=== PATIENT | female | born 1945 | race Caucasian/White ===

== ENCOUNTER → 2016-11-13 | Outpatient (CLI) | payer MEDICARE ==
[2016-11-13 11:25] LABS: Aty Lym Flag Slight; CH 30.9; CHCM 32.5; HCT 35.1 % (34.0-46.0); HDW 2.48; MCH 32.8 pg (25.0-35.0); MCHC 34.3 g/dL (31.0-37.0); MCV 95.6 fL (80.0-100.0); Mean Platelet Volume 7.8; RBC 3.68 m/uL (3.80-5.40); RDW 12.5 % (11.5-15.5); WBC 5.3 k/uL (3.8-10.6); WBC (Perox) 6.11
[2016-11-13 12:02] LABS: Calcium 9.7 mg/dL (8.4-10.2); Potassium 4.6 mmol/L (3.5-5.1); Total Protein 8.5 g/dL (6.3-8.2)
[2016-11-13 12:15] LABS: Hemoglobin A1C 5.2 % (4.2-6.1)
[2016-11-13 12:39] LABS: Add Differential Manual Differential
[2016-11-13 12:41] LABS: Manual Review Performed; Nucleated Red Blood Cells 0 /100 WBC (0-0); Total Cells Counted 100
== END | disposition home or self-care (01) ==
LOC: LABWHC1 10:12
PROVIDERS: ATTEND Internal Medicine Critical Care Medicine
DX: Z00.00 Encounter for general adult medical examination without abnormal findings (principal); J45.909 Unspecified asthma, uncomplicated; K21.9 Gastro-esophageal reflux disease without esophagitis; M19.90 Unspecified osteoarthritis, unspecified site; M81.0 Age-related osteoporosis without current pathological fracture
CPT/HCPCS: 36415; 80053; 80061; 82306; 83036; 84439; 84443; 85025

== ENCOUNTER → 2016-11-19 | Outpatient (CLI) | payer MEDICARE ==
--- NOTE | 2016-11-21 10:54 | MM ---
Reason for exam: screening (asymptomatic). Last mammogram was performed 1 year ago. History: Patient is postmenopausal and is nulliparous. Physical Findings: A clinical breast exam by your physician is recommended on an annual basis and results should be correlated with mammographic findings. MG 3D Screening Mammo W/Cad Bilateral CC and MLO view(s) were taken. Prior study comparison: November 14, 2015, bilateral MG 3d screening mammo w/cad. November 25, 2008, bilateral digital screening mammogram. The breast tissue is heterogeneously dense. This may lower the sensitivity of mammography. There is chronic nodularity bilaterally. There is no dominant lesion. No significant changes when compared with prior studies. ASSESSMENT: Benign, BI-RAD 2 RECOMMENDATION: Routine screening mammogram of both breasts in 1 year.
== END | disposition home or self-care (01) ==
LOC: RADMAMWWP 12:49
PROVIDERS: ATTEND Internal Medicine Critical Care Medicine
DX: Z12.31 Encounter for screening mammogram for malignant neoplasm of breast (principal)
CPT/HCPCS: 77063; G0202

== ENCOUNTER → 2016-12-07 | Outpatient (CLI) | payer MEDICARE ==
--- NOTE | 2016-12-07 16:00 | BD ---
EXAMINATION TYPE: MG DEXA axial skeleton. DATE OF EXAM: 12/07/2016 COMPARISON: 11.25.2007 CLINICAL HISTORY: M19.90 OSTOARTHRITIS, M81.0 OSTEOPOROSIS Height: 63.8 Weight: 185 FRAX RISK QUESTIONS: Alcohol (3 or more units per day): NO Family History (Parent hip fracture): POSSIBLY Glucocorticoids (More than 3mos): NO (Ex: prednisone, prednisolone, methylprednisolone, dexamethasone, and hydrocortisone). History of Fracture in Adulthood: YES Secondary Osteoporosis: NO 1. Type 1 Diabetes: NO 2. Hyperthyroidism: NO 3. Menopause before 45: NO 4. Malnutrition: NO 5. 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 COMPRESSION FXS IN LUMBAR SPINE.....SPINAL STENOSIS...SPINE NOT SCANNED Bone mineral density about the R hip (g/cm2): 0.826 Bone mineral density about the L hip (g/cm2): 0.858 T Score values are as follows: -----R Neck: -1.6 -----L Neck: -1.6 -----R Total: -1.4 -----L Total: -1.2 Bone mineral density has: Decreased -6.0ince study of: 11.25.2007 FRAX%'S: THERE IS A 25.2% CHANCE OF A MAJOR OSTEOPOROTIC FX AND A 9.9% CHANCE OF A HIP FX.....PRO BABILITY IN 10 YRS TIME IMPRESSION: Osteopenia (T Score between -2.5 and -1 as noted by T score values There is slightly increased risk of fracture and the patient may be considered for treatment. Re-Screen 2-5 years FOR BOTH OF HER HIPS. Bone density is diminished 6% within the bilateral hips from 11/25/2007 NOTE: T-SCORE=SD OF THE YOUNG ADULT MEAN.
== END | disposition home or self-care (01) ==
LOC: RADBDWWP 09:22
PROVIDERS: ATTEND Internal Medicine Critical Care Medicine
DX: M85.88 Other specified disorders of bone density and structure, other site (principal)
CPT/HCPCS: 77080

== ENCOUNTER → 2018-11-24 | Outpatient (CLI) | payer MEDICARE ==
[2018-11-24 12:44] LABS: Basophils % (A) 1 %; Eosinophils % (A) 20 %; HCT 33.2 % (34.0-46.0); HGB 10.7 gm/dL (11.4-16.0); Lymphocytes # (A) 1.1 k/uL (1.0-4.8); Lymphocytes % (A) 23 %; MCH 31.6 pg (25.0-35.0); MCHC 32.1 g/dL (31.0-37.0); MCV 98.4 fL (80.0-100.0); Mean Platelet Volume 7.1; Monocytes # (A) 0.4 k/uL (0-1.0); Monocytes % (A) 8 %; Neutrophils # (A) 2.1 k/uL (1.3-7.7); Neutrophils % (A) 45 %; Platelet Count 158 k/uL (150-450); RBC 3.37 m/uL (3.80-5.40); RDW 12.9 % (11.5-15.5); WBC 4.7 k/uL (3.8-10.6)
[2018-11-24 16:07] LABS: T4, Free (Free Thyroxine) 0.9 ng/dL (0.80-1.80)
[2018-11-24 16:27] LABS: African American GFR (CKD) 72.5 (60.0-200.0); Albumin 3.6 g/dL (3.80-4.90); Albumin/Globulin Ratio 0.95 (1.60-3.17); Anion Gap 4.6 mmol/L (4.00-12.00); BUN/Creat Ratio 32.22 Ratio (12.00-20.00); Calcium 9.1 mg/dL (8.7-10.3); Carbon Dioxide 26.4 mmol/L (21.6-31.8); Globulin 3.8 g/dL (1.6-3.3); LDL Cholesterol,Calculated 96.2 mg/dL (0.0-131.0); Potassium 4.4 mmol/L (3.5-5.5); Total Bilirubin 0.7 mg/dL (0.2-1.2); Total Protein 7.4 g/dL (6.2-8.2); Uric Acid 4.5 mg/dL (2.9-7.7); VLDL Calculation 12.8 mg/dL (5.00-40.00)
[2018-11-24 17:17] LABS: Hemoglobin A1C 5.3 % (4.0-6.0)
[2018-11-25 19:41] LABS: Iron Saturation 27.99 (12.00-45.00)
== END | disposition home or self-care (01) ==
LOC: LABWHC1 11:42
PROVIDERS: ATTEND Internal Medicine Critical Care Medicine
DX: Z00.00 Encounter for general adult medical examination without abnormal findings (principal); J45.909 Unspecified asthma, uncomplicated; E78.5 Hyperlipidemia, unspecified; E55.9 Vitamin D deficiency, unspecified; M81.0 Age-related osteoporosis without current pathological fracture
CPT/HCPCS: 36415; 80053; 80061; 82306; 82728; 83036; 83540; 83550; 84439; 84443; 84550; 85025

== ENCOUNTER → 2018-11-28 | Outpatient (CLI) | payer MEDICARE ==
--- NOTE | 2018-12-02 08:10 | MM ---
Reason for exam: screening (asymptomatic). Last mammogram was performed 2 years ago. History: Patient is postmenopausal and is nulliparous. Took hormonal contraceptives for 2 years. Physical Findings: A clinical breast exam by your physician is recommended on an annual basis and results should be correlated with mammographic findings. MG 3D Screening Mammo W/Cad Bilateral CC and MLO view(s) were taken. Prior study comparison: November 19, 2016, bilateral MG 3d screening mammo w/cad. November 14, 2015, bilateral MG 3d screening mammo w/cad. No significant changes when compared with prior studies. ASSESSMENT: Benign, BI-RAD 2 RECOMMENDATION: Routine screening mammogram of both breasts in 1 year.
== END | disposition home or self-care (01) ==
LOC: RADMAMWWP 09:45
PROVIDERS: ATTEND Internal Medicine Critical Care Medicine
DX: Z12.31 Encounter for screening mammogram for malignant neoplasm of breast (principal)
CPT/HCPCS: 77063; 77067

== ENCOUNTER → 2019-11-05 | Outpatient (CLI) | payer MEDICARE ==
[2019-11-05 15:00] LABS: Basophils % (A) 1 %; Eosinophils # (A) 0.9 k/uL (0-0.7); Eosinophils % (A) 21 %; Hypochromasia Slight; Lymphocytes # (A) 1.2 k/uL (1.0-4.8); Lymphocytes % (A) 30 %; MCH 16.2 pg (25.0-35.0); MCV 104.1 fL (80.0-100.0); Macrocytosis Slight; Mean Platelet Volume 7.8; Monocytes # (A) 0.3 k/uL (0-1.0); Monocytes % (A) 7 %; Neutrophils # (A) 1.6 k/uL (1.3-7.7); Neutrophils % (A) 37 %; Platelet Count 130 k/uL (150-450); RBC 3.36 m/uL (3.80-5.40); RDW 13.2 % (11.5-15.5); WBC 4.2 k/uL (3.8-10.6)
[2019-11-05 15:16] LABS: MCHC 15.6 g/dL (31.0-37.0)
[2019-11-05 15:17] LABS: HGB 10.7 gm/dL (11.4-16.0)
[2019-11-06 00:53] LABS: Albumin 3.4 g/dL (3.80-4.90); Albumin/Globulin Ratio 0.83 (1.60-3.17); Anion Gap 6.7 mmol/L (4.00-12.00); BUN/Creat Ratio 25.56 Ratio (12.00-20.00); Bilirubin, Conjugated 0.4 mg/dL (0.20-0.40); Bilirubin,Unconjugated 0.9 mg/dL; Calcium 9.4 mg/dL (8.7-10.3); Carbon Dioxide 26.3 mmol/L (21.6-31.8); Chol/HDL Ratio 2.91; Globulin 4.1 g/dL (1.6-3.3); LDL Cholesterol,Calculated 68.6 mg/dL (0.0-131.0); Non-African American GFR(CKD) 62.1 (60.0-200.0); Total Bilirubin 1.3 mg/dL (0.2-1.2); Total Protein 7.5 g/dL (6.2-8.2); VLDL Calculation 15.4 mg/dL (5.00-40.00)
== END | disposition home or self-care (01) ==
LOC: LABWHC1 13:48
PROVIDERS: ATTEND Internal Medicine Critical Care Medicine
DX: Z00.00 Encounter for general adult medical examination without abnormal findings (principal); E78.5 Hyperlipidemia, unspecified; R05 Cough; E55.9 Vitamin D deficiency, unspecified; Z79.899 Other long term (current) drug therapy
CPT/HCPCS: 36415; 80053; 80061; 82248; 84439; 84443; 85025

== ENCOUNTER → 2019-11-10 | Outpatient (CLI) | payer MEDICARE ==
[2019-11-10 12:19] LABS: Appearance,Urine Cloudy (Clear); Bacteria,Urine Moderate /hpf; Bilirubin,Urine Negative (Negative); Blood,Urine Negative (Negative); Color,Urine Light Yellow; Glucose,Urine (UA) Negative (Negative); Ketones,Urine Negative (Negative); Leukocyte Esterase,Urine Large (Negative); Nitrite,Urine Positive (Negative); Protein,Urine Negative (Negative); RBC,Urine 2 /hpf (0-5); Specific Gravity,Urine 1.008 (1.001-1.035); Urobilinogen,Urine <2.0 mg/dL (<2.0); WBC,Urine >182 /hpf (0-5)
[2019-11-10 17:52] LABS: % Iron Saturation 33.61 (12.00-45.00)
[2019-11-10 18:00] LABS: Ferritin 171.5 ng/mL (10.0-291.0)
== END | disposition home or self-care (01) ==
LOC: LABWHC1 11:19
PROVIDERS: ATTEND Internal Medicine Critical Care Medicine
DX: D64.9 Anemia, unspecified (principal); R53.83 Other fatigue; R82.998 Other abnormal findings in urine
CPT/HCPCS: 36415; 81001; 82728; 83540; 83550; 87077; 87086; 87186

== ENCOUNTER → 2020-02-09 | Outpatient (CLI) | payer MEDICARE ==
--- NOTE | 2020-02-11 10:38 | MM ---
Reason for exam: screening (asymptomatic). Last mammogram was performed 1 year and 2 months ago. History: Patient is postmenopausal and is nulliparous. Took hormonal contraceptives for 2 years. Physical Findings: A clinical breast exam by your physician is recommended on an annual basis and results should be correlated with mammographic findings. MG 3D Screening Mammo W/Cad Bilateral CC and MLO view(s) were taken. Prior study comparison: November 28, 2018, bilateral MG 3d screening mammo w/cad. November 19, 2016, bilateral MG 3d screening mammo w/cad. The breast tissue is heterogeneously dense. This may lower the sensitivity of mammography. No significant changes when compared with prior studies. ASSESSMENT: Benign, BI-RAD 2 RECOMMENDATION: Routine screening mammogram of both breasts in 1 year.
== END | disposition home or self-care (01) ==
LOC: RADMAMWWP 13:08
PROVIDERS: ATTEND Internal Medicine Critical Care Medicine
DX: Z12.31 Encounter for screening mammogram for malignant neoplasm of breast (principal)
CPT/HCPCS: 77063; 77067

== ENCOUNTER → 2020-10-24 | Outpatient (CLI) | payer MEDICARE ==
[2020-10-24 15:59] LABS: HCT 33.2 % (37.2-46.3); HGB 10.4 g/dL (12.0-15.0); MCH 32.9 pg (27.0-32.0); MCHC 31.3 g/dL (32.0-37.0); MCV 105.1 fL (80.0-97.0); Mean Platelet Volume 11.6 fL (9.5-12.2); Platelet Count 129 X 10*3/uL (140-440); RBC 3.16 X 10*6/uL (4.10-5.20)
[2020-10-24 18:08] LABS: Basophils # (A) 0.04 X 10*3/uL (0.00-0.10); Basophils % (A) 0.8 %; Monocytes # (A) 0.67 X 10*3/uL (0.20-1.00); Monocytes % (A) 13.4 %; Neutrophils # (A) 1.68 X 10*3/uL (1.80-7.70); Neutrophils % (A) 33.6 %
[2020-10-24 19:03] LABS: African American GFR (CKD) 62.9 (60.0-200.0); Albumin 3.2 g/dL (3.80-4.90); Albumin/Globulin Ratio 0.78 (1.60-3.17); Anion Gap 5.6 mmol/L (4.00-12.00); Calcium 9.4 mg/dL (8.7-10.3); Carbon Dioxide 23.4 mmol/L (21.6-31.8); Chol/HDL Ratio 2.72; Globulin 4.1 g/dL (1.6-3.3); LDL Cholesterol,Calculated 70.8 mg/dL (0.0-131.0); Non-African American GFR(CKD) 54.3 (60.0-200.0); Potassium 3.6 mmol/L (3.5-5.5); Total Protein 7.3 g/dL (6.2-8.2); VLDL Calculation 10.2 mg/dL (5.00-40.00)
[2020-10-24 19:13] LABS: T4, Free (Free Thyroxine) 0.8 ng/dL (0.80-1.80)
== END | disposition home or self-care (01) ==
LOC: LABWHC1 08:50
PROVIDERS: ATTEND Internal Medicine Critical Care Medicine
DX: Z00.00 Encounter for general adult medical examination without abnormal findings (principal); E78.5 Hyperlipidemia, unspecified; J45.909 Unspecified asthma, uncomplicated; M19.90 Unspecified osteoarthritis, unspecified site; D50.9 Iron deficiency anemia, unspecified; E55.9 Vitamin D deficiency, unspecified
CPT/HCPCS: 36415; 80053; 80061; 82306; 83036; 84439; 84443; 85025

== ENCOUNTER → 2020-11-18 | Outpatient (CLI) | payer MEDICARE ==
--- NOTE | 2020-11-21 14:57 | BD ---
EXAMINATION TYPE: Axial Bone Density DATE OF EXAM: 11/18/2020 COMPARISON: NONE CLINICAL HISTORY: Osteoporosis Height: 5 FT 4 1/4 IN Weight: 157 FRAX RISK QUESTIONS: Alcohol (3 or more units per day): NO Family History (Parent hip fracture): NO Glucocorticoids (More than 3mos): NO (Ex: prednisone, prednisolone, methylprednisolone, dexamethasone, and hydrocortisone). History of Fracture in Adulthood: YES Secondary Osteoporosis: 1. Type 1 Diabetes: NO 2. Hyperthyroidism: NO 3. Menopause before 45: NO 4. Malnutrition: NO 5. Chronic liver disease: NO Rheumatoid Arthritis: NO Current Tobacco Use: NO RISK FACTORS HISTORY OF: Surgery to Spine/Hip(right/left)/Wrist (right/left): NO Family History of Osteoporosis: UNSURE Active: YES Diet low in dairy products/other sources of calcium: NO Postmenopausal woman: IN HER 50'S Take estrogen and/or progesterone medications: NO Lost more than 2 inches in height since high school: YES MEDICATIONS: Additional Medications: NONE EXAM MEASUREMENTS: Bone mineral densitometry was performed using the [employer] System. Bone mineral density as measured about the Lumbar spine is: ----- L1-L4(G/cm2): 0.996 T Score Values are as follows: ----- L2: -1.6 ----- L3: -1.3 ----- L4: -1.8 ----- L1-L4: -1.5 Bone mineral density has: DECREASED -11. 4% since study of: 2017 Bone mineral density about the R hip (g/cm2): 0.776 Bone mineral density about the L hip (g/cm2): 0.777 T Score values are as follows: -----R Neck: -1.9 -----L Neck: -1.9 -----R Total: -19 -----L Total: -1.6 Bone mineral density has: Decreased 6.1 % since study of: 2017 IMPRESSION: Findings are consistent with osteopenia. Bone mineral density has decreased as described above. The r isk for major osteoporotic fracture is 34.6%. There is for hip fracture is 20.3%. This is based on 10 year probability of fracture. Medical treatment should be considered. Repeat evaluation in 2-5 years .
== END | disposition home or self-care (01) ==
LOC: RADBDWWP 14:06
PROVIDERS: ATTEND Internal Medicine Critical Care Medicine
DX: M85.89 Other specified disorders of bone density and structure, multiple sites (principal)
CPT/HCPCS: 77080

== ENCOUNTER → 2020-12-27 | Outpatient (CLI) | payer MEDICARE ==
[2020-12-27 15:17] LABS: HCT 30.5 % (34.0-46.0); HGB 10.3 gm/dL (11.4-16.0); MCH 35.4 pg (25.0-35.0); MCHC 33.7 g/dL (31.0-37.0); MCV 105.2 fL (80.0-100.0); Macrocytosis Slight; Mean Platelet Volume 8.4; Platelet Count 104 k/uL (150-450); RDW 13.2 % (11.5-15.5); WBC 6.1 k/uL (3.8-10.6)
[2020-12-27 15:31] LABS: Potassium 3.9 mmol/L (3.5-5.1)
== END | disposition home or self-care (01) ==
LOC: LABPAT 14:09
PROVIDERS: ATTEND Internal Medicine Interventional Cardiology
DX: Z01.812 Encounter for preprocedural laboratory examination (principal); R07.9 Chest pain, unspecified
CPT/HCPCS: 36415; 80051; 82565; 84520; 85027

== ENCOUNTER 2021-01-03 10:19 | Day surgery (SDC) | payer MEDICARE ==
[2020-12-30 11:11] VITALS: BMI 26.4
[~2021-01-03 10:19] MED LIST: ALPRAZolam 0.25 MG TAB PO PRN; ALPRAZolam 0.5 MG TAB PO PRN; ASPIRIN 325 MG TAB PO STA; HEPARIN SODIUM,PORCINE 10,000 UNIT in SODIUM CHLORIDE 0.9% 1,000 ML IRRIGATION PRN; HEPARIN SODIUM,PORCINE 2,500 UNIT in SODIUM CHLORIDE 0.9% 250 ML IRRIGATION PRN; NITROGLYCERIN SL TABS 0.4 MG TAB SUBLINGUAL PRN; SODIUM CHLORIDE 0.9% 1,000 ML in EMPTY BAG 1 BAG IV ONE
[2021-01-03] MEDS ORDERED: SODIUM CHLORIDE 0.9% 1,000 ML IV ONE (10:43)
[2021-01-03 11:08] LABS: HCT 35.4 % (34.0-46.0); HGB 11.8 gm/dL (11.4-16.0); MCH 34.4 pg (25.0-35.0); MCHC 33.2 g/dL (31.0-37.0); MCV 103.4 fL (80.0-100.0); Macrocytosis Slight; Mean Platelet Volume 7.7; Platelet Count 134 k/uL (150-450); RBC 3.42 m/uL (3.80-5.40); WBC 5.8 k/uL (3.8-10.6)
[2021-01-03 11:09] VITALS: RESP 16; TEMP 99
[2021-01-03] MEDS ORDERED: LIDOCAINE 1% INJ 10MG/ML (20 ML MDV) ONE (11:53)
[2021-01-03] MEDS ORDERED: VERAPAMIL 2.5 MG/ML 2 ML AMP ONE (11:59)
[2021-01-03 12:17] LABS: Band Neutrophils % 1 %; Lymphocytes # (M) 2.09 k/uL (1.0-4.8); Monocytes # (M) 0.99 k/uL (0-1.0); Neutrophils % (M) 27 %; Nucleated Red Blood Cells 0 /100 WBC (0-0); Total Cells Counted 100
[2021-01-03] MEDS ORDERED: fentaNYL (PF) 50 MCG/ML 2 ML AMP ONE (12:24)
[2021-01-03] MEDS ORDERED: HEPARIN SODIUM 1,000 UN/ML (10ML VL) ONE (12:24)
[2021-01-03] MEDS ORDERED: MIDAZOLAM 2 MG/2 ML VIAL IV ONE (12:27)
[2021-01-03] MEDS ORDERED: LIDOCAINE 1% INJ 10MG/ML (20 ML MDV) SQ ONE (12:28)
[2021-01-03] MEDS ORDERED: VERAPAMIL SYRINGE (5 MG/10 ML) INTRAARTER ONE (12:29)
[2021-01-03] MEDS ORDERED: HEPARIN SODIUM 1,000 UN/ML (10ML VL) IV ONE (12:34)
[2021-01-03] MEDS ORDERED: IOPAMIDOL-370 125ML BTL INJ ONE (12:36)
[2021-01-03] MEDS ORDERED: RX INFO: IV CONTRAST WAS GIVEN 1 EACH MISC MISCELLANE PRN (12:43)
[2021-01-03] MEDS ORDERED: SODIUM CHLORIDE 0.9% 1,000 ML IV SCH (12:45)
--- NOTE | 2021-01-03 13:15 | LTR ---
DATE OF SERVICE: 01/03/[address] Hood: Ms. Basia Hardy underwent today heart catheterization and that revealed mild nonobstructive coronary artery disease. I want to thank you for allowing me to participate in her care and please do not hesitate to call if you have any question or concerns. Sincerely, MMBASILL / IJN: [id number] /
--- NOTE | 2021-01-03 13:15 | CC ---
CARDIAC CATHETERIZATION REPORT DATE OF SERVICE: January 03, 2021. PERFORMING PHYSICIAN: Pérez Gonzalez MD. PROCEDURE PERFORMED: 1. Selective right and left coronary angiogram. 2. Left heart catheterization. INDICATION: Newly diagnosis cardiomyopathy. COMPLICATION: None. LEVEL OF SEDATION: Moderate with sedation length of 12 minutes. PROCEDURE DESCRIPTION: After obtaining an informed consent, the patient was brought to the cardiac biological lab technician. The right radial artery was cannulated using micropuncture technique, the micropuncture wire passed easily. Then I placed a 6-Polish sheath at the right radial artery. I gave the patient 2 mg of verapamil IA and 5000 units of heparin IV. Selective right and left coronary angiogram performed using JR4 and JL3.5 catheters. After that, I did left heart catheterization using the JR4 catheter which crossed the aortic valve. I did after that pullback across the valve. The procedure was completed without any complication. SELECTIVE CORONARY ANGIOGRAM: 1. The RCA is a large caliber vessel. It is a dominant vessel. The RCA has mild disease in the proximal portion. In the midportion it is angiographically normal. After that, bifurcates into PDA and PLV branches both appeared to be angiographically normal. 2. The left main is angiographically normal. Bifurcates into an LCX and LAD. 3. The LCX is a large caliber vessel and it is a nondominant vessel. The LCX appeared to be angiographically normal. It gives rise into a large OM branch which seems to be angiographically normal. 4. The LAD is a large caliber vessel. The LAD appeared to be also angiographically normal and gives rise into a large diagonal branch which seems to be angiographically. HEMODYNAMICS: The LVEDP was 10 to 12 mmHg without significant gradient across the aortic valve. CONCLUSION: 1. Mild nonobstructive disease involving the right coronary artery. 2. Normal LVEDP. POSTPROCEDURE MANAGEMENT: Medical treatment and follow up with the patient. MMODL / IJN: [id number] /
[2021-01-03 16:56] VITALS: BP 145/67; PULSE 69
== END 2021-01-03 17:14 | disposition home or self-care (01) ==
LOC: CATHCVL 10:19
PROVIDERS: ATTEND Internal Medicine Interventional Cardiology
DX: I42.9 Cardiomyopathy, unspecified (principal)
CPT/HCPCS: 93458; 85025; C1894; J2250; J2001; J1644; Q9967

== ENCOUNTER 2021-04-27 06:15 | Day surgery (SDC) | payer MEDICARE ==
[2021-04-25 14:07] VITALS: BMI 26.6
[2021-04-27 06:51] VITALS: TEMP 98.5
[2021-04-27] MEDS ORDERED: LACTATED RINGERS 1,000 ML IV ONE (07:00)
[2021-04-27] MEDS ORDERED: LIDOCAINE 1% INJ 10MG/ML (20 ML MDV) ONE (07:04)
[2021-04-27] MEDS ORDERED: PROPOFOL 10 MG/ML 20 ML VIAL IV ONE (07:04)
[2021-04-27] MEDS ORDERED: LACTATED RINGERS 1,000 ML IV SCH (07:12)
[2021-04-27] MEDS ORDERED: LIDOCAINE 1% (10MG/ML) FOR IV START INTRADERMA PRN (07:12)
[2021-04-27 07:26] VITALS: BP 125/72; PULSE 82; RESP 16
--- NOTE | 2021-04-27 09:46 | PCN ---
PROCEDURE NOTE DATE OF PROCEDURE: 04/27/2021. PREOP DIAGNOSIS: Multiple myeloma. POSTOP DIAGNOSIS: Multiple myeloma. ANESTHESIA: Local with IV systemic sedation. DETAILS: Utilizing a sterile technique, the skin overlying the right iliac crest was prepared with Betadine and alcohol. After adequate sterile draping, 1% local anesthesia and systemic sedation size 11 4 inch Jamshidi needle was utilized to access the periosteum with ease. A total of 16 mL of aspirate and a crushed 4 mm bone core biopsies were obtained. The patient tolerated the procedure very well. There was no immediate procedure related complications. TOTAL BLOOD LOSS: Less than 1 mL. Results pending. MMODL / IJN: [id number] /
[2021-04-27 12:23] LABS: HCT 38.2 % (34.0-46.0); HGB 12.1 gm/dL (11.4-16.0); MCH 33.8 pg (25.0-35.0); MCHC 31.8 g/dL (31.0-37.0); MCV 106.5 fL (80.0-100.0); Macrocytosis Moderate; Mean Platelet Volume 9.7; Platelet Count 145 k/uL (150-450); RBC 3.59 m/uL (3.80-5.40); RDW 13.9 % (11.5-15.5); Reticulocyte % 1.9 % (0.5-2.0); WBC 5.7 k/uL (3.8-10.6)
[2021-04-27 13:02] LABS: Basophils # (M) 0.06 k/uL (0-0.2); Eosinophils # (M) 0.91 k/uL (0-0.7); Lymphocytes # (M) 1.37 k/uL (1.0-4.8); Monocytes # (M) 0.34 k/uL (0-1.0); Neutrophils # (M) 3.02 k/uL (1.3-7.7); Neutrophils % (M) 53 %; Nucleated Red Blood Cells 0 /100 WBC (0-0); Total Cells Counted 100
[2021-04-27 13:03] LABS: Anisocytosis (M) Present; Poikilocytosis (M) Present
== END 2021-04-27 07:50 | disposition home or self-care (01) ==
LOC: OR 06:15
PROVIDERS: ATTEND Internal Medicine Hematology & Oncology
DX: D69.6 Thrombocytopenia, unspecified (principal); C90.00 Multiple myeloma not having achieved remission; D64.89 Other specified anemias; D47.2 Monoclonal gammopathy; Z98.890 Other specified postprocedural states; Z80.6 Family history of leukemia; Z86.19 Personal history of other infectious and parasitic diseases; Z79.899 Other long term (current) drug therapy; Z88.0 Allergy status to penicillin; Z88.8 Allergy status to other drugs, medicaments and biological substances
CPT/HCPCS: 85025; 85045; 38222; J2001; J2704

== ENCOUNTER → 2021-11-10 | Outpatient (CLI) | payer MEDICARE ==
[2021-11-10 12:01] LABS: HCT 35.7 % (34.0-46.0); HGB 11.6 gm/dL (11.4-16.0); Hypochromasia Slight; MCHC 32.4 g/dL (31.0-37.0); MCV 108.1 fL (80.0-100.0); Macrocytosis Moderate; Mean Platelet Volume 8.7; Platelet Count 111 k/uL (150-450); RDW 13.4 % (11.5-15.5); WBC 5.6 k/uL (3.8-10.6)
[2021-11-10 15:33] LABS: Eosinophils # (M) 1.01 k/uL (0-0.7); Lymphocytes # (M) 1.96 k/uL (1.0-4.8); Neutrophils # (M) 2.13 k/uL (1.3-7.7); Neutrophils % (M) 38 %; Nucleated Red Blood Cells 0 /100 WBC (0-0); Total Cells Counted 100
[2021-11-10 15:49] LABS: ALT 39 U/L (8-44); AST 73 U/L (13-35); African American GFR (CKD) 53.3 (60.0-200.0); Albumin 3.1 g/dL (3.8-4.9); Albumin/Globulin Ratio 0.67 (1.60-3.17); Alkaline Phosphatase 165 U/L (41-126); BUN/Creat Ratio 25.18 Ratio (12.00-20.00); Bilirubin, Conjugated 0.34 mg/dL (0.20-0.40); Bilirubin,Unconjugated 0.63 mg/dL (0.20-1.00); Blood Urea Nitrogen 28.7 mg/dL (9.0-27.0); Calcium 8.8 mg/dL (8.7-10.3); Carbon Dioxide 21.3 mmol/L (20.0-27.5); Chloride 109 mmol/L (96-109); Chol/HDL Ratio 2.89 Ratio; Globulin 4.6 g/dL (1.6-3.3); Glucose 90 mg/dL (70-110); LDL Cholesterol,Calculated 70.6 mg/dL (0.0-131.0); Potassium 4.2 mmol/L (3.5-5.5); Sodium 141 mmol/L (135-145); Total Protein 7.7 g/dL (6.2-8.2); VLDL Calculation 13.66 mg/dL (5.00-40.00)
[2021-11-10 18:13] LABS: Estimated Average Glucose UNC
== END | disposition home or self-care (01) ==
LOC: LABWHC1 09:46
PROVIDERS: ATTEND Internal Medicine Critical Care Medicine
DX: Z00.00 Encounter for general adult medical examination without abnormal findings (principal); I34.1 Nonrheumatic mitral (valve) prolapse; E55.9 Vitamin D deficiency, unspecified; E78.5 Hyperlipidemia, unspecified; D50.9 Iron deficiency anemia, unspecified; J45.909 Unspecified asthma, uncomplicated; M19.90 Unspecified osteoarthritis, unspecified site
CPT/HCPCS: 36415; 80053; 80061; 82248; 82306; 83036; 84439; 84443; 85025

== ENCOUNTER → 2021-12-05 | Outpatient (CLI) | payer MEDICARE ==
--- NOTE | 2021-12-05 15:21 | US ---
EXAMINATION TYPE: US kidneys/renal and bladder DATE OF EXAM: 12/05/2021 COMPARISON: NONE CLINICAL HISTORY: N25.9 DISORDER RSLT FROM IMPAIRED RENAL TUBULAR FU. Abnormal labs EXAM MEASUREMENTS: Right Kidney: 10.4 x 4.6 x 4.3 cm Left Kidney: 10.0 x 4.2 x 4.6 cm Right Kidney: No hydronephrosis or masses seen Left Kidney: No hydronephrosis or masses seen Bladder: Anechoic Bilateral Jets seen: Yes There is no evidence for hydronephrosis at this point in time. No nephrolithiasis is seen. No vicky s are identified. The urinary bladder is anechoic. Bilateral ureteral jets are seen. IMPRESSION: No hydronephrosis or nephrolithiasis.
== END | disposition home or self-care (01) ==
LOC: RADUSWWP 14:43
PROVIDERS: ATTEND Internal Medicine Critical Care Medicine
DX: N25.9 Disorder resulting from impaired renal tubular function, unspecified (principal)
CPT/HCPCS: 76770

== ENCOUNTER → 2022-01-18 | Outpatient (CLI) | payer MEDICARE ==
[2022-01-18 15:07] LABS: HCT 34.5 % (37.2-46.3); HGB 10.9 g/dL (12.0-15.0); MCH 33.4 pg (27.0-32.0); MCHC 31.6 g/dL (32.0-37.0); MCV 105.8 fL (80.0-97.0); Mean Platelet Volume 11.2 fL (9.5-12.2); NRBC Per 100 WBC 0 /100 WBCS (0.0-0.0); Platelet Count 122 X 10*3/uL (140-440); RBC 3.26 X 10*6/uL (4.10-5.20); RDW 14.5 % (11.5-14.5); WBC 5.36 X 10*3/uL (4.50-10.00)
[2022-01-18 16:00] LABS: Albumin 3.2 g/dL (3.8-4.9); Albumin/Globulin Ratio 0.67 (1.60-3.17); Anion Gap 8.4 mmol/L (10.00-18.00); BUN/Creat Ratio 27.44 Ratio (12.00-20.00); Blood Urea Nitrogen 25.9 mg/dL (9.0-27.0); Calcium 9.5 mg/dL (8.7-10.3); Carbon Dioxide 24.8 mmol/L (20.0-27.5); Globulin 4.8 g/dL (1.6-3.3); Non-African American GFR(CKD) 57.8 (60.0-200.0); Potassium 3.7 mmol/L (3.5-5.5); Total Bilirubin 1.1 mg/dL (0.30-1.20)
[2022-01-18 16:01] LABS: Phosphorus 3.4 mg/dL (2.4-5.1)
[2022-01-18 17:06] LABS: Basophils # (A) 0.04 X 10*3/uL (0.00-0.10); Basophils % (A) 0.7 %; Eosinophils # (A) 0.97 X 10*3/uL (0.04-0.35); Eosinophils % (A) 18.1 %; Immature Grans, Automated 0.2 %; Lymphocytes # (A) 1.83 X 10*3/uL (0.90-5.00); Lymphocytes % (A) 34.1 %; Macrocytosis (M) 3+; Monocytes # (A) 0.76 X 10*3/uL (0.20-1.00); Monocytes % (A) 14.2 %; Neutrophils # (A) 1.75 X 10*3/uL (1.80-7.70); Neutrophils % (A) 32.7 %
[2022-01-18 18:26] LABS: Appearance,Urine Clear (Clear); Bilirubin,Urine Negative (Negative); Blood,Urine Negative (Negative); Color,Urine Yellow (Yellow); Ketones,Urine Negative (Negative); Nitrite,Urine Negative (Negative); PH, Urine 6.5 (5.0-8.0); Specific Gravity,Urine 1.016 (1.001-1.030)
[2022-01-18 18:34] LABS: Bacteria,Urine None Seen /HPF (None Seen)
== END | disposition home or self-care (01) ==
LOC: LABWHC1 08:19
PROVIDERS: ATTEND Internal Medicine Critical Care Medicine
DX: N25.9 Disorder resulting from impaired renal tubular function, unspecified (principal)
CPT/HCPCS: 36415; 80053; 81001; 84100; 85025

== ENCOUNTER → 2022-03-20 | Outpatient (CLI) | payer MEDICARE | END | disposition home or self-care (01) | LOC: LABPAT 11:26 | PROVIDERS: ATTEND Internal Medicine | DX: N18.2 Chronic kidney disease, stage 2 (mild) (principal) | CPT/HCPCS: 80051; 82565; 84520; 85025; 85610; 85730; 86850; 86900; 86901 ==

== ENCOUNTER 2022-03-22 07:56 | Day surgery (SDC) | payer MEDICARE ==
[2022-03-20 12:00] LABS: Basophils % (A) 1 %; Eosinophils # (A) 0.9 k/uL (0-0.7); Eosinophils % (A) 18 %; HCT 34.2 % (34.0-46.0); HGB 11.3 gm/dL (11.4-16.0); Hypochromasia Slight; Lymphocytes # (A) 1.4 k/uL (1.0-4.8); Lymphocytes % (A) 30 %; MCHC 33.1 g/dL (31.0-37.0); MCV 105.7 fL (80.0-100.0); Macrocytosis Moderate; Mean Platelet Volume 8.8; Monocytes # (A) 0.5 k/uL (0-1.0); Monocytes % (A) 10 %; Neutrophils # (A) 1.8 k/uL (1.3-7.7); Neutrophils % (A) 38 %; Platelet Count 108 k/uL (150-450); RBC 3.24 m/uL (3.80-5.40); RDW 13.5 % (11.5-15.5); WBC 4.7 k/uL (3.8-10.6)
[2022-03-20 12:08] LABS: Potassium 3.4 mmol/L (3.5-5.1)
[2022-03-20 12:15] LABS: INR 1.2 (<1.2); Partial Thromboplastin Time 26.1 sec (22.0-30.0); Prothrombin Time 12.7 sec (9.0-12.0)
[2022-03-22] MEDS ORDERED: DESMOPRESSIN ACETATE 20 MCG in SODIUM CHLORIDE 0.9% 50 ML IVPB ONE (09:00)
[2022-03-22] MEDS ORDERED: ALPRAZolam 0.25 MG TAB PO STA (09:05)
--- NOTE | 2022-03-22 10:55 | CT ---
EXAMINATION TYPE: CT biopsy renal LT DATE OF EXAM: 03/22/2022 COMPARISON: NONE HISTORY: Left renal biopsy, CKD stage 2 CT DLP: 136.5 mGycm The procedure was explained to the patient. The risks, complications, benefits, and alternatives wer e discussed and any questions were answered. Informed consent was obtained. Patient was placed pron e on the CT table and prepped and draped in the usual sterile fashion. Utilizing CT guidance, an 18 gauge core biopsy needle access into the left renal cortex was achieved and three 18 gauge core samples were obtained. The patient was stable throughout the procedure and r emained stable upon discharge. IMPRESSION: Successful 18 gauge core biopsy of the kidney function.
[2022-03-22 15:33] VITALS: TEMP 97.9
[2022-03-22 15:40] VITALS: RESP 17
[2022-03-22 15:43] VITALS: BP 143/66; PULSE 61
== END 2022-03-22 15:07 | disposition home or self-care (01) ==
LOC: RADPROMAIN 07:56 → 6NMEDSUR 10:19 → RADPROMAIN 15:07
PROVIDERS: ATTEND Nurse Practitioner Acute Care
DX: N18.2 Chronic kidney disease, stage 2 (mild) (principal)
CPT/HCPCS: 86900; 86901; 80051; 82565; 84520; 85025; 85610; 85730; 86850; 50200; 77012; J2597

== ENCOUNTER → 2022-03-28 | Outpatient (CLI) | payer MEDICARE ==
[2022-03-28 18:32] LABS: Basophils # (A) 0.06 X 10*3/uL (0.00-0.10); Eosinophils # (A) 1.19 X 10*3/uL (0.04-0.35); Eosinophils % (A) 20.1 %; HCT 34.4 % (37.2-46.3); HGB 11.2 g/dL (12.0-15.0); Immature Grans, Automated 0.2 %; Lymphocytes # (A) 2.02 X 10*3/uL (0.90-5.00); Lymphocytes % (A) 34.1 %; MCH 33.5 pg (27.0-32.0); MCHC 32.6 g/dL (32.0-37.0); Monocytes # (A) 0.78 X 10*3/uL (0.20-1.00); Monocytes % (A) 13.2 %; NRBC Per 100 WBC 0 /100 WBCS (0.0-0.0); Neutrophils # (A) 1.87 X 10*3/uL (1.80-7.70); Neutrophils % (A) 31.4 %; Platelet Count 136 X 10*3/uL (140-440); RBC 3.34 X 10*6/uL (4.10-5.20); RDW 14.5 % (11.5-14.5); WBC 5.93 X 10*3/uL (4.50-10.00)
[2022-03-28 19:50] LABS: African American GFR (CKD) 55.7 (60.0-200.0); BUN/Creat Ratio 22.36 Ratio (12.00-20.00); Blood Urea Nitrogen 24.6 mg/dL (9.0-27.0); Calcium 9.2 mg/dL (8.7-10.3); Magnesium 2.4 mg/dL (1.5-2.4); Potassium 4.3 mmol/L (3.5-5.5)
[2022-03-28 20:05] LABS: Haptoglobin <10.0 mg/dL (31.2-198.0)
[2022-03-28 21:34] LABS: Cardiolipin Ab IgG Interp NEGATIVE (NEGATIVE); Cardiolipin Ab IgM Interp Positive (NEGATIVE); Cardiolipin IgA Antibody 47.7 U/mL; Cardiolipin IgM Antibody 30.1 U/mL; Scleroderma SC-70 Ab <0.2 AI
[2022-03-29 11:46] LABS: APTT 50 Sec(s) (<43); APTT 1:1 Mix 40 Sec(s) (<43); Dilute Russell Viper Venom 36 Sec(s) (<44)
== END | disposition home or self-care (01) ==
LOC: LABWHC1 13:28
PROVIDERS: ATTEND Nurse Practitioner Acute Care
DX: E83.42 Hypomagnesemia (principal); M31.10 Thrombotic microangiopathy, unspecified
CPT/HCPCS: 36415; 80048; 82232; 83010; 83615; 83735; 85025; 85613; 85730; 86147; 86235

== ENCOUNTER → 2022-10-27 | Outpatient (CLI) | payer MEDICARE ==
[2022-10-28 08:24] LABS: Creatine Kinase 202 U/L (26-186); Rheumatoid Factor, Qnt <15 IU/mL (0-15)
[2022-10-29 10:58] LABS: Aldolase 6.1 U/L (1.2-7.6)
== END | disposition home or self-care (01) ==
LOC: LABWHC1 09:42
PROVIDERS: ATTEND Internal Medicine Critical Care Medicine
DX: M19.90 Unspecified osteoarthritis, unspecified site (principal); J45.909 Unspecified asthma, uncomplicated; D50.9 Iron deficiency anemia, unspecified; N28.9 Disorder of kidney and ureter, unspecified; E78.5 Hyperlipidemia, unspecified
CPT/HCPCS: 36415; 82085; 82550; 83519; 85652; 86038; 86039; 86140; 86141; 86431

== ENCOUNTER → 2022-11-26 | Outpatient (CLI) | payer MEDICARE ==
[2022-11-27 02:45] LABS: Complement C3 81.8 mg/dL (80.0-207.0)
[2022-11-27 02:59] LABS: Hepatitis A Antibody IgM Nonreactive; Hepatitis B Core IgM Nonreactive; Hepatitis B Surface Antigen Nonreactive; Hepatitis C IgG Antibody Nonreactive
[2022-11-27 03:16] LABS: DNA Double-Stranded POSITIVE
[2022-11-27 03:18] LABS: ALT 45 U/L (8-44); AST 73 U/L (13-35); Albumin 3.1 d/dL (3.8-4.9); Albumin/Globulin Ratio 0.76 Ratio (1.60-3.17); Alkaline Phosphatase 156 U/L (41-126); Blood Urea Nitrogen 30.8 mg/dL (9.0-27.0); Calcium 8.9 mg/dL (8.7-10.3); Carbon Dioxide 27.1 mmol/L (21.6-31.8); Chloride 107 mmol/L (96-109); Globulin 4.1 d/dL (1.6-3.3); Glucose 100 mg/dL (70-110); Sodium 141 mmol/L (135-145); Total Bilirubin 1.8 mg/dL (0.3-1.2); Total Protein 7.2 d/dL (6.2-8.2)
[2022-11-27 03:39] LABS: HIV 2 AB Non-Reactive (Non-Reactive); HIV AB P24 Non-Reactive (Non-Reactive); HIV P24 AG Non-Reactive (Non-Reactive)
[2022-11-27 14:04] LABS: C-ANCA <1:20 Titer (<1:20)
[2022-11-27 14:09] LABS: Anti-Glomerular Basement Memb <1.5 U/mL (<7.0)
[2022-11-27 14:57] LABS: ANA Pattern PERI
== END | disposition home or self-care (01) ==
LOC: LABWHC1 15:19
PROVIDERS: ATTEND Nurse Practitioner Acute Care
DX: N18.2 Chronic kidney disease, stage 2 (mild) (principal); N39.0 Urinary tract infection, site not specified; R80.9 Proteinuria, unspecified
CPT/HCPCS: 36415; 80053; 80074; 83516; 83883; 86038; 86039; 86160; 86162; 86225; 86255; 86334; 87390

== ENCOUNTER → 2023-01-02 | Outpatient (CLI) | payer MEDICARE ==
[2023-01-03 02:49] LABS: Creatine Kinase 221 U/L (26-186)
[2023-01-03 02:54] LABS: BUN/Creat Ratio 21.38 Ratio (12.00-20.00); Blood Urea Nitrogen 27.8 mg/dL (9.0-27.0); Calcium 9.4 mg/dL (8.7-10.3); Carbon Dioxide 27.7 mmol/L (21.6-31.8); Chloride 105 mmol/L (96-109); Glucose 93 mg/dL (70-110); Potassium 3.8 mmol/L (3.5-5.5); Sodium 142 mmol/L (135-145)
== END | disposition home or self-care (01) ==
LOC: LABWHC1 13:40
PROVIDERS: ATTEND Psychiatry & Neurology Neurology
DX: G72.9 Myopathy, unspecified (principal); E87.6 Hypokalemia; R53.1 Weakness
CPT/HCPCS: 36415; 80048; 82550

== ENCOUNTER → 2023-01-10 | Outpatient (CLI) | payer MEDICARE ==
--- NOTE | 2023-01-10 11:47 | MR ---
EXAMINATION TYPE: MR lumbar spine wo con DATE OF EXAM: 01/10/2023 COMPARISON: 02/09/2014 HISTORY: Low back pain occasionally into legs more on left TECHNIQUE: Multiplanar, multisequence images of the lumbar spine were acquired without IV contrast. There appears to be a transitional lumbar vertebral segment with partial lumbarization of S1 suspecte d and rudimentary S1-S2 disc. Prior to any scheduled intervention radiographic localization is advise d. L1-L2: Normal disc appearance without desiccation. No herniation, protrusion or disc bulging. No ca nal stenosis is present. Foramina are patent bilaterally. L2-L3: Mild disc desiccation with posterior disc bulge. Effacement of the ventral thecal sac without evidence for central stenosis or lateral recess stenosis. There is moderate bilateral foraminal encro achment. L3-L4: Mild to moderate disc desiccation with the circumferential disc bulge greatest posteriorly. Th ere is mild central stenosis seen. There is mild bilateral foraminal encroachment. L4-L5: Moderate disc desiccation. Grade 1 anterolisthesis L4 and L5 of 4 mm. Posterior disc bulge wit h hypertrophy of the ligamentum flavum and facet joint arthropathy resulting in severe central stenos is. Mild bilateral foraminal encroachment. L5-S1: Moderate to severe disc desiccation. Circumferential disc bulge greatest posteriorly. Mild tisha tral stenosis and right lateral recess stenosis. Bilateral foraminal encroachment moderate in degree. Lumbar segments are intact. No paraspinal masses are identified. Conus medullaris has a normal appe arance. IMPRESSION: 1. Multilevel degenerative disc disease. 2. Severe central stenosis at L4-5 with mild central stenosis at L3-4 and L5-S1.
== END | disposition home or self-care (01) ==
LOC: RADMRIMAIN 10:26
PROVIDERS: ATTEND Psychiatry & Neurology Neurology
DX: M51.16 Intervertebral disc disorders with radiculopathy, lumbar region (principal); M48.061 Spinal stenosis, lumbar region without neurogenic claudication
CPT/HCPCS: 72148

== ENCOUNTER 2023-02-04 09:54 | Inpatient (IN) | payer MEDICARE ==
[2023-02-04] MEDS ORDERED: SODIUM CHLORIDE 0.9% 500 ML 500 ML IV STA (10:00)
--- NOTE | 2023-02-04 10:35 | ED ---
General Adult HPI - General Chief complaint: Weakness Stated complaint: Weakness Time Seen by Provider: 02/04/23 10:00 Source: patient, EMS, RN notes reviewed, old records reviewed Mode of arrival: EMS Limitations: physical limitation - History of Present Illness Initial comments: This is a 77-year-old female who presents emergency Department complaining of generalized weakness. Patient states for the last couple of years she's beginning slowly weaker and the catheter why except for the fact she has spinal stenosis. Patient states today she was unable to get up on around and that is new symptom that she not had before. Patient denies any injury. Patient states when she did get up she was able to walk a little but she was very unsteady. Patient denies any fever chills per patient chest pain difficult breathing first breath per patient denies any abdominal pain patient denies nausea vomiting diarrhea. - Related Data Home Medications Medication Instructions Recorded Confirmed Cyanocobalamin (Vitamin B-12) 1,000 mcg PO DAILY 12/30/20 02/04/23 [Vitamin B-12] Ferrous Sulfate [Iron (65 MG 325 mg PO DAILY 12/30/20 02/04/23 Elemental)] Vit C/E/Zn/Coppr/Lutein/Zeaxan 2 cap PO BID 12/30/20 02/04/23 [Preservision Areds 2 Softgel] Cholecalciferol (Vitamin D3) 125 mcg PO DAILY 04/25/21 02/04/23 [Vitamin D3 (125 MCG = 5,000 IU)] Metoprolol Succinate (ER) [Toprol 50 mg PO HS 04/25/21 02/04/23 Xl] Calcium Carbonate/Vitamin D3 1 tab PO DAILY 02/04/23 02/04/23 [Calcium 600-Vit D3 10 mcg (400 Iu)] Folic Acid 1 mg PO DAILY 02/04/23 02/04/23 Furosemide [Lasix] 40 mg PO DAILY 02/04/23 02/04/23 Magnesium Oxide [Mag-Ox] 400 mg PO DAILY 02/04/23 02/04/23 Potassium Chloride ER [K-Dur 10] 10 meq PO DAILY 02/04/23 02/04/23 dexAMETHasone [Decadron Elixir] 0.5 mg PO QID 02/04/23 02/04/23 Allergies Allergy/AdvReac Type Severity Reaction Status Date / Time omeprazole [From Prilosec] Allergy Unknown Rash/Hives, Verified 02/04/23 13:38 TONGUE SWELLLING omeprazole magnesium Allergy Unknown Rash/Hives, Verified 02/04/23 13:38 [From Prilose] TONGUE SWELLLING Penicillins Allergy Unknown Rash/Hives/ Verified 02/04/23 13:38 Itching carvedilol Allergy shortness Verified 02/04/23 13:38 of breath lisinopril Allergy Unknown Verified 02/04/23 13:38 Review of Systems ROS Statement: Those systems with pertinent positive or pertinent negative responses have been documented in the HPI. ROS Other: All systems not noted in ROS Statement are negative. Past Medical History Past Medical History: Asthma, Eye Disorder, Hypertension, Musculoskeletal Disorder, Osteoarthritis (OA) Additional Past Medical History / Comment(s): ENVIRONMENTAL ALLERGIES, ASTHMA(NO CURRENT MEDS), BACK STENOSIS, AUTOIMMUNE DISEASE History of Any Multi-Drug Resistant Organisms: None Reported Past Surgical History: Heart Catheterization Additional Past Surgical History / Comment(s): EYE SURGERY DUE TO INJURY, EGD, COLONOSCOPY, BONE MARROW BIOPSY, cataracs Past Anesthesia/Blood Transfusion Reactions: No Reported Reaction Past Psychological History: No Psychological Hx Reported Smoking Status: Never smoker Past Alcohol Use History: Occasional Past Drug Use History: None Reported - Past Family History Sister(s) Family Medical History: Cancer Additional Family Medical History / Comment(s): LEUKEMIA. Brother(s) Family Medical History: Cancer General Exam - General Exam Comments Initial Comments: GENERAL: Patient is well-developed and well-nourished. Patient is nontoxic and well- hydrated and is in no acute distress. ENT: Neck is soft and supple. No significant lymphadenopathy is noted. Oropharynx is clear. Moist mucous membranes. Neck has full range of motion without eliciting any pain. EYES: The sclera were anicteric and conjunctiva were pink and moist. Extraocular movements were intact and pupils were equal round and reactive to light. Eyelids were unremarkable. PULMONARY: Unlabored respirations. Good breath sounds bilaterally. No audible rales rhonchi or wheezing was noted. CARDIOVASCULAR: There is a regular rate and rhythm without any murmurs gallops or rubs. ABDOMEN: Soft and nontender with normal bowel sounds. SKIN: Skin is clear with no lesions or rashes and otherwise unremarkable. NEUROLOGIC: Patient is alert and oriented x3. Cranial nerves II through XII are grossly intact. Motor and sensory are also intact. Normal speech, volume and content. Symmetrical smile. MUSCULOSKELETAL: Normal extremities with adequate strength and full range of motion. LYMPHATICS: No significant lymphadenopathy is noted PSYCHIATRIC: Normal psychiatric evaluation. Limitations: physical limitation Course Vital Signs 02/04/23 02/04/23 09:59 10:06 Temperature 100.0 F H Pulse Rate 83 84 Respiratory 17 20 Rate Blood Pressure 121/57 130/68 O2 Sat by Pulse 97 96 Oximetry Medical Decision Making - Medical Decision Making EKG is interpreted by myself. EKG shows a sinus rhythm at 82 bpm TN interval is 227 QRS is 170 QRS T intervals 463 QTC is 502. Patient has a left bundle branch block. Was pt. sent in by a medical professional or institution (ODALIS Valverde, SENIOR MATERIALS SCIENTIST, urgent care, hospital, or fpc...) When possible be specific @ -[No] Did you speak to anyone other than the patient for history (EMS, parent, family, police, friend...)? What history was obtained from this source @ -[No] Did you review nursing and triage notes (agree or disagree)? Why? @ -[I reviewed and agree with nursing and triage notes] Were old charts reviewed (outside hosp., previous admission, EMS record, old EKG, old radiological studies, urgent care reports/EKG's, fpc records)? Report findings @ -I reviewed prior charts from prior lab work on this patient Differential Diagnosis (chest pain, altered mental status, abdominal pain women, abdominal pain men, vaginal bleeding, weakness, fever, dyspnea, syncope, headache, dizziness, GI bleed, back pain, seizure, CVA, palpatations, mental health, musculoskeletal)? @ -Differential Fever: Pneumonia, viral URI, endocarditis, myocarditis, pericarditis, otitis, sinusitis, peritonsillar Abscess, retropharyngeal Abscess, epiglottitis, peritonitis, appendicitis, Lisandra cystitis, diverticulitis, hepatitis, colitis, UTI, PID, TOA, pyelonephritis, prostatitis, epididymitis, meningitis, encephalitis, pulmonary embolism, CVA, thyroid storm, pancreatitis, adrenal crisis, cavernous sinus thrombosis, this is not meant to be an all-inclusive list. EKG interpreted by me (3pts min.). @ -[As above] X-rays interpreted by me (1pt min.). @ -Chest x-ray shows mild pulmonary edema with a possible left lower lobe infiltrate pneumonia was diagnosed at 3:[address] interpreted by me (1pt min.). @ -[None done] U/S interpreted by me (1pt. min.). @ -[None done] What testing was considered but not performed or refused? (CT, X-rays, U/S, labs)? Why? @ -[None] What meds were considered but not given or refused? Why? @ -[None] Did you discuss the management of the patient with other professionals (professionals i.e. , PA, SENIOR MATERIALS SCIENTIST, lab, RT, psych nurse, administrator social welfare, corporation lawyer, teacher, protection officer, case managers)? Give summary @ -Spoke with Dr. Salazar he agreed to admit the patient Was smoking cessation discussed for >3mins.? @ -[No] Was critical care preformed (if so, how long)? @ -[No] Were there social determinants of health that impacted care today? How? (Homelessness, low income, unemployed, alcoholism, drug addiction, transportation, low edu. Level, literacy, decrease access to med. care, skilled nursing, rehab)? @ -[No] Was there de-escalation of care discussed even if they declined (Discuss DNR or withdrawal of care, Hospice)? DNR status @ -[No] What co-morbidities impacted this encounter? (DM, HTN, Smoking, COPD, CAD, Cancer, CVA, ARF, Chemo, Hep., AIDS, mental health diagnosis, sleep apnea, morbid obesity)? @ -[None] Was patient admitted / discharged? Hospital course, mention meds given and route, prescriptions, significant lab abnormalities, going to OR and other pertinent info. @ -Patient was given Lasix for the mild pulmonary edema. Patient was started on Rocephin for the possible pneumonia. I consulted Dr. Pringle and Dr. Alvarez. I admitted the patient to Dr. Salazar. Undiagnosed new problem with uncertain prognosis? @ -[No] Drug Therapy requiring intensive monitoring for toxicity (Heparin, Nitro, Insu gavin, Cardizem)? @ -[No] Were any procedures done? @ -[No] Diagnosis/symptom? @ -Pulmonary edema Acute, or Chronic, or Acute on Chronic? @ -Acute Uncomplicated (without systemic symptoms) or Complicated (systemic symptoms)? @ -Complicated Side effects of treatment? @ -[No] Exacerbation, Progression, or Severe Exacerbation? @ -[No] Poses a threat to life or bodily function? How? (Chest pain, USA, OR, pneumonia, PE, COPD, DKA, ARF, appy, cholecystitis, CVA, Diverticulitis, Homicidal, Suicidal, threat to staff... and all critical care pts) @ -Associated with hypoxia and and organ dysfunction Diagnosis/symptom? @ -Pneumonia Acute, or Chronic, or Acute on Chronic? @ -Acute Uncomplicated (without systemic symptoms) or Complicated (systemic symptoms)? @ -Complicated Side effects of treatment? @ -[none] Exacerbation, Progression, or Severe Exacerbation] @ -[no] Poses a threat to life or bodily function? @ -Yes this did lead to sepsis and end organ dysfunction Diagnosis/symptom? @ -Spinal stenosis Acute, or Chronic, or Acute on Chronic? @ -chronic Uncomplicated (without systemic symptoms) or Complicated (systemic symptoms)? @ -[default] Side effects of treatment? @ -[none] Exacerbation, Progression, or Severe Exacerbation] @ -[no] Poses a threat to life or bodily function? @ -[no] - Lab Data Result diagrams: 02/04/23 10:07 02/04/23 10:07 Lab Results 02/04/23 02/04/23 02/04/23 Range/Units 10:04 10:07 10:07 WBC 14.3 H (3.8-10.6) k/uL RBC 3.36 L (3.80-5.40) m/uL Hgb 12.0 (11.4-16.0) gm/dL Hct 35.6 (34.0-46.0) % MCV 106.2 H (80.0-100.0) fL MCH 35.7 H (25.0-35.0) pg MCHC 33.6 (31.0-37.0) g/dL RDW 13.9 (11.5-15.5) % Plt Count 92 L (150-450) k/uL MPV 8.1 Neutrophils % 81 % Lymphocytes % 6 % Monocytes % 9 % Eosinophils % 2 % Basophils % 0 % Neutrophils # 11.6 H (1.3-7.7) k/uL Lymphocytes # 0.8 L (1.0-4.8) k/uL Monocytes # 1.3 H (0-1.0) k/uL Eosinophils # 0.3 (0-0.7) k/uL Basophils # 0.0 (0-0.2) k/uL Manual Slide Review Performed Macrocytosis Moderate PT 12.4 H (9.0-12.0) sec INR 1.2 H (<1.2) APTT 25.7 (22.0-30.0) sec Sodium (137-145) mmol/L Potassium (3.5-5.1) mmol/L Chloride (98-107) mmol/L Carbon Dioxide (22-30) mmol/L Anion Gap mmol/L BUN (7-17) mg/dL Creatinine (0.52-1.04) mg/dL Est GFR (CKD-EPI)AfAm (>60 ml/min/1.73 sqM) Est GFR (CKD-EPI)NonAf (>60 ml/min/1.73 sqM) Glucose (74-99) mg/dL Plasma Lactic Acid Shane (0.7-2.0) mmol/L Calcium (8.4-10.2) mg/dL Magnesium (1.6-2.3) mg/dL Total Bilirubin (0.2-1.3) mg/dL AST (14-36) U/L ALT (4-34) U/L Alkaline Phosphatase (38-126) U/L Troponin I (0.000-0.034) ng/mL NT-Pro-B Natriuret Pep 5090 pg/mL Total Protein (6.3-8.2) g/dL Albumin (3.5-5.0) g/dL Urine Color Urine Appearance (Clear) Urine pH (5.0-8.0) Ur Specific [place] (1.001-1.035) Urine Protein (Negative) Urine Glucose (UA) (Negative) Urine Ketones (Negative) Urine Blood (Negative) Urine Nitrite (Negative) Urine Bilirubin (Negative) Urine Urobilinogen (<2.0) mg/dL Ur Leukocyte Esterase (Negative) Urine RBC (0-5) /hpf Urine WBC (0-5) /hpf Hyaline Casts (0-2) /lpf Urine Mucus (None) /hpf Influenza Type A (PCR) (Not Detectd) Influenza Type B (PCR) (Not Detectd) RSV (PCR) (Not Detectd) SARS-CoV-2 (PCR) (Not Detectd) 02/04/23 02/04/23 02/04/23 Range/Units 10:07 10:07 10:07 WBC (3.8-10.6) k/uL RBC (3.80-5.40) m/uL Hgb (11.4-16.0) gm/dL Hct (34.0-46.0) % MCV (80.0-100.0) fL MCH (25.0-35.0) pg MCHC (31.0-37.0) g/dL RDW (11.5-15.5) % Plt Count (150-450) k/uL MPV Neutrophils % % Lymphocytes % % Monocytes % % Eosinophils % % Basophils % % Neutrophils # (1.3-7.7) k/uL Lymphocytes # (1.0-4.8) k/uL Monocytes # (0-1.0) k/uL Eosinophils # (0-0.7) k/uL Basophils # (0-0.2) k/uL Manual Slide Review Macrocytosis PT (9.0-12.0) sec INR (<1.2) APTT (22.0-30.0) sec Sodium 136 L (137-145) mmol/L Potassium 5.0 (3.5-5.1) mmol/L Chloride 103 (98-107) mmol/L Carbon Dioxide 25 (22-30) mmol/L Anion Gap 8 mmol/L BUN 36 H (7-17) mg/dL Creatinine 1.26 H (0.52-1.04) mg/dL Est GFR (CKD-EPI)AfAm 47 (>60 ml/min/1.73 sqM) Est GFR (CKD-EPI)NonAf 41 (>60 ml/min/1.73 sqM) Glucose 91 (74-99) mg/dL Plasma Lactic Acid Shane 1.9 (0.7-2.0) mmol/L Calcium 9.2 (8.4-10.2) mg/dL Magnesium 2.2 (1.6-2.3) mg/dL Total Bilirubin 3.2 H (0.2-1.3) mg/dL AST 119 H (14-36) U/L ALT 42 H (4-34) U/L Alkaline Phosphatase 217 H (38-126) U/L Troponin I (0.000-0.034) ng/mL NT-Pro-B Natriuret Pep pg/mL Total Protein 8.1 (6.3-8.2) g/dL Albumin 3.3 L (3.5-5.0) g/dL Urine Color Yellow Urine Appearance Clear (Clear) Urine pH 6.5 (5.0-8.0) Ur Specific [place] 1.019 (1.001-1.035) Urine Protein 1+ H (Negative) Urine Glucose (UA) Negative (Negative) Urine Ketones Trace H (Negative) Urine Blood Negative (Negative) Urine Nitrite Negative (Negative) Urine Bilirubin Negative (Negative) Urine Urobilinogen <2.0 (<2.0) mg/dL Ur Leukocyte Esterase Negative (Negative) Urine RBC 2 (0-5) /hpf Urine WBC 1 (0-5) /hpf Hyaline Casts 1 (0-2) /lpf Urine Mucus Rare H (None) /hpf Influenza Type A (PCR) (Not Detectd) Influenza Type B (PCR) (Not Detectd) RSV (PCR) (Not Detectd) SARS-CoV-2 (PCR) (Not Detectd) 02/04/23 02/04/23 02/04/23 Range/Units 10:07 10:36 11:20 WBC (3.8-10.6) k/uL RBC (3.80-5.40) m/uL Hgb (11.4-16.0) gm/dL Hct (34.0-46.0) % MCV (80.0-100.0) fL MCH (25.0-35.0) pg MCHC (31.0-37.0) g/dL RDW (11.5-15.5) % Plt Count (150-450) k/uL MPV Neutrophils % % Lymphocytes % % Monocytes % % Eosinophils % % Basophils % % Neutrophils # (1.3-7.7) k/uL Lymphocytes # (1.0-4.8) k/uL Monocytes # (0-1.0) k/uL Eosinophils # (0-0.7) k/uL Basophils # (0-0.2) k/uL Manual Slide Review Macrocytosis PT (9.0-12.0) sec INR (<1.2) APTT (22.0-30.0) sec Sodium (137-145) mmol/L Potassium (3.5-5.1) mmol/L Chloride (98-107) mmol/L Carbon Dioxide (22-30) mmol/L Anion Gap mmol/L BUN (7-17) mg/dL Creatinine (0.52-1.04) mg/dL Est GFR (CKD-EPI)AfAm (>60 ml/min/1.73 sqM) Est GFR (CKD-EPI)NonAf (>60 ml/min/1.73 sqM) Glucose (74-99) mg/dL Plasma Lactic Acid Shane 2.0 (0.7-2.0) mmol/L Calcium (8.4-10.2) mg/dL Magnesium (1.6-2.3) mg/dL Total Bilirubin (0.2-1.3) mg/dL AST (14-36) U/L ALT (4-34) U/L Alkaline Phosphatase (38-126) U/L Troponin I 0.082 H* (0.000-0.034) ng/mL NT-Pro-B Natriuret Pep pg/mL Total Protein (6.3-8.2) g/dL Albumin (3.5-5.0) g/dL Urine Color Urine Appearance (Clear) Urine pH (5.0-8.0) Ur Specific [place] (1.001-1.035) Urine Protein (Negative) Urine Glucose (UA) (Negative) Urine Ketones (Negative) Urine Blood (Negative) Urine Nitrite (Negative) Urine Bilirubin (Negative) Urine Urobilinogen (<2.0) mg/dL Ur Leukocyte Esterase (Negative) Urine RBC (0-5) /hpf Urine WBC (0-5) /hpf Hyaline Casts (0-2) /lpf Urine Mucus (None) /hpf Influenza Type A (PCR) Not Detected (Not Detectd) Influenza Type B (PCR) Not Detected (Not Detectd) RSV (PCR) Not Detected (Not Detectd) SARS-CoV-2 (PCR) Not Detected (Not Detectd) Disposition Clinical Impression: Pneumonia, Spinal stenosis, Pulmonary edema Disposition: ADMITTED IP TO THIS HOSP Referrals: Ricki Hood DO [Primary Care Provider] - 1-2 days Time of Disposition: 15:16
[2023-02-04 10:36] LABS: ALT 42 U/L (4-34); AST 119 U/L (14-36); African American GFR (CKD) 47 (>60 ml/min/1.73 sqM); Albumin 3.3 g/dL (3.5-5.0); Alkaline Phosphatase 217 U/L (38-126); Anion Gap 8 mmol/L; Blood Urea Nitrogen 36 mg/dL (7-17); Calcium 9.2 mg/dL (8.4-10.2); Carbon Dioxide 25 mmol/L (22-30); Chloride 103 mmol/L (98-107); Glucose 91 mg/dL (74-99); Magnesium 2.2 mg/dL (1.6-2.3); Non-African American GFR(CKD) 41 (>60 ml/min/1.73 sqM); Sodium 136 mmol/L (137-145); Total Bilirubin 3.2 mg/dL (0.2-1.3); Total Protein 8.1 g/dL (6.3-8.2)
[2023-02-04] MEDS ORDERED: ACETAMINOPHEN TAB 500 MG TAB PO STA (10:37)
[2023-02-04 10:38] LABS: INR 1.2 (<1.2); Partial Thromboplastin Time 25.7 sec (22.0-30.0); Prothrombin Time 12.4 sec (9.0-12.0)
[2023-02-04 10:39] LABS: Basophils % (A) 0 %; Eosinophils # (A) 0.3 k/uL (0-0.7); Eosinophils % (A) 2 %; HCT 35.6 % (34.0-46.0); Lymphocytes # (A) 0.8 k/uL (1.0-4.8); Lymphocytes % (A) 6 %; MCH 35.7 pg (25.0-35.0); MCHC 33.6 g/dL (31.0-37.0); MCV 106.2 fL (80.0-100.0); Macrocytosis Moderate; Mean Platelet Volume 8.1; Monocytes # (A) 1.3 k/uL (0-1.0); Monocytes % (A) 9 %; Neutrophils # (A) 11.6 k/uL (1.3-7.7); Neutrophils % (A) 81 %; RBC 3.36 m/uL (3.80-5.40); RDW 13.9 % (11.5-15.5); WBC 14.3 k/uL (3.8-10.6)
--- NOTE | 2023-02-04 11:10 | XR ---
EXAMINATION TYPE: XR chest 2V DATE OF EXAM: 02/04/2023 10:55 AM COMPARISON: None TECHNIQUE: XR chest 2V Frontal and lateral views of the chest. CLINICAL INDICATION:Female, 77 years old with history of Weakness; FINDINGS: Lungs/Pleura: There is no evidence of pleural effusion, focal consolidation, or pneumothorax. Pulmonary vascularity: Mild pulmonary vascular congestion. Heart/mediastinum: Cardiomediastinal silhouette is enlarged. Musculoskeletal: No acute osseous pathology. Degenerative changes of the thoracic spine. S-shaped sco liotic curvature. IMPRESSION: Cardiomegaly and mild pulmonary vascular congestion. Correlate with BNP for congestive heart failure.
[2023-02-04 11:17] LABS: Platelet Count 92 k/uL (150-450)
[2023-02-04 11:43] LABS: Appearance,Urine Clear (Clear); Bilirubin,Urine Negative (Negative); Blood,Urine Negative (Negative); Color,Urine Yellow; Glucose,Urine (UA) Negative (Negative); Hyaline Casts,Urine 1 /lpf (0-2); Ketones,Urine Trace (Negative); Leukocyte Esterase,Urine Negative (Negative); Mucus,Urine Rare /hpf; Nitrite,Urine Negative (Negative); PH, Urine 6.5 (5.0-8.0); Protein,Urine 1+ (Negative); RBC,Urine 2 /hpf (0-5); Specific Gravity,Urine 1.019 (1.001-1.035); Urobilinogen,Urine <2.0 mg/dL (<2.0); WBC,Urine 1 /hpf (0-5)
--- NOTE | 2023-02-04 14:04 | US ---
EXAMINATION TYPE: US gallbladder DATE OF EXAM: 02/04/2023 COMPARISON: Renal ultrasound 12/05/2021 CLINICAL INDICATION: Female, 77 years old with history of Elevated liver enzymes; Abn labs. Portable EC exam TECHNIQUE: Multiple sonographic images of the right upper quadrant are obtained. FINDINGS: EXAM MEASUREMENTS: Liver Length: 12.7 cm Gallbladder Wall: 0.2 cm CBD: 0.3 cm Right Kidney: 9.9 x 5.1 x 4.2 cm WAREHOUSE HELPER NOTES: Limited due to bowel gas Pancreas: Limited visualization. Possibly echogenic and heterogenous. Liver: Limited visualization. Scanned through ribs. Gallbladder: Sludge visualized at fundal region. Unable to turn patient for LLD images. Evidence for sonographic Torres's sign: neg CBD: Suboptimal visualization, wnl Right Kidney: No prominent hydronephrosis or masses seen, limited due to bowel gas Visualized portions of pancreas unremarkable. Visualized portions of liver unremarkable. No focal les ion identified. Gallbladder demonstrates biliary sludge without evidence for shadowing calculi. No wa ll thickening or pericolic fluid. Per brushing operator, negative sonographic Torres sign. Visualized porti on the common bile duct within normal limits. Right kidney demonstrates no evidence of hydronephrosis or solid mass. No nephrolithiasis. IMPRESSION: Limited examination due to overlying bowel gas. Gallbladder sludge without sonographic evidence for acute cholecystitis
[2023-02-04] MEDS ORDERED: FUROSEMIDE 10 MG/ML 2 ML VIAL IV ONE (15:08)
[2023-02-04] MEDS ORDERED: cefTRIAXone IN SWFI 1,000 MG/10 ML SYRINGE IVP STA (15:09)
[2023-02-04] MEDS ORDERED: AZITHROMYCIN 500 MG in SODIUM CHLORIDE 0.9% 250 ML IVPB STA (15:17)
[2023-02-04] MEDS ORDERED: PNEUMONIA PROTOCOL UTILIZED 1 EACH MISC PO PRN (15:17)
[2023-02-04] MEDS ORDERED: IPRATROPIUM-ALBUTEROL 3 ML NEB INHALATION PRN (16:12)
[2023-02-04] MEDS: FUROSEMIDE 10 MG/ML 2 ML VIAL IV SCH (16:23)
[2023-02-04] MEDS: methylPREDNISolone SOD SUCCI 125 MG/2 ML VIAL IV SCH (19:08)
[2023-02-04] MEDS: METOPROLOL SUCCINATE (ER) 50 MG TAB.ER.24H PO SCH (20:14)
[2023-02-04] MEDS ORDERED: HEPARIN SODIUM,PORCINE 5,000 UNIT/ML 1 ML VIAL SQ SCH (21:00)
--- NOTE | 2023-02-04 21:34 | HP ---
HISTORY AND PHYSICAL CHIEF COMPLAINT: Shortness of breath and weakness. HISTORY OF PRESENT ILLNESS: This is a 77-year-old woman with a past medical history of multiple medical problems, being followed by Dr. Hood in the outpatient setting, who thought that this morning the asthma is acting out. The patient had short of breath. Subsequently, the patient had significant weakness, and the patient also had fever and back pain. The patient came to [facility] and admitted for further evaluation and treatment. Pneumonia is suspected. The white count is elevated to 14.3, and the COVID testing is negative. The patient had multiple abnormal labs. PAST MEDICAL HISTORY: Reviewed includes history of asthma and hypertension. Rest of the history and rest of the chart are also reviewed. HOME MEDICATIONS: Reviewed include Decadron. Doses and rest of the medications are reviewed. ALLERGIES: Reviewed include Prilosec. SOCIAL HISTORY: No history of smoking. FAMILY HISTORY: History of leukemia. REVIEW OF SYSTEMS: Fourteen-point review is negative except as mentioned earlier. PHYSICAL EXAMINATION: VITAL SIGNS: Pulse is 83, blood pressure 121/57, respirations 17, temperature is 100 degrees. HEENT: Conjunctivae are normal. NECK: No jugular venous distention. CARDIOVASCULAR: S1 and S2 muffled. RESPIRATORY: Breath sounds diminished at the bases. Few scattered rhonchi and crackles. ABDOMEN: Soft and nontender. LEGS: No edema. No swelling. NERVOUS SYSTEM: Nonfocal. SKIN: No ulcers or rashes. JOINTS: No active deforming arthropathy. LABORATORY DATA: WBC 14.3. Rest of the labs are noted. ASSESSMENT: 1. Fever, possible pneumonia. 2. Elevated WBC. CHF spinal stenosis 3. Asthma acute exacerbation. 4. Hypertension. 5. History of degenerative joint disease. RECOMMENDATIONS AND DISCUSSION: In this 77-year-old woman presented with multiple complex medical issues, we will monitor the patient closely. I would recommend to optimize the asthma treatment, intensive bronchodilators and Pulmonary consultation. I would also obtain cultures and initiate empiric antibiotics also. Resume the home medications once they are confirmed. Prognosis is guarded because of multiple complex medical issues. Further recommendations to follow. See orders for further details. MMODL / IJN: [id number] / MTDD
[2023-02-04] MEDS: VIT A,C & E-LUTEIN-MINERALS 1 EACH TAB PO SCH (21:51)
[2023-02-04] MEDS: IPRATROPIUM-ALBUTEROL 3 ML NEB INHALATION SCH (22:17)
[2023-02-04 22:19] LABS: Hepatitis A Antibody IgM Nonreactive; Hepatitis B Core IgM Nonreactive; Hepatitis B Surface Antigen Nonreactive; Hepatitis C IgG Antibody Nonreactive
[2023-02-05] MEDS: methylPREDNISolone SOD SUCCI 125 MG/2 ML VIAL IV SCH ×5 (01:03→20:54)
--- NOTE | 2023-02-05 04:15 | P.CNPUL ---
History of Present Illness Consult date: 02/05/23 Requesting physician: Oleg Hurst Reason for consult: pneumonia Chief complaint: Shortness of breath History of present illness: I am seeing this patient in consultation today 02/05/2023 after she presented with shortness of breath and fever. Patient is a 77-year-old white female with past medical history significant for mild intermittent bronchial asthma, congestive heart failure, spinal stenosis, hypertension, hyperlipidemia, and chronic kidney disease. She does follow with Dr. Hood in the office. Patient presented to the emergency room yesterday morning complaining mostly of lower extremity weakness. She is known to have spinal canal stenosis, and follows with Dr. Pringle. She did recently have a MRI of the lumbar spine which showed severe central stenosis at L4 through L5 with mild central stenosis at L3 to L4 and L5 to S1. Multilevel degenerative disc disease. She is also reporting shortness of breath that has been progressive over the last couple days. She also had a temperature on arrival with a T-max of 100F. Denies any cough, chest pain. Denies sick contacts. Denies heart palpitations, lightheadedness, syncope. She does have chronic lower extremity swelling, but states this is not worse than normal. Patient is currently sitting up in bed, on 3 L/m nasal cannula, in no acute distress. Chest x-ray on arrival showed cardiomegaly with mild pulmonary vascular congestion. There is also possible lower lobe infiltrate concerning for possible pneumonia. CBC on arrival shows leukocytosis with WBC count of 14.3, hemoglobin 12, hematocrit 35.6, platelets 92,000. BMP shows sodium 136, potassium 5, chloride 103, serum bicarb 25, BUN 36, creatinine 1.26, glucose 91. No IV maintenance fluids. Urinalysis not concerning for UTI. Lactic acid level II. LFTs mildly elevated. Hepatitis panel negative. Troponin 0.082. NT proBNP elevated at 5090. Negative for influenza, RSV, COVID-19. Negative urine Legionella. Patient empirically started on a com bination of azithromycin and Rocephin. Also started on Lasix 20 mg 3 times a day. She is hemodynamically stable. Review of Systems REVIEW OF SYSTEMS: CONSTITUTIONAL: Denies any recent significant weight loss or weight gain. EYES: Denies change in vision. EARS, NOSE, MOUTH, THROAT: Denies headaches, denies sore throat. CARDIOVASCULAR: Denies chest pain, palpitations or syncopal episodes. RESPIRATORY: See HPI. GASTROINTESTINAL: Denies change in appetite, abdominal pain, nausea and vomiting, or diarrhea GENITOURINARY: Denies hematuria, denies infections. MUSKULOSKELETAL: Denies pain, denies swelling. INTEGUMENTARY: Denies rash, denies eczema. NEUROLOGICAL: Denies recent memory loss, no recent seizure activity. No saddle anesthesia. PSYCHIATRIC: Denies anxiety, denies depression. HEMATOLOGIC/LYMPHATIC: Denies anemia, denies enlarged lymph node Past Medical History Past Medical History: Asthma, Eye Disorder, Hypertension, Musculoskeletal Disorder, Osteoarthritis (OA) Additional Past Medical History / Comment(s): ENVIRONMENTAL ALLERGIES, ASTHMA(NO CURRENT MEDS), BACK STENOSIS, AUTOIMMUNE DISEASE History of Any Multi-Drug Resistant Organisms: None Reported Past Surgical History: Heart Catheterization Additional Past Surgical History / Comment(s): EYE SURGERY DUE TO INJURY, EGD, COLONOSCOPY, BONE MARROW BIOPSY, cataracs Past Anesthesia/Blood Transfusion Reactions: No Reported Reaction Past Psychological History: No Psychological Hx Reported Smoking Status: Never smoker Past Alcohol Use History: Occasional Additional Past Alcohol Use History / Comment(s): "1 glass of wine per day most days but not all". Past Drug Use History: None Reported - Past Family History Sister(s) Family Medical History: Cancer Additional Family Medical History / Comment(s): LEUKEMIA. Brother(s) Family Medical History: Cancer Medications and Allergies Home Medications Medication Instructions Recorded Confirmed Type Cyanocobalamin (Vitamin B-12) 1,000 mcg PO DAILY 12/30/20 02/04/23 History [Vitamin B-12] Ferrous Sulfate [Iron (65 MG 325 mg PO DAILY 12/30/20 02/04/23 History Elemental)] Vit C/E/Zn/Coppr/Lutein/Zeaxan 2 cap PO BID 12/30/20 02/04/23 History [Preservision Areds 2 Softgel] Cholecalciferol (Vitamin D3) 125 mcg PO DAILY 04/25/21 02/04/23 History [Vitamin D3 (125 MCG = 5,000 IU)] Metoprolol Succinate (ER) [Toprol 50 mg PO HS 04/25/21 02/04/23 History Xl] Calcium Carbonate/Vitamin D3 1 tab PO DAILY 02/04/23 02/04/23 History [Calcium 600-Vit D3 10 mcg (400 Iu)] Folic Acid 1 mg PO DAILY 02/04/23 02/04/23 History Furosemide [Lasix] 40 mg PO DAILY 02/04/23 02/04/23 History Magnesium Oxide [Mag-Ox] 400 mg PO DAILY 02/04/23 02/04/23 History Potassium Chloride ER [K-Dur 10] 10 meq PO DAILY 02/04/23 02/04/23 History dexAMETHasone [Decadron Elixir] 0.5 mg PO QID 02/04/23 02/04/23 History Allergies Allergy/AdvReac Type Severity Reaction Status Date / Time omeprazole [From Prilosec] Allergy Unknown Rash/Hives, Verified 02/04/23 13:38 TONGUE SWELLLING omeprazole magnesium Allergy Unknown Rash/Hives, Verified 02/04/23 13:38 [From [facility]] TONGUE SWELLLING Penicillins Allergy Unknown Rash/Hives/ Verified 02/04/23 13:38 Itching carvedilol Allergy shortness Verified 02/04/23 13:38 of breath lisinopril Allergy Unknown Verified 02/04/23 13:38 Physical Exam Vitals: Vital Signs Temp Pulse Pulse Resp BP BP Pulse Ox 02/05/23 02:00 72 20 02/05/23 00:00 72 20 132/70 97 02/04/23 22:26 97 02/04/23 22:24 72 02/04/23 22:18 72 02/04/23 20:00 98.2 F 80 20 145/72 97 02/04/23 16:45 98.2 F 82 18 150/64 96 02/04/23 16:30 98.0 F 84 18 135/81 98 02/04/23 10:06 84 20 130/68 96 02/04/23 09:59 100.0 F H 83 17 121/57 97 Intake and Output 02/04/23 02/04/23 02/05/23 14:59 22:59 06:59 Intake Total 256 Output Total 600 Balance 256 -600 Intake: IV 20 Invasive Line 1 20 Oral 236 Output: Urine 600 Other: Weight 77.6 kg 77.6 kg GENERAL EXAM: Alert, 77-year-old white female appearing stated age , comfortable in no apparent distress. HEAD: Normocephalic and atraumatic EYES: Normal reaction of pupils, equal size. NOSE: Clear with pink turbinates. THROAT: No erythema or exudates. NECK: No masses, no JVD. CHEST: No chest wall deformity. LUNGS: Equal air entry with bibasilar dry crackles. No wheezing, rhonchi, focal dullness. On 3 L/m nasal cannula. No conversational dyspnea or accessory muscle use.. CVS: S1 and S2 normal with soft systolic murmur grade 1/6, regular rhythm. No extra heart sounds ABDOMEN: No hepatosplenomegaly, active bowel sounds, no guarding or rigidity. SPINE: No scoliosis or deformity SKIN: No rashes CENTRAL NERVOUS SYSTEM: No focal deficits, tone is normal in all 4 extremities. Bilateral lower extremity strength grade 5/5. Sensation intact. EXTREMITIES: There is mild nonpitting lower extremity edema. clubbing, or cyanosis. Peripheral pulses are intact. Results - Laboratory Findings CBC and BMP: 02/04/23 10:07 02/04/23 10:07 PT/INR, D-dimer PT 12.4 sec (9.0-12.0) H 02/04/23 10:07 INR 1.2 (<1.2) H 02/04/23 10:07 Abnormal lab findings: Abnormal Labs 02/04/23 02/04/23 02/04/23 10:07 10:07 10:07 WBC 14.3 H RBC 3.36 L MCV 106.2 H MCH 35.7 H Plt Count 92 L Neutrophils # 11.6 H Lymphocytes # 0.8 L Monocytes # 1.3 H PT 12.4 H INR 1.2 H Sodium BUN Creatinine Total Bilirubin AST ALT Alkaline Phosphatase Troponin I Albumin Urine Protein 1+ H Urine Ketones Trace H Urine Mucus Rare H 02/04/23 02/04/23 10:07 10:07 WBC RBC MCV MCH Plt Count Neutrophils # Lymphocytes # Monocytes # PT INR Sodium 136 L BUN 36 H Creatinine 1.26 H Total Bilirubin 3.2 H AST 119 H ALT 42 H Alkaline Phosphatase 217 H Troponin I 0.082 H* Albumin 3.3 L Urine Protein Urine Ketones Urine Mucus - Diagnostic Findings Chest x-ray: image reviewed Assessment and Plan Assessment: Acute hypoxemic respiratory failure, possibly multifactorial related to a combination of exacerbation of combined systolic and diastolic congestive heart failure and possible lower lobe community-acquired pneumonia. Chest x-ray on arrival showed cardiomegaly with mild pulmonary vascular congestion. There is also possible developing lower lobe infiltrate concerning for possible pneumonia. Leukocytosis Mild intermittent bronchial asthma, appears stable Acute on chronic kidney disease, creatinine 1.26 Elevated troponins, possibly related to supply/demand mismatch History of combined systolic and diastolic congestive heart failure. Most recent echocardiogram from 02/08/2022 shows a reduced left ventricular ejection fraction of 40%. There was also evidence of grade 3 diastolic dysfunction. Moderate concentric left ventricular hypertrophy, mild to moderate tricuspid regurgitation, and moderate mitral regurgitation. Spinal stenosis involving the lumbar spine. Recent MRI of the lumbar spine showed severe central stenosis at L4 through L5 with mild central stenosis at L3 to L4 and L5-S1 Bilateral lower extremity weakness, possibly secondary to above Elevated LFTs, negative hepatitis panel Benign essential hypertension Hyperlipidemia Chronic kidney disease stage III Plan: Patient's medications, labs, chest x-ray reviewed Continue supplemental oxygen Receiving DuoNeb's [id number] Continue empiric antibiotics Negative for influenza, RSV, COVID-19 Agree with Lasix for diuresis Monitor troponins Appears nontoxic and is hemodynamically stable We will continue to follow I have personally seen and examined the patient, performed the documentation and the assessment and plan as written. Number of minutes spent on the visit:20 Time with Patient: Greater than 30
[2023-02-05 04:58] LABS: African American GFR (CKD) 47 (>60 ml/min/1.73 sqM); Anion Gap 4 mmol/L; Blood Urea Nitrogen 41 mg/dL (7-17); Carbon Dioxide 24 mmol/L (22-30); Chloride 104 mmol/L (98-107); Glucose 141 mg/dL (74-99); Non-African American GFR(CKD) 41 (>60 ml/min/1.73 sqM); Potassium 4.1 mmol/L (3.5-5.1); Sodium 132 mmol/L (137-145)
[2023-02-05 05:12] LABS: Basophils % (A) 0 %; Eosinophils % (A) 0 %; HCT 30.2 % (34.0-46.0); Lymphocytes # (A) 0.9 k/uL (1.0-4.8); Lymphocytes % (A) 7 %; MCH 34.2 pg (25.0-35.0); Macrocytosis Moderate; Mean Platelet Volume 9.3; Monocytes # (A) 0.3 k/uL (0-1.0); Monocytes % (A) 3 %; Neutrophils # (A) 11.2 k/uL (1.3-7.7); Neutrophils % (A) 90 %; RBC 2.82 m/uL (3.80-5.40); WBC 12.5 k/uL (3.8-10.6)
[2023-02-05 05:20] LABS: HGB 9.7 gm/dL (11.4-16.0); Platelet Count 69 k/uL (150-450)
[2023-02-05] MEDS ORDERED: HEPARIN SODIUM 1,000 UN/ML (10ML VL) IV PRN (05:27)
[2023-02-05] MEDS ORDERED: HEPARIN SODIUM 1,000 UN/ML (10ML VL) IV ONE (05:27)
[2023-02-05] MEDS ORDERED: HEPARIN SOD,PORK IN 0.45% NACL 25,000 UNIT in 0.45% NACL 1 250ML.BAG IV SCH (05:30)
[2023-02-05 06:16] LABS: Glucose,Whole Blood 139 mg/dL (70-110)
[2023-02-05 06:19] LABS: INR 1.4 (<1.2); Partial Thromboplastin Time 29.9 sec (22.0-30.0)
[2023-02-05] MEDS: IPRATROPIUM-ALBUTEROL 3 ML NEB INHALATION SCH ×3 (08:04→21:35)
--- NOTE | 2023-02-05 09:00 | XR ---
EXAMINATION TYPE: XR chest 2V DATE OF EXAM: 02/05/2023 COMPARISON: 02/04/2023 INDICATION: Pneumonia TECHNIQUE: Frontal and lateral views of the chest are obtained. FINDINGS: The heart size is normal. The pulmonary vasculature is normal. Minimal left pleural effusion and small right pleural effusion are likely present.. IMPRESSION: 1. Small bilateral pleural effusions.
[2023-02-05] MEDS: AZITHROMYCIN 500 MG TAB PO SCH (10:29)
[2023-02-05] MEDS: CYANOCOBALAMIN 500 MCG TAB PO SCH (10:30)
[2023-02-05] MEDS: FUROSEMIDE 10 MG/ML 2 ML VIAL IV SCH ×3 (10:30→20:52)
[2023-02-05] MEDS: FERROUS SULFATE 325 MG TAB PO SCH (10:30)
[2023-02-05] MEDS: CALCIUM CARB-VIT D 500 MG-5 MCG TAB PO SCH (10:30)
[2023-02-05] MEDS: CHOLECALCIFEROL 125 MCG (5000 IU) TABLET PO SCH (10:30)
[2023-02-05] MEDS: MAGNESIUM OXIDE 400 MG TAB PO SCH (10:31)
[2023-02-05] MEDS: POTASSIUM CHLORIDE ER 10 MEQ TAB.ER.PRT PO SCH (10:31)
[2023-02-05] MEDS: FOLIC ACID 1 MG TAB PO SCH (10:31)
[2023-02-05] MEDS: VIT A,C & E-LUTEIN-MINERALS 1 EACH TAB PO SCH ×2 (10:32→20:50)
--- NOTE | 2023-02-05 10:41 | P.CRDCN ---
History of Present Illness History of present illness: HISTORY OF PRESENT ILLNESS: This is a 77-year-old female with a past medical history significant for nonischemic cardiomyopathy, left bundle branch block, hypertension, hyperlipidemia, and valvular heart disease. Patient follows in the office with Dr. Gonzalez. We have been asked to see the patient in consultation for abnormal troponins. Patient examined at the bedside. Patient states she has been having leg weakness for the past several weeks. She states that she did see an orthopedic physician who told her she had spinal stenosis and this may be causing some of her issues. She states yesterday it was so bad that she was unable to move her legs to get out of bed which prompted her to come to the emergency room. She denies any chest pain or pressure. She does report some shortness of breath for the past week. She states that she thought it was secondary to her asthma. The patient was found to have elevated troponins and was started on IV heparin. She was also found to have mild congestive heart failure and started on IV Lasix. Patient is also being treated for possible pneumonia. The patient does report having chills 2 nights ago at home. * EKG reveals sinus mechanism with left bundle branch block. * Chest xray cardiomegaly and mild pulmonary vascular congestion * Laboratory data: WBC 12.5. Hemoglobin 9.7. Platelet count 69. Sodium 132. Potassium 4.1. BUN 41. Creatinine 1.25. Troponin 0.082. 0.170. 0.095. * Current home cardiac medications include Lasix 40 mg daily, metoprolol succinate 50 mg at night * Most recent echocardiogram obtained in January 2022 revealing ejection fraction 40%, moderate MR, mild AR * Cardiac catheterization history: December 2020 revealing minimal coronary artery disease REVIEW OF SYSTEMS: At the time of my exam: CONSTITUTIONAL: Denies fever or chills. HEENT: Denies blurred vision, vision changes, or eye pain. Denies hemoptysis CARDIOVASCULAR: Denies chest pain. Denies orthopnea. Denies PND. Denies palpitations RESPIRATORY: Denies shortness of breath. GASTROINTESTINAL: Denies abdominal pain. Denies nausea or vomiting. HEMATOLOGIC: Denies bleeding disorders. GENITOURINARY: Denies any blood in urine. SKIN: Denies pruitis. Denies rash. PHYSICAL EXAM: VITAL SIGNS: Reviewed. GENERAL: Well-developed in no acute distress. HEENT: Head is normocephalic. Pupils are equal, round. Sclerae anicteric. Mucous membranes of the mouth are moist. Neck supple. No JVD or thyromegaly LUNGS: Respirations even and unlabored. Lungs diminished with bibasilar crackles HEART: Regular rate and rhythm. S1 and S2 heard. Systolic murmur noted. ABDOMEN: Soft. Nondistended. Nontender. EXTREMITIES: Normal range of motion. No clubbing or cyanosis. Peripheral pulses intact. Trace bilateral lower extremity edema NEUROLOGIC: Awake and alert. Oriented x 3. ASSESSMENT: Bilateral lower extremity weakness with history of spinal stenosis Acute on chronic heart failure with reduced ejection fraction Possible pneumonia Elevated troponins, likely secondary to above, no evidence of acute coronary syndrome Nonischemic cardiomyopathy Hypertension Hyperlipidemia Valvular heart disease PLAN: An acute coronary event has been ruled out Discontinue IV heparin Obtain 2-D echo to assess cardiac structure and function Continue IV Lasix 20 mg every 8 hours Daily weights, accurate I&O, and monitoring of kidney function Further recommendations pending patient's course Nurse practitioner note has been reviewed by physician. Signing provider agrees with the documented findings, assessment, and plan of care. Past Medical History Past Medical History: Asthma, Eye Disorder, Hypertension, Musculoskeletal Disorder, Osteoarthritis (OA) Additional Past Medical History / Comment(s): ENVIRONMENTAL ALLERGIES, ASTHMA(NO CURRENT MEDS), BACK STENOSIS, AUTOIMMUNE DISEASE History of Any Multi-Drug Resistant Organisms: None Reported Past Surgical History: Heart Catheterization Additional Past Surgical History / Comment(s): EYE SURGERY DUE TO INJURY, EGD, COLONOSCOPY, BONE MARROW BIOPSY, cataracs Past Anesthesia/Blood Transfusion Reactions: No Reported Reaction Past Psychological History: No Psychological Hx Reported Smoking Status: Never smoker Past Alcohol Use History: Occasional Additional Past Alcohol Use History / Comment(s): "1 glass of wine per day most days but not all". Past Drug Use History: None Reported - Past Family History Sister(s) Family Medical History: Cancer Additional Family Medical History / Comment(s): LEUKEMIA. Brother(s) Family Medical History: Cancer Medications and Allergies Home Medications Medication Instructions Recorded Confirmed Type Cyanocobalamin (Vitamin B-12) 1,000 mcg PO DAILY 12/30/20 02/04/23 History [Vitamin B-12] Ferrous Sulfate [Iron (65 MG 325 mg PO DAILY 12/30/20 02/04/23 History Elemental)] Vit C/E/Zn/Coppr/Lutein/Zeaxan 2 cap PO BID 12/30/20 02/04/23 History [Preservision Areds 2 Softgel] Cholecalciferol (Vitamin D3) 125 mcg PO DAILY 04/25/21 02/04/23 History [Vitamin D3 (125 MCG = 5,000 IU)] Metoprolol Succinate (ER) [Toprol 50 mg PO HS 04/25/21 02/04/23 History Xl] Calcium Carbonate/Vitamin D3 1 tab PO DAILY 02/04/23 02/04/23 History [Calcium 600-Vit D3 10 mcg (400 Iu)] Folic Acid 1 mg PO DAILY 02/04/23 02/04/23 History Furosemide [Lasix] 40 mg PO DAILY 02/04/23 02/04/23 History Magnesium Oxide [Mag-Ox] 400 mg PO DAILY 02/04/23 02/04/23 History Potassium Chloride ER [K-Dur 10] 10 meq PO DAILY 02/04/23 02/04/23 History dexAMETHasone [Decadron Elixir] 0.5 mg PO QID 02/04/23 02/04/23 History Allergies Allergy/AdvReac Type Severity Reaction Status Date / Time omeprazole [From Prilosec] Allergy Unknown Rash/Hives, Verified 02/04/23 13:38 TONGUE SWELLLING omeprazole magnesium Allergy Unknown Rash/Hives, Verified 02/04/23 13:38 [From Prilosec] TONGUE SWELLLING Penicillins Allergy Unknown Rash/Hives/ Verified 02/04/23 13:38 Itching carvedilol Allergy shortness Verified 02/04/23 13:38 of breath lisinopril Allergy Unknown Verified 02/04/23 13:38 Physical Exam Vitals: Vital Signs Temp Pulse Pulse Resp BP BP Pulse Ox 02/05/23 04:00 75 20 112/63 97 02/05/23 02:00 72 20 02/05/23 00:00 72 20 132/70 97 02/04/23 22:26 97 02/04/23 22:24 72 02/04/23 22:18 72 02/04/23 20:00 98.2 F 80 20 145/72 97 02/04/23 16:45 98.2 F 82 18 150/64 96 02/04/23 16:30 98.0 F 84 18 135/81 98 02/04/23 10:06 84 20 130/68 96 02/04/23 09:59 100.0 F H 83 17 121/57 97 Intake and Output 02/04/23 02/05/23 02/05/23 22:59 06:59 14:59 Intake Total 256 Output Total 1000 Balance 256 -1000 Intake: IV 20 Invasive Line 1 20 Oral 236 Output: Urine 1000 Other: Weight 77.6 kg Results 02/05/23 04:35 02/05/23 04:35 Cardiac Enzymes 02/04/23 02/04/23 02/05/23 Range/Units 10:07 10:07 04:35 AST 119 H (14-36) U/L Troponin I 0.082 H* 0.170 H* (0.000-0.034) ng/mL Coagulation 02/04/23 02/05/23 Range/Units 10:07 05:33 PT 12.4 H 14.0 H (9.0-12.0) sec APTT 25.7 29.9 (22.0-30.0) sec CBC 02/04/23 02/05/23 Range/Units 10:07 04:35 WBC 14.3 H 12.5 H (3.8-10.6) k/uL RBC 3.36 L 2.82 L (3.80-5.40) m/uL Hgb 12.0 9.7 L D (11.4-16.0) gm/dL Hct 35.6 30.2 L (34.0-46.0) % Plt Count 92 L 69 L (150-450) k/uL Comprehensive Metabolic Panel 02/04/23 02/05/23 Range/Units 10:07 04:35 Sodium 136 L 132 L (137-145) mmol/L Potassium 5.0 4.1 (3.5-5.1) mmol/L Chloride 103 104 (98-107) mmol/L Carbon Dioxide 25 24 (22-30) mmol/L BUN 36 H 41 H (7-17) mg/dL Creatinine 1.26 H 1.25 H (0.52-1.04) mg/dL Glucose 91 141 H (74-99) mg/dL Calcium 9.2 8.0 L (8.4-10.2) mg/dL AST 119 H (14-36) U/L ALT 42 H (4-34) U/L Alkaline Phosphatase 217 H (38-126) U/L Total Protein 8.1 (6.3-8.2) g/dL Albumin 3.3 L (3.5-5.0) g/dL Current Medications Generic Name Dose Route Start Last Admin Trade Name Freq PRN Reason Stop Dose Admin Albuterol/Ipratropium 3 ml 02/04/23 20:00 02/05/23 08:04 Ipratropium-Albuterol 3 Ml Neb INHALATION Not Given RT-TID MEÑO Albuterol/Ipratropium 3 ml 02/04/23 16:12 Ipratropium-Albuterol 3 Ml Neb INHALATION RT-TID PRN Shortness Of Breath Or Wheezing Azithromycin 500 mg 02/05/23 09:00 Azithromycin 500 Mg Tab PO 02/06/23 09:01 DAILY [facility] Protocol Calcium Carbonate 1 each 02/05/23 09:00 Calcium Carb-Vit D 500 Mg-5 Mcg Tab PO DAILY [facility] Cholecalciferol 125 mcg 02/05/23 09:00 Cholecalciferol 125 Mcg (5000 Iu) Tablet PO DAILY [facility] Cyanocobalamin 1,000 mcg 02/05/23 09:00 Cyanocobalamin 500 Mcg Tab PO DAILY [facility] Ferrous Sulfate 325 mg 02/05/23 09:00 Ferrous Sulfate 325 Mg Tab PO DAILY [facility] Folic Acid 1 mg 02/05/23 09:00 Folic Acid 1 Mg Tab PO DAILY [facility] Furosemide 20 mg 02/05/23 00:00 02/04/23 16:23 Furosemide 10 Mg/Ml 2 Ml Vial IV 20 mg Q8HR MEÑO Administration Heparin Sodium (Porcine) 0 unit 02/05/23 05:27 Heparin Sodium 1,000 Un/Ml (10ml Vl) IV PER PROTOCOL PRN Low PTT Protocol Ceftriaxone Sodium 2 gm/ 50 mls @ 100 mls/hr 02/05/23 09:00 Sodium Chloride IVPB 02/08/23 09:29 Q24HR MEÑO Protocol Heparin Sodium/Sodium Chloride 250 mls @ 9.312 mls/hr 02/05/23 05:30 02/05/23 05:40 25,000 unit/ Sodium Chloride IV 12 units/kg/hr .Q24H MEÑO 9.312 mls/hr Administration Protocol 12 UNITS/KG/HR Magnesium Oxide 400 mg 02/05/23 09:00 Magnesium Oxide 400 Mg Tab PO DAILY MEÑO Methylprednisolone Sodium Succinate 60 mg 02/04/23 18:00 02/05/23 05:44 Methylprednisolone Sod Succi 125 Mg/2 Ml Vial IV 60 mg Q6HR MEÑO Administration Metoprolol Succinate 50 mg 02/04/23 21:00 02/04/23 20:14 Metoprolol Succinate (Er) 50 Mg Tab.Er.24h PO Not Given HS MEÑO Miscellaneous Information 1 each 02/04/23 15:17 Pneumonia Protocol Utilized 1 Each Misc PO ONCE PRN Per Protocol Multivitamins/Minerals 1 each 02/04/23 21:00 02/04/23 21:51 Vit A,C & [id number] 1 Each Tab PO Not Given BID MEÑO Potassium Chloride 10 meq 02/05/23 09:00 Potassium Chloride Er 10 Meq Tab.Er.Prt PO DAILY MEÑO Intake and Output 02/04/23 02/05/23 02/05/23 22:59 06:59 14:59 Intake Total 256 Output Total 1000 Balance 256 -1000 Intake: IV 20 Invasive Line 1 20 Oral 236 Output: Urine 1000 Other: Weight 77.6 kg 02/05/23 04:35 02/05/23 04:35
[2023-02-05 11:46] LABS: Glucose,Whole Blood 220 mg/dL (70-110)
[2023-02-05] MEDS ORDERED: DEXTROSE 50% SYRINGE 50 ML IVP PRN (12:48)
[2023-02-05] MEDS: INSULIN ASPART (NovoLOG) 100 UNIT/ML VIAL SQ SCH ×2 (13:12→20:46)
--- NOTE | 2023-02-05 13:39 | PN ---
PROGRESS NOTE DATE OF SERVICE: 02/05/2023 HISTORY OF PRESENT ILLNESS: This is a 77-year-old woman, who was admitted with shortness of breath and as well as weakness and possibly CHF. The patient also has suspected pneumonia as well. Evaluation in progress. The patient is on empiric antibiotics and diuretics also. Multiple consultants including Cardiology, Pulmonology are following the patient closely. The patient also has severe back pain and spinal stenosis as well. PAST MEDICAL HISTORY: Reviewed. REVIEW OF SYSTEMS: A 14-point review is negative except as mentioned earlier. CURRENT MEDICATIONS: Reviewed include Zithromax, Rocephin. Rest of medications noted and rest of the history is also noted. PHYSICAL EXAMINATION: VITAL SIGNS: Pulse is 64, blood pressure 140/70, respirations 18. HEENT: Conjunctivae normal. CARDIOVASCULAR: S1, S2. RESPIRATIONS: A few scattered rhonchi. ABDOMEN: Soft, nontender. LABORATORY DATA: Platelets are 69, and WBC 12.5, hemoglobin 9.7. Troponin 0.095 and 0.170. ASSESSMENT: 1. Shortness of breath, probably congestive heart failure acute exacerbation. 2. Fever, possible pneumonia. 3. Troponin 0.170. Rule out acute [id number]-elevation myocardial infarction. 4. Elevated WBC. 5. Spinal stenosis. 6. Asthma acute exacerbation. 7. Hypertension. 8. History of degenerative joint disease. RECOMMENDATIONS AND DISCUSSION: I recommend to continue current medications, continue symptomatic treatment. Otherwise, we will check 2D echo also. Closely follow with Cardiology and Pulmonology. Prognosis guarded. Further recommendations to follow. See orders for further details. Continue the bronchodilators and steroids. Monitor blood sugars closely. Repeat labs in the morning. MMODL / IJN: [id number] /
--- NOTE | 2023-02-05 15:47 | P.CNOR ---
History of Present Illness - [facility] Consult date: 02/05/23 Requesting physician: Oleg Hurst Consult reason: other (Lumbar spinal stenosis with neurogenic claudication) History of present illness: Patient is a very pleasant 77-year-old female well known to our service who is seen and examined at bedside for further evaluation of her lumbar spine. She was recently seen in our office on 02/01/2023. She is known have gener alized weakness in her bilateral lower extremities. She recently had MRI imaging which was reviewed. She is known have multilevel stenosis of her lumbar spine. Patient states on 02/04/2023, she was having difficulty ambulating and standing on her own due to her weakness. She does feel this has improved during her admission to the hospital. She was scheduled for evaluation with physical therapy at [facility] tomorrow, 02/06/2023. She was then scheduled for treatment this coming Saturday. Currently, she states she's planning for evaluation with physical therapy during her admission here at [facility]. She will plan to contact [facility] 2 change her physical therapy appointments that she may follow-up in the outpatient setting. Patient does travel to [place] for the winter. She is planning to travel to [place] at the end of January 2023 and will reside in [place] for approximately 6 months over the winter. She'll plan to return in the spring. Patient states at the bedside she does not have any interest in surgical intervention at her lumbar spine. She also states she is not currently exper iencing any pain in regards to her bilateral lower extremities or lumbar spine. She does admit to generalized weakness and feels she needs physical therapy. She would like to exhaust conservative treatment with physical therapy. We had previously discussed an outpatient setting she were to fail conservative treatment options, she is a candidate for surgical intervention. We have discussed she is a candidate for an L2-3, L3-4, and L4-5 and only invasive posterior lateral decompression and fusion with transforaminal lumbar interbody fusion. She is currently admitted to medicine and is undergoing further treatment and evaluation with multiple medical providers including pulmonology and cardiology. She is being treated for acute hypoxic respiratory failure due to congestive heart failure. She was started on Lasix and has had significant improvement in this regard. She is being evaluated for possible pneumonia. She did have a fever and elevated WBC presentation. She does have some elevated troponins. Cardiology is planning for echocardiogram. Patient does have multiple other known medical diagnoses including hypertension, asthma, and hyperlipidemia. Past Medical History Past Medical History: Asthma, Eye Disorder, Hypertension, Musculoskeletal Disorder, Osteoarthritis (OA) Additional Past Medical History / Comment(s): ENVIRONMENTAL ALLERGIES, ASTHMA(NO CURRENT MEDS), BACK STENOSIS, AUTOIMMUNE DISEASE History of Any Multi-Drug Resistant Organisms: None Reported Past Surgical History: Heart Catheterization Additional Past Surgical History / Comment(s): EYE SURGERY DUE TO INJURY, EGD, COLONOSCOPY, BONE MARROW BIOPSY, cataracs Past Anesthesia/Blood Transfusion Reactions: No Reported Reaction Past Psychological History: No Psychological Hx Reported Smoking Status: Never smoker Past Alcohol Use History: Occasional Additional Past Alcohol Use History / Comment(s): "1 glass of wine per day most days but not all". Past Drug Use History: None Reported - Past Family History Sister(s) Family Medical History: Cancer Additional Family Medical History / Comment(s): LEUKEMIA. Brother(s) Family Medical History: Cancer Medications and Allergies Home Medications Medication Instructions Recorded Confirmed Type Cyanocobalamin (Vitamin B-12) 1,000 mcg PO DAILY 12/30/20 02/04/23 History [Vitamin B-12] Ferrous Sulfate [Iron (65 MG 325 mg PO DAILY 12/30/20 02/04/23 History Elemental)] Vit C/E/Zn/Coppr/Lutein/Zeaxan 2 cap PO BID 12/30/20 02/04/23 History [Preservision Areds 2 Softgel] Cholecalciferol (Vitamin D3) 125 mcg PO DAILY 04/25/21 02/04/23 History [Vitamin D3 (125 MCG = 5,000 IU)] Metoprolol Succinate (ER) [Toprol 50 mg PO HS 04/25/21 02/04/23 History Xl] Calcium Carbonate/Vitamin D3 1 tab PO DAILY 02/04/23 02/04/23 History [Calcium 600-Vit D3 10 mcg (400 Iu)] Folic Acid 1 mg PO DAILY 02/04/23 02/04/23 History Furosemide [Lasix] 40 mg PO DAILY 02/04/23 02/04/23 History Magnesium Oxide [Mag-Ox] 400 mg PO DAILY 02/04/23 02/04/23 History Potassium Chloride ER [K-Dur 10] 10 meq PO DAILY 02/04/23 02/04/23 History dexAMETHasone [Decadron Elixir] 0.5 mg PO QID 02/04/23 02/04/23 History Allergies Allergy/AdvReac Type Severity Reaction Status Date / Time omeprazole [From Prilosec] Allergy Unknown Rash/Hives, Verified 02/04/23 13:38 TONGUE SWELLLING omeprazole magnesium Allergy Unknown Rash/Hives, Verified 02/04/23 13:38 [From Prilosec] TONGUE SWELLLING Penicillins Allergy Unknown Rash/Hives/ Verified 02/04/23 13:38 Itching carvedilol Allergy shortness Verified 02/04/23 13:38 of breath lisinopril Allergy Unknown Verified 02/04/23 13:38 Physical Examination Physical exam: Patient is awake, alert, and oriented 3 Vital signs stable Good chest excursion with deep inspiration and expiration Abdomen soft nontender Examination of lumbar spine reveals skin is intact with no abrasions, lacerations, or bruises; no erythema, purulence or signs of infection No pain with palpation over the lumbar spine Patient is able to roll over in bed independently Dorsiflexion, plantarflexion, and extensor hallucis longus positive sustained bilaterally Patient is currently able to lift her legs off the bed independently without significant difficulty Negative Lasegue's test bilaterally No signs or symptoms of DVT; no calf pain No pain with internal and external rotation of the hips bilaterally Neurovascularly intact Results Pertinent studies: MRI of the lumbar spine taken at [facility] on 01/10/2023: L2-3 degenerative disc disease, disc desiccation, disc protrusion, and facet arthropathy resulting in mild to moderate central canal stenosis and bilateral neural foraminal stenosis; L3-4 spondylolisthesis, degenerative disc disease, disc desiccation, disc herniation, and facet arthropathy resulting in severe s pedro luis canal stenosis and foraminal stenosis; L4-5 degenerative disc disease, disc desiccation, disc herniation, and facet arthropathy resulting in moderate to severe central canal stenosis with right greater than left foraminal stenosis; L5-S1 disc desiccation and degenerative disc disease without s ignificant stenosis - Labs Labs: Abnormal Lab Results - Last 24 Hours (Table) 02/05/23 02/05/23 02/05/23 Range/Units 04:35 04:35 04:35 WBC 12.5 H (3.8-10.6) k/uL RBC 2.82 L (3.80-5.40) m/uL Hgb 9.7 L D (11.4-16.0) gm/dL Hct 30.2 L (34.0-46.0) % MCV 107.0 H (80.0-100.0) fL Plt Count 69 L (150-450) k/uL Neutrophils # 11.2 H (1.3-7.7) k/uL Lymphocytes # 0.9 L (1.0-4.8) k/uL PT (9.0-12.0) sec INR (<1.2) Sodium 132 L (137-145) mmol/L BUN 41 H (7-17) mg/dL Creatinine 1.25 H (0.52-1.04) mg/dL Glucose 141 H (74-99) mg/dL POC Glucose (mg/dL) (70-110) mg/dL Calcium 8.0 L (8.4-10.2) mg/dL Troponin I 0.170 H* (0.000-0.034) ng/mL 02/05/23 02/05/23 02/05/23 Range/Units 05:33 06:14 09:15 WBC (3.8-10.6) k/uL RBC (3.80-5.40) m/uL Hgb (11.4-16.0) gm/dL Hct (34.0-46.0) % MCV (80.0-100.0) fL Plt Count (150-450) k/uL Neutrophils # (1.3-7.7) k/uL Lymphocytes # (1.0-4.8) k/uL PT 14.0 H (9.0-12.0) sec INR 1.4 H (<1.2) Sodium (137-145) mmol/L BUN (7-17) mg/dL Creatinine (0.52-1.04) mg/dL Glucose (74-99) mg/dL POC Glucose (mg/dL) 139 H (70-110) mg/dL Calcium (8.4-10.2) mg/dL Troponin I 0.095 H* (0.000-0.034) ng/mL 02/05/23 Range/Units 11:45 WBC (3.8-10.6) k/uL RBC (3.80-5.40) m/uL Hgb (11.4-16.0) gm/dL Hct (34.0-46.0) % MCV (80.0-100.0) fL Plt Count (150-450) k/uL Neutrophils # (1.3-7.7) k/uL Lymphocytes # (1.0-4.8) k/uL PT (9.0-12.0) sec INR (<1.2) Sodium (137-145) mmol/L BUN (7-17) mg/dL Creatinine (0.52-1.04) mg/dL Glucose (74-99) mg/dL POC Glucose (mg/dL) 220 H (70-110) mg/dL Calcium (8.4-10.2) mg/dL Troponin I (0.000-0.034) ng/mL H & H 02/04/23 02/05/23 Range/Units 10:07 04:35 Hgb 12.0 9.7 L D (11.4-16.0) gm/dL Hct 35.6 30.2 L (34.0-46.0) % Coagulation 02/04/23 02/05/23 Range/Units 10:07 05:33 INR 1.2 H 1.4 H (<1.2) Result Diagrams: 02/05/23 04:35 02/05/23 04:35 Assessment and Plan Assessment: Assessment: L3-4 spondylolisthesis L3-4 severe spinal stenosis L4-5 moderate to severe spinal stenosis L2-3 mild to moderate spinal stenosis Lumbar foraminal stenosis Lumbar degenerative disc disease Lumbar facet arthropathy Lumbar disc herniation Neurogenic claudication Bilateral lower extremity generalized weakness Fever presentation, resolved Elevated WBC presentation Acute hypoxic respiratory failure due to congestive heart failure Hypertension Hyperlipidemia Elevated troponin levels (1) Lumbar stenosis with neurogenic claudication Current Visit: Yes Status: Acute Code(s): M48.062 - SPINAL STENOSIS, LUMBAR REGION WITH NEUROGENIC CLAUDICATION SNOMED Code(s): 19781655 (2) Spondylolisthesis at L3-L4 level Current Visit: Yes Status: Acute Code(s): M43.16 - SPONDYLOLISTHESIS, LUMBAR REGION SNOMED Code(s): 458844242641078 (3) Lumbar degenerative disc disease Current Visit: Yes Status: Acute Code(s): M51.36 - OTHER INTERVERTEBRAL DISC DEGENERATION, LUMBAR REGION SNOMED Code(s): 90753493 (4) Lumbar facet arthropathy Current Visit: Yes Status: Acute Code(s): M47.816 - SPONDYLOSIS W/O MYELOPATHY OR RADICULOPATHY, LUMBAR REGION SNOMED Code(s): 101042898 (5) Lumbar disc herniation Current Visit: Yes Status: Acute Code(s): M51.26 - OTHER INTERVERTEBRAL DISC DISPLACEMENT, LUMBAR REGION SNOMED Code(s): 737480024 (6) Generalized weakness Current Visit: Yes Status: Acute Code(s): R53.1 - WEAKNESS SNOMED Code(s): 20963080 (7) Elevated WBC count Current Visit: Yes Status: Acute Code(s): D72.829 - ELEVATED WHITE BLOOD CELL COUNT, UNSPECIFIED SNOMED Code(s): 528933504 (8) Hyperlipidemia Current Visit: Yes Status: Acute Code(s): E78.5 - HYPERLIPIDEMIA, UNSPECIFIED SNOMED Code(s): 23213228 (9) Hypertension Current Visit: Yes Status: Acute Code(s): I10 - ESSENTIAL (PRIMARY) HYPERTENSION SNOMED Code(s): 81533707 (10) Elevated troponin Current Visit: Yes Status: Acute Code(s): R77.8 - OTHER SPECIFIED ABNORMALITIES OF PLASMA PROTEINS SNOMED Code(s): 261518527 (11) Acute respiratory failure with hypoxia Current Visit: Yes Status: Acute Code(s): J96.01 - ACUTE RESPIRATORY FAILURE WITH HYPOXIA SNOMED Code(s): 13589575 (12) Congestive heart failure Current Visit: Yes Status: Acute Code(s): I50.9 - HEART FAILURE, UNSPECIFIED SNOMED Code(s): 74561520 (13) Fever Current Visit: Yes Status: Acute Code(s): R50.9 - FEVER, UNSPECIFIED SNOMED Code(s): 181015284 Plan: Plan: 1. Patient does experience neurogenic claudication and has evidence of multilevel lumbar spinal canal stenosis. She has significant degenerative changes at her lumbar spine most significant at L2-3, L3-4, and L4-5. She is well-known to our service and is seen and evaluated with treatment in the outpatient setting. Patient states at the bedside she does not have any interest in surgical intervention at her lumbar spine. She also states she is not currently experiencing any pain in regards to her bilateral lower extremities or lumbar spine. She does admit to generalized weakness and feels she needs physical therapy. She would like to exhaust conservative treatment with physical therapy. We had previously discussed an outpatient setting she were to fail conservative treatment options, she is a candidate for surgical intervention. We have discussed she is a candidate for an L2-3, L3-4, and L4-5 minimally invasive posterior lateral decompression and fusion with transforaminal lumbar interbody fusion. At this time, she will plan to work with physical therapy during her admission to the hospital. While at the bedside, patient is able to contact the physical therapy department at [facility] to adjust her sched ul appointment time. She is planning for evaluation and treatment with physical therapy in the outpatient setting following discharge. From an orthopedic spine standpoint, patient is clear for discharge. Patient will plan to follow up for further evaluation the spring previous E discussed. We did discuss if her symptoms are not improving or are worsening, she may contact the office to set up a follow-up appointment prior to traveling to [place] for the winter. 2. Patient will continue be seen exam by multiple medical providers for her other medical diagnoses including medicines, pulmonology, and cardiology Time with Patient: Greater than 30 (Including obtaining history, physical examination, reviewing of imaging, and dictation.)
--- NOTE | 2023-02-05 15:47 | CA ---
Transthoracic Echo Report Name: Basia Hardy Age: 77 Gender: F : 1945 Exam Date: 02/05/2023 14:08 Exam Location: [place] [facility] Ht (in): 64 Wt (lb): 171 Ordering Physician: Marietta Hays Attending/Referring Phys: [id number], Saúl [employer] Vidal Harper Procedure CPT: Indications: lv function, elevated trops Cardiac Hx: Technical Quality: Fair Contrast 1: Total Dose (mL): Contrast 2: Total Dose (mL): MEASUREMENTS (Male / Female) Normal Values 2D ECHO LV Diastolic Diameter PLAX 4.6 cm 4.2 - 5.9 / 3.9 - 5.3 cm LV Systolic Diameter PLAX 3.4 cm IVS Diastolic Thickness 1.6 cm 0.6 - 1.0 / 0.6 - 0.9 cm LVPW Diastolic Thickness 1.4 cm 0.6 - 1.0 / 0.6 - 0.9 cm LV Relative Wall Thickness 0.6 RV Internal Dim ED PLAX 2.5 cm LVOT Diameter 2.0 cm Aortic Root Diameter 2.9 cm LA Systolic Diameter LX 2.6 cm 3.0 - 4.0 / 2.7 - 3.8 cm LV Diastolic Volume MOD BP 69.6 cm??? 67 - 155 / 56 - 104 cm??? LV Systolic Volume MOD BP 34.3 cm??? 22 - 58 / 19 - 49 cm??? LV Ejection Fraction MOD BP 50.8 % >= 55 % LV Cardiac Index MOD BP 1212.3 cm???/min???m??? LV Diastolic Volume MOD 4C 70.1 cm??? LV Systolic Volume MOD 4C 37.9 cm??? LV Ejection Fraction MOD 4C 45.9 % LV Cardiac Index MOD 4C 1102.4 cm???/min???m??? LV Diastolic Length 4C 7.2 cm LV Systolic Length 4C 5.8 cm LV Diastolic Volume MOD 2C 70.0 cm??? LV Systolic Volume MOD 2C 31.1 cm??? LV Ejection Fraction MOD 2C 55.6 % LV Cardiac Index MOD 2C 1336.1 cm???/min???m??? LV Diastolic Length 2C 7.2 cm LV Systolic Length 2C 5.8 cm LA Volume 81.5 cm??? 18 - 58 / 22 - 52 cm??? Ascending Aorta Diameter 2.8 cm DOPPLER AV Peak Velocity 156.2 cm/s AV Peak Gradient 9.8 mmHg AV Mean Velocity 121.8 cm/s AV Mean Gradient 6.6 mmHg AV Velocity Time Integral 44.7 cm LVOT Peak Velocity 85.6 cm/s LVOT Peak Gradient 2.9 mmHg LVOT Velocity Time Integral 20.3 cm LVOT Stroke Volume 60.6 cm??? LVOT Stroke Volume Index 33.1 ml/m??? LVOT Cardiac Index 2079.8 cm???/min???m??? AV Area Cont Eq vti 1.4 cm??? AV Area Cont Eq pk 1.6 cm??? MV Peak Velocity 112.8 cm/s MV Peak Gradient 5.1 mmHg MV Mean Velocity 51.1 cm/s MV Mean Gradient 1.3 mmHg MV Velocity Time Integral 38.7 cm MR Peak Velocity 464.6 cm/s MR Peak Gradient 86.3 mmHg Mitral E Point Velocity 104.7 cm/s Mitral A Point Velocity 59.4 cm/s Mitral E to A Ratio 1.8 MV Deceleration Time 221.6 ms MV E' Velocity 5.8 cm/s Mitral E to MV E' Ratio 18.0 TR Peak Velocity 221.8 cm/s TR Peak Gradient 19.7 mmHg Right Ventricular Systolic Press 24.7 mmHg FINDINGS Left Ventricle Normal LV size. Mild concentric LVH. Left ventricular ejection fraction is estimated at 50-55 %. Right Ventricle Normal right ventricular size. RVSP= 26mmHg. Right Atrium Normal right atrial size. Left Atrium Mild left atrial dilatation. LA volume index= 44.5ml/m2 Mitral Valve Mild mitral valve prolapse best noted in two chamber view. Mild to moderate mitral regurgitation Aortic Valve Trileaflet aortic valve. Mild sclerosis. Trace AI. Tricuspid Valve Structurally normal tricuspid valve. Mild TR. Pulmonic Valve Structurally normal pulmonic valve. No pulmonic regurgitation. Pericardium Normal pericardium. Aorta Normal size aortic root and proximal ascending aorta. CONCLUSIONS Left ventricular ejection fraction 50-55% Mild increased left ventricular wall thickness RVSP 25 Mild dilated left atrium Mild to moderate mitral regurgitation Mild tricuspid regurgitation Previewed by: Dr. Rory Winters DO (Electronically Signed) Final Date: 05 February 2023 15:46
[2023-02-05 16:33] LABS: Glucose,Whole Blood 131 mg/dL (70-110)
[2023-02-05] MEDS: HEPARIN SODIUM,PORCINE 5,000 UNIT/ML 1 ML VIAL SQ SCH ×2 (17:26→20:54)
[2023-02-05 20:46] LABS: Glucose,Whole Blood 152 mg/dL (70-110)
[2023-02-05] MEDS: METOPROLOL SUCCINATE (ER) 50 MG TAB.ER.24H PO SCH (20:50)
[2023-02-06] MEDS: methylPREDNISolone SOD SUCCI 125 MG/2 ML VIAL IV SCH ×2 (06:14→12:45)
[2023-02-06] MEDS: INSULIN ASPART (NovoLOG) 100 UNIT/ML VIAL SQ SCH ×3 (06:14→17:19)
[2023-02-06 06:16] LABS: Glucose,Whole Blood 152 mg/dL (70-110)
[2023-02-06 07:46] LABS: INR 1.4 (<1.2); Prothrombin Time 13.7 sec (9.0-12.0)
[2023-02-06 07:53] LABS: Basophils % (A) 0 %; Eosinophils % (A) 0 %; HCT 32.5 % (34.0-46.0); HGB 10.6 gm/dL (11.4-16.0); Lymphocytes # (A) 1.5 k/uL (1.0-4.8); Lymphocytes % (A) 10 %; MCH 34.5 pg (25.0-35.0); MCHC 32.5 g/dL (31.0-37.0); MCV 106.1 fL (80.0-100.0); Macrocytosis Moderate; Mean Platelet Volume 9.3; Monocytes # (A) 0.6 k/uL (0-1.0); Monocytes % (A) 4 %; Neutrophils # (A) 12.9 k/uL (1.3-7.7); Neutrophils % (A) 85 %; RBC 3.06 m/uL (3.80-5.40); WBC 15.2 k/uL (3.8-10.6)
[2023-02-06 07:55] LABS: Platelet Count 92 k/uL (150-450)
[2023-02-06 08:06] LABS: African American GFR (CKD) 35 (>60 ml/min/1.73 sqM); Anion Gap 5 mmol/L; Blood Urea Nitrogen 57 mg/dL (7-17); Calcium 8.5 mg/dL (8.4-10.2); Carbon Dioxide 24 mmol/L (22-30); Chloride 104 mmol/L (98-107); Glucose 140 mg/dL (74-99); Non-African American GFR(CKD) 31 (>60 ml/min/1.73 sqM); Potassium 4.1 mmol/L (3.5-5.1); Sodium 133 mmol/L (137-145)
[2023-02-06] MEDS: AZITHROMYCIN 500 MG TAB PO SCH (09:20)
[2023-02-06] MEDS: MAGNESIUM OXIDE 400 MG TAB PO SCH (09:20)
[2023-02-06] MEDS: CHOLECALCIFEROL 125 MCG (5000 IU) TABLET PO SCH (09:20)
[2023-02-06] MEDS: CALCIUM CARB-VIT D 500 MG-5 MCG TAB PO SCH (09:20)
[2023-02-06] MEDS: CYANOCOBALAMIN 500 MCG TAB PO SCH (09:20)
[2023-02-06] MEDS: FOLIC ACID 1 MG TAB PO SCH (09:20)
[2023-02-06] MEDS: FERROUS SULFATE 325 MG TAB PO SCH (09:20)
[2023-02-06] MEDS: HEPARIN SODIUM,PORCINE 5,000 UNIT/ML 1 ML VIAL SQ SCH ×3 (09:20→20:13)
[2023-02-06] MEDS: VIT A,C & E-LUTEIN-MINERALS 1 EACH TAB PO SCH ×2 (09:21→22:51)
[2023-02-06] MEDS: POTASSIUM CHLORIDE ER 10 MEQ TAB.ER.PRT PO SCH (09:21)
[2023-02-06] MEDS: IPRATROPIUM-ALBUTEROL 3 ML NEB INHALATION SCH ×3 (09:26→22:17)
[2023-02-06] MEDS: FUROSEMIDE 10 MG/ML 2 ML VIAL IV SCH (10:12)
--- NOTE | 2023-02-06 11:42 | P.PN ---
Subjective HISTORY OF PRESENT ILLNESS: This is a 77-year-old female with a past medical history significant for nonischemic cardiomyopathy, left bundle branch block, hypertension, hyperlipidemia, and valvular heart disease. Patient follows in the office with Dr. Gonzalez. We have been asked to see the patient in consultation for abnormal troponins. Patient examined at the bedside. Patient states she has been having leg weakness for the past several weeks. She states that she did see an orthopedic physician who told her she had spinal stenosis and this may be causing some of her issues. She states yesterday it was so bad that she was unable to move her legs to get out of bed which prompted her to come to the emergency room. She denies any chest pain or pressure. She does report some shortness of breath for the past week. She states that she thought it was secondary to her asthma. The patient was found to have elevated troponins and was started on IV heparin. She was also found to have mild congestive heart failure and started on IV Lasix. Patient is also being treated for possible pneumonia. The patient does report having chills 2 nights ago at home. * EKG reveals sinus mechanism with left bundle branch block. * Chest xray cardiomegaly and mild pulmonary vascular congestion * Laboratory data: WBC 12.5. Hemoglobin 9.7. Platelet count 69. Sodium 132. Potassium 4.1. BUN 41. Creatinine 1.25. Troponin 0.082. 0.170. 0.095. * Current home cardiac medications include Lasix 40 mg daily, metoprolol succinate 50 mg at night * Most recent echocardiogram obtained in January 2022 revealing ejection fraction 40%, moderate MR, mild AR * Cardiac catheterization history: December 2020 revealing minimal coronary artery disease 02/06/2023 Patient examined this morning at the bedside. Patient denies chest pain or pressure. She denies shortness of breath. Patient's creatinine increased today to 1.6. She is currently on IV Lasix. Echocardiogram completed revealing ejection fraction 50-55% with mild to moderate MR. PHYSICAL EXAM: VITAL SIGNS: Reviewed. GENERAL: Well-developed in no acute distress. HEENT: Head is normocephalic. Pupils are equal, round. Sclerae anicteric. Mucous membranes of the mouth are moist. Neck supple. No JVD or thyromegaly LUNGS: Respirations even and unlabored. Lungs diminished with mild expiratory wheezing HEART: Regular rate and rhythm. S1 and S2 heard. Systolic murmur noted. ABDOMEN: Soft. Nondistended. Nontender. EXTREMITIES: Normal range of motion. No clubbing or cyanosis. Peripheral pulses intact. Trace bilateral lower extremity edema NEUROLOGIC: Awake and alert. Oriented x 3. ASSESSMENT: Bilateral lower extremity weakness with history of spinal stenosis Acute on chronic heart failure with reduced ejection fraction Possible pneumonia Elevated troponins, likely secondary to above, no evidence of acute coronary syndrome Nonischemic cardiomyopathy Hypertension Hyperlipidemia Valvular heart disease PLAN: Continue current cardiac medications Discontinue IV Lasix Resume oral Lasix beginning tomorrow Monitor kidney function Further recommendations pending patient's course Nurse practitioner note has been reviewed by physician. Signing provider agrees with the documented findings, assessment, and plan of care. Objective - Vital Signs Vital signs: Vital Signs Temp 98.0 F 02/06/23 08:00 Pulse 60 02/06/23 09:38 Resp 16 02/06/23 08:00 BP 165/75 02/06/23 08:00 Pulse Ox 98 02/06/23 08:00 FiO2 Intake & Output 02/05/23 02/06/23 02/06/23 18:59 06:59 18:59 Intake Total 588.422 Output Total 650 700 Balance -61.578 -700 Weight 77.5 kg Intake: Intake, IV Titration 48.422 Amount Heparin Sod,Pork in 0.45% 48.422 NaCl 25,000 unit In 0.45 % NaCl 1 250ml.bag @ 12 UNITS/KG/HR 9.312 mls/hr IV .Q24H [facility] Rx#: [id number] Oral 540 Output: Urine 650 700 - Labs CBC & Chem 7: 02/06/23 06:56 02/06/23 06:56 Labs: Abnormal Lab Results - Last 24 Hours (Table) 02/05/23 02/05/23 02/05/23 Range/Units 04:35 11:45 16:31 WBC (3.8-10.6) k/uL RBC (3.80-5.40) m/uL Hgb (11.4-16.0) gm/dL Hct (34.0-46.0) % MCV (80.0-100.0) fL Plt Count (150-450) k/uL Neutrophils # (1.3-7.7) k/uL PT (9.0-12.0) sec INR (<1.2) Sodium (137-145) mmol/L BUN (7-17) mg/dL Creatinine (0.52-1.04) mg/dL Glucose (74-99) mg/dL POC Glucose (mg/dL) 220 H 131 H (70-110) mg/dL Procalcitonin 10.40 H (0.02-0.09) ng/mL 02/05/23 02/06/23 02/06/23 Range/Units 20:44 06:13 06:56 WBC 15.2 H (3.8-10.6) k/uL RBC 3.06 L (3.80-5.40) m/uL Hgb 10.6 L (11.4-16.0) gm/dL Hct 32.5 L (34.0-46.0) % MCV 106.1 H (80.0-100.0) fL Plt Count 92 L (150-450) k/uL Neutrophils # 12.9 H (1.3-7.7) k/uL PT (9.0-12.0) sec INR (<1.2) Sodium (137-145) mmol/L BUN (7-17) mg/dL Creatinine (0.52-1.04) mg/dL Glucose (74-99) mg/dL POC Glucose (mg/dL) 152 H 152 H (70-110) mg/dL Procalcitonin (0.02-0.09) ng/mL 02/06/23 02/06/23 Range/Units 06:56 06:56 WBC (3.8-10.6) k/uL RBC (3.80-5.40) m/uL Hgb (11.4-16.0) gm/dL Hct (34.0-46.0) % MCV (80.0-100.0) fL Plt Count (150-450) k/uL Neutrophils # (1.3-7.7) k/uL PT 13.7 H (9.0-12.0) sec INR 1.4 H (<1.2) Sodium 133 L (137-145) mmol/L BUN 57 H (7-17) mg/dL Creatinine 1.60 H (0.52-1.04) mg/dL Glucose 140 H (74-99) mg/dL POC Glucose (mg/dL) (70-110) mg/dL Procalcitonin (0.02-0.09) ng/mL Microbiology - Last 24 Hours (Table) 02/04/23 12:00 Blood Culture - Preliminary Blood
[2023-02-06 12:06] LABS: Glucose,Whole Blood 153 mg/dL (70-110)
--- NOTE | 2023-02-06 14:04 | P.PN ---
Subjective Progress Note Date: 02/06/23 Principal diagnosis: Acute on chronic diastolic congestive heart failure, possible underlying pneumonia. With elevated pro calcitonin level I am seeing this patient in consultation today 02/05/2023 after she presented with shortness of breath and fever. Patient is a 77-year-old white female with past medical history significant for mild intermittent bronchial asthma, congest olu heart failure, spinal stenosis, hypertension, hyperlipidemia, and chronic kidney disease. She does follow with Dr. Hood in the office. Patient presented to the emergency room yesterday morning complaining mostly of lower extremity weakness. She is known to have spinal canal stenosis, and follows with Dr. Pringle. She did recently have a MRI of the lumbar spine which showed severe central stenosis at L4 through L5 with mild central stenosis at L3 to L4 and L5 to S1. Multilevel degenerative disc disease. She is also reporting shortness of breath that has been progressive over the last couple days. She also had a temperature on arrival with a T-max of 100F. Denies any cough, chest pain. Denies sick contacts. Denies heart palpitations, lightheadedness, syncope. She does have chronic lower extremity swelling, but states this is not worse than normal. Patient is currently sitting up in bed, on 3 L/m nasal cannula, in no acute distress. Chest x-ray on arrival showed cardiomegaly with mild pulmonary vascular congestion. There is also possible lower lobe infiltrate concerning for possible pneumonia. CBC on arrival shows leukocytosis with WBC count of 14.3, hemoglobin 12, hematocrit 35.6, platelets 92,000. BMP shows sodium 136, potassium 5, chloride 103, serum bicarb 25, BUN 36, creatinine 1.26, glucose 91. No IV maintenance fluids. Urinalysis not concerning for UTI. Lactic acid level II. LFTs mildly elevated. Hepatitis panel negative. Troponin 0.082. NT proBNP elevated at 5090. Negative for influenza, RSV, COVID-19. Negative urine Legionella. Patient empirically started on a combination of azithromycin and Rocephin. Also started on Lasix 20 mg 3 times a day. She is hemodynamically stable. Reevaluated today on 02/06/2023, patient is feeling much better today compared to how she felt when she came in. Patient is on room air with O2 sats of 98%. De nies being in any form of distress. Remains on Zithromax and Rocephin for possible underlying pneumonia although the picture and the presentation is more of a presentation of congestive heart failure with bilateral pleural effusions. Her WBC count today is 15.2 hemoglobin is 10.6, electrolytes are normal however her BUN is 57 creatinine 1.6, slightly worse, and her dose of Lasix has been already cut down. to 40 mg orally daily. Objective - Vital Signs Vital signs: Vital Signs Temp 97.4 F L 02/06/23 11:42 Pulse 67 02/06/23 11:42 Resp 16 02/06/23 11:42 BP 152/77 02/06/23 11:42 Pulse Ox 98 02/06/23 11:42 FiO2 Intake & Output 02/05/23 02/06/23 02/06/23 18:59 06:59 18:59 Intake Total 588.422 Output Total 650 700 Balance -61.578 -700 Weight 77.5 kg Intake: Intake, IV Titration 48.422 Amount Heparin Sod,Pork in 0.45% 48.422 NaCl 25,000 unit In 0.45 % NaCl 1 250ml.bag @ 12 UNITS/KG/HR 9.312 mls/hr IV .Q24H [facility] Rx#: [id number] Oral 540 Output: Urine 650 700 - Exam GENERAL EXAM: Revealed 77-year-old female in no distress, on room air. HEAD: Normocephalic and atraumatic EYES: Normal reaction of pupils, equal size. NOSE: Clear with pink turbinates. THROAT: No erythema or exudates. NECK: No masses, no JVD. CHEST: No chest wall deformity. LUNGS: Clear throughout no crackles or rhonchi or wheezes CVS: S1 and S2 normal with soft systolic murmur grade 1/6, regular rhythm. No extra heart sounds ABDOMEN: No hepatosplenomegaly, active bowel sounds, no guarding or rigidity. SKIN: No rashes CENTRAL NERVOUS SYSTEM: Alert and oriented 3 in no gross focal deficits. EXTREMITIES: No clubbing, trace of edema, no cyanosis - Labs CBC & Chem 7: 02/06/23 06:56 02/06/23 06:56 Labs: Abnormal Lab Results - Last 24 Hours (Table) 02/05/23 02/05/23 02/05/23 Range/Units 04:35 16:31 20:44 WBC (3.8-10.6) k/uL RBC (3.80-5.40) m/uL Hgb (11.4-16.0) gm/dL Hct (34.0-46.0) % MCV (80.0-100.0) fL Plt Count (150-450) k/uL Neutrophils # (1.3-7.7) k/uL PT (9.0-12.0) sec INR (<1.2) Sodium (137-145) mmol/L BUN (7-17) mg/dL Creatinine (0.52-1.04) mg/dL Glucose (74-99) mg/dL POC Glucose (mg/dL) 131 H 152 H (70-110) mg/dL Procalcitonin 10.40 H (0.02-0.09) ng/mL 02/06/23 02/06/23 02/06/23 Range/Units 06:13 06:56 06:56 WBC 15.2 H (3.8-10.6) k/uL RBC 3.06 L (3.80-5.40) m/uL Hgb 10.6 L (11.4-16.0) gm/dL Hct 32.5 L (34.0-46.0) % MCV 106.1 H (80.0-100.0) fL Plt Count 92 L (150-450) k/uL Neutrophils # 12.9 H (1.3-7.7) k/uL PT 13.7 H (9.0-12.0) sec INR 1.4 H (<1.2) Sodium (137-145) mmol/L BUN (7-17) mg/dL Creatinine (0.52-1.04) mg/dL Glucose (74-99) mg/dL POC Glucose (mg/dL) 152 H (70-110) mg/dL Procalcitonin (0.02-0.09) ng/mL 02/06/23 02/06/23 Range/Units 06:56 12:03 WBC (3.8-10.6) k/uL RBC (3.80-5.40) m/uL Hgb (11.4-16.0) gm/dL Hct (34.0-46.0) % MCV (80.0-100.0) fL Plt Count (150-450) k/uL Neutrophils # (1.3-7.7) k/uL PT (9.0-12.0) sec INR (<1.2) Sodium 133 L (137-145) mmol/L BUN 57 H (7-17) mg/dL Creatinine 1.60 H (0.52-1.04) mg/dL Glucose 140 H (74-99) mg/dL POC Glucose (mg/dL) 153 H (70-110) mg/dL Procalcitonin (0.02-0.09) ng/mL Microbiology - Last 24 Hours (Table) 02/04/23 12:00 Blood Culture - Preliminary Blood Assessment and Plan Assessment: Acute hypoxemic respiratory failure, possibly multifactorial related to a combination of acute on chronic diastolic congestive heart failure and possible lower lobe community-acquired pneumonia. Especially with elevated pro calciton in level although the chest x-ray is showing mostly bilateral small pleural effusions History of combined systolic and diastolic congestive heart failure. Most recent echocardiogram from 02/08/2022 shows a reduced left ventricular ejection fraction of 40%. There was also evidence of grade 3 diastolic dysfunction. Moderate concentric left ventricular hypertrophy, mild to moderate tricuspid regurgitation, and moderate mitral regurgitation. a follow-up echocardiogram on this admission showed good LV function Spinal stenosis involving the lumbar spine. Recent MRI of the lumbar spine showed severe central stenosis at L4 through L5 with mild central stenosis at L3 to L4 and L5-S1 Bilateral lower extremity weakness, possibly secondary to above Elevated LFTs, negative hepatitis panel Benign essential hypertension Hyperlipidemia Chronic kidney disease stage III Recommendation: Continue present treatment plan continue diuretics continue antibiotics and when the patient is discharged home could be transitioned to oral antibiotics discontinue Solu-Medrol continue bronchodilators we will continue to follow and again were clearing the patient for discharge if cleared by cardiology Time with Patient: Less than 30
[2023-02-06 16:17] LABS: Glucose,Whole Blood 176 mg/dL (70-110)
[2023-02-06] MEDS: METOPROLOL SUCCINATE (ER) 50 MG TAB.ER.24H PO SCH (20:12)
--- NOTE | 2023-02-06 20:49 | PN ---
PROGRESS NOTE DATE OF SERVICE: 02/06/2023 SUBJECTIVE: This is a 77-year-old woman who was admitted with shortness of breath and CHF acute exacerbation, also being evaluated for possible pneumonia. No chest pain, no palpitation. OBJECTIVE: VITAL SIGNS: Pulse is 67, blood pressure 150/70, respirations 16. CHEST: Few scattered rhonchi. ABDOMEN: Soft. NERVOUS SYSTEM: No focal deficits. LABORATORIES: Reviewed. ASSESSMENT: 1. Shortness of breath, possible CHF acute exacerbation. 2. Fever, possibly pneumonia. 3. Troponin 0.170, rule out acute ecm-SO-amoocge elevation myocardial infarction. 4. Elevated WBC. 5. Spinal stenosis. 6. Asthma, acute exacerbation. 7. Hypertension. 8. History of DJD. RECOMMENDATIONS: Recommended to continue current management, continue symptomatic treatment. Repeat labs, otherwise continue with p.o. Lasix. Continue with antibiotics. Closely follow with multiple consultants including Pulmonary and Cardiology. Further recommendations to follow. MMODL / IJN: [id number] /
[2023-02-07 08:09] VITALS: BP 160/76; PULSE 57; RESP 18; TEMP 98.1
[2023-02-07 08:41] LABS: African American GFR (CKD) 44 (>60 ml/min/1.73 sqM); Anion Gap 5 mmol/L; Blood Urea Nitrogen 60 mg/dL (7-17); Calcium 8.7 mg/dL (8.4-10.2); Carbon Dioxide 23 mmol/L (22-30); Chloride 104 mmol/L (98-107); Glucose 115 mg/dL (74-99); Non-African American GFR(CKD) 38 (>60 ml/min/1.73 sqM); Potassium 4.2 mmol/L (3.5-5.1); Sodium 132 mmol/L (137-145)
[2023-02-07 08:44] LABS: Basophils % (A) 0 %; Eosinophils % (A) 0 %; HCT 36.2 % (34.0-46.0); HGB 11.5 gm/dL (11.4-16.0); Lymphocytes # (A) 1.2 k/uL (1.0-4.8); Lymphocytes % (A) 13 %; MCH 34.4 pg (25.0-35.0); MCHC 31.9 g/dL (31.0-37.0); MCV 107.7 fL (80.0-100.0); Macrocytosis Moderate; Monocytes # (A) 0.6 k/uL (0-1.0); Monocytes % (A) 6 %; Neutrophils # (A) 7.8 k/uL (1.3-7.7); Neutrophils % (A) 80 %; RBC 3.36 m/uL (3.80-5.40); RDW 13.8 % (11.5-15.5); WBC 9.7 k/uL (3.8-10.6)
[2023-02-07 08:46] LABS: Platelet Count 91 k/uL (150-450)
[2023-02-07] MEDS ORDERED: amLODIPine 5 MG TAB PO SCH (09:00)
[2023-02-07] MEDS ORDERED: FUROSEMIDE 40 MG TAB PO SCH (09:00)
[2023-02-07] MEDS: IPRATROPIUM-ALBUTEROL 3 ML NEB INHALATION SCH (09:02)
[2023-02-07] MEDS: CYANOCOBALAMIN 500 MCG TAB PO SCH (09:30)
[2023-02-07] MEDS: HEPARIN SODIUM,PORCINE 5,000 UNIT/ML 1 ML VIAL SQ SCH (09:31)
[2023-02-07] MEDS: MAGNESIUM OXIDE 400 MG TAB PO SCH (09:31)
[2023-02-07] MEDS: POTASSIUM CHLORIDE ER 10 MEQ TAB.ER.PRT PO SCH (09:31)
[2023-02-07] MEDS: FERROUS SULFATE 325 MG TAB PO SCH (09:31)
[2023-02-07] MEDS: FOLIC ACID 1 MG TAB PO SCH (09:31)
[2023-02-07] MEDS: CHOLECALCIFEROL 125 MCG (5000 IU) TABLET PO SCH (09:31)
[2023-02-07] MEDS: CALCIUM CARB-VIT D 500 MG-5 MCG TAB PO SCH (09:31)
[2023-02-07] MEDS: VIT A,C & E-LUTEIN-MINERALS 1 EACH TAB PO SCH (09:31)
--- NOTE | 2023-02-07 12:00 | P.PN ---
Subjective HISTORY OF PRESENT ILLNESS: This is a 77-year-old female with a past medical history significant for nonischemic cardiomyopathy, left bundle branch block, hypertension, hyperlipidemia, and valvular heart disease. Patient follows in the office with Dr. Gonzalez. We have been asked to see the patient in consultation for abnormal troponins. Patient examined at the bedside. Patient states she has been having leg weakness for the past several weeks. She states that she did see an orthopedic physician who told her she had spinal stenosis and this may be causing some of her issues. She states yesterday it was so bad that she was unable to move her legs to get out of bed which prompted her to come to the emergency room. She denies any chest pain or pressure. She does report some shortness of breath for the past week. She states that she thought it was secondary to her asthma. The patient was found to have elevated troponins and was started on IV heparin. She was also found to have mild congestive heart failure and started on IV Lasix. Patient is also being treated for possible pneumonia. The patient does report having chills 2 nights ago at home. * EKG reveals sinus mechanism with left bundle branch block. * Chest xray cardiomegaly and mild pulmonary vascular congestion * Laboratory data: WBC 12.5. Hemoglobin 9.7. Platelet count 69. Sodium 132. Potassium 4.1. BUN 41. Creatinine 1.25. Troponin 0.082. 0.170. 0.095. * Current home cardiac medications include Lasix 40 mg daily, metoprolol succinate 50 mg at night * Most recent echocardiogram obtained in January 2022 revealing ejection fraction 40%, moderate MR, mild AR * Cardiac catheterization history: December 2020 revealing minimal coronary artery disease 02/06/2023 Patient examined this morning at the bedside. Patient denies chest pain or pressure. She denies shortness of breath. Patient's creatinine increased today to 1.6. She is currently on IV Lasix. Echocardiogram completed revealing ejection fraction 50-55% with mild to moderate MR. 02/07/2023 Patient examined this morning at the bedside. She denies chest pain or pressure. She denies shortness of breath. She has been transitioned to oral Lasix. Creatinine today is improved at 1.34. Blood pressure elevated with a systolic in the 160s. PHYSICAL EXAM: VITAL SIGNS: Reviewed. GENERAL: Well-developed in no acute distress. HEENT: Head is normocephalic. Pupils are equal, round. Sclerae anicteric. Mucous membranes of the mouth are moist. Neck supple. No JVD or thyromegaly LUNGS: Respirations even and unlabored. Lungs diminished with mild expiratory wheezing HEART: Regular rate and rhythm. S1 and S2 heard. Systolic murmur noted. ABDOMEN: Soft. Nondistended. Nontender. EXTREMITIES: Normal range of motion. No clubbing or cyanosis. Peripheral pulses intact. Trace bilateral lower extremity edema NEUROLOGIC: Awake and alert. Oriented x 3. ASSESSMENT: Bilateral lower extremity weakness with history of spinal stenosis Acute on chronic heart failure with reduced ejection fraction Possible pneumonia Elevated troponins, likely secondary to above, no evidence of acute coronary syndrome Nonischemic cardiomyopathy Hypertension Hyperlipidemia Valvular heart disease PLAN: Continue current cardiac medications Continue oral Lasix Add amlodipine 5 mg daily for optimal blood pressure control Patient is stable for discharge home today from a cardiac standpoint Nurse practitioner note has been reviewed by physician. Signing provider agrees with the documented findings, assessment, and plan of care. Objective - Vital Signs Vital signs: Vital Signs Temp 98.1 F 02/07/23 08:00 Pulse 57 L 02/07/23 08:00 Resp 18 02/07/23 08:00 BP 160/76 02/07/23 08:00 Pulse Ox 96 02/07/23 09:01 FiO2 Intake & Output 02/06/23 02/07/23 02/07/23 18:59 06:59 18:59 Intake Total 240 240 Output Total 650 300 500 Balance -410 -300 -260 Intake: Oral 240 240 Output: Urine 650 300 500 - Labs CBC & Chem 7: 02/07/23 07:10 02/07/23 07:10 Labs: Abnormal Lab Results - Last 24 Hours (Table) 02/06/23 02/06/23 02/07/23 Range/Units 12:03 16:13 07:10 RBC 3.36 L (3.80-5.40) m/uL MCV 107.7 H (80.0-100.0) fL Plt Count 91 L (150-450) k/uL Neutrophils # 7.8 H (1.3-7.7) k/uL Sodium (137-145) mmol/L BUN (7-17) mg/dL Creatinine (0.52-1.04) mg/dL Glucose (74-99) mg/dL POC Glucose (mg/dL) 153 H 176 H (70-110) mg/dL 02/07/23 Range/Units 07:10 RBC (3.80-5.40) m/uL MCV (80.0-100.0) fL Plt Count (150-450) k/uL Neutrophils # (1.3-7.7) k/uL Sodium 132 L (137-145) mmol/L BUN 60 H (7-17) mg/dL Creatinine 1.34 H (0.52-1.04) mg/dL Glucose 115 H (74-99) mg/dL POC Glucose (mg/dL) (70-110) mg/dL Microbiology - Last 24 Hours (Table) 02/04/23 12:00 Blood Culture - Preliminary Blood
--- NOTE | 2023-02-07 12:38 | P.EN ---
. Patient will require nebulizer on discharge as she will be continuing duoneb treatments four times daily to manage COPD
--- NOTE | 2023-02-07 13:22 | P.PN ---
Subjective Progress Note Date: 02/07/23 Principal diagnosis: Acute on chronic diastolic congestive heart failure, possible underlying pneumonia. With elevated pro calcitonin level I am seeing this patient in consultation today 02/05/2023 after she presented with shortness of breath and fever. Patient is a 77-year-old white female with past medical history significant for mild intermittent bronchial asthma, congest olu heart failure, spinal stenosis, hypertension, hyperlipidemia, and chronic kidney disease. She does follow with Dr. Hood in the office. Patient presented to the emergency room yesterday morning complaining mostly of lower extremity weakness. She is known to have spinal canal stenosis, and follows with Dr. Pringle. She did recently have a MRI of the lumbar spine which showed severe central stenosis at L4 through L5 with mild central stenosis at L3 to L4 and L5 to S1. Multilevel degenerative disc disease. She is also reporting shortness of breath that has been progressive over the last couple days. She also had a temperature on arrival with a T-max of 100F. Denies any cough, chest pain. Denies sick contacts. Denies heart palpitations, lightheadedness, syncope. She does have chronic lower extremity swelling, but states this is not worse than normal. Patient is currently sitting up in bed, on 3 L/m nasal cannula, in no acute distress. Chest x-ray on arrival showed cardiomegaly with mild pulmonary vascular congestion. There is also possible lower lobe infiltrate concerning for possible pneumonia. CBC on arrival shows leukocytosis with WBC count of 14.3, hemoglobin 12, hematocrit 35.6, platelets 92,000. BMP shows sodium 136, potassium 5, chloride 103, serum bicarb 25, BUN 36, creatinine 1.26, glucose 91. No IV maintenance fluids. Urinalysis not concerning for UTI. Lactic acid level II. LFTs mildly elevated. Hepatitis panel negative. Troponin 0.082. NT proBNP elevated at 5090. Negative for influenza, RSV, COVID-19. Negative urine Legionella. Patient empirically started on a combination of azithromycin and Rocephin. Also started on Lasix 20 mg 3 times a day. She is hemodynamically stable. Reevaluated today on 02/06/2023, patient is feeling much better today compared to how she felt when she came in. Patient is on room air with O2 sats of 98%. De nies being in any form of distress. Remains on Zithromax and Rocephin for possible underlying pneumonia although the picture and the presentation is more of a presentation of congestive heart failure with bilateral pleural effusions. Her WBC count today is 15.2 hemoglobin is 10.6, electrolytes are normal however her BUN is 57 creatinine 1.6, slightly worse, and her dose of Lasix has been already cut down. to 40 mg orally daily. Reevaluated today on 02/07/2023, patient continues to do fairly well, relatively asymptomatic, breathing a lot easier. Patient is on room air, and her O2 sats is 96%. CBC is relatively normal, basic metabolic profile is normal renal functioning is better with creatinine down to 1.34. Hence I'm clearing the patient for discharge if cleared by other consultants on the case. In the meantime continue diuretics and continue antibiotics orally Objective - Vital Signs Vital signs: Vital Signs Temp 98.1 F 02/07/23 08:00 Pulse 57 L 02/07/23 08:00 Resp 18 02/07/23 08:00 BP 160/76 02/07/23 08:00 Pulse Ox 96 02/07/23 09:01 FiO2 Intake & Output 02/06/23 02/07/23 02/07/23 18:59 06:59 18:59 Intake Total 240 240 Output Total 650 300 500 Balance -410 -300 -260 Intake: Oral 240 240 Output: Urine 650 300 500 Other: # Voids 1 # Bowel Movements 1 - Exam GENERAL EXAM: Revealed 77-year-old female in no distress, on room air. HEAD: Normocephalic and atraumatic EYES: Normal reaction of pupils, equal size. NOSE: Clear with pink turbinates. THROAT: No erythema or exudates. NECK: No masses, no JVD. CHEST: No chest wall deformity. LUNGS: Clear throughout no crackles or rhonchi or wheezes CVS: S1 and S2 normal with soft systolic murmur grade 1/6, regular rhythm. No extra heart sounds ABDOMEN: No hepatosplenomegaly, active bowel sounds, no guarding or rigidity. SKIN: No rashes CENTRAL NERVOUS SYSTEM: Alert and oriented 3 in no gross focal deficits. EXTREMITIES: No clubbing, trace of edema, no cyanosis - Labs CBC & Chem 7: 02/07/23 07:10 02/07/23 07:10 Labs: Abnormal Lab Results - Last 24 Hours (Table) 02/06/23 02/07/23 02/07/23 Range/Units 16:13 07:10 07:10 RBC 3.36 L (3.80-5.40) m/uL MCV 107.7 H (80.0-100.0) fL Plt Count 91 L (150-450) k/uL Neutrophils # 7.8 H (1.3-7.7) k/uL Sodium 132 L (137-145) mmol/L BUN 60 H (7-17) mg/dL Creatinine 1.34 H (0.52-1.04) mg/dL Glucose 115 H (74-99) mg/dL POC Glucose (mg/dL) 176 H (70-110) mg/dL Microbiology - Last 24 Hours (Table) 02/04/23 12:00 Blood Culture - Preliminary Blood Assessment and Plan Assessment: Impression: Acute hypoxemic respiratory failure, possibly multifactorial related to a combination of acute on chronic diastolic congestive heart failure and possible lower lobe community-acquired pneumonia. Especially with elevated pro calcitonin level although the chest x-ray is showing mostly bilateral small pleural effusions History of combined systolic and diastolic congestive heart failure. Most recent echocardiogram from 02/08/2022 shows a reduced left ventricular ejection fraction of 40%. There was also evidence of grade 3 diastolic dysfunction. Moderate concentric left ventricular hypertrophy, mild to moderate tricuspid regurgitation, and moderate mitral regurgitation. a follow-up echocardiogram on this admission showed good LV function Spinal stenosis involving the lumbar spine. Recent MRI of the lumbar spine showed severe central stenosis at L4 through L5 with mild central stenosis at L3 to L4 and L5-S1 Bilateral lower extremity weakness, possibly secondary to above Elevated LFTs, negative hepatitis panel Benign essential hypertension Hyperlipidemia Chronic kidney disease stage III Recommendation: Continue oral antibiotics and oral diuretics We'll clear the patient for discharge planning Follow-up with Dr. Dorman on outpatient basis for her underlying COPD In the meantime continue bronchodilators Time with Patient: Less than 30
[2023-02-07] MEDS ORDERED: CYANOCOBALAMIN 500 MCG TAB PO SCH (21:00)
== END 2023-02-07 14:14 | disposition home or self-care (01) | DRG 291 ==
LOC: EC 09:54 → 3SCARD 15:19
PROVIDERS: ADMIT Hospitalist; ATTEND Hospitalist
DX: I13.0 Hypertensive heart and chronic kidney disease with heart failure and stage 1 through stage 4 chronic kidney disease, or unspecified chronic kidney disease (principal); I50.43 Acute on chronic combined systolic (congestive) and diastolic (congestive) heart failure; J18.9 Pneumonia, unspecified organism; J96.01 Acute respiratory failure with hypoxia; J45.21 Mild intermittent asthma with (acute) exacerbation; N17.9 Acute kidney failure, unspecified; M47.16 Other spondylosis with myelopathy, lumbar region; M51.06 Intervertebral disc disorders with myelopathy, lumbar region; Z20.822 Contact with and (suspected) exposure to COVID-19; I42.8 Other cardiomyopathies; N18.30 Chronic kidney disease, stage 3 unspecified; E78.5 Hyperlipidemia, unspecified; M48.061 Spinal stenosis, lumbar region without neurogenic claudication; E11.22 Type 2 diabetes mellitus with diabetic chronic kidney disease; I08.1 Rheumatic disorders of both mitral and tricuspid valves; M51.16 Intervertebral disc disorders with radiculopathy, lumbar region; I44.7 Left bundle-branch block, unspecified; M43.16 Spondylolisthesis, lumbar region; M47.26 Other spondylosis with radiculopathy, lumbar region; M48.062 Spinal stenosis, lumbar region with neurogenic claudication; R53.1 Weakness; Z79.899 Other long term (current) drug therapy; Z88.1 Allergy status to other antibiotic agents; Z88.0 Allergy status to penicillin
CPT/HCPCS: 36415; 71046; 76705; 80048; 80053; 80074; 81001; 83036; 83605; 83735; 83880; 84145; 84484; 85025; 85610; 85730; 87040; 87449; 87636; 93005; 93306; 94640; 94760; 96361; 96365; 96366; 96375; 99285

== ENCOUNTER → 2023-03-11 | Day surgery (SDC) | payer MEDICARE ==
[2023-03-08 09:35] VITALS: BMI 27.4
[~2023-03-11] MED LIST changes: +ACETAMINOPHEN TAB 500 MG TAB PO PRN; -ALPRAZolam 0.25 MG TAB PO PRN; -ALPRAZolam 0.5 MG TAB PO PRN; -ASPIRIN 325 MG TAB PO STA; +BUPIVACAINE (PF) 0.25% 30 ML VIAL SQ ONE; +DEXAMETHASONE SOD PHOSPHATE 4 MG/ML 1 ML VIAL IV ONE; +DEXAMETHASONE SOD PHOSPHATE 4 MG/ML 1 ML VIAL IVP ONE; -HEPARIN SODIUM,PORCINE 10,000 UNIT in SODIUM CHLORIDE 0.9% 1,000 ML IRRIGATION PRN; -HEPARIN SODIUM,PORCINE 2,500 UNIT in SODIUM CHLORIDE 0.9% 250 ML IRRIGATION PRN; +HEPARIN SODIUM,PORCINE/PF 5,000 UNIT/0.5 ML SYRINGE SQ PRN; +HYDROmorphone 0.5 MG/0.5 ML SYRINGE IVP PRN; +LACTATED RINGERS 1,000 ML IV SCH; +LIDOCAINE 1% (10MG/ML) FOR IV START INTRADERMA PRN; +LIDOCAINE 1% INJ 10MG/ML (20 ML MDV) ONE; +MIDAZOLAM 2 MG/2 ML VIAL IV PRN; +NALOXONE 0.4 MG/ML 1 ML VIAL IV PRN; -NITROGLYCERIN SL TABS 0.4 MG TAB SUBLINGUAL PRN; +ONDANSETRON 4 MG/2 ML VIAL IVP ONE; +PROPOFOL 10 MG/ML 20 ML VIAL IV ONE; +Pre Op ABX Message 1 EACH MISC MISCELLANE ONE; -SODIUM CHLORIDE 0.9% 1,000 ML in EMPTY BAG 1 BAG IV ONE; +SODIUM CHLORIDE 0.9% 50 ML with ceFAZolin 2,000 MG IV ONE; +ePHEDrine 50 MG/ML 1 ML VIAL ONE; +fentaNYL (PF) 50 MCG/ML 2 ML AMP ONE
[2023-03-11 08:10] LABS: Glucose,Whole Blood 91 mg/dL (70-110)
--- NOTE | 2023-03-11 08:25 | P.HPADDEND ---
H&P Addendum H&P Addendum Date: 03/11/23 patient contacted the office stating that the left leg is weaker than the right leg. We'll proceed with left quadriceps muscle biopsy instead of right.
--- NOTE | 2023-03-11 09:26 | P.OP ---
Date of Procedure: 03/11/23 Procedure(s) Performed: PREOPERATIVE DIAGNOSIS: Myositis, muscle weakness POSTOPERATIVE DIAGNOSIS: Same PROCEDURE: Left quadriceps muscle biopsy SURGEON: Olivia EBL: Edgardo Hamilton ANESTHESIA: Gen. COMPLICATIONS: None OPERATIVE PROCEDURE: Patient was placed on the operative table in supine position. The patient was then placed under general anesthesia. Left thigh was prepped and draped sterilely. A longitudinal incision was made overlying the mid aspect of the [] thigh. The subcutaneous tissues were divided using electrocautery. The fascia was then divided as well. A 3 x 1 cm piece of muscle was removed. This was cut into 3 portions and sent to the [facility] as per their instructions. The fascia was reapproximated using a running 3-0 Vicryl stitch. Subcutaneous tissues closed using 3-0 Vicryl sutures. Skin closed using a 4-0 Monocryl sutures. Skin glue was applied. DISPOSITION: Stable to recovery room
[2023-03-11 09:45] VITALS: RESP 16; TEMP 97
[2023-03-11 10:25] VITALS: BP 147/74; PULSE 72
== END ==
LOC: OR 06:55
PROVIDERS: ATTEND Surgery
DX: M60.9 Myositis, unspecified (principal); M62.81 Muscle weakness (generalized); J45.909 Unspecified asthma, uncomplicated; I25.10 Atherosclerotic heart disease of native coronary artery without angina pectoris; I10 Essential (primary) hypertension; M19.90 Unspecified osteoarthritis, unspecified site; D89.89 Other specified disorders involving the immune mechanism, not elsewhere classified; Z79.899 Other long term (current) drug therapy
CPT/HCPCS: 20205; 84132; 87636; J1100; J2405; J0690; J2001; J3010; J2704; J1644; J0665

== ENCOUNTER 2023-04-13 04:35 | Inpatient (IN) | payer MEDICARE ==
[2023-04-13 06:00] LABS: Appearance,Urine Clear (Clear); Bilirubin,Urine Negative (Negative); Blood,Urine Negative (Negative); Color,Urine Yellow; Glucose,Urine (UA) Negative (Negative); Ketones,Urine Negative (Negative); Leukocyte Esterase,Urine Negative (Negative); Nitrite,Urine Negative (Negative); PH, Urine 6.5 (5.0-8.0); Protein,Urine Trace (Negative); Specific Gravity,Urine 1.014 (1.001-1.035); Urobilinogen,Urine <2.0 mg/dL (<2.0)
[2023-04-13 06:17] LABS: Basophils % (A) 0 %; Eosinophils # (A) 0.1 k/uL (0-0.7); Eosinophils % (A) 1 %; HCT 32.3 % (34.0-46.0); HGB 10.5 gm/dL (11.4-16.0); Lymphocytes # (A) 0.6 k/uL (1.0-4.8); Lymphocytes % (A) 6 %; MCH 34.4 pg (25.0-35.0); MCHC 32.6 g/dL (31.0-37.0); MCV 105.7 fL (80.0-100.0); Macrocytosis Moderate; Mean Platelet Volume 9.4; Monocytes # (A) 0.6 k/uL (0-1.0); Monocytes % (A) 5 %; Neutrophils # (A) 9.3 k/uL (1.3-7.7); Neutrophils % (A) 88 %; RBC 3.06 m/uL (3.80-5.40); RDW 14.5 % (11.5-15.5); WBC 10.6 k/uL (3.8-10.6)
[2023-04-13 06:18] LABS: Platelet Count 86 k/uL (150-450)
[2023-04-13 06:29] LABS: ALT 39 U/L (4-34); African American GFR (CKD) 54 (>60 ml/min/1.73 sqM); Anion Gap 9 mmol/L; Blood Urea Nitrogen 40 mg/dL (7-17); Calcium 8.4 mg/dL (8.4-10.2); Carbon Dioxide 23 mmol/L (22-30); Chloride 103 mmol/L (98-107); Glucose 89 mg/dL (74-99); Non-African American GFR(CKD) 47 (>60 ml/min/1.73 sqM); Sodium 135 mmol/L (137-145); Total Bilirubin 3.6 mg/dL (0.2-1.3)
[2023-04-13 06:40] LABS: AST 102 U/L (14-36); Alkaline Phosphatase 184 U/L (38-126); Potassium 4.2 mmol/L (3.5-5.1); Total Protein 7.1 g/dL (6.3-8.2)
--- NOTE | 2023-04-13 07:13 | XR ---
EXAMINATION TYPE: XR chest 2V DATE OF EXAM: 04/13/2023 COMPARISON: 02/05/2023 HISTORY: Shortness of breath TECHNIQUE: Frontal and lateral views of the chest are obtained. FINDINGS: Scattered senescent parenchymal changes noted. Hyperinflation compatible with COPD. Continued pulmonary venous congestion with cardiomegaly and tiny effusions. Increased patchy density right suprahilar region may reflect developing infiltrate. Mediastinal structures are stable and grossly unremarkable. No evidence for hilar prominence. Degenerative changes dorsal spine. IMPRESSION: 1. Continued pulmonary venous congestion with cardiomegaly and tiny effusions. Increased patchy densi ty right suprahilar region may reflect developing infiltrate. Correlate with BNP for congestive heart failure.
[2023-04-13] MEDS ORDERED: AZITHROMYCIN 500 MG TAB PO STA (07:56)
[2023-04-13] MEDS ORDERED: PNEUMONIA PROTOCOL UTILIZED 1 EACH MISC PO PRN ×2 (07:57→09:52)
[2023-04-13] MEDS ORDERED: ALBUTEROL NEBULIZED 2.5 MG/3 ML INHALATION PRN (07:57)
--- NOTE | 2023-04-13 08:10 | ED ---
Fever HPI - General Chief Complaint: Fever Stated Complaint: Fever Time Seen by Provider: 04/13/23 04:53 Source: patient, EMS Mode of arrival: EMS Limitations: no limitations - History of Present Illness Initial Comments: patient is an 78-year-old woman presenting to have evaluation of fever, confusion, generalized weakness. Patient also is having a little bit of cough. Symptoms started little under 24 hours ago. Patient's states that she w as too weak to even sit up and she was very confused. he states that her mental status has improved now. Denies other symptoms of infection. MD Complaint: fever Onset/Timin -: hour(s) Temperature Source: subjective Associated Symptoms: cough, confusion, other (weakness) Treatments Prior to Arrival: none - Related Data Home Medications Medication Instructions Recorded Confirmed Cyanocobalamin (Vitamin B-12) 1,000 mcg PO DAILY 12/30/20 04/13/23 [Vitamin B-12] Ferrous Sulfate [Iron (65 MG 325 mg PO HS 12/30/20 04/13/23 Elemental)] Vit C/E/Zn/Coppr/Lutein/Zeaxan 1 cap PO BID 12/30/20 04/13/23 [Preservision Areds 2 Softgel] Cholecalciferol (Vitamin D3) 125 mcg PO DAILY 04/25/21 04/13/23 [Vitamin D3 (125 MCG = 5,000 IU)] Magnesium Oxide [Mag-Ox] 400 mg PO HS 02/04/23 04/13/23 Folic Acid 0.4 mg PO DAILY 04/13/23 04/13/23 Previous Rx's Medication Instructions Recorded Apixaban [Eliquis] 2.5 mg PO BID #60 tab 04/17/23 Bumetanide [Bumex] 1 mg PO DAILY #30 tablet 04/17/23 Famotidine [Pepcid] 20 mg PO DAILY #30 tab 04/17/23 Metoprolol Succinate (ER) [Toprol 25 mg PO HS #30 tab 04/17/23 XL] Metoprolol Succinate (ER) [Toprol 50 mg PO DAILY #30 tab 04/17/23 XL] cefUROXime axetiL [Ceftin] 500 mg PO BID 2 Days #4 tab 04/17/23 Allergies Allergy/AdvReac Type Severity Reaction Status Date / Time omeprazole [From Prilosec] Allergy Unknown Rash/Hives, Verified 04/13/23 10:55 TONGUE SWELLLING omeprazole magnesium Allergy Unknown Rash/Hives, Verified 04/13/23 10:55 [From [facility]] TONGUE SWELLLING Penicillins Allergy Unknown Rash/Hives/ Verified 04/13/23 10:55 Itching amlodipine Allergy fide pedal Verified 04/13/23 10:55 edema, loss voice carvedilol Allergy shortness Verified 04/13/23 10:55 of breath lisinopril Allergy Unknown Verified 04/13/23 10:55 Review of Systems ROS Statement: Those systems with pertinent positive or pertinent negative responses have been documented in the HPI. ROS Other: All systems not noted in ROS Statement are negative. Constitutional: Reports: fever, weakness ENT: Denies: throat pain Respiratory: Reports: cough, dyspnea. Denies: wheezes, hemoptysis Cardiovascular: Reports: edema (chronic). 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 History of Any Multi-Drug Resistant Organisms: None Reported Past Surgical History: Heart Catheterization Additional Past Surgical History / Comment(s): EYE SURGERY DUE TO INJURY, EGD, COLONOSCOPY, BONE MARROW BIOPSY, cataracts Past Anesthesia/Blood Transfusion Reactions: No Reported Reaction Past Psychological History: No Psychological Hx Reported Smoking Status: Never smoker Past Alcohol Use History: Occasional Past Drug Use History: None Reported - Past Family History Sister(s) Family Medical History: Cancer Additional Family Medical History / Comment(s): LEUKEMIA- at age 42 Brother(s) Family Medical History: Cancer Additional Family Medical History / Comment(s): with unknown type CA at age 60s General Exam Limitations: no limitations General appearance: alert, in no apparent distress Head exam: Present: atraumatic, normocephalic Eye exam: Present: normal appearance. Absent: scleral icterus, conjunctival injection ENT exam: Present: normal oropharynx Neck exam: Present: normal inspection, full ROM Respiratory exam: Present: rales. Absent: respiratory distress, wheezes, rhonchi, stridor Cardiovascular Exam: Present: regular rate, normal rhythm, normal heart sounds. Absent: systolic murmur, diastolic murmur, rubs, gallop GI/Abdominal exam: Present: soft. Absent: distended, tenderness, guarding, rebound, rigid, mass Extremities exam: Present: normal inspection, normal capillary refill. Absent: pedal edema, calf tenderness Back exam: Present: normal inspection. Absent: CVA tenderness (R), CVA tenderness (L) Neurological exam: Present: alert. Absent: motor sensory deficit Skin exam: Present: warm, dry, intact, normal color. Absent: rash Course Vital Signs 04/13/23 04/13/23 04/13/23 04:37 05:00 06:00 Temperature 101.1 F H Pulse Rate 86 91 Respiratory 18 20 Rate Blood Pressure 158/75 144/59 O2 Sat by Pulse 88 L 93 L 99 Oximetry 04/13/23 10:10 Temperature 98.8 F Pulse Rate 80 Respiratory 18 Rate Blood Pressure 108/52 O2 Sat by Pulse 99 Oximetry Procedures - Sepsis Sepsis Focused Exam #1 Sepsis Focused Exam Complete: Yes Vital Signs & RN Notes Reviewed: Yes Capillary Refill: < 2 Seconds: Fingers Peripheral Pulses: Normal: Radial (R) Skin Color: Normal for Patient Respiratory Exam: rales Cardiovascular Exam: regular rate, normal heart sounds Medical Decision Making - Medical Decision Making The patient had chest x-ray which I interpreted as showing degree of vascular congestion, possible CHF and also possibility of early right sided infiltrate. Was pt. sent in by a medical professional or institution (, PA, VIDEO P[employer]ER FLOORMAN, urgent care, hospital, or snf...) When possible be specific @ -[No] Did you speak to anyone other than the patient for history (EMS, parent, family, police, friend...)? What history was obtained from this source @ -[History from patient and from family Did you review nursing and triage notes (agree or disagree)? Why? @ -[I reviewed and agree with nursing and triage notes] Were old charts reviewed (outside hosp., previous admission, EMS record, old EKG, old radiological studies, urgent care reports/EKG's, snf records)? Report findings @ -[No old charts were reviewed] Differential Diagnosis (chest pain, altered mental status, abdominal pain women, abdominal pain men, vaginal bleeding, weakness, fever, dyspnea, syncope, headache, dizziness, GI bleed, back pain, seizure, CVA, palpatations, mental health, musculoskeletal)? @ -[Differential Fever: Pneumonia, viral URI, endocarditis, myocarditis, pericarditis, otitis, sinusitis, peritonsillar Abscess, retropharyngeal Abscess, epiglottitis, peritonitis, appendicitis, Lisandra cystitis, diverticulitis, hepatitis, colitis, UTI, PID, TOA, pyelonephritis, prostatitis, epididymitis, meningitis, en cephalitis, pulmonary embolism, CVA, thyroid storm, pancreatitis, adrenal crisis, cavernous sinus thrombosis, this is not meant to be an all-inclusive list. EKG interpreted by me (3pts min.). @ -[I interpreted as above X-rays interpreted by me (1pt min.). @ -[I interpreted as above CT interpreted by me (1pt min.). @ -[None done] U/S interpreted by me (1pt. min.). @ -[None done] What testing was considered but not performed or refused? (CT, X-rays, U/S, labs)? Why? @ -[None] What meds were considered but not given or refused? Why? @ -[None] Did you discuss the management of the patient with other professionals (professionals i.e. , PA, V[employer] FLOORMAN, lab, RT, psych nurse, director social service, director visual, teacher, safety patrol officer, home health care case manager)? Give summary @ -[Is discussed with admitting physician and treatment recommendations are incorporated Was smoking cessation discussed for >3mins.? @ -[No] Was critical care preformed (if so, how long)? @ -[No] Were there social determinants of health that impacted care today? How? (Rachel elessness, low income, unemployed, alcoholism, drug addiction, transportation, low edu. Level, literacy, decrease access to med. care, [facility], rehab)? @ -[No] Was there de-escalation of care discussed even if they declined (Discuss DNR or withdrawal of care, Hospice)? DNR status @ -[No] What co-morbidities impacted this encounter? (DM, HTN, Smoking, COPD, CAD, Cancer, CVA, ARF, Chemo, Hep., AIDS, mental health diagnosis, sleep apnea, morbid obesity)? @ -[Asthma, CHF, chronic kidney disease Was patient admitted / discharged? Hospital course, mention meds given and route, prescriptions, significant lab abnormalities, going to OR and other pertinent info. @ -[Patient is an 78-year-old woman here to have evaluation for altered mental status, fever. There was no element of cough. From the initial workup, suspect that there is developing right upper infiltrate and treated for pneumonia. The initial sepsis bolus is limited as patient may have degree of congestive heart failure, with elevated BNP and not wanting to exacerbate this. The patient will have additional consultants to help in management. Undiagnosed new problem with uncertain prognosis? @ -[No] Drug Therapy requiring intensive monitoring for toxicity (Heparin, Nitro, Insulin, Cardizem)? @ -[No] Were any procedures done? @ -[No] Diagnosis/symptom? @ -[Fever Suspect acute pneumonia Sepsis Elevated BNP, possible congestive heart failure exacerbation Mild lactic acidosis Acute, or Chronic, or Acute on Chronic? @ -[Acute Uncomplicated (without systemic symptoms) or Complicated (systemic symptoms)? @ -[Became with mental status changes Side effects of treatment? @ -[No] Exacerbation, Progression, or Severe Exacerbation? @ -[No] Poses a threat to life or bodily function? How? (Chest pain, USA, NC, pneumonia, PE, COPD, DKA, ARF, appy, cholecystitis, CVA, Diverticulitis, Homicidal, Suicidal, threat to staff... and all critical care pts) @ -[Yes, fever/pneumonia in patient with underlying conditions may progress to sepsis/ - Lab Data Result diagrams: 04/16/23 03:07 04/17/23 03:44 Lab Results 04/13/23 04/13/23 04/13/23 Range/Units 05:34 05:34 05:34 WBC 10.6 (3.8-10.6) k/uL RBC 3.06 L (3.80-5.40) m/uL Hgb 10.5 L (11.4-16.0) gm/dL Hct 32.3 L (34.0-46.0) % MCV 105.7 H (80.0-100.0) fL MCH 34.4 (25.0-35.0) pg MCHC 32.6 (31.0-37.0) g/dL RDW 14.5 (11.5-15.5) % Plt Count 86 L (150-450) k/uL MPV 9.4 Neutrophils % 88 % Lymphocytes % 6 % Monocytes % 5 % Eosinophils % 1 % Basophils % 0 % Neutrophils # 9.3 H (1.3-7.7) k/uL Lymphocytes # 0.6 L (1.0-4.8) k/uL Monocytes # 0.6 (0-1.0) k/uL Eosinophils # 0.1 (0-0.7) k/uL Basophils # 0.0 (0-0.2) k/uL Macrocytosis Moderate ESR (0-30) mm/Hr Sodium 135 L (137-145) mmol/L Potassium 4.2 (3.5-5.1) mmol/L Chloride 103 (98-107) mmol/L Carbon Dioxide 23 (22-30) mmol/L Anion Gap 9 mmol/L BUN 40 H (7-17) mg/dL Creatinine 1.12 H (0.52-1.04) mg/dL Est GFR (CKD-EPI)AfAm 54 (>60 ml/min/1.73 sqM) Est GFR (CKD-EPI)NonAf 47 (>60 ml/min/1.73 sqM) Glucose 89 (74-99) mg/dL Lactic Ac Sepsis Rflx Plasma Lactic Acid Shane 2.2 H* (0.7-2.0) mmol/L Calcium 8.4 (8.4-10.2) mg/dL Total Bilirubin 3.6 H (0.2-1.3) mg/dL AST 102 H (14-36) U/L ALT 39 H (4-34) U/L Alkaline Phosphatase 184 H (38-126) U/L C-Reactive Protein (<1.0) mg/dL Total Protein 7.1 (6.3-8.2) g/dL Albumin 3.0 L (3.5-5.0) g/dL Urine Color Urine Appearance (Clear) Urine pH (5.0-8.0) Ur Specific Halliday (1.001-1.035) Urine Protein (Negative) Urine Glucose (UA) (Negative) Urine Ketones (Negative) Urine Blood (Negative) Urine Nitrite (Negative) Urine Bilirubin (Negative) Urine Urobilinogen (<2.0) mg/dL Ur Leukocyte Esterase (Negative) Influenza Type A (PCR) (Not Detectd) Influenza Type B (PCR) (Not Detectd) Urine Legionella Ag (Negative) RSV (PCR) (Not Detectd) SARS-CoV-2 (PCR) (Not Detectd) 04/13/23 04/13/23 04/13/23 Range/Units 05:34 05:34 05:34 WBC (3.8-10.6) k/uL RBC (3.80-5.40) m/uL Hgb (11.4-16.0) gm/dL Hct (34.0-46.0) % MCV (80.0-100.0) fL MCH (25.0-35.0) pg MCHC (31.0-37.0) g/dL RDW (11.5-15.5) % Plt Count (150-450) k/uL MPV Neutrophils % % Lymphocytes % % Monocytes % % Eosinophils % % Basophils % % Neutrophils # (1.3-7.7) k/uL Lymphocytes # (1.0-4.8) k/uL Monocytes # (0-1.0) k/uL Eosinophils # (0-0.7) k/uL Basophils # (0-0.2) k/uL Macrocytosis ESR 65 H (0-30) mm/Hr Sodium (137-145) mmol/L Potassium (3.5-5.1) mmol/L Chloride (98-107) mmol/L Carbon Dioxide (22-30) mmol/L Anion Gap mmol/L BUN (7-17) mg/dL Creatinine (0.52-1.04) mg/dL Est GFR (CKD-EPI)AfAm (>60 ml/min/1.73 sqM) Est GFR (CKD-EPI)NonAf (>60 ml/min/1.73 sqM) Glucose (74-99) mg/dL Lactic Ac Sepsis Rflx Plasma Lactic Acid Shane (0.7-2.0) mmol/L Calcium (8.4-10.2) mg/dL Total Bilirubin (0.2-1.3) mg/dL AST (14-36) U/L ALT (4-34) U/L Alkaline Phosphatase (38-126) U/L C-Reactive Protein 2.7 H (<1.0) mg/dL Total Protein (6.3-8.2) g/dL Albumin (3.5-5.0) g/dL Urine Color Urine Appearance (Clear) Urine pH (5.0-8.0) Ur Specific Halliday (1.001-1.035) Urine Protein (Negative) Urine Glucose (UA) (Negative) Urine Ketones (Negative) Urine Blood (Negative) Urine Nitrite (Negative) Urine Bilirubin (Negative) Urine Urobilinogen (<2.0) mg/dL Ur Leukocyte Esterase (Negative) Influenza Type A (PCR) Not Detected (Not Detectd) Influenza Type B (PCR) Not Detected (Not Detectd) Urine Legionella Ag (Negative) RSV (PCR) Not Detected (Not Detectd) SARS-CoV-2 (PCR) Not Detected (Not Detectd) 04/13/23 04/13/23 04/13/23 Range/Units 05:45 05:45 06:48 WBC (3.8-10.6) k/uL RBC (3.80-5.40) m/uL Hgb (11.4-16.0) gm/dL Hct (34.0-46.0) % MCV (80.0-100.0) fL MCH (25.0-35.0) pg MCHC (31.0-37.0) g/dL RDW (11.5-15.5) % Plt Count (150-450) k/uL MPV Neutrophils % % Lymphocytes % % Monocytes % % Eosinophils % % Basophils % % Neutrophils # (1.3-7.7) k/uL Lymphocytes # (1.0-4.8) k/uL Monocytes # (0-1.0) k/uL Eosinophils # (0-0.7) k/uL Basophils # (0-0.2) k/uL Macrocytosis ESR (0-30) mm/Hr Sodium (137-145) mmol/L Potassium (3.5-5.1) mmol/L Chloride (98-107) mmol/L Carbon Dioxide (22-30) mmol/L Anion Gap mmol/L BUN (7-17) mg/dL Creatinine (0.52-1.04) mg/dL Est GFR (CKD-EPI)AfAm (>60 ml/min/1.73 sqM) Est GFR (CKD-EPI)NonAf (>60 ml/min/1.73 sqM) Glucose (74-99) mg/dL Lactic Ac Sepsis Rflx Y Plasma Lactic Acid Shane (0.7-2.0) mmol/L Calcium (8.4-10.2) mg/dL Total Bilirubin (0.2-1.3) mg/dL AST (14-36) U/L ALT (4-34) U/L Alkaline Phosphatase (38-126) U/L C-Reactive Protein (<1.0) mg/dL Total Protein (6.3-8.2) g/dL Albumin (3.5-5.0) g/dL Urine Color Yellow Urine Appearance Clear (Clear) Urine pH 6.5 (5.0-8.0) Ur Specific Halliday 1.014 (1.001-1.035) Urine Protein Trace H (Negative) Urine Glucose (UA) Negative (Negative) Urine Ketones Negative (Negative) Urine Blood Negative (Negative) Urine Nitrite Negative (Negative) Urine Bilirubin Negative (Negative) Urine Urobilinogen <2.0 (<2.0) mg/dL Ur Leukocyte Esterase Negative (Negative) Influenza Type A (PCR) (Not Detectd) Influenza Type B (PCR) (Not Detectd) Urine Legionella Ag Negative (Negative) RSV (PCR) (Not Detectd) SARS-CoV-2 (PCR) (Not Detectd) Critical Care Time Critical Care Time: Yes (30 minutes) Disposition Clinical Impression: Fever, Pneumonia, Acute delirium Disposition: ADMITTED IP TO THIS HOSP Condition: Fair Is patient prescribed a controlled substance at d/c from ED?: No
[2023-04-13] MEDS ORDERED: FUROSEMIDE 10 MG/ML 2 ML VIAL IV SCH (09:45)
[2023-04-13] MEDS ORDERED: ACETAMINOPHEN TAB 325 MG TAB PO PRN (11:29)
[2023-04-13] MEDS: SODIUM CHLORIDE 0.9% 1,000 ML IV SCH (12:17)
--- NOTE | 2023-04-13 12:32 | US ---
EXAMINATION TYPE: US abdomen complete DATE OF EXAM: 04/13/2023 COMPARISON: NONE CLINICAL INDICATION: Female, 78 years old with history of Abdominal pain, elevated LFTs; fever, back pain TECHNIQUE: Multiple sonographic images of the abdomen are obtained. FINDINGS: EXAM MEASUREMENTS: Liver Length: 13.8 cm Gallbladder Wall: 0.2 cm CBD: 0.5 cm Spleen: 8.2 cm Right Kidney: 9.8 x 3.5 x 4.2 cm Left Kidney: 8.3 x 3.4 x 5.0 cm RECTIFICATION PRINTER NOTES: bowel gas limits views Pancreas: portions seen appears wnl Liver: wnl Gallbladder: tortuous GB with sand like stones seen within neck and fundus Evidence for sonographic Torres's sign: no CBD: wnl Spleen: wnl Right Kidney: wnl Left Kidney: smaller in size Upper IVC: wnl Abd Aorta: wnl The liver is homogenous. The intrahepatic portion of the IVC and proximal abdominal aorta are within normal limits. Common bile duct is unremarkable. The visualized portions of the pancreas are homog enous. The spleen is unremarkable. Kidneys are symmetric and free of hydronephrosis. No renal lesi ons are seen. IMPRESSION: 1. Cholelithiasis.
--- NOTE | 2023-04-13 13:22 | P.HPIM ---
History of Present Illness H&P Date: 04/13/23 History of present illness; Patient is a 78-year-old lady with past medical history significant for asthma, congestive heart failure, spinal stenosis, hypertension, hyperlipidemia, and chronic kidney disease who presented to the hospital for fever and confusion. Patient symptoms started 24 hours ago before that patient was perfectly normal, noticed that patient was getting more confused, was also having fevers at home. There was no complain of any chills. Patient was getting short of breath on exertion. Denies any chest pain. Patient was having productive cough. No complain of nausea, vomiting abdominal pain. No swelling of feet. Denied any palpitation. Patient was cleaning and generalized weakness. Because of the symptoms, patient was brought to the ER Initial lab work done in the ER showed WBC was 10.6, hemoglobin 10.5, platelet count 86, sodium 139 potassium 4.2 BUN 40, creatinine 1.12, lactate 2.2, bilirubin 3.6, AST 102, ALT 39 Chest x-ray done in the ER showed continued pulmonary venous congestion with cardiomegaly and tiny effusions, increased patchy density right suprahilar region may reflect clubbing infiltrate Patient admitted to medicine service REVIEW OF SYSTEMS: CONSTITUTIONAL: As mentioned above HEENT: No recent visual problems or hearing problems. Denied any sore throat. CARDIOVASCULAR: As mentioned above PULMONARY: As mentioned above GASTROINTESTINAL: No diarrhea, no nausea, no vomiting, no abdominal pain. NEUROLOGICAL: No headaches, no weakness, no numbness. HEMATOLOGICAL: Denies any bleeding or petechiae. GENITOURINARY: Denies any burning micturition, frequency, or urgency. MUSCULOSKELETAL/RHEUMATOLOGICAL: Denies any joint pain, swelling, or any muscle pain. ENDOCRINE: Denies any polyuria or polydipsia. The rest of the 14-point review of systems is negative. PHYSICAL EXAMINATION: GENERAL: The patient is alert and oriented x3, not in any acute distress. Well developed, well nourished. HEENT: Pupils are round and equally reacting to light. EOMI. No scleral icterus. No conjunctival pallor. Normocephalic, atraumatic. No pharyngeal erythema. No thyromegaly. CARDIOVASCULAR: S1 and S2 present. No murmurs, rubs, or gallops. PULMONARY: Coarse breath sounds bilaterally, no wheezing or crackles. ABDOMEN: Soft, nontender, nondistended, normoactive bowel sounds. No palpable organomegaly. MUSCULOSKELETAL: No joint swelling or deformity. EXTREMITIES: 2+ pitting edema lower extremities bilaterally NEUROLOGICAL: Gross neurological examination did not reveal any focal deficits. SKIN: No rashes. Assessment and plan Acute hypoxic respiratory failure Acute metabolic encephalopathy Bacterial pneumonia Acute on chronic CHF with reduced EF Lactic acidosis Elevated LFTs Nonischemic cardiomyopathy Hypertension Hyperlipidemia Valvular heart disease Monitor vital signs Monitor CBC Monitor CMP Continue telemetry monitoring Follow-up on blood cultures Follow-up on sputum cultures Check pro-Alvin Continue IV Rocephin and azithromycin Monitor LFT Ordered ultrasound of abdomen Consult pulmonology Consult cardiology Labs and medication were reviewed.. Continue same treatment. Continue with symptomatic treatment. Resume home medication. Monitor labs and vitals. DVT and GI prophylaxis. Further recommendations as per clinical course of the patient Dictation was produced using [employer] dictation software. please excuse any gramm atical, word or spelling errors. 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 History of Any Multi-Drug Resistant Organisms: None Reported Past Surgical History: Heart Catheterization Additional Past Surgical History / Comment(s): EYE SURGERY DUE TO INJURY, EGD, COLONOSCOPY, BONE MARROW BIOPSY, cataracts Past Anesthesia/Blood Transfusion Reactions: No Reported Reaction Past Psychological History: No Psychological Hx Reported Smoking Status: Never smoker Past Alcohol Use History: Occasional Past Drug Use History: None Reported - Past Family History Sister(s) Family Medical History: Cancer Additional Family Medical History / Comment(s): LEUKEMIA- at age 42 Brother(s) Family Medical History: Cancer Additional Family Medical History / Comment(s): with unknown type CA at age 60s Medications and Allergies Home Medications Medication Instructions Recorded Confirmed Type Cyanocobalamin (Vitamin B-12) 1,000 mcg PO DAILY 12/30/20 04/13/23 History [Vitamin B-12] Ferrous Sulfate [Iron (65 MG 325 mg PO HS 12/30/20 04/13/23 History Elemental)] Vit C/E/Zn/Coppr/Lutein/Zeaxan 1 cap PO BID 12/30/20 04/13/23 History [Preservision Areds 2 Softgel] Cholecalciferol (Vitamin D3) 125 mcg PO DAILY 04/25/21 04/13/23 History [Vitamin D3 (125 MCG = 5,000 IU)] Metoprolol Succinate (ER) [Toprol 50 mg PO HS 04/25/21 04/13/23 History XL] Furosemide [Lasix] 40 mg PO DAILY 02/04/23 04/13/23 History Magnesium Oxide [Mag-Ox] 400 mg PO HS 02/04/23 04/13/23 History Folic Acid 0.4 mg PO DAILY 04/13/23 04/13/23 History Allergies Allergy/AdvReac Type Severity Reaction Status Date / Time omeprazole [From Prilosec] Allergy Unknown Rash/Hives, Verified 04/13/23 10:55 TONGUE SWELLLING omeprazole magnesium Allergy Unknown Rash/Hives, Verified 04/13/23 10:55 [From Prilosec] TONGUE SWELLLING Penicillins Allergy Unknown Rash/Hives/ Verified 04/13/23 10:55 Itching amlodipine Allergy fide pedal Verified 04/13/23 10:55 edema, loss voice carvedilol Allergy shortness Verified 04/13/23 10:55 of breath lisinopril Allergy Unknown Verified 04/13/23 10:55 Physical Exam Vitals: Vital Signs Temp Pulse Resp BP Pulse Ox 04/13/23 06:00 91 20 144/59 99 04/13/23 05:00 93 L 04/13/23 04:37 101.1 F H 86 18 158/75 88 L Intake and Output 04/12/23 04/13/23 04/13/23 22:59 06:59 14:59 Other: Weight 74.843 kg Results CBC & Chem 7: 04/13/23 05:34 04/13/23 05:34 Labs: Abnormal Lab Results - Last 24 Hours (Table) 04/13/23 04/13/23 04/13/23 Range/Units 05:34 05:34 05:34 RBC 3.06 L (3.80-5.40) m/uL Hgb 10.5 L (11.4-16.0) gm/dL Hct 32.3 L (34.0-46.0) % MCV 105.7 H (80.0-100.0) fL Plt Count 86 L (150-450) k/uL Neutrophils # 9.3 H (1.3-7.7) k/uL Lymphocytes # 0.6 L (1.0-4.8) k/uL Sodium 135 L (137-145) mmol/L BUN 40 H (7-17) mg/dL Creatinine 1.12 H (0.52-1.04) mg/dL Plasma Lactic Acid Shane 2.2 H* (0.7-2.0) mmol/L Total Bilirubin 3.6 H (0.2-1.3) mg/dL AST 102 H (14-36) U/L ALT 39 H (4-34) U/L Alkaline Phosphatase 184 H (38-126) U/L Albumin 3.0 L (3.5-5.0) g/dL Urine Protein (Negative) 04/13/23 Range/Units 05:45 RBC (3.80-5.40) m/uL Hgb (11.4-16.0) gm/dL Hct (34.0-46.0) % MCV (80.0-100.0) fL Plt Count (150-450) k/uL Neutrophils # (1.3-7.7) k/uL Lymphocytes # (1.0-4.8) k/uL Sodium (137-145) mmol/L BUN (7-17) mg/dL Creatinine (0.52-1.04) mg/dL Plasma Lactic Acid Shane (0.7-2.0) mmol/L Total Bilirubin (0.2-1.3) mg/dL AST (14-36) U/L ALT (4-34) U/L Alkaline Phosphatase (38-126) U/L Albumin (3.5-5.0) g/dL Urine Protein Trace H (Negative)
--- NOTE | 2023-04-13 13:53 | P.CNPUL ---
History of Present Illness Consult date: 04/13/23 Requesting physician: Mary Jo Alonso Reason for consult: abnormal CXR/CT Chief complaint: Febrile illness, weakness History of present illness: This is a pleasant 78-year-old female patient with a known history of mild intermittent chronic bronchial asthma, congestive heart failure, hypertension, inclusion body myositis site is, lifelong nonsmoker. She presented here to the emergency room early this morning with complaints of fever and generalized weakness. States her temperature was up to 105 at home. She had some shortness of breath and chills as well. Chest x-ray reveals cardiomegaly with pulmonary vascular congestion and tiny effusions. There is a patchy density in the right suprahilar region may reflect developing infiltrate. White count 10.6. Hemoglobin 10.5. Platelets 86,000. Sodium 135. Potassium 4.2. Bicarb 23. BUN 40. Creatinine 1.12. Lactic acid 2.2. AST 102. ALT 39. Alk phos 184. ProBNP 10,800. She is seen today in consultation in the emergency [facility]. She is currently sitting up on a stretcher. She is awake and alert in no acute distress. She is maintaining good O2 saturations in the high 90s on 2 L/m per nasal cannula. She has a T-max of 101.1. She was initiated on ceftriaxone and azithromycin. Normal saline at 20 ML's per hour. Was given Lasix 20 mg IVP 1. We did order a sed rate which is 65, C-reactive protein which is 2.7 and a calcitonin which is 6.06. Review of Systems REVIEW OF SYSTEMS: CONSTITUTIONAL: Positive for fever and generalized weakness. Denies any recent significant weight loss or weight gain. EYES: Denies change in vision. EARS, NOSE, MOUTH, THROAT: Denies headaches, denies sore throat. CARDIOVASCULAR: Denies chest pain, palpitations or syncopal episodes. RESPIRATORY: Denies shortness of breath, cough, congestion or hemoptysis. GASTROINTESTINAL: Denies change in appetite, denies abdominal pain GENITOURINARY: Denies hematuria, denies infections. MUSKULOSKELETAL: Positive for weakness. Denies pain, denies swelling. INTEGUMENTARY: Denies rash, denies eczema. NEUROLOGICAL: Denies recent memory loss, no recent seizure activity. PSYCHIATRIC: Denies anxiety, denies depression. HEMATOLOGIC/LYMPHATIC: Denies anemia, denies enlarged lymph nodes. 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 History of Any Multi-Drug Resistant Organisms: None Reported Past Surgical History: Heart Catheterization Additional Past Surgical History / Comment(s): EYE SURGERY DUE TO INJURY, EGD, COLONOSCOPY, BONE MARROW BIOPSY, cataracts Past Anesthesia/Blood Transfusion Reactions: No Reported Reaction Past Psychological History: No Psychological Hx Reported Smoking Status: Never smoker Past Alcohol Use History: Occasional Past Drug Use History: None Reported - Past Family History Sister(s) Family Medical History: Cancer Additional Family Medical History / Comment(s): LEUKEMIA- at age 42 Brother(s) Family Medical History: Cancer Additional Family Medical History / Comment(s): with unknown type CA at age 60s Medications and Allergies Home Medications Medication Instructions Recorded Confirmed Type Cyanocobalamin (Vitamin B-12) 1,000 mcg PO DAILY 12/30/20 04/13/23 History [Vitamin B-12] Ferrous Sulfate [Iron (65 MG 325 mg PO HS 12/30/20 04/13/23 History Elemental)] Vit C/E/Zn/Coppr/Lutein/Zeaxan 1 cap PO BID 12/30/20 04/13/23 History [Preservision Areds 2 Softgel] Cholecalciferol (Vitamin D3) 125 mcg PO DAILY 04/25/21 04/13/23 History [Vitamin D3 (125 MCG = 5,000 IU)] Metoprolol Succinate (ER) [Toprol 50 mg PO HS 04/25/21 04/13/23 History XL] Furosemide [Lasix] 40 mg PO DAILY 02/04/23 04/13/23 History Magnesium Oxide [Mag-Ox] 400 mg PO HS 02/04/23 04/13/23 History Folic Acid 0.4 mg PO DAILY 04/13/23 04/13/23 History Allergies Allergy/AdvReac Type Severity Reaction Status Date / Time omeprazole [From Prilosec] Allergy Unknown Rash/Hives, Verified 04/13/23 10:55 TONGUE SWELLLING omeprazole magnesium Allergy Unknown Rash/Hives, Verified 04/13/23 10:55 [From Prilosec] TONGUE SWELLLING Penicillins Allergy Unknown Rash/Hives/ Verified 04/13/23 10:55 Itching amlodipine Allergy fide pedal Verified 04/13/23 10:55 edema, loss voice carvedilol Allergy shortness Verified 04/13/23 10:55 of breath lisinopril Allergy Unknown Verified 04/13/23 10:55 Physical Exam Vitals: Vital Signs Temp Pulse Resp BP Pulse Ox 04/13/23 12:22 100.6 F H 04/13/23 10:10 98.8 F 80 18 108/52 99 04/13/23 06:00 91 20 144/59 99 04/13/23 05:00 93 L 04/13/23 04:37 101.1 F H 86 18 158/75 88 L Intake and Output 04/12/23 04/13/23 04/13/23 22:59 06:59 14:59 Other: Weight 74.843 kg 74.843 kg GENERAL EXAM: Alert, pleasant 78-year-old female, sitting up in a stretcher, on 2 L nasal cannula, fairly comfortable in no apparent distress. HEAD: Normocephalic. EYES: Normal reaction of pupils, equal size. NOSE: Clear with pink turbinates. THROAT: No erythema or exudates. NECK: No masses, no JVD. CHEST: No chest wall deformity. LUNGS: Equal air entry with faint crackles in the posterior bases. CVS: S1 and S2 normal with no audible murmur, regular rhythm. ABDOMEN: No hepatosplenomegaly, normal bowel sounds, no guarding or rigidity. SPINE: No scoliosis or deformity SKIN: No rashes CENTRAL NERVOUS SYSTEM: No focal deficits, tone is normal in all 4 extremities. EXTREMITIES: There is no peripheral edema. No clubbing, no cyanosis. Peripheral pulses are intact. Results - Laboratory Findings CBC and BMP: 04/13/23 05:34 04/13/23 05:34 Abnormal lab findings: Abnormal Labs 04/13/23 04/13/23 04/13/23 05:34 05:34 05:34 RBC 3.06 L Hgb 10.5 L Hct 32.3 L MCV 105.7 H Plt Count 86 L Neutrophils # 9.3 H Lymphocytes # 0.6 L ESR Sodium 135 L BUN 40 H Creatinine 1.12 H Plasma Lactic Acid Shane 2.2 H* Total Bilirubin 3.6 H AST 102 H ALT 39 H Alkaline Phosphatase 184 H C-Reactive Protein Albumin 3.0 L Procalcitonin Urine Protein 04/13/23 04/13/23 04/13/23 05:34 05:34 05:45 RBC Hgb Hct MCV Plt Count Neutrophils # Lymphocytes # ESR 65 H Sodium BUN Creatinine Plasma Lactic Acid Shane Total Bilirubin AST ALT Alkaline Phosphatase C-Reactive Protein 2.7 H Albumin Procalcitonin Urine Protein Trace H 04/13/23 04/13/23 08:30 10:22 RBC Hgb Hct MCV Plt Count Neutrophils # Lymphocytes # ESR Sodium BUN Creatinine Plasma Lactic Acid Shane 3.4 H* Total Bilirubin AST ALT Alkaline Phosphatase C-Reactive Protein Albumin Procalcitonin 6.06 H Urine Protein - Diagnostic Findings Chest x-ray: image reviewed Assessment and Plan Assessment: Febrile illness and generalized weakness of unclear etiology. May be early pneumonia. May be exacerbation of her inclusion body myositis. Sed rate 65, C-reactive protein 2.7, pro-calcitonin 6.06 Acute hypoxemic respiratory failure secondary to above History of mild intermittent chronic bronchial asthma History of inclusion body myositis History of congestive heart failure History of hypertension History of osteoarthritis Plan: The patient was seen and evaluated Chest x-ray, labs and medications reviewed Continue ceftriaxone and azithromycin Titrate the FiO2 as tolerated Blood cultures pending We will continue to follow and make further recommendations based on her clinical status I have personally seen and examined the patient, performed the documentation and the assessment and plan as written. Number of minutes spent on the visit: 20.
[2023-04-13] MEDS ORDERED: SODIUM CHLORIDE 0.9% 500 ML 500 ML IV ONE (13:55)
--- NOTE | 2023-04-13 14:41 | P.CRDCN ---
History of Present Illness Consult date: 04/13/23 Chief complaint: Shortness of breath History of present illness: The patient is a pleasant 78-year-old female patient who is known to our service from before with history of nonischemic cardiomyopathy and left bundle branch block as well as hypertension and dyslipidemia and heart failure. The patient presented to the hospital complaining of shortness of breath associated with fever and cough with no sputum production. No chest pain or chest discomfort. She developed mild bilateral lower extremity is edema. No dizziness or lightheadedness and no feeling of heart racing or fluttering and no presyncope or syncope and no chest pain or chest discomfort. Her temperature was elevated around 100.6. CBC and BNP came in to be unremarkable She underwent further workup including a chest x-ray and that showed pulmonary vascular congestion. Her NT proBNP came in to be elevated around 10,000. She was also slightly hypoxic when she presented to the emergency department appeared she is known to have asthma and has been under control according to her. She was started on antibiotic with ceftriaxone and azithromycin and we consulted to be see the patient for heart failure. When she was seen and evaluated she she doesn't seems to be in any overt congestive heart failure at this point. She underwent an echo earlier this year and that revealed preserved LV systolic function was mild to moderate valvular abnormalities. The physical examination is remarkable for regular rhythm with a systolic murmur at the right and left upper sternal border with diminished breathing sounds bilaterally and mild bilateral lower extremities edema. Assessment Acute hypoxic respiratory failure Febrile illness of unclear etiology at this point. Rule out pneumonia History of cardiomyopathy History of heart failure Left bundle-branch block Multiple comorbid conditions Plan Continue the antibiotic The patient doesn't seems in any overt congestive heart failure at this point Follow-up with the patient Past Medical History Past Medical History: Asthma, Heart Failure, Eye Disorder, Hypertension, Musculoskeletal Disorder, Osteoarthritis (OA) Additional Past Medical History / Comment(s): ENVIRONMENTAL ALLERGIES, BACK STENOSIS, 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 History of Any Multi-Drug Resistant Organisms: None Reported Past Surgical History: Heart Catheterization Additional Past Surgical History / Comment(s): EYE SURGERY DUE TO INJURY, EGD, COLONOSCOPY, BONE MARROW BIOPSY, cataracts Past Anesthesia/Blood Transfusion Reactions: No Reported Reaction Past Psychological History: No Psychological Hx Reported Smoking Status: Never smoker Past Alcohol Use History: Occasional Past Drug Use History: None Reported - Past Family History Sister(s) Family Medical History: Cancer Additional Family Medical History / Comment(s): LEUKEMIA- at age 42 Brother(s) Family Medical History: Cancer Additional Family Medical History / Comment(s): with unknown type CA at age 60s Medications and Allergies Home Medications Medication Instructions Recorded Confirmed Type Cyanocobalamin (Vitamin B-12) 1,000 mcg PO DAILY 12/30/20 04/13/23 History [Vitamin B-12] Ferrous Sulfate [Iron (65 MG 325 mg PO HS 12/30/20 04/13/23 History Elemental)] Vit C/E/Zn/Coppr/Lutein/Zeaxan 1 cap PO BID 12/30/20 04/13/23 History [Preservision Areds 2 Softgel] Cholecalciferol (Vitamin D3) 125 mcg PO DAILY 04/25/21 04/13/23 History [Vitamin D3 (125 MCG = 5,000 IU)] Metoprolol Succinate (ER) [Toprol 50 mg PO HS 04/25/21 04/13/23 History XL] Furosemide [Lasix] 40 mg PO DAILY 02/04/23 04/13/23 History Magnesium Oxide [Mag-Ox] 400 mg PO HS 02/04/23 04/13/23 History Folic Acid 0.4 mg PO DAILY 04/13/23 04/13/23 History Allergies Allergy/AdvReac Type Severity Reaction Status Date / Time omeprazole [From Prilosec] Allergy Unknown Rash/Hives, Verified 04/13/23 10:55 TONGUE SWELLLING omeprazole magnesium Allergy Unknown Rash/Hives, Verified 04/13/23 10:55 [From Prilosec] TONGUE SWELLLING Penicillins Allergy Unknown Rash/Hives/ Verified 04/13/23 10:55 Itching amlodipine Allergy fide pedal Verified 04/13/23 10:55 edema, loss voice carvedilol Allergy shortness Verified 04/13/23 10:55 of breath lisinopril Allergy Unknown Verified 04/13/23 10:55 Physical Exam Vitals: Vital Signs Temp Pulse Pulse Resp BP BP Pulse Ox 04/13/23 13:43 99.3 F 86 18 111/52 99 04/13/23 12:22 100.6 F H 04/13/23 10:10 98.8 F 80 18 108/52 99 04/13/23 06:00 91 20 144/59 99 04/13/23 05:00 93 L 04/13/23 04:37 101.1 F H 86 18 158/75 88 L Intake and Output 04/12/23 04/13/23 04/13/23 22:59 06:59 14:59 Other: Weight 74.843 kg 74.843 kg Results 04/13/23 05:34 04/13/23 05:34 Cardiac Enzymes 04/13/23 Range/Units 05:34 AST 102 H (14-36) U/L CBC 04/13/23 Range/Units 05:34 WBC 10.6 (3.8-10.6) k/uL RBC 3.06 L (3.80-5.40) m/uL Hgb 10.5 L (11.4-16.0) gm/dL Hct 32.3 L (34.0-46.0) % Plt Count 86 L (150-450) k/uL Comprehensive Metabolic Panel 04/13/23 Range/Units 05:34 Sodium 135 L (137-145) mmol/L Potassium 4.2 (3.5-5.1) mmol/L Chloride 103 (98-107) mmol/L Carbon Dioxide 23 (22-30) mmol/L BUN 40 H (7-17) mg/dL Creatinine 1.12 H (0.52-1.04) mg/dL Glucose 89 (74-99) mg/dL Calcium 8.4 (8.4-10.2) mg/dL AST 102 H (14-36) U/L ALT 39 H (4-34) U/L Alkaline Phosphatase 184 H (38-126) U/L Total Protein 7.1 (6.3-8.2) g/dL Albumin 3.0 L (3.5-5.0) g/dL Current Medications Generic Name Dose Route Start Last Admin Trade Name Freq PRN Reason Stop Dose Admin Acetaminophen 650 mg 04/13/23 11:29 04/13/23 11:37 Acetaminophen Tab 325 Mg Tab PO 650 mg Q6HR PRN Administration Fever and/ or Pain Albuterol Sulfate 2.5 mg 04/13/23 07:57 Albuterol Nebulized 2.5 Mg/3 Ml INHALATION RT-Q4H PRN Shortness Of Breath Or Wheezing Azithromycin 500 mg 04/14/23 09:00 Azithromycin 500 Mg Tab PO 04/15/23 09:01 DAILY [facility] Protocol Sodium Chloride 1,000 mls @ 20 mls/hr 04/13/23 08:00 04/13/23 12:17 Saline 0.9% IV 20 mls/hr .Q24H MEÑO Administration Ceftriaxone Sodium 2 gm/ 50 mls @ 100 mls/hr 04/14/23 09:00 Sodium Chloride IVPB 04/17/23 09:29 Q24HR [facility] Protocol Miscellaneous Information 1 each 04/13/23 07:57 Pneumonia Protocol Utilized 1 Each Misc PO ONCE PRN Per Protocol Miscellaneous Information 1 each 04/13/23 09:52 Pneumonia Protocol Utilized 1 Each Misc PO ONCE PRN Per Protocol Intake and Output 04/12/23 04/13/23 04/13/23 22:59 06:59 14:59 Other: Weight 74.843 kg 74.843 kg Patient Weight 04/14/23 06:59 Weight 74.843 kg 04/13/23 05:34 04/13/23 05:34
[2023-04-13] MEDS ORDERED: ALBUMIN HUMAN 5% 500 ML in EMPTY BAG 1 BAG IVPB STA (20:43)
[2023-04-13] MEDS: MIDODRINE 5 MG TAB PO SCH (21:35)
[2023-04-14] MEDS: MIDODRINE 5 MG TAB PO SCH ×4 (06:11→17:20)
[2023-04-14] MEDS ORDERED: MIDODRINE 5 MG TAB PO SCH (07:30)
[2023-04-14] MEDS ORDERED: METOPROLOL TARTRATE 5 MG/5 ML VIAL IVP ONE (07:34)
[2023-04-14] MEDS ORDERED: ADENOSINE 3 MG/ML 2 ML VIAL IVP ONE (07:34)
[2023-04-14] MEDS ORDERED: ADENOSINE 3 MG/ML 2 ML VIAL IVP STA (07:40)
[2023-04-14 08:14] LABS: Basophils % (A) 0 %; Eosinophils # (A) 0.5 k/uL (0-0.7); Eosinophils % (A) 4 %; HCT 33.9 % (34.0-46.0); HGB 11.3 gm/dL (11.4-16.0); Hypochromasia Slight; Lymphocytes # (A) 1.4 k/uL (1.0-4.8); Lymphocytes % (A) 11 %; MCH 35.6 pg (25.0-35.0); MCHC 33.3 g/dL (31.0-37.0); Macrocytosis Moderate; Mean Platelet Volume 8.9; Monocytes # (A) 0.5 k/uL (0-1.0); Monocytes % (A) 4 %; Neutrophils % (A) 79 %; Platelet Count 104 k/uL (150-450); RBC 3.17 m/uL (3.80-5.40); RDW 14.1 % (11.5-15.5); WBC 12.8 k/uL (3.8-10.6)
[2023-04-14 08:16] LABS: ABG Base Excess -3.1 mmol/L; ABG HCO3 22 mmol/L (21-25); ABG Oxygen Saturation 98.4 % (94-97); ABG PCO2 38 mmHg (35-45); ABG PH 7.37 (7.35-7.45); ABG PO2 109 mmHg (83-108); ABG TCO2 23 mmol/L (19-24); Allen Test Performed? Yes
[2023-04-14 08:22] LABS: African American GFR (CKD) 35 (>60 ml/min/1.73 sqM); Anion Gap 12 mmol/L; Blood Urea Nitrogen 55 mg/dL (7-17); Calcium 8.1 mg/dL (8.4-10.2); Carbon Dioxide 20 mmol/L (22-30); Chloride 100 mmol/L (98-107); Glucose 116 mg/dL (74-99); Magnesium 2.1 mg/dL (1.6-2.3); Non-African American GFR(CKD) 30 (>60 ml/min/1.73 sqM); Phosphorus 3.6 mg/dL (2.5-4.5); Potassium 3.8 mmol/L (3.5-5.1); Sodium 132 mmol/L (137-145)
[2023-04-14 08:31] LABS: Glucose,Whole Blood 119 mg/dL (70-110)
[2023-04-14] MEDS: SODIUM CHLORIDE 0.9% 1,000 ML IV SCH (08:39)
--- NOTE | 2023-04-14 09:02 | XR ---
EXAMINATION TYPE: XR chest 2V DATE OF EXAM: 04/14/2023 7:04 AM CLINICAL INDICATION:Female, 78 years old with history of pneumonia; [facility] COMPARISON: Chest radiograph one day prior. TECHNIQUE: XR chest 2V Frontal and lateral views of the chest. FINDINGS: Lungs/Pleura: There is persistent hazy airspace opacifications within the lung bases. Trace bilateral pleural effusions are again identified and stable. Pulmonary vascularity: Mild pulmonary vascular congestion. Heart/mediastinum: Cardiomediastinal silhouette is stable. Musculoskeletal: No acute osseous pathology. IMPRESSION: Overall stable exam demonstrating mild pulmonary vascular congestion and trace pleural effusions.
[2023-04-14] MEDS: METOPROLOL SUCCINATE (ER) 50 MG TAB.ER.24H PO SCH (09:07)
[2023-04-14] MEDS: DILTIAZEM 125 MG in SODIUM CHLORIDE 0.9% 100 ML IV SCH ×2 (09:07→20:28)
[2023-04-14] MEDS: AZITHROMYCIN 500 MG TAB PO SCH (09:07)
[2023-04-14] MEDS ORDERED: POTASSIUM CHLORIDE ER 20 MEQ TAB.ER PO STA (09:27)
[2023-04-14] MEDS ORDERED: FUROSEMIDE 40 MG TAB PO SCH (09:45)
[2023-04-14] MEDS: FOLIC ACID 1 MG TAB PO SCH (10:53)
[2023-04-14] MEDS ORDERED: HEPARIN SODIUM 1,000 UN/ML (10ML VL) IV PRN (12:27)
--- NOTE | 2023-04-14 12:29 | P.PN ---
Subjective Progress Note Date: 04/14/23 Patient is a 78-year-old lady with past medical history significant for asthma, congestive heart failure, spinal stenosis, hypertension, hyperlipidemia, and chronic kidney disease who presented to the hospital for fever and confusion. Patient symptoms started 24 hours ago before that patient was perfectly normal, noticed that patient was getting more confused, was also having fevers at home. There was no complain of any chills. Patient was getting short of breath on exertion. Denies any chest pain. Patient was having productive cough. No complain of nausea, vomiting abdominal pain. No swelling of feet. Denied any palpitation. Patient was cleaning and generalized weakness. Because of the symptoms, patient was brought to the ER Initial lab work done in the ER showed WBC was 10.6, hemoglobin 10.5, platelet count 86, sodium 139 potassium 4.2 BUN 40, creatinine 1.12, lactate 2.2, bilirubin 3.6, AST 102, ALT 39 Chest x-ray done in the ER showed continued pulmonary venous congestion with cardiomegaly and tiny effusions, increased patchy density right suprahilar region may reflect clubbing infiltrate Patient admitted to medicine service 04/14. Patient seen and examined. Patient had a rapid response overnight for tachycardia, was given IV edema seen in Lopressor, heart rate remained elevated, was started on Cardizem drip. Labs done this morning showed WBC 12.8, hemoglobin 11.3, platelet count 104, sodium 132, potassium 3.8 BUN 55, creatinine 1.59.. Currently on 2 L of oxygen. Complaining of shortness of breath. Patient will be moved to ICU REVIEW OF SYSTEMS: CONSTITUTIONAL: Had low-grade fever overnight CARDIOVASCULAR: , no palpitations, no syncope. PULMONARY: As mentioned above GASTROINTESTINAL: No diarrhea, no nausea, no vomiting, no abdominal pain. NEUROLOGICAL: No headaches, no weakness, PHYSICAL EXAMINATION: GENERAL: The patient is alert and oriented x3, not in any acute distress. Chronically ill-looking HEENT: Pupils are round and equally reacting to light. EOMI. No scleral icterus. No conjunctival pallor. Normocephalic, atraumatic. No pharyngeal erythema. No thyromegaly. CARDIOVASCULAR: S1 and S2 present. No murmurs, rubs, or gallops. Tachycardic PULMONARY: Chest is clear to auscultation, no wheezing or crackles. ABDOMEN: Soft, nontender, nondistended, normoactive bowel sounds. No palpable organomegaly. MUSCULOSKELETAL: No joint swelling or deformity. EXTREMITIES: 2+ pitting edema lower extremities bilaterally NEUROLOGICAL: Gross neurological examination did not reveal any focal deficits. SKIN: No rashes. Assessment and plan Acute hypoxic respiratory failure Acute metabolic encephalopathy Bacterial pneumonia Chronic bronchial asthma Wide complex tachycardia A. fib with RVR Acute on chronic CHF with reduced EF Lactic acidosis Elevated LFTs Nonischemic cardiomyopathy Hypertension Hyperlipidemia Valvular heart disease Monitor vital signs Monitor CBC Monitor CMP Continue telemetry monitoring Encourage use of incentive spirometer Follow-up on blood cultures Follow-up on sputum cultures Continue IV Rocephin and azithromycin Started on Cardizem drip Start heparin drip Monitor LFT Cardiology following Pulmonology following Patient will be transferred to ICU Labs and medication were reviewed.. Continue same treatment. Continue with symptomatic treatment. Resume home medication. Monitor labs and vitals. DVT and GI prophylaxis. Further recommendations as per clinical course of the patient Dictation was produced using [employer] dictation software. please excuse any grammatical, word or spelling errors. Objective - Vital Signs Vital signs: Vital Signs Temp 99.8 F H 04/14/23 08:30 Pulse 165 H 04/14/23 09:10 Resp 14 04/14/23 09:10 BP 120/73 04/14/23 09:10 Pulse Ox 95 04/14/23 09:10 FiO2 Intake & Output 04/13/23 04/14/23 04/14/23 18:59 06:59 18:59 Weight 74.843 kg Other: # Voids 1 1 - Labs CBC & Chem 7: 04/14/23 07:52 04/14/23 07:52 Labs: Abnormal Lab Results - Last 24 Hours (Table) 04/13/23 04/13/23 04/13/23 Range/Units 05:34 05:34 08:30 WBC (3.8-10.6) k/uL RBC (3.80-5.40) m/uL Hgb (11.4-16.0) gm/dL Hct (34.0-46.0) % MCV (80.0-100.0) fL MCH (25.0-35.0) pg Plt Count (150-450) k/uL Neutrophils # (1.3-7.7) k/uL ESR 65 H (0-30) mm/Hr ABG pO2 (83-108) mmHg ABG O2 Saturation (94-97) % Sodium (137-145) mmol/L Carbon Dioxide (22-30) mmol/L BUN (7-17) mg/dL Creatinine (0.52-1.04) mg/dL Glucose (74-99) mg/dL POC Glucose (mg/dL) (70-110) mg/dL Plasma Lactic Acid Shane (0.7-2.0) mmol/L Calcium (8.4-10.2) mg/dL C-Reactive Protein 2.7 H (<1.0) mg/dL Procalcitonin 6.06 H (0.02-0.09) ng/mL 04/13/23 04/13/23 04/14/23 Range/Units 10:22 20:25 07:52 WBC 12.8 H (3.8-10.6) k/uL RBC 3.17 L (3.80-5.40) m/uL Hgb 11.3 L (11.4-16.0) gm/dL Hct 33.9 L (34.0-46.0) % MCV 107.0 H (80.0-100.0) fL MCH 35.6 H (25.0-35.0) pg Plt Count 104 L (150-450) k/uL Neutrophils # 10.0 H (1.3-7.7) k/uL ESR (0-30) mm/Hr ABG pO2 (83-108) mmHg ABG O2 Saturation (94-97) % Sodium (137-145) mmol/L Carbon Dioxide (22-30) mmol/L BUN (7-17) mg/dL Creatinine (0.52-1.04) mg/dL Glucose (74-99) mg/dL POC Glucose (mg/dL) (70-110) mg/dL Plasma Lactic Acid Shane 3.4 H* 2.3 H* (0.7-2.0) mmol/L Calcium (8.4-10.2) mg/dL C-Reactive Protein (<1.0) mg/dL Procalcitonin (0.02-0.09) ng/mL 04/14/23 04/14/23 04/14/23 Range/Units 07:52 08:10 08:30 WBC (3.8-10.6) k/uL RBC (3.80-5.40) m/uL Hgb (11.4-16.0) gm/dL Hct (34.0-46.0) % MCV (80.0-100.0) fL MCH (25.0-35.0) pg Plt Count (150-450) k/uL Neutrophils # (1.3-7.7) k/uL ESR (0-30) mm/Hr ABG pO2 109 H (83-108) mmHg ABG O2 Saturation 98.4 H (94-97) % Sodium 132 L (137-145) mmol/L Carbon Dioxide 20 L (22-30) mmol/L BUN 55 H (7-17) mg/dL Creatinine 1.59 H (0.52-1.04) mg/dL Glucose 116 H (74-99) mg/dL POC Glucose (mg/dL) 119 H (70-110) mg/dL Plasma Lactic Acid Shane (0.7-2.0) mmol/L Calcium 8.1 L (8.4-10.2) mg/dL C-Reactive Protein (<1.0) mg/dL Procalcitonin (0.02-0.09) ng/mL Microbiology - Last 24 Hours (Table) 04/13/23 08:30 Blood Culture Gram Stain - Preliminary Blood
[2023-04-14 13:04] LABS: INR 1.5 (<1.2); Partial Thromboplastin Time 31.4 sec (22.0-30.0)
--- NOTE | 2023-04-14 13:20 | P.PN ---
Subjective Progress Note Date: 04/14/23 Principal diagnosis: Acute febrile illness, possible pneumonia This is a pleasant 78-year-old female patient with a known history of mild intermittent chronic bronchial asthma, congestive heart failure, hypertension, inclusion body myositis site is, lifelong nonsmoker. She presented here to the emergency room early this morning with complaints of fever and generalized weakness. States her temperature was up to 105 at home. She had some shortness of breath and chills as well. Chest x-ray reveals cardiomegaly with pulmonary vascular congestion and tiny effusions. There is a patchy density in the right suprahilar region may reflect developing infiltrate. White count 1 0.6. Hemoglobin 10.5. Platelets 86,000. Sodium 135. Potassium 4.2. Bicarb 23. BUN 40. Creatinine 1.12. Lactic acid 2.2. AST 102. ALT 39. Alk phos 184. ProBNP 10,800. She is seen today in consultation in the emergency department. She is currently sitting up on a stretcher. She is awake and alert in no acute distress. She is maintaining good O2 saturations in the high 90s on 2 L/m per nasal cannula. She has a T-max of 101.1. She was initiated on ceftriaxone and azithromycin. Normal saline at 20 ML's per hour. Was given Lasix 20 mg IVP 1. We did order a sed rate which is 65, C-reactive protein which is 2.7 and a calcitonin which is 6.06. Patient was very on 04/14/2023, patient is in the ICU but she is actually a 3 S. overflow. I saw this patient yesterday in the ER, and she was admitted with acute febrile illness, elevated pro calcitonin level, however she had no sym ptoms clinically to suggest pneumonia chest x-ray showed vague left lower lobe atelectasis and right perihilar atelectasis, patient had no cough, no shortness of breath, no chest pain, but she did have a fever. Patient was admitted placed on antibiotics empirically, BNP level was elevated at 10,000, and the patient is empirically on Rocephin and Zithromax. Chest x-ray itself did not point to con gestive heart failure, overnight the patient developed SVT, she required Lopressor IV push, and she was placed on Cardizem at 10 mg per hour. Patient is doing much per her today, heart rate is down to 96, and she is to be seen by cardiology regarding her SVT. This is a relatively new onset. Patient also had a T-max of 99.8 last night. Presently afebrile. Blood pressure is 120/73. Mean arterial pressure 87. When the patient had SVT left, she did receive adenosine 2. He also received Lopressor, and now she is on Cardizem drip. Blood cultures are showing gram-positive bacilli which is clearly a skin contaminant. More blood cultures are pending. WBC count today is 12.8 hemoglobin 11.3. ABG this morning on 35% showed a pO2 of 109 pCO2 38 pH of 7.37. Basic metabolic profile is relatively unremarkable except for creatinine jumping up to 1.59 from 1.1 to yesterday lactic acid this morning is 2.0. Objective - Vital Signs Vital signs: Vital Signs Temp 99.8 F H 04/14/23 08:30 Pulse 165 H 04/14/23 09:10 Resp 14 04/14/23 09:10 BP 120/73 04/14/23 09:10 Pulse Ox 95 04/14/23 09:10 FiO2 Intake & Output 04/13/23 04/14/23 04/14/23 18:59 06:59 18:59 Weight 74.843 kg Other: # Voids 1 1 - Exam Physical Exam revealed 78-year-old female pleasant in no distress on 2 L nasal cannula Head: Atraumatic, normocephalic. HEENT:[Neck is supple.] [No neck masses.] [No thyromegaly.] [No JVD.] Chest: [Diminished breath sounds at the bases no crackles or rhonchi or wheezes Cardiac Exam: [Normal S1 and S2, no S3 gallop, 2/6 systolic murmur at the left lower sternal border Abdomen: [Soft, nontender, no megaly, no rebound, no guarding, normal bowel sounds.] Extremities: [No clubbing, 1+ bipedal edema, no cyanosis.] Neurological Exam: [No focal neurologic deficit.] Alert and oriented 3 Psychiatric: Normal mood, affect and normal status examination. Skin: No rashes. - Labs CBC & Chem 7: 04/14/23 07:52 04/14/23 07:52 Labs: Abnormal Lab Results - Last 24 Hours (Table) 04/13/23 04/13/23 04/14/23 Range/Units 08:30 20:25 07:52 WBC 12.8 H (3.8-10.6) k/uL RBC 3.17 L (3.80-5.40) m/uL Hgb 11.3 L (11.4-16.0) gm/dL Hct 33.9 L (34.0-46.0) % MCV 107.0 H (80.0-100.0) fL MCH 35.6 H (25.0-35.0) pg Plt Count 104 L (150-450) k/uL Neutrophils # 10.0 H (1.3-7.7) k/uL ABG pO2 (83-108) mmHg ABG O2 Saturation (94-97) % Sodium (137-145) mmol/L Carbon Dioxide (22-30) mmol/L BUN (7-17) mg/dL Creatinine (0.52-1.04) mg/dL Glucose (74-99) mg/dL POC Glucose (mg/dL) (70-110) mg/dL Plasma Lactic Acid Shane 2.3 H* (0.7-2.0) mmol/L Calcium (8.4-10.2) mg/dL Procalcitonin 6.06 H (0.02-0.09) ng/mL 04/14/23 04/14/23 04/14/23 Range/Units 07:52 08:10 08:30 WBC (3.8-10.6) k/uL RBC (3.80-5.40) m/uL Hgb (11.4-16.0) gm/dL Hct (34.0-46.0) % MCV (80.0-100.0) fL MCH (25.0-35.0) pg Plt Count (150-450) k/uL Neutrophils # (1.3-7.7) k/uL ABG pO2 109 H (83-108) mmHg ABG O2 Saturation 98.4 H (94-97) % Sodium 132 L (137-145) mmol/L Carbon Dioxide 20 L (22-30) mmol/L BUN 55 H (7-17) mg/dL Creatinine 1.59 H (0.52-1.04) mg/dL Glucose 116 H (74-99) mg/dL POC Glucose (mg/dL) 119 H (70-110) mg/dL Plasma Lactic Acid Shane (0.7-2.0) mmol/L Calcium 8.1 L (8.4-10.2) mg/dL Procalcitonin (0.02-0.09) ng/mL Microbiology - Last 24 Hours (Table) 04/13/23 08:30 Blood Culture Gram Stain - Preliminary Blood Assessment and Plan Assessment: Impression: Acute febrile illness, possible pneumonia however the patient does not have the typical clinical presentation of pneumonia. Nonetheless she is on Rocephin and Zithromax empirically especially with elevated pro calcitonin level of 6.06 Acute hypoxic respiratory failure, suspect some component of mild, suspect mild interstitial edema noted on the chest x-ray/congestive heart failure and left lower lobe atelectasis, possible pneumonia. This would be community-acquired if her pneumonia is present Atrial fibrillation with RVR Wide-complex tachycardia patient does have history of bundle branch block Acute on chronic systolic congestive heart failure, patient is known to have history of reduced ejection fraction Elevated liver enzymes could be related to her nonischemic cardiomyopathy and congestive heart failure this needs to be closely monitored valvular heart disease Benign essential hypertension Acute kidney injury, possible ATN Recommendation: Continue antibiotics empirically Continue to monitor labs, including CBC and basic metabolic profile as well as liver profile Check blood cultures and sputum cultures Control atrial fibrillation with RVR, presently on Cardizem drip Intermittent diuresis/gentle diuresis specially with her renal functioning seems to be getting a bit worse. Continue heparin drip Continue to monitor liver enzymes Continue GI prophylaxis Cardiology to assess again regarding her A. fib/RVR Continue Lasix 40 mg by mouth daily Continue metoprolol 50 mg by mouth daily We'll continue to follow Time with Patient: Less than 30
--- NOTE | 2023-04-14 14:36 | P.PN ---
Subjective Progress Note Date: 04/14/23 Principal diagnosis: CHF The patient is a pleasant 78-year-old female patient who is known to our service from before with history of nonischemic cardiomyopathy and left bundle branch block as well as hypertension and dyslipidemia and heart failure. The patient presented to the hospital complaining of shortness of breath associated with fever and cough with no sputum production. No chest pain or chest discomfort. She developed mild bilateral lower extremity is edema. No dizziness or lightheadedness and no feeling of heart racing or fluttering and no presyncope or syncope and no chest pain or chest discomfort. Her temperature was elevated around 100.6. CBC and BNP came in to be unremarkable She underwent further workup including a chest x-ray and that showed pulmonary vascular congestion. Her NT proBNP came in to be elevated around 10,000. She was also slightly hypoxic when she presented to the emergency department appeared she is known to have asthma and has been under control according to her. She was started on antibiotic with ceftriaxone and azithromycin and we consulted to be see the patient for heart failure. When she was seen and evaluated she she doesn't seems to be in any overt congestive heart failure at this point. She underwent an echo earlier this year and that revealed preserved LV systolic function was mild to moderate valvular abnormalities. The physical examination is remarkable for regular rhythm with a systolic murmur at the right and left upper sternal border with diminished breathing sounds bilaterally and mild bilateral lower extremities edema. 04/14/2023 The patient was seen and evaluated this morning. She was transferred to the intensive care and yesterday after she developed an episode of tachycardia to me seems to be in atrial fibrillation versus atrial flutter with RVR and she was converted on Cardizem IV. Currently she is in sinus mechanism with LBBB. She is in mild failure. She is experiencing shortness of breath and she is hypoxic and also she does have bilateral lower extremity is edema. Currently she is on Lasix orally which I'm going to stop and start patient on Lasix IV with continued monitoring the kidney function and electrolytes. Meanwhile she was started on heparin IV by the internal medicine team. I am going also to obtain serial cardiac enzymes because she has been experiencing chest discomfort. Even though she underwent a heart catheterization in 2020 and that showed normal c oronaries. The examination is remarkable for bilateral lower extremity edema and diminished breathing sounds bilaterally and irregular rhythm with a systolic murmur at the left and right upper sternal border Assessment Acute hypoxic respiratory failure Febrile illness of unclear etiology at this point. Rule out pneumonia History of cardiomyopathy History of heart failure Left bundle-branch block Paroxysmal atrial fibrillation Plan DC Cardizem IV and increase the dose of beta breanne Continue heparin IV and consider switching the patient to oral anticoagulation DC the Lasix orally and start the patient on Lasix IV Monitor the kidney function and electrolytes Follow-up with the patient Objective - Vital Signs Vital signs: Vital Signs Temp 99.9 F H 04/14/23 12:00 Pulse 75 04/14/23 14:00 Resp 17 04/14/23 14:00 BP 100/48 04/14/23 14:00 Pulse Ox 96 04/14/23 14:00 FiO2 Intake & Output 04/13/23 04/14/23 04/14/23 18:59 06:59 18:59 Intake Total 150 Balance 150 Weight 74.843 kg Intake: IV 150 Sodium Chloride 0.9% 1, 100 000 ml @ 20 mls/hr IV . Q24H MEÑO Rx#:[id number] cefTRIAXone 2 gm In 50 Sodium Chloride 0.9% 50 ml @ 100 mls/hr IVPB Q24HR [facility] Rx#:[id number] Other: Voiding Method External Catheter # Voids 1 1 - Labs CBC & Chem 7: 04/14/23 07:52 04/14/23 07:52 Labs: Abnormal Lab Results - Last 24 Hours (Table) 04/13/23 04/14/23 04/14/23 Range/Units 20:25 07:52 07:52 WBC 12.8 H (3.8-10.6) k/uL RBC 3.17 L (3.80-5.40) m/uL Hgb 11.3 L (11.4-16.0) gm/dL Hct 33.9 L (34.0-46.0) % MCV 107.0 H (80.0-100.0) fL MCH 35.6 H (25.0-35.0) pg Plt Count 104 L (150-450) k/uL Neutrophils # 10.0 H (1.3-7.7) k/uL PT (10.0-12.5) sec INR (<1.2) APTT (22.0-30.0) sec ABG pO2 (83-108) mmHg ABG O2 Saturation (94-97) % Sodium 132 L (137-145) mmol/L Carbon Dioxide 20 L (22-30) mmol/L BUN 55 H (7-17) mg/dL Creatinine 1.59 H (0.52-1.04) mg/dL Glucose 116 H (74-99) mg/dL POC Glucose (mg/dL) (70-110) mg/dL Plasma Lactic Acid Shane 2.3 H* (0.7-2.0) mmol/L Calcium 8.1 L (8.4-10.2) mg/dL 04/14/23 04/14/23 04/14/23 Range/Units 08:10 08:30 12:42 WBC (3.8-10.6) k/uL RBC (3.80-5.40) m/uL Hgb (11.4-16.0) gm/dL Hct (34.0-46.0) % MCV (80.0-100.0) fL MCH (25.0-35.0) pg Plt Count (150-450) k/uL Neutrophils # (1.3-7.7) k/uL PT 15.0 H (10.0-12.5) sec INR 1.5 H (<1.2) APTT 31.4 H (22.0-30.0) sec ABG pO2 109 H (83-108) mmHg ABG O2 Saturation 98.4 H (94-97) % Sodium (137-145) mmol/L Carbon Dioxide (22-30) mmol/L BUN (7-17) mg/dL Creatinine (0.52-1.04) mg/dL Glucose (74-99) mg/dL POC Glucose (mg/dL) 119 H (70-110) mg/dL Plasma Lactic Acid Shane (0.7-2.0) mmol/L Calcium (8.4-10.2) mg/dL Microbiology - Last 24 Hours (Table) 04/13/23 08:30 Blood Culture Gram Stain - Preliminary Blood
--- NOTE | 2023-04-14 14:41 | P.EN ---
A team called early in the morning on 04/14 for symptomatic tachycardia. Sound physicians called at the bedside. Initial concern for wide-complex tachycardia with rates into the 200s. However blood pressure was stable, patient saturating well on 4 L. She was complaining of chest heaviness and difficulty breathing. Chart review showed prior EKGs with left bundle branch block. Less likely to be in SVT. Patient was given adenosine 6 mg 2 which slowed her heart rate down to 100s with some symptomatic relief. However, she quickly became tachycardic again. Possibly underlying atrial flutter/fibrillation. She was given another IV push of metoprolol 5 mg which kept her heart rates in the low 100s. Blood pressure stable throughout. Labs were drawn. Instructions given to nursing to start on Cardizem drip and move patient to stepdown unit. Nursing to also contact primary team and cardiology. Total time spent at bedside greater than 30 minutes.
[2023-04-14] MEDS: HEPARIN SOD,PORK IN 0.45% NACL 25,000 UNIT in 0.45% NACL 1 250ML.BAG IV SCH (15:16)
[2023-04-14] MEDS: MAGNESIUM OXIDE 400 MG TAB PO SCH (20:28)
[2023-04-14] MEDS: FERROUS SULFATE 325 MG TAB PO SCH (20:28)
[2023-04-14] MEDS: VIT A,C & E-LUTEIN-MINERALS 1 EACH TAB PO SCH (20:28)
[2023-04-14] MEDS: FUROSEMIDE 10 MG/ML 2 ML VIAL IV SCH (20:28)
[2023-04-14] MEDS: METOPROLOL SUCCINATE (ER) 25 MG TAB.ER.24H PO SCH (22:57)
[2023-04-15 05:20] LABS: HCT 28.2 % (34.0-46.0); MCH 34.6 pg (25.0-35.0); MCHC 33.1 g/dL (31.0-37.0); MCV 104.7 fL (80.0-100.0); Macrocytosis Moderate; RBC 2.69 m/uL (3.80-5.40); RDW 14.6 % (11.5-15.5); WBC 13.1 k/uL (3.8-10.6)
[2023-04-15 05:21] LABS: HGB 9.3 gm/dL (11.4-16.0)
[2023-04-15 05:31] LABS: INR 1.4 (<1.2); Prothrombin Time 14.7 sec (10.0-12.5)
[2023-04-15 05:36] LABS: Band Neutrophils % 15 %; Eosinophils # (M) 0.66 k/uL (0-0.7); Lymphocytes # (M) 1.83 k/uL (1.0-4.8); Monocytes # (M) 1.05 k/uL (0-1.0); Neutrophils % (M) 58 %; Nucleated Red Blood Cells 0 /100 WBC (0-0)
[2023-04-15 05:37] LABS: Total Cells Counted 200; Toxic Granulation Present
[2023-04-15 05:38] LABS: Platelet Count 87 k/uL (150-450)
[2023-04-15 06:34] LABS: African American GFR (CKD) 35 (>60 ml/min/1.73 sqM); Anion Gap 7 mmol/L; Blood Urea Nitrogen 57 mg/dL (7-17); Calcium 7.7 mg/dL (8.4-10.2); Carbon Dioxide 22 mmol/L (22-30); Chloride 101 mmol/L (98-107); Glucose 90 mg/dL (74-99); Non-African American GFR(CKD) 30 (>60 ml/min/1.73 sqM); Potassium 3.8 mmol/L (3.5-5.1); Sodium 130 mmol/L (137-145)
[2023-04-15] MEDS: MIDODRINE 5 MG TAB PO SCH ×3 (06:39→17:50)
[2023-04-15] MEDS: SODIUM CHLORIDE 0.9% 1,000 ML IV SCH (06:41)
--- NOTE | 2023-04-15 07:11 | P.CONS ---
History of Present Illness - Reason for Consult Consult date: 04/14/23 - History of Present Illness Patient is a 78-year-old female with a past medical history significant for hypertension osteoarthritis heart failure and asthma patient presenting to the hospital yesterday morning for evaluation of fever confusion and generalized weakness patient symptom has been going on for about a day before presentation to the hospital the patient also have a cough which is mild to moderate intensity however not bring up any sputum denies any nausea vomiting no choking on the food no abdominal pain or any diarrhea according to the the patient was weak and little bit confused with the center the patient was evaluated on presentation to the hospital patient did have a fever of 101.1 F and a fever of 99.8 F this morning, patient was tachycardic on presentation to the hospital and did have a white count of 12.8 with a left shift BUN and creatinine mildly elevated urine has been negative influenza RSV and COVID testing was negative patient did have a chest x-ray pulmonary vascular congestion cardiomegaly with an effusion increased patchy density right suprahilar region admitted for developing infiltrate patient has been diagnosed with pneumonia and being treated with ceftriaxone and Zithromax this morning the patient did went into SVT with a heart rate in 200s started on Cardizem drip and the patient be transferred to the ICU Past Medical History Past Medical History: Asthma, Heart Failure, Eye Disorder, Hypertension, Musculoskeletal Disorder, Osteoarthritis (OA) Additional Past Medical History / Comment(s): ENVIRONMENTAL ALLERGIES, BACK STENOSIS, 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 History of Any Multi-Drug Resistant Organisms: None Reported Past Surgical History: Heart Catheterization Additional Past Surgical History / Comment(s): EYE SURGERY DUE TO INJURY, EGD, COLONOSCOPY, BONE MARROW BIOPSY, cataracts Past Anesthesia/Blood Transfusion Reactions: No Reported Reaction Past Psychological History: No Psychological Hx Reported Smoking Status: Never smoker Past Alcohol Use History: Occasional Past Drug Use History: None Reported - Past Family History Sister(s) Family Medical History: Cancer Additional Family Medical History / Comment(s): LEUKEMIA- at age 42 Brother(s) Family Medical History: Cancer Additional Family Medical History / Comment(s): with unknown type CA at age 60s Medications and Allergies Home Medications Medication Instructions Recorded Confirmed Type Cyanocobalamin (Vitamin B-12) 1,000 mcg PO DAILY 12/30/20 04/13/23 History [Vitamin B-12] Ferrous Sulfate [Iron (65 MG 325 mg PO HS 12/30/20 04/13/23 History Elemental)] Vit C/E/Zn/Coppr/Lutein/Zeaxan 1 cap PO BID 12/30/20 04/13/23 History [Preservision Areds 2 Softgel] Cholecalciferol (Vitamin D3) 125 mcg PO DAILY 04/25/21 04/13/23 History [Vitamin D3 (125 MCG = 5,000 IU)] Metoprolol Succinate (ER) [Toprol 50 mg PO HS 04/25/21 04/13/23 History XL] Furosemide [Lasix] 40 mg PO DAILY 02/04/23 04/13/23 History Magnesium Oxide [Mag-Ox] 400 mg PO HS 02/04/23 04/13/23 History Folic Acid 0.4 mg PO DAILY 04/13/23 04/13/23 History Allergies Allergy/AdvReac Type Severity Reaction Status Date / Time omeprazole [From Prilosec] Allergy Unknown Rash/Hives, Verified 04/13/23 10:55 TONGUE SWELLLING omeprazole magnesium Allergy Unknown Rash/Hives, Verified 04/13/23 10:55 [From Prilosec] TONGUE SWELLLING Penicillins Allergy Unknown Rash/Hives/ Verified 04/13/23 10:55 Itching amlodipine Allergy fide pedal Verified 04/13/23 10:55 edema, loss voice carvedilol Allergy shortness Verified 04/13/23 10:55 of breath lisinopril Allergy Unknown Verified 04/13/23 10:55 Physical Exam Vitals: Vital Signs Temp Pulse Pulse Resp BP BP Pulse Ox 04/14/23 06:10 99.3 F 75 17 146/81 100 04/14/23 01:54 97.9 F 83 18 111/70 100 04/13/23 22:26 76 107/64 04/13/23 20:03 86/42 04/13/23 19:39 98.4 F 91 18 77/40 97 04/13/23 13:43 99.3 F 86 18 111/52 99 04/13/23 12:22 100.6 F H 04/13/23 10:10 98.8 F 80 18 108/52 99 Intake and Output 04/13/23 04/14/23 04/14/23 22:59 06:59 14:59 Other: # Voids 1 1 Results CBC & Chem 7: 04/15/23 05:03 04/15/23 05:03 Labs: Abnormal Lab Results - Last 24 Hours (Table) 04/13/23 04/13/23 04/13/23 Range/Units 05:34 05:34 08:30 ESR 65 H (0-30) mm/Hr Plasma Lactic Acid Shane (0.7-2.0) mmol/L C-Reactive Protein 2.7 H (<1.0) mg/dL Procalcitonin 6.06 H (0.02-0.09) ng/mL 04/13/23 04/13/23 Range/Units 10:22 20:25 ESR (0-30) mm/Hr Plasma Lactic Acid Shane 3.4 H* 2.3 H* (0.7-2.0) mmol/L C-Reactive Protein (<1.0) mg/dL Procalcitonin (0.02-0.09) ng/mL Assessment and Plan Plan: 1patient presents to hospital with sepsis in this patient who did have a fever tachycardia elevated white count source was likely right-sided pneumonia more li bertha community-acquired, clinical suspicion is low for gram-negative or aspiration pneumonia 2-patient with a positive blood culture with gram-positive Besecker more likely is contamination 3-blood cultures will be repeated to document clearance 4-we will obtain sputum for Gram stain culture check a CRP and procalcitonin 5-continue with Rocephin and Zithromax We will follow on clinical condition and cultures to further adjust medication if needed Thank you for this consultation we will follow the patient along with you Dictation was produced using [employer] dictation software. please excuse any g rammatical, word or spelling errors. Time with Patient: Greater than 30
--- NOTE | 2023-04-15 07:24 | XR ---
EXAMINATION TYPE: XR chest 1V portable DATE OF EXAM: 04/15/2023 5:35 AM CLINICAL INDICATION:Female, 78 years old with history of chf exacerbation; COMPARISON: Chest radiographs from 04/14/2023. TECHNIQUE: XR chest 1V portable Frontal view of the chest. FINDINGS: Lungs/Pleura: No evidence of focal consolidation or pneumothorax. Blunting of the costophrenic angles is present. Pulmonary vascularity: Unremarkable. Heart/mediastinum: Cardiomediastinal silhouette is unremarkable. Musculoskeletal: No acute osseous pathology. IMPRESSION: Cardiomegaly, pulmonary vascular congestion and bilateral pleural effusions. Correlate with BNP for c ongestive heart failure.
[2023-04-15] MEDS: FUROSEMIDE 10 MG/ML 2 ML VIAL IV SCH ×2 (08:38→21:35)
[2023-04-15] MEDS: CYANOCOBALAMIN 500 MCG TAB PO SCH (08:38)
[2023-04-15] MEDS: VIT A,C & E-LUTEIN-MINERALS 1 EACH TAB PO SCH ×2 (08:38→21:35)
[2023-04-15] MEDS: FOLIC ACID 1 MG TAB PO SCH (08:38)
[2023-04-15] MEDS: METOPROLOL SUCCINATE (ER) 50 MG TAB.ER.24H PO SCH (08:38)
[2023-04-15] MEDS: AZITHROMYCIN 500 MG TAB PO SCH (08:38)
[2023-04-15] MEDS: CHOLECALCIFEROL 125 MCG (5000 IU) TABLET PO SCH (08:39)
[2023-04-15] MEDS: DILTIAZEM 125 MG in SODIUM CHLORIDE 0.9% 100 ML IV SCH ×2 (08:54→21:33)
--- NOTE | 2023-04-15 11:06 | P.PN ---
Subjective Progress Note Date: 04/15/23 Principal diagnosis: Fever, pneumonia. Acute febrile illness, possible pneumonia This is a pleasant 78-year-old female patient with a known history of mild intermittent chronic bronchial asthma, congestive heart failure, hypertension, inclusion body myositis site is, lifelong nonsmoker. She presented here to the emergency room early this morning with complaints of fever and generalized weakness. States her temperature was up to 105 at home. She had some shortness of breath and chills as well. Chest x-ray reveals cardiomegaly with pulmonary vascular congestion and tiny effusions. There is a patchy density in the right suprahilar region may reflect developing infiltrate. White count 10.6. Hemoglobin 10.5. Platelets 86,000. Sodium 135. Potassium 4.2. Bicarb 23. BUN 40. Creatinine 1.12. Lactic acid 2.2. AST 102. ALT 39. Alk phos 184. ProBNP 10,800. She is seen today in consultation in the emergency department. She is currently sitting up on a stretcher. She is awake and alert in no acute distress. She is maintaining good O2 saturations in the high 90s on 2 L/m per nasal cannula. She has a T-max of 101.1. She was initiated on ceftriaxone and azithromycin. Normal saline at 20 ML's per hour. Was given Lasix 20 mg IVP 1. We did order a sed rate which is 65, C-reactive protein which is 2.7 and a calcitonin which is 6.06. Patient was very on 04/14/2023, patient is in the ICU but she is actually a 3 S. overflow. I saw this patient yesterday in the ER, and she was admitted with acute febrile illness, elevated pro calcitonin level, however she had no symptoms clinically to suggest pneumonia chest x-ray showed vague left lower lobe atelectasis and right perihilar atelectasis, patient had no cough, no shortness of breath, no chest pain, but she did have a fever. Patient was admitted placed on antibiotics empirically, BNP level was elevated at 10,000, and the patient is empirically on Rocephin and Zithromax. Chest x-ray itself d id not point to congestive heart failure, overnight the patient developed SVT, she required Lopressor IV push, and she was placed on Cardizem at 10 mg per hour. Patient is doing much per her today, heart rate is down to 96, and she is to be seen by cardiology regarding her SVT. This is a relatively new onset. Patient also had a T-max of 99.8 last night. Presently afebrile. Blood pressure is 120/73. Mean arterial pressure 87. When the patient had SVT left, she did receive adenosine 2. He also received Lopressor, and now she is on Cardizem drip. Blood cultures are showing gram-positive bacilli which is clearly a skin contaminant. More blood cultures are pending. WBC count today is 12.8 hemoglobin 11.3. ABG this morning on 35% showed a pO2 of 109 pCO2 38 pH of 7.37. Basic metabolic profile is relatively unremarkable except for creatinine jumping up to 1.59 from 1.1 to yesterday lactic acid this morning is 2.0. Progress note dated 04/15/2023. 78-year-old female seen today in room 252. She was admitted to the hospital on April 13. She came to the intensive care unit on April 15, with supraventricular tachycardia. She is resting comfortably today in room 252. Th e patient's on room air. The patient's getting saline at 20 mL an hour. She continues on Rocephin and azithromycin. Initially, she had a fever, although the source of infection is unclear. White count is 13.1, hemoglobin 9.3, hematocrit 28.2, and platelet count 87,000. PT is 14.7 with an INR 1.4. PTT is 131. Sodium 130, potassium 3.8, chlorides 101, CO2 22, BUN 57, and creatinine 1.61. Troponins are 0.230, 0.193, and 0.147. Chest x-rays consistent with fluid overload. Objective - Vital Signs Vital signs: Vital Signs Temp 98 F 04/15/23 08:00 Pulse 72 04/15/23 08:00 Resp 21 04/15/23 08:00 BP 142/77 04/15/23 08:00 Pulse Ox 95 04/15/23 08:00 FiO2 Intake & Output 04/14/23 04/15/23 04/15/23 18:59 06:59 18:59 Intake Total 288.833 247.549 Output Total 200 950 Balance 88.833 -702.451 Weight 86.9 kg Intake: IV 230 140 Sodium Chloride 0.9% 1, 180 140 000 ml @ 20 mls/hr IV . Q24H [facility] Rx#:[id number] cefTRIAXone 2 gm In 50 Sodium Chloride 0.9% 50 ml @ 100 mls/hr IVPB Q24HR [facility] Rx#:[id number] Intake, IV Titration 58.833 107.549 Amount Diltiazem 125 mg In 58.833 Sodium Chloride 0.9% 100 ml @ 10 MG/HR 10 mls/hr IV .[id number] [facility] Rx#: [id number] Heparin Sod,Pork in 0.45% 107.549 NaCl 25,000 unit In 0.45 % NaCl 1 250ml.bag @ 12 UNITS/KG/HR 8.981 mls/hr IV .Q24H [facility] Rx#: [id number] Output: Urine 200 950 Other: Voiding Method External Catheter External Catheter External Catheter # Voids 1 4 - Exam No acute distress, oriented 3. No respiratory distress. Currently on room air. HEENT examination is grossly unremarkable. Mucous membranes are moist. No oral lesions. Neck supple. Full range of motion. No adenopathy thyromegaly or neck vein distention. Cardiovascular examination reveals regular rhythm rate. S1-S2 normal. No S3 or S4. No discernible murmur noted. Heart rate 72 bpm. Lungs reveal scattered mild rhonchi. No crackles or wheezes. Breath sounds equal. Room air saturation is 95%. Abdomen soft bowel sounds are heard. No masses or tenderness. Extremities are intact. No cyanosis clubbing or edema. Skin is without rash or lesion. Neurologic examination is brief but nonfocal. - Labs CBC & Chem 7: 04/15/23 05:03 04/15/23 05:03 Labs: Abnormal Lab Results - Last 24 Hours (Table) 04/14/23 04/14/23 04/14/23 Range/Units 12:42 14:48 17:29 WBC (3.8-10.6) k/uL RBC (3.80-5.40) m/uL Hgb (11.4-16.0) gm/dL Hct (34.0-46.0) % MCV (80.0-100.0) fL Plt Count (150-450) k/uL Neutrophils # (Manual) (1.3-7.7) k/uL Monocytes # (Manual) (0-1.0) k/uL PT 15.0 H (10.0-12.5) sec INR 1.5 H (<1.2) APTT 31.4 H (22.0-30.0) sec Sodium (137-145) mmol/L BUN (7-17) mg/dL Creatinine (0.52-1.04) mg/dL Calcium (8.4-10.2) mg/dL Troponin I 0.230 H* 0.193 H* (0.000-0.034) ng/mL 04/14/23 04/14/23 04/15/23 Range/Units 20:41 20:41 05:03 WBC (3.8-10.6) k/uL RBC (3.80-5.40) m/uL Hgb (11.4-16.0) gm/dL Hct (34.0-46.0) % MCV (80.0-100.0) fL Plt Count (150-450) k/uL Neutrophils # (Manual) (1.3-7.7) k/uL Monocytes # (Manual) (0-1.0) k/uL PT 14.7 H (10.0-12.5) sec INR 1.4 H (<1.2) APTT 128.4 H* (22.0-30.0) sec Sodium (137-145) mmol/L BUN (7-17) mg/dL Creatinine (0.52-1.04) mg/dL Calcium (8.4-10.2) mg/dL Troponin I 0.147 H* (0.000-0.034) ng/mL 04/15/23 04/15/23 04/15/23 Range/Units 05:03 05:03 05:03 WBC 13.1 H (3.8-10.6) k/uL RBC 2.69 L (3.80-5.40) m/uL Hgb 9.3 L D (11.4-16.0) gm/dL Hct 28.2 L (34.0-46.0) % MCV 104.7 H (80.0-100.0) fL Plt Count 87 L (150-450) k/uL Neutrophils # (Manual) 9.50 H (1.3-7.7) k/uL Monocytes # (Manual) 1.05 H (0-1.0) k/uL PT (10.0-12.5) sec INR (<1.2) APTT 130.5 H* (22.0-30.0) sec Sodium 130 L (137-145) mmol/L BUN 57 H (7-17) mg/dL Creatinine 1.61 H (0.52-1.04) mg/dL Calcium 7.7 L (8.4-10.2) mg/dL Troponin I (0.000-0.034) ng/mL Microbiology - Last 24 Hours (Table) 04/13/23 08:30 Blood Culture Gram Stain - Preliminary Blood Assessment and Plan Assessment: Acute febrile illness, possibly secondary to pneumonia. Acute hypoxemic respiratory failure, likely multifactorial, in part related to CHF/interstitial edema, atelectasis, and possible pneumonia. Atrial fibrillation with rapid ventricular response. Wide-complex tachycardia. Acute on chronic systolic CHF. Elevated liver enzymes, likely secondary to CHF. Benign essential hypertension. Acute kidney injury. Inclusion body myositis. Plan: Plan dated 04/15/2023. The patient was on medication for atrial fibrillation, but it has been discontinued. The patient is no longer on IV heparin. Her last PTT was greater than 1:30. The patient continues on azithromycin and Rocephin, for possible infection. In addition, the patient continues on saline at 20 mL an hour. Labs, x-rays, and medications are all reviewed. The patient's chest x-ray is consistent with mild fluid overload/CHF. No clearcut source of infection on this patient, despite fever, and an elevated pro calcitonin level. We will continue to follow make recommendations along the way. Prognosis is guarded. Time with Patient: Greater than 30
--- NOTE | 2023-04-15 12:47 | P.PN ---
Subjective Progress Note Date: 04/15/23 Patient is a 78-year-old lady with past medical history significant for asthma, congestive heart failure, spinal stenosis, hypertension, hyperlipidemia, and chronic kidney disease who presented to the hospital for fever and confusion. Patient symptoms started 24 hours ago before that patient was perfectly normal, noticed that patient was getting more confused, was also having fevers at home. There was no complain of any chills. Patient was getting short of breath on exertion. Denies any chest pain. Patient was having productive cough. No complain of nausea, vomiting abdominal pain. No swelling of feet. Denied any palpitation. Patient was cleaning and generalized weakness. Because of the symptoms, patient was brought to the ER Initial lab work done in the ER showed WBC was 10.6, hemoglobin 10.5, platelet count 86, sodium 139 potassium 4.2 BUN 40, creatinine 1.12, lactate 2.2, bilirubin 3.6, AST 102, ALT 39 Chest x-ray done in the ER showed continued pulmonary venous congestion with cardiomegaly and tiny effusions, increased patchy density right suprahilar region may reflect clubbing infiltrate Patient admitted to medicine service 04/14. Patient seen and examined. Patient had a rapid response overnight for tachycardia, was given IV edema seen in Lopressor, heart rate remained elevated, was started on Cardizem drip. Labs done this morning showed WBC 12.8, hemoglobin 11.3, platelet count 104, sodium 132, potassium 3.8 BUN 55, creatinine 1.59.. Currently on 2 L of oxygen. Complaining of shortness of breath. Patient will be moved to ICU 04/15. Patient seen and examined. States she feels better compared to yesterday, no further episodes of shortness of breath. Still has on and off chest pressure REVIEW OF SYSTEMS: CONSTITUTIONAL: Had low-grade fever overnight CARDIOVASCULAR: , no palpitations, no syncope. PULMONARY: As mentioned above GASTROINTESTINAL: No diarrhea, no nausea, no vomiting, no abdominal pain. NEUROLOGICAL: No headaches, no weakness, PHYSICAL EXAMINATION: GENERAL: The patient is alert and oriented x3, not in any acute distress. Chronically ill-looking HEENT: Pupils are round and equally reacting to light. EOMI. No scleral icterus. No conjunctival pallor. Normocephalic, atraumatic. No pharyngeal erythema. No thyromegaly. CARDIOVASCULAR: S1 and S2 present. No murmurs, rubs, or gallops. Tachycardic PULMONARY: Chest is clear to auscultation, no wheezing or crackles. ABDOMEN: Soft, nontender, nondistended, normoactive bowel sounds. No palpable organomegaly. MUSCULOSKELETAL: No joint swelling or deformity. EXTREMITIES: 2+ pitting edema lower extremities bilaterally NEUROLOGICAL: Gross neurological examination did not reveal any focal deficits. SKIN: No rashes. Assessment and plan Acute hypoxic respiratory failure Acute metabolic encephalopathy Bacterial pneumonia Chronic bronchial asthma A. fib with RVR Acute on chronic CHF with reduced EF Lactic acidosis Elevated LFTs Nonischemic cardiomyopathy Hypertension Hyperlipidemia Valvular heart disease Monitor vital signs Monitor CBC Monitor CMP Continue telemetry monitoring Encourage use of incentive spirometer Follow-up on blood cultures Follow-up on sputum cultures Strict I's and O's, daily weights, continue IV Lasix Continue IV Rocephin and azithromycin Continue Toprol 50 mg daily Continue heparin drip Monitor LFT Cardiology following, Pulmonology following ID following Labs and medication were reviewed.. Continue same treatment. Continue with symptomatic treatment. Resume home medication. Monitor labs and vitals. DVT and GI prophylaxis. Further recommendations as per clinical course of the patient Dictation was produced using [employer] dictation software. please excuse any grammatical, word or spelling errors. Objective - Vital Signs Vital signs: Vital Signs Temp 97.8 F 04/15/23 12:00 Pulse 72 04/15/23 12:00 Resp 17 04/15/23 12:00 BP 136/74 04/15/23 12:00 Pulse Ox 96 04/15/23 12:00 FiO2 Intake & Output 04/14/23 04/15/23 04/15/23 18:59 06:59 18:59 Intake Total 288.833 247.549 290 Output Total 200 950 Balance 88.833 -702.451 290 Weight 86.9 kg Intake: IV 230 140 170 Sodium Chloride 0.9% 1, 180 140 120 000 ml @ 20 mls/hr IV . Q24H [facility] Rx#:[id number] cefTRIAXone 2 gm In 50 50 Sodium Chloride 0.9% 50 ml @ 100 mls/hr IVPB Q24HR [facility] Rx#:[id number] Intake, IV Titration 58.833 107.549 0 Amount Diltiazem 125 mg In 58.833 Sodium Chloride 0.9% 100 ml @ 10 MG/HR 10 mls/hr IV .[id number] [facility] Rx#: [id number] Heparin Sod,Pork in 0.45% 107.549 0 NaCl 25,000 unit In 0.45 % NaCl 1 250ml.bag @ 12 UNITS/KG/HR 8.981 mls/hr IV .Q24H [facility] Rx#: [id number] Oral 120 Output: Urine 200 950 Other: Voiding Method External Catheter External Catheter External Catheter # Voids 1 4 1 # Bowel Movements 1 - Labs CBC & Chem 7: 04/15/23 05:03 04/15/23 05:03 Labs: Abnormal Lab Results - Last 24 Hours (Table) 04/14/23 04/14/23 04/14/23 Range/Units 12:42 14:48 17:29 WBC (3.8-10.6) k/uL RBC (3.80-5.40) m/uL Hgb (11.4-16.0) gm/dL Hct (34.0-46.0) % MCV (80.0-100.0) fL Plt Count (150-450) k/uL Neutrophils # (Manual) (1.3-7.7) k/uL Monocytes # (Manual) (0-1.0) k/uL PT 15.0 H (10.0-12.5) sec INR 1.5 H (<1.2) APTT 31.4 H (22.0-30.0) sec Sodium (137-145) mmol/L BUN (7-17) mg/dL Creatinine (0.52-1.04) mg/dL Calcium (8.4-10.2) mg/dL Troponin I 0.230 H* 0.193 H* (0.000-0.034) ng/mL 04/14/23 04/14/23 04/15/23 Range/Units 20:41 20:41 05:03 WBC (3.8-10.6) k/uL RBC (3.80-5.40) m/uL Hgb (11.4-16.0) gm/dL Hct (34.0-46.0) % MCV (80.0-100.0) fL Plt Count (150-450) k/uL Neutrophils # (Manual) (1.3-7.7) k/uL Monocytes # (Manual) (0-1.0) k/uL PT 14.7 H (10.0-12.5) sec INR 1.4 H (<1.2) APTT 128.4 H* (22.0-30.0) sec Sodium (137-145) mmol/L BUN (7-17) mg/dL Creatinine (0.52-1.04) mg/dL Calcium (8.4-10.2) mg/dL Troponin I 0.147 H* (0.000-0.034) ng/mL 04/15/23 04/15/23 04/15/23 Range/Units 05:03 05:03 05:03 WBC 13.1 H (3.8-10.6) k/uL RBC 2.69 L (3.80-5.40) m/uL Hgb 9.3 L D (11.4-16.0) gm/dL Hct 28.2 L (34.0-46.0) % MCV 104.7 H (80.0-100.0) fL Plt Count 87 L (150-450) k/uL Neutrophils # (Manual) 9.50 H (1.3-7.7) k/uL Monocytes # (Manual) 1.05 H (0-1.0) k/uL PT (10.0-12.5) sec INR (<1.2) APTT 130.5 H* (22.0-30.0) sec Sodium 130 L (137-145) mmol/L BUN 57 H (7-17) mg/dL Creatinine 1.61 H (0.52-1.04) mg/dL Calcium 7.7 L (8.4-10.2) mg/dL Troponin I (0.000-0.034) ng/mL Microbiology - Last 24 Hours (Table) 04/13/23 08:30 Blood Culture Gram Stain - Preliminary Blood
[2023-04-15] MEDS: HEPARIN SOD,PORK IN 0.45% NACL 25,000 UNIT in 0.45% NACL 1 250ML.BAG IV SCH (13:47)
[2023-04-15] MEDS: APIXABAN 2.5 MG TABLET PO SCH ×2 (13:50→21:35)
[2023-04-15] MEDS: FERROUS SULFATE 325 MG TAB PO SCH (21:35)
[2023-04-15] MEDS: METOPROLOL SUCCINATE (ER) 25 MG TAB.ER.24H PO SCH (21:35)
[2023-04-15] MEDS: MAGNESIUM OXIDE 400 MG TAB PO SCH (21:35)
--- NOTE | 2023-04-16 00:52 | PN ---
PROGRESS NOTE SUBJECTIVE: Basia is an 78-year-old lady that is admitted to ICU because of atrial fibrillation with rapid ventricular rate. She converted back to sinus rhythm and remains in sinus rhythm at the time of my evaluation. She is on IV heparin. Will convert that into Eliquis 2.5 b.i.d. She denies any chest pain or difficulty in breathing. OBJECTIVE: VITAL SIGNS: On exam, afebrile, heart rate is 70 beats per minute, blood pressure is 136/74, respiratory rate is 18, O2 saturation is 96% on room air. CHEST: Reveals diminished air entry bilaterally. HEART: Reveals first and second heart sounds. Irregular rhythm. Systolic murmur at the apex. EXTREMITIES: Examination of extremities reveals mild edema bilaterally. LABORATORY DATA: Labs show a hemoglobin of 9.3, platelet count is 87. Potassium is 3.8, creatinine is 1.6. ASSESSMENT: Paroxysmal atrial fibrillation. PLAN: The patient is doing better. I will stop the heparin. Midodrine that was started for hypotension is currently on hold. MMODL / IJN: [id number] /
[2023-04-16 04:50] LABS: HCT 29.5 % (34.0-46.0); HGB 9.8 gm/dL (11.4-16.0); MCH 34.8 pg (25.0-35.0); MCHC 33.2 g/dL (31.0-37.0); MCV 104.9 fL (80.0-100.0); Macrocytosis Moderate; Platelet Count 100 k/uL (150-450); RBC 2.81 m/uL (3.80-5.40); RDW 14.7 % (11.5-15.5); WBC 7.8 k/uL (3.8-10.6)
[2023-04-16 04:52] LABS: African American GFR (CKD) 44 (>60 ml/min/1.73 sqM); Anion Gap 6 mmol/L; Blood Urea Nitrogen 50 mg/dL (7-17); Carbon Dioxide 24 mmol/L (22-30); Chloride 104 mmol/L (98-107); Glucose 87 mg/dL (74-99); Non-African American GFR(CKD) 39 (>60 ml/min/1.73 sqM); Potassium 3.3 mmol/L (3.5-5.1); Sodium 134 mmol/L (137-145)
[2023-04-16 05:52] LABS: Band Neutrophils % 2 %; Eosinophils # (M) 0.94 k/uL (0-0.7); Lymphocytes # (M) 0.86 k/uL (1.0-4.8); Monocytes # (M) 0.39 k/uL (0-1.0); Neutrophils % (M) 70 %; Nucleated Red Blood Cells 0 /100 WBC (0-0); Total Cells Counted 100
[2023-04-16] MEDS ORDERED: Potassium Replacement Protocol 1 EACH MISC MISCELLANE PRN (05:53)
[2023-04-16 05:54] LABS: Anisocytosis (M) Present
[2023-04-16] MEDS: POTASSIUM BICARBONATE/CIT AC 20 MEQ TABLET.EFF NG-TUBE SCH ×2 (06:05→07:01)
[2023-04-16] MEDS: MIDODRINE 5 MG TAB PO SCH ×3 (07:30→16:12)
[2023-04-16] MEDS: FUROSEMIDE 10 MG/ML 2 ML VIAL IV SCH ×2 (09:29→20:08)
[2023-04-16] MEDS: METOPROLOL SUCCINATE (ER) 50 MG TAB.ER.24H PO SCH (09:30)
[2023-04-16] MEDS: VIT A,C & E-LUTEIN-MINERALS 1 EACH TAB PO SCH ×2 (09:30→20:08)
[2023-04-16] MEDS: APIXABAN 2.5 MG TABLET PO SCH ×2 (09:30→20:08)
[2023-04-16] MEDS: FOLIC ACID 1 MG TAB PO SCH (09:30)
[2023-04-16] MEDS: CYANOCOBALAMIN 500 MCG TAB PO SCH (09:30)
[2023-04-16] MEDS: CHOLECALCIFEROL 125 MCG (5000 IU) TABLET PO SCH (09:30)
[2023-04-16] MEDS: SODIUM CHLORIDE 0.9% 1,000 ML IV SCH (09:49)
--- NOTE | 2023-04-16 10:35 | P.PN ---
Subjective Progress Note Date: 04/16/23 Principal diagnosis: Fever, pneumonia. Acute febrile illness, possible pneumonia This is a pleasant 78-year-old female patient with a known history of mild intermittent chronic bronchial asthma, congestive heart failure, hypertension, inclusion body myositis site is, lifelong nonsmoker. She presented here to the emergency room early this morning with complaints of fever and generalized weakness. States her temperature was up to 105 at home. She had some shortness of breath and chills as well. Chest x-ray reveals cardiomegaly with pulmonary vascular congestion and tiny effusions. There is a patchy density in the right suprahilar region may reflect developing infiltrate. White count 10.6. Hemoglobin 10.5. Platelets 86,000. Sodium 135. Potassium 4.2. Bicarb 23. BUN 40. Creatinine 1.12. Lactic acid 2.2. AST 102. ALT 39. Alk phos 184. ProBNP 10,800. She is seen today in consultation in the emergency department. She is currently sitting up on a stretcher. She is awake and alert in no acute distress. She is maintaining good O2 saturations in the high 90s on 2 L/m per nasal cannula. She has a T-max of 101.1. She was initiated on ceftriaxone and azithromycin. Normal saline at 20 ML's per hour. Was given Lasix 20 mg IVP 1. We did order a sed rate which is 65, C-reactive protein which is 2.7 and a calcitonin which is 6.06. Patient was very on 04/14/2023, patient is in the ICU but she is actually a 3 S. overflow. I saw this patient yesterday in the ER, and she was admitted with acute febrile illness, elevated pro calcitonin level, however she had no symptoms clinically to suggest pneumonia chest x-ray showed vague left lower lobe atelectasis and right perihilar atelectasis, patient had no cough, no shortness of breath, no chest pain, but she did have a fever. Patient was admitted placed on antibiotics empirically, BNP level was elevated at 10,000, and the patient is empirically on Rocephin and Zithromax. Chest x-ray itself d id not point to congestive heart failure, overnight the patient developed SVT, she required Lopressor IV push, and she was placed on Cardizem at 10 mg per hour. Patient is doing much per her today, heart rate is down to 96, and she is to be seen by cardiology regarding her SVT. This is a relatively new onset. Patient also had a T-max of 99.8 last night. Presently afebrile. Blood pressure is 120/73. Mean arterial pressure 87. When the patient had SVT left, she did receive adenosine 2. He also received Lopressor, and now she is on Cardizem drip. Blood cultures are showing gram-positive bacilli which is clearly a skin contaminant. More blood cultures are pending. WBC count today is 12.8 hemoglobin 11.3. ABG this morning on 35% showed a pO2 of 109 pCO2 38 pH of 7.37. Basic metabolic profile is relatively unremarkable except for creatinine jumping up to 1.59 from 1.1 to yesterday lactic acid this morning is 2.0. Progress note dated 04/15/2023. 78-year-old female seen today in room 252. She was admitted to the hospital on April 13. She came to the intensive care unit on April 15, with supraventricular tachycardia. She is resting comfortably today in room 252. Th e patient's on room air. The patient's getting saline at 20 mL an hour. She continues on Rocephin and azithromycin. Initially, she had a fever, although the source of infection is unclear. White count is 13.1, hemoglobin 9.3, hematocrit 28.2, and platelet count 87,000. PT is 14.7 with an INR 1.4. PTT is 131. Sodium 130, potassium 3.8, chlorides 101, CO2 22, BUN 57, and creatinine 1.61. Troponins are 0.230, 0.193, and 0.147. Chest x-rays consistent with fluid overload. Progress note dated 04/16/2023. 78-year-old female seen in room 252, intensive care unit. She was initially admitted to the hospital, on April 13, and came to the intensive care unit on April 15, with supraventricular tachycardia. She was also thought to have an infection, although the source of infection is unclear. She continues on Rocephin. Her pro-calcitonin level was 11.1. She's getting room air with saturations of 97%. She's getting saline at 10 mL an hour. White count 7.8, hemoglobin 9.8, hematocrit 29.5, and platelet count 100,000. PTT was 130.5, yesterday. Sodium 134, potassium 3.3, chlorides 104, CO2 24, BUN 50, creatinine 1.31. Blood cultures are positive for Corynebacterium species, likely a contaminant. Chest x-ray from yesterday was reviewed. Objective - Vital Signs Vital signs: Vital Signs Temp 98.8 F 04/16/23 07:50 Pulse 77 04/16/23 08:00 Resp 19 04/16/23 08:00 BP 145/69 04/16/23 07:50 Pulse Ox 97 04/16/23 07:50 FiO2 Intake & Output 04/15/23 04/16/23 04/16/23 18:59 06:59 18:59 Intake Total 660 100 240 Output Total 1150 1400 Balance -490 -1300 240 Weight 83.1 kg Intake: IV 300 100 10 Invasive Line 1 10 Sodium Chloride 0.9% 1, 250 100 000 ml @ 10 mls/hr IV . Q24H MEÑO Rx#:[id number] cefTRIAXone 2 gm In 50 Sodium Chloride 0.9% 50 ml @ 100 mls/hr IVPB Q24HR MEÑO Rx#:[id number] Intake, IV Titration 0 Amount Heparin Sod,Pork in 0.45% 0 NaCl 25,000 unit In 0.45 % NaCl 1 250ml.bag @ 12 UNITS/KG/HR 8.981 mls/hr IV .Q24H MEÑO Rx#: [id number] Oral 360 230 Output: Urine 1150 1400 Other: Voiding Method External Catheter External Catheter External Catheter # Voids 1 3 # Bowel Movements 1 - Exam No acute distress, oriented 3. No respiratory distress. Currently on room air. HEENT examination is grossly unremarkable. Mucous membranes are moist. No oral lesions. Neck supple. Full range of motion. No adenopathy thyromegaly or neck vein distention. Cardiovascular examination reveals regular rhythm rate. S1-S2 normal. No S3 or S4. No discernible murmur noted. Heart rate 77 bpm. Lungs reveal scattered mild rhonchi. No crackles or wheezes. Breath sounds equal. Room air saturation is 97 %. Abdomen soft bowel sounds are heard. No masses or tenderness. Extremities are intact. No cyanosis clubbing or edema. Skin is without rash or lesion. Neurologic examination is brief but nonfocal. - Labs CBC & Chem 7: 04/16/23 03:07 04/16/23 03:07 Labs: Abnormal Lab Results - Last 24 Hours (Table) 04/15/23 04/16/23 04/16/23 Range/Units 05:03 03:07 03:07 RBC 2.81 L (3.80-5.40) m/uL Hgb 9.8 L (11.4-16.0) gm/dL Hct 29.5 L (34.0-46.0) % MCV 104.9 H (80.0-100.0) fL Plt Count 100 L (150-450) k/uL Lymphocytes # (Manual) 0.86 L (1.0-4.8) k/uL Eosinophils # (Manual) 0.94 H (0-0.7) k/uL Sodium 134 L (137-145) mmol/L Potassium 3.3 L (3.5-5.1) mmol/L BUN 50 H (7-17) mg/dL Creatinine 1.31 H (0.52-1.04) mg/dL Calcium 8.0 L (8.4-10.2) mg/dL Procalcitonin 11.10 H (0.02-0.09) ng/mL Microbiology - Last 24 Hours (Table) 04/14/23 10:24 Blood Culture - Preliminary Blood 04/13/23 08:30 Blood Culture Gram Stain - Preliminary Blood Blood Culture - Preliminary Corynebacterium species Assessment and Plan Assessment: Acute febrile illness, possibly secondary to pneumonia. Acute hypoxemic respiratory failure, likely multifactorial, in part related to CHF/interstitial edema, atelectasis, and possible pneumonia. Atrial fibrillation with rapid ventricular response. Wide-complex tachycardia. Acute on chronic systolic CHF. Elevated liver enzymes, likely secondary to CHF. Benign essential hypertension. Acute kidney injury. Inclusion body myositis. Plan: Plan dated 04/15/2023. The patient was on medication for atrial fibrillation, but it has been discontinued. The patient is no longer on IV heparin. Her last PTT was greater than 1:30. The patient continues on azithromycin and Rocephin, for possible infection. In addition, the patient continues on saline at 20 mL an hour. Labs, x-rays, and medications are all reviewed. The patient's chest x-ray is consistent with mild fluid overload/CHF. No clearcut source of infection on this patient, despite fever, and an elevated pro calcitonin level. We will continue to follow make recommendations along the way. Prognosis is guarded. Plan dated 04/16/2023. The patient is seen today in room 252. She's currently on room air. She's getting saline at 10 mL an hour. She continues on IV Rocephin. The patient's pro-calcitonin level was 11 currently, we are treating the patient for an infection, although the source of the infection is not clear. This could relate to some pneumonia. Anyway, her heart rhythm is much more stable. Clinically she is feeling much better. She is afebrile. Additional recommendations and suggestions are forthcoming. We will continue to follow the patient, and make recommendations along the way. Prognosis is guarded. Time with Patient: Less than 30
--- NOTE | 2023-04-16 12:28 | CA ---
Transthoracic Echo Report Name: Basia Hardy Age: 78 Gender: F : 1945 Exam Date: 04/15/2023 15:23 Exam Location: [facility] Ht (in): 64 Wt (lb): 191 Ordering Physician: Jeffrey Dawson MD ([id number]) Attending/Referring Phys: Eunice MCCOLLUM Shoe Repairer Helper Vidal Harper Procedure CPT: Indications: Heart failure Cardiac Hx: Technical Quality: Fair Contrast 1: Total Dose (mL): Contrast 2: Total Dose (mL): MEASUREMENTS (Male / Female) Normal Values 2D ECHO LV Diastolic Diameter PLAX 4.2 cm 4.2 - 5.9 / 3.9 - 5.3 cm LV Systolic Diameter PLAX 3.2 cm IVS Diastolic Thickness 1.7 cm 0.6 - 1.0 / 0.6 - 0.9 cm LVPW Diastolic Thickness 1.3 cm 0.6 - 1.0 / 0.6 - 0.9 cm LV Relative Wall Thickness 0.7 RV Internal Dim ED PLAX 2.6 cm LVOT Diameter 2.1 cm Aortic Root Diameter 3.0 cm LA Systolic Diameter LX 2.9 cm 3.0 - 4.0 / 2.7 - 3.8 cm LV Diastolic Volume MOD BP 87.1 cm??? 67 - 155 / 56 - 104 cm??? LV Systolic Volume MOD BP 35.3 cm??? 22 - 58 / 19 - 49 cm??? LV Ejection Fraction MOD BP 59.5 % >= 55 % LV Cardiac Index MOD BP 1828.8 cm???/min???m??? LV Diastolic Volume MOD 4C 79.1 cm??? LV Systolic Volume MOD 4C 40.5 cm??? LV Ejection Fraction MOD 4C 48.8 % LV Cardiac Index MOD 4C 1364.1 cm???/min???m??? LV Diastolic Length 4C 7.3 cm LV Systolic Length 4C 6.2 cm LV Diastolic Volume MOD 2C 93.8 cm??? LV Systolic Volume MOD 2C 30.4 cm??? LV Ejection Fraction MOD 2C 67.6 % LV Cardiac Index MOD 2C 2237.1 cm???/min???m??? LV Diastolic Length 2C 7.1 cm LV Systolic Length 2C 6.0 cm LA Volume 100.3 cm??? 18 - 58 / 22 - 52 cm??? LA Volume Index 49.9 cm???/m??? 16 - 28 cm???/m??? Ascending Aorta Diameter 2.8 cm DOPPLER AV Peak Velocity 175.9 cm/s AV Peak Gradient 12.4 mmHg LVOT Peak Velocity 91.0 cm/s LVOT Peak Gradient 3.3 mmHg LVOT Velocity Time Integral 22.1 cm LVOT Stroke Volume 78.8 cm??? LVOT Stroke Volume Index 41.1 ml/m??? LVOT Cardiac Index 2780.4 cm???/min???m??? AV Area Cont Eq pk 1.8 cm??? MV Peak Velocity 101.3 cm/s MV Peak Gradient 4.1 mmHg MV Mean Velocity 60.1 cm/s MV Mean Gradient 1.7 mmHg MV Velocity Time Integral 35.6 cm MR Peak Velocity 312.9 cm/s MR Peak Gradient 39.2 mmHg Mitral E Point Velocity 84.8 cm/s Mitral A Point Velocity 72.4 cm/s Mitral E to A Ratio 1.2 MV Deceleration Time 201.2 ms MV E' Velocity 5.1 cm/s Mitral E to MV E' Ratio 16.7 TR Peak Velocity 200.7 cm/s TR Peak Gradient 16.1 mmHg Right Ventricular Systolic Press 21.6 mmHg PV Peak Velocity 121.5 cm/s PV Peak Gradient 5.9 mmHg FINDINGS Left Ventricle Normal LV size. Mild conc LHV. Left ventricular ejection fraction is estimated at 50-55 %. Right Ventricle Normal right ventricular size. Right Atrium Normal right atrial size. Left Atrium Moderate atrial dilitation. LA volume index= 52ml/m2 Mitral Valve Mild MVP seen best in 2 chamber view. Mild MR. Aortic Valve Trileaflet aortic valve. No aortic regurgitation. Tricuspid Valve Structurally normal tricuspid valve. Trace TR. Pulmonic Valve Structurally normal pulmonic valve. Trace PI. Pericardium Normal pericardium. Aorta Normal size aortic root. CONCLUSIONS Normal LV function Left atrial enlargement Mild mitral regurgitation Previewed by: Dr. Jeffrey Dawson MD (Electronically Signed) Final Date: 16 April 2023 12:27
--- NOTE | 2023-04-16 13:05 | CDI ---
Documentation Clarification Form Date: 04/16/2023 12:44:22 PM From: Madyson Johnson RN CCDS Phone: [phone] Admit Date: 04/13/2023 08:05:00 AM Patient Name: Basia Hardy Visit Number: [id number] Discharge Date: ATTENTION: The Clinical Documentation Specialists (CDI) and [facility] Coding Staff appreciate your assistance in clarifying documentation. Please respond to the clarification below the line at the bottom and electronically sign. The CDI & [facility] Coding staff will review the response and follow-up if needed. Please note: Queries are made part of the Legal Health Record. If you have any questions, please contact the author of this message via ITS. Dr. Gayle The patient has sepsis documented in ID consult, 04/14. Based on this information and the findings below, is there an additional diagnosis that is clinically appropriate for this patient? History/Risk Factors: 78-year-old female presents to the ED with fever and confusion, shortness of breath on exertion, productive cough and generalized weakness. Medical History: Asthma, Heart failure, Eye disorder, HTN, MS and Inclusion body myositis. 04/13, H&P. Clinical Indicators: CXR, 04/13: Continued pulmonary congestion with cardiomegaly and tiny effusions, increased patchy density right suprahilar region may reflect developing infiltrate. WBC, 04/13: 10.6; 04/14: 12.8 Lactic acid,05/13: 2.2; 04/13: 3.4 CRP, 04/13: 2.7 CR, 04/13: 1.12; 04/14: 1.59 Procalcitonin, 04/13: 6.06 Blood cultures: 04/13 Corynebacterium species 04/14 No growth after 24 hours BNP, 04/13: [id number] Vitals signs, 04/13: B/P 158/75; HR 86; TEMP 101.1F oral, RR 18, SpO2 88% room air ID consult, 04/14: Patient presents to hospital with Sepsis with a fever, tachycardia, elevated white count source was likely right sided pneumonia more likely community acquired, clinical suspicion is low for gram negative or aspiration pneumonia. Patient with positive blood culture with gram positive Besecker more likely is contamination. Treatment: Albumin Human 500cc IVPB x 1 ID Consult: See above, 04/14 Antibiotics:04/13 Ceftriaxone ivpb x 1; Zithromax po x1; Ceftriaxone IVPB Q24HR x 4 bags. IV Bolus: 0.9ns 500cc IV bolus; Is there an additional diagnosis that is clinically appropriate for this patient? [ x ] Sepsis, present on admission [ ] Sepsis ruled out [ ] SIRS, without underlying infectious process [ ] Other, please specify [ ] Unable to determine SIRS Criteria: 2 or more of the following may indicate SIRS Temperature < 96.8F (36C) or > 101.0F (38.3C) Heart Rate > 90 bpm Respiratory Rate > 20 breaths/min or PaCO2 < 32 mmHg White Blood Cell Count > 12,000 or < 4,000 cells/mm3 or > 10% bands Documented 04/[address] Gayle / Gudelia Green STAPLE SHEAR OPERATOR: Pneumonia and sepsis likely community acquired present on admission with elevated procalcitonin level (Template Last Reviewed: May 2022) [facility]
--- NOTE | 2023-04-16 13:15 | CDI ---
Documentation Clarification Form Date: 04/16/2023 01:06:44 PM From: Madyson Johnson RN CCDS Phone: [phone] Admit Date: 04/13/2023 08:05:00 AM Patient Name: Basia Hardy Visit Number: [id number] Discharge Date: ATTENTION: The Clinical Documentation Specialists (CDI) and [facility] Coding Staff appreciate your assistance in clarifying documentation. Please respond to the clarification below the line at the bottom and electronically sign. The CDI & [facility] Coding staff will review the response and follow-up if needed. Please note: Queries are made part of the Legal Health Record. If you have any questions, please contact the author of this message via ITS. Dr. Gayle Conflicting documentation has been found in the medical record. As attending physician, please provide clarification. Bacterial Pneumonia, 04/12, H&P Right sided community acquired pneumonia, 04/14, ID Consult. History/Risk Factors: 78-year-old female presents to the ED with fever and confusion, shortness of breath on exertion, productive cough and generalized weakness. Medical History: Asthma, Heart failure, Eye disorder, HTN, MS and Inclusion body myositis. 04/13, H&P. Clinical Indicators: Vitals signs, 04/13: B/P 158/75; HR 86; TEMP 101.1F oral, RR 18, SpO2 88% room air CXR, 04/13: Continued pulmonary congestion with cardiomegaly and tiny effusions, increased patchy density right suprahilar region may reflect developing infiltrate. WBC, 04/13: 10.6; 04/14: 12.8 Procalcitonin, 04/13: 6.06 CRP, 04/13: 2.7 ID consult, 04/14: Patient presents to hospital with Sepsis with a fever, tachycardia, elevated white count source was likely right sided pneumonia more likely community acquired, clinical suspicion is low for gram negative or aspiration pneumonia. Treatment: ID Consult: See above, 04/14 Antibiotics:04/13 Ceftriaxone ivpb x 1; Zithromax po x1; Ceftriaxone IVPB Q24HR x 4 bags. IV Bolus: 0.9ns 500cc IV bolus; Please clarify which diagnosis is most appropriate: [ x ] Community acquired pneumonia [ ] Bacterial pneumonia, (please specify) [ ] Other (please specify) [ ] Unable to determine Documented 04/[address] Gayle and Gudelia Green DIGITAL TECHNICIAN: Pneumonia and sepsis likely community acquired present on admission with elevated procalcitonin level. (Template Last Revised: July 2020) [facility]
--- NOTE | 2023-04-16 14:36 | P.PN ---
Subjective Progress Note Date: 04/15/23 Principal diagnosis: Reason for follow-up is pneumonia Patient is a 78-year-old female with a past medical history significant for hypertension osteoarthritis heart failure and asthma patient presenting to the hospital for evaluation of fever and confusion and generalized weakness patient did have a x-rays of the patchy density right suprahilar region concerning for pneumonia On today's evaluation that is 04/15/2023, the patient remains to be afebrile, the patient is breathing comfortably on room air and denies any shortness of breath, the patient denies any chest pain, did have occasional cough but no sputum production, patient denies nausea/vomiting /diarrhea and no abdominal pain. Patient did have white count of 13.1, creatinine 1.61, procalcitonin is 11.10 Objective - Vital Signs Vital signs: Vital Signs Temp 97.8 F 04/15/23 12:00 Pulse 72 04/15/23 12:00 Resp 17 04/15/23 12:00 BP 136/74 04/15/23 12:00 Pulse Ox 96 04/15/23 12:00 FiO2 Intake & Output 04/14/23 04/15/23 04/15/23 18:59 06:59 18:59 Intake Total 288.833 247.549 290 Output Total 200 950 Balance 88.833 -702.451 290 Weight 86.9 kg Intake: IV 230 140 170 Sodium Chloride 0.9% 1, 180 140 120 000 ml @ 20 mls/hr IV . Q24H MEÑO Rx#:[id number] cefTRIAXone 2 gm In 50 50 Sodium Chloride 0.9% 50 ml @ 100 mls/hr IVPB Q24HR MEÑO Rx#:[id number] Intake, IV Titration 58.833 107.549 0 Amount Diltiazem 125 mg In 58.833 Sodium Chloride 0.9% 100 ml @ 10 MG/HR 10 mls/hr IV .[id number] MEÑO Rx#: [id number] Heparin Sod,Pork in 0.45% 107.549 0 NaCl 25,000 unit In 0.45 % NaCl 1 250ml.bag @ 12 UNITS/KG/HR 8.981 mls/hr IV .Q24H MEÑO Rx#: [id number] Oral 120 Output: Urine 200 950 Other: Voiding Method External Catheter External Catheter External Catheter # Voids 1 4 1 # Bowel Movements 1 - Exam GENERAL DESCRIPTION: An elderly female up in the chair in no distress RESPIRATORY SYSTEM: Unlabored breathing , decreased breath sound at the base HEART: S1 S2 regular rate and rhythm , ABDOMEN: Soft , no tenderness EXTREMITIES: No edema feet - Labs CBC & Chem 7: 04/16/23 03:07 04/16/23 03:07 Labs: Abnormal Lab Results - Last 24 Hours (Table) 04/14/23 04/14/23 04/14/23 Range/Units 12:42 14:48 17:29 WBC (3.8-10.6) k/uL RBC (3.80-5.40) m/uL Hgb (11.4-16.0) gm/dL Hct (34.0-46.0) % MCV (80.0-100.0) fL Plt Count (150-450) k/uL Neutrophils # (Manual) (1.3-7.7) k/uL Monocytes # (Manual) (0-1.0) k/uL PT 15.0 H (10.0-12.5) sec INR 1.5 H (<1.2) APTT 31.4 H (22.0-30.0) sec Sodium (137-145) mmol/L BUN (7-17) mg/dL Creatinine (0.52-1.04) mg/dL Calcium (8.4-10.2) mg/dL Troponin I 0.230 H* 0.193 H* (0.000-0.034) ng/mL 04/14/23 04/14/23 04/15/23 Range/Units 20:41 20:41 05:03 WBC (3.8-10.6) k/uL RBC (3.80-5.40) m/uL Hgb (11.4-16.0) gm/dL Hct (34.0-46.0) % MCV (80.0-100.0) fL Plt Count (150-450) k/uL Neutrophils # (Manual) (1.3-7.7) k/uL Monocytes # (Manual) (0-1.0) k/uL PT 14.7 H (10.0-12.5) sec INR 1.4 H (<1.2) APTT 128.4 H* (22.0-30.0) sec Sodium (137-145) mmol/L BUN (7-17) mg/dL Creatinine (0.52-1.04) mg/dL Calcium (8.4-10.2) mg/dL Troponin I 0.147 H* (0.000-0.034) ng/mL 04/15/23 04/15/23 04/15/23 Range/Units 05:03 05:03 05:03 WBC 13.1 H (3.8-10.6) k/uL RBC 2.69 L (3.80-5.40) m/uL Hgb 9.3 L D (11.4-16.0) gm/dL Hct 28.2 L (34.0-46.0) % MCV 104.7 H (80.0-100.0) fL Plt Count 87 L (150-450) k/uL Neutrophils # (Manual) 9.50 H (1.3-7.7) k/uL Monocytes # (Manual) 1.05 H (0-1.0) k/uL PT (10.0-12.5) sec INR (<1.2) APTT 130.5 H* (22.0-30.0) sec Sodium 130 L (137-145) mmol/L BUN 57 H (7-17) mg/dL Creatinine 1.61 H (0.52-1.04) mg/dL Calcium 7.7 L (8.4-10.2) mg/dL Troponin I (0.000-0.034) ng/mL Microbiology - Last 24 Hours (Table) 04/13/23 08:30 Blood Culture Gram Stain - Preliminary Blood Assessment and Plan (1) Allergy to penicillin Current Visit: Yes Status: Acute Code(s): Z88.0 - ALLERGY STATUS TO PENICILLIN SNOMED Code(s): 97091951 (2) Pneumonia Current Visit: Yes Status: Acute Code(s): J18.9 - PNEUMONIA, UNSPECIFIED ORGANISM SNOMED Code(s): 438406762 (3) Positive blood culture Current Visit: Yes Status: Acute Code(s): R78.81 - BACTEREMIA SNOMED Code(s): 176688722 Plan: 1patient presents to hospital with sepsis in this patient who did have a fever tachycardia elevated white count source was likely right-sided pneumonia more likely community-acquired, clinical suspicion is low for gram-negative or aspiration pneumonia 2-patient with a positive blood culture with gram-positive bacilli more likely contamination 3-blood cultures has been repeated to document clearance 4-try to obtain sputum for Gram stain culture , patient did have elevated procalcitonin of 11.10 5-patient to continue with Rocephin and Zithromax Dictation was produced using jellyfish dictation software. please excuse any grammatical, word or spelling errors. Time with Patient: Less than 30
--- NOTE | 2023-04-16 14:40 | P.PN ---
Subjective Progress Note Date: 04/16/23 Principal diagnosis: Reason for follow-up is pneumonia Patient is a 78-year-old female with a past medical history significant for hypertension osteoarthritis heart failure and asthma patient presenting to the hospital for evaluation of fever and confusion and generalized weakness patient did have a x-rays of the patchy density right suprahilar region concerning for pneumonia On today's evaluation that is 04/16/2023, the patient denies any fever or any chills, the patient is breathing comfortably on room air without the need for supplemental oxygen, patient denies chest pain shortness of breath, the patient did have occasional dry cough, patient denies Abdominal pain, no nausea/vomiting or diarrhea Patient did have white count has normalized to 7.8, creatinine is 1.31, procalcitonin is 11.10, blood culture with corynebacterium species, blood cultures repeated 04/14/2023 so far negative Objective - Vital Signs Vital signs: Vital Signs Temp 98.0 F 04/16/23 11:02 Pulse 78 04/16/23 11:02 Resp 18 04/16/23 11:02 BP 133/79 04/16/23 11:02 Pulse Ox 97 04/16/23 11:02 FiO2 Intake & Output 04/15/23 04/16/23 04/16/23 18:59 06:59 18:59 Intake Total 660 100 460 Output Total 1150 1400 Balance -490 -1300 460 Weight 83.1 kg 79 kg Intake: IV 300 100 30 Invasive Line 1 30 Sodium Chloride 0.9% 1, 250 100 000 ml @ 10 mls/hr IV . Q24H [facility] Rx#:[id number] cefTRIAXone 2 gm In 50 Sodium Chloride 0.9% 50 ml @ 100 mls/hr IVPB Q24HR [facility] Rx#:[id number] Intake, IV Titration 0 Amount Heparin Sod,Pork in 0.45% 0 NaCl 25,000 unit In 0.45 % NaCl 1 250ml.bag @ 12 UNITS/KG/HR 8.981 mls/hr IV .Q24H [facility] Rx#: [id number] Oral 360 430 Output: Urine 1150 1400 Other: Voiding Method External Catheter External Catheter External Catheter # Voids 1 3 # Bowel Movements 1 - Exam GENERAL DESCRIPTION: An elderly female up in the chair in no distress RESPIRATORY SYSTEM: Unlabored breathing , decreased breath sound at the base HEART: S1 S2 regular rate and rhythm , ABDOMEN: Soft , no tenderness EXTREMITIES: No edema feet - Labs CBC & Chem 7: 04/16/23 03:07 04/16/23 03:07 Labs: Abnormal Lab Results - Last 24 Hours (Table) 04/15/23 04/16/23 04/16/23 Range/Units 05:03 03:07 03:07 RBC 2.81 L (3.80-5.40) m/uL Hgb 9.8 L (11.4-16.0) gm/dL Hct 29.5 L (34.0-46.0) % MCV 104.9 H (80.0-100.0) fL Plt Count 100 L (150-450) k/uL Lymphocytes # (Manual) 0.86 L (1.0-4.8) k/uL Eosinophils # (Manual) 0.94 H (0-0.7) k/uL Sodium 134 L (137-145) mmol/L Potassium 3.3 L (3.5-5.1) mmol/L BUN 50 H (7-17) mg/dL Creatinine 1.31 H (0.52-1.04) mg/dL Calcium 8.0 L (8.4-10.2) mg/dL Procalcitonin 11.10 H (0.02-0.09) ng/mL Microbiology - Last 24 Hours (Table) 04/14/23 10:24 Blood Culture - Preliminary Blood 04/13/23 08:30 Blood Culture Gram Stain - Preliminary Blood Blood Culture - Preliminary Corynebacterium species Assessment and Plan (1) Allergy to penicillin Current Visit: Yes Status: Acute Code(s): Z88.0 - ALLERGY STATUS TO PENICILLIN SNOMED Code(s): 05285909 (2) Pneumonia Current Visit: Yes Status: Acute Code(s): J18.9 - PNEUMONIA, UNSPECIFIED ORGANISM SNOMED Code(s): 283446141 (3) Positive blood culture Current Visit: Yes Status: Acute Code(s): R78.81 - BACTEREMIA SNOMED Code(s): 117645881 Plan: 1patient presents to hospital with sepsis in this patient who did have a fever tachycardia elevated white count source was likely right-sided pneumonia more likely community-acquired, clinical suspicion is low for gram-negative or aspiration pneumonia 2-patient with a positive blood culture with corynebacterium species likely contamination, repeat blood cultures 04/14/2020 so far negative, patient did have elevated procalcitonin of 11.10 3-patient has shown clinical improvement and will continue with Rocephin and monitor clinical course closely Dictation was produced using [employer] dictation software. please excuse any grammatical, word or spelling errors. Time with Patient: Less than 30
--- NOTE | 2023-04-16 17:12 | P.PN ---
Subjective Progress Note Date: 04/16/23 The patient is a pleasant 78-year-old female patient who is known to our service from before with history of nonischemic cardiomyopathy and left bundle branch block as well as hypertension and dyslipidemia and heart failure. The patient presented to the hospital complaining of shortness of breath associated with fever and cough with no sputum production. No chest pain or chest discomfort. She developed mild bilateral lower extremity is edema. No dizziness or lightheadedness and no feeling of heart racing or fluttering and no presyncope or syncope and no chest pain or chest discomfort. Her temperature was elevated around 100.6. CBC and BNP came in to be unremarkable She underwent further work up including a chest x-ray and that showed pulmonary vascular congestion. Her NT proBNP came in to be elevated around 10,000. She was also slightly hypoxic when she presented to the emergency department appeared she is known to have asthma and has been under control according to her. She was started on antibiotic with ceftriaxone and azithromycin and we consulted to be see the patient for heart failure. When she was seen and evaluated she she doesn't seems to be in any overt congestive heart failure at this point. She underwent an echo earlier this year and that revealed preserved LV systolic function was mild to moderate valvular abnormalities. The physical examination is remarkable for regular rhythm with a systolic murmur at the right and left upper sternal border with diminished breathing sounds bilaterally and mild bilateral lower extremities edema. 04/14/2023 The patient was seen and evaluated this morning. She was transferred to the intensive care and yesterday after she developed an episode of tachycardia to me seems to be in atrial fibrillation versus atrial flutter with RVR and she was converted on Cardizem IV. Currently she is in sinus mechanism with LBBB. She is in mild failure. She is experiencing shortness of breath and she is hypoxic and also she does have bilateral lower extremity is edema. Currently she is on Lasix orally which I'm going to stop and start patient on Lasix IV with continued monitoring the kidney function and electrolytes. Meanwhile she was started on heparin IV by the internal medicine team. I am going also to obtain serial cardiac enzymes because she has been experiencing chest discomfort. Even though she underwent a heart catheterization in 2020 and that showed normal coronaries. The examination is remarkable for bilateral lower extremity edema and diminished breathing sounds bilaterally and irregular rhythm with a systolic murmur at the left and right upper sternal border 04/16/23 Patient is doing well from cardiac vessel standpoint today. She is currently in sinus rhythm. She is an anticoagulate with Eliquis 2.5 mg twice a day without any bleeding complications. She is tolerating IV Lasix. Assessment Acute hypoxic respiratory failure Febrile illness of unclear etiology at this point. Rule out pneumonia History of cardiomyopathy History of heart failure Left bundle-branch block Paroxysmal atrial fibrillation Plan Continue Eliquis, metoprolol and IV Lasix 20 mg twice a day Possible transition to by mouth Lasix tomorrow Monitor the kidney function and electrolytes Follow-up with the patient Objective - Vital Signs Vital signs: Vital Signs Temp 98.0 F 04/16/23 16:00 Pulse 87 04/16/23 16:00 Resp 18 04/16/23 16:00 BP 142/44 04/16/23 16:00 Pulse Ox 95 04/16/23 16:00 FiO2 Intake & Output 04/15/23 04/16/23 04/16/23 18:59 06:59 18:59 Intake Total 751 044 8814 Output Total 1150 1400 800 Balance -490 -1300 570 Weight 83.1 kg 79 kg Intake: IV 300 100 80 Invasive Line 1 30 Sodium Chloride 0.9% 1, 250 100 000 ml @ 10 mls/hr IV . Q24H [facility] Rx#:[id number] cefTRIAXone 2 gm In 50 50 Sodium Chloride 0.9% 50 ml @ 100 mls/hr IVPB Q24HR [facility] Rx#:[id number] Intake, IV Titration 0 Amount Heparin Sod,Pork in 0.45% 0 NaCl 25,000 unit In 0.45 % NaCl 1 250ml.bag @ 12 UNITS/KG/HR 8.981 mls/hr IV .Q24H [facility] Rx#: [id number] Oral 360 1290 Output: Urine 1150 1400 800 Other: Voiding Method External Catheter External Catheter External Catheter # Voids 1 3 # Bowel Movements 1 1 - Labs CBC & Chem 7: 04/16/23 03:07 04/16/23 03:07 Labs: Abnormal Lab Results - Last 24 Hours (Table) 04/16/23 04/16/23 Range/Units 03:07 03:07 RBC 2.81 L (3.80-5.40) m/uL Hgb 9.8 L (11.4-16.0) gm/dL Hct 29.5 L (34.0-46.0) % MCV 104.9 H (80.0-100.0) fL Plt Count 100 L (150-450) k/uL Lymphocytes # (Manual) 0.86 L (1.0-4.8) k/uL Eosinophils # (Manual) 0.94 H (0-0.7) k/uL Sodium 134 L (137-145) mmol/L Potassium 3.3 L (3.5-5.1) mmol/L BUN 50 H (7-17) mg/dL Creatinine 1.31 H (0.52-1.04) mg/dL Calcium 8.0 L (8.4-10.2) mg/dL Microbiology - Last 24 Hours (Table) 04/13/23 08:30 Blood Culture Gram Stain - Final Blood Blood Culture - Final Corynebacterium striatum 04/14/23 10:24 Blood Culture - Preliminary Blood
--- NOTE | 2023-04-16 19:40 | P.PN ---
Subjective Progress Note Date: 04/16/23 Patient remains in intensive care unit as a medical floor hold. Currently on room air. Has minimal cough with no sputum production. Overall feeling better. Continues on IV ceftriaxone. Continues on IV lasix Q12h. On eliquis. Heart rate is now controlled in the 70s and patient has been taken off the cardizem gtt. Echocardiogram back showing EF 50-55% with mild MR and left atrial enlargement. Hemoglobin stable 9.8, sodium 134, potassium 3.3., BUN 50, creatinine 1.31. Procalcitonin 11.10. BC showing corynebacterium species which likely is contamination. Review of Systems Constitutional: Denied any fatigue denied any fever. Cardio vascular: denied any chest pain, palpitations Gastrointestinal: denied any nausea, vomiting, diarrhea Pulmonary: Denied any shortness of breath cough Neurologic denied any new focal deficits All inpatient medications were reviewed and appropriate changes in these medi cations as dictated in the interval history and assessment and plan. PHYSICAL EXAMINATION: GENERAL: The patient is alert and oriented x3, not in any acute distress. Well developed, well nourished. HEENT: Pupils are round and equally reacting to light. EOMI. No scleral icterus. No conjunctival pallor. Normocephalic, atraumatic. No pharyngeal erythema. No thyromegaly. CARDIOVASCULAR: S1 and S2 present. No murmurs, rubs, or gallops. PULMONARY: Chest is clear to auscultation, no wheezing or crackles. ABDOMEN: Soft, nontender, nondistended, normoactive bowel sounds. No palpable organomegaly. MUSCULOSKELETAL: No joint swelling or deformity. EXTREMITIES: No cyanosis, clubbing, or pedal edema. NEUROLOGICAL: Gross neurological examination did not reveal any focal deficits. SKIN: No rashes. Assessment Acute hypoxic respiratory failure Altered mental status secondary to acute metabolic encephalopathy from infection, resolved Pneumonia and sepsis likely community acquired present on admission with elevated procalcitonin level Chronic bronchial asthma A. fib with RVR Acute on chronic CHF with reduced EF Hypokalemia Lactic acidosis Elevated LFTs likely from volume overload Nonischemic cardiomyopathy Hypertension Hyperlipidemia Valvular heart disease Hx of inclusion body myositis follows with hematology GI prophylaxis DVT prophylaxis Full Code Plan Patient continues on room air Continue on IV ceftriaxone, complete course of oral azithromycin, procalcitonin remains elevated at 11.10 with upwards trend. ID following. Continue albuterol as needed IV cardizem has been discontinued, patient has been started on Toprol XL, heart rate remains controlled at this time Remains on IV lasix Q12 hr with strict intake and output Recommend to wrap lower extremities and elevate while sitting. Anticoagulated with eliquis Pepcid has been added for GI prophylaxis Potassium has been supplemented and recommend to repeat labs in the AM PT/OT consultation for discharge planning Pt remains in ICU as a stepdown hold. The impression and plan of care has been dictated by Gudelia Green, Nurse Practitioner as directed. Dr. Irwin MD I have performed a history and physical examination and medical decision making of this patient, discussed the same with the dictator, and agree with the dictators assessment and plan as written, documented as a scribe. Based on total visit time, I have performed more than 50% of this visit. Objective - Vital Signs Vital signs: Vital Signs Temp 98.0 F 04/16/23 11:02 Pulse 78 04/16/23 11:02 Resp 18 04/16/23 11:02 BP 133/79 04/16/23 11:02 Pulse Ox 97 04/16/23 11:02 FiO2 Intake & Output 04/15/23 04/16/23 04/16/23 18:59 06:59 18:59 Intake Total 660 100 250 Output Total 1150 1400 Balance -490 -1300 250 Weight 83.1 kg 79 kg Intake: IV 300 100 20 Invasive Line 1 20 Sodium Chloride 0.9% 1, 250 100 000 ml @ 10 mls/hr IV . Q24H [facility] Rx#:[id number] cefTRIAXone 2 gm In 50 Sodium Chloride 0.9% 50 ml @ 100 mls/hr IVPB Q24HR [facility] Rx#:[id number] Intake, IV Titration 0 Amount Heparin Sod,Pork in 0.45% 0 NaCl 25,000 unit In 0.45 % NaCl 1 250ml.bag @ 12 UNITS/KG/HR 8.981 mls/hr IV .Q24H [facility] Rx#: [id number] Oral 360 230 Output: Urine 1150 1400 Other: Voiding Method External Catheter External Catheter External Catheter # Voids 1 3 # Bowel Movements 1 - Labs CBC & Chem 7: 04/16/23 03:07 04/16/23 03:07 Labs: Abnormal Lab Results - Last 24 Hours (Table) 04/15/23 04/16/23 04/16/23 Range/Units 05:03 03:07 03:07 RBC 2.81 L (3.80-5.40) m/uL Hgb 9.8 L (11.4-16.0) gm/dL Hct 29.5 L (34.0-46.0) % MCV 104.9 H (80.0-100.0) fL Plt Count 100 L (150-450) k/uL Lymphocytes # (Manual) 0.86 L (1.0-4.8) k/uL Eosinophils # (Manual) 0.94 H (0-0.7) k/uL Sodium 134 L (137-145) mmol/L Potassium 3.3 L (3.5-5.1) mmol/L BUN 50 H (7-17) mg/dL Creatinine 1.31 H (0.52-1.04) mg/dL Calcium 8.0 L (8.4-10.2) mg/dL Procalcitonin 11.10 H (0.02-0.09) ng/mL Microbiology - Last 24 Hours (Table) 04/14/23 10:24 Blood Culture - Preliminary Blood 04/13/23 08:30 Blood Culture Gram Stain - Preliminary Blood Blood Culture - Preliminary Corynebacterium species Assessment and Plan Time with Patient: Less than 30
[2023-04-16] MEDS: FERROUS SULFATE 325 MG TAB PO SCH (20:08)
[2023-04-16] MEDS: MAGNESIUM OXIDE 400 MG TAB PO SCH (20:08)
[2023-04-16] MEDS: METOPROLOL SUCCINATE (ER) 25 MG TAB.ER.24H PO SCH (20:08)
[2023-04-17 05:13] LABS: African American GFR (CKD) 56 (>60 ml/min/1.73 sqM); Anion Gap 4 mmol/L; Blood Urea Nitrogen 41 mg/dL (7-17); Calcium 8.3 mg/dL (8.4-10.2); Carbon Dioxide 27 mmol/L (22-30); Chloride 104 mmol/L (98-107); Glucose 81 mg/dL (74-99); Non-African American GFR(CKD) 48 (>60 ml/min/1.73 sqM); Potassium 3.6 mmol/L (3.5-5.1); Sodium 135 mmol/L (137-145)
[2023-04-17] MEDS: MIDODRINE 5 MG TAB PO SCH ×2 (05:44→13:27)
[2023-04-17] MEDS ORDERED: POTASSIUM CHLORIDE ER 20 MEQ TAB.ER PO SCH (08:00)
[2023-04-17] MEDS: VIT A,C & E-LUTEIN-MINERALS 1 EACH TAB PO SCH (08:26)
[2023-04-17] MEDS: CYANOCOBALAMIN 500 MCG TAB PO SCH (08:27)
[2023-04-17] MEDS: APIXABAN 2.5 MG TABLET PO SCH (08:27)
[2023-04-17] MEDS: FUROSEMIDE 10 MG/ML 2 ML VIAL IV SCH (08:27)
[2023-04-17] MEDS: CHOLECALCIFEROL 125 MCG (5000 IU) TABLET PO SCH (08:27)
[2023-04-17] MEDS: FOLIC ACID 1 MG TAB PO SCH (08:27)
[2023-04-17] MEDS: METOPROLOL SUCCINATE (ER) 50 MG TAB.ER.24H PO SCH (08:27)
[2023-04-17] MEDS ORDERED: FAMOTIDINE 20 MG TAB PO SCH (09:00)
--- NOTE | 2023-04-17 11:08 | P.PN ---
Subjective Progress Note Date: 04/17/23 Principal diagnosis: Fever, pneumonia. Acute febrile illness, possible pneumonia This is a pleasant 78-year-old female patient with a known history of mild intermittent chronic bronchial asthma, congestive heart failure, hypertension, inclusion body myositis site is, lifelong nonsmoker. She presented here to the emergency room early this morning with complaints of fever and generalized weakness. States her temperature was up to 105 at home. She had some shortness of breath and chills as well. Chest x-ray reveals cardiomegaly with pulmonary vascular congestion and tiny effusions. There is a patchy density in the right suprahilar region may reflect developing infiltrate. White count 10.6. Hemoglobin 10.5. Platelets 86,000. Sodium 135. Potassium 4.2. Bicarb 23. BUN 40. Creatinine 1.12. Lactic acid 2.2. AST 102. ALT 39. Alk phos 184. ProBNP 10,800. She is seen today in consultation in the emergency department. She is currently sitting up on a stretcher. She is awake and alert in no acute distress. She is maintaining good O2 saturations in the high 90s on 2 L/m per nasal cannula. She has a T-max of 101.1. She was initiated on ceftriaxone and azithromycin. Normal saline at 20 ML's per hour. Was given Lasix 20 mg IVP 1. We did order a sed rate which is 65, C-reactive protein which is 2.7 and a calcitonin which is 6.06. Patient was very on 04/14/2023, patient is in the ICU but she is actually a 3 S. overflow. I saw this patient yesterday in the ER, and she was admitted with acute febrile illness, elevated pro calcitonin level, however she had no symptoms clinically to suggest pneumonia chest x-ray showed vague left lower lobe atelectasis and right perihilar atelectasis, patient had no cough, no shortness of breath, no chest pain, but she did have a fever. Patient was admitted placed on antibiotics empirically, BNP level was elevated at 10,000, and the patient is empirically on Rocephin and Zithromax. Chest x-ray itself d id not point to congestive heart failure, overnight the patient developed SVT, she required Lopressor IV push, and she was placed on Cardizem at 10 mg per hour. Patient is doing much per her today, heart rate is down to 96, and she is to be seen by cardiology regarding her SVT. This is a relatively new onset. Patient also had a T-max of 99.8 last night. Presently afebrile. Blood pressure is 120/73. Mean arterial pressure 87. When the patient had SVT left, she did receive adenosine 2. He also received Lopressor, and now she is on Cardizem drip. Blood cultures are showing gram-positive bacilli which is clearly a skin contaminant. More blood cultures are pending. WBC count today is 12.8 hemoglobin 11.3. ABG this morning on 35% showed a pO2 of 109 pCO2 38 pH of 7.37. Basic metabolic profile is relatively unremarkable except for creatinine jumping up to 1.59 from 1.1 to yesterday lactic acid this morning is 2.0. Progress note dated 04/15/2023. 78-year-old female seen today in room 252. She was admitted to the hospital on April 13. She came to the intensive care unit on April 15, with supraventricular tachycardia. She is resting comfortably today in room 252. Th e patient's on room air. The patient's getting saline at 20 mL an hour. She continues on Rocephin and azithromycin. Initially, she had a fever, although the source of infection is unclear. White count is 13.1, hemoglobin 9.3, hematocrit 28.2, and platelet count 87,000. PT is 14.7 with an INR 1.4. PTT is 131. Sodium 130, potassium 3.8, chlorides 101, CO2 22, BUN 57, and creatinine 1.61. Troponins are 0.230, 0.193, and 0.147. Chest x-rays consistent with fluid overload. Progress note dated 04/16/2023. 78-year-old female seen in room 252, intensive care unit. She was initially admitted to the hospital, on April 13, and came to the intensive care unit on April 15, with supraventricular tachycardia. She was also thought to have an infection, although the source of infection is unclear. She continues on Rocephin. Her pro-calcitonin level was 11.1. She's getting room air with saturations of 97%. She's getting saline at 10 mL an hour. White count 7.8, hemoglobin 9.8, hematocrit 29.5, and platelet count 100,000. PTT was 130.5, yesterday. Sodium 134, potassium 3.3, chlorides 104, CO2 24, BUN 50, creatinine 1.31. Blood cultures are positive for Corynebacterium species, likely a contaminant. Chest x-ray from yesterday was reviewed. Progress note dated 04/17/2023. 78-year-old female seen in room 252, intensive care unit. The patient appears to be doing relatively well. She is on room air. She's not receiving any IV fluids. She initially came to the hospital on April 13, and to the intensive care unit on the , with SVT. The patient is being treated for an infection, although the source of infection is not clear. The patient's pro-calcitonin l evel, was 11.1. She feels much improved, and is ready to be transferred out of the intensive care unit. Sodium 135, potassium 3.6, chlorides 104, CO2 27, BUN 41, and creatinine 1.09. Blood cultures are positive for Corynebacterium striatum on April 13. Antibiotics have been discontinued. Objective - Vital Signs Vital signs: Vital Signs Temp 98.4 F 04/17/23 08:00 Pulse 79 04/17/23 08:00 Resp 23 04/17/23 08:00 BP 138/93 04/17/23 08:00 Pulse Ox 96 04/17/23 08:00 FiO2 Intake & Output 04/16/23 04/17/23 04/17/23 18:59 06:59 18:59 Intake Total 1370 20 50 Output Total 800 1400 300 Balance 570 -1380 -250 Weight 79 kg 82.7 kg Intake: IV 80 20 50 Invasive Line 1 30 20 cefTRIAXone 2 gm In 50 50 Sodium Chloride 0.9% 50 ml @ 100 mls/hr IVPB Q24HR [facility] Rx#:[id number] Oral 1290 Output: Urine 800 1400 300 Other: Voiding Method External Catheter External Catheter External Catheter # Voids 1 # Bowel Movements 1 1 - Exam No acute distress, oriented 3. No respiratory distress. Currently on room air. HEENT examination is grossly unremarkable. Mucous membranes are moist. No oral lesions. Neck supple. Full range of motion. No adenopathy thyromegaly or neck vein distention. Cardiovascular examination reveals regular rhythm rate. S1-S2 normal. No S3 or S4. No discernible murmur noted. Heart rate 72 bpm. Lungs reveal scattered mild rhonchi. No crackles or wheezes. Breath sounds equal. Room air saturation is 96 %. Abdomen soft bowel sounds are heard. No masses or tenderness. Extremities are intact. No cyanosis clubbing or edema. Skin is without rash or lesion. Neurologic examination is brief but nonfocal. - Labs CBC & Chem 7: 04/16/23 03:07 04/17/23 03:44 Labs: Abnormal Lab Results - Last 24 Hours (Table) 04/17/23 Range/Units 03:44 Sodium 135 L (137-145) mmol/L BUN 41 H (7-17) mg/dL Creatinine 1.09 H (0.52-1.04) mg/dL Calcium 8.3 L (8.4-10.2) mg/dL Microbiology - Last 24 Hours (Table) 04/14/23 10:24 Blood Culture - Preliminary Blood 04/13/23 08:30 Blood Culture Gram Stain - Final Blood Blood Culture - Final Corynebacterium striatum Assessment and Plan Assessment: Acute febrile illness, possibly secondary to pneumonia. Acute hypoxemic respiratory failure, likely multifactorial, in part related to CHF/interstitial edema, atelectasis, and possible pneumonia. Atrial fibrillation with rapid ventricular response. Wide-complex tachycardia. Acute on chronic systolic CHF. Elevated liver enzymes, likely secondary to CHF. Benign essential hypertension. Acute kidney injury. Inclusion body myositis. Plan: Plan dated 04/15/2023. The patient was on medication for atrial fibrillation, but it has been discontinued. The patient is no longer on IV heparin. Her last PTT was greater than 1:30. The patient continues on azithromycin and Rocephin, for possible infection. In addition, the patient continues on saline at 20 mL an hour. Labs, x-rays, and medications are all reviewed. The patient's chest x-ray is consistent with mild fluid overload/CHF. No clearcut source of infection on this patient, despite fever, and an elevated pro calcitonin level. We will continue to follow make recommendations along the way. Prognosis is guarded. Plan dated 04/16/2023. The patient is seen today in room 252. She's currently on room air. She's getting saline at 10 mL an hour. She continues on IV Rocephin. The patient's pro-calcitonin level was 11 currently, we are treating the patient for an infection, although the source of the infection is not clear. This could relate to some pneumonia. Anyway, her heart rhythm is much more stable. Clinically she is feeling much better. She is afebrile. Additional recommendations and suggestions are forthcoming. We will continue to follow the patient, and make recommendations along the way. Prognosis is guarded. Plan dated 04/17/2023. The patient is stable be transferred out of the intensive care unit. She should go to a monitored bed, given her previous episode of SVT. The patient's antibiotics have been discontinued. She is on room air. She's not receiving any IV fluids. Clinically, she's doing much better. Labs, x-rays, and medications are reviewed. We will continue to follow the patient, and make recommendations along the way. Prognosis is guarded. Time with Patient: Less than 30
--- NOTE | 2023-04-17 13:14 | P.PN ---
Subjective Progress Note Date: 04/17/23 The patient is a pleasant 78-year-old female patient who is known to our service from before with history of nonischemic cardiomyopathy and left bundle branch block as well as hypertension and dyslipidemia and heart failure. The patient presented to the hospital complaining of shortness of breath associated with fever and cough with no sputum production. No chest pain or chest discomfort. She developed mild bilateral lower extremity is edema. No dizziness or lightheadedness and no feeling of heart racing or fluttering and no presyncope or syncope and no chest pain or chest discomfort. Her temperature was elevated around 100.6. CBC and BNP came in to be unremarkable She underwent further work up including a chest x-ray and that showed pulmonary vascular congestion. Her NT proBNP came in to be elevated around 10,000. She was also slightly hypoxic when she presented to the emergency department appeared she is known to have asthma and has been under control according to her. She was started on antibiotic with ceftriaxone and azithromycin and we consulted to be see the patient for heart failure. When she was seen and evaluated she she doesn't seems to be in any overt congestive heart failure at this point. She underwent an echo earlier this year and that revealed preserved LV systolic function was mild to moderate valvular abnormalities. The physical examination is remarkable for regular rhythm with a systolic murmur at the right and left upper sternal border with diminished breathing sounds bilaterally and mild bilateral lower extremities edema. 04/14/2023 The patient was seen and evaluated this morning. She was transferred to the intensive care and yesterday after she developed an episode of tachycardia to me seems to be in atrial fibrillation versus atrial flutter with RVR and she was converted on Cardizem IV. Currently she is in sinus mechanism with LBBB. She is in mild failure. She is experiencing shortness of breath and she is hypoxic and also she does have bilateral lower extremity is edema. Currently she is on Lasix orally which I'm going to stop and start patient on Lasix IV with continued monitoring the kidney function and electrolytes. Meanwhile she was started on heparin IV by the internal medicine team. I am going also to obtain serial cardiac enzymes because she has been experiencing chest discomfort. Even though she underwent a heart catheterization in 2020 and that showed normal coronaries. The examination is remarkable for bilateral lower extremity edema and diminished breathing sounds bilaterally and irregular rhythm with a systolic murmur at the left and right upper sternal border 04/16/23 Patient is doing well from cardiac vessel standpoint today. She is currently in sinus rhythm. She is an anticoagulate with Eliquis 2.5 mg twice a day without any bleeding complications. She is tolerating IV Lasix. 04/17/2023 Patient is doing well from cardiac vessel standpoint. She is currently in normal sinus rhythm. She is on anti-coagulation with Eliquis of 2.5 mg twice a day. She has not had any bleeding complications. She is tolerating IV diuretics. She appears slightly volume overloaded and seems appropriate to t ransition to by mouth diuretics. We will discontinue IV Lasix. Start Bumex 1mg by mouth daily from tomorrow. Okay to be discharged from cardiac vessel standpoint. Assessment Acute hypoxic respiratory failure Febrile illness of unclear etiology at this point. Rule out pneumonia History of cardiomyopathy History of heart failure Left bundle-branch block Paroxysmal atrial fibrillation, currently normal sinus rhythm Plan Continue Eliquis, metoprolol. Discontinue IV Lasix. Transition to Bumex 1 mg by mouth daily to go home with. Follow up outpatient with Dr. Gonzalez in next 1-2 weeks Patient is scheduled to be discharged from cardiac vessel standpoint. Objective - Vital Signs Vital signs: Vital Signs Temp 98.4 F 04/17/23 08:00 Pulse 79 04/17/23 08:00 Resp 23 04/17/23 08:00 BP 138/93 04/17/23 08:00 Pulse Ox 96 04/17/23 08:00 FiO2 Intake & Output 04/16/23 04/17/23 04/17/23 18:59 06:59 18:59 Intake Total 1370 20 50 Output Total 800 1400 300 Balance 570 -1380 -250 Weight 79 kg 82.7 kg Intake: IV 80 20 50 Invasive Line 1 30 20 cefTRIAXone 2 gm In 50 50 Sodium Chloride 0.9% 50 ml @ 100 mls/hr IVPB Q24HR [facility] Rx#:[id number] Oral 1290 Output: Urine 800 1400 300 Other: Voiding Method External Catheter External Catheter External Catheter # Voids 1 # Bowel Movements 1 1 - Labs CBC & Chem 7: 04/16/23 03:07 04/17/23 03:44 Labs: Abnormal Lab Results - Last 24 Hours (Table) 04/17/23 Range/Units 03:44 Sodium 135 L (137-145) mmol/L BUN 41 H (7-17) mg/dL Creatinine 1.09 H (0.52-1.04) mg/dL Calcium 8.3 L (8.4-10.2) mg/dL Microbiology - Last 24 Hours (Table) 04/14/23 10:24 Blood Culture - Preliminary Blood 04/13/23 08:30 Blood Culture Gram Stain - Final Blood Blood Culture - Final Corynebacterium striatum
[2023-04-17 15:15] VITALS: BP 133/80; PULSE 89; RESP 17; TEMP 98.2
--- NOTE | 2023-04-17 17:57 | P.PN ---
Subjective Progress Note Date: 04/17/23 Principal diagnosis: Reason for follow-up is pneumonia Patient is a 78-year-old female with a past medical history significant for hypertension osteoarthritis heart failure and asthma patient presenting to the hospital for evaluation of fever and confusion and generalized weakness patient did have a x-rays of the patchy density right suprahilar region concerning for pneumonia On today's evaluation that is 04/17/2023, the patient remains to be febrile, the patient is breathing comfortably on room air. The patient denies having any shortness of breath no chest pain or cough, patient denies Abdominal pain, no nausea/vomiting or diarrhea Patient did have white count has normalized to 7.8 as of as of 04/16/2023, procalcitonin is 11.10, blood culture with corynebacterium species, blood cultures repeated 04/14/2023 so far negative Objective - Vital Signs Vital signs: Vital Signs Temp 98.4 F 04/17/23 08:00 Pulse 79 04/17/23 08:00 Resp 23 04/17/23 08:00 BP 138/93 04/17/23 08:00 Pulse Ox 96 04/17/23 08:00 FiO2 Intake & Output 04/16/23 04/17/23 04/17/23 18:59 06:59 18:59 Intake Total 1370 20 50 Output Total 800 1400 300 Balance 570 -1380 -250 Weight 79 kg 82.7 kg Intake: IV 80 20 50 Invasive Line 1 30 20 cefTRIAXone 2 gm In 50 50 Sodium Chloride 0.9% 50 ml @ 100 mls/hr IVPB Q24HR [facility] Rx#:[id number] Oral 1290 Output: Urine 800 1400 300 Other: Voiding Method External Catheter External Catheter External Catheter # Voids 1 # Bowel Movements 1 1 - Exam GENERAL DESCRIPTION: An elderly female up in the chair in no distress RESPIRATORY SYSTEM: Unlabored breathing , decreased breath sound at the base HEART: S1 S2 regular rate and rhythm , ABDOMEN: Soft , no tenderness EXTREMITIES: No edema feet - Labs CBC & Chem 7: 04/16/23 03:07 04/17/23 03:44 Labs: Abnormal Lab Results - Last 24 Hours (Table) 04/17/23 Range/Units 03:44 Sodium 135 L (137-145) mmol/L BUN 41 H (7-17) mg/dL Creatinine 1.09 H (0.52-1.04) mg/dL Calcium 8.3 L (8.4-10.2) mg/dL Microbiology - Last 24 Hours (Table) 04/14/23 10:24 Blood Culture - Preliminary Blood 04/13/23 08:30 Blood Culture Gram Stain - Final Blood Blood Culture - Final Corynebacterium striatum Assessment and Plan (1) Allergy to penicillin Status: Acute Code(s): Z88.0 - ALLERGY STATUS TO PENICILLIN SNOMED Code(s): 70052796 (2) Pneumonia Status: Acute Code(s): J18.9 - PNEUMONIA, UNSPECIFIED ORGANISM SNOMED Code(s): 807992764 (3) Positive blood culture Status: Acute Code(s): R78.81 - BACTEREMIA SNOMED Code(s): 995772879 Plan: 1patient presents to hospital with sepsis in this patient who did have a fever tachycardia elevated white count source was likely right-sided pneumonia more likely community-acquired, clinical suspicion is low for gram-negative or aspiration pneumonia 2-patient with a positive blood culture with corynebacterium species likely contamination, repeat blood cultures 04/14/2020 so far negative, patient did have elevated procalcitonin of 11.10 3-patient has shown clinical improvement and we'll finish therapy with a short course of oral Ceftin discussed with the admitting team,questions concerned were answered Dictation was produced using [employer] dictation software. please excuse any grammatical, word or spelling errors. Time with Patient: Less than 30
--- NOTE | 2023-04-19 16:41 | P.DS ---
Providers Date of admission: 04/13/23 08:05 Attending physician: Mary Jo Alonso MD Consults: 04/13/23 07:57 Consult Physician Routine Consulting Provider: Ricki Hood Consult Reason/Comments: Pneumonia. Your patient Do you want consulting provider notified?: Yes 04/13/23 09:42 Consult Physician Routine Consulting Provider: Rory Winters Consult Reason/Comments: Acute CHF Do you want consulting provider notified?: Yes 04/13/23 13:20 Consult Physician Routine Consulting Provider: Rai Monroy Consult Reason/Comments: Sepsis, pneumonia Do you want consulting provider notified?: Yes Primary care physician: Ricki Hood Hospital Course: Final Diagnosis Acute hypoxic respiratory failure Altered mental status secondary to acute metabolic encephalopathy from infection, resolved Pneumonia and sepsis likely community acquired present on admission with elevated procalcitonin level Chronic bronchial asthma A. fib with RVR Acute on chronic CHF with reduced EF Hypokalemia Lactic acidosis Elevated LFTs likely from volume overload Nonischemic cardiomyopathy Hypertension Hyperlipidemia Valvular heart disease Hx of inclusion body myositis follows with hematology GI prophylaxis DVT prophylaxis Full Code Discharge Disposition Patient is stable for discharge home. Has been monitored in the ICU as a medical hold. Patient to discharge on oral antibiotics with ceftin twice a day for the next 2 days, follow up with dr. Monroy. Continue with incentive spirometer 10 x an hour while awake. Diuretics have been changed to bumex 1 mg daily. Continue to wrap lower extremities and elevate while sitting. Eliquis has been prescribed 2.5 mg twice a day this is a blood thinner for the atrial fibrillation. Repeat labs in 2 to 3 days. Patient to follow up with ui architect Dr. Gonzalez, Pulmonary Dr. Hood and Dr. Monroy. Hospital Course Patient is a 78-year-old lady with past medical history significant for asthma, congestive heart failure, spinal stenosis, hypertension, hyperlipidemia, and chronic kidney disease who presented to the hospital for fever and confusion. Patient symptoms started 24 hours ago before that patient was perfectly normal, noticed that patient was getting more confused, was also having fevers at home. There was no complain of any chills. Patient was getting short of breath on exertion. Denies any chest pain. Patient was having productive co ugh. No complain of nausea, vomiting abdominal pain. No swelling of feet. Denied any palpitation. Patient was cleaning and generalized weakness. Because of the symptoms, patient was brought to the ER. Chest x-ray done in the ER showed continued pulmonary venous congestion with cardiomegaly and tiny effusions, increased patchy density right suprahilar region may reflect clubbing infiltrate. Patient had mildly elevated lactic acid at 2.2. Admitted to the hospital under medicine with consult placed to pulmonary. Started on empiric antibiotics with IV ceftriaxone and oral aizthromycin. Did have an elevated procalcitonin level up to 11.10. Patient had elevated heart rate found to be in A.fib RVR requiring IV cardizem and was moved to the ICU. Patient was also treated with IV lasix. Was evaluated by ui architect as well and infectious disease for the pneumonia. Heart rate is now controlled in the 70s and patient has been taken off the cardizem gtt. Echocardiogram back showing EF 50-55% with mild MR and left atrial enlargement. Patient has improved and transitioned to oral medications. No chest pain no shortness of breath. Does have some lower extremity edema, has improved currently JACKIE wrapped for compression. Her lungs are clear. Heart rate controlled. White count normalized to 7.8, Sodium 135, BUN 41, creatinine 1.09. Patient will be discharged home. Please see medication reconciliation for a list of current medications. Thank you for allowing us to participate in the care of this patient. The impression and plan of care has been dictated by Gudelia Green, Nurse Practitioner as directed. Dr. Irwin MD I have performed a history and physical examination and medical decision making of this patient, discussed the same with the dictator, and agree with the dictators assessment and plan as written, documented as a scribe. Based on total visit time, I have performed more than 50% of this visit. Patient Condition at Discharge: Fair Plan - Discharge Summary New Discharge Prescriptions: New Apixaban [Eliquis] 2.5 mg PO BID #60 tab Famotidine [Pepcid] 20 mg PO DAILY #30 tab Metoprolol Succinate (ER) [Toprol XL] 50 mg PO DAILY #30 tab Metoprolol Succinate (ER) [Toprol XL] 25 mg PO HS #30 tab cefUROXime axetiL [Ceftin] 500 mg PO BID 2 Days #4 tab Bumetanide [Bumex] 1 mg PO DAILY #30 tablet Continue Ferrous Sulfate [Iron (65 MG Elemental)] 325 mg PO HS Vit C/E/Zn/Coppr/Lutein/Zeaxan [Preservision Areds 2 Softgel] 1 cap PO BID Cholecalciferol (Vitamin D3) [Vitamin D3 (125 MCG = 5,000 IU)] 125 mcg PO DAILY Magnesium Oxide [Mag-Ox] 400 mg PO HS Cyanocobalamin (Vitamin B-12) [Vitamin B-12] 1,000 mcg PO DAILY Folic Acid 0.4 mg PO DAILY Discontinued Metoprolol Succinate (ER) [Toprol XL] 50 mg PO HS Furosemide [Lasix] 40 mg PO DAILY Discharge Medication List Cyanocobalamin (Vitamin B-12) [Vitamin B-12] 1,000 mcg PO DAILY 12/30/20 [History] Ferrous Sulfate [Iron (65 MG Elemental)] 325 mg PO HS 12/30/20 [History] Vit C/E/Zn/Coppr/Lutein/Zeaxan [Preservision Areds 2 Softgel] 1 cap PO BID 12/30/20 [History] Cholecalciferol (Vitamin D3) [Vitamin D3 (125 MCG = 5,000 IU)] 125 mcg PO DAILY 04/25/21 [History] Magnesium Oxide [Mag-Ox] 400 mg PO HS 02/04/23 [History] Folic Acid 0.4 mg PO DAILY 04/13/23 [History] Apixaban [Eliquis] 2.5 mg PO BID #60 tab 04/17/23 [Rx] Bumetanide [Bumex] 1 mg PO DAILY #30 tablet 04/17/23 [Rx] Famotidine [Pepcid] 20 mg PO DAILY #30 tab 04/17/23 [Rx] Metoprolol Succinate (ER) [Toprol XL] 25 mg PO HS #30 tab 04/17/23 [Rx] Metoprolol Succinate (ER) [Toprol XL] 50 mg PO DAILY #30 tab 04/17/23 [Rx] cefUROXime axetiL [Ceftin] 500 mg PO BID 2 Days #4 tab 04/17/23 [Rx] Follow up Appointment(s)/Referral(s): Pérez Gonzalez MD [STAFF PHYSICIAN] - 04/22/23 2:15 pm ([facility] Ricki Hood DO [Primary Care Provider] - 04/22/23 9:30 am Rai Monroy MD [STAFF PHYSICIAN] - 04/24/23 3:45 pm Ambulatory/Diagnostic Orders: Basic Metabolic Panel [LAB.AMB] Location: None Selected Complete Blood Count w/diff [LAB.AMB] Time Frame: 3 Days, Location: None Selected Patient Instructions/Handouts: A-fib (Atrial Fibrillation) (DC), Pneumonia (DC) Activity/Diet/Wound Care/Special Instructions: Continue to wrap lower extremities and elevate while sitting. Diuretics have been changed to bumex 1 mg daily Follow up with your ui architect Continue oral antibiotics with ceftin twice a day for the next 2 days, follow up with dr. Monroy Continue with incentive spirometer 10 x an hour while awake. Repeat labs in 2 to 3 days. Eliquis has been prescribed 2.5 mg twice a day this is a blood thinner for the atrial fibrillation. Discharge Disposition: HOME SELF-CARE
== END 2023-04-17 15:41 | disposition home or self-care (01) | DRG 871 ==
LOC: EC 04:35 → 4SSUR 08:05 → 2SICU 04-14 08:46
PROVIDERS: ADMIT Internal Medicine; ATTEND Internal Medicine
DX: A41.9 Sepsis, unspecified organism (principal); G93.41 Metabolic encephalopathy; I50.23 Acute on chronic systolic (congestive) heart failure; J18.9 Pneumonia, unspecified organism; J96.01 Acute respiratory failure with hypoxia; I42.8 Other cardiomyopathies; E87.20 Acidosis, unspecified; I13.0 Hypertensive heart and chronic kidney disease with heart failure and stage 1 through stage 4 chronic kidney disease, or unspecified chronic kidney disease; I47.10 Supraventricular tachycardia, unspecified; J98.11 Atelectasis; N17.9 Acute kidney failure, unspecified; D75.9 Disease of blood and blood-forming organs, unspecified; J45.20 Mild intermittent asthma, uncomplicated; N18.9 Chronic kidney disease, unspecified; G72.41 Inclusion body myositis [IBM]; E87.6 Hypokalemia; E78.5 Hyperlipidemia, unspecified; I44.7 Left bundle-branch block, unspecified; I48.0 Paroxysmal atrial fibrillation; Z11.52 Encounter for screening for COVID-19; Z79.01 Long term (current) use of anticoagulants; Z79.899 Other long term (current) drug therapy; Z80.6 Family history of leukemia; Z88.0 Allergy status to penicillin; Z28.311 Partially vaccinated for COVID-19; Z28.21 Immunization not carried out because of patient refusal; Z88.8 Allergy status to other drugs, medicaments and biological substances; M19.90 Unspecified osteoarthritis, unspecified site
CPT/HCPCS: 36415; 36600; 71045; 71046; 76700; 80048; 80053; 81003; 82805; 83605; 83735; 83880; 84100; 84145; 84484; 85025; 85610; 85652; 85730; 86140; 87040; 87449; 87636; 93005; 93306; 94640; 96365; 99285

== ENCOUNTER → 2023-04-19 | Outpatient (CLI) | payer MEDICARE ==
[2023-04-19 19:04] LABS: Basophils # (A) 0.08 X 10*3/uL (0.00-0.10); Eosinophils # (A) 1.64 X 10*3/uL (0.04-0.35); HCT 32.3 % (37.2-46.3); HGB 10.3 g/dL (12.0-15.0); Lymphocytes # (A) 1.97 X 10*3/uL (0.90-5.00); Lymphocytes % (A) 24.1 %; MCH 33.3 pg (27.0-32.0); MCHC 31.9 g/dL (32.0-37.0); MCV 104.5 FL (80.0-97.0); Mean Platelet Volume 10.7 FL (9.5-12.2); Monocytes # (A) 1.14 X 10*3/uL (0.20-1.00); Monocytes % (A) 13.9 %; NRBC Per 100 WBC 0.02 X 10*3/uL (0.00-0.01); Neutrophils # (A) 3.11 X 10*3/uL (1.80-7.70); Neutrophils % (A) 38.1 %; Platelet Count 135 X 10*3/uL (140-440); RBC 3.09 X 10*6/uL (4.10-5.20); RDW 15.2 % (11.5-14.5); WBC 8.18 X 10*3/uL (4.50-10.00)
== END | disposition home or self-care (01) ==
LOC: LABWHC1 12:02
PROVIDERS: ATTEND Internal Medicine Critical Care Medicine
DX: I48.91 Unspecified atrial fibrillation (principal); J18.9 Pneumonia, unspecified organism
CPT/HCPCS: 36415; 85025

== ENCOUNTER → 2023-05-27 | Outpatient (CLI) | payer MEDICARE ==
[2023-05-28 02:01] LABS: MCH 34.1 pg (27.0-32.0); MCHC 32.3 g/dL (32.0-37.0); MCV 105.8 FL (80.0-97.0); Mean Platelet Volume 11.3 FL (9.5-12.2); NRBC Per 100 WBC 0 X 10*3/uL (0.00-0.01); Platelet Count 101 X 10*3/uL (140-440); RBC 2.93 X 10*6/uL (4.10-5.20); RDW 15.3 % (11.5-14.5); WBC 5.16 X 10*3/uL (4.50-10.00)
[2023-05-28 03:37] LABS: BUN/Creat Ratio 29.47 Ratio (12.00-20.00); Blood Urea Nitrogen 44.2 mg/dL (9.0-27.0); Calcium 8.8 mg/dL (8.7-10.3); Carbon Dioxide 24.3 mmol/L (21.6-31.8); Chloride 107 mmol/L (96-109); Glucose 124 mg/dL (70-110); Potassium 3.3 mmol/L (3.5-5.5); Sodium 142 mmol/L (135-145)
== END | disposition home or self-care (01) ==
LOC: LABWHC1 15:01
PROVIDERS: ATTEND Internal Medicine Interventional Cardiology
DX: N18.9 Chronic kidney disease, unspecified (principal)
CPT/HCPCS: 36415; 80048; 85027

== ENCOUNTER 2023-06-08 04:13 | Inpatient (IN) | payer MEDICARE ==
[~2023-06-08 04:13] MED LIST changes: -ACETAMINOPHEN TAB 500 MG TAB PO PRN; -BUPIVACAINE (PF) 0.25% 30 ML VIAL SQ ONE; -DEXAMETHASONE SOD PHOSPHATE 4 MG/ML 1 ML VIAL IV ONE; -DEXAMETHASONE SOD PHOSPHATE 4 MG/ML 1 ML VIAL IVP ONE; -HEPARIN SODIUM,PORCINE/PF 5,000 UNIT/0.5 ML SYRINGE SQ PRN; -HYDROmorphone 0.5 MG/0.5 ML SYRINGE IVP PRN; -LACTATED RINGERS 1,000 ML IV SCH; -LIDOCAINE 1% (10MG/ML) FOR IV START INTRADERMA PRN; -LIDOCAINE 1% INJ 10MG/ML (20 ML MDV) ONE; -MIDAZOLAM 2 MG/2 ML VIAL IV PRN; -NALOXONE 0.4 MG/ML 1 ML VIAL IV PRN; +NITROGLYCERIN SL TABS 0.4 MG TAB SUBLINGUAL STA; -ONDANSETRON 4 MG/2 ML VIAL IVP ONE; -PROPOFOL 10 MG/ML 20 ML VIAL IV ONE; -Pre Op ABX Message 1 EACH MISC MISCELLANE ONE; -SODIUM CHLORIDE 0.9% 50 ML with ceFAZolin 2,000 MG IV ONE; -ePHEDrine 50 MG/ML 1 ML VIAL ONE; -fentaNYL (PF) 50 MCG/ML 2 ML AMP ONE
--- NOTE | 2023-06-08 04:32 | ED ---
General Adult HPI - General Chief complaint: Shortness of Breath Stated complaint: RACHEL Time Seen by Provider: 06/08/23 04:27 Source: patient, EMS Mode of arrival: EMS - History of Present Illness Initial comments: Dictation was produced using [employer] dictation software. please excuse any grammatical, word or spelling errors. Chief Complaint: 78-year-old female with multiple, this presents to the ER for 1-2 days of shortness of breath History of Present Illness: Patient is an 78-year-old female she allegedly has history of asthma, COPD, heart failure. States that she's been having difficulty breathing for the last 24-48 hours. Patient also has been having fever. Last year she was admitted for similar issue. She had a echocardiogram with normal ejection fraction. She was seen by infectious disease along with pulmonology and cardiology patient has had no loss of jaundice The ROS documented in this emergency department record has been reviewed and confirmed by me. Those systems with pertinent positive or negative responses have been documented in the HPI. All other systems are other negative and/or noncontributory. - Related Data Home Medications Medication Instructions Recorded Confirmed Cyanocobalamin (Vitamin B-12) 1,000 mcg PO DAILY 12/30/20 04/13/23 [Vitamin B-12] Ferrous Sulfate [Iron (65 MG 325 mg PO HS 12/30/20 04/13/23 Elemental)] Vit C/E/Zn/Coppr/Lutein/Zeaxan 1 cap PO BID 12/30/20 04/13/23 [Preservision Areds 2 Softgel] Cholecalciferol (Vitamin D3) 125 mcg PO DAILY 04/25/21 04/13/23 [Vitamin D3 (125 MCG = 5,000 IU)] Magnesium Oxide [Mag-Ox] 400 mg PO HS 02/04/23 04/13/23 Folic Acid 0.4 mg PO DAILY 04/13/23 04/13/23 Previous Rx's Medication Instructions Recorded Apixaban [Eliquis] 2.5 mg PO BID #60 tab 04/17/23 Bumetanide [Bumex] 1 mg PO DAILY #30 tablet 04/17/23 Famotidine [Pepcid] 20 mg PO DAILY #30 tab 04/17/23 Metoprolol Succinate (ER) [Toprol 25 mg PO HS #30 tab 04/17/23 XL] Metoprolol Succinate (ER) [Toprol 50 mg PO DAILY #30 tab 04/17/23 XL] cefUROXime axetiL [Ceftin] 500 mg PO BID 2 Days #4 tab 04/17/23 Allergies Allergy/AdvReac Type Severity Reaction Status Date / Time omeprazole [From Prilosec] Allergy Unknown Rash/Hives, Verified 04/13/23 10:55 TONGUE SWELLLING omeprazole magnesium Allergy Unknown Rash/Hives, Verified 04/13/23 10:55 [From Prilosec] TONGUE SWELLLING Penicillins Allergy Unknown Rash/Hives/ Verified 04/13/23 10:55 Itching amlodipine Allergy fide pedal Verified 04/13/23 10:55 edema, loss voice carvedilol Allergy shortness Verified 04/13/23 10:55 of breath lisinopril Allergy Unknown Verified 04/13/23 10:55 Review of Systems ROS Statement: Those systems with pertinent positive or pertinent negative responses have been documented in the HPI. ROS Other: All systems not noted in ROS Statement are negative. 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 History of Any Multi-Drug Resistant Organisms: None Reported Past Surgical History: Heart Catheterization Additional Past Surgical History / Comment(s): EYE SURGERY DUE TO INJURY, EGD, COLONOSCOPY, BONE MARROW BIOPSY, cataracts Past Anesthesia/Blood Transfusion Reactions: No Reported Reaction Past Psychological History: No Psychological Hx Reported Smoking Status: Never smoker Past Alcohol Use History: Occasional Past Drug Use History: None Reported - Past Family History Sister(s) Family Medical History: Cancer Additional Family Medical History / Comment(s): LEUKEMIA- at age 42 Brother(s) Family Medical History: Cancer Additional Family Medical History / Comment(s): with unknown type CA at age 60s General Exam - General Exam Comments Initial Comments: PHYSICAL EXAM: General Impression: Alert and oriented x3, tachypnea, jaundice HEENT: Normocephalic atraumatic, extra-ocular movements intact, pupils equal and reactive to light bilaterally, mucous membranes moist. Cardiovascular: Heart regular rate and rhythm Chest: diffuse end inspiratory crackles Abdomen: abdomen soft, non-tender, non-distended, no organomegaly Musculoskeletal: Pulses present and equal in all extremities, no peripheral edema Motor: no focal deficits noted Neurological: CN II-XII grossly intact, no focal motor or sensory deficits noted Skin: Intact with no visualized rashes Psych: Normal affect and mood Course Vital Signs 06/08/23 06/08/23 06/08/23 04:17 05:23 05:53 Temperature 100.1 F H Pulse Rate 90 91 92 Respiratory 20 19 Rate Blood Pressure 145/79 143/72 O2 Sat by Pulse 93 L 100 98 Oximetry 06/08/23 06:23 Temperature 99.3 F Pulse Rate 90 Respiratory 20 Rate Blood Pressure 151/78 O2 Sat by Pulse 95 Oximetry Medical Decision Making - Medical Decision Making Was pt. sent in by a medical professional or institution (, PA, LEAD PRODUCER, urgent care, hospital, or senior living...) When possible be specific @ -No Did you speak to anyone other than the patient for history (EMS, parent, family, police, friend...)? What history was obtained from this source @ -No Did you review nursing and triage notes (agree or disagree)? Why? @ -I reviewed and agree with nursing and triage notes Were old charts reviewed (outside hosp., previous admission, EMS record, old EKG, old radiological studies, urgent care reports/EKG's, senior living records)? Report findings @ -Echocardiogram from last year was reviewed showing patient has normal ejection fraction Differential Diagnosis (chest pain, altered mental status, abdominal pain women, abdominal pain men, vaginal bleeding, musculoskeletal, weakness, fever, dyspnea, syncope, headache, dizziness, GI bleed, back pain, seizure, CVA, palpatations, mental health)? @ -Differential Dyspnea: Coronary syndrome, arrhythmia, tamponade, asthma, COPD, pulmonary embolism, pneumonia, pneumothorax, pulmonary effusion, anaphylaxis, diabetic ketoacidosis, flailed chest, pulmonary contusion, diaphragmatic rupture, anemia, neuromuscular, this is not meant to be an all-inclusive list. EKG interpreted by me (3pts min.). @ -87, sinus rhythm, AL interval 180, QRS 172, QTc 455. Blepharitis block EKG compared to EKG from 04/18/2023 showing similar findings X-rays interpreted by me (1pt min.). @ -Chest x-ray shows congestion in the bilateral lower lung ferguson CT interpreted by me (1pt min.). @ -Pending CT chest abdomen pelvis for her dyspnea, unclear cause of dyspnea and new-onset painless jaundice U/S interpreted by me (1pt. min.). @ -None done What testing was considered but not performed or refused? (CT, X-rays, U/S, labs)? Why? @ -None What meds were considered but not given or refused? Why? @ -None Did you discuss the management of the patient with other professionals (professionals i.e. , PA, LEAD PRODUCER, lab, RT, psych nurse, protective services social worker, line puller, teacher, head correction officer, pillowcase cleaner)? Give summary @ -No Was smoking cessation discussed for >3mins.? @ -No Was critical care preformed (if so, how long)? @ -Yes, 77 minutes Were there social determinants of health that impacted care today? How? (Homelessness, low income, unemployed, alcoholism, drug addiction, transportation, low edu. Level, literacy, decrease access to med. care, alf, rehab)? @ -No Was there de-escalation of care discussed even if they declined (Discuss DNR or withdrawal of care, Hospice)? DNR status @ -No What co-morbidities impacted this encounter? (DM, HTN, Smoking, COPD, CAD, Cancer, CVA, ARF, Chemo, Hep., AIDS, mental health diagnosis, sleep apnea, morbid obesity)? @ -None Was patient admitted / discharged? Hospital course, mention meds given and route, prescriptions, significant lab abnormalities, going to OR and other pertinent info. @ -78-year-old female brought to the emergency department for home for dyspnea. Vital signs upon arrival shows hypoxia with 100.1. Her evaluation obtained. The patient has elevated unconjugated bilirubin. Baseline troponin, elevated BNP elevated renal markers. Chest x-ray shows bilateral lower infiltrates. Given new onset jaundice shortness of breath is concern of liver disease. CT of the abdomen pelvis shows bilateral lower lobe infiltrates and effusion. His choledocholithiasis. Cholecystic fluid raising question acute cholecystitis. Rest of abdomen, films shows no acute processes. Patient started on antibiotics. Case is discussed with general surgery feels that patient's clinical presentation and Tylenol obvi ous. She is however amenable for admission to our hospital general surgery consult. Case discussed with hospitalist for admission. Patient reevaluated at bedside 8:00 AM on a be stable medical condition. She does not appear dyspneic. is likely secondary to pleural effusion secondary to process. Undiagnosed new problem with uncertain prognosis? @ -No Drug Therapy requiring intensive monitoring for toxicity (Heparin, Nitro, Insulin, Cardizem)? @ -No Were any procedures done? @ -No Diagnosis/symptom? Acute, or Chronic, or Acute on Chronic? Uncomplicated (with out systemic symptoms) or Complicated (systemic symptoms)? @ -Dyspnea Side effects of treatment? @ -No Exacerbation, Progression, or Severe Exacerbation? @ -No Poses a threat to life or bodily function? How? (Chest pain, USA, AL, pneumonia, PE, COPD, DKA, ARF, appy, cholecystitis, CVA, Diverticulitis, Homicidal, Suicidal, threat to staff... and all critical care pts) @ -yes - Lab Data Result diagrams: 06/08/23 04:18 06/08/23 04:18 Lab Results 06/08/23 06/08/23 06/08/23 Range/Units 04:18 04:18 04:18 WBC 10.9 H (3.8-10.6) k/uL RBC 3.20 L (3.80-5.40) m/uL Hgb 11.0 L (11.4-16.0) gm/dL Hct 33.3 L (34.0-46.0) % MCV 104.1 H (80.0-100.0) fL MCH 34.3 (25.0-35.0) pg MCHC 32.9 (31.0-37.0) g/dL RDW 14.7 (11.5-15.5) % Plt Count 86 L (150-450) k/uL MPV 8.7 Neutrophils % 82 % Lymphocytes % 7 % Monocytes % 6 % Eosinophils % 1 % Basophils % 0 % Neutrophils # 8.9 H (1.3-7.7) k/uL Lymphocytes # 0.8 L (1.0-4.8) k/uL Monocytes # 0.6 (0-1.0) k/uL Eosinophils # 0.2 (0-0.7) k/uL Basophils # 0.0 (0-0.2) k/uL Manual Slide Review Performed Toxic Granulation Present Toxic Vacuolation Present Macrocytosis Moderate PT 14.3 H (10.0-12.5) sec INR 1.4 H (<1.2) APTT 28.1 (22.0-30.0) sec Sodium 136 L (137-145) mmol/L Potassium 3.4 L (3.5-5.1) mmol/L Chloride 106 (98-107) mmol/L Carbon Dioxide 22 (22-30) mmol/L Anion Gap 8 mmol/L BUN 47 H (7-17) mg/dL Creatinine 1.51 H (0.52-1.04) mg/dL Est GFR (CKD-EPI)AfAm 38 (>60 ml/min/1.73 sqM) Est GFR (CKD-EPI)NonAf 33 (>60 ml/min/1.73 sqM) Glucose 114 H (74-99) mg/dL Lactic Ac Sepsis Rflx Plasma Lactic Acid Shane (0.7-2.0) mmol/L Calcium 8.6 (8.4-10.2) mg/dL Magnesium 2.0 (1.6-2.3) mg/dL Total Bilirubin 3.1 H (0.2-1.3) mg/dL Conjugated Bilirubin 0.0 (0.0-0.3) mg/dL Unconjugated Bilirubin 2.5 H (0.0-1.1) mg/dL Delta Bilirubin 0.6 H (0.0-0.2) mg/dL AST 93 H (14-36) U/L ALT 41 H (4-34) U/L Alkaline Phosphatase 169 H (38-126) U/L Troponin I (0.000-0.034) ng/mL NT-Pro-B Natriuret Pep 7820 pg/mL Total Protein 7.5 (6.3-8.2) g/dL Albumin 3.1 L (3.5-5.0) g/dL Influenza Type A (PCR) (Not Detectd) Influenza Type B (PCR) (Not Detectd) RSV (PCR) (Not Detectd) SARS-CoV-2 (PCR) (Not Detectd) 06/08/23 06/08/23 06/08/23 Range/Units 04:18 04:18 04:44 WBC (3.8-10.6) k/uL RBC (3.80-5.40) m/uL Hgb (11.4-16.0) gm/dL Hct (34.0-46.0) % MCV (80.0-100.0) fL MCH (25.0-35.0) pg MCHC (31.0-37.0) g/dL RDW (11.5-15.5) % Plt Count (150-450) k/uL MPV Neutrophils % % Lymphocytes % % Monocytes % % Eosinophils % % Basophils % % Neutrophils # (1.3-7.7) k/uL Lymphocytes # (1.0-4.8) k/uL Monocytes # (0-1.0) k/uL Eosinophils # (0-0.7) k/uL Basophils # (0-0.2) k/uL Manual Slide Review Toxic Granulation Toxic Vacuolation Macrocytosis PT (10.0-12.5) sec INR (<1.2) APTT (22.0-30.0) sec Sodium (137-145) mmol/L Potassium (3.5-5.1) mmol/L Chloride (98-107) mmol/L Carbon Dioxide (22-30) mmol/L Anion Gap mmol/L BUN (7-17) mg/dL Creatinine (0.52-1.04) mg/dL Est GFR (CKD-EPI)AfAm (>60 ml/min/1.73 sqM) Est GFR (CKD-EPI)NonAf (>60 ml/min/1.73 sqM) Glucose (74-99) mg/dL Lactic Ac Sepsis Rflx Plasma Lactic Acid Shane 2.5 H* (0.7-2.0) mmol/L Calcium (8.4-10.2) mg/dL Magnesium (1.6-2.3) mg/dL Total Bilirubin (0.2-1.3) mg/dL Conjugated Bilirubin (0.0-0.3) mg/dL Unconjugated Bilirubin (0.0-1.1) mg/dL Delta Bilirubin (0.0-0.2) mg/dL AST (14-36) U/L ALT (4-34) U/L Alkaline Phosphatase (38-126) U/L Troponin I 0.153 H* (0.000-0.034) ng/mL NT-Pro-B Natriuret Pep pg/mL Total Protein (6.3-8.2) g/dL Albumin (3.5-5.0) g/dL Influenza Type A (PCR) Not Detected (Not Detectd) Influenza Type B (PCR) Not Detected (Not Detectd) RSV (PCR) Not Detected (Not Detectd) SARS-CoV-2 (PCR) Not Detected (Not Detectd) 06/08/23 Range/Units 05:13 WBC (3.8-10.6) k/uL RBC (3.80-5.40) m/uL Hgb (11.4-16.0) gm/dL Hct (34.0-46.0) % MCV (80.0-100.0) fL MCH (25.0-35.0) pg MCHC (31.0-37.0) g/dL RDW (11.5-15.5) % Plt Count (150-450) k/uL MPV Neutrophils % % Lymphocytes % % Monocytes % % Eosinophils % % Basophils % % Neutrophils # (1.3-7.7) k/uL Lymphocytes # (1.0-4.8) k/uL Monocytes # (0-1.0) k/uL Eosinophils # (0-0.7) k/uL Basophils # (0-0.2) k/uL Manual Slide Review Toxic Granulation Toxic Vacuolation Macrocytosis PT (10.0-12.5) sec INR (<1.2) APTT (22.0-30.0) sec Sodium (137-145) mmol/L Potassium (3.5-5.1) mmol/L Chloride (98-107) mmol/L Carbon Dioxide (22-30) mmol/L Anion Gap mmol/L BUN (7-17) mg/dL Creatinine (0.52-1.04) mg/dL Est GFR (CKD-EPI)AfAm (>60 ml/min/1.73 sqM) Est GFR (CKD-EPI)NonAf (>60 ml/min/1.73 sqM) Glucose (74-99) mg/dL Lactic Ac Sepsis Rflx Y Plasma Lactic Acid Shane (0.7-2.0) mmol/L Calcium (8.4-10.2) mg/dL Magnesium (1.6-2.3) mg/dL Total Bilirubin (0.2-1.3) mg/dL Conjugated Bilirubin (0.0-0.3) mg/dL Unconjugated Bilirubin (0.0-1.1) mg/dL Delta Bilirubin (0.0-0.2) mg/dL AST (14-36) U/L ALT (4-34) U/L Alkaline Phosphatase (38-126) U/L Troponin I (0.000-0.034) ng/mL NT-Pro-B Natriuret Pep pg/mL Total Protein (6.3-8.2) g/dL Albumin (3.5-5.0) g/dL Influenza Type A (PCR) (Not Detectd) Influenza Type B (PCR) (Not Detectd) RSV (PCR) (Not Detectd) SARS-CoV-2 (PCR) (Not Detectd) Disposition Clinical Impression: Dyspnea Disposition: ADMITTED IP TO THIS [facility] Condition: Serious Referrals: Aidan Hood MD [Primary Care Provider] - 1-2 days Decision Time: 07:59
[2023-06-08 04:39] LABS: Basophils % (A) 0 %; Eosinophils # (A) 0.2 k/uL (0-0.7); Eosinophils % (A) 1 %; HCT 33.3 % (34.0-46.0); Lymphocytes # (A) 0.8 k/uL (1.0-4.8); Lymphocytes % (A) 7 %; MCH 34.3 pg (25.0-35.0); MCHC 32.9 g/dL (31.0-37.0); MCV 104.1 fL (80.0-100.0); Macrocytosis Moderate; Mean Platelet Volume 8.7; Monocytes # (A) 0.6 k/uL (0-1.0); Monocytes % (A) 6 %; Neutrophils # (A) 8.9 k/uL (1.3-7.7); Neutrophils % (A) 82 %; RDW 14.7 % (11.5-15.5); WBC 10.9 k/uL (3.8-10.6)
[2023-06-08 04:49] LABS: ALT 41 U/L (4-34); AST 93 U/L (14-36); African American GFR (CKD) 38 (>60 ml/min/1.73 sqM); Albumin 3.1 g/dL (3.5-5.0); Alkaline Phosphatase 169 U/L (38-126); Anion Gap 8 mmol/L; Bilirubin, Delta 0.6 mg/dL (0.0-0.2); Bilirubin,Unconjugated 2.5 mg/dL (0.0-1.1); Blood Urea Nitrogen 47 mg/dL (7-17); Calcium 8.6 mg/dL (8.4-10.2); Carbon Dioxide 22 mmol/L (22-30); Chloride 106 mmol/L (98-107); Glucose 114 mg/dL (74-99); Non-African American GFR(CKD) 33 (>60 ml/min/1.73 sqM); Potassium 3.4 mmol/L (3.5-5.1); Sodium 136 mmol/L (137-145); Total Bilirubin 3.1 mg/dL (0.2-1.3); Total Protein 7.5 g/dL (6.3-8.2)
[2023-06-08 04:50] LABS: INR 1.4 (<1.2); Partial Thromboplastin Time 28.1 sec (22.0-30.0); Prothrombin Time 14.3 sec (10.0-12.5)
[2023-06-08 04:57] LABS: NT-Pro-B-Type Natriuretic Pept 7820 pg/mL
[2023-06-08 05:03] LABS: Platelet Count 86 k/uL (150-450); Toxic Granulation Present; Toxic Vacuolation Present
[2023-06-08] MEDS ORDERED: cefTRIAXone IN SWFI 1,000 MG/10 ML SYRINGE IVP STA (05:59)
[2023-06-08] MEDS ORDERED: AZITHROMYCIN 500 MG in SODIUM CHLORIDE 0.9% 250 ML IVPB STA (05:59)
[2023-06-08] MEDS: NITROGLYCERIN SL TABS 0.4 MG TAB SUBLINGUAL STA ×2 (07:14→07:15)
--- NOTE | 2023-06-08 07:17 | XR ---
EXAMINATION TYPE: XR chest 1V portable DATE OF EXAM: 06/08/2023 COMPARISON: 04/15/2023 HISTORY: Shortness of breath TECHNIQUE: Single frontal view of the chest is obtained. FINDINGS: There is been interval development of diffuse fluffy small airspace and interstitial opacity consiste nt with pulmonary edema or diffuse pneumonia. Heart size is normal. There is no pleural effusion or p neumothorax. The osseous structures are intact. IMPRESSION: IMPRESSION: Interval development of diffuse infiltrates as described above. Findings consistent with marked acute cardiopulmonary disease.
--- NOTE | 2023-06-08 07:31 | CT ---
EXAMINATION TYPE: CT ChestAbdPelvis w con DATE OF EXAM: 06/08/2023 COMPARISON: None HISTORY: dyspnea/jaundice CT DLP: 862.2 mGycm Automated exposure control for dose reduction was used. CONTRAST: CT scan of the chest, abdomen and pelvis is performed without Oral Contrast and with IV Contrast, pat ient injected with 80 mL of Isovue 300. FINDINGS: Chest CT: There are a few scattered sub-6 mm subsolid and subpleural parenchymal nodules in the right lung. There are bibasilar partially consolidative infiltrates and pleural effusions, moderate on the right and small on the left. The heart is prominent in size. There is no mediastinal, hilar or axillary adenopathy. There is no pn eumothorax. Bony thorax is intact. CT abdomen and pelvis: There is cholelithiasis and there is moderate pericholecystic fluid raising question of acute cholecy stitis. There is no biliary ductal dilatation. There is no focal mass or organomegaly involving the liver, pancreas, spleen or adrenal glands. There is no solid renal mass or hydronephrosis. There is no retroperitoneal adenopathy or hemorrhage in the common abdominal aorta is normal. The bowel loops are normal in caliber and no dilatation or obstruction. There is a large amount of st ool within the rectum. There is a left inguinal hernia containing bowel loops but the bowel loops do not appear strangulated . No focal osseous lesions are seen. IMPRESSION: 1. Bilateral lower lobe infiltrates and pleural effusions, right greater than left, as described abov e. 2. Cholelithiasis and pericholecystic fluid raising the question of acute cholecystitis. 3. No biliary ductal dilatation. 4. Left inguinal hernia containing a few small bowel loops but no evidence of bowel strangulation or obstruction. 5. Large amount of stool within the rectum
[2023-06-08] MEDS ORDERED: MORPHINE SULFATE 4 MG/ML SYRINGE IV PRN (07:50)
[2023-06-08] MEDS ORDERED: ACETAMINOPHEN TAB 325 MG TAB PO PRN (07:50)
[2023-06-08] MEDS ORDERED: NALOXONE 0.4 MG/ML 1 ML VIAL IV PRN (07:50)
[2023-06-08] MEDS ORDERED: ONDANSETRON 4 MG/2 ML VIAL IVP PRN (08:18)
[2023-06-08] MEDS ORDERED: HYDROmorphone 1 MG/ML 1 ML SYRINGE IVP PRN (08:18)
[2023-06-08] MEDS ORDERED: PNEUMONIA PROTOCOL UTILIZED 1 EACH MISC PO PRN (08:18)
[2023-06-08] MEDS ORDERED: SODIUM CHLORIDE 0.9% 1,000 ML IV ONE (08:27)
[2023-06-08] MEDS: SODIUM CHLORIDE 0.9% 1,000 ML IV SCH (09:11)
[2023-06-08] MEDS ORDERED: guaiFENesin-Coden 100-10MG/5ML 10 ML CUP PO PRN (09:36)
[2023-06-08] MEDS ORDERED: methylPREDNISolone SOD SUCCI 40 MG/ML 1 ML VIAL IV SCH (09:45)
[2023-06-08] MEDS: FUROSEMIDE 10 MG/ML 2 ML VIAL IV SCH ×2 (11:40→20:06)
[2023-06-08] MEDS: metroNIDAZOLE-NS PMX 500 MG in SALINE 1 100ML.BAG IVPB SCH ×3 (11:54→23:21)
[2023-06-08] MEDS: IPRATROPIUM-ALBUTEROL 3 ML NEB INHALATION PRN (11:58)
--- NOTE | 2023-06-08 12:35 | US ---
EXAMINATION TYPE: US gallbladder DATE OF EXAM: 06/08/2023 COMPARISON: NONE CLINICAL INDICATION: Female, 78 years old with history of cholelithiasis; acute cholecystitis per CT TECHNIQUE: Multiple sonographic images of the right upper quadrant are obtained. FINDINGS: EXAM MEASUREMENTS: Liver Length: 10.7 cm Gallbladder Wall: 0.1 cm CBD: 0.1 cm Right Kidney: 10.9x4.5x6.0 cm GRANTS ADMINISTRATOR NOTES: Pancreas: small 0.8x0.6x0.6cm hypoechoic area noted at pancreatic head Tail obscured by overlying javon wel gas Liver: wnl Gallbladder: gravel like stones and pericholecystic fluid noted Evidence for sonographic Torres's sign: No CBD: wnl Right Kidney: No hydronephrosis or masses seen exam limited by bowel and rib shadows IMPRESSION: 1. Cholelithiasis and mild pericholecystic fluid. 2. Sonographic Torres sign negative. No biliary ductal dilatation. 3. 8 mm hypoechoic lesion noted in the pancreatic head. Pancreatic tail obscured by bowel gas. Note t hat no definite pancreatic mass seen on CT of the chest abdomen and pelvis dated 06/08/2023 4. No liver or right kidney abnormality. 5. Findings may indicate acute cholecystitis.
[2023-06-08] MEDS: POTASSIUM CHLORIDE 10 MEQ in WATER FOR INJECTION 1 100ML.BAG IVPB SCH ×2 (12:56→14:19)
--- NOTE | 2023-06-08 13:07 | P.CNPUL ---
History of Present Illness Consult date: 06/08/23 Reason for consult: dyspnea History of present illness: 78-year-old. Patient with known history of bronchial asthma, presented to the hospital because of worsening shortness of breath. Limited cough and congestion. She was also febrile prior to her coming into the hospital. 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 The patient also has a component of CHF. Her most recent echocardiogram from 04/15/2023 showed normal LV EF of around 50-55%, moderate left atrial dilatation, normal valvular structures, mild mitral regurgitation. Patient is currently on 4 L of oxygen by nasal cannula, the white cell cause of 10.9 with a hemoglobin of 11, sodium is 136 with a potassium level of 3.4. Her creatinine is currently elevated and currently is at 1.5 with a BUN of 47 and sodium levels of 136. LFTs showed mild elevation of the AST and ALP and the bilirubin level is at 2.5. Troponins are elevated at 0.1 and 0.7 respectively and her proBNP level is at 7820. CAT scan of chest abdomen and pelvis was done and the patient was found to have small bilateral pleural effusion and some limited resected change in lung bases bilaterally, cholelithiasis with pericholecystic fluid and there is no evidence of any biliary dilatation. Left inguinal hernia containing small bowel loops without any evidence of fasciculation. Large amount of stool within the rectum. The patient's history of any chest pain. Currently she is afebrile and hemodynamically stable. Review of Systems CONSTITUTIONAL: Positive for fever and generalized weakness. Denies any recent significant weight loss or weight gain. EYES: Denies change in vision. EARS, NOSE, MOUTH, THROAT: Denies headaches, denies sore throat. CARDIOVASCULAR: Denies chest pain, palpitations or syncopal episodes. RESPIRATORY: Denies shortness of breath, cough, congestion or hemoptysis. GASTROINTESTINAL: Denies change in appetite, denies abdominal pain GENITOURINARY: Denies hematuria, denies infections. MUSKULOSKELETAL: Positive for weakness. Denies pain, denies swelling. INTEGUMENTARY: Denies rash, denies eczema. NEUROLOGICAL: Denies recent memory loss, no recent seizure activity. PSYCHIATRIC: Denies anxiety, denies depression. HEMATOLOGIC/LYMPHATIC: Denies anemia, denies enlarged lymph nodes. 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 History of Any Multi-Drug Resistant Organisms: None Reported Past Surgical History: Heart Catheterization Additional Past Surgical History / Comment(s): EYE SURGERY DUE TO INJURY, EGD, COLONOSCOPY, BONE MARROW BIOPSY, cataracts Past Anesthesia/Blood Transfusion Reactions: No Reported Reaction Past Psychological History: No Psychological Hx Reported Smoking Status: Never smoker Past Alcohol Use History: Occasional Past Drug Use History: None Reported - Past Family History Sister(s) Family Medical History: Cancer Additional Family Medical History / Comment(s): LEUKEMIA- at age 42 Brother(s) Family Medical History: Cancer Additional Family Medical History / Comment(s): with unknown type CA at age 60s Medications and Allergies Home Medications Medication Instructions Recorded Confirmed Type Cyanocobalamin (Vitamin B-12) 1,000 mcg PO DAILY 12/30/20 06/08/23 History [Vitamin B-12] Ferrous Sulfate [Iron (65 MG 325 mg PO HS 12/30/20 06/08/23 History Elemental)] Vit C/E/Zn/Coppr/Lutein/Zeaxan 1 cap PO BID 12/30/20 06/08/23 History [Preservision Areds 2 Softgel] Cholecalciferol (Vitamin D3) 125 mcg PO DAILY 04/25/21 06/08/23 History [Vitamin D3 (125 MCG = 5,000 IU)] Magnesium Oxide [Mag-Ox] 400 mg PO HS 02/04/23 06/08/23 History Metoprolol Succinate (ER) [Toprol 25 mg PO HS #30 tab 04/17/23 06/08/23 Rx XL] Metoprolol Succinate (ER) [Toprol 50 mg PO DAILY #30 tab 04/17/23 06/08/23 Rx XL] Apixaban [Eliquis] 2.5 mg PO DAILY 06/08/23 06/08/23 History Bumetanide [Bumex] 1 mg PO BID 06/08/23 06/08/23 History Folic Acid 1 mg PO DAILY 06/08/23 06/08/23 History Potassium Gluconate 99 mg PO DAILY 06/08/23 06/08/23 History Allergies Allergy/AdvReac Type Severity Reaction Status Date / Time omeprazole [From Prilosec] Allergy Unknown Rash/Hives, Verified 06/08/23 11:58 TONGUE SWELLLING omeprazole magnesium Allergy Unknown Rash/Hives, Verified 06/08/23 11:58 [From Prilosec] TONGUE SWELLLING Penicillins Allergy Unknown Rash/Hives/ Verified 06/08/23 11:58 Itching amlodipine Allergy fide pedal Verified 06/08/23 11:58 edema, loss voice carvedilol Allergy shortness Verified 06/08/23 11:58 of breath lisinopril Allergy Unknown Verified 06/08/23 11:58 Physical Exam Vitals: Vital Signs Temp Pulse Resp BP Pulse Ox 06/08/23 06:23 99.3 F 90 20 151/78 95 06/08/23 05:53 92 19 143/72 98 06/08/23 05:23 91 100 06/08/23 04:17 100.1 F H 90 20 145/79 93 L Intake and Output 06/07/23 06/08/23 06/08/23 22:59 06:59 14:59 Other: Weight 72.575 kg GENERAL EXAM: Alert, pleasant 78-year-old female, sitting up in a stretcher, on 4 L nasal cannula, fairly comfortable in no apparent distress. HEAD: Normocephalic. EYES: Normal reaction of pupils, equal size. NOSE: Clear with pink turbinates. THROAT: No erythema or exudates. NECK: No masses, no JVD. CHEST: No chest wall deformity. LUNGS: Equal air entry with faint crackles in the posterior bases. CVS: S1 and S2 normal with no audible murmur, regular rhythm. ABDOMEN: No hepatosplenomegaly, normal bowel sounds, no guarding or rigidity. SPINE: No scoliosis or deformity SKIN: No rashes CENTRAL NERVOUS SYSTEM: No focal deficits, tone is normal in all 4 extremities. EXTREMITIES: There is no peripheral edema. No clubbing, no cyanosis. Nila pheral pulses are intact. Results - Laboratory Findings CBC and BMP: 06/08/23 04:18 06/08/23 04:18 PT/INR, D-dimer PT 14.3 sec (10.0-12.5) H 06/08/23 04:18 INR 1.4 (<1.2) H 06/08/23 04:18 Abnormal lab findings: Abnormal Labs 06/08/23 06/08/23 06/08/23 04:18 04:18 04:18 WBC 10.9 H RBC 3.20 L Hgb 11.0 L Hct 33.3 L MCV 104.1 H Plt Count 86 L Neutrophils # 8.9 H Lymphocytes # 0.8 L PT 14.3 H INR 1.4 H Sodium 136 L Potassium 3.4 L BUN 47 H Creatinine 1.51 H Glucose 114 H Plasma Lactic Acid Shane Total Bilirubin 3.1 H Unconjugated Bilirubin 2.5 H Delta Bilirubin 0.6 H AST 93 H ALT 41 H Alkaline Phosphatase 169 H Troponin I Albumin 3.1 L 06/08/23 06/08/23 06/08/23 04:18 04:18 07:20 WBC RBC Hgb Hct MCV Plt Count Neutrophils # Lymphocytes # PT INR Sodium Potassium BUN Creatinine Glucose Plasma Lactic Acid Shane 2.5 H* 3.4 H* Total Bilirubin Unconjugated Bilirubin Delta Bilirubin AST ALT Alkaline Phosphatase Troponin I 0.153 H* Albumin - Diagnostic Findings Chest x-ray: image reviewed CT scan - chest: image reviewed Assessment and Plan Plan: Acute hypoxic respiratory failure with development of small bilateral pleural effusions. Consider underlying pneumonia. There may be also a component of CHF contributing to her acute hypoxic respiratory failure and shortness of breath. 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 No Torres's sign. Hyperbilirubinemia with mild elevation of LFTs Hypertension Osteoarthritis Chronic kidney disease stage III, creatinine stable at 1.5 Abnormal troponins Spinal stenosis Plan Titrate oxygen flow to maintain saturation above 90% Will give diuretics and I'm going to start the patient on Lasix 20 mg IV every 12 hours Broad-spectrum antibiotic coverage covering cholecystitis and pneumonia and the patient was kept on accommodation of Rocephin and Zithromax and Flagyl IV fluids to KVO Continue bronchodilators Continue steroids Ultrasound the gallbladder Monitor LFTs Gen. surgical consultation regarding gallbladder disease Check pro calcitonin level Monitor troponins We'll follow
--- NOTE | 2023-06-08 13:22 | P.HPIM ---
History of Present Illness H&P Date: 06/08/23 Chief Complaint: Shortness of breath * 78-year-old patient with past medical history significant for bronchial asthma, congestive heart failure diastolic dysfunction, hypertension, history of inclusion body myositis presents to the emergency department with complains of shortness of breath ongoing for the last 48 hours. Patient had been complaining of associated fever. Workup initiated in ED included CBC which were WBC count of 10.9 hemoglobin 11 platelet count of 86 INR of 1.4 * Serum chemistry shows sodium 136 potassium 3.4 BU and 47 creatinine 1.51 lactate obtained on admission 2.5, follow-up lactate 3.4 * Initial troponin obtained 0.153, EKG obtained in ER showed sinus rhythm with sciatic baseline, he which showed complexes were noted as well * Chest x-ray obtained in ED showed diffuse infiltrates bilaterally, patient was noted to have an N-terminal proBNP of 72 0 * Patient tested negative for influenza, RSV and Covid * CT abdomen and pelvis obtained showed bilateral lower lobe infiltrates and pleural effusions right greater than left evidence of cholelithiasis and pericholecystic fluid suspicion for acute cholecystitis large amount of stool within the rectum was noted * Patient was noted to be febrile in ER, started on IV antibiotics, blood cultures requested and given 1 L of fluid bolus caution with excessive hydration due to pulmonary vascular congestion consultations obtained from general surgery, probably medicine and cardiology REVIEW OF SYSTEMS: Shortness of breath, chest pain resolved CONSTITUTIONAL: No fever, no malaise, no fatigue. HEENT: No recent visual problems or hearing problems. Denied any sore throat. CARDIOVASCULAR: NShortness of breath, chest pain resolved PULMONARY: Shortness of breath GASTROINTESTINAL: No diarrhea, no nausea, no vomiting, no abdominal pain. NEUROLOGICAL: No headaches, no weakness, no numbness. HEMATOLOGICAL: Denies any bleeding or petechiae. GENITOURINARY: Denies any burning micturition, frequency, or urgency. MUSCULOSKELETAL/RHEUMATOLOGICAL: Denies any joint pain, swelling, or any muscle pain. ENDOCRINE: Denies any polyuria or polydipsia. PHYSICAL EXAMINATION: GENERAL: The patient is alert and oriented x3, ill appearance, nasal cannula in place HEENT: Pupils are round and equally reacting to light. EOMI Normocephalic, atraumatic. No pharyngeal erythema. No thyromegaly. CARDIOVASCULAR: S1 and S2 present. No murmurs, rubs, or gallops. PULMONARY: Increased breath sounds bilaterally ABDOMEN: Soft, nontender, nondistended, normoactive bowel sounds. No palpable organomegaly. MUSCULOSKELETAL: No joint swelling or deformity. EXTREMITIES: No cyanosis, clubbing, or pedal edema. NEUROLOGICAL: Gross neurological examination did not reveal any focal deficits. SKIN: No rashes. 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 History of Any Multi-Drug Resistant Organisms: None Reported Past Surgical History: Heart Catheterization Additional Past Surgical History / Comment(s): EYE SURGERY DUE TO INJURY, EGD, COLONOSCOPY, BONE MARROW BIOPSY, cataracts Past Anesthesia/Blood Transfusion Reactions: No Reported Reaction Past Psychological History: No Psychological Hx Reported Smoking Status: Never smoker Past Alcohol Use History: Occasional Past Drug Use History: None Reported - Past Family History Sister(s) Family Medical History: Cancer Additional Family Medical History / Comment(s): LEUKEMIA- at age 42 Brother(s) Family Medical History: Cancer Additional Family Medical History / Comment(s): with unknown type CA at age 60s Medications and Allergies Home Medications Medication Instructions Recorded Confirmed Type Cyanocobalamin (Vitamin B-12) 1,000 mcg PO DAILY 12/30/20 06/08/23 History [Vitamin B-12] Ferrous Sulfate [Iron (65 MG 325 mg PO HS 12/30/20 06/08/23 History Elemental)] Vit C/E/Zn/Coppr/Lutein/Zeaxan 1 cap PO BID 12/30/20 06/08/23 History [Preservision Areds 2 Softgel] Cholecalciferol (Vitamin D3) 125 mcg PO DAILY 04/25/21 06/08/23 History [Vitamin D3 (125 MCG = 5,000 IU)] Magnesium Oxide [Mag-Ox] 400 mg PO HS 02/04/23 06/08/23 History Metoprolol Succinate (ER) [Toprol 25 mg PO HS #30 tab 04/17/23 06/08/23 Rx XL] Metoprolol Succinate (ER) [Toprol 50 mg PO DAILY #30 tab 04/17/23 06/08/23 Rx XL] Apixaban [Eliquis] 2.5 mg PO DAILY 06/08/23 06/08/23 History Bumetanide [Bumex] 1 mg PO BID 06/08/23 06/08/23 History Folic Acid 1 mg PO DAILY 06/08/23 06/08/23 History Potassium Gluconate 99 mg PO DAILY 06/08/23 06/08/23 History Allergies Allergy/AdvReac Type Severity Reaction Status Date / Time omeprazole [From Prilosec] Allergy Unknown Rash/Hives, Verified 06/08/23 11:58 TONGUE SWELLLING omeprazole magnesium Allergy Unknown Rash/Hives, Verified 06/08/23 11:58 [From Prilosec] TONGUE SWELLLING Penicillins Allergy Unknown Rash/Hives/ Verified 06/08/23 11:58 Itching amlodipine Allergy fide pedal Verified 06/08/23 11:58 edema, loss voice carvedilol Allergy shortness Verified 06/08/23 11:58 of breath lisinopril Allergy Unknown Verified 06/08/23 11:58 Physical Exam Vitals: Vital Signs Temp Pulse Resp BP Pulse Ox 06/08/23 06:23 99.3 F 90 20 151/78 95 06/08/23 05:53 92 19 143/72 98 06/08/23 05:23 91 100 06/08/23 04:17 100.1 F H 90 20 145/79 93 L Intake and Output 06/07/23 06/08/23 06/08/23 22:59 06:59 14:59 Other: Weight 72.575 kg Results CBC & Chem 7: 06/08/23 04:18 06/08/23 04:18 Labs: Abnormal Lab Results - Last 24 Hours (Table) 06/08/23 06/08/23 06/08/23 Range/Units 04:18 04:18 04:18 WBC 10.9 H (3.8-10.6) k/uL RBC 3.20 L (3.80-5.40) m/uL Hgb 11.0 L (11.4-16.0) gm/dL Hct 33.3 L (34.0-46.0) % MCV 104.1 H (80.0-100.0) fL Plt Count 86 L (150-450) k/uL Neutrophils # 8.9 H (1.3-7.7) k/uL Lymphocytes # 0.8 L (1.0-4.8) k/uL PT 14.3 H (10.0-12.5) sec INR 1.4 H (<1.2) Sodium 136 L (137-145) mmol/L Potassium 3.4 L (3.5-5.1) mmol/L BUN 47 H (7-17) mg/dL Creatinine 1.51 H (0.52-1.04) mg/dL Glucose 114 H (74-99) mg/dL Plasma Lactic Acid Shane (0.7-2.0) mmol/L Total Bilirubin 3.1 H (0.2-1.3) mg/dL Unconjugated Bilirubin 2.5 H (0.0-1.1) mg/dL Delta Bilirubin 0.6 H (0.0-0.2) mg/dL AST 93 H (14-36) U/L ALT 41 H (4-34) U/L Alkaline Phosphatase 169 H (38-126) U/L Troponin I (0.000-0.034) ng/mL Albumin 3.1 L (3.5-5.0) g/dL 06/08/23 06/08/23 06/08/23 Range/Units 04:18 04:18 07:20 WBC (3.8-10.6) k/uL RBC (3.80-5.40) m/uL Hgb (11.4-16.0) gm/dL Hct (34.0-46.0) % MCV (80.0-100.0) fL Plt Count (150-450) k/uL Neutrophils # (1.3-7.7) k/uL Lymphocytes # (1.0-4.8) k/uL PT (10.0-12.5) sec INR (<1.2) Sodium (137-145) mmol/L Potassium (3.5-5.1) mmol/L BUN (7-17) mg/dL Creatinine (0.52-1.04) mg/dL Glucose (74-99) mg/dL Plasma Lactic Acid Shane 2.5 H* 3.4 H* (0.7-2.0) mmol/L Total Bilirubin (0.2-1.3) mg/dL Unconjugated Bilirubin (0.0-1.1) mg/dL Delta Bilirubin (0.0-0.2) mg/dL AST (14-36) U/L ALT (4-34) U/L Alkaline Phosphatase (38-126) U/L Troponin I 0.153 H* (0.000-0.034) ng/mL Albumin (3.5-5.0) g/dL Assessment and Plan Assessment: Assessment and plan * Acute hypoxic respiratory failure multifactorial secondary to pneumonia and c ongestive heart failure * Pericholecystic fluid, suspect cholecystitis, hyperbilirubinemia/transaminitis * Elevated troponin with history of left bundle branch block * Bilateral pleural effusions right greater than left * Acute exacerbation of bronchial asthma * History of congestive heart failure diastolic dysfunction with preserved ejection fraction * History of paroxysmal atrial fibrillation * In regards to acute hypoxic respiratory failure multifactorial noted to bilateral pleural effusion suspect multifocal pneumonia, with superimposed CHF. Continue patient on IV antibiotic Rocephin, azithromycin and Flagyl * In regards to pericholecystic fluid, suspect acute cholecystitis continue patient nothing by mouth continue IV antibiotic general surgery consulted * In regards to elevated troponin, serial troponins ordered, cardiology consulted * In regards to bilateral pleural effusion, acute asthma exacerbation, continue current management with breathing treatments, IV Solu-Medrol pulmonary medicine consulted, continue azithromycin * In regards to history of congestive heart failure most recent echocardiogram in March 2023 shows preserved ejection fraction, diuretic placed on hold and setting of lactic acidosis * In regards to history of paroxysmal atrial fibrillation, patient on Eliquis at home on hold in anticipation of surgical intervention * Patient remains critically ill, needing evaluation from multiple specialities, prognosis remains guarded secondary to underlying comorbidities, age * CODE STATUS is full code Time with Patient: Greater than 30
[2023-06-08 13:53] LABS: Appearance,Urine Clear (Clear); Bilirubin,Urine Negative (Negative); Blood,Urine Trace (Negative); Color,Urine Light Yellow; Glucose,Urine (UA) Trace (Negative); Ketones,Urine Negative (Negative); Leukocyte Esterase,Urine Small (Negative); Nitrite,Urine Negative (Negative); PH, Urine 5.5 (5.0-8.0); Protein,Urine Negative (Negative); RBC,Urine 2 /hpf (0-5); Specific Gravity,Urine 1.022 (1.001-1.035); Squamous Epithelial Cell,Urine 1 /hpf (0-4); Urobilinogen,Urine <2.0 mg/dL (<2.0); WBC,Urine 2 /hpf (0-5)
[2023-06-08] MEDS ORDERED: HEPARIN SODIUM 1,000 UN/ML (10ML VL) IV ONE (15:22)
[2023-06-08] MEDS ORDERED: HEPARIN SODIUM 1,000 UN/ML (10ML VL) IV PRN (15:22)
[2023-06-08] MEDS: methylPREDNISolone SOD SUCCI 40 MG/ML 1 ML VIAL IV SCH ×2 (15:34→23:21)
[2023-06-08] MEDS: HEPARIN SOD,PORK IN 0.45% NACL 25,000 UNIT in 0.45% NACL 1 250ML.BAG IV SCH (15:41)
--- NOTE | 2023-06-08 16:45 | P.GSCN ---
History of Present Illness Consult date: 06/08/23 Reason for Consult: cholelithiasis History of present illness: * 78-year-old patient with past medical history significant for bronchial asthma , congestive heart failure diastolic dysfunction, hypertension, history of inclusion body myositis presents to the emergency department with complains of shortness of breath ongoing for the last 48 hours. Patient had been complaining of associated fever. Workup initiated in ED included CBC which w ere WBC count of 10.9 hemoglobin 11 platelet count of 86 INR of 1.4 * Serum chemistry shows sodium 136 potassium 3.4 BU and 47 creatinine 1.51 lactate obtained on admission 2.5, follow-up lactate 3.4 * Initial troponin obtained 0.153, EKG obtained in ER showed sinus rhythm with sciatic baseline, he which showed complexes were noted as well * Chest x-ray obtained in ED showed diffuse infiltrates bilaterally, patient was noted to have an N-terminal proBNP of 72 0 * Patient tested negative for influenza, RSV and Covid * CT abdomen and pelvis obtained showed bilateral lower lobe infiltrates and pleural effusions right greater than left evidence of cholelithiasis and pericholecystic fluid suspicion for acute cholecystitis large amount of stool within the rectum was noted * Patient was noted to be febrile in ER, started on IV antibiotics, blood cultures requested and given 1 L of fluid bolus caution with excessive hydration due to pulmonary vascular congestion consultations obtained from general surgery, probably medicine and cardiology Review of Systems - Constitutional Reports as per HPI Past Medical History Past Medical History: Asthma, Heart Failure, Eye Disorder, Hypertension, Musculoskeletal Disorder, Osteoarthritis (OA) Additional Past Medical History / Comment(s): ENVIRONMENTAL ALLERGIES, BACK STENOSIS, 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 History of Any Multi-Drug Resistant Organisms: None Reported Past Surgical History: Heart Catheterization Additional Past Surgical History / Comment(s): EYE SURGERY DUE TO INJURY, EGD, COLONOSCOPY, BONE MARROW BIOPSY, cataracts Past Anesthesia/Blood Transfusion Reactions: No Reported Reaction Past Psychological History: No Psychological Hx Reported Smoking Status: Never smoker Past Alcohol Use History: Occasional Past Drug Use History: None Reported - Past Family History Sister(s) Family Medical History: Cancer Additional Family Medical History / Comment(s): LEUKEMIA- at age 42 Brother(s) Family Medical History: Cancer Additional Family Medical History / Comment(s): with unknown type CA at age 60s Medications and Allergies Home Medications Medication Instructions Recorded Confirmed Type Cyanocobalamin (Vitamin B-12) 1,000 mcg PO DAILY 12/30/20 06/08/23 History [Vitamin B-12] Ferrous Sulfate [Iron (65 MG 325 mg PO HS 12/30/20 06/08/23 History Elemental)] Vit C/E/Zn/Coppr/Lutein/Zeaxan 1 cap PO BID 12/30/20 06/08/23 History [Preservision Areds 2 Softgel] Cholecalciferol (Vitamin D3) 125 mcg PO DAILY 04/25/21 06/08/23 History [Vitamin D3 (125 MCG = 5,000 IU)] Magnesium Oxide [Mag-Ox] 400 mg PO HS 02/04/23 06/08/23 History Metoprolol Succinate (ER) [Toprol 25 mg PO HS #30 tab 04/17/23 06/08/23 Rx XL] Metoprolol Succinate (ER) [Toprol 50 mg PO DAILY #30 tab 04/17/23 06/08/23 Rx XL] Apixaban [Eliquis] 2.5 mg PO DAILY 06/08/23 06/08/23 History Bumetanide [Bumex] 1 mg PO BID 06/08/23 06/08/23 History Folic Acid 1 mg PO DAILY 06/08/23 06/08/23 History Potassium Gluconate 99 mg PO DAILY 06/08/23 06/08/23 History Allergies Allergy/AdvReac Type Severity Reaction Status Date / Time omeprazole [From Prilosec] Allergy Unknown Rash/Hives, Verified 06/08/23 11:58 TONGUE SWELLLING omeprazole magnesium Allergy Unknown Rash/Hives, Verified 06/08/23 11:58 [From Prilosec] TONGUE SWELLLING Penicillins Allergy Unknown Rash/Hives/ Verified 06/08/23 11:58 Itching amlodipine Allergy fide pedal Verified 06/08/23 11:58 edema, loss voice carvedilol Allergy shortness Verified 06/08/23 11:58 of breath lisinopril Allergy Unknown Verified 06/08/23 11:58 Surgical - Exam Vital Signs Temp Pulse Resp BP Pulse Ox 100.1 F H 90 20 145/79 93 L 06/08/23 04:17 06/08/23 04:17 06/08/23 04:17 06/08/23 04:17 06/08/23 04:17 - General well developed, severe distress - Eyes PERRL, normal ocular movement, no icteric - Respiratory no normal respiratory effort bilateral: dullness (lower lobs), wheezing - Cardiovascular Rhythm: irregularly irregular - Abdomen Abdomen: soft, non tender, bowel sounds, no guarding, no rigid, no rebound, no distended Results - Labs 06/08/23 04:18 06/08/23 04:18 Abnormal Lab Results - Last 24 Hours (Table) 06/08/23 06/08/23 06/08/23 Range/Units 04:18 04:18 04:18 WBC 10.9 H (3.8-10.6) k/uL RBC 3.20 L (3.80-5.40) m/uL Hgb 11.0 L (11.4-16.0) gm/dL Hct 33.3 L (34.0-46.0) % MCV 104.1 H (80.0-100.0) fL Plt Count 86 L (150-450) k/uL Neutrophils # 8.9 H (1.3-7.7) k/uL Lymphocytes # 0.8 L (1.0-4.8) k/uL PT 14.3 H (10.0-12.5) sec INR 1.4 H (<1.2) Sodium 136 L (137-145) mmol/L Potassium 3.4 L (3.5-5.1) mmol/L BUN 47 H (7-17) mg/dL Creatinine 1.51 H (0.52-1.04) mg/dL Glucose 114 H (74-99) mg/dL Plasma Lactic Acid Shane (0.7-2.0) mmol/L Total Bilirubin 3.1 H (0.2-1.3) mg/dL Unconjugated Bilirubin 2.5 H (0.0-1.1) mg/dL Delta Bilirubin 0.6 H (0.0-0.2) mg/dL AST 93 H (14-36) U/L ALT 41 H (4-34) U/L Alkaline Phosphatase 169 H (38-126) U/L Troponin I (0.000-0.034) ng/mL Albumin 3.1 L (3.5-5.0) g/dL Urine Glucose (UA) (Negative) Urine Blood (Negative) Ur Leukocyte Esterase (Negative) 06/08/23 06/08/23 06/08/23 Range/Units 04:18 04:18 07:20 WBC (3.8-10.6) k/uL RBC (3.80-5.40) m/uL Hgb (11.4-16.0) gm/dL Hct (34.0-46.0) % MCV (80.0-100.0) fL Plt Count (150-450) k/uL Neutrophils # (1.3-7.7) k/uL Lymphocytes # (1.0-4.8) k/uL PT (10.0-12.5) sec INR (<1.2) Sodium (137-145) mmol/L Potassium (3.5-5.1) mmol/L BUN (7-17) mg/dL Creatinine (0.52-1.04) mg/dL Glucose (74-99) mg/dL Plasma Lactic Acid Shane 2.5 H* 3.4 H* (0.7-2.0) mmol/L Total Bilirubin (0.2-1.3) mg/dL Unconjugated Bilirubin (0.0-1.1) mg/dL Delta Bilirubin (0.0-0.2) mg/dL AST (14-36) U/L ALT (4-34) U/L Alkaline Phosphatase (38-126) U/L Troponin I 0.153 H* (0.000-0.034) ng/mL Albumin (3.5-5.0) g/dL Urine Glucose (UA) (Negative) Urine Blood (Negative) Ur Leukocyte Esterase (Negative) 06/08/23 06/08/23 Range/Units 10:36 13:40 WBC (3.8-10.6) k/uL RBC (3.80-5.40) m/uL Hgb (11.4-16.0) gm/dL Hct (34.0-46.0) % MCV (80.0-100.0) fL Plt Count (150-450) k/uL Neutrophils # (1.3-7.7) k/uL Lymphocytes # (1.0-4.8) k/uL PT (10.0-12.5) sec INR (<1.2) Sodium (137-145) mmol/L Potassium (3.5-5.1) mmol/L BUN (7-17) mg/dL Creatinine (0.52-1.04) mg/dL Glucose (74-99) mg/dL Plasma Lactic Acid Shane (0.7-2.0) mmol/L Total Bilirubin (0.2-1.3) mg/dL Unconjugated Bilirubin (0.0-1.1) mg/dL Delta Bilirubin (0.0-0.2) mg/dL AST (14-36) U/L ALT (4-34) U/L Alkaline Phosphatase (38-126) U/L Troponin I 0.759 H* (0.000-0.034) ng/mL Albumin (3.5-5.0) g/dL Urine Glucose (UA) Trace H (Negative) Urine Blood Trace H (Negative) Ur Leukocyte Esterase Small H (Negative) Diabetes panel 06/08/23 Range/Units 04:18 Sodium 136 L (137-145) mmol/L Potassium 3.4 L (3.5-5.1) mmol/L Chloride 106 (98-107) mmol/L Carbon Dioxide 22 (22-30) mmol/L BUN 47 H (7-17) mg/dL Creatinine 1.51 H (0.52-1.04) mg/dL Glucose 114 H (74-99) mg/dL Calcium 8.6 (8.4-10.2) mg/dL AST 93 H (14-36) U/L ALT 41 H (4-34) U/L Alkaline Phosphatase 169 H (38-126) U/L Total Protein 7.5 (6.3-8.2) g/dL Albumin 3.1 L (3.5-5.0) g/dL Calcium panel 06/08/23 Range/Units 04:18 Calcium 8.6 (8.4-10.2) mg/dL Albumin 3.1 L (3.5-5.0) g/dL Pituitary panel 06/08/23 Range/Units 04:18 Sodium 136 L (137-145) mmol/L Potassium 3.4 L (3.5-5.1) mmol/L Chloride 106 (98-107) mmol/L Carbon Dioxide 22 (22-30) mmol/L BUN 47 H (7-17) mg/dL Creatinine 1.51 H (0.52-1.04) mg/dL Glucose 114 H (74-99) mg/dL Calcium 8.6 (8.4-10.2) mg/dL Adrenal panel 06/08/23 Range/Units 04:18 Sodium 136 L (137-145) mmol/L Potassium 3.4 L (3.5-5.1) mmol/L Chloride 106 (98-107) mmol/L Carbon Dioxide 22 (22-30) mmol/L BUN 47 H (7-17) mg/dL Creatinine 1.51 H (0.52-1.04) mg/dL Glucose 114 H (74-99) mg/dL Calcium 8.6 (8.4-10.2) mg/dL Total Bilirubin 3.1 H (0.2-1.3) mg/dL AST 93 H (14-36) U/L ALT 41 H (4-34) U/L Alkaline Phosphatase 169 H (38-126) U/L Total Protein 7.5 (6.3-8.2) g/dL Albumin 3.1 L (3.5-5.0) g/dL Assessment and Plan (1) Acute respiratory failure with hypoxia Current Visit: No Status: Acute Code(s): J96.01 - ACUTE RESPIRATORY FAILURE WITH HYPOXIA SNOMED Code(s): 06161984 (2) Congestive heart failure Current Visit: No Status: Acute Code(s): I50.9 - HEART FAILURE, UNSPECIFIED SNOMED Code(s): 69643934 (3) Pneumonia Current Visit: No Status: Acute Code(s): J18.9 - PNEUMONIA, UNSPECIFIED ORGANISM SNOMED Code(s): 337761154 (4) Pulmonary edema Current Visit: No Status: Acute Code(s): J81.1 - CHRONIC PULMONARY EDEMA SNOMED Code(s): 47398450 (5) Sepsis Current Visit: No Status: Acute Code(s): A41.9 - SEPSIS, UNSPECIFIED ORGANISM SNOMED Code(s): 07665714 Plan: cholelithiasis cant confirm cholecystitis due to the small peritoneal fluid, will need HIDA scan to confirm cholecystitis. pneumonia and extensive co morbedeties she is a hig risk for surgery cardiology consult pulmonology consuly IV antibiotics saul treat pneumonia. if acute cholecystitis will recomment IR Cholecystostomy drain placement.
[2023-06-08] MEDS: METOPROLOL TARTRATE 25 MG TAB PO SCH (23:10)
[2023-06-09] MEDS: IPRATROPIUM-ALBUTEROL 3 ML NEB INHALATION PRN (05:10)
[2023-06-09] MEDS: FUROSEMIDE 10 MG/ML 2 ML VIAL IV SCH (07:40)
[2023-06-09] MEDS: metroNIDAZOLE-NS PMX 500 MG in SALINE 1 100ML.BAG IVPB SCH ×2 (07:40→16:12)
[2023-06-09] MEDS: METOPROLOL TARTRATE 25 MG TAB PO SCH ×2 (07:40→20:55)
[2023-06-09] MEDS: methylPREDNISolone SOD SUCCI 40 MG/ML 1 ML VIAL IV SCH ×2 (07:57→16:11)
--- NOTE | 2023-06-09 08:00 | XR ---
EXAMINATION TYPE: XR chest 1V portable DATE OF EXAM: 06/09/2023 COMPARISON: 06/08/2023 HISTORY: Dyspnea TECHNIQUE: Single frontal view of the chest is obtained. FINDINGS: There has been a moderate interval decrease in the diffuse small air space and interstitial opacities . In particular is been significant improved aeration in the right lung and in the left lower lobe. The heart remains mildly prominent. There is no pneumothorax or large pleural effusion. The osseous structures are intact. IMPRESSION: Moderate improvement in the acute cardiopulmonary disease as described above.
[2023-06-09 08:06] LABS: Basophils % (A) 0 %; Eosinophils # (A) 0.4 k/uL (0-0.7); Eosinophils % (A) 5 %; HCT 30.3 % (34.0-46.0); HGB 9.8 gm/dL (11.4-16.0); Hypochromasia Slight; Lymphocytes # (A) 1.8 k/uL (1.0-4.8); Lymphocytes % (A) 19 %; MCH 34.2 pg (25.0-35.0); MCHC 32.3 g/dL (31.0-37.0); MCV 106.1 fL (80.0-100.0); Macrocytosis Moderate; Mean Platelet Volume 9.1; Monocytes # (A) 0.7 k/uL (0-1.0); Monocytes % (A) 7 %; Neutrophils # (A) 6.4 k/uL (1.3-7.7); Neutrophils % (A) 66 %; RBC 2.86 m/uL (3.80-5.40); RDW 14.5 % (11.5-15.5); WBC 9.8 k/uL (3.8-10.6)
[2023-06-09 08:13] LABS: Platelet Count 80 k/uL (150-450)
[2023-06-09 08:32] LABS: ALT 32 U/L (4-34); AST 75 U/L (14-36); African American GFR (CKD) 46 (>60 ml/min/1.73 sqM); Albumin 2.3 g/dL (3.5-5.0); Alkaline Phosphatase 128 U/L (38-126); Anion Gap 2 mmol/L; Blood Urea Nitrogen 46 mg/dL (7-17); C Reactive Protein 7.4 mg/dL (<1.0); Calcium 7.7 mg/dL (8.4-10.2); Carbon Dioxide 23 mmol/L (22-30); Chloride 110 mmol/L (98-107); Glucose 104 mg/dL (74-99); Non-African American GFR(CKD) 40 (>60 ml/min/1.73 sqM); Potassium 3.4 mmol/L (3.5-5.1); Sodium 135 mmol/L (137-145); Total Bilirubin 1.9 mg/dL (0.2-1.3)
[2023-06-09] MEDS: AZITHROMYCIN 500 MG in SODIUM CHLORIDE 0.9% 250 ML IVPB SCH (09:46)
--- NOTE | 2023-06-09 10:45 | P.PN ---
Subjective Progress Note Date: 06/09/23 Patient was admitted for possible acute cholecystitis. Patient has minimal complaints of pain. She has multiple: Race with shortness of breath. And Heart failure. Patient scheduled for HIDA scan today. On exam vital signs are stable. Abdomen soft. Possible cholecystitis. Patient will undergo HIDA scan. Objective - Vital Signs Vital signs: Vital Signs Temp 99.7 F H 06/09/23 07:43 Pulse 83 06/09/23 07:43 Resp 18 06/09/23 07:43 BP 184/81 06/09/23 07:43 Pulse Ox 95 06/09/23 07:43 FiO2 Intake & Output 06/08/23 06/09/23 06/09/23 18:59 06:59 18:59 Intake Total 62.54 Output Total 600 Balance -537.46 Weight 72.575 kg Intake: Intake, IV Titration 62.54 Amount Heparin Sod,Pork in 0.45% 62.54 NaCl 25,000 unit In 0.45 % NaCl 1 250ml.bag @ 10 UNITS/KG/HR 7.258 mls/hr IV .Q24H [facility] Rx#: [id number] Oral 0 Output: Urine 600 Other: Voiding Method External Catheter External Catheter External Catheter - Labs CBC & Chem 7: 06/09/23 06:51 06/09/23 06:51 Labs: Abnormal Lab Results - Last 24 Hours (Table) 06/08/23 06/08/23 06/08/23 Range/Units 10:36 13:40 22:38 RBC (3.80-5.40) m/uL Hgb (11.4-16.0) gm/dL Hct (34.0-46.0) % MCV (80.0-100.0) fL Plt Count (150-450) k/uL APTT >200.0 H* (22.0-30.0) sec Sodium (137-145) mmol/L Potassium (3.5-5.1) mmol/L Chloride (98-107) mmol/L BUN (7-17) mg/dL Creatinine (0.52-1.04) mg/dL Glucose (74-99) mg/dL Calcium (8.4-10.2) mg/dL Total Bilirubin (0.2-1.3) mg/dL AST (14-36) U/L Alkaline Phosphatase (38-126) U/L Troponin I 0.759 H* (0.000-0.034) ng/mL C-Reactive Protein (<1.0) mg/dL Total Protein (6.3-8.2) g/dL Albumin (3.5-5.0) g/dL Urine Glucose (UA) Trace H (Negative) Urine Blood Trace H (Negative) Ur Leukocyte Esterase Small H (Negative) 06/09/23 06/09/23 06/09/23 Range/Units 06:51 06:51 08:18 RBC 2.86 L (3.80-5.40) m/uL Hgb 9.8 L (11.4-16.0) gm/dL Hct 30.3 L (34.0-46.0) % MCV 106.1 H (80.0-100.0) fL Plt Count 80 L (150-450) k/uL APTT 61.6 H (22.0-30.0) sec Sodium 135 L (137-145) mmol/L Potassium 3.4 L (3.5-5.1) mmol/L Chloride 110 H (98-107) mmol/L BUN 46 H (7-17) mg/dL Creatinine 1.27 H (0.52-1.04) mg/dL Glucose 104 H (74-99) mg/dL Calcium 7.7 L (8.4-10.2) mg/dL Total Bilirubin 1.9 H (0.2-1.3) mg/dL AST 75 H (14-36) U/L Alkaline Phosphatase 128 H (38-126) U/L Troponin I (0.000-0.034) ng/mL C-Reactive Protein 7.4 H (<1.0) mg/dL Total Protein 6.0 L (6.3-8.2) g/dL Albumin 2.3 L (3.5-5.0) g/dL Urine Glucose (UA) (Negative) Urine Blood (Negative) Ur Leukocyte Esterase (Negative)
--- NOTE | 2023-06-09 11:13 | P.PN ---
Subjective Progress Note Date: 06/09/23 * 78-year-old patient with past medical history significant for bronchial asthma, congestive heart failure diastolic dysfunction, hypertension, history of inclusion body myositis presents to the emergency department with complains of shortness of breath ongoing for the last 48 hours. Patient had been comp laining of associated fever. Workup initiated in ED included CBC which were WBC count of 10.9 hemoglobin 11 platelet count of 86 INR of 1.4 * Serum chemistry shows sodium 136 potassium 3.4 BU and 47 creatinine 1.51 lactate obtained on admission 2.5, follow-up lactate 3.4 * Initial troponin obtained 0.153, EKG obtained in ER showed sinus rhythm with sciatic baseline, he which showed complexes were noted as well * Chest x-ray obtained in ED showed diffuse infiltrates bilaterally, patient was noted to have an N-terminal proBNP of 72 0 * Patient tested negative for influenza, RSV and Covid * CT abdomen and pelvis obtained showed bilateral lower lobe infiltrates and pleural effusions right greater than left evidence of cholelithiasis and pericholecystic fluid suspicion for acute cholecystitis large amount of stool within the rectum was noted * Patient was noted to be febrile in ER, started on IV antibiotics, blood cultures requested and given 1 L of fluid bolus caution with excessive hydration due to pulmonary vascular congestion consultations obtained from general surgery, probably medicine and cardiology * 06/09/2023: Patient seen and evaluated bedside, patient does complain of shortness of breath, patient says breathing has worsened, chest x-ray obtained today does show some improvement. Patient remains on 2 L of oxygen, noted to be hypotensive, continue patient on IV Solu-Medrol, pulmonary medicine following, general surgery following. Considering patient has been on Bumex at home will transition to IV Bumex, continue to monitor intake and output, REVIEW OF SYSTEMS: Shortness of breath worsened, chest pain resolved CONSTITUTIONAL: No fever, no malaise, no fatigue. HEENT: No recent visual problems or hearing problems. Denied any sore throat. CARDIOVASCULAR: NShortness of breath worsened, chest pain resolved PULMONARY: Shortness of breath GASTROINTESTINAL: No diarrhea, no nausea, no vomiting, no abdominal pain. NEUROLOGICAL: No headaches, no weakness, no numbness. HEMATOLOGICAL: Denies any bleeding or petechiae. GENITOURINARY: Denies any burning micturition, frequency, or urgency. MUSCULOSKELETAL/RHEUMATOLOGICAL: Denies any joint pain, swelling, or any muscle pain. ENDOCRINE: Denies any polyuria or polydipsia. PHYSICAL EXAMINATION: GENERAL: The patient is alert and oriented x3, ill appearance, nasal cannula in place HEENT: Pupils are round and equally reacting to light. EOMI Normocephalic, atraumatic. No pharyngeal erythema. No thyromegaly. CARDIOVASCULAR: S1 and S2 present. No murmurs, rubs, or gallops. PULMONARY: Decreased breath sounds bilaterally, rhonchi audible ABDOMEN: Soft, nontender, nondistended, normoactive bowel sounds. No palpable organomegaly. Torres's sign negative MUSCULOSKELETAL: Lower extremity edema noted EXTREMITIES: No cyanosis, clubbing, or pedal edema. NEUROLOGICAL: Gross neurological examination did not reveal any focal deficits. SKIN: No rashes. Objective - Vital Signs Vital signs: Vital Signs Temp 98.4 F 06/09/23 00:01 Pulse 76 06/09/23 00:01 Resp 18 06/09/23 00:01 BP 111/75 06/09/23 00:01 Pulse Ox 98 06/09/23 00:01 FiO2 Intake & Output 06/08/23 06/08/23 06/09/23 06:59 18:59 06:59 Intake Total 62.54 Output Total 400 Balance -337.46 Weight 72.575 kg 72.575 kg Intake: Intake, IV Titration 62.54 Amount Heparin Sod,Pork in 0.45% 62.54 NaCl 25,000 unit In 0.45 % NaCl 1 250ml.bag @ 10 UNITS/KG/HR 7.258 mls/hr IV .Q24H [facility] Rx#: [id number] Oral 0 Output: Urine 400 Other: Voiding Method External Catheter External Catheter - Labs CBC & Chem 7: 06/09/23 06:51 06/09/23 06:51 Labs: Abnormal Lab Results - Last 24 Hours (Table) 06/08/23 06/08/23 06/08/23 Range/Units 04:18 04:18 04:18 WBC 10.9 H (3.8-10.6) k/uL RBC 3.20 L (3.80-5.40) m/uL Hgb 11.0 L (11.4-16.0) gm/dL Hct 33.3 L (34.0-46.0) % MCV 104.1 H (80.0-100.0) fL Plt Count 86 L (150-450) k/uL Neutrophils # 8.9 H (1.3-7.7) k/uL Lymphocytes # 0.8 L (1.0-4.8) k/uL PT 14.3 H (10.0-12.5) sec INR 1.4 H (<1.2) APTT (22.0-30.0) sec Sodium 136 L (137-145) mmol/L Potassium 3.4 L (3.5-5.1) mmol/L BUN 47 H (7-17) mg/dL Creatinine 1.51 H (0.52-1.04) mg/dL Glucose 114 H (74-99) mg/dL Plasma Lactic Acid Shane (0.7-2.0) mmol/L Total Bilirubin 3.1 H (0.2-1.3) mg/dL Unconjugated Bilirubin 2.5 H (0.0-1.1) mg/dL Delta Bilirubin 0.6 H (0.0-0.2) mg/dL AST 93 H (14-36) U/L ALT 41 H (4-34) U/L Alkaline Phosphatase 169 H (38-126) U/L Troponin I (0.000-0.034) ng/mL Albumin 3.1 L (3.5-5.0) g/dL Urine Glucose (UA) (Negative) Urine Blood (Negative) Ur Leukocyte Esterase (Negative) 06/08/23 06/08/23 06/08/23 Range/Units 04:18 04:18 07:20 WBC (3.8-10.6) k/uL RBC (3.80-5.40) m/uL Hgb (11.4-16.0) gm/dL Hct (34.0-46.0) % MCV (80.0-100.0) fL Plt Count (150-450) k/uL Neutrophils # (1.3-7.7) k/uL Lymphocytes # (1.0-4.8) k/uL PT (10.0-12.5) sec INR (<1.2) APTT (22.0-30.0) sec Sodium (137-145) mmol/L Potassium (3.5-5.1) mmol/L BUN (7-17) mg/dL Creatinine (0.52-1.04) mg/dL Glucose (74-99) mg/dL Plasma Lactic Acid Shane 2.5 H* 3.4 H* (0.7-2.0) mmol/L Total Bilirubin (0.2-1.3) mg/dL Unconjugated Bilirubin (0.0-1.1) mg/dL Delta Bilirubin (0.0-0.2) mg/dL AST (14-36) U/L ALT (4-34) U/L Alkaline Phosphatase (38-126) U/L Troponin I 0.153 H* (0.000-0.034) ng/mL Albumin (3.5-5.0) g/dL Urine Glucose (UA) (Negative) Urine Blood (Negative) Ur Leukocyte Esterase (Negative) 06/08/23 06/08/23 06/08/23 Range/Units 10:36 13:40 22:38 WBC (3.8-10.6) k/uL RBC (3.80-5.40) m/uL Hgb (11.4-16.0) gm/dL Hct (34.0-46.0) % MCV (80.0-100.0) fL Plt Count (150-450) k/uL Neutrophils # (1.3-7.7) k/uL Lymphocytes # (1.0-4.8) k/uL PT (10.0-12.5) sec INR (<1.2) APTT >200.0 H* (22.0-30.0) sec Sodium (137-145) mmol/L Potassium (3.5-5.1) mmol/L BUN (7-17) mg/dL Creatinine (0.52-1.04) mg/dL Glucose (74-99) mg/dL Plasma Lactic Acid Shane (0.7-2.0) mmol/L Total Bilirubin (0.2-1.3) mg/dL Unconjugated Bilirubin (0.0-1.1) mg/dL Delta Bilirubin (0.0-0.2) mg/dL AST (14-36) U/L ALT (4-34) U/L Alkaline Phosphatase (38-126) U/L Troponin I 0.759 H* (0.000-0.034) ng/mL Albumin (3.5-5.0) g/dL Urine Glucose (UA) Trace H (Negative) Urine Blood Trace H (Negative) Ur Leukocyte Esterase Small H (Negative) Assessment and Plan Assessment: Assessment and plan * Acute hypoxic respiratory failure multifactorial secondary to pneumonia and congestive heart failure * Pericholecystic fluid, suspect cholecystitis, hyperbilirubinemia/transaminitis * Elevated troponin with history of left bundle branch block * Bilateral pleural effusions right greater than left * Acute exacerbation of bronchial asthma * History of congestive heart failure diastolic dysfunction with preserved ejection fraction * History of paroxysmal atrial fibrillation * In regards to acute hypoxic respiratory failure multifactorial noted to bilateral pleural effusion suspect multifocal pneumonia, with superimposed CHF. Continue patient on IV antibiotic Rocephin, azithromycin and Flagyl day 2, patient transition from 20 mg Lasix IV twice a day to 1 mg Bumex twice a day for aggressive diuresis * In regards to pericholecystic fluid, suspect acute cholecystitis continue patient nothing by mouth continue IV antibiotic general surgery consulted, HIDA scan ordered * In regards to elevated troponin, serial troponins ordered trending up, continue IV heparin cardiology consulted * In regards to bilateral pleural effusion, acute asthma exacerbation, continue current management with breathing treatments, IV Solu-Medrol pulmonary medicine consulted, continue azithromycin day 2 * In regards to history of congestive heart failure most recent echocardiogram in March 2023 shows preserved ejection fraction, diuretic resumed after lactate levels normalize * In regards to history of paroxysmal atrial fibrillation, patient on Eliquis at home on hold in anticipation of surgical intervention * Patient remains critically ill, needing evaluation from multiple specialities, prognosis remains guarded secondary to underlying comorbidities, age * consultation obtained from Cardiology, General surgery, Pulmonary Medicine * CODE STATUS is full code Time with Patient: Greater than 30
[2023-06-09] MEDS ORDERED: BUMETANIDE 0.25 MG/ML 4 ML VIAL IVP SCH (11:15)
[2023-06-09] MEDS: POTASSIUM CHLORIDE 10 MEQ in WATER FOR INJECTION 1 100ML.BAG IVPB SCH ×2 (11:32→12:43)
--- NOTE | 2023-06-09 12:40 | P.PN ---
Subjective Progress Note Date: 06/09/23 78-year-old. Patient with known history of bronchial asthma, presented to the hospital because of worsening shortness of breath. Limited cough and congestion. She was also febrile prior to her coming into the hospital. 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 The patient also has a component of CHF. Her most recent echocardiogram from 04/15/2023 showed normal LV EF of around 50-55%, moderate left atrial dilatation, normal valvular structures, mild mitral regurgitation. Patient is currently on 4 L of oxygen by nasal cannula, the white cell cause of 10.9 with a hemoglobin of 11, sodium is 136 with a potassium level of 3.4. Her creatinine is currently elevated and currently is at 1.5 with a BUN of 47 and sodium levels of 136. LFTs showed mild elevation of the AST and ALP and the bilirubin level is at 2.5. Troponins are elevated at 0.1 and 0.7 respectively and her proBNP level is at 7820. CAT scan of chest abdomen and pelvis was done and the patient was found to have small bilateral pleural effusi on and some limited resected change in lung bases bilaterally, cholelithiasis with pericholecystic fluid and there is no evidence of any biliary dilatation. Left inguinal hernia containing small bowel loops without any evidence of fasciculation. Large amount of stool within the rectum. The patient's history of any chest pain. Currently she is afebrile and hemodynamically stable. 06/09/2023, the patient is afebrile and hemodynamically stable. She is being diuresed with IV Bumex at a dose of 1 mg every 12 hours.. She is also being treated with a combination of bronchodilators and steroids. She remains on IV heparin. Antibiotic coverage essentially the same and the patient is currently on a combination of Rocephin and Zithromax and Flagyl. In regards to her gallbladder problem, the patient underwent an ultrasound that showed some pericholecystic fluid. HIDA scan is to be obtained tomorrow. No Homans signs. No evidence of an acute cholecystitis based on clinical examination. Neurological exam 0.8, hemoglobin of 9.8, BUN is at 46 with a creatinine of 1.2 and the creatinine is improved compared to yesterday. Sodium is at 135, bilirubin is at 1.9 and AST is at 75 with an ALT of 32. Total protein is at 6.0 with an albumin of 2.3. She remains on oxygen 3 L/m nasal cannula with a pulse ox of 97%. Objective - Vital Signs Vital signs: Vital Signs Temp 99.7 F H 06/09/23 07:43 Pulse 83 06/09/23 07:43 Resp 18 06/09/23 07:43 BP 184/81 06/09/23 07:43 Pulse Ox 95 06/09/23 07:43 FiO2 Intake & Output 06/08/23 06/09/23 06/09/23 18:59 06:59 18:59 Intake Total 62.54 Output Total 600 Balance -537.46 Weight 72.575 kg Intake: Intake, IV Titration 62.54 Amount Heparin Sod,Pork in 0.45% 62.54 NaCl 25,000 unit In 0.45 % NaCl 1 250ml.bag @ 10 UNITS/KG/HR 7.258 mls/hr IV .Q24H [facility] Rx#: [id number] Oral 0 Output: Urine 600 Other: Voiding Method External Catheter External Catheter External Catheter - Exam GENERAL EXAM: Alert, pleasant 78-year-old female, sitting up in a stretcher, on 4 L nasal cannula, fairly comfortable in no apparent distress. HEAD: Normocephalic. EYES: Normal reaction of pupils, equal size. NOSE: Clear with pink turbinates. THROAT: No erythema or exudates. NECK: No masses, no JVD. CHEST: No chest wall deformity. LUNGS: Equal air entry with faint crackles in the posterior bases. CVS: S1 and S2 normal with no audible murmur, regular rhythm. ABDOMEN: No hepatosplenomegaly, normal bowel sounds, no guarding or rigidity. SPINE: No scoliosis or deformity SKIN: No rashes CENTRAL NERVOUS SYSTEM: No focal deficits, tone is normal in all 4 extremities. EXTREMITIES: There is no peripheral edema. No clubbing, no cyanosis. Peripheral pulses are intact. - Labs CBC & Chem 7: 06/09/23 06:51 06/09/23 06:51 Labs: Abnormal Lab Results - Last 24 Hours (Table) 06/08/23 06/08/23 06/08/23 Range/Units 10:36 13:40 22:38 RBC (3.80-5.40) m/uL Hgb (11.4-16.0) gm/dL Hct (34.0-46.0) % MCV (80.0-100.0) fL Plt Count (150-450) k/uL APTT >200.0 H* (22.0-30.0) sec Sodium (137-145) mmol/L Potassium (3.5-5.1) mmol/L Chloride (98-107) mmol/L BUN (7-17) mg/dL Creatinine (0.52-1.04) mg/dL Glucose (74-99) mg/dL Calcium (8.4-10.2) mg/dL Total Bilirubin (0.2-1.3) mg/dL AST (14-36) U/L Alkaline Phosphatase (38-126) U/L Troponin I 0.759 H* (0.000-0.034) ng/mL C-Reactive Protein (<1.0) mg/dL Total Protein (6.3-8.2) g/dL Albumin (3.5-5.0) g/dL Urine Glucose (UA) Trace H (Negative) Urine Blood Trace H (Negative) Ur Leukocyte Esterase Small H (Negative) 06/09/23 06/09/23 Range/Units 06:51 06:51 RBC 2.86 L (3.80-5.40) m/uL Hgb 9.8 L (11.4-16.0) gm/dL Hct 30.3 L (34.0-46.0) % MCV 106.1 H (80.0-100.0) fL Plt Count 80 L (150-450) k/uL APTT (22.0-30.0) sec Sodium 135 L (137-145) mmol/L Potassium 3.4 L (3.5-5.1) mmol/L Chloride 110 H (98-107) mmol/L BUN 46 H (7-17) mg/dL Creatinine 1.27 H (0.52-1.04) mg/dL Glucose 104 H (74-99) mg/dL Calcium 7.7 L (8.4-10.2) mg/dL Total Bilirubin 1.9 H (0.2-1.3) mg/dL AST 75 H (14-36) U/L Alkaline Phosphatase 128 H (38-126) U/L Troponin I (0.000-0.034) ng/mL C-Reactive Protein 7.4 H (<1.0) mg/dL Total Protein 6.0 L (6.3-8.2) g/dL Albumin 2.3 L (3.5-5.0) g/dL Urine Glucose (UA) (Negative) Urine Blood (Negative) Ur Leukocyte Esterase (Negative) Assessment and Plan Plan: Acute hypoxic respiratory failure with development of small bilateral pleural effusions. Consider underlying pneumonia. There may be also a component of CHF contributing to her acute hypoxic respiratory failure and shortness of breath. 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 No Torres's sign. Hyperbilirubinemia with mild elevation of LFTs Hypertension Osteoarthritis Chronic kidney disease stage III, creatinine stable at 1.5, improving and the creatinine dropped down to 1.27 Abnormal troponins, currently on IV heparin Spinal stenosis Plan Titrate oxygen flow to maintain saturation above 90%, currently on 3 L Will give diuretics and I'm going to start the patient on IV Bumex 1 mg every 12 hours Broad-spectrum antibiotic coverage covering cholecystitis and pneumonia and the patient was kept on accommodation of Rocephin and Zithromax and Flagyl, awaiting HIDA scan IV fluids to KVO Continue bronchodilators Continue steroids Ultrasound the gallbladder was noted Monitor LFTs Gen. surgical consultation regarding gallbladder disease is appreciated Check pro calcitonin level Monitor troponins We'll follow
--- NOTE | 2023-06-09 13:19 | P.CRDCN ---
History of Present Illness Consult date: 06/09/23 History of present illness: HISTORY OF PRESENTING ILLNESS 78-year-old female with past medical history of HFpEF, hypertension, inclusion body myositis, obesity, asthma and COPD. She presented to the hospital because of worsening shortness of breath over last 48 hours. On admission she had evidence of elevated troponin of 0.15, 0.7. He also had evidence of mild lactate elevation of 3.4, creatinine of 1.5. CT abdomen showed small bilateral lower lobe infiltrates and mild pulmonary congestion. It also showed evidence of cholelithiasis. Patient is being evaluated for possible gallstone removal and is also getting treatment for COPD exacerbation with steroids. REVIEW OF SYSTEMS 14 point review of system is negative except what is mentioned above in HPI. PHYSICAL EXAMINATION Lungs: Mild crackles in bilateral lung bases Heart: Irregularly irregular, S1-S2 audible. Abdomen: Soft nontender,. Extremities: 1+ pitting edema bilateral lower extremity. Neuro: Alert, oritented, no focal deficits. Detailed neuro exam was not performed ASSESSMENT Acute on chronic hypoxic hypercapnic respiratory failure due to combination of COPD exacerbation and mild HFpEF exacerbation Type II non-STEMI, due to combination of hypoxemia, mild exacerbation Mild HFpEF exacerbation Mod COPD exacerbation Persistent atrial ablation, rate controlled Left bundle-branch block, chronic HALINA, creatinine 1.5. Baseline 1.2 CKD Hypertension Morbid obesity Echo from March showed an EF of 50-55% PLAN IV heparin for 48 hours in total. Continue for next 24 hours. 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 History of Any Multi-Drug Resistant Organisms: None Reported Past Surgical History: Heart Catheterization Additional Past Surgical History / Comment(s): EYE SURGERY DUE TO INJURY, EGD, COLONOSCOPY, BONE MARROW BIOPSY, cataracts, muscle biopsy Past Anesthesia/Blood Transfusion Reactions: No Reported Reaction Past Psychological History: No Psychological Hx Reported Smoking Status: Never smoker Past Alcohol Use History: Occasional Additional Past Alcohol Use History / Comment(s): "1 glass of wine per day most days but not all". Past Drug Use History: None Reported - Past Family History Sister(s) Family Medical History: Cancer Additional Family Medical History / Comment(s): LEUKEMIA- at age 42 Brother(s) Family Medical History: Cancer Additional Family Medical History / Comment(s): with unknown type CA at age 60s Medications and Allergies Home Medications Medication Instructions Recorded Confirmed Type Cyanocobalamin (Vitamin B-12) 1,000 mcg PO DAILY 12/30/20 06/08/23 History [Vitamin B-12] Ferrous Sulfate [Iron (65 MG 325 mg PO HS 12/30/20 06/08/23 History Elemental)] Vit C/E/Zn/Coppr/Lutein/Zeaxan 1 cap PO BID 12/30/20 06/08/23 History [Preservision Areds 2 Softgel] Cholecalciferol (Vitamin D3) 125 mcg PO DAILY 04/25/21 06/08/23 History [Vitamin D3 (125 MCG = 5,000 IU)] Magnesium Oxide [Mag-Ox] 400 mg PO HS 02/04/23 06/08/23 History Metoprolol Succinate (ER) [Toprol 25 mg PO HS #30 tab 04/17/23 06/08/23 Rx XL] Metoprolol Succinate (ER) [Toprol 50 mg PO DAILY #30 tab 04/17/23 06/08/23 Rx XL] Apixaban [Eliquis] 2.5 mg PO DAILY 06/08/23 06/08/23 History Bumetanide [Bumex] 1 mg PO BID 06/08/23 06/08/23 History Folic Acid 1 mg PO DAILY 06/08/23 06/08/23 History Potassium Gluconate 99 mg PO DAILY 06/08/23 06/08/23 History Allergies Allergy/AdvReac Type Severity Reaction Status Date / Time omeprazole [From Prilosec] Allergy Unknown Rash/Hives, Verified 06/08/23 11:58 TONGUE SWELLLING omeprazole magnesium Allergy Unknown Rash/Hives, Verified 06/08/23 11:58 [From Prilosec] TONGUE SWELLLING Penicillins Allergy Unknown Rash/Hives/ Verified 06/08/23 11:58 Itching amlodipine Allergy fide pedal Verified 06/08/23 11:58 edema, loss voice carvedilol Allergy shortness Verified 06/08/23 11:58 of breath lisinopril Allergy Unknown Verified 06/08/23 11:58 Physical Exam Vitals: Vital Signs Temp Pulse Pulse Pulse Resp BP BP 06/09/23 12:00 97.4 F L 85 16 142/77 06/09/23 07:43 99.7 F H 83 93 18 184/81 06/09/23 05:13 85 06/09/23 03:24 99 F 69 20 147/79 06/09/23 00:01 98.4 F 76 18 111/75 06/08/23 20:00 97.9 F 69 20 115/64 06/08/23 17:00 98.7 F 83 16 128/68 06/08/23 16:27 98.9 F 80 18 134/69 06/08/23 15:45 98.7 F 85 16 128/68 06/08/23 15:44 84 18 135/70 Pulse Ox 06/09/23 12:00 97 06/09/23 07:43 95 06/09/23 05:13 06/09/23 03:24 97 06/09/23 00:01 98 06/08/23 20:00 99 06/08/23 17:00 97 06/08/23 16:27 100 06/08/23 15:45 97 06/08/23 15:44 100 Intake and Output 06/08/23 06/09/23 06/09/23 22:59 06:59 14:59 Intake Total 0 62.54 120 Output Total 200 400 Balance -200 -337.46 120 Intake: Intake, IV Titration 62.54 Amount Heparin Sod,Pork in 0.45% 62.54 NaCl 25,000 unit In 0.45 % NaCl 1 250ml.bag @ 10 UNITS/KG/HR 7.258 mls/hr IV .Q24H [facility] Rx#: [id number] Oral 0 120 Output: Urine 200 400 Other: Voiding Method External Catheter External Catheter External Catheter Weight 72.575 kg Results 06/09/23 06:51 06/09/23 06:51 Cardiac Enzymes 06/09/23 Range/Units 06:51 AST 75 H (14-36) U/L Coagulation 06/08/23 06/09/23 Range/Units 22:38 08:18 APTT >200.0 H* 61.6 H (22.0-30.0) sec CBC 06/09/23 Range/Units 06:51 WBC 9.8 (3.8-10.6) k/uL RBC 2.86 L (3.80-5.40) m/uL Hgb 9.8 L (11.4-16.0) gm/dL Hct 30.3 L (34.0-46.0) % Plt Count 80 L (150-450) k/uL Comprehensive Metabolic Panel 06/09/23 Range/Units 06:51 Sodium 135 L (137-145) mmol/L Potassium 3.4 L (3.5-5.1) mmol/L Chloride 110 H (98-107) mmol/L Carbon Dioxide 23 (22-30) mmol/L BUN 46 H (7-17) mg/dL Creatinine 1.27 H (0.52-1.04) mg/dL Glucose 104 H (74-99) mg/dL Calcium 7.7 L (8.4-10.2) mg/dL AST 75 H (14-36) U/L ALT 32 (4-34) U/L Alkaline Phosphatase 128 H (38-126) U/L Total Protein 6.0 L (6.3-8.2) g/dL Albumin 2.3 L (3.5-5.0) g/dL Current Medications Generic Name Dose Route Start Last Admin Trade Name Freq PRN Reason Stop Dose Admin Acetaminophen 650 mg 06/08/23 07:50 Acetaminophen Tab 325 Mg Tab PO Q6HR PRN Mild Pain or Fever > 100.5 Albuterol/Ipratropium 3 ml 06/08/23 08:18 06/09/23 05:10 Ipratropium-Albuterol 3 Ml Neb INHALATION 3 ml RT-Q4H PRN Administration shortness of breath Bumetanide 1 mg 06/09/23 11:15 06/09/23 11:30 Bumetanide 0.25 Mg/Ml 4 Ml Vial IVP 1 mg BID MEÑO Administration Guaifenesin/Codeine Phosphate 10 ml 06/08/23 09:36 Guaifenesin-Coden 100-10mg/5ml 10 Ml Cup PO Q6HR PRN Cough Heparin Sodium (Porcine) 0 unit 06/08/23 15:22 Heparin Sodium 1,000 Un/Ml (10ml Vl) IV PER PROTOCOL PRN Low PTT Protocol Sodium Chloride 1,000 mls @ 10 mls/hr 06/08/23 08:00 06/08/23 09:11 Saline 0.9% IV 130 mls/hr .Q24H MEÑO Administration Azithromycin 500 mg/ Sodium 250 mls @ 250 mls/hr 06/09/23 09:00 06/09/23 09:46 Chloride IVPB 06/10/23 09:59 250 mls/hr DAILY MEÑO Administration Protocol Metronidazole 500 mg/ IV 100 mls @ 100 mls/hr 06/08/23 08:30 06/09/23 07:40 Solution IVPB 100 mls/hr Q8HR MEÑO Administration Protocol Ceftriaxone Sodium 2 gm/ 50 mls @ 100 mls/hr 06/09/23 09:00 06/09/23 09:07 Sodium Chloride IVPB 100 mls/hr Q24HR MEÑO Administration Protocol Heparin Sodium/Sodium Chloride 250 mls @ 7.258 mls/hr 06/08/23 15:30 06/09/23 02:15 25,000 unit/ Sodium Chloride IV 6 units/kg/hr .Q24H MEÑO 4.355 mls/hr Titration Protocol 10 UNITS/KG/HR Methylprednisolone Sodium Succinate 40 mg 06/08/23 16:00 06/09/23 07:57 Methylprednisolone Sod Succi 40 Mg/Ml 1 Ml Vial IV 40 mg Q8HR MEÑO Administration Metoprolol Tartrate 25 mg 06/08/23 23:15 06/09/23 07:40 Metoprolol Tartrate 25 Mg Tab PO 25 mg BID MEÑO Administration Miscellaneous Information 1 each 06/08/23 08:18 Pneumonia Protocol Utilized 1 Each Misc PO ONCE PRN Per Protocol Morphine Sulfate 4 mg 06/08/23 07:50 Morphine Sulfate 4 Mg/Ml Syringe IV Q4HR PRN Severe Pain (Scale 7 to 10) Naloxone HCl 0.2 mg 06/08/23 07:50 Naloxone 0.4 Mg/Ml 1 Ml Vial IV Q2M PRN Opioid Reversal Ondansetron HCl 4 mg 06/08/23 08:18 Ondansetron 4 Mg/2 Ml Vial IVP Q8HR PRN Nausea And Vomiting Intake and Output 06/08/23 06/09/23 06/09/23 22:59 06:59 14:59 Intake Total 0 62.54 120 Output Total 200 400 Balance -200 -337.46 120 Intake: Intake, IV Titration 62.54 Amount Heparin Sod,Pork in 0.45% 62.54 NaCl 25,000 unit In 0.45 % NaCl 1 250ml.bag @ 10 UNITS/KG/HR 7.258 mls/hr IV .Q24H [facility] Rx#: [id number] Oral 0 120 Output: Urine 200 400 Other: Voiding Method External Catheter External Catheter External Catheter Weight 72.575 kg 06/09/23 06:51 06/09/23 06:51
[2023-06-09] MEDS: HEPARIN SOD,PORK IN 0.45% NACL 25,000 UNIT in 0.45% NACL 1 250ML.BAG IV SCH (16:05)
[2023-06-09] MEDS: SODIUM CHLORIDE 0.9% 1,000 ML IV SCH (16:05)
[2023-06-10] MEDS: metroNIDAZOLE-NS PMX 500 MG in SALINE 1 100ML.BAG IVPB SCH ×4 (00:29→23:58)
[2023-06-10] MEDS: methylPREDNISolone SOD SUCCI 40 MG/ML 1 ML VIAL IV SCH ×4 (00:29→23:45)
[2023-06-10 08:36] LABS: HCT 30.2 % (34.0-46.0); HGB 9.9 gm/dL (11.4-16.0); Hypochromasia Slight; MCH 34.5 pg (25.0-35.0); MCHC 32.7 g/dL (31.0-37.0); MCV 105.3 fL (80.0-100.0); Macrocytosis Moderate; Mean Platelet Volume 9.2; RBC 2.86 m/uL (3.80-5.40); RDW 14.4 % (11.5-15.5); WBC 8.3 k/uL (3.8-10.6)
[2023-06-10 08:44] LABS: Platelet Count 86 k/uL (150-450)
--- NOTE | 2023-06-10 09:35 | NM ---
EXAMINATION TYPE: NM hepatobiliary w CCK DATE OF EXAM: 06/10/2023 COMPARISON: Ultrasound 06/16/2023 CLINICAL INDICATION: Female, 78 years old with history of Acute cholecystitis; TECHNIQUE: After the intravenous administration of 4.85 mCi Tc 99m Mebrofenin hepatobiliary scintigra phy is performed. Immediate images post injection. FINDINGS: There is satisfactory initial accumulation of tracer by the liver. However, there is delayed clearan ce from the blood pool with cardiac activity still seen up to around 16 minutes. The gallbladder is v isualized at 20 minutes. The small bowel activity is also noted 26 minutes. At one hour CCK was admin istered, patient was injected with 1.55 mcg of Kinevac, and gallbladder ejection fraction is calculat ed at 59 %, in the normal range. IMPRESSION: 1. Delayed clearance of activity from the blood pool. Findings may be seen with underlying hepatocell ular disease/hepatic dysfunction. Clinically correlate. Consider further workup for underlying cirrho sis. 2. No scintigraphic evidence for acute/chronic cholecystitis or biliary dyskinesia.
[2023-06-10] MEDS: BUMETANIDE 1 MG TAB PO SCH ×2 (09:59→16:31)
[2023-06-10] MEDS: METOPROLOL TARTRATE 25 MG TAB PO SCH ×2 (10:15→19:58)
[2023-06-10 10:21] LABS: African American GFR (CKD) 46 (>60 ml/min/1.73 sqM); Anion Gap 4 mmol/L; Blood Urea Nitrogen 47 mg/dL (7-17); C Reactive Protein 8.1 mg/dL (<1.0); Calcium 7.8 mg/dL (8.4-10.2); Carbon Dioxide 21 mmol/L (22-30); Chloride 111 mmol/L (98-107); Glucose 136 mg/dL (74-99); Non-African American GFR(CKD) 40 (>60 ml/min/1.73 sqM); Potassium 3.8 mmol/L (3.5-5.1); Sodium 136 mmol/L (137-145)
--- NOTE | 2023-06-10 12:04 | P.PN ---
Subjective HISTORY OF PRESENT ILLNESS: This is a 78-year-old female who follows in the office with Dr. Gonzalez. Patient initially presented to the hospital with shortness of breath. She was started on IV diuretics which have since been transitioned to oral. She denies any chest pain or pressure. She denies any shortness of breath. She underwent a HIDA scan this morning with no evidence of acute or chronic cholecystitis. She remains on IV heparin. Most recent echocardiogram performed in March 2023 revealed ejection fraction 50-55% with mild MR and trace TR. Telemetry reveals sinus mechanism with heart rate in the 60s. PHYSICAL EXAM: VITAL SIGNS: Reviewed. GENERAL: Well-developed in no acute distress. NECK: Supple. No JVD or thyromegaly LUNGS: Respirations even and unlabored. Lungs essentially clear to auscultation bilaterally. HEART: Regular rate and rhythm. S1 and S2 heard. Systolic murmur noted. EXTREMITIES: Normal range of motion. No clubbing or cyanosis. Peripheral pulses intact. No lower extremity edema ASSESSMENT: Shortness of breath Acute on chronic heart failure with preserved EF, 50-55%, currently euvolemic Acute COPD exacerbation Cholelithiasis with no evidence of cholecystitis Paroxysmal atrial fibrillation, currently maintaining sinus mechanism Known left bundle-branch block Acute kidney injury, improving Hypertension PLAN: Case discussed with general surgery who states there is no anticipated surgical procedures May discontinue IV heparin and resume Eliquis Continue additional cardiac medications Continue telemetry monitoring Patient is currently stable from a cardiac perspective Further recommendations pending patient's course Nurse practitioner note has been reviewed by physician. Signing provider agrees with the documented findings, assessment, and plan of care. Objective - Vital Signs Vital signs: Vital Signs Temp 98.2 F 06/10/23 09:55 Pulse 56 L 06/10/23 09:55 Resp 16 06/10/23 09:55 BP 125/70 06/10/23 04:00 Pulse Ox 100 06/10/23 04:00 FiO2 Intake & Output 06/09/23 06/10/23 06/10/23 18:59 06:59 18:59 Intake Total 360 135.876 Output Total 200 450 Balance 160 -450 135.876 Weight 77.7 kg Intake: Intake, IV Titration 135.876 Amount Heparin Sod,Pork in 0.45% 135.876 NaCl 25,000 unit In 0.45 % NaCl 1 250ml.bag @ 10 UNITS/KG/HR 7.258 mls/hr IV .Q24H [facility] Rx#: [id number] Oral 360 Output: Urine 200 450 Other: Voiding Method External Catheter External Catheter External Catheter # Voids 1 - Labs CBC & Chem 7: 06/10/23 06:22 06/10/23 06:22 Labs: Abnormal Lab Results - Last 24 Hours (Table) 06/09/23 06/10/23 06/10/23 Range/Units 06:51 06:22 06:22 RBC 2.86 L (3.80-5.40) m/uL Hgb 9.9 L (11.4-16.0) gm/dL Hct 30.2 L (34.0-46.0) % MCV 105.3 H (80.0-100.0) fL Plt Count 86 L (150-450) k/uL APTT (22.0-30.0) sec Sodium 136 L (137-145) mmol/L Chloride 111 H (98-107) mmol/L Carbon Dioxide 21 L (22-30) mmol/L BUN 47 H (7-17) mg/dL Creatinine 1.26 H (0.52-1.04) mg/dL Glucose 136 H (74-99) mg/dL Calcium 7.8 L (8.4-10.2) mg/dL C-Reactive Protein 8.1 H (<1.0) mg/dL Procalcitonin 6.93 H (0.02-0.09) ng/mL 06/10/23 Range/Units 06:22 RBC (3.80-5.40) m/uL Hgb (11.4-16.0) gm/dL Hct (34.0-46.0) % MCV (80.0-100.0) fL Plt Count (150-450) k/uL APTT 70.7 H (22.0-30.0) sec Sodium (137-145) mmol/L Chloride (98-107) mmol/L Carbon Dioxide (22-30) mmol/L BUN (7-17) mg/dL Creatinine (0.52-1.04) mg/dL Glucose (74-99) mg/dL Calcium (8.4-10.2) mg/dL C-Reactive Protein (<1.0) mg/dL Procalcitonin (0.02-0.09) ng/mL Microbiology - Last 24 Hours (Table) 06/08/23 09:07 Blood Culture - Preliminary Blood 06/08/23 08:45 Blood Culture - Preliminary Blood
[2023-06-10] MEDS: APIXABAN 5 MG TAB PO SCH ×2 (13:45→19:58)
--- NOTE | 2023-06-10 14:27 | P.PN ---
Subjective Progress Note Date: 06/10/23 Principal diagnosis: Acute hypoxic respiratory failure with bilateral pleural effusions, suspect acute diastolic congestive heart failure 78-year-old. Patient with known history of bronchial asthma, presented to the hospital because of worsening shortness of breath. Limited cough and congestion. She was also febrile prior to her coming into the hospital. 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 The patient also has a component of CHF. Her most recent echocardiogram from 04/15/2023 showed normal LV EF of around 50-55%, moderate left atrial dilatation, normal valvular structures, mild mitral regurgitation. Patient is currently on 4 L of oxygen by nasal cannula, the white cell cause of 10.9 with a hemoglobin of 11, sodium is 136 with a potassium level of 3.4. Her creatinine is currently elevated and currently is at 1.5 with a BUN of 47 and sodium levels of 136. LFTs showed mild elevation of the AST and ALP and the bilirubin level is at 2.5. Troponins are elevated at 0.1 and 0.7 respectively and her proBNP level is at 7820. CAT scan of chest abdomen and pelvis was done and the patient was found to have small bilateral pleural effusion and some limited resected change in lung bases bilaterally, cholelithiasis with pericholecystic fluid and there is no evidence of any biliary dilatation. Left inguinal hernia containing small bowel loops without any evidence of fasciculation. Large amount of stool within the rectum. The patient's history of any chest pain. Currently she is afebrile and hemodynamically stable. 06/09/2023, the patient is afebrile and hemodynamically stable. She is being diuresed with IV Bumex at a dose of 1 mg every 12 hours.. She is also being treated with a combination of bronchodilators and steroids. She remains on IV heparin. Antibiotic coverage essentially the same and the patient is currently on a combination of Rocephin and Zithromax and Flagyl. In regards to her gallbladder problem, the patient underwent an ultrasound that showed some pericholecystic fluid. HIDA scan is to be obtained tomorrow. No Homans signs. No evidence of an acute cholecystitis based on clinical examination. Neurological exam 0.8, hemoglobin of 9.8, BUN is at 46 with a creatinine of 1.2 and the creatinine is improved compared to yesterday. Sodium is at 135, bilirubin is at 1.9 and AST is at 75 with an ALT of 32. Total protein is at 6.0 with an albumin of 2.3. She remains on oxygen 3 L/m nasal cannula with a pulse ox of 97%. Was reevaluated today on 06/10/23, patient remains to be hemodynamically stable, remains on diuretics receiving Bumex at 1 mg every 12 hours feeling better, breathing easier, workup per acute cholecystitis seems to be negative so far patient remains on antibiotics, including Rocephin and Zithromax and Flagyl, HIDA scan seems to be negative for acute cholecystitis. Patient does not have any abdominal pain no nausea or vomiting. Her WBC count today is 8.3 hemoglobin 9.9. PTT is 70.7 basic metabolic profile is normal renal profile showed a BUN of 47 creatinine 1.26 echocardiogram showed preserved ejection fraction. History-muro the patient does have history of moderate COPD. Echocardiogram from last March showed ejection fraction of 50-55% for her atrial fibrillation, patient remains on heparin. She is also on metoprolol. Cardiology is planning to transition from heparin to eliquis. Objective - Vital Signs Vital signs: Vital Signs Temp 97.4 F L 06/10/23 12:00 Pulse 63 06/10/23 12:00 Resp 16 06/10/23 12:00 BP 156/74 06/10/23 12:00 Pulse Ox 97 06/10/23 12:00 FiO2 Intake & Output 06/09/23 06/10/23 06/10/23 18:59 06:59 18:59 Intake Total 360 135.876 Output Total 200 450 Balance 160 -450 135.876 Weight 77.7 kg Intake: Intake, IV Titration 135.876 Amount Heparin Sod,Pork in 0.45% 135.876 NaCl 25,000 unit In 0.45 % NaCl 1 250ml.bag @ 10 UNITS/KG/HR 7.258 mls/hr IV .Q24H [facility] Rx#: [id number] Oral 360 Output: Urine 200 450 Other: Voiding Method External Catheter External Catheter External Catheter # Voids 1 - Exam Physical Exam: Revealed 78-year-old female in no distress. On 2 L nasal cannula. Head: Atraumatic, normocephalic. HEENT:[Neck is supple.] [No neck masses.] [No thyromegaly.] [No JVD.] Chest: [Diminished breath sounds at the bases no crackles or rhonchi or wheezes Cardiac Exam: [Normal S1 and S2, no S3 gallop, no murmur.] Abdomen: [Soft, nontender, no megaly, no rebound, no guarding, normal bowel sounds.] Extremities: [No clubbing, trace of bipedal edema, no cyanosis.] Neurological Exam: [No focal neurologic deficit.] And oriented 3, nonfocal Psychiatric: Normal mood affect and normal mental status exam. - Labs CBC & Chem 7: 06/10/23 06:22 06/10/23 06:22 Labs: Abnormal Lab Results - Last 24 Hours (Table) 06/10/23 06/10/23 06/10/23 Range/Units 06:22 06:22 06:22 RBC 2.86 L (3.80-5.40) m/uL Hgb 9.9 L (11.4-16.0) gm/dL Hct 30.2 L (34.0-46.0) % MCV 105.3 H (80.0-100.0) fL Plt Count 86 L (150-450) k/uL APTT 70.7 H (22.0-30.0) sec Sodium 136 L (137-145) mmol/L Chloride 111 H (98-107) mmol/L Carbon Dioxide 21 L (22-30) mmol/L BUN 47 H (7-17) mg/dL Creatinine 1.26 H (0.52-1.04) mg/dL Glucose 136 H (74-99) mg/dL Calcium 7.8 L (8.4-10.2) mg/dL C-Reactive Protein 8.1 H (<1.0) mg/dL Microbiology - Last 24 Hours (Table) 06/08/23 09:07 Blood Culture - Preliminary Blood 06/08/23 08:45 Blood Culture - Preliminary Blood Assessment and Plan Assessment: Impression: Acute hypoxic respiratory failure secondary to mild diastolic congestive heart failure, Bilateral pleural effusions secondary to acute diastolic congestive heart failure Acute exacerbation of bronchial asthma, seems to be presently inactive Paroxysmal atrial fibrillation Pericholecystic fluid, but no evidence of cholecystitis. Recommendation: Continue diuretics Continue bronchodilators Continue antibiotics empirically Continue heparin and transition to eliquis We will continue to follow Time with Patient: Less than 30
--- NOTE | 2023-06-10 14:33 | P.PN ---
Subjective Progress Note Date: 06/10/23 CHIEF COMPLAINT: Shortness of breath HISTORY OF PRESENT ILLNESS: Surgical service following in regards to possible acute cholecystitis. Patient had a HIDA scan completed today that showed no evidence for acute/chronic cholecystitis or biliary dyskinesia. Did report delayed clearance of activity from the blood pool. Findings may be seen with underlying hepatocellular disease/hepatic dysfunction. Patient denies any abdominal pain. Denies any nausea or vomiting. Patient followed by cardiology and pulmonary service for COPD, CHF non-ST elevated [place] type II. Afebrile. WBC 8.3 Hgb 9.9 and platelets 86 PHYSICAL EXAM: VITAL SIGNS: Reviewed. GENERAL: Well-developed in no acute distress. ABDOMEN: Soft. Nondistended. Nontender. NEUROLOGIC: Alert and oriented. Cranial nerves II through XII grossly intact. ASSESSMENT: 1. Cholelithiasis. No evidence of Acute cholecystitis on HIDA 2. Possible chronic cholecystitis PLAN: -No surgical intervention planned -Advance diet to regular Physician Packer Operator Automatic note has been reviewed by physician. Signing provider agrees with the documented findings, assessment, and plan of care. Objective - Vital Signs Vital signs: Vital Signs Temp 97.4 F L 06/10/23 12:00 Pulse 63 06/10/23 12:00 Resp 16 06/10/23 12:00 BP 156/74 06/10/23 12:00 Pulse Ox 97 06/10/23 12:00 FiO2 Intake & Output 06/09/23 06/10/23 06/10/23 18:59 06:59 18:59 Intake Total 360 135.876 Output Total 200 450 Balance 160 -450 135.876 Weight 77.7 kg Intake: Intake, IV Titration 135.876 Amount Heparin Sod,Pork in 0.45% 135.876 NaCl 25,000 unit In 0.45 % NaCl 1 250ml.bag @ 10 UNITS/KG/HR 7.258 mls/hr IV .Q24H [facility] Rx#: [id number] Oral 360 Output: Urine 200 450 Other: Voiding Method External Catheter External Catheter External Catheter # Voids 1 - Labs CBC & Chem 7: 06/10/23 06:22 06/10/23 06:22 Labs: Abnormal Lab Results - Last 24 Hours (Table) 06/10/23 06/10/23 06/10/23 Range/Units 06:22 06:22 06:22 RBC 2.86 L (3.80-5.40) m/uL Hgb 9.9 L (11.4-16.0) gm/dL Hct 30.2 L (34.0-46.0) % MCV 105.3 H (80.0-100.0) fL Plt Count 86 L (150-450) k/uL APTT 70.7 H (22.0-30.0) sec Sodium 136 L (137-145) mmol/L Chloride 111 H (98-107) mmol/L Carbon Dioxide 21 L (22-30) mmol/L BUN 47 H (7-17) mg/dL Creatinine 1.26 H (0.52-1.04) mg/dL Glucose 136 H (74-99) mg/dL Calcium 7.8 L (8.4-10.2) mg/dL C-Reactive Protein 8.1 H (<1.0) mg/dL Microbiology - Last 24 Hours (Table) 06/08/23 09:07 Blood Culture - Preliminary Blood 06/08/23 08:45 Blood Culture - Preliminary Blood
[2023-06-10] MEDS: AZITHROMYCIN 500 MG in SODIUM CHLORIDE 0.9% 250 ML IVPB SCH (16:31)
[2023-06-10] MEDS: SODIUM CHLORIDE 0.9% 1,000 ML IV SCH (19:04)
--- NOTE | 2023-06-11 06:07 | P.PN ---
Subjective Progress Note Date: 06/10/23 * 78-year-old patient with past medical history significant for bronchial asthma, congestive heart failure diastolic dysfunction, hypertension, history of inclusion body myositis presents to the emergency department with complains of shortness of breath ongoing for the last 48 hours. Patient had been co mplaining of associated fever. Workup initiated in ED included CBC which were WBC count of 10.9 hemoglobin 11 platelet count of 86 INR of 1.4 * Serum chemistry shows sodium 136 potassium 3.4 BU and 47 creatinine 1.51 lactate obtained on admission 2.5, follow-up lactate 3.4 * Initial troponin obtained 0.153, EKG obtained in ER showed sinus rhythm with sciatic baseline, he which showed complexes were noted as well * Chest x-ray obtained in ED showed diffuse infiltrates bilaterally, patient was noted to have an N-terminal proBNP of 72 0 * Patient tested negative for influenza, RSV and Covid * CT abdomen and pelvis obtained showed bilateral lower lobe infiltrates and pleural effusions right greater than left evidence of cholelithiasis and pericholecystic fluid suspicion for acute cholecystitis large amount of stool within the rectum was noted * Patient was noted to be febrile in ER, started on IV antibiotics, blood cultures requested and given 1 L of fluid bolus caution with excessive hydration due to pulmonary vascular congestion consultations obtained from general surgery, pulmonary medicine and cardiology 06/09/2023: Patient seen and evaluated bedside, patient does complain of shortness of breath, patient says breathing has worsened, chest x-ray obtained today does show some improvement. Patient remains on 2 L of oxygen, noted to be hypotensive, continue patient on IV Solu-Medrol, pulmonary medicine following, general surgery following. Considering patient has been on Bumex at home will transition to IV Bumex, continue to monitor intake and output 06/10/2023 Patient is seen in follow-up this morning currently on 2 L of oxygen with general surgery, pulmonary, cardiology following. Patient underwent HIDA scan today which was negative maintained on antibiotics in the form of ceftriaxone and Flagyl. No plans for surgical intervention. Patient was continued on IV heparin although will transition to oral anticoagulation with cardiology following. Patient has been transition to oral Bumex and will continue. Patient with generalized weakness. Will have physical therapy evaluate the patient. Patient is currently afebrile with no reported chest pain or palpitations. Diet is being advanced per surgery. Review of systems: Constitutional: No reports of fatigue, fever, or chills Cardiovascular: No reports of chest pain or palpitations Respiratory: reports of shortness of breath although feels is improving GI: No reports of nausea, vomiting, or diarrhea, denies any abdominal pain reports to feeling hungry : No reports of dysuria or retention Neurovascular: reports of generalized weakness All medications have been reviewed PHYSICAL EXAMINATION: GENERAL: The patient is alert and oriented x3, ill appearance, nasal cannula in place HEENT: Pupils are round and equally reacting to light. EOMI Normocephalic, atraumatic. No pharyngeal erythema. No thyromegaly. CARDIOVASCULAR: S1 and S2 present. No murmurs, rubs, or gallops. PULMONARY: Decreased breath sounds bilaterally, rhonchi audible ABDOMEN: Soft, nontender, nondistended, normoactive bowel sounds. No palpable organomegaly. Torres's sign negative MUSCULOSKELETAL: Lower extremity edema noted EXTREMITIES: No cyanosis, clubbing, or pedal edema. NEUROLOGICAL: Gross neurological examination did not reveal any focal deficits. SKIN: No rashes. Assessment: Acute hypoxic respiratory failure multifactorial secondary to pneumonia, community-acquired and congestive heart failure Pericholecystic fluid, suspect cholecystitis, hyperbilirubinemia/transaminitis, HIDA scan negative, possibly chronic cholelithiasis Elevated troponin with known history of left bundle branch block, ACS ruled out Bilateral pleural effusions right greater than left Acute exacerbation of bronchial asthma History of congestive heart failure diastolic dysfunction with preserved ejection fraction History of paroxysmal atrial fibrillation, currently on IV heparin GI prophylaxis DVT prophylaxis Full code Plan: * In regards to acute hypoxic respiratory failure multifactorial noted to bilateral pleural effusion suspect community-acquired pneumonia, with superimposed CHF. Continue patient on IV antibiotic Rocephin, azithromycin and Flagyl, continued on oral Bumex twice a day with cardiology following. Wean FiO2 as tolerated * In regards to pericholecystic fluid, HIDA scan was negative, possibly chronic cholelithiasis. Patient denies any abdominal pain, nausea and reports to feeling hungry * In regards to elevated troponin, ACS ruled out per cardiology and IV heparin being discontinued and being transition to oral anticoagulant * In regards to bilateral pleural effusion, acute asthma exacerbation, continue current management with breathing treatments, IV Solu-Medrol pulmonary following, continue antibiotics * In regards to history of congestive heart failure most recent echocardiogram in March 2023 shows preserved ejection fraction, diuretic resumed * In regards to history of paroxysmal atrial fibrillation, patient on Eliquis at home and will be resumed and IV heparin discontinued * Patient remains critically ill, needing evaluation from multiple specialities, prognosis remains guarded secondary to underlying comorbidities, age * Patient with generalized weakness will have PT/OT therapy evaluate the patient The impression and plan of care has been dictated by Kailey Bates, Nurse Practitioner as directed. Dr. Tarah MD I have performed a history and examination and MDM of this patient, discussed the same with the dictator, and agree with the dictator's assessment and plan as written ,documented as a scribe. Based on total visit time, I have performed more than 50% of the visit. Objective - Vital Signs Vital signs: Vital Signs Temp 98 F 06/10/23 04:00 Pulse 59 L 06/10/23 04:00 Resp 16 06/10/23 04:00 BP 125/70 06/10/23 04:00 Pulse Ox 100 06/10/23 04:00 FiO2 Intake & Output 06/09/23 06/10/23 06/10/23 18:59 06:59 18:59 Intake Total 360 135.876 Output Total 200 450 Balance 160 -450 135.876 Weight 77.7 kg Intake: Intake, IV Titration 135.876 Amount Heparin Sod,Pork in 0.45% 135.876 NaCl 25,000 unit In 0.45 % NaCl 1 250ml.bag @ 10 UNITS/KG/HR 7.258 mls/hr IV .Q24H [facility] Rx#: [id number] Oral 360 Output: Urine 200 450 Other: Voiding Method External Catheter External Catheter # Voids 1 - Labs CBC & Chem 7: 06/10/23 06:22 06/10/23 06:22 Labs: Abnormal Lab Results - Last 24 Hours (Table) 06/09/23 06/09/23 06/10/23 Range/Units 06:51 08:18 06:22 RBC 2.86 L (3.80-5.40) m/uL Hgb 9.9 L (11.4-16.0) gm/dL Hct 30.2 L (34.0-46.0) % MCV 105.3 H (80.0-100.0) fL Plt Count 86 L (150-450) k/uL APTT 61.6 H (22.0-30.0) sec Procalcitonin 6.93 H (0.02-0.09) ng/mL 06/10/23 Range/Units 06:22 RBC (3.80-5.40) m/uL Hgb (11.4-16.0) gm/dL Hct (34.0-46.0) % MCV (80.0-100.0) fL Plt Count (150-450) k/uL APTT 70.7 H (22.0-30.0) sec Procalcitonin (0.02-0.09) ng/mL Microbiology - Last 24 Hours (Table) 06/08/23 09:07 Blood Culture - Preliminary Blood 06/08/23 08:45 Blood Culture - Preliminary Blood
[2023-06-11] MEDS: metroNIDAZOLE-NS PMX 500 MG in SALINE 1 100ML.BAG IVPB SCH ×3 (08:20→23:20)
[2023-06-11] MEDS: METOPROLOL TARTRATE 25 MG TAB PO SCH ×2 (08:20→20:14)
[2023-06-11] MEDS: BUMETANIDE 1 MG TAB PO SCH ×2 (08:20→16:03)
[2023-06-11] MEDS: SODIUM CHLORIDE 0.9% 1,000 ML IV SCH (08:21)
[2023-06-11] MEDS: APIXABAN 5 MG TAB PO SCH ×2 (08:21→20:14)
[2023-06-11] MEDS: methylPREDNISolone SOD SUCCI 40 MG/ML 1 ML VIAL IV SCH (08:21)
[2023-06-11 08:46] LABS: ALT 35 U/L (4-34); AST 69 U/L (14-36); African American GFR (CKD) 47 (>60 ml/min/1.73 sqM); Albumin 2.1 g/dL (3.5-5.0); Alkaline Phosphatase 136 U/L (38-126); Anion Gap 6 mmol/L; Blood Urea Nitrogen 51 mg/dL (7-17); Calcium 7.6 mg/dL (8.4-10.2); Carbon Dioxide 21 mmol/L (22-30); Chloride 112 mmol/L (98-107); Glucose 142 mg/dL (74-99); Non-African American GFR(CKD) 41 (>60 ml/min/1.73 sqM); Potassium 3.3 mmol/L (3.5-5.1); Sodium 139 mmol/L (137-145); Total Bilirubin 1.4 mg/dL (0.2-1.3); Total Protein 5.6 g/dL (6.3-8.2)
--- NOTE | 2023-06-11 09:32 | P.PN ---
Subjective HISTORY OF PRESENT ILLNESS: This is a 78-year-old female who follows in the office with Dr. Gonzalez. Patient initially presented to the hospital with shortness of breath. She was started on IV diuretics which have since been transitioned to oral. She denies any chest pain or pressure. She denies any shortness of breath. She underwent a HIDA scan this morning with no evidence of acute or chronic cholecystitis. She remains on IV heparin. Most recent echocardiogram performed in March 2023 revealed ejection fraction 50-55% with mild MR and trace TR. Telemetry reveals sinus mechanism with heart rate in the 60s. June 11, 2022 Patient examined this morning at bedside. Patient denies chest pain or pressure. She denies shortness of breath. Vital signs are stable. Telemetry reveals sinus mechanism. Blood pressure stable with a recent reading of 143/76. She is on room air with oxygen saturations greater than 92%. PHYSICAL EXAM: VITAL SIGNS: Reviewed. GENERAL: Well-developed in no acute distress. NECK: Supple. No JVD or thyromegaly LUNGS: Respirations even and unlabored. Lungs essentially clear to auscultation bilaterally. HEART: Regular rate and rhythm. S1 and S2 heard. Systolic murmur noted. EXTREMITIES: Normal range of motion. No clubbing or cyanosis. Peripheral pulse s intact. No lower extremity edema ASSESSMENT: Shortness of breath Acute on chronic heart failure with preserved EF, 50-55%, currently euvolemic Acute COPD exacerbation Cholelithiasis with no evidence of cholecystitis Paroxysmal atrial fibrillation, currently maintaining sinus mechanism Known left bundle-branch block Acute kidney injury, improving Hypertension PLAN: Continue current cardiac medications Patient is currently stable for discharge from a cardiac standpoint We will follow on an as-needed basis. Please call questions or concerns. Nurse practitioner note has been reviewed by physician. Signing provider agrees with the documented findings, assessment, and plan of care. Objective - Vital Signs Vital signs: Vital Signs Temp 97.6 F 06/11/23 07:53 Pulse 69 06/11/23 07:53 Resp 16 06/11/23 07:53 BP 143/76 06/11/23 07:53 Pulse Ox 95 06/11/23 07:53 FiO2 Intake & Output 06/10/23 06/11/23 06/11/23 18:59 06:59 18:59 Intake Total 851.876 368 Output Total 400 500 Balance 451.876 -500 368 Weight 78.2 kg Intake: IV 10 Invasive Line 2 10 Intake, IV Titration 135.876 Amount Heparin Sod,Pork in 0.45% 135.876 NaCl 25,000 unit In 0.45 % NaCl 1 250ml.bag @ 10 UNITS/KG/HR 7.258 mls/hr IV .Q24H [facility] Rx#: [id number] Oral 716 [id number] Output: Urine 400 500 Other: Voiding Method External Catheter External Catheter - Labs CBC & Chem 7: 06/10/23 06:22 06/11/23 06:36 Labs: Abnormal Lab Results - Last 24 Hours (Table) 06/10/23 06/11/23 Range/Units 06:22 06:36 Sodium 136 L (137-145) mmol/L Potassium 3.3 L (3.5-5.1) mmol/L Chloride 111 H 112 H (98-107) mmol/L Carbon Dioxide 21 L 21 L (22-30) mmol/L BUN 47 H 51 H (7-17) mg/dL Creatinine 1.26 H 1.25 H (0.52-1.04) mg/dL Glucose 136 H 142 H (74-99) mg/dL Calcium 7.8 L 7.6 L (8.4-10.2) mg/dL Total Bilirubin 1.4 H (0.2-1.3) mg/dL AST 69 H (14-36) U/L ALT 35 H (4-34) U/L Alkaline Phosphatase 136 H (38-126) U/L C-Reactive Protein 8.1 H (<1.0) mg/dL Total Protein 5.6 L (6.3-8.2) g/dL Albumin 2.1 L (3.5-5.0) g/dL Microbiology - Last 24 Hours (Table) 06/08/23 09:07 Blood Culture - Preliminary Blood 06/08/23 08:45 Blood Culture - Preliminary Blood
[2023-06-11] MEDS ORDERED: POTASSIUM CHLORIDE ER 20 MEQ TAB.ER PO STA (11:43)
--- NOTE | 2023-06-11 12:42 | P.PN ---
Subjective Progress Note Date: 06/11/23 CHIEF COMPLAINT: Shortness of breath HISTORY OF PRESENT ILLNESS: Surgical service following in regards to possible acute cholecystitis. Patient had a HIDA scan completed today that showed no evidence for acute/chronic cholecystitis or biliary dyskinesia. Did report delayed clearance of activity from the blood pool. Findings may be seen with underlying hepatocellular disease/hepatic dysfunction. Patient denies any RUQ abdominal pain. Denies any nausea or vomiting. patient reports having bowel mo vements. She did report mild upset stomach and the epigastric area.Patient followed by cardiology and pulmonary service for COPD, CHF non-ST elevated [place] type II. Afebrile. total bili is down from 1.9 1.4 AST 69 ALT 35 alk phos 136 K 3.3 PHYSICAL EXAM: VITAL SIGNS: Reviewed. GENERAL: Well-developed in no acute distress. ABDOMEN: Soft. Nondistended. Nontender. NEUROLOGIC: Alert and oriented. Cranial nerves II through XII grossly intact. ASSESSMENT: 1. Cholelithiasis. No evidence of Acute cholecystitis on HIDA 2. Possible chronic cholecystitis 3. Hypokalemia PLAN: -No surgical intervention planned -Will continue to follow -Continue regular diet -Replace potassium -ok to resume Eliquis -Patient can be discharged from surgical standpoint when medically cleared Physician Appellate Court Clerk note has been reviewed by physician. Signing provider agrees with the documented findings, assessment, and plan of care. Objective - Vital Signs Vital signs: Vital Signs Temp 97.6 F 06/11/23 07:53 Pulse 69 06/11/23 07:53 Resp 16 06/11/23 07:53 BP 143/76 06/11/23 07:53 Pulse Ox 95 06/11/23 07:53 FiO2 Intake & Output 06/10/23 06/11/23 06/11/23 18:59 06:59 18:59 Intake Total 851.876 518 Output Total 400 500 Balance 451.876 -500 518 Weight 78.2 kg Intake: IV 10 Invasive Line 2 10 Intake, IV Titration 135.876 150 Amount Heparin Sod,Pork in 0.45% 135.876 NaCl 25,000 unit In 0.45 % NaCl 1 250ml.bag @ 10 UNITS/KG/HR 7.258 mls/hr IV .Q24H [facility] Rx#: [id number] cefTRIAXone 2 gm In 50 Sodium Chloride 0.9% 50 ml @ 100 mls/hr IVPB Q24HR [facility] Rx#:[id number]-NS PMX 500 100 mg In Saline 1 100ml.bag @ 100 mls/hr IVPB Q8HR [facility] Rx#:[id number] Oral [id number] [id number] Output: Urine 400 500 Other: Voiding Method External Catheter External Catheter External Catheter - Labs CBC & Chem 7: 06/10/23 06:22 06/11/23 06:36 Labs: Abnormal Lab Results - Last 24 Hours (Table) 06/11/23 Range/Units 06:36 Potassium 3.3 L (3.5-5.1) mmol/L Chloride 112 H (98-107) mmol/L Carbon Dioxide 21 L (22-30) mmol/L BUN 51 H (7-17) mg/dL Creatinine 1.25 H (0.52-1.04) mg/dL Glucose 142 H (74-99) mg/dL Calcium 7.6 L (8.4-10.2) mg/dL Total Bilirubin 1.4 H (0.2-1.3) mg/dL AST 69 H (14-36) U/L ALT 35 H (4-34) U/L Alkaline Phosphatase 136 H (38-126) U/L Total Protein 5.6 L (6.3-8.2) g/dL Albumin 2.1 L (3.5-5.0) g/dL Microbiology - Last 24 Hours (Table) 06/08/23 09:07 Blood Culture - Preliminary Blood 06/08/23 08:45 Blood Culture - Preliminary Blood
--- NOTE | 2023-06-11 13:06 | P.PN ---
Subjective Progress Note Date: 06/11/23 Principal diagnosis: Acute hypoxic respiratory failure with bilateral pleural effusions, suspect acute diastolic congestive heart failure 78-year-old. Patient with known history of bronchial asthma, presented to the hospital because of worsening shortness of breath. Limited cough and congestion. She was also febrile prior to her coming into the hospital. 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 The patient also has a component of CHF. Her most recent echocardiogram from 04/15/2023 showed normal LV EF of around 50-55%, moderate left atrial dilatation, normal valvular structures, mild mitral regurgitation. Patient is currently on 4 L of oxygen by nasal cannula, the white cell cause of 10.9 with a hemoglobin of 11, sodium is 136 with a potassium level of 3.4. Her creatinine is currently elevated and currently is at 1.5 with a BUN of 47 and sodium levels of 136. LFTs showed mild elevation of the AST and ALP and the bilirubin level is at 2.5. Troponins are elevated at 0.1 and 0.7 respectively and her proBNP level is at 7820. CAT scan of chest abdomen and pelvis was done and the patient was found to have small bilateral pleural effusion and some limited resected change in lung bases bilaterally, cholelithiasis with pericholecystic fluid and there is no evidence of any biliary dilatation. Left inguinal hernia containing small bowel loops without any evidence of fasciculation. Large amount of stool within the rectum. The patient's history of any chest pain. Currently she is afebrile and hemodynamically stable. 06/09/2023, the patient is afebrile and hemodynamically stable. She is being diuresed with IV Bumex at a dose of 1 mg every 12 hours.. She is also being treated with a combination of bronchodilators and steroids. She remains on IV heparin. Antibiotic coverage essentially the same and the patient is currently on a combination of Rocephin and Zithromax and Flagyl. In regards to her gallbladder problem, the patient underwent an ultrasound that showed some pericholecystic fluid. HIDA scan is to be obtained tomorrow. No Homans signs. No evidence of an acute cholecystitis based on clinical examination. Neurological exam 0.8, hemoglobin of 9.8, BUN is at 46 with a creatinine of 1.2 and the creatinine is improved compared to yesterday. Sodium is at 135, bilirubin is at 1.9 and AST is at 75 with an ALT of 32. Total protein is at 6.0 with an albumin of 2.3. She remains on oxygen 3 L/m nasal cannula with a pulse ox of 97%. Was reevaluated today on 06/10/23, patient remains to be hemodynamically stable, remains on diuretics receiving Bumex at 1 mg every 12 hours feeling better, breathing easier, workup per acute cholecystitis seems to be negative so far patient remains on antibiotics, including Rocephin and Zithromax and Flagyl, HIDA scan seems to be negative for acute cholecystitis. Patient does not have any abdominal pain no nausea or vomiting. Her WBC count today is 8.3 hemoglobin 9.9. PTT is 70.7 basic metabolic profile is normal renal profile showed a BUN of 47 creatinine 1.26 echocardiogram showed preserved ejection fraction. History-muro the patient does have history of moderate COPD. Echocardiogram from last March showed ejection fraction of 50-55% for her atrial fibrillation, patient remains on heparin. She is also on metoprolol. Cardiology is planning to transition from heparin to eliquis. Patient was today on 06/11/2023, patient is doing well, remains on diuretics, breathing a lot easier, she has no cough no wheezing and no shortness of breath. Patient is on room air, O2 saturation 96%, she has no active pulmonary symptoms. She was cleared by cardiology for discharge, patient was seen by surgery, and no surgical intervention is felt to be necessary. Her basic metabolic profile is normal potassium is a bit low at 3.3 BUN is 51 creatinine 1.25 Objective - Vital Signs Vital signs: Vital Signs Temp 97.8 F 06/11/23 11:50 Pulse 66 06/11/23 11:50 Resp 18 06/11/23 11:50 BP 157/76 06/11/23 11:50 Pulse Ox 96 06/11/23 11:50 FiO2 Intake & Output 06/10/23 06/11/23 06/11/23 18:59 06:59 18:59 Intake Total 851.876 518 Output Total 400 500 Balance 451.876 -500 518 Weight 78.2 kg Intake: IV 10 Invasive Line 2 10 Intake, IV Titration 135.876 150 Amount Heparin Sod,Pork in 0.45% 135.876 NaCl 25,000 unit In 0.45 % NaCl 1 250ml.bag @ 10 UNITS/KG/HR 7.258 mls/hr IV .Q24H [facility] Rx#: [id number] cefTRIAXone 2 gm In 50 Sodium Chloride 0.9% 50 ml @ 100 mls/hr IVPB Q24HR [facility] Rx#:[id number] metroNIDAZOLE-NS PMX 500 100 mg In Saline 1 100ml.bag @ 100 mls/hr IVPB Q8HR [facility] Rx#:[id number] Oral 716 358 Output: Urine 400 500 Other: Voiding Method External Catheter External Catheter External Catheter - Exam Physical Exam: Revealed 78-year-old female in no distress. On room air. Head: Atraumatic, normocephalic. HEENT:[Neck is supple.] [No neck masses.] [No thyromegaly.] [No JVD.] Chest: [Diminished breath sounds at the bases no crackles or rhonchi or wheezes Cardiac Exam: [Normal S1 and S2, no S3 gallop, no murmur.] Abdomen: [Soft, nontender, no megaly, no rebound, no guarding, normal bowel sounds.] Extremities: [No clubbing, no edema, no cyanosis Neurological Exam: [No focal neurologic deficit.] And oriented 3, nonfocal Psychiatric: Normal mood affect and normal mental status exam. - Labs CBC & Chem 7: 06/10/23 06:22 06/11/23 06:36 Labs: Abnormal Lab Results - Last 24 Hours (Table) 06/11/23 Range/Units 06:36 Potassium 3.3 L (3.5-5.1) mmol/L Chloride 112 H (98-107) mmol/L Carbon Dioxide 21 L (22-30) mmol/L BUN 51 H (7-17) mg/dL Creatinine 1.25 H (0.52-1.04) mg/dL Glucose 142 H (74-99) mg/dL Calcium 7.6 L (8.4-10.2) mg/dL Total Bilirubin 1.4 H (0.2-1.3) mg/dL AST 69 H (14-36) U/L ALT 35 H (4-34) U/L Alkaline Phosphatase 136 H (38-126) U/L Total Protein 5.6 L (6.3-8.2) g/dL Albumin 2.1 L (3.5-5.0) g/dL Microbiology - Last 24 Hours (Table) 06/08/23 09:07 Blood Culture - Preliminary Blood 06/08/23 08:45 Blood Culture - Preliminary Blood Assessment and Plan Assessment: Impression: Acute hypoxic respiratory failure secondary to mild diastolic congestive heart failure, Bilateral pleural effusions secondary to acute diastolic congestive heart failure Acute exacerbation of bronchial asthma, seems to be presently inactive Paroxysmal atrial fibrillation Pericholecystic fluid, but no evidence of cholecystitis. Recommendation: Continue diuretics, patient is now on oral Bumex Continue bronchodilators, continue prednisone 3 0 mg daily and taper on outpatient basis. Discontinue antibiotics. Continue eliquis Clear for discharge if cleared by other consultants We will continue to follow Time with Patient: Less than 30
--- NOTE | 2023-06-12 04:37 | P.PN ---
Subjective Progress Note Date: 06/11/23 * 78-year-old patient with past medical history significant for bronchial asthma, congestive heart failure diastolic dysfunction, hypertension, history of inclusion body myositis presents to the emergency department with complains of shortness of breath ongoing for the last 48 hours. Patient had been co mplaining of associated fever. Workup initiated in ED included CBC which were WBC count of 10.9 hemoglobin 11 platelet count of 86 INR of 1.4 * Serum chemistry shows sodium 136 potassium 3.4 BU and 47 creatinine 1.51 lactate obtained on admission 2.5, follow-up lactate 3.4 * Initial troponin obtained 0.153, EKG obtained in ER showed sinus rhythm with sciatic baseline, he which showed complexes were noted as well * Chest x-ray obtained in ED showed diffuse infiltrates bilaterally, patient was noted to have an N-terminal proBNP of 72 0 * Patient tested negative for influenza, RSV and Covid * CT abdomen and pelvis obtained showed bilateral lower lobe infiltrates and pleural effusions right greater than left evidence of cholelithiasis and pericholecystic fluid suspicion for acute cholecystitis large amount of stool within the rectum was noted * Patient was noted to be febrile in ER, started on IV antibiotics, blood cultures requested and given 1 L of fluid bolus caution with excessive hydration due to pulmonary vascular congestion consultations obtained from general surgery, pulmonary medicine and cardiology 06/09/2023: Patient seen and evaluated bedside, patient does complain of shortness of breath, patient says breathing has worsened, chest x-ray obtained today does show some improvement. Patient remains on 2 L of oxygen, noted to be hypotensive, continue patient on IV Solu-Medrol, pulmonary medicine following, general surgery following. Considering patient has been on Bumex at home will transition to IV Bumex, continue to monitor intake and output 06/10/2023 Patient is seen in follow-up this morning currently on 2 L of oxygen with general surgery, pulmonary, cardiology following. Patient underwent HIDA scan today which was negative maintained on antibiotics in the form of ceftriaxone and Flagyl. No plans for surgical intervention. Patient was continued on IV heparin although will transition to oral anticoagulation with cardiology following. Patient has been transition to oral Bumex and will continue. Patient with generalized weakness. Will have physical therapy evaluate the patient. Patient is currently afebrile with no reported chest pain or palpitations. Diet is being advanced per surgery. 06/11/2023 Patient is seen in follow-up this morning has weaned off oxygen currently on room air with multiple medical consultations following. Cardiology has cleared the patient for discharge with close outpatient follow-up. General surgery evaluated the patient with no plans of surgical intervention at this time and patient is tolerating diet. Patient was continued on antibiotics although being discontinued and has also been transition to oral eliquis. Patient continues with weakness and will have physical therapy evaluate the patient as patient plans on returning home with . Patient is afebrile with no reported chest pain or shortness of breath. Encouraged to increase activity as tolerated. Review of systems: Constitutional: No reports of fatigue, fever, or chills Cardiovascular: No reports of chest pain or palpitations Respiratory: reports of improvement in shortness of breath and is on room air GI: No reports of nausea, vomiting, or diarrhea, denies any abdominal pain, reports tolerating diet : No reports of dysuria or retention Neurovascular: reports of generalized weakness All medications have been reviewed PHYSICAL EXAMINATION: GENERAL: The patient is alert and oriented x3, ill appearance, on room air HEENT: Pupils are round and equally reacting to light. EOMI Normocephalic, atraumatic. No pharyngeal erythema. No thyromegaly. CARDIOVASCULAR: S1 and S2 present. No murmurs, rubs, or gallops. PULMONARY: Decreased breath sounds bilaterally, some scattered rhonchi noted ABDOMEN: Soft, nontender, nondistended, normoactive bowel sounds. No palpable organomegaly. Torres's sign negative MUSCULOSKELETAL: Lower extremity edema noted EXTREMITIES: No cyanosis, clubbing, or pedal edema. NEUROLOGICAL: Gross neurological examination did not reveal any focal deficits. Diffusely weak SKIN: No rashes. Assessment: Acute hypoxic respiratory failure multifactorial secondary to pneumonia, community-acquired and congestive heart failure Pericholecystic fluid, suspect cholecystitis, hyperbilirubinemia/transaminitis, HIDA scan negative, possibly chronic cholelithiasis Elevated troponin with known history of left bundle branch block, ACS ruled out Bilateral pleural effusions right greater than left Acute exacerbation of bronchial asthma History of congestive heart failure diastolic dysfunction with preserved ejection fraction History of paroxysmal atrial fibrillation, currently on eliquis GI prophylaxis DVT prophylaxis Full code Plan: * In regards to acute hypoxic respiratory failure multifactorial noted to bilateral pleural effusion suspect community-acquired pneumonia, with superimposed CHF. Patient was continued on IV antibiotic Rocephin, azithromycin and Flagyl and is being discontinued, continued on oral Bumex twice a day with cardiology following. Patient is on room air * In regards to pericholecystic fluid, HIDA scan was negative, possibly chronic cholelithiasis. Patient denies any abdominal pain, nausea and reports to feeling hungry. General surgery evaluated with no plans of surgical intervention at this time * In regards to elevated troponin, ACS ruled out per cardiology and patient has been transitioned to oral anticoagulant * In regards to bilateral pleural effusion, acute asthma exacerbation, continue current management with breathing treatments, IV Solu-Medrol pulmonary following, and will transition to a prednisone taper. Continue oral Bumex and patient is on room air * In regards to history of congestive heart failure most recent echocardiogram in March 2023 shows preserved ejection fraction, diuretic resumed * In regards to history of paroxysmal atrial fibrillation, patient on Eliquis at home and being resumed * Awaiting PT/OT therapy for evaluation as patient is weak and plans on returning home with * Possible discharge planning in the next 24 hours The impression and plan of care has been dictated by Kailey Bates, Nurse Prac titioner as directed. Dr. Tarah MD I have performed a history and examination and MDM of this patient, discussed the same with the dictator, and agree with the dictator's assessment and plan as written ,documented as a scribe. Based on total visit time, I have performed more than 50% of the visit. Objective - Vital Signs Vital signs: Vital Signs Temp 98.1 F 06/12/23 00:00 Pulse 83 06/12/23 02:00 Resp 16 06/12/23 02:00 BP 148/76 06/12/23 00:00 Pulse Ox 97 06/12/23 00:00 FiO2 Intake & Output 06/11/23 06/11/23 06/12/23 06:59 18:59 06:59 Intake Total 636 218 Output Total 500 600 400 Balance -500 36 -182 Weight 78.2 kg Intake: IV 10 Invasive Line 2 10 Intake, IV Titration 150 100 Amount cefTRIAXone 2 gm In 50 100 Sodium Chloride 0.9% 50 ml @ 100 mls/hr IVPB Q24HR [facility] Rx#:[id number] metroNIDAZOLE-NS PMX 500 100 mg In Saline 1 100ml.bag @ 100 mls/hr IVPB Q8HR [facility] Rx#:[id number] Oral 476 118 Output: Urine 500 600 400 Other: Voiding Method External Catheter External Catheter External Catheter # Bowel Movements 1 - Labs CBC & Chem 7: 06/10/23 06:22 06/11/23 06:36 Labs: Abnormal Lab Results - Last 24 Hours (Table) 06/11/23 Range/Units 06:36 Potassium 3.3 L (3.5-5.1) mmol/L Chloride 112 H (98-107) mmol/L Carbon Dioxide 21 L (22-30) mmol/L BUN 51 H (7-17) mg/dL Creatinine 1.25 H (0.52-1.04) mg/dL Glucose 142 H (74-99) mg/dL Calcium 7.6 L (8.4-10.2) mg/dL Total Bilirubin 1.4 H (0.2-1.3) mg/dL AST 69 H (14-36) U/L ALT 35 H (4-34) U/L Alkaline Phosphatase 136 H (38-126) U/L Total Protein 5.6 L (6.3-8.2) g/dL Albumin 2.1 L (3.5-5.0) g/dL Microbiology - Last 24 Hours (Table) 06/08/23 09:07 Blood Culture - Preliminary Blood 06/08/23 08:45 Blood Culture - Preliminary Blood
[2023-06-12 08:39] LABS: African American GFR (CKD) 51 (>60 ml/min/1.73 sqM); Anion Gap 1 mmol/L; Blood Urea Nitrogen 52 mg/dL (7-17); Calcium 7.6 mg/dL (8.4-10.2); Carbon Dioxide 22 mmol/L (22-30); Chloride 113 mmol/L (98-107); Glucose 112 mg/dL (74-99); Non-African American GFR(CKD) 44 (>60 ml/min/1.73 sqM); Sodium 136 mmol/L (137-145)
[2023-06-12] MEDS: METOPROLOL TARTRATE 25 MG TAB PO SCH (08:58)
[2023-06-12] MEDS: APIXABAN 5 MG TAB PO SCH (08:58)
[2023-06-12] MEDS: BUMETANIDE 1 MG TAB PO SCH (08:58)
[2023-06-12] MEDS: SODIUM CHLORIDE 0.9% 1,000 ML IV SCH (08:59)
[2023-06-12] MEDS: metroNIDAZOLE-NS PMX 500 MG in SALINE 1 100ML.BAG IVPB SCH (08:59)
[2023-06-12] MEDS ORDERED: predniSONE 20 MG TAB PO SCH (09:00)
[2023-06-12 09:04] VITALS: TEMP 97.3
[2023-06-12 11:35] VITALS: BP 148/70; PULSE 60; RESP 18
--- NOTE | 2023-06-12 11:36 | P.PN ---
Subjective Progress Note Date: 06/12/23 CHIEF COMPLAINT: Shortness of breath HISTORY OF PRESENT ILLNESS: Surgical service following in regards to possible acute cholecystitis. Patient had a HIDA scan completed today that showed no evidence for acute/chronic cholecystitis or biliary dyskinesia. Did report delayed clearance of activity from the blood pool. Findings may be seen with underlying hepatocellular disease/hepatic dysfunction. Patient denies any RUQ abdominal pain. Denies any nausea or vomiting. Patient reports having bowel movements. Patient followed by cardiology and pulmonary service for COPD, CHF non-ST elevated [place] type II. Afebrile. K 4.0. Possible discharge today PHYSICAL EXAM: VITAL SIGNS: Reviewed. GENERAL: Well-developed in no acute distress. ABDOMEN: Soft. Nondistended. Nontender. NEUROLOGIC: Alert and oriented. Cranial nerves II through XII grossly intact. ASSESSMENT: 1. Cholelithiasis. No evidence of Acute cholecystitis on HIDA 2. Possible chronic cholecystitis 3. Hypokalemia PLAN: -No surgical intervention planned -Continue regular diet -Patient can be discharged from surgical standpoint when medically cleared Physician Analysis Manager note has been reviewed by physician. Signing provider agrees with the documented findings, assessment, and plan of care. Objective - Vital Signs Vital signs: Vital Signs Temp 97.3 F L 06/12/23 07:28 Pulse 64 06/12/23 07:28 Resp 20 06/12/23 07:28 BP 158/85 06/12/23 10:01 Pulse Ox 97 06/12/23 07:28 FiO2 Intake & Output 06/11/23 06/12/23 06/12/23 18:59 06:59 18:59 Intake Total 636 218 236 Output Total 600 1100 Balance 36 -882 236 Weight 79.4 kg Intake: IV 10 Invasive Line 2 10 Intake, IV Titration 150 100 Amount cefTRIAXone 2 gm In 50 100 Sodium Chloride 0.9% 50 ml @ 100 mls/hr IVPB Q24HR [facility] Rx#:[id number] metroNIDAZOLE-NS PMX 500 100 mg In Saline 1 100ml.bag @ 100 mls/hr IVPB Q8HR [facility] Rx#:[id number] Oral 476 118 236 Output: Urine 600 1100 Other: Voiding Method External Catheter External Catheter External Catheter # Bowel Movements 1 1 - Labs CBC & Chem 7: 06/10/23 06:22 06/12/23 06:51 Labs: Abnormal Lab Results - Last 24 Hours (Table) 06/12/23 Range/Units 06:51 Sodium 136 L (137-145) mmol/L Chloride 113 H (98-107) mmol/L BUN 52 H (7-17) mg/dL Creatinine 1.17 H (0.52-1.04) mg/dL Glucose 112 H (74-99) mg/dL Calcium 7.6 L (8.4-10.2) mg/dL Microbiology - Last 24 Hours (Table) 06/08/23 09:07 Blood Culture - Preliminary Blood 06/08/23 08:45 Blood Culture - Preliminary Blood
--- NOTE | 2023-06-12 13:09 | P.PN ---
Subjective Progress Note Date: 06/12/23 Principal diagnosis: Acute hypoxic respiratory failure with bilateral pleural effusions, suspect acute diastolic congestive heart failure 78-year-old. Patient with known history of bronchial asthma, presented to the hospital because of worsening shortness of breath. Limited cough and congestion. She was also febrile prior to her coming into the hospital. 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 The patient also has a component of CHF. Her most recent echocardiogram from 04/15/2023 showed normal LV EF of around 50-55%, moderate left atrial dilatation, normal valvular structures, mild mitral regurgitation. Patient is currently on 4 L of oxygen by nasal cannula, the white cell cause of 10.9 with a hemoglobin of 11, sodium is 136 with a potassium level of 3.4. Her creatinine is currently elevated and currently is at 1.5 with a BUN of 47 and sodium levels of 136. LFTs showed mild elevation of the AST and ALP and the bilirubin level is at 2.5. Troponins are elevated at 0.1 and 0.7 respectively and her proBNP level is at 7820. CAT scan of chest abdomen and pelvis was done and the patient was found to have small bilateral pleural effusion and some limited resected change in lung bases bilaterally, cholelithiasis with pericholecystic fluid and there is no evidence of any biliary dilatation. Left inguinal hernia containing small bowel loops without any evidence of fasciculation. Large amount of stool within the rectum. The patient's history of any chest pain. Currently she is afebrile and hemodynamically stable. 06/09/2023, the patient is afebrile and hemodynamically stable. She is being diuresed with IV Bumex at a dose of 1 mg every 12 hours.. She is also being treated with a combination of bronchodilators and steroids. She remains on IV heparin. Antibiotic coverage essentially the same and the patient is currently on a combination of Rocephin and Zithromax and Flagyl. In regards to her gallbladder problem, the patient underwent an ultrasound that showed some pericholecystic fluid. HIDA scan is to be obtained tomorrow. No Homans signs. No evidence of an acute cholecystitis based on clinical examination. Neurological exam 0.8, hemoglobin of 9.8, BUN is at 46 with a creatinine of 1.2 and the creatinine is improved compared to yesterday. Sodium is at 135, bilirubin is at 1.9 and AST is at 75 with an ALT of 32. Total protein is at 6.0 with an albumin of 2.3. She remains on oxygen 3 L/m nasal cannula with a pulse ox of 97%. Was reevaluated today on 06/10/23, patient remains to be hemodynamically stable, remains on diuretics receiving Bumex at 1 mg every 12 hours feeling better, breathing easier, workup per acute cholecystitis seems to be negative so far patient remains on antibiotics, including Rocephin and Zithromax and Flagyl, HIDA scan seems to be negative for acute cholecystitis. Patient does not have any abdominal pain no nausea or vomiting. Her WBC count today is 8.3 hemoglobin 9.9. PTT is 70.7 basic metabolic profile is normal renal profile showed a BUN of 47 creatinine 1.26 echocardiogram showed preserved ejection fraction. History-muro the patient does have history of moderate COPD. Echocardiogram from last March showed ejection fraction of 50-55% for her atrial fibrillation, patient remains on heparin. She is also on metoprolol. Cardiology is planning to transition from heparin to eliquis. Patient was today on 06/11/2023, patient is doing well, remains on diuretics, breathing a lot easier, she has no cough no wheezing and no shortness of breath. Patient is on room air, O2 saturation 96%, she has no active pulmonary symptoms. She was cleared by cardiology for discharge, patient was seen by surgery, and no surgical intervention is felt to be necessary. Her basic metabolic profile is normal potassium is a bit low at 3.3 BUN is 51 creatinine 1.25 Reevaluated today on 06/12/2023, patient is doing well, relatively asymptomatic, sitting at bedside chair, she is on room air, no cough no wheezing no shortness of breath, patient has been cleared by all consultants on the case. Basic metab olic profile is normal BUN is 52 creatinine improving down to 1.17. Patient has been on Rocephin. Has been on diuretics, she has also been on bronchodilators. And already transitioned her methylprednisolone to prednisone at 40 mg daily Objective - Vital Signs Vital signs: Vital Signs Temp 97.3 F L 06/12/23 07:28 Pulse 60 06/12/23 11:12 Resp 18 06/12/23 11:12 BP 148/70 06/12/23 11:12 Pulse Ox 100 06/12/23 11:12 FiO2 Intake & Output 06/11/23 06/12/23 06/12/23 18:59 06:59 18:59 Intake Total 636 218 236 Output Total 600 1100 200 Balance 36 -882 36 Weight 79.4 kg Intake: IV 10 Invasive Line 2 10 Intake, IV Titration 150 100 Amount cefTRIAXone 2 gm In 50 100 Sodium Chloride 0.9% 50 ml @ 100 mls/hr IVPB Q24HR MEÑO Rx#:[id number] metroNIDAZOLE-NS PMX 500 100 mg In Saline 1 100ml.bag @ 100 mls/hr IVPB Q8HR [facility] Rx#:[id number] Oral 476 118 236 Output: Urine 600 1100 200 Other: Voiding Method External Catheter External Catheter External Catheter # Bowel Movements 1 1 - Exam Physical Exam: Revealed 78-year-old female in no distress. On room air. Head: Atraumatic, normocephalic. HEENT:[Neck is supple.] [No neck masses.] [No thyromegaly.] [No JVD.] Chest: [Diminished breath sounds at the bases no crackles or rhonchi or wheezes Cardiac Exam: [Normal S1 and S2, no S3 gallop, no murmur.] Abdomen: [Soft, nontender, no megaly, no rebound, no guarding, normal bowel sounds.] Extremities: [No clubbing, no edema, no cyanosis Neurological Exam: [No focal neurologic deficit.] And oriented 3, nonfocal Psychiatric: Normal mood affect and normal mental status exam. - Labs CBC & Chem 7: 06/10/23 06:22 06/12/23 06:51 Labs: Abnormal Lab Results - Last 24 Hours (Table) 06/12/23 Range/Units 06:51 Sodium 136 L (137-145) mmol/L Chloride 113 H (98-107) mmol/L BUN 52 H (7-17) mg/dL Creatinine 1.17 H (0.52-1.04) mg/dL Glucose 112 H (74-99) mg/dL Calcium 7.6 L (8.4-10.2) mg/dL Microbiology - Last 24 Hours (Table) 06/08/23 09:07 Blood Culture - Preliminary Blood 06/08/23 08:45 Blood Culture - Preliminary Blood Assessment and Plan Assessment: Impression: Acute hypoxic respiratory failure secondary to mild diastolic congestive heart failure, Bilateral pleural effusions secondary to acute diastolic congestive heart failure Acute exacerbation of bronchial asthma, seems to be presently inactive Paroxysmal atrial fibrillation Pericholecystic fluid, but no evidence of cholecystitis. Workup was nondiagnostic for cholecystitis Recommendation: Continue diuretics, patient is now on oral Bumex Continue bronchodilators, continue prednisone 3 0 mg daily and taper on outpatient basis. Discontinue antibiotics. Continue eliquis Cleared for discharge if cleared by other consultants Time with Patient: Less than 30
[2023-06-13] MEDS ORDERED: predniSONE 10 MG TAB PO SCH (09:00)
--- NOTE | 2023-06-17 10:41 | CDI ---
Documentation Clarification Form Date: 06/17/2023 10:17:47 AM From: Odalis Madison RN, CCDS Phone: [phone] Admit Date: 06/08/2023 07:50:00 AM Patient Name: Basia Hardy Visit Number: [id number] Discharge Date: 06/12/2023 02:13:00 PM ATTENTION: The Clinical Documentation Specialists (CDI) and [facility] Coding Staff appreciate your assistance in clarifying documentation. Please respond to the clarification below the line at the bottom and electronically sign. The CDI & [facility] Coding staff will review the response and follow-up if needed. Please note: Queries are made part of the Legal Health Record. If you have any questions, please contact the author of this message via ITS. Dr. Yeni Rascon Sepsis is documented in the surgical consult on 06/08/23 which may lack sufficient clinical evidence/support in the medical record. Additional clarification is requested. History/Risk Factors: Asthma, Heart Failure, Hypertension, inclusion body myositis, Osteoarthritis Clinical Indicators: 78-year-old female present with shortness of breath and complains of associated fever. 06/08 VS: 145/79 90 100.1 93% 5/L NC. 151/87 90 20 99.2 95% 4/L NC 06/08 Lab: WBC 10.9, Neutrophils 8.9, Na+ 136, BUN 47, CR 1.5, Lactic acid 3.4, Troponin I 0.153, 0.l759 06/08 CXR: Interval development of diffuse infiltrates. Findings consistent with marked acute cardiopulmonary disease. 06/08 CT ADB/Pelvis: Cholithiasis and pericholecystic fluid raising and question of acute cholecystitis. No biliary duct dilation 06/08 US gallbladder: Choleithiasis and mild pericholecystitic fluid. 06/10 HIDA Scan: No scintigraphic evidence for acute/chronic cholecystitis or biliary dyskinesia. Treatment: .9NS 1,000 IV Bolus 06/08 Flagyl 500 MG IVPB Q8 HRS 06/08-06/12 Rocephin 1,000 MG IVP Once then 2 GM IVPB Q 24 HRS 06/09-06/12 After work up and study, please clarify which diagnosis is most appropriate? [ ] Sepsis ruled out [ ] Sepsis is a valid diagnosis as evidence by the following: (Please add rationale): [ ] Other, please specify [ ] Unable to determine (Template Last Reviewed: May 2023) MTDD
--- NOTE | 2023-06-18 06:02 | P.DS ---
Providers Date of admission: 06/08/23 07:50 Expected date of discharge: 06/12/23 Attending physician: Zoya Salazar Consults: 06/08/23 07:49 Consult Physician Routine Consulting Provider: Srinath Nathan Consult Reason/Comments: acute cholecystitis Do you want consulting provider notified?: Already Contacted 06/08/23 08:19 Consult Physician Routine Consulting Provider: Korey Farias Consult Reason/Comments: Acute exacerbation of COPD multifocal pneumonia Do you want consulting provider notified?: Yes Primary care physician: Ricki Hood Hospital Course: Final diagnosis Acute hypoxic respiratory failure multifactorial secondary to pneumonia, community-acquired and congestive heart failure Pericholecystic fluid, suspect cholecystitis, hyperbilirubinemia/transaminitis, HIDA scan negative, possibly chronic cholelithiasis, sepsis ruled out Elevated troponin with known history of left bundle branch block, ACS ruled out Bilateral pleural effusions right greater than left Acute exacerbation of bronchial asthma History of congestive heart failure diastolic dysfunction with preserved ejection fraction History of paroxysmal atrial fibrillation, currently on eliquis GI prophylaxis DVT prophylaxis Full code Discharge disposition Patient is being discharged in a stable condition with guarded prognosis to home. Patient will follow-up with Dr. Hood in the outpatient setting upon discharge. Patient is to continue with Ceftin and Flagyl for the next few days and close outpatient follow-up with general surgery as needed and cardiology as scheduled. Total time taken is greater than 35 minutes. Hospital course This is a 78-year-old female who was recently admitted with shortness of breath with concerns of community-acquired pneumonia and CHF exacerbation. Patient also with history of asthma with acute exacerbation of bronchial asthma with multiple medical consultations following. Patient was continued on breathing treatments along with steroids and IV Lasix. Patient was transitioned to oral Bumex and evaluated by cardiology recommending outpatient follow-up. Patient did have some abdominal pain on admission and was evaluated by general surgery underwent HIDA scan which was negative and patient denies any further abdominal pain symptoms, no associated nausea or vomiting and patient is tolerating diet. Possible chronic cholelithiasis recommending outpatient follow-up. Patient was seen and evaluated by physical therapy and although slightly weak, patient will be returning home with spouse. Patient has been cleared by consultations for discharge. Please refer to other consultation notes for further HPI. Patient reports to feeling well and would like to go home. Currently no reports of chest pain, shortness of breath, or palpitations. Patient is afebrile. No reports of nausea or vomiting and patient is tolerating diet. Patient will be discharged home today. High risk for readmission given patient's significant comorbidities Physical exam: Gen: This is a 78-year-old female who is awake, alert and oriented x 3, well- developed, well-nourished, obese HEENT: Head is atraumatic, normocephalic. Pupils equal, round. Sclerae is anicteric. NECK: Supple. No JVD. No lymphadenopathy. No thyromegaly. LUNGS: Clear to auscultation. No wheezes or rhonchi. No intercostal retractions. HEART: S1, S2 are muffled ABDOMEN: Soft. Obese. Bowel sounds are present. No masses. No tenderness. EXTREMITIES: No pedal edema. No calf tenderness. NEUROLOGICAL: Patient is awake, alert and oriented x3. Cranial nerves 2 through 12 are grossly intact. Please refer to medication reconciliation sheet for a list of medications. The impression and plan of care has been dictated by Kailey Bates, Nurse Practitioner as directed. Dr. Tarah MD I have performed a history and examination and MDM of this patient, discussed the same with the dictator, and agree with the dictator's assessment and plan as written ,documented as a scribe. Based on total visit time, I have performed more than 50% of the visit. Patient Condition at Discharge: Fair Plan - Discharge Summary Discharge Rx Participant: No New Discharge Prescriptions: New cefUROXime axetiL [Ceftin] 500 mg PO BID 3 Days #6 tab metroNIDAZOLE [Flagyl] 500 mg PO TID 3 Days #9 tab Metoprolol Tartrate [Lopressor] 25 mg PO BID 30 Days #60 tablet Apixaban [Eliquis] 5 mg PO BID 90 Days #180 tab Continue Vit C/E/Zn/Coppr/Lutein/Zeaxan [Preservision Areds 2 Softgel] 1 cap PO BID Cholecalciferol (Vitamin D3) [Vitamin D3 (125 MCG = 5,000 IU)] 125 mcg PO DAILY Magnesium Oxide [Mag-Ox] 400 mg PO HS Folic Acid 1 mg PO DAILY Bumetanide [BUMEX] 1 mg PO BID Cyanocobalamin (Vitamin B-12) [Vitamin B-12] 1,000 mcg PO DAILY Potassium Gluconate 99 mg PO DAILY Discontinued Ferrous Sulfate [Iron (65 MG Elemental)] 325 mg PO HS Metoprolol Succinate (ER) [Toprol XL] 50 mg PO DAILY #30 tab Metoprolol Succinate (ER) [Toprol XL] 25 mg PO HS #30 tab Apixaban [Eliquis] 2.5 mg PO DAILY No Action predniSONE See Taper PO DIRECTED Discharge Medication List Cyanocobalamin (Vitamin B-12) [Vitamin B-12] 1,000 mcg PO DAILY 12/30/20 [H istory] Vit C/E/Zn/Coppr/Lutein/Zeaxan [Preservision Areds 2 Softgel] 1 cap PO BID 12/30/20 [History] Cholecalciferol (Vitamin D3) [Vitamin D3 (125 MCG = 5,000 IU)] 125 mcg PO DAILY 04/25/21 [History] Magnesium Oxide [Mag-Ox] 400 mg PO HS 02/04/23 [History] Bumetanide [BUMEX] 1 mg PO BID 06/08/23 [History] Folic Acid 1 mg PO DAILY 06/08/23 [History] Potassium Gluconate 99 mg PO DAILY 06/08/23 [History] Apixaban [Eliquis] 5 mg PO BID 90 Days #180 tab 06/12/23 [Rx] Metoprolol Tartrate [Lopressor] 25 mg PO BID 30 Days #60 tablet 06/12/23 [Rx] cefUROXime axetiL [Ceftin] 500 mg PO BID 3 Days #6 tab 06/12/23 [Rx] metroNIDAZOLE [Flagyl] 500 mg PO TID 3 Days #9 tab 06/12/23 [Rx] predniSONE See Taper PO DIRECTED 06/14/23 [History] Follow up Appointment(s)/Referral(s): Pérez Gonzalez MD [STAFF PHYSICIAN] - 1 Week (office will call you and make appointment ) Ricki Hood DO [Primary Care Provider] - 06/27/23 10:15 am () Patient Instructions/Handouts: Cholecystitis (GEN), Dyspnea (DC), Pneumonia (DC) Activity/Diet/Wound Care/Special Instructions: Activity limited until follow-up Follow-up with primary care provider on discharge Follow-up with cardiology outpatient Follow-up with pulmonary outpatient Continue taking medications as prescribed Discharge Disposition: HOME SELF-CARE
== END 2023-06-12 14:13 | disposition home or self-care (01) | DRG 871 ==
LOC: SUPCPDRO 04:13 → EC 04:13 → 4SSUR 07:50 → 3SCARD 13:43
PROVIDERS: ADMIT Hospitalist; ATTEND Hospitalist
DX: A41.9 Sepsis, unspecified organism (principal); I21.A1 Myocardial infarction type 2; I50.33 Acute on chronic diastolic (congestive) heart failure; J18.9 Pneumonia, unspecified organism; J96.21 Acute and chronic respiratory failure with hypoxia; J96.22 Acute and chronic respiratory failure with hypercapnia; J44.0 Chronic obstructive pulmonary disease with (acute) lower respiratory infection; K80.62 Calculus of gallbladder and bile duct with acute cholecystitis without obstruction; N17.9 Acute kidney failure, unspecified; K80.10 Calculus of gallbladder with chronic cholecystitis without obstruction; I13.0 Hypertensive heart and chronic kidney disease with heart failure and stage 1 through stage 4 chronic kidney disease, or unspecified chronic kidney disease; J44.1 Chronic obstructive pulmonary disease with (acute) exacerbation; J45.901 Unspecified asthma with (acute) exacerbation; R17 Unspecified jaundice; I25.10 Atherosclerotic heart disease of native coronary artery without angina pectoris; I48.0 Paroxysmal atrial fibrillation; Z11.52 Encounter for screening for COVID-19; E11.22 Type 2 diabetes mellitus with diabetic chronic kidney disease; E66.01 Morbid (severe) obesity due to excess calories; E87.6 Hypokalemia; G72.41 Inclusion body myositis [IBM]; M62.81 Muscle weakness (generalized); I44.7 Left bundle-branch block, unspecified; K40.90 Unilateral inguinal hernia, without obstruction or gangrene, not specified as recurrent; N18.9 Chronic kidney disease, unspecified; Z86.79 Personal history of other diseases of the circulatory system; Z79.01 Long term (current) use of anticoagulants; Z88.0 Allergy status to penicillin; Z88.8 Allergy status to other drugs, medicaments and biological substances; I08.1 Rheumatic disorders of both mitral and tricuspid valves; Z98.42 Cataract extraction status, left eye; Z98.41 Cataract extraction status, right eye
CPT/HCPCS: 36415; 71045; 71260; 74177; 76705; 78227; 80048; 80053; 81001; 82248; 83605; 83735; 83880; 84145; 84484; 85025; 85027; 85610; 85730; 86140; 87040; 87449; 87636; 93005; 94640; 96361; 96365; 96366; 96367; 96375; 99291; 99292

== ENCOUNTER 2023-06-14 14:39 | Inpatient (IN) | payer MEDICARE ==
--- NOTE | 2023-06-14 15:03 | ED ---
Abdominal Pain HPI - General Chief Complaint: Abdominal Pain Stated Complaint: Abd Pain Time Seen by Provider: 06/14/23 14:45 Source: EMS Mode of arrival: EMS Limitations: no limitations - History of Present Illness Initial Comments: This patient is an 78-year-old woman who presents to have evaluation of pain across the mid and low abdomen. She states that it had caused her to come into the hospital days ago, and she was discharged 2 days ago. Patient states that she had been doing fairly well and then had a recurrence of symptoms this morning. The symptoms last for a couple of seconds. She has not relieving factors. The patient believes that it may be related to taking recent antibiotics for pneumonia. She states that she did have a normal bowel movement about 10 hours before coming in. Denying vomiting. Patient states she does not have any residual dyspnea, but She occasionally coughs thick sputum. MD Complaint: abdominal pain -: hour(s) Location: diffuse Radiation: none Migration to: no migration Severity: moderate Quality: sharp Consistency: intermittent Improves With: nothing Worsens With: nothing Associated Symptoms: denies other symptoms - Related Data Home Medications Medication Instructions Recorded Confirmed Cyanocobalamin (Vitamin B-12) 1,000 mcg PO DAILY 12/30/20 06/14/23 [Vitamin B-12] Vit C/E/Zn/Coppr/Lutein/Zeaxan 1 cap PO BID 12/30/20 06/14/23 [Preservision Areds 2 Softgel] Cholecalciferol (Vitamin D3) 125 mcg PO DAILY 04/25/21 06/14/23 [Vitamin D3 (125 MCG = 5,000 IU)] Magnesium Oxide [Mag-Ox] 400 mg PO HS 02/04/23 06/14/23 Bumetanide [BUMEX] 1 mg PO BID 06/08/23 06/14/23 Folic Acid 1 mg PO DAILY 06/08/23 06/14/23 Potassium Gluconate 99 mg PO DAILY 06/08/23 06/14/23 Previous Rx's Medication Instructions Recorded Apixaban [Eliquis] 5 mg PO BID 90 Days #180 tab 06/12/23 Metoprolol Tartrate [Lopressor] 25 mg PO BID 30 Days #60 tablet 06/12/23 Acetaminophen Tab [Tylenol] 1,000 mg PO Q6HR PRN tab 06/27/23 Amoxic-Pot Clav 875-125Mg 1 each PO Q12HR #12 tab 06/27/23 [Augmentin 875-125] Famotidine [Pepcid] 20 mg PO DAILY #30 tablet 06/27/23 Allergies Allergy/AdvReac Type Severity Reaction Status Date / Time omeprazole [From Prilosec] Allergy Unknown Rash/Hives, Verified 06/14/23 16:46 TONGUE SWELLLING omeprazole magnesium Allergy Unknown Rash/Hives, Verified 06/14/23 16:46 [From Prilosec] TONGUE SWELLLING Penicillins Allergy Unknown Rash/Hives/ Verified 06/14/23 16:46 Itching amlodipine Allergy fide pedal Verified 06/14/23 16:46 edema, loss voice carvedilol Allergy shortness Verified 06/14/23 16:46 of breath lisinopril Allergy Unknown Verified 06/14/23 16:46 Review of Systems ROS Statement: Those systems with pertinent positive or pertinent negative responses have been documented in the HPI. ROS Other: All systems not noted in ROS Statement are negative. Constitutional: Denies: fever, chills Respiratory: Reports: cough. Denies: dyspnea, wheezes, hemoptysis Cardiovascular: Denies: chest pain, palpitations, edema, syncope Gastrointestinal: Reports: abdominal pain. 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 History of Any Multi-Drug Resistant Organisms: None Reported Past Surgical History: Heart Catheterization Additional Past Surgical History / Comment(s): EYE SURGERY DUE TO INJURY, EGD, COLONOSCOPY, BONE MARROW BIOPSY, cataracts, muscle biopsy Past Anesthesia/Blood Transfusion Reactions: No Reported Reaction Past Psychological History: No Psychological Hx Reported Smoking Status: Never smoker Past Alcohol Use History: Occasional Past Drug Use History: None Reported - Past Family History Sister(s) Family Medical History: Cancer Additional Family Medical History / Comment(s): LEUKEMIA- at age 42 Brother(s) Family Medical History: Cancer Additional Family Medical History / Comment(s): with unknown type CA at age 60s General Exam Limitations: no limitations General appearance: alert, in no apparent distress Head exam: Present: atraumatic, normocephalic Eye exam: Present: normal appearance. Absent: scleral icterus, conjunctival injection Neck exam: Present: normal inspection Respiratory exam: Present: normal lung sounds bilaterally. Absent: respiratory distress, wheezes, rales, rhonchi, stridor Cardiovascular Exam: Present: regular rate, normal rhythm, normal heart sounds. Absent: systolic murmur, diastolic murmur, rubs, gallop GI/Abdominal exam: Present: soft, tenderness. Absent: distended, guarding, rebound, rigid, mass, pulsatile mass, hernia Extremities exam: Present: normal inspection, normal capillary refill. Absent: pedal edema, calf tenderness Back exam: Present: normal inspection. Absent: CVA tenderness (R), CVA tenderness (L) Neurological exam: Present: alert Skin exam: Present: warm, dry, intact, normal color. Absent: rash Course Vital Signs 06/14/23 06/14/23 14:43 18:15 Temperature 97.8 F Pulse Rate 63 64 Respiratory 20 18 Rate Blood Pressure 148/70 140/61 O2 Sat by Pulse 100 95 Oximetry Medical Decision Making - Medical Decision Making This patient is an 78-year-old woman who presents with recurrence of abdominal p ain. She had been admitted to the hospital last week and discharged days ago. This studies at that time were reviewed which showed some pericholecystic fluid and the possibility of cholecystitis was raised. The patient today had ultrasound which was concerning for possible finding in the head of the pancreas. Given the persistence of symptoms and the pancreatic finding we will admit the patient to have further studies. Case discussed with admitting physician and will have surgical consultation. Was pt. sent in by a medical professional or institution (, [facility], BIOMECHANICAL ENGINEER, urgent care, hospital, or jail...) When possible be specific @ -[No] Did you speak to anyone other than the patient for history (EMS, parent, family, police, friend...)? What history was obtained from this source @ -[No] Did you review nursing and triage notes (agree or disagree)? Why? @ -[I reviewed and agree with nursing and triage notes] Were old charts reviewed (outside hosp., previous admission, EMS record, old EKG, old radiological studies, urgent care reports/EKG's, jail records)? Report findings @ -[Yes old charts were reviewed] Differential Diagnosis (chest pain, altered mental status, abdominal pain women, abdominal pain men, vaginal bleeding, weakness, fever, dyspnea, syncope, he adache, dizziness, GI bleed, back pain, seizure, CVA, palpatations, mental health, musculoskeletal)? @ -Differential Abdominal Pain Women: Appendicitis, Cholecystitis, diverticulosis, ischemic bowel, pancreatitis, hepatitis, UTI, gastroenteritis, AAA, incarcerated hernia, bowel obstruction, constipation, inflammatory bowel, hepatitis, peptic ulcer disease, splenic infarction, perforated viscus, vulvitis, ovarian torsion, PID, kidney stone, placenta abruption, this is not meant to be an all-inclusive list EKG interpreted by me (3pts min.). @ -[As above] X-rays interpreted by me (1pt min.). @ -[None done] CT interpreted by me (1pt min.). @ -[None done] U/S interpreted by me (1pt. min.). @ -[None done] What testing was considered but not performed or refused? (CT, X-rays, U/S, labs)? Why? @ -[CT of the abdomen was considered but this had been performed last week and ultrasound is substituted today What meds were considered but not given or refused? Why? @ -[None] Did you discuss the management of the patient with other professionals (professionals i.e. , PA, BIOMECHANICAL ENGINEER, lab, RT, psych nurse, high school social science teacher, workers compensation defense attorney, teacher, promotions officer, case filler)? Give summary @ -[Case discussed with admitting physician and treatment recommendations incorporated Was smoking cessation discussed for >3mins.? @ -[No] Was critical care preformed (if so, how long)? @ -[No] Were there social determinants of health that impacted care today? How? (Homelessness, low income, unemployed, alcoholism, drug addiction, transportation, low edu. Level, literacy, decrease access to med. care, custodial, rehab)? @ -[No] Was there de-escalation of care discussed even if they declined (Discuss DNR or withdrawal of care, Hospice)? DNR status @ -[No] What co-morbidities impacted this encounter? (DM, HTN, Smoking, COPD, CAD, Cancer, CVA, ARF, Chemo, Hep., AIDS, mental health diagnosis, sleep apnea, mo rbid obesity)? @ -[None] Was patient admitted / discharged? Hospital course, mention meds given and route, prescriptions, significant lab abnormalities, going to OR and other pertinent info. @ -[h patient is admitted for further evaluation and treatment, see above Undiagnosed new problem with uncertain prognosis? @ -[No] Drug Therapy requiring intensive monitoring for toxicity (Heparin, Nitro, Insulin, Cardizem)? @ -[No] Were any procedures done? @ -[No] Diagnosis/symptom? @ -Acute abdominal pain Possible mass of pancreatic head Acute, or Chronic, or Acute on Chronic? @ -[Acute Uncomplicated (without systemic symptoms) or Complicated (systemic symptoms)? @ -[Uncomplicated Side effects of treatment? @ -[No] Exacerbation, Progression, or Severe Exacerbation? @ -[No] Poses a threat to life or bodily function? How? (Chest pain, USA, NV, pneumonia, PE, COPD, DKA, ARF, appy, cholecystitis, CVA, Diverticulitis, Homicidal, Suicidal, threat to staff... and all critical care pts) @ -[This requires further evaluation, certainly pancreatic tumor is threatening to life. - Lab Data Result diagrams: 06/27/23 06:44 06/27/23 06:44 Lab Results 06/14/23 06/14/23 06/14/23 Range/Units 14:56 14:56 14:56 WBC 7.4 (3.8-10.6) k/uL RBC 3.47 L (3.80-5.40) m/uL Hgb 12.1 (11.4-16.0) gm/dL Hct 36.4 (34.0-46.0) % MCV 105.0 H (80.0-100.0) fL MCH 34.9 (25.0-35.0) pg MCHC 33.2 (31.0-37.0) g/dL RDW 15.0 (11.5-15.5) % Plt Count 164 D (150-450) k/uL MPV 8.4 Neutrophils % 71 % Lymphocytes % 19 % Monocytes % 7 % Eosinophils % 0 % Basophils % 1 % Neutrophils # 5.3 (1.3-7.7) k/uL Lymphocytes # 1.4 (1.0-4.8) k/uL Monocytes # 0.5 (0-1.0) k/uL Eosinophils # 0.0 (0-0.7) k/uL Basophils # 0.0 (0-0.2) k/uL Macrocytosis Moderate Sodium 137 (137-145) mmol/L Potassium 3.7 (3.5-5.1) mmol/L Chloride 105 (98-107) mmol/L Carbon Dioxide 27 (22-30) mmol/L Anion Gap 5 mmol/L BUN 53 H (7-17) mg/dL Creatinine 1.25 H (0.52-1.04) mg/dL Est GFR (CKD-EPI)AfAm 47 (>60 ml/min/1.73 sqM) Est GFR (CKD-EPI)NonAf 41 (>60 ml/min/1.73 sqM) Glucose 117 H (74-99) mg/dL Plasma Lactic Acid Shane 1.2 (0.7-2.0) mmol/L Calcium 9.5 (8.4-10.2) mg/dL Total Bilirubin 2.6 H (0.2-1.3) mg/dL AST 101 H (14-36) U/L ALT 57 H (4-34) U/L Alkaline Phosphatase 144 H (38-126) U/L C-Reactive Protein 3.6 H (<1.0) mg/dL Total Protein 7.0 (6.3-8.2) g/dL Albumin 2.8 L (3.5-5.0) g/dL Amylase 225 H (30-110) U/L Lipase 948 H (23-300) U/L Disposition Clinical Impression: Abdominal pain, Pancreatitis Narrative: possible pancreatic mass Disposition: ADMITTED IP TO THIS HOSP Condition: Good Is patient prescribed a controlled substance at d/c from ED?: No
[2023-06-14] MEDS: MORPHINE SULFATE 2 MG/ML SYRINGE IV STA (15:35)
[2023-06-14 15:37] LABS: ALT 57 U/L (4-34); AST 101 U/L (14-36); African American GFR (CKD) 47 (>60 ml/min/1.73 sqM); Albumin 2.8 g/dL (3.5-5.0); Alkaline Phosphatase 144 U/L (38-126); Amylase 225 U/L (30-110); Anion Gap 5 mmol/L; Blood Urea Nitrogen 53 mg/dL (7-17); C Reactive Protein 3.6 mg/dL (<1.0); Calcium 9.5 mg/dL (8.4-10.2); Carbon Dioxide 27 mmol/L (22-30); Chloride 105 mmol/L (98-107); Glucose 117 mg/dL (74-99); Lipase 948 U/L (23-300); Non-African American GFR(CKD) 41 (>60 ml/min/1.73 sqM); Potassium 3.7 mmol/L (3.5-5.1); Sodium 137 mmol/L (137-145); Total Bilirubin 2.6 mg/dL (0.2-1.3)
[2023-06-14 15:45] LABS: Basophils % (A) 1 %; Eosinophils % (A) 0 %; HCT 36.4 % (34.0-46.0); HGB 12.1 gm/dL (11.4-16.0); Lymphocytes # (A) 1.4 k/uL (1.0-4.8); Lymphocytes % (A) 19 %; MCH 34.9 pg (25.0-35.0); MCHC 33.2 g/dL (31.0-37.0); Macrocytosis Moderate; Mean Platelet Volume 8.4; Monocytes # (A) 0.5 k/uL (0-1.0); Monocytes % (A) 7 %; Neutrophils # (A) 5.3 k/uL (1.3-7.7); Neutrophils % (A) 71 %; RBC 3.47 m/uL (3.80-5.40); WBC 7.4 k/uL (3.8-10.6)
[2023-06-14 15:49] LABS: Platelet Count 164 k/uL (150-450)
--- NOTE | 2023-06-14 17:27 | US ---
EXAMINATION TYPE: US abdomen limited DATE OF EXAM: 06/14/2023 COMPARISON: 06/08 US/CT & 06/10 HIDA CLINICAL INDICATION: Female, 78 years old with history of upper abdominal pain; severe epigastric jose luis n x over a week TECHNIQUE: Multiple sonographic images of the right upper quadrant are obtained. FINDINGS: EXAM MEASUREMENTS: Liver Length: 11.1 cm Gallbladder Wall: 0.5 cm. Normal less than 0.3 cm. CBD: 0.5 cm Right Kidney: 7.8x4.3x5.1 cm REBAR WORKER NOTES: Pancreas: persistent 0.6x0.8x0.5cm hypoechoic area, pancreatic pseudocyst versus mass, noted at azar creatic head adjacent to new pancreatic ductal dilatation. Correlate with laboratory results. Additi onal workup with MRI or CT with pancreas protocol is recommended. Neoplasm is not excluded. Liver: nodular contour, free fluid Gallbladder: wall thickened, pericholecystic fluid and gravel like cholelithiasis not appreciated on today's exam Evidence for sonographic Torres's sign: No CBD: wnl Right Kidney: No hydronephrosis or masses seen exam limited by bowel gas, rib shadowing, and patients limited mobility and tolerance to transducer p ressure IMPRESSION: 1. Subcentimeter hypoechoic area within the pancreas head. Additional workup with MRI or contrast CT with pancreas protocol is recommended. Differential diagnosis includes pseudocyst formation and neopl asm. 2. Thick walled gallbladder. Correlate for cholecystitis
[2023-06-14] MEDS ORDERED: NALOXONE 0.4 MG/ML 1 ML VIAL IV PRN (18:54)
[2023-06-14] MEDS ORDERED: ACETAMINOPHEN TAB 325 MG TAB PO PRN (19:07)
[2023-06-14] MEDS ORDERED: ONDANSETRON 4 MG/2 ML VIAL IVP PRN (19:07)
[2023-06-14] MEDS ORDERED: FAMOTIDINE 20 MG TAB PO SCH (21:00)
[2023-06-14] MEDS: FAMOTIDINE 20 MG TAB PO SCH (22:01)
[2023-06-14] MEDS: APIXABAN 5 MG TAB PO SCH (22:12)
[2023-06-14] MEDS: MAGNESIUM OXIDE 400 MG TAB PO SCH (22:12)
[2023-06-14] MEDS: MORPHINE SULFATE 4 MG/ML SYRINGE IV PRN (22:12)
[2023-06-14] MEDS: METOPROLOL TARTRATE 25 MG TAB PO SCH (22:12)
[2023-06-14] MEDS: BUMETANIDE 1 MG TAB PO SCH (22:54)
[2023-06-14] MEDS: SODIUM CHLORIDE 0.9% 1,000 ML IV SCH (22:55)
--- NOTE | 2023-06-15 01:34 | P.HPIM ---
History of Present Illness H&P Date: 06/14/23 Chief Complaint: Abdominal pain 78-year-old female with diastolic CHF paroxysmal A-fib on Eliquis Patient coming in with 1 to 2-day history of abdominal pain. She is describing epigastric severe abdominal pain that is radiating across her upper belly rating it 10 out of 10 in severity very sharp severe pain associated with nausea but no vomiting denies any GI bleeding denies any diarrhea denies any fevers or chills denies any coughing denies any chest pain or trouble breathing. Patient was recently hospitalized and treated for pneumonia and was investigated also for cholecystitis with HIDA scans and was discharged about a week ago on antibiotics for pneumonia. During workup in the ED she was found to have pancreatitis suspected to be secondary to gallstones and cholecystitis. Abdominal ultrasound was also inconclusive about possibility of pseudocyst and pancreatic neoplasia. Patient denies tobacco smoking illicit drugs or heavy alcohol review of systems Pertinent positives as noted in HPI. All other systems were reviewed and are negative on exam Constitutional: No acute distress, conversant, pleasant Eyes: Jaundiced sclerae, moist conjunctiva, Pupils equal round reactive to light ENMT: NC/AT Oropharynx clear, no erythema, or exudates Neck: Supple, no masses, or JVD No carotid bruits No thyromegaly Lungs: Clear to auscultation Clear to percussion Normal respiratory effort, no accessory muscle use Cardiovascular: Heart regular in rate and rhythm, No murmurs, gallops, or rubs +2 bilateral peripheral leg edema Abdominal: Soft Severe tenderness to the epigastric region, Torres sign positive, vol untary guarding no rebound tenderness no rigidity Abdomen moving with respiration Normoactive bowel sounds No hepatomegaly, No splenomegaly No palpable mass No abdominal wall hernia noted Extremities: No digital cyanosis No clubbing Pedal pulses intact and symmetrical Radial pulses intact and symmetrical No calf tenderness Psychiatric: Alert and oriented to person, place Neuro Muscles Strength 4/5 in a bilateral upper extremities and 3 out of 5 in bilateral lower extremities Sensation to light touch grossly present throughout Cranial nerves II-XII grossly intact Lymphatics: no palpable cervical or supraclavicular lymph nodes Past Medical History Past Medical History: Asthma, Heart Failure, Eye Disorder, Hypertension, Musculoskeletal Disorder, Osteoarthritis (OA) Additional Past Medical History / Comment(s): ENVIRONMENTAL ALLERGIES, BACK STENOSIS, 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 History of Any Multi-Drug Resistant Organisms: None Reported Past Surgical History: Heart Catheterization Additional Past Surgical History / Comment(s): EYE SURGERY DUE TO INJURY, EGD, COLONOSCOPY, BONE MARROW BIOPSY, cataracts, muscle biopsy Past Anesthesia/Blood Transfusion Reactions: No Reported Reaction Past Psychological History: No Psychological Hx Reported Smoking Status: Never smoker Past Alcohol Use History: Occasional Past Drug Use History: None Reported - Past Family History Sister(s) Family Medical History: Cancer Additional Family Medical History / Comment(s): LEUKEMIA- at age 42 Brother(s) Family Medical History: Cancer Additional Family Medical History / Comment(s): with unknown type CA at age 60s Medications and Allergies Home Medications Medication Instructions Recorded Confirmed Type Cyanocobalamin (Vitamin B-12) 1,000 mcg PO DAILY 12/30/20 06/14/23 History [Vitamin B-12] Vit C/E/Zn/Coppr/Lutein/Zeaxan 1 cap PO BID 12/30/20 06/14/23 History [Preservision Areds 2 Softgel] Cholecalciferol (Vitamin D3) 125 mcg PO DAILY 04/25/21 06/14/23 History [Vitamin D3 (125 MCG = 5,000 IU)] Magnesium Oxide [Mag-Ox] 400 mg PO HS 02/04/23 06/14/23 History Bumetanide [BUMEX] 1 mg PO BID 06/08/23 06/14/23 History Folic Acid 1 mg PO DAILY 06/08/23 06/14/23 History Potassium Gluconate 99 mg PO DAILY 06/08/23 06/14/23 History Apixaban [Eliquis] 5 mg PO BID 90 Days #180 tab 06/12/23 06/14/23 Rx Metoprolol Tartrate [Lopressor] 25 mg PO BID 30 Days #60 tablet 06/12/23 06/14/23 Rx cefUROXime axetiL [Ceftin] 500 mg PO BID 3 Days #6 tab 06/12/23 06/14/23 Rx metroNIDAZOLE [Flagyl] 500 mg PO TID 3 Days #9 tab 06/12/23 06/14/23 Rx predniSONE See Taper PO DIRECTED 06/14/23 06/14/23 History Allergies Allergy/AdvReac Type Severity Reaction Status Date / Time omeprazole [From Prilosec] Allergy Unknown Rash/Hives, Verified 06/14/23 16:46 TONGUE SWELLLING omeprazole magnesium Allergy Unknown Rash/Hives, Verified 06/14/23 16:46 [From Prilosec] TONGUE SWELLLING Penicillins Allergy Unknown Rash/Hives/ Verified 06/14/23 16:46 Itching amlodipine Allergy fide pedal Verified 06/14/23 16:46 edema, loss voice carvedilol Allergy shortness Verified 06/14/23 16:46 of breath lisinopril Allergy Unknown Verified 06/14/23 16:46 Physical Exam Vitals: Vital Signs Temp Pulse Resp BP Pulse Ox 06/14/23 18:15 64 18 140/61 95 06/14/23 14:43 97.8 F 63 20 148/70 100 Intake and Output 06/14/23 06/14/23 06/14/23 06:59 14:59 22:59 Other: Weight 79.379 kg Results CBC & Chem 7: 06/14/23 14:56 06/14/23 14:56 Labs: Abnormal Lab Results - Last 24 Hours (Table) 06/14/23 06/14/23 Range/Units 14:56 14:56 RBC 3.47 L (3.80-5.40) m/uL MCV 105.0 H (80.0-100.0) fL BUN 53 H (7-17) mg/dL Creatinine 1.25 H (0.52-1.04) mg/dL Glucose 117 H (74-99) mg/dL Total Bilirubin 2.6 H (0.2-1.3) mg/dL AST 101 H (14-36) U/L ALT 57 H (4-34) U/L Alkaline Phosphatase 144 H (38-126) U/L C-Reactive Protein 3.6 H (<1.0) mg/dL Albumin 2.8 L (3.5-5.0) g/dL Amylase 225 H (30-110) U/L Lipase 948 H (23-300) U/L Assessment and Plan Assessment: 78-year-old female with diastolic CHF, paroxysmal A-fib on Eliquis was recently hospitalized and treated for pneumonia during that admission which she was also suspected to have gallstones. She is coming back about a week after discharge complaining of epigastric abdominal pain severe in nature I discussed case with ED doctor and accepted the admission for acute pancreatitis along with suspected ascending cholangitis secondary to suspected underlying gallstones with anticipated length of stay more than 2 midnights Acute pancreatitis ascending cholangitis suspected secondary to underlying gallstones Keep n.p.o. strict IV fluid hydration with lactated Ringer 125 cc/h Pain control with morphine 4 mg IV push every 2 hours Lipase 948 Liver enzymes elevated bilirubin 2.6 AST 107 ALT 57 alk phos 144 CRP 3.6 Follow-up cultures Start patient on Rocephin 1 g IV piggyback daily plus Flagyl 500 mg IV piggyback every 8 hours Surgery consultation Abdominal ultrasound done showing thick-walled gallbladder suspicious for cholecystitis, along with possibility of pancreatic pseudocyst versus neoplasia, will await surgery recommendations for further testing Zofran as needed for nausea vomiting White count 7.4 afebrile Hemoglobin 12.1 unremarkable Chronic conditions Hypertension Blood pressure slightly elevated continue with metoprolol 25 mg twice daily Chronic kidney disease stage III stable Creatinine 1.25 BUN 53 Sodium 137 potassium 3.7 Monitor renal function and urine output Paroxysmal A-fib Continue with Eliquis Continue with metoprolol Diastolic CHF most recent left ventricular ejection fraction 50-55% Bilateral lower extremity edema Patient currently on aggressive IV fluid hydration due to underlying pancreatitis Monitor serial lung exam to avoid fluid overload Full code DVT prophylaxis on Eliquis for A-fib
[2023-06-15] MEDS: LACTATED RINGERS 1,000 ML IV SCH (03:32)
[2023-06-15] MEDS: metroNIDAZOLE-NS PMX 500 MG in SALINE 1 100ML.BAG IVPB SCH (03:32)
[2023-06-15 05:58] LABS: Appearance,Urine Clear (Clear); Bilirubin,Urine Negative (Negative); Blood,Urine Trace (Negative); Color,Urine Light Yellow; Glucose,Urine (UA) Negative (Negative); Ketones,Urine Negative (Negative); Leukocyte Esterase,Urine Negative (Negative); Nitrite,Urine Negative (Negative); Protein,Urine Negative (Negative); RBC,Urine <1 /hpf (0-5); Specific Gravity,Urine 1.012 (1.001-1.035); Squamous Epithelial Cell,Urine <1 /hpf (0-4); Urobilinogen,Urine <2.0 mg/dL (<2.0)
[2023-06-15 08:53] LABS: HCT 30.8 % (34.0-46.0); HGB 10.2 gm/dL (11.4-16.0); Hypochromasia Marked; MCH 35.8 pg (25.0-35.0); MCV 108.6 fL (80.0-100.0); Macrocytosis Marked; Mean Platelet Volume 8.1; Platelet Count 106 k/uL (150-450); RBC 2.84 m/uL (3.80-5.40); RDW 15.1 % (11.5-15.5); WBC 12.6 k/uL (3.8-10.6)
[2023-06-15 08:56] LABS: ALT 39 U/L (4-34); AST 69 U/L (14-36); African American GFR (CKD) 49 (>60 ml/min/1.73 sqM); Albumin/Globulin Ratio 0.6; Alkaline Phosphatase 104 U/L (38-126); Anion Gap 3 mmol/L; Blood Urea Nitrogen 53 mg/dL (7-17); Calcium 8.7 mg/dL (8.4-10.2); Carbon Dioxide 23 mmol/L (22-30); Chloride 109 mmol/L (98-107); Globulin 3.4 g/dL; Glucose 80 mg/dL (74-99); Non-African American GFR(CKD) 43 (>60 ml/min/1.73 sqM); Potassium 4.1 mmol/L (3.5-5.1); Sodium 135 mmol/L (137-145); Total Bilirubin 2.1 mg/dL (0.2-1.3); Total Protein 5.4 g/dL (6.3-8.2)
[2023-06-15] MEDS: MORPHINE SULFATE 4 MG/ML SYRINGE IV PRN (09:00)
[2023-06-15] MEDS: FAMOTIDINE 20 MG/2 ML VIAL IV SCH (09:04)
[2023-06-15 09:23] LABS: Eosinophils # (M) 0.13 k/uL (0-0.7); Lymphocytes # (M) 1.26 k/uL (1.0-4.8); Metamyelocytes # (M) 0.13 k/uL (0); Metamyelocytes % 1 %; Monocytes # (M) 1.01 k/uL (0-1.0); Neutrophils # (M) 10.21 k/uL (1.3-7.7); Neutrophils % (M) 81 %; Nucleated Red Blood Cells 0 /100 WBC (0-0); Total Cells Counted 200
[2023-06-15 13:45] LABS: Albumin/Globulin Ratio 0.6; Bilirubin,Unconjugated 1.7 mg/dL (0.0-1.1); Globulin 3.2 g/dL; Total Bilirubin 2.2 mg/dL (0.2-1.3); Total Protein 5.2 g/dL (6.3-8.2)
--- NOTE | 2023-06-15 13:52 | P.PN ---
Subjective Progress Note Date: 06/15/23 Hospital Course: 78-year-old female with history of atrial fibrillation on Eliquis, diastolic CHF, hypertension, recent hospitalization for pneumonia, was also found to have cholecystitis, presenting with abdominal pain. Abdominal ultrasound shows subcentimeter hypoechoic area within the pancreas head concerning for pseudocyst formation versus neoplasm, thickened gallbladder wall, concerning for tania cystitis. CBD within normal limits. WBC 7.4, hemoglobin 164, creatinine 1.25, around baseline, total bilirubin 2.6, AST 101, ALT 57, ALP 144, lipase 948. Patient admitted for gallstone pancreatitis, started on IV fluids, pain control. Surgery also consulted. Subjective: Patient seen and examined at bedside. No acute events overnight. Still having abdominal pain. Pertinent positives and negatives as discussed above, a complete review of systems was performed and all other systems are negative. Vitals Signs Reviewed. General: Nontoxic, no distress, appears at stated age Derm: Warm, dry Head: Atraumatic, normocephalic, symmetric Eyes: EOMI, no lid lag, anicteric sclera Mouth: No lip lesion, mucus membranes moist Cardiovascular: S1S2 reg, no murmur Lungs: CTA bilateral, no rhonchi, no rales, no accessory muscle use Abdominal: Soft, tender to palpation in all quadrants, more prominent in epigastric region, no guarding, no appreciable organomegaly Ext: No gross muscle atrophy, no edema, no contractures Neuro: CN II-XI grossly intact, no focal neuro deficits Psych: Alert, oriented, appropriate affect Data Reviewed Today: Pertinent Labs: WBC 12.6, hemoglobin 10.2, platelet 106, creatinine 1.21, total bili 2.1, AST 69, ALT 39, ALP 104 Imaging: No new imaging Assessment and Plan: Active: Acute pancreatitis Suspected pancreatic pseudocyst versus neoplasm Acute on chronic cholecystitis Leukocytosis -Likely gallstone pancreatitis -CBD within normal limits -Surgery consulted, pending recommendations -Continue IV ceftriaxone 1 g every 24 hours, IV Flagyl 500 3 times daily -Continue IV fluids lactated ringer 125 cc an hour, may need to pare back if any respiratory complaints given history of CHF Atrial fibrillation -Continue metoprolol 25 twice daily -Hold morning dose of Eliquis, waiting for surgery if there is any plans for surgical intervention History of diastolic CHF Hypertension -Hold diuretics DVT ppx: Eliquis Code status: FC Anticipated discharge place: Pending clinical course Anticipated discharge time: Pending clinical course Objective - Vital Signs Vital signs: Vital Signs Temp 98.5 F 06/15/23 08:00 Pulse 72 06/15/23 08:00 Resp 14 06/15/23 08:00 BP 113/64 06/15/23 08:00 Pulse Ox 97 06/15/23 08:00 FiO2 Intake & Output 06/14/23 06/15/23 06/15/23 18:59 06:59 18:59 Intake Total 118 Output Total 700 Balance -582 Weight 79.379 kg 79.379 kg Intake: Oral 118 Output: Urine 700 Other: Voiding Method External Catheter - Labs CBC & Chem 7: 06/15/23 08:16 06/15/23 08:16 Labs: Abnormal Lab Results - Last 24 Hours (Table) 06/14/23 06/14/23 06/15/23 Range/Units 14:56 14:56 05:30 WBC (3.8-10.6) k/uL RBC 3.47 L (3.80-5.40) m/uL Hgb (11.4-16.0) gm/dL Hct (34.0-46.0) % MCV 105.0 H (80.0-100.0) fL MCH (25.0-35.0) pg Plt Count (150-450) k/uL Neutrophils # (Manual) (1.3-7.7) k/uL Monocytes # (Manual) (0-1.0) k/uL Metamyelocytes # (Man) (0) k/uL Macrocytosis Sodium (137-145) mmol/L Chloride (98-107) mmol/L BUN 53 H (7-17) mg/dL Creatinine 1.25 H (0.52-1.04) mg/dL Glucose 117 H (74-99) mg/dL Total Bilirubin 2.6 H (0.2-1.3) mg/dL Unconjugated Bilirubin (0.0-1.1) mg/dL AST 101 H (14-36) U/L ALT 57 H (4-34) U/L Alkaline Phosphatase 144 H (38-126) U/L C-Reactive Protein 3.6 H (<1.0) mg/dL Total Protein (6.3-8.2) g/dL Albumin 2.8 L (3.5-5.0) g/dL Amylase 225 H (30-110) U/L Lipase 948 H (23-300) U/L Urine Blood Trace H (Negative) 06/15/23 06/15/23 06/15/23 Range/Units 08:16 08:16 13:10 WBC 12.6 H (3.8-10.6) k/uL RBC 2.84 L (3.80-5.40) m/uL Hgb 10.2 L (11.4-16.0) gm/dL Hct 30.8 L (34.0-46.0) % MCV 108.6 H (80.0-100.0) fL MCH 35.8 H (25.0-35.0) pg Plt Count 106 L (150-450) k/uL Neutrophils # (Manual) 10.21 H (1.3-7.7) k/uL Monocytes # (Manual) 1.01 H (0-1.0) k/uL Metamyelocytes # (Man) 0.13 H (0) k/uL Macrocytosis Marked A Sodium 135 L (137-145) mmol/L Chloride 109 H (98-107) mmol/L BUN 53 H (7-17) mg/dL Creatinine 1.21 H (0.52-1.04) mg/dL Glucose (74-99) mg/dL Total Bilirubin 2.1 H 2.2 H (0.2-1.3) mg/dL Unconjugated Bilirubin 1.7 H (0.0-1.1) mg/dL AST 69 H 60 H (14-36) U/L ALT 39 H 38 H (4-34) U/L Alkaline Phosphatase (38-126) U/L C-Reactive Protein (<1.0) mg/dL Total Protein 5.4 L 5.2 L (6.3-8.2) g/dL Albumin 2.0 L 2.0 L (3.5-5.0) g/dL Amylase (30-110) U/L Lipase (23-300) U/L Urine Blood (Negative)
--- NOTE | 2023-06-15 15:55 | CT ---
EXAMINATION TYPE: CT abdomen pelvis wo con DATE OF EXAM: 06/15/2023 COMPARISON: None INDICATION: abdominal pain DLP: 645.1 mGycm, Automated exposure control for dose reduction was used. CONTRAST: 0 mL of Isovue 300. Study performed without Oral Contrast TECHNIQUE: Axial images were obtained from above the diaphragm to the pubic rami in the axial plane a t 5 mm thick sections. Reconstructed images are reviewed on the computer in the coronal plane. FINDINGS: Limited CT sections are obtained the lung bases. Small bilateral pleural effusions are present some mild adjacent compressive atelectasis present. Cardiomegaly is evident.. CT ABDOMEN: Small moderate free air is in the nondependent portion of the upper abdomen adjacent to t he liver and peritoneal wall Liver: Normal Spleen: Normal Pancreas: Normal Adrenal glands: The adrenal glands are normal. Gallbladder: Sludge or gallstone may be present. Kidneys: No masses are evident. No hydronephrosis is present. No cysts are present. There is a 0.3 cm nonobstructing renal stone mid to inferior pole left kidney. Aorta: Vascular calcification is within the aorta. Inferior vena cava: Normal. CT PELVIS: Loops of bowel within the abdomen and pelvis are normal. This study is without oral contrast limi ting bowel evaluation. Fecal debris is within the colon. Appendix: Not identified. Urinary bladder: Normal. Genitourinary structures: Uterus and ovaries are not clearly identified. Small amount free fluid is i n the right paracolic gutter. Osseous structures: No suspicious lytic or sclerotic lesions. Left inguinal lymph node appears to be present which is enlarged measuring 1.6 cm transverse. A report was provided to Suni, the patient's nurse by Dr. Cortes by telephone at the time of interpr etation. IMPRESSION: 1. Small amount of pneumoperitoneum in the epigastric region. This is an interval finding. Etiology not identified. 2. Cholelithiasis 3. Small bilateral pleural effusions with adjacent compressive atelectasis. Pleural effusions have di minished over the interval. 4. Small amount of free fluid within the pelvis A Red level critical message alert has been initiated for Barry Baker MD via the [email or web address] Critical Results System on 06/15/2023 3:44 PM. This message alert has been sent to Barry Baker MD via the preferences provided by the clinician for the receipt of Radiology Critical Findings. Message ID [id number].
--- NOTE | 2023-06-15 16:30 | P.CON ---
Consult Note - . Consult date: 06/15/23 Assessment/Plan:: Chief Complaint: Abdominal pain 78-year-old female with diastolic CHF paroxysmal A-fib on Eliquis Patient coming in with 1 to 2-day history of abdominal pain. She is describing epigastric severe abdominal pain that is radiating across her upper belly rating it 10 out of 10 in severity very sharp severe pain associated with nausea but no vomiting denies any GI bleeding denies any diarrhea denies any fevers or chills denies any coughing denies any chest pain or trouble breathing. Patient was recently hospitalized and treated for pneumonia and was investigated also for cholecystitis with HIDA scans and was discharged about a week ago on antibiotics for pneumonia. During workup in the ED she was found to have pancreatitis suspected to be secondary to gallstones and cholecystitis. Abdominal ultrasound was also inconclusive about possibility of pseudocyst and pancreatic neoplasia. Patient denies tobacco smoking illicit drugs or heavy alcohol review of systems Pertinent positives as noted in HPI. All other systems were reviewed and are negative on exam Constitutional: No acute distress, conversant, pleasant Eyes: Jaundiced sclerae, moist conjunctiva, Pupils equal round reactive to light ENMT: NC/AT Oropharynx clear, no erythema, or exudates Neck: Supple, no masses, or JVD No carotid bruits No thyromegaly Lungs: Clear to auscultation Clear to percussion Normal respiratory effort, no accessory muscle use Cardiovascular: Heart regular in rate and rhythm, No murmurs, gallops, or rubs +2 bilateral peripheral leg edema Abdominal: Soft Severe tenderness to the epigastric region, Torres sign positive, voluntary guarding no rebound tenderness no rigidity Abdomen moving with respiration Normoactive bowel sounds No hepatomegaly, No splenomegaly No palpable mass No abdominal wall hernia noted Extremities: No digital cyanosis No clubbing Pedal pulses intact and symmetrical Radial pulses intact and symmetrical No calf tenderness Psychiatric: Alert and oriented to person, place Neuro Muscles Strength 4/5 in a bilateral upper extremities and 3 out of 5 in bilateral lower extremities Sensation to light touch grossly present throughout Cranial nerves II-XII grossly intact Lymphatics: no palpable cervical or supraclavicular lymph nodes Past Medical History Past Medical History: Asthma, Heart Failure, Eye Disorder, Hypertension, Musculoskeletal Disorder, Osteoarthritis (OA) Additional Past Medical History / Comment(s): ENVIRONMENTAL ALLERGIES, BACK STENOSIS, 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 History of Any Multi-Drug Resistant Organisms: None Reported Past Surgical History: Heart Catheterization Additional Past Surgical History / Comment(s): EYE SURGERY DUE TO INJURY, EGD, COLONOSCOPY, BONE MARROW BIOPSY, cataracts, muscle biopsy Past Anesthesia/Blood Transfusion Reactions: No Reported Reaction Past Psychological History: No Psychological Hx Reported Smoking Status: Never smoker Past Alcohol Use History: Occasional Past Drug Use History: None Reported - Past Family History Sister(s) Family Medical History: Cancer Additional Family Medical History / Comment(s): LEUKEMIA- at age 42 Brother(s) Family Medical History: Cancer Additional Family Medical History / Comment(s): with unknown type CA at age 60s Medications and Allergies Home Medications Medication Instructions Recorded Confirmed Type Cyanocobalamin (Vitamin B-12) 1,000 mcg PO DAILY 12/30/20 06/14/23 History [Vitamin B-12] Vit C/E/Zn/Coppr/Lutein/Zeaxan 1 cap PO BID 12/30/20 06/14/23 History [Preservision Areds 2 Softgel] Cholecalciferol (Vitamin D3) 125 mcg PO DAILY 04/25/21 06/14/23 History [Vitamin D3 (125 MCG = 5,000 IU)] Magnesium Oxide [Mag-Ox] 400 mg PO HS 02/04/23 06/14/23 History Bumetanide [BUMEX] 1 mg PO BID 06/08/23 06/14/23 History Folic Acid 1 mg PO DAILY 06/08/23 06/14/23 History Potassium Gluconate 99 mg PO DAILY 06/08/23 06/14/23 History Apixaban [Eliquis] 5 mg PO BID 90 Days #180 tab 06/12/23 06/14/23 Rx Metoprolol Tartrate [Lopressor] 25 mg PO BID 30 Days #60 tablet 06/12/23 06/14/23 Rx cefUROXime axetiL [Ceftin] 500 mg PO BID 3 Days #6 tab 06/12/23 06/14/23 Rx metroNIDAZOLE [Flagyl] 500 mg PO TID 3 Days #9 tab 06/12/23 06/14/23 Rx predniSONE See Taper PO DIRECTED 06/14/23 06/14/23 History Allergies Allergy/AdvReac Type Severity Reaction Status Date / Time omeprazole [From Prilosec] Allergy Unknown Rash/Hives, Verified 06/14/23 16:46 TONGUE SWELLLING omeprazole magnesium Allergy Unknown Rash/Hives, Verified 06/14/23 16:46 [From Prilosec] TONGUE SWELLLING Penicillins Allergy Unknown Rash/Hives/ Verified 06/14/23 16:46 Itching amlodipine Allergy fide pedal Verified 06/14/23 16:46 edema, loss voice carvedilol Allergy shortness Verified 06/14/23 16:46 of breath lisinopril Allergy Unknown Verified 06/14/23 16:46 Physical Exam Vitals: Vital Signs Temp Pulse Resp BP Pulse Ox 06/14/23 18:15 64 18 140/61 95 06/14/23 14:43 97.8 F 63 20 148/70 100 Intake and Output 06/14/23 06/14/23 06/14/23 06:59 14:59 22:59 Other: Weight 79.379 kg Results CBC & Chem 7: 06/14/23 14:56 06/14/23 14:56 Labs: Abnormal Lab Results - Last 24 Hours (Table) 06/14/23 06/14/23 Range/Units 14:56 14:56 RBC 3.47 L (3.80-5.40) m/uL MCV 105.0 H (80.0-100.0) fL BUN 53 H (7-17) mg/dL Creatinine 1.25 H (0.52-1.04) mg/dL Glucose 117 H (74-99) mg/dL Total Bilirubin 2.6 H (0.2-1.3) mg/dL AST 101 H (14-36) U/L ALT 57 H (4-34) U/L Alkaline Phosphatase 144 H (38-126) U/L C-Reactive Protein 3.6 H (<1.0) mg/dL Albumin 2.8 L (3.5-5.0) g/dL Amylase 225 H (30-110) U/L Lipase 948 H (23-300) U/L Assessment and Plan Assessment: 78-year-old female with diastolic CHF, paroxysmal A-fib on Eliquis was recently hospitalized and treated for pneumonia during that admission presenting for abdominal pain. Acute pancreatitis ? Acute Xiomara Abdominal pain US reviewed CT-AP ordered Further recs to follow
[2023-06-15] MEDS: HYDROCORTISONE SUCCINATE 100 MG/2 ML VIAL IVP ONE (17:54)
[2023-06-15] MEDS ORDERED: NEOSTIGMINE 1 MG/ML 10 ML VIAL ONE (17:56)
[2023-06-15] MEDS ORDERED: GLYCOPYRROLATE 0.2 MG/ML 2 ML VIAL ONE (17:56)
[2023-06-15] MEDS ORDERED: fentaNYL (PF) 50 MCG/ML 2 ML AMP ONE (17:56)
[2023-06-15] MEDS ORDERED: ePHEDrine 50 MG/ML 1 ML VIAL ONE (17:56)
[2023-06-15] MEDS ORDERED: LIDOCAINE 1% INJ 10MG/ML (20 ML MDV) ONE (17:56)
[2023-06-15] MEDS ORDERED: SUCCINYLCHOLINE CHLORIDE 200 MG/10 ML VIAL IV ONE (17:56)
[2023-06-15] MEDS ORDERED: ROCURONIUM 10 MG/ML (5 ML VIAL) IV ONE (17:56)
[2023-06-15] MEDS ORDERED: ONDANSETRON 4 MG/2 ML VIAL ONE (17:56)
[2023-06-15] MEDS ORDERED: PROPOFOL 10 MG/ML 20 ML VIAL IV ONE (17:56)
[2023-06-15] MEDS: LACTATED RINGERS 500 ML IV ONE (18:02)
--- NOTE | 2023-06-15 19:05 | P.OP ---
Date of Procedure: 06/15/23 Preoperative Diagnosis: Pneumoperitoneum Postoperative Diagnosis: Contained Perforation Procedure(s) Performed: Diagnostic Laparoscopy Anesthesia: MAC Surgeon: Tree Roy Condition: stable Disposition: floor Operative Findings: See Note Description of Procedure: The patient was brought to the operating suite in placed in the supine position. Anesthesia was given. The patient was prepped and draped in usual sterile fashion. Timeout was performed. A 5 mm optiview was used to access the abdomen. Additional 5 mm ports were placed. The abdomen was inspected . There was purulent fluid noted around the greater curvature. The short gastrics were taken down with a ligasure device. On inspection there was a walled off perforation at the greater curvature. The abdomen was thoroughly irrigated. At this point a 19 F KAMERON was placd next to the perforation. The ports were removed. Skin renata were placed. The patient tolerated the procedure well and was sent to the PACU in stable condition.
[2023-06-16] MEDS: FOLIC ACID 1 MG TAB PO SCH (10:00)
[2023-06-16 10:23] LABS: Basophils # (A) 0.02 X 10*3/uL (0.00-0.10); Basophils % (A) 0.2 %; Eosinophils # (A) 0 X 10*3/uL (0.04-0.35); Eosinophils % (A) 0 %; HCT 27.8 % (37.2-46.3); HGB 8.9 g/dL (12.0-15.0); Lymphocytes # (A) 0.63 X 10*3/uL (0.90-5.00); Lymphocytes % (A) 6.9 %; MCH 33.2 pg (27.0-32.0); MCV 103.7 FL (80.0-97.0); Mean Platelet Volume 10.6 FL (9.5-12.2); Monocytes # (A) 1.01 X 10*3/uL (0.20-1.00); NRBC Per 100 WBC 0 X 10*3/uL (0.00-0.01); Neutrophils # (A) 7.16 X 10*3/uL (1.80-7.70); Neutrophils % (A) 78.3 %; Platelet Count 101 X 10*3/uL (140-440); RBC 2.68 X 10*6/uL (4.10-5.20); RDW 16.5 % (11.5-14.5); WBC 9.15 X 10*3/uL (4.50-10.00)
--- NOTE | 2023-06-16 10:44 | P.PN ---
Subjective Progress Note Date: 06/16/23 Principal diagnosis: Abdominal pain Patient doing better today. Yesterday was having abdominal pain. Underwent diagnostic laparoscopy yesterday. Drain was placed. She was found to have suspected perforation at the greater curvature of the stomach that had sealed itself off. Patient remains NPO. No gastric tube. KAMERON drain is serosanguineous. Objective - Vital Signs Vital signs: Vital Signs Temp 97.5 F L 06/16/23 08:00 Pulse 65 06/16/23 08:00 Resp 17 06/16/23 08:00 BP 132/60 06/16/23 08:00 Pulse Ox 98 06/16/23 08:00 FiO2 Intake & Output 06/15/23 06/16/23 06/16/23 18:59 06:59 18:59 Intake Total 1350 Output Total 615 620 Balance -615 730 Intake: IV 100 Intake, IV Titration 1250 Amount Lactated Ringers 1,000 ml 1250 @ 125 mls/hr IV .Q8H [facility] Rx#:[id number] Output: Drainage 170 Left Abdomen 170 Urine 600 450 Estimated Blood Loss 15 Other: Voiding Method External Catheter Indwelling Catheter - Exam Abdomen: Soft, nondistended, mild tenderness, incisions clean and dry, KAMERON intact - Labs CBC & Chem 7: 06/16/23 04:27 06/15/23 08:16 Labs: Abnormal Lab Results - Last 24 Hours (Table) 06/15/23 06/16/23 Range/Units 13:10 04:27 RBC 2.68 L (4.10-5.20) X 10*6/uL Hgb 8.9 L (12.0-15.0) g/dL Hct 27.8 L (37.2-46.3) % MCV 103.7 H (80.0-97.0) FL MCH 33.2 H (27.0-32.0) pg RDW 16.5 H (11.5-14.5) % Plt Count 101 L (140-440) X 10*3/uL Immature Gran # 0.33 H (0.00-0.04) X 10*3/uL Lymphocytes # 0.63 L (0.90-5.00) X 10*3/uL Monocytes # 1.01 H (0.20-1.00) X 10*3/uL Eosinophils # 0 L (0.04-0.35) X 10*3/uL Total Bilirubin 2.2 H (0.2-1.3) mg/dL Unconjugated Bilirubin 1.7 H (0.0-1.1) mg/dL AST 60 H (14-36) U/L ALT 38 H (4-34) U/L Total Protein 5.2 L (6.3-8.2) g/dL Albumin 2.0 L (3.5-5.0) g/dL Assessment and Plan (1) Gastric perforation Narrative/Plan: Patient came to the hospital with abdominal pain. Ultrasound done through the ER suggested possible pancreatic head mass or pseudocyst. CAT scan performed yesterday instead showed pneumoperitoneum with free fluid. Diagnostic laparoscopy suggest perforation site coming from greater curvature of stomach. Doing better at this time. Will hold off on MRI of the pancreas at this time. CAT scan from 06/08 with IV contrast did not show any obvious pancreatic pathology. Would consider short-term follow-up CT pancreas or MRI pancreas after the patient is fully recovered from this event. Likewise patient should have upper endoscopy performed in the next 2 to 3 months to confirm healing of the suspected ulcer and to rule out neoplastic changes in the stomach. Continue antiacids. Patient apparently allergic to omeprazole. Continue IV Pepcid for now. Keep NPO. Continue antibiotics. Current Visit: Yes Status: Acute Code(s): K25.5 - CHRONIC OR UNSPECIFIED GASTRIC ULCER WITH PERFORATION SNOMED Code(s): 624389041
[2023-06-16 11:02] LABS: ALT 38 U/L (8-44); AST 54 U/L (13-35); Albumin 2.2 g/dL (3.8-4.9); Albumin/Globulin Ratio 0.76 Ratio (1.60-3.17); Alkaline Phosphatase 103 U/L (41-126); Calcium 8.6 mg/dL (8.7-10.3); Carbon Dioxide 23.4 mmol/L (21.6-31.8); Chloride 105 mmol/L (96-109); Globulin 2.9 g/dL (1.6-3.3); Glucose 110 mg/dL (70-110); Potassium 4.8 mmol/L (3.5-5.5); Sodium 136 mmol/L (135-145); Total Bilirubin 1.7 mg/dL (0.3-1.2); Total Protein 5.1 g/dL (6.2-8.2)
--- NOTE | 2023-06-16 14:21 | P.PN ---
Subjective Progress Note Date: 06/16/23 Hospital Course: 78-year-old female with history of atrial fibrillation on Eliquis, diastolic CHF, hypertension, recent hospitalization for pneumonia, was also found to have cholecystitis, presenting with abdominal pain. Abdominal ultrasound shows subcentimeter hypoechoic area within the pancreas head concerning for pseudocyst formation versus neoplasm, thickened gallbladder wall, concerning for tania cystitis. CBD within normal limits. WBC 7.4, hemoglobin 164, creatinine 1.25, around baseline, total bilirubin 2.6, AST 101, ALT 57, ALP 144, lipase 948. Patient admitted for gallstone pancreatitis, started on IV fluids, pain control. Surgery also consulted. Underwent diagnostic laparoscopy, found to have suspected perforation at the greater curvature of the stomach, drain was placed. Subjective: Patient seen and examined at bedside. No acute events overnight. Abdominal pain is improved. Pertinent positives and negatives as discussed above, a complete review of systems was performed and all other systems are negative. Vitals Signs Reviewed. General: Nontoxic, no distress, appears at stated age Derm: Warm, dry Head: Atraumatic, normocephalic, symmetric Eyes: EOMI, no lid lag, anicteric sclera Mouth: No lip lesion, mucus membranes moist Cardiovascular: S1S2 reg, no murmur Lungs: CTA bilateral, no rhonchi, no rales, no accessory muscle use Abdominal: Soft, tender to palpation in all quadrants, more prominent in epigastric region, no guarding, no appreciable organomegaly Ext: No gross muscle atrophy, no edema, no contractures Neuro: CN II-XI grossly intact, no focal neuro deficits Psych: Alert, oriented, appropriate affect Data Reviewed Today: Pertinent Labs: WBC 9.15, hemoglobin 8.9, creatinine 1.4, total bili 1.7 Imaging: No new imaging Assessment and Plan: Active: Perforated stomach status post laparoscopy, KAMERON drain placement Pneumoperitoneum Acute pancreatitis Suspected pancreatic pseudocyst versus neoplasm Cholecystitis? Leukocytosis, resolved -Surgery note reviewed, continue supportive therapy, keep n.p.o. -Continue IV ceftriaxone 1 g every 24 hours, IV Flagyl 500 3 times daily -Continue IV fluids lactated ringer 125 cc an hour, may need to pare back if any respiratory complaints given history of CHF Acute blood loss anemia -Continue Pepcid 20 IV daily Atrial fibrillation -Continue metoprolol 25 twice daily -Holding Eliquis History of diastolic CHF Hypertension -Hold diuretics DVT ppx: SCDs Code status: FC Anticipated discharge place: Pending clinical course Anticipated discharge time: Pending clinical course Objective - Vital Signs Vital signs: Vital Signs Temp 97.7 F 06/16/23 13:27 Pulse 80 06/16/23 13:27 Resp 17 06/16/23 13:27 BP 121/65 06/16/23 13:27 Pulse Ox 99 06/16/23 13:27 FiO2 Intake & Output 06/15/23 06/16/23 06/16/23 18:59 06:59 18:59 Intake Total 1350 Output Total 615 620 Balance -615 730 Intake: IV 100 Intake, IV Titration 1250 Amount Lactated Ringers 1,000 ml 1250 @ 125 mls/hr IV .Q8H [facility] Rx#:[id number] Output: Drainage 170 Left Abdomen 170 Urine 600 450 Estimated Blood Loss 15 Other: Voiding Method External Catheter Indwelling Catheter - Labs CBC & Chem 7: 06/16/23 04:27 06/16/23 04:27 Labs: Abnormal Lab Results - Last 24 Hours (Table) 06/16/23 06/16/23 Range/Units 04:27 04:27 RBC 2.68 L (4.10-5.20) X 10*6/uL Hgb 8.9 L (12.0-15.0) g/dL Hct 27.8 L (37.2-46.3) % MCV 103.7 H (80.0-97.0) FL MCH 33.2 H (27.0-32.0) pg RDW 16.5 H (11.5-14.5) % Plt Count 101 L (140-440) X 10*3/uL Immature Gran # 0.33 H (0.00-0.04) X 10*3/uL Lymphocytes # 0.63 L (0.90-5.00) X 10*3/uL Monocytes # 1.01 H (0.20-1.00) X 10*3/uL Eosinophils # 0 L (0.04-0.35) X 10*3/uL BUN 49.0 H (9.0-27.0) mg/dL Est GFR (CKD-EPI) 38 L (>=60) BUN/Creatinine Ratio 35.00 H (12.00-20.00) Ratio Calcium 8.6 L (8.7-10.3) mg/dL Total Bilirubin 1.7 H (0.3-1.2) mg/dL AST 54 H (13-35) U/L Total Protein 5.1 L (6.2-8.2) g/dL Albumin 2.2 L (3.8-4.9) g/dL Albumin/Globulin Ratio 0.76 L (1.60-3.17) Ratio Microbiology - Last 24 Hours (Table) 06/15/23 01:52 Blood Culture - Preliminary Blood
[2023-06-17 05:46] LABS: ALT 32 U/L (4-34); AST 46 U/L (14-36); African American GFR (CKD) 39 (>60 ml/min/1.73 sqM); Albumin 1.8 g/dL (3.5-5.0); Albumin/Globulin Ratio 0.6; Alkaline Phosphatase 94 U/L (38-126); Anion Gap 5 mmol/L; Blood Urea Nitrogen 58 mg/dL (7-17); Calcium 8.1 mg/dL (8.4-10.2); Carbon Dioxide 22 mmol/L (22-30); Chloride 108 mmol/L (98-107); Globulin 3.1 g/dL; Glucose 81 mg/dL (74-99); Non-African American GFR(CKD) 33 (>60 ml/min/1.73 sqM); Potassium 4.2 mmol/L (3.5-5.1); Sodium 135 mmol/L (137-145); Total Bilirubin 1.4 mg/dL (0.2-1.3); Total Protein 4.9 g/dL (6.3-8.2)
[2023-06-17 05:48] LABS: Basophils % (A) 0 %; Eosinophils # (A) 0.1 k/uL (0-0.7); Eosinophils % (A) 1 %; HCT 28.8 % (34.0-46.0); HGB 9.4 gm/dL (11.4-16.0); Hypochromasia Slight; Lymphocytes # (A) 1.9 k/uL (1.0-4.8); Lymphocytes % (A) 23 %; MCH 35.1 pg (25.0-35.0); MCHC 32.8 g/dL (31.0-37.0); MCV 107.1 fL (80.0-100.0); Macrocytosis Marked; Monocytes # (A) 0.5 k/uL (0-1.0); Monocytes % (A) 6 %; Neutrophils # (A) 5.4 k/uL (1.3-7.7); Neutrophils % (A) 67 %; Platelet Count 119 k/uL (150-450); RBC 2.69 m/uL (3.80-5.40); WBC 8.1 k/uL (3.8-10.6)
--- NOTE | 2023-06-17 11:56 | P.PN ---
Subjective Progress Note Date: 06/17/23 CHIEF COMPLAINT: Pneumoperitoneum HISTORY OF PRESENT ILLNESS: Patient is postop day #2 status post diagnostic laparoscopy for contained perforation at the greater curvature of the stomach. Patient remains NPO. She reports abdominal pain with coughing. She denies any nausea or vomiting. Denies any flatus. KAMERON drain 30 mL serosanguineous fluid. Afebrile. WBC is 8.1 Hgb 9.4 platelets 119 Cr 1.47 PHYSICAL EXAM: VITAL SIGNS: Reviewed. GENERAL: Well-developed in no acute distress. ABDOMEN: Soft. Nondistended. Mild tenderness at incision sites. Incisions clean and dry. KAMERON drain intact serosanguineous fluid. NEUROLOGIC: Alert and oriented. Cranial nerves II through XII grossly intact. ASSESSMENT: 1. Gastric perforation 2. Possible pancreatic head mass or pseudocyst on ultrasound PLAN: -Keep patient n.p.o. -Continue IV fluids -Continue pain management -Encourage patient ambulate. PT OT on consult -Continue antibiotics -Encourage patient to use incentive spirometer -Continue IV pepcid. Allergy to omeprazole Physician Assistant Professor Of English note has been reviewed by physician. Signing provider agrees with the documented findings, assessment, and plan of care. I have personally seen and examined the patient, reviewed the BUSINESS RULES DEVELOPER /PAs history, exam and MDM and agree with the assessment and plan as written. Based on total visit time, I have performed more than 50% of the visit. As above: Patient doing better. Still having some pain. KAMERON drain serosanguineous. Continue antibiotics. Continue antiacids. May have popsicles. Objective - Vital Signs Vital signs: Vital Signs Temp 97.5 F L 06/17/23 08:00 Pulse 68 06/17/23 08:00 Resp 18 06/17/23 08:00 BP 130/78 06/17/23 08:00 Pulse Ox 98 06/17/23 08:01 FiO2 Intake & Output 06/16/23 06/17/23 06/17/23 18:59 06:59 18:59 Intake Total 1000 Output Total 460 10 30 Balance -460 990 -30 Intake: Intake, IV Titration 1000 Amount Lactated Ringers 1,000 ml 1000 @ 125 mls/hr IV .Q8H [facility] Rx#:[id number] Output: Drainage 110 10 30 Left Abdomen 110 10 30 Urine 350 Other: Voiding Method External Catheter Indwelling Catheter - Labs CBC & Chem 7: 06/17/23 05:18 06/17/23 04:03 Labs: Abnormal Lab Results - Last 24 Hours (Table) 06/17/23 06/17/23 Range/Units 04:03 05:18 RBC 2.69 L (3.80-5.40) m/uL Hgb 9.4 L (11.4-16.0) gm/dL Hct 28.8 L (34.0-46.0) % MCV 107.1 H (80.0-100.0) fL MCH 35.1 H (25.0-35.0) pg Plt Count 119 L (150-450) k/uL Macrocytosis Marked A Sodium 135 L (137-145) mmol/L Chloride 108 H (98-107) mmol/L BUN 58 H (7-17) mg/dL Creatinine 1.47 H (0.52-1.04) mg/dL Calcium 8.1 L (8.4-10.2) mg/dL Total Bilirubin 1.4 H (0.2-1.3) mg/dL AST 46 H (14-36) U/L Total Protein 4.9 L (6.3-8.2) g/dL Albumin 1.8 L (3.5-5.0) g/dL Microbiology - Last 24 Hours (Table) 06/15/23 01:52 Blood Culture - Preliminary Blood
[2023-06-17] MEDS: ACETAMINOPHEN IV (For NPO) 1,000 MG in EMPTY BAG 1 BAG IVPB PRN (13:20)
--- NOTE | 2023-06-17 14:17 | P.PN ---
Subjective Progress Note Date: 06/17/23 78-year-old female with history of atrial fibrillation on Eliquis, diastolic CHF, hypertension, recent hospitalization for pneumonia, was also found to have cholecystitis, presenting with abdominal pain. Abdominal ultrasound shows subcentimeter hypoechoic area within the pancreas head concerning for pseudocyst formation versus neoplasm, thickened gallbladder wall, concerning for cholecystitis. CBD within normal limits. WBC 7.4, hemoglobin 164, creatinine 1.25, around baseline, total bilirubin 2.6, AST 101, ALT 57, ALP 144, lipase 948. Patient admitted for gallstone pancreatitis, started on IV fluids, pain control. Surgery also consulted. Underwent diagnostic laparoscopy, found to have suspected perforation at the greater curvature of the stomach, drain was placed. 06/17 Patient was seen and examined. Reports a wet cough. Worsening abdominal pain when coughing. No nausea or vomiting. Surgery recommends NPO and monitor. CBC Hg 9.4 Hct 28.8 MCV 107.1 Plt 119. General: Nontoxic, no distress, appears at stated age Derm: Warm, dry Head: Atraumatic, normocephalic, symmetric Eyes: EOMI, no lid lag, anicteric sclera Mouth: No lip lesion, mucus membranes moist Cardiovascular: S1S2 reg, no murmur Lungs: CTA bilateral, no rhonchi, no rales, no accessory muscle use Abdominal: Soft, tender to palpation in all quadrants, more prominent in epigastric region, no guarding, no appreciable organomegaly Ext: No gross muscle atrophy, no edema, no contractures Neuro: no focal neuro deficits Psych: Alert, oriented, appropriate affect Based on my assessment of this patient, this patient meets a moderate complexity level of care. Patient has a new diagnosis of perforated gastric ulcer with uncertain prognosis. Perforated stomach status post laparoscopy, KAMERON drain placement: Surgery on board, keep NPO, pain management, IV Abx, IV pepcid. Rocephin 1g IV QD, Flagyl 500 mg IV TID. Repeat EGD in 2-3 months. Pneumoperitoneum Acute pancreatitis Suspected pancreatic pseudocyst versus neoplasm: Repeat imaging in the future. Acute blood loss anemia: Transfuse if Hg < 7. Atrial fibrillation History of diastolic CHF Hypertension CODE STATUS: FULL CODE DVT Prophylaxis: SCD GI Prophylaxis: Pepcid IV Designated medical POA if patient is not able to make medical decisions for themselves: I have reviewed the following road consultant notes: Surgery. I have reviewed the results of the following tests: CBC. I have ordered the following tests: CBC. BMP. I have discussed the care of this patient with the following independent historian: I have independently interpreted the following test below: I have discussed the management of this patient with the following physician: Objective - Vital Signs Vital signs: Vital Signs Temp 97.8 F 06/17/23 13:55 Pulse 51 L 06/17/23 13:55 Resp 18 06/17/23 13:55 BP 117/63 06/17/23 13:55 Pulse Ox 98 06/17/23 08:01 FiO2 Intake & Output 06/16/23 06/17/23 06/17/23 18:59 06:59 18:59 Intake Total 1000 Output Total 460 10 30 Balance -460 990 -30 Intake: Intake, IV Titration 1000 Amount Lactated Ringers 1,000 ml 1000 @ 125 mls/hr IV .Q8H [facility] Rx#:[id number] Output: Drainage 110 10 30 Left Abdomen 110 10 30 Urine 350 Other: Voiding Method External Catheter Indwelling Catheter - Labs CBC & Chem 7: 06/17/23 05:18 06/17/23 04:03 Labs: Abnormal Lab Results - Last 24 Hours (Table) 06/17/23 06/17/23 Range/Units 04:03 05:18 RBC 2.69 L (3.80-5.40) m/uL Hgb 9.4 L (11.4-16.0) gm/dL Hct 28.8 L (34.0-46.0) % MCV 107.1 H (80.0-100.0) fL MCH 35.1 H (25.0-35.0) pg Plt Count 119 L (150-450) k/uL Macrocytosis Marked A Sodium 135 L (137-145) mmol/L Chloride 108 H (98-107) mmol/L BUN 58 H (7-17) mg/dL Creatinine 1.47 H (0.52-1.04) mg/dL Calcium 8.1 L (8.4-10.2) mg/dL Total Bilirubin 1.4 H (0.2-1.3) mg/dL AST 46 H (14-36) U/L Total Protein 4.9 L (6.3-8.2) g/dL Albumin 1.8 L (3.5-5.0) g/dL Microbiology - Last 24 Hours (Table) 06/15/23 01:52 Blood Culture - Preliminary Blood
[2023-06-18 10:07] LABS: HCT 32.6 % (34.0-46.0); HGB 10.3 gm/dL (11.4-16.0); Hypochromasia Marked; MCH 34.3 pg (25.0-35.0); MCHC 31.4 g/dL (31.0-37.0); MCV 109.3 fL (80.0-100.0); Macrocytosis Marked; Mean Platelet Volume 7.9; RBC 2.99 m/uL (3.80-5.40); RDW 15.2 % (11.5-15.5); WBC 5.7 k/uL (3.8-10.6)
[2023-06-18 10:09] LABS: African American GFR (CKD) 45 (>60 ml/min/1.73 sqM); Anion Gap 2 mmol/L; Blood Urea Nitrogen 51 mg/dL (7-17); Calcium 8.1 mg/dL (8.4-10.2); Carbon Dioxide 24 mmol/L (22-30); Chloride 110 mmol/L (98-107); Glucose 85 mg/dL (74-99); Non-African American GFR(CKD) 39 (>60 ml/min/1.73 sqM); Potassium 4.3 mmol/L (3.5-5.1); Sodium 136 mmol/L (137-145)
[2023-06-18] MEDS ORDERED: IPRATROPIUM-ALBUTEROL 3 ML NEB INHALATION PRN (11:08)
--- NOTE | 2023-06-18 11:13 | P.PN ---
Subjective Progress Note Date: 06/18/23 78-year-old female with history of atrial fibrillation on Eliquis, diastolic CHF, hypertension, recent hospitalization for pneumonia, was also found to have cholecystitis, presenting with abdominal pain. Abdominal ultrasound shows subcentimeter hypoechoic area within the pancreas head concerning for pseudocyst formation versus neoplasm, thickened gallbladder wall, concerning for cholecystitis. CBD within normal limits. WBC 7.4, hemoglobin 164, creatinine 1.25, around baseline, total bilirubin 2.6, AST 101, ALT 57, ALP 144, lipase 948. Patient admitted for gallstone pancreatitis, started on IV fluids, pain control. Surgery also consulted. Underwent diagnostic laparoscopy, found to have suspected perforation at the greater curvature of the stomach, drain was placed. 06/17 Patient was seen and examined. Reports a wet cough. Worsening abdominal pain when coughing. No nausea or vomiting. Surgery recommends NPO and monitor. CBC Hg 9.4 Hct 28.8 MCV 107.1 Plt 119. 06/18 Patient was seen and examined. Reports a continued cough. Unable to take a full deep breath. Able to tolerate a Popsicle today. CBC Hg 10.3 Hct 32.6 MCV 109.3. BMP Na 136, Cl 110, BUN 51, Cr 1.3, Ca 8.1. General: Nontoxic, no distress, appears at stated age Derm: Warm, dry Head: Atraumatic, normocephalic, symmetric Eyes: EOMI, no lid lag, anicteric sclera Mouth: No lip lesion, mucus membranes moist Cardiovascular: S1S2 reg, no murmur Lungs: Expiratory wheezing bilateral, no rhonchi, no rales, no accessory muscle use Abdominal: Soft, tender to palpation in all quadrants, more prominent in epigastric region, no guarding, no appreciable organomegaly Ext: No gross muscle atrophy, no edema, no contractures Neuro: no focal neuro deficits Psych: Alert, oriented, appropriate affect Based on my assessment of this patient, this patient meets a moderate complexity level of care. Patient has a new diagnosis of perforated gastric ulcer with uncertain prognosis. Cough: Obtain CXR. Encouraged incentive spirometer. DuoNeb Q4H PRN for SOB/wheezing. Perforated stomach status post laparoscopy, KAMERON drain placement: Surgery on board, keep NPO, pain management, IV Abx, IV pepcid. Rocephin 1g IV QD, Flagyl 500 mg IV TID. Repeat EGD in 2-3 months. Pneumoperitoneum Acute pancreatitis Suspected pancreatic pseudocyst versus neoplasm: Repeat imaging in the future. Acute blood loss anemia: Transfuse if Hg < 7. Atrial fibrillation History of diastolic CHF Hypertension CODE STATUS: FULL CODE DVT Prophylaxis: SCD GI Prophylaxis: Pepcid IV Designated medical POA if patient is not able to make medical decisions for themselves: I have reviewed the following art sales consultant notes: I have reviewed the results of the following tests: CBC, BMP. I have ordered the following tests: CBC. BMP. CXR. Mag I have discussed the care of this patient with the following independent historian: I have independently interpreted the following test below: I have discussed the management of this patient with the following physician: Objective - Vital Signs Vital signs: Vital Signs Temp 97.7 F 06/18/23 08:00 Pulse 57 L 06/18/23 08:00 Resp 17 06/18/23 08:00 BP 136/69 06/18/23 08:00 Pulse Ox 100 06/18/23 08:00 FiO2 Intake & Output 06/17/23 06/18/23 06/18/23 18:59 06:59 18:59 Output Total 30 450 50 Balance -30 -450 -50 Output: Drainage 30 100 50 Left Abdomen 30 100 50 Urine 350 Other: Voiding Method Indwelling Catheter Indwelling Catheter Indwelling Catheter # Voids 500 - Labs CBC & Chem 7: 06/18/23 08:48 06/18/23 08:48 Labs: Abnormal Lab Results - Last 24 Hours (Table) 06/18/23 06/18/23 Range/Units 08:48 08:48 RBC 2.99 L (3.80-5.40) m/uL Hgb 10.3 L (11.4-16.0) gm/dL Hct 32.6 L (34.0-46.0) % MCV 109.3 H (80.0-100.0) fL Macrocytosis Marked A Sodium 136 L (137-145) mmol/L Chloride 110 H (98-107) mmol/L BUN 51 H (7-17) mg/dL Creatinine 1.30 H (0.52-1.04) mg/dL Calcium 8.1 L (8.4-10.2) mg/dL Microbiology - Last 24 Hours (Table) 06/15/23 01:52 Blood Culture - Preliminary Blood
--- NOTE | 2023-06-18 11:38 | XR ---
EXAMINATION TYPE: XR chest 1V portable DATE OF EXAM: 06/18/2023 HISTORY: Shortness of breath. COMPARISON: 06/09/2023 TECHNIQUE: Single view of the chest is submitted. FINDINGS: Demonstrated are scattered senescent parenchymal change. Cardiomegaly with prominence of the pulmonary interstitium which may reflect interstitial edema. Smal l effusions suggested. Hilar and mediastinal structures are within normal limits. Degenerative changes are seen of the dorsal spine. IMPRESSION: 1. Correlate for mild interstitial edema.
--- NOTE | 2023-06-18 11:56 | P.PN ---
Subjective Progress Note Date: 06/18/23 CHIEF COMPLAINT: Pneumoperitoneum HISTORY OF PRESENT ILLNESS: Patient is postop day #3 status post diagnostic laparoscopy for contained perforation at the greater curvature of the stomach. Patient remains NPO except ice chip. She does complain of abdominal pain, on the right side of the abdomen. She preferred the IV Tylenol over the morphine. Still no bowel activity. Denies any nausea or vomiting. She did sit in at the bedside chair yesterday and did work with physical therapy at the bedside. Afebrile. WBC 5.7 Hgb 10.3 creatinine 1.3 KAMERON drain 150 mL serosanguineous output PHYSICAL EXAM: VITAL SIGNS: Reviewed. GENERAL: Well-developed in no acute distress. ABDOMEN: Soft. Nondistended. Tenderness right side abdomen. There is a stripe of ecchymosis along the right flank NEUROLOGIC: Alert and oriented. Cranial nerves II through XII grossly intact. ASSESSMENT: 1. Gastric perforation 2. Possible pancreatic head mass or pseudocyst on ultrasound PLAN: -Advance diet to clear liquids -Resume IV Tylenol for pain management -Encourage patient ambulate. PT OT on consult -Continue antibiotics -Encourage patient to use incentive spirometer -Continue IV pepcid. Allergy to omeprazole -Would consider short-term follow-up CT pancreas or MRI pancreas after the patient is fully recovered from this event. Likewise patient should have upper endoscopy performed in the next 2 to 3 months to confirm healing of the suspected ulcer and to rule out neoplastic changes in the stomach. Physician Honing Machine Operator Semiautomatic note has been reviewed by physician. Signing provider agrees with the documented findings, assessment, and plan of care. I have personally seen and examined the patient, reviewed the NURSING TECH /PAs history, exam and MDM and agree with the assessment and plan as written. Based on total v isit time, I have performed more than 50% of the visit. As above: Patient doing better today. KAMERON drain serosanguineous. Begin clear liquids. Continue antiacids. Objective - Vital Signs Vital signs: Vital Signs Temp 97.7 F 06/18/23 08:00 Pulse 57 L 06/18/23 08:00 Resp 17 06/18/23 08:00 BP 136/69 06/18/23 08:00 Pulse Ox 100 06/18/23 08:00 FiO2 Intake & Output 06/17/23 06/18/23 06/18/23 18:59 06:59 18:59 Output Total 30 450 50 Balance -30 -450 -50 Output: Drainage 30 100 50 Left Abdomen 30 100 50 Urine 350 Other: Voiding Method Indwelling Catheter Indwelling Catheter Indwelling Catheter # Voids 500 - Labs CBC & Chem 7: 06/18/23 08:48 06/18/23 08:48 Labs: Abnormal Lab Results - Last 24 Hours (Table) 06/18/23 06/18/23 Range/Units 08:48 08:48 RBC 2.99 L (3.80-5.40) m/uL Hgb 10.3 L (11.4-16.0) gm/dL Hct 32.6 L (34.0-46.0) % MCV 109.3 H (80.0-100.0) fL Macrocytosis Marked A Sodium 136 L (137-145) mmol/L Chloride 110 H (98-107) mmol/L BUN 51 H (7-17) mg/dL Creatinine 1.30 H (0.52-1.04) mg/dL Calcium 8.1 L (8.4-10.2) mg/dL Microbiology - Last 24 Hours (Table) 06/15/23 01:52 Blood Culture - Preliminary Blood
[2023-06-18] MEDS: ACETAMINOPHEN IV (For NPO) 1,000 MG in EMPTY BAG 1 BAG IVPB SCH (12:51)
[2023-06-18 13:23] LABS: Platelet Count 91 k/uL (150-450)
[2023-06-19] MEDS: ACETAMINOPHEN TAB 500 MG TAB PO PRN (13:33)
--- NOTE | 2023-06-19 13:48 | P.PN ---
Subjective Progress Note Date: 06/19/23 CHIEF COMPLAINT: Pneumoperitoneum HISTORY OF PRESENT ILLNESS: Patient is postop day #4 status post diagnostic laparoscopy for contained perforation at the greater curvature of the stomach. Patient is tolerating the clear liquids. Complains of right-sided pain with movement. Denies any nausea or vomiting. Still no bowel activity. She does report some mild bloating. KAMERON drain output has increased at 280 mL serosanguineous but more serous in color. Chest x-ray correlate for mild interstitial edema. PHYSICAL EXAM: VITAL SIGNS: Reviewed. GENERAL: Well-developed in no acute distress. ABDOMEN: Soft. Nondistended. Tenderness right side abdomen. There is a stripe of ecchymosis along the right flank. Leaking around KAMERON drain site NEUROLOGIC: Alert and oriented. Cranial nerves II through XII grossly intact. ASSESSMENT: 1. Gastric perforation 2. Possible pancreatic head mass or pseudocyst on ultrasound PLAN: -Continue clear liquids -Discontinue IV fluids -Oral Tylenol added for pain management -Encourage patient ambulate. PT OT on consult -Continue antibiotics -Encourage patient to use incentive spirometer -Continue IV pepcid. Allergy to omeprazole -Would consider short-term follow-up CT pancreas or MRI pancreas after the patient is fully recovered from this event. Likewise patient should have upper endoscopy performed in the next 2 to 3 months to confirm healing of the batista spected ulcer and to rule out neoplastic changes in the stomach. Physician Radiology Interventional Physician note has been reviewed by physician. Signing provider agrees with the documented findings, assessment, and plan of care. I have personally seen and examined the patient, reviewed the DIABETIC EDUCATOR /PAs history, exam and MDM and agree with the assessment and plan as written. Based on total visit time, I have performed more than 50% of the visit. As above: Patient feels well today. Only mild pain. Tolerating clear liquids. Will advance diet. Continue antiacids. Patient with increased ascitic leak from KAMERON site. Diuretics initiated. Will follow. Objective - Vital Signs Vital signs: Vital Signs Temp 97.6 F 06/19/23 07:08 Pulse 72 06/19/23 11:16 Resp 18 06/19/23 07:08 BP 173/81 06/19/23 07:08 Pulse Ox 94 L 06/19/23 09:19 FiO2 21 06/18/23 14:53 Intake & Output 06/18/23 06/19/2306/19/24 18:59 06:59 18:59 Output Total 130 630 100 Balance -130 -630 -100 Weight 79.379 kg Output: Drainage 130 280 100 Left Abdomen 130 280 100 Urine 350 Other: Voiding Method Indwelling Catheter Indwelling Catheter Diaper Incontinent # Voids 3 - Labs CBC & Chem 7: 06/18/23 08:48 06/18/23 08:48 Labs: Abnormal Lab Results - Last 24 Hours (Table) 06/18/23 Range/Units 08:48 Plt Count 91 L (150-450) k/uL Microbiology - Last 24 Hours (Table) 06/15/23 01:52 Blood Culture - Preliminary Blood
--- NOTE | 2023-06-19 14:13 | P.PN ---
Subjective Progress Note Date: 06/19/23 78-year-old female with history of atrial fibrillation on Eliquis, diastolic CHF, hypertension, recent hospitalization for pneumonia, was also found to have cholecystitis, presenting with abdominal pain. Abdominal ultrasound shows subcentimeter hypoechoic area within the pancreas head concerning for pseudocyst formation versus neoplasm, thickened gallbladder wall, concerning for cholecystitis. CBD within normal limits. WBC 7.4, hemoglobin 164, creatinine 1.25, around baseline, total bilirubin 2.6, AST 101, ALT 57, ALP 144, lipase 948. Patient admitted for gallstone pancreatitis, started on IV fluids, pain control. Surgery also consulted. Underwent diagnostic laparoscopy, found to have suspected perforation at the greater curvature of the stomach, drain was placed. 06/17 Patient was seen and examined. Reports a wet cough. Worsening abdominal pain when coughing. No nausea or vomiting. Surgery recommends NPO and monitor. CBC Hg 9.4 Hct 28.8 MCV 107.1 Plt 119. 06/18 Patient was seen and examined. Reports a continued cough. Unable to take a full deep breath. Able to tolerate a Popsicle today. CBC Hg 10.3 Hct 32.6 MCV 109.3. BMP Na 136, Cl 110, BUN 51, Cr 1.3, Ca 8.1. 06/19 Patient was seen and examined. Started on CLD. Complains of increased pain in her abdomen. Increased drainage from the KAMERON drain. CXR mild interstitial edema. General: Nontoxic, no distress, appears at stated age Derm: Warm, dry Head: Atraumatic, normocephalic, symmetric Eyes: EOMI, no lid lag, anicteric sclera Mouth: No lip lesion, mucus membranes moist Cardiovascular: S1S2 reg, no murmur Lungs: Decreased BS bilateral, no rhonchi, no rales, no accessory muscle use Abdominal: Soft, tender to palpation in all quadrants, more prominent in epigastric region, no guarding, no appreciable organomegaly, KAMERON drain with serousanguinous drainage. Ext: No gross muscle atrophy, no edema, no contractures Neuro: no focal neuro deficits Psych: Alert, oriented, appropriate affect Based on my assessment of this patient, this patient meets a moderate complexity level of care. Patient has a new diagnosis of perforated gastric ulcer with uncertain prognosis. Cough: Lasix 40 mg IV ordered. Encouraged incentive spirometer. DuoNeb Q4H PRN for SOB/wheezing. Perforated stomach status post laparoscopy, KAMERON drain placement: Surgery on board, CLD and advance, pain management, IV Abx, IV pepcid. Rocephin 1g IV QD, Flagyl 500 mg IV TID. Repeat EGD in 2-3 months. Pneumoperitoneum Acute pancreatitis Suspected pancreatic pseudocyst versus neoplasm: Repeat imaging in the future. Acute blood loss anemia: Transfuse if Hg < 7. Atrial fibrillation History of diastolic CHF Hypertension CODE STATUS: FULL CODE DVT Prophylaxis: SCD GI Prophylaxis: Pepcid IV Designated medical POA if patient is not able to make medical decisions for themselves: I have reviewed the following health and wellness sales consultant notes: Surgery note. I have reviewed the results of the following tests: I have ordered the following tests: CBC. BMP I have discussed the care of this patient with the following independent historian: I have independently interpreted the following test below: CXR I have discussed the management of this patient with the following physician: Objective - Vital Signs Vital signs: Vital Signs Temp 97.6 F 06/19/23 07:08 Pulse 72 06/19/23 11:16 Resp 18 06/19/23 07:08 BP 173/81 06/19/23 07:08 Pulse Ox 94 L 06/19/23 09:19 FiO2 21 06/18/23 14:53 Intake & Output 06/18/23 06/19/23 06/19/23 18:59 06:59 18:59 Output Total 130 630 100 Balance -130 -630 -100 Weight 79.379 kg Output: Drainage 130 280 100 Left Abdomen 130 280 100 Urine 350 Other: Voiding Method Indwelling Catheter Indwelling Catheter Diaper Incontinent # Voids 3 - Labs CBC & Chem 7: 06/18/23 08:48 06/18/23 08:48 Labs: Microbiology - Last 24 Hours (Table) 06/15/23 01:52 Blood Culture - Preliminary Blood
[2023-06-19] MEDS: FUROSEMIDE 10 MG/ML 4 ML VIAL IV STA (14:25)
[2023-06-20 07:06] LABS: HGB 11.2 gm/dL (11.4-16.0); Hypochromasia Moderate; MCH 34.3 pg (25.0-35.0); MCHC 31.9 g/dL (31.0-37.0); MCV 107.7 fL (80.0-100.0); Macrocytosis Marked; Mean Platelet Volume 7.8; Platelet Count 110 k/uL (150-450); RBC 3.25 m/uL (3.80-5.40); WBC 6.2 k/uL (3.8-10.6)
[2023-06-20 07:53] LABS: African American GFR (CKD) 68 (>60 ml/min/1.73 sqM); Anion Gap 1 mmol/L; Blood Urea Nitrogen 32 mg/dL (7-17); Carbon Dioxide 25 mmol/L (22-30); Chloride 109 mmol/L (98-107); Glucose 83 mg/dL (74-99); Non-African American GFR(CKD) 59 (>60 ml/min/1.73 sqM); Potassium 4.1 mmol/L (3.5-5.1); Sodium 135 mmol/L (137-145)
--- NOTE | 2023-06-20 13:27 | P.PN ---
Subjective Progress Note Date: 06/20/23 78-year-old female with history of atrial fibrillation on Eliquis, diastolic CHF, hypertension, recent hospitalization for pneumonia, was also found to have cholecystitis, presenting with abdominal pain. Abdominal ultrasound shows subcentimeter hypoechoic area within the pancreas head concerning for pseudocyst formation versus neoplasm, thickened gallbladder wall, concerning for cholecystitis. CBD within normal limits. WBC 7.4, hemoglobin 164, creatinine 1.25, around baseline, total bilirubin 2.6, AST 101, ALT 57, ALP 144, lipase 948. Patient admitted for gallstone pancreatitis, started on IV fluids, pain control. Surgery also consulted. Underwent diagnostic laparoscopy, found to have suspected perforation at the greater curvature of the stomach, drain was placed. 06/17 Patient was seen and examined. Reports a wet cough. Worsening abdominal pain when coughing. No nausea or vomiting. Surgery recommends NPO and monitor. CBC Hg 9.4 Hct 28.8 MCV 107.1 Plt 119. 06/18 Patient was seen and examined. Reports a continued cough. Unable to take a full deep breath. Able to tolerate a Popsicle today. CBC Hg 10.3 Hct 32.6 MCV 109.3. BMP Na 136, Cl 110, BUN 51, Cr 1.3, Ca 8.1. 06/19 Patient was seen and examined. Started on CLD. Complains of increased pain in her abdomen. Increased drainage from the KAMERON drain (130 cc over the past 24H). CXR mild interstitial edema. Given 1 dose of Lasix 40 mg IV. 06/20 Patient was seen and examined. Started on FLD. Patient reports muscular weakness would like to participate with PT more. Continue serousanguinous drainage from the KAMERON drain (410 cc over the past 24H). Plans to start Lasix 40 mg IV QD. CBC Hg 11.2 MCV 107.7 Plt 110. BMP Na 135, Cl 109, BUN 32, Ca 8. General: Nontoxic, no distress, appears at stated age Derm: Warm, dry Head: Atraumatic, normocephalic, symmetric Eyes: EOMI, no lid lag, anicteric sclera Mouth: No lip lesion, mucus membranes moist Cardiovascular: S1S2 reg, no murmur Lungs: Decreased BS bilateral, no rhonchi, no rales, no accessory muscle use Abdominal: Soft, tender to palpation in all quadrants, more prominent in epigast brianne region, no guarding, no appreciable organomegaly, KAMERON drain with serousanguinous drainage. Ext: No gross muscle atrophy, no edema, no contractures Neuro: no focal neuro deficits Psych: Alert, oriented, appropriate affect Based on my assessment of this patient, this patient meets a moderate complexity level of care. Patient has a new diagnosis of perforated gastric ulcer with uncertain prognos is. Interstitial edema: Lasix 40 mg IV QD. Strict intake and outtake. Daily weights. Encouraged incentive spirometer. DuoNeb Q4H PRN for SOB/wheezing. Perforated stomach status post laparoscopy, KAMERON drain placement: Surgery on board, FLD and advance, pain management, IV Abx, IV pepcid. Rocephin 1g IV QD, Flagyl 500 mg IV TID. Repeat EGD in 2-3 months. Pneumoperitoneum Acute pancreatitis Suspected pancreatic pseudocyst versus neoplasm: Repeat imaging in the future. Acute blood loss anemia: Transfuse if Hg < 7. Atrial fibrillation History of diastolic CHF Hypertension CODE STATUS: FULL CODE DVT Prophylaxis: SCD GI Prophylaxis: Pepcid IV Designated medical POA if patient is not able to make medical decisions for themselves: I have reviewed the following marketing regional consultant notes: Surgery note. I have reviewed the results of the following tests: CBC, BMP. I have ordered the following tests: CBC, BMP. I have discussed the care of this patient with the following independent historian: I have independently interpreted the following test below: I have discussed the management of this patient with the following physician: Objective - Vital Signs Vital signs: Vital Signs Temp 97.2 F L 06/20/23 08:17 Pulse 67 06/20/23 08:17 Resp 18 06/20/23 08:17 BP 136/75 06/20/23 08:17 Pulse Ox 94 L 06/20/23 08:17 FiO2 21 06/18/23 14:53 Intake & Output 06/19/23 06/20/23 06/20/23 18:59 06:59 18:59 Intake Total 500 Output Total 1100 1430 1025 Balance -1100 -930 -1025 Weight 79.379 kg Intake: Oral 500 Output: Drainage 350 30 425 Left Abdomen 350 30 425 Urine 750 1400 600 Other: Voiding Method Diaper Incontinent - Labs CBC & Chem 7: 06/20/23 06:30 06/20/23 06:30 Labs: Abnormal Lab Results - Last 24 Hours (Table) 06/20/23 06/20/23 Range/Units 06:30 06:30 RBC 3.25 L (3.80-5.40) m/uL Hgb 11.2 L (11.4-16.0) gm/dL MCV 107.7 H (80.0-100.0) fL Plt Count 110 L (150-450) k/uL Macrocytosis Marked A Sodium 135 L (137-145) mmol/L Chloride 109 H (98-107) mmol/L BUN 32 H (7-17) mg/dL Calcium 8.0 L (8.4-10.2) mg/dL Microbiology - Last 24 Hours (Table) 06/15/23 01:52 Blood Culture - Final Blood
[2023-06-20] MEDS: FUROSEMIDE 10 MG/ML 4 ML VIAL IV SCH (13:28)
--- NOTE | 2023-06-20 13:36 | P.PN ---
Subjective Progress Note Date: 06/20/23 CHIEF COMPLAINT: Pneumoperitoneum HISTORY OF PRESENT ILLNESS: Patient is postop day #5 status post diagnostic laparoscopy for contained perforation at the greater curvature of the stomach. Patient is tolerating the clear liquids. She is having flatus. Denies any nausea or vomiting. Her pain is controlled. Medicine service has started patient on IV Lasix for fluid overload. She reports some discomfort in the left lower quadrant of the abdomen. KAMERON drain with a lot of output. KAMERON drain output 300 mL through the night and 140 mL output this morning. Fluid is more serous in color. Afebrile. WBC 6.2 Hgb 11.2 platelets 110 sodium is 135 potassium 4.1 creatinine 0.93 PHYSICAL EXAM: VITAL SIGNS: Reviewed. GENERAL: Well-developed in no acute distress. ABDOMEN: Soft. Nondistended. There is a stripe of ecchymosis along the right flank. Mild tenderness LLQ. Incision sites clean dry and intact. Leaking around KAMERON drain site NEUROLOGIC: Alert and oriented. Cranial nerves II through XII grossly intact. ASSESSMENT: 1. Gastric perforation 2. Possible pancreatic head mass or pseudocyst on ultrasound PLAN: -Advance diet to full liquids -Continue diuretics -Continue current pain management -Encourage patient ambulate. PT OT on consult -Continue antibiotics -Encourage patient to use incentive spirometer -Continue IV pepcid. Allergy to omeprazole -Would consider short-term follow-up CT pancreas or MRI pancreas after the patient is fully recovered from this event. Likewise patient should have upper endoscopy performed in the next 2 to 3 months to confirm healing of the suspecte d ulcer and to rule out neoplastic changes in the stomach. Physician Grain Broker note has been reviewed by physician. Signing provider agrees with the documented findings, assessment, and plan of care. Objective - Vital Signs Vital signs: Vital Signs Temp 97.2 F L 06/20/23 08:17 Pulse 67 06/20/23 08:17 Resp 18 06/20/23 08:17 BP 136/75 06/20/23 08:17 Pulse Ox 94 L 06/20/23 08:17 FiO2 21 06/18/23 14:53 Intake & Output 06/19/23 06/20/23 06/20/23 18:59 06:59 18:59 Intake Total 500 Output Total 1100 1430 1025 Balance -1100 -930 -1025 Weight 79.379 kg Intake: Oral 500 Output: Drainage 350 30 425 Left Abdomen 350 30 425 Urine 750 1400 600 Other: Voiding Method Diaper Incontinent - Labs CBC & Chem 7: 06/20/23 06:30 06/20/23 06:30 Labs: Abnormal Lab Results - Last 24 Hours (Table) 06/20/23 06/20/23 Range/Units 06:30 06:30 RBC 3.25 L (3.80-5.40) m/uL Hgb 11.2 L (11.4-16.0) gm/dL MCV 107.7 H (80.0-100.0) fL Plt Count 110 L (150-450) k/uL Macrocytosis Marked A Sodium 135 L (137-145) mmol/L Chloride 109 H (98-107) mmol/L BUN 32 H (7-17) mg/dL Calcium 8.0 L (8.4-10.2) mg/dL Microbiology - Last 24 Hours (Table) 06/15/23 01:52 Blood Culture - Final Blood
[2023-06-21 07:40] LABS: African American GFR (CKD) 64 (>60 ml/min/1.73 sqM); Anion Gap 2 mmol/L; Blood Urea Nitrogen 26 mg/dL (7-17); Calcium 7.9 mg/dL (8.4-10.2); Carbon Dioxide 26 mmol/L (22-30); Chloride 109 mmol/L (98-107); Glucose 80 mg/dL (74-99); Non-African American GFR(CKD) 56 (>60 ml/min/1.73 sqM); Potassium 3.8 mmol/L (3.5-5.1); Sodium 137 mmol/L (137-145)
--- NOTE | 2023-06-21 12:21 | P.PN ---
Subjective Progress Note Date: 06/21/23 78-year-old female with history of atrial fibrillation on Eliquis, diastolic CHF, hypertension, recent hospitalization for pneumonia, was also found to have cholecystitis, presenting with abdominal pain. Abdominal ultrasound shows subcentimeter hypoechoic area within the pancreas head concerning for pseudocyst formation versus neoplasm, thickened gallbladder wall, concerning for cholecystitis. CBD within normal limits. WBC 7.4, hemoglobin 164, creatinine 1.25, around baseline, total bilirubin 2.6, AST 101, ALT 57, ALP 144, lipase 948. Patient admitted for gallstone pancreatitis, started on IV fluids, pain control. Surgery also consulted. Underwent diagnostic laparoscopy, found to have suspected perforation at the greater curvature of the stomach, drain was placed. 06/17 Patient was seen and examined. Reports a wet cough. Worsening abdominal pain when coughing. No nausea or vomiting. Surgery recommends NPO and monitor. CBC Hg 9.4 Hct 28.8 MCV 107.1 Plt 119. 06/18 Patient was seen and examined. Reports a continued cough. Unable to take a full deep breath. Able to tolerate a Popsicle today. CBC Hg 10.3 Hct 32.6 MCV 109.3. BMP Na 136, Cl 110, BUN 51, Cr 1.3, Ca 8.1. 06/19 Patient was seen and examined. Started on CLD. Complains of increased pain in her abdomen. Increased drainage from the KAMERON drain (130 cc over the past 24H). CXR mild interstitial edema. Given 1 dose of Lasix 40 mg IV. 06/20 Patient was seen and examined. Started on FLD. Patient reports muscular weakness would like to participate with PT more. Continue serousanguinous drainage from the KMAERON drain (410 cc over the past 24H). Plans to start Lasix 40 mg IV QD. CBC Hg 11.2 MCV 107.7 Plt 110. BMP Na 135, Cl 109, BUN 32, Ca 8. 2 Patient was seen and examined. Improved lower extremity swelling and no more cough. Tolerating FLD well. Continue serousanguinous drainage from the KAMERON drain (380 cc over the past 24H). Uoutput 2.53L over the past 24H maintained on Lasix 40 mg IV QD. BMP Cl 109, BUN 26, Ca 7.9. General: Nontoxic, no distress, appears at stated age Derm: Warm, dry Head: Atraumatic, normocephalic, symmetric Eyes: EOMI, no lid lag, anicteric sclera Mouth: No lip lesion, mucus membranes moist Cardiovascular: S1S2 reg, no murmur Lungs: Decreased BS bilateral, no rhonchi, no rales, no accessory muscle use Abdominal: Soft, tender to palpation in all quadrants, more prominent in epigastric region, no guarding, no appreciable organomegaly, KAMERON drain with serousanguinous drainage. Ext: No gross muscle atrophy, no edema, no contractures Neuro: no focal neuro deficits Psych: Alert, oriented, appropriate affect Based on my assessment of this patient, this patient meets a moderate complexity level of care. Patient has a new diagnosis of perforated gastric ulcer with uncertain prognosis. Interstitial edema: Lasix 40 mg IV QD. Strict intake and outtake. Daily weights. Encouraged incentive spirometer. DuoNeb Q4H PRN for SOB/wheezing. Perforated stomach status post laparoscopy, KAMERON drain placement: Surgery on board, FLD and advance, pain management, IV Abx, IV pepcid. Rocephin 1g IV QD, Flagyl 500 mg IV TID. Repeat EGD in 2-3 months. Pneumoperitoneum Acute pancreatitis Suspected pancreatic pseudocyst versus neoplasm: Repeat imaging in the future. Acute blood loss anemia: Transfuse if Hg < 7. Atrial fibrillation History of diastolic CHF Hypertension CODE STATUS: FULL CODE DVT Prophylaxis: SCD GI Prophylaxis: Pepcid IV Designated medical POA if patient is not able to make medical decisions for themselves: I have reviewed the following clinical services consultant notes: Surgery note. I have reviewed the results of the following tests: BMP. I have ordered the following tests: BMP. I have discussed the care of this patient with the following independent historian: I have independently interpreted the following test below: I have discussed the management of this patient with the following physician: Objective - Vital Signs Vital signs: Vital Signs Temp 98.4 F 06/21/23 07:14 Pulse 78 06/21/23 07:14 Resp 20 06/21/23 10:30 BP 134/71 06/21/23 07:14 Pulse Ox 96 06/21/23 07:14 FiO2 21 06/18/23 14:53 Intake & Output 06/20/23 06/21/23 06/21/23 18:59 06:59 18:59 Intake Total 0 Output Total 1235 670 100 Balance -1235 -670 -100 Weight 88 kg Intake: Oral 0 Output: Drainage 635 170 100 Left Abdomen 635 170 100 Urine 600 500 Other: Voiding Method External Catheter External Catheter # Voids 1 - Labs CBC & Chem 7: 06/20/23 06:30 06/21/23 06:18 Labs: Abnormal Lab Results - Last 24 Hours (Table) 06/21/23 Range/Units 06:18 Chloride 109 H (98-107) mmol/L BUN 26 H (7-17) mg/dL Calcium 7.9 L (8.4-10.2) mg/dL Microbiology - Last 24 Hours (Table) 06/15/23 01:52 Blood Culture - Final Blood
--- NOTE | 2023-06-21 14:57 | P.PN ---
Subjective Progress Note Date: 06/21/23 CHIEF COMPLAINT: Pneumoperitoneum HISTORY OF PRESENT ILLNESS: Patient is postop day #6 status post diagnostic laparoscopy for contained perforation at the greater curvature of the stomach. Patient is currently receiving full liquid diet. She did have some right-sided abdominal pain last night after eating. This has improved. She is having flatus. No bowel movement. She has been up to ambulate. KAMERON drain noted serous in color with 170 mL output. Patient is on Lasix for fluid overload. PHYSICAL EXAM: VITAL SIGNS: Reviewed. GENERAL: Well-developed in no acute distress. ABDOMEN: Soft. Nondistended. nontender.There is a stripe of ecchymosis along the right flank. Incision sites clean dry and intact. Leaking around KAMERON drain site is less. KAMERON drain with serous fluid NEUROLOGIC: Alert and oriented. Cranial nerves II through XII grossly intact. ASSESSMENT: 1. Gastric perforation 2. Possible pancreatic head mass or pseudocyst on ultrasound PLAN: -continue full liquids -Continue diuretics -Continue current pain management -Encourage patient ambulate. PT OT on consult -Continue antibiotics -Encourage patient to use incentive spirometer -Continue IV pepcid. Allergy to omeprazole -Continue to monitor KAMERON drain output -Would consider short-term follow-up CT pancreas or MRI pancreas after the patient is fully recovered from this event. Likewise patient should have upper endoscopy performed in the next 2 to 3 months to confirm healing of the suspected ulcer and to rule out neoplastic changes in the stomach. Physician Greige Goods Inspector note has been reviewed by physician. Signing provider agrees with the documented findings, assessment, and plan of care. I have personally seen and examined the patient, reviewed the PHILOSOPHY LECTURER /PAs history, exam and MDM and agree with the assessment and plan as written. Based on total visit time, I have performed more than 50% of the visit. As above: Patient doing better today. Pain is less. Continue antibiotics. Continue antiacid therapy. Keep drain in place. Continue diuretics. Will advance diet. Objective - Vital Signs Vital signs: Vital Signs Temp 98.4 F 06/21/23 13:05 Pulse 80 06/21/23 13:05 Resp 21 06/21/23 13:05 BP 115/61 06/21/23 13:05 Pulse Ox 97 06/21/23 13:05 FiO2 21 06/18/23 14:53 Intake & Output 06/20/23 06/21/23 06/21/23 18:59 06:59 18:59 Intake Total 0 Output Total 1235 670 100 Balance -1235 -670 -100 Weight 88 kg 88 kg Intake: Oral 0 Output: Drainage 635 170 100 Left Abdomen 635 170 100 Urine 600 500 Other: Voiding Method External Catheter External Catheter # Voids 1 - Labs CBC & Chem 7: 06/20/23 06:30 06/21/23 06:18 Labs: Abnormal Lab Results - Last 24 Hours (Table) 06/21/23 Range/Units 06:18 Chloride 109 H (98-107) mmol/L BUN 26 H (7-17) mg/dL Calcium 7.9 L (8.4-10.2) mg/dL Microbiology - Last 24 Hours (Table) 06/15/23 01:52 Blood Culture - Final Blood
[2023-06-22 08:00] LABS: African American GFR (CKD) 66 (>60 ml/min/1.73 sqM); Anion Gap -1 mmol/L; Blood Urea Nitrogen 23 mg/dL (7-17); Calcium 8.1 mg/dL (8.4-10.2); Carbon Dioxide 26 mmol/L (22-30); Chloride 110 mmol/L (98-107); Glucose 85 mg/dL (74-99); Non-African American GFR(CKD) 58 (>60 ml/min/1.73 sqM); Potassium 3.9 mmol/L (3.5-5.1); Sodium 135 mmol/L (137-145)
--- NOTE | 2023-06-22 12:32 | P.PN ---
Subjective Progress Note Date: 06/22/23 78-year-old female with history of atrial fibrillation on Eliquis, diastolic CHF, hypertension, recent hospitalization for pneumonia, was also found to have cholecystitis, presenting with abdominal pain. Abdominal ultrasound shows subcentimeter hypoechoic area within the pancreas head concerning for pseudocyst formation versus neoplasm, thickened gallbladder wall, concerning for cholecystitis. CBD within normal limits. WBC 7.4, hemoglobin 164, creatinine 1.25, around baseline, total bilirubin 2.6, AST 101, ALT 57, ALP 144, lipase 948. Patient admitted for gallstone pancreatitis, started on IV fluids, pain control. Surgery also consulted. Underwent diagnostic laparoscopy, found to have suspected perforation at the greater curvature of the stomach, drain was placed. 06/17 Patient was seen and examined. Reports a wet cough. Worsening abdominal pain when coughing. No nausea or vomiting. Surgery recommends NPO and monitor. CBC Hg 9.4 Hct 28.8 MCV 107.1 Plt 119. 06/18 Patient was seen and examined. Reports a continued cough. Unable to take a full deep breath. Able to tolerate a Popsicle today. CBC Hg 10.3 Hct 32.6 MCV 109.3. BMP Na 136, Cl 110, BUN 51, Cr 1.3, Ca 8.1. 06/19 Patient was seen and examined. Started on CLD. Complains of increased pain in her abdomen. Increased drainage from the KAMERON drain (130 cc over the past 24H). CXR mild interstitial edema. Given 1 dose of Lasix 40 mg IV. 06/20 Patient was seen and examined. Started on FLD. Patient reports muscular weakness would like to participate with PT more. Continue serousanguinous drainage from the KAMERON drain (410 cc over the past 24H). Plans to start Lasix 40 mg IV QD. CBC Hg 11.2 MCV 107.7 Plt 110. BMP Na 135, Cl 109, BUN 32, Ca 8. 2 Patient was seen and examined. Improved lower extremity swelling and no more cough. Tolerating FLD well. Continue serousanguinous drainage from the KAMERON drain (380 cc over the past 24H). Uoutput 2.53L over the past 24H maintained on Lasix 40 mg IV QD. BMP Cl 109, BUN 26, Ca 7.9. 06/22 Patient was seen and examined. Upgraded to NDD3 diet. Continue serousanguinous drainage from the KAMERON drain (805 cc over the past 24H). Uoutput 1.905L over the past 24H maintained on Lasix 40 mg IV QD. BMP Na 135, Cl 110, BUN 23, Ca 8.1. General: Nontoxic, no distress, appears at stated age Derm: Warm, dry Head: Atraumatic, normocephalic, symmetric Eyes: EOMI, no lid lag, anicteric sclera Mouth: No lip lesion, mucus membranes moist Cardiovascular: S1S2 reg, no murmur Lungs: Decreased BS bilateral, no rhonchi, no rales, no accessory muscle use Abdominal: Soft, tender to palpation in all quadrants, more prominent in epigastric region, no guarding, no appreciable organomegaly, KAMERON drain with serousanguinous drainage. Ext: No gross muscle atrophy, no edema, no contractures Neuro: no focal neuro deficits Psych: Alert, oriented, appropriate affect Based on my assessment of this patient, this patient meets a moderate complexity level of care. Patient has a new diagnosis of perforated gastric ulcer with uncertain prognosis. Interstitial edema and lower extremity swelling: Lasix 40 mg IV QD. Strict intake and outtake. Daily weights. Encouraged incentive spirometer. DuoNeb Q4H PRN for SOB/wheezing. Perforated stomach status post laparoscopy, KAMERON drain placement: Surgery on board, FLD and advance, pain management, IV Abx, IV pepcid. Rocephin 1g IV QD, Flagyl 500 mg IV TID. Repeat EGD in 2-3 months. Pneumoperitoneum Acute pancreatitis Suspected pancreatic pseudocyst versus neoplasm: Repeat imaging in the future. Acute blood loss anemia: Transfuse if Hg < 7. Atrial fibrillation History of diastolic CHF Hypertension CODE STATUS: FULL CODE DVT Prophylaxis: SCD GI Prophylaxis: Pepcid IV Designated medical POA if patient is not able to make medical decisions for themselves: I have reviewed the following workforce consultant notes: Surgery note. I have reviewed the results of the following tests: BMP. I have ordered the following tests: BMP. I have discussed the care of this patient with the following independent historian: I have independently interpreted the following test below: I have discussed the management of this patient with the following physician: Objective - Vital Signs Vital signs: Vital Signs Temp 98.1 F 06/22/23 07:12 Pulse 67 06/22/23 07:12 Resp 17 06/22/23 07:12 BP 136/69 06/22/23 07:12 Pulse Ox 95 06/22/23 07:12 FiO2 21 06/18/23 14:53 Intake & Output 06/21/23 06/22/23 06/22/23 18:59 06:59 18:59 Intake Total 350 Output Total 450 380 Balance -100 -380 Weight 88 kg 83.6 kg Intake: Oral 350 Output: Drainage 450 130 Left Abdomen 450 130 Urine 250 Other: Voiding Method External Catheter External Catheter - Labs CBC & Chem 7: 06/20/23 06:30 06/22/23 06:15 Labs: Abnormal Lab Results - Last 24 Hours (Table) 06/22/23 Range/Units 06:15 Sodium 135 L (137-145) mmol/L Chloride 110 H (98-107) mmol/L BUN 23 H (7-17) mg/dL Calcium 8.1 L (8.4-10.2) mg/dL
--- NOTE | 2023-06-22 15:58 | P.PN ---
Subjective Progress Note Date: 06/22/23 NAEON. No N/V. No F/C. NO SOB or CP. Ambulatory and voiding. Admits to flatus, no BM. Tolerating diet. Objective - Vital Signs Vital signs: Vital Signs Temp 98.1 F 06/22/23 13:36 Pulse 76 06/22/23 13:36 Resp 16 06/22/23 13:36 BP 126/81 06/22/23 13:36 Pulse Ox 100 06/22/23 13:36 FiO2 21 06/18/23 14:53 Intake & Output 06/21/23 06/22/23 06/22/23 18:59 06:59 18:59 Intake Total 350 Output Total 450 380 Balance -100 -380 Weight 88 kg 83.6 kg Intake: Oral 350 Output: Drainage 450 130 Left Abdomen 450 130 Urine 250 Other: Voiding Method External Catheter External Catheter External Catheter - Exam Gen: AxO, NAD Pulm: non-labored respirations Abd: soft, non-tender, non-distended. No guarding/rebound/rigidity Kameron: intact producing serous output Extrem: no edema seen - Labs CBC & Chem 7: 06/20/23 06:30 06/22/23 06:15 Labs: Abnormal Lab Results - Last 24 Hours (Table) 06/22/23 Range/Units 06:15 Sodium 135 L (137-145) mmol/L Chloride 110 H (98-107) mmol/L BUN 23 H (7-17) mg/dL Calcium 8.1 L (8.4-10.2) mg/dL Assessment and Plan Assessment: Patient is a 78 year old female who is s/p diagnostic laparoscopy with washout and drain placement for contained gastric perforation. Plan: -Diet as tolerated -IVF hydration -Strict I/O for KAMERON drain -Lasix therapy -Encourage ambulation -DVT/GI PPx Mohamud Bird MD General Surgery
[2023-06-23 08:19] LABS: African American GFR (CKD) 62 (>60 ml/min/1.73 sqM); Anion Gap 1 mmol/L; Blood Urea Nitrogen 26 mg/dL (7-17); Calcium 8.1 mg/dL (8.4-10.2); Carbon Dioxide 25 mmol/L (22-30); Chloride 109 mmol/L (98-107); Glucose 74 mg/dL (74-99); Non-African American GFR(CKD) 54 (>60 ml/min/1.73 sqM); Potassium 4.1 mmol/L (3.5-5.1); Sodium 135 mmol/L (137-145)
[2023-06-23 08:45] LABS: HCT 29.5 % (34.0-46.0); HGB 9.5 gm/dL (11.4-16.0); Hypochromasia Slight; MCH 34.7 pg (25.0-35.0); MCHC 32.2 g/dL (31.0-37.0); MCV 107.7 fL (80.0-100.0); Macrocytosis Marked; Mean Platelet Volume 8.7; RBC 2.73 m/uL (3.80-5.40); RDW 15.4 % (11.5-15.5); WBC 6.1 k/uL (3.8-10.6)
[2023-06-23] MEDS: AMOXIC-POT CLAV 875-125MG 1 EACH TAB PO SCH (08:56)
[2023-06-23] MEDS: ENOXAPARIN 40 MG/0.4 ML SYRINGE SQ SCH (08:56)
[2023-06-23 09:26] LABS: Anisocytosis (M) Present; Hypochromasia (M) Present; Platelet Count 90 k/uL (150-450); Target Cells Present
--- NOTE | 2023-06-23 11:17 | P.PN ---
Subjective Progress Note Date: 06/23/23 78-year-old female with history of atrial fibrillation on Eliquis, diastolic CHF, hypertension, recent hospitalization for pneumonia, was also found to have cholecystitis, presenting with abdominal pain. Abdominal ultrasound shows subcentimeter hypoechoic area within the pancreas head concerning for pseudocyst formation versus neoplasm, thickened gallbladder wall, concerning for cholecystitis. CBD within normal limits. WBC 7.4, hemoglobin 164, creatinine 1.25, total bilirubin 2.6, AST 101, ALT 57, ALP 144, lipase 948. Patient admitted for gallstone pancreatitis, started on IV fluids, pain control. Surgery also consulted. Underwent diagnostic laparoscopy on 06/15, found to have suspected perforation at the greater curvature of the stomach, drain was placed. Post operatively, he developed significant lower extremity edema and cough. CXR showed interstitial edema. She was diuresed with Lasix 40 mg IV QD. Her diet was advanced slowly which she was able to tolerate. She had a bowel movement on 06/22. 06/23 Patient was seen and examined. Upgraded to NDD3 diet. Continue serousanguinous drainage from the KAMERON drain (580 cc over the past 24H). Uoutput 830 cc over the past 24H maintained on Lasix 40 mg IV QD. She has completed 7 days of Rocephin and Flagyl. CBC Hg 9.5 Hct 29.5 MCV 107.7 Plt 90. BMP Na 135, Cl 109, BUN 26, Ca 8.1. General: Nontoxic, no distress, appears at stated age Derm: Warm, dry Head: Atraumatic, normocephalic, symmetric Eyes: EOMI, no lid lag, anicteric sclera Mouth: No lip lesion, mucus membranes moist Cardiovascular: S1S2 reg, no murmur Lungs: Decreased BS bilateral, no rhonchi, no rales, no accessory muscle use Abdominal: Soft, tender to palpation in all quadrants, more prominent in epigastric region, no guarding, no appreciable organomegaly, KAMERON drain with ser ousanguinous drainage. Ext: No gross muscle atrophy, no edema, no contractures Neuro: no focal neuro deficits Psych: Alert, oriented, appropriate affect Based on my assessment of this patient, this patient meets a moderate complexity level of care. Patient has a new diagnosis of perforated gastric ulcer with uncertain prognosis. Macrocytic anemia: Almost 2 point drop in Hg from 06/20. No signs of active bleeding. Obtain Iron studies, B12/Folate. Transfuse if Hg < 7. Interstitial edema and lower extremity swelling: Lasix 40 mg IV QD. Strict intake and outtake. Daily weights. Encouraged incentive spirometer. DuoNeb Q4H PRN for SOB/wheezing. Perforated stomach status post laparoscopy, KAMERON drain placement: Surgery on board, NDD3 and advance, pain management, IV Abx, IV pepcid. Completed 1 week of Rocephin 1g IV QD, Flagyl 500 mg IV TID, started on Augmentin 1 tab PO BID on 06/23. Repeat EGD in 2-3 months. Pneumoperitoneum Acute pancreatitis Suspected pancreatic pseudocyst versus neoplasm: Dedicated CT or MRI pancreas in the future. Acute blood loss anemia: Transfuse if Hg < 7. Atrial fibrillation: Will discuss with surgery if OK to resume Eliquis. History of diastolic CHF Hypertension CODE STATUS: FULL CODE DVT Prophylaxis: Lovenox SQ GI Prophylaxis: Pepcid IV Designated medical POA if patient is not able to make medical decisions for themselves: I have reviewed the following virtualization consultant notes: Surgery note. I have reviewed the results of the following tests: CBC. BMP. I have ordered the following tests: Iron studies, B12, Folate. CBC and BMP. I have discussed the care of this patient with the following independent historian: I have independently interpreted the following test below: I have discussed the management of this patient with the following physician: Objective - Vital Signs Vital signs: Vital Signs Temp 97.9 F 06/23/23 07:07 Pulse 76 06/23/23 07:07 Resp 18 06/23/23 07:07 BP 118/63 06/23/23 07:07 Pulse Ox 96 06/23/23 07:07 FiO2 21 06/18/23 14:53 Intake & Output 06/22/23 06/23/23 06/23/23 18:59 06:59 18:59 Output Total 230 570 Balance -230 -570 Weight 85 kg Output: Drainage 170 Left Abdomen 170 Urine 230 400 Other: Voiding Method External Catheter External Catheter # Voids 1 # Bowel Movements 1 - Labs CBC & Chem 7: 06/23/23 06:35 06/23/23 06:35
--- NOTE | 2023-06-23 12:31 | P.PN ---
Subjective Progress Note Date: 06/23/23 Principal diagnosis: Abdominal pain Patient feels better over the last day or 2. Still having some mild upper abdominal and right upper quadrant pain. KAMERON drain remains serous and output still excessive. Patient still with significant lower extremity edema as well. She is eating more however. She is tolerating regular foods. Objective - Vital Signs Vital signs: Vital Signs Temp 97.9 F 06/23/23 07:07 Pulse 76 06/23/23 07:07 Resp 18 06/23/23 07:07 BP 118/63 06/23/23 07:07 Pulse Ox 95 06/23/23 08:22 FiO2 21 06/18/23 14:53 Intake & Output 06/22/23 06/23/23 06/23/23 18:59 06:59 18:59 Output Total 230 570 20 Balance -230 -570 -20 Weight 85 kg Output: Drainage 170 20 Left Abdomen 170 20 Urine 230 400 Other: Voiding Method External Catheter External Catheter External Catheter # Voids 1 # Bowel Movements 1 - Exam Abdomen: Soft, nontender, nondistended, incisions clean and dry, KAMERON intact - Labs CBC & Chem 7: 06/23/23 06:35 06/23/23 06:35 Labs: Abnormal Lab Results - Last 24 Hours (Table) 06/23/23 06/23/23 Range/Units 06:35 06:35 RBC 2.73 L (3.80-5.40) m/uL Hgb 9.5 L D (11.4-16.0) gm/dL Hct 29.5 L (34.0-46.0) % MCV 107.7 H (80.0-100.0) fL Plt Count 90 L (150-450) k/uL Macrocytosis Marked A Sodium 135 L (137-145) mmol/L Chloride 109 H (98-107) mmol/L BUN 26 H (7-17) mg/dL Calcium 8.1 L (8.4-10.2) mg/dL Assessment and Plan (1) Gastric perforation Narrative/Plan: 78-year-old female slowly improving. Continue diet as tolerated. Continue antiacids. Keep drain in place. Continue diuretics will possibly increase to twice daily dosing. Today's labs show decreased hemoglobin. No signs of bleeding. Repeat CBC tomorrow. Current Visit: Yes Status: Acute Code(s): K25.5 - CHRONIC OR UNSPECIFIED GASTRIC ULCER WITH PERFORATION SNOMED Code(s): 553125898
[2023-06-23] MEDS: FUROSEMIDE 10 MG/ML 4 ML VIAL IV SCH (20:41)
[2023-06-23 23:26] LABS: % Iron Saturation 86.09 (12.00-45.00)
[2023-06-24 06:47] LABS: Chloride 108 mmol/L (98-107)
[2023-06-24 06:48] LABS: African American GFR (CKD) 55 (>60 ml/min/1.73 sqM); Anion Gap 0 mmol/L; Blood Urea Nitrogen 29 mg/dL (7-17); Calcium 7.8 mg/dL (8.4-10.2); Carbon Dioxide 26 mmol/L (22-30); Glucose 82 mg/dL (74-99); Non-African American GFR(CKD) 48 (>60 ml/min/1.73 sqM); Potassium 4.1 mmol/L (3.5-5.1); Sodium 134 mmol/L (137-145)
[2023-06-24 08:47] LABS: Basophils # (A) 0.04 X 10*3/uL (0.00-0.10); Basophils % (A) 0.6 %; Eosinophils # (A) 0.43 X 10*3/uL (0.04-0.35); HCT 25.9 % (37.2-46.3); HGB 8.6 g/dL (12.0-15.0); Lymphocytes # (A) 1.93 X 10*3/uL (0.90-5.00); Lymphocytes % (A) 31.3 %; MCH 33.6 pg (27.0-32.0); MCHC 33.2 g/dL (32.0-37.0); MCV 101.2 FL (80.0-97.0); Mean Platelet Volume 10.7 FL (9.5-12.2); Monocytes % (A) 14.6 %; NRBC Per 100 WBC 0 X 10*3/uL (0.00-0.01); Neutrophils # (A) 2.82 X 10*3/uL (1.80-7.70); Neutrophils % (A) 45.7 %; Platelet Count 95 X 10*3/uL (140-440); RBC 2.56 X 10*6/uL (4.10-5.20); RDW 17.1 % (11.5-14.5); WBC 6.17 X 10*3/uL (4.50-10.00)
--- NOTE | 2023-06-24 09:14 | P.PN ---
Subjective Progress Note Date: 06/24/23 78-year-old female with history of atrial fibrillation on Eliquis, diastolic CHF, hypertension, recent hospitalization for pneumonia, was also found to have cholecystitis, presenting with abdominal pain. Abdominal ultrasound shows subcentimeter hypoechoic area within the pancreas head concerning for pseudocyst formation versus neoplasm, thickened gallbladder wall, concerning for cholecystitis. CBD within normal limits. WBC 7.4, hemoglobin 164, creatinine 1.25, total bilirubin 2.6, AST 101, ALT 57, ALP 144, lipase 948. Patient admitted for gallstone pancreatitis, started on IV fluids, pain control. Surgery also consulted. Underwent diagnostic laparoscopy on 06/15, found to have suspected perforation at the greater curvature of the stomach, drain was placed. Post operatively, he developed significant lower extremity edema and cough. CXR showed interstitial edema. She was diuresed with Lasix IV. Her diet was advanced slowly which she was able to tolerate. She had a bowel movement on 06/22. 06/24 Patient was seen and examined. Tolerating NDD3 diet. Continue serousanguinous drainage from the KAMERON drain (170 cc over the past 24H). Uoutput 800 cc over the past 24H maintained on Lasix 40 mg IV BID. She has completed 7 days of Rocephin and Flagyl, currently on Augmentin 875-125mg PO BID since 06/23. CBC Hg 8.6 Hct 25.9 MCV 101.2 Plt 95. BMP Na 134, Cl 108, BUN 29, Cr 1.10, Ca 7.8. Iron studies show Fe 99, Ferritin 1071. Vit B12 3070. Folate 24.6. General: Nontoxic, no distress, appears at stated age Derm: Warm, dry Head: Atraumatic, normocephalic, symmetric Eyes: EOMI, no lid lag, anicteric sclera Mouth: No lip lesion, mucus membranes moist Cardiovascular: S1S2 reg, no murmur Lungs: Decreased BS bilateral, no rhonchi, no rales, no accessory muscle use Abdominal: Soft, tender to palpation in all quadrants, more prominent in epigastric region, no guarding, no appreciable organomegaly, KAMERON drain with serousanguinous drainage. Ext: No gross muscle atrophy, 2+ pitting lower extremity edema, no contractures Neuro: no focal neuro deficits Psych: Alert, oriented, appropriate affect Based on my assessment of this patient, this patient meets a moderate complexity level of care. Patient has a new diagnosis of perforated gastric ulcer with uncertain prognosis. Acute blood loss anemia: Macrocytic. Almost 2 point drop in Hg from 06/20. B12 and Folate OK. No signs of active bleeding. Iron studies shows AOCD. Repeat CBC tomorrow morning. Transfuse if Hg < 7. Interstitial edema and lower extremity swelling: Lasix 40 mg IV BID. Strict intake and outtake. Daily weights. Encouraged incentive spirometer. DuoNeb Q4H PRN for SOB/wheezing. Acute kidney injury: Likely from forced diuresis. Monitor renal function daily while patient is on Lasix. Perforated stomach status post laparoscopy, KAMERON drain placement: Surgery on board, NDD3 and advance, pain management, IV Abx, IV pepcid. Completed 1 week of Rocephin 1g IV QD, Flagyl 500 mg IV TID, started on Augmentin 1 tab PO BID on 06/23. Repeat EGD in 2-3 months. Pneumoperitoneum Acute pancreatitis Suspected pancreatic pseudocyst versus neoplasm: Dedicated CT or MRI pancreas in the future. Atrial fibrillation: Will discuss with surgery if OK to resume Eliquis. History of diastolic CHF Hypertension CODE STATUS: FULL CODE DVT Prophylaxis: Lovenox SQ GI Prophylaxis: Pepcid IV Designated medical POA if patient is not able to make medical decisions for themselves: I have reviewed the following software security consultant notes: Surgery note. I have reviewed the results of the following tests: CBC. BMP. Iron studies. B12. Folate. I have ordered the following tests: CBC and BMP. I have discussed the care of this patient with the following independent historian: I have independently interpreted the following test below: I have discussed the management of this patient with the following physician: Objective - Vital Signs Vital signs: Vital Signs Temp 98.3 F 06/24/23 00:41 Pulse 81 06/24/23 00:41 Resp 15 06/24/23 00:41 BP 133/78 06/24/23 00:41 Pulse Ox 99 06/24/23 00:41 FiO2 21 06/18/23 14:53 Intake & Output 06/23/23 06/24/23 06/24/23 18:59 06:59 18:59 Intake Total 350 Output Total 760 1060 Balance -410 -1060 Weight 84 kg Intake: Oral 350 Output: Drainage 110 60 Left Abdomen 110 60 Urine 650 1000 Other: Voiding Method External Catheter External Catheter # Bowel Movements 1 - Labs CBC & Chem 7: 06/24/23 05:59 06/24/23 05:59 Labs: Abnormal Lab Results - Last 24 Hours (Table) 06/23/23 06/23/23 06/23/23 Range/Units 06:35 06:35 06:35 RBC 2.73 L (3.80-5.40) m/uL Hgb 9.5 L D (11.4-16.0) gm/dL Hct 29.5 L (34.0-46.0) % MCV 107.7 H (80.0-100.0) fL Plt Count 90 L (150-450) k/uL Macrocytosis Marked A Sodium 135 L (137-145) mmol/L Chloride 109 H (98-107) mmol/L BUN 26 H (7-17) mg/dL Creatinine (0.52-1.04) mg/dL Calcium 8.1 L (8.4-10.2) mg/dL TIBC 115 L (228-460) UG/DL % Saturation 86.09 H (12.00-45.00) Transferrin 82.0 L (204.0-354.0) mg/dL Ferritin 1071.0 H (10.0-291.0) ng/mL Vitamin B12 3070.0 H (200.0-944.0) pg/mL 06/24/23 Range/Units 05:59 RBC (3.80-5.40) m/uL Hgb (11.4-16.0) gm/dL Hct (34.0-46.0) % MCV (80.0-100.0) fL Plt Count (150-450) k/uL Macrocytosis Sodium 134 L (137-145) mmol/L Chloride 108 H (98-107) mmol/L BUN 29 H (7-17) mg/dL Creatinine 1.10 H (0.52-1.04) mg/dL Calcium 7.8 L (8.4-10.2) mg/dL TIBC (228-460) UG/DL % Saturation (12.00-45.00) Transferrin (204.0-354.0) mg/dL Ferritin (10.0-291.0) ng/mL Vitamin B12 (200.0-944.0) pg/mL
--- NOTE | 2023-06-24 14:20 | P.PN ---
Subjective Progress Note Date: 06/24/23 CHIEF COMPLAINT: Pneumoperitoneum HISTORY OF PRESENT ILLNESS: Patient is postop day #9 status post diagnostic laparoscopy for contained perforation at the greater curvature of the stomach. Patient reports that her pain is controlled. She has minimal pain on the right side with movement. She is receiving Lasix for fluid overload. KAMERON drain output is decreasing. 60 mL serous output this morning. Still has lower extremity edema. Patient tolerating regular food. She is up in bedside chair. She re ports she is ambulated. Afebrile. WBC 6.17 Hgb is down from 9.5-8.6 platelets 95 sodium 134 potassium 4.1 creatinine 1.10 PHYSICAL EXAM: VITAL SIGNS: Reviewed. GENERAL: Well-developed in no acute distress. ABDOMEN: Soft. Nondistended. nontender.There is a stripe of ecchymosis along the right flank. Incision sites clean dry and intact. Leaking around KAMERON drain site is less. KAMERON drain with serous fluid NEUROLOGIC: Alert and oriented. Cranial nerves II through XII grossly intact. ASSESSMENT: 1. Gastric perforation 2. Possible pancreatic head mass or pseudocyst on ultrasound PLAN: -continue dysphagia chopped diet -Continue diuretics -Continue pain management -Encourage patient ambulate. PT OT on consult -Continue antibiotics -Encourage patient to use incentive spirometer -Continue IV pepcid. Allergy to omeprazole -Continue to monitor KAMERON drain output -Would consider short-term follow-up CT pancreas or MRI pancreas after the patient is fully recovered from this event. Likewise patient should have upper endoscopy performed in the next 2 to 3 months to confirm healing of the suspected ulcer and to rule out neoplastic changes in the stomach. Physician Mortician Supplies Sales Representative note has been reviewed by physician. Signing provider agrees with the documented findings, assessment, and plan of care. I have personally seen and examined the patient, reviewed the MICROBIOLOGICAL ANALYST /PAs history, exam and MDM and agree with the assessment and plan as written. Based on total visit time, I have performed more than 50% of the visit. As above: Patient having some right-sided upper quadrant abdominal pain. Hemoglobin dropped somewhat further. Still very edematous with significant serous drainage through the drainage tube and around it as well. Significant pitting edema bilateral lower extremities. Continue Lasix. Will order CT abdomen pelvis to better evaluate the patient's recent right upper quadrant pain. Continue diet. Objective - Vital Signs Vital signs: Vital Signs Temp 98.5 F 02/05/24 07:24 Pulse 81 06/24/23 07:46 Resp 15 06/24/23 07:46 BP 156/76 06/24/23 07:24 Pulse Ox 95 06/24/23 07:24 FiO2 21 06/18/23 14:53 Intake & Output 06/23/23 06/24/23 06/24/23 18:59 06:59 18:59 Intake Total 350 Output Total 760 1060 Balance -410 -1060 Weight 84 kg Intake: Oral 350 Output: Drainage 110 60 Left Abdomen 110 60 Urine 650 1000 Other: Voiding Method External Catheter External Catheter External Catheter # Voids 1 # Bowel Movements 1 1 - Labs CBC & Chem 7: 06/24/23 05:59 06/24/23 05:59 Labs: Abnormal Lab Results - Last 24 Hours (Table) 06/23/23 06/24/23 06/24/23 Range/Units 06:35 05:59 05:59 RBC 2.56 L (4.10-5.20) X 10*6/uL Hgb 8.6 L (12.0-15.0) g/dL Hct 25.9 L (37.2-46.3) % MCV 101.2 H (80.0-97.0) FL MCH 33.6 H (27.0-32.0) pg RDW 17.1 H (11.5-14.5) % Plt Count 95 L (140-440) X 10*3/uL Immature Gran # 0.05 H (0.00-0.04) X 10*3/uL Eosinophils # 0.43 H (0.04-0.35) X 10*3/uL Sodium 134 L (137-145) mmol/L Chloride 108 H (98-107) mmol/L BUN 29 H (7-17) mg/dL Creatinine 1.10 H (0.52-1.04) mg/dL Calcium 7.8 L (8.4-10.2) mg/dL TIBC 115 L (228-460) UG/DL % Saturation 86.09 H (12.00-45.00) Transferrin 82.0 L (204.0-354.0) mg/dL Ferritin 1071.0 H (10.0-291.0) ng/mL Vitamin B12 3070.0 H (200.0-944.0) pg/mL
[2023-06-24 16:32] VITALS: BMI 31.8
[2023-06-25] MEDS: IOPAMIDOL CONTRAST (ORAL USE) VIAL PO PRN (04:40)
--- NOTE | 2023-06-25 07:28 | CT ---
EXAMINATION TYPE: CT abdomen pelvis w con CT DLP: 973.9 mGycm, Automated exposure control for dose reduction was used. DATE OF EXAM: 06/25/2023 6:50 AM COMPARISON: CT abdomen pelvis most recent from 06/15/2023 CLINICAL INDICATION:Female, 78 years old with history of Abdominal pain; Abdominal pain TECHNIQUE: Axial CT abdomen pelvis w con;Sagittal and coronal reformats were created on a separate w orkstation. Contrast used:80 ml mL of Isovue 300 with IV Contrast, (none if empty) Oral contrast used: with Oral Contrast (none if empty) FINDINGS: LOWER CHEST: Heart is mildly enlarged for size. There is small bilateral pleural effusions. ABDOMEN LIVER: Nodular contour to liver. GALLBLADDER AND BILE DUCTS: Layering high density the gallbladder lumen could represent small gallsto duane. PANCREAS: Unremarkable. SPLEEN: Unremarkable. ADRENAL GLANDS: Unremarkable. KIDNEYS AND URETERS: Nonobstructing left renal calculus measuring 3 mm. No right renal calculi. No ob structive uropathy. PELVIS BLADDER: Unremarkable REPRODUCTIVE: Unremarkable. ABDOMEN & PELVIS STOMACH AND BOWEL: No evidence of bowel obstruction. Oral contrast extends to the rectum PERITONEUM/RETROPERITONEUM: No evidence of pneumoperitoneum on this exam. Drainage tubing transverses the abdomen with a left lateral approach VASCULATURE: No evidence of aortic aneurysm. MUSCULOSKELETAL: No acute osseous abnormalities. Moderate disc degeneration changes are present throu ghout the thoracolumbar spine. LYMPH NODES: No gross evidence for lymphadenopathy. SOFT TISSUE/ABDOMINAL WALL: Anasarca of the soft tissues with surgical clips along the anterior abdom inal wall a few foci of gas in the subcutaneous tissues likely secondary to recent intervention. IMPRESSION: 1. Drainage catheter in place. No organizing fluid collections. Decrease in pneumoperitoneum with no free air definitively visualized. Oral contrast extends to the rectum. No extravasation of oral cont rast identified. 2. Anasarca of the soft tissues with bilateral small pleural effusions possibly relating to third sp acing of fluid in the setting of cirrhosis and/or heart failure. 3. Mild cardiomegaly. 4. Hepatic cirrhosis. 5. Cholelithiasis.
--- NOTE | 2023-06-25 07:48 | P.PN ---
Subjective Progress Note Date: 06/25/23 Patient is an 78-year-old female with a history of hypertension, asthma, and diastolic congestive heart failure who presented to the emergency department with complaints of abdominal pain. In the emergency department she underwent a abdominal ultrasound which showed hypoechoic area within the pancreatic head and a thickened gallbladder with concerns for cholecystitis. Initial laboratory analysis also demonstrated an elevated AST at 101, ALT 57, and lipase of 948. Patient was subsequently admitted for pancreatitis. Patient continued to have significant amounts of abdominal discomfort and subsequently underwent CT of the abdomen and pelvis on 06/15 which showed a small amount of pneumoperitoneum in the upper epigastric region, cholelithiasis, bilateral pleural effusions, and a small amount of free fluid within the pelvis. General surgery had been consulted. On 06/15/2023 the patient underwent diagnostic laparoscopy for pneumoperitoneum where she was found to have a contained perforation of the greater curvature of the stomach with placement of a 19 [place] KAMERON drain next to the perforation. Postoperatively the patient developed significant lower extremity edema along with a cough. Chest x-ray at that time showed increased interstitial edema and she was found to have acute exacerbation of her congestive heart failure and was subsequently diuresed with IV Lasix. Patient had initial bowel movement on 06/22. Patient seen and examined at bedside. She continues to have right-sided abdominal pain. She reports her swelling is improved since admission. She denies any nausea or vomiting. She denies any shortness of breath. No other complaints currently Vital signs reviewed General: Nontoxic, no distress, appears at stated age Cardiovascular: S1S2 reg, no murmur Lungs: CTA bilateral, no rhonchi, no rales, no accessory muscle use Abdominal: Soft, tender to palpation diffusely, no guarding, large area of ecchymosis right flank, KAMERON drain with thick serous fluid Ext: No gross muscle atrophy, 3+ edema bilateral lower extremities, no contractures Neuro: CN II-XI grossly intact, no focal neuro deficits Psych: Alert, oriented, appropriate affect Assessment/Plan: Perforated gastric ulcer status post laparoscopy with KAMERON drain placement Pneumoperitoneum Possible acute pancreatitis -Continue with Augmentin [id number] 1 tablet every 12 hours as needed -Patient with allergy to omeprazole. Continue with Pepcid 20 mg IV daily -Surgery note reviewed: Patient will need further workup in the next few weeks to rule out any evidence of pancreatic neoplasm versus pseudocyst, should also have upper endoscopy performed in the next 2 to 3 months to confirm healing of the suspected ulcer and to rule out neoplastic changes in the stomach -Discussed with surgical nurse practitioner. Continue to monitor. -[place] 5/325 every 6 hours as needed for pain, add Flexeril 5 mg p.o. 3 times daily as needed for muscle spasms Acute blood loss anemia Thrombocytopenia, reactive -Patient has increased percent saturation with elevated ferritin levels not consistent with iron deficiency. Vitamin B12 level is also elevated. Concerns for ongoing blood loss. -Hemoglobin stable and improved today. Will repeat CBC in a.m. -CT abdomen and pelvis reviewed with no obvious source of bleeding Atrial fibrillation - eliquis is on hold - metoprolol 25 mg PO BID Acute exacerbation of chronic diastolic congestive heart failure, ejection fraction 50% -Lasix 40 mg IV every 12 hours -Metoprolol 25 mg twice daily - JACKIE wrap legs - add daily weights Imaging: CT abdomen and pelvis: Drainage catheter in place, no organized fluid collection, decreased pneumoperitoneum with no free air visualized, oral contrast extends into the rectum without extravasation, anasarca, cirrhosis, cholelithiasis, cardiomegaly Data Review: Labs reviewed from today include CBC and basic metabolic profile which are remarkable for hemoglobin 10.2, platelets 87, sodium 135, BUN 33 DVT prophylaxis: Lovenox Anticipated discharge date: in 48-[address]: Pending Clinical course This dictation was prepared using [employer] voice recognition software. Though every attempt is made to correct errors during dictation some may still exist. Objective - Vital Signs Vital signs: Vital Signs Temp 97.7 F 06/25/23 01:09 Pulse 68 06/25/23 01:09 Resp 17 06/25/23 01:09 BP 141/77 06/25/23 01:09 Pulse Ox 98 06/25/23 01:09 FiO2 21 06/18/23 14:53 Intake & Output 06/24/23 06/25/23 06/25/23 18:59 06:59 18:59 Output Total 80 1900 140 Balance -80 -1900 -140 Weight 84 kg 84 kg Output: Drainage 80 100 140 Left Abdomen 80 100 140 Urine 1800 Other: Voiding Method External Catheter External Catheter # Voids 1 # Bowel Movements 1 - Labs CBC & Chem 7: 06/25/23 07:30 06/25/23 07:30 Labs: Abnormal Lab Results - Last 24 Hours (Table) 06/24/23 Range/Units 05:59 RBC 2.56 L (4.10-5.20) X 10*6/uL Hgb 8.6 L (12.0-15.0) g/dL Hct 25.9 L (37.2-46.3) % MCV 101.2 H (80.0-97.0) FL MCH 33.6 H (27.0-32.0) pg RDW 17.1 H (11.5-14.5) % Plt Count 95 L (140-440) X 10*3/uL Immature Gran # 0.05 H (0.00-0.04) X 10*3/uL Eosinophils # 0.43 H (0.04-0.35) X 10*3/uL
[2023-06-25 08:21] LABS: African American GFR (CKD) 60 (>60 ml/min/1.73 sqM); Anion Gap 3 mmol/L; Blood Urea Nitrogen 33 mg/dL (7-17); Calcium 7.9 mg/dL (8.4-10.2); Carbon Dioxide 23 mmol/L (22-30); Chloride 109 mmol/L (98-107); Glucose 78 mg/dL (74-99); Non-African American GFR(CKD) 52 (>60 ml/min/1.73 sqM); Sodium 135 mmol/L (137-145)
[2023-06-25 08:25] LABS: HCT 31.9 % (34.0-46.0); HGB 10.2 gm/dL (11.4-16.0); Hypochromasia Slight; MCH 34.4 pg (25.0-35.0); MCV 107.7 fL (80.0-100.0); Macrocytosis Marked; Mean Platelet Volume 8.7; RBC 2.96 m/uL (3.80-5.40); RDW 15.5 % (11.5-15.5); WBC 5.7 k/uL (3.8-10.6)
[2023-06-25 08:32] LABS: Platelet Count 87 k/uL (150-450)
[2023-06-25] MEDS: CYCLOBENZAPRINE 5 MG TAB PO PRN (10:43)
[2023-06-25] MEDS: HYDROcodone/APAP 5-325MG 1 EACH TAB PO PRN (11:00)
--- NOTE | 2023-06-25 16:08 | P.PN ---
Subjective Progress Note Date: 06/25/23 CHIEF COMPLAINT: Pneumoperitoneum HISTORY OF PRESENT ILLNESS: Patient is postop day #10 status post diagnostic laparoscopy for contained perforation at the greater curvature of the stomach. Patient reports that her pain is controlled. She has minimal pain on the right side. CT scan abdomen and pelvis drainage catheter in place. No organizing fluid collections. Decrease in pneumoperitoneum with no free air visualized. No extravasation of oral contrast. Anasarca of the soft tissues with small bi lateral pleural effusions with possibility related to third spacing or fluid in setting of cirrhosis and/or heart failure. Hepatic cirrhosis. Cholelithiasis. Mild cardiomegaly. KAMERON drain with 205 mL serous output PHYSICAL EXAM: VITAL SIGNS: Reviewed. GENERAL: Well-developed in no acute distress. ABDOMEN: Soft. Nondistended. There is a stripe of ecchymosis along the right flank with tenderness. Incision sites clean dry and intact. Leaking around KAMERON drain site. KAMERON drain with serous fluid NEUROLOGIC: Alert and oriented. Cranial nerves II through XII grossly intact. ASSESSMENT: 1. Gastric perforation 2. Possible pancreatic head mass or pseudocyst on ultrasound 3. Hepatic cirrhosis PLAN: -continue dysphagia chopped diet -Continue diuretics -Continue pain management -Encourage patient ambulate. PT OT on consult -Continue antibiotics -Encourage patient to use incentive spirometer -Continue IV pepcid. Allergy to omeprazole -Continue to monitor KAMERON drain output -Recommend patient follow-up with GI service outpatient in regards to her hepatic cirrhosis -Would consider short-term follow-up CT pancreas or MRI pancreas after the patient is fully recovered from this event. Likewise patient should have upper endoscopy performed in the next 2 to 3 months to confirm healing of the suspected ulcer and to rule out neoplastic changes in the stomach. Physician Is Architect note has been reviewed by physician. Signing provider agrees with the documented findings, assessment, and plan of care. I have personally seen and examined the patient, reviewed the APPRENTICE FUNERAL DIRECTOR /PAs history, exam and MDM and agree with the assessment and plan as written. Based on total visit time, I have performed more than 50% of the visit. As above: Patient feels better today. Less pain. KAMERON drain still serous. CAT scan without evidence of perforation. Mild thickening of gallbladder wall and right colon. KAMERON drain present across the abdomen. Liver appears somewhat cirrhotic on CAT scan. Patient denies history of cirrhosis. This is certainly contributing to the patient's ascitic drainage from the KAMERON drain. Continue diuretics. GI consult when available for liver issues. Continue diet. Tent atively plan drain removal tomorrow with placement of urostomy bag on KAMERON exit site. Objective - Vital Signs Vital signs: Vital Signs Temp 97.8 F 06/25/23 07:40 Pulse 83 06/25/23 10:45 Resp 18 06/25/23 07:40 BP 130/72 06/25/23 07:40 Pulse Ox 99 06/25/23 07:40 FiO2 21 06/18/23 14:53 Intake & Output 06/24/23 06/25/23 06/25/23 18:59 06:59 18:59 Output Total 80 1900 340 Balance -80 -1900 -340 Weight 84 kg 84 kg Output: Drainage 80 100 140 Left Abdomen 80 100 140 Urine 1800 200 Other: Voiding Method External Catheter External Catheter Bedside Commode # Voids 1 # Bowel Movements 1 1 - Labs CBC & Chem 7: 06/25/23 07:30 06/25/23 07:30 Labs: Abnormal Lab Results - Last 24 Hours (Table) 06/25/23 06/25/23 Range/Units 07:30 07:30 RBC 2.96 L (3.80-5.40) m/uL Hgb 10.2 L (11.4-16.0) gm/dL Hct 31.9 L (34.0-46.0) % MCV 107.7 H (80.0-100.0) fL Plt Count 87 L (150-450) k/uL Macrocytosis Marked A Sodium 135 L (137-145) mmol/L Chloride 109 H (98-107) mmol/L BUN 33 H (7-17) mg/dL Calcium 7.9 L (8.4-10.2) mg/dL
[2023-06-26 11:06] LABS: HCT 25.3 % (37.2-46.3); HGB 8.2 g/dL (12.0-15.0); MCH 33.9 pg (27.0-32.0); MCHC 32.4 g/dL (32.0-37.0); MCV 104.5 FL (80.0-97.0); NRBC Per 100 WBC 0 X 10*3/uL (0.00-0.01); Platelet Count 84 X 10*3/uL (140-440); RBC 2.42 X 10*6/uL (4.10-5.20); RDW 17.5 % (11.5-14.5); WBC 6.08 X 10*3/uL (4.50-10.00)
[2023-06-26 11:27] LABS: BUN/Creat Ratio 24.31 Ratio (12.00-20.00); Blood Urea Nitrogen 31.6 mg/dL (9.0-27.0); Calcium 7.8 mg/dL (8.7-10.3); Carbon Dioxide 27.5 mmol/L (21.6-31.8); Chloride 106 mmol/L (96-109); Glucose 77 mg/dL (70-110); Magnesium 1.9 mg/dL (1.5-2.4); Potassium 3.9 mmol/L (3.5-5.5); Sodium 139 mmol/L (135-145)
--- NOTE | 2023-06-26 13:45 | P.PN ---
Subjective Progress Note Date: 06/26/23 (delayed charting seen at 1115) Patient is an 78-year-old female with a history of hypertension, asthma, and diastolic congestive heart failure who presented to the emergency department with complaints of abdominal pain. In the emergency department she underwent a abdominal ultrasound which showed hypoechoic area within the pancreatic head and a thickened gallbladder with concerns for cholecystitis. Initial laboratory analysis also demonstrated an elevated AST at 101, ALT 57, and lipase of 948. Patient was subsequently admitted for pancreatitis. Patient continued to have significant amounts of abdominal discomfort and subsequently underwent CT of the abdomen and pelvis on 06/15 which showed a small amount of pneumoperitoneum in the upper epigastric region, cholelithiasis, bilateral pleural effusions, and a small amount of free fluid within the pelvis. General surgery had been cons ulted. On 06/15/2023 the patient underwent diagnostic laparoscopy for pneumoperitoneum where she was found to have a contained perforation of the greater curvature of the stomach with placement of a 19 Burkin[place] KAMERON drain next to the perforation. Postoperatively the patient developed significant lower e xtremity edema along with a cough. Chest x-ray at that time showed increased interstitial edema and she was found to have acute exacerbation of her congestive heart failure and was subsequently diuresed with IV Lasix. Patient had initial bowel movement on 06/22.She had worsening anemia (iron studies, B12, and Folate normal). She underwent repeat CT abd and pelvis which showed CT abdomen and pelvis: Drainage catheter in place, no organized fluid collection, decreased pneumoperitoneum with no free air visualized, oral contrast extends into the rectum without extravasation, anasarca, cirrhosis, cholelithiasis, cardiomegaly Patient seen and examined at bedside. Her abdominal pain is somewhat decreased than yesterday. The Hilger is much more effective than the Tylenol she was taking. She denies any nausea or vomiting. She continues to have some swelling but the Sky wrap's have helped significantly. Vital signs reviewed General: Nontoxic, no distress, appears at stated age Cardiovascular: S1S2 reg, no murmur Lungs: CTA bilateral, no rhonchi, no rales, no accessory muscle use Abdominal: Soft, tender to palpation diffusely, no guarding, large area of ecchymosis right flank, KAMERON drain with thick serous fluid Ext: No gross muscle atrophy, 3+ edema bilateral lower extremities, no contr actures Neuro: CN II-XI grossly intact, no focal neuro deficits Psych: Alert, oriented, appropriate affect Assessment/Plan: Perforated gastric ulcer status post laparoscopy with KAMERON drain placement Pneumoperitoneum Possible acute pancreatitis -Continue with Augmentin 875/125 1 tablet every 12 hours as needed -Patient with allergy to omeprazole. Continue with Pepcid 20 mg IV daily -Case discussed with general surgery nurse practitioner. Will continue with diuresis. -Hilger 5/325 every 6 hours as needed for pain, Flexeril 5 mg p.o. 3 times daily as needed for muscle spasms Acute blood loss anemia Thrombocytopenia, reactive -Patient has increased percent saturation with elevated ferritin levels not consistent with iron deficiency. Vitamin B12 level is also elevated. Concerns for ongoing blood loss. -Repeat CBC in a.m. -CT abdomen and pelvis reviewed with no obvious source of bleeding Atrial fibrillation - eliquis is on hold - metoprolol 25 mg PO BID Acute exacerbation of chronic diastolic congestive heart failure, ejection fraction 50% CKD III, baseline Cr 1.5 -Lasix 40 mg IV every 12 hours -Metoprolol 25 mg twice daily - SKY wrap legs - daily weights Imaging: None new Data Review: Labs reviewed from today include CBC and basic metabolic profile which are remarkable for hemoglobin 8.2, platelets 84 DVT prophylaxis: Lovenox Anticipated discharge date: in 48-[address]: Pending Clinical course This dictation was prepared using [employer] voice recognition software. Though every attempt is made to correct errors during dictation some may still exist. Objective - Vital Signs Vital signs: Vital Signs Temp 98.1 F 06/26/23 08:00 Pulse 88 06/26/23 08:00 Resp 20 06/26/23 08:00 BP 117/57 06/26/23 08:00 Pulse Ox 99 06/26/23 02:00 FiO2 21 06/18/23 14:53 Intake & Output 06/25/23 06/26/23 06/26/23 18:59 06:59 18:59 Intake Total 600 Output Total 495 115 190 Balance -495 -115 410 Weight 83.5 kg Intake: Oral 600 Output: Drainage 295 115 190 Left Abdomen 295 115 190 Urine 200 Other: Voiding Method Bedside Commode Toilet # Voids 1 # Bowel Movements 1 - Labs CBC & Chem 7: 06/26/23 05:30 02/07/24 05:30 Labs: Abnormal Lab Results - Last 24 Hours (Table) 06/26/23 06/26/23 Range/Units 05:30 05:30 RBC 2.42 L (4.10-5.20) X 10*6/uL Hgb 8.2 L (12.0-15.0) g/dL Hct 25.3 L (37.2-46.3) % MCV 104.5 H (80.0-97.0) FL MCH 33.9 H (27.0-32.0) pg RDW 17.5 H (11.5-14.5) % Plt Count 84 L (140-440) X 10*3/uL BUN 31.6 H (9.0-27.0) mg/dL Est GFR (CKD-EPI) 42 L (>=60) BUN/Creatinine Ratio 24.31 H (12.00-20.00) Ratio Calcium 7.8 L (8.7-10.3) mg/dL
[2023-06-26] MEDS: POTASSIUM CHLORIDE ER 20 MEQ TAB.ER PO STA (14:00)
--- NOTE | 2023-06-26 15:41 | P.PN ---
Subjective Progress Note Date: 06/26/23 CHIEF COMPLAINT: Pneumoperitoneum HISTORY OF PRESENT ILLNESS: Patient is postop day #11 status post diagnostic laparoscopy for contained perforation at the greater curvature of the stomach. Pain controlled. Minimal pain right side. Patient still having significant serous output through the KAMERON drain. Afebrile. WBC is 6 Hgb 8.2 platelets 84 PHYSICAL EXAM: VITAL SIGNS: Reviewed. GENERAL: Well-developed in no acute distress. ABDOMEN: Soft. Nondistended. There is a stripe of ecchymosis along the right flank with tenderness. Incision sites clean dry and intact. Leaking around KAMERON drain site. KAMERON drain with serous fluid NEUROLOGIC: Alert and oriented. Cranial nerves II through XII grossly intact. Extremities: Edema ASSESSMENT: 1. Gastric perforation 2. Possible pancreatic head mass or pseudocyst on ultrasound 3. Hepatic cirrhosis 4. CHF PLAN: -Discontinue KAMERON drain. Place urostomy bag over KAMERON exit site -continue dysphagia chopped diet -Continue diuretics -Continue pain management -Encourage patient ambulate. PT OT on consult -Continue antibiotics -Encourage patient to use incentive spirometer -Continue IV pepcid. Allergy to omeprazole -Continue to monitor KAMERON drain output -Recommend patient follow-up with GI service outpatient in regards to her hepatic cirrhosis -Would consider short-term follow-up CT pancreas or MRI pancreas after the patient is fully recovered from this event. Likewise patient should have upper endoscopy performed in the next 2 to 3 months to confirm healing of the suspected ulcer and to rule out neoplastic changes in the stomach. Physician Commanding Officer Traffic Division note has been reviewed by physician. Signing provider agrees with the documented findings, assessment, and plan of care. Objective - Vital Signs Vital signs: Vital Signs Temp 98.1 F 06/26/23 08:00 Pulse 88 06/26/23 08:00 Resp 20 06/26/23 08:00 BP 117/57 06/26/23 08:00 Pulse Ox 99 06/26/23 02:00 FiO2 21 06/18/23 14:53 Intake & Output 06/25/23 06/26/23 06/26/23 18:59 06:59 18:59 Intake Total 600 Output Total 495 115 190 Balance -495 -115 410 Weight 83.5 kg Intake: Oral 600 Output: Drainage 295 115 190 Left Abdomen 295 115 190 Urine 200 Other: Voiding Method Bedside Commode Toilet # Voids 1 # Bowel Movements 1 - Labs CBC & Chem 7: 06/26/23 05:30 06/26/23 05:30 Labs: Abnormal Lab Results - Last 24 Hours (Table) 06/26/23 06/26/23 Range/Units 05:30 05:30 RBC 2.42 L (4.10-5.20) X 10*6/uL Hgb 8.2 L (12.0-15.0) g/dL Hct 25.3 L (37.2-46.3) % MCV 104.5 H (80.0-97.0) FL MCH 33.9 H (27.0-32.0) pg RDW 17.5 H (11.5-14.5) % Plt Count 84 L (140-440) X 10*3/uL BUN 31.6 H (9.0-27.0) mg/dL Est GFR (CKD-EPI) 42 L (>=60) BUN/Creatinine Ratio 24.31 H (12.00-20.00) Ratio Calcium 7.8 L (8.7-10.3) mg/dL
[2023-06-27 11:41] LABS: HCT 24.1 % (37.2-46.3); HGB 7.7 g/dL (12.0-15.0); MCH 33.9 pg (27.0-32.0); MCV 106.2 FL (80.0-97.0); Mean Platelet Volume 11.3 FL (9.5-12.2); NRBC Per 100 WBC 0 X 10*3/uL (0.00-0.01); Platelet Count 81 X 10*3/uL (140-440); RBC 2.27 X 10*6/uL (4.10-5.20); RDW 17.5 % (11.5-14.5); WBC 6.12 X 10*3/uL (4.50-10.00)
[2023-06-27 12:01] LABS: ALT 27 U/L (8-44); AST 68 U/L (13-35); Albumin 1.9 g/dL (3.8-4.9); Albumin/Globulin Ratio 0.83 Ratio (1.60-3.17); Alkaline Phosphatase 110 U/L (41-126); BUN/Creat Ratio 26.71 Ratio (12.00-20.00); Blood Urea Nitrogen 37.4 mg/dL (9.0-27.0); Carbon Dioxide 27.1 mmol/L (21.6-31.8); Chloride 105 mmol/L (96-109); Globulin 2.3 g/dL (1.6-3.3); Glucose 80 mg/dL (70-110); Magnesium 2.1 mg/dL (1.5-2.4); Potassium 4.4 mmol/L (3.5-5.5); Sodium 135 mmol/L (135-145); Total Bilirubin 1.3 mg/dL (0.3-1.2); Total Protein 4.2 g/dL (6.2-8.2)
--- NOTE | 2023-06-27 14:43 | P.PN ---
Subjective Progress Note Date: 06/27/23 No new complaints. Breathing has improved. KAMERON drain removed. Gen: In NAD, non-toxic HEENT: normocephalic, atraumatic, hearing acuity is intant, mucous membranes moist CVS: perfusing all extremities well, no pitting edema, Respiratory: symmetric chest expansion, no accessory muscle use, GI: soft, NTTP, ND, : no suprapubic tenderness, no CVA tenderness MSK/Derm: no rashes, cyanosis Neuro: CN II-XII intact, no motor weakness, Psych: cooperative, euthymic mood, judgment and insight is intact Hospital Course: Patient is an 78-year-old female with a history of hypertension, asthma, and diastolic congestive heart failure who presented to the emergency department with complaints of abdominal pain. In the emergency department she underwent a abdominal ultrasound which showed hypoechoic area within the pancreatic head and a thickened gallbladder with concerns for cholecystitis. Initial laboratory analysis also demonstrated an elevated AST at 101, ALT 57, and lipase of 948. Patient was subsequently admitted for pancreatitis. Patient continued to have significant amounts of abdominal discomfort and subsequently underwent CT of the abdomen and pelvis on 06/15 which showed a small amount of pneumoperitoneum in the upper epigastric region, cholelithiasis, bilateral pleural effusions, and a small amount of free fluid within the pelvis. General surgery had been consulted. On 06/15/2023 the patient underwent diagnostic laparoscopy for pneumoperitoneum where she was found to have a contained perforation of the greater curvature of the stomach with placement of a 19 [place] KAMERON drain next to the perforation. Postoperatively the patient developed significant lower extremity edema along with a cough. Chest x-ray at that time showed increased interstitial edema and she was found to have acute exacerbation of her congestive heart failure and was subsequently diuresed with IV Lasix. Patient had initial bowel movement on 06/22.She had worsening anemia (iron studies, B12, and Folate normal). She underwent repeat CT abd and pelvis which showed CT abdomen and pelvis: Drainage catheter in place, no organized fluid collection, decreased pneumoperitoneum with no free air visualized, oral contrast extends into the rectum without extravasation, anasarca, cirrhosis, cholelithiasis, car diomegaly Assessment/Plan: Perforated gastric ulcer status post laparoscopy with KAMERON drain placement Pneumoperitoneum Possible acute pancreatitis -Continue with Augmentin 875/125 1 tablet every 12 hours as needed -Patient with allergy to omeprazole. Continue with Pepcid 20 mg IV daily -Case discussed with general surgery nurse practitioner. Will continue with diuresis. -[place] 5/325 every 6 hours as needed for pain, Flexeril 5 mg p.o. 3 times daily as needed for muscle spasms Acute blood loss anemia Thrombocytopenia, reactive -Patient has increased percent saturation with elevated ferritin levels not consistent with iron deficiency. Vitamin B12 level is also elevated. Concerns for ongoing blood loss. -Repeat CBC in a.m. -CT abdomen and pelvis reviewed with no obvious source of bleeding Atrial fibrillation - yovannyquis is on hold - metoprolol 25 mg PO BID Acute exacerbation of chronic diastolic congestive heart failure, ejection fraction 50% CKD III, baseline Cr 1.5 -Lasix 40 mg IV every 12 hours -Metoprolol 25 mg twice daily - JACKIE wrap legs - daily weights Imaging: None new Data Review: Labs reviewed from today include CBC and basic metabolic profile which are remar kable for hemoglobin 8.2, platelets 84 DVT prophylaxis: Lovenox Anticipated discharge date: in 48-[address]: Pending Clinical course This dictation was prepared using [employer] voice recognition software. Though every attempt is made to correct errors during dictation some may still exist. Objective - Vital Signs Vital signs: Vital Signs Temp 98.3 F 06/27/23 07:20 Pulse 83 06/27/23 07:20 Resp 15 06/27/23 07:20 BP 130/83 06/27/23 07:20 Pulse Ox 96 06/27/23 07:20 FiO2 21 06/18/23 14:53 Intake & Output 06/26/23 06/27/23 06/27/23 18:59 06:59 18:59 Intake Total 720 240 Output Total 190 Balance 530 240 Weight 82 kg Intake: Oral 720 240 Output: Drainage 190 Left Abdomen 190 Other: Voiding Method Toilet Toilet Toilet # Voids 2 - Labs CBC & Chem 7: 06/27/23 06:44 06/27/23 06:44 Labs: Abnormal Lab Results - Last 24 Hours (Table) 06/27/23 06/27/23 Range/Units 06:44 06:44 RBC 2.27 L (4.10-5.20) X 10*6/uL Hgb 7.7 L (12.0-15.0) g/dL Hct 24.1 L (37.2-46.3) % MCV 106.2 H (80.0-97.0) FL MCH 33.9 H (27.0-32.0) pg RDW 17.5 H (11.5-14.5) % Plt Count 81 L (140-440) X 10*3/uL Anion Gap 2.90 L (4.00-12.00) mmol/L BUN 37.4 H (9.0-27.0) mg/dL Est GFR (CKD-EPI) 38 L (>=60) BUN/Creatinine Ratio 26.71 H (12.00-20.00) Ratio Calcium 8.0 L (8.7-10.3) mg/dL Total Bilirubin 1.3 H (0.3-1.2) mg/dL AST 68 H (13-35) U/L Total Protein 4.2 L (6.2-8.2) g/dL Albumin 1.9 L (3.8-4.9) g/dL Albumin/Globulin Ratio 0.83 L (1.60-3.17) Ratio
[2023-06-27 16:08] VITALS: BP 112/67; PULSE 76; RESP 17; TEMP 98.2
--- NOTE | 2023-06-27 17:08 | P.DS ---
Providers Date of admission: 06/14/23 18:54 Expected date of discharge: 06/27/23 Attending physician: Daniele Rojas MD Consults: 06/14/23 19:07 Consult Physician Routine Consulting Provider: Barry Baker Consult Reason/Comments: Abdominal pain Do you want consulting provider notified?: Already Contacted Primary care physician: [facility] Course: Perforated gastric ulcer status post laparoscopy with KAMERON drain placement Pneumoperitoneum Possible acute pancreatitis Acute blood loss anemia Thrombocytopenia, reactive Paroxysmal Atrial fibrillation Acute exacerbation of chronic diastolic congestive heart failure, ejection fraction 50% CKD III, baseline Cr 1.5 Gen: In NAD, non-toxic HEENT: normocephalic, atraumatic, hearing acuity is intant, mucous membranes moist CVS: perfusing all extremities well, no pitting edema, Respiratory: symmetric chest expansion, no accessory muscle use, GI: soft, NTTP, ND, : no suprapubic tenderness, no CVA tenderness MSK/Derm: no rashes, cyanosis Neuro: CN II-XII intact, no motor weakness, Psych: cooperative, euthymic mood, judgment and insight is intact Hospital Course: Patient is an 78-year-old female with a history of hypertension, asthma, and diastolic congestive heart failure who presented to the emergency department with complaints of abdominal pain. In the emergency department she underwent a abdominal ultrasound which showed hypoechoic area within the pancreatic head and a thickened gallbladder with concerns for cholecystitis. Initial laboratory analysis also demonstrated an elevated AST at 101, ALT 57, and lipase of 948. Patient was subsequently admitted for pancreatitis. Patient continued to have significant amounts of abdominal discomfort and subsequently underwent CT of the abdomen and pelvis on 06/15 which showed a small amount of pneumoperitoneum in the upper epigastric region, cholelithiasis, bilateral pleural effusions, and a small amount of free fluid within the pelvis. General surgery had been consulted. On 06/15/2023 the patient underwent diagnostic laparoscopy for pneumoperitoneum where she was found to have a contained perforation of the greater curvature of the stomach with placement of a 19 Italian KAMERON drain next to the perforation. Postoperatively the patient developed significant lower extremity edema along with a cough. Chest x-ray at that time showed increased interstitial edema and she was found to have acute exacerbation of her congestive heart failure and was subsequently diuresed with IV Lasix. Patient had initial bowel movement on 06/22.She had worsening anemia (iron studies, B12, and Folate normal). She underwent repeat CT abd and pelvis which showed CT abdomen and pelvis: Drainage catheter in place, no organized fluid collection, decreased pneumoperitoneum with no free air visualized, oral contrast extends into the rectum without extravasation, anasarca, cirrhosis, cholelithiasis, cardiomegaly; this was removed on 06/27. Pt was kept an additional day for IV diuretics, and was doing well on day of discharge. She will f/u with PCP in clinic. I spent 40 minutes coordinating this discharge on 06/27 Patient Condition at Discharge: Good Plan - Discharge Summary Discharge Rx Participant: Yes New Discharge Prescriptions: New Amoxic-Pot Clav 875-125Mg [Augmentin 875-125] 1 each PO Q12HR #12 tab Famotidine [Pepcid] 20 mg PO DAILY #30 tablet Acetaminophen Tab [Tylenol] 1,000 mg PO Q6HR PRN tab PRN Reason: Fever And/ Or Pain Continue Vit C/E/Zn/Coppr/Lutein/Zeaxan [Preservision Areds 2 Softgel] 1 cap PO BID Cholecalciferol (Vitamin D3) [Vitamin D3 (125 MCG = 5,000 IU)] 125 mcg PO DAILY Magnesium Oxide [Mag-Ox] 400 mg PO HS Folic Acid 1 mg PO DAILY Bumetanide [BUMEX] 1 mg PO BID Metoprolol Tartrate [Lopressor] 25 mg PO BID 30 Days #60 tablet Cyanocobalamin (Vitamin B-12) [Vitamin B-12] 1,000 mcg PO DAILY Potassium Gluconate 99 mg PO DAILY Apixaban [Eliquis] 5 mg PO BID 90 Days #180 tab Discontinued cefUROXime axetiL [Ceftin] 500 mg PO BID 3 Days #6 tab metroNIDAZOLE [Flagyl] 500 mg PO TID 3 Days #9 tab predniSONE See Taper PO DIRECTED Discharge Medication List Cyanocobalamin (Vitamin B-12) [Vitamin B-12] 1,000 mcg PO DAILY 12/30/20 [History] Vit C/E/Zn/Coppr/Lutein/Zeaxan [Preservision Areds 2 Softgel] 1 cap PO BID 12/30/20 [History] Cholecalciferol (Vitamin D3) [Vitamin D3 (125 MCG = 5,000 IU)] 125 mcg PO DAILY 04/25/21 [History] Magnesium Oxide [Mag-Ox] 400 mg PO HS 02/04/23 [History] Bumetanide [BUMEX] 1 mg PO BID 06/08/23 [History] Folic Acid 1 mg PO DAILY 06/08/23 [History] Potassium Gluconate 99 mg PO DAILY 06/08/23 [History] Apixaban [Eliquis] 5 mg PO BID 90 Days #180 tab 06/12/23 [Rx] Metoprolol Tartrate [Lopressor] 25 mg PO BID 30 Days #60 tablet 06/12/23 [Rx] Acetaminophen Tab [Tylenol] 1,000 mg PO Q6HR PRN tab 06/27/23 [Rx] Amoxic-Pot Clav 875-125Mg [Augmentin 875-125] 1 each PO Q12HR #12 tab 06/27/23 [Rx] Famotidine [Pepcid] 20 mg PO DAILY #30 tablet 06/27/23 [Rx] Follow up Appointment(s)/Referral(s): Barry Baker MD [Medical Doctor] - 1 Week Ricki Hood DO [Primary Care Provider] - 1-2 days Patient Instructions/Handouts: Heart Failure (DC) Discharge Disposition: HOME SELF-CARE
--- NOTE | 2023-06-27 17:33 | P.PN ---
Subjective Progress Note Date: 06/27/23 CHIEF COMPLAINT: Pneumoperitoneum HISTORY OF PRESENT ILLNESS: Patient is postop day #12 status post diagnostic laparoscopy for contained perforation at the greater curvature of the stomach. Patient denies any abdominal pain. She is tolerating diet. She is having bowel movements. KAMERON drain was removed yesterday she had the urostomy bag over KAMERON drain site which only had a small amount of bloody discharge. No evidence of ascites. Afebrile WBC 6.12 Hgb 7.7 PHYSICAL EXAM: VITAL SIGNS: Reviewed. GENERAL: Well-developed in no acute distress. ABDOMEN: Soft. Nondistended. There is a stripe of ecchymosis along the right flank with tenderness. Incision sites clean dry and intact. Leaking around KAMERON drain site. KAMERON drain with serous fluid NEUROLOGIC: Alert and oriented. Cranial nerves II through XII grossly intact. Extremities: Edema ASSESSMENT: 1. Gastric perforation 2. Possible pancreatic head mass or pseudocyst on ultrasound 3. Hepatic cirrhosis 4. CHF PLAN: -Patient can be discharged from surgical standpoint -Remove renata from incision site before discharge -Remove urostomy bag and cover with gauze -Recommend patient follow-up with GI service outpatient in regards to her h epatic cirrhosis -Would consider short-term follow-up CT pancreas or MRI pancreas after the patient is fully recovered from this event. Likewise patient should have upper endoscopy performed in the next 2 to 3 months to confirm healing of the suspected ulcer and to rule out neoplastic changes in the stomach. Physician Blow Molding Machine Tender note has been reviewed by physician. Signing provider agrees with the documented findings, assessment, and plan of care. Objective - Vital Signs Vital signs: Vital Signs Temp 98.2 F 06/27/23 13:13 Pulse 76 06/27/23 13:13 Resp 17 06/27/23 13:13 BP 112/67 06/27/23 13:13 Pulse Ox 98 06/27/23 13:13 FiO2 21 06/18/23 14:53 Intake & Output 06/26/23 06/27/23 06/27/23 18:59 06:59 18:59 Intake Total 720 240 Output Total 190 Balance 530 240 Weight 82 kg Intake: Oral 720 240 Output: Drainage 190 Left Abdomen 190 Other: Voiding Method Toilet Toilet Toilet # Voids 2 - Labs CBC & Chem 7: 06/27/23 06:44 06/27/23 06:44 Labs: Abnormal Lab Results - Last 24 Hours (Table) 06/27/23 06/27/23 Range/Units 06:44 06:44 RBC 2.27 L (4.10-5.20) X 10*6/uL Hgb 7.7 L (12.0-15.0) g/dL Hct 24.1 L (37.2-46.3) % MCV 106.2 H (80.0-97.0) FL MCH 33.9 H (27.0-32.0) pg RDW 17.5 H (11.5-14.5) % Plt Count 81 L (140-440) X 10*3/uL Anion Gap 2.90 L (4.00-12.00) mmol/L BUN 37.4 H (9.0-27.0) mg/dL Est GFR (CKD-EPI) 38 L (>=60) BUN/Creatinine Ratio 26.71 H (12.00-20.00) Ratio Calcium 8.0 L (8.7-10.3) mg/dL Total Bilirubin 1.3 H (0.3-1.2) mg/dL AST 68 H (13-35) U/L Total Protein 4.2 L (6.2-8.2) g/dL Albumin 1.9 L (3.8-4.9) g/dL Albumin/Globulin Ratio 0.83 L (1.60-3.17) Ratio
== END 2023-06-27 16:06 | disposition home or self-care (01) | DRG 326 ==
LOC: EC 14:39 → 4SSUR 18:54
PROVIDERS: ADMIT Student in an Organized Health Care Education/Training Program; ATTEND Student in an Organized Health Care Education/Training Program
PROC: 0W9G40Z Drainage of Peritoneal Cavity with Drainage Device, Percutaneous Endoscopic Approach (ICD-10-PCS; principal; 2023-06-15 17:34)
PROC: 0DJ04ZZ Inspection of Upper Intestinal Tract, Percutaneous Endoscopic Approach (ICD-10-PCS; principal; 2023-06-15 17:34)
DX: K25.5 Chronic or unspecified gastric ulcer with perforation (principal); I50.33 Acute on chronic diastolic (congestive) heart failure; K85.10 Biliary acute pancreatitis without necrosis or infection; D62 Acute posthemorrhagic anemia; I13.0 Hypertensive heart and chronic kidney disease with heart failure and stage 1 through stage 4 chronic kidney disease, or unspecified chronic kidney disease; K83.09 Other cholangitis; N17.9 Acute kidney failure, unspecified; D53.9 Nutritional anemia, unspecified; D63.1 Anemia in chronic kidney disease; D69.6 Thrombocytopenia, unspecified; I48.0 Paroxysmal atrial fibrillation; J45.909 Unspecified asthma, uncomplicated; K74.60 Unspecified cirrhosis of liver; K80.20 Calculus of gallbladder without cholecystitis without obstruction; N18.30 Chronic kidney disease, stage 3 unspecified; T50.2X5A Adverse effect of carbonic-anhydrase inhibitors, benzothiadiazides and other diuretics, initial encounter; Z79.01 Long term (current) use of anticoagulants; Z79.899 Other long term (current) drug therapy; Z88.0 Allergy status to penicillin; Z88.8 Allergy status to other drugs, medicaments and biological substances
CPT/HCPCS: 36415; 71045; 74176; 74177; 76705; 80048; 80053; 80076; 81001; 82150; 82607; 82728; 82746; 83540; 83550; 83605; 83690; 83735; 85025; 85027; 86140; 87040; 94760; 96374; 99285

== ENCOUNTER → 2023-07-30 | Outpatient (CLI) | payer MEDICARE ==
[2023-07-31 03:02] LABS: HCT 30.4 % (37.2-46.3); HGB 10.2 g/dL (12.0-15.0); MCH 34.6 pg (27.0-32.0); MCHC 33.6 g/dL (32.0-37.0); MCV 103.1 FL (80.0-97.0); Mean Platelet Volume 10.9 FL (9.5-12.2); NRBC Per 100 WBC 0.02 X 10*3/uL (0.00-0.01); Platelet Count 115 X 10*3/uL (140-440); RBC 2.95 X 10*6/uL (4.10-5.20); RDW 17.3 % (11.5-14.5); WBC 8.78 X 10*3/uL (4.50-10.00)
[2023-07-31 03:51] LABS: BUN/Creat Ratio 37.94 Ratio (12.00-20.00); Blood Urea Nitrogen 64.5 mg/dL (9.0-27.0); Calcium 8.5 mg/dL (8.7-10.3); Carbon Dioxide 22.8 mmol/L (21.6-31.8); Chloride 103 mmol/L (96-109); Glucose 95 mg/dL (70-110); Sodium 139 mmol/L (135-145)
== END | disposition home or self-care (01) ==
LOC: LABWHC1 15:37
PROVIDERS: ATTEND Internal Medicine Interventional Cardiology
DX: I48.0 Paroxysmal atrial fibrillation (principal); I39 Endocarditis and heart valve disorders in diseases classified elsewhere; I42.8 Other cardiomyopathies; I44.7 Left bundle-branch block, unspecified
CPT/HCPCS: 36415; 80048; 85027

== ENCOUNTER 2023-08-03 00:32 | Inpatient (IN) | payer MEDICARE ==
[2023-08-03] MEDS: MORPHINE SULFATE 4 MG/ML SYRINGE IV STA (01:39)
[2023-08-03 01:41] LABS: Anisocytosis Slight; Basophils # (A) 0.1 k/uL (0-0.2); Basophils % (A) 0 %; Eosinophils # (A) 0.6 k/uL (0-0.7); Eosinophils % (A) 3 %; HCT 31.9 % (34.0-46.0); HGB 10.4 gm/dL (11.4-16.0); Lymphocytes # (A) 1.1 k/uL (1.0-4.8); Lymphocytes % (A) 4 %; MCH 35.2 pg (25.0-35.0); MCHC 32.6 g/dL (31.0-37.0); Macrocytosis Marked; Mean Platelet Volume 8.4; Monocytes % (A) 4 %; Neutrophils # (A) 21.9 k/uL (1.3-7.7); Neutrophils % (A) 87 %; RBC 2.96 m/uL (3.80-5.40); RDW 16.3 % (11.5-15.5)
[2023-08-03 01:46] LABS: ALT 43 U/L (4-34); AST 105 U/L (14-36); African American GFR (CKD) 35 (>60 ml/min/1.73 sqM); Albumin 2.9 g/dL (3.5-5.0); Alkaline Phosphatase 244 U/L (38-126); Anion Gap 8 mmol/L; Blood Urea Nitrogen 74 mg/dL (7-17); Calcium 8.5 mg/dL (8.4-10.2); Carbon Dioxide 22 mmol/L (22-30); Chloride 105 mmol/L (98-107); Glucose 108 mg/dL (74-99); Non-African American GFR(CKD) 30 (>60 ml/min/1.73 sqM); Potassium 3.8 mmol/L (3.5-5.1); Sodium 135 mmol/L (137-145); Total Protein 7.3 g/dL (6.3-8.2)
[2023-08-03 01:50] LABS: Platelet Count 136 k/uL (150-450)
[2023-08-03 01:56] LABS: NT-Pro-B-Type Natriuretic Pept 5000 pg/mL
[2023-08-03] MEDS: CEFEPIME 2 GM in SODIUM CHLORIDE 0.9% 100 ML IVPB STA (07:00)
--- NOTE | 2023-08-03 07:20 | CT ---
EXAMINATION TYPE: CT abdomen pelvis wo con CT DLP: 496.7 mGycm, Automated exposure control for dose reduction was used. DATE OF EXAM: 08/03/2023 3:10 AM COMPARISON: CT with contrast 06/25/2023 CLINICAL INDICATION:Female, 78 years old with history of flank pain; Pt presents to by EMS with r/ o worsening leg edema. TECHNIQUE: Axial CT of the abdomen and pelvis. Sagittal and coronal reformats were created on a [employer] workstation. Contrast used: mL of , (none if empty) Oral contrast used: without Oral Contrast (none if empty) FINDINGS: Exam is limited without contrast. LOWER CHEST: Heart is mildly enlarged. No significant pleural effusions at this time. ABDOMEN LIVER: Nodular contour of the liver. GALLBLADDER AND BILE DUCTS: Layering increased attenuation in the gallbladder lumen could be related to sludge or tiny gallstones. PANCREAS: No acute finding SPLEEN: Unremarkable. ADRENAL GLANDS: Unremarkable. KIDNEYS AND URETERS: Nonobstructing left renal calculus measuring 3 mm. No right renal calculi. No ob structive uropathy. PELVIS BLADDER: Mildly distended, grossly unremarkable. Pelvic phlebolith are noted. REPRODUCTIVE: Uterus not clearly identified, may be absent or atrophic. No pelvic mass is suggested. ABDOMEN & PELVIS STOMACH AND BOWEL: Limited without enteric contrast. No evidence of bowel obstruction. Normal appendi x. Moderate stool throughout colon. PERITONEUM/RETROPERITONEUM: No evidence of pneumoperitoneum or free fluid. Drainage tubing previously in the left upper abdomen has apparently been removed. VASCULATURE: No evidence of aortic aneurysm. Moderate atherosclerotic calcification MUSCULOSKELETAL: No acute osseous abnormalities. Moderate disc degeneration changes are present throu ghout the thoracolumbar spine. LYMPH NODES: No gross evidence for lymphadenopathy. SOFT TISSUE/ABDOMINAL WALL: Anasarca of the soft tissues appears improved. Previous surgical clips al lyndsey the anterior abdominal wall no longer seen. A few foci of gas in the subcutaneous tissue seen bef ore no longer identified. IMPRESSION: 1. Previous drainage catheter in the left upper abdomen has been removed. 2. Improved anasarca of the soft tissues. Previous pleural effusions have essentially resolved. 3. Mild cardiomegaly. 4. Cirrhotic hepatic morphology. 5. Cholelithiasis versus sludge. 6. No new acute abnormality demonstrated in the limits of unenhanced exam.
[2023-08-03 07:32] LABS: Appearance,Urine Clear (Clear); Bilirubin,Urine Negative (Negative); Blood,Urine Negative (Negative); Color,Urine Colorless; Glucose,Urine (UA) Negative (Negative); Ketones,Urine Negative (Negative); Leukocyte Esterase,Urine Negative (Negative); Nitrite,Urine Negative (Negative); Protein,Urine Negative (Negative); Specific Gravity,Urine 1.014 (1.001-1.035); Urobilinogen,Urine <2.0 mg/dL (<2.0)
--- NOTE | 2023-08-03 08:07 | ED ---
General Adult HPI - General Chief complaint: Extremity Problem,Nontraumatic Stated complaint: Fluid retention Time Seen by Provider: 08/03/23 00:40 Source: patient, EMS Mode of arrival: EMS Limitations: no limitations - History of Present Illness Initial comments: This patient is an 78-year-old woman who presents to have evaluation for 2 issues. The patient states she has been having problem with bilateral lower extremity edema. This is gotten worse over number days. She also is having pain across the low back in the low lumbar area. She denies any known injury there. She does not have radiation to the legs. She does not have change in bladder or bowel function. The patient states that she had seen Dr. Troy in the clinic on Saturday and he recommended that she go to the emergency department then, but she wanted to see if diuretics would help. When the symptoms were worse tonight, she felt she should be evaluated in the emergency department. And has not noted fever or chills. No chest pain, cough, dyspnea. She has not noted change in urination or bowel movements. -: days(s) Location: back Radiation: non-radiation Severity scale (1-10): 8 Quality: aching Consistency: constant Improves with: none Worsens with: none Associated Symptoms: other (Leg edema) Treatments Prior to Arrival: none - Related Data Home Medications Medication Instructions Recorded Confirmed Cyanocobalamin (Vitamin B-12) 1,000 mcg PO DAILY 12/30/20 08/03/23 [Vitamin B-12] Vit C/E/Zn/Coppr/Lutein/Zeaxan 1 cap PO BID 12/30/20 08/03/23 [Preservision Areds 2 Softgel] Cholecalciferol (Vitamin D3) 125 mcg PO DAILY 04/25/21 08/03/23 [Vitamin D3 (125 MCG = 5,000 IU)] Magnesium Oxide [Mag-Ox] 400 mg PO HS 02/04/23 08/03/23 Folic Acid 1 mg PO DAILY 06/08/23 08/03/23 Potassium Gluconate 99 mg PO DAILY 06/08/23 08/03/23 Albuterol Sulfate [Ventolin HFA] 1 - 2 puff INHALATION RT-Q4H PRN 08/03/23 08/03/23 Apixaban [Eliquis] 2.5 mg PO BID 08/03/23 08/03/23 Famotidine [Pepcid] 20 mg PO BID 08/03/23 08/03/23 Ferrous Sulfate [Feosol] 325 mg PO DAILY 08/03/23 08/03/23 Ipratropium-Albuterol Nebulize 3 ml INHALATION RT-QID PRN 08/03/23 08/03/23 [Duoneb 0.5 mg-3 mg/3 ml Soln] Torsemide [Demadex] 20 mg PO DAILY 08/03/23 08/03/23 Previous Rx's Medication Instructions Recorded Metoprolol Tartrate [Lopressor] 25 mg PO BID 30 Days #60 tablet 06/12/23 Allergies Allergy/AdvReac Type Severity Reaction Status Date / Time omeprazole [From Prilosec] Allergy Unknown Rash/Hives, Verified 08/06/23 16:44 TONGUE SWELLLING omeprazole magnesium Allergy Unknown Rash/Hives, Verified 08/06/23 16:44 [From Prilosec] TONGUE SWELLLING Penicillins Allergy Unknown Rash/Hives/ Verified 08/06/23 16:44 Itching amlodipine Allergy fide pedal Verified 08/06/23 16:44 edema, loss voice carvedilol Allergy shortness Verified 08/06/23 16:44 of breath lisinopril Allergy Unknown Verified 08/06/23 16:44 Review of Systems ROS Statement: Those systems with pertinent positive or pertinent negative responses have been documented in the HPI. ROS Other: All systems not noted in ROS Statement are negative. Constitutional: Denies: fever, chills, weakness Respiratory: Denies: cough, dyspnea Cardiovascular: Reports: edema. Denies: chest pain, palpitations, orthopnea, syncope Gastrointestinal: Denies: abdominal pain, nausea, vomiting, diarrhea Genitourinary: Denies: dysuria, hematuria Musculoskeletal: Denies: back pain Skin: Reports: change in color. 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 History of Any Multi-Drug Resistant Organisms: None Reported Past Surgical History: Heart Catheterization Additional Past Surgical History / Comment(s): EYE SURGERY DUE TO INJURY, EGD, COLONOSCOPY, BONE MARROW BIOPSY, cataracts, muscle biopsy Past Anesthesia/Blood Transfusion Reactions: No Reported Reaction Past Psychological History: No Psychological Hx Reported Smoking Status: Never smoker Past Alcohol Use History: Occasional Past Drug Use History: None Reported - Past Family History Sister(s) Family Medical History: Cancer Additional Family Medical History / Comment(s): LEUKEMIA- at age 42 Brother(s) Family Medical History: Cancer Additional Family Medical History / Comment(s): with unknown type CA at age 60s General Exam General appearance: alert, in no apparent distress Head exam: Present: atraumatic, normocephalic Eye exam: Present: normal appearance. Absent: scleral icterus, conjunctival injection Neck exam: Present: normal inspection Respiratory exam: Present: normal lung sounds bilaterally. Absent: respiratory distress, wheezes, rales, rhonchi, stridor, accessory muscle use Cardiovascular Exam: Present: regular rate, normal rhythm, normal heart sounds. Absent: systolic murmur, diastolic murmur, rubs, gallop GI/Abdominal exam: Present: soft. Absent: distended, tenderness, guarding, rebound, rigid, mass Extremities exam: Present: normal inspection, normal capillary refill, pedal edema. Absent: calf tenderness Back exam: Present: normal inspection. Absent: CVA tenderness (R), CVA tenderness (L) Neurological exam: Present: alert. Absent: motor sensory deficit Skin exam: Present: warm, dry, intact, rash (Left medial thigh has approximately 4 cm diameter area of erythema), erythema Course Vital Signs 08/03/23 08/03/23 08/03/23 00:35 01:51 03:49 Temperature 98.8 F Pulse Rate 70 78 60 Respiratory 17 16 19 Rate Blood Pressure 141/66 125/52 127/64 O2 Sat by Pulse 95 96 Oximetry 08/03/23 08/03/23 08/03/23 05:19 06:00 07:30 Temperature 97.3 F L Pulse Rate 80 57 L 60 Respiratory 18 18 17 Rate Blood Pressure 121/66 131/60 158/72 O2 Sat by Pulse 100 Oximetry 08/03/23 08:33 Temperature Pulse Rate 82 Respiratory 17 Rate Blood Pressure 157/52 O2 Sat by Pulse 100 Oximetry Medical Decision Making - Medical Decision Making This patient is an 78-year-old woman with bilateral lower extremity edema and also with low back pain. The patient's workup does show some leukocytosis which is new from her baseline. There is no evident fever in the workup thus far. The patient does have area of erythema to the left medial thigh and CT scan is ordered to ensure no deeper tissue infection. The patient will be admitted for further symptom control, infectious disease consultation, and treatment. Was pt. sent in by a medical professional or institution (, PA, BIN FILLER, urgent care, hospital, or detention...) When possible be specific @ -[No] Did you speak to anyone other than the patient for history (EMS, parent, family, police, friend...)? What history was obtained from this source @ -[No] Did you review nursing and triage notes (agree or disagree)? Why? @ -[I reviewed and agree with nursing and triage notes] Were old charts reviewed (outside hosp., previous admission, EMS record, old EKG, old radiological studies, urgent care reports/EKG's, detention records)? Report findings @ -[No old charts were reviewed] Differential Diagnosis (chest pain, altered mental status, abdominal pain women, abdominal pain men, vaginal bleeding, weakness, fever, dyspnea, syncope, headache, dizziness, GI bleed, back pain, seizure, CVA, palpatations, mental he alth, musculoskeletal)? @ -[Differential Back Pain: Strain, zoster, cauda equina syndrome, epidural abscess, vertebral osteomyelitis, discitis, fracture, subluxation, disc herniation, DJD, spinal st enosis, dissection, AAA, pancreatitis, peptic ulcer disease, pyelonephritis, kidney stone, this is not meant to be an all-inclusive list. EKG interpreted by me (3pts min.). @ -[Interpreted as above] X-rays interpreted by me (1pt min.). @ -[I interpreted as above CT interpreted by me (1pt min.). @ -[None done] U/S interpreted by me (1pt. min.). @ -[None done] What testing was considered but not performed or refused? (CT, X-rays, U/S, labs)? Why? @ -[None] What meds were considered but not given or refused? Why? @ -[None] Did you discuss the management of the patient with other professionals (professionals i.e. , PA, BIN FILLER, lab, RT, psych nurse, transition social worker, obiee obia solution architect, teacher, enforcement safety officer, correctional counselor/case manager)? Give summary @ -[Case discussed with admitting physician and treatment recommendations incorporated Was smoking cessation discussed for >3mins.? @ -[No] Was critical care preformed (if so, how long)? @ -[No] Were there social determinants of health that impacted care today? How? (Homelessness, low income, unemployed, alcoholism, drug addiction, transportation, low edu. Level, literacy, decrease access to med. care, [facility], rehab)? @ -[No] Was there de-escalation of care discussed even if they declined (Discuss DNR or withdrawal of care, Hospice)? DNR status @ -[No] What co-morbidities impacted this encounter? (DM, HTN, Smoking, COPD, CAD, Cancer, CVA, ARF, Chemo, Hep., AIDS, mental health diagnosis, sleep apnea, morbid obesity)? @ -[None] Was patient admitted / discharged? Hospital course, mention meds given and route, prescriptions, significant lab abnormalities, going to OR and other pertinent info. @ -[Patient is an 78-year-old woman here with low back pain and leg edema who is found to have significant leukocytosis. The patient is undergoing workup for source of infection and at the time of signout to the following physician is pending CT scan of the lower extremity to rule out deep tissue infection. The patient has received empiric antibiotics, suspected cellulitis. Undiagnosed new problem with uncertain prognosis? @ -[No] Drug Therapy requiring intensive monitoring for toxicity (Heparin, Nitro, Insulin, Cardizem)? @ -[No] Were any procedures done? @ -[No] Diagnosis/symptom? @ -[Acute cellulitis Leukocytosis Low back pain, chronic Acute, or Chronic, or Acute on Chronic? @ -[default] Uncomplicated (without systemic symptoms) or Complicated (systemic symptoms)? @ -[Uncomplicated Side effects of treatment? @ -[No] Exacerbation, Progression, or Severe Exacerbation? @ -[No] Poses a threat to life or bodily function? How? (Chest pain, [place], [place], pneumonia, PE, COPD, DKA, ARF, appy, cholecystitis, CVA, Diverticulitis, Homicidal, Antonia cidal, threat to staff... and all critical care pts) @ -[Yes - Lab Data Result diagrams: 08/06/23 07:10 08/06/23 07:10 Lab Results 08/03/23 08/03/23 08/03/23 Range/Units 00:49 00:49 00:49 WBC 25.0 H (3.8-10.6) k/uL RBC 2.96 L (3.80-5.40) m/uL Hgb 10.4 L (11.4-16.0) gm/dL Hct 31.9 L (34.0-46.0) % MCV 108.0 H (80.0-100.0) fL MCH 35.2 H (25.0-35.0) pg MCHC 32.6 (31.0-37.0) g/dL RDW 16.3 H (11.5-15.5) % Plt Count 136 L D (150-450) k/uL MPV 8.4 Neutrophils % 87 % Lymphocytes % 4 % Monocytes % 4 % Eosinophils % 3 % Basophils % 0 % Neutrophils # 21.9 H (1.3-7.7) k/uL Lymphocytes # 1.1 (1.0-4.8) k/uL Monocytes # 1.0 (0-1.0) k/uL Eosinophils # 0.6 (0-0.7) k/uL Basophils # 0.1 (0-0.2) k/uL Anisocytosis Slight Macrocytosis Marked A Sodium 135 L (137-145) mmol/L Potassium 3.8 (3.5-5.1) mmol/L Chloride 105 (98-107) mmol/L Carbon Dioxide 22 (22-30) mmol/L Anion Gap 8 mmol/L BUN 74 H (7-17) mg/dL Creatinine 1.59 H (0.52-1.04) mg/dL Est GFR (CKD-EPI)AfAm 35 (>60 ml/min/1.73 sqM) Est GFR (CKD-EPI)NonAf 30 (>60 ml/min/1.73 sqM) Glucose 108 H (74-99) mg/dL Plasma Lactic Acid Shane 1.7 (0.7-2.0) mmol/L Calcium 8.5 (8.4-10.2) mg/dL Total Bilirubin 3.0 H (0.2-1.3) mg/dL AST 105 H (14-36) U/L ALT 43 H (4-34) U/L Alkaline Phosphatase 244 H (38-126) U/L Troponin I (0.000-0.034) ng/mL NT-Pro-B Natriuret Pep 5000 pg/mL Total Protein 7.3 (6.3-8.2) g/dL Albumin 2.9 L (3.5-5.0) g/dL Urine Color Urine Appearance (Clear) Urine pH (5.0-8.0) Ur Specific [place] (1.001-1.035) Urine Protein (Negative) Urine Glucose (UA) (Negative) Urine Ketones (Negative) Urine Blood (Negative) Urine Nitrite (Negative) Urine Bilirubin (Negative) Urine Urobilinogen (<2.0) mg/dL Ur Leukocyte Esterase (Negative) 08/03/23 08/03/23 Range/Units 00:49 07:17 WBC (3.8-10.6) k/uL RBC (3.80-5.40) m/uL Hgb (11.4-16.0) gm/dL Hct (34.0-46.0) % MCV (80.0-100.0) fL MCH (25.0-35.0) pg MCHC (31.0-37.0) g/dL RDW (11.5-15.5) % Plt Count (150-450) k/uL MPV Neutrophils % % Lymphocytes % % Monocytes % % Eosinophils % % Basophils % % Neutrophils # (1.3-7.7) k/uL Lymphocytes # (1.0-4.8) k/uL Monocytes # (0-1.0) k/uL Eosinophils # (0-0.7) k/uL Basophils # (0-0.2) k/uL Anisocytosis Macrocytosis Sodium (137-145) mmol/L Potassium (3.5-5.1) mmol/L Chloride (98-107) mmol/L Carbon Dioxide (22-30) mmol/L Anion Gap mmol/L BUN (7-17) mg/dL Creatinine (0.52-1.04) mg/dL Est GFR (CKD-EPI)AfAm (>60 ml/min/1.73 sqM) Est GFR (CKD-EPI)NonAf (>60 ml/min/1.73 sqM) Glucose (74-99) mg/dL Plasma Lactic Acid Shane (0.7-2.0) mmol/L Calcium (8.4-10.2) mg/dL Total Bilirubin (0.2-1.3) mg/dL AST (14-36) U/L ALT (4-34) U/L Alkaline Phosphatase (38-126) U/L Troponin I 0.026 (0.000-0.034) ng/mL NT-Pro-B Natriuret Pep pg/mL Total Protein (6.3-8.2) g/dL Albumin (3.5-5.0) g/dL Urine Color Colorless Urine Appearance Clear (Clear) Urine pH 6.0 (5.0-8.0) Ur Specific [place] 1.014 (1.001-1.035) Urine Protein Negative (Negative) Urine Glucose (UA) Negative (Negative) Urine Ketones Negative (Negative) Urine Blood Negative (Negative) Urine Nitrite Negative (Negative) Urine Bilirubin Negative (Negative) Urine Urobilinogen <2.0 (<2.0) mg/dL Ur Leukocyte Esterase Negative (Negative) Disposition Clinical Impression: Leucocytosis, Cellulitis Disposition: ADMITTED IP TO THIS HOSP Condition: Undetermined
[2023-08-03] MEDS: MORPHINE SULFATE 4 MG/ML SYRINGE IV PRN (08:31)
--- NOTE | 2023-08-03 10:42 | CT ---
EXAMINATION TYPE: CT lower extremity LT wo con DATE OF EXAM: 08/03/2023 8:44 AM COMPARISON: None. CLINICAL INDICATION:Female, 78 years old with history of medial thigh infection; PHH, left medial thi gh infection TECHNIQUE: Noncontrast CT was obtained of the left lower extremity from above the hip through the daniela t. Axial coronal and sagittal reformatted images, soft tissue and bone window were submitted for rev iew. 3-D reconstruction was created on a separate workstation. Contrast used: None. CT DLP: 1061.4 mGycm, Automated exposure control for dose reduction was used. FINDINGS: Bone: Generalized diminished mineralization. There are superimposed multifocal areas of low attenuation in the distal femur, proximal tibia, and patella, giving a somewhat moth eaten appearance. The mid to di stal tibia and fibula appear thereafter relatively normal, but again about the ankle joint and proxim al foot there are some areas of vague patchy hypoattenuation similar to those of the knee. No clear-c ut destructive mass is seen. Mild degenerative changes of the hip and knee. Mild/moderate degenerativ e changes of the ankle and proximal foot. No acute fractures or dislocations are seen. Soft tissues: There is generalized skin thickening and subcutaneous fat stranding throughout the left lower extremi ty, compatible with edema and cellulitis. No focal fluid collection is identified to suggest abscess. Musculature shows some generalized fatty atrophy. No appreciable soft tissue gas. Mild/moderate scat tered arterial vascular calcifications. Small knee joint effusion. Other: Visualized left hemipelvis appears intact. Mild degenerative changes of the lower lumbar spine and SI joints. Small to moderate sized left inguinal hernia contains a loop of protruding bowel without oscar dence of obstruction. Few colonic diverticula are seen. Bladder appears mildly distended. Uterus is p resent. IMPRESSION: 1. Soft tissue edema and cellulitis throughout the left lower extremity. 2. No focal fluid collection identified. 3. No clear evidence of an acute osseous destructive process. 4. Generalized osseous demineralization, with multiple foci of lower attenuation seen primarily in t he bones about the knee and ankle, of uncertain etiology. This could be reflective of osteoporosis, w ith sequela of infectious process or metastasis less likely considerations. Clinical correlation, wit h bone scan may be considered.
[2023-08-03] MEDS ORDERED: IPRATROPIUM-ALBUTEROL 3 ML NEB INHALATION PRN (12:29)
[2023-08-03] MEDS ORDERED: ALBUTEROL HFA INHALER INHALATION PRN (12:29)
[2023-08-03] MEDS: FAMOTIDINE 20 MG TAB PO SCH (12:51)
[2023-08-03] MEDS: APIXABAN 2.5 MG TABLET PO SCH (13:23)
[2023-08-03] MEDS: FUROSEMIDE 10 MG/ML 4 ML VIAL IV STA (13:23)
--- NOTE | 2023-08-03 13:39 | US ---
EXAMINATION TYPE: US gallbladder DATE OF EXAM: 08/03/2023 COMPARISON: Earlier same day CT abdomen CLINICAL INDICATION: Female, 78 years old with history of elevated bilirubin cholelithiasis vs. sludg e; Back pain per patient. Abnormal CT. TECHNIQUE: Multiple sonographic images of the right upper quadrant are obtained. FINDINGS: Suboptimal due to patient body habitus and bowel gas EXAM MEASUREMENTS: Liver Length: 11.8 cm Gallbladder Wall: 0.3 cm CBD: 0.3 cm Right Kidney: 9.4 x 3.6 x 4.0 cm Pancreas: Tail obscured by overlying bowel gas. Somewhat echogenic in appearance could be related to fat deposition. Pancreatic duct is 0.15 cm Liver: Nodular contour. Gallbladder: Mobile posterior echoes seen Evidence for sonographic Torres's sign: neg CBD: wnl Right Kidney: No hydronephrosis or masses seen IMPRESSION: 1. Suboptimal study. 2. Nodular hepatic contour suggesting cirrhotic morphology. 3. No biliary ductal dilatation. 4. Mobile echogenic material in the posterior gallbladder, appears to be sludge. No ancillary findin gs to suggest acute cholecystitis.
--- NOTE | 2023-08-03 14:29 | P.HPIM ---
History of Present Illness H&P Date: 08/03/23 This is a pleasant 78-year-old female with medical history of asthma, diastolic heart failure, hypertension, heart catheterization, lymphoma. patient is a never smoker. Patient was recently admitted to the hospital for a perforated gastric ulcer where she underwent surgical repair. Patient has been at rehabilitation and states that since discharge she has been having lower back pain. This back pain is worse on the right with radiation over to the left lower back. Has worked up at the ER for a lumbar radiculopathy underwent an abdominal pelvis CT which reveals removal of the previous drainage catheter in the left upper abdomen, improved anasarca of the soft tissues, previous pleural effusions have essentially resolved, mild cardiomegaly, cirrhotic hepatic morphology, cholelithiasis versus sludge with no acute abnormality demonstrated in the limits of this unenhanced exam. Patient was noted to have gallstones or previous admission as well. There is moderate stool throughout the colon. Patient is noted to have an elevated white blood cell count of 25.0 on admission with a hemoglobin of 10.4, platelet count of 136. Her sodium level is 135, BUN of 74, creatinine of 1.59, total bilirubin is elevated at 3.0, AST of 105, ALT of 43 and an alk phos of 244. Her proBNP is elevated at 5000 patient does have significant lower extremity pitting edema which she states has been worsening over the last couple days. Urinalysis is negative. She is denying shortness of breath she is not having any chest pain she is not having any nausea vomiting or diarrhea. No urinary symptoms. Straight leg raise test does not make the lower back pain worse. Her right upper quadrant is significantly tender on manual palpation. She is concerned with her left lower extremity there is an hardened erythematous area on the inner aspect of her left thigh which is tender to touch. A CT of the lower extremity was completed showing a soft tissue edema and cellulitis throughout the left lower extremity. No focal fluid collection identified. There is no clear evidence of an acute osseous obstructive process. There is generalized osseous demineralization with multiple foci of lower attenuation seen primarily in the bones about the knee and the ankle of uncertain etiology. This could be reflective osteoarthritis with sequela of infectious process or metastasis less likely considerations. Clinical correlation with bone scan may be considered. REVIEW OF SYSTEMS: CONSTITUTIONAL: No fever, no malaise, no fatigue. HEENT: No recent visual problems or hearing problems. Denied any sore throat. CARDIOVASCULAR: No chest pain, orthopnea, PND, no palpitations, no syncope. PULMONARY: No shortness of breath, no cough, no hemoptysis. GASTROINTESTINAL: No diarrhea, no nausea, no vomiting, no abdominal pain. NEUROLOGICAL: No headaches, no weakness, no numbness. Reports lower back pain HEMATOLOGICAL: Denies any bleeding or petechiae. GENITOURINARY: Denies any burning micturition, frequency, or urgency. MUSCULOSKELETAL/RHEUMATOLOGICAL: Denies any joint pain, swelling, or any muscle pain. ENDOCRINE: Denies any polyuria or polydipsia. The rest of the 14-point review of systems is negative. PHYSICAL EXAMINATION: GENERAL: The patient is alert and oriented x3, not in any acute distress. Well developed, well nourished. HEENT: Pupils are round and equally reacting to light. EOMI. No scleral icterus. No conjunctival pallor. Normocephalic, atraumatic. No pharyngeal erythema. No thyromegaly. CARDIOVASCULAR: S1 and S2 present. No murmurs, rubs, or gallops. PULMONARY: Chest is clear to auscultation, no wheezing or crackles. ABDOMEN: Soft, RUQ tenderness, nondistended, normoactive bowel sounds. No palpable organomegaly. MUSCULOSKELETAL: No joint swelling or deformity. EXTREMITIES: No cyanosis, clubbing, or pedal edema. NEUROLOGICAL: Gross neurological examination did not reveal any focal deficits. SKIN: No rashes. Assessment and plan Right upper quadrant abdominal pain with transaminitis and hyperbilirubinemia rule out acute cholecystitis General surgery was consulted imaging reveals Colelithiasis versus sludge Recent hospitalization for perforated gastric ulcer status postsurgical repair Lower extremity edema secondary to mild acute diastolic CHF exacerbation proBNP elevated at 5000 will be given IV Lasix every 12 with intake and output monitoring and repeat labs in the morning Left thigh cellulitic changes with concern for sepsis patient has infectious disease consultation in place received a one-time dose of IV cefepime pending further recommendations regarding antibiotic management. 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 Dr. Irwin MD I have performed a history and physical examination and medical decision making of this patient, discussed the same with the dictator, and agree with the dictators assessment and plan as written, documented as a scribe. Based on total visit time, I have performed more than 50% of this visit. 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 History of Any Multi-Drug Resistant Organisms: None Reported Past Surgical History: Heart Catheterization Additional Past Surgical History / Comment(s): EYE SURGERY DUE TO INJURY, EGD, COLONOSCOPY, BONE MARROW BIOPSY, cataracts, muscle biopsy Past Anesthesia/Blood Transfusion Reactions: No Reported Reaction Past Psychological History: No Psychological Hx Reported Smoking Status: Never smoker Past Alcohol Use History: Occasional Past Drug Use History: None Reported - Past Family History Sister(s) Family Medical History: Cancer Additional Family Medical History / Comment(s): LEUKEMIA- at age 42 Brother(s) Family Medical History: Cancer Additional Family Medical History / Comment(s): with unknown type CA at age 60s Medications and Allergies Home Medications Medication Instructions Recorded Confirmed Type Cyanocobalamin (Vitamin B-12) 1,000 mcg PO DAILY 12/30/20 08/03/23 History [Vitamin B-12] Vit C/E/Zn/Coppr/Lutein/Zeaxan 1 cap PO BID 12/30/20 08/03/23 History [Preservision Areds 2 Softgel] Cholecalciferol (Vitamin D3) 125 mcg PO DAILY 04/25/21 08/03/23 History [Vitamin D3 (125 MCG = 5,000 IU)] Magnesium Oxide [Mag-Ox] 400 mg PO HS 02/04/23 08/03/23 History Folic Acid 1 mg PO DAILY 06/08/23 08/03/23 History Potassium Gluconate 99 mg PO DAILY 06/08/23 08/03/23 History Metoprolol Tartrate [Lopressor] 25 mg PO BID 30 Days #60 tablet 06/12/23 08/03/23 Rx Albuterol Sulfate [Ventolin HFA] 1 - 2 puff INHALATION RT-Q4H PRN 08/03/23 08/03/23 History Apixaban [Eliquis] 2.5 mg PO BID 08/03/23 08/03/23 History Famotidine [Pepcid] 20 mg PO BID 08/03/23 08/03/23 History Ferrous Sulfate [Feosol] 325 mg PO DAILY 08/03/23 08/03/23 History Ipratropium-Albuterol Nebulize 3 ml INHALATION RT-QID PRN 08/03/23 08/03/23 History [Duoneb 0.5 mg-3 mg/3 ml Soln] Torsemide [Demadex] 20 mg PO DAILY 08/03/23 08/03/23 History Allergies Allergy/AdvReac Type Severity Reaction Status Date / Time omeprazole [From Prilosec] Allergy Unknown Rash/Hives, Verified 08/03/23 00:43 TONGUE SWELLLING omeprazole magnesium Allergy Unknown Rash/Hives, Verified 08/03/23 00:43 [From Prilosec] TONGUE SWELLLING Penicillins Allergy Unknown Rash/Hives/ Verified 08/03/23 00:43 Itching amlodipine Allergy fide pedal Verified 08/03/23 00:43 edema, loss voice carvedilol Allergy shortness Verified 08/03/23 00:43 of breath lisinopril Allergy Unknown Verified 08/03/23 00:43 Physical Exam Vitals: Vital Signs Temp Pulse Resp BP Pulse Ox 08/03/23 08:33 82 17 157/52 100 08/03/23 07:30 97.3 F L 60 17 158/72 100 08/03/23 06:00 57 L 18 131/60 08/03/23 05:19 80 18 121/66 08/03/23 03:49 60 19 127/64 08/03/23 01:51 78 16 125/52 96 08/03/23 00:35 98.8 F 70 17 141/66 95 Intake and Output 08/02/23 08/03/23 08/03/23 22:59 06:59 14:59 Other: Weight 74.843 kg Results CBC & Chem 7: 08/03/23 00:49 08/03/23 00:49 Labs: Abnormal Lab Results - Last 24 Hours (Table) 08/03/23 08/03/23 Range/Units 00:49 00:49 WBC 25.0 H (3.8-10.6) k/uL RBC 2.96 L (3.80-5.40) m/uL Hgb 10.4 L (11.4-16.0) gm/dL Hct 31.9 L (34.0-46.0) % MCV 108.0 H (80.0-100.0) fL MCH 35.2 H (25.0-35.0) pg RDW 16.3 H (11.5-15.5) % Plt Count 136 L D (150-450) k/uL Neutrophils # 21.9 H (1.3-7.7) k/uL Macrocytosis Marked A Sodium 135 L (137-145) mmol/L BUN 74 H (7-17) mg/dL Creatinine 1.59 H (0.52-1.04) mg/dL Glucose 108 H (74-99) mg/dL Total Bilirubin 3.0 H (0.2-1.3) mg/dL AST 105 H (14-36) U/L ALT 43 H (4-34) U/L Alkaline Phosphatase 244 H (38-126) U/L Albumin 2.9 L (3.5-5.0) g/dL Assessment and Plan Time with Patient: Greater than 30
[2023-08-03] MEDS ORDERED: FAMOTIDINE 20 MG TAB PO SCH (21:00)
[2023-08-03] MEDS ORDERED: METOPROLOL TARTRATE 25 MG TAB PO SCH (21:00)
[2023-08-03] MEDS: MAGNESIUM OXIDE 400 MG TAB PO SCH (21:18)
[2023-08-03] MEDS: METOPROLOL TARTRATE 25 MG TAB PO SCH (21:18)
[2023-08-03] MEDS: FUROSEMIDE 10 MG/ML 4 ML VIAL IV SCH (21:19)
--- NOTE | 2023-08-03 23:21 | P.CONS ---
History of Present Illness - Reason for Consult Consult date: 08/03/23 - History of Present Illness Patient is a 78-year-old female with a past medical history significant for hypertension heart failure asthma heart failure lymphoma recently admitted to this facility for perforated gastric ulcer status post surgical repair patient has not been brought back to the hospital complaining of severe lower back pain patient denies any history of any trauma or any fall also noticed to have increasing swelling and redness to the left lower extremity which apparently has been going on for the last few days patient pain to the lower extremities mostly dull aching moderate intensity without any radiation with associated swelling and redness and mention some clear drainage from the lower extremity patient on presentation to the hospital was afebrile and no fever have recorded subsequently patient was nontachycardic hypertensive or hypoxic patient did have white count of 25,000 BUN/creatinine has been mildly elevated liver isms are elevated urine was negative patient did have a abdominal pelvis CT improved anasarca of the soft tissue mild cardiomegaly cholelithiasis versus sludge no acute abnormality I did not show any abnormality to the musculoskeletal structures moderate is degenerative changes throughout the thoracolumbar spine patient also have lower extremity CT did not show any abscess and gallbladder ultrasound did not show any bleed or dilatation echogenic material in the posterior gallbladder appears to be sludge patient has been admitted to the hospital infectious disease was consulted regarding elevated white count Past Medical History Past Medical History: Asthma, Heart Failure, Eye Disorder, Hypertension, Musculoskeletal Disorder, Osteoarthritis (OA) Additional Past Medical History / Comment(s): ENVIRONMENTAL ALLERGIES, BACK STENOSIS, 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 History of Any Multi-Drug Resistant Organisms: None Reported Past Surgical History: Heart Catheterization Additional Past Surgical History / Comment(s): EYE SURGERY DUE TO INJURY, EGD, COLONOSCOPY, BONE MARROW BIOPSY, cataracts, muscle biopsy Past Anesthesia/Blood Transfusion Reactions: No Reported Reaction Past Psychological History: No Psychological Hx Reported Smoking Status: Never smoker Past Alcohol Use History: Occasional Past Drug Use History: None Reported - Past Family History Sister(s) Family Medical History: Cancer Additional Family Medical History / Comment(s): LEUKEMIA- at age 42 Brother(s) Family Medical History: Cancer Additional Family Medical History / Comment(s): with unknown type CA at age 60s Medications and Allergies Home Medications Medication Instructions Recorded Confirmed Type Cyanocobalamin (Vitamin B-12) 1,000 mcg PO DAILY 12/30/20 08/03/23 History [Vitamin B-12] Vit C/E/Zn/Coppr/Lutein/Zeaxan 1 cap PO BID 12/30/20 08/03/23 History [Preservision Areds 2 Softgel] Cholecalciferol (Vitamin D3) 125 mcg PO DAILY 04/25/21 08/03/23 History [Vitamin D3 (125 MCG = 5,000 IU)] Magnesium Oxide [Mag-Ox] 400 mg PO HS 02/04/23 08/03/23 History Folic Acid 1 mg PO DAILY 06/08/23 08/03/23 History Potassium Gluconate 99 mg PO DAILY 06/08/23 08/03/23 History Metoprolol Tartrate [Lopressor] 25 mg PO BID 30 Days #60 tablet 06/12/23 08/03/23 Rx Albuterol Sulfate [Ventolin HFA] 1 - 2 puff INHALATION RT-Q4H PRN 08/03/23 08/03/23 History Apixaban [Eliquis] 2.5 mg PO BID 08/03/23 08/03/23 History Famotidine [Pepcid] 20 mg PO BID 08/03/23 08/03/23 History Ferrous Sulfate [Feosol] 325 mg PO DAILY 08/03/23 08/03/23 History Ipratropium-Albuterol Nebulize 3 ml INHALATION RT-QID PRN 08/03/23 08/03/23 History [Duoneb 0.5 mg-3 mg/3 ml Soln] Torsemide [Demadex] 20 mg PO DAILY 08/03/23 08/03/23 History Allergies Allergy/AdvReac Type Severity Reaction Status Date / Time omeprazole [From Prilosec] Allergy Unknown Rash/Hives, Verified 08/03/23 00:43 TONGUE SWELLLING omeprazole magnesium Allergy Unknown Rash/Hives, Verified 08/03/23 00:43 [From Prilosec] TONGUE SWELLLING Penicillins Allergy Unknown Rash/Hives/ Verified 08/03/23 00:43 Itching amlodipine Allergy fide pedal Verified 08/03/23 00:43 edema, loss voice carvedilol Allergy shortness Verified 08/03/23 00:43 of breath lisinopril Allergy Unknown Verified 08/03/23 00:43 Physical Exam Vitals: Vital Signs Temp Pulse Pulse Resp BP BP Pulse Ox 08/03/23 09:21 97.9 F 87 16 182/68 99 08/03/23 08:33 82 17 157/52 100 08/03/23 07:30 97.3 F L 60 17 158/72 100 08/03/23 06:00 57 L 18 131/60 08/03/23 05:19 80 18 121/66 08/03/23 03:49 60 19 127/64 08/03/23 01:51 78 16 125/52 96 08/03/23 00:35 98.8 F 70 17 141/66 95 Intake and Output 08/02/23 08/03/23 08/03/23 22:59 06:59 14:59 Other: Weight 74.843 kg 74.843 kg Results CBC & Chem 7: 08/03/23 00:49 08/03/23 00:49 Labs: Abnormal Lab Results - Last 24 Hours (Table) 08/03/23 08/03/23 Range/Units 00:49 00:49 WBC 25.0 H (3.8-10.6) k/uL RBC 2.96 L (3.80-5.40) m/uL Hgb 10.4 L (11.4-16.0) gm/dL Hct 31.9 L (34.0-46.0) % MCV 108.0 H (80.0-100.0) fL MCH 35.2 H (25.0-35.0) pg RDW 16.3 H (11.5-15.5) % Plt Count 136 L D (150-450) k/uL Neutrophils # 21.9 H (1.3-7.7) k/uL Macrocytosis Marked A Sodium 135 L (137-145) mmol/L BUN 74 H (7-17) mg/dL Creatinine 1.59 H (0.52-1.04) mg/dL Glucose 108 H (74-99) mg/dL Total Bilirubin 3.0 H (0.2-1.3) mg/dL AST 105 H (14-36) U/L ALT 43 H (4-34) U/L Alkaline Phosphatase 244 H (38-126) U/L Albumin 2.9 L (3.5-5.0) g/dL Assessment and Plan Plan: 1-Patient presented to hospital with multiple symptoms including increasing swelling to the left lower extremity in this patient who did have some redness and hard area to the left medial thigh however CT did not show any evidence of abscess 2-patient also have elevated liver enzymes however CT as well as ultrasound did not show any evidence of gallbladder stone or dilated CBD 3-penicillin allergy that will limit the number of antibiotics safe to use 4-we will suggest cefepime 2 g every 8 hours that should cover for both the left lower extremity cellulitis and an intra-abdominal process related to elevated liver enzymes with a question of possible cholangitis Multiple question concern answered We will follow on clinical condition and cultures to further adjust medication if needed Thank you for this consultation we will follow the patient along with you Dictation was produced using [employer] dictation software. please excuse any grammatical, word or spelling errors. Time with Patient: Greater than 30
[2023-08-03] MEDS: CEFEPIME 2 GM in SODIUM CHLORIDE 0.9% 100 ML IVPB SCH (23:47)
[2023-08-04] MEDS: CHOLECALCIFEROL 125 MCG (5000 IU) TABLET PO SCH (08:48)
[2023-08-04] MEDS: CYANOCOBALAMIN 500 MCG TAB PO SCH (08:48)
[2023-08-04] MEDS: FERROUS SULFATE 325 MG TAB PO SCH (08:48)
[2023-08-04] MEDS: CEFEPIME 1 GM in SODIUM CHLORIDE 0.9% 50 ML IVPB SCH (08:49)
[2023-08-04] MEDS: FOLIC ACID 1 MG TAB PO SCH (08:49)
[2023-08-04] MEDS: FAMOTIDINE 20 MG TAB PO SCH (08:49)
[2023-08-04] MEDS ORDERED: TORSEMIDE 20 MG TAB PO SCH (09:00)
[2023-08-04 10:11] LABS: HCT 29.9 % (37.2-46.3); HGB 9.7 g/dL (12.0-15.0); MCH 34.9 pg (27.0-32.0); MCHC 32.4 g/dL (32.0-37.0); MCV 107.6 FL (80.0-97.0); Mean Platelet Volume 10.1 FL (9.5-12.2); NRBC Per 100 WBC 0 X 10*3/uL (0.00-0.01); Platelet Count 118 X 10*3/uL (140-440); RBC 2.78 X 10*6/uL (4.10-5.20); WBC 21.79 X 10*3/uL (4.50-10.00)
--- NOTE | 2023-08-04 10:43 | P.GSCN ---
History of Present Illness Consult date: 08/04/23 Reason for Consult: Right upper quadrant pain radiating to back History of present illness: This 78-year-old female who had epigastric port and pain which radiated to her back. 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 History of Any Multi-Drug Resistant Organisms: None Reported Past Surgical History: Heart Catheterization Additional Past Surgical History / Comment(s): EYE SURGERY DUE TO INJURY, EGD, COLONOSCOPY, BONE MARROW BIOPSY, cataracts, muscle biopsy Past Anesthesia/Blood Transfusion Reactions: No Reported Reaction Past Psychological History: No Psychological Hx Reported Smoking Status: Never smoker Past Alcohol Use History: Occasional Past Drug Use History: None Reported - Past Family History Sister(s) Family Medical History: Cancer Additional Family Medical History / Comment(s): LEUKEMIA- at age 42 Brother(s) Family Medical History: Cancer Additional Family Medical History / Comment(s): with unknown type CA at age 60s Medications and Allergies Home Medications Medication Instructions Recorded Confirmed Type Cyanocobalamin (Vitamin B-12) 1,000 mcg PO DAILY 12/30/20 08/03/23 History [Vitamin B-12] Vit C/E/Zn/Coppr/Lutein/Zeaxan 1 cap PO BID 12/30/20 08/03/23 History [Preservision Areds 2 Softgel] Cholecalciferol (Vitamin D3) 125 mcg PO DAILY 04/25/21 08/03/23 History [Vitamin D3 (125 MCG = 5,000 IU)] Magnesium Oxide [Mag-Ox] 400 mg PO HS 02/04/23 08/03/23 History Folic Acid 1 mg PO DAILY 06/08/23 08/03/23 History Potassium Gluconate 99 mg PO DAILY 06/08/23 08/03/23 History Metoprolol Tartrate [Lopressor] 25 mg PO BID 30 Days #60 tablet 06/12/23 08/03/23 Rx Albuterol Sulfate [Ventolin HFA] 1 - 2 puff INHALATION RT-Q4H PRN 08/03/23 08/03/23 History Apixaban [Eliquis] 2.5 mg PO BID 08/03/23 08/03/23 History Famotidine [Pepcid] 20 mg PO BID 08/03/23 08/03/23 History Ferrous Sulfate [Feosol] 325 mg PO DAILY 08/03/23 08/03/23 History Ipratropium-Albuterol Nebulize 3 ml INHALATION RT-QID PRN 08/03/23 08/03/23 History [Duoneb 0.5 mg-3 mg/3 ml Soln] Torsemide [Demadex] 20 mg PO DAILY 08/03/23 08/03/23 History Allergies Allergy/AdvReac Type Severity Reaction Status Date / Time omeprazole [From Prilosec] Allergy Unknown Rash/Hives, Verified 08/03/23 00:43 TONGUE SWELLLING omeprazole magnesium Allergy Unknown Rash/Hives, Verified 08/03/23 00:43 [From Prilosec] TONGUE SWELLLING Penicillins Allergy Unknown Rash/Hives/ Verified 08/03/23 00:43 Itching amlodipine Allergy fide pedal Verified 08/03/23 00:43 edema, loss voice carvedilol Allergy shortness Verified 08/03/23 00:43 of breath lisinopril Allergy Unknown Verified 08/03/23 00:43 Surgical - Exam Vital Signs Temp Pulse Resp BP Pulse Ox 98.8 F 70 17 141/66 95 08/03/23 00:35 08/03/23 00:35 08/03/23 00:35 08/03/23 00:35 08/03/23 00:35 - General well developed, well nourished - Eyes PERRL - ENT normal pinna - Neck no masses - Respiratory normal expansion - Abdomen Mild tenderness right upper quadrant Abdomen: soft Results - Labs 08/04/23 03:59 08/03/23 00:49 Abnormal Lab Results - Last 24 Hours (Table) 08/04/23 Range/Units 03:59 WBC 21.79 H (4.50-10.00) X 10*3/uL RBC 2.78 L (4.10-5.20) X 10*6/uL Hgb 9.7 L (12.0-15.0) g/dL Hct 29.9 L (37.2-46.3) % MCV 107.6 H (80.0-97.0) FL MCH 34.9 H (27.0-32.0) pg RDW 17.0 H (11.5-14.5) % Plt Count 118 L (140-440) X 10*3/uL - Imaging US - abdomen: report reviewed (Cholelithiasis) Assessment and Plan Assessment: Lithiasis with cholecystitis. Patient will have her liver enzymes rechecked. We will plan a laparoscopic cholecystectomy in the a.m.
[2023-08-04 10:55] LABS: Magnesium 2.3 mg/dL (1.5-2.4)
[2023-08-04 11:31] LABS: Basophils # (A) 0.07 X 10*3/uL (0.00-0.10); Basophils % (A) 0.3 %; Eosinophils # (A) 1.09 X 10*3/uL (0.04-0.35); Lymphocytes # (A) 2.84 X 10*3/uL (0.90-5.00); Monocytes # (A) 1.87 X 10*3/uL (0.20-1.00); Monocytes % (A) 8.6 %; Neutrophils # (A) 15.78 X 10*3/uL (1.80-7.70); Neutrophils % (A) 72.5 %
[2023-08-04 11:32] LABS: Macrocytosis (M) 2+
[2023-08-04 12:19] LABS: ALT 36 U/L (8-44); AST 71 U/L (13-35); Albumin 2.6 g/dL (3.8-4.9); Alkaline Phosphatase 204 U/L (41-126); Blood Urea Nitrogen 61.2 mg/dL (9.0-27.0); Calcium 8.2 mg/dL (8.7-10.3); Carbon Dioxide 20.5 mmol/L (21.6-31.8); Chloride 103 mmol/L (96-109); Globulin 3.7 g/dL (1.6-3.3); Glucose 97 mg/dL (70-110); Potassium 4.4 mmol/L (3.5-5.5); Sodium 134 mmol/L (135-145); Total Bilirubin 1.6 mg/dL (0.3-1.2); Total Protein 6.3 g/dL (6.2-8.2)
--- NOTE | 2023-08-04 13:40 | P.CRDCN ---
History of Present Illness Consult date: 08/04/23 History of present illness: History of Present Illness: The patient is an 78-year-old female who is seen for preoperative valuation prior to cholecystectomy. She has a known history of heart failure, bronchial asthma, hypertension. She has been followed by Dr. Gonzalez on a regular basis. She underwent cardiac catheterization in 2020 and had mild obstructive CAD. She presents with back discomfort as well is worsening peripheral edema, her NT proBNP was elevated. She denies any chest discomfort, dizziness or palpitations. She had some nausea but no abdominal pain. She denies any significant PND or orthopnea. She is limited in her physical activity and has dyspnea on exertion. She has a history of hypertension and a history of paroxysmal atrial fibrillation and has been anticoagulated. Her abdominal CT scan showed cholelithiasis versus large with resolution of her pleural effusion, her gallbladder ultrasound was suboptimal with a mobile echogenic material in the posterior gallbladder suggestive of sludge but no evidence to suggest acute cholecystitis. On presentation she had evidence to suggest possible cellulitis of the lower extremities. Medications: Eliquis 2.5 mg twice a day, torsemide 20 mg daily, metoprolol tartrate 25 mg twice a day, iron, Ventolin. She was started on IV Lasix following admission. She has been on cefepime for her infection. Review of Systems: Respiratory: She has dyspnea on exertion but no recent cough GI: She had 1 episode of nausea yesterday but no abdominal pain. No history of peptic ulcer disease. No recent GI bleed. : No hematuria or dysuria. Nervous System: No stroke or seizure. She is complaining of arthritic back pain Physical Examination: 78-year-old female, alert oriented no apparent distress, obese,Blood pressure 128/60, Heart rate 70 Head: Normocephalic. Eyes: Sclerae nonicteric. Neck: Good carotid upstroke, no bruit, no jugular venous distention. Lungs: Clear to auscultation. Heart: Regular rate and rhythm, S1-S2, no S3, no rub. Systolic ejection murmur Abdomen: Soft nontender, positive bowel sounds no organomegaly. Extremities: +2 edema, intact distal pulses. Sky wrap in place Labs: WBC 25,000 on admission with a hemoglobin of 10.4. BUN and creatinine 74 and 1.59, today 61 and 1.7. NT proBNP 5000. AST 71, ALT 36. Bilirubin 3.0 and subsequently 1.6. The patient has chronic bilirubin elevation. And her LFTs have been elevated on all her admissions. EKG: Pending Impression: 1. Evidence of fluid overload with congestive heart failure and preserved systolic function 2. Gallbladder sludge being evaluated for cholecystectomy 3. Back discomfort 4. Chronic kidney disease 5. Paroxysmal atrial fibrillation 6. Possible cellulitis Plan: 1. Hold surgery for now because of the recent CHF 2. Add Farxiga 3. Follow renal functions 4. Obtain a limited echo 5. Follow NT proBNP 6. Depending on her progress further recommendations will be made, will hold Eliquis for now until the decision regarding the timing of surgery to be made. 7. Thank you for this consult we will follow with you. 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 History of Any Multi-Drug Resistant Organisms: None Reported Past Surgical History: Heart Catheterization Additional Past Surgical History / Comment(s): EYE SURGERY DUE TO INJURY, EGD, COLONOSCOPY, BONE MARROW BIOPSY, cataracts, muscle biopsy Past Anesthesia/Blood Transfusion Reactions: No Reported Reaction Past Psychological History: No Psychological Hx Reported Smoking Status: Never smoker Past Alcohol Use History: Occasional Past Drug Use History: None Reported - Past Family History Sister(s) Family Medical History: Cancer Additional Family Medical History / Comment(s): LEUKEMIA- at age 42 Brother(s) Family Medical History: Cancer Additional Family Medical History / Comment(s): with unknown type CA at age 60s Medications and Allergies Home Medications Medication Instructions Recorded Confirmed Type Cyanocobalamin (Vitamin B-12) 1,000 mcg PO DAILY 12/30/20 08/03/23 History [Vitamin B-12] Vit C/E/Zn/Coppr/Lutein/Zeaxan 1 cap PO BID 12/30/20 08/03/23 History [Preservision Areds 2 Softgel] Cholecalciferol (Vitamin D3) 125 mcg PO DAILY 04/25/21 08/03/23 History [Vitamin D3 (125 MCG = 5,000 IU)] Magnesium Oxide [Mag-Ox] 400 mg PO HS 02/04/23 08/03/23 History Folic Acid 1 mg PO DAILY 06/08/23 08/03/23 History Potassium Gluconate 99 mg PO DAILY 06/08/23 08/03/23 History Metoprolol Tartrate [Lopressor] 25 mg PO BID 30 Days #60 tablet 06/12/23 08/03/23 Rx Albuterol Sulfate [Ventolin HFA] 1 - 2 puff INHALATION RT-Q4H PRN 08/03/23 08/03/23 History Apixaban [Eliquis] 2.5 mg PO BID 08/03/23 08/03/23 History Famotidine [Pepcid] 20 mg PO BID 08/03/23 08/03/23 History Ferrous Sulfate [Feosol] 325 mg PO DAILY 08/03/23 08/03/23 History Ipratropium-Albuterol Nebulize 3 ml INHALATION RT-QID PRN 08/03/23 08/03/23 History [Duoneb 0.5 mg-3 mg/3 ml Soln] Torsemide [Demadex] 20 mg PO DAILY 08/03/23 08/03/23 History Allergies Allergy/AdvReac Type Severity Reaction Status Date / Time omeprazole [From Prilosec] Allergy Unknown Rash/Hives, Verified 08/03/23 00:43 TONGUE SWELLLING omeprazole magnesium Allergy Unknown Rash/Hives, Verified 08/03/23 00:43 [From Prilosec] TONGUE SWELLLING Penicillins Allergy Unknown Rash/Hives/ Verified 08/03/23 00:43 Itching amlodipine Allergy fide pedal Verified 08/03/23 00:43 edema, loss voice carvedilol Allergy shortness Verified 08/03/23 00:43 of breath lisinopril Allergy Unknown Verified 08/03/23 00:43 Physical Exam Vitals: Vital Signs Temp Pulse Resp BP Pulse Ox 08/04/23 08:50 72 16 08/04/23 07:27 97.6 F 78 18 128/63 97 08/04/23 02:00 97.6 F 72 16 117/67 91 L 08/03/23 19:52 97.8 F 83 16 124/67 100 08/03/23 14:35 97.9 F 96 16 143/56 96 Intake and Output 08/03/23 08/04/23 08/04/23 22:59 06:59 14:59 Output Total 500 1200 Balance -500 -1200 Output: Urine 500 1200 Other: Voiding Method External Catheter External Catheter Results 08/04/23 03:59 08/04/23 03:59 Cardiac Enzymes 08/04/23 Range/Units 03:59 AST 71 H (13-35) U/L CBC 08/04/23 Range/Units 03:59 WBC 21.79 H (4.50-10.00) X 10*3/uL RBC 2.78 L (4.10-5.20) X 10*6/uL Hgb 9.7 L (12.0-15.0) g/dL Hct 29.9 L (37.2-46.3) % Plt Count 118 L (140-440) X 10*3/uL Comprehensive Metabolic Panel 08/04/23 Range/Units 03:59 Sodium 134 L (135-145) mmol/L Potassium 4.4 (3.5-5.5) mmol/L Chloride 103 (96-109) mmol/L Carbon Dioxide 20.5 L (21.6-31.8) mmol/L BUN 61.2 H (9.0-27.0) mg/dL Creatinine 1.7 H (0.6-1.5) mg/dL Glucose 97 (70-110) mg/dL Calcium 8.2 L (8.7-10.3) mg/dL AST 71 H (13-35) U/L ALT 36 (8-44) U/L Alkaline Phosphatase 204 H (41-126) U/L Total Protein 6.3 (6.2-8.2) g/dL Albumin 2.6 L (3.8-4.9) g/dL Current Medications Generic Name Dose Route Start Last Admin Trade Name Freq PRN Reason Stop Dose Admin Acetaminophen 650 mg 08/03/23 07:49 Acetaminophen Tab 325 Mg Tab PO Q6HR PRN Mild Pain or Fever > 100.5 Albuterol/Ipratropium 3 ml 08/03/23 12:29 Ipratropium-Albuterol 3 Ml Neb INHALATION RT-QID PRN Shortness Of Breath Apixaban 2.5 mg 08/03/23 13:00 08/04/23 08:48 Apixaban 2.5 Mg Tablet PO 2.5 mg BID MEÑO Administration Protocol Cholecalciferol 125 mcg 08/04/23 09:00 08/04/23 08:48 Cholecalciferol 125 Mcg (5000 Iu) Tablet PO 125 mcg DAILY MEÑO Administration Cyanocobalamin 1,000 mcg 08/04/23 09:00 08/04/23 08:48 Cyanocobalamin 500 Mcg Tab PO 1,000 mcg DAILY MEÑO Administration Famotidine 20 mg 08/04/23 09:00 08/04/23 08:49 Famotidine 20 Mg Tab PO 20 mg DAILY MEÑO Administration Ferrous Sulfate 325 mg 08/04/23 09:00 08/04/23 08:48 Ferrous Sulfate 325 Mg Tab PO 325 mg DAILY MEÑO Administration Folic Acid 1 mg 08/04/23 09:00 08/04/23 08:49 Folic Acid 1 Mg Tab PO 1 mg DAILY MEÑO Administration Furosemide 40 mg 08/03/23 21:00 08/04/23 08:48 Furosemide 10 Mg/Ml 4 Ml Vial IV 40 mg Q12HR MEÑO Administration Cefepime HCl 1 gm/ Sodium 50 mls @ 12.5 mls/hr 08/04/23 09:00 08/04/23 08:49 Chloride IVPB 12.5 mls/hr Q12HR MEÑO Administration Magnesium Oxide 400 mg 08/03/23 21:00 08/03/23 21:18 Magnesium Oxide 400 Mg Tab PO 400 mg HS [facility] Administration Metoprolol Tartrate 25 mg 08/03/23 21:00 08/04/23 08:48 Metoprolol Tartrate 25 Mg Tab PO 25 mg BID MEÑO Administration Morphine Sulfate 4 mg 08/03/23 07:49 08/04/23 12:16 Morphine Sulfate 4 Mg/Ml Syringe IV 4 mg Q4HR PRN Administration Severe Pain (Scale 7 to 10) Naloxone HCl 0.2 mg 08/03/23 07:41 Naloxone 0.4 Mg/Ml 1 Ml Vial IV Q2M PRN Opioid Reversal Ondansetron HCl 4 mg 08/03/23 07:49 Ondansetron 4 Mg/2 Ml Vial IVP Q8HR PRN Nausea And Vomiting Intake and Output 08/03/23 08/04/23 08/04/23 22:59 06:59 14:59 Output Total 500 1200 Balance -500 -1200 Output: Urine 500 1200 Other: Voiding Method External Catheter External Catheter 08/04/23 03:59 03/17/24 03:59
[2023-08-04] MEDS: DAPAGLIFLOZIN PROPANEDIOL 10 MG TABLET PO SCH (14:07)
--- NOTE | 2023-08-04 14:19 | P.PN ---
Subjective Progress Note Date: 08/04/23 This is a pleasant 78-year-old female with medical history of asthma, diastolic heart failure, hypertension, heart catheterization, lymphoma. patient is a never smoker. Patient was recently admitted to the hospital for a perforated gastric ulcer where she underwent surgical repair. Patient has been at rehabilitation and states that since discharge she has been having lower back pain. This back pain is worse on the right with radiation over to the left lower back. Has worked up at the ER for a lumbar radiculopathy underwent an abdominal pelvis CT which reveals removal of the previous drainage catheter in the left upper abdomen, improved anasarca of the soft tissues, previous pleural effusions have essentially resolved, mild cardiomegaly, cirrhotic hepatic morphology, cholelithiasis versus sludge with no acute abnormality demonstrated in the limits of this unenhanced exam. Patient was noted to have gallstones or previous admission as well. There is moderate stool throughout the colon. Valentin mendez is noted to have an elevated white blood cell count of 25.0 on admission with a hemoglobin of 10.4, platelet count of 136. Her sodium level is 135, BUN of 74, creatinine of 1.59, total bilirubin is elevated at 3.0, AST of 105, ALT of 43 and an alk phos of 244. Her proBNP is elevated at 5000 patient does have significant lower extremity pitting edema which she states has been worsening over the last couple days. Urinalysis is negative. She is denying shortness of breath she is not having any chest pain she is not having any nausea vomiting or diarrhea. No urinary symptoms. Straight leg raise test does not make the lower back pain worse. Her right upper quadrant is significantly tender on manual palpation. She is concerned with her left lower extremity there is an hardened erythematous area on the inner aspect of her left thigh which is tender to touch. A CT of the lower extremity was completed showing a soft tissue edema and cellulitis throughout the left lower extremity. No focal fluid collection identified. There is no clear evidence of an acute osseous obstructive process. There is generalized osseous demineralization with multiple foci of lower attenuation seen primarily in the bones about the knee and the ankle of uncertain etiology. This could be reflective osteoarthritis with sequela of infectious process or metastasis less likely considerations. Clinical correlation with bone scan may be considered. Patient evaluated today in follow up; reports continued right flank pain. General surgery has evaluated the patient and recommended patient to undergo laproscopic cholecystectomy. Patient does state that she is also scheduled to undergo an EGD next month with Dr. Mariama Dawson for follow up for the perforated gastric ulcer. Patients lower extremity edema is improving and she continues with bilateral JACKIE wrap. Continues on IV lasix 40 mg q12. Patient has had negative 1.7 L of urine output overnight. Bilirubin and LFTs are improving. BUN 61.2 and creatinine of 1.7 today. WBC 21.79. Review of Systems Constitutional: Denied any fatigue denied any fever. Cardio vascular: denied any chest pain, palpitations Gastrointestinal: denied any nausea, vomiting, diarrhea Pulmonary: Denied any shortness of breath cough Neurologic denied any new focal deficits All inpatient medications were reviewed and appropriate changes in these medications as dictated in the interval history and assessment and plan. PHYSICAL EXAMINATION: GENERAL: The patient is alert and oriented x3, not in any acute distress. Well developed, well nourished. HEENT: Pupils are round and equally reacting to light. EOMI. No scleral icterus. No conjunctival pallor. Normocephalic, atraumatic. No pharyngeal erythema. No thyromegaly. CARDIOVASCULAR: S1 and S2 present. No murmurs, rubs, or gallops. PULMONARY: Chest is clear to auscultation, no wheezing or crackles. ABDOMEN: Soft, RUQ tenderness, nondistended, normoactive bowel sounds. No palpable organomegaly. MUSCULOSKELETAL: No joint swelling or deformity. EXTREMITIES: No cyanosis, clubbing, or pedal edema. NEUROLOGICAL: Gross neurological examination did not reveal any focal deficits. SKIN: No rashes. Assessment and plan Right upper quadrant abdominal pain with transaminitis and hyperbilirubinemia no evidence for biliary dilation, bilirubin and LFTs are improving. Patient has right sided flank pain and may have passed a gallstone. Gallbladder sludge with recommendations for laproscopic cholecystectomy, cardiology recommending to hold off surgery for now Recent hospitalization for perforated gastric ulcer status postsurgical repair Lower extremity edema secondary to mild acute diastolic CHF exacerbation proBNP elevated at 5000 will be given IV Lasix every 12 with intake and output monitori ng and repeat labs in the morning Left thigh cellulitic changes with concern for sepsis remains on IV cefepime; ID following. White count slightly improved and will repeat labs in the AM. History of paroxysmal atrial fibrillation anticoag with Eliquis which is now held for possible surgery. 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 Dr. Irwin MD I have performed a history and physical examination and medical decision making of this patient, discussed the same with the dictator, and agree with the dictators assessment and plan as written, documented as a scribe. Based on total visit time, I have performed more than 50% of this visit. Objective - Vital Signs Vital signs: Vital Signs Temp 97.6 F 08/04/23 07:27 Pulse 72 08/04/23 08:50 Resp 16 08/04/23 08:50 BP 128/63 08/04/23 07:27 Pulse Ox 97 08/04/23 07:27 FiO2 Intake & Output 08/03/23 08/04/23 08/04/23 18:59 06:59 18:59 Output Total 500 1200 Balance -500 -1200 Weight 74.843 kg Output: Urine 500 1200 Other: Voiding Method External Catheter External Catheter - Labs CBC & Chem 7: 08/04/23 03:59 08/04/23 03:59 Labs: Abnormal Lab Results - Last 24 Hours (Table) 08/04/23 08/04/23 Range/Units 03:59 03:59 WBC 21.79 H (4.50-10.00) X 10*3/uL RBC 2.78 L (4.10-5.20) X 10*6/uL Hgb 9.7 L (12.0-15.0) g/dL Hct 29.9 L (37.2-46.3) % MCV 107.6 H (80.0-97.0) FL MCH 34.9 H (27.0-32.0) pg RDW 17.0 H (11.5-14.5) % Plt Count 118 L (140-440) X 10*3/uL Immature Gran # 0.14 H (0.00-0.04) X 10*3/uL Neutrophils # 15.78 H (1.80-7.70) X 10*3/uL Monocytes # 1.87 H (0.20-1.00) X 10*3/uL Eosinophils # 1.09 H (0.04-0.35) X 10*3/uL Macrocytosis (manual) 2+ A Sodium 134 L (135-145) mmol/L Carbon Dioxide 20.5 L (21.6-31.8) mmol/L BUN 61.2 H (9.0-27.0) mg/dL Creatinine 1.7 H (0.6-1.5) mg/dL Est GFR (CKD-EPI) 30 L (>=60) BUN/Creatinine Ratio 36.00 H (12.00-20.00) Ratio Calcium 8.2 L (8.7-10.3) mg/dL Total Bilirubin 1.6 H (0.3-1.2) mg/dL AST 71 H (13-35) U/L Alkaline Phosphatase 204 H (41-126) U/L Albumin 2.6 L (3.8-4.9) g/dL Globulin 3.7 H (1.6-3.3) g/dL Albumin/Globulin Ratio 0.70 L (1.60-3.17) Ratio Microbiology - Last 24 Hours (Table) 08/03/23 03:30 Blood Culture - Preliminary Blood Assessment and Plan Time with Patient: Less than 30
--- NOTE | 2023-08-04 15:33 | P.PN ---
Subjective Progress Note Date: 08/04/23 Principal diagnosis: Reason for follow-up is left thigh and leg cellulitis Patient is a 78-year-old female with a past medical history significant for hypertension heart failure asthma heart failure lymphoma, presenting to the hospital with increasing swelling and redness to left lower extremity has been diagnosed with the cellulitis. On today's evaluation that is 08/04/2023, the patient continues to be afebrile, the patient is on room air and breathing comfortably, the Pt denies having any chest pain or cough, the patient denies having any abdominal pain no vomiting or any diarrhea mention the left thigh pain and swelling has decreased in intensity. Patient white count slightly up to 21.7, creatinine is 1.7 Objective - Vital Signs Vital signs: Vital Signs Temp 97.6 F 08/04/23 07:27 Pulse 72 08/04/23 08:50 Resp 16 08/04/23 08:50 BP 128/63 08/04/23 07:27 Pulse Ox 97 08/04/23 07:27 FiO2 Intake & Output 08/03/23 08/04/23 08/04/23 18:59 06:59 18:59 Output Total 500 1200 Balance -500 -1200 Weight 74.843 kg Output: Urine 500 1200 Other: Voiding Method External Catheter External Catheter - Exam GENERAL DESCRIPTION: An elderly female lying in bed in no distress RESPIRATORY SYSTEM: Unlabored breathing , decreased breath sounds at bases HEART: S1 S2 regular rate and rhythm , ABDOMEN: Soft , no tenderness EXTREMITIES: Patient left thigh and leg swelling and redness slightly decreased - Labs CBC & Chem 7: 08/04/23 03:59 08/04/23 03:59 Labs: Abnormal Lab Results - Last 24 Hours (Table) 08/04/23 08/04/23 Range/Units 03:59 03:59 WBC 21.79 H (4.50-10.00) X 10*3/uL RBC 2.78 L (4.10-5.20) X 10*6/uL Hgb 9.7 L (12.0-15.0) g/dL Hct 29.9 L (37.2-46.3) % MCV 107.6 H (80.0-97.0) FL MCH 34.9 H (27.0-32.0) pg RDW 17.0 H (11.5-14.5) % Plt Count 118 L (140-440) X 10*3/uL Immature Gran # 0.14 H (0.00-0.04) X 10*3/uL Neutrophils # 15.78 H (1.80-7.70) X 10*3/uL Monocytes # 1.87 H (0.20-1.00) X 10*3/uL Eosinophils # 1.09 H (0.04-0.35) X 10*3/uL Macrocytosis (manual) 2+ A Sodium 134 L (135-145) mmol/L Carbon Dioxide 20.5 L (21.6-31.8) mmol/L BUN 61.2 H (9.0-27.0) mg/dL Creatinine 1.7 H (0.6-1.5) mg/dL Est GFR (CKD-EPI) 30 L (>=60) BUN/Creatinine Ratio 36.00 H (12.00-20.00) Ratio Calcium 8.2 L (8.7-10.3) mg/dL Total Bilirubin 1.6 H (0.3-1.2) mg/dL AST 71 H (13-35) U/L Alkaline Phosphatase 204 H (41-126) U/L Albumin 2.6 L (3.8-4.9) g/dL Globulin 3.7 H (1.6-3.3) g/dL Albumin/Globulin Ratio 0.70 L (1.60-3.17) Ratio Assessment and Plan (1) Left leg cellulitis Current Visit: Yes Status: Acute Code(s): L03.116 - CELLULITIS OF LEFT LOWER LIMB SNOMED Code(s): 74712327012708798 (2) Allergy to penicillin Current Visit: No Status: Acute Code(s): Z88.0 - ALLERGY STATUS TO PENICILLIN SNOMED Code(s): 88865239 (3) Elevated WBC count Current Visit: No Status: Acute Code(s): D72.829 - ELEVATED WHITE BLOOD CELL COUNT, UNSPECIFIED SNOMED Code(s): 798803456 Plan: 1-Patient presented to hospital with multiple symptoms including increasing sw elling to the left lower extremity in this patient who did have some redness and hard area to the left medial thigh however CT did not show any evidence of abscess 2-patient also have elevated liver enzymes however CT as well as ultrasound did not show any evidence of gallbladder stone or dilated CBD 3-penicillin allergy that will limit the number of antibiotics safe to use 4-patient to continue with cefepime while waiting for the culture to finalize and monitor clinical course closely Dictation was produced using [employer] dictation software. please excuse any grammatical, word or spelling errors. Time with Patient: Less than 30
[2023-08-04 17:43] LABS: Glucose,Whole Blood 108 mg/dL (70-110)
[2023-08-04 20:03] LABS: Glucose,Whole Blood 113 mg/dL (70-110)
[2023-08-04] MEDS: HEPARIN SODIUM,PORCINE 5,000 UNIT/ML 1 ML VIAL SQ SCH (20:52)
[2023-08-05 06:44] LABS: African American GFR (CKD) 44 (>60 ml/min/1.73 sqM); Anion Gap 1 mmol/L; Blood Urea Nitrogen 60 mg/dL (7-17); Calcium 7.9 mg/dL (8.4-10.2); Carbon Dioxide 26 mmol/L (22-30); Chloride 107 mmol/L (98-107); Glucose 88 mg/dL (74-99); Non-African American GFR(CKD) 38 (>60 ml/min/1.73 sqM); Potassium 4.3 mmol/L (3.5-5.1); Sodium 134 mmol/L (137-145)
[2023-08-05 07:01] LABS: Glucose,Whole Blood 94 mg/dL (70-110)
[2023-08-05 09:29] LABS: Basophils # (A) 0.04 X 10*3/uL (0.00-0.10); Basophils % (A) 0.3 %; Eosinophils # (A) 1.29 X 10*3/uL (0.04-0.35); Eosinophils % (A) 10.9 %; HCT 26.4 % (37.2-46.3); HGB 8.7 g/dL (12.0-15.0); Lymphocytes # (A) 2.18 X 10*3/uL (0.90-5.00); Lymphocytes % (A) 18.4 %; MCH 34.5 pg (27.0-32.0); MCV 104.8 FL (80.0-97.0); Mean Platelet Volume 9.8 FL (9.5-12.2); Monocytes # (A) 1.47 X 10*3/uL (0.20-1.00); Monocytes % (A) 12.4 %; NRBC Per 100 WBC 0.02 X 10*3/uL (0.00-0.01); Neutrophils # (A) 6.81 X 10*3/uL (1.80-7.70); Neutrophils % (A) 57.4 %; Platelet Count 126 X 10*3/uL (140-440); RBC 2.52 X 10*6/uL (4.10-5.20); WBC 11.86 X 10*3/uL (4.50-10.00)
[2023-08-05 12:35] LABS: Glucose,Whole Blood 89 mg/dL (70-110)
--- NOTE | 2023-08-05 15:18 | P.PN ---
Subjective Progress Note Date: 08/05/23 CHIEF COMPLAINT: Cholecystitis HISTORY OF PRESENT ILLNESS: Patient had right upper quadrant pain radiating to back. She still having some mild tenderness in the right upper quadrant. No nausea or vomiting. She is also being treated for an acute CHF exacerbation on IV Lasix. Followed by cardiology. Patient also lower extremity cellulitis. WBC is trending down from 21-11.86. Hemoglobin 8.7 platelets 126 creatinine 1.33 sodium is 134 potassium 4.3 PHYSICAL EXAM: VITAL SIGNS: Reviewed. GENERAL: Well-developed in no acute distress. ABDOMEN: Soft. Nondistended. Right upper quadrant tenderness with palpation NEUROLOGIC: Alert and oriented. Cranial nerves II through XII grossly intact. ASSESSMENT: 1. Cholecystitis with cholelithiasis 2. Acute CHF exacerbation PLAN: -Patient tentatively scheduled for laparoscopic cholecystectomy tomorrow with Dr. Nathan -N.p.o. after midnight -Cardiology to manage CHF exacerbation -Continue antibiotics -Continue low-fat diet for today Physician Associate Professor Of [employer] note has been reviewed by physician. Signing provider agrees with the documented findings, assessment, and plan of care. Objective - Vital Signs Vital signs: Vital Signs Temp 98.2 F 08/05/23 13:04 Pulse 82 08/05/23 13:04 Resp 17 08/05/23 13:04 BP 136/56 08/05/23 13:04 Pulse Ox 99 08/05/23 13:04 FiO2 Intake & Output 08/04/23 08/05/23 08/05/23 18:59 06:59 18:59 Intake Total 118 240 Output Total 1200 900 Balance -1200 -782 240 Intake: Oral 118 240 Output: Urine 1200 900 Other: Voiding Method External Catheter External Catheter External Catheter # Voids 1 - Labs CBC & Chem 7: 08/05/23 05:47 08/05/23 05:47 Labs: Abnormal Lab Results - Last 24 Hours (Table) 08/04/23 08/05/23 08/05/23 Range/Units 20:00 05:47 05:47 WBC 11.86 H (4.50-10.00) X 10*3/uL RBC 2.52 L (4.10-5.20) X 10*6/uL Hgb 8.7 L (12.0-15.0) g/dL Hct 26.4 L (37.2-46.3) % MCV 104.8 H (80.0-97.0) FL MCH 34.5 H (27.0-32.0) pg RDW 17.0 H (11.5-14.5) % Plt Count 126 L (140-440) X 10*3/uL Immature Gran # 0.07 H (0.00-0.04) X 10*3/uL Monocytes # 1.47 H (0.20-1.00) X 10*3/uL Eosinophils # 1.29 H (0.04-0.35) X 10*3/uL NRBC/100 WBC Diff 0.02 H (0.00-0.01) X 10*3/uL Sodium 134 L (137-145) mmol/L BUN 60 H (7-17) mg/dL Creatinine 1.33 H (0.52-1.04) mg/dL POC Glucose (mg/dL) 113 H (70-110) mg/dL Calcium 7.9 L (8.4-10.2) mg/dL Microbiology - Last 24 Hours (Table) 08/03/23 03:30 Blood Culture - Preliminary Blood
[2023-08-05 17:28] LABS: Glucose,Whole Blood 114 mg/dL (70-110)
[2023-08-05 20:05] LABS: Glucose,Whole Blood 102 mg/dL (70-110)
--- NOTE | 2023-08-05 22:21 | P.PN ---
Subjective Progress Note Date: 08/05/23 This is a pleasant 78-year-old female with medical history of asthma, diastolic heart failure, hypertension, heart catheterization, lymphoma. patient is a never smoker. Patient was recently admitted to the hospital for a perforated gastric ulcer where she underwent surgical repair. Patient has been at rehabilitation and states that since discharge she has been having lower back pain. This back pain is worse on the right with radiation over to the left lower back. Has worked up at the ER for a lumbar radiculopathy underwent an abdominal pelvis CT which reveals removal of the previous drainage catheter in the left upper abdomen, improved anasarca of the soft tissues, previous pleural effusions have essentially resolved, mild cardiomegaly, cirrhotic hepatic morphology, cholelithiasis versus sludge with no acute abnormality demonstrated in the limits of this unenhanced exam. Patient was noted to have gallstones or previous admission as well. There is moderate stool throughout the colon. Valentin mendez is noted to have an elevated white blood cell count of 25.0 on admission with a hemoglobin of 10.4, platelet count of 136. Her sodium level is 135, BUN of 74, creatinine of 1.59, total bilirubin is elevated at 3.0, AST of 105, ALT of 43 and an alk phos of 244. Her proBNP is elevated at 5000 patient does have significant lower extremity pitting edema which she states has been worsening over the last couple days. Urinalysis is negative. She is denying shortness of breath she is not having any chest pain she is not having any nausea vomiting or diarrhea. No urinary symptoms. Straight leg raise test does not make the lower back pain worse. Her right upper quadrant is significantly tender on manual palpation. She is concerned with her left lower extremity there is an hardened erythematous area on the inner aspect of her left thigh which is tender to touch. A CT of the lower extremity was completed showing a soft tissue edema and cellulitis throughout the left lower extremity. No focal fluid collection identified. There is no clear evidence of an acute osseous obstructive process. There is generalized osseous demineralization with multiple foci of lower attenuation seen primarily in the bones about the knee and the ankle of uncertain etiology. This could be reflective osteoarthritis with sequela of infectious process or metastasis less likely considerations. Clinical correlation with bone scan may be considered. Patient evaluated today in follow up; reports continued right flank pain. General surgery has evaluated the patient and recommended patient to undergo laproscopic cholecystectomy. Patient does state that she is also scheduled to undergo an EGD next month with Dr. Mariama Dawson for follow up for the perforated gastric ulcer. Patients lower extremity edema is improving and she continues with bilateral JACKIE wrap. Continues on IV lasix 40 mg q12. Patient has had negative 1.7 L of urine output overnight. Bilirubin and LFTs are improving. BUN 61.2 and creatinine of 1.7 today. WBC 21.79. 08/05/2023 Patient is evaluated in follow-up today resting in bed. S echocardiogram has been taken and pending at this time. He continues to report right flank pain as well as right upper quadrant abdominal discomfort. Patient is scheduled to undergo laparoscopic cholecystectomy tomorrow. Cardiology is following and patient continues on IV lasix 40 mg every 12 hours. Echocardiogram has been taken and pending at this time. Labs improving white blood cell count down to 11.86, hemoglobin 8.7, platelet count 126. Sodium 134, BUN 60, creatinine 1.33. proBNP improving down to 3174. Patient is considered moderate surgical risk due to congestive heart failure. Patient is on room air at this time. Review of Systems Constitutional: Denied any fatigue denied any fever. Cardio vascular: denied any chest pain, palpitations Gastrointestinal: denied any nausea, vomiting, diarrhea Pulmonary: Denied any shortness of breath cough Neurologic denied any new focal deficits All inpatient medications were reviewed and appropriate changes in these medications as dictated in the interval history and assessment and plan. PHYSICAL EXAMINATION: GENERAL: The patient is alert and oriented x3, not in any acute distress. Well developed, well nourished. HEENT: Pupils are round and equally reacting to light. EOMI. No scleral icterus. No conjunctival pallor. Normocephalic, atraumatic. No pharyngeal erythema. No thyromegaly. CARDIOVASCULAR: S1 and S2 present. No murmurs, rubs, or gallops. PULMONARY: Chest is clear to auscultation, no wheezing or crackles. ABDOMEN: Soft, RUQ tenderness, nondistended, normoactive bowel sounds. No palpable organomegaly. MUSCULOSKELETAL: No joint swelling or deformity. EXTREMITIES: No cyanosis, clubbing, or pedal edema. lower extremity edema non pitting. wrapped with jackie bandages. NEUROLOGICAL: Gross neurological examination did not reveal any focal deficits. SKIN: No rashes. Assessment and plan -Right upper quadrant abdominal pain with transaminitis and hyperbilirubinemia no evidence for biliary dilation, bilirubin and LFTs are improving. Patient has right sided flank pain and may have passed a gallstone. -Gallbladder sludge with recommendations for laproscopic cholecystectomy, cardiology recommending to hold off surgery for now as above patient is moderate surgical risk due to the congestive heart failure, proBNP is improving and also improved from previous admission as well. Cardiology following. -Recent hospitalization for perforated gastric ulcer status postsurgical repair -Lower extremity edema secondary to mild acute diastolic CHF exacerbation proBNP elevated at 5000 will be given IV Lasix every 12 with intake and output monitoring and repeat labs in the morning -Left thigh cellulitic changes with concern for sepsis remains on IV cefepime; ID following. White count slightly improved and will repeat labs in the AM. -History of paroxysmal atrial fibrillation anticoag with Eliquis which is now held for possible surgery. -History of asthma with no acute exacerbation -History of hypertension -History of lumbar degenerative disc disease with lumbar MRI in 2022 revealing severe central stenosis at L4-5 with mild central stenosis at L3-4 and L5-S1 -History of inclusion body myositis patient underwent muscle biopsy back in February 2023 -Hx of multiple myeloma GI prophylaxis DVT prophylaxis Full code The impression and plan of care has been dictated by Nurse Eliezer Prac titioner as directed. Dr. Irwin MD I have performed a history and physical examination and medical decision making of this patient, discussed the same with the dictator, and agree with the dictators assessment and plan as written, documented as a scribe. Based on total visit time, I have performed more than 50% of this visit. Objective - Vital Signs Vital signs: Vital Signs Temp 98.2 F 08/05/23 07:30 Pulse 78 08/05/23 07:30 Resp 16 08/05/23 07:30 BP 152/68 08/05/23 07:30 Pulse Ox 98 08/05/23 07:30 FiO2 Intake & Output 08/04/23 08/05/23 08/05/23 18:59 06:59 18:59 Intake Total 118 240 Output Total 1200 900 Balance -1200 -782 240 Intake: Oral 118 240 Output: Urine 1200 900 Other: Voiding Method External Catheter External Catheter External Catheter # Voids 1 - Labs CBC & Chem 7: 08/05/23 05:47 08/05/23 05:47 Labs: Abnormal Lab Results - Last 24 Hours (Table) 08/04/23 08/04/23 08/04/23 Range/Units 03:59 03:59 20:00 WBC 21.79 H (4.50-10.00) X 10*3/uL RBC 2.78 L (4.10-5.20) X 10*6/uL Hgb 9.7 L (12.0-15.0) g/dL Hct 29.9 L (37.2-46.3) % MCV 107.6 H (80.0-97.0) FL MCH 34.9 H (27.0-32.0) pg RDW 17.0 H (11.5-14.5) % Plt Count 118 L (140-440) X 10*3/uL Immature Gran # 0.14 H (0.00-0.04) X 10*3/uL Neutrophils # 15.78 H (1.80-7.70) X 10*3/uL Monocytes # 1.87 H (0.20-1.00) X 10*3/uL Eosinophils # 1.09 H (0.04-0.35) X 10*3/uL NRBC/100 WBC Diff (0.00-0.01) X 10*3/uL Macrocytosis (manual) 2+ A Sodium 134 L (135-145) mmol/L Carbon Dioxide 20.5 L (21.6-31.8) mmol/L BUN 61.2 H (9.0-27.0) mg/dL Creatinine 1.7 H (0.6-1.5) mg/dL Est GFR (CKD-EPI) 30 L (>=60) BUN/Creatinine Ratio 36.00 H (12.00-20.00) Ratio POC Glucose (mg/dL) 113 H (70-110) mg/dL Calcium 8.2 L (8.7-10.3) mg/dL Total Bilirubin 1.6 H (0.3-1.2) mg/dL AST 71 H (13-35) U/L Alkaline Phosphatase 204 H (41-126) U/L Albumin 2.6 L (3.8-4.9) g/dL Globulin 3.7 H (1.6-3.3) g/dL Albumin/Globulin Ratio 0.70 L (1.60-3.17) Ratio 08/05/23 08/05/23 Range/Units 05:47 05:47 WBC 11.86 H (4.50-10.00) X 10*3/uL RBC 2.52 L (4.10-5.20) X 10*6/uL Hgb 8.7 L (12.0-15.0) g/dL Hct 26.4 L (37.2-46.3) % MCV 104.8 H (80.0-97.0) FL MCH 34.5 H (27.0-32.0) pg RDW 17.0 H (11.5-14.5) % Plt Count 126 L (140-440) X 10*3/uL Immature Gran # 0.07 H (0.00-0.04) X 10*3/uL Neutrophils # (1.80-7.70) X 10*3/uL Monocytes # 1.47 H (0.20-1.00) X 10*3/uL Eosinophils # 1.29 H (0.04-0.35) X 10*3/uL NRBC/100 WBC Diff 0.02 H (0.00-0.01) X 10*3/uL Macrocytosis (manual) Sodium 134 L (135-145) mmol/L Carbon Dioxide (21.6-31.8) mmol/L BUN 60 H (9.0-27.0) mg/dL Creatinine 1.33 H (0.6-1.5) mg/dL Est GFR (CKD-EPI) (>=60) BUN/Creatinine Ratio (12.00-20.00) Ratio POC Glucose (mg/dL) (70-110) mg/dL Calcium 7.9 L (8.7-10.3) mg/dL Total Bilirubin (0.3-1.2) mg/dL AST (13-35) U/L Alkaline Phosphatase (41-126) U/L Albumin (3.8-4.9) g/dL Globulin (1.6-3.3) g/dL Albumin/Globulin Ratio (1.60-3.17) Ratio Microbiology - Last 24 Hours (Table) 08/03/23 03:30 Blood Culture - Preliminary Blood Assessment and Plan Time with Patient: Less than 30
--- NOTE | 2023-08-05 22:27 | P.PN ---
Subjective Progress Note Date: 08/05/23 Principal diagnosis: Reason for follow-up is left thigh and leg cellulitis Patient is a 78-year-old female with a past medical history significant for hypertension heart failure asthma heart failure lymphoma, presenting to the hospital with increasing swelling and redness to left lower extremity has been diagnosed with the cellulitis. On today's evaluation that is 08/05/2023, Patient is afebrile patient is currently on room air and denies having any shortness of breath, the patient denies any chest pain or cough, the patient denies any nausea vomiting no abdominal pain or any diarrhea pain and swelling to the left lower extremity has decreased in intensity. Patient white count is 11.86, creatinine is 1.33 blood cultures pending Objective - Vital Signs Vital signs: Vital Signs Temp 98.2 F 08/05/23 07:30 Pulse 78 08/05/23 07:30 Resp 16 08/05/23 07:30 BP 152/68 08/05/23 07:30 Pulse Ox 98 08/05/23 07:30 FiO2 Intake & Output 08/04/23 08/05/23 08/05/23 18:59 06:59 18:59 Intake Total 118 240 Output Total 1200 900 Balance -1200 -782 240 Intake: Oral 118 240 Output: Urine 1200 900 Other: Voiding Method External Catheter External Catheter External Catheter # Voids 1 - Exam GENERAL DESCRIPTION: An elderly female lying in bed in no distress RESPIRATORY SYSTEM: Unlabored breathing , decreased breath sounds at bases HEART: S1 S2 regular rate and rhythm , ABDOMEN: Soft , no tenderness EXTREMITIES: Patient left thigh and leg swelling and redness slightly decreased - Labs CBC & Chem 7: 08/05/23 05:47 08/05/23 05:47 Labs: Abnormal Lab Results - Last 24 Hours (Table) 08/04/23 08/05/23 08/05/23 Range/Units 20:00 05:47 05:47 WBC 11.86 H (4.50-10.00) X 10*3/uL RBC 2.52 L (4.10-5.20) X 10*6/uL Hgb 8.7 L (12.0-15.0) g/dL Hct 26.4 L (37.2-46.3) % MCV 104.8 H (80.0-97.0) FL MCH 34.5 H (27.0-32.0) pg RDW 17.0 H (11.5-14.5) % Plt Count 126 L (140-440) X 10*3/uL Immature Gran # 0.07 H (0.00-0.04) X 10*3/uL Monocytes # 1.47 H (0.20-1.00) X 10*3/uL Eosinophils # 1.29 H (0.04-0.35) X 10*3/uL NRBC/100 WBC Diff 0.02 H (0.00-0.01) X 10*3/uL Sodium 134 L (137-145) mmol/L BUN 60 H (7-17) mg/dL Creatinine 1.33 H (0.52-1.04) mg/dL POC Glucose (mg/dL) 113 H (70-110) mg/dL Calcium 7.9 L (8.4-10.2) mg/dL Microbiology - Last 24 Hours (Table) 08/03/23 03:30 Blood Culture - Preliminary Blood Assessment and Plan (1) Left leg cellulitis Current Visit: Yes Status: Acute Code(s): L03.116 - CELLULITIS OF LEFT LOWER LIMB SNOMED Code(s): 46423188312212360 (2) Allergy to penicillin Current Visit: No Status: Acute Code(s): Z88.0 - ALLERGY STATUS TO PENICILLIN SNOMED Code(s): 71819427 (3) Elevated WBC count Current Visit: No Status: Acute Code(s): D72.829 - ELEVATED WHITE BLOOD CELL COUNT, UNSPECIFIED SNOMED Code(s): 817749893 Plan: 1-Patient presented to hospital with multiple symptoms including increasing swelling to the left lower extremity in this patient who did have some redness and hard area to the left medial thigh however CT did not show any evidence of abscess 2-patient also have elevated liver enzymes however CT as well as ultrasound did not show any evidence of gallbladder stone or dilated CBD, surgery is following the patient 3-penicillin allergy that will limit the number of antibiotics safe to use 4-patient did have some clinical improvement white count is trending down, to continue with cefepime and monitor clinical course closely Dictation was produced using [employer] dictation software. please excuse any gra mmatical, word or spelling errors. Time with Patient: Less than 30
[2023-08-06 07:09] LABS: Glucose,Whole Blood 109 mg/dL (70-110)
[2023-08-06 07:50] LABS: African American GFR (CKD) 58 (>60 ml/min/1.73 sqM); Anion Gap 7 mmol/L; Blood Urea Nitrogen 51 mg/dL (7-17); Calcium 7.9 mg/dL (8.4-10.2); Carbon Dioxide 21 mmol/L (22-30); Chloride 108 mmol/L (98-107); Glucose 98 mg/dL (74-99); Non-African American GFR(CKD) 50 (>60 ml/min/1.73 sqM); Potassium 3.8 mmol/L (3.5-5.1); Sodium 136 mmol/L (137-145)
--- NOTE | 2023-08-06 07:51 | CA ---
Transthoracic Echo Report Name: Basia Hardy Age: 78 Gender: F : 1945 Exam Date: 08/05/2023 12:54 Exam Location: [place] [facility] Ht (in): 64 Wt (lb): 165 Ordering Physician: Nola Beckford MD ([id number]) Attending/Referring Phys: Credit Adjuster John Hall RDCS Procedure CPT: Indications: chf Cardiac Hx: Technical Quality: Contrast 1: Total Dose (mL): Contrast 2: Total Dose (mL): MEASUREMENTS (Male / Female) Normal Values 2D ECHO LV Diastolic Diameter PLAX 4.7 cm 4.2 - 5.9 / 3.9 - 5.3 cm LV Systolic Diameter PLAX 3.5 cm IVS Diastolic Thickness 1.1 cm 0.6 - 1.0 / 0.6 - 0.9 cm LVPW Diastolic Thickness 1.1 cm 0.6 - 1.0 / 0.6 - 0.9 cm LV Relative Wall Thickness 0.5 LVOT Diameter 2.1 cm Aortic Root Diameter 3.3 cm LA Systolic Diameter LX 3.5 cm 3.0 - 4.0 / 2.7 - 3.8 cm LV Diastolic Volume MOD BP 91.1 cm??? 67 - 155 / 56 - 104 cm??? LV Systolic Volume MOD BP 32.7 cm??? 22 - 58 / 19 - 49 cm??? LV Ejection Fraction MOD BP 64.1 % >= 55 % LV Diastolic Volume MOD 4C 116.3 cm??? LV Systolic Volume MOD 4C 31.1 cm??? LV Ejection Fraction MOD 4C 73.3 % LV Diastolic Length 4C 7.8 cm LV Systolic Length 4C 6.3 cm LV Diastolic Volume MOD 2C 69.9 cm??? LV Systolic Volume MOD 2C 33.3 cm??? LV Ejection Fraction MOD 2C 52.3 % LV Diastolic Length 2C 7.6 cm LV Systolic Length 2C 6.8 cm LA Volume 83.6 cm??? 18 - 58 / 22 - 52 cm??? LA Volume Index 45.0 cm???/m??? 16 - 28 cm???/m??? DOPPLER AV Peak Velocity 200.5 cm/s AV Peak Gradient 16.1 mmHg AV Mean Velocity 140.9 cm/s AV Mean Gradient 8.7 mmHg AV Velocity Time Integral 43.0 cm LVOT Peak Velocity 103.0 cm/s LVOT Peak Gradient 4.2 mmHg LVOT Velocity Time Integral 23.5 cm LVOT Stroke Volume 79.6 cm??? LVOT Stroke Volume Index 44.1 ml/m??? AV Area Cont Eq vti 1.9 cm??? AV Area Cont Eq pk 1.7 cm??? MV Area PHT 3.8 cm??? MR Peak Velocity 432.5 cm/s MR Peak Gradient 74.8 mmHg Mitral E Point Velocity 111.1 cm/s Mitral A Point Velocity 77.7 cm/s Mitral E to A Ratio 1.4 MV Deceleration Time 202.2 ms TR Peak Velocity 190.5 cm/s TR Peak Gradient 14.5 mmHg PV Peak Velocity 97.5 cm/s PV Peak Gradient 3.8 mmHg FINDINGS Left Ventricle Mildly increased wall thickness. Mild left ventricular hypertrophy. Left ventricular ejection fraction is estimated at 50-55 %. Right Ventricle Normal right ventricular size. Right Atrium Mild right atrial dilatation Left Atrium Moderate left atrial dilatation Mitral Valve Moderate mitral regurgitation. Aortic Valve No aortic regurgitation. Tricuspid Valve Trace tricuspid regurgitation. Pulmonic Valve Trace pulmonic regurgitation. Pericardium No pericardial effusion. Aorta Normal size aortic root. CONCLUSIONS Normal LV size. LVEF 50-55%. Mild concentric LVH Moderate mitral regurgitation Moderate left atrial dilatation Previous echo recorded on 04/15/2023. Previewed by: Dr Johann Poole (Electronically Signed) Final Date: 06 August 2023 07:50
[2023-08-06 08:48] LABS: HCT 31.2 % (34.0-46.0); HGB 9.8 gm/dL (11.4-16.0); Hypochromasia Moderate; MCH 35.1 pg (25.0-35.0); MCHC 31.3 g/dL (31.0-37.0); MCV 111.9 fL (80.0-100.0); Macrocytosis Marked; Mean Platelet Volume 7.9; Platelet Count 136 k/uL (150-450); RBC 2.79 m/uL (3.80-5.40); RDW 15.9 % (11.5-15.5)
--- NOTE | 2023-08-06 11:25 | P.PN ---
Subjective Progress Note Date: 08/05/23 History of Present Illness: The patient is an 78-year-old female who is seen for preoperative valuation pr ior to cholecystectomy. She has a known history of heart failure, bronchial asthma, hypertension. She has been followed by Dr. Gonzalez on a regular basis. She underwent cardiac catheterization in 2020 and had mild obstructive CAD. She presents with back discomfort as well is worsening peripheral edema, her NT proBNP was elevated. She denies any chest discomfort, dizziness or palpitations. She had some nausea but no abdominal pain. She denies any significant PND or orthopnea. She is limited in her physical activity and has dyspnea on exertion. She has a history of hypertension and a history of paroxysmal atrial fibrillation and has been anticoagulated. Her abdominal CT scan showed cholelithiasis versus large with resolution of her pleural effusion, her gallbladder ultrasound was suboptimal with a mobile echogenic material in the posterior gallbladder suggestive of sludge but no evidence to suggest acute cholecystitis. On presentation she had evidence to suggest possible cellulitis of the lower extremities. Medications: Eliquis 2.5 mg twice a day, torsemide 20 mg daily, metoprolol tartrate 25 mg twice a day, iron, Ventolin. She was started on IV Lasix following admission. She has been on cefepime for her infection. Labs: WBC 25,000 on admission with a hemoglobin of 10.4. BUN and creatinine 74 and 1.59, today 61 and 1.7. NT proBNP 5000. AST 71, ALT 36. Bilirubin 3.0 and subsequently 1.6. The patient has chronic bilirubin elevation. And her LFTs have been elevated on all her admissions. 08/04 Patient has been continued on IV Lasix and started on Farxiga yesterday. She states that she has been having significant urine output. She states her abdomen is a little bloated. She is planning on surgical intervention. She is not currently on home O2. Echocardiogram remains pending. Physical Examination: 78-year-old female, alert oriented no apparent distress, obese,Blood pressure 128/60, Heart rate 70 Head: Normocephalic. Eyes: Sclerae nonicteric. Neck: Good carotid upstroke, no bruit, no jugular venous distention. Lungs: Clear to auscultation. Heart: Regular rate and rhythm, S1-S2, no S3, no rub. Systolic ejection murmur Abdomen: Soft nontender, positive bowel sounds no organomegaly. Extremities: +2 edema, intact distal pulses. Sky wrap in place Impression: 1. Evidence of fluid overload with congestive heart failure and preserved systolic function 2. Gallbladder sludge being evaluated for cholecystectomy 3. Back discomfort 4. Chronic kidney disease 5. Paroxysmal atrial fibrillation 6. Possible cellulitis Plan: Hold surgery for now because of the recent CHF Continue Farxiga Continue IV Lasix 40 mg twice daily for another 24 hours Obtain 2D echocardiogram Depending on her progress further recommendations will be made, will hold Vy pablo for now until the decision regarding the timing of surgery to be made. Thank you for this consult we will follow with you. Nurse practitioner note has been reviewed, I agree with the documented findings and plan of care. Patient was seen and examined. Objective - Vital Signs Vital signs: Vital Signs Temp 98.2 F 08/05/23 07:30 Pulse 78 08/05/23 07:30 Resp 16 08/05/23 07:30 BP 152/68 08/05/23 07:30 Pulse Ox 98 08/05/23 07:30 FiO2 Intake & Output 08/04/23 08/05/23 08/05/23 18:59 06:59 18:59 Intake Total 118 Output Total 1200 900 Balance -1200 -782 Intake: Oral 118 Output: Urine 1200 900 Other: Voiding Method External Catheter External Catheter # Voids 1 - Labs CBC & Chem 7: 08/06/23 07:10 08/06/23 07:10 Labs: Abnormal Lab Results - Last 24 Hours (Table) 08/04/23 08/04/23 08/04/23 Range/Units 03:59 03:59 20:00 WBC 21.79 H (4.50-10.00) X 10*3/uL RBC 2.78 L (4.10-5.20) X 10*6/uL Hgb 9.7 L (12.0-15.0) g/dL Hct 29.9 L (37.2-46.3) % MCV 107.6 H (80.0-97.0) FL MCH 34.9 H (27.0-32.0) pg RDW 17.0 H (11.5-14.5) % Plt Count 118 L (140-440) X 10*3/uL Immature Gran # 0.14 H (0.00-0.04) X 10*3/uL Neutrophils # 15.78 H (1.80-7.70) X 10*3/uL Monocytes # 1.87 H (0.20-1.00) X 10*3/uL Eosinophils # 1.09 H (0.04-0.35) X 10*3/uL Macrocytosis (manual) 2+ A Sodium 134 L (135-145) mmol/L Carbon Dioxide 20.5 L (21.6-31.8) mmol/L BUN 61.2 H (9.0-27.0) mg/dL Creatinine 1.7 H (0.6-1.5) mg/dL Est GFR (CKD-EPI) 30 L (>=60) BUN/Creatinine Ratio 36.00 H (12.00-20.00) Ratio POC Glucose (mg/dL) 113 H (70-110) mg/dL Calcium 8.2 L (8.7-10.3) mg/dL Total Bilirubin 1.6 H (0.3-1.2) mg/dL AST 71 H (13-35) U/L Alkaline Phosphatase 204 H (41-126) U/L Albumin 2.6 L (3.8-4.9) g/dL Globulin 3.7 H (1.6-3.3) g/dL Albumin/Globulin Ratio 0.70 L (1.60-3.17) Ratio // Range/Units 05:47 WBC (4.50-10.00) X 10*3/uL RBC (4.10-5.20) X 10*6/uL Hgb (12.0-15.0) g/dL Hct (37.2-46.3) % MCV (80.0-97.0) FL MCH (27.0-32.0) pg RDW (11.5-14.5) % Plt Count (140-440) X 10*3/uL Immature Gran # (0.00-0.04) X 10*3/uL Neutrophils # (1.80-7.70) X 10*3/uL Monocytes # (0.20-1.00) X 10*3/uL Eosinophils # (0.04-0.35) X 10*3/uL Macrocytosis (manual) Sodium 134 L (135-145) mmol/L Carbon Dioxide (21.6-31.8) mmol/L BUN 60 H (9.0-27.0) mg/dL Creatinine 1.33 H (0.6-1.5) mg/dL Est GFR (CKD-EPI) (>=60) BUN/Creatinine Ratio (12.00-20.00) Ratio POC Glucose (mg/dL) (70-110) mg/dL Calcium 7.9 L (8.7-10.3) mg/dL Total Bilirubin (0.3-1.2) mg/dL AST (13-35) U/L Alkaline Phosphatase (41-126) U/L Albumin (3.8-4.9) g/dL Globulin (1.6-3.3) g/dL Albumin/Globulin Ratio (1.60-3.17) Ratio Microbiology - Last 24 Hours (Table) 08/03/23 03:30 Blood Culture - Preliminary Blood
[2023-08-06 11:27] LABS: Neutrophils % (M) 63 %; Nucleated Red Blood Cells 0 /100 WBC (0-0); Total Cells Counted 100
--- NOTE | 2023-08-06 11:28 | P.PN ---
Subjective Progress Note Date: 08/06/23 History of Present Illness: The patient is an 78-year-old female who is seen for preoperative valuation pr ior to cholecystectomy. She has a known history of heart failure, bronchial asthma, hypertension. She has been followed by Dr. Gonzalez on a regular basis. She underwent cardiac catheterization in 2020 and had mild obstructive CAD. She presents with back discomfort as well is worsening peripheral edema, her NT proBNP was elevated. She denies any chest discomfort, dizziness or palpitations. She had some nausea but no abdominal pain. She denies any significant PND or orthopnea. She is limited in her physical activity and has dyspnea on exertion. She has a history of hypertension and a history of paroxysmal atrial fibrillation and has been anticoagulated. Her abdominal CT scan showed cholelithiasis versus large with resolution of her pleural effusion, her gallbladder ultrasound was suboptimal with a mobile echogenic material in the posterior gallbladder suggestive of sludge but no evidence to suggest acute cholecystitis. On presentation she had evidence to suggest possible cellulitis of the lower extremities. Medications: Eliquis 2.5 mg twice a day, torsemide 20 mg daily, metoprolol tartrate 25 mg twice a day, iron, Ventolin. She was started on IV Lasix following admission. She has been on cefepime for her infection. Labs: WBC 25,000 on admission with a hemoglobin of 10.4. BUN and creatinine 74 and 1.59, today 61 and 1.7. NT proBNP 5000. AST 71, ALT 36. Bilirubin 3.0 and subsequently 1.6. The patient has chronic bilirubin elevation. And her LFTs have been elevated on all her admissions. 08/04 Patient has been continued on IV Lasix and started on Farxiga yesterday. She states that she has been having significant urine output. She states her abdomen is a little bloated. She is planning on surgical intervention. She is not currently on home O2. Echocardiogram remains pending. 08/05 Patient appears stable today. She has been maintained on IV Lasix 40 mg every 12 hours. She has a negative fluid balance of 1981. She has less lower extremity edema today. Echocardiogram reveals EF of 50 to 55%, mild concentric left ventricular hypertrophy, moderate mitral regurgitation, moderate left atrial dilatation. Results of echocardiogram have been reviewed with the patient. Physical Examination: 78-year-old female, alert oriented no apparent distress, obese Head: Normocephalic. Eyes: Sclerae nonicteric. Neck: Good carotid upstroke, no bruit, no jugular venous distention. Lungs: Clear to auscultation. Heart: Regular rate and rhythm, S1-S2, no S3, no rub. Systolic ejection murmur Abdomen: Soft nontender, positive bowel sounds no organomegaly. Extremities: +1 edema, intact distal pulses. Sky wrap in place Impression: 1. Evidence of fluid overload with congestive heart failure and preserved systolic function, Acute HFpEF exacerbation. 2. Gallbladder sludge being evaluated for cholecystectomy 3. Back discomfort 4. Chronic kidney disease 5. Paroxysmal atrial fibrillation 6. Possible cellulitis 7. moderate mitral regurgitation 8. HALINA resolving with diuretic therapy Plan: Continue Farxiga Hold IV Lasix for this afternoon and after assessment tomorrow, Lasix dosing will be determined. Monitor FRANCISCO JAVIER, daily weights, electrolytes and renal function Patient is cleared for surgical intervention for cholecystectomy, there are no absolute contraindications and patient is at moderate risk for complications during the perioperative period. Dr. Poole's addendum Patient was admitted with abdominal pain and bilateral lower extremity swelling concerns of fluid overload. On admission she had evidence of HALINA which was likely due to congestive nephropathy. With IV diuretics her kidney function has improved and her shortness of breath and lower extremity swelling has improved. She is planned for gallbladder resection surgery for concerns of cholecystitis and choledocholithiasis. Patient is at moderate risk for the surgery because of recent CHF exacerbation and prior nonmodifiable risk factors. Her risk factors are nonmodifiable with further interventions at this time. Surgeons can proceed with surgery with no obvious cardiovascular contraindication at this time. Patient will need close postsurgical follow-up with close hemodynamic and urine output monitoring. Lasix. Hold Farxiga. Hold Farxiga until patient starts oral diet. Post surgery and prior to discharge she will need more intensive HFpEF therapy. Nurse practitioner note has been reviewed, I agree with the documented findings and plan of care. Patient was seen and examined. Objective - Vital Signs Vital signs: Vital Signs Temp 97.9 F 08/06/23 07:10 Pulse 70 08/06/23 07:10 Resp 18 08/06/23 07:10 BP 161/83 08/06/23 07:10 Pulse Ox 99 08/06/23 07:10 FiO2 Intake & Output 08/05/23 08/06/23 08/06/23 18:59 06:59 18:59 Intake Total 1260 118 Output Total 1400 1600 Balance -140 -1482 Weight 77.5 kg Intake: Oral 1260 118 Output: Urine 1400 1600 Other: Voiding Method External Catheter External Catheter - Labs CBC & Chem 7: 08/06/23 07:10 08/06/23 07:10 Labs: Abnormal Lab Results - Last 24 Hours (Table) 08/05/23 08/05/23 08/05/23 Range/Units 05:47 05:47 17:18 WBC 11.86 H (4.50-10.00) X 10*3/uL RBC 2.52 L (4.10-5.20) X 10*6/uL Hgb 8.7 L (12.0-15.0) g/dL Hct 26.4 L (37.2-46.3) % MCV 104.8 H (80.0-97.0) FL MCH 34.5 H (27.0-32.0) pg RDW 17.0 H (11.5-14.5) % Plt Count 126 L (140-440) X 10*3/uL Immature Gran # 0.07 H (0.00-0.04) X 10*3/uL Monocytes # 1.47 H (0.20-1.00) X 10*3/uL Eosinophils # 1.29 H (0.04-0.35) X 10*3/uL NRBC/100 WBC Diff 0.02 H (0.00-0.01) X 10*3/uL Sodium (137-145) mmol/L Chloride (98-107) mmol/L Carbon Dioxide (22-30) mmol/L BUN (7-17) mg/dL Creatinine (0.52-1.04) mg/dL POC Glucose (mg/dL) 114 H (70-110) mg/dL Calcium (8.4-10.2) mg/dL NT-Pro-B Natriuret Pep 3174 H (0-450) pg/mL 08/06/23 Range/Units 07:10 WBC (4.50-10.00) X 10*3/uL RBC (4.10-5.20) X 10*6/uL Hgb (12.0-15.0) g/dL Hct (37.2-46.3) % MCV (80.0-97.0) FL MCH (27.0-32.0) pg RDW (11.5-14.5) % Plt Count (140-440) X 10*3/uL Immature Gran # (0.00-0.04) X 10*3/uL Monocytes # (0.20-1.00) X 10*3/uL Eosinophils # (0.04-0.35) X 10*3/uL NRBC/100 WBC Diff (0.00-0.01) X 10*3/uL Sodium 136 L (137-145) mmol/L Chloride 108 H (98-107) mmol/L Carbon Dioxide 21 L (22-30) mmol/L BUN 51 H (7-17) mg/dL Creatinine 1.05 H (0.52-1.04) mg/dL POC Glucose (mg/dL) (70-110) mg/dL Calcium 7.9 L (8.4-10.2) mg/dL NT-Pro-B Natriuret Pep (0-450) pg/mL Microbiology - Last 24 Hours (Table) 08/03/23 03:30 Blood Culture - Preliminary Blood
[2023-08-06 11:43] LABS: Glucose,Whole Blood 85 mg/dL (70-110)
--- NOTE | 2023-08-06 12:20 | P.PN ---
Subjective Progress Note Date: 08/06/23 CHIEF COMPLAINT: Cholecystitis HISTORY OF PRESENT ILLNESS: Patient continues to complain of right upper q uadrant abdominal pain. Patient evaluated by cardiology. They have cleared her to proceed with surgery today. Patient denies any shortness of breath or chest pain. Vital stable. WBCs 10 Hgb 9.8 platelets 136 sodium is 136 potassium 3.8 creatinine 1.05 PHYSICAL EXAM: VITAL SIGNS: Reviewed. GENERAL: Well-developed in no acute distress. ABDOMEN: Soft. Nondistended. Right upper quadrant tenderness with palpation NEUROLOGIC: Alert and oriented. Cranial nerves II through XII grossly intact. ASSESSMENT: 1. Cholecystitis with cholelithiasis 2. Acute CHF exacerbation followed by cardiology PLAN: -Patient scheduled for laparoscopic cholecystectomy today with Dr. Nathan -Keep patient n.p.o. -Continue antibiotics Physician Equipment Washer note has been reviewed by physician. Signing provider agrees with the documented findings, assessment, and plan of care. Objective - Vital Signs Vital signs: Vital Signs Temp 97.9 F 08/06/23 07:10 Pulse 70 08/06/23 07:10 Resp 18 08/06/23 07:10 BP 161/83 08/06/23 07:10 Pulse Ox 99 08/06/23 07:10 FiO2 Intake & Output 08/05/23 08/06/23 08/06/23 18:59 06:59 18:59 Intake Total 1260 118 Output Total 1400 1600 850 Balance -140 -1482 -850 Weight 77.5 kg Intake: Oral 1260 118 Output: Urine 1400 1600 850 Other: Voiding Method External Catheter External Catheter External Catheter - Labs CBC & Chem 7: 08/06/23 07:10 08/06/23 07:10 Labs: Abnormal Lab Results - Last 24 Hours (Table) 08/05/23 08/05/23 08/06/23 Range/Units 05:47 17:18 07:10 RBC 2.79 L (3.80-5.40) m/uL Hgb 9.8 L (11.4-16.0) gm/dL Hct 31.2 L (34.0-46.0) % MCV 111.9 H (80.0-100.0) fL MCH 35.1 H (25.0-35.0) pg RDW 15.9 H (11.5-15.5) % Plt Count 136 L (150-450) k/uL Eosinophils # (Manual) 1.30 H (0-0.7) k/uL Macrocytosis Marked A Sodium (137-145) mmol/L Chloride (98-107) mmol/L Carbon Dioxide (22-30) mmol/L BUN (7-17) mg/dL Creatinine (0.52-1.04) mg/dL POC Glucose (mg/dL) 114 H (70-110) mg/dL Calcium (8.4-10.2) mg/dL NT-Pro-B Natriuret Pep 3174 H (0-450) pg/mL 08/06/23 Range/Units 07:10 RBC (3.80-5.40) m/uL Hgb (11.4-16.0) gm/dL Hct (34.0-46.0) % MCV (80.0-100.0) fL MCH (25.0-35.0) pg RDW (11.5-15.5) % Plt Count (150-450) k/uL Eosinophils # (Manual) (0-0.7) k/uL Macrocytosis Sodium 136 L (137-145) mmol/L Chloride 108 H (98-107) mmol/L Carbon Dioxide 21 L (22-30) mmol/L BUN 51 H (7-17) mg/dL Creatinine 1.05 H (0.52-1.04) mg/dL POC Glucose (mg/dL) (70-110) mg/dL Calcium 7.9 L (8.4-10.2) mg/dL NT-Pro-B Natriuret Pep (0-450) pg/mL Microbiology - Last 24 Hours (Table) 08/03/23 03:30 Blood Culture - Preliminary Blood
--- NOTE | 2023-08-06 14:25 | P.PN ---
Subjective Progress Note Date: 08/06/23 Principal diagnosis: Reason for follow-up is left thigh and leg cellulitis Patient is a 78-year-old female with a past medical history significant for hypertension heart failure asthma heart failure lymphoma, presenting to the hospital with increasing swelling and redness to left lower extremity has been diagnosed with the cellulitis. On today's evaluation that is 08/06/2023, patient has been afebrile, patient is breathing comfortably and is currently on room air, patient denies having any significant cough no chest pain shortness of breath, patient denies nausea vomiting or diarrhea and no abdominal pain, patient pain and swelling to the left lower leg and thigh area decreased per patient. Patient white count normalized to 10.0, creatinine 1.05 blood cultures pending Objective - Vital Signs Vital signs: Vital Signs Temp 97.6 F 08/06/23 12:59 Pulse 65 08/06/23 12:59 Resp 20 08/06/23 12:59 BP 137/71 08/06/23 12:59 Pulse Ox 100 08/06/23 12:59 FiO2 Intake & Output 08/05/23 08/06/23 08/06/23 18:59 06:59 18:59 Intake Total 1260 118 Output Total 1400 1600 850 Balance -140 -4202 -850 Weight 77.5 kg Intake: Oral 1260 118 Output: Urine 1400 1600 850 Other: Voiding Method External Catheter External Catheter External Catheter - Exam GENERAL DESCRIPTION: An elderly female lying in bed in no distress RESPIRATORY SYSTEM: Unlabored breathing , decreased breath sounds at bases HEART: S1 S2 regular rate and rhythm , ABDOMEN: Soft , no tenderness EXTREMITIES: Patient left thigh and leg swelling and redness slightly decreased - Labs CBC & Chem 7: 08/06/23 07:10 08/06/23 07:10 Labs: Abnormal Lab Results - Last 24 Hours (Table) 08/05/23 08/05/23 08/06/23 Range/Units 05:47 17:18 07:10 RBC 2.79 L (3.80-5.40) m/uL Hgb 9.8 L (11.4-16.0) gm/dL Hct 31.2 L (34.0-46.0) % MCV 111.9 H (80.0-100.0) fL MCH 35.1 H (25.0-35.0) pg RDW 15.9 H (11.5-15.5) % Plt Count 136 L (150-450) k/uL Eosinophils # (Manual) 1.30 H (0-0.7) k/uL Macrocytosis Marked A Sodium (137-145) mmol/L Chloride (98-107) mmol/L Carbon Dioxide (22-30) mmol/L BUN (7-17) mg/dL Creatinine (0.52-1.04) mg/dL POC Glucose (mg/dL) 114 H (70-110) mg/dL Calcium (8.4-10.2) mg/dL NT-Pro-B Natriuret Pep 3174 H (0-450) pg/mL 08/06/23 Range/Units 07:10 RBC (3.80-5.40) m/uL Hgb (11.4-16.0) gm/dL Hct (34.0-46.0) % MCV (80.0-100.0) fL MCH (25.0-35.0) pg RDW (11.5-15.5) % Plt Count (150-450) k/uL Eosinophils # (Manual) (0-0.7) k/uL Macrocytosis Sodium 136 L (137-145) mmol/L Chloride 108 H (98-107) mmol/L Carbon Dioxide 21 L (22-30) mmol/L BUN 51 H (7-17) mg/dL Creatinine 1.05 H (0.52-1.04) mg/dL POC Glucose (mg/dL) (70-110) mg/dL Calcium 7.9 L (8.4-10.2) mg/dL NT-Pro-B Natriuret Pep (0-450) pg/mL Microbiology - Last 24 Hours (Table) 08/03/23 03:30 Blood Culture - Preliminary Blood Assessment and Plan (1) Left leg cellulitis Current Visit: Yes Status: Acute Code(s): L03.116 - CELLULITIS OF LEFT LOWER LIMB SNOMED Code(s): 74380499505896747 (2) Allergy to penicillin Current Visit: No Status: Acute Code(s): Z88.0 - ALLERGY STATUS TO PENICILLIN SNOMED Code(s): 74196430 (3) Elevated WBC count Current Visit: No Status: Acute Code(s): D72.829 - ELEVATED WHITE BLOOD CELL COUNT, UNSPECIFIED SNOMED Code(s): 085813654 Plan: 1-Patient presented to hospital with multiple symptoms including increasing swelling to the left lower extremity in this patient who did have some redness and hard area to the left medial thigh however CT did not show any evidence of abscess 2-patient also have elevated liver enzymes however CT as well as ultrasound did not show any evidence of gallbladder stone or dilated CBD, surgery is following the patient 3-penicillin allergy that will limit the number of antibiotics safe to use 4-patient is afebrile and the patient white count has normalized swelling duration to the left thigh has decreased, patient continue with cefepime and monitor clinical course closely Dictation was produced using [employer] dictation software. please excuse any grammatical, word or spelling errors. Time with Patient: Less than 30
--- NOTE | 2023-08-06 15:22 | P.PN ---
Subjective Progress Note Date: 08/06/23 This is a pleasant 78-year-old female with medical history of asthma, diastolic heart failure, hypertension, heart catheterization, lymphoma. patient is a never smoker. Patient was recently admitted to the hospital for a perforated gastric ulcer where she underwent surgical repair. Patient has been at rehabilitation and states that since discharge she has been having lower back pain. This back pain is worse on the right with radiation over to the left lower back. Has worked up at the ER for a lumbar radiculopathy underwent an abdominal pelvis CT which reveals removal of the previous drainage catheter in the left upper abdomen, improved anasarca of the soft tissues, previous pleural effusions have essentially resolved, mild cardiomegaly, cirrhotic hepatic morphology, cholelithiasis versus sludge with no acute abnormality demonstrated in the limits of this unenhanced exam. Patient was noted to have gallstones or previous admission as well. There is moderate stool throughout the colon. Valentin mendez is noted to have an elevated white blood cell count of 25.0 on admission with a hemoglobin of 10.4, platelet count of 136. Her sodium level is 135, BUN of 74, creatinine of 1.59, total bilirubin is elevated at 3.0, AST of 105, ALT of 43 and an alk phos of 244. Her proBNP is elevated at 5000 patient does have significant lower extremity pitting edema which she states has been worsening over the last couple days. Urinalysis is negative. She is denying shortness of breath she is not having any chest pain she is not having any nausea vomiting or diarrhea. No urinary symptoms. Straight leg raise test does not make the lower back pain worse. Her right upper quadrant is significantly tender on manual palpation. She is concerned with her left lower extremity there is an hardened erythematous area on the inner aspect of her left thigh which is tender to touch. A CT of the lower extremity was completed showing a soft tissue edema and cellulitis throughout the left lower extremity. No focal fluid collection identified. There is no clear evidence of an acute osseous obstructive process. There is generalized osseous demineralization with multiple foci of lower attenuation seen primarily in the bones about the knee and the ankle of uncertain etiology. This could be reflective osteoarthritis with sequela of infectious process or metastasis less likely considerations. Clinical correlation with bone scan may be considered. Patient evaluated today in follow up; reports continued right flank pain. General surgery has evaluated the patient and recommended patient to undergo laproscopic cholecystectomy. Patient does state that she is also scheduled to undergo an EGD next month with Dr. Mariama Dawson for follow up for the perforated gastric ulcer. Patients lower extremity edema is improving and she continues with bilateral JACKIE wrap. Continues on IV lasix 40 mg q12. Patient has had negative 1.7 L of urine output overnight. Bilirubin and LFTs are improving. BUN 61.2 and creatinine of 1.7 today. WBC 21.79. 08/05/2023 Patient is evaluated in follow-up today resting in bed. S echocardiogram has been taken and pending at this time. He continues to report right flank pain as well as right upper quadrant abdominal discomfort. Patient is scheduled to undergo laparoscopic cholecystectomy tomorrow. Cardiology is following and patient continues on IV lasix 40 mg every 12 hours. Echocardiogram has been taken and pending at this time. Labs improving white blood cell count down to 11.86, hemoglobin 8.7, platelet count 126. Sodium 134, BUN 60, creatinine 1.33. proBNP improving down to 3174. Patient is considered moderate surgical risk due to congestive heart failure. Patient is on room air at this time. 08/06/2023 Patient is evaluated in follow up today. Patient has been cleared by cardiology to undergo cholecystectomy today. Continues on IV lasix 40 mg [id number]. BUN 51, creatinine 1.05. Continues to report right sided flank and abdominal pain. Review of Systems Constitutional: Denied any fatigue denied any fever. Cardio vascular: denied any chest pain, palpitations Gastrointestinal: denied any nausea, vomiting, diarrhea Reports right sided abdo florin pain. Pulmonary: Denied any shortness of breath cough Neurologic denied any new focal deficits All inpatient medications were reviewed and appropriate changes in these medications as dictated in the interval history and assessment and plan. PHYSICAL EXAMINATION: GENERAL: The patient is alert and oriented x3, not in any acute distress. Well developed, well nourished. HEENT: Pupils are round and equally reacting to light. EOMI. No scleral icterus. No conjunctival pallor. Normocephalic, atraumatic. No pharyngeal erythema. No thyromegaly. CARDIOVASCULAR: S1 and S2 present. No murmurs, rubs, or gallops. PULMONARY: Chest is clear to auscultation, no wheezing or crackles. ABDOMEN: Soft, RUQ tenderness, nondistended, normoactive bowel sounds. No palpable organomegaly. MUSCULOSKELETAL: No joint swelling or deformity. EXTREMITIES: No cyanosis, clubbing, or pedal edema. lower extremity edema non pitting. wrapped with jackie bandages. NEUROLOGICAL: Gross neurological examination did not reveal any focal deficits. SKIN: No rashes. Assessment and plan -Right upper quadrant abdominal pain with transaminitis and hyperbilirubinemia no evidence for biliary dilation, bilirubin and LFTs are improving. Patient has right sided flank pain and may have passed a gallstone. -Gallbladder sludge with recommendations for laproscopic cholecystectomy, cardiology has cleared for surgery patient is scheduled for lap tania today 08/06/23. -Recent hospitalization for perforated gastric ulcer status postsurgical repair -Lower extremity edema secondary to mild acute diastolic CHF exacerbation proBNP elevated at 5000 treated with IV lasix. Cardiology recommending to hold lasix for now and will determine lasix dosing tomorrow. Patient continues on farxiga. -Left thigh cellulitic changes with concern for sepsis remains on IV cefepime; ID following. White count slightly improved and will repeat labs in the AM. -History of paroxysmal atrial fibrillation anticoag with Eliquis which is now held for possible surgery. 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 Dr. Irwin MD I have performed a history and physical examination and medical decision making of this patient, discussed the same with the dictator, and agree with the dictators assessment and plan as written, documented as a scribe. Based on total visit time, I have performed more than 50% of this visit. Objective - Vital Signs Vital signs: Vital Signs Temp 97.6 F 08/06/23 12:59 Pulse 65 08/06/23 12:59 Resp 20 08/06/23 12:59 BP 137/71 08/06/23 12:59 Pulse Ox 100 08/06/23 12:59 FiO2 Intake & Output 08/05/23 08/06/23 08/06/23 18:59 06:59 18:59 Intake Total 1260 118 Output Total 1400 1600 850 Balance -140 -1482 -850 Weight 77.5 kg Intake: Oral 1260 118 Output: Urine 1400 1600 850 Other: Voiding Method External Catheter External Catheter External Catheter - Labs CBC & Chem 7: 08/06/23 07:10 08/06/23 07:10 Labs: Abnormal Lab Results - Last 24 Hours (Table) 08/05/23 08/05/23 08/06/23 Range/Units 05:47 17:18 07:10 RBC 2.79 L (3.80-5.40) m/uL Hgb 9.8 L (11.4-16.0) gm/dL Hct 31.2 L (34.0-46.0) % MCV 111.9 H (80.0-100.0) fL MCH 35.1 H (25.0-35.0) pg RDW 15.9 H (11.5-15.5) % Plt Count 136 L (150-450) k/uL Eosinophils # (Manual) 1.30 H (0-0.7) k/uL Macrocytosis Marked A Sodium (137-145) mmol/L Chloride (98-107) mmol/L Carbon Dioxide (22-30) mmol/L BUN (7-17) mg/dL Creatinine (0.52-1.04) mg/dL POC Glucose (mg/dL) 114 H (70-110) mg/dL Calcium (8.4-10.2) mg/dL NT-Pro-B Natriuret Pep 3174 H (0-450) pg/mL 08/06/23 Range/Units 07:10 RBC (3.80-5.40) m/uL Hgb (11.4-16.0) gm/dL Hct (34.0-46.0) % MCV (80.0-100.0) fL MCH (25.0-35.0) pg RDW (11.5-15.5) % Plt Count (150-450) k/uL Eosinophils # (Manual) (0-0.7) k/uL Macrocytosis Sodium 136 L (137-145) mmol/L Chloride 108 H (98-107) mmol/L Carbon Dioxide 21 L (22-30) mmol/L BUN 51 H (7-17) mg/dL Creatinine 1.05 H (0.52-1.04) mg/dL POC Glucose (mg/dL) (70-110) mg/dL Calcium 7.9 L (8.4-10.2) mg/dL NT-Pro-B Natriuret Pep (0-450) pg/mL Microbiology - Last 24 Hours (Table) 08/03/23 03:30 Blood Culture - Preliminary Blood Assessment and Plan Time with Patient: Less than 30
[2023-08-06] MEDS: LACTATED RINGERS 1,000 ML IV ONE ×3 (16:59→22:24)
[2023-08-06] MEDS: ONDANSETRON 4 MG/2 ML VIAL IVP PRN (17:01)
[2023-08-06 17:06] LABS: Glucose,Whole Blood 78 mg/dL (70-110)
[2023-08-06] MEDS: BUPIVACAINE (PF) 0.25% 30 ML VIAL SQ ONE (17:28)
[2023-08-06] MEDS: LIDOCAINE 2%-EPI 1:100,000 20 ML VIAL SQ ONE ×2 (18:24→18:50)
[2023-08-06] MEDS ORDERED: LIDOCAINE 1% INJ 10MG/ML (20 ML MDV) ONE (18:28)
[2023-08-06] MEDS ORDERED: ROCURONIUM 10 MG/ML (5 ML VIAL) IV ONE (18:28)
[2023-08-06] MEDS ORDERED: NEOSTIGMINE 1 MG/ML 10 ML VIAL ONE (18:28)
[2023-08-06] MEDS ORDERED: PHENYLEPHRINE 10 MG/ML VIAL ONE (18:28)
[2023-08-06] MEDS ORDERED: GLYCOPYRROLATE 0.2 MG/ML 2 ML VIAL ONE (18:28)
[2023-08-06] MEDS ORDERED: ePHEDrine 50 MG/ML 1 ML VIAL ONE (18:28)
[2023-08-06] MEDS ORDERED: PROPOFOL 10 MG/ML 20 ML VIAL IV ONE (18:28)
[2023-08-06] MEDS ORDERED: fentaNYL (PF) 50 MCG/ML 2 ML AMP ONE (18:28)
[2023-08-06] MEDS ORDERED: NALOXONE 0.4 MG/ML 1 ML VIAL IV PRN (19:17)
[2023-08-06] MEDS ORDERED: ONDANSETRON 4 MG/2 ML VIAL IVP PRN (19:17)
--- NOTE | 2023-08-06 19:17 | P.OP ---
Date of Procedure: 08/06/23 Preoperative Diagnosis: Cholecystitis Postoperative Diagnosis: Cholecystitis with abnormal hydropic gallbladder Cirrhotic liver Procedure(s) Performed: Laparoscopic cholecystectomy Anesthesia: GARY Surgeon: Srinath Nathan Estimated Blood Loss (ml): 10 Condition: stable Disposition: PACU Description of Procedure: The patient was placed on the operating table. The patient received a general endotracheal tube anesthesia. The patients abdomen was prepped and draped in the usual sterile fashion. Through an infraumbilical stab incision, the fascia of the anterior abdominal wall was grasped with a pair of Kochers and then the Veress needle was placed in the peritoneal cavity. Position of the Veress needle was confirmed with positive drop test. The abdomen was then insufflated. After adequate insufflation, the 10 mm trocar was placed in the peritoneal cavity. Following this the laparoscope was placed in the peritoneal cavity. The patient was placed in the head-up, right side up position and then a 5 mm trocar was placed in the right lateral and right subcostal position under direct visualization. A 8 mm trocar was placed in the epigastric position. The gallbladder appeared to be very large and hydropic. The liver was cirrhotic and enlarged. The gallbladder was grasped in the fundus and infundibulum. Traction on the gallbladder was placed in the lateral and the cephalad positions. The triangle of Calot was visualized.. The cystic duct was bluntly dissected until the union of the cystic duct and common bile duct was seen. A critical view of safety was achieved. The cystic duct was then divided and sealed with the Harmonic scissors. A PDS Endoloop was then placed throughout the cystic duct stump. The cystic artery divided and sealed with the Harmonic scissors. The gallbladder was then removed from the liver bed using Harmonic scissors. The gallbladder was then extracted through the epigastric port site. Operative field was checked for any bleeding spots and Harmonic scissors was used to coagulate the liver bed. The abdomen was irrigated. The trocars were removed. The skin was closed using interrupted 3-0 Vicryl suture. Dermabond dressing were applied. The patient tolerated the procedure well.
[2023-08-06 20:50] LABS: Glucose,Whole Blood 75 mg/dL (70-110)
[2023-08-06] MEDS: CEFEPIME 2 GM in SODIUM CHLORIDE 0.9% 100 ML IVPB SCH (22:20)
[2023-08-07 07:27] LABS: Glucose,Whole Blood 87 mg/dL (70-110)
[2023-08-07] MEDS: FUROSEMIDE 10 MG/ML 4 ML VIAL IV SCH (09:59)
--- NOTE | 2023-08-07 11:48 | P.PN ---
Subjective Progress Note Date: 08/07/23 History of Present Illness: The patient is an 78-year-old female who is seen for preoperative valuation pr ior to cholecystectomy. She has a known history of heart failure, bronchial asthma, hypertension. She has been followed by Dr. Gonzalez on a regular basis. She underwent cardiac catheterization in 2020 and had mild obstructive CAD. She presents with back discomfort as well is worsening peripheral edema, her NT proBNP was elevated. She denies any chest discomfort, dizziness or palpitations. She had some nausea but no abdominal pain. She denies any significant PND or orthopnea. She is limited in her physical activity and has dyspnea on exertion. She has a history of hypertension and a history of paroxysmal atrial fibrillation and has been anticoagulated. Her abdominal CT scan showed cholelithiasis versus large with resolution of her pleural effusion, her gallbladder ultrasound was suboptimal with a mobile echogenic material in the posterior gallbladder suggestive of sludge but no evidence to suggest acute cholecystitis. On presentation she had evidence to suggest possible cellulitis of the lower extremities. Medications: Eliquis 2.5 mg twice a day, torsemide 20 mg daily, metoprolol tartrate 25 mg twice a day, iron, Ventolin. She was started on IV Lasix following admission. She has been on cefepime for her infection. Labs: WBC 25,000 on admission with a hemoglobin of 10.4. BUN and creatinine 74 and 1.59, today 61 and 1.7. NT proBNP 5000. AST 71, ALT 36. Bilirubin 3.0 and subsequently 1.6. The patient has chronic bilirubin elevation. And her LFTs have been elevated on all her admissions. 08/04 Patient has been continued on IV Lasix and started on Farxiga yesterday. She states that she has been having significant urine output. She states her abdomen is a little bloated. She is planning on surgical intervention. She is not currently on home O2. Echocardiogram remains pending. 08/05 Patient appears stable today. She has been maintained on IV Lasix 40 mg every 12 hours. She has a negative fluid balance of 1981. She has less lower extremity edema today. Echocardiogram reveals EF of 50 to 55%, mild concentric left ventricular hypertrophy, moderate mitral regurgitation, moderate left atrial dilatation. Results of echocardiogram have been reviewed with the patient. 08/06 Yesterday, patient underwent laparoscopic cholecystectomy without any postpro cedure complications. Yesterday she received 1 dose of IV Lasix and afternoon dose was discontinued in preparation for surgery. This morning blood pressure 135/72, heart rate 70, pulse ox 98% on room air. Patient continues to have lower extremity edema for which IV Lasix will be resumed. Hester catheter was placed due to retention. She states she still has the same abdominal pain as prior to surgery. Repeat blood work will be ordered for tomorrow. Physical Examination: 78-year-old female, alert oriented no apparent distress, obese Head: Normocephalic. Eyes: Sclerae nonicteric. Neck: Good carotid upstroke, no bruit, no jugular venous distention. Lungs: Clear to auscultation. Heart: Regular rate and rhythm, S1-S2, no S3, no rub. Systolic ejection murmur Abdomen: Soft nontender, positive bowel sounds no organomegaly. Extremities: +1 edema, intact distal pulses. Sky wrap in place Impression: 1. Evidence of fluid overload with acute heart failure and preserved systolic function 2. Gallbladder sludge status post laparoscopic cholecystectomy 3. Back discomfort 4. Chronic kidney disease 5. Paroxysmal atrial fibrillation 6. Possible cellulitis Plan: Continue Farxiga Resume IV Lasix 40 mg daily Resume Eliquis 2.5 mg twice daily once cleared by general surgery Monitor FRANCISCO JAVIER, daily weights, electrolytes and renal function Nurse practitioner note has been reviewed, I agree with the documented findings and plan of care. Patient was seen and examined. Objective - Vital Signs Vital signs: Vital Signs Temp 97.6 F 08/07/23 07:23 Pulse 70 08/07/23 07:23 Resp 16 08/07/23 07:23 BP 135/72 08/07/23 07:23 Pulse Ox 98 08/07/23 07:23 FiO2 Intake & Output 08/06/23 08/07/23 08/07/23 18:59 06:59 18:59 Intake Total 800 422 Output Total 1450 1738 Balance -650 -1316 Weight 75.5 kg Intake: IV 800 200 Oral 222 Output: Urine 1450 1200 Straight 600 Post Void Residual 528 Estimated Blood Loss 10 Other: Voiding Method External Catheter Bedside Commode External Catheter - Labs CBC & Chem 7: 08/07/23 07:07 08/06/23 07:10 Labs: Abnormal Lab Results - Last 24 Hours (Table) 08/06/23 Range/Units 07:10 RBC 2.79 L (3.80-5.40) m/uL Hgb 9.8 L (11.4-16.0) gm/dL Hct 31.2 L (34.0-46.0) % MCV 111.9 H (80.0-100.0) fL MCH 35.1 H (25.0-35.0) pg RDW 15.9 H (11.5-15.5) % Plt Count 136 L (150-450) k/uL Eosinophils # (Manual) 1.30 H (0-0.7) k/uL Macrocytosis Marked A Microbiology - Last 24 Hours (Table) 08/03/23 03:30 Blood Culture - Preliminary Blood
[2023-08-07 11:50] LABS: Glucose,Whole Blood 94 mg/dL (70-110)
[2023-08-07 11:52] LABS: Basophils # (A) 0.03 X 10*3/uL (0.00-0.10); Basophils % (A) 0.4 %; Eosinophils # (A) 1.28 X 10*3/uL (0.04-0.35); Eosinophils % (A) 15.3 %; HCT 26.5 % (37.2-46.3); HGB 8.6 g/dL (12.0-15.0); Lymphocytes # (A) 1.45 X 10*3/uL (0.90-5.00); Lymphocytes % (A) 17.4 %; MCH 34.8 pg (27.0-32.0); MCHC 32.5 g/dL (32.0-37.0); MCV 107.3 FL (80.0-97.0); Mean Platelet Volume 9.7 FL (9.5-12.2); Monocytes # (A) 1.25 X 10*3/uL (0.20-1.00); NRBC Per 100 WBC 0.02 X 10*3/uL (0.00-0.01); Neutrophils # (A) 4.31 X 10*3/uL (1.80-7.70); Neutrophils % (A) 51.5 %; Platelet Count 138 X 10*3/uL (140-440); RBC 2.47 X 10*6/uL (4.10-5.20); RDW 16.8 % (11.5-14.5); WBC 8.35 X 10*3/uL (4.50-10.00)
[2023-08-07 12:50] LABS: ALT 38 U/L (8-44); AST 125 U/L (13-35); Albumin 2.3 g/dL (3.8-4.9); Albumin/Globulin Ratio 0.72 Ratio (1.60-3.17); Alkaline Phosphatase 186 U/L (41-126); Blood Urea Nitrogen 40.7 mg/dL (9.0-27.0); Calcium 8.1 mg/dL (8.7-10.3); Carbon Dioxide 22.8 mmol/L (21.6-31.8); Chloride 106 mmol/L (96-109); Globulin 3.2 g/dL (1.6-3.3); Glucose 95 mg/dL (70-110); Sodium 137 mmol/L (135-145); Total Bilirubin 1.8 mg/dL (0.3-1.2); Total Protein 5.5 g/dL (6.2-8.2)
--- NOTE | 2023-08-07 15:27 | P.PN ---
Subjective Progress Note Date: 08/07/23 This is a pleasant 78-year-old female with medical history of asthma, diastolic heart failure, hypertension, heart catheterization, lymphoma. patient is a never smoker. Patient was recently admitted to the hospital for a perforated gastric ulcer where she underwent surgical repair. Patient has been at rehabilitation and states that since discharge she has been having lower back pain. This back pain is worse on the right with radiation over to the left lower back. Has worked up at the ER for a lumbar radiculopathy underwent an abdominal pelvis CT which reveals removal of the previous drainage catheter in the left upper abdomen, improved anasarca of the soft tissues, previous pleural effusions have essentially resolved, mild cardiomegaly, cirrhotic hepatic morphology, cholelithiasis versus sludge with no acute abnormality demonstrated in the limits of this unenhanced exam. Patient was noted to have gallstones or previous admission as well. There is moderate stool throughout the colon. Valentin mendez is noted to have an elevated white blood cell count of 25.0 on admission with a hemoglobin of 10.4, platelet count of 136. Her sodium level is 135, BUN of 74, creatinine of 1.59, total bilirubin is elevated at 3.0, AST of 105, ALT of 43 and an alk phos of 244. Her proBNP is elevated at 5000 patient does have significant lower extremity pitting edema which she states has been worsening over the last couple days. Urinalysis is negative. She is denying shortness of breath she is not having any chest pain she is not having any nausea vomiting or diarrhea. No urinary symptoms. Straight leg raise test does not make the lower back pain worse. Her right upper quadrant is significantly tender on manual palpation. She is concerned with her left lower extremity there is an hardened erythematous area on the inner aspect of her left thigh which is tender to touch. A CT of the lower extremity was completed showing a soft tissue edema and cellulitis throughout the left lower extremity. No focal fluid collection identified. There is no clear evidence of an acute osseous obstructive process. There is generalized osseous demineralization with multiple foci of lower attenuation seen primarily in the bones about the knee and the ankle of uncertain etiology. This could be reflective osteoarthritis with sequela of infectious process or metastasis less likely considerations. Clinical correlation with bone scan may be considered. Patient evaluated today in follow up; reports continued right flank pain. General surgery has evaluated the patient and recommended patient to undergo laproscopic cholecystectomy. Patient does state that she is also scheduled to undergo an EGD next month with Dr. Mariama Dawson for follow up for the perforated gastric ulcer. Patients lower extremity edema is improving and she continues with bilateral JACKIE wrap. Continues on IV lasix 40 mg q12. Patient has had negative 1.7 L of urine output overnight. Bilirubin and LFTs are improving. BUN 61.2 and creatinine of 1.7 today. WBC 21.79. 08/05/2023 Patient is evaluated in follow-up today resting in bed. S echocardiogram has been taken and pending at this time. He continues to report right flank pain as well as right upper quadrant abdominal discomfort. Patient is scheduled to undergo laparoscopic cholecystectomy tomorrow. Cardiology is following and patient continues on IV lasix 40 mg every 12 hours. Echocardiogram has been taken and pending at this time. Labs improving white blood cell count down to 11.86, hemoglobin 8.7, platelet count 126. Sodium 134, BUN 60, creatinine 1.33. proBNP improving down to 3174. Patient is considered moderate surgical risk due to congestive heart failure. Patient is on room air at this time. 08/06/2023 Patient is evaluated in follow up today. Patient has been cleared by cardiology to undergo cholecystectomy today. Continues on IV lasix 40 mg [id number]. BUN 51, creatinine 1.05. Continues to report right sided flank and abdominal pain. 08/07/2023 Patient is evaluated today in follow-up. She is postoperative day #1 laparoscopic cholecystectomy due to a hydropic gallbladder. Patient reports right-sided abdominal pain however states that the pain to her right back is improved. Currently rating it about a 5 out of 10. She does report some increased shortness of breath with congestion. Patient has been resumed on IV Lasix daily. Echocardiogram showing normal LV size with EF of 50 to 58% with moderate MR and moderate left atrial dilatation. Total bilirubin today is 1.8. Blood cell count normal at 8.35, hemoglobin 9.6, MCV 100.3, BUN of 40, creatinine of 1.1. Dynamically she is stable. She was having issues with urinary retention postoperatively requiring placement of the indwelling Woods catheter. Review of Systems Constitutional: Denied any fatigue denied any fever. Cardio vascular: denied any chest pain, palpitations Gastrointestinal: denied any nausea, vomiting, diarrhea Reports right sided abdominal pain. Pulmonary: Denied any shortness of breath cough Neurologic denied any new focal deficits All inpatient medications were reviewed and appropriate changes in these medications as dictated in the interval history and assessment and plan. PHYSICAL EXAMINATION: GENERAL: The patient is alert and oriented x3, not in any acute distress. Well developed, well nourished. HEENT: Pupils are round and equally reacting to light. EOMI. No scleral icterus. No conjunctival pallor. Normocephalic, atraumatic. No pharyngeal erythema. No thyromegaly. CARDIOVASCULAR: S1 and S2 present. No murmurs, rubs, or gallops. PULMONARY: Chest is clear to auscultation, no wheezing or crackles. ABDOMEN: Soft, RUQ tenderness, nondistended, normoactive bowel sounds. No palpable organomegaly. Post surgical abdomen. MUSCULOSKELETAL: No joint swelling or deformity. EXTREMITIES: No cyanosis, clubbing, or pedal edema. lower extremity edema non pitting. wrapped with jackie bandages. NEUROLOGICAL: Gross neurological examination did not reveal any focal deficits. SKIN: No rashes. Assessment and plan -Right upper quadrant abdominal pain with transaminitis and hyperbilirubinemia no evidence for biliary dilation, bilirubin and LFTs are improving. Patient has right sided flank pain and may have passed a gallstone. -Gallbladder sludge with recommendations for laproscopic cholecystectomy, patient is now postoperative day #1 found to have a hydropic gallbladder. -Recent hospitalization for perforated gastric ulcer status postsurgical repair -Lower extremity edema secondary to mild acute diastolic CHF exacerbation proBNP elevated at 5000 treated with IV lasix which has been resumed postoperatively. Patient continues on farxiga. -Left thigh cellulitic changes with concern for sepsis remains on IV cefepime; ID following. -History of paroxysmal atrial fibrillation anticoag with Eliquis which is now held for possible surgery. 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 Continue with indwelling woods catheter and start flomax. Can do voiding trial tomorrow. Resumed on IV lasix daily. Recommend for strict intake and output monitoring and repeat labs in the AM. The impression and plan of care has been dictated by Gudelia Green Nurse Practitioner as directed. Dr. Irwin MD I have performed a history and physical examination and medical decision making of this patient, discussed the same with the dictator, and agree with the dictators assessment and plan as written, documented as a scribe. Based on total visit time, I have performed more than 50% of this visit. Objective - Vital Signs Vital signs: Vital Signs Temp 98.2 F 08/07/23 11:45 Pulse 66 08/07/23 11:45 Resp 16 08/07/23 11:45 BP 128/70 08/07/23 11:45 Pulse Ox 98 08/07/23 11:45 FiO2 Intake & Output 08/06/23 08/07/23 08/07/23 18:59 06:59 18:59 Intake Total 800 422 Output Total 1450 1738 600 Balance -650 -1316 -600 Weight 75.5 kg Intake: IV 800 200 Oral 222 Output: Urine 1450 1200 600 Straight 600 Post Void Residual 528 Estimated Blood Loss 10 Other: Voiding Method External Catheter Bedside Commode Bedside Commode External Catheter External Catheter - Labs CBC & Chem 7: 08/07/23 07:07 08/07/23 07:07 Labs: Abnormal Lab Results - Last 24 Hours (Table) 08/07/23 08/07/23 Range/Units 07:07 07:07 RBC 2.47 L (4.10-5.20) X 10*6/uL Hgb 8.6 L (12.0-15.0) g/dL Hct 26.5 L (37.2-46.3) % MCV 107.3 H (80.0-97.0) FL MCH 34.8 H (27.0-32.0) pg RDW 16.8 H (11.5-14.5) % Plt Count 138 L (140-440) X 10*3/uL Monocytes # 1.25 H (0.20-1.00) X 10*3/uL Eosinophils # 1.28 H (0.04-0.35) X 10*3/uL NRBC/100 WBC Diff 0.02 H (0.00-0.01) X 10*3/uL BUN 40.7 H (9.0-27.0) mg/dL Est GFR (CKD-EPI) 51 L (>=60) BUN/Creatinine Ratio 37.00 H (12.00-20.00) Ratio Calcium 8.1 L (8.7-10.3) mg/dL Total Bilirubin 1.8 H (0.3-1.2) mg/dL AST 125 H (13-35) U/L Alkaline Phosphatase 186 H (41-126) U/L Total Protein 5.5 L (6.2-8.2) g/dL Albumin 2.3 L (3.8-4.9) g/dL Albumin/Globulin Ratio 0.72 L (1.60-3.17) Ratio Microbiology - Last 24 Hours (Table) 08/03/23 03:30 Blood Culture - Preliminary Blood Assessment and Plan Time with Patient: Less than 30
--- NOTE | 2023-08-07 15:34 | P.PN ---
Subjective Progress Note Date: 08/07/23 CHIEF COMPLAINT: Cholecystitis HISTORY OF PRESENT ILLNESS: Patient postop day #1 status post laparoscopic cholecystectomy. She does report some soreness at the incision sites. She denies any nausea or vomiting. Afebrile. WBC 8.35 Hgb 8.6 platelets 138 total bilirubin 1.8 AST 125 ALT 38 alk phos 186. AST and alk phos and total bilirubin have elevated slightly PHYSICAL EXAM: VITAL SIGNS: Reviewed. GENERAL: Well-developed in no acute distress. ABDOMEN: Soft. Mildly distended. Incision sites clean dry and intact NEUROLOGIC: Alert and oriented. Cranial nerves II through XII grossly intact. ASSESSMENT: 1. Cholecystitis with abnormal hydropic gallbladder 2. Cirrhotic liver 3. Acute CHF exacerbation followed by cardiology PLAN: -Continue regular diet -Continue antibiotics -Repeat LFTs in a.m. -Okay to resume Eliquis tomorrow from surgical standpoint Physician Gas Dispenser note has been reviewed by physician. Signing provider agrees with the documented findings, assessment, and plan of care. Objective - Vital Signs Vital signs: Vital Signs Temp 98.2 F 08/07/23 11:45 Pulse 66 08/07/23 11:45 Resp 16 08/07/23 11:45 BP 128/70 08/07/23 11:45 Pulse Ox 98 08/07/23 11:45 FiO2 Intake & Output 08/06/23 08/07/23 08/07/23 18:59 06:59 18:59 Intake Total 800 422 Output Total 1450 1738 600 Balance -650 -1316 -600 Weight 75.5 kg Intake: IV 800 200 Oral 222 Output: Urine 1450 1200 600 Straight 600 Post Void Residual 528 Estimated Blood Loss 10 Other: Voiding Method External Catheter Bedside Commode Bedside Commode External Catheter External Catheter - Labs CBC & Chem 7: 08/07/23 07:07 08/07/23 07:07 Labs: Abnormal Lab Results - Last 24 Hours (Table) 08/07/23 08/07/23 Range/Units 07:07 07:07 RBC 2.47 L (4.10-5.20) X 10*6/uL Hgb 8.6 L (12.0-15.0) g/dL Hct 26.5 L (37.2-46.3) % MCV 107.3 H (80.0-97.0) FL MCH 34.8 H (27.0-32.0) pg RDW 16.8 H (11.5-14.5) % Plt Count 138 L (140-440) X 10*3/uL Monocytes # 1.25 H (0.20-1.00) X 10*3/uL Eosinophils # 1.28 H (0.04-0.35) X 10*3/uL NRBC/100 WBC Diff 0.02 H (0.00-0.01) X 10*3/uL BUN 40.7 H (9.0-27.0) mg/dL Est GFR (CKD-EPI) 51 L (>=60) BUN/Creatinine Ratio 37.00 H (12.00-20.00) Ratio Calcium 8.1 L (8.7-10.3) mg/dL Total Bilirubin 1.8 H (0.3-1.2) mg/dL AST 125 H (13-35) U/L Alkaline Phosphatase 186 H (41-126) U/L Total Protein 5.5 L (6.2-8.2) g/dL Albumin 2.3 L (3.8-4.9) g/dL Albumin/Globulin Ratio 0.72 L (1.60-3.17) Ratio Microbiology - Last 24 Hours (Table) 08/03/23 03:30 Blood Culture - Preliminary Blood
[2023-08-07 17:00] LABS: Glucose,Whole Blood 100 mg/dL (70-110)
[2023-08-07] MEDS: TAMSULOSIN 0.4 MG CAP.ER.24H PO SCH (17:41)
[2023-08-07 20:32] LABS: Glucose,Whole Blood 103 mg/dL (70-110)
[2023-08-07] MEDS: HYDROcodone/APAP 5-325MG 1 EACH TAB PO PRN (21:51)
--- NOTE | 2023-08-07 23:51 | P.PN ---
Subjective Progress Note Date: 08/07/23 Principal diagnosis: Reason for follow-up is left thigh and leg cellulitis Patient is a 78-year-old female with a past medical history significant for hypertension heart failure asthma heart failure lymphoma, presenting to the hospital with increasing swelling and redness to left lower extremity has been diagnosed with the cellulitis. On today's evaluation that is 08/07/2023,the patient denies any fever or any chills, patient is breathing comfortably on room air, the patient denies chest pain shortness of breath and did have occasional cough, patient denies nausea vomiting however complaining of some abdominal discomfort from surgery yesterday swelling or redness to the left leg has decreased. Patient white count normal at 8.35 creatinine is 1.1 blood cultures so far negative Objective - Vital Signs Vital signs: Vital Signs Temp 98.2 F 08/07/23 11:45 Pulse 66 08/07/23 11:45 Resp 16 08/07/23 11:45 BP 128/70 08/07/23 11:45 Pulse Ox 98 08/07/23 11:45 FiO2 Intake & Output 08/06/23 08/07/23 08/07/23 18:59 06:59 18:59 Intake Total 800 422 Output Total 1450 1738 600 Balance -650 -1316 -600 Weight 75.5 kg Intake: IV 800 200 Oral 222 Output: Urine 1450 1200 600 Straight 600 Post Void Residual 528 Estimated Blood Loss 10 Other: Voiding Method External Catheter Bedside Commode External Catheter - Exam GENERAL DESCRIPTION: An elderly female lying in bed in no distress RESPIRATORY SYSTEM: Unlabored breathing , decreased breath sounds at bases HEART: S1 S2 regular rate and rhythm , ABDOMEN: Soft , no tenderness EXTREMITIES: Patient left thigh and leg swelling and redness slightly decreased - Labs CBC & Chem 7: 08/07/23 07:07 08/07/23 07:07 Labs: Abnormal Lab Results - Last 24 Hours (Table) 08/07/23 Range/Units 07:07 RBC 2.47 L (4.10-5.20) X 10*6/uL Hgb 8.6 L (12.0-15.0) g/dL Hct 26.5 L (37.2-46.3) % MCV 107.3 H (80.0-97.0) FL MCH 34.8 H (27.0-32.0) pg RDW 16.8 H (11.5-14.5) % Plt Count 138 L (140-440) X 10*3/uL Monocytes # 1.25 H (0.20-1.00) X 10*3/uL Eosinophils # 1.28 H (0.04-0.35) X 10*3/uL NRBC/100 WBC Diff 0.02 H (0.00-0.01) X 10*3/uL Microbiology - Last 24 Hours (Table) 08/03/23 03:30 Blood Culture - Preliminary Blood Assessment and Plan (1) Left leg cellulitis Current Visit: Yes Status: Acute Code(s): L03.116 - CELLULITIS OF LEFT LOWER LIMB SNOMED Code(s): 99460576207988421 (2) Allergy to penicillin Current Visit: No Status: Acute Code(s): Z88.0 - ALLERGY STATUS TO PENICILLIN SNOMED Code(s): 91885334 (3) Elevated WBC count Current Visit: Yes Status: Acute Code(s): D72.829 - ELEVATED WHITE BLOOD CELL COUNT, UNSPECIFIED SNOMED Code(s): 394871650 Plan: 1-Patient presented to hospital with multiple symptoms including increasing swelling to the left lower extremity in this patient who did have some redness and hard area to the left medial thigh however CT did not show any evidence of abscess 2-patient also have elevated liver enzymes however CT as well as ultrasound did not show any evidence of gallbladder stone or dilated CBD, patient is status postcholecystectomy completed on 08/06/2023 3--patient is afebrile and the patient white count has normalized, the patient swelling and induration the left thigh has decreased, patient continue with cefepime while inpatient will transition to oral antibiotics on discharge Dictation was produced using [employer] dictation software. please excuse any grammatical, word or spelling errors.
[2023-08-08 07:48] LABS: Glucose,Whole Blood 108 mg/dL (70-110)
[2023-08-08 08:49] LABS: Magnesium 2.1 mg/dL (1.5-2.4)
[2023-08-08 08:53] LABS: ALT 41 U/L (8-44); AST 110 U/L (13-35); Albumin 2.3 g/dL (3.8-4.9); Albumin/Globulin Ratio 0.72 Ratio (1.60-3.17); Alkaline Phosphatase 184 U/L (41-126); BUN/Creat Ratio 30.33 Ratio (12.00-20.00); Blood Urea Nitrogen 36.4 mg/dL (9.0-27.0); Calcium 8.3 mg/dL (8.7-10.3); Carbon Dioxide 25.5 mmol/L (21.6-31.8); Chloride 104 mmol/L (96-109); Globulin 3.2 g/dL (1.6-3.3); Glucose 111 mg/dL (70-110); Potassium 4.3 mmol/L (3.5-5.5); Sodium 135 mmol/L (135-145); Total Protein 5.5 g/dL (6.2-8.2)
[2023-08-08] MEDS: SPIRONOLACTONE 25 MG TAB PO SCH (10:34)
--- NOTE | 2023-08-08 11:25 | P.PN ---
Subjective Progress Note Date: 08/08/23 History of Present Illness: The patient is an 78-year-old female who is seen for preoperative valuation pr ior to cholecystectomy. She has a known history of heart failure, bronchial asthma, hypertension. She has been followed by Dr. Gonzalez on a regular basis. She underwent cardiac catheterization in 2020 and had mild obstructive CAD. She presents with back discomfort as well is worsening peripheral edema, her NT proBNP was elevated. She denies any chest discomfort, dizziness or palpitations. She had some nausea but no abdominal pain. She denies any significant PND or orthopnea. She is limited in her physical activity and has dyspnea on exertion. She has a history of hypertension and a history of paroxysmal atrial fibrillation and has been anticoagulated. Her abdominal CT scan showed cholelithiasis versus large with resolution of her pleural effusion, her gallbladder ultrasound was suboptimal with a mobile echogenic material in the posterior gallbladder suggestive of sludge but no evidence to suggest acute cholecystitis. On presentation she had evidence to suggest possible cellulitis of the lower extremities. Medications: Eliquis 2.5 mg twice a day, torsemide 20 mg daily, metoprolol tartrate 25 mg twice a day, iron, Ventolin. She was started on IV Lasix following admission. She has been on cefepime for her infection. Labs: WBC 25,000 on admission with a hemoglobin of 10.4. BUN and creatinine 74 and 1.59, today 61 and 1.7. NT proBNP 5000. AST 71, ALT 36. Bilirubin 3.0 and subsequently 1.6. The patient has chronic bilirubin elevation. And her LFTs have been elevated on all her admissions. 08/04 Patient has been continued on IV Lasix and started on Farxiga yesterday. She states that she has been having significant urine output. She states her abdomen is a little bloated. She is planning on surgical intervention. She is not currently on home O2. Echocardiogram remains pending. 08/05 Patient appears stable today. She has been maintained on IV Lasix 40 mg every 12 hours. She has a negative fluid balance of 1981. She has less lower extremity edema today. Echocardiogram reveals EF of 50 to 55%, mild concentric left ventricular hypertrophy, moderate mitral regurgitation, moderate left atrial dilatation. Results of echocardiogram have been reviewed with the patient. 08/06 Yesterday, patient underwent laparoscopic cholecystectomy without any postpro cedure complications. Yesterday she received 1 dose of IV Lasix and afternoon dose was discontinued in preparation for surgery. This morning blood pressure 135/72, heart rate 70, pulse ox 98% on room air. Patient continues to have lower extremity edema for which IV Lasix will be resumed. Hester catheter was placed due to retention. She states she still has the same abdominal pain as prior to surgery. Repeat blood work will be ordered for tomorrow. 08/08/2023 S/p laparoscopic cholecystectomy. Abdomen is distended mildly tender. 2+ pitting edema up to knee level. Good urine output, creatinine is stable at 1.2. Physical Examination: 78-year-old female, alert oriented no apparent distress, obese Head: Normocephalic. Eyes: Sclerae nonicteric. Neck: Good carotid upstroke, no bruit, no jugular venous distention. Lungs: Clear to auscultation. Heart: Regular rate and rhythm, S1-S2, no S3, no rub. Systolic ejection murmur Abdomen: Soft nontender, positive bowel sounds no organomegaly. Extremities: +1 edema, intact distal pulses. Sky wrap in place Impression: 1. Evidence of fluid overload with acute heart failure and preserved systolic function. Acute HFpEF exacerbation 2. Gallbladder sludge status post laparoscopic cholecystectomy 3. Back discomfort 4. Chronic kidney disease 5. Paroxysmal atrial fibrillation 6. Possible cellulitis Plan: Increase Lasix to 40 mg IV twice daily And Aldactone 12.5 mg daily. Uptitrate dose if potassium and renal function is stable Once patient's oral intake improves and patient is passing gas, will start Farxiga. Hold Farxiga until then Resume Eliquis 2.5 mg twice daily Monitor FRANCISCO JAVIER, daily weights, electrolytes and renal function Patient will need 1-2 more days of IV diuretics. Will reevaluate and will intensify her oral diuretic regimen prior to her discharge Objective - Vital Signs Vital signs: Vital Signs Temp 97.6 F 08/08/23 07:45 Pulse 67 08/08/23 07:45 Resp 16 08/08/23 07:45 BP 126/67 08/08/23 07:45 Pulse Ox 99 08/08/23 07:45 FiO2 Intake & Output 08/07/23 08/08/23 08/08/23 18:59 06:59 18:59 Output Total 1725 500 Balance -1725 -500 Weight 76.5 kg Output: Urine 1725 500 Other: Voiding Method Bedside Commode Indwelling Catheter Indwelling Catheter External Catheter - Labs CBC & Chem 7: 08/07/23 07:07 08/08/23 05:46 Labs: Abnormal Lab Results - Last 24 Hours (Table) 08/07/23 08/07/23 08/08/23 Range/Units 07:07 07:07 05:46 RBC 2.47 L (4.10-5.20) X 10*6/uL Hgb 8.6 L (12.0-15.0) g/dL Hct 26.5 L (37.2-46.3) % MCV 107.3 H (80.0-97.0) FL MCH 34.8 H (27.0-32.0) pg RDW 16.8 H (11.5-14.5) % Plt Count 138 L (140-440) X 10*3/uL Monocytes # 1.25 H (0.20-1.00) X 10*3/uL Eosinophils # 1.28 H (0.04-0.35) X 10*3/uL NRBC/100 WBC Diff 0.02 H (0.00-0.01) X 10*3/uL BUN 40.7 H 36.4 H (9.0-27.0) mg/dL Est GFR (CKD-EPI) 51 L 46 L (>=60) BUN/Creatinine Ratio 37.00 H 30.33 H (12.00-20.00) Ratio Glucose 111 H (70-110) mg/dL Calcium 8.1 L 8.3 L (8.7-10.3) mg/dL Total Bilirubin 1.8 H 2.0 H (0.3-1.2) mg/dL AST 125 H 110 H (13-35) U/L Alkaline Phosphatase 186 H 184 H (41-126) U/L Total Protein 5.5 L 5.5 L (6.2-8.2) g/dL Albumin 2.3 L 2.3 L (3.8-4.9) g/dL Albumin/Globulin Ratio 0.72 L 0.72 L (1.60-3.17) Ratio
[2023-08-08 12:09] LABS: Glucose,Whole Blood 114 mg/dL (70-110)
--- NOTE | 2023-08-08 13:14 | P.PN ---
Subjective Progress Note Date: 08/08/23 CHIEF COMPLAINT: Cholecystitis HISTORY OF PRESENT ILLNESS: Patient postop day #2 status post laparoscopic cholecystectomy. Patient complains of right-sided abdominal pain. Pain medication is helping. She denies any nausea or vomiting. She is having flatus. She has been up and ambulating. She does report some soreness at the incision sites. She denies any nausea or vomiting. Afebrile. total bili 2.0 AST 110 ALT 41 Alk phos 184. Cardiology did increase patient's IV Lasix PHYSICAL EXAM: VITAL SIGNS: Reviewed. GENERAL: Well-developed in no acute distress. ABDOMEN: Soft. Mildly distended. Incision sites clean dry and intact NEUROLOGIC: Alert and oriented. Cranial nerves II through XII grossly intact. ASSESSMENT: 1. Cholecystitis with abnormal hydropic gallbladder 2. Cirrhotic liver 3. Acute CHF exacerbation followed by cardiology PLAN: -Continue regular diet -Continue antibiotics per ID service -Continue pain management -Encourage patient to use incentive spirometer -Encourage patient ambulate -Okay to resume [employer] Software [employer] C note has been reviewed by physician. Signing provider agrees with the documented findings, assessment, and plan of care. Objective - Vital Signs Vital signs: Vital Signs Temp 97.5 F L 08/08/23 12:05 Pulse 60 08/08/23 12:05 Resp 16 08/08/23 12:05 BP 92/55 08/08/23 12:05 Pulse Ox 99 08/08/23 12:05 FiO2 Intake & Output 08/07/23 08/08/23 08/08/23 18:59 06:59 18:59 Output Total 1725 500 Balance -1725 -500 Weight 76.5 kg Output: Urine 1725 500 Other: Voiding Method Bedside Commode Indwelling Catheter Indwelling Catheter External Catheter - Labs CBC & Chem 7: 08/07/23 07:07 08/08/23 05:46 Labs: Abnormal Lab Results - Last 24 Hours (Table) 08/08/23 08/08/23 Range/Units 05:46 12:08 BUN 36.4 H (9.0-27.0) mg/dL Est GFR (CKD-EPI) 46 L (>=60) BUN/Creatinine Ratio 30.33 H (12.00-20.00) Ratio Glucose 111 H (70-110) mg/dL POC Glucose (mg/dL) 114 H (70-110) mg/dL Calcium 8.3 L (8.7-10.3) mg/dL Total Bilirubin 2.0 H (0.3-1.2) mg/dL AST 110 H (13-35) U/L Alkaline Phosphatase 184 H (41-126) U/L Total Protein 5.5 L (6.2-8.2) g/dL Albumin 2.3 L (3.8-4.9) g/dL Albumin/Globulin Ratio 0.72 L (1.60-3.17) Ratio Microbiology - Last 24 Hours (Table) 08/03/23 03:30 Blood Culture - Final Blood
[2023-08-08] MEDS: APIXABAN 5 MG TAB PO SCH (13:25)
--- NOTE | 2023-08-08 15:28 | P.PN ---
Subjective Progress Note Date: 08/08/23 Principal diagnosis: Reason for follow-up is left thigh and leg cellulitis Patient is a 78-year-old female with a past medical history significant for hypertension heart failure asthma heart failure lymphoma, presenting to the hospital with increasing swelling and redness to left lower extremity has been diagnosed with the cellulitis. On today's evaluation that is 08/08/2023,the patient remains to be afebrile, patient is on room air not requiring supplemental oxygen and denies any shortness of breath no chest pain or cough.Patient denies having any nausea or vomiting, has been complaining of mostly pain to the right upper abdominal area and no diarrhea overall swelling to the left lower extremity has decreased in intensity. Patient did have a creatinine 1.2 white count was normal 8.35 as of yesterday culture has been negative Objective - Vital Signs Vital signs: Vital Signs Temp 97.5 F L 08/08/23 12:05 Pulse 60 08/08/23 12:05 Resp 16 08/08/23 12:05 BP 92/55 08/08/23 12:05 Pulse Ox 99 08/08/23 12:05 FiO2 Intake & Output 08/07/23 08/08/23 08/08/23 18:59 06:59 18:59 Output Total 1725 500 Balance -1725 -500 Weight 76.5 kg Output: Urine 1725 500 Other: Voiding Method Bedside Commode Indwelling Catheter Indwelling Catheter External Catheter - Exam GENERAL DESCRIPTION: An elderly female lying in bed in no distress RESPIRATORY SYSTEM: Unlabored breathing , decreased breath sounds at bases HEART: S1 S2 regular rate and rhythm , ABDOMEN: Soft , no tenderness EXTREMITIES: Patient left thigh and leg swelling and redness slightly decreased - Labs CBC & Chem 7: 08/07/23 07:07 08/08/23 05:46 Labs: Abnormal Lab Results - Last 24 Hours (Table) 08/08/23 08/08/23 Range/Units 05:46 12:08 BUN 36.4 H (9.0-27.0) mg/dL Est GFR (CKD-EPI) 46 L (>=60) BUN/Creatinine Ratio 30.33 H (12.00-20.00) Ratio Glucose 111 H (70-110) mg/dL POC Glucose (mg/dL) 114 H (70-110) mg/dL Calcium 8.3 L (8.7-10.3) mg/dL Total Bilirubin 2.0 H (0.3-1.2) mg/dL AST 110 H (13-35) U/L Alkaline Phosphatase 184 H (41-126) U/L Total Protein 5.5 L (6.2-8.2) g/dL Albumin 2.3 L (3.8-4.9) g/dL Albumin/Globulin Ratio 0.72 L (1.60-3.17) Ratio Microbiology - Last 24 Hours (Table) 08/03/23 03:30 Blood Culture - Final Blood Assessment and Plan (1) Left leg cellulitis Current Visit: Yes Status: Acute Code(s): L03.116 - CELLULITIS OF LEFT LOWER LIMB SNOMED Code(s): 63028099732487915 (2) Allergy to penicillin Current Visit: No Status: Acute Code(s): Z88.0 - ALLERGY STATUS TO PENICILLIN SNOMED Code(s): 11031648 (3) Elevated WBC count Current Visit: Yes Status: Acute Code(s): D72.829 - ELEVATED WHITE BLOOD CELL COUNT, UNSPECIFIED SNOMED Code(s): 066617164 Plan: 1-Patient presented to hospital with multiple symptoms including increasing swelling to the left lower extremity in this patient who did have some redness and hard area to the left medial thigh however CT did not show any evidence of abscess 2-patient also have elevated liver enzymes however CT as well as ultrasound did not show any evidence of gallbladder stone or dilated CBD, patient is status postcholecystectomy completed on 08/06/2023 3--patient is afebrile and the patient white count has normalized, the patient swelling and induration the left thigh has decreased in intensity, 4-patient continue with cefepime while inpatient will transition to oral Ceftin on discharge Dictation was produced using [employer] dictation software. please excuse any grammatical, word or spelling errors. Time with Patient: Less than 30
--- NOTE | 2023-08-08 16:13 | P.PN ---
Subjective Progress Note Date: 08/08/23 This is a pleasant 78-year-old female with medical history of asthma, diastolic heart failure, hypertension, heart catheterization, lymphoma. patient is a never smoker. Patient was recently admitted to the hospital for a perforated gastric ulcer where she underwent surgical repair. Patient has been at rehabilitation and states that since discharge she has been having lower back pain. This back pain is worse on the right with radiation over to the left lower back. Has worked up at the ER for a lumbar radiculopathy underwent an abdominal pelvis CT which reveals removal of the previous drainage catheter in the left upper abdomen, improved anasarca of the soft tissues, previous pleural effusions have essentially resolved, mild cardiomegaly, cirrhotic hepatic morphology, cholelithiasis versus sludge with no acute abnormality demonstrated in the limits of this unenhanced exam. Patient was noted to have gallstones or previous admission as well. There is moderate stool throughout the colon. Valentin mendez is noted to have an elevated white blood cell count of 25.0 on admission with a hemoglobin of 10.4, platelet count of 136. Her sodium level is 135, BUN of 74, creatinine of 1.59, total bilirubin is elevated at 3.0, AST of 105, ALT of 43 and an alk phos of 244. Her proBNP is elevated at 5000 patient does have significant lower extremity pitting edema which she states has been worsening over the last couple days. Urinalysis is negative. She is denying shortness of breath she is not having any chest pain she is not having any nausea vomiting or diarrhea. No urinary symptoms. Straight leg raise test does not make the lower back pain worse. Her right upper quadrant is significantly tender on manual palpation. She is concerned with her left lower extremity there is an hardened erythematous area on the inner aspect of her left thigh which is tender to touch. A CT of the lower extremity was completed showing a soft tissue edema and cellulitis throughout the left lower extremity. No focal fluid collection identified. There is no clear evidence of an acute osseous obstructive process. There is generalized osseous demineralization with multiple foci of lower attenuation seen primarily in the bones about the knee and the ankle of uncertain etiology. This could be reflective osteoarthritis with sequela of infectious process or metastasis less likely considerations. Clinical correlation with bone scan may be considered. Patient evaluated today in follow up; reports continued right flank pain. General surgery has evaluated the patient and recommended patient to undergo laproscopic cholecystectomy. Patient does state that she is also scheduled to undergo an EGD next month with Dr. Mariama Dawson for follow up for the perforated gastric ulcer. Patients lower extremity edema is improving and she continues with bilateral SKY wrap. Continues on IV lasix 40 mg q12. Patient has had negative 1.7 L of urine output overnight. Bilirubin and LFTs are improving. BUN 61.2 and creatinine of 1.7 today. WBC 21.79. 08/05/2023 Patient is evaluated in follow-up today resting in bed. S echocardiogram has been taken and pending at this time. He continues to report right flank pain as well as right upper quadrant abdominal discomfort. Patient is scheduled to undergo laparoscopic cholecystectomy tomorrow. Cardiology is following and patient continues on IV lasix 40 mg every 12 hours. Echocardiogram has been taken and pending at this time. Labs improving white blood cell count down to 11.86, hemoglobin 8.7, platelet count 126. Sodium 134, BUN 60, creatinine 1.33. proBNP improving down to 3174. Patient is considered moderate surgical risk due to congestive heart failure. Patient is on room air at this time. 08/06/2023 Patient is evaluated in follow up today. Patient has been cleared by cardiology to undergo cholecystectomy today. Continues on IV lasix 40 mg [id number]. BUN 51, creatinine 1.05. Continues to report right sided flank and abdominal pain. 08/07/2023 Patient is evaluated today in follow-up. She is postoperative day #1 laparoscopic cholecystectomy due to a hydropic gallbladder. Patient reports right-sided abdominal pain however states that the pain to her right back is improved. Currently rating it about a 5 out of 10. She does report some increased shortness of breath with congestion. Patient has been resumed on IV Lasix daily. Echocardiogram showing normal LV size with EF of 50 to 58% with moderate MR and moderate left atrial dilatation. Total bilirubin today is 1.8. Blood cell count normal at 8.35, hemoglobin 9.6, MCV 100.3, BUN of 40, creatinine of 1.1. Dynamically she is stable. She was having issues with urinary retention postoperatively requiring placement of the indwelling Woods catheter. 08/08/2023 Patient is evaluated today in follow-up she is postoperative day #2 laparoscopic cholecystectomy with findings of a hydropic gallbladder. Patient states that her right side abdominal discomfort has significantly improved she is mostly reporting incisional pain at this time. Her lower extremity edema has improved as well she is requesting a break from the Sky wrap's which were taken off. She does continue on IV Lasix which has been increased to twice a day by cardiology. She is currently reporting no shortness of breath her lungs are clear and she is currently on room air at this time. She does have a mildly distended abdomen with normal active bowel sounds. She is slightly tympanic postsurgical I recommended to increase her activity level as tolerated. She has not had a bowel movement yet. Her blood work today reveals a BUN of 36.4, creatinine of 1.2, bilirubin level of 2.0, LFTs remain mildly elevated. Review of Systems Constitutional: Denied any fatigue denied any fever. Cardio vascular: denied any chest pain, palpitations Gastrointestinal: denied any nausea, vomiting, diarrhea Reports right sided abdominal pain. Pulmonary: Denied any shortness of breath cough Neurologic denied any new focal deficits All inpatient medications were reviewed and appropriate changes in these medic ations as dictated in the interval history and assessment and plan. PHYSICAL EXAMINATION: GENERAL: The patient is alert and oriented x3, not in any acute distress. Well developed, well nourished. HEENT: Pupils are round and equally reacting to light. EOMI. No scleral icterus. No conjunctival pallor. Normocephalic, atraumatic. No pharyngeal erythema. No thyromegaly. CARDIOVASCULAR: S1 and S2 present. No murmurs, rubs, or gallops. PULMONARY: Chest is clear to auscultation, no wheezing or crackles. ABDOMEN: Soft, RUQ tenderness, mildly distended, normoactive bowel sounds. No palpable organomegaly. Post surgical abdomen. Laparoscopic incisions are approximated with no redness or drainage noted. MUSCULOSKELETAL: No joint swelling or deformity. EXTREMITIES: No cyanosis, clubbing, or pedal edema. lower extremity edema non pitting. wrapped with sky bandages. NEUROLOGICAL: Gross neurological examination did not reveal any focal deficits. SKIN: No rashes. Assessment and plan -Right upper quadrant abdominal pain with transaminitis and hyperbilirubinemia no evidence for biliary dilation, bilirubin and LFTs are improving. Patient has right sided flank pain and may have passed a gallstone. Pain is now improved. -Gallbladder sludge with recommendations for laproscopic cholecystectomy, patient is now postoperative day #2 found to have a hydropic gallbladder. -Recent hospitalization for perforated gastric ulcer status postsurgical repair globin remained stable with no evidence GI bleeding -Lower extremity edema secondary to mild acute diastolic CHF exacerbation proBNP elevated at 5000 treated with IV lasix which has been resumed postoperatively. Patient continues on farxiga. -Left thigh cellulitic changes with concern for sepsis remains on IV cefepime; ID following. This is improving. -History of paroxysmal atrial fibrillation anticoag with Eliquis which is now held for possible surgery. 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 Continue with indwelling woods catheter and start flomax. Can do voiding trial tomorrow. Resumed on IV lasix which has been increased to twice daily by cardiology. Recommend for strict intake and output monitoring and repeat labs in the AM. Encourage increasing activity level and patient is also encouraged to continue with incentive spirometer 10 x an hour while awake. PT/OT consultation in place. Continue with bilateral LE compression. Eliquis has been resumed postoperatively. The impression and plan of care has been dictated by Gudelia Green, Nurse Practitioner as directed. Dr. Irwin MD I have performed a history and physical examination and medical decision making of this patient, discussed the same with the dictator, and agree with the dictators assessment and plan as written, documented as a scribe. Based on total visit time, I have performed more than 50% of this visit. Objective - Vital Signs Vital signs: Vital Signs Temp 97.5 F L 08/08/23 12:05 Pulse 60 08/08/23 12:05 Resp 16 08/08/23 12:05 BP 92/55 08/08/23 12:05 Pulse Ox 99 08/08/23 12:05 FiO2 Intake & Output 08/07/23 08/08/23 08/08/23 18:59 06:59 18:59 Output Total 1725 500 Balance -1725 -500 Weight 76.5 kg Output: Urine 1725 500 Other: Voiding Method Bedside Commode Indwelling Catheter Indwelling Catheter External Catheter - Labs CBC & Chem 7: 03/20/24 07:07 08/08/23 05:46 Labs: Abnormal Lab Results - Last 24 Hours (Table) 08/08/23 08/08/23 Range/Units 05:46 12:08 BUN 36.4 H (9.0-27.0) mg/dL Est GFR (CKD-EPI) 46 L (>=60) BUN/Creatinine Ratio 30.33 H (12.00-20.00) Ratio Glucose 111 H (70-110) mg/dL POC Glucose (mg/dL) 114 H (70-110) mg/dL Calcium 8.3 L (8.7-10.3) mg/dL Total Bilirubin 2.0 H (0.3-1.2) mg/dL AST 110 H (13-35) U/L Alkaline Phosphatase 184 H (41-126) U/L Total Protein 5.5 L (6.2-8.2) g/dL Albumin 2.3 L (3.8-4.9) g/dL Albumin/Globulin Ratio 0.72 L (1.60-3.17) Ratio Microbiology - Last 24 Hours (Table) 08/03/23 03:30 Blood Culture - Final Blood Assessment and Plan Time with Patient: Less than 30
[2023-08-08 17:09] LABS: Glucose,Whole Blood 257 mg/dL (70-110)
[2023-08-08 20:04] LABS: Glucose,Whole Blood 122 mg/dL (70-110)
[2023-08-08] MEDS: FUROSEMIDE 10 MG/ML 4 ML VIAL IV SCH (21:34)
[2023-08-09 07:06] LABS: Glucose,Whole Blood 98 mg/dL (70-110)
[2023-08-09 08:19] VITALS: BMI 29.3
--- NOTE | 2023-08-09 09:58 | P.PN ---
Subjective Progress Note Date: 08/09/23 History of Present Illness: The patient is an 78-year-old female who is seen for preoperative valuation pr ior to cholecystectomy. She has a known history of heart failure, bronchial asthma, hypertension. She has been followed by Dr. Gonzalez on a regular basis. She underwent cardiac catheterization in 2020 and had mild obstructive CAD. She presents with back discomfort as well is worsening peripheral edema, her NT proBNP was elevated. She denies any chest discomfort, dizziness or palpitations. She had some nausea but no abdominal pain. She denies any significant PND or orthopnea. She is limited in her physical activity and has dyspnea on exertion. She has a history of hypertension and a history of paroxysmal atrial fibrillation and has been anticoagulated. Her abdominal CT scan showed cholelithiasis versus large with resolution of her pleural effusion, her gallbladder ultrasound was suboptimal with a mobile echogenic material in the posterior gallbladder suggestive of sludge but no evidence to suggest acute cholecystitis. On presentation she had evidence to suggest possible cellulitis of the lower extremities. Medications: Eliquis 2.5 mg twice a day, torsemide 20 mg daily, metoprolol tartrate 25 mg twice a day, iron, Ventolin. She was started on IV Lasix following admission. She has been on cefepime for her infection. Labs: WBC 25,000 on admission with a hemoglobin of 10.4. BUN and creatinine 74 and 1.59, today 61 and 1.7. NT proBNP 5000. AST 71, ALT 36. Bilirubin 3.0 and subsequently 1.6. The patient has chronic bilirubin elevation. And her LFTs have been elevated on all her admissions. 08/04 Patient has been continued on IV Lasix and started on Farxiga yesterday. She states that she has been having significant urine output. She states her abdomen is a little bloated. She is planning on surgical intervention. She is not currently on home O2. Echocardiogram remains pending. 08/05 Patient appears stable today. She has been maintained on IV Lasix 40 mg every 12 hours. She has a negative fluid balance of 1981. She has less lower extremity edema today. Echocardiogram reveals EF of 50 to 55%, mild concentric left ventricular hypertrophy, moderate mitral regurgitation, moderate left atrial dilatation. Results of echocardiogram have been reviewed with the patient. 08/06 Yesterday, patient underwent laparoscopic cholecystectomy without any postpro cedure complications. Yesterday she received 1 dose of IV Lasix and afternoon dose was discontinued in preparation for surgery. This morning blood pressure 135/72, heart rate 70, pulse ox 98% on room air. Patient continues to have lower extremity edema for which IV Lasix will be resumed. Hester catheter was placed due to retention. She states she still has the same abdominal pain as prior to surgery. Repeat blood work will be ordered for tomorrow. 08/08/2023 S/p laparoscopic cholecystectomy. Abdomen is distended mildly tender. 2+ pitting edema up to knee level. Good urine output, creatinine is stable at 1.2. 08/09/23 Seen and examined at bedside this a.m. Denies any active discomfort. Appetite is improving, passing gas. Abdominal distention is better as compared to yesterday. Was able to ambulate in the unit yesterday. Physical Examination: 78-year-old female, alert oriented no apparent distress, obese Head: Normocephalic. Eyes: Sclerae nonicteric. Neck: Good carotid upstroke, no bruit, no jugular venous distention. Lungs: Clear to auscultation. Heart: Regular rate and rhythm, S1-S2, no S3, no rub. Systolic ejection murmur Abdomen: Soft nontender, positive bowel sounds no organomegaly. Extremities: +1 edema, intact distal pulses. Sky wrap in place Impression: 1. Evidence of fluid overload with acute heart failure and preserved systolic function. Acute HFpEF exacerbation 2. Gallbladder sludge status post laparoscopic cholecystectomy 3. Back discomfort 4. Chronic kidney disease 5. Paroxysmal atrial fibrillation 6. Possible cellulitis Plan: Continue Lasix to 40 mg IV twice daily Continue Aldactone 12.5 mg daily. Uptitrate dose if potassium and renal function is stable From tomorrow transition Lasix to 40 mg torsemide p.o. daily and start Farxiga 1 0 mg daily. Continue Eliquis 2.5 mg twice daily PT OT evaluation, ensure Patient has macrocytic anemia along with thrombocytopenia. She should be evaluated by hematology oncology on outpatient basis. Primary team to follow Anticipate discharge tomorrow, thereafter follow-up with Dr. Beckford outpatient Objective - Vital Signs Vital signs: Vital Signs Temp 97.8 F 08/09/23 07:07 Pulse 67 08/09/23 07:07 Resp 16 08/09/23 07:07 BP 123/67 08/09/23 07:07 Pulse Ox 99 08/09/23 07:07 FiO2 Intake & Output 08/08/23 08/09/23 08/09/23 18:59 06:59 18:59 Intake Total 590 Output Total 700 400 Balance -700 190 Weight 77.5 kg 77.5 kg Intake: Oral 590 Output: Urine 700 400 Other: Voiding Method Indwelling Catheter Indwelling Catheter - Labs CBC & Chem 7: 08/07/23 07:07 08/08/23 05:46 Labs: Abnormal Lab Results - Last 24 Hours (Table) 08/08/23 08/08/23 08/08/23 Range/Units 12:08 17:06 20:03 POC Glucose (mg/dL) 114 H 257 H 122 H (70-110) mg/dL Microbiology - Last 24 Hours (Table) 08/03/23 03:30 Blood Culture - Final Blood
[2023-08-09 11:50] LABS: HCT 24.3 % (37.2-46.3); HGB 7.9 g/dL (12.0-15.0); MCH 34.6 pg (27.0-32.0); MCHC 32.5 g/dL (32.0-37.0); MCV 106.6 FL (80.0-97.0); Mean Platelet Volume 9.8 FL (9.5-12.2); NRBC Per 100 WBC 0 X 10*3/uL (0.00-0.01); Platelet Count 119 X 10*3/uL (140-440); RBC 2.28 X 10*6/uL (4.10-5.20); RDW 16.5 % (11.5-14.5); WBC 9.04 X 10*3/uL (4.50-10.00)
[2023-08-09 11:51] LABS: Glucose,Whole Blood 239 mg/dL (70-110)
[2023-08-09 12:17] LABS: ALT 35 U/L (8-44); AST 91 U/L (13-35); Albumin 2.3 g/dL (3.8-4.9); Albumin/Globulin Ratio 0.74 Ratio (1.60-3.17); Alkaline Phosphatase 192 U/L (41-126); BUN/Creat Ratio 30.38 Ratio (12.00-20.00); Blood Urea Nitrogen 39.5 mg/dL (9.0-27.0); Calcium 8.2 mg/dL (8.7-10.3); Carbon Dioxide 25.4 mmol/L (21.6-31.8); Chloride 103 mmol/L (96-109); Globulin 3.1 g/dL (1.6-3.3); Glucose 100 mg/dL (70-110); Potassium 4.4 mmol/L (3.5-5.5); Sodium 134 mmol/L (135-145); Total Bilirubin 1.4 mg/dL (0.3-1.2); Total Protein 5.4 g/dL (6.2-8.2)
--- NOTE | 2023-08-09 15:14 | P.PN ---
Subjective Progress Note Date: 08/09/23 This is a pleasant 78-year-old female with medical history of asthma, diastolic heart failure, hypertension, heart catheterization, lymphoma. patient is a never smoker. Patient was recently admitted to the hospital for a perforated gastric ulcer where she underwent surgical repair. Patient has been at rehabilitation and states that since discharge she has been having lower back pain. This back pain is worse on the right with radiation over to the left lower back. Has worked up at the ER for a lumbar radiculopathy underwent an abdominal pelvis CT which reveals removal of the previous drainage catheter in the left upper abdomen, improved anasarca of the soft tissues, previous pleural effusions have essentially resolved, mild cardiomegaly, cirrhotic hepatic morphology, cholelithiasis versus sludge with no acute abnormality demonstrated in the limits of this unenhanced exam. Patient was noted to have gallstones or previous admission as well. There is moderate stool throughout the colon. Valentin mendez is noted to have an elevated white blood cell count of 25.0 on admission with a hemoglobin of 10.4, platelet count of 136. Her sodium level is 135, BUN of 74, creatinine of 1.59, total bilirubin is elevated at 3.0, AST of 105, ALT of 43 and an alk phos of 244. Her proBNP is elevated at 5000 patient does have significant lower extremity pitting edema which she states has been worsening over the last couple days. Urinalysis is negative. She is denying shortness of breath she is not having any chest pain she is not having any nausea vomiting or diarrhea. No urinary symptoms. Straight leg raise test does not make the lower back pain worse. Her right upper quadrant is significantly tender on manual palpation. She is concerned with her left lower extremity there is an hardened erythematous area on the inner aspect of her left thigh which is tender to touch. A CT of the lower extremity was completed showing a soft tissue edema and cellulitis throughout the left lower extremity. No focal fluid collection identified. There is no clear evidence of an acute osseous obstructive process. There is generalized osseous demineralization with multiple foci of lower attenuation seen primarily in the bones about the knee and the ankle of uncertain etiology. This could be reflective osteoarthritis with sequela of infectious process or metastasis less likely considerations. Clinical correlation with bone scan may be considered. Patient evaluated today in follow up; reports continued right flank pain. General surgery has evaluated the patient and recommended patient to undergo laproscopic cholecystectomy. Patient does state that she is also scheduled to undergo an EGD next month with Dr. Mariama Dawson for follow up for the perforated gastric ulcer. Patients lower extremity edema is improving and she continues with bilateral SKY wrap. Continues on IV lasix 40 mg q12. Patient has had negative 1.7 L of urine output overnight. Bilirubin and LFTs are improving. BUN 61.2 and creatinine of 1.7 today. WBC 21.79. 08/05/2023 Patient is evaluated in follow-up today resting in bed. S echocardiogram has been taken and pending at this time. He continues to report right flank pain as well as right upper quadrant abdominal discomfort. Patient is scheduled to undergo laparoscopic cholecystectomy tomorrow. Cardiology is following and patient continues on IV lasix 40 mg every 12 hours. Echocardiogram has been taken and pending at this time. Labs improving white blood cell count down to 11.86, hemoglobin 8.7, platelet count 126. Sodium 134, BUN 60, creatinine 1.33. proBNP improving down to 3174. Patient is considered moderate surgical risk due to congestive heart failure. Patient is on room air at this time. 08/06/2023 Patient is evaluated in follow up today. Patient has been cleared by cardiology to undergo cholecystectomy today. Continues on IV lasix 40 mg [id number]. BUN 51, creatinine 1.05. Continues to report right sided flank and abdominal pain. 08/07/2023 Patient is evaluated today in follow-up. She is postoperative day #1 laparoscopic cholecystectomy due to a hydropic gallbladder. Patient reports right-sided abdominal pain however states that the pain to her right back is improved. Currently rating it about a 5 out of 10. She does report some increased shortness of breath with congestion. Patient has been resumed on IV Lasix daily. Echocardiogram showing normal LV size with EF of 50 to 58% with moderate MR and moderate left atrial dilatation. Total bilirubin today is 1.8. Blood cell count normal at 8.35, hemoglobin 9.6, MCV 100.3, BUN of 40, creatinine of 1.1. Dynamically she is stable. She was having issues with urinary retention postoperatively requiring placement of the indwelling Woods catheter. 08/08/2023 Patient is evaluated today in follow-up she is postoperative day #2 laparoscopic cholecystectomy with findings of a hydropic gallbladder. Patient states that her right side abdominal discomfort has significantly improved she is mostly reporting incisional pain at this time. Her lower extremity edema has improved as well she is requesting a break from the Sky wrap's which were taken off. She does continue on IV Lasix which has been increased to twice a day by cardiology. She is currently reporting no shortness of breath her lungs are clear and she is currently on room air at this time. She does have a mildly distended abdomen with normal active bowel sounds. She is slightly tympanic postsurgical I recommended to increase her activity level as tolerated. She has not had a bowel movement yet. Her blood work today reveals a BUN of 36.4, creatinine of 1.2, bilirubin level of 2.0, LFTs remain mildly elevated. 08/09/2023 Patient is evaluated today postoperative day #3 laproscopic cholecystectomy. Patient is continued on IV cefepime. Had issues with urinary retention postoperatively was started on flomax. Would recommend a voiding trial today. Cardiology following and patient will be continued on IV lasix 40 mg Q12. Patient passing gas not having bowel movements yet but feels she needs to go. She is tolerating a regular diet at this time. Review of Systems Constitutional: Denied any fatigue denied any fever. Cardio vascular: denied any chest pain, palpitations Gastrointestinal: denied any nausea, vomiting, diarrhea Reports right sided abdominal pain. Pulmonary: Denied any shortness of breath cough Neurologic denied any new focal deficits All inpatient medications were reviewed and appropriate changes in these medications as dictated in the interval history and assessment and plan. PHYSICAL EXAMINATION: GENERAL: The patient is alert and oriented x3, not in any acute distress. Well developed, well nourished. HEENT: Pupils are round and equally reacting to light. EOMI. No scleral icterus. No conjunctival pallor. Normocephalic, atraumatic. No pharyngeal erythema. No thyromegaly. CARDIOVASCULAR: S1 and S2 present. No murmurs, rubs, or gallops. PULMONARY: Chest is clear to auscultation, no wheezing or crackles. ABDOMEN: Soft, RUQ tenderness, mildly distended, normoactive bowel sounds. No palpable organomegaly. Post surgical abdomen. Laparoscopic incisions are ap proximated with no redness or drainage noted. MUSCULOSKELETAL: No joint swelling or deformity. EXTREMITIES: No cyanosis, clubbing, or pedal edema. lower extremity edema non pitting. wrapped with sky bandages. NEUROLOGICAL: Gross neurological examination did not reveal any focal deficits. SKIN: No rashes. Assessment and plan -Right upper quadrant abdominal pain with transaminitis and hyperbilirubinemia no evidence for biliary dilation, bilirubin and LFTs are improving. Patient has right sided flank pain and may have passed a gallstone. Pain is now improved. -Gallbladder sludge with recommendations for laproscopic cholecystectomy, patient is now postoperative day #3 found to have a hydropic gallbladder. -Recent hospitalization for perforated gastric ulcer status postsurgical repair globin remained stable with no evidence GI bleeding -Lower extremity edema secondary to mild acute diastolic CHF exacerbation proBNP elevated at 5000 treated with IV lasix which has been resumed postoperatively. Patient continues on farxiga. -Left thigh cellulitic changes with concern for sepsis remains on IV cefepime; ID following. This is improving. -History of paroxysmal atrial fibrillation anticoag with Eliquis which is now held for possible surgery. 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 Continue on IV cefepime while inpatient with transition to oral antibiotics on disharge. Cellulitis changes to the left thigh have resolved. Recommend to remove woods catheter today for a voiding trial. Continue on IV lasix with transition to oral lasix in the AM. Repeat labs in the AM. Encourage increasing activity level and patient is also encouraged to continue with incentive spirometer 10 x an hour while awake. Continue with bilateral LE compression. Eliquis has been resumed postoperatively. Discharge home in the next 24 hours. The impression and plan of care has been dictated by Gudelia Green Nurse Practitioner as directed. Dr. Irwin MD I have performed a history and physical examination and medical decision making of this patient, discussed the same with the dictator, and agree with the dictators assessment and plan as written, documented as a scribe. Based on total visit time, I have performed more than 50% of this visit. Objective - Vital Signs Vital signs: Vital Signs Temp 97.3 F L 08/09/23 13:14 Pulse 78 08/09/23 13:14 Resp 18 08/09/23 13:14 BP 133/68 08/09/23 13:14 Pulse Ox 99 08/09/23 13:14 FiO2 Intake & Output 08/08/23 08/09/23 08/09/23 18:59 06:59 18:59 Intake Total 590 Output Total 700 400 625 Balance -700 190 -625 Weight 77.5 kg 77.5 kg Intake: Oral 590 Output: Urine 700 400 625 Other: Voiding Method Indwelling Catheter Indwelling Catheter Indwelling Catheter - Labs CBC & Chem 7: 08/09/23 05:55 08/09/23 05:55 Labs: Abnormal Lab Results - Last 24 Hours (Table) 08/08/23 08/08/23 08/09/23 Range/Units 17:06 20:03 05:55 RBC 2.28 L (4.10-5.20) X 10*6/uL Hgb 7.9 L (12.0-15.0) g/dL Hct 24.3 L (37.2-46.3) % MCV 106.6 H (80.0-97.0) FL MCH 34.6 H (27.0-32.0) pg RDW 16.5 H (11.5-14.5) % Plt Count 119 L (140-440) X 10*3/uL Sodium (135-145) mmol/L BUN (9.0-27.0) mg/dL Est GFR (CKD-EPI) (>=60) BUN/Creatinine Ratio (12.00-20.00) Ratio POC Glucose (mg/dL) 257 H 122 H (70-110) mg/dL Calcium (8.7-10.3) mg/dL Total Bilirubin (0.3-1.2) mg/dL AST (13-35) U/L Alkaline Phosphatase (41-126) U/L Total Protein (6.2-8.2) g/dL Albumin (3.8-4.9) g/dL Albumin/Globulin Ratio (1.60-3.17) Ratio 08/09/23 08/09/23 Range/Units 05:55 11:49 RBC (4.10-5.20) X 10*6/uL Hgb (12.0-15.0) g/dL Hct (37.2-46.3) % MCV (80.0-97.0) FL MCH (27.0-32.0) pg RDW (11.5-14.5) % Plt Count (140-440) X 10*3/uL Sodium 134 L (135-145) mmol/L BUN 39.5 H (9.0-27.0) mg/dL Est GFR (CKD-EPI) 42 L (>=60) BUN/Creatinine Ratio 30.38 H (12.00-20.00) Ratio POC Glucose (mg/dL) 239 H (70-110) mg/dL Calcium 8.2 L (8.7-10.3) mg/dL Total Bilirubin 1.4 H (0.3-1.2) mg/dL AST 91 H (13-35) U/L Alkaline Phosphatase 192 H (41-126) U/L Total Protein 5.4 L (6.2-8.2) g/dL Albumin 2.3 L (3.8-4.9) g/dL Albumin/Globulin Ratio 0.74 L (1.60-3.17) Ratio Microbiology - Last 24 Hours (Table) 08/03/23 03:30 Blood Culture - Final Blood Assessment and Plan Time with Patient: Less than 30
--- NOTE | 2023-08-09 15:46 | P.PN ---
Subjective Progress Note Date: 08/09/23 Principal diagnosis: Reason for follow-up is left thigh and leg cellulitis Patient is a 78-year-old female with a past medical history significant for hypertension heart failure asthma heart failure lymphoma, presenting to the hospital with increasing swelling and redness to left lower extremity has been diagnosed with the cellulitis. On today's evaluation that is 08/09/2023, the patient continues to be afebrile, the patient is on room air and breathing comfortably, the Pt denies having any chest pain or cough, the patient denies having any abdominal pain no vomiting or any diarrhea pain and swelling to the left lower extremity has decreased in intensity. Patient white count of 9.04, creatinine is 1.3 blood culture negative Objective - Vital Signs Vital signs: Vital Signs Temp 97.8 F 08/09/23 07:07 Pulse 67 08/09/23 07:07 Resp 16 08/09/23 07:07 BP 123/67 08/09/23 07:07 Pulse Ox 99 08/09/23 07:07 FiO2 Intake & Output 08/08/23 08/09/23 08/09/23 18:59 06:59 18:59 Intake Total 590 Output Total 700 400 625 Balance -700 190 -625 Weight 77.5 kg 77.5 kg Intake: Oral 590 Output: Urine 700 400 625 Other: Voiding Method Indwelling Catheter Indwelling Catheter Indwelling Catheter - Exam GENERAL DESCRIPTION: An elderly female lying in bed in no distress RESPIRATORY SYSTEM: Unlabored breathing , decreased breath sounds at bases HEART: S1 S2 regular rate and rhythm , ABDOMEN: Soft , no tenderness EXTREMITIES: Patient left thigh and leg swelling and redness slightly decreased - Labs CBC & Chem 7: 08/09/23 05:55 08/09/23 05:55 Labs: Abnormal Lab Results - Last 24 Hours (Table) 08/08/23 08/08/23 08/09/23 Range/Units 17:06 20:03 05:55 RBC 2.28 L (4.10-5.20) X 10*6/uL Hgb 7.9 L (12.0-15.0) g/dL Hct 24.3 L (37.2-46.3) % MCV 106.6 H (80.0-97.0) FL MCH 34.6 H (27.0-32.0) pg RDW 16.5 H (11.5-14.5) % Plt Count 119 L (140-440) X 10*3/uL Sodium (135-145) mmol/L BUN (9.0-27.0) mg/dL Est GFR (CKD-EPI) (>=60) BUN/Creatinine Ratio (12.00-20.00) Ratio POC Glucose (mg/dL) 257 H 122 H (70-110) mg/dL Calcium (8.7-10.3) mg/dL Total Bilirubin (0.3-1.2) mg/dL AST (13-35) U/L Alkaline Phosphatase (41-126) U/L Total Protein (6.2-8.2) g/dL Albumin (3.8-4.9) g/dL Albumin/Globulin Ratio (1.60-3.17) Ratio 08/09/23 08/09/23 Range/Units 05:55 11:49 RBC (4.10-5.20) X 10*6/uL Hgb (12.0-15.0) g/dL Hct (37.2-46.3) % MCV (80.0-97.0) FL MCH (27.0-32.0) pg RDW (11.5-14.5) % Plt Count (140-440) X 10*3/uL Sodium 134 L (135-145) mmol/L BUN 39.5 H (9.0-27.0) mg/dL Est GFR (CKD-EPI) 42 L (>=60) BUN/Creatinine Ratio 30.38 H (12.00-20.00) Ratio POC Glucose (mg/dL) 239 H (70-110) mg/dL Calcium 8.2 L (8.7-10.3) mg/dL Total Bilirubin 1.4 H (0.3-1.2) mg/dL AST 91 H (13-35) U/L Alkaline Phosphatase 192 H (41-126) U/L Total Protein 5.4 L (6.2-8.2) g/dL Albumin 2.3 L (3.8-4.9) g/dL Albumin/Globulin Ratio 0.74 L (1.60-3.17) Ratio Microbiology - Last 24 Hours (Table) 08/03/23 03:30 Blood Culture - Final Blood Assessment and Plan (1) Left leg cellulitis Current Visit: Yes Status: Acute Code(s): L03.116 - CELLULITIS OF LEFT LOWER LIMB SNOMED Code(s): 35369376818793724 (2) Allergy to penicillin Current Visit: No Status: Acute Code(s): Z88.0 - ALLERGY STATUS TO PENICILLIN SNOMED Code(s): 18788749 (3) Elevated WBC count Current Visit: Yes Status: Acute Code(s): D72.829 - ELEVATED WHITE BLOOD CELL COUNT, UNSPECIFIED SNOMED Code(s): 096204347 Plan: 1-Patient presented to hospital with multiple symptoms including increasing swelling to the left lower extremity in this patient who did have some redness and hard area to the left medial thigh however CT did not show any evidence of abscess 2-patient also have elevated liver enzymes however CT as well as ultrasound did not show any evidence of gallbladder stone or dilated CBD, patient is status postcholecystectomy completed on 08/06/2023 3--patient is afebrile and the patient white count has normalized, the patient swelling and induration the left thigh has decreased in intensity, 4-patient continue with cefepime while inpatient, multiple question concern has been answered and will monitor closely while inpatient Dictation was produced using [employer] dictation software. please excuse any grammatical, word or spelling errors. Time with Patient: Less than 30
[2023-08-09] MEDS: bisacodyL 10 MG SUPP RECTAL STA (16:24)
[2023-08-09 17:21] LABS: Glucose,Whole Blood 166 mg/dL (70-110)
[2023-08-09 20:06] LABS: Glucose,Whole Blood 129 mg/dL (70-110)
[2023-08-10] MEDS: HYDROmorphone 1 MG/ML 1 ML SYRINGE IVP PRN (00:24)
[2023-08-10 07:12] LABS: Glucose,Whole Blood 96 mg/dL (70-110)
[2023-08-10 09:45] LABS: Basophils # (A) 0.02 X 10*3/uL (0.00-0.10); Basophils % (A) 0.2 %; Eosinophils # (A) 0.89 X 10*3/uL (0.04-0.35); Eosinophils % (A) 7.1 %; HCT 24.8 % (37.2-46.3); HGB 8.4 g/dL (12.0-15.0); Lymphocytes # (A) 1.04 X 10*3/uL (0.90-5.00); Lymphocytes % (A) 8.3 %; MCH 35.6 pg (27.0-32.0); MCHC 33.9 g/dL (32.0-37.0); MCV 105.1 FL (80.0-97.0); Mean Platelet Volume 9.8 FL (9.5-12.2); Monocytes # (A) 2.19 X 10*3/uL (0.20-1.00); Monocytes % (A) 17.5 %; NRBC Per 100 WBC 0 X 10*3/uL (0.00-0.01); Neutrophils # (A) 8.24 X 10*3/uL (1.80-7.70); Neutrophils % (A) 65.6 %; Platelet Count 128 X 10*3/uL (140-440); RBC 2.36 X 10*6/uL (4.10-5.20); RDW 16.3 % (11.5-14.5); WBC 12.54 X 10*3/uL (4.50-10.00)
[2023-08-10] MEDS: DAPAGLIFLOZIN PROPANEDIOL 10 MG TABLET PO SCH (10:11)
[2023-08-10] MEDS: TORSEMIDE 20 MG TAB PO SCH (10:11)
[2023-08-10 10:31] LABS: BUN/Creat Ratio 30.43 Ratio (12.00-20.00); Blood Urea Nitrogen 42.6 mg/dL (9.0-27.0); Calcium 8.6 mg/dL (8.7-10.3); Carbon Dioxide 23.2 mmol/L (21.6-31.8); Chloride 103 mmol/L (96-109); Glucose 97 mg/dL (70-110); Potassium 4.8 mmol/L (3.5-5.5); Sodium 133 mmol/L (135-145)
[2023-08-10 12:05] LABS: Glucose,Whole Blood 107 mg/dL (70-110)
--- NOTE | 2023-08-10 15:50 | P.PN ---
Subjective Progress Note Date: 08/10/23 Principal diagnosis: Reason for follow-up is left thigh and leg cellulitis Patient is a 78-year-old female with a past medical history significant for hypertension heart failure asthma heart failure lymphoma, presenting to the hospital with increasing swelling and redness to left lower extremity has been diagnosed with the cellulitis. On today's evaluation that is 08/10/2023, Patient is afebrile patient is currently on room air and breathing comfortably apparently the patient received a dose of Dilaudid for pain to the left leg per the at the bedside and slightly lethargic today and did not provide any history no vomiting or diarrhea has been reported. Patient white count is 12.54 creatinine is 1.4 blood culture has been negative Objective - Vital Signs Vital signs: Vital Signs Temp 98 F 08/10/23 12:40 Pulse 83 08/10/23 12:40 Resp 18 08/10/23 12:40 BP 118/60 08/10/23 12:40 Pulse Ox 97 08/10/23 12:40 FiO2 Intake & Output 08/09/23 08/10/23 08/10/23 18:59 06:59 18:59 Intake Total 240 940 Output Total 1125 1 Balance -885 940 -1 Weight 77.5 kg 77.6 kg Intake: Intake, IV Titration 100 Amount Cefepime 2 gm In Sodium 100 Chloride 0.9% 100 ml @ 25 mls/hr IVPB Q12HR FOR[facility]LY [facility], [facility] Rx #:[id number] Oral 240 840 Output: Urine 1125 Stool 1 Other: Voiding Method Indwelling Catheter Indwelling Catheter External Catheter # Voids 1 1 # Bowel Movements 1 - Exam GENERAL DESCRIPTION: An elderly female lying in bed in no distress RESPIRATORY SYSTEM: Unlabored breathing , decreased breath sounds at bases HEART: S1 S2 regular rate and rhythm , ABDOMEN: Soft , no tenderness EXTREMITIES: Patient left thigh and leg swelling and redness slightly decreased - Labs CBC & Chem 7: 08/10/23 06:07 08/10/23 06:07 Labs: Abnormal Lab Results - Last 24 Hours (Table) 08/09/23 08/09/23 08/10/23 Range/Units 17:20 20:03 06:07 WBC (4.50-10.00) X 10*3/uL RBC (4.10-5.20) X 10*6/uL Hgb (12.0-15.0) g/dL Hct (37.2-46.3) % MCV (80.0-97.0) FL MCH (27.0-32.0) pg RDW (11.5-14.5) % Plt Count (140-440) X 10*3/uL Immature Gran # (0.00-0.04) X 10*3/uL Neutrophils # (1.80-7.70) X 10*3/uL Monocytes # (0.20-1.00) X 10*3/uL Eosinophils # (0.04-0.35) X 10*3/uL Sodium 133 L (135-145) mmol/L BUN 42.6 H (9.0-27.0) mg/dL Est GFR (CKD-EPI) 38 L (>=60) BUN/Creatinine Ratio 30.43 H (12.00-20.00) Ratio POC Glucose (mg/dL) 166 H 129 H (70-110) mg/dL Calcium 8.6 L (8.7-10.3) mg/dL 08/09/ Range/Units 06:07 WBC 12.54 H (4.50-10.00) X 10*3/uL RBC 2.36 L (4.10-5.20) X 10*6/uL Hgb 8.4 L (12.0-15.0) g/dL Hct 24.8 L (37.2-46.3) % MCV 105.1 H (80.0-97.0) FL MCH 35.6 H (27.0-32.0) pg RDW 16.3 H (11.5-14.5) % Plt Count 128 L (140-440) X 10*3/uL Immature Gran # 0.16 H (0.00-0.04) X 10*3/uL Neutrophils # 8.24 H (1.80-7.70) X 10*3/uL Monocytes # 2.19 H (0.20-1.00) X 10*3/uL Eosinophils # 0.89 H (0.04-0.35) X 10*3/uL Sodium (135-145) mmol/L BUN (9.0-27.0) mg/dL Est GFR (CKD-EPI) (>=60) BUN/Creatinine Ratio (12.00-20.00) Ratio POC Glucose (mg/dL) (70-110) mg/dL Calcium (8.7-10.3) mg/dL Assessment and Plan (1) Left leg cellulitis Current Visit: Yes Status: Acute Code(s): L03.116 - CELLULITIS OF LEFT LOWER LIMB SNOMED Code(s): 09356817763209544 (2) Allergy to penicillin Current Visit: No Status: Acute Code(s): Z88.0 - ALLERGY STATUS TO PENICILLIN SNOMED Code(s): 84304063 (3) Elevated WBC count Current Visit: Yes Status: Acute Code(s): D72.829 - ELEVATED WHITE BLOOD CELL COUNT, UNSPECIFIED SNOMED Code(s): 224297098 Plan: 1-Patient presented to hospital with multiple symptoms including increasing swelling to the left lower extremity in this patient who did have some redness and hard area to the left medial thigh however CT did not show any evidence of abscess 2-patient also have elevated liver enzymes however CT as well as ultrasound did not show any evidence of gallbladder stone or dilated CBD, patient is status postcholecystectomy completed on 08/06/2023 3--patient is afebrile noticed to have slight worsening of the white count noted to be monitored closely for now continue with the cefepime at the bedside question concern answered Dictation was produced using [employer] dictation software. please excuse any grammatical, word or spelling errors. Time with Patient: Less than 30
--- NOTE | 2023-08-10 15:52 | P.PN ---
Subjective Progress Note Date: 08/10/23 History of Present Illness: The patient is an 78-year-old female who is seen for preoperative valuation pr ior to cholecystectomy. She has a known history of heart failure, bronchial asthma, hypertension. She has been followed by Dr. Gonzalez on a regular basis. She underwent cardiac catheterization in 2020 and had mild obstructive CAD. She presents with back discomfort as well is worsening peripheral edema, her NT proBNP was elevated. She denies any chest discomfort, dizziness or palpitations. She had some nausea but no abdominal pain. She denies any significant PND or orthopnea. She is limited in her physical activity and has dyspnea on exertion. She has a history of hypertension and a history of paroxysmal atrial fibrillation and has been anticoagulated. Her abdominal CT scan showed cholelithiasis versus large with resolution of her pleural effusion, her gallbladder ultrasound was suboptimal with a mobile echogenic material in the posterior gallbladder suggestive of sludge but no evidence to suggest acute cholecystitis. On presentation she had evidence to suggest possible cellulitis of the lower extremities. Medications: Eliquis 2.5 mg twice a day, torsemide 20 mg daily, metoprolol tartrate 25 mg twice a day, iron, Ventolin. She was started on IV Lasix following admission. She has been on cefepime for her infection. Labs: WBC 25,000 on admission with a hemoglobin of 10.4. BUN and creatinine 74 and 1.59, today 61 and 1.7. NT proBNP 5000. AST 71, ALT 36. Bilirubin 3.0 and subsequently 1.6. The patient has chronic bilirubin elevation. And her LFTs have been elevated on all her admissions. 08/04 Patient has been continued on IV Lasix and started on Farxiga yesterday. She states that she has been having significant urine output. She states her abdomen is a little bloated. She is planning on surgical intervention. She is not currently on home O2. Echocardiogram remains pending. 08/05 Patient appears stable today. She has been maintained on IV Lasix 40 mg every 12 hours. She has a negative fluid balance of 1981. She has less lower extremity edema today. Echocardiogram reveals EF of 50 to 55%, mild concentric left ventricular hypertrophy, moderate mitral regurgitation, moderate left atrial dilatation. Results of echocardiogram have been reviewed with the patient. 08/06 Yesterday, patient underwent laparoscopic cholecystectomy without any postpro cedure complications. Yesterday she received 1 dose of IV Lasix and afternoon dose was discontinued in preparation for surgery. This morning blood pressure 135/72, heart rate 70, pulse ox 98% on room air. Patient continues to have lower extremity edema for which IV Lasix will be resumed. Hester catheter was placed due to retention. She states she still has the same abdominal pain as prior to surgery. Repeat blood work will be ordered for tomorrow. 08/08/2023 S/p laparoscopic cholecystectomy. Abdomen is distended mildly tender. 2+ pitting edema up to knee level. Good urine output, creatinine is stable at 1.2. 08/09/23 Seen and examined at bedside this a.m. Denies any active discomfort. Appetite is improving, passing gas. Abdominal distention is better as compared to yesterday. Was able to ambulate in the unit yesterday. 08/10/2023 Spouse at bedside reports that patient was having abdominal pain overnight and was given multiple pain medications and is now drowsy from this medication. Patient awakens to voice, denies any chest pain or pressure or shortness of breath. Physical Examination: 78-year-old female, alert oriented no apparent distress, obese Head: Normocephalic. Eyes: Sclerae nonicteric. Neck: Good carotid upstroke, no bruit, no jugular venous distention. Lungs: Clear to auscultation. Heart: Regular rate and rhythm, S1-S2, no S3, no rub. Systolic ejection murmur Abdomen: Soft nontender, positive bowel sounds. Extremities: +1 edema, intact distal pulses. Sky wrap in place BLE Impression: 1. Evidence of fluid overload with acute heart failure and preserved systolic function. Acute HFpEF exacerbation 2. Gallbladder sludge status post laparoscopic cholecystectomy 3. Back discomfort 4. Chronic kidney disease 5. Paroxysmal atrial fibrillation 6. Possible cellulitis Plan: Continue Aldactone 12.5 mg daily. Uptitrate dose if potassium and renal function is stable. Continue torsemide 40 mg p.o. daily and Farxiga 10 mg daily. Continue Eliquis 2.5 mg twice daily PT OT evaluation, ensure Patient has macrocytic anemia along with thrombocytopenia. She should be evaluated by hematology oncology on outpatient basis. Primary team to follow. Cardiology to sign off please call with any concerns or questions. Follow-up with Dr. Gonzalez outpatient in 1 to 2 weeks. Patient seen and examined with Dr. Winters, plan of care agreed upon. Objective - Vital Signs Vital signs: Vital Signs Temp 98 F 08/10/23 12:40 Pulse 83 08/10/23 12:40 Resp 18 08/10/23 12:40 BP 118/60 08/10/23 12:40 Pulse Ox 97 08/10/23 12:40 FiO2 Intake & Output 08/09/23 08/10/23 08/10/23 18:59 06:59 18:59 Intake Total 240 940 Output Total 1125 1 Balance -885 940 -1 Weight 77.5 kg 77.6 kg Intake: Intake, IV Titration 100 Amount Cefepime 2 gm In Sodium 100 Chloride 0.9% 100 ml @ 25 mls/hr IVPB Q12HR FORMERLY [facility], [facility]1983 Rx #:[id number] Oral 240 840 Output: Urine 1125 Stool 1 Other: Voiding Method Indwelling Catheter Indwelling Catheter External Catheter # Voids 1 1 # Bowel Movements 1 - Labs CBC & Chem 7: 08/10/23 06:07 08/10/23 06:07 Labs: Abnormal Lab Results - Last 24 Hours (Table) 08/09/23 08/09/23 08/10/23 Range/Units 17:20 20:03 06:07 WBC (4.50-10.00) X 10*3/uL RBC (4.10-5.20) X 10*6/uL Hgb (12.0-15.0) g/dL Hct (37.2-46.3) % MCV (80.0-97.0) FL MCH (27.0-32.0) pg RDW (11.5-14.5) % Plt Count (140-440) X 10*3/uL Immature Gran # (0.00-0.04) X 10*3/uL Neutrophils # (1.80-7.70) X 10*3/uL Monocytes # (0.20-1.00) X 10*3/uL Eosinophils # (0.04-0.35) X 10*3/uL Sodium 133 L (135-145) mmol/L BUN 42.6 H (9.0-27.0) mg/dL Est GFR (CKD-EPI) 38 L (>=60) BUN/Creatinine Ratio 30.43 H (12.00-20.00) Ratio POC Glucose (mg/dL) 166 H 129 H (70-110) mg/dL Calcium 8.6 L (8.7-10.3) mg/dL 08/10/23 Range/Units 06:07 WBC 12.54 H (4.50-10.00) X 10*3/uL RBC 2.36 L (4.10-5.20) X 10*6/uL Hgb 8.4 L (12.0-15.0) g/dL Hct 24.8 L (37.2-46.3) % MCV 105.1 H (80.0-97.0) FL MCH 35.6 H (27.0-32.0) pg RDW 16.3 H (11.5-14.5) % Plt Count 128 L (140-440) X 10*3/uL Immature Gran # 0.16 H (0.00-0.04) X 10*3/uL Neutrophils # 8.24 H (1.80-7.70) X 10*3/uL Monocytes # 2.19 H (0.20-1.00) X 10*3/uL Eosinophils # 0.89 H (0.04-0.35) X 10*3/uL Sodium (135-145) mmol/L BUN (9.0-27.0) mg/dL Est GFR (CKD-EPI) (>=60) BUN/Creatinine Ratio (12.00-20.00) Ratio POC Glucose (mg/dL) (70-110) mg/dL Calcium (8.7-10.3) mg/dL
--- NOTE | 2023-08-10 16:13 | PN ---
PROGRESS NOTE DATE OF SERVICE: 08/10/2023 SUBJECTIVE: This 78-year-old woman was admitted with right upper quadrant abdominal pain, also had gallbladder sludge. The patient admitted with left leg cellulitis. The patient also had laparoscopic cholecystectomy. The patient appears to be tired and weak at this time. The white count is 12.54. Glucose noted. Cultures are negative. PAST MEDICAL HISTORY: Noted. REVIEW OF SYSTEMS: Could not be taken, the patient is confused. CURRENT MEDICATIONS: Reviewed, include: Cefepime. Doses and rest of medications noted. PHYSICAL EXAMINATION: VITAL SIGNS: Pulse is 83, blood pressure 118/60, respirations 18. CHEST: Few scattered rhonchi and crackles. ABDOMEN: Soft, status post LABORATORY DATA: Reviewed as mentioned. WBC 12.54. ASSESSMENT: 1. Acute cholecystitis, status post laparoscopic cholecystectomy. 2. Left leg cellulitis. 3. History of paroxysmal atrial fibrillation. 4. Generalized weakness. 5. Asthma. 6. Hypertension. 7. Degenerative joint disease. 8. Multiple complex medical issues. RECOMMENDATIONS: This 78-year-old woman presented with multiple complex medical issues, we will monitor the patient closely. Continue the empiric antibiotics. DVT prophylaxis. Otherwise, I would recommend PT/OT evaluation, and possible Protonix, and add Protonix to the current regimen. Resume the home medications. Possible ECF rehab. PT/OT evaluation. Guarded prognosis. Further recommendations to follow. See orders for details. MMODL / IJN: [id number] / MTDD
[2023-08-10] MEDS: THIAMINE 100 MG TAB PO SCH (17:09)
[2023-08-10 17:10] LABS: Glucose,Whole Blood 98 mg/dL (70-110)
[2023-08-10 20:26] LABS: Glucose,Whole Blood 123 mg/dL (70-110)
[2023-08-11 07:51] LABS: Glucose,Whole Blood 94 mg/dL (70-110)
[2023-08-11 08:24] LABS: ALT 34 U/L (4-34); AST 104 U/L (14-36); African American GFR (CKD) 35 (>60 ml/min/1.73 sqM); Albumin 1.9 g/dL (3.5-5.0); Albumin/Globulin Ratio 0.6; Alkaline Phosphatase 178 U/L (38-126); Anion Gap 6 mmol/L; Blood Urea Nitrogen 53 mg/dL (7-17); Calcium 8.2 mg/dL (8.4-10.2); Carbon Dioxide 20 mmol/L (22-30); Chloride 107 mmol/L (98-107); Globulin 3.4 g/dL; Glucose 92 mg/dL (74-99); Non-African American GFR(CKD) 30 (>60 ml/min/1.73 sqM); Potassium 4.5 mmol/L (3.5-5.1); Sodium 133 mmol/L (137-145); Total Protein 5.3 g/dL (6.3-8.2)
[2023-08-11 08:59] LABS: Basophils % (A) 0 %; Eosinophils # (A) 1.2 k/uL (0-0.7); Eosinophils % (A) 10 %; HCT 26.6 % (34.0-46.0); Hypochromasia Slight; Lymphocytes # (A) 1.9 k/uL (1.0-4.8); Lymphocytes % (A) 16 %; MCH 34.6 pg (25.0-35.0); MCHC 31.2 g/dL (31.0-37.0); MCV 110.9 fL (80.0-100.0); Macrocytosis Marked; Mean Platelet Volume 8.2; Monocytes # (A) 1.2 k/uL (0-1.0); Monocytes % (A) 11 %; Neutrophils # (A) 6.8 k/uL (1.3-7.7); Neutrophils % (A) 59 %; Platelet Count 130 k/uL (150-450); RDW 15.4 % (11.5-15.5); WBC 11.6 k/uL (3.8-10.6)
[2023-08-11 09:10] LABS: HGB 8.3 gm/dL (11.4-16.0)
[2023-08-11] MEDS ORDERED: HYDROmorphone 0.5 MG/0.5 ML SYRINGE IVP PRN ×2 (10:42→13:02)
[2023-08-11] MEDS: MULTIVITAMINS, THERA 1 EACH TAB PO SCH (12:33)
[2023-08-11 13:03] LABS: Glucose,Whole Blood 142 mg/dL (70-110)
[2023-08-11] MEDS: HYDROcodone/APAP 5-325MG 1 EACH TAB PO PRN (13:13)
--- NOTE | 2023-08-11 14:41 | P.PN ---
Subjective Progress Note Date: 08/11/23 Patient complains of back pain generalized pain. She is status post cholecystectomy. AST and ALT's and total bilirubin persistently elevated without much decline. May benefit from additional studies such as repeat ultrasound for bile leak or HIDA scan to evaluate for bile leak. Pain management per primary team due to chronic back pain. Patient denies nausea. She is tolerating regular diet. Pain primarily at the left flank/left upper quadrant and back Objective - Vital Signs Vital signs: Vital Signs Temp 98.5 F 08/11/23 12:54 Pulse 72 08/11/23 12:54 Resp 20 08/11/23 12:54 BP 121/62 08/11/23 12:54 Pulse Ox 99 08/11/23 12:54 FiO2 Intake & Output 08/10/23 08/11/23 08/11/23 18:59 06:59 18:59 Output Total 2 750 Balance -2 -750 Weight 77.3 kg Output: Urine 750 Stool 2 Other: Voiding Method External Catheter External Catheter External Catheter # Voids 1 3 - Labs CBC & Chem 7: 08/11/23 07:40 08/11/23 07:40 Labs: Abnormal Lab Results - Last 24 Hours (Table) 08/10/23 08/11/23 08/11/23 Range/Units 20:25 07:40 07:40 WBC 11.6 H (3.8-10.6) k/uL RBC 2.40 L (3.80-5.40) m/uL Hgb 8.3 L D (11.4-16.0) gm/dL Hct 26.6 L (34.0-46.0) % MCV 110.9 H (80.0-100.0) fL Plt Count 130 L (150-450) k/uL Monocytes # 1.2 H (0-1.0) k/uL Eosinophils # 1.2 H (0-0.7) k/uL Macrocytosis Marked A Sodium 133 L (137-145) mmol/L Carbon Dioxide 20 L (22-30) mmol/L BUN 53 H (7-17) mg/dL Creatinine 1.60 H (0.52-1.04) mg/dL POC Glucose (mg/dL) 123 H (70-110) mg/dL Calcium 8.2 L (8.4-10.2) mg/dL Total Bilirubin 2.0 H (0.2-1.3) mg/dL AST 104 H (14-36) U/L Alkaline Phosphatase 178 H (38-126) U/L Total Protein 5.3 L (6.3-8.2) g/dL Albumin 1.9 L (3.5-5.0) g/dL 08/10/ Range/Units 13:01 WBC (3.8-10.6) k/uL RBC (3.80-5.40) m/uL Hgb (11.4-16.0) gm/dL Hct (34.0-46.0) % MCV (80.0-100.0) fL Plt Count (150-450) k/uL Monocytes # (0-1.0) k/uL Eosinophils # (0-0.7) k/uL Macrocytosis Sodium (137-145) mmol/L Carbon Dioxide (22-30) mmol/L BUN (7-17) mg/dL Creatinine (0.52-1.04) mg/dL POC Glucose (mg/dL) 142 H (70-110) mg/dL Calcium (8.4-10.2) mg/dL Total Bilirubin (0.2-1.3) mg/dL AST (14-36) U/L Alkaline Phosphatase (38-126) U/L Total Protein (6.3-8.2) g/dL Albumin (3.5-5.0) g/dL
--- NOTE | 2023-08-11 15:36 | PN ---
PROGRESS NOTE DATE OF SERVICE: 08/11/2023 SUBJECTIVE: This is an 78-year-old woman, who was admitted with right upper quadrant abdominal pain, had acute cholecystitis and cholecystectomy. The patient complains of left leg cellulitis also. The patient is being drowsy at this time. The pain medication has been adjusted at this time. PAST MEDICAL HISTORY: Reviewed. REVIEW OF SYSTEMS: A 14-point review of systems is negative except as mentioned above. CURRENT MEDICATIONS: Reviewed include Dilaudid. PHYSICAL EXAMINATION: VITAL SIGNS: Pulse rate is 70, blood pressure 130/60, respirations 16. CHEST: Few scattered rhonchi. ABDOMEN: Soft, status post surgery. LEGS: No edema. NERVOUS SYSTEM: Nonfocal. LABORATORY DATA: WBC 7.6. Sodium 133. ASSESSMENT: 1. Acute cholecystitis, status post laparoscopic cholecystectomy. 2. Left leg cellulitis. 3. History of paroxysmal atrial fibrillation. 4. Elevated WBC. 5. Generalized weakness. 6. Asthma history. 7. Hypertension. 8. Degenerative joint disease. 9. Multiple complex medical issues. 10.Full code. RECOMMENDATIONS: Recommend to continue current management and adjust of pain medication. The patient is slightly drowsy at this time. Continue with cefepime. The cultures are negative so far. I would recommend repeat labs. LFTs will be closely monitored. Prognosis guarded because of multiple complex medical issues and DVT prophylaxis. Further recommendations to follow. MMODL / IJN: [id number] /
--- NOTE | 2023-08-11 16:58 | P.PN ---
Subjective Progress Note Date: 08/11/23 Principal diagnosis: Reason for follow-up is left thigh and leg cellulitis Patient is a 78-year-old female with a past medical history significant for hypertension heart failure asthma heart failure lymphoma, presenting to the hospital with increasing swelling and redness to left lower extremity has been diagnosed with the cellulitis. On today's evaluation that is 08/11/2023, patient has been afebrile, patient is breathing comfortably and is currently on room air, patient denies having any significant cough no chest pain shortness of breath, patient denies nausea vomiting or diarrhea, patient apparently has been complaining of pain and seem to have some vivid dreams per the at the bedside. Patient white count is 11.6 creatinine is 1.60 Objective - Vital Signs Vital signs: Vital Signs Temp 98.0 F 08/11/23 07:52 Pulse 76 08/11/23 07:52 Resp 20 08/11/23 07:52 BP 153/67 08/11/23 07:52 Pulse Ox 100 08/11/23 07:52 FiO2 Intake & Output 08/10/23 08/11/23 08/11/23 18:59 06:59 18:59 Output Total 2 750 Balance -2 -750 Weight 77.3 kg Output: Urine 750 Stool 2 Other: Voiding Method External Catheter External Catheter External Catheter # Voids 1 3 - Exam GENERAL DESCRIPTION: An elderly female lying in bed in no distress RESPIRATORY SYSTEM: Unlabored breathing , decreased breath sounds at bases HEART: S1 S2 regular rate and rhythm , ABDOMEN: Soft , no tenderness EXTREMITIES: Patient left thigh and leg swelling and redness slightly decreased - Labs CBC & Chem 7: 08/11/23 07:40 08/11/23 07:40 Labs: Abnormal Lab Results - Last 24 Hours (Table) 08/10/23 08/11/23 08/11/23 Range/Units 20:25 07:40 07:40 WBC 11.6 H (3.8-10.6) k/uL RBC 2.40 L (3.80-5.40) m/uL Hgb 8.3 L D (11.4-16.0) gm/dL Hct 26.6 L (34.0-46.0) % MCV 110.9 H (80.0-100.0) fL Plt Count 130 L (150-450) k/uL Monocytes # 1.2 H (0-1.0) k/uL Eosinophils # 1.2 H (0-0.7) k/uL Macrocytosis Marked A Sodium 133 L (137-145) mmol/L Carbon Dioxide 20 L (22-30) mmol/L BUN 53 H (7-17) mg/dL Creatinine 1.60 H (0.52-1.04) mg/dL POC Glucose (mg/dL) 123 H (70-110) mg/dL Calcium 8.2 L (8.4-10.2) mg/dL Total Bilirubin 2.0 H (0.2-1.3) mg/dL AST 104 H (14-36) U/L Alkaline Phosphatase 178 H (38-126) U/L Total Protein 5.3 L (6.3-8.2) g/dL Albumin 1.9 L (3.5-5.0) g/dL 03/24/24 Range/Units 13:01 WBC (3.8-10.6) k/uL RBC (3.80-5.40) m/uL Hgb (11.4-16.0) gm/dL Hct (34.0-46.0) % MCV (80.0-100.0) fL Plt Count (150-450) k/uL Monocytes # (0-1.0) k/uL Eosinophils # (0-0.7) k/uL Macrocytosis Sodium (137-145) mmol/L Carbon Dioxide (22-30) mmol/L BUN (7-17) mg/dL Creatinine (0.52-1.04) mg/dL POC Glucose (mg/dL) 142 H (70-110) mg/dL Calcium (8.4-10.2) mg/dL Total Bilirubin (0.2-1.3) mg/dL AST (14-36) U/L Alkaline Phosphatase (38-126) U/L Total Protein (6.3-8.2) g/dL Albumin (3.5-5.0) g/dL Assessment and Plan (1) Left leg cellulitis Current Visit: Yes Status: Acute Code(s): L03.116 - CELLULITIS OF LEFT LOWER LIMB SNOMED Code(s): 58375888230999195 (2) Allergy to penicillin Current Visit: No Status: Acute Code(s): Z88.0 - ALLERGY STATUS TO PENICILLIN SNOMED Code(s): 07022301 (3) Elevated WBC count Current Visit: Yes Status: Acute Code(s): D72.829 - ELEVATED WHITE BLOOD CELL COUNT, UNSPECIFIED SNOMED Code(s): 175319258 Plan: 1-Patient presented to hospital with multiple symptoms including increasing swelling to the left lower extremity in this patient who did have some redness and hard area to the left medial thigh however CT did not show any evidence of abscess 2-patient also have elevated liver enzymes however CT as well as ultrasound did not show any evidence of gallbladder stone or dilated CBD, patient is status postcholecystectomy completed on 08/06/2023 3--patient is afebrile patient white count is trending down, noticed to have some mentation changes questionably due to cefepime which will be discontinued and to start the patient on Omnicef and monitor clinical course closely Dictation was produced using [employer] dictation software. please excuse any gr ammatical, word or spelling errors. Time with Patient: Less than 30
[2023-08-11 17:40] LABS: Glucose,Whole Blood 113 mg/dL (70-110)
[2023-08-11] MEDS: CEFDINIR 300 MG CAP PO SCH (20:03)
[2023-08-11 20:27] LABS: Glucose,Whole Blood 118 mg/dL (70-110)
[2023-08-11] MEDS ORDERED: CEFEPIME 1 GM in SODIUM CHLORIDE 0.9% 50 ML IVPB SCH (21:00)
[2023-08-12 07:13] LABS: Glucose,Whole Blood 101 mg/dL (70-110)
[2023-08-12 11:18] LABS: HCT 27.4 % (34.0-46.0); HGB 8.8 gm/dL (11.4-16.0); Hypochromasia Moderate; MCH 35.7 pg (25.0-35.0); MCV 111.6 fL (80.0-100.0); Macrocytosis Marked; Mean Platelet Volume 7.8; Platelet Count 150 k/uL (150-450); RBC 2.45 m/uL (3.80-5.40); RDW 15.5 % (11.5-15.5); WBC 9.8 k/uL (3.8-10.6)
[2023-08-12 11:25] LABS: Basophils # (A) 0.05 X 10*3/uL (0.00-0.10); Basophils % (A) 0.4 %; Eosinophils # (A) 1.95 X 10*3/uL (0.04-0.35); Eosinophils % (A) 17.3 %; HGB 8.1 g/dL (12.0-15.0); Lymphocytes # (A) 2.56 X 10*3/uL (0.90-5.00); Lymphocytes % (A) 22.8 %; MCH 35.7 pg (27.0-32.0); MCHC 33.8 g/dL (32.0-37.0); MCV 105.7 FL (80.0-97.0); Mean Platelet Volume 9.6 FL (9.5-12.2); Monocytes # (A) 1.81 X 10*3/uL (0.20-1.00); Monocytes % (A) 16.1 %; NRBC Per 100 WBC 0 X 10*3/uL (0.00-0.01); Neutrophils % (A) 42.7 %; Platelet Count 127 X 10*3/uL (140-440); RBC 2.27 X 10*6/uL (4.10-5.20); RDW 16.6 % (11.5-14.5); WBC 11.25 X 10*3/uL (4.50-10.00)
[2023-08-12 11:54] LABS: ALT 37 U/L (8-44); AST 95 U/L (13-35); Albumin 2.2 g/dL (3.8-4.9); Albumin/Globulin Ratio 0.71 Ratio (1.60-3.17); Alkaline Phosphatase 179 U/L (41-126); BUN/Creat Ratio 30.41 Ratio (12.00-20.00); Blood Urea Nitrogen 51.7 mg/dL (9.0-27.0); Calcium 8.5 mg/dL (8.7-10.3); Carbon Dioxide 21.6 mmol/L (21.6-31.8); Chloride 103 mmol/L (96-109); Globulin 3.1 g/dL (1.6-3.3); Glucose 95 mg/dL (70-110); Potassium 3.8 mmol/L (3.5-5.5); Sodium 132 mmol/L (135-145); Total Bilirubin 1.5 mg/dL (0.3-1.2); Total Protein 5.3 g/dL (6.2-8.2)
--- NOTE | 2023-08-12 11:58 | XR ---
EXAMINATION TYPE: XR chest 1V portable DATE OF EXAM: 08/12/2023 COMPARISON: 06/18/2023 INDICATION: CHF TECHNIQUE: Single frontal view of the chest is obtained. FINDINGS: The heart size is mildly prominent. The pulmonary vasculature is normal. The lungs are clear. Scoliosis as through the thoracic spine. IMPRESSION: 1. Mild cardiomegaly. 2. No acute pulmonary process.
[2023-08-12 12:09] LABS: Glucose,Whole Blood 121 mg/dL (70-110)
--- NOTE | 2023-08-12 12:37 | PN ---
PROGRESS NOTE DATE OF SERVICE: 08/12/2023 HISTORY OF PRESENT ILLNESS: This is an 78-year-old woman, who was admitted with right upper quadrant abdominal pain, had a cholecystectomy. The patient also had some apparent GI bleed and multiple consultants are following the patient closely. PAST MEDICAL HISTORY: Reviewed. REVIEW OF SYSTEMS: Fourteen-point review of systems is negative. CURRENT MEDICATIONS: Reviewed include DuoNeb, dose and rest of medications noted. PHYSICAL EXAMINATION: VITAL SIGNS: Pulse is 63, blood pressure 130/87, respirations 18. HEENT: Conjunctivae normal. NECK: No JVD. CARDIOVASCULAR: S1, S2 muffled. RESPIRATIONS: Breath sounds diminished at the bases. Scattered rhonchi. ABDOMEN: Soft, status post surgery. LEGS: No edema. NERVOUS SYSTEM: Diffusely weak. LABORATORY DATA: Reviewed. Hemoglobin is 8.3 yesterday. ASSESSMENT: 1. Acute cholecystitis, status post laparoscopic cholecystectomy. 2. Left leg cellulitis. 3. Rule out gastrointestinal bleed. 4. History of paroxysmal atrial fibrillation. 5. Elevated WBC. 6. Generalized weakness. 7. Asthma history. 8. Hypertension. 9. History of degenerative joint disease. 10.Multiple complex medical issues. 11.Full code. RECOMMENDATIONS: Recommend to continue current management and continue symptomatic treatment, otherwise at this time, I recommend continue with current medications and empiric antibiotics. PT, OT evaluation, possible ECF rehab. Prognosis guarded. Rule out GI bleed. Further recommendations to follow. MMODL / IJN: [id number] /
[2023-08-12] MEDS: FAMOTIDINE 20 MG/2 ML VIAL IV SCH (14:31)
--- NOTE | 2023-08-12 14:49 | P.PN ---
Subjective Progress Note Date: 08/12/23 CHIEF COMPLAINT: Cholecystitis HISTORY OF PRESENT ILLNESS: Patient postop day #6 status post laparoscopic cholecystectomy. Patient is complaining of back pain. Denies any abdominal pain at this time. She is having flatus and bowel movements. Per nursing staff patient had maroon stool last night and this morning with blood clots. Patient reports last colonoscopy was 10 years ago with colon polyps. Patient had been on Eliquis. This has been discontinued. Hemoglobin stable did go up from 8.1-8.8 today. Total bilirubin down from 2-1.5 AST 95 ALT 37 and alk phos 179 PHYSICAL EXAM: VITAL SIGNS: Reviewed. GENERAL: Well-developed in no acute distress. ABDOMEN: Soft. Nondistended. Nontender incision sites clean dry and intact NEUROLOGIC: Alert and oriented. Cranial nerves II through XII grossly intact. ASSESSMENT: 1. Cholecystitis with abnormal hydropic gallbladder 2. Cirrhotic liver 3. Acute CHF exacerbation followed by cardiology 4. Acute GI bleed with maroon stools PLAN: -Discontinue Eliquis -Continue to monitor hemoglobin -Continue to monitor for any signs or symptoms of bleeding -Continue antibiotics per ID service -Continue pain management -Encourage patient to use incentive spirometer -Encourage patient ambulate Physician Transport Conductor note has been reviewed by physician. Signing provider agrees with the documented findings, assessment, and plan of care. Objective - Vital Signs Vital signs: Vital Signs Temp 97.3 F L 08/12/23 11:53 Pulse 56 L 08/12/23 11:53 Resp 16 08/12/23 11:53 BP 94/48 08/12/23 11:53 Pulse Ox 95 08/12/23 11:53 FiO2 Intake & Output 08/11/23 08/12/23 08/12/23 18:59 06:59 18:59 Intake Total 50 120 Output Total 750 Balance -700 120 Weight 77 kg Intake: Intake, IV Titration 50 Amount Cefepime 1 gm In Sodium 50 Chloride 0.9% 50 ml @ 12. 5 mls/hr IVPB Q12HR [facility] Rx#:[id number] Oral 120 Output: Urine 750 Other: Voiding Method External Catheter External Catheter Diaper # Voids 1 # Bowel Movements 1 1 - Labs CBC & Chem 7: 08/12/23 10:31 08/12/23 06:37 Labs: Abnormal Lab Results - Last 24 Hours (Table) 08/11/23 08/11/23 08/12/23 Range/Units 17:39 20:24 06:37 WBC 11.25 H (4.50-10.00) X 10*3/uL RBC 2.27 L (4.10-5.20) X 10*6/uL Hgb 8.1 L (12.0-15.0) g/dL Hct 24.0 L (37.2-46.3) % MCV 105.7 H (80.0-97.0) FL MCH 35.7 H (27.0-32.0) pg RDW 16.6 H (11.5-14.5) % Plt Count 127 L (140-440) X 10*3/uL Immature Gran # 0.08 H (0.00-0.04) X 10*3/uL Monocytes # 1.81 H (0.20-1.00) X 10*3/uL Eosinophils # 1.95 H (0.04-0.35) X 10*3/uL Macrocytosis Sodium (135-145) mmol/L BUN (9.0-27.0) mg/dL Creatinine (0.6-1.5) mg/dL BUN/Creatinine Ratio (12.00-20.00) Ratio POC Glucose (mg/dL) 113 H 118 H (70-110) mg/dL Calcium (8.7-10.3) mg/dL Total Bilirubin (0.3-1.2) mg/dL AST (13-35) U/L Alkaline Phosphatase (41-126) U/L Total Protein (6.2-8.2) g/dL Albumin (3.8-4.9) g/dL Albumin/Globulin Ratio (1.60-3.17) Ratio 08/12/23 08/12/23 08/12/23 Range/Units 06:37 10:31 11:56 WBC (4.50-10.00) X 10*3/uL RBC 2.45 L (4.10-5.20) X 10*6/uL Hgb 8.8 L (12.0-15.0) g/dL Hct 27.4 L (37.2-46.3) % MCV 111.6 H (80.0-97.0) FL MCH 35.7 H (27.0-32.0) pg RDW (11.5-14.5) % Plt Count (140-440) X 10*3/uL Immature Gran # (0.00-0.04) X 10*3/uL Monocytes # (0.20-1.00) X 10*3/uL Eosinophils # (0.04-0.35) X 10*3/uL Macrocytosis Marked A Sodium 132 L (135-145) mmol/L BUN 51.7 H (9.0-27.0) mg/dL Creatinine 1.7 H (0.6-1.5) mg/dL BUN/Creatinine Ratio 30.41 H (12.00-20.00) Ratio POC Glucose (mg/dL) 121 H (70-110) mg/dL Calcium 8.5 L (8.7-10.3) mg/dL Total Bilirubin 1.5 H (0.3-1.2) mg/dL AST 95 H (13-35) U/L Alkaline Phosphatase 179 H (41-126) U/L Total Protein 5.3 L (6.2-8.2) g/dL Albumin 2.2 L (3.8-4.9) g/dL Albumin/Globulin Ratio 0.71 L (1.60-3.17) Ratio
--- NOTE | 2023-08-12 15:38 | P.PN ---
Subjective Progress Note Date: 08/12/23 Principal diagnosis: Reason for follow-up is left thigh and leg cellulitis Patient is a 78-year-old female with a past medical history significant for hypertension heart failure asthma heart failure lymphoma, presenting to the hospital with increasing swelling and redness to left lower extremity has been diagnosed with the cellulitis. On today's evaluation that is 08/12/2023,the patient denies any fever or any chills, patient is breathing comfortably on room air, the patient denies chest pain shortness of breath and no significant cough, patient denies abdominal pain, no nausea vomiting apparently did have an episode of bleeding per rectum and her Eliquis has been discontinued as reported by the nursing staff patient has been absent about diastolic blood pressure being in the 40s. Patient white count normal at 9.8, no creatinine was done today Objective - Vital Signs Vital signs: Vital Signs Temp 97.3 F L 08/12/23 11:53 Pulse 56 L 08/12/23 11:53 Resp 16 08/12/23 11:53 BP 94/48 08/12/23 11:53 Pulse Ox 95 08/12/23 11:53 FiO2 Intake & Output 08/11/23 08/12/23 08/12/23 18:59 06:59 18:59 Intake Total 50 120 Output Total 750 Balance -700 120 Weight 77 kg Intake: Intake, IV Titration 50 Amount Cefepime 1 gm In Sodium 50 Chloride 0.9% 50 ml @ 12. 5 mls/hr IVPB Q12HR [facility] Rx#:[id number] Oral 120 Output: Urine 750 Other: Voiding Method External Catheter External Catheter Diaper # Voids 1 # Bowel Movements 1 1 - Exam GENERAL DESCRIPTION: An elderly female lying in bed in no distress RESPIRATORY SYSTEM: Unlabored breathing , decreased breath sounds at bases HEART: S1 S2 regular rate and rhythm , ABDOMEN: Soft , no tenderness EXTREMITIES: Patient left thigh and leg swelling and redness slightly decreased - Labs CBC & Chem 7: 08/12/23 10:31 08/12/23 06:37 Labs: Abnormal Lab Results - Last 24 Hours (Table) 08/11/23 08/11/23 08/12/23 Range/Units 17:39 20:24 06:37 WBC 11.25 H (4.50-10.00) X 10*3/uL RBC 2.27 L (4.10-5.20) X 10*6/uL Hgb 8.1 L (12.0-15.0) g/dL Hct 24.0 L (37.2-46.3) % MCV 105.7 H (80.0-97.0) FL MCH 35.7 H (27.0-32.0) pg RDW 16.6 H (11.5-14.5) % Plt Count 127 L (140-440) X 10*3/uL Immature Gran # 0.08 H (0.00-0.04) X 10*3/uL Monocytes # 1.81 H (0.20-1.00) X 10*3/uL Eosinophils # 1.95 H (0.04-0.35) X 10*3/uL Macrocytosis Sodium (135-145) mmol/L BUN (9.0-27.0) mg/dL Creatinine (0.6-1.5) mg/dL BUN/Creatinine Ratio (12.00-20.00) Ratio POC Glucose (mg/dL) 113 H 118 H (70-110) mg/dL Calcium (8.7-10.3) mg/dL Total Bilirubin (0.3-1.2) mg/dL AST (13-35) U/L Alkaline Phosphatase (41-126) U/L Total Protein (6.2-8.2) g/dL Albumin (3.8-4.9) g/dL Albumin/Globulin Ratio (1.60-3.17) Ratio 08/12/23 08/12/23 08/12/23 Range/Units 06:37 10:31 11:56 WBC (4.50-10.00) X 10*3/uL RBC 2.45 L (4.10-5.20) X 10*6/uL Hgb 8.8 L (12.0-15.0) g/dL Hct 27.4 L (37.2-46.3) % MCV 111.6 H (80.0-97.0) FL MCH 35.7 H (27.0-32.0) pg RDW (11.5-14.5) % Plt Count (140-440) X 10*3/uL Immature Gran # (0.00-0.04) X 10*3/uL Monocytes # (0.20-1.00) X 10*3/uL Eosinophils # (0.04-0.35) X 10*3/uL Macrocytosis Marked A Sodium 132 L (135-145) mmol/L BUN 51.7 H (9.0-27.0) mg/dL Creatinine 1.7 H (0.6-1.5) mg/dL BUN/Creatinine Ratio 30.41 H (12.00-20.00) Ratio POC Glucose (mg/dL) 121 H (70-110) mg/dL Calcium 8.5 L (8.7-10.3) mg/dL Total Bilirubin 1.5 H (0.3-1.2) mg/dL AST 95 H (13-35) U/L Alkaline Phosphatase 179 H (41-126) U/L Total Protein 5.3 L (6.2-8.2) g/dL Albumin 2.2 L (3.8-4.9) g/dL Albumin/Globulin Ratio 0.71 L (1.60-3.17) Ratio Assessment and Plan (1) Left leg cellulitis Current Visit: Yes Status: Acute Code(s): L03.116 - CELLULITIS OF LEFT LOWER LIMB SNOMED Code(s): 00362675788284140 (2) Allergy to penicillin Current Visit: No Status: Acute Code(s): Z88.0 - ALLERGY STATUS TO PENICILLIN SNOMED Code(s): 25775122 (3) Elevated WBC count Current Visit: Yes Status: Acute Code(s): D72.829 - ELEVATED WHITE BLOOD CELL COUNT, UNSPECIFIED SNOMED Code(s): 852743128 Plan: 1-Patient presented to hospital with multiple symptoms including increasing swelling to the left lower extremity in this patient who did have some redness and hard area to the left medial thigh however CT did not show any evidence of abscess 2-patient also have elevated liver enzymes however CT as well as ultrasound did not show any evidence of gallbladder stone or dilated CBD, patient is status postcholecystectomy completed on 08/06/2023 3--patient is afebrile patient white count has normalized she will continue with oral Omnicef x 5 days question concern answered Dictation was produced using [employer] software. please excuse any grammatical, word or spelling errors. Time with Patient: Less than 30
[2023-08-12 17:36] LABS: Glucose,Whole Blood 142 mg/dL (70-110)
[2023-08-12] MEDS: ACETAMINOPHEN TAB 325 MG TAB PO PRN (18:10)
[2023-08-12 20:06] LABS: Glucose,Whole Blood 125 mg/dL (70-110)
[2023-08-12] MEDS: METOPROLOL TARTRATE 12.5 MG TAB PO SCH (20:35)
[2023-08-13 07:07] LABS: Glucose,Whole Blood 124 mg/dL (70-110)
[2023-08-13] MEDS: TORSEMIDE 20 MG TAB PO SCH (09:06)
[2023-08-13] MEDS: NALOXONE 0.4 MG/ML 1 ML VIAL IV PRN (10:59)
[2023-08-13 11:27] LABS: Glucose,Whole Blood 104 mg/dL (70-110)
[2023-08-13 11:41] LABS: ALT 39 U/L (8-44); AST 96 U/L (13-35); Albumin 2.5 g/dL (3.8-4.9); Albumin/Globulin Ratio 0.76 Ratio (1.60-3.17); Alkaline Phosphatase 200 U/L (41-126); BUN/Creat Ratio 27.89 Ratio (12.00-20.00); Carbon Dioxide 21.9 mmol/L (21.6-31.8); Chloride 102 mmol/L (96-109); Globulin 3.3 g/dL (1.6-3.3); Glucose 95 mg/dL (70-110); Potassium 4.2 mmol/L (3.5-5.5); Sodium 133 mmol/L (135-145); Total Bilirubin 1.6 mg/dL (0.3-1.2); Total Protein 5.8 g/dL (6.2-8.2)
[2023-08-13 12:18] LABS: Basophils # (A) 0.06 X 10*3/uL (0.00-0.10); Basophils % (A) 0.6 %; Eosinophils # (A) 1.55 X 10*3/uL (0.04-0.35); HCT 24.2 % (37.2-46.3); HGB 8.2 g/dL (12.0-15.0); Lymphocytes % (A) 16.5 %; MCHC 33.9 g/dL (32.0-37.0); MCV 106.1 FL (80.0-97.0); Mean Platelet Volume 9.9 FL (9.5-12.2); Monocytes # (A) 1.99 X 10*3/uL (0.20-1.00); Monocytes % (A) 19.3 %; NRBC Per 100 WBC 0 X 10*3/uL (0.00-0.01); Neutrophils # (A) 4.92 X 10*3/uL (1.80-7.70); Neutrophils % (A) 47.6 %; Platelet Count 131 X 10*3/uL (140-440); RBC 2.28 X 10*6/uL (4.10-5.20); RDW 16.3 % (11.5-14.5); WBC 10.32 X 10*3/uL (4.50-10.00)
--- NOTE | 2023-08-13 13:29 | CT ---
EXAMINATION TYPE: CT brain wo con CT DLP: 1866 mGycm, Automated exposure control for dose reduction was used. DATE OF EXAM: 08/13/2023 12:53 PM COMPARISON: None. CLINICAL INDICATION:Female, 78 years old with history of altered mentation, AMS TECHNIQUE: Brain: Axial CT images of the brain were obtained with coronal and sagittal reformats created and rev iewed. Contrast used: None. Oral contrast used: None. FINDINGS: Brain: Extra-axial spaces: No abnormal extra-axial fluid collections. Ventricular system: Within normal limits, cavum septum pellucidum. Cerebral parenchyma: No acute intraparenchymal hemorrhage or mass effect. The matson-white junction is well differentiated. Cerebellum: Unremarkable. Mass effect: No evidence of midline shift. Intracranial vasculature: unremarkable Soft tissues: Normal. Calvarium/osseous structures: No depressed skull fracture. Paranasal sinuses and mastoid air cells: Opacification of the left maxillary sinus with mucosal thickening of the right. Visualized orbits: Orbital contents are intact. IMPRESSION: 1. Limited exam secondary motion and patient's arms. 2. No acute intracranial process.
--- NOTE | 2023-08-13 13:33 | P.PN ---
Subjective Progress Note Date: 08/13/23 CHIEF COMPLAINT: Cholecystitis HISTORY OF PRESENT ILLNESS: Patient postop day #7 status post laparoscopic cholecystectomy. Patient more confused and lethargic today. Likely related to pain medication. Medicine service has taken away narcotics and given a dose of Narcan. Patient had blood in the stools yesterday. Afebrile. WBC 10.32 Hgb 8.2 PHYSICAL EXAM: VITAL SIGNS: Reviewed. GENERAL: Well-developed in no acute distress. ABDOMEN: Soft. Nondistended. Nontender incision sites clean dry and intact. Reducible left inguinal hernia ASSESSMENT: 1. Cholecystitis with abnormal hydropic gallbladder status post laparoscopic cholecystectomy 2. Cirrhotic liver 3. Acute CHF exacerbation followed by cardiology 4. Acute GI bleed with blood in stools. Patient has hemorrhoids. 5. Left inguinal hernia reducible PLAN: -Recommend outpatient left inguinal hernia repair -Tucks pads added for external hemorrhoids -Agree with discontinuing the narcotics -Hold Eliquis -Continue to monitor hemoglobin -Continue to monitor for any signs or symptoms of bleeding -Continue antibiotics per ID service -Continue pain management -Encourage patient to use incentive spirometer -Encourage patient ambulate Physician Kiln Packer note has been reviewed by physician. Signing provider agrees with the documented findings, assessment, and plan of care. Objective - Vital Signs Vital signs: Vital Signs Temp 97.7 F 08/13/23 12:28 Pulse 71 08/13/23 12:28 Resp 20 08/13/23 12:28 BP 141/78 08/13/23 12:28 Pulse Ox 97 08/13/23 12:28 FiO2 Intake & Output 08/12/23 08/13/23 08/13/23 18:59 06:59 18:59 Intake Total 50 Output Total 1 Balance 50 -1 Weight 73 kg Intake: Intake, IV Titration 50 Amount Cefepime 1 gm In Sodium 50 Chloride 0.9% 50 ml @ 12. 5 mls/hr IVPB Q12HR [facility] Rx#:[id number] Output: Stool 1 Other: Voiding Method Diaper Diaper Diaper # Voids 1 1 # Bowel Movements 2 - Labs CBC & Chem 7: 08/13/23 05:51 08/13/23 05:51 Labs: Abnormal Lab Results - Last 24 Hours (Table) 08/12/23 08/12/23 08/13/23 Range/Units 17:23 20:04 05:51 WBC 10.32 H (4.50-10.00) X 10*3/uL RBC 2.28 L (4.10-5.20) X 10*6/uL Hgb 8.2 L (12.0-15.0) g/dL Hct 24.2 L (37.2-46.3) % MCV 106.1 H (80.0-97.0) FL MCH 36.0 H (27.0-32.0) pg RDW 16.3 H (11.5-14.5) % Plt Count 131 L (140-440) X 10*3/uL Immature Gran # 0.10 H (0.00-0.04) X 10*3/uL Monocytes # 1.99 H (0.20-1.00) X 10*3/uL Eosinophils # 1.55 H (0.04-0.35) X 10*3/uL Sodium (135-145) mmol/L BUN (9.0-27.0) mg/dL Creatinine (0.6-1.5) mg/dL Est GFR (CKD-EPI) (>=60) BUN/Creatinine Ratio (12.00-20.00) Ratio POC Glucose (mg/dL) 142 H 125 H (70-110) mg/dL Total Bilirubin (0.3-1.2) mg/dL AST (13-35) U/L Alkaline Phosphatase (41-126) U/L Total Protein (6.2-8.2) g/dL Albumin (3.8-4.9) g/dL Albumin/Globulin Ratio (1.60-3.17) Ratio // Range/Units 05:51 07:05 WBC (4.50-10.00) X 10*3/uL RBC (4.10-5.20) X 10*6/uL Hgb (12.0-15.0) g/dL Hct (37.2-46.3) % MCV (80.0-97.0) FL MCH (27.0-32.0) pg RDW (11.5-14.5) % Plt Count (140-440) X 10*3/uL Immature Gran # (0.00-0.04) X 10*3/uL Monocytes # (0.20-1.00) X 10*3/uL Eosinophils # (0.04-0.35) X 10*3/uL Sodium 133 L (135-145) mmol/L BUN 53.0 H (9.0-27.0) mg/dL Creatinine 1.9 H (0.6-1.5) mg/dL Est GFR (CKD-EPI) 26 L (>=60) BUN/Creatinine Ratio 27.89 H (12.00-20.00) Ratio POC Glucose (mg/dL) 124 H (70-110) mg/dL Total Bilirubin 1.6 H (0.3-1.2) mg/dL AST 96 H (13-35) U/L Alkaline Phosphatase 200 H (41-126) U/L Total Protein 5.8 L (6.2-8.2) g/dL Albumin 2.5 L (3.8-4.9) g/dL Albumin/Globulin Ratio 0.76 L (1.60-3.17) Ratio
--- NOTE | 2023-08-13 14:40 | P.CNNES ---
History of Present Illness Consult date: 08/13/23 Requesting physician: Kailey Bates Reason for Consult: altered mental status History of Present Illness: This is an 78-year-old woman was admitted because bilateral lower extremity edema. History was obtained from medical record as well as the patient's was at bedside. During his hospital visit patient had right upper quadrant abdominal pain with elevated bilirubin and transaminitis, she had right-sided that Patient and May Have Passed Gallstone. gallbladder sludge and had laparoscopic cholecystectomy. It seems that she had a recent hospitalization for perforated gastric ulcer postsurgical repair. She has lower extremity edema due to congestive heart failure. She also has the left eye cellulitis. She's been getting morphine, Dilaudid and [place] during his hospital visit. This seems per the nurse and her she's having fluctuation of mentation and was agitated restless and thought her is about to hurt her last night. Per the patient does not have any history of stroke or any seizures. Some of the workup during this hospital visit consisted of: Her white blood cell is trending down was 25,000 currently is 10.32 thousand Sodium is 133. Sugar is in the 120s. ALT is [address] of the head is reported as limited exam secondary due to motion artifact and the patient's arms. No acute intracranial process. I personally reviewed the CT and I agree there is limitation because of motion artifact but no visible acute or subacute ischemia from limitation of exam. Review of Systems Limited but the pertinent positive and negative as per HPI. 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 History of Any Multi-Drug Resistant Organisms: None Reported Past Surgical History: Heart Catheterization Additional Past Surgical History / Comment(s): EYE SURGERY DUE TO INJURY, EGD, COLONOSCOPY, BONE MARROW BIOPSY, cataracts, muscle biopsy Past Anesthesia/Blood Transfusion Reactions: No Reported Reaction Past Psychological History: No Psychological Hx Reported Smoking Status: Never smoker Past Alcohol Use History: Occasional Past Drug Use History: None Reported - Past Family History Sister(s) Family Medical History: Cancer Additional Family Medical History / Comment(s): LEUKEMIA- at age 42 Brother(s) Family Medical History: Cancer Additional Family Medical History / Comment(s): with unknown type CA at age 60s Medications and Allergies Home Medications Medication Instructions Recorded Confirmed Type Cyanocobalamin (Vitamin B-12) 1,000 mcg PO DAILY 12/30/20 08/03/23 History [Vitamin B-12] Vit C/E/Zn/Coppr/Lutein/Zeaxan 1 cap PO BID 12/30/20 08/03/23 History [Preservision Areds 2 Softgel] Cholecalciferol (Vitamin D3) 125 mcg PO DAILY 04/25/21 08/03/23 History [Vitamin D3 (125 MCG = 5,000 IU)] Magnesium Oxide [Mag-Ox] 400 mg PO HS 02/04/23 08/03/23 History Folic Acid 1 mg PO DAILY 06/08/23 08/03/23 History Potassium Gluconate 99 mg PO DAILY 06/08/23 08/03/23 History Metoprolol Tartrate [Lopressor] 25 mg PO BID 30 Days #60 tablet 06/12/23 08/03/23 Rx Albuterol Sulfate [Ventolin HFA] 1 - 2 puff INHALATION RT-Q4H PRN 08/03/23 0 08/03/23 History Apixaban [Eliquis] 2.5 mg PO BID 08/03/23 08/03/23 History Famotidine [Pepcid] 20 mg PO BID 08/03/23 08/03/23 History Ferrous Sulfate [Feosol] 325 mg PO DAILY 08/03/23 08/03/23 History Ipratropium-Albuterol Nebulize 3 ml INHALATION RT-QID PRN 08/03/23 08/03/23 History [Duoneb 0.5 mg-3 mg/3 ml Soln] Torsemide [Demadex] 20 mg PO DAILY 08/03/23 08/03/23 History Allergies Allergy/AdvReac Type Severity Reaction Status Date / Time omeprazole [From Prilosec] Allergy Unknown Rash/Hives, Verified 08/06/23 16:44 TONGUE SWELLLING omeprazole magnesium Allergy Unknown Rash/Hives, Verified 08/06/23 16:44 [From Prilosec] TONGUE SWELLLING Penicillins Allergy Unknown Rash/Hives/ Verified 08/06/23 16:44 Itching amlodipine Allergy fide pedal Verified 08/06/23 16:44 edema, loss voice carvedilol Allergy shortness Verified 08/06/23 16:44 of breath lisinopril Allergy Unknown Verified 08/06/23 16:44 Physical Examination - Vital Signs Vital Signs: Vital Signs Temp Pulse Pulse Resp BP Pulse Ox 08/13/23 12:28 97.7 F 71 20 141/78 97 08/13/23 10:59 14 08/13/23 08:57 61 08/13/23 08:20 97.3 F L 66 16 128/63 100 08/13/23 00:28 97.5 F L 64 18 134/60 99 08/12/23 18:51 76 18 112/65 100 Intake and Output 08/12/23 08/13/23 08/13/23 22:59 06:59 14:59 Intake Total 50 Output Total 1 Balance 50 -1 Intake: Intake, IV Titration 50 Amount Cefepime 1 gm In Sodium 50 Chloride 0.9% 50 ml @ 12. 5 mls/hr IVPB Q12HR [facility] Rx#:[id number] Output: Stool 1 Other: Voiding Method Diaper Diaper # Voids 1 1 # Bowel Movements 2 Weight 73 kg General: Lying in bed and does not appear in acute distress. HENT: Supple neck. Neuro: Patient is drowsy but is awake to voice. She needed multiple verbal or catheter on the shoulder to keep her awake. She's oriented to self and time. She stated she is at the doctor's office room. She is able to name objects correctly such as pen and watch glasses. She was able to name her 's name correctly. No aphasia or neglect. The pupils are round equal reactive to light. Visual ferguson are full to c onfrontation. No facial weakness. No dysarthria Motor: Left in the upper extremity equally above gravity. Moving bilateral ankles symmetrically. Results - Laboratory Findings CBC and BMP: 08/13/23 05:51 08/13/23 05:51 Abnormal Lab Findings: Abnormal Labs 08/03/23 08/03/23 08/04/23 00:49 00:49 03:59 WBC 25.0 H 21.79 H RBC 2.96 L 2.78 L Hgb 10.4 L 9.7 L Hct 31.9 L 29.9 L MCV 108.0 H 107.6 H MCH 35.2 H 34.9 H RDW 16.3 H 17.0 H Plt Count 136 L D 118 L Immature Gran # 0.14 H Neutrophils # 21.9 H 15.78 H Monocytes # 1.87 H Eosinophils # 1.09 H Eosinophils # (Manual) NRBC/100 WBC Diff Macrocytosis Marked A Macrocytosis (manual) 2+ A Sodium 135 L Chloride Carbon Dioxide BUN 74 H Creatinine 1.59 H Est GFR (CKD-EPI) BUN/Creatinine Ratio Glucose 108 H POC Glucose (mg/dL) Calcium Total Bilirubin 3.0 H AST 105 H ALT 43 H Alkaline Phosphatase 244 H NT-Pro-B Natriuret Pep Total Protein Albumin 2.9 L Globulin Albumin/Globulin Ratio 08/04/23 08/04/23 08/05/23 03:59 20:00 05:47 WBC 11.86 H RBC 2.52 L Hgb 8.7 L Hct 26.4 L MCV 104.8 H MCH 34.5 H RDW 17.0 H Plt Count 126 L Immature Gran # 0.07 H Neutrophils # Monocytes # 1.47 H Eosinophils # 1.29 H Eosinophils # (Manual) NRBC/100 WBC Diff 0.02 H Macrocytosis Macrocytosis (manual) Sodium 134 L Chloride Carbon Dioxide 20.5 L BUN 61.2 H Creatinine 1.7 H Est GFR (CKD-EPI) 30 L BUN/Creatinine Ratio 36.00 H Glucose POC Glucose (mg/dL) 113 H Calcium 8.2 L Total Bilirubin 1.6 H AST 71 H ALT Alkaline Phosphatase 204 H NT-Pro-B Natriuret Pep Total Protein Albumin 2.6 L Globulin 3.7 H Albumin/Globulin Ratio 0.70 L 08/05/23 08/05/23 08/05/23 05:47 05:47 17:18 WBC RBC Hgb Hct MCV MCH RDW Plt Count Immature Gran # Neutrophils # Monocytes # Eosinophils # Eosinophils # (Manual) NRBC/100 WBC Diff Macrocytosis Macrocytosis (manual) Sodium 134 L Chloride Carbon Dioxide BUN 60 H Creatinine 1.33 H Est GFR (CKD-EPI) BUN/Creatinine Ratio Glucose POC Glucose (mg/dL) 114 H Calcium 7.9 L Total Bilirubin AST ALT Alkaline Phosphatase NT-Pro-B Natriuret Pep 3174 H Total Protein Albumin Globulin Albumin/Globulin Ratio 08/06/23 08/06/23 08/07/23 07:10 07:10 07:07 WBC RBC 2.79 L 2.47 L Hgb 9.8 L 8.6 L Hct 31.2 L 26.5 L MCV 111.9 H 107.3 H MCH 35.1 H 34.8 H RDW 15.9 H 16.8 H Plt Count 136 L 138 L Immature Gran # Neutrophils # Monocytes # 1.25 H Eosinophils # 1.28 H Eosinophils # (Manual) 1.30 H NRBC/100 WBC Diff 0.02 H Macrocytosis Marked A Macrocytosis (manual) Sodium 136 L Chloride 108 H Carbon Dioxide 21 L BUN 51 H Creatinine 1.05 H Est GFR (CKD-EPI) BUN/Creatinine Ratio Glucose POC Glucose (mg/dL) Calcium 7.9 L Total Bilirubin AST ALT Alkaline Phosphatase NT-Pro-B Natriuret Pep Total Protein Albumin Globulin Albumin/Globulin Ratio 08/07/23 08/08/23 08/08/23 07:07 05:46 12:08 WBC RBC Hgb Hct MCV MCH RDW Plt Count Immature Gran # Neutrophils # Monocytes # Eosinophils # Eosinophils # (Manual) NRBC/100 WBC Diff Macrocytosis Macrocytosis (manual) Sodium Chloride Carbon Dioxide BUN 40.7 H 36.4 H Creatinine Est GFR (CKD-EPI) 51 L 46 L BUN/Creatinine Ratio 37.00 H 30.33 H Glucose 111 H POC Glucose (mg/dL) 114 H Calcium 8.1 L 8.3 L Total Bilirubin 1.8 H 2.0 H AST 125 H 110 H ALT Alkaline Phosphatase 186 H 184 H NT-Pro-B Natriuret Pep Total Protein 5.5 L 5.5 L Albumin 2.3 L 2.3 L Globulin Albumin/Globulin Ratio 0.72 L 0.72 L 08/08/23 08/08/23 08/09/23 17:06 20:03 05:55 WBC RBC 2.28 L Hgb 7.9 L Hct 24.3 L MCV 106.6 H MCH 34.6 H RDW 16.5 H Plt Count 119 L Immature Gran # Neutrophils # Monocytes # Eosinophils # Eosinophils # (Manual) NRBC/100 WBC Diff Macrocytosis Macrocytosis (manual) Sodium Chloride Carbon Dioxide BUN Creatinine Est GFR (CKD-EPI) BUN/Creatinine Ratio Glucose POC Glucose (mg/dL) 257 H 122 H Calcium Total Bilirubin AST ALT Alkaline Phosphatase NT-Pro-B Natriuret Pep Total Protein Albumin Globulin Albumin/Globulin Ratio 08/09/23 08/09/23 08/09/23 05:55 11:49 17:20 WBC RBC Hgb Hct MCV MCH RDW Plt Count Immature Gran # Neutrophils # Monocytes # Eosinophils # Eosinophils # (Manual) NRBC/100 WBC Diff Macrocytosis Macrocytosis (manual) Sodium 134 L Chloride Carbon Dioxide BUN 39.5 H Creatinine Est GFR (CKD-EPI) 42 L BUN/Creatinine Ratio 30.38 H Glucose POC Glucose (mg/dL) 239 H 166 H Calcium 8.2 L Total Bilirubin 1.4 H AST 91 H ALT Alkaline Phosphatase 192 H NT-Pro-B Natriuret Pep Total Protein 5.4 L Albumin 2.3 L Globulin Albumin/Globulin Ratio 0.74 L 08/09/23 08/10/23 08/10/23 20:03 06:07 06:07 WBC 12.54 H RBC 2.36 L Hgb 8.4 L Hct 24.8 L MCV 105.1 H MCH 35.6 H RDW 16.3 H Plt Count 128 L Immature Gran # 0.16 H Neutrophils # 8.24 H Monocytes # 2.19 H Eosinophils # 0.89 H Eosinophils # (Manual) NRBC/100 WBC Diff Macrocytosis Macrocytosis (manual) Sodium 133 L Chloride Carbon Dioxide BUN 42.6 H Creatinine Est GFR (CKD-EPI) 38 L BUN/Creatinine Ratio 30.43 H Glucose POC Glucose (mg/dL) 129 H Calcium 8.6 L Total Bilirubin AST ALT Alkaline Phosphatase NT-Pro-B Natriuret Pep Total Protein Albumin Globulin Albumin/Globulin Ratio 08/10/23 08/11/23 08/11/23 20:25 07:40 07:40 WBC 11.6 H RBC 2.40 L Hgb 8.3 L D Hct 26.6 L MCV 110.9 H MCH RDW Plt Count 130 L Immature Gran # Neutrophils # Monocytes # 1.2 H Eosinophils # 1.2 H Eosinophils # (Manual) NRBC/100 WBC Diff Macrocytosis Marked A Macrocytosis (manual) Sodium 133 L Chloride Carbon Dioxide 20 L BUN 53 H Creatinine 1.60 H Est GFR (CKD-EPI) BUN/Creatinine Ratio Glucose POC Glucose (mg/dL) 123 H Calcium 8.2 L Total Bilirubin 2.0 H AST 104 H ALT Alkaline Phosphatase 178 H NT-Pro-B Natriuret Pep Total Protein 5.3 L Albumin 1.9 L Globulin Albumin/Globulin Ratio 08/11/23 08/11/23 08/11/23 13:01 17:39 20:24 WBC RBC Hgb Hct MCV MCH RDW Plt Count Immature Gran # Neutrophils # Monocytes # Eosinophils # Eosinophils # (Manual) NRBC/100 WBC Diff Macrocytosis Macrocytosis (manual) Sodium Chloride Carbon Dioxide BUN Creatinine Est GFR (CKD-EPI) BUN/Creatinine Ratio Glucose POC Glucose (mg/dL) 142 H 113 H 118 H Calcium Total Bilirubin AST ALT Alkaline Phosphatase NT-Pro-B Natriuret Pep Total Protein Albumin Globulin Albumin/Globulin Ratio 08/12/23 08/12/23 08/12/23 06:37 06:37 10:31 WBC 11.25 H RBC 2.27 L 2.45 L Hgb 8.1 L 8.8 L Hct 24.0 L 27.4 L MCV 105.7 H 111.6 H MCH 35.7 H 35.7 H RDW 16.6 H Plt Count 127 L Immature Gran # 0.08 H Neutrophils # Monocytes # 1.81 H Eosinophils # 1.95 H Eosinophils # (Manual) NRBC/100 WBC Diff Macrocytosis Marked A Macrocytosis (manual) Sodium 132 L Chloride Carbon Dioxide BUN 51.7 H Creatinine 1.7 H Est GFR (CKD-EPI) BUN/Creatinine Ratio 30.41 H Glucose POC Glucose (mg/dL) Calcium 8.5 L Total Bilirubin 1.5 H AST 95 H ALT Alkaline Phosphatase 179 H NT-Pro-B Natriuret Pep Total Protein 5.3 L Albumin 2.2 L Globulin Albumin/Globulin Ratio 0.71 L 08/12/23 08/12/23 08/12/23 11:56 17:23 20:04 WBC RBC Hgb Hct MCV MCH RDW Plt Count Immature Gran # Neutrophils # Monocytes # Eosinophils # Eosinophils # (Manual) NRBC/100 WBC Diff Macrocytosis Macrocytosis (manual) Sodium Chloride Carbon Dioxide BUN Creatinine Est GFR (CKD-EPI) BUN/Creatinine Ratio Glucose POC Glucose (mg/dL) 121 H 142 H 125 H Calcium Total Bilirubin AST ALT Alkaline Phosphatase NT-Pro-B Natriuret Pep Total Protein Albumin Globulin Albumin/Globulin Ratio 08/13/23 08/13/23 08/13/23 05:51 05:51 07:05 WBC 10.32 H RBC 2.28 L Hgb 8.2 L Hct 24.2 L MCV 106.1 H MCH 36.0 H RDW 16.3 H Plt Count 131 L Immature Gran # 0.10 H Neutrophils # Monocytes # 1.99 H Eosinophils # 1.55 H Eosinophils # (Manual) NRBC/100 WBC Diff Macrocytosis Macrocytosis (manual) Sodium 133 L Chloride Carbon Dioxide BUN 53.0 H Creatinine 1.9 H Est GFR (CKD-EPI) 26 L BUN/Creatinine Ratio 27.89 H Glucose POC Glucose (mg/dL) 124 H Calcium Total Bilirubin 1.6 H AST 96 H ALT Alkaline Phosphatase 200 H NT-Pro-B Natriuret Pep Total Protein 5.8 L Albumin 2.5 L Globulin Albumin/Globulin Ratio 0.76 L Assessment and Plan Assessment: This is an 78 y/o woman with right upper abdominal pain flank pain with elevated bilirubin chest pneumonitis and was felt that she passed gallstone and had laparoscopic cholecystectomy. It seems that the patient was felt she had the cellulitis of the extremity lower. She is getting morphine, Dilaudid [place]. She's having fluctuation of mentation Delirium due to multifactorial: Abdominal issues status post cholecystectomy, transaminitis, cellulitis, medication induced (Opiates) and hospital induced--currently doing better. Right abdominal pain flank pain and was felt she had gallbladder sludge status post laparoscopic old secondary History of perforated gall ulcer status post postsurgical repair Cellulitis Plan: I ordered a routine EEG because of her repeated confusion but this does not appear like a seizure I ordered ammonia level, TSH, vitamin B-12 and folate We'll defer the rest of the medical management to the primary and other specialist. Infection disease and general surgery team is on board. 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 Time with Patient: Greater than 30
--- NOTE | 2023-08-13 15:13 | P.PN ---
Subjective Progress Note Date: 08/13/23 This is a pleasant 78-year-old female who was recently admitted with right upper quadrant abdominal pain and recently has undergone cholecystectomy. Patient had some noted blood clots in the brief although unable to determine if it was vaginally or per rectum. Hemoglobin is stable and general surgery is following and there is some noted scant blood on the brief today and after exam there is noted to be 2 internal/external hemorrhoids noted that have some fresh blood on them. Patient also having an acute altered mentation which is likely secondary to narcotics as patient did receive some Dilaudid a day or so ago and has been receiving [place]. Patient was given IV Narcan with improvements in mentation and neurology has been consulted and appreciate input and recommendations. Recommend avoiding all narcotics and will adjust medications. Per surgery continue to hold Eliquis. Review of systems: Constitutional: reports of fatigue, no fever, or chills Cardiovascular: No reports of chest pain or palpitations Respiratory: No reports of shortness of breath or cough GI: No reports of nausea, no reports of vomiting, no reports of diarrhea : No reports of dysuria or retention, reports is incontinent Neurovascular: reports of generalized weakness, reports back pain All medications have been reviewed Active Medications Acetaminophen (Acetaminophen Tab 325 Mg Tab) 650 mg PO Q6HR PRN PRN Reason: Mild Pain or Fever > 100.5 Last Admin: 08/12/23 18:10 Dose: 650 mg Albuterol/Ipratropium (Ipratropium-Albuterol 3 Ml Neb) 3 ml INHALATION RT-QID PRN PRN Reason: Shortness Of Breath Cefdinir (Cefdinir 300 Mg Cap) 300 mg PO HS [facility]; Protocol Last Admin: 08/12/23 20:35 Dose: 300 mg Cholecalciferol (Cholecalciferol 125 Mcg (5000 Iu) Tablet) 125 mcg PO DAILY [facility] Last Admin: 08/13/23 09:03 Dose: 125 mcg Cyanocobalamin (Cyanocobalamin 500 Mcg Tab) 1,000 mcg PO DAILY [facility] Last Admin: 08/13/23 09:03 Dose: 1,000 mcg Dapagliflozin (Dapagliflozin Propanediol 10 Mg Tablet) 10 mg PO DAILY [facility] Last Admin: 08/13/23 09:03 Dose: 10 mg Famotidine (Famotidine 20 Mg/2 Ml Vial) 20 mg IV Q12HR [facility] Last Admin: 08/13/23 09:05 Dose: 20 mg Ferrous Sulfate (Ferrous Sulfate 325 Mg Tab) 325 mg PO DAILY [facility] Last Admin: 08/13/23 09:06 Dose: 325 mg Folic Acid (Folic Acid 1 Mg Tab) 1 mg PO DAILY [facility] Last Admin: 08/13/23 09:06 Dose: 1 mg Magnesium Oxide (Magnesium Oxide 400 Mg Tab) 400 mg PO HS [facility] Last Admin: 08/12/23 20:36 Dose: 400 mg Metoprolol Tartrate (Metoprolol Tartrate 12.5 Mg Tab) 12.5 mg PO BID [facility] Last Admin: 08/13/23 09:40 Dose: 12.5 mg Multivitamins (Multivitamins, Thera 1 Each Tab) 1 each PO DAILY@1200 [facility] Last Admin: 08/13/23 12:29 Dose: 1 each Naloxone HCl (Naloxone 0.4 Mg/Ml 1 Ml Vial) 0.2 mg IV Q2M PRN PRN Reason: Opioid Reversal Last Admin: 08/13/23 10:59 Dose: 0.2 mg Naloxone HCl (Naloxone 0.4 Mg/Ml 1 Ml Vial) 0.2 mg IV Q2M PRN PRN Reason: Opioid Reversal Ondansetron HCl (Ondansetron 4 Mg/2 Ml Vial) 4 mg IVP Q6HR PRN PRN Reason: Nausea And Vomiting Tamsulosin HCl (Tamsulosin 0.4 Mg Cap.Er.24h) 0.4 mg PO PC-BRKFST [facility] Last Admin: 08/13/23 09:03 Dose: 0.4 mg Thiamine HCl (Thiamine 100 Mg Tab) 100 mg PO BID-W/MEALS [facility] Last Admin: 08/13/23 09:02 Dose: 100 mg Torsemide (Torsemide 20 Mg Tab) 20 mg PO DAILY [facility] Last Admin: 08/13/23 09:06 Dose: 20 mg Witch Rashmi (Witch Rashmi 1 Each Med..Pad) 1 each TOPICAL AC-BID [facility] PHYSICAL EXAMINATION: GENERAL: The patient is alert and oriented x2-3 lethargic although arousable, Well developed, well nourished. Elderly appearing HEENT: Pupils are round and equally reacting to light. EOMI. no scleral icterus. No conjunctival pallor. Normocephalic, atraumatic. No pharyngeal erythema. No thyromegaly. CARDIOVASCULAR: S1 and S2 muffled PULMONARY: diminished breath sounds bilaterally with no wheezing or rhonchi noted. ABDOMEN: soft. tender on exam. obese. non-distended, normoactive bowel sounds. No palpable organomegaly. Left side inguinal hernia noted that is reproducible, multiple surgical sites with dried blood and no drainage or redness noted surrounding MUSCULOSKELETAL: No joint swelling or deformity. EXTREMITIES: No cyanosis, clubbing, or pedal edema. NEUROLOGICAL: Gross neurological examination did not reveal any focal deficits. Diffuse weakness SKIN: No rashes. Assessment: Acute cholecystitis, status post laparoscopic cholecystectomy Left leg cellulitis, present on admission, improved Altered mental status with acute confusion, likely toxic encephalopathy secondary to narcotic use, mentation improved after Narcan use Blood noted on brief, likely secondary to internal and external hemorrhoids, ruled out GI bleed History of paroxysmal atrial fibrillation Leukocytosis likely secondary to cellulitis, improved Generalized weakness with gait dysfunction Asthma history, not in exacerbation Hypertension history History of degenerative joint disease GI prophylaxis DVT prophylaxis Full code Plan: Recommend to continue with current medications and management with multiple medical consultations following. Patient has been seen and evaluated by general surgery status postcholecystectomy and is tolerating diet and having bowel movements. Patient was noted to have some blood in her brief yesterday and was on Eliquis which is on hold currently with concerns of GI bleeding. Appears on exam there are 2 large external and internal hemorrhoids noted at the top of the rectum that have minimal oozing of blood noted Encouraged to increase activity as tolerated and recommend PT/OT therapy daily. Patient would like to return to physical therapy rehab although is reluctant and would like to take the patient home Hold all narcotics and will continue with Tylenol and other measures for pain as patient's mentation had been waxing and waning and patient becoming confused. Consulted neurology. CT brain was negative for any acute findings If patient is agitated or restless at night will add low-dose as needed Seroquel Patient is currently continued on cefdinir with infectious disease following and recommend to continue a 5-day course Will follow-up with repeat labs and continue to monitor closely. Transfuse if 7 or less Due to multiple complex medical issues, prognosis is guarded The impression and plan of care has been dictated by Kailey Bates, nurse practitioner as directed. Dr. Martin MD I have performed a history and examination and MDM of this patient, discussed the same with the dictator, and agree with the dictator's assessment and plan a s written ,documented as a scribe. Based on total visit time, I have performed more than 50% of the visit. Any additional findings or plans will be noted. Objective - Vital Signs Vital signs: Vital Signs Temp 97.7 F 08/13/23 12:28 Pulse 71 08/13/23 12:28 Resp 20 08/13/23 12:28 BP 141/78 08/13/23 12:28 Pulse Ox 97 08/13/23 12:28 FiO2 Intake & Output 08/12/23 08/13/23 08/13/23 18:59 06:59 18:59 Intake Total 50 Output Total 1 Balance 50 -1 Weight 73 kg Intake: Intake, IV Titration 50 Amount Cefepime 1 gm In Sodium 50 Chloride 0.9% 50 ml @ 12. 5 mls/hr IVPB Q12HR [facility] Rx#:[id number] Output: Stool 1 Other: Voiding Method Diaper Diaper Diaper # Voids 1 1 # Bowel Movements 2 - Labs CBC & Chem 7: 08/13/23 05:51 08/13/23 05:51 Labs: Abnormal Lab Results - Last 24 Hours (Table) 08/12/23 08/12/23 08/13/23 Range/Units 17:23 20:04 05:51 WBC 10.32 H (4.50-10.00) X 10*3/uL RBC 2.28 L (4.10-5.20) X 10*6/uL Hgb 8.2 L (12.0-15.0) g/dL Hct 24.2 L (37.2-46.3) % MCV 106.1 H (80.0-97.0) [place] MCH 36.0 H (27.0-32.0) pg RDW 16.3 H (11.5-14.5) % Plt Count 131 L (140-440) X 10*3/uL Immature Gran # 0.10 H (0.00-0.04) X 10*3/uL Monocytes # 1.99 H (0.20-1.00) X 10*3/uL Eosinophils # 1.55 H (0.04-0.35) X 10*3/uL Sodium (135-145) mmol/L BUN (9.0-27.0) mg/dL Creatinine (0.6-1.5) mg/dL Est GFR (CKD-EPI) (>=60) BUN/Creatinine Ratio (12.00-20.00) Ratio POC Glucose (mg/dL) 142 H 125 H (70-110) mg/dL Total Bilirubin (0.3-1.2) mg/dL AST (13-35) U/L Alkaline Phosphatase (41-126) U/L Total Protein (6.2-8.2) g/dL Albumin (3.8-4.9) g/dL Albumin/Globulin Ratio (1.60-3.17) Ratio 08/13/23 08/13/23 Range/Units 05:51 07:05 WBC (4.50-10.00) X 10*3/uL RBC (4.10-5.20) X 10*6/uL Hgb (12.0-15.0) g/dL Hct (37.2-46.3) % MCV (80.0-97.0) FL MCH (27.0-32.0) pg RDW (11.5-14.5) % Plt Count (140-440) X 10*3/uL Immature Gran # (0.00-0.04) X 10*3/uL Monocytes # (0.20-1.00) X 10*3/uL Eosinophils # (0.04-0.35) X 10*3/uL Sodium 133 L (135-145) mmol/L BUN 53.0 H (9.0-27.0) mg/dL Creatinine 1.9 H (0.6-1.5) mg/dL Est GFR (CKD-EPI) 26 L (>=60) BUN/Creatinine Ratio 27.89 H (12.00-20.00) Ratio POC Glucose (mg/dL) 124 H (70-110) mg/dL Total Bilirubin 1.6 H (0.3-1.2) mg/dL AST 96 H (13-35) U/L Alkaline Phosphatase 200 H (41-126) U/L Total Protein 5.8 L (6.2-8.2) g/dL Albumin 2.5 L (3.8-4.9) g/dL Albumin/Globulin Ratio 0.76 L (1.60-3.17) Ratio
--- NOTE | 2023-08-13 15:44 | P.PN ---
Subjective Progress Note Date: 08/13/23 Principal diagnosis: Reason for follow-up is left thigh and leg cellulitis Patient is a 78-year-old female with a past medical history significant for hypertension heart failure asthma heart failure lymphoma, presenting to the hospital with increasing swelling and redness to left lower extremity has been diagnosed with the cellulitis. On today's evaluation that is 08/13/2023,the patient remains to be afebrile, patient is on room air not requiring supplemental oxygen patient seem to be more confused today per the at the bedside and did not provide any history no vomiting diarrhea or any changes reported. Patient white count is 10.32, creatinine is 1.9 culture negative Objective - Vital Signs Vital signs: Vital Signs Temp 97.7 F 08/13/23 12:28 Pulse 71 08/13/23 12:28 Resp 20 08/13/23 12:28 BP 141/78 08/13/23 12:28 Pulse Ox 97 08/13/23 12:28 FiO2 Intake & Output 08/12/23 08/13/23 08/13/23 18:59 06:59 18:59 Intake Total 50 Output Total 1 Balance 50 -1 Weight 73 kg Intake: Intake, IV Titration 50 Amount Cefepime 1 gm In Sodium 50 Chloride 0.9% 50 ml @ 12. 5 mls/hr IVPB Q12HR [facility] Rx#:[id number] Output: Stool 1 Other: Voiding Method Diaper Diaper Diaper # Voids 1 1 # Bowel Movements 2 - Exam GENERAL DESCRIPTION: An elderly female lying in bed in no distress RESPIRATORY SYSTEM: Unlabored breathing , decreased breath sounds at bases HEART: S1 S2 regular rate and rhythm , ABDOMEN: Soft , no tenderness EXTREMITIES: Patient left thigh and leg swelling and redness slightly decreased - Labs CBC & Chem 7: 08/13/23 05:51 08/13/23 05:51 Labs: Abnormal Lab Results - Last 24 Hours (Table) 08/12/23 08/12/23 08/13/23 Range/Units 17:23 20:04 05:51 WBC 10.32 H (4.50-10.00) X 10*3/uL RBC 2.28 L (4.10-5.20) X 10*6/uL Hgb 8.2 L (12.0-15.0) g/dL Hct 24.2 L (37.2-46.3) % MCV 106.1 H (80.0-97.0) FL MCH 36.0 H (27.0-32.0) pg RDW 16.3 H (11.5-14.5) % Plt Count 131 L (140-440) X 10*3/uL Immature Gran # 0.10 H (0.00-0.04) X 10*3/uL Monocytes # 1.99 H (0.20-1.00) X 10*3/uL Eosinophils # 1.55 H (0.04-0.35) X 10*3/uL Sodium (135-145) mmol/L BUN (9.0-27.0) mg/dL Creatinine (0.6-1.5) mg/dL Est GFR (CKD-EPI) (>=60) BUN/Creatinine Ratio (12.00-20.00) Ratio POC Glucose (mg/dL) 142 H 125 H (70-110) mg/dL Total Bilirubin (0.3-1.2) mg/dL AST (13-35) U/L Alkaline Phosphatase (41-126) U/L Total Protein (6.2-8.2) g/dL Albumin (3.8-4.9) g/dL Albumin/Globulin Ratio (1.60-3.17) Ratio 08/13/23/ Range/Units 05:51 07:05 WBC (4.50-10.00) X 10*3/uL RBC (4.10-5.20) X 10*6/uL Hgb (12.0-15.0) g/dL Hct (37.2-46.3) % MCV (80.0-97.0) FL MCH (27.0-32.0) pg RDW (11.5-14.5) % Plt Count (140-440) X 10*3/uL Immature Gran # (0.00-0.04) X 10*3/uL Monocytes # (0.20-1.00) X 10*3/uL Eosinophils # (0.04-0.35) X 10*3/uL Sodium 133 L (135-145) mmol/L BUN 53.0 H (9.0-27.0) mg/dL Creatinine 1.9 H (0.6-1.5) mg/dL Est GFR (CKD-EPI) 26 L (>=60) BUN/Creatinine Ratio 27.89 H (12.00-20.00) Ratio POC Glucose (mg/dL) 124 H (70-110) mg/dL Total Bilirubin 1.6 H (0.3-1.2) mg/dL AST 96 H (13-35) U/L Alkaline Phosphatase 200 H (41-126) U/L Total Protein 5.8 L (6.2-8.2) g/dL Albumin 2.5 L (3.8-4.9) g/dL Albumin/Globulin Ratio 0.76 L (1.60-3.17) Ratio Assessment and Plan (1) Left leg cellulitis Current Visit: Yes Status: Acute Code(s): L03.116 - CELLULITIS OF LEFT LOWER LIMB SNOMED Code(s): 20457330798948428 (2) Allergy to penicillin Current Visit: No Status: Acute Code(s): Z88.0 - ALLERGY STATUS TO PENICILLIN SNOMED Code(s): 41117921 (3) Elevated WBC count Current Visit: Yes Status: Acute Code(s): D72.829 - ELEVATED WHITE BLOOD CELL COUNT, UNSPECIFIED SNOMED Code(s): 769004968 Plan: 1-Patient presented to hospital with multiple symptoms including increasing swelling to the left lower extremity in this patient who did have some redness and hard area to the left medial thigh however CT did not show any evidence of abscess 2-patient also have elevated liver enzymes however CT as well as ultrasound did not show any evidence of gallbladder stone or dilated CBD, patient is status postcholecystectomy completed on 08/06/2023 3--patient is afebrile patient white count has normalized patient to continue with the oral Omnicef did have significant mental status changes for which neurology has been consulted question concern answered Dictation was produced using [employer] dictation software. please excuse any grammatical, word or spelling errors. Time with Patient: Less than 30
[2023-08-13 17:01] LABS: Glucose,Whole Blood 122 mg/dL (70-110)
[2023-08-13 19:59] LABS: Glucose,Whole Blood 134 mg/dL (70-110)
[2023-08-13 22:17] LABS: Vitamin B12 >3600.0 pg/mL (200.0-944.0)
[2023-08-14 07:18] LABS: Glucose,Whole Blood 93 mg/dL (70-110)
[2023-08-14 12:32] LABS: Glucose,Whole Blood 140 mg/dL (70-110)
--- NOTE | 2023-08-14 14:15 | P.PN ---
Subjective Progress Note Date: 08/14/23 This is a pleasant 78-year-old female who was recently admitted with right upper quadrant abdominal pain and recently has undergone cholecystectomy. Patient had some noted blood clots in the brief although unable to determine if it was vaginally or per rectum. Hemoglobin is stable and general surgery is following and there is some noted scant blood on the brief today and after exam there is noted to be 2 internal/external hemorrhoids noted that have some fresh blood on them. Patient also having an acute altered mentation which is likely secondary to narcotics as patient did receive some Dilaudid a day or so ago and has been receiving [place]. Patient was given IV Narcan with improvements in mentation and neurology has been consulted and appreciate input and recommendations. Recommend avoiding all narcotics and will adjust medications. Per surgery continue to hold Eliquis. 08/14/2023 Patient is seen and evaluated in follow-up today mentation is improving and patient continues to have some episodes of confusion although much improved from yesterday. All narcotics have been on hold. Multiple medical consultations following including infectious disease, general surgery, neurology and underwent EEG which is pending at this time. CT of the brain was negative. Patient continues on antibiotics in the form of cefdinir and will continue, blood cultures have been negative. Ammonia was slightly elevated at 30 and will continue lactulose and follow-up with repeat labs. Patient has been advanced to regular diet and tolerating with no reports of nausea or vomiting noted. Recommend to continue with Ensure supplements and would recommend physical therapy daily as patient is significantly weak and has had multiple hospitalizations over the last few months. is extremely concerned of patient going to [facility] and discussed at length about possible inpatient rehab. Will place a consult to Dr. Delcid for inpatient rehab at [facility]. Encouraged increase activity as tolerated and strongly recommend physical therapy daily. Patient with history of heart failure is maintained on torsemide and kidney functions mildly elevated at 1.9 will cut the dose in half and will continue and follow-up on repeat labs. Review of systems: Constitutional: reports of fatigue, no fever, or chills Cardiovascular: No reports of chest pain or palpitations Respiratory: No reports of shortness of breath or cough GI: No reports of nausea, no reports of vomiting, no reports of diarrhea, reports less abdominal pain and tolerating diet : No reports of dysuria or retention, reports is incontinent Neurovascular: reports of generalized weakness, reports back pain All medications have been reviewed Active Medications Acetaminophen (Acetaminophen Tab 325 Mg Tab) 650 mg PO Q6HR PRN PRN Reason: Mild Pain or Fever > 100.5 Last Admin: 08/13/23 20:54 Dose: 650 mg Albuterol/Ipratropium (Ipratropium-Albuterol 3 Ml Neb) 3 ml INHALATION RT-QID PRN PRN Reason: Shortness Of Breath Cefdinir (Cefdinir 300 Mg Cap) 300 mg PO [facility]; Protocol Last Admin: 08/13/23 20:54 Dose: 300 mg Cholecalciferol (Cholecalciferol 125 Mcg (5000 Iu) Tablet) 125 mcg PO DAILY [facility] Last Admin: 08/14/23 08:12 Dose: 125 mcg Cyanocobalamin (Cyanocobalamin 500 Mcg Tab) 1,000 mcg PO DAILY [facility] Last Admin: 08/14/23 08:11 Dose: 1,000 mcg Dapagliflozin (Dapagliflozin Propanediol 10 Mg Tablet) 10 mg PO DAILY [facility] Last Admin: 08/14/23 08:11 Dose: 10 mg Famotidine (Famotidine 20 Mg/2 Ml Vial) 20 mg IV Q12HR [facility] Last Admin: 08/14/23 08:00 Dose: 20 mg Ferrous Sulfate (Ferrous Sulfate 325 Mg Tab) 325 mg PO DAILY [facility] Last Admin: 08/14/23 08:00 Dose: 325 mg Folic Acid (Folic Acid 1 Mg Tab) 1 mg PO DAILY [facility] Last Admin: 08/14/23 08:00 Dose: 1 mg Lactulose (Lactulose 20 Gm/30 Ml Cup) 10 gm PO BID [facility] Stop: 08/15/23 13:00 Magnesium Oxide (Magnesium Oxide 400 Mg Tab) 400 mg PO [facility] Last Admin: 08/13/23 20:54 Dose: 400 mg Metoprolol Tartrate (Metoprolol Tartrate 12.5 Mg Tab) 12.5 mg PO BID [facility] Last Admin: 08/14/23 08:00 Dose: 12.5 mg Multivitamins (Multivitamins, Thera 1 Each Tab) 1 each PO DAILY@1200 [facility] Last Admin: 08/14/23 11:53 Dose: 1 each Naloxone HCl (Naloxone 0.4 Mg/Ml 1 Ml Vial) 0.2 mg IV Q2M PRN PRN Reason: Opioid Reversal Last Admin: 08/13/23 10:59 Dose: 0.2 mg Naloxone HCl (Naloxone 0.4 Mg/Ml 1 Ml Vial) 0.2 mg IV Q2M PRN PRN Reason: Opioid Reversal Ondansetron HCl (Ondansetron 4 Mg/2 Ml Vial) 4 mg IVP Q6HR PRN PRN Reason: Nausea And Vomiting Tamsulosin HCl (Tamsulosin 0.4 Mg Cap.Er.24h) 0.4 mg PO PC-BRKFST [facility] Last Admin: 08/14/23 07:50 Dose: 0.4 mg Thiamine HCl (Thiamine 100 Mg Tab) 100 mg PO BID-W/MEALS [facility] Last Admin: 08/14/23 07:50 Dose: 100 mg Torsemide (Torsemide 20 Mg Tab) 10 mg PO DAILY [facility] Witch Rashmi (Witch Rashmi 1 Each Med..Pad) 1 each TOPICAL AC-BID [facility] Last Admin: 08/14/23 07:51 Dose: 1 each PHYSICAL EXAMINATION: GENERAL: The patient is alert and oriented x2-3 much more awake today, Well developed, well nourished. Elderly appearing HEENT: Pupils are round and equally reacting to light. EOMI. no scleral icterus. No conjunctival pallor. Normocephalic, atraumatic. No pharyngeal erythema. No thyromegaly. CARDIOVASCULAR: S1 and S2 muffled PULMONARY: diminished breath sounds bilaterally with no wheezing or rhonchi noted. ABDOMEN: soft. tender on exam. obese. non-distended, normoactive bowel sounds. No palpable organomegaly. Left side inguinal hernia noted that is reproducible, multiple surgical sites with dried blood and no drainage or redness noted surrounding MUSCULOSKELETAL: No joint swelling or deformity. EXTREMITIES: No cyanosis, clubbing, or pedal edema. NEUROLOGICAL: Gross neurological examination did not reveal any focal deficits. Diffuse weakness SKIN: No rashes. Assessment: Acute cholecystitis, status post laparoscopic cholecystectomy Left leg cellulitis, present on admission, improved Altered mental status with acute confusion, likely toxic encephalopathy secondary to narcotic use, mentation improved after Narcan use Blood noted on brief, likely secondary to internal and external hemorrhoids, ruled out GI bleed History of paroxysmal atrial fibrillation Leukocytosis likely secondary to cellulitis, improved Generalized weakness with gait dysfunction Asthma history, not in exacerbation Hypertension history History of degenerative joint disease GI prophylaxis DVT prophylaxis Full code Plan: Recommend to continue with current medications and management with multiple medical consultations following. Patient has been seen and evaluated by general surgery status postcholecystectomy and is tolerating diet and having bowel movements. Patient was noted to have some blood in her brief yesterday and was on Eliquis which is on hold currently with concerns of GI bleeding. Appears on exam there are 2 large external and internal hemorrhoids noted at the top of the rectum that have minimal oozing of blood noted Ammonia is mildly elevated at 30 today will give lactulose for today and follow- up on repeat lab. Encouraged to increase activity as tolerated and recommend PT/OT therapy daily. Patient would like to return to rehab for continued physical therapy although is reluctant and would like to take the patient home. Had a lengthy discussion regarding multiple hospitalizations and progressive weakness over the last few months and will place a consult to inpatient rehab at [facility] for evaluation. Patient and Teddy are agreeable to this Hold all narcotics and will continue with Tylenol and other measures for pain as patient's mentation had been waxing and waning and patient becoming confused. Neurology following. CT brain was negative for any acute findings. EEG was taken and pending If patient is agitated or restless at night will add low-dose as needed Seroquel Patient is currently continued on cefdinir with infectious disease following and recommend to continue a 5-day course Will await consult with Dr. Delcid for possible inpatient rehab as patient would benefit from rehab for continued strength and mobility. Patient has had multiple prolonged hospitalizations most recently and patient is significantly weak. Patient was independent prior to these most recent hospitalizations. Will follow-up with repeat labs and continue to monitor closely. Transfuse if 7 or less Due to multiple complex medical issues, prognosis is guarded The impression and plan of care has been dictated by Kailey Bates, nurse practitioner as directed. Dr. Martin MD I have performed a history and examination and MDM of this patient, discussed the same with the dictator, and agree with the dictator's assessment and plan as written ,documented as a scribe. Based on total visit time, I have performed more than 50% of the visit. Any additional findings or plans will be noted. Objective - Vital Signs Vital signs: Vital Signs Temp 97.7 F 08/14/23 07:38 Pulse 100 08/14/23 08:45 Resp 18 08/14/23 08:45 BP 121/68 08/14/23 07:38 Pulse Ox 100 08/14/23 07:38 FiO2 Intake & Output 08/13/23 08/14/23 08/14/23 18:59 06:59 18:59 Intake Total 360 590 Output Total 750 700 Balance -390 -110 Weight 73.5 kg Intake: Oral 360 590 Output: Urine 750 700 Other: Voiding Method Diaper Diaper Diaper External Catheter External Catheter # Voids 1 1 # Bowel Movements 1 - Labs CBC & Chem 7: 08/13/23 05:51 08/13/23 05:51 Labs: Abnormal Lab Results - Last 24 Hours (Table) 08/13/23 08/13/23 08/13/23 Range/Units 14:57 14:57 14:57 POC Glucose (mg/dL) (70-110) mg/dL Ammonia 30 H (<30) umol/L Vitamin B12 >3600.0 H (200.0-944.0) pg/mL Folate 40.00 H (4.40-31.00) ng/mL 08/13/23 08/13/23 08/14/23 Range/Units 16:59 19:58 12:26 POC Glucose (mg/dL) 122 H 134 H 140 H (70-110) mg/dL Ammonia (<30) umol/L Vitamin B12 (200.0-944.0) pg/mL Folate (4.40-31.00) ng/mL
--- NOTE | 2023-08-14 15:28 | P.PN ---
Subjective Progress Note Date: 08/14/23 I am following-up with patient and she feels she is doing better. Per nurse she is much better compared to yesterday in morning mentation muro. She is not agitated or restless. Objective - Vital Signs Vital signs: Vital Signs Temp 98.1 F 08/14/23 14:31 Pulse 77 08/14/23 14:31 Resp 18 08/14/23 14:31 BP 123/57 08/14/23 14:31 Pulse Ox 98 08/14/23 14:31 FiO2 Intake & Output 08/13/23 08/14/23 08/14/23 18:59 06:59 18:59 Intake Total 360 590 Output Total 750 700 Balance -390 -110 Weight 73.5 kg Intake: Oral 360 590 Output: Urine 750 700 Other: Voiding Method Diaper Diaper Diaper External Catheter External Catheter # Voids 1 1 # Bowel Movements 1 - Exam Some of the workup during this hospital visit consisted of: Her white blood cell is trending down was 25,000 currently is 10.32 thousand Sodium is 133. Sugar is in the 120s. ALT is 39 AST is 96 Vitamin B12: >3600 Serum folate is 40 TSH: 2.[address] of the head is reported as limited exam secondary due to motion artifact and the patient's arms. No acute intracranial process. I personally reviewed the CT and I agree there is limitation because of motion artifact but no visible acute or subacute ischemia from limitation of exam. - Labs CBC & Chem 7: 08/13/23 05:51 08/13/23 05:51 Labs: Abnormal Lab Results - Last 24 Hours (Table) 08/13/23 08/13/23 08/13/23 Range/Units 14:57 14:57 14:57 POC Glucose (mg/dL) (70-110) mg/dL Ammonia 30 H (<30) umol/L Vitamin B12 >3600.0 H (200.0-944.0) pg/mL Folate 40.00 H (4.40-31.00) ng/mL 08/13/23 08/13/23 08/14/23 Range/Units 16:59 19:58 12:26 POC Glucose (mg/dL) 122 H 134 H 140 H (70-110) mg/dL Ammonia (<30) umol/L Vitamin B12 (200.0-944.0) pg/mL Folate (4.40-31.00) ng/mL Assessment and Plan Assessment: This is an 78 y/o woman with right upper abdominal pain flank pain with elevated bilirubin chest pneumonitis and was felt that she passed gallstone and had laparoscopic cholecystectomy. It seems that the patient was felt she had the cellulitis of the extremity lower. She is getting morphine, Dilaudid [place]. She's having fluctuation of mentation Delirium due to multifactorial: Abdominal issues status post cholecystectomy, transaminitis, cellulitis, medication induced (Opiates) and hospital induced--currently doing better. Right abdominal pain flank pain and was felt she had gallbladder sludge status post laparoscopic old secondary History of perforated gall ulcer status post postsurgical repair Cellulitis Plan: Pending routine EEG. We'll defer the rest of the medical management to the primary and other specialist. Infection disease and general surgery team is on board. The plan was discussed with the patient, her nurse and primary team N.P. Time with Patient: Less than 30
[2023-08-14] MEDS: LACTULOSE 20 GM/30 ML CUP PO SCH (15:59)
--- NOTE | 2023-08-14 16:08 | P.PN ---
Subjective Progress Note Date: 08/14/23 CHIEF COMPLAINT: Cholecystitis HISTORY OF PRESENT ILLNESS: Patient postop day #8 status post laparoscopic cholecystectomy. Patient more awake but still confused. No abdominal pain. No further bleeding from rectum reported. Afebrile. No new labs. Ammonia from yesterday 30. Patient seen by neurology PHYSICAL EXAM: VITAL SIGNS: Reviewed. GENERAL: Well-developed in no acute distress. ABDOMEN: Soft. Nondistended. Nontender incision sites clean dry and intact. Reducible left inguinal hernia ASSESSMENT: 1. Cholecystitis with abnormal hydropic gallbladder status post laparoscopic cholecystectomy 2. Cirrhotic liver 3. Acute CHF exacerbation followed by cardiology 4. Acute GI bleed with blood in stools. Patient has hemorrhoids. 5. Left inguinal hernia reducible PLAN: -Recommend outpatient left inguinal hernia repair -Tucks pads added for external hemorrhoids -Agree with discontinuing the narcotics -Hold Eliquis -Continue to monitor hemoglobin -Continue to monitor for any signs or symptoms of bleeding -Continue antibiotics per ID service -Continue pain management -Encourage patient to use incentive spirometer -Encourage patient ambulate Physician Ranch Supervisor note has been reviewed by physician. Signing provider agrees with the documented findings, assessment, and plan of care. Objective - Vital Signs Vital signs: Vital Signs Temp 98.1 F 08/14/23 14:31 Pulse 77 08/14/23 14:31 Resp 18 08/14/23 14:31 BP 123/57 08/14/23 14:31 Pulse Ox 98 08/14/23 14:31 FiO2 Intake & Output 08/13/23 08/14/23 08/14/23 18:59 06:59 18:59 Intake Total 360 590 Output Total 750 700 Balance -390 -110 Weight 73.5 kg Intake: Oral 360 590 Output: Urine 750 700 Other: Voiding Method Diaper Diaper Diaper External Catheter External Catheter # Voids 1 1 # Bowel Movements 1 - Labs CBC & Chem 7: 08/13/23 05:51 08/13/23 05:51 Labs: Abnormal Lab Results - Last 24 Hours (Table) 08/13/23 08/13/23 08/13/23 Range/Units 14:57 14:57 16:59 POC Glucose (mg/dL) 122 H (70-110) mg/dL Vitamin B12 >3600.0 H (200.0-944.0) pg/mL Folate 40.00 H (4.40-31.00) ng/mL 08/13/23 08/14/23 Range/Units 19:58 12:26 POC Glucose (mg/dL) 134 H 140 H (70-110) mg/dL Vitamin B12 (200.0-944.0) pg/mL Folate (4.40-31.00) ng/mL
[2023-08-14 17:35] LABS: Glucose,Whole Blood 162 mg/dL (70-110)
--- NOTE | 2023-08-14 18:05 | P.PN ---
Subjective Progress Note Date: 08/14/23 Principal diagnosis: Reason for follow-up is left thigh and leg cellulitis Patient is a 78-year-old female with a past medical history significant for hypertension heart failure asthma heart failure lymphoma, presenting to the hospital with increasing swelling and redness to left lower extremity has been diagnosed with the cellulitis. On today's evaluation that is 08/14/2023, the patient continues to be afebrile, the patient is on room air and breathing comfortably, the Pt denies having any chest pain or cough, the patient denies having any abdominal pain no vomiting or any diarrhea. No new labs has been obtained today Objective - Vital Signs Vital signs: Vital Signs Temp 97.7 F 08/14/23 07:38 Pulse 100 08/14/23 08:45 Resp 18 08/14/23 08:45 BP 121/68 08/14/23 07:38 Pulse Ox 100 08/14/23 07:38 FiO2 Intake & Output 08/13/23 08/14/23 08/14/23 18:59 06:59 18:59 Intake Total 360 590 Output Total 750 700 Balance -390 -110 Weight 73.5 kg Intake: Oral 360 590 Output: Urine 750 700 Other: Voiding Method Diaper Diaper Diaper External Catheter External Catheter # Voids 1 1 # Bowel Movements 1 - Exam GENERAL DESCRIPTION: An elderly female lying in bed in no distress RESPIRATORY SYSTEM: Unlabored breathing , decreased breath sounds at bases HEART: S1 S2 regular rate and rhythm , ABDOMEN: Soft , no tenderness EXTREMITIES: Patient left thigh and leg swelling and redness slightly decreased - Labs CBC & Chem 7: 08/13/23 05:51 08/13/23 05:51 Labs: Abnormal Lab Results - Last 24 Hours (Table) 08/13/23 08/13/23 08/13/23 Range/Units 14:57 14:57 14:57 POC Glucose (mg/dL) (70-110) mg/dL Ammonia 30 H (<30) umol/L Vitamin B12 >3600.0 H (200.0-944.0) pg/mL Folate 40.00 H (4.40-31.00) ng/mL 08/13/23 08/13/23 08/14/23 Range/Units 16:59 19:58 12:26 POC Glucose (mg/dL) 122 H 134 H 140 H (70-110) mg/dL Ammonia (<30) umol/L Vitamin B12 (200.0-944.0) pg/mL Folate (4.40-31.00) ng/mL Assessment and Plan (1) Left leg cellulitis Current Visit: Yes Status: Acute Code(s): L03.116 - CELLULITIS OF LEFT LOWER LIMB SNOMED Code(s): 45502029065204587 (2) Allergy to penicillin Current Visit: No Status: Acute Code(s): Z88.0 - ALLERGY STATUS TO PENICILLIN SNOMED Code(s): 09728689 (3) Elevated WBC count Current Visit: Yes Status: Acute Code(s): D72.829 - ELEVATED WHITE BLOOD CELL COUNT, UNSPECIFIED SNOMED Code(s): 346241636 Plan: 1-Patient presented to hospital with multiple symptoms including increasing swelling to the left lower extremity in this patient who did have some redness and hard area to the left medial thigh however CT did not show any evidence of abscess 2-patient also have elevated liver enzymes however CT as well as ultrasound did not show any evidence of gallbladder stone or dilated CBD, patient is status postcholecystectomy completed on 08/06/2023 3--patient is afebrile patient white count has normalized 4-patient to continue with the oral Omnicef did have some improvement in mentation neurology is following the patient at the bedside and question concern answered Dictation was produced using [employer] dictation software. please excuse any grammatical, word or spelling errors. Time with Patient: Less than 30
[2023-08-14 19:56] LABS: Glucose,Whole Blood 151 mg/dL (70-110)
--- NOTE | 2023-08-15 00:12 | EEG ---
ELECTROENCEPHALOGRAM REPORT CLINICAL HISTORY: This is an 78-year-old woman with altered mental status. The video EEG is obtained to evaluate for seizure epileptiform activity. RELEVANT MEDICATION: The patient is not on any antiepileptic drugs. EEG TYPE: A routine 21-channel EEG with video using the 10/20 electrode placement system. DESCRIPTION: Wakefulness is obtained. During awake state, the posterior-dominant rhythm consists of bec-ft-xeckeyom voltage of 8.5 to 9.5 hertz activity. There is no physiological stage 2 sleep architecture. There is no focal slowing. Interictal and ictal is none. ACTIVATION PROCEDURE: Photic stimulation did not evoke a posterior driving response. There is no abnormality during the photic stimulation. Hyperventilation is not performed. CLINICAL INTERPRETATION: This is a normal routine EEG. There is no focal slowing, epileptiform discharge, or seizure on the EEG. Normal routine EEG does not rule out underlying epilepsy. Clinical correlation is recommended. KENNEDY / DESTINY: [id number] / MTDD
[2023-08-15 07:04] LABS: Glucose,Whole Blood 112 mg/dL (70-110)
[2023-08-15] MEDS: TORSEMIDE 20 MG TAB PO SCH (10:00)
[2023-08-15 11:48] LABS: ALT 35 U/L (8-44); AST 79 U/L (13-35); Albumin 2.2 g/dL (3.8-4.9); Albumin/Globulin Ratio 0.71 Ratio (1.60-3.17); Alkaline Phosphatase 205 U/L (41-126); BUN/Creat Ratio 25.95 Ratio (12.00-20.00); Blood Urea Nitrogen 49.3 mg/dL (9.0-27.0); Chloride 107 mmol/L (96-109); Globulin 3.1 g/dL (1.6-3.3); Glucose 102 mg/dL (70-110); Magnesium 2.3 mg/dL (1.5-2.4); Potassium 3.8 mmol/L (3.5-5.5); Sodium 137 mmol/L (135-145); Total Bilirubin 1.7 mg/dL (0.3-1.2); Total Protein 5.3 g/dL (6.2-8.2)
[2023-08-15 12:00] LABS: Glucose,Whole Blood 220 mg/dL (70-110)
[2023-08-15 12:25] LABS: Basophils # (A) 0.08 X 10*3/uL (0.00-0.10); Basophils % (A) 0.6 %; Eosinophils # (A) 1.42 X 10*3/uL (0.04-0.35); Eosinophils % (A) 11.2 %; HCT 23.2 % (37.2-46.3); HGB 7.7 g/dL (12.0-15.0); Lymphocytes % (A) 16.6 %; MCH 34.8 pg (27.0-32.0); MCHC 33.2 g/dL (32.0-37.0); Mean Platelet Volume 10.2 FL (9.5-12.2); Monocytes # (A) 2.57 X 10*3/uL (0.20-1.00); Monocytes % (A) 20.3 %; NRBC Per 100 WBC 0 X 10*3/uL (0.00-0.01); Neutrophils # (A) 6.22 X 10*3/uL (1.80-7.70); Neutrophils % (A) 49.4 %; Platelet Count 133 X 10*3/uL (140-440); RBC 2.21 X 10*6/uL (4.10-5.20); RDW 16.6 % (11.5-14.5); WBC 12.63 X 10*3/uL (4.50-10.00)
--- NOTE | 2023-08-15 12:25 | P.CONS ---
History of Present Illness - Reason for Consult Consult date: 08/15/23 rehab recommendations - Chief Complaint debility - History of Present Illness Mrs Basia Hardy is an 78 y/o right handed female who lives with her in a SS home with 1 LORRI. Prior to admission, she was independent with mobility and ADLs, does have a 2ww at home. She drives. Both patient and are retired, he is supportive. They have " great" neighbors for support, one is a nurse and one is a physical therapist. Mrs Hardy presented to the hospital on 08/03/23 with complaints of bilateral lower extremity edema and right upper abdominal pain with elevated bilirubin and transaminitis.On 08/06/23; she underwent laparoscopic cholecystectomy. She did have some blood in the stool, diagnosed with GIB. She was having issues with pain control and medications were escalated. Patient then developed confusion and altered mental status. neurology consulted, CT head no acute process, EEG with no seizure like activity. PM&R consulted for rehab recommendations. Patient's therapy from 08/12/23 LB dressing min assist, toileting min assist, bed mobility min assist, gait 10 ft min assist using RW, needs PT notes. 08/15/23: Patient states she is doing ok, a bit tired and feels weak. She denies CP, SOB, and abdominal pain. She had a BM today, using purewick for urination. 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 History of Any Multi-Drug Resistant Organisms: None Reported Past Surgical History: Heart Catheterization Additional Past Surgical History / Comment(s): EYE SURGERY DUE TO INJURY, EGD, COLONOSCOPY, BONE MARROW BIOPSY, cataracts, muscle biopsy Past Anesthesia/Blood Transfusion Reactions: No Reported Reaction Past Psychological History: No Psychological Hx Reported Smoking Status: Never smoker Past Alcohol Use History: Occasional Past Drug Use History: None Reported - Past Family History Sister(s) Family Medical History: Cancer Additional Family Medical History / Comment(s): LEUKEMIA- at age 42 Brother(s) Family Medical History: Cancer Additional Family Medical History / Comment(s): with unknown type CA at age 60s Medications and Allergies Home Medications Medication Instructions Recorded Confirmed Type Cyanocobalamin (Vitamin B-12) 1,000 mcg PO DAILY 12/30/20 08/03/23 History [Vitamin B-12] Vit C/E/Zn/Coppr/Lutein/Zeaxan 1 cap PO BID 12/30/20 08/03/23 History [Preservision Areds 2 Softgel] Cholecalciferol (Vitamin D3) 125 mcg PO DAILY 04/25/21 08/03/23 History [Vitamin D3 (125 MCG = 5,000 IU)] Magnesium Oxide [Mag-Ox] 400 mg PO HS 02/04/23 08/03/23 History Folic Acid 1 mg PO DAILY 06/08/23 08/03/23 History Potassium Gluconate 99 mg PO DAILY 06/08/23 08/03/23 History Metoprolol Tartrate [Lopressor] 25 mg PO BID 30 Days #60 tablet 06/12/23 Rx Albuterol Sulfate [Ventolin HFA] 1 - 2 puff INHALATION RT-Q4H PRN 08/03/23 08/03/23 History Apixaban [Eliquis] 2.5 mg PO BID 08/03/23 08/03/23 History Famotidine [Pepcid] 20 mg PO BID 08/03/23 08/03/23 History Ferrous Sulfate [Feosol] 325 mg PO DAILY 08/03/23 08/03/23 History Ipratropium-Albuterol Nebulize 3 ml INHALATION RT-QID PRN 08/03/23 08/03/23 History [Duoneb 0.5 mg-3 mg/3 ml Soln] Torsemide [Demadex] 20 mg PO DAILY 08/03/23 08/03/23 History Allergies Allergy/AdvReac Type Severity Reaction Status Date / Time omeprazole [From Prilosec] Allergy Unknown Rash/Hives, Verified 08/06/23 16:44 TONGUE SWELLLING omeprazole magnesium Allergy Unknown Rash/Hives, Verified 08/06/23 16:44 [From Prilosec] TONGUE SWELLLING Penicillins Allergy Unknown Rash/Hives/ Verified 08/06/23 16:44 Itching amlodipine Allergy fide pedal Verified 08/06/23 16:44 edema, loss voice carvedilol Allergy shortness Verified 08/06/23 16:44 of breath lisinopril Allergy Unknown Verified 08/06/23 16:44 Physical Exam Vitals: Vital Signs Temp Pulse Resp BP Pulse Ox 08/15/23 07:04 98.5 F 84 16 145/60 99 08/15/23 01:37 98.5 F 91 16 151/69 99 08/14/23 20:15 16 08/14/23 20:00 97.7 F 75 16 132/68 100 08/14/23 14:31 98.1 F 77 18 123/57 98 Intake and Output 08/14/23 08/15/23 08/15/23 22:59 06:59 14:59 Intake Total 360 600 Output Total 750 Balance -390 600 Intake: Oral 360 600 Output: Urine 750 Other: Voiding Method Diaper Incontinent # Voids 3 1 # Bowel Movements 4 1 Weight 77.3 kg EXAM; General: WDWN, elderly female, sitting up in bed, NAD, at bedside Head: Normocephalic, atraumatic. Eyes: Symmetric Ears: Symmetric. Hearing within normal limits. Mouth: Clear. Neck: Supple. Cardiac: monitoring manager on, Calves supple, non tender, trace LE edema Lungs: Breathing comfortably on RA. Chest symmetric. Abdomen: Soft, nontender. Extremities: Arthritic changes consistent with age. Neurological: Alert and oriented x 3 Speech is clear and fluent without paraphasic errors Cranial nerves: CN II-XII grossly intact. Sensation: Intact and symmetrical limbs. Musculoskeletal: ROM WFL EXCEPT: decreased bilateral hip flexion, generalized weakness MMT UE Sh Abd EE EF FABD WE HG Right 4+ 4+ 4+ 5 Left 4+ 4+ 4+ 5 MMT LE HF KE DF EHL Right 2+ 3 5 5 Left 2+ 3 5 5 Reflexes Biceps Triceps Brachioradialis Patella Achilles Babinski Hoffmans Right 2 2 2 1 1 Left 2 2 2 1 1 Skin: Skin intact where visible to head, neck, and bilateral upper and lower extremities EXCEPT: abdominal surgical puncture sites, healing Psych: Calm, cooperative Results CBC & Chem 7: 08/13/23 05:51 08/15/23 07:10 Labs: Abnormal Lab Results - Last 24 Hours (Table) 08/14/23 08/14/23 08/14/23 Range/Units 12:26 17:32 19:55 BUN (9.0-27.0) mg/dL Creatinine (0.6-1.5) mg/dL Est GFR (CKD-EPI) (>=60) BUN/Creatinine Ratio (12.00-20.00) Ratio POC Glucose (mg/dL) 140 H 162 H 151 H (70-110) mg/dL Total Bilirubin (0.3-1.2) mg/dL AST (13-35) U/L Alkaline Phosphatase (41-126) U/L Total Protein (6.2-8.2) g/dL Albumin (3.8-4.9) g/dL Albumin/Globulin Ratio (1.60-3.17) Ratio 08/15/23 08/15/23 08/15/23 Range/Units 07:02 07:10 11:59 BUN 49.3 H (9.0-27.0) mg/dL Creatinine 1.9 H (0.6-1.5) mg/dL Est GFR (CKD-EPI) 26 L (>=60) BUN/Creatinine Ratio 25.95 H (12.00-20.00) Ratio POC Glucose (mg/dL) 112 H 220 H (70-110) mg/dL Total Bilirubin 1.7 H (0.3-1.2) mg/dL AST 79 H (13-35) U/L Alkaline Phosphatase 205 H (41-126) U/L Total Protein 5.3 L (6.2-8.2) g/dL Albumin 2.2 L (3.8-4.9) g/dL Albumin/Globulin Ratio 0.71 L (1.60-3.17) Ratio Assessment and Plan Assessment: # Debility secondary to cholecystitis s/p laparoscopic cholecystectomy -Cefdinir -PT/OT # liver Cirrhosis # Acute GIB bleed # AMS, likely medication related -pain medications were reduced # Recent perforated gastric ulcer post surgical repair # Heart Failure # Lower extremity edema -diuresis per JUL # Pain Management - Tylenol 650 mg prn, # DVT Proph- none per MAR, compression stockings # Diet -Regular # Comorbidities: OA, HTN, Afib, asthma, lumbar degenerative disc disease Dispo: Patient and her would like to pursue IPR for rehab, agree that patient was independent prior and has good family support along witht he ability to tolerate 3 hrs of therapy a day. Patient and aware that she will need insurance authorizaion. Patient seen and examined by Vonda Wang PA-C in collaboration with Dr Steele. Thank you for consulting our services.
[2023-08-15] MEDS ORDERED: Magnesium Replacement Protocol 1 EACH MISC MISCELLANE PRN (13:21)
--- NOTE | 2023-08-15 15:17 | P.PN ---
Subjective Progress Note Date: 08/15/23 Principal diagnosis: Reason for follow-up is left thigh and leg cellulitis Patient is a 78-year-old female with a past medical history significant for hypertension heart failure asthma heart failure lymphoma, presenting to the hospital with increasing swelling and redness to left lower extremity has been diagnosed with the cellulitis. On today's evaluation that is 08/15/2023, Patient is afebrile patient is currently on room air and denies having any shortness of breath, the patient denies any chest pain or cough, the patient denies any nausea vomiting did not have any abdominal pain and no diarrhea, seems to be doing better mentally compared to yesterday. Patient white count is 12.63, creatinine is 1.9 blood culture negative Objective - Vital Signs Vital signs: Vital Signs Temp 98.5 F 08/15/23 07:04 Pulse 84 08/15/23 07:04 Resp 16 08/15/23 07:04 BP 145/60 08/15/23 07:04 Pulse Ox 99 08/15/23 07:04 FiO2 Intake & Output 08/14/23 08/15/23 08/15/23 18:59 06:59 18:59 Intake Total 360 600 Output Total 750 Balance -390 600 Weight 77.3 kg Intake: Oral 360 600 Output: Urine 750 Other: Voiding Method Diaper Diaper External Catheter Incontinent # Voids 1 3 1 # Bowel Movements 1 4 1 - Exam GENERAL DESCRIPTION: An elderly female lying in bed in no distress RESPIRATORY SYSTEM: Unlabored breathing , decreased breath sounds at bases HEART: S1 S2 regular rate and rhythm , ABDOMEN: Soft , no tenderness EXTREMITIES: Patient left thigh and leg swelling and redness slightly decreased - Labs CBC & Chem 7: 08/15/23 07:10 08/15/23 07:10 Labs: Abnormal Lab Results - Last 24 Hours (Table) 08/14/23 08/14/23 08/15/23 Range/Units 17:32 19:55 07:02 WBC (4.50-10.00) X 10*3/uL RBC (4.10-5.20) X 10*6/uL Hgb (12.0-15.0) g/dL Hct (37.2-46.3) % MCV (80.0-97.0) FL MCH (27.0-32.0) pg RDW (11.5-14.5) % Plt Count (140-440) X 10*3/uL Immature Gran # (0.00-0.04) X 10*3/uL Monocytes # (0.20-1.00) X 10*3/uL Eosinophils # (0.04-0.35) X 10*3/uL BUN (9.0-27.0) mg/dL Creatinine (0.6-1.5) mg/dL Est GFR (CKD-EPI) (>=60) BUN/Creatinine Ratio (12.00-20.00) Ratio POC Glucose (mg/dL) 162 H 151 H 112 H (70-110) mg/dL Total Bilirubin (0.3-1.2) mg/dL AST (13-35) U/L Alkaline Phosphatase (41-126) U/L Total Protein (6.2-8.2) g/dL Albumin (3.8-4.9) g/dL Albumin/Globulin Ratio (1.60-3.17) Ratio 08/15/23 08/15/23 08/15/23 Range/Units 07:10 07:10 11:59 WBC 12.63 H (4.50-10.00) X 10*3/uL RBC 2.21 L (4.10-5.20) X 10*6/uL Hgb 7.7 L (12.0-15.0) g/dL Hct 23.2 L (37.2-46.3) % MCV 105.0 H (80.0-97.0) FL MCH 34.8 H (27.0-32.0) pg RDW 16.6 H (11.5-14.5) % Plt Count 133 L (140-440) X 10*3/uL Immature Gran # 0.24 H (0.00-0.04) X 10*3/uL Monocytes # 2.57 H (0.20-1.00) X 10*3/uL Eosinophils # 1.42 H (0.04-0.35) X 10*3/uL BUN 49.3 H (9.0-27.0) mg/dL Creatinine 1.9 H (0.6-1.5) mg/dL Est GFR (CKD-EPI) 26 L (>=60) BUN/Creatinine Ratio 25.95 H (12.00-20.00) Ratio POC Glucose (mg/dL) 220 H (70-110) mg/dL Total Bilirubin 1.7 H (0.3-1.2) mg/dL AST 79 H (13-35) U/L Alkaline Phosphatase 205 H (41-126) U/L Total Protein 5.3 L (6.2-8.2) g/dL Albumin 2.2 L (3.8-4.9) g/dL Albumin/Globulin Ratio 0.71 L (1.60-3.17) Ratio Assessment and Plan (1) Left leg cellulitis Current Visit: Yes Status: Acute Code(s): L03.116 - CELLULITIS OF LEFT LOWER LIMB SNOMED Code(s): 18717838556742744 (2) Allergy to penicillin Current Visit: No Status: Acute Code(s): Z88.0 - ALLERGY STATUS TO PENICILLIN SNOMED Code(s): 20917286 (3) Elevated WBC count Current Visit: Yes Status: Acute Code(s): D72.829 - ELEVATED WHITE BLOOD CELL COUNT, UNSPECIFIED SNOMED Code(s): 230386835 Plan: 1-Patient presented to hospital with multiple symptoms including increasing swelling to the left lower extremity in this patient who did have some redness and hard area to the left medial thigh however CT did not show any evidence of abscess 2-patient also have elevated liver enzymes however CT as well as ultrasound did not show any evidence of gallbladder stone or dilated CBD, patient is status postcholecystectomy completed on 08/06/2023 3--patient is afebrile patient white count slightly elevated today and will monitor closely 4-patient to continue with the oral Omnicef for another 5 days to finish course of therapy Dictation was produced using [employer] dictation software. please excuse any grammatical, word or spelling errors. Time with Patient: Less than 30
--- NOTE | 2023-08-15 15:24 | P.PN ---
Subjective Progress Note Date: 08/15/23 This is a pleasant 78-year-old female who was recently admitted with right upper quadrant abdominal pain and recently has undergone cholecystectomy. Patient had some noted blood clots in the brief although unable to determine if it was vaginally or per rectum. Hemoglobin is stable and general surgery is following and there is some noted scant blood on the brief today and after exam there is noted to be 2 internal/external hemorrhoids noted that have some fresh blood on them. Patient also having an acute altered mentation which is likely secondary to narcotics as patient did receive some Dilaudid a day or so ago and has been receiving [place]. Patient was given IV Narcan with improvements in mentation and neurology has been consulted and appreciate input and recommendations. Recommend avoiding all narcotics and will adjust medications. Per surgery continue to hold Eliquis. 08/14/2023 Patient is seen and evaluated in follow-up today mentation is improving and patient continues to have some episodes of confusion although much improved from yesterday. All narcotics have been on hold. Multiple medical consultations following including infectious disease, general surgery, neurology and underwent EEG which is pending at this time. CT of the brain was negative. Patient continues on antibiotics in the form of cefdinir and will continue, blood cultures have been negative. Ammonia was slightly elevated at 30 and will continue lactulose and follow-up with repeat labs. Patient has been advanced to regular diet and tolerating with no reports of nausea or vomiting noted. Recommend to continue with Ensure supplements and would recommend physical therapy daily as patient is significantly weak and has had multiple hospitalizations over the last few months. is extremely concerned of patient going to [facility] and discussed at length about possible inpatient rehab. Will place a consult to Dr. Delcid for inpatient rehab at [facility]. Encouraged increase activity as tolerated and strongly recommend physical therapy daily. Patient with history of heart failure is maintained on torsemide and kidney functions mildly elevated at 1.9 will cut the dose in half and will continue and follow-up on repeat labs. 08/15/2023 Patient is seen and evaluated in follow-up today currently sitting up in the chair mentation is much improved and back to baseline. Patient is receiving only Tylenol and narcotics have been discontinued. Patient reports some abdominal pain although reports Tylenol is helping. Patient's ammonia level was mildly elevated at 30 and given a few doses of lactulose and repeat was less than 9. Will discontinue lactulose. Patient continues on cefdinir with infectious disease following. Hemoglobin is 7.7 today and white count is mildly elevated at 12.63 although patient remains afebrile. Platelets are 133. Patient LFTs are trending down as well. Patient was evaluated by inpatient rehab providers at [facility] and will be submitting for insurance authorization. Patient and are agreeable to this if approved by insurance. does not want patient to go to [facility] for rehab. He reports having bad experiences with family members and does not want this happening to his . Patient is currently afebrile with no reports of chest pain or shortness of breath. Patient is tolerating diet and having bowel movements. Wi ll follow-up with repeat labs and transfuse on hemoglobin 7 or less. Review of systems: Constitutional: reports of fatigue, no fever, or chills Cardiovascular: No reports of chest pain or palpitations Respiratory: No reports of shortness of breath or cough GI: No reports of nausea, no reports of vomiting, no reports of diarrhea, reports less abdominal pain and tolerating diet : No reports of dysuria or retention, reports is incontinent Neurovascular: reports of generalized weakness, reports back pain All medications have been reviewed Active Medications Acetaminophen (Acetaminophen Tab 325 Mg Tab) 650 mg PO Q6HR PRN PRN Reason: Mild Pain or Fever > 100.5 Last Admin: 08/15/23 11:04 Dose: 650 mg Albuterol/Ipratropium (Ipratropium-Albuterol 3 Ml Neb) 3 ml INHALATION RT-QID PRN PRN Reason: Shortness Of Breath Cefdinir (Cefdinir 300 Mg Cap) 300 mg PO HS [facility]; Protocol Last Admin: 08/14/23 21:30 Dose: 300 mg Cholecalciferol (Cholecalciferol 125 Mcg (5000 Iu) Tablet) 125 mcg PO DAILY [facility] Last Admin: 08/15/23 09:47 Dose: 125 mcg Cyanocobalamin (Cyanocobalamin 500 Mcg Tab) 1,000 mcg PO DAILY [facility] Last Admin: 08/15/23 09:47 Dose: 1,000 mcg Dapagliflozin (Dapagliflozin Propanediol 10 Mg Tablet) 10 mg PO DAILY [facility] Last Admin: 08/15/23 09:56 Dose: 10 mg Famotidine (Famotidine 20 Mg/2 Ml Vial) 20 mg IV DAILY [facility] Ferrous Sulfate (Ferrous Sulfate 325 Mg Tab) 325 mg PO DAILY [facility] Last Admin: 08/15/23 09:47 Dose: 325 mg Folic Acid (Folic Acid 1 Mg Tab) 1 mg PO DAILY [facility] Last Admin: 08/15/23 09:47 Dose: 1 mg Magnesium Oxide (Magnesium Oxide 400 Mg Tab) 400 mg PO HS [facility] Last Admin: 08/14/23 21:29 Dose: 400 mg Metoprolol Tartrate (Metoprolol Tartrate 12.5 Mg Tab) 12.5 mg PO BID [facility] Last Admin: 08/15/23 09:47 Dose: 12.5 mg Miscellaneous Information (Magnesium Replacement Protocol 1 Each Misc) 1 each MISCELLANE DAILY PRN; Protocol PRN Reason: Per Protocol Multivitamins (Multivitamins, Thera 1 Each Tab) 1 each PO DAILY@1200 [facility] Last Admin: 08/15/23 09:47 Dose: 1 each Naloxone HCl (Naloxone 0.4 Mg/Ml 1 Ml Vial) 0.2 mg IV Q2M PRN PRN Reason: Opioid Reversal Last Admin: 08/13/23 10:59 Dose: 0.2 mg Naloxone HCl (Naloxone 0.4 Mg/Ml 1 Ml Vial) 0.2 mg IV Q2M PRN PRN Reason: Opioid Reversal Ondansetron HCl (Ondansetron 4 Mg/2 Ml Vial) 4 mg IVP Q6HR PRN PRN Reason: Nausea And Vomiting Tamsulosin HCl (Tamsulosin 0.4 Mg Cap.Er.24h) 0.4 mg PO PC-BRKFST [facility] Last Admin: 08/15/23 09:47 Dose: 0.4 mg Thiamine HCl (Thiamine 100 Mg Tab) 100 mg PO BID-W/MEALS [facility] Last Admin: 08/15/23 09:47 Dose: 100 mg Torsemide (Torsemide 20 Mg Tab) 10 mg PO DAILY [facility] Witch Rashmi (Witch Rashmi 1 Each Med..Pad) 1 each TOPICAL AC-BID [facility] Last Admin: 08/15/23 09:49 Dose: 1 each PHYSICAL EXAMINATION: GENERAL: The patient is alert and oriented x3 much more awake today, Well developed, well nourished. Elderly appearing HEENT: Pupils are round and equally reacting to light. EOMI. no scleral icterus. No conjunctival pallor. Normocephalic, atraumatic. No pharyngeal erythema. No thyromegaly. CARDIOVASCULAR: S1 and S2 muffled PULMONARY: diminished breath sounds bilaterally with no wheezing or rhonchi noted. ABDOMEN: soft. tender on exam. obese. non-distended, normoactive bowel sounds. No palpable organomegaly. Left side inguinal hernia noted that is reproducible, multiple surgical sites with dried blood and no drainage or redness noted surrounding MUSCULOSKELETAL: No joint swelling or deformity. EXTREMITIES: No cyanosis, clubbing, or pedal edema. NEUROLOGICAL: Gross neurological examination did not reveal any focal deficits. Diffuse weakness SKIN: No rashes. Assessment: Acute cholecystitis, status post laparoscopic cholecystectomy Left leg cellulitis, present on admission, improved Altered mental status with acute confusion, likely toxic encephalopathy secondary to narcotic use, mentation improved after Narcan use Blood noted on brief, likely secondary to internal and external hemorrhoids, ruled out GI bleed History of paroxysmal atrial fibrillation Leukocytosis likely secondary to cellulitis, improved Generalized weakness with gait dysfunction Asthma history, not in exacerbation Hypertension history History of degenerative joint disease GI prophylaxis DVT prophylaxis Full code Plan: Recommend to continue with current medications and management with multiple medical consultations following. Patient has been seen and evaluated by general surgery status postcholecystectomy and is tolerating diet and having bowel movements. Patient was noted to have some blood in her brief and was on Eliquis which is on hold currently with concerns of GI bleeding. Appears on exam there are 2 large external and internal hemorrhoids noted at the top of the rectum that have minimal oozing of blood noted. Will add Anusol suppositories Ammonia was mildly elevated at 30 and given a few doses of lactulose and is less than 9 today. Will discontinue lactulose Encouraged to increase activity as tolerated and recommend PT/OT therapy daily. Patient would like to return to rehab for continued physical therapy although is reluctant and would like to take the patient home. Had a lengthy discussion regarding multiple hospitalizations and progressive weakness over the last few months and have placed a consult to inpatient rehab at [facility] for evaluation. Patient and Teddy are agreeable to this. [facility] will submit for insurance authorization which is currently pending Hold all narcotics and will continue with Tylenol and other measures for pain as patient's mentation had been waxing and waning and patient becoming confused. Neurology following. CT brain was negative for any acute findings. EEG was w ithin normal limits If patient is agitated or restless at night will add low-dose as needed Seroquel Patient is currently continued on cefdinir with infectious disease following and recommend to continue a 5-day course Will follow-up with repeat labs and continue to monitor closely. Transfuse if 7 or less Due to multiple complex medical issues, prognosis is guarded Possible discharge planning in the next 24 to 48 hours The impression and plan of care has been dictated by Kailey Bates, nurse practitioner as directed. Dr. Martin MD I have performed a history and examination and MDM of this patient, discussed the same with the dictator, and agree with the dictator's assessment and plan as written ,documented as a scribe. Based on total visit time, I have performed more than 50% of the visit. Any additional findings or plans will be noted. Objective - Vital Signs Vital signs: Vital Signs Temp 98.5 F 08/15/23 07:04 Pulse 84 08/15/23 07:04 Resp 16 08/15/23 07:04 BP 145/60 08/15/23 07:04 Pulse Ox 99 08/15/23 07:04 FiO2 Intake & Output 08/14/23 08/15/23 08/15/23 18:59 06:59 18:59 Intake Total 360 600 Output Total 750 Balance -390 600 Weight 77.3 kg Intake: Oral 360 600 Output: Urine 750 Other: Voiding Method Diaper Diaper External Catheter Incontinent # Voids 1 3 # Bowel Movements 1 4 - Labs CBC & Chem 7: 08/15/23 07:10 08/15/23 07:10 Labs: Abnormal Lab Results - Last 24 Hours (Table) 08/14/23 08/14/23 08/14/23 Range/Units 12:26 17:32 19:55 POC Glucose (mg/dL) 140 H 162 H 151 H (70-110) mg/dL 08/15/23 Range/Units 07:02 POC Glucose (mg/dL) 112 H (70-110) mg/dL
[2023-08-15] MEDS: MAGNESIUM SULFATE-D5W PMX 1 GM in DEXTROSE/WATER 1 100ML.BAG IVPB ONE (15:45)
[2023-08-15 17:19] LABS: Glucose,Whole Blood 123 mg/dL (70-110)
[2023-08-15 20:07] LABS: Glucose,Whole Blood 276 mg/dL (70-110)
[2023-08-15] MEDS: HYDROCORTISONE SUPPOSITORY 25 MG SUPP RECTAL SCH (21:14)
[2023-08-16] MEDS ORDERED: ZINC OXIDE PASTE (Z-GUARD) 1 APPLIC TOPICAL PRN (00:01)
[2023-08-16 07:15] LABS: Glucose,Whole Blood 95 mg/dL (70-110)
[2023-08-16] MEDS: FAMOTIDINE 20 MG/2 ML VIAL IV SCH (10:22)
[2023-08-16 10:28] LABS: Basophils # (A) 0.1 k/uL (0-0.2); Basophils % (A) 1 %; Eosinophils # (A) 1.1 k/uL (0-0.7); Eosinophils % (A) 11 %; HCT 25.1 % (34.0-46.0); HGB 8.1 gm/dL (11.4-16.0); Hypochromasia Slight; Lymphocytes % (A) 19 %; MCH 35.5 pg (25.0-35.0); MCHC 32.4 g/dL (31.0-37.0); MCV 109.8 fL (80.0-100.0); Macrocytosis Marked; Mean Platelet Volume 8.6; Monocytes # (A) 0.8 k/uL (0-1.0); Monocytes % (A) 8 %; Neutrophils % (A) 58 %; Platelet Count 122 k/uL (150-450); RBC 2.29 m/uL (3.80-5.40); RDW 15.7 % (11.5-15.5); WBC 10.4 k/uL (3.8-10.6)
[2023-08-16 10:44] LABS: African American GFR (CKD) 33 (>60 ml/min/1.73 sqM); Anion Gap 3 mmol/L; Blood Urea Nitrogen 51 mg/dL (7-17); Calcium 8.4 mg/dL (8.4-10.2); Carbon Dioxide 24 mmol/L (22-30); Chloride 105 mmol/L (98-107); Glucose 118 mg/dL (74-99); Non-African American GFR(CKD) 28 (>60 ml/min/1.73 sqM); Potassium 4.1 mmol/L (3.5-5.1); Sodium 132 mmol/L (137-145)
[2023-08-16 11:07] LABS: Glucose,Whole Blood 275 mg/dL (70-110)
[2023-08-16 13:40] LABS: Polychromasia Present
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
--- NOTE | 2023-08-16 14:43 | P.PN ---
Subjective Progress Note Date: 08/16/23 on follow-up with the patient and she is compared with her feels her confusion mentation is improving compared to past couple days ago. Patient feels she is doing better overall. Objective - Vital Signs Vital signs: Vital Signs Temp 97.6 F 08/16/23 12:18 Pulse 88 08/16/23 12:18 Resp 17 08/16/23 12:18 BP 122/63 08/16/23 12:18 Pulse Ox 98 08/16/23 12:18 FiO2 Intake & Output 08/15/23 08/16/23 08/16/23 18:59 06:59 18:59 Intake Total 240 900 Output Total 501 3 Balance -261 900 -3 Weight 76 kg Intake: Oral 240 900 Output: Urine 500 1 Stool 1 2 Other: Voiding Method Diaper Diaper Diaper Incontinent # Voids 1 3 1 # Bowel Movements 1 3 1 - Exam General: Lying in bed and is not in acute distress. Neuro: patient is awake alert oriented to self place and the month. After second or third try she correctly got the year correct. She is able to name her crackly. Subtle slow to respond to questions.She is following simple commands. no facial weakness. No dysarthria. Motor is lifting a extremities above gravity equally. Some of the workup during this hospital visit consisted of: Her white blood cell is trending down was 25,000 currently is 10.32 thousand Sodium is 133. Sugar is in the 120s. ALT is 39 AST is 96 Vitamin B12: >3600 Serum folate is 40 TSH: 2.430 Ammonia is 30and most recent ammonia level is 12. CT of the head is reported as limited exam secondary due to motion artifact and the patient's arms. No acute intracranial process. I personally reviewed the CT and I agree there is limitation because of motion artifact but no visible acute or subacute ischemia from limitation of exam. routine EEG is normal. - Labs CBC & Chem 7: 08/16/23 10:06 08/16/23 10:06 Labs: Abnormal Lab Results - Last 24 Hours (Table) 08/15/23 08/15/23 08/16/23 Range/Units 17:18 20:06 07:42 RBC (3.80-5.40) m/uL Hgb (11.4-16.0) gm/dL Hct (34.0-46.0) % MCV (80.0-100.0) fL MCH (25.0-35.0) pg RDW (11.5-15.5) % Plt Count (150-450) k/uL Eosinophils # (0-0.7) k/uL Macrocytosis Sodium (137-145) mmol/L BUN (7-17) mg/dL Creatinine (0.52-1.04) mg/dL Glucose (74-99) mg/dL POC Glucose (mg/dL) 123 H 276 H (70-110) mg/dL Magnesium 2.5 H (1.5-2.4) mg/dL 08/16/23 08/16/23 08/16/23 Range/Units 10:06 10:06 11:06 RBC 2.29 L (3.80-5.40) m/uL Hgb 8.1 L (11.4-16.0) gm/dL Hct 25.1 L (34.0-46.0) % MCV 109.8 H (80.0-100.0) fL MCH 35.5 H (25.0-35.0) pg RDW 15.7 H (11.5-15.5) % Plt Count 122 L (150-450) k/uL Eosinophils # 1.1 H (0-0.7) k/uL Macrocytosis Marked A Sodium 132 L (137-145) mmol/L BUN 51 H (7-17) mg/dL Creatinine 1.69 H (0.52-1.04) mg/dL Glucose 118 H (74-99) mg/dL POC Glucose (mg/dL) 275 H (70-110) mg/dL Magnesium (1.5-2.4) mg/dL Assessment and Plan Assessment: This is an 78 y/o woman with right upper abdominal pain flank pain with elevated bilirubin chest pneumonitis and was felt that she passed gallstone and had laparoscopic cholecystectomy. It seems that the patient was felt she had the cellulitis of the extremity lower. She is getting morphine, Dilaudid [place]. She's having fluctuation of mentation Delirium due to multifactorial: Abdominal issues status post cholecystectomy, transaminitis, cellulitis, medication induced (Opiates) and hospital induced--improving Right abdominal pain flank pain and was felt she had gallbladder sludge status post laparoscopic old secondary History of perforated gall ulcer status post postsurgical repair Cellulitis Plan: routine EEG is normal. We'll defer the rest of the medical management to the primary and other specialist. Infection disease and general surgery team is on board. The plan was discussed with the patient, her was at bedside. There is no further neurological workup. We'll sign off. Please reconsult if needed. Time with Patient: Less than 30
--- NOTE | 2023-08-16 16:10 | P.PN ---
Subjective Progress Note Date: 08/16/23 Principal diagnosis: Reason for follow-up is left thigh and leg cellulitis Patient is a 78-year-old female with a past medical history significant for hypertension heart failure asthma heart failure lymphoma, presenting to the hospital with increasing swelling and redness to left lower extremity has been diagnosed with the cellulitis. On today's evaluation that is 08/16/2023, patient has been afebrile, patient is breathing comfortably and is currently on room air, patient denies having any significant cough no chest pain shortness of breath, patient denies nausea vomiting or diarrhea and no abdominal pain. Patient white count is 10.4, creatinine is 1.6 Objective - Vital Signs Vital signs: Vital Signs Temp 97.6 F 08/16/23 12:18 Pulse 88 08/16/23 12:18 Resp 17 08/16/23 12:18 BP 122/63 08/16/23 12:18 Pulse Ox 98 08/16/23 12:18 FiO2 Intake & Output 08/15/23 08/16/23 08/16/23 18:59 06:59 18:59 Intake Total 240 900 Output Total 501 2 Balance -261 900 -2 Weight 76 kg Intake: Oral 240 900 Output: Urine 500 1 Stool 1 1 Other: Voiding Method Diaper Diaper Incontinent # Voids 1 3 1 # Bowel Movements 1 3 1 - Exam GENERAL DESCRIPTION: An elderly female lying in bed in no distress RESPIRATORY SYSTEM: Unlabored breathing , decreased breath sounds at bases HEART: S1 S2 regular rate and rhythm , ABDOMEN: Soft , no tenderness EXTREMITIES: Patient left thigh and leg swelling and redness slightly decreased - Labs CBC & Chem 7: 08/16/23 10:06 08/16/23 10:06 Labs: Abnormal Lab Results - Last 24 Hours (Table) 08/15/23 08/15/23 08/16/23 Range/Units 17:18 20:06 07:42 RBC (3.80-5.40) m/uL Hgb (11.4-16.0) gm/dL Hct (34.0-46.0) % MCV (80.0-100.0) fL MCH (25.0-35.0) pg RDW (11.5-15.5) % Plt Count (150-450) k/uL Macrocytosis Sodium (137-145) mmol/L BUN (7-17) mg/dL Creatinine (0.52-1.04) mg/dL Glucose (74-99) mg/dL POC Glucose (mg/dL) 123 H 276 H (70-110) mg/dL Magnesium 2.5 H (1.5-2.4) mg/dL 08/16/23 08/16/23 08/16/23 Range/Units 10:06 10:06 11:06 RBC 2.29 L (3.80-5.40) m/uL Hgb 8.1 L (11.4-16.0) gm/dL Hct 25.1 L (34.0-46.0) % MCV 109.8 H (80.0-100.0) fL MCH 35.5 H (25.0-35.0) pg RDW 15.7 H (11.5-15.5) % Plt Count 122 L (150-450) k/uL Macrocytosis Marked A Sodium 132 L (137-145) mmol/L BUN 51 H (7-17) mg/dL Creatinine 1.69 H (0.52-1.04) mg/dL Glucose 118 H (74-99) mg/dL POC Glucose (mg/dL) 275 H (70-110) mg/dL Magnesium (1.5-2.4) mg/dL Assessment and Plan (1) Left leg cellulitis Current Visit: Yes Status: Acute Code(s): L03.116 - CELLULITIS OF LEFT LOWER LIMB SNOMED Code(s): 86664943878119736 (2) Allergy to penicillin Current Visit: No Status: Acute Code(s): Z88.0 - ALLERGY STATUS TO PENICILLIN SNOMED Code(s): 23835136 (3) Elevated WBC count Current Visit: Yes Status: Acute Code(s): D72.829 - ELEVATED WHITE BLOOD CELL COUNT, UNSPECIFIED SNOMED Code(s): 804296883 Plan: 1-Patient presented to hospital with multiple symptoms including increasing swelling to the left lower extremity in this patient who did have some redness and hard area to the left medial thigh however CT did not show any evidence of abscess 2-patient also have elevated liver enzymes however CT as well as ultrasound did not show any evidence of gallbladder stone or dilated CBD, patient is status postcholecystectomy completed on 08/06/2023 3--patient is afebrile patient white count normalized 4-patient currently on oral Omnicef and monitoring clinical course closely Dictation was produced using [employer] dictation software. please excuse any grammatical, word or spelling errors. Time with Patient: Less than 30
[2023-08-16 17:12] LABS: Glucose,Whole Blood 122 mg/dL (70-110)
[2023-08-16 20:43] LABS: Glucose,Whole Blood 159 mg/dL (70-110)
[2023-08-17 06:59] LABS: Glucose,Whole Blood 101 mg/dL (70-110)
[2023-08-17 09:49] LABS: BUN/Creat Ratio 29.06 Ratio (12.00-20.00); Blood Urea Nitrogen 46.5 mg/dL (9.0-27.0); Calcium 8.8 mg/dL (8.7-10.3); Carbon Dioxide 23.6 mmol/L (21.6-31.8); Chloride 103 mmol/L (96-109); Glucose 99 mg/dL (70-110); Magnesium 2.5 mg/dL (1.5-2.4); Potassium 4.6 mmol/L (3.5-5.5); Sodium 132 mmol/L (135-145)
[2023-08-17 09:57] LABS: Basophils # (M) 0 X 10*3/uL (0.00-0.10); HCT 23.3 % (37.2-46.3); HGB 7.6 g/dL (12.0-15.0); MCH 34.5 pg (27.0-32.0); MCHC 32.6 g/dL (32.0-37.0); MCV 105.9 FL (80.0-97.0); Mean Platelet Volume 9.6 FL (9.5-12.2); NRBC Per 100 WBC 0 X 10*3/uL (0.00-0.01); Platelet Count 105 X 10*3/uL (140-440); WBC 12.02 X 10*3/uL (4.50-10.00)
[2023-08-17 10:45] LABS: Eosinophils # (M) 3.49 X 10*3/uL (0.04-0.35); Lymphocytes # (M) 0.84 X 10*3/uL (0.90-5.00); Macrocytosis (M) 3+; Metamyelocytes % 1 % (0-0); Monocytes # (M) 0.84 X 10*3/uL (0.20-1.00); Neutrophils # (M) 6.73 X 10*3/uL (1.80-7.70); Neutrophils % (M) 56 %; Nucleated Red Blood Cells 1 /100 WBCS
[2023-08-17 11:47] LABS: Glucose,Whole Blood 149 mg/dL (70-110)
[2023-08-17 15:56] LABS: Appearance,Urine Cloudy (Clear); Bacteria,Urine Moderate /hpf; Bilirubin,Urine Negative (Negative); Blood,Urine Moderate (Negative); Budding Yeast,Urine Many /hpf; Color,Urine Yellow; Glucose,Urine (UA) Trace (Negative); Ketones,Urine Negative (Negative); Leukocyte Esterase,Urine Large (Negative); Mucus,Urine Rare /hpf; Nitrite,Urine Negative (Negative); Protein,Urine 1+ (Negative); RBC,Urine 97 /hpf (0-5); Specific Gravity,Urine 1.013 (1.001-1.035); Squamous Epithelial Cell,Urine 2 /hpf (0-4); Urobilinogen,Urine <2.0 mg/dL (<2.0); WBC,Urine >182 /hpf (0-5)
--- NOTE | 2023-08-17 17:02 | P.PN ---
Subjective Progress Note Date: 08/17/23 Principal diagnosis: Reason for follow-up is left thigh and leg cellulitis Patient is a 78-year-old female with a past medical history significant for hypertension heart failure asthma heart failure lymphoma, presenting to the hospital with increasing swelling and redness to left lower extremity has been diagnosed with the cellulitis. On today's evaluation that is 08/17/2023,the patient denies any fever or any chills, patient is breathing comfortably on room air, the patient denies chest pain shortness of breath and no significant cough, patient denies abdominal pain, no nausea vomiting or diarrhea. Patient white count 4.02, creatinine is 1.6 Objective - Vital Signs Vital signs: Vital Signs Temp 98.4 F 08/17/23 11:25 Pulse 97 08/17/23 11:25 Resp 18 08/17/23 11:25 BP 121/55 08/17/23 11:25 Pulse Ox 98 08/17/23 11:25 FiO2 Intake & Output 08/16/23 08/17/23 08/17/23 18:59 06:59 18:59 Output Total 3 1 Balance -3 -1 Weight 81 kg Output: Urine 1 Stool 2 1 Other: Voiding Method Diaper Diaper Diaper # Voids 1 2 1 # Bowel Movements 1 1 1 - Exam GENERAL DESCRIPTION: An elderly female lying in bed in no distress RESPIRATORY SYSTEM: Unlabored breathing , decreased breath sounds at bases HEART: S1 S2 regular rate and rhythm , ABDOMEN: Soft , no tenderness EXTREMITIES: Patient left thigh and leg swelling and redness slightly decreased - Labs CBC & Chem 7: 08/17/23 06:35 08/17/23 06:31 Labs: Abnormal Lab Results - Last 24 Hours (Table) 08/16/23 08/16/23 08/17/23 Range/Units 17:11 20:40 06:31 WBC (4.50-10.00) X 10*3/uL RBC (4.10-5.20) X 10*6/uL Hgb (12.0-15.0) g/dL Hct (37.2-46.3) % MCV (80.0-97.0) FL MCH (27.0-32.0) pg RDW (11.5-14.5) % Plt Count (140-440) X 10*3/uL Lymphocytes # (Manual) (0.90-5.00) X 10*3/uL Eosinophils # (Manual) (0.04-0.35) X 10*3/uL Macrocytosis (manual) Sodium 132 L (135-145) mmol/L BUN 46.5 H (9.0-27.0) mg/dL Creatinine 1.6 H (0.6-1.5) mg/dL Est GFR (CKD-EPI) 32 L (>=60) BUN/Creatinine Ratio 29.06 H (12.00-20.00) Ratio POC Glucose (mg/dL) 122 H 159 H (70-110) mg/dL Magnesium 2.5 H (1.5-2.4) mg/dL Urine Appearance (Clear) Urine Protein (Negative) Urine Glucose (UA) (Negative) Urine Blood (Negative) Ur Leukocyte Esterase (Negative) Urine RBC (0-5) /hpf Urine WBC (0-5) /hpf Urine WBC Clumps (None) /hpf Urine Bacteria (None) /hpf Urine Mucus (None) /hpf Urine Yeast (Budding) (None) /hpf 08/17/23 08/17/23 08/17/23 Range/Units 06:35 11:46 15:31 WBC 12.02 H (4.50-10.00) X 10*3/uL RBC 2.20 L (4.10-5.20) X 10*6/uL Hgb 7.6 L (12.0-15.0) g/dL Hct 23.3 L (37.2-46.3) % MCV 105.9 H (80.0-97.0) FL MCH 34.5 H (27.0-32.0) pg RDW 16.0 H (11.5-14.5) % Plt Count 105 L (140-440) X 10*3/uL Lymphocytes # (Manual) 0.84 L (0.90-5.00) X 10*3/uL Eosinophils # (Manual) 3.49 H (0.04-0.35) X 10*3/uL Macrocytosis (manual) 3+ A Sodium (135-145) mmol/L BUN (9.0-27.0) mg/dL Creatinine (0.6-1.5) mg/dL Est GFR (CKD-EPI) (>=60) BUN/Creatinine Ratio (12.00-20.00) Ratio POC Glucose (mg/dL) 149 H (70-110) mg/dL Magnesium (1.5-2.4) mg/dL Urine Appearance Cloudy H (Clear) Urine Protein 1+ H (Negative) Urine Glucose (UA) Trace H (Negative) Urine Blood Moderate H (Negative) Ur Leukocyte Esterase Large H (Negative) Urine RBC 97 H (0-5) /hpf Urine WBC >182 H (0-5) /hpf Urine WBC Clumps Few H (None) /hpf Urine Bacteria Moderate H (None) /hpf Urine Mucus Rare H (None) /hpf Urine Yeast (Budding) Many H (None) /hpf Assessment and Plan (1) Left leg cellulitis Current Visit: Yes Status: Acute Code(s): L03.116 - CELLULITIS OF LEFT LOWER LIMB SNOMED Code(s): 64463613427232095 (2) Allergy to penicillin Current Visit: No Status: Acute Code(s): Z88.0 - ALLERGY STATUS TO PENICILLIN SNOMED Code(s): 80159649 (3) Elevated WBC count Current Visit: Yes Status: Acute Code(s): D72.829 - ELEVATED WHITE BLOOD CELL COUNT, UNSPECIFIED SNOMED Code(s): 617889352 Plan: 1-Patient presented to hospital with multiple symptoms including increasing swe lling to the left lower extremity in this patient who did have some redness and hard area to the left medial thigh however CT did not show any evidence of abscess 2-patient also have elevated liver enzymes however CT as well as ultrasound did not show any evidence of gallbladder stone or dilated CBD, patient is status postcholecystectomy completed on 08/06/2023 3--patient is afebrile patient white count normalized as of yesterday mild elevated today will monitor closely 4-patient to continue with oral Omnicef to finish a course of therapy Dictation was produced using [employer] dictation software. please excuse any grammatical, word or spelling errors. Time with Patient: Less than 30
[2023-08-17 17:09] LABS: Glucose,Whole Blood 131 mg/dL (70-110)
[2023-08-17 20:08] LABS: Glucose,Whole Blood 137 mg/dL (70-110)
[2023-08-17 21:00] VITALS: RESP 16
--- NOTE | 2023-08-17 22:03 | PN ---
PROGRESS NOTE DATE OF SERVICE: 08/17/2023 SUBJECTIVE: This is an 78-year-old woman, who was admitted with multiple complex medical issues after cholecystitis, scheduled to go for rehab on Saturday. No chest pain. No palpitation. OBJECTIVE: VITAL SIGNS: Pulse is 65, blood pressure 130/66, respirations 18. CHEST: Clear to auscultation. CARDIOVASCULAR: S1, S2. ABDOMEN: Soft, status post surgery. LABORATORY DATA: WBC 12.2, hemoglobin 7.6. Rest of the labs are noted. ASSESSMENT: 1. Acute cholecystitis, status post laparoscopic cholecystectomy. 2. Left leg cellulitis. 3. Change in mental status, metabolic encephalopathy, multifactorial. 4. Multiple complex medical issues. RECOMMENDATIONS AND DISCUSSION: I recommend to continue current medications, continue symptomatic treatment. Otherwise, white count is slightly elevated today. I would recommend repeat UA. Continue to monitor. The patient is on p.o. antibiotics. Further recommendations to follow. MMODL / IJN: [id number] /
[2023-08-18 07:28] LABS: Glucose,Whole Blood 82 mg/dL (70-110)
[2023-08-18 09:36] LABS: Basophils # (A) 0.08 X 10*3/uL (0.00-0.10); Basophils % (A) 0.7 %; Eosinophils # (A) 3.09 X 10*3/uL (0.04-0.35); HCT 22.8 % (37.2-46.3); HGB 7.7 g/dL (12.0-15.0); Lymphocytes # (A) 2.26 X 10*3/uL (0.90-5.00); MCH 35.5 pg (27.0-32.0); MCHC 33.8 g/dL (32.0-37.0); MCV 105.1 FL (80.0-97.0); Mean Platelet Volume 9.6 FL (9.5-12.2); Monocytes # (A) 2.42 X 10*3/uL (0.20-1.00); Monocytes % (A) 20.4 %; NRBC Per 100 WBC 0 X 10*3/uL (0.00-0.01); Neutrophils # (A) 3.64 X 10*3/uL (1.80-7.70); Neutrophils % (A) 30.7 %; Platelet Count 111 X 10*3/uL (140-440); RBC 2.17 X 10*6/uL (4.10-5.20); RDW 15.9 % (11.5-14.5); WBC 11.87 X 10*3/uL (4.50-10.00)
[2023-08-18 09:42] LABS: ALT 38 U/L (8-44); AST 70 U/L (13-35); Albumin 2.2 g/dL (3.8-4.9); Albumin/Globulin Ratio 0.76 Ratio (1.60-3.17); Alkaline Phosphatase 221 U/L (41-126); Blood Urea Nitrogen 47.6 mg/dL (9.0-27.0); Calcium 8.4 mg/dL (8.7-10.3); Carbon Dioxide 23.5 mmol/L (21.6-31.8); Chloride 102 mmol/L (96-109); Globulin 2.9 g/dL (1.6-3.3); Glucose 87 mg/dL (70-110); Potassium 4.7 mmol/L (3.5-5.5); Sodium 132 mmol/L (135-145); Total Bilirubin 1.3 mg/dL (0.3-1.2); Total Protein 5.1 g/dL (6.2-8.2)
[2023-08-18 12:23] LABS: Glucose,Whole Blood 121 mg/dL (70-110)
--- NOTE | 2023-08-18 16:32 | P.PN ---
Subjective Progress Note Date: 08/18/23 Principal diagnosis: Reason for follow-up is left thigh and leg cellulitis Patient is a 78-year-old female with a past medical history significant for hypertension heart failure asthma heart failure lymphoma, presenting to the hospital with increasing swelling and redness to left lower extremity has been diagnosed with the cellulitis. On today's evaluation that is 08/18/2023,the patient remains to be afebrile, patient is on room air not requiring supplemental oxygen and denies any shortness of breath no chest pain or cough.Patient denies having any nausea or vomiting, no abdominal pain and no diarrhea has been reported has been complaining of pain to the lower extremity weakness. Patient white count 11.87, creatinine is 1.7 Objective - Vital Signs Vital signs: Vital Signs Temp 97.5 F L 08/18/23 11:48 Pulse 78 08/18/23 11:48 Resp 16 08/18/23 11:48 BP 92/48 08/18/23 11:48 Pulse Ox 100 08/18/23 11:48 FiO2 Intake & Output 08/17/23 08/18/23 08/18/23 18:59 06:59 18:59 Intake Total 360 Output Total 1 1 Balance 359 -1 Weight 76 kg Intake: Oral 360 Output: Stool 1 1 Other: Voiding Method Diaper Diaper Diaper Incontinent Incontinent # Voids 3 3 # Bowel Movements 1 2 1 - Exam GENERAL DESCRIPTION: An elderly female lying in bed in no distress RESPIRATORY SYSTEM: Unlabored breathing , decreased breath sounds at bases HEART: S1 S2 regular rate and rhythm , ABDOMEN: Soft , no tenderness EXTREMITIES: Patient left thigh and leg swelling and redness slightly decreased - Labs CBC & Chem 7: 08/18/23 06:03 08/18/23 06:03 Labs: Abnormal Lab Results - Last 24 Hours (Table) 08/17/23 08/17/23 08/18/23 Range/Units 17:07 20:06 06:03 WBC 11.87 H (4.50-10.00) X 10*3/uL RBC 2.17 L (4.10-5.20) X 10*6/uL Hgb 7.7 L (12.0-15.0) g/dL Hct 22.8 L (37.2-46.3) % MCV 105.1 H (80.0-97.0) FL MCH 35.5 H (27.0-32.0) pg RDW 15.9 H (11.5-14.5) % Plt Count 111 L (140-440) X 10*3/uL Immature Gran # 0.38 H (0.00-0.04) X 10*3/uL Monocytes # 2.42 H (0.20-1.00) X 10*3/uL Eosinophils # 3.09 H (0.04-0.35) X 10*3/uL Sodium (135-145) mmol/L BUN (9.0-27.0) mg/dL Creatinine (0.6-1.5) mg/dL Est GFR (CKD-EPI) (>=60) BUN/Creatinine Ratio (12.00-20.00) Ratio POC Glucose (mg/dL) 131 H 137 H (70-110) mg/dL Calcium (8.7-10.3) mg/dL Total Bilirubin (0.3-1.2) mg/dL AST (13-35) U/L Alkaline Phosphatase (41-126) U/L Total Protein (6.2-8.2) g/dL Albumin (3.8-4.9) g/dL Albumin/Globulin Ratio (1.60-3.17) Ratio 08/18/23 08/18/23 Range/Units 06:03 11:51 WBC (4.50-10.00) X 10*3/uL RBC (4.10-5.20) X 10*6/uL Hgb (12.0-15.0) g/dL Hct (37.2-46.3) % MCV (80.0-97.0) FL MCH (27.0-32.0) pg RDW (11.5-14.5) % Plt Count (140-440) X 10*3/uL Immature Gran # (0.00-0.04) X 10*3/uL Monocytes # (0.20-1.00) X 10*3/uL Eosinophils # (0.04-0.35) X 10*3/uL Sodium 132 L (135-145) mmol/L BUN 47.6 H (9.0-27.0) mg/dL Creatinine 1.7 H (0.6-1.5) mg/dL Est GFR (CKD-EPI) 30 L (>=60) BUN/Creatinine Ratio 28.00 H (12.00-20.00) Ratio POC Glucose (mg/dL) 121 H (70-110) mg/dL Calcium 8.4 L (8.7-10.3) mg/dL Total Bilirubin 1.3 H (0.3-1.2) mg/dL AST 70 H (13-35) U/L Alkaline Phosphatase 221 H (41-126) U/L Total Protein 5.1 L (6.2-8.2) g/dL Albumin 2.2 L (3.8-4.9) g/dL Albumin/Globulin Ratio 0.76 L (1.60-3.17) Ratio Assessment and Plan (1) Left leg cellulitis Current Visit: Yes Status: Acute Code(s): L03.116 - CELLULITIS OF LEFT LOWER LIMB SNOMED Code(s): 28102620041687189 (2) Allergy to penicillin Current Visit: No Status: Acute Code(s): Z88.0 - ALLERGY STATUS TO PENICILLIN SNOMED Code(s): 53231304 (3) Elevated WBC count Current Visit: Yes Status: Acute Code(s): D72.829 - ELEVATED WHITE BLOOD CELL COUNT, UNSPECIFIED SNOMED Code(s): 543412852 Plan: 1-Patient presented to hospital with multiple symptoms including increasing swelling to the left lower extremity in this patient who did have some redness and hard area to the left medial thigh however CT did not show any evidence of abscess 2-patient also have elevated liver enzymes however CT as well as ultrasound did not show any evidence of gallbladder stone or dilated CBD, patient is status postcholecystectomy completed on 08/06/2023 3--patient is afebrile patient white count mildly up but overall patient has received adequate antibiotic therapy for her leg infection and can be discontinued patient benefit from physical therapy and multiple question concern also Dictation was produced using [employer] software. please excuse any grammatical, word or spelling errors. Time with Patient: Less than 30
[2023-08-18 17:17] LABS: Glucose,Whole Blood 126 mg/dL (70-110)
[2023-08-18 20:13] LABS: Glucose,Whole Blood 119 mg/dL (70-110)
--- NOTE | 2023-08-19 01:30 | PN ---
PROGRESS NOTE DATE OF SERVICE: 08/18/2023 SUBJECTIVE: This is an 78-year-old woman, who was admitted after laparoscopic cholecystectomy and improved significantly. No chest pain. No palpitations. ECF rehab is awaited. OBJECTIVE: VITAL SIGNS: Pulse 78, blood pressure 92/48, respirations 16. CHEST: Clear to auscultation. CARDIOVASCULAR: S1, S2. ABDOMEN: Soft, status post surgery. LABORATORY DATA: Hemoglobin 7.7, rather stable. WBC 11.87, possible UTI. ASSESSMENT: 1. Acute cholecystitis, status post laparoscopic cholecystectomy. 2. Left leg cellulitis. 3. Possible acute urinary tract infection. 4. Change in mental status, metabolic encephalopathy, multifactorial. 5. Multiple complex medical issues. RECOMMENDATIONS AND DISCUSSION: Recommend to continue current management and continue symptomatic treatment. The patient is on Omnicef. Urine cultures are pending at this time. Otherwise, repeat labs. Guarded prognosis. Further recommendations to follow. MMODL / IJN: [id number] /
[2023-08-19 07:09] LABS: Glucose,Whole Blood 107 mg/dL (70-110)
[2023-08-19 11:44] LABS: Glucose,Whole Blood 130 mg/dL (70-110)
[2023-08-19 11:56] LABS: Basophils # (A) 0.08 X 10*3/uL (0.00-0.10); Basophils % (A) 0.6 %; Eosinophils # (A) 2.72 X 10*3/uL (0.04-0.35); Eosinophils % (A) 20.3 %; HCT 23.9 % (37.2-46.3); HGB 7.6 g/dL (12.0-15.0); Lymphocytes # (A) 2.99 X 10*3/uL (0.90-5.00); Lymphocytes % (A) 22.3 %; MCH 34.5 pg (27.0-32.0); MCHC 31.8 g/dL (32.0-37.0); MCV 108.6 FL (80.0-97.0); Monocytes # (A) 2.25 X 10*3/uL (0.20-1.00); Monocytes % (A) 16.8 %; NRBC Per 100 WBC 0.02 X 10*3/uL (0.00-0.01); Neutrophils # (A) 5.01 X 10*3/uL (1.80-7.70); Neutrophils % (A) 37.3 %; Platelet Count 131 X 10*3/uL (140-440); WBC 13.41 X 10*3/uL (4.50-10.00)
[2023-08-19 12:11] LABS: BUN/Creat Ratio 31.27 Ratio (12.00-20.00); Blood Urea Nitrogen 46.9 mg/dL (9.0-27.0); Carbon Dioxide 24.9 mmol/L (21.6-31.8); Chloride 103 mmol/L (96-109); Glucose 102 mg/dL (70-110); Potassium 4.9 mmol/L (3.5-5.5); Sodium 134 mmol/L (135-145)
[2023-08-19 12:12] LABS: Calcium 8.4 mg/dL (8.7-10.3)
[2023-08-19 12:45] VITALS: BP 112/54; PULSE 71; TEMP 97.5
[2023-08-19] MEDS: cloNIDine HCL 0.1 MG TAB PO SCH (12:45)
--- NOTE | 2023-08-19 13:04 | P.DS ---
Providers Date of admission: 08/03/23 07:41 Expected date of discharge: 08/19/23 Attending physician: Zoya Salazar Consults: 08/03/23 07:41 Consult Physician Routine Consulting Provider: Rai Monroy Consult Reason/Comments: Leukocytosis Do you want consulting provider notified?: Yes 08/05/23 08:35 Consult Physician Routine Consulting Provider: Srinath Nathan Consult Reason/Comments: gallstones, elevated LFTs Do you want consulting provider notified?: Already Contacted 08/13/23 13:30 Consult Physician Urgent Consulting Provider: Aidan Hood Consult Reason/Comments: ALTERED MENTAL STATUS Do you want consulting provider notified?: Yes 08/14/23 13:19 Consult Physician Urgent Consulting Provider: Jose Delcid Consult Reason/Comments: inpatient rehab, recent tania, weakness Do you want consulting provider notified?: Yes Primary care physician: Ricki Hood [facility] Course: Final diagnosis Acute cholecystitis, status post laparoscopic cholecystectomy Left leg cellulitis, present on admission, improved Altered mental status with acute confusion, likely toxic encephalopathy secondary to narcotic use, mentation improved after Narcan use Blood noted on brief, likely secondary to internal and external hemorrhoids, ruled out GI bleed History of paroxysmal atrial fibrillation Leukocytosis likely secondary to cellulitis, improved Generalized weakness with gait dysfunction Asthma history, not in exacerbation Hypertension history History of degenerative joint disease GI prophylaxis DVT prophylaxis Full code Discharge disposition Patient is being discharged in a stable condition with guarded prognosis to [facility]. Patient will follow-up with Dr. Hood in the outpatient setting upon discharge. Patient is to continue with close outpatient follow-up with general surgery as well as cardiology as scheduled. Total time taken is greater than 35 minutes. Hospital course This is a 78-year-old female who was recently admitted with right upper quadrant abdominal pain recently underwent cholecystectomy with multiple medical consultations following. Patient had some lower extremity cellulitis concerns on admission with some swelling and maintained on torsemide. Patient was continued on antibiotics with infectious disease following and being closely monitored off antibiotics. Patient noted to have some scant amounts of blood in the brief and found multiple external and internal hemorrhoids and is continued on Anusol. Anticoagulation had been on hold from surgery and hemoglobin which has been stable above 7. Patient is having bowel movements and tolerating diet and continues with extensive progressive weakness. Patient has had multiple hospitalizations since March and has been progressively becoming more weak. During this admission patient had altered mental status and underwent thorough neurological evaluation and negative findings other than most likely related to narcotic use. Patient had been receiving [place] as well as IV Dilaudid and significantly improved in mentation post Narcan. Highly recommend avoiding narcotic medications and family is agreeable with this. Initially patient's was reluctant to send her to [facility] as he has had bad experiences with other family members including his mother and sister although patient was seen and evaluated by physical therapy recommending rehab as patient is significantly weak and was independent prior to these hospitalizations. Patient and are now agreeable to [facility] requiring insurance authorization which has approved and [facility] has accepted the patient. Patient has been cleared by consultations for discharge home with outpatient follow-up with primary care provider. Please refer to other consultation notes for further HPI. Currently no reports of chest pain, shortness of breath, or palpitations. Patient is afebrile. No reports of nausea or vomiting and patient is tolerating diet. Patient will be going to [facility] today. Guarded prognosis and high risk for readmissions given patient's significant comorbidities and progressive weakness. Physical exam: Gen: This is a 78-year-old female who is awake, alert and oriented x 3, well- developed, well-nourished, elderly appearing HEENT: Head is atraumatic, normocephalic. Pupils equal, round. Sclerae is ani cteric. NECK: Supple. No JVD. No lymphadenopathy. No thyromegaly. LUNGS: Diminished breath sounds bilaterally otherwise clear to auscultation. No wheezes or rhonchi. No intercostal retractions. HEART: S1, S2 are muffled ABDOMEN: Soft. Obese, mildly tender on deep palpation bowel sounds are present. No masses. EXTREMITIES: No pedal edema. No calf tenderness. Generalized lower extremity edema bilaterally NEUROLOGICAL: Patient is awake, alert and oriented x3. Cranial nerves 2 through 12 are grossly intact. Diffusely weak Please refer to medication reconciliation sheet for a list of medications. The impression and plan of care has been dictated by Kailey Bates, Nurse Practitioner as directed. Dr. Martin MD I have performed a history and examination and MDM of this patient, discussed the same with the dictator, and agree with the dictator's assessment and plan as written ,documented as a scribe. Based on total visit time, I have performed more than 50% of the visit. Patient Condition at Discharge: Fair Plan - Discharge Summary New Discharge Prescriptions: New Tamsulosin [Flomax] 0.4 mg PO PC-BRKFST cap Metoprolol Tartrate [Lopressor] 12.5 mg PO BID tab Multivitamins, Thera [Multivitamin (formulary)] 1 each PO DAILY@1200 tab Thiamine [Vitamin B-1] 100 mg PO BID-W/MEALS tab Hydrocortisone Suppository [Anusol-Hc] 25 mg RECTAL BID 7 Days #14 suppositor Torsemide [Demadex] 10 mg PO DAILY tab Dapagliflozin Propanediol [Farxiga] 10 mg PO DAILY tab witch Ambrocio [Tucks Medicated Pads] 1 each TOPICAL AC-BID pad Acetaminophen Tab [Tylenol] 650 mg PO Q6HR PRN tab PRN Reason: Mild Pain Or Fever > 100.5 Continue Vit C/E/Zn/Coppr/Lutein/Zeaxan [Preservision Areds 2 Softgel] 1 cap PO BID Cholecalciferol (Vitamin D3) [Vitamin D3 (125 MCG = 5,000 IU)] 125 mcg PO DAILY Magnesium Oxide [Mag-Ox] 400 mg PO HS Folic Acid 1 mg PO DAILY Ipratropium-Albuterol Nebulize [Duoneb 0.5 mg-3 mg/3 ml Soln] 3 ml INHALATION RT-QID PRN PRN Reason: Shortness Of Breath Albuterol Sulfate [Ventolin HFA] 1 - 2 puff INHALATION RT-Q4H PRN PRN Reason: Shortness Of Breath Famotidine [Pepcid] 20 mg PO BID Cyanocobalamin (Vitamin B-12) [Vitamin B-12] 1,000 mcg PO DAILY Potassium Gluconate 99 mg PO DAILY Ferrous Sulfate [Iron (65 MG Elemental)] 325 mg PO DAILY Apixaban [Eliquis] 2.5 mg PO BID Discontinued Metoprolol Tartrate [Lopressor] 25 mg PO BID 30 Days #60 tablet Torsemide [Demadex] 20 mg PO DAILY Discharge Medication List Cyanocobalamin (Vitamin B-12) [Vitamin B-12] 1,000 mcg PO DAILY 12/30/20 [History] Vit C/E/Zn/Coppr/Lutein/Zeaxan [Preservision Areds 2 Softgel] 1 cap PO BID 12/30/20 [History] Cholecalciferol (Vitamin D3) [Vitamin D3 (125 MCG = 5,000 IU)] 125 mcg PO DAILY 04/25/21 [History] Magnesium Oxide [Mag-Ox] 400 mg PO HS 02/04/23 [History] Folic Acid 1 mg PO DAILY 06/08/23 [History] Potassium Gluconate 99 mg PO DAILY 06/08/23 [History] Albuterol Sulfate [Ventolin HFA] 1 - 2 puff INHALATION RT-Q4H PRN 08/03/23 [History] Apixaban [Eliquis] 2.5 mg PO BID 08/03/23 [History] Famotidine [Pepcid] 20 mg PO BID 08/03/23 [History] Ferrous Sulfate [Iron (65 MG Elemental)] 325 mg PO DAILY 08/03/23 [History] Ipratropium-Albuterol Nebulize [Duoneb 0.5 mg-3 mg/3 ml Soln] 3 ml INHALATION RT-QID PRN 08/03/23 [History] Acetaminophen Tab [Tylenol] 650 mg PO Q6HR PRN tab 08/16/23 [Rx] Dapagliflozin Propanediol [Farxiga] 10 mg PO DAILY tab 08/16/23 [Rx] Hydrocortisone Suppository [Anusol-Hc] 25 mg RECTAL BID 7 Days #14 suppositor 08/16/23 [Rx] Metoprolol Tartrate [Lopressor] 12.5 mg PO BID tab 08/16/23 [Rx] Multivitamins, Thera [Multivitamin (formulary)] 1 each PO DAILY@1200 tab 08/16/23 [Rx] Tamsulosin [Flomax] 0.4 mg PO PC-BRKFST cap 08/16/23 [Rx] Thiamine [Vitamin B-1] 100 mg PO BID-W/MEALS tab 08/16/23 [Rx] Torsemide [Demadex] 10 mg PO DAILY tab 08/16/23 [Rx] witch Ambrocio [Tucks Medicated Pads] 1 each TOPICAL AC-BID pad 08/16/23 [Rx] Follow up Appointment(s)/Referral(s): Pérez Gonzalez MD [STAFF PHYSICIAN] - 1 Week Ricki Hood DO [Primary Care Provider] - 1-2 days Activity/Diet/Wound Care/Special Instructions: Patient going to [facility] Activity as tolerated Follow-up with primary care provider on discharge Follow-up with general surgery outpatient in 1 week Monitor for any further bleeding Repeat CBC, BMP, magnesium in 2 to 3 days Continue cefdinir for 5 days and then may discontinue Continue Anusol twice daily for 1 week Discharge Disposition: TRANSFER TO SNF/ECF
--- NOTE | 2023-08-20 14:45 | P.PN ---
Subjective Progress Note Date: 08/19/23 Principal diagnosis: Reason for follow-up is left thigh and leg cellulitis Patient is a 78-year-old female with a past medical history significant for hypertension heart failure asthma heart failure lymphoma, presenting to the hospital with increasing swelling and redness to left lower extremity has been diagnosed with the cellulitis. On today's evaluation that is 08/19/2023, the patient continues to be afebrile, the patient is on room air and breathing comfortably, the Pt denies having any chest pain or cough, the patient has been complaining of weakness and difficulty getting around and some pain to the lower extremity. Patient white count of 13.41, creatinine is 1.5 blood culture has been negative Objective - Vital Signs Vital signs: Vital Signs Temp 97.5 F L 08/19/23 11:40 Pulse 71 08/19/23 11:40 Resp 16 08/19/23 11:40 BP 112/54 08/19/23 11:40 Pulse Ox 100 08/19/23 11:40 FiO2 Intake & Output 08/18/23 08/19/23 08/19/23 18:59 06:59 18:59 Intake Total 360 Output Total 1 Balance 359 Weight 75 kg Intake: Oral 360 Output: Stool 1 Other: Voiding Method Diaper Toilet Incontinent Diaper # Voids 3 3 1 # Bowel Movements 2 3 1 - Exam GENERAL DESCRIPTION: An elderly female lying in bed in no distress RESPIRATORY SYSTEM: Unlabored breathing , decreased breath sounds at bases HEART: S1 S2 regular rate and rhythm , ABDOMEN: Soft , no tenderness EXTREMITIES: Patient left thigh and leg swelling and redness slightly decreased - Labs CBC & Chem 7: 08/19/23 06:14 08/19/23 06:14 Labs: Abnormal Lab Results - Last 24 Hours (Table) 08/18/23 08/18/23 08/19/23 Range/Units 17:15 20:11 06:14 WBC 13.41 H (4.50-10.00) X 10*3/uL RBC 2.20 L (4.10-5.20) X 10*6/uL Hgb 7.6 L (12.0-15.0) g/dL Hct 23.9 L (37.2-46.3) % MCV 108.6 H (80.0-97.0) FL MCH 34.5 H (27.0-32.0) pg MCHC 31.8 L (32.0-37.0) g/dL RDW 16.0 H (11.5-14.5) % Plt Count 131 L (140-440) X 10*3/uL Immature Gran # 0.36 H (0.00-0.04) X 10*3/uL Monocytes # 2.25 H (0.20-1.00) X 10*3/uL Eosinophils # 2.72 H (0.04-0.35) X 10*3/uL NRBC/100 WBC Diff 0.02 H (0.00-0.01) X 10*3/uL Sodium (135-145) mmol/L BUN (9.0-27.0) mg/dL Est GFR (CKD-EPI) (>=60) BUN/Creatinine Ratio (12.00-20.00) Ratio POC Glucose (mg/dL) 126 H 119 H (70-110) mg/dL Calcium (8.7-10.3) mg/dL 08/19/23 08/19/23 Range/Units 06:14 11:42 WBC (4.50-10.00) X 10*3/uL RBC (4.10-5.20) X 10*6/uL Hgb (12.0-15.0) g/dL Hct (37.2-46.3) % MCV (80.0-97.0) FL MCH (27.0-32.0) pg MCHC (32.0-37.0) g/dL RDW (11.5-14.5) % Plt Count (140-440) X 10*3/uL Immature Gran # (0.00-0.04) X 10*3/uL Monocytes # (0.20-1.00) X 10*3/uL Eosinophils # (0.04-0.35) X 10*3/uL NRBC/100 WBC Diff (0.00-0.01) X 10*3/uL Sodium 134 L (135-145) mmol/L BUN 46.9 H (9.0-27.0) mg/dL Est GFR (CKD-EPI) 35 L (>=60) BUN/Creatinine Ratio 31.27 H (12.00-20.00) Ratio POC Glucose (mg/dL) 130 H (70-110) mg/dL Calcium 8.4 L (8.7-10.3) mg/dL Assessment and Plan (1) Left leg cellulitis Status: Acute Code(s): L03.116 - CELLULITIS OF LEFT LOWER LIMB SNOMED Code(s): 90783555493741185 (2) Allergy to penicillin Status: Acute Code(s): Z88.0 - ALLERGY STATUS TO PENICILLIN SNOMED Code(s): 86300510 (3) Elevated WBC count Status: Acute Code(s): D72.829 - ELEVATED WHITE BLOOD CELL COUNT, UNSPECIFIED SNOMED Code(s): 528834107 Plan: 1-Patient presented to hospital with multiple symptoms including increasing swelling to the left lower extremity in this patient who did have some redness and hard area to the left medial thigh however CT did not show any evidence of abscess 2-patient also have elevated liver enzymes however CT as well as ultrasound did not show any evidence of gallbladder stone or dilated CBD, patient is status postcholecystectomy completed on 08/06/2023 3--patient is afebrile, patient has received adequate antibiotic therapy for her cellulitis and Omnicef can be discontinued Multiple question concern answered Dictation was produced using [employer] dictation software. please excuse any grammatical, word or spelling errors. Time with Patient: Less than 30
== END 2023-08-19 16:25 | DRG 417 ==
LOC: EC 00:32 → 5NMEDONC 07:41
PROVIDERS: ADMIT Hospitalist; ATTEND Hospitalist
PROC: 0FT44ZZ Resection of Gallbladder, Percutaneous Endoscopic Approach (ICD-10-PCS; principal; 2023-08-06 07:30)
DX: K80.00 Calculus of gallbladder with acute cholecystitis without obstruction (principal); G92.8 Other toxic encephalopathy; I50.43 Acute on chronic combined systolic (congestive) and diastolic (congestive) heart failure; K82.1 Hydrops of gallbladder; I13.0 Hypertensive heart and chronic kidney disease with heart failure and stage 1 through stage 4 chronic kidney disease, or unspecified chronic kidney disease; L03.116 Cellulitis of left lower limb; G89.29 Other chronic pain; I25.10 Atherosclerotic heart disease of native coronary artery without angina pectoris; I48.0 Paroxysmal atrial fibrillation; T40.605A Adverse effect of unspecified narcotics, initial encounter; K64.8 Other hemorrhoids; K64.4 Residual hemorrhoidal skin tags; R26.9 Unspecified abnormalities of gait and mobility; J45.909 Unspecified asthma, uncomplicated; M19.90 Unspecified osteoarthritis, unspecified site; G72.41 Inclusion body myositis [IBM]; K74.60 Unspecified cirrhosis of liver; R53.81 Other malaise; M51.36 Other intervertebral disc degeneration, lumbar region; E80.6 Other disorders of bilirubin metabolism; R74.01 Elevation of levels of liver transaminase levels; M48.061 Spinal stenosis, lumbar region without neurogenic claudication; Z87.11 Personal history of peptic ulcer disease; Z71.3 Dietary counseling and surveillance; Z28.21 Immunization not carried out because of patient refusal; Z88.0 Allergy status to penicillin; Z88.8 Allergy status to other drugs, medicaments and biological substances; Z79.01 Long term (current) use of anticoagulants
CPT/HCPCS: 36415; 70450; 71045; 74176; 76705; 80048; 80053; 81001; 81003; 82140; 82607; 82746; 83605; 83735; 83880; 84443; 84484; 85025; 85027; 87040; 87077; 87086; 87186; 88304; 93005; 93306; 95816; 96365; 96375; 96376; 99285

== ENCOUNTER 2023-09-20 22:33 | Emergency (ER) | payer MEDICARE ==
[2023-09-20] MEDS: SODIUM CHLORIDE 0.9% 500 ML 500 ML IV STA (23:20)
[2023-09-20 23:25] VITALS: TEMP 98
[2023-09-20 23:43] LABS: INR 1.4 (<1.2); Partial Thromboplastin Time 29.8 sec (22.0-30.0); Prothrombin Time 14.7 sec (10.0-12.5)
[2023-09-20 23:45] LABS: ALT 32 U/L (4-34); AST 63 U/L (14-36); African American GFR (CKD) 37 (>60 ml/min/1.73 sqM); Albumin 1.9 g/dL (3.5-5.0); Alkaline Phosphatase 200 U/L (38-126); Anion Gap 10 mmol/L; Blood Urea Nitrogen 48 mg/dL (7-17); Calcium 7.7 mg/dL (8.4-10.2); Carbon Dioxide 16 mmol/L (22-30); Chloride 105 mmol/L (98-107); Glucose 63 mg/dL (74-99); Magnesium 1.7 mg/dL (1.6-2.3); Non-African American GFR(CKD) 32 (>60 ml/min/1.73 sqM); Sodium 131 mmol/L (137-145); Total Protein 5.3 g/dL (6.3-8.2)
[2023-09-21 00:10] LABS: Anisocytosis Slight; HGB 8.2 gm/dL (11.4-16.0); MCH 34.4 pg (25.0-35.0); MCHC 31.6 g/dL (31.0-37.0); MCV 108.8 fL (80.0-100.0); Macrocytosis Marked; Mean Platelet Volume 8.6; Platelet Count 103 k/uL (150-450); RBC 2.39 m/uL (3.80-5.40); RDW 16.3 % (11.5-15.5); WBC 5.5 k/uL (3.8-10.6)
[2023-09-21] MEDS: SODIUM CHLORIDE 0.9% 1,000 ML IV SCH (00:36)
--- NOTE | 2023-09-21 00:50 | XR ---
EXAM: XR Chest, 1 View CLINICAL HISTORY: hypotension TECHNIQUE: Frontal view of the chest. COMPARISON: Portable chest single view 08/12/2023 FINDINGS: Lungs: The pulmonary vasculature is prominent and equalized, new from the previous exam. No focal airspace consolidation. Pleural space: No definite pleural effusion or pneumothorax, accounting for limitations with supine technique. Heart: Stable to increased cardiomegaly. Mediastinum: No significant abnormality identified. The trachea is midline. Bones/joints: Unremarkable. No acute fracture. IMPRESSION: 1. Stable to increased cardiomegaly. 2. The pulmonary vasculature is prominent and equalized, new from the previous exam. Despite supine technique, findings are consistent with pulmonary vascular congestion. No focal airspace consolidation. No obvious pleural effusion or pneumothorax, accounting for limitations with supine technique.
[2023-09-21 00:58] LABS: Appearance,Urine Clear (Clear); Bilirubin,Urine Negative (Negative); Blood,Urine Negative (Negative); Color,Urine Light Yellow; Glucose,Urine (UA) Negative (Negative); Ketones,Urine Negative (Negative); Leukocyte Esterase,Urine Negative (Negative); Nitrite,Urine Negative (Negative); Protein,Urine Negative (Negative); Specific Gravity,Urine 1.011 (1.001-1.035); Urobilinogen,Urine <2.0 mg/dL (<2.0)
[2023-09-21 01:07] VITALS: RESP 18
[2023-09-21] MEDS: DEXTROSE 50% SYRINGE 50 ML IVP STA (01:26)
--- NOTE | 2023-09-21 01:28 | P.GSCN ---
History of Present Illness Consult date: 09/21/23 History of present illness: CHIEF COMPLAINT: Hypertension with GI bleed HISTORY OF PRESENT ILLNESS: The patient is a 78-year-old female presents to the emergency room with acute GI bleed. She is somnolent. Per discussion with ER staff, patient has large multiple bloody bowel movements. History is obtained by her at bedside. gives additional history where patient has personal history of gastric ulcers less than 1 month ago. Incidentally, patient noted to have blood in stool today. She presents with hemoglobin of 8.3, anemia. Patient is hypotensive with systolic blood pressure in the 70s after 2 L normal saline. She has minimal response to IV fluids. General surgery is consulted for acute management. Patient was recently hospitalized 4 to 6 weeks ago where she had gallbladder removal including findings of liver cirrhosis. PAST MEDICAL HISTORY: See list and reviewed PAST SURGICAL HISTORY: See list and reviewed MEDICATIONS: See list and reviewed ALLERGIES: See list and reviewed SOCIAL HISTORY: See list and reviewed FAMILY HISTORY: See list and reviewed REVIEW OF ORGAN SYSTEMS: CONSTITUTIONAL: No fevers or chills. No recent weight loss. EYES: Denies any trouble with vision. No glasses. HEENT: No difficulties with hearing. No nosebleeds. No difficulty swallowing. RESPIRATORY: Has asthma. CARDIOVASCULAR: Has pre-existing heart disease with congestive heart failure. History of hypertensive heart disease. History of heart catheterization. GASTROINTESTINAL: Denies fatty food intolerance. Denies change in bowel habits and gas bloat. Has iron deficiency anemia. Has gastroesophageal reflux disease. GENITOURINARY: Has bladder disorder. NEUROLOGICAL: Denies any numbness or tingling along the distal extremities. No seizure disorders or headaches. MUSCULOSKELETAL: Has spinal stenosis. Has myositis SKIN: No current skin cancer. No rash. PSYCHIATRIC: Denies current depression or suicidal thoughts. ENDOCRINE: Has diabetes type 2, not insulin-dependent. HEME/LYMPHATIC: Denies any lumps and bumps around the neck. No recent deep venous thrombosis. ALLERGY/IMMUNOLOGY: No immunoglobulin therapy. No immune deficiencies. BREAST: Denies current breast lumps, pain or nipple discharge. PHYSICAL EXAM: VITALS: Reviewed CONSTITUTIONAL: Well developed and in no acute distress. EYES: Conjuctivae without sclera icterus. Extraocular movements grossly intact. HEAD, EARS, NOSE, THROAT: Moist buccal mucosa. Head is atraumatic, normocephalic. Hears conversational speech. No nasal drainage. NECK: Supple. No JV distention. No thyroidomegaly. RESPIRATORY: Non-labored respirations and equal bilateral excursions. No gross wheezes. CARDIOVASCULAR: Palpable 2+ radial pulses. ABDOMEN: Obese, no peritonitis. LYMPH: No neck lymphadenopathy. MUSCULOSKELETAL: No clubbing cyanosis or edema SKIN: Warm and well perfused with good skin turgor. NEUROLOGIC: Cranial nerves II through XII grossly intact. No focal or lateralizing signs. PSYCH: Appropriate affect. Alert and oriented to person, place and time. Displays appropriate insight. CLINCAL LABS: Reviewed. Anemia with hemoglobin 8.2 discharge hemoglobin 7.9 upon last admission. LFTs elevated. IMAGING: Independently reviewed. Chest x-ray independently reviewed demonstrates no pneumothorax or infiltrate. This is my independent interpretat ion. EKG reviewed demonstrates left bundle branch block RADIOLOGY: Report reviewed demonstrates chest x-ray for pulmonary vascular congestion RECORDS: previous old records reviewed with presentation of bilateral lower extremity edema and leukocytosis. Operative report reviewed. ASSESSMENT: 1. Hypotensive shock due to acute blood loss anemia 2. Diabetes type 2, not insulin-dependent 3. Chronic anemia 4. Acute hematochezia 5. Liver cirrhosis PLAN: 1. Despite IV fluid hydration, patient has severe hypotension. Recommend immediate blood products with critical care management. 2. Due to upper GI bleed and no GI coverage, agree with transfer to facility for GI Endo clipping of possible upper GI bleed. ADVANCE DIRECTIVE: CODE STATUS in chart. Thank you for this kind consultation. 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 History of Any Multi-Drug Resistant Organisms: None Reported Past Surgical History: Heart Catheterization Additional Past Surgical History / Comment(s): EYE SURGERY DUE TO INJURY, EGD, COLONOSCOPY, BONE MARROW BIOPSY, cataracts, muscle biopsy Past Anesthesia/Blood Transfusion Reactions: No Reported Reaction Past Psychological History: No Psychological Hx Reported Smoking Status: Never smoker Past Alcohol Use History: Occasional Past Drug Use History: None Reported - Past Family History Sister(s) Family Medical History: Cancer Additional Family Medical History / Comment(s): LEUKEMIA- at age 42 Brother(s) Family Medical History: Cancer Additional Family Medical History / Comment(s): with unknown type CA at age 60s Medications and Allergies Home Medications Medication Instructions Recorded Confirmed Type Cyanocobalamin (Vitamin B-12) 1,000 mcg PO DAILY 12/30/20 08/03/23 History [Vitamin B-12] Vit C/E/Zn/Coppr/Lutein/Zeaxan 1 cap PO BID 12/30/20 08/03/23 History [Preservision Areds 2 Softgel] Cholecalciferol (Vitamin D3) 125 mcg PO DAILY 04/25/21 08/03/23 History [Vitamin D3 (125 MCG = 5,000 IU)] Magnesium Oxide [Mag-Ox] 400 mg PO HS 02/04/23 08/03/23 History Folic Acid 1 mg PO DAILY 06/08/23 08/03/23 History Potassium Gluconate 99 mg PO DAILY 06/08/23 08/03/23 History Albuterol Sulfate [Ventolin HFA] 1 - 2 puff INHALATION RT-Q4H PRN 08/03/23 08/03/23 History Famotidine [Pepcid] 20 mg PO BID 08/03/23 08/03/23 History Ferrous Sulfate [Iron (65 MG 325 mg PO DAILY 08/03/23 08/03/23 History Elemental)] Ipratropium-Albuterol Nebulize 3 ml INHALATION RT-QID PRN 08/03/23 08/03/23 History [Duoneb 0.5 mg-3 mg/3 ml Soln] Acetaminophen Tab [Tylenol] 650 mg PO Q6HR PRN tab 08/16/23 Rx Dapagliflozin Propanediol [Farxiga] 10 mg PO DAILY tab 08/16/23 Rx Hydrocortisone Suppository 25 mg RECTAL BID 7 Days #14 08/16/23 Rx [Anusol-Hc] suppositor Metoprolol Tartrate [Lopressor] 12.5 mg PO BID tab 08/16/23 Rx Multivitamins, Thera [Multivitamin 1 each PO DAILY@1200 tab 08/16/23 Rx (formulary)] Tamsulosin [Flomax] 0.4 mg PO PC-BRKFST cap 08/16/23 Rx Thiamine [Vitamin B-1] 100 mg PO BID-W/MEALS tab 08/16/23 Rx Torsemide [Demadex] 10 mg PO DAILY tab 08/16/23 Rx witch Ambrocio [Tucks Medicated Pads] 1 each TOPICAL AC-BID pad 08/16/23 Rx Heparin Sodium,Porcine (1 ml) 5,000 unit SQ Q12HR #60 each 08/19/23 Rx [Heparin Sodium] Allergies Allergy/AdvReac Type Severity Reaction Status Date / Time omeprazole [From Prilosec] Allergy Unknown Rash/Hives, Verified 08/06/23 16:44 TONGUE SWELLLING omeprazole magnesium Allergy Unknown Rash/Hives, Verified 08/06/23 16:44 [From Prilosec] TONGUE SWELLLING Penicillins Allergy Unknown Rash/Hives/ Verified 08/06/23 16:44 Itching amlodipine Allergy fide pedal Verified 08/06/23 16:44 edema, loss voice carvedilol Allergy shortness Verified 08/06/23 16:44 of breath lisinopril Allergy Unknown Verified 08/06/23 16:44 Surgical - Exam Vital Signs Temp Pulse Resp BP Pulse Ox 98.0 F 78 16 79/36 100 09/20/23 22:35 09/20/23 22:35 09/20/23 22:35 09/20/23 22:35 09/20/23 22:35 Results - Labs 09/20/23 23:11 09/20/23 23:11 Abnormal Lab Results - Last 24 Hours (Table) 09/20/23 09/20/23 09/20/23 Range/Units 23:11 23:11 23:11 RBC 2.39 L (3.80-5.40) m/uL Hgb 8.2 L (11.4-16.0) gm/dL Hct 26.0 L (34.0-46.0) % MCV 108.8 H (80.0-100.0) fL RDW 16.3 H (11.5-15.5) % Plt Count 103 L (150-450) k/uL Macrocytosis Marked A PT 14.7 H (10.0-12.5) sec INR 1.4 H (<1.2) Sodium 131 L (137-145) mmol/L Potassium 3.0 L (3.5-5.1) mmol/L Carbon Dioxide 16 L (22-30) mmol/L BUN 48 H (7-17) mg/dL Creatinine 1.52 H (0.52-1.04) mg/dL Glucose 63 L (74-99) mg/dL Plasma Lactic Acid Shane (0.7-2.0) mmol/L Calcium 7.7 L (8.4-10.2) mg/dL Total Bilirubin 2.0 H (0.2-1.3) mg/dL AST 63 H (14-36) U/L Alkaline Phosphatase 200 H (38-126) U/L Troponin I (0.000-0.034) ng/mL Total Protein 5.3 L (6.3-8.2) g/dL Albumin 1.9 L (3.5-5.0) g/dL Stool Occult Blood (Negative) 09/20/23 09/20/23 09/21/23 Range/Units 23:11 23:11 00:05 RBC (3.80-5.40) m/uL Hgb (11.4-16.0) gm/dL Hct (34.0-46.0) % MCV (80.0-100.0) fL RDW (11.5-15.5) % Plt Count (150-450) k/uL Macrocytosis PT (10.0-12.5) sec INR (<1.2) Sodium (137-145) mmol/L Potassium (3.5-5.1) mmol/L Carbon Dioxide (22-30) mmol/L BUN (7-17) mg/dL Creatinine (0.52-1.04) mg/dL Glucose (74-99) mg/dL Plasma Lactic Acid Shane 3.4 H* (0.7-2.0) mmol/L Calcium (8.4-10.2) mg/dL Total Bilirubin (0.2-1.3) mg/dL AST (14-36) U/L Alkaline Phosphatase (38-126) U/L Troponin I 0.069 H* (0.000-0.034) ng/mL Total Protein (6.3-8.2) g/dL Albumin (3.5-5.0) g/dL Stool Occult Blood Positive H (Negative) Diabetes panel 09/20/23 Range/Units 23:11 Sodium 131 L (137-145) mmol/L Potassium 3.0 L (3.5-5.1) mmol/L Chloride 105 (98-107) mmol/L Carbon Dioxide 16 L (22-30) mmol/L BUN 48 H (7-17) mg/dL Creatinine 1.52 H (0.52-1.04) mg/dL Glucose 63 L (74-99) mg/dL Calcium 7.7 L (8.4-10.2) mg/dL AST 63 H (14-36) U/L ALT 32 (4-34) U/L Alkaline Phosphatase 200 H (38-126) U/L Total Protein 5.3 L (6.3-8.2) g/dL Albumin 1.9 L (3.5-5.0) g/dL Calcium panel 09/20/23 Range/Units 23:11 Calcium 7.7 L (8.4-10.2) mg/dL Albumin 1.9 L (3.5-5.0) g/dL Pituitary panel 09/20/23 Range/Units 23:11 Sodium 131 L (137-145) mmol/L Potassium 3.0 L (3.5-5.1) mmol/L Chloride 105 (98-107) mmol/L Carbon Dioxide 16 L (22-30) mmol/L BUN 48 H (7-17) mg/dL Creatinine 1.52 H (0.52-1.04) mg/dL Glucose 63 L (74-99) mg/dL Calcium 7.7 L (8.4-10.2) mg/dL Adrenal panel 09/20/23 Range/Units 23:11 Sodium 131 L (137-145) mmol/L Potassium 3.0 L (3.5-5.1) mmol/L Chloride 105 (98-107) mmol/L Carbon Dioxide 16 L (22-30) mmol/L BUN 48 H (7-17) mg/dL Creatinine 1.52 H (0.52-1.04) mg/dL Glucose 63 L (74-99) mg/dL Calcium 7.7 L (8.4-10.2) mg/dL Total Bilirubin 2.0 H (0.2-1.3) mg/dL AST 63 H (14-36) U/L ALT 32 (4-34) U/L Alkaline Phosphatase 200 H (38-126) U/L Total Protein 5.3 L (6.3-8.2) g/dL Albumin 1.9 L (3.5-5.0) g/dL
[2023-09-21] MEDS: TRANEXAMIC 1,000 MG/100ML-NACL 1,000 MG in SALINE 1 100ML.BAG IVPB ONE (01:35)
--- NOTE | 2023-09-21 01:47 | ED ---
General Adult HPI - General Chief complaint: Weakness Stated complaint: Hypotensive Weakness Time Seen by Provider: 09/20/23 23:09 Source: EMS Mode of arrival: EMS Limitations: no limitations - History of Present Illness Initial comments: This patient is an 78-year-old woman who is here to have evaluation for generalized weakness. Patient's recent history notable for being in the detention for approximately 1 month on rehabilitation after having had cholecystectomy for acute cholecystitis. The patient reportedly also told that she had an ulcer approximately a month ago. Patient currently denying abdominal pain. No vomiting. Patient has not noted any blood per rectum or tarry stools. The patient's main complaint being that she is too weak to get around the house. She is not able to stand due to weakness. She did note some right leg s welling and weeping. Onset/Timin -: days(s) Severity scale (1-10): 0 Consistency: constant Improves with: none Worsens with: none Treatments Prior to Arrival: none - Related Data Home Medications Medication Instructions Recorded Confirmed Cyanocobalamin (Vitamin B-12) 1,000 mcg PO DAILY 12/30/20 08/03/23 [Vitamin B-12] Vit C/E/Zn/Coppr/Lutein/Zeaxan 1 cap PO BID 12/30/20 08/03/23 [Preservision Areds 2 Softgel] Cholecalciferol (Vitamin D3) 125 mcg PO DAILY 04/25/21 08/03/23 [Vitamin D3 (125 MCG = 5,000 IU)] Magnesium Oxide [Mag-Ox] 400 mg PO HS 02/04/23 08/03/23 Folic Acid 1 mg PO DAILY 06/08/23 08/03/23 Potassium Gluconate 99 mg PO DAILY 06/08/23 08/03/23 Albuterol Sulfate [Ventolin HFA] 1 - 2 puff INHALATION RT-Q4H PRN 08/03/23 08/03/23 Famotidine [Pepcid] 20 mg PO BID 08/03/23 08/03/23 Ferrous Sulfate [Iron (65 MG 325 mg PO DAILY 08/03/23 08/03/23 Elemental)] Ipratropium-Albuterol Nebulize 3 ml INHALATION RT-QID PRN 08/03/23 08/03/23 [Duoneb 0.5 mg-3 mg/3 ml Soln] Previous Rx's Medication Instructions Recorded Acetaminophen Tab [Tylenol] 650 mg PO Q6HR PRN tab 08/16/23 Dapagliflozin Propanediol [Farxiga] 10 mg PO DAILY tab 08/16/23 Hydrocortisone Suppository 25 mg RECTAL BID 7 Days #14 08/16/23 [Anusol-Hc] suppositor Metoprolol Tartrate [Lopressor] 12.5 mg PO BID tab 08/16/23 Multivitamins, Thera [Multivitamin 1 each PO DAILY@1200 tab 08/16/23 (formulary)] Tamsulosin [Flomax] 0.4 mg PO PC-BRKFST cap 08/16/23 Thiamine [Vitamin B-1] 100 mg PO BID-W/MEALS tab 08/16/23 Torsemide [Demadex] 10 mg PO DAILY tab 08/16/23 witch Ambrocio [Tucks Medicated Pads] 1 each TOPICAL AC-BID pad 08/16/23 Heparin Sodium,Porcine (1 ml) 5,000 unit SQ Q12HR #60 each 08/19/23 [Heparin Sodium] Allergies Allergy/AdvReac Type Severity Reaction Status Date / Time omeprazole [From Prilosec] Allergy Unknown Rash/Hives, Verified 08/06/23 16:44 TONGUE SWELLLING omeprazole magnesium Allergy Unknown Rash/Hives, Verified 08/06/23 16:44 [From Prilosec] TONGUE SWELLLING Penicillins Allergy Unknown Rash/Hives/ Verified 08/06/23 16:44 Itching amlodipine Allergy fide pedal Verified 08/06/23 16:44 edema, loss voice carvedilol Allergy shortness Verified 08/06/23 16:44 of breath lisinopril Allergy Unknown Verified 08/06/23 16:44 Review of Systems ROS Statement: Those systems with pertinent positive or pertinent negative responses have been documented in the HPI. ROS Other: All systems not noted in ROS Statement are negative. Constitutional: Reports: weakness. Denies: fever, chills Eyes: Denies: vision change Respiratory: Denies: cough, dyspnea, wheezes Cardiovascular: Denies: chest pain, palpitations, edema Gastrointestinal: Denies: abdominal pain, nausea, vomiting, diarrhea, constipat ion, melena, hematochezia Genitourinary: Denies: dysuria, hematuria Musculoskeletal: Denies: back pain Skin: Denies: rash Neurological: Denies: headache, weakness, numbness Hematological/Lymphatic: Denies: easy bleeding Past Medical History Past Medical History: Asthma, Heart Failure, Eye Disorder, Hypertension, Musculoskeletal Disorder, Osteoarthritis (OA) Additional Past Medical History / Comment(s): ENVIRONMENTAL ALLERGIES, BACK STENOSIS, 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 History of Any Multi-Drug Resistant Organisms: None Reported Past Surgical History: Heart Catheterization Additional Past Surgical History / Comment(s): EYE SURGERY DUE TO INJURY, EGD, COLONOSCOPY, BONE MARROW BIOPSY, cataracts, muscle biopsy Past Anesthesia/Blood Transfusion Reactions: No Reported Reaction Past Psychological History: No Psychological Hx Reported Smoking Status: Never smoker Past Alcohol Use History: Occasional Past Drug Use History: None Reported - Past Family History Sister(s) Family Medical History: Cancer Additional Family Medical History / Comment(s): LEUKEMIA- at age 42 Brother(s) Family Medical History: Cancer Additional Family Medical History / Comment(s): with unknown type CA at age 60s General Exam Limitations: no limitations General appearance: alert, in no apparent distress Head exam: Present: atraumatic, normocephalic Eye exam: Present: normal appearance. Absent: scleral icterus, conjunctival injection ENT exam: Present: mucous membranes dry Neck exam: Present: normal inspection Respiratory exam: Present: normal lung sounds bilaterally, rales (Bilateral bases). Absent: respiratory distress, wheezes, rhonchi, stridor, accessory muscle use Cardiovascular Exam: Present: regular rate, normal rhythm, systolic murmur. Absent: diastolic murmur, rubs, gallop GI/Abdominal exam: Present: soft. Absent: distended, tenderness, guarding, rebound, rigid, mass, pulsatile mass, hernia Rectal exam: Present: normal inspection, normal rectal tone, heme (+) stool. Absent: mass, tenderness Extremities exam: Present: normal capillary refill, other (Stasis ulcer right pretibial area with mild erythema). Absent: pedal edema, calf tenderness Back exam: Present: normal inspection. Absent: CVA tenderness (R), CVA tenderness (L) Neurological exam: Present: alert Skin exam: Present: warm, dry, intact, erythema (@Right lower extremity stasis ulcer). Absent: rash Course Vital Signs 09/20/23 09/20/23 09/20/23 22:35 22:46 23:00 Temperature 98.0 F Pulse Rate 78 80 70 Respiratory 16 18 15 Rate Blood Pressure 79/36 82/47 72/30 O2 Sat by Pulse 100 100 100 Oximetry 09/20/23 09/20/23 09/20/23 23:15 23:16 23:30 Temperature Pulse Rate 83 63 80 Respiratory 18 18 16 Rate Blood Pressure 72/32 73/32 73/32 O2 Sat by Pulse 100 99 100 Oximetry 09/20/23 09/21/23 09/21/23 23:45 00:00 00:24 Temperature Pulse Rate 81 81 80 Respiratory 20 19 18 Rate Blood Pressure 71/35 71/37 72/36 O2 Sat by Pulse 100 100 100 Oximetry 09/21/23 09/21/23 09/21/23 01:00 01:37 02:35 Temperature Pulse Rate 78 73 64 Respiratory 18 18 18 Rate Blood Pressure 69/44 68/39 72/40 O2 Sat by Pulse 100 100 100 Oximetry 09/21/23 09/21/23 09/21/23 02:45 03:05 03:22 Temperature 98.0 F 98.0 F 98.0 F Pulse Rate 77 77 78 Respiratory 18 18 18 Rate Blood Pressure 78/47 79/56 80/46 O2 Sat by Pulse 100 99 98 Oximetry EKG Findings - EKG Results: EKG: interpreted by ERMAlex, sinus rhythm (Rate 69 bpm) - Blocks, [place], Hypertrophy, ST Abn: AV and intraventricular conduction: left bundle branch block (fixed/intermittent, complete/incomplete) QRS axis and voltage: left axis deviation (-30 to -90) Medical Decision Making - Medical Decision Making Patient is 78-year-old woman here for generalized weakness and fatigue. I was called to the bedside when the nurses were changing patient's brief as there was some maroon stool. I did perform Hemoccult which was positive. Type and cross ordered and pending transfusion. I discussed case with patient and her who did express desire to stay local if that is possible and therefore Dr. Zhou consulted. Given the patient's history of possible ulcer and possible upper GI bleeding associated with hypotension it is best to transfer patient where there is GI coverage. After discussion they are amenable with [facility]. I discussed the case with Dr. Hanson there who will accept transfer The patient had chest x-ray which I interpreted as negative for acute infiltrate or pneumothorax. Was pt. sent in by a medical professional or institution ([facility], [employer] WORK[employer], urgent care, hospital, or detention...) When possible be specific @ -[No] Did you speak to anyone other than the patient for history (EMS, parent, family, police, friend...)? What history was obtained from this source @ -[Patient's contributed to history Did you review nursing and triage notes (agree or disagree)? Why? @ -[I reviewed and agree with nursing and triage notes] Were old charts reviewed (outside hosp., previous admission, EMS record, old EKG, old radiological studies, urgent care reports/EKG's, detention records)? Report findings @ -[No old charts were reviewed] Differential Diagnosis (chest pain, altered mental status, abdominal pain women, abdominal pain men, vaginal bleeding, weakness, fever, dyspnea, syncope, headache, dizziness, GI bleed, back pain, seizure, CVA, palpatations, mental health, musculoskeletal)? @ -[Differential GI Bleed: Esophageal varices, aortoenteric fistula, Pilar-Franks, gastritis, peptic ulcer disease, diverticulosis, inflammatory bowel disease, hemorrhoids, fissure, colitis, malignancy, Meckels diverticulum, this is not meant to be an all- inclusive list. EKG interpreted by me (3pts min.). @ -[I interpreted as above] X-rays interpreted by me (1pt min.). @ -[I interpreted as above CT interpreted by me (1pt min.). @ -[None done] U/S interpreted by me (1pt. min.). @ -[None done] What testing was considered but not performed or refused? (CT, X-rays, U/S, labs)? Why? @ -[None] What meds were considered but not given or refused? Why? @ -[None] Did you discuss the management of the patient with other professionals (professionals i.e. [facility], [employer] WORKER, lab, RT, psych nurse, director social, datawarehouse developer, teacher, supervisory cbp officer, case management assistant)? Give summary @ -[Case discussed with the physician at the receiving hospital Was smoking cessation discussed for >3mins.? @ -[No] Was critical care preformed (if so, how long)? @ -[Yes, 35 minutes Were there social determinants of health that impacted care today? How? (Homelessness, low income, unemployed, alcoholism, drug addiction, transportation, low edu. Level, literacy, decrease access to med. care, longterm, rehab)? @ -[No] Was there de-escalation of care discussed even if they declined (Discuss DNR or withdrawal of care, Hospice)? DNR status @ -[No] What co-morbidities impacted this encounter? (DM, HTN, Smoking, COPD, CAD, Cancer, CVA, ARF, Chemo, Hep., AIDS, mental health diagnosis, sleep apnea, morbid obesity)? @ -[History of asthma, hypertension, heart failure Was patient admitted / discharged? Hospital course, mention meds given and route, prescriptions, significant lab abnormalities, going to OR and other pertinent info. @ -[Patient is transferred to facility with gastroenterology coverage. I discussed case with the accepting physician. The patient was given 1 dose of H2 breanne. Type and cross was performed and then transfusion started prior to transfer. Undiagnosed new problem with uncertain prognosis? @ -[No] Drug Therapy requiring intensive monitoring for toxicity (Heparin, Nitro, Insulin, Cardizem)? @ -[No] Were any procedures done? @ -[No] Diagnosis/symptom? @ -[Acute GI bleed Anemia Lactic acidosis Elevated troponin Acute, or Chronic, or Acute on Chronic? @ -[Acute Uncomplicated (without systemic symptoms) or Complicated (systemic symptoms)? @ -[default] Side effects of treatment? @ -[No] Exacerbation, Progression, or Severe Exacerbation? @ -[No] Poses a threat to life or bodily function? How? (Chest pain, [place], [place], pneumonia, PE, COPD, DKA, ARF, appy, cholecystitis, CVA, Diverticulitis, Homicidal, Suicidal, threat to staff... and all critical care pts) @ -[Yes - Lab Data Result diagrams: 09/20/23 23:11 09/20/23 23:11 Lab Results 09/20/23 09/20/23 09/20/23 Range/Units 23:11 23:11 23:11 WBC 5.5 (3.8-10.6) k/uL RBC 2.39 L (3.80-5.40) m/uL Hgb 8.2 L (11.4-16.0) gm/dL Hct 26.0 L (34.0-46.0) % MCV 108.8 H (80.0-100.0) fL MCH 34.4 (25.0-35.0) pg MCHC 31.6 (31.0-37.0) g/dL RDW 16.3 H (11.5-15.5) % Plt Count 103 L (150-450) k/uL MPV 8.6 Neutrophils % (Manual) 71 % Band Neuts % (Manual) 7 % Lymphocytes % (Manual) 13 % Monocytes % (Manual) 2 % Eosinophils % (Manual) 6 % Metamyelocytes % 3 % Myelocytes % 1 % Neutrophils # (Manual) 4.20 (1.3-7.7) k/uL Lymphocytes # (Manual) 0.72 L (1.0-4.8) k/uL Monocytes # (Manual) 0.11 (0-1.0) k/uL Eosinophils # (Manual) 0.33 (0-0.7) k/uL Metamyelocytes # (Man) 0.17 H (0) k/uL Myelocytes # (Manual) 0.06 H (0) k/uL Nucleated RBCs 0 (0-0) /100 WBC Manual Slide Review Performed Anisocytosis Slight Macrocytosis Marked A Crenated Cell Present PT 14.7 H (10.0-12.5) sec INR 1.4 H (<1.2) APTT 29.8 (22.0-30.0) sec Sodium 131 L (137-145) mmol/L Potassium 3.0 L (3.5-5.1) mmol/L Chloride 105 (98-107) mmol/L Carbon Dioxide 16 L (22-30) mmol/L Anion Gap 10 mmol/L BUN 48 H (7-17) mg/dL Creatinine 1.52 H (0.52-1.04) mg/dL Est GFR (CKD-EPI)AfAm 37 (>60 ml/min/1.73 sqM) Est GFR (CKD-EPI)NonAf 32 (>60 ml/min/1.73 sqM) Glucose 63 L (74-99) mg/dL POC Glucose (mg/dL) (70-110) mg/dL POC Glu Tank Systems Maintainer ID Lactic Ac Sepsis Rflx Plasma Lactic Acid Shane (0.7-2.0) mmol/L Calcium 7.7 L (8.4-10.2) mg/dL Magnesium 1.7 (1.6-2.3) mg/dL Total Bilirubin 2.0 H (0.2-1.3) mg/dL AST 63 H (14-36) U/L ALT 32 (4-34) U/L Alkaline Phosphatase 200 H (38-126) U/L Troponin I (0.000-0.034) ng/mL Total Protein 5.3 L (6.3-8.2) g/dL Albumin 1.9 L (3.5-5.0) g/dL Urine Color Urine Appearance (Clear) Urine pH (5.0-8.0) Ur Specific [place] (1.001-1.035) Urine Protein (Negative) Urine Glucose (UA) (Negative) Urine Ketones (Negative) Urine Blood (Negative) Urine Nitrite (Negative) Urine Bilirubin (Negative) Urine Urobilinogen (<2.0) mg/dL Ur Leukocyte Esterase (Negative) Stool Occult Blood (Negative) Blood Type Blood Type Recheck Bld Type Recheck Status Antibody Screen Crossmatch Spec Expiration Date 09/20/23 09/20/23 09/20/23 Range/Units 23:11 23:11 23:11 WBC (3.8-10.6) k/uL RBC (3.80-5.40) m/uL Hgb (11.4-16.0) gm/dL Hct (34.0-46.0) % MCV (80.0-100.0) fL MCH (25.0-35.0) pg MCHC (31.0-37.0) g/dL RDW (11.5-15.5) % Plt Count (150-450) k/uL MPV Neutrophils % (Manual) % Band Neuts % (Manual) % Lymphocytes % (Manual) % Monocytes % (Manual) % Eosinophils % (Manual) % Metamyelocytes % % Myelocytes % % Neutrophils # (Manual) (1.3-7.7) k/uL Lymphocytes # (Manual) (1.0-4.8) k/uL Monocytes # (Manual) (0-1.0) k/uL Eosinophils # (Manual) (0-0.7) k/uL Metamyelocytes # (Man) (0) k/uL Myelocytes # (Manual) (0) k/uL Nucleated RBCs (0-0) /100 WBC Manual Slide Review Anisocytosis Macrocytosis Crenated Cell PT (10.0-12.5) sec INR (<1.2) APTT (22.0-30.0) sec Sodium (137-145) mmol/L Potassium (3.5-5.1) mmol/L Chloride (98-107) mmol/L Carbon Dioxide (22-30) mmol/L Anion Gap mmol/L BUN (7-17) mg/dL Creatinine (0.52-1.04) mg/dL Est GFR (CKD-EPI)AfAm (>60 ml/min/1.73 sqM) Est GFR (CKD-EPI)NonAf (>60 ml/min/1.73 sqM) Glucose (74-99) mg/dL POC Glucose (mg/dL) (70-110) mg/dL POC Glu Tank Systems Maintainer ID Lactic Ac Sepsis Rflx Plasma Lactic Acid Shane 3.4 H* (0.7-2.0) mmol/L Calcium (8.4-10.2) mg/dL Magnesium (1.6-2.3) mg/dL Total Bilirubin (0.2-1.3) mg/dL AST (14-36) U/L ALT (4-34) U/L Alkaline Phosphatase (38-126) U/L Troponin I 0.069 H* (0.000-0.034) ng/mL Total Protein (6.3-8.2) g/dL Albumin (3.5-5.0) g/dL Urine Color Urine Appearance (Clear) Urine pH (5.0-8.0) Ur Specific [place] (1.001-1.035) Urine Protein (Negative) Urine Glucose (UA) (Negative) Urine Ketones (Negative) Urine Blood (Negative) Urine Nitrite (Negative) Urine Bilirubin (Negative) Urine Urobilinogen (<2.0) mg/dL Ur Leukocyte Esterase (Negative) Stool Occult Blood (Negative) Blood Type O Positive Blood Type Recheck O Pos Bld Type Recheck Status No Antibody Screen NEGATIVE Crossmatch See Detail Spec Expiration Date 09/23/2023 - 231009/21/23 09/21/23 09/21/23 Range/Units 00:00 00:05 00:05 WBC (3.8-10.6) k/uL RBC (3.80-5.40) m/uL Hgb (11.4-16.0) gm/dL Hct (34.0-46.0) % MCV (80.0-100.0) fL MCH (25.0-35.0) pg MCHC (31.0-37.0) g/dL RDW (11.5-15.5) % Plt Count (150-450) k/uL MPV Neutrophils % (Manual) % Band Neuts % (Manual) % Lymphocytes % (Manual) % Monocytes % (Manual) % Eosinophils % (Manual) % Metamyelocytes % % Myelocytes % % Neutrophils # (Manual) (1.3-7.7) k/uL Lymphocytes # (Manual) (1.0-4.8) k/uL Monocytes # (Manual) (0-1.0) k/uL Eosinophils # (Manual) (0-0.7) k/uL Metamyelocytes # (Man) (0) k/uL Myelocytes # (Manual) (0) k/uL Nucleated RBCs (0-0) /100 WBC Manual Slide Review Anisocytosis Macrocytosis Crenated Cell PT (10.0-12.5) sec INR (<1.2) APTT (22.0-30.0) sec Sodium (137-145) mmol/L Potassium (3.5-5.1) mmol/L Chloride (98-107) mmol/L Carbon Dioxide (22-30) mmol/L Anion Gap mmol/L BUN (7-17) mg/dL Creatinine (0.52-1.04) mg/dL Est GFR (CKD-EPI)AfAm (>60 ml/min/1.73 sqM) Est GFR (CKD-EPI)NonAf (>60 ml/min/1.73 sqM) Glucose (74-99) mg/dL POC Glucose (mg/dL) (70-110) mg/dL POC Glu Tank Systems Maintainer ID Lactic Ac Sepsis Rflx Y Plasma Lactic Acid Shane (0.7-2.0) mmol/L Calcium (8.4-10.2) mg/dL Magnesium (1.6-2.3) mg/dL Total Bilirubin (0.2-1.3) mg/dL AST (14-36) U/L ALT (4-34) U/L Alkaline Phosphatase (38-126) U/L Troponin I (0.000-0.034) ng/mL Total Protein (6.3-8.2) g/dL Albumin (3.5-5.0) g/dL Urine Color Light Yellow Urine Appearance Clear (Clear) Urine pH 5.0 (5.0-8.0) Ur Specific [place] 1.011 (1.001-1.035) Urine Protein Negative (Negative) Urine Glucose (UA) Negative (Negative) Urine Ketones Negative (Negative) Urine Blood Negative (Negative) Urine Nitrite Negative (Negative) Urine Bilirubin Negative (Negative) Urine Urobilinogen <2.0 (<2.0) mg/dL Ur Leukocyte Esterase Negative (Negative) Stool Occult Blood Positive H (Negative) Blood Type Blood Type Recheck Bld Type Recheck Status Antibody Screen Crossmatch Spec Expiration Date 09/21/23 Range/Units 01:46 WBC (3.8-10.6) k/uL RBC (3.80-5.40) m/uL Hgb (11.4-16.0) gm/dL Hct (34.0-46.0) % MCV (80.0-100.0) fL MCH (25.0-35.0) pg MCHC (31.0-37.0) g/dL RDW (11.5-15.5) % Plt Count (150-450) k/uL MPV Neutrophils % (Manual) % Band Neuts % (Manual) % Lymphocytes % (Manual) % Monocytes % (Manual) % Eosinophils % (Manual) % Metamyelocytes % % Myelocytes % % Neutrophils # (Manual) (1.3-7.7) k/uL Lymphocytes # (Manual) (1.0-4.8) k/uL Monocytes # (Manual) (0-1.0) k/uL Eosinophils # (Manual) (0-0.7) k/uL Metamyelocytes # (Man) (0) k/uL Myelocytes # (Manual) (0) k/uL Nucleated RBCs (0-0) /100 WBC Manual Slide Review Anisocytosis Macrocytosis Crenated Cell PT (10.0-12.5) sec INR (<1.2) APTT (22.0-30.0) sec Sodium (137-145) mmol/L Potassium (3.5-5.1) mmol/L Chloride (98-107) mmol/L Carbon Dioxide (22-30) mmol/L Anion Gap mmol/L BUN (7-17) mg/dL Creatinine (0.52-1.04) mg/dL Est GFR (CKD-EPI)AfAm (>60 ml/min/1.73 sqM) Est GFR (CKD-EPI)NonAf (>60 ml/min/1.73 sqM) Glucose (74-99) mg/dL POC Glucose (mg/dL) 134 H (70-110) mg/dL POC Glu Tank Systems Maintainer ID Polly Ricki Lactic Ac Sepsis Rflx Plasma Lactic Acid Shane (0.7-2.0) mmol/L Calcium (8.4-10.2) mg/dL Magnesium (1.6-2.3) mg/dL Total Bilirubin (0.2-1.3) mg/dL AST (14-36) U/L ALT (4-34) U/L Alkaline Phosphatase (38-126) U/L Troponin I (0.000-0.034) ng/mL Total Protein (6.3-8.2) g/dL Albumin (3.5-5.0) g/dL Urine Color Urine Appearance (Clear) Urine pH (5.0-8.0) Ur Specific [place] (1.001-1.035) Urine Protein (Negative) Urine Glucose (UA) (Negative) Urine Ketones (Negative) Urine Blood (Negative) Urine Nitrite (Negative) Urine Bilirubin (Negative) Urine Urobilinogen (<2.0) mg/dL Ur Leukocyte Esterase (Negative) Stool Occult Blood (Negative) Blood Type Blood Type Recheck Bld Type Recheck Status Antibody Screen Crossmatch Spec Expiration Date Disposition Clinical Impression: Elevated troponin, Anemia, GI bleeding Disposition: OTHER INSTITUTION NOT DEFINED Condition: Serious Is patient prescribed a controlled substance at d/c from ED?: No Referrals: Ricki Hood DO [Primary Care Provider] - 1-2 days - Out of Hospital Transfer - Req. Specs Out of Hospital Transfer - Requested Specifics: Other Emergency Center
[2023-09-21 01:48] LABS: Glucose,Whole Blood 134 mg/dL (70-110)
[2023-09-21] MEDS: FAMOTIDINE 20 MG/2 ML VIAL IV STA (01:55)
[2023-09-21 02:42] LABS: Band Neutrophils % 7 %; Eosinophils # (M) 0.33 k/uL (0-0.7); Lymphocytes # (M) 0.72 k/uL (1.0-4.8); Metamyelocytes # (M) 0.17 k/uL (0); Metamyelocytes % 3 %; Monocytes # (M) 0.11 k/uL (0-1.0); Myelocytes # (M) 0.06 k/uL (0); Myelocytes % 1 %; Neutrophils % (M) 71 %; Nucleated Red Blood Cells 0 /100 WBC (0-0); Total Cells Counted 200
[2023-09-21 02:44] LABS: Crenated RBC Present
[2023-09-21 03:23] VITALS: BP 80/46; PULSE 78
== END 2023-09-21 03:21 | disposition other institution (70) ==
LOC: EC 22:33
DX: R79.89 Other specified abnormal findings of blood chemistry (principal); D64.9 Anemia, unspecified; K92.2 Gastrointestinal hemorrhage, unspecified; I63.9 Cerebral infarction, unspecified; Z88.0 Allergy status to penicillin; Z88.8 Allergy status to other drugs, medicaments and biological substances
CPT/HCPCS: 36415 ×2; 93005; 86900; 86901; 80053; 83605; 83735; 84484; 85025; 85610; 85730; 86850; 86920; 82272; 81003; 87040; 87077; 87186; 71045; 99291; 36430; 96365; 96367; 96375 ×2; P9016; J0696; J3490

== ENCOUNTER 2023-10-19 09:00 | Inpatient (IN) | payer MEDICARE ==
[2023-10-19] MEDS: SODIUM CHLORIDE 0.9% 500 ML 500 ML IV STA ×2 (09:41→11:09)
--- NOTE | 2023-10-19 09:41 | ED ---
General Adult HPI - General Chief complaint: Recheck/Abnormal Lab/Rx Stated complaint: Abn labs Time Seen by Provider: 10/19/23 09:10 Source: patient, EMS, RN notes reviewed, old records reviewed Mode of arrival: EMS Limitations: no limitations - History of Present Illness Initial comments: This is an 78-year-old female who presents to the emergency department from [facility]. Patient is here for rehabilitation. Patient has a history of anemia but they sent her in today because her hemoglobin was 6.5 according to EMS. Patient also had dark stools according to the residential. Patient denies any abdominal pain patient states she has been having diarrhea. Patient denies any chest pain difficulty breathing shortness of breath. Patient denies any fatigue or weakness. Patient has any recent fever chills or cough. - Related Data Home Medications Medication Instructions Recorded Confirmed Albuterol Sulfate [Ventolin HFA] 2 puff INHALATION RT-Q4H PRN 08/03/23 10/19/23 Famotidine [Pepcid] 20 mg PO BID 08/03/23 10/19/23 Acetaminophen Tab [Tylenol] 650 mg PO Q6HR PRN 10/19/23 10/19/23 Apixaban [Eliquis] 2.5 mg PO BID 10/19/23 10/19/23 Collagenase [Santyl Ointment] 1 applic TOPICAL DAILY PRN 10/19/23 10/19/23 Collagenase [Santyl Ointment] 1 applic TOPICAL HS 10/19/23 10/19/23 Docusate [Colace] 100 mg PO BID 10/19/23 10/19/23 Metoprolol Tartrate [Lopressor] 50 mg PO Q8H 10/19/23 10/19/23 Midodrine [ProAmatine] 5 mg PO TID 10/19/23 10/19/23 Potassium Chloride ER [K-Dur 10] 10 meq PO DAILY 10/19/23 10/19/23 Torsemide [Demadex] 10 mg PO DAILY 10/19/23 10/19/23 Torsemide [Demadex] 20 mg PO DAILY 10/19/23 10/19/23 Allergies Allergy/AdvReac Type Severity Reaction Status Date / Time omeprazole [From Prilosec] Allergy Unknown Rash/Hives, Verified 10/19/23 09:55 TONGUE SWELLLING omeprazole magnesium Allergy Unknown Rash/Hives, Verified 10/19/23 09:55 [[address] [facility]] TONGUE SWELLLING Penicillins Allergy Unknown Rash/Hives/ Verified 10/19/23 09:55 Itching amlodipine Allergy fide pedal Verified 10/19/23 09:55 edema, loss voice carvedilol Allergy shortness Verified 10/19/23 09:55 of breath lisinopril Allergy Unknown Verified 10/19/23 09:55 Review of Systems ROS Statement: Those systems with pertinent positive or pertinent negative responses have been documented in the HPI. ROS Other: All systems not noted in ROS Statement are negative. 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 History of Any Multi-Drug Resistant Organisms: None Reported Past Surgical History: Heart Catheterization Additional Past Surgical History / Comment(s): EYE SURGERY DUE TO INJURY, EGD, COLONOSCOPY, BONE MARROW BIOPSY, cataracts, muscle biopsy Past Anesthesia/Blood Transfusion Reactions: No Reported Reaction Past Psychological History: No Psychological Hx Reported Smoking Status: Never smoker Past Alcohol Use History: Occasional Past Drug Use History: None Reported - Past Family History Sister(s) Family Medical History: Cancer Additional Family Medical History / Comment(s): LEUKEMIA- at age 42 Brother(s) Family Medical History: Cancer Additional Family Medical History / Comment(s): with unknown type CA at age 60s General Exam - General Exam Comments Initial Comments: GENERAL: Patient is well-developed and well-nourished. Patient is nontoxic and well- hydrated and is in no acute distress. ENT: Neck is soft and supple. No significant lymphadenopathy is noted. Oropharynx is clear. Moist mucous membranes. Neck has full range of motion without eliciting any pain. EYES: The sclera were anicteric and conjunctiva are pale. Extraocular movements were intact and pupils were equal round and reactive to light. Eyelids were unremarkable. PULMONARY: Unlabored respirations. Good breath sounds bilaterally. No audible rales rhonchi or wheezing was noted. CARDIOVASCULAR: Patient has an irregular heartbeat ABDOMEN: Soft and nontender with normal bowel sounds. SKIN: Skin is clear with no lesions or rashes and otherwise unremarkable. NEUROLOGIC: Patient is alert and oriented x3. Cranial nerves II through XII are grossly intact. Motor and sensory are also intact. Normal speech, volume and content. Symmetrical smile. MUSCULOSKELETAL: Normal extremities with adequate strength and full range of motion. LYMPHATICS: No significant lymphadenopathy is noted PSYCHIATRIC: Normal psychiatric evaluation. Limitations: no limitations Course Vital Signs 10/19/23 10/19/23 10/19/23 09:05 11:16 11:49 Temperature 97.8 F 97.3 F L Pulse Rate 111 H 110 H 105 H Respiratory 19 19 19 Rate Blood Pressure 87/64 95/52 91/56 O2 Sat by Pulse 100 100 100 Oximetry 10/19/23 10/19/23 11:59 12:19 Temperature 97.4 F L 97.4 F L Pulse Rate 114 H 86 Respiratory 19 18 Rate Blood Pressure 100/48 86/61 O2 Sat by Pulse 100 Oximetry Medical Decision Making - Medical Decision Making EKG is interpreted by myself but EKG shows atrial fibrillation at 98 bpm QRS is 181 QT interval 4 4 QTc is 460. Patient's EKG shows a left bundle branch block. Was pt. sent in by a medical professional or institution (, PA, SACK MAKER, urgent care, hospital, or residential...) When possible be specific @ -Patient was sent in by the residential Did you speak to anyone other than the patient for history (EMS, parent, family, police, friend...)? What history was obtained from this source @ -Patient is a poor historian so gave most of the history Did you review nursing and triage notes (agree or disagree)? Why? @ -I reviewed and agree with nursing and triage notes Were old charts reviewed (outside hosp., previous admission, EMS record, old EKG, old radiological studies, urgent care reports/EKG's, residential records)? Report findings @ -I reviewed the chart they came with the patient patient's med list as well as recent lab work showing hemoglobin 6.5 Differential Diagnosis (chest pain, altered mental status, abdominal pain women, abdominal pain men, vaginal bleeding, weakness, fever, dyspnea, syncope, headache, dizziness, GI bleed, back pain, seizure, CVA, palpatations, mental health, musculoskeletal)? @ -Differential GI Bleed: Esophageal varices, aortoenteric fistula, Pilar-Franks, gastritis, peptic ulcer disease, diverticulosis, inflammatory bowel disease, hemorrhoids, fissure, colitis, malignancy, Meckels diverticulum, this is not meant to be an all- inclusive list. EKG interpreted by me (3pts min.). @ -As above X-rays interpreted by me (1pt min.). @ -None done CT interpreted by me (1pt min.). @ -None done U/S interpreted by me (1pt. min.). @ -None done What testing was considered but not performed or refused? (CT, X-rays, U/S, labs)? Why? @ -None What meds were considered but not given or refused? Why? @ -None Did you discuss the management of the patient with other professionals (professionals i.e. , PA, SACK MAKER, lab, RT, psych nurse, community mental health social worker, edge stitcher, teacher, medical corps officer, catalytic case operator)? Give summary @ -I spoke with Dr. Gayle and he agreed to admit the patient Was smoking cessation discussed for >3mins.? @ -None Was critical care preformed (if so, how long)? @ -No Were there social determinants of health that impacted care today? How? (Homelessness, low income, unemployed, alcoholism, drug addiction, transportation, low edu. Level, literacy, decrease access to med. care, senior living, rehab)? @ -No Was there de-escalation of care discussed even if they declined (Discuss DNR or withdrawal of care, Hospice)? DNR status @ -No What co-morbidities impacted this encounter? (DM, HTN, Smoking, COPD, CAD, Cancer, CVA, ARF, Chemo, Hep., AIDS, mental health diagnosis, sleep apnea, morbid obesity)? @ -None Was patient admitted / discharged? Hospital course, mention meds given and route, prescriptions, significant lab abnormalities, going to OR and other pertinent info. @ -Patient's hemoglobin 6.9 I ordered 1 unit of packed red blood cells. Patient also had a low potassium I gave the patient 2 mg of magnesium sulfate. I spoke with Dr. Gayle and he agreed admit the patient and the patient wrote admitting orders family did not want to be transferred to [facility]. Patient wanted to be admitted here Undiagnosed new problem with uncertain prognosis? @ -No Drug Therapy requiring intensive monitoring for toxicity (Heparin, Nitro, Insulin, Cardizem)? @ -No Were any procedures done? @ -No Diagnosis/symptom? @ -Anemia Acute, or Chronic, or Acute on Chronic? @ -Acute Uncomplicated (without systemic symptoms) or Complicated (systemic symptoms)? @ -Comp Side effects of treatment? @ -No Exacerbation, Progression, or Severe Exacerbation? @ -No Poses a threat to life or bodily function? How? (Chest pain, USA, DC, pneumonia, PE, COPD, DKA, ARF, appy, cholecystitis, CVA, Diverticulitis, Homicidal, Cortes icidal, threat to staff... and all critical care pts) @ -Yes patient become hypoxic and have endorgan dysfunction Diagnosis/symptom? @ -GI bleed Acute, or Chronic, or Acute on Chronic? @ -Acute Uncomplicated (without systemic symptoms) or Complicated (systemic symptoms)? @ -Complicated Side effects of treatment? @ -None Exacerbation, Progression, or Severe Exacerbation] @ -No Poses a threat to life or bodily function? @ -Yes this can lead to anemia hypoxia and endorgan dysfunction Diagnosis/symptom? @ -Hypomagnesemia Acute, or Chronic, or Acute on Chronic? @ -Acute Uncomplicated (without systemic symptoms) or Complicated (systemic symptoms)? @ -Complicated Side effects of treatment? @ -None Exacerbation, Progression, or Severe Exacerbation] @ -No Poses a threat to life or bodily function? @ -No - Lab Data Result diagrams: 10/19/23 09:30 10/19/23 09:30 Lab Results 10/19/23 10/19/23 10/19/23 Range/Units 09:30 09:30 09:30 WBC 11.3 H (3.8-10.6) k/uL RBC 2.18 L (3.80-5.40) m/uL Hgb 6.9 L* (11.4-16.0) gm/dL Hct 21.6 L (34.0-46.0) % MCV 99.2 D (80.0-100.0) fL MCH 31.9 (25.0-35.0) pg MCHC 32.2 (31.0-37.0) g/dL RDW 18.5 H (11.5-15.5) % Plt Count 72 L (150-450) k/uL MPV 9.9 Neutrophils % (Manual) 53 % Band Neuts % (Manual) 1 % Lymphocytes % (Manual) 14 % Monocytes % (Manual) 8 % Eosinophils % (Manual) 24 % Basophils % (Manual) 1 % Neutrophils # (Manual) 6.10 (1.3-7.7) k/uL Lymphocytes # (Manual) 1.58 (1.0-4.8) k/uL Monocytes # (Manual) 0.90 (0-1.0) k/uL Eosinophils # (Manual) 2.71 H (0-0.7) k/uL Basophils # (Manual) 0.11 (0-0.2) k/uL Nucleated RBCs 0 (0-0) /100 WBC Manual Slide Review Performed Poikilocytosis (manual Present Anisocytosis Slight Macrocytosis Slight PT 20.4 H (10.0-12.5) sec INR 2.0 H (<1.2) APTT 45.8 H (22.0-30.0) sec Sodium 136 L (137-145) mmol/L Potassium 4.8 (3.5-5.1) mmol/L Chloride 111 H (98-107) mmol/L Carbon Dioxide 16 L (22-30) mmol/L Anion Gap 9 mmol/L BUN 124 H* (7-17) mg/dL Creatinine 2.84 H (0.52-1.04) mg/dL Est GFR (CKD-EPI)AfAm 17 (>60 ml/min/1.73 sqM) Est GFR (CKD-EPI)NonAf 15 (>60 ml/min/1.73 sqM) Glucose 69 L (74-99) mg/dL POC Glucose (mg/dL) (70-110) mg/dL POC Glu Fur Examiner ID Calcium 8.1 L (8.4-10.2) mg/dL Magnesium 1.2 L (1.6-2.3) mg/dL Total Bilirubin 3.0 H (0.2-1.3) mg/dL AST 65 H (14-36) U/L ALT 27 (4-34) U/L Alkaline Phosphatase 149 H (38-126) U/L Troponin I (0.000-0.034) ng/mL Total Protein 4.9 L (6.3-8.2) g/dL Albumin 1.7 L (3.5-5.0) g/dL Stool Occult Blood (Negative) Blood Type Blood Type Recheck Bld Type Recheck Status Antibody Screen Crossmatch Spec Expiration Date 10/19/23 10/19/23 10/19/23 Range/Units 09:30 09:30 09:37 WBC (3.8-10.6) k/uL RBC (3.80-5.40) m/uL Hgb (11.4-16.0) gm/dL Hct (34.0-46.0) % MCV (80.0-100.0) fL MCH (25.0-35.0) pg MCHC (31.0-37.0) g/dL RDW (11.5-15.5) % Plt Count (150-450) k/uL MPV Neutrophils % (Manual) % Band Neuts % (Manual) % Lymphocytes % (Manual) % Monocytes % (Manual) % Eosinophils % (Manual) % Basophils % (Manual) % Neutrophils # (Manual) (1.3-7.7) k/uL Lymphocytes # (Manual) (1.0-4.8) k/uL Monocytes # (Manual) (0-1.0) k/uL Eosinophils # (Manual) (0-0.7) k/uL Basophils # (Manual) (0-0.2) k/uL Nucleated RBCs (0-0) /100 WBC Manual Slide Review Poikilocytosis (manual Anisocytosis Macrocytosis PT (10.0-12.5) sec INR (<1.2) APTT (22.0-30.0) sec Sodium (137-145) mmol/L Potassium (3.5-5.1) mmol/L Chloride (98-107) mmol/L Carbon Dioxide (22-30) mmol/L Anion Gap mmol/L BUN (7-17) mg/dL Creatinine (0.52-1.04) mg/dL Est GFR (CKD-EPI)AfAm (>60 ml/min/1.73 sqM) Est GFR (CKD-EPI)NonAf (>60 ml/min/1.73 sqM) Glucose (74-99) mg/dL POC Glucose (mg/dL) (70-110) mg/dL POC Glu Fur Examiner ID Calcium (8.4-10.2) mg/dL Magnesium (1.6-2.3) mg/dL Total Bilirubin (0.2-1.3) mg/dL AST (14-36) U/L ALT (4-34) U/L Alkaline Phosphatase (38-126) U/L Troponin I 0.075 H* (0.000-0.034) ng/mL Total Protein (6.3-8.2) g/dL Albumin (3.5-5.0) g/dL Stool Occult Blood Positive H (Negative) Blood Type O Positive Blood Type Recheck O Pos Bld Type Recheck Status No Antibody Screen NEGATIVE Crossmatch See Detail Spec Expiration Date 10/22/2023 - 232910/19/23 Range/Units 10:53 WBC (3.8-10.6) k/uL RBC (3.80-5.40) m/uL Hgb (11.4-16.0) gm/dL Hct (34.0-46.0) % MCV (80.0-100.0) fL MCH (25.0-35.0) pg MCHC (31.0-37.0) g/dL RDW (11.5-15.5) % Plt Count (150-450) k/uL MPV Neutrophils % (Manual) % Band Neuts % (Manual) % Lymphocytes % (Manual) % Monocytes % (Manual) % Eosinophils % (Manual) % Basophils % (Manual) % Neutrophils # (Manual) (1.3-7.7) k/uL Lymphocytes # (Manual) (1.0-4.8) k/uL Monocytes # (Manual) (0-1.0) k/uL Eosinophils # (Manual) (0-0.7) k/uL Basophils # (Manual) (0-0.2) k/uL Nucleated RBCs (0-0) /100 WBC Manual Slide Review Poikilocytosis (manual Anisocytosis Macrocytosis PT (10.0-12.5) sec INR (<1.2) APTT (22.0-30.0) sec Sodium (137-145) mmol/L Potassium (3.5-5.1) mmol/L Chloride (98-107) mmol/L Carbon Dioxide (22-30) mmol/L Anion Gap mmol/L BUN (7-17) mg/dL Creatinine (0.52-1.04) mg/dL Est GFR (CKD-EPI)AfAm (>60 ml/min/1.73 sqM) Est GFR (CKD-EPI)NonAf (>60 ml/min/1.73 sqM) Glucose (74-99) mg/dL POC Glucose (mg/dL) 87 (70-110) mg/dL POC Glu Fur Examiner ID Carlos Black Calcium (8.4-10.2) mg/dL Magnesium (1.6-2.3) mg/dL Total Bilirubin (0.2-1.3) mg/dL AST (14-36) U/L ALT (4-34) U/L Alkaline Phosphatase (38-126) U/L Troponin I (0.000-0.034) ng/mL Total Protein (6.3-8.2) g/dL Albumin (3.5-5.0) g/dL Stool Occult Blood (Negative) Blood Type Blood Type Recheck Bld Type Recheck Status Antibody Screen Crossmatch Spec Expiration Date Critical Care Time Critical Care Time: Yes Total Critical Care Time: 35 Disposition Clinical Impression: Anemia, GI bleed, Hypomagnesemia, Coagulopathy, Thrombocytopenia Disposition: ADMITTED IP TO THIS [facility] Referrals: Ricki Hood DO [Primary Care Provider] - 1-2 days Time of Disposition: 12:42
[2023-10-19 09:57] LABS: Anisocytosis Slight; HCT 21.6 % (34.0-46.0); MCH 31.9 pg (25.0-35.0); MCHC 32.2 g/dL (31.0-37.0); Macrocytosis Slight; Mean Platelet Volume 9.9; RBC 2.18 m/uL (3.80-5.40); RDW 18.5 % (11.5-15.5); WBC 11.3 k/uL (3.8-10.6)
[2023-10-19 10:01] LABS: HGB 6.9 gm/dL (11.4-16.0); MCV 99.2 fL (80.0-100.0); Partial Thromboplastin Time 45.8 sec (22.0-30.0); Prothrombin Time 20.4 sec (10.0-12.5)
[2023-10-19 10:05] LABS: ALT 27 U/L (4-34); AST 65 U/L (14-36); African American GFR (CKD) 17 (>60 ml/min/1.73 sqM); Albumin 1.7 g/dL (3.5-5.0); Alkaline Phosphatase 149 U/L (38-126); Anion Gap 9 mmol/L; Calcium 8.1 mg/dL (8.4-10.2); Carbon Dioxide 16 mmol/L (22-30); Chloride 111 mmol/L (98-107); Glucose 69 mg/dL (74-99); Magnesium 1.2 mg/dL (1.6-2.3); Non-African American GFR(CKD) 15 (>60 ml/min/1.73 sqM); Potassium 4.8 mmol/L (3.5-5.1); Sodium 136 mmol/L (137-145); Total Protein 4.9 g/dL (6.3-8.2)
[2023-10-19 10:23] LABS: Platelet Count 72 k/uL (150-450)
[2023-10-19 10:27] LABS: Band Neutrophils % 1 %; Basophils # (M) 0.11 k/uL (0-0.2); Eosinophils # (M) 2.71 k/uL (0-0.7); Lymphocytes # (M) 1.58 k/uL (1.0-4.8); Neutrophils % (M) 53 %; Nucleated Red Blood Cells 0 /100 WBC (0-0); Total Cells Counted 200
[2023-10-19 10:28] LABS: Poikilocytosis (M) Present
[2023-10-19 10:30] LABS: Blood Urea Nitrogen 124 mg/dL (7-17)
[2023-10-19 10:55] LABS: Glucose,Whole Blood 87 mg/dL (70-110)
[2023-10-19] MEDS: MAGNESIUM SULFATE-D5W PMX 1 GM in DEXTROSE/WATER 1 100ML.BAG IVPB SCH (11:06)
[2023-10-19] MEDS ORDERED: ACETAMINOPHEN TAB 325 MG TAB PO PRN (11:55)
[2023-10-19] MEDS ORDERED: ALBUTEROL NEBULIZED 2.5 MG/3 ML INHALATION PRN (11:55)
--- NOTE | 2023-10-19 12:11 | P.HPIM ---
History of Present Illness Patient pleasant 78-year-old female was sent in because of low hemoglobin of 6.5 at [facility]. Patient does have multiple dark stools. Patient was recently discharged about a week ago from another hospital after she was treated for septic shock and her gallbladder was removed patient is also on metronidazole and vancomycin. Patient is having diarrhea. C. difficile is being obtained. Patient denies any abdominal pain nausea vomiting. Patient recent hemoglobin was around 8. Patient also has acute renal failure with serum creatinine going up to 2.5 last few few months serum creatinine is around 2 bef ore that it was within normal limits patient also has history of heart failure with preserved ejection fraction for which patient is on diuretic. Patient has low blood pressures here apparently may have had a fall is also lightheaded at this time. Patient does have bilateral lower extremity edema is on 3 L of oxygen saturating at 100% which will cut down. Patient denies any orthopnea paroxysmal nocturnal dyspnea at this time I do not have any chest x-ray which will be obtained along with BNP. Patient has chronic atrial fibrillation presently rate controlled and is on Eliquis 2.5 mg and INR is around 2. Patient denies any fatigue. Patient denies any abdominal pain. REVIEW OF SYSTEMS: CONSTITUTIONAL: No fever, no malaise, no fatigue. HEENT: No recent visual problems or hearing problems. Denied any sore throat. CARDIOVASCULAR: No chest pain, orthopnea, PND, no palpitations, no syncope. PULMONARY: No shortness of breath, no cough, no hemoptysis. GASTROINTESTINAL: No diarrhea, no nausea, no vomiting, no abdominal pain. NEUROLOGICAL: No headaches, no weakness, no numbness. HEMATOLOGICAL: Denies any bleeding or petechiae. GENITOURINARY: Denies any burning micturition, frequency, or urgency. MUSCULOSKELETAL/RHEUMATOLOGICAL: Denies any joint pain, swelling, or any muscle pain. ENDOCRINE: Denies any polyuria or polydipsia. The rest of the 14-point review of systems is negative. PHYSICAL EXAMINATION: GENERAL: The patient is alert and oriented x3, not in any acute distress. Obese HEENT: Pupils are round and equally reacting to light. EOMI. No scleral icterus. Does have conjunctival pallor. Normocephalic, atraumatic. No pharyngeal erythema. No thyromegaly. CARDIOVASCULAR: S1 and S2 present. No murmurs, rubs, or gallops. PULMONARY: Chest is clear to auscultation, no wheezing or crackles. ABDOMEN: Soft, nontender, nondistended, normoactive bowel sounds. No palpable organomegaly. MUSCULOSKELETAL: No joint swelling or deformity. EXTREMITIES: No cyanosis, clubbing, bilateral lower extremity edema NEUROLOGICAL: Gross neurological examination did not reveal any focal deficits. SKIN: No rashes. Assessment and plan -Acute upper GI bleed with dark stools patient will be started on Protonix twice a day, general surgery will be consulted for upper GI endoscopy. Patient is receiving 1 unit of PRBC transfusion will order 1 more unit of PRBC. Hold off on anticoagulation if patient has significant further GI bleeding patient will need fresh frozen plasma at this time INR is elevated probably because of vitamin K deficiency along with Eliquis. -Chronic atrial fibrillation patient is presently rate controlled patient was resumed on metoprolol if her blood pressure can tolerate, hold off anticoagulation for above-mentioned reasons -Congestive heart failure chronic diastolic dysfunction, may have mild acute exacerbation will avoid IV fluids but for now because of low blood pressures and dizziness we will hold off on Demadex. Patient is on midodrine as well if needed patient will be started back on midodrine for now we will hold midodrine as well because of concerns of worsening heart failure -Diarrhea: Patient is on vancomycin and metronidazole not for unknown reasons may be due to C. difficile, will hold all those medications for now will order C. difficile testing will contact intermediate to figure out why she is on these antibiotics. -Possible acute renal failure probably secondary to diuretics which are being held at this time hypotension may have contributed to that as well. Elevated troponins probably secondary to anemia and acute renal failure, cardiology was consulted in ED for recommendation regarding anticoagulation will repeat 2 more troponins patient does not have any chest pain at this time -Hypomagnesemia magnesium will be replaced. 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 History of Any Multi-Drug Resistant Organisms: None Reported Past Surgical History: Heart Catheterization Additional Past Surgical History / Comment(s): EYE SURGERY DUE TO INJURY, EGD, COLONOSCOPY, BONE MARROW BIOPSY, cataracts, muscle biopsy Past Anesthesia/Blood Transfusion Reactions: No Reported Reaction Past Psychological History: No Psychological Hx Reported Smoking Status: Never smoker Past Alcohol Use History: Occasional Past Drug Use History: None Reported - Past Family History Sister(s) Family Medical History: Cancer Additional Family Medical History / Comment(s): LEUKEMIA- at age 42 Brother(s) Family Medical History: Cancer Additional Family Medical History / Comment(s): with unknown type CA at age 60s Medications and Allergies Home Medications Medication Instructions Recorded Confirmed Type Albuterol Sulfate [Ventolin HFA] 2 puff INHALATION RT-Q4H PRN 08/03/23 10/19/23 History Famotidine [Pepcid] 20 mg PO BID 08/03/23 10/19/23 History Acetaminophen Tab [Tylenol] 650 mg PO Q6HR PRN 10/19/23 10/19/23 History Apixaban [Eliquis] 2.5 mg PO BID 10/19/23 10/19/23 History Collagenase [Santyl Ointment] 1 applic TOPICAL DAILY PRN 10/19/23 10/19/23 History Collagenase [Santyl Ointment] 1 applic TOPICAL HS 10/19/23 10/19/23 History Docusate [Colace] 100 mg PO BID 10/19/23 10/19/23 History Metoprolol Tartrate [Lopressor] 50 mg PO Q8H 10/19/23 10/19/23 History Midodrine [ProAmatine] 5 mg PO TID 10/19/23 10/19/23 History Potassium Chloride ER [K-Dur 10] 10 meq PO DAILY 10/19/23 10/19/23 History Torsemide [Demadex] 10 mg PO DAILY 10/19/23 10/19/23 History Torsemide [Demadex] 20 mg PO DAILY 10/19/23 10/19/23 History Allergies Allergy/AdvReac Type Severity Reaction Status Date / Time omeprazole [From Prilosec] Allergy Unknown Rash/Hives, Verified 10/19/23 09:55 TONGUE SWELLLING omeprazole magnesium Allergy Unknown Rash/Hives, Verified 06/01/24 09:55 [From Prilosec] TONGUE SWELLLING Penicillins Allergy Unknown Rash/Hives/ Verified 10/19/23 09:55 Itching amlodipine Allergy fide pedal Verified 10/19/23 09:55 edema, loss voice carvedilol Allergy shortness Verified 10/19/23 09:55 of breath lisinopril Allergy Unknown Verified 10/19/23 09:55 Physical Exam Vitals: Vital Signs Temp Pulse Resp BP Pulse Ox 10/19/23 11:59 97.4 F L 114 H 19 100/48 100 10/19/23 11:49 97.3 F L 105 H 19 91/56 100 10/19/23 11:16 110 H 19 95/52 100 10/19/23 09:05 97.8 F 111 H 19 87/64 100 Intake and Output 10/18/23 10/19/23 10/19/23 22:59 06:59 14:59 Intake Total 0 Balance 0 Intake: Blood Product 0 Unit 0 Other: Weight 79.379 kg Results CBC & Chem 7: 10/19/23 09:30 10/19/23 09:30 Labs: Abnormal Lab Results - Last 24 Hours (Table) 10/19/23 10/19/23 10/19/23 Range/Units 09:30 09:30 09:30 WBC 11.3 H (3.8-10.6) k/uL RBC 2.18 L (3.80-5.40) m/uL Hgb 6.9 L* (11.4-16.0) gm/dL Hct 21.6 L (34.0-46.0) % RDW 18.5 H (11.5-15.5) % Plt Count 72 L (150-450) k/uL Eosinophils # (Manual) 2.71 H (0-0.7) k/uL PT 20.4 H (10.0-12.5) sec INR 2.0 H (<1.2) APTT 45.8 H (22.0-30.0) sec Sodium 136 L (137-145) mmol/L Chloride 111 H (98-107) mmol/L Carbon Dioxide 16 L (22-30) mmol/L BUN 124 H* (7-17) mg/dL Creatinine 2.84 H (0.52-1.04) mg/dL Glucose 69 L (74-99) mg/dL Calcium 8.1 L (8.4-10.2) mg/dL Magnesium 1.2 L (1.6-2.3) mg/dL Total Bilirubin 3.0 H (0.2-1.3) mg/dL AST 65 H (14-36) U/L Alkaline Phosphatase 149 H (38-126) U/L Troponin I (0.000-0.034) ng/mL Total Protein 4.9 L (6.3-8.2) g/dL Albumin 1.7 L (3.5-5.0) g/dL Stool Occult Blood (Negative) Crossmatch 10/19/23 10/19/23 10/19/23 Range/Units 09:30 09:30 09:37 WBC (3.8-10.6) k/uL RBC (3.80-5.40) m/uL Hgb (11.4-16.0) gm/dL Hct (34.0-46.0) % RDW (11.5-15.5) % Plt Count (150-450) k/uL Eosinophils # (Manual) (0-0.7) k/uL PT (10.0-12.5) sec INR (<1.2) APTT (22.0-30.0) sec Sodium (137-145) mmol/L Chloride (98-107) mmol/L Carbon Dioxide (22-30) mmol/L BUN (7-17) mg/dL Creatinine (0.52-1.04) mg/dL Glucose (74-99) mg/dL Calcium (8.4-10.2) mg/dL Magnesium (1.6-2.3) mg/dL Total Bilirubin (0.2-1.3) mg/dL AST (14-36) U/L Alkaline Phosphatase (38-126) U/L Troponin I 0.075 H* (0.000-0.034) ng/mL Total Protein (6.3-8.2) g/dL Albumin (3.5-5.0) g/dL Stool Occult Blood Positive H (Negative) Crossmatch See Detail
[2023-10-19] MEDS: PANTOPRAZOLE 40 MG/10 ML VIAL IVP SCH (12:59)
--- NOTE | 2023-10-19 13:12 | XR ---
EXAMINATION TYPE: XR chest 1V DATE OF EXAM: 10/19/2023 COMPARISON: 09/20/2023 HISTORY: CHF TECHNIQUE: Single frontal view of the chest is obtained. FINDINGS: There is been interval development of a retrocardiac opacity obscuring the left hemidiaphragm and cos tophrenic angle. Heart size is normal for the technique. There is mild interstitial prominence but no definite pulmonary vascular congestion or interstitial e janeth. The osseous structures are intact IMPRESSION: Interval development of a retrocardiac opacity possibly pneumonia with pleural effusion. Short-term follow-up to resolution is recommended.
[2023-10-19] MEDS: METOPROLOL TARTRATE 50 MG TAB PO SCH (15:19)
[2023-10-19 19:29] LABS: Anisocytosis Moderate; HCT 30.2 % (34.0-46.0); MCH 30.3 pg (25.0-35.0); MCHC 33.4 g/dL (31.0-37.0); Macrocytosis Slight; Mean Platelet Volume 10.1; RBC 3.33 m/uL (3.80-5.40); RDW 21.2 % (11.5-15.5)
[2023-10-19 19:33] LABS: HGB 10.1 gm/dL (11.4-16.0); MCV 90.9 fL (80.0-100.0); Platelet Count 67 k/uL (150-450)
[2023-10-19 21:50] LABS: Anisocytosis (M) Present; Band Neutrophils % 1 %; Crenated RBC Present; Eosinophils # (M) 2.08 k/uL (0-0.7); Lymphocytes # (M) 3.51 k/uL (1.0-4.8); Monocytes # (M) 0.65 k/uL (0-1.0); Neutrophils % (M) 51 %; Nucleated Red Blood Cells 0 /100 WBC (0-0); Polychromasia Present; Rouleaux Present; Target Cells Present; Total Cells Counted 100
[2023-10-20 07:51] LABS: African American GFR (CKD) 17 (>60 ml/min/1.73 sqM); Anion Gap 9 mmol/L; Calcium 8.1 mg/dL (8.4-10.2); Carbon Dioxide 16 mmol/L (22-30); Chloride 112 mmol/L (98-107); Glucose 79 mg/dL (74-99); Non-African American GFR(CKD) 15 (>60 ml/min/1.73 sqM); Potassium 4.6 mmol/L (3.5-5.1); Sodium 137 mmol/L (137-145)
[2023-10-20 07:56] LABS: Blood Urea Nitrogen 114 mg/dL (7-17)
--- NOTE | 2023-10-20 12:37 | P.CRDCN ---
History of Present Illness Consult date: 10/20/23 Consult reason: atrial fibrillation History of present illness: The patient is an 78-year-old female who presented to the hospital with acute GI bleed. She had a similar admission within the last 2 weeks at [facility]. She is on anticoagulation for history of atrial fibrillation, low-dose Eliquis. On arrival hemoglobin was in the sixes and she was given 2 units of packed red blood cells. Cardiology was consulted for atrial fibrillation management. EKG shows rate controlled atrial tachycardia. She is awaiting GI specialty to undergo EGD. DIAGNOSTICS: EKG shows atrial tachycardia with left bundle branch block Chest x-ray shows retrocardiac opacity obscuring the left hemidiaphragm and costophrenic angle Lab data WBC 13.0, hemoglobin 10.1, hematocrit 30.2, platelet 67, sodium 137, potassium 4.6, BUN 114, creatinine 2.86, troponin 0.06, 0.06 REVIEW OF SYSTEMS: No fever or chills. No cough or expectoration. No diaphoresis. Patient denies headache, dizziness, blurred vision, double vision. Patient denies any stomach discomfort. No nausea, vomiting. No hematochezia. No hematemesis. Denies any black stools or blood in his stools. Denies dysuria or hematuria. No muscle weakness or numbness. No shortness of breath or chest discomfort. PHYSICAL EXAMINATION: This is a 78-year-old female in no apparent distress at the time of my examination. HEENT: Head is atraumatic, normocephalic. Pupils are equal, round. There is no jugular venous distention. No carotid bruit is heard. CHEST EXAMINATION: Lungs are diminished to auscultation in the left lower lobe. No chest wall tenderness is noted on palpation or with deep breathing. HEART EXAMINATION: Heart regular rate and rhythm. S1, S2 heard. No murmurs, gallops or rub. ABDOMEN: Soft, nontender. Bowel sounds are heard. No organomegaly noted. EXTREMITIES: 2+ peripheral pulses. +3 lower extremity pitting edema. Wounds noted on right lower extremity . no calf tenderness noted. NEUROLOGIC EXAMINATION: Patient is awake, alert and oriented x3. FINAL ASSESSMENT AND PLAN: Atrial tachycardia, rate controlled Acute GI bleed Blood loss anemia, status post 2 units PRBCs Elevated troponin, flat trend, secondary to cardiorenal syndrome History of congestive heart failure Acute on chronic kidney injury, worsened over the last 3 months PLAN: CT scan of the chest without contrast to evaluate left pleural effusion Left lower extremity compression pump and wound care for right lower extremity Do not resume midodrine as blood pressures improved with blood administration Further recommendations to be based upon clinical course I am dictating on behalf of Dr Ryan Crawley's history/physical and assessment/plan. 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 History of Any Multi-Drug Resistant Organisms: None Reported Past Surgical History: Cholecystectomy, Heart Catheterization Additional Past Surgical History / Comment(s): EYE SURGERY DUE TO INJURY, EGD, COLONOSCOPY, BONE MARROW BIOPSY, cataracts, muscle biopsy, Past Anesthesia/Blood Transfusion Reactions: No Reported Reaction Past Psychological History: No Psychological Hx Reported Smoking Status: Never smoker Past Alcohol Use History: Occasional Additional Past Alcohol Use History / Comment(s): "1 glass of wine per day most days but not all". Past Drug Use History: None Reported - Past Family History Sister(s) Family Medical History: Cancer Additional Family Medical History / Comment(s): LEUKEMIA- at age 42 Brother(s) Family Medical History: Cancer Additional Family Medical History / Comment(s): with unknown type CA at age 60s Medications and Allergies Home Medications Medication Instructions Recorded Confirmed Type Albuterol Sulfate [Ventolin HFA] 2 puff INHALATION RT-Q4H PRN 08/03/23 10/19/23 History Famotidine [Pepcid] 20 mg PO BID 08/03/23 10/19/23 History Acetaminophen Tab [Tylenol] 650 mg PO Q6HR PRN 10/19/23 10/19/23 History Apixaban [Eliquis] 2.5 mg PO BID 10/19/23 10/19/23 History Collagenase [Santyl Ointment] 1 applic TOPICAL DAILY PRN 10/19/23 10/19/23 History Collagenase [Santyl Ointment] 1 applic TOPICAL HS 10/19/23 10/19/23 History Docusate [Colace] 100 mg PO BID 10/19/23 10/19/23 History Metoprolol Tartrate [Lopressor] 50 mg PO Q8H 10/19/23 10/19/23 History Midodrine [ProAmatine] 5 mg PO TID 10/19/23 10/19/23 History Potassium Chloride ER [K-Dur 10] 10 meq PO DAILY 10/19/23 10/19/23 History Torsemide [Demadex] 10 mg PO DAILY 10/19/23 10/19/23 History Torsemide [Demadex] 20 mg PO DAILY 10/19/23 10/19/23 History Allergies Allergy/AdvReac Type Severity Reaction Status Date / Time omeprazole [From Prilosec] Allergy Unknown Rash/Hives, Verified 10/19/23 09:55 TONGUE SWELLLING omeprazole magnesium Allergy Unknown Rash/Hives, Verified 10/19/23 09:55 [From Prilosec] TONGUE SWELLLING Penicillins Allergy Unknown Rash/Hives/ Verified 10/19/23 09:55 Itching amlodipine Allergy fide pedal Verified 10/19/23 09:55 edema, loss voice carvedilol Allergy shortness Verified 10/19/23 09:55 of breath lisinopril Allergy Unknown Verified 10/19/23 09:55 Physical Exam Vitals: Vital Signs Temp Pulse Pulse Resp BP BP Pulse Ox 10/20/23 11:42 96.8 F L 70 16 98/58 98 10/20/23 07:36 62 16 111/53 96 10/20/23 04:00 60 16 106/67 98 10/20/23 00:00 73 16 108/72 91 L 10/19/23 20:55 98.1 F 65 16 117/70 98 10/19/23 20:12 106 H 18 112/56 98 10/19/23 17:33 91 18 110/72 100 10/19/23 16:50 97.6 F 86 17 102/57 95 10/19/23 16:47 97.6 F 102 H 17 102/57 95 10/19/23 16:00 95 18 109/99 96 10/19/23 15:13 97.5 F L 100 17 101/45 10/19/23 14:53 92 17 94/64 98 10/19/23 14:32 97.3 F L 93 18 95/65 10/19/23 13:00 87 18 93/59 98 Intake and Output 10/19/23 10/20/23 10/20/23 22:59 06:59 14:59 Intake Total 850 540 20 Balance 850 540 20 Intake: IV 20 Invasive Line 1 20 Oral 540 540 Blood Product 310 Rc As-1 Unit 310 [id number] Other: Voiding Method Bedside Commode Bedside Commode Bedside Commode Diaper Diaper Diaper # Voids 1 2 # Bowel Movements 1 2 Weight 79.379 kg Results 10/19/23 18:51 10/20/23 06:46 Cardiac Enzymes 10/19/23 10/19/23 Range/Units 13:26 15:33 Troponin I 0.061 H* 0.064 H* (0.000-0.034) ng/mL CBC 10/19/23 Range/Units 18:51 WBC 13.0 H (3.8-10.6) k/uL RBC 3.33 L (3.80-5.40) m/uL Hgb 10.1 L D (11.4-16.0) gm/dL Hct 30.2 L (34.0-46.0) % Plt Count 67 L (150-450) k/uL Comprehensive Metabolic Panel 10/20/23 Range/Units 06:46 Sodium 137 (137-145) mmol/L Potassium 4.6 (3.5-5.1) mmol/L Chloride 112 H (98-107) mmol/L Carbon Dioxide 16 L (22-30) mmol/L BUN 114 H* (7-17) mg/dL Creatinine 2.86 H (0.52-1.04) mg/dL Glucose 79 (74-99) mg/dL Calcium 8.1 L (8.4-10.2) mg/dL Current Medications Generic Name Dose Route Start Last Admin Trade Name Freq PRN Reason Stop Dose Admin Acetaminophen 650 mg 10/19/23 11:55 Acetaminophen Tab 325 Mg Tab PO Q6HR PRN Pain Albuterol Sulfate 2.5 mg 10/19/23 11:55 Albuterol Nebulized 2.5 Mg/3 Ml INHALATION RT-Q4H PRN Shortness Of Breath Metoprolol Tartrate 50 mg 10/19/23 16:00 10/20/23 07:39 Metoprolol Tartrate 50 Mg Tab PO 50 mg Q8HR MEÑO Administration Pantoprazole Sodium 40 mg 10/19/23 12:00 10/20/23 07:38 Pantoprazole 40 Mg/10 Ml Vial IVP 40 mg BID MEÑO Administration Intake and Output 10/19/23 10/20/23 10/20/23 22:59 06:59 14:59 Intake Total 850 540 20 Balance 850 540 20 Intake: IV 20 Invasive Line 1 20 Oral 540 540 Blood Product 310 Rc As-1 Unit 310 [id number] Other: Voiding Method Bedside Commode Bedside Commode Bedside Commode Diaper Diaper Diaper # Voids 1 2 # Bowel Movements 1 2 Weight 79.379 kg 10/19/23 18:51 10/20/23 06:46
--- NOTE | 2023-10-20 12:47 | P.GSCN ---
History of Present Illness Consult date: 10/20/23 Reason for Consult: GI bleed History of present illness: this is an 78-year-old female who's had some history of GI bleed and anemia. Patient underwent laparoscopic cholecystectomy last month with myself. Patient states that she's noticed a couple episodes of GI bleed. Patient is not overweight she had her last colonoscopy. 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 History of Any Multi-Drug Resistant Organisms: None Reported Past Surgical History: Cholecystectomy, Heart Catheterization Additional Past Surgical History / Comment(s): EYE SURGERY DUE TO INJURY, EGD, COLONOSCOPY, BONE MARROW BIOPSY, cataracts, muscle biopsy, Past Anesthesia/Blood Transfusion Reactions: No Reported Reaction Past Psychological History: No Psychological Hx Reported Smoking Status: Never smoker Past Alcohol Use History: Occasional Additional Past Alcohol Use History / Comment(s): "1 glass of wine per day most days but not all". Past Drug Use History: None Reported - Past Family History Sister(s) Family Medical History: Cancer Additional Family Medical History / Comment(s): LEUKEMIA- at age 42 Brother(s) Family Medical History: Cancer Additional Family Medical History / Comment(s): with unknown type CA at age 60s Medications and Allergies Home Medications Medication Instructions Recorded Confirmed Type Albuterol Sulfate [Ventolin HFA] 2 puff INHALATION RT-Q4H PRN 08/03/23 10/19/23 History Famotidine [Pepcid] 20 mg PO BID 08/03/23 10/19/23 History Acetaminophen Tab [Tylenol] 650 mg PO Q6HR PRN 10/19/23 10/19/23 History Apixaban [Eliquis] 2.5 mg PO BID 10/19/23 10/19/23 History Collagenase [Santyl Ointment] 1 applic TOPICAL DAILY PRN 10/19/23 10/19/23 History Collagenase [Santyl Ointment] 1 applic TOPICAL HS 10/19/23 10/19/23 History Docusate [Colace] 100 mg PO BID 10/19/23 10/19/23 History Metoprolol Tartrate [Lopressor] 50 mg PO Q8H 10/19/23 10/19/23 History Midodrine [ProAmatine] 5 mg PO TID 10/19/23 10/19/23 History Potassium Chloride ER [K-Dur 10] 10 meq PO DAILY 10/19/23 10/19/23 History Torsemide [Demadex] 10 mg PO DAILY 10/19/23 10/19/23 History Torsemide [Demadex] 20 mg PO DAILY 10/19/23 10/19/23 History Allergies Allergy/AdvReac Type Severity Reaction Status Date / Time omeprazole [From Prilosec] Allergy Unknown Rash/Hives, Verified 10/19/23 09:55 TONGUE SWELLLING omeprazole magnesium Allergy Unknown Rash/Hives, Verified 10/19/23 09:55 [From Prilosec] TONGUE SWELLLING Penicillins Allergy Unknown Rash/Hives/ Verified 10/19/23 09:55 Itching amlodipine Allergy fide pedal Verified 10/19/23 09:55 edema, loss voice carvedilol Allergy shortness Verified 10/19/23 09:55 of breath lisinopril Allergy Unknown Verified 10/19/23 09:55 Surgical - Exam Vital Signs Temp Pulse Resp BP Pulse Ox 97.8 F 111 H 19 87/64 100 10/19/23 09:05 10/19/23 09:05 10/19/23 09:05 10/19/23 09:05 10/19/23 09:05 - General well developed, no distress - Eyes PERRL - ENT normal pinna - Neck no masses - Respiratory normal expansion - Cardiovascular Rhythm: regular - Abdomen Abdomen: soft, non tender Results - Labs 10/19/23 18:51 10/20/23 06:46 Abnormal Lab Results - Last 24 Hours (Table) 10/19/23 10/19/23 10/19/23 Range/Units 09:30 13:26 15:33 WBC (3.8-10.6) k/uL RBC (3.80-5.40) m/uL Hgb (11.4-16.0) gm/dL Hct (34.0-46.0) % RDW (11.5-15.5) % Plt Count (150-450) k/uL Eosinophils # (Manual) (0-0.7) k/uL Chloride (98-107) mmol/L Carbon Dioxide (22-30) mmol/L BUN (7-17) mg/dL Creatinine (0.52-1.04) mg/dL Calcium (8.4-10.2) mg/dL Troponin I 0.061 H* 0.064 H* (0.000-0.034) ng/mL Crossmatch See Detail 10/19/23 10/20/23 Range/Units 18:51 06:46 WBC 13.0 H (3.8-10.6) k/uL RBC 3.33 L (3.80-5.40) m/uL Hgb 10.1 L D (11.4-16.0) gm/dL Hct 30.2 L (34.0-46.0) % RDW 21.2 H (11.5-15.5) % Plt Count 67 L (150-450) k/uL Eosinophils # (Manual) 2.08 H (0-0.7) k/uL Chloride 112 H (98-107) mmol/L Carbon Dioxide 16 L (22-30) mmol/L BUN 114 H* (7-17) mg/dL Creatinine 2.86 H (0.52-1.04) mg/dL Calcium 8.1 L (8.4-10.2) mg/dL Troponin I (0.000-0.034) ng/mL Crossmatch Diabetes panel 10/20/23 Range/Units 06:46 Sodium 137 (137-145) mmol/L Potassium 4.6 (3.5-5.1) mmol/L Chloride 112 H (98-107) mmol/L Carbon Dioxide 16 L (22-30) mmol/L BUN 114 H* (7-17) mg/dL Creatinine 2.86 H (0.52-1.04) mg/dL Glucose 79 (74-99) mg/dL Calcium 8.1 L (8.4-10.2) mg/dL Calcium panel 10/20/23 Range/Units 06:46 Calcium 8.1 L (8.4-10.2) mg/dL Pituitary panel 10/20/23 Range/Units 06:46 Sodium 137 (137-145) mmol/L Potassium 4.6 (3.5-5.1) mmol/L Chloride 112 H (98-107) mmol/L Carbon Dioxide 16 L (22-30) mmol/L BUN 114 H* (7-17) mg/dL Creatinine 2.86 H (0.52-1.04) mg/dL Glucose 79 (74-99) mg/dL Calcium 8.1 L (8.4-10.2) mg/dL Adrenal panel 10/20/23 Range/Units 06:46 Sodium 137 (137-145) mmol/L Potassium 4.6 (3.5-5.1) mmol/L Chloride 112 H (98-107) mmol/L Carbon Dioxide 16 L (22-30) mmol/L BUN 114 H* (7-17) mg/dL Creatinine 2.86 H (0.52-1.04) mg/dL Glucose 79 (74-99) mg/dL Calcium 8.1 L (8.4-10.2) mg/dL Assessment and Plan Assessment: anemia, history of GI bleed. Patient will undergo EGD colonoscopy when medically stable.
--- NOTE | 2023-10-20 13:09 | CT ---
EXAMINATION TYPE: CT chest wo con DATE OF EXAM: 10/20/2023 COMPARISON: CT chest abdomen pelvis dated 06/08/2023 HISTORY: PLEURAL EFFUSION CT DLP: 291.7 mGycm. Automated Exposure Control for Dose Reduction was Utilized. TECHNIQUE: CT scan of the thorax is performed without IV contrast. FINDINGS: There is a moderate right pleural effusion which has increased in the interval compared to the prior study. There is adjacent mild right lower lobe atelectasis. There is a moderate to large left pleural effusion which is increased significantly since the prior s tudy. There is increasing atelectasis in the left lung base posteriorly. There is moderate cardiomegaly. The great vessels the chest are normal and is no mediastinal, hilar o r axillary adenopathy. There is marked anasarca of the thorax. Limited scanning through the upper abdomen reveals no gross abnormality. IMPRESSION: 1. Increasing bilateral pleural effusions, left greater than right with bibasilar atelectasis. 2. Stable moderate cardiomegaly. 3. Development of anasarca of the soft tissues of the thorax.
[2023-10-20] MEDS ORDERED: ZINC OXIDE PASTE (Z-GUARD) 1 APPLIC TOPICAL PRN (13:23)
--- NOTE | 2023-10-20 15:21 | P.PN ---
Subjective Patient pleasant 78-year-old female was sent in because of low hemoglobin of 6.5 at [facility]. Patient does have multiple dark stools. Patient was recently discharged about a week ago from another hospital after she was treated for septic shock and her gallbladder was removed patient is also on metronidazole and vancomycin. Patient is having diarrhea. C. difficile is being obtained. Patient denies any abdominal pain nausea vomiting. Patient recent hemoglobin was around 8. Patient also has acute renal failure with serum creatinine going up to 2.5 last few few months serum creatinine is around 2 before that it was within normal limits patient also has history of heart failure with preserved ejection fraction for which patient is on diuretic. Patient has low blood pressures here apparently may have had a fall is also lightheaded at this time. Patient does have bilateral lower extremity edema is on 3 L of oxygen saturating at 100% which will cut down. Patient denies any orthopnea paroxysmal nocturnal dyspnea at this time I do not have any chest x- ray which will be obtained along with BNP. Patient has chronic atrial fibrillation presently rate controlled and is on Eliquis 2.5 mg and INR is around 2. Patient denies any fatigue. Patient denies any abdominal pain. October 20, 2023 Patient does not have any more episodes of GI bleed anticoagulation is on hold patient blood pressure is in 90s systolic holding off on the diuretic therapy. I will obtain a chest x-ray tomorrow patient will remain n.p.o. for possible upper GI endoscopy tomorrow. Patient serum creatinine remains at 2.86. Nephrology will be consulted. Constitutional: Denied any fatigue denied any fever. Cardio vascular: denied any chest pain, palpitations Gastrointestinal denied any nausea vomiting Pulmonary: Denied any shortness of breath cough Neurologic denied any new focal deficits All inpatient medications were reviewed and appropriate changes in these medications as dictated in the interval history and assessment and plan. PHYSICAL EXAMINATION: GENERAL: The patient is alert and oriented x3, not in any acute distress. Obese HEENT: Pupils are round and equally reacting to light. EOMI. No scleral icterus. Does have conjunctival pallor. Normocephalic, atraumatic. No pharyngeal erythema. No thyromegaly. CARDIOVASCULAR: S1 and S2 present. No murmurs, rubs, or gallops. PULMONARY: Chest is clear to auscultation, no wheezing or crackles. ABDOMEN: Soft, nontender, nondistended, normoactive bowel sounds. No palpable organomegaly. MUSCULOSKELETAL: No joint swelling or deformity. EXTREMITIES: No cyanosis, clubbing, bilateral lower extremity edema NEUROLOGICAL: Gross neurological examination did not reveal any focal deficits. SKIN: No rashes. Assessment and plan -Acute upper GI bleed with dark stools patient will be started on Protonix twice a day, general surgery evaluated the patient probably will do upper GI endoscopy tomorrow patient will remain n.p.o. after midnight today. Patient's hemoglobin improved to 2:10 units of PRBC transfusion. INR is elevated probably because of vitamin K deficiency along with Eliquis. -Chronic atrial fibrillation patient is presently rate controlled patient was resumed on metoprolol if her blood pressure can tolerate, hold off anticoagulation for above-mentioned reasons -Congestive heart failure chronic diastolic dysfunction, may have mild acute exacerbation will avoid IV fluids but for now because of low blood pressures and dizziness we will hold off on Demadex. Patient is on midodrine as well if needed patient will be started back on midodrine for now we will hold midodrine as well because of concerns of worsening heart failure. Will obtain a chest x-r ay tomorrow to make sure patient does not have any pulmonary edema by holding the Demadex -Diarrhea: Resolved C. difficile is negative p -Possible acute renal failure probably secondary to diuretics which are being held at this time hypotension may have contributed to that as well. Will consult nephrology Elevated troponins probably secondary to anemia and acute renal failure, cardiology was consulted in ED for recommendation regarding anticoagulation will repeat 2 more troponins patient does not have any chest pain at this time -Hypomagnesemia magnesium was replaced. -Hypotension: Probably secondary to diuretics and GI bleed DVT prophylaxis: No pharmacological anticoagulation because of concerns of significant GI bleed, can use SCDs Objective - Vital Signs Vital signs: Vital Signs Temp 96.8 F L 10/20/23 15:12 Pulse 77 10/20/23 15:12 Resp 18 10/20/23 15:12 BP 104/61 10/20/23 15:12 Pulse Ox 95 10/20/23 15:12 FiO2 Intake & Output 10/19/23 10/20/23 10/20/23 18:59 06:59 18:59 Intake Total 620 1080 138 Balance 620 1080 138 Weight 79.379 kg 79.379 kg Intake: IV 20 Invasive Line 1 20 Oral 1080 118 Blood Product 620 Rc As-1 Unit 310 [id number] Rc As-1 Unit 310 [id number] Other: Voiding Method Bedside Commode Bedside Commode Diaper Diaper # Voids 2 1 # Bowel Movements 2 1 - Labs CBC & Chem 7: 10/19/23 18:51 10/20/23 06:46 Labs: Abnormal Lab Results - Last 24 Hours (Table) 10/19/23 10/19/23 10/19/23 Range/Units 09:30 15:33 18:51 WBC 13.0 H (3.8-10.6) k/uL RBC 3.33 L (3.80-5.40) m/uL Hgb 10.1 L D (11.4-16.0) gm/dL Hct 30.2 L (34.0-46.0) % RDW 21.2 H (11.5-15.5) % Plt Count 67 L (150-450) k/uL Eosinophils # (Manual) 2.08 H (0-0.7) k/uL Chloride (98-107) mmol/L Carbon Dioxide (22-30) mmol/L BUN (7-17) mg/dL Creatinine (0.52-1.04) mg/dL Calcium (8.4-10.2) mg/dL Troponin I 0.064 H* (0.000-0.034) ng/mL Crossmatch See Detail 10/20/23 Range/Units 06:46 WBC (3.8-10.6) k/uL RBC (3.80-5.40) m/uL Hgb (11.4-16.0) gm/dL Hct (34.0-46.0) % RDW (11.5-15.5) % Plt Count (150-450) k/uL Eosinophils # (Manual) (0-0.7) k/uL Chloride 112 H (98-107) mmol/L Carbon Dioxide 16 L (22-30) mmol/L BUN 114 H* (7-17) mg/dL Creatinine 2.86 H (0.52-1.04) mg/dL Calcium 8.1 L (8.4-10.2) mg/dL Troponin I (0.000-0.034) ng/mL Crossmatch
--- NOTE | 2023-10-20 16:05 | XR ---
EXAMINATION TYPE: XR chest 1V DATE OF EXAM: 10/20/2023 3:51 PM CLINICAL INDICATION:Female, 78 years old with history of CHF; COMPARISON: Chest radiographs from 10/19/2023 TECHNIQUE: XR chest 1V Frontal view of the chest. FINDINGS: Lungs/Pleura: There is no evidence of pleural effusion, focal consolidation, or pneumothorax. Pulmonary vascularity: Pulmonary vascular congestion. Heart/mediastinum: Cardiomediastinal silhouette is enlarged and stable. Musculoskeletal: No acute osseous pathology. IMPRESSION: Cardiomegaly and mild pulmonary vascular congestion. Correlate with BNP for congestive heart failure.
--- NOTE | 2023-10-21 08:31 | P.PN ---
Subjective Progress Note Date: 10/21/23 Principal diagnosis: A. FIB The patient is an 78-year-old female patient with a past medical history significant for cardiomyopathy and heart failure and atrial fibrillation as well as multiple comorbid conditions was admitted to the hospital with gastrointestinal bleeding required blood transfusion and currently oral anticoagulation is on hold. She was seen by the gastrointestinal service for possible EGD down the line October 21, 2023 The patient was seen and evaluated. She is hemodynamically stable which she is asymptomatic. GI service continues to be on the case for possible EGD. Anticoagulation continues to be on hold. She continues to be in atrial fibrillation with controlled heart rate on the current medical regimen including the current dose of beta-breanne Assessment Gastrointestinal bleeding Blood loss anemia Atrial fibrillation with controlled heart rate History of cardiomyopathy History of heart failure Plan Continue holding the oral anticoagulation The patient might benefit from left atrial appendage closure device Continue the current dose of beta-breanne Follow-up with the patient Objective - Vital Signs Vital signs: Vital Signs Temp 97.5 F L 10/21/23 04:00 Pulse 94 10/21/23 04:00 Resp 19 10/21/23 04:00 BP 102/70 10/21/23 04:00 Pulse Ox 98 10/21/23 04:00 FiO2 Intake & Output 10/20/23 10/21/23 10/21/23 18:59 06:59 18:59 Intake Total 138 20 Balance 138 20 Intake: IV 20 20 Invasive Line 1 20 20 Oral 118 Other: Voiding Method Bedside Commode Bedside Commode Diaper Diaper # Voids 1 1 # Bowel Movements 1 1 - Labs CBC & Chem 7: 10/19/23 18:51 10/20/23 06:46
[2023-10-21 08:46] LABS: Anisocytosis Moderate; HCT 27.1 % (34.0-46.0); HGB 9.1 gm/dL (11.4-16.0); MCH 30.8 pg (25.0-35.0); MCHC 33.7 g/dL (31.0-37.0); MCV 91.2 fL (80.0-100.0); Macrocytosis Slight; RBC 2.97 m/uL (3.80-5.40); RDW 21.8 % (11.5-15.5); WBC 9.5 k/uL (3.8-10.6)
[2023-10-21 08:50] LABS: African American GFR (CKD) 17 (>60 ml/min/1.73 sqM); Anion Gap 9 mmol/L; Calcium 8.2 mg/dL (8.4-10.2); Carbon Dioxide 16 mmol/L (22-30); Chloride 112 mmol/L (98-107); Glucose 63 mg/dL (74-99); Magnesium 1.5 mg/dL (1.6-2.3); Non-African American GFR(CKD) 15 (>60 ml/min/1.73 sqM); Potassium 4.4 mmol/L (3.5-5.1); Sodium 137 mmol/L (137-145)
[2023-10-21 08:51] LABS: Blood Urea Nitrogen 115 mg/dL (7-17)
[2023-10-21 08:58] LABS: Platelet Count 72 k/uL (150-450)
--- NOTE | 2023-10-21 09:04 | P.CONS ---
History of Present Illness - Reason for Consult Consult date: 10/20/23 Right leg wound Requesting physician: Baltazar Gayle - Chief Complaint Low hemoglobin x 1 day - History of Present Illness Patient is a 78-year-old female with a past medical history significant for heart failure with hypertension osteoarthritis with recent a dmission to the hospital with left lower extremity cellulitis and cholecystitis s/p cholecystectomy patient has been brought to the hospital yesterday morning from the local correction concerning for anemia as the patient was noticed to have a hemoglobin of 6.5 patient also stools patient denies having any abdominal pain no nausea no vomiting or hematemesis some shortness of breath but no chest pain or cough patient also have a wound to the right lower extremity that has been recently debrided at the [facility] nursing staff mention some foul-smelling drainage at the time of dressing changes patient did have some dull aching pain mild intensity without any radiation infectious he was consulted today for further management of the right lower extremity wound patient on presentation to the hospital was afebrile and no fever have been recorded subsequently patient was mildly tachycardic but not hypotensive currently on a 2 L nasal cannula oxygen patient did have a hemoglobin of 10.1 and white count of 13,000 with a left shift as of yesterday no CBC was done today creatinine is 2.86 stool for C. 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 History of Any Multi-Drug Resistant Organisms: None Reported Past Surgical History: Cholecystectomy, Heart Catheterization Additional Past Surgical History / Comment(s): EYE SURGERY DUE TO INJURY, EGD, COLONOSCOPY, BONE MARROW BIOPSY, cataracts, muscle biopsy, Past Anesthesia/Blood Transfusion Reactions: No Reported Reaction Past Psychological History: No Psychological Hx Reported Smoking Status: Never smoker Past Alcohol Use History: Occasional Additional Past Alcohol Use History / Comment(s): "1 glass of wine per day most days but not all". Past Drug Use History: None Reported - Past Family History Sister(s) Family Medical History: Cancer Additional Family Medical History / Comment(s): LEUKEMIA- at age 42 Brother(s) Family Medical History: Cancer Additional Family Medical History / Comment(s): with unknown type CA at age 60s Medications and Allergies Home Medications Medication Instructions Recorded Confirmed Type Albuterol Sulfate [Ventolin HFA] 2 puff INHALATION RT-Q4H PRN 08/03/23 10/19/23 History Famotidine [Pepcid] 20 mg PO BID 08/03/23 10/19/23 History Acetaminophen Tab [Tylenol] 650 mg PO Q6HR PRN 10/19/23 10/19/23 History Docusate [Colace] 100 mg PO BID 10/19/23 10/19/23 History Metoprolol Tartrate [Lopressor] 50 mg PO Q8H 10/19/23 10/19/23 History Albuterol Nebulized [Ventolin 2.5 mg INHALATION RT-Q4H PRN ml 10/25/23 Rx Nebulized] Darbepoetin Luis Alberto [Aranesp] 40 mcg SQ Q7D each 10/25/23 Rx Furosemide [Lasix] 40 mg PO BID #60 tablet 10/25/23 Rx Potassium Chloride ER [K-Dur 20] 20 meq PO DAILY tab 10/25/23 Rx Sodium Bicarbonate Tab 650 mg PO BID tab 10/25/23 Rx cefUROXime axetiL [Ceftin] 500 mg PO BID 7 Days #14 tab 10/25/23 Rx Allergies Allergy/AdvReac Type Severity Reaction Status Date / Time omeprazole [From Prilosec] Allergy Unknown Rash/Hives, Verified 10/19/23 09:55 TONGUE SWELLLING omeprazole magnesium Allergy Unknown Rash/Hives, Verified 10/19/23 09:55 [From Prilosec] TONGUE SWELLLING Penicillins Allergy Unknown Rash/Hives/ Verified 10/19/23 09:55 Itching amlodipine Allergy fide pedal Verified 10/19/23 09:55 edema, loss voice carvedilol Allergy shortness Verified 10/19/23 09:55 of breath lisinopril Allergy Unknown Verified 10/19/23 09:55 Physical Exam Vitals: Vital Signs Temp Pulse Pulse Resp BP BP Pulse Ox 10/20/23 15:12 96.8 F L 77 18 104/61 95 10/20/23 11:42 96.6 F L 70 16 98/58 98 10/20/23 07:36 62 16 111/53 96 10/20/23 04:00 60 16 106/67 98 10/20/23 00:00 73 16 108/72 91 L 10/19/23 20:55 98.1 F 65 16 117/70 98 10/19/23 20:12 106 H 18 112/56 98 10/19/23 17:33 91 18 110/72 100 10/19/23 16:50 97.6 F 86 17 102/57 95 10/19/23 16:47 97.6 F 102 H 17 102/57 95 Intake and Output 10/20/23 10/20/23 10/20/23 06:59 14:59 22:59 Intake Total 540 138 Balance 540 138 Intake: IV 20 Invasive Line 1 20 Oral 540 118 Other: Voiding Method Bedside Commode Bedside Commode Bedside Commode Diaper Diaper Diaper # Voids 2 1 # Bowel Movements 2 1 GENERAL DESCRIPTION: Elderly female lying in bed, no distress. No tachypnea or accessory muscle of respiration use. HEENT: Shows Pallor , no scleral icterus. Oral mucous membrane is dry. No pharyngeal erythema or thrush NECK: Trachea central, no thyromegaly. LUNGS: Unlabored breathing. Clear to auscultation anteriorly. No wheeze or crackle. HEART: S1, S2, regular rate and rhythm. No loud murmur ABDOMEN: Soft, no tenderness , guarding or rigidity, no organomegaly EXTREMITIES: Right lateral leg wound with some skin necrosis no significant redness or foul-smelling drainage SKIN: No rash, no masses palpable. NEUROLOGICAL: The patient is awake, alert, mood and affect normal. Results CBC & Chem 7: 10/25/23 09:14 10/25/23 09:14 Labs: Abnormal Lab Results - Last 24 Hours (Table) 10/19/23 10/19/23 10/19/23 Range/Units 09:30 15:33 18:51 WBC 13.0 H (3.8-10.6) k/uL RBC 3.33 L (3.80-5.40) m/uL Hgb 10.1 L D (11.4-16.0) gm/dL Hct 30.2 L (34.0-46.0) % RDW 21.2 H (11.5-15.5) % Plt Count 67 L (150-450) k/uL Eosinophils # (Manual) 2.08 H (0-0.7) k/uL Chloride (98-107) mmol/L Carbon Dioxide (22-30) mmol/L BUN (7-17) mg/dL Creatinine (0.52-1.04) mg/dL Calcium (8.4-10.2) mg/dL Troponin I 0.064 H* (0.000-0.034) ng/mL Crossmatch See Detail 10/20/23 Range/Units 06:46 WBC (3.8-10.6) k/uL RBC (3.80-5.40) m/uL Hgb (11.4-16.0) gm/dL Hct (34.0-46.0) % RDW (11.5-15.5) % Plt Count (150-450) k/uL Eosinophils # (Manual) (0-0.7) k/uL Chloride 112 H (98-107) mmol/L Carbon Dioxide 16 L (22-30) mmol/L BUN 114 H* (7-17) mg/dL Creatinine 2.86 H (0.52-1.04) mg/dL Calcium 8.1 L (8.4-10.2) mg/dL Troponin I (0.000-0.034) ng/mL Crossmatch Assessment and Plan (1) Non-pressure chronic ulcer of other part of right lower leg with fat layer exposed Current Visit: Yes Status: Acute Code(s): L97.812 - NON-PRS CHRONIC ULCER OTH PRT R LOW LEG W FAT LAYER EXPOSED SNOMED Code(s): 18917550300472438 (2) Allergy to penicillin Current Visit: No Status: Acute Code(s): Z88.0 - ALLERGY STATUS TO PENICILLIN SNOMED Code(s): 01456840 Plan: 1patient with a right lower extremity wound likely representing a venous stasis ulcer that has been recently debrided at the correction and this patient present to the hospital with anemia and GI workup is in progress patient did have mild elevated white count but not running any fever clinic suspicion is low for infected wound. 2local wound care with the dry Aquacel dressing, the wound will be reevaluated tomorrow to determine any change in the local wound care. 3no need for systemic antibiotic therapy white count will be monitored closely. We will follow on clinical condition and cultures to further adjust medication if needed Thank you for this consultation we will follow the patient along with you Dictation was produced using [employer] dictation software. please excuse any grammatical, word or spelling errors. Time with Patient: Greater than 30
--- NOTE | 2023-10-21 10:04 | P.NPCON ---
History of Present Illness - Reason for Consult acute renal failure - History of Present Illness Reason for consultation: Acute kidney injury History of present illness: Patient is a 78-year-old female seen in renal consultation for acute kidney injury. Patient's creatinine dated September 10, 2023 was near 1. Creatinine dated October 18, 2023 was 3 and has been stable near 2.8 this admission. Patient came to the hospital due to concern for GI bleed. Patient underwent cholecystectomy in August 2023. After that patient went to [facility] for rehabilitation. She was found to have a hemoglobin of 6.5 and was brought to the hospital. She has received blood transfusions and hemoglobin this morning was 9.1. Patient is not a very reliable historian and is unsure if she has been having any active bleeding or not. She is incontinent. Blood pressure was low on admission in the systolic 80s. This morning blood pressure was 104/58. She was taking Demadex outpatient. I do not see any NSAIDs on her home medication list. She is being followed by surgery and is scheduled for EGD colonoscopy when medically stable. Vital signs are stable. General: No acute distress. HEENT: Head exam is unremarkable. On nasal cannula. LUNGS: No audible rhonchi or wheezes. HEART: Irregular rate and rhythm. ABDOMEN: Nontender. EXTREMITITES: 1+ edema. No drainage noted. 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 History of Any Multi-Drug Resistant Organisms: None Reported Past Surgical History: Cholecystectomy, Heart Catheterization Additional Past Surgical History / Comment(s): EYE SURGERY DUE TO INJURY, EGD, COLONOSCOPY, BONE MARROW BIOPSY, cataracts, muscle biopsy, Past Anesthesia/Blood Transfusion Reactions: No Reported Reaction Past Psychological History: No Psychological Hx Reported Smoking Status: Never smoker Past Alcohol Use History: Occasional Additional Past Alcohol Use History / Comment(s): "1 glass of wine per day most days but not all". Past Drug Use History: None Reported - Past Family History Sister(s) Family Medical History: Cancer Additional Family Medical History / Comment(s): LEUKEMIA- at age 42 Brother(s) Family Medical History: Cancer Additional Family Medical History / Comment(s): with unknown type CA at age 60s Medications and Allergies Home Medications Medication Instructions Recorded Confirmed Type Albuterol Sulfate [Ventolin HFA] 2 puff INHALATION RT-Q4H PRN 08/03/23 10/19/23 History Famotidine [Pepcid] 20 mg PO BID 08/03/23 10/19/23 History Acetaminophen Tab [Tylenol] 650 mg PO Q6HR PRN 10/19/23 10/19/23 History Apixaban [Eliquis] 2.5 mg PO BID 10/19/23 10/19/23 History Collagenase [Santyl Ointment] 1 applic TOPICAL DAILY PRN 10/19/23 10/19/23 History Collagenase [Santyl Ointment] 1 applic TOPICAL HS 10/19/23 10/19/23 History Docusate [Colace] 100 mg PO BID 10/19/23 10/19/23 History Metoprolol Tartrate [Lopressor] 50 mg PO Q8H 10/19/23 10/19/23 History Midodrine [ProAmatine] 5 mg PO TID 10/19/23 10/19/23 History Potassium Chloride ER [K-Dur 10] 10 meq PO DAILY 10/19/23 10/19/23 History Torsemide [Demadex] 10 mg PO DAILY 10/19/23 10/19/23 History Torsemide [Demadex] 20 mg PO DAILY 10/19/23 10/19/23 History Allergies Allergy/AdvReac Type Severity Reaction Status Date / Time omeprazole [From Prilosec] Allergy Unknown Rash/Hives, Verified 10/19/23 09:55 TONGUE SWELLLING omeprazole magnesium Allergy Unknown Rash/Hives, Verified 10/19/23 09:55 [From Prilosec] TONGUE SWELLLING Penicillins Allergy Unknown Rash/Hives/ Verified 10/19/23 09:55 Itching amlodipine Allergy fide pedal Verified 10/19/23 09:55 edema, loss voice carvedilol Allergy shortness Verified 10/19/23 09:55 of breath lisinopril Allergy Unknown Verified 10/19/23 09:55 Physical Exam Vitals: Vital Signs Temp Pulse Resp BP Pulse Ox 10/21/23 08:00 97.5 F L 89 18 104/58 94 L 10/21/23 04:00 97.5 F L 94 19 102/70 98 10/21/23 02:00 109 H 19 10/21/23 00:00 97.4 F L 103 H 19 112/72 97 10/20/23 20:00 97.0 F L 101 H 19 120/78 100 10/20/23 15:12 96.8 F L 77 18 104/61 95 10/20/23 11:42 96.6 F L 70 16 98/58 98 Intake and Output 10/20/23 10/21/23 10/21/23 22:59 06:59 14:59 Intake Total 10 10 Balance 10 10 Intake: IV 10 10 Invasive Line 1 10 10 Other: Voiding Method Bedside Commode Bedside Commode Diaper Diaper # Voids 1 # Bowel Movements 1 1 Results - Lab Results Most recent lab results Calcium 8.2 mg/dL (8.4-10.2) L 10/21/23 07:09 Magnesium 1.5 mg/dL (1.6-2.3) L 10/21/23 07:09 10/21/23 07:09 10/21/23 07:09 Assessment and Plan Plan: Assessment: 1. Acute kidney injury secondary to ATN secondary to acute blood loss anemia and hemodynamic instability. Creatinine stable at 2.88 today. Elevated BUN partially due to GI bleed. Creatinine as low as 1.02 dated September 10, 2023. 2. Acute GI bleed status post blood transfusions. Hemoglobin 9.1 today. 3. Hypomagnesemia from poor intake and diuretic use. 4. Metabolic acidosis secondary to acute kidney injury. 5. Acute on chronic diastolic CHF and moderate mitral regurgitation. 6. Volume overload. Plan: Add IV Lasix 40 mg once daily. DDAVP IV x 1 dose today. 2 A of sodium bicarb IV push today. Check renal ultrasound. Check UA. Replace magnesium. Avoid nephrotoxins. Continue to monitor renal function and urine output.
[2023-10-21] MEDS: SODIUM BICARB 8.4% 50 ML SYR (1 MEQ/ML) IV STA (11:07)
[2023-10-21] MEDS: FUROSEMIDE 10 MG/ML 4 ML VIAL IV SCH (11:07)
[2023-10-21] MEDS: MAGNESIUM SULFATE-D5W PMX 1 GM in DEXTROSE/WATER 1 100ML.BAG IVPB SCH (11:07)
--- NOTE | 2023-10-21 11:29 | US ---
EXAMINATION TYPE: US kidneys/renal and bladder DATE OF EXAM: 10/21/2023 COMPARISON: US & CT CLINICAL INDICATION: Female, 78 years old with history of halina; HALINA EXAM MEASUREMENTS: Right Kidney: 10.7 x 4.7 x 5.0 cm Left Kidney: 10.1 x 4.9 x 5.0 cm Right Kidney: No evidence of hydro Left Kidney: No evidence of hydro- difficult to visualize due to immobile pt Bladder: wnl Bilateral Jets seen: No Incidental finding small amount of ascites near liver There is no evidence for hydronephrosis at this point in time. No nephrolithiasis is seen. No vicky s are identified. The urinary bladder is anechoic. Bilateral ureteral jets are seen. IMPRESSION: No evidence for obstructive uropathy. . Cortical medullary differentiation is maintained.
--- NOTE | 2023-10-21 17:34 | P.PN ---
Subjective Progress Note Date: 10/21/23 patient is stable. Her urine was I.1. She shows no sign of GI bleed. On exam vital signs appear stable. Abdomen soft. Patient will be scheduled for endoscopy on if medically stable. Objective - Vital Signs Vital signs: Vital Signs Temp 97.4 F L 10/21/23 16:00 Pulse 84 10/21/23 16:00 Resp 18 10/21/23 16:00 BP 81/41 10/21/23 16:00 Pulse Ox 100 10/21/23 16:00 FiO2 Intake & Output 10/20/23 10/21/23 10/21/23 18:59 06:59 18:59 Intake Total 138 20 20 Balance 138 20 20 Weight 79.379 kg Intake: IV 20 20 20 Invasive Line 1 20 20 20 Oral 118 Other: Voiding Method Bedside Commode Bedside Commode Bedside Commode Diaper Diaper Diaper # Voids 1 1 1 # Bowel Movements 1 1 1 - Labs CBC & Chem 7: 10/21/23 07:09 10/21/23 07:09 Labs: Abnormal Lab Results - Last 24 Hours (Table) 10/21/23 10/21/23 Range/Units 07:09 07:09 RBC 2.97 L (3.80-5.40) m/uL Hgb 9.1 L (11.4-16.0) gm/dL Hct 27.1 L (34.0-46.0) % RDW 21.8 H (11.5-15.5) % Plt Count 72 L (150-450) k/uL Chloride 112 H (98-107) mmol/L Carbon Dioxide 16 L (22-30) mmol/L BUN 115 H* (7-17) mg/dL Creatinine 2.88 H (0.52-1.04) mg/dL Glucose 63 L (74-99) mg/dL Calcium 8.2 L (8.4-10.2) mg/dL Magnesium 1.5 L (1.6-2.3) mg/dL
[2023-10-21] MEDS: DESMOPRESSIN ACETATE 20 MCG in SODIUM CHLORIDE 0.9% 50 ML IVPB ONE (18:56)
--- NOTE | 2023-10-21 19:05 | P.PN ---
Subjective Progress Note Date: 10/21/23 Principal diagnosis: Anemia [id number] female known to our service. I was contacted by the patient's nursing staff earlier today that the requested me to see her. Patient underwent previous muscle biopsy might by self. The patient then had laparoscopic drainage after admission for pneumoperitoneum by locum's surgeon earlier this year. I followed the patient in the outpatient setting after that. Patient with recent findings of cirrhosis. She was supposed to be following up with GI for evaluation of cirrhosis and also to proceed with upper endoscopy. It does not appear that this was done although the patient is a poor historian. She then had cholecystectomy done recently. Presented to the hospital with melanotic stools and anemia. Hemoglobin is improved. No active bleeding currently. Objective - Vital Signs Vital signs: Vital Signs Temp 97.4 F L 10/21/23 16:00 Pulse 84 10/21/23 16:00 Resp 18 10/21/23 16:00 BP 108/61 10/21/23 17:00 Pulse Ox 100 10/21/23 16:00 FiO2 Intake & Output 10/21/23 10/21/23 10/22/23 06:59 18:59 06:59 Intake Total 20 242 Balance 20 242 Weight 79.379 kg Intake: IV 20 20 Invasive Line 1 20 20 Oral 222 Other: Voiding Method Bedside Commode Bedside Commode Diaper Diaper # Voids 1 1 # Bowel Movements 1 1 - Exam Abdomen: Soft, mild epigastric tenderness, nondistended - Labs CBC & Chem 7: 10/21/23 07:09 10/21/23 07:09 Labs: Abnormal Lab Results - Last 24 Hours (Table) 10/21/23 10/21/23 Range/Units 07:09 07:09 RBC 2.97 L (3.80-5.40) m/uL Hgb 9.1 L (11.4-16.0) gm/dL Hct 27.1 L (34.0-46.0) % RDW 21.8 H (11.5-15.5) % Plt Count 72 L (150-450) k/uL Chloride 112 H (98-107) mmol/L Carbon Dioxide 16 L (22-30) mmol/L BUN 115 H* (7-17) mg/dL Creatinine 2.88 H (0.52-1.04) mg/dL Glucose 63 L (74-99) mg/dL Calcium 8.2 L (8.4-10.2) mg/dL Magnesium 1.5 L (1.6-2.3) mg/dL Assessment and Plan (1) Anemia Narrative/Plan: 78-year-old female with anemia and suspected GI bleed. Patient with history of known cirrhosis. Unclear whether the patient had her upper endoscopy performed by GI. It does not sound like they are available for consult currently. Will reevaluate tomorrow. Continue antiacids for now. Monitor hemoglobin. Current Visit: Yes Status: Acute Code(s): D64.9 - ANEMIA, UNSPECIFIED SNOMED Code(s): 626158793
[2023-10-22 00:49] LABS: Amorphous Sediment,Urine Rare /hpf; Appearance,Urine Cloudy (Clear); Bacteria,Urine Occasional /hpf; Bilirubin,Urine Negative (Negative); Blood,Urine Small (Negative); Color,Urine Light Yellow; Glucose,Urine (UA) Negative (Negative); Hyaline Casts,Urine 1 /lpf (0-2); Ketones,Urine Negative (Negative); Leukocyte Esterase,Urine Large (Negative); Mucus,Urine Rare /hpf; Nitrite,Urine Negative (Negative); Protein,Urine Negative (Negative); RBC,Urine 2 /hpf (0-5); Specific Gravity,Urine 1.011 (1.001-1.035); Squamous Epithelial Cell,Urine 13 /hpf (0-4); Urobilinogen,Urine <2.0 mg/dL (<2.0); WBC,Urine 16 /hpf (0-5)
--- NOTE | 2023-10-22 07:06 | P.PN ---
Subjective Progress Note Date: 10/21/23 Patient pleasant 78-year-old female was sent in because of low hemoglobin of 6.5 at [facility]. Patient does have multiple dark stools. Patient was recently discharged about a week ago from another hospital after she was treated for septic shock and her gallbladder was removed patient is also on metronidazole and vancomycin. Patient is having diarrhea. C. difficile is being obtained. Patient denies any abdominal pain nausea vomiting. Patient recent hemoglobin was around 8. Patient also has acute renal failure with serum creatinine going up to 2.5 last few few months serum creatinine is around 2 before that it was within normal limits patient also has history of heart failure with preserved ejection fraction for which patient is on diuretic. Patient has low blood pressures here apparently may have had a fall is also lightheaded at this time. Patient does have bilateral lower extremity edema is on 3 L of oxygen saturating at 100% which will cut down. Patient denies any or thopnea paroxysmal nocturnal dyspnea at this time I do not have any chest x-ray which will be obtained along with BNP. Patient has chronic atrial fibrillation presently rate controlled and is on Eliquis 2.5 mg and INR is around 2. Patient denies any fatigue. Patient denies any abdominal pain. October 20, 2023 Patient does not have any more episodes of GI bleed anticoagulation is on hold patient blood pressure is in 90s systolic holding off on the diuretic therapy. I will obtain a chest x-ray tomorrow patient will remain n.p.o. for possible upper GI endoscopy tomorrow. Patient serum creatinine remains at 2.86. Nephrology will be consulted. 10/21/2023 Patient is seen in follow-up today with multiple medical consultations following. General surgery following with concerns of possible GI bleed although no bleeding noted and anticoagulation remains on hold. Hemoglobin is stable at this time. Patient was n.p.o. and discussing possible endoscopy on . requesting evaluation from Dr. Baker who has been contacted. Nephrology consulted as well making adjustments to medications as kidney functions remain elevated. Patient is afebrile with no reports of chest pain or shortness of breath. Needs encouragement with meals and not much of an appetite. Patient was reporting to being hungry and per nursing staff was made n.p.o. in the event of possible endoscopy. Will resume diet and discuss further with general surgery regarding intervention. Review of systems: Constitutional: Reports of fatigue, denied any fever. Cardio vascular: denied any chest pain, palpitations Gastrointestinal denied any nausea vomiting, not much of an appetite but is reporting to feeling hungry Pulmonary: Denied any worsening shortness of breath, denies cough Neurologic denied any new focal deficits, reports of weakness All inpatient medications were reviewed and appropriate changes in these medications as dictated in the interval history and assessment and plan. PHYSICAL EXAMINATION: GENERAL: The patient is alert and oriented x3, elderly appearing, well- developed. Obese HEENT: Pupils are round and equally reacting to light. EOMI. No scleral icterus. Does have conjunctival pallor. Normocephalic, atraumatic. No pharyngeal erythema. No thyromegaly. CARDIOVASCULAR: S1 and S2 muffled PULMONARY: Chest is clear to auscultation, no wheezing or crackles. ABDOMEN: Soft, obese, nontender, nondistended, normoactive bowel sounds. No palpable organomegaly. MUSCULOSKELETAL: No joint swelling or deformity. EXTREMITIES: No cyanosis, clubbing, bilateral lower extremity edema with some redness NEUROLOGICAL: Gross neurological examination did not reveal any focal deficits. Diffusely weak SKIN: No rashes. Assessment and plan -Acute upper GI bleed with dark stools, continue Protonix twice a day, general surgery following with plans of upper endoscopy possibly . Per family patient requesting Dr. Baker as they have seen him previously. Patient was to follow-up with GI outpatient for endoscopy although failed to do so. Hemoglobin is stable with no active bleeding noted, Eliquis remains on hold -Chronic atrial fibrillation patient is presently rate controlled patient was resumed on metoprolol if her blood pressure can tolerate, hold off anticoagulation for above-mentioned reasons -Congestive heart failure chronic diastolic dysfunction, may have mild acute e xacerbation will avoid IV fluids but for now because of low blood pressures and dizziness we will hold off on Demadex. Patient is on midodrine as well if needed patient will be started back on midodrine for now we will hold midodrine as well because of concerns of worsening heart failure. Will obtain a chest x- ray tomorrow to make sure patient does not have any pulmonary edema by holding the Demadex -Diarrhea: Resolved C. difficile is negative -Possible acute renal failure probably secondary to diuretics which are being held at this time, hypotension may have contributed to that as well. nephrology following - elevated troponins probably secondary to anemia and acute renal failure, cardiology following for recommendation regarding anticoagulation will repeat 2 more troponins patient does not have any chest pain at this time -Hypomagnesemia, but magnesium was replaced. -Hypotension: Probably secondary to diuretics and GI bleed DVT prophylaxis: No pharmacological anticoagulation because of concerns of significant GI bleed, can use SCDs Plan: Patient was made n.p.o. with concerns of possible GI bleed and endoscopic intervention although no immediate plans at this time and tentatively scheduled for . Family requesting Dr. Baker as they have seen him previously and currently pending. Anticoagulation remains on hold and hemoglobin is stable with no active bleeding noted Nephrology consulted with worsening kidney functions and oral diuretics currently on hold. Chest x-ray shows cardiomegaly and mild pulmonary vascular congestion. Await recommendations from nephrology and cardiology regarding diuretics PT/OT therapy to evaluate Follow-up on repeat labs and replace electrolytes per protocol Due to multiple complex medical issues, overall prognosis is guarded. The impression and plan of care has been dictated by Kailey Bates, Nurse Practitioner as directed. Dr. Irwin MD I have performed a history and examination and MDM of this patient, discussed the same with the dictator, and agree with the dictator's assessment and plan as written ,documented as a scribe. Based on total visit time, I have performed more than 50% of the visit. Objective - Vital Signs Vital signs: Vital Signs Temp 97.5 F L 10/21/23 08:00 Pulse 89 10/21/23 08:00 Resp 18 10/21/23 08:00 BP 104/58 10/21/23 08:00 Pulse Ox 94 L 10/21/23 08:00 FiO2 Intake & Output 10/20/23 10/21/23 10/21/23 18:59 06:59 18:59 Intake Total 138 20 10 Balance 138 20 10 Intake: IV 20 20 10 Invasive Line 1 20 20 10 Oral 118 Other: Voiding Method Bedside Commode Bedside Commode Bedside Commode Diaper Diaper Diaper # Voids 1 1 # Bowel Movements 1 1 - Labs CBC & Chem 7: 10/21/23 07:09 10/21/23 07:09 Labs: Abnormal Lab Results - Last 24 Hours (Table) 06/03/24 06/03/24 Range/Units 07:09 07:09 RBC 2.97 L (3.80-5.40) m/uL Hgb 9.1 L (11.4-16.0) gm/dL Hct 27.1 L (34.0-46.0) % RDW 21.8 H (11.5-15.5) % Plt Count 72 L (150-450) k/uL Chloride 112 H (98-107) mmol/L Carbon Dioxide 16 L (22-30) mmol/L BUN 115 H* (7-17) mg/dL Creatinine 2.88 H (0.52-1.04) mg/dL Glucose 63 L (74-99) mg/dL Calcium 8.2 L (8.4-10.2) mg/dL Magnesium 1.5 L (1.6-2.3) mg/dL
--- NOTE | 2023-10-22 09:17 | P.PN ---
Subjective Patient is seen in follow-up for acute kidney injury. Morning labs pending. On IV Lasix. Has been voiding. Denies any active bleeding. Vital signs are stable. General: No acute distress. HEENT: Head exam is unremarkable. On nasal cannula. LUNGS: No audible rhonchi or wheezes. HEART: Rate and Rhythm are regular. ABDOMEN: Nontender. EXTREMITITES: Lower extremities wrapped. 1+ edema. Objective - Vital Signs Vital signs: Vital Signs Temp 97.2 F L 10/22/23 04:00 Pulse 85 10/22/23 04:00 Resp 19 10/22/23 04:00 BP 98/65 10/22/23 04:00 Pulse Ox 98 10/22/23 04:00 FiO2 Intake & Output 10/21/23 10/22/23 10/22/23 18:59 06:59 18:59 Intake Total 242 280 Balance 242 280 Weight 79.379 kg Intake: IV 20 40 Invasive Line 1 20 20 Invasive Line 3 20 Oral 222 240 Other: Voiding Method Bedside Commode Bedside Commode Diaper Diaper # Voids 1 2 # Bowel Movements 1 - Labs CBC & Chem 7: 10/21/23 07:09 10/21/23 07:09 Labs: Abnormal Lab Results - Last 24 Hours (Table) 10/21/23 Range/Units 23:15 Urine Appearance Cloudy H (Clear) Urine Blood Small H (Negative) Ur Leukocyte Esterase Large H (Negative) Urine WBC 16 H (0-5) /hpf Ur Squamous Epith Cells 13 H (0-4) /hpf Amorphous Sediment Rare H (None) /hpf Urine Bacteria Occasional H (None) /hpf Urine Mucus Rare H (None) /hpf Assessment and Plan Plan: Assessment: 1. Acute kidney injury secondary to ATN secondary to acute blood loss anemia and hemodynamic instability. Creatinine stable at 2.88 yesterday. Elevated BUN partially due to GI bleed. Creatinine as low as 1.02 dated September 10, 2023. No proteinuria on UA. No hydronephrosis noted on kidney ultrasound. 2. Acute GI bleed status post blood transfusions. Status post IV DDAVP. Hemoglobin 9.1 yesterday. Surgery following. Possible endoscopy this admission. 3. Hypomagnesemia from poor intake and diuretic use. Replaced. 4. Metabolic acidosis secondary to acute kidney injury. 5. Acute on chronic diastolic CHF and moderate mitral regurgitation. 6. Volume overload. Plan: Maintain IV Lasix. Avoid nephrotoxins. Continue to monitor renal function and urine output.
[2023-10-22 11:03] LABS: ALT 32 U/L (4-34); AST 68 U/L (14-36); African American GFR (CKD) 16 (>60 ml/min/1.73 sqM); Albumin 1.8 g/dL (3.5-5.0); Alkaline Phosphatase 169 U/L (38-126); Anion Gap 8 mmol/L; Calcium 8.3 mg/dL (8.4-10.2); Carbon Dioxide 17 mmol/L (22-30); Chloride 113 mmol/L (98-107); Glucose 88 mg/dL (74-99); Non-African American GFR(CKD) 14 (>60 ml/min/1.73 sqM); Potassium 4.1 mmol/L (3.5-5.1); Sodium 138 mmol/L (137-145); Total Bilirubin 4.1 mg/dL (0.2-1.3); Total Protein 5.1 g/dL (6.3-8.2)
[2023-10-22] MEDS: DARBEPOETIN ALFA 40 MCG/0.4 ML SYRINGE SQ SCH (11:05)
[2023-10-22 11:06] LABS: Blood Urea Nitrogen 114 mg/dL (7-17)
--- NOTE | 2023-10-22 11:09 | P.PN ---
Subjective Progress Note Date: 10/22/23 Laurence WATERS The patient is an 78-year-old female patient with a past medical history significant for cardiomyopathy and heart failure and atrial fibrillation as well as multiple comorbid conditions was admitted to the hospital with gastrointestinal bleeding required blood transfusion and currently oral antico agulation is on hold. She was seen by the gastrointestinal service for possible EGD down the line October 21, 2023 The patient was seen and evaluated. She is hemodynamically stable which she is asymptomatic. GI service continues to be on the case for possible EGD. Anticoagulation continues to be on hold. She continues to be in atrial fibrillation with controlled heart rate on the current medical regimen including the current dose of beta-breanne 10/21 Patient is seen today in follow-up. She remains in atrial fibrillation with controlled rate in the 60s to 80s, blood pressure soft 98/65, pulse ox 90% on 2 L nasal cannula. Consult with GI has been added regarding cirrhosis of the liver. She is currently not on anticoagulation due to blood in her stools and anemia. Physical examination: Limited to this examination includes irregular heart rate, chronic 2+ lower extremity edema, wounds with wraps in place to the bilateral lower extremities. Assessment Gastrointestinal bleeding Blood loss anemia Atrial fibrillation with controlled heart rate History of cardiomyopathy History of heart failure Plan Continue holding the oral anticoagulation The patient might benefit from left atrial appendage closure device Continue the current dose of beta-breanne Follow-up with the patient Nurse practitioner note has been reviewed, I agree with documented findings and plan of care. Patient was seen and examined. Objective - Vital Signs Vital signs: Vital Signs Temp 97.2 F L 10/22/23 04:00 Pulse 85 10/22/23 04:00 Resp 19 10/22/23 04:00 BP 98/65 10/22/23 04:00 Pulse Ox 98 10/22/23 04:00 FiO2 Intake & Output 10/21/23 10/22/23 10/22/23 18:59 06:59 18:59 Intake Total 242 280 Balance 242 280 Weight 79.379 kg Intake: IV 20 40 Invasive Line 1 20 20 Invasive Line 3 20 Oral 222 240 Other: Voiding Method Bedside Commode Bedside Commode Diaper Diaper # Voids 1 2 # Bowel Movements 1 - Labs CBC & Chem 7: 10/21/23 07:09 10/22/23 09:46 Labs: Abnormal Lab Results - Last 24 Hours (Table) 10/21/23 10/21/23 10/21/23 Range/Units 07:09 07:09 23:15 RBC 2.97 L (3.80-5.40) m/uL Hgb 9.1 L (11.4-16.0) gm/dL Hct 27.1 L (34.0-46.0) % RDW 21.8 H (11.5-15.5) % Plt Count 72 L (150-450) k/uL Chloride 112 H (98-107) mmol/L Carbon Dioxide 16 L (22-30) mmol/L BUN 115 H* (7-17) mg/dL Creatinine 2.88 H (0.52-1.04) mg/dL Glucose 63 L (74-99) mg/dL Calcium 8.2 L (8.4-10.2) mg/dL Magnesium 1.5 L (1.6-2.3) mg/dL Urine Appearance Cloudy H (Clear) Urine Blood Small H (Negative) Ur Leukocyte Esterase Large H (Negative) Urine WBC 16 H (0-5) /hpf Ur Squamous Epith Cells 13 H (0-4) /hpf Amorphous Sediment Rare H (None) /hpf Urine Bacteria Occasional H (None) /hpf Urine Mucus Rare H (None) /hpf
[2023-10-22 11:36] LABS: Anisocytosis Moderate; HCT 26.6 % (34.0-46.0); HGB 8.9 gm/dL (11.4-16.0); MCH 30.5 pg (25.0-35.0); MCHC 33.2 g/dL (31.0-37.0); MCV 91.7 fL (80.0-100.0); Macrocytosis Slight; RDW 21.5 % (11.5-15.5); WBC 9.4 k/uL (3.8-10.6)
[2023-10-22 11:37] LABS: Platelet Count 71 k/uL (150-450)
--- NOTE | 2023-10-22 15:31 | P.PN ---
Subjective Progress Note Date: 10/22/23 Principal diagnosis: Anemia Patient without new complaints. Hemoglobin is stable. No melanotic stools. Tolerating diet. Objective - Vital Signs Vital signs: Vital Signs Temp 97.4 F L 10/22/23 08:30 Pulse 89 10/22/23 11:05 Resp 17 10/22/23 11:05 BP 101/67 10/22/23 11:05 Pulse Ox 100 10/22/23 11:05 FiO2 Intake & Output 10/21/23 10/22/23 10/22/23 18:59 06:59 18:59 Intake Total 242 280 20 Balance 242 280 20 Weight 79.379 kg Intake: IV 20 40 20 Invasive Line 1 20 20 10 Invasive Line 3 20 10 Oral 222 240 Other: Voiding Method Bedside Commode Bedside Commode Bedside Commode Diaper Diaper Diaper # Voids 1 2 1 # Bowel Movements 1 1 - Exam Abdomen: Soft, nontender, nondistended - Labs CBC & Chem 7: 10/22/23 09:46 10/22/23 09:46 Labs: Abnormal Lab Results - Last 24 Hours (Table) 10/21/23 10/22/23 10/22/23 Range/Units 23:15 09:46 09:46 RBC 2.90 L (3.80-5.40) m/uL Hgb 8.9 L (11.4-16.0) gm/dL Hct 26.6 L (34.0-46.0) % RDW 21.5 H (11.5-15.5) % Plt Count 71 L (150-450) k/uL Chloride 113 H (98-107) mmol/L Carbon Dioxide 17 L (22-30) mmol/L BUN 114 H* (7-17) mg/dL Creatinine 3.09 H (0.52-1.04) mg/dL Calcium 8.3 L (8.4-10.2) mg/dL Total Bilirubin 4.1 H (0.2-1.3) mg/dL AST 68 H (14-36) U/L Alkaline Phosphatase 169 H (38-126) U/L Total Protein 5.1 L (6.3-8.2) g/dL Albumin 1.8 L (3.5-5.0) g/dL Urine Appearance Cloudy H (Clear) Urine Blood Small H (Negative) Ur Leukocyte Esterase Large H (Negative) Urine WBC 16 H (0-5) /hpf Ur Squamous Epith Cells 13 H (0-4) /hpf Amorphous Sediment Rare H (None) /hpf Urine Bacteria Occasional H (None) /hpf Urine Mucus Rare H (None) /hpf Assessment and Plan (1) Anemia Narrative/Plan: 78-year-old female with cirrhosis and melanotic stools. Spoke with GI this morning. They will tentatively plan EGD tomorrow. Continue antiacids. Will follow. Current Visit: Yes Status: Acute Code(s): D64.9 - ANEMIA, UNSPECIFIED SNOMED Code(s): 805770032
[2023-10-22 15:45] LABS: Basophils # (M) 0.09 k/uL (0-0.2); Eosinophils # (M) 2.63 k/uL (0-0.7); Lymphocytes # (M) 1.41 k/uL (1.0-4.8); Monocytes # (M) 0.47 k/uL (0-1.0); Neutrophils # (M) 4.98 k/uL (1.3-7.7); Neutrophils % (M) 53 %; Nucleated Red Blood Cells 0 /100 WBC (0-0); Total Cells Counted 200
[2023-10-22] MEDS: ALBUMIN HUMAN 25% 50 ML in EMPTY BAG 1 BAG IVPB SCH ×2 (16:10→21:22)
--- NOTE | 2023-10-22 16:10 | P.CONS ---
History of Present Illness - Reason for Consult Consult date: 10/22/23 Anemia, GI bleed Requesting physician: Barry Baker - Chief Complaint Anemia - History of Present Illness The patient is an 78-year-old female who presented to the hospital with acute GI bleed on 10/19/2023. Patient [facility] long-term and had a low hemoglobin reported at 6.5 and multiple dark stools. She is on anticoagulation for history of atrial fibrillation, low-dose Eliquis. On arrival hemoglobin was 6.9. She was transfused 2 units of blood. Neurosurgery was initially consulted. Patient apparently had undergone laparoscopic drainage after admission for pneumoperitoneum earlier this year. She then followed with Dr. Leahy who referred patient to gastroenterology for workup for liver disease and possible cirrhosis. Did follow with Dr. Dawson for workup of cirrhosis and was going to be scheduled for outpatient upper endoscopy to reevaluate ulcer. [facility] stro[facility]ology was consulted for GI bleed. Patient states that she had been having black stools for a while however could not say just how long. It appears to be poor historian. Denies any abdominal pain, nausea or vomiting. Today's labs WBC 9.4 hemoglobin 8.9 platelet count 71,000 sodium 138 potassium 4.1 BUN 114 creatinine 3.09 total bilirubin 4.1 AST 68 ALT 32 alkaline phosphatase 169 Review of Systems REVIEW OF SYSTEMS: CARDIOPULMONARY: No chest pain or shortness of breath. Gastrointestinal: No abdominal pain. No nausea or vomiting. No hematemesis, coffee-ground emesis. No rectal bleeding, reported black stools. GENITOURINARY: No dysuria or hematuria. MUSCULOSKELETAL: Reports normal range of motion., Joint pain. SKIN: No rashes. No jaundice. ENDOCRINE: No chills, fevers. No excessive weight gain or loss. No polydipsia or polyuria. PSYCHIATRIC: Unremarkable. NEUROLOGY: No change in mental status. Denies dizziness, headache. ENT: Vision unremarkable. CONSTITUTIONAL: No recent weight loss. No fever, chills, night sweats. 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 History of Any Multi-Drug Resistant Organisms: None Reported Past Surgical History: Cholecystectomy, Heart Catheterization Additional Past Surgical History / Comment(s): EYE SURGERY DUE TO INJURY, EGD, COLONOSCOPY, BONE MARROW BIOPSY, cataracts, muscle biopsy, Past Anesthesia/Blood Transfusion Reactions: No Reported Reaction Past Psychological History: No Psychological Hx Reported Smoking Status: Never smoker Past Alcohol Use History: Occasional Additional Past Alcohol Use History / Comment(s): "1 glass of wine per day most days but not all". Past Drug Use History: None Reported - Past Family History Sister(s) Family Medical History: Cancer Additional Family Medical History / Comment(s): LEUKEMIA- at age 42 Brother(s) Family Medical History: Cancer Additional Family Medical History / Comment(s): with unknown type CA at age 60s Medications and Allergies Home Medications Medication Instructions Recorded Confirmed Type Albuterol Sulfate [Ventolin HFA] 2 puff INHALATION RT-Q4H PRN 08/03/23 10/19/23 History Famotidine [Pepcid] 20 mg PO BID 08/03/23 10/19/23 History Acetaminophen Tab [Tylenol] 650 mg PO Q6HR PRN 10/19/23 10/19/23 History Apixaban [Eliquis] 2.5 mg PO BID 10/19/23 10/19/23 History Collagenase [Santyl Ointment] 1 applic TOPICAL DAILY PRN 10/19/23 10/19/23 History Collagenase [Santyl Ointment] 1 applic TOPICAL HS 10/19/23 10/19/23 History Docusate [Colace] 100 mg PO BID 10/19/23 10/19/23 History Metoprolol Tartrate [Lopressor] 50 mg PO Q8H 10/19/23 10/19/23 History Midodrine [ProAmatine] 5 mg PO TID 10/19/23 10/19/23 History Potassium Chloride ER [K-Dur 10] 10 meq PO DAILY 10/19/23 10/19/23 History Torsemide [Demadex] 10 mg PO DAILY 10/19/23 10/19/23 History Torsemide [Demadex] 20 mg PO DAILY 10/19/23 10/19/23 History Allergies Allergy/AdvReac Type Severity Reaction Status Date / Time omeprazole [From Prilosec] Allergy Unknown Rash/Hives, Verified 10/19/23 09:55 TONGUE SWELLLING omeprazole magnesium Allergy Unknown Rash/Hives, Verified 10/19/23 09:55 [From [facility]] TONGUE SWELLLING Penicillins Allergy Unknown Rash/Hives/ Verified 10/19/23 09:55 Itching amlodipine Allergy fide pedal Verified 10/19/23 09:55 edema, loss voice carvedilol Allergy shortness Verified 10/19/23 09:55 of breath lisinopril Allergy Unknown Verified 10/19/23 09:55 Physical Exam Vitals: Vital Signs Temp Pulse Resp BP Pulse Ox 10/22/23 04:00 97.2 F L 85 19 98/65 98 10/22/23 01:44 86 19 10/22/23 00:00 97.3 F L 86 20 115/75 92 L 10/21/23 20:00 97.5 F L 68 19 107/70 98 10/21/23 17:00 108/61 10/21/23 16:00 97.4 F L 84 18 81/41 100 10/21/23 11:14 97.4 F L 87 18 97/65 98 Intake and Output 10/21/23 10/22/23 10/22/23 22:59 06:59 14:59 Intake Total 482 20 Balance 482 20 Intake: IV 20 20 Invasive Line 1 10 10 Invasive Line 3 10 10 Oral 462 Other: Voiding Method Bedside Commode Bedside Commode Diaper Diaper # Voids 1 2 General appearance: The patient is alert, oriented, appears in no acute distress. HET: Head is normocephalic and atraumatic. Conjunctiva pink. Sclera anicteric. Neck: Supple without lymphadenopathy. Trachea midline. Heart: Regular. Lungs: Equal expansion, normal respiratory effort. Abdomen: Soft, nontender, obese, nondistended. Skin: No rashes. No jaundice. Extremities: Normal skin color and turgor. No pedal edema. Neurological: No focal deficits. Alert and oriented x3. Results CBC & Chem 7: 10/22/23 09:46 10/22/23 09:46 Labs: Abnormal Lab Results - Last 24 Hours (Table) 10/21/23 Range/Units 23:15 Urine Appearance Cloudy H (Clear) Urine Blood Small H (Negative) Ur Leukocyte Esterase Large H (Negative) Urine WBC 16 H (0-5) /hpf Ur Squamous Epith Cells 13 H (0-4) /hpf Amorphous Sediment Rare H (None) /hpf Urine Bacteria Occasional H (None) /hpf Urine Mucus Rare H (None) /hpf Comments: Chest CT reports increasing bilateral pleural effusions, left greater than right with bibasilar atelectasis. Stable moderate cardiomegaly. Development of anasarca of the soft tissues of the thorax. Assessment and Plan (1) Melena Narrative/Plan: 78-year-old female presenting to the emergency department from subacute rehab with anemia and black stools. Patient is known to GI services and recent workup for liver disease with suspected cirrhosis of the liver. She was scheduled to undergo outpatient upper endoscopy to evaluate healing of recent perforated ulcer, however presenting with black stools and anemia with a hemoglobin of 6.5 on admission. Patient was on anticoagulation for chronic atrial fibrillation, that is on hold. Will plan on upper endoscopy tomorrow. Transfuse as needed. And continue to hold anticoagulation. Current Visit: Yes Status: Acute Code(s): K92.1 - MELENA SNOMED Code(s): 2 459397 (2) Liver disease Current Visit: Yes Status: Acute Code(s): K76.9 - LIVER DISEASE, UNSPECIFIED SNOMED Code(s): 888830691 (3) Atrial fibrillation Current Visit: Yes Status: Acute Code(s): I48.91 - UNSPECIFIED ATRIAL FIBRILLATION SNOMED Code(s): 32094352 (4) Anemia Current Visit: Yes Status: Acute Code(s): D64.9 - ANEMIA, UNSPECIFIED SNOMED Code(s): 590333797 (5) Thrombocytopenia Current Visit: Yes Status: Acute Code(s): D69.6 - THROMBOCYTOPENIA, UNSPECIFIED SNOMED Code(s): 358180001 Plan: 1. Continue symptomatic and supportive care 2. N.p.o. after midnight 3. Daily CBC, transfuse for hemoglobin less than 7 4. Continue to hold anticoagulation 5. Plan for upper endoscopy tomorrow. Plan discussed with patient and who is at the bedside. 6. Rest of medical management per primary medical team Thank you for this consultation, we will continue to follow. Dr. Mariama Dawson I agree with the dictator's note, documented as a scribe by Renea MAZARIEGOS .
[2023-10-22 17:46] LABS: % Iron Saturation 92.39 (12.00-45.00); Iron 85 UG/DL (50-170); Total Iron Binding Capacity 92 UG/DL (228-460)
[2023-10-22 18:15] LABS: Vitamin B12 >3600.0 pg/mL (200.0-944.0)
--- NOTE | 2023-10-23 09:05 | P.PN ---
Subjective Progress Note Date: 10/22/23 Patient pleasant 78-year-old female was sent in because of low hemoglobin of 6.5 at [facility]. Patient does have multiple dark stools. Patient was recently discharged about a week ago from another hospital after she was treated for septic shock and her gallbladder was removed patient is also on metronidazole and vancomycin. Patient is having diarrhea. C. difficile is being obtained. Patient denies any abdominal pain nausea vomiting. Patient recent hemoglobin was around 8. Patient also has acute renal failure with serum creatinine going up to 2.5 last few few months serum creatinine is around 2 before that it was within normal limits patient also has history of heart failure with preserved ejection fraction for which patient is on diuretic. Patient has low blood pressures here apparently may have had a fall is also lightheaded at this time. Patient does have bilateral lower extremity edema is on 3 L of oxygen saturating at 100% which will cut down. Patient denies any or thopnea paroxysmal nocturnal dyspnea at this time I do not have any chest x-ray which will be obtained along with BNP. Patient has chronic atrial fibrillation presently rate controlled and is on Eliquis 2.5 mg and INR is around 2. Patient denies any fatigue. Patient denies any abdominal pain. October 20, 2023 Patient does not have any more episodes of GI bleed anticoagulation is on hold patient blood pressure is in 90s systolic holding off on the diuretic therapy. I will obtain a chest x-ray tomorrow patient will remain n.p.o. for possible upper GI endoscopy tomorrow. Patient serum creatinine remains at 2.86. Nephrology will be consulted. 10/21/2023 Patient is seen in follow-up today with multiple medical consultations following. General surgery following with concerns of possible GI bleed although no bleeding noted and anticoagulation remains on hold. Hemoglobin is stable at this time. Patient was n.p.o. and discussing possible endoscopy on . requesting evaluation from Dr. Baker who has been contacted. Nephrology consulted as well making adjustments to medications as kidney functions remain elevated. Patient is afebrile with no reports of chest pain or shortness of breath. Needs encouragement with meals and not much of an appetite. Patient was reporting to being hungry and per nursing staff was made n.p.o. in the event of possible endoscopy. Will resume diet and discuss further with general surgery regarding intervention. 10/22/2023 Patient is seen in follow-up today with multiple medical consultations following. General surgery following and has contacted GI for further evaluation of possible endoscopic intervention. Patient reporting some dark stools although hemoglobin is stable with no significant bleeding noted. Anticoagulation is on hold and will await EGD report. Patient with nephrology following with continued worsening kidney functions and significant swelling maintained on IV Lasix daily. Patient with significant weakness has not been out of the bed since admission. Would strongly recommend physical therapy daily and up and out of the bed in the chair more often. Elevate lower extremities while at rest Review of systems: Constitutional: Reports of fatigue, denied any fever. Cardio vascular: denied any chest pain, palpitations Gastrointestinal denied any nausea vomiting, not much of an appetite but is eating Pulmonary: Denied any worsening shortness of breath, denies cough Neurologic denied any new focal deficits, reports of weakness All inpatient medications were reviewed and appropriate changes in these m edications as dictated in the interval history and assessment and plan. PHYSICAL EXAMINATION: GENERAL: The patient is alert and oriented x2, elderly appearing, well- developed. Ill-appearing obese HEENT: Pupils are round and equally reacting to light. EOMI. No scleral icterus. Does have conjunctival pallor. Normocephalic, atraumatic. No pharyngeal erythema. No thyromegaly. CARDIOVASCULAR: S1 and S2 muffled PULMONARY: Diminished breath sounds bilaterally otherwise chest is clear to auscultation, no wheezing or crackles. ABDOMEN: Soft, obese, nontender, nondistended, normoactive bowel sounds. No palpable organomegaly. MUSCULOSKELETAL: No joint swelling or deformity. EXTREMITIES: No cyanosis, clubbing, bilateral lower extremity edema with some redness 2-3+ pitting edema of bilateral extremities NEUROLOGICAL: Gross neurological examination did not reveal any focal deficits. Diffusely weak SKIN: No rashes. Assessment: -Acute upper GI bleed with dark stools, continue Protonix twice a day, general surgery following and discuss further with GI about EGD and Dr. Dawson following with plans of endoscopic tomorrow 10/23/2023 with plans of upper endoscopy possibly . Yet affect thank you -Chronic atrial fibrillation patient is presently rate controlled patient was resumed on metoprolol if her blood pressure can tolerate, hold off anticoagulation for above-mentioned reasons -Congestive heart failure chronic diastolic dysfunction, may have mild acute exacerbation will avoid IV fluids but for now because of low blood pressures and dizziness we will hold off on Demadex. Patient is on midodrine as well if needed patient will be started back on midodrine for now we will hold midodrine as well because of concerns of worsening heart failure. Will obtain a chest x- ray tomorrow to make sure patient does not have any pulmonary edema by holding the Demadex -Diarrhea: Resolved C. difficile is negative - acute renal failure probably secondary to diuretics which are being held at this time, hypotension may have contributed to that as well. nephrology following and is being given a dose of Lasix IV daily as patient continues to have worsening kidney functions and significant overload - elevated troponins probably secondary to anemia and acute renal failure, cardiology following for recommendation regarding anticoagulation will repeat 2 more troponins patient does not have any chest pain at this time -Hypomagnesemia, but magnesium was replaced. -Hypotension: Probably secondary to diuretics and GI bleed DVT prophylaxis: No pharmacological anticoagulation because of concerns of significant GI bleed, can use SCDs GI prophylaxis Obesity with a BMI of 30.0 Full code Plan: Patient was made n.p.o. with concerns of possible GI bleed and endoscopic intervention although no immediate plans at this time and tentatively scheduled for . Patient was evaluated by Dr. Baker general surgery and also discussed with GI Dr. Dawson and planning for EGD on 10/23/2023. Continue holding anticoagulation and monitor for any further bleeding or dark stools Anticoagulation remains on hold and hemoglobin is stable with no active bleeding noted Nephrology following with continued worsening kidney functions and oral diuretics currently on hold. Per nephrology patient receiving IV Lasix daily Chest x-ray shows cardiomegaly and mild pulmonary vascular congestion. Await recommendations from nephrology and cardiology regarding diuretics PT/OT therapy to evaluate as patient is significantly weak and has had prolonged hospitalization. Patient came from [facility] with plans on returning. Follow-up on repeat labs and replace electrolytes per protocol Due to multiple complex medical issues, overall prognosis is guarded. The impression and plan of care has been dictated by Kailey Bates, Nurse Practitioner as directed. Dr. Irwin MD I have performed a history and examination and MDM of this patient, discussed the same with the dictator, and agree with the dictator's assessment and plan as written ,documented as a scribe. Based on total visit time, I have performed more than 50% of the visit. Objective - Vital Signs Vital signs: Vital Signs Temp 97.2 F L 10/22/23 04:00 Pulse 85 10/22/23 04:00 Resp 19 10/22/23 04:00 BP 98/65 10/22/23 04:00 Pulse Ox 98 10/22/23 04:00 FiO2 Intake & Output 10/21/23 10/22/23 10/22/23 18:59 06:59 18:59 Intake Total 242 280 Balance 242 280 Weight 79.379 kg Intake: IV 20 40 Invasive Line 1 20 20 Invasive Line 3 20 Oral 222 240 Other: Voiding Method Bedside Commode Bedside Commode Diaper Diaper # Voids 1 2 # Bowel Movements 1 - Labs CBC & Chem 7: 10/22/23 09:46 10/22/23 09:46 Labs: Abnormal Lab Results - Last 24 Hours (Table) 10/21/23 10/21/23 10/21/23 Range/Units 07:09 07:09 23:15 RBC 2.97 L (3.80-5.40) m/uL Hgb 9.1 L (11.4-16.0) gm/dL Hct 27.1 L (34.0-46.0) % RDW 21.8 H (11.5-15.5) % Plt Count 72 L (150-450) k/uL Chloride 112 H (98-107) mmol/L Carbon Dioxide 16 L (22-30) mmol/L BUN 115 H* (7-17) mg/dL Creatinine 2.88 H (0.52-1.04) mg/dL Glucose 63 L (74-99) mg/dL Calcium 8.2 L (8.4-10.2) mg/dL Magnesium 1.5 L (1.6-2.3) mg/dL Urine Appearance Cloudy H (Clear) Urine Blood Small H (Negative) Ur Leukocyte Esterase Large H (Negative) Urine WBC 16 H (0-5) /hpf Ur Squamous Epith Cells 13 H (0-4) /hpf Amorphous Sediment Rare H (None) /hpf Urine Bacteria Occasional H (None) /hpf Urine Mucus Rare H (None) /hpf
--- NOTE | 2023-10-23 10:55 | P.PN ---
Subjective Patient is seen in follow-up for acute kidney injury. Creatinine 3.09 today. On IV Lasix. Has been voiding. Denies any active bleeding. Scheduled for EGD today. Vital signs are stable. General: No acute distress. HEENT: Head exam is unremarkable. On nasal cannula. LUNGS: No audible rhonchi or wheezes. HEART: Rate and Rhythm are regular. ABDOMEN: Nontender. EXTREMITITES: Lower extremities wrapped. 1+ edema. Objective - Vital Signs Vital signs: Vital Signs Temp 97.5 F L 10/23/23 08:35 Pulse 68 10/23/23 08:35 Resp 18 10/23/23 08:35 BP 104/59 10/23/23 08:35 Pulse Ox 92 L 10/23/23 08:35 FiO2 Intake & Output 10/22/23 10/23/23 10/23/23 18:59 06:59 18:59 Intake Total 40 40 20 Output Total 200 Balance -160 40 20 Intake: IV 40 40 20 Invasive Line 1 20 20 10 Invasive Line 3 20 20 10 Oral 0 Output: Urine 200 Other: Voiding Method Bedside Commode Bedside Commode Bedside Commode Diaper Diaper Diaper # Voids 1 1 # Bowel Movements 1 1 - Labs CBC & Chem 7: 10/22/23 09:46 10/22/23 09:46 Labs: Abnormal Lab Results - Last 24 Hours (Table) 10/22/23 10/22/23 Range/Units 09:46 09:46 RBC 2.90 L (3.80-5.40) m/uL Hgb 8.9 L (11.4-16.0) gm/dL Hct 26.6 L (34.0-46.0) % RDW 21.5 H (11.5-15.5) % Plt Count 71 L (150-450) k/uL Eosinophils # (Manual) 2.63 H (0-0.7) k/uL Chloride 113 H (98-107) mmol/L Carbon Dioxide 17 L (22-30) mmol/L BUN 114 H* (7-17) mg/dL Creatinine 3.09 H (0.52-1.04) mg/dL Calcium 8.3 L (8.4-10.2) mg/dL TIBC 92 L (228-460) UG/DL % Saturation 92.39 H (12.00-45.00) Transferrin 65.4 L (204.0-354.0) mg/dL Ferritin 1626.0 H (10.0-291.0) ng/mL Total Bilirubin 4.1 H (0.2-1.3) mg/dL AST 68 H (14-36) U/L Alkaline Phosphatase 169 H (38-126) U/L Total Protein 5.1 L (6.3-8.2) g/dL Albumin 1.8 L (3.5-5.0) g/dL Vitamin B12 >3600.0 H (200.0-944.0) pg/mL Assessment and Plan Plan: Assessment: 1. Acute kidney injury secondary to ATN secondary to acute blood loss anemia and hemodynamic instability. Creatinine 3.09 today. Elevated BUN partially due to GI bleed. Creatinine as low as 1.02 dated September 10, 2023. No proteinuria on UA. No hydronephrosis noted on kidney ultrasound. 2. Acute GI bleed status post blood transfusions. Status post IV DDAVP. On Aranesp. Hemoglobin 8.9. Surgery following. EGD today. 3. Hypomagnesemia from poor intake and diuretic use. Replaced. Better. 4. Metabolic acidosis secondary to acute kidney injury. 5. Acute on chronic diastolic CHF and moderate mitral regurgitation. 6. Volume overload. Improved with diuresis. Plan: Stop IV Lasix. Status post IV albumin given October 22, 2023. EGD today. Avoid nephrotoxins. Continue to monitor renal function and urine output. Strict I's and O's. Add oral bicarb.
--- NOTE | 2023-10-23 11:42 | P.CONS ---
History of Present Illness - Reason for Consult Consult date: 10/23/23 wound care - History of Present Illness This is an 78-year-old patient being seen on 3 S. for a nonhealing ulceration to the right lower extremity. Patient recently had the dressing changed and is refusing to have the dressing reopened for evaluation. There are no pictures in the chart at this time. Information was received by the nurse. Nurse states that the ulceration to the lateral right lower extremity measures approximately 4 x 4 x 0.2 cm with slough and nonviable tissue present minimal granulation noted. Patient also has an ulceration to the anterior right lower extremity in the medial right lower extremity. They have been utilizing honey gel with daily dressing changes. Patient does not tolerate the frequent dressing changes. Patient's past medical history significant for Asthma, heart failure, hyper tension lifelong non-smoker. Review Of Systems: Constitutional: No fever, no chills, no night sweats. No weight change. No weakness, fatigue or lethargy. No daytime sleepiness. Integumentary:reports wounds, no lesions. No rash or pruritus. No unusual bruising. No change in hair or nails. Physical exam: General Appearance: Alert, cooperative, no distress, appears stated age. Skin: See HPI all other Skin color, texture, tugor normal, no rashes or lesions. Neurologic: Alert oriented x3 Assessment: 1. Nonhealing ulceration with fat layer exposure right calf 2. Nonhealing ulceration with fat layer exposure other part of right lower extremity Plan: 1. Apply honey gel, dry gauze roll gauze and secure with paper tape. Change Saturday. Thank you for the consultation any questions please contact the wound care center DNP note has been reviewed and discussed with Dr. Abarca and the impression and plan of care has been directed as dictated. 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 History of Any Multi-Drug Resistant Organisms: None Reported Past Surgical History: Cholecystectomy, Heart Catheterization Additional Past Surgical History / Comment(s): EYE SURGERY DUE TO INJURY, EGD, COLONOSCOPY, BONE MARROW BIOPSY, cataracts, muscle biopsy, Past Anesthesia/Blood Transfusion Reactions: No Reported Reaction Past Psychological History: No Psychological Hx Reported Smoking Status: Never smoker Past Alcohol Use History: Occasional Additional Past Alcohol Use History / Comment(s): "1 glass of wine per day most days but not all". Past Drug Use History: None Reported - Past Family History Sister(s) Family Medical History: Cancer Additional Family Medical History / Comment(s): LEUKEMIA- at age 42 Brother(s) Family Medical History: Cancer Additional Family Medical History / Comment(s): with unknown type CA at age 60s Medications and Allergies Home Medications Medication Instructions Recorded Confirmed Type Albuterol Sulfate [Ventolin HFA] 2 puff INHALATION RT-Q4H PRN 08/03/23 10/19/23 History Famotidine [Pepcid] 20 mg PO BID 08/03/23 10/19/23 History Acetaminophen Tab [Tylenol] 650 mg PO Q6HR PRN 10/19/23 10/19/23 History Apixaban [Eliquis] 2.5 mg PO BID 10/19/23 10/19/23 History Collagenase [Santyl Ointment] 1 applic TOPICAL DAILY PRN 10/19/23 10/19/23 History Collagenase [Santyl Ointment] 1 applic TOPICAL HS 10/19/23 10/19/23 History Docusate [Colace] 100 mg PO BID 10/19/23 10/19/23 History Metoprolol Tartrate [Lopressor] 50 mg PO Q8H 10/19/23 10/19/23 History Midodrine [ProAmatine] 5 mg PO TID 10/19/23 10/19/23 History Potassium Chloride ER [K-Dur 10] 10 meq PO DAILY 10/19/23 10/19/23 History Torsemide [Demadex] 10 mg PO DAILY 10/19/23 10/19/23 History Torsemide [Demadex] 20 mg PO DAILY 10/19/23 10/19/23 History Allergies Allergy/AdvReac Type Severity Reaction Status Date / Time omeprazole [From Prilosec] Allergy Unknown Rash/Hives, Verified 10/19/23 09:55 TONGUE SWELLLING omeprazole magnesium Allergy Unknown Rash/Hives, Verified 10/19/23 09:55 [From Prilosec] TONGUE SWELLLING Penicillins Allergy Unknown Rash/Hives/ Verified 10/19/23 09:55 Itching amlodipine Allergy fide pedal Verified 10/19/23 09:55 edema, loss voice carvedilol Allergy shortness Verified 10/19/23 09:55 of breath lisinopril Allergy Unknown Verified 10/19/23 09:55 Physical Exam Vitals: Vital Signs Temp Pulse Resp BP Pulse Ox 10/23/23 08:35 97.5 F L 68 18 104/59 92 L 10/23/23 07:39 96 10/23/23 03:52 97.9 F 101 H 16 100/65 100 10/23/23 00:00 81 16 93/66 96 10/22/23 20:00 98.1 F 66 17 96/64 96 10/22/23 15:00 64 18 99/56 98 Intake and Output 10/22/23 10/23/23 10/23/23 22:59 06:59 14:59 Intake Total 20 20 20 Output Total 200 Balance -180 20 20 Intake: IV 20 20 20 Invasive Line 1 10 10 10 Invasive Line 3 10 10 10 Oral 0 Output: Urine 200 Other: Voiding Method Bedside Commode Bedside Commode Bedside Commode Diaper Diaper Diaper # Voids 1 # Bowel Movements 1 Results CBC & Chem 7: 10/22/23 09:46 10/22/23 09:46 Labs: Abnormal Lab Results - Last 24 Hours (Table) 10/22/23 10/22/23 Range/Units 09:46 09:46 RBC 2.90 L (3.80-5.40) m/uL Hgb 8.9 L (11.4-16.0) gm/dL Hct 26.6 L (34.0-46.0) % RDW 21.5 H (11.5-15.5) % Plt Count 71 L (150-450) k/uL Eosinophils # (Manual) 2.63 H (0-0.7) k/uL TIBC 92 L (228-460) UG/DL % Saturation 92.39 H (12.00-45.00) Transferrin 65.4 L (204.0-354.0) mg/dL Ferritin 1626.0 H (10.0-291.0) ng/mL Vitamin B12 >3600.0 H (200.0-944.0) pg/mL Assessment and Plan (1) Non-pressure chronic ulcer of right calf with fat layer exposed Current Visit: Yes Status: Acute Code(s): L97.212 - NON-PRESSURE CHRONIC ULCER OF RIGHT CALF W FAT LAYER EXPOSED SNOMED Code(s): 77918031661938131 (2) Non-pressure chronic ulcer of other part of right lower leg with fat layer exposed Current Visit: Yes Status: Acute Code(s): L97.812 - NON-PRS CHRONIC ULCER OTH PRT R LOW LEG W FAT LAYER EXPOSED SNOMED Code(s): 00536168936943729
[2023-10-23 13:07] LABS: African American GFR (CKD) 15 (>60 ml/min/1.73 sqM); Anion Gap 14 mmol/L; Calcium 8.7 mg/dL (8.4-10.2); Carbon Dioxide 14 mmol/L (22-30); Chloride 112 mmol/L (98-107); Glucose 82 mg/dL (74-99); Non-African American GFR(CKD) 13 (>60 ml/min/1.73 sqM); Potassium 3.8 mmol/L (3.5-5.1); Sodium 140 mmol/L (137-145)
[2023-10-23 13:10] LABS: Blood Urea Nitrogen 112 mg/dL (7-17)
[2023-10-23] MEDS ORDERED: LIDOCAINE 1% INJ 10MG/ML (20 ML MDV) ONE (13:51)
[2023-10-23] MEDS ORDERED: PROPOFOL 10 MG/ML 20 ML VIAL IV ONE (13:51)
[2023-10-23] MEDS: SODIUM CHLORIDE 0.9% 500 ML 500 ML IV ONE (13:53)
--- NOTE | 2023-10-23 14:07 | P.PCN ---
Date of Procedure: 10/23/23 Procedure(s) Performed: BRIEF HISTORY: Patient is a 78-year-old, pleasant, white female admitted to hospital with severe symptomatic anemia and a hemoglobin of 6.9 g/dL requiring 2 units of PRBC transfusion. She has been having intermittent black tarry stools for the last few weeks. History of perforated peptic ulcer early part of this year for which she was treated conservatively with antibiotics and drainage catheter and she did well. She has been maintained on Protonix 40 mg daily. She is An upper endoscopy to evaluate severe anemia.. PROCEDURE PERFORMED: Esophagogastroduodenoscopy with biopsy. PREOPERATIVE DIAGNOSIS: Severe symptomatic anemia and history of perforated peptic ulcer disease. IV sedation per anesthesia. PROCEDURE: After informed consent was obtained, the patient was brought into the endoscopy unit. IV sedation was administered by Anesthesia under continuous monitoring. Initially the Olympus GIF-140 video endoscope was inserted into the mouth. Esophagus intubated without any difficulty. It was gradually advanced into the stomach and duodenum and carefully examined. The bulb and the second part of the duodenum revealed duodenitis.. The scope at this time was withdrawn to the stomach, adequately insufflated with air, and upon careful examination, mucosa of the antrum, and mild gastritis and biopsies were done from this area. No evidence of peptic ulcer disease. Mucosa of the body, cardia and the fundus appeared normal. The scope was then withdrawn into the esophagus. The GE junction was located at 39 cm from the incisors. Hiatal hernia noted. The esophagus appeared normal. There were no erosions or ulcerations seen and the patient tolerated the procedure well. IMPRESSION: 1. No active GI bleed. 2. Mild antral gastritis and duodenitis but no evidence of peptic ulcer disease. 3. Small hiatal hernia RECOMMENDATIONS: The findings of this examination were discussed with the patient as well as her family. Await biopsy results. Follow CBC on a daily basis..
--- NOTE | 2023-10-23 14:46 | P.PN ---
Subjective Progress Note Date: 10/23/23 Laurence WATERS The patient is an 78-year-old female patient with a past medical history significant for cardiomyopathy and heart failure and atrial fibrillation as well as multiple comorbid conditions was admitted to the hospital with gastrointestinal bleeding required blood transfusion and currently oral antico agulation is on hold. She was seen by the gastrointestinal service for possible EGD down the line October 21, 2023 The patient was seen and evaluated. She is hemodynamically stable which she is asymptomatic. GI service continues to be on the case for possible EGD. Anticoagulation continues to be on hold. She continues to be in atrial fibrillation with controlled heart rate on the current medical regimen including the current dose of beta-breanne 10/21 Patient is seen today in follow-up. She remains in atrial fibrillation with controlled rate in the 60s to 80s, blood pressure soft 98/65, pulse ox 90% on 2 L nasal cannula. Consult with GI has been added regarding cirrhosis of the liver. She is currently not on anticoagulation due to blood in her stools and anemia. Physical examination: Limited to this examination includes irregular heart rate, chronic 2+ lower extremity edema, wounds with wraps in place to the bilateral lower extremities. 10/22 Patient is scheduled for EGD today with GI. Anticoagulation on hold. Apparently patient is still having dark stools. Telemetry is atrial fibrillation running between 80 and 101. Blood pressure 100/65. Hemoglobin is 8.9. Patient has received 2 units of packed RBCs during this hospitalization. Repeat blood work also reveals BUN of 111, creatinine 3.09. Patient is followed by nephrology. Examination includes irregular heart rate, chronic 2+ lower extremity edema, wounds with wraps in place to the bilateral lower extremities. Assessment Gastrointestinal bleeding Blood loss anemia Atrial fibrillation with controlled heart rate History of cardiomyopathy History of heart failure Plan Continue holding the oral anticoagulation The patient might benefit from left atrial appendage closure device Continue the current dose of beta-breanne Follow-up with the patient Nurse practitioner note has been reviewed, I agree with documented findings and plan of care. Patient was seen and examined. Objective - Vital Signs Vital signs: Vital Signs Temp 97.9 F 10/23/23 03:52 Pulse 101 H 10/23/23 03:52 Resp 16 10/23/23 03:52 BP 100/65 10/23/23 03:52 Pulse Ox 96 10/23/23 07:39 FiO2 Intake & Output 10/22/23 10/23/23 10/23/23 18:59 06:59 18:59 Intake Total 40 40 Output Total 200 Balance -160 40 Intake: IV 40 40 Invasive Line 1 20 20 Invasive Line 3 20 20 Oral 0 Output: Urine 200 Other: Voiding Method Bedside Commode Bedside Commode Diaper Diaper # Voids 1 # Bowel Movements 1 1 - Labs CBC & Chem 7: 10/22/23 09:46 10/23/23 10:20 Labs: Abnormal Lab Results - Last 24 Hours (Table) 10/22/23 10/22/23 Range/Units 09:46 09:46 RBC 2.90 L (3.80-5.40) m/uL Hgb 8.9 L (11.4-16.0) gm/dL Hct 26.6 L (34.0-46.0) % RDW 21.5 H (11.5-15.5) % Plt Count 71 L (150-450) k/uL Eosinophils # (Manual) 2.63 H (0-0.7) k/uL Chloride 113 H (98-107) mmol/L Carbon Dioxide 17 L (22-30) mmol/L BUN 114 H* (7-17) mg/dL Creatinine 3.09 H (0.52-1.04) mg/dL Calcium 8.3 L (8.4-10.2) mg/dL TIBC 92 L (228-460) UG/DL % Saturation 92.39 H (12.00-45.00) Transferrin 65.4 L (204.0-354.0) mg/dL Ferritin 1626.0 H (10.0-291.0) ng/mL Total Bilirubin 4.1 H (0.2-1.3) mg/dL AST 68 H (14-36) U/L Alkaline Phosphatase 169 H (38-126) U/L Total Protein 5.1 L (6.3-8.2) g/dL Albumin 1.8 L (3.5-5.0) g/dL Vitamin B12 >3600.0 H (200.0-944.0) pg/mL
[2023-10-23] MEDS: SODIUM BICARBONATE TAB 650 MG TAB PO SCH (14:53)
[2023-10-23 15:03] LABS: Anisocytosis Moderate; MCH 30.4 pg (25.0-35.0); MCHC 32.5 g/dL (31.0-37.0); MCV 93.6 fL (80.0-100.0); Macrocytosis Slight; Mean Platelet Volume 10.8; RBC 2.07 m/uL (3.80-5.40); RDW 21.7 % (11.5-15.5); WBC 6.7 k/uL (3.8-10.6)
[2023-10-23 15:15] LABS: African American GFR (CKD) 16 (>60 ml/min/1.73 sqM); Anion Gap 9 mmol/L; Calcium 8.5 mg/dL (8.4-10.2); Carbon Dioxide 17 mmol/L (22-30); Chloride 113 mmol/L (98-107); Glucose 75 mg/dL (74-99); HCT 19.3 % (34.0-46.0); HGB 6.3 gm/dL (11.4-16.0); Magnesium 1.9 mg/dL (1.6-2.3); Non-African American GFR(CKD) 14 (>60 ml/min/1.73 sqM); Potassium 3.9 mmol/L (3.5-5.1); Sodium 139 mmol/L (137-145)
[2023-10-23 15:18] LABS: Blood Urea Nitrogen 111 mg/dL (7-17)
--- NOTE | 2023-10-23 16:05 | P.PN ---
Subjective Progress Note Date: 10/23/23 CHIEF COMPLAINT: Anemia HISTORY OF PRESENT ILLNESS: Patient lying in bed comfortably. She denies any abdominal pain. She had been having black stools. She did report of dark stool last night. She is status post EGD with GI service which reported no active GI bleed. Mild antral gastritis and duodenitis. Small hiatal hernia. Hemoglobin 6.3 PHYSICAL EXAM: VITAL SIGNS: Reviewed. GENERAL: Well-developed in no acute distress. ABDOMEN: Soft. Nondistended. Nontender. NEUROLOGIC: Alert and oriented. Cranial nerves II through XII grossly intact. ASSESSMENT: 1. Anemia with melanotic stools. EGD with gastritis and duodenitis 2. Liver cirrhosis PLAN: -Continue PPI -Agree with blood transfusion for hemoglobin of 6.3 -Continue to monitor hemoglobin -Continue to monitor for any signs or symptoms of bleeding Physician Information Systems Supervisor note has been reviewed by physician. Signing provider agrees with the documented findings, assessment, and plan of care. Objective - Vital Signs Vital signs: Vital Signs Temp 93.6 F L 10/23/23 11:50 Pulse 84 10/23/23 15:40 Resp 17 10/23/23 15:40 BP 81/49 10/23/23 15:40 Pulse Ox 99 10/23/23 15:40 FiO2 Intake & Output 10/22/23 10/23/23 10/23/23 18:59 06:59 18:59 Intake Total 40 40 240 Output Total 200 Balance -160 40 240 Intake: IV 40 40 240 Invasive Line 1 20 20 20 Invasive Line 3 20 20 20 Oral 0 Output: Urine 200 Other: Voiding Method Bedside Commode Bedside Commode Bedside Commode Diaper Diaper Diaper # Voids 1 1 # Bowel Movements 1 1 - Labs CBC & Chem 7: 10/23/23 14:27 10/23/23 14:27 Labs: Abnormal Lab Results - Last 24 Hours (Table) 10/22/23 10/23/23 10/23/23 Range/Units 09:46 10:20 14:27 RBC 2.07 L (3.80-5.40) m/uL Hgb 6.3 L* D (11.4-16.0) gm/dL Hct 19.3 L* (34.0-46.0) % RDW 21.7 H (11.5-15.5) % Chloride 112 H (98-107) mmol/L Carbon Dioxide 14 L (22-30) mmol/L BUN 112 H* (7-17) mg/dL Creatinine 3.19 H (0.52-1.04) mg/dL TIBC 92 L (228-460) UG/DL % Saturation 92.39 H (12.00-45.00) Transferrin 65.4 L (204.0-354.0) mg/dL Ferritin 1626.0 H (10.0-291.0) ng/mL Vitamin B12 >3600.0 H (200.0-944.0) pg/mL 10/23/23 Range/Units 14:27 RBC (3.80-5.40) m/uL Hgb (11.4-16.0) gm/dL Hct (34.0-46.0) % RDW (11.5-15.5) % Chloride 113 H (98-107) mmol/L Carbon Dioxide 17 L (22-30) mmol/L BUN 111 H* (7-17) mg/dL Creatinine 3.09 H (0.52-1.04) mg/dL TIBC (228-460) UG/DL % Saturation (12.00-45.00) Transferrin (204.0-354.0) mg/dL Ferritin (10.0-291.0) ng/mL Vitamin B12 (200.0-944.0) pg/mL
[2023-10-23 16:11] LABS: Platelet Count 54 k/uL (150-450)
[2023-10-23] MEDS ORDERED: CEFEPIME 2 GM in SODIUM CHLORIDE 0.9% 100 ML IVPB SCH (17:45)
--- NOTE | 2023-10-23 17:45 | P.PN ---
Subjective Progress Note Date: 10/22/23 Principal diagnosis: Reason for follow-up is right lower extremity wound Patient is a 78-year-old female with a past medical history significant for heart failure with hypertension osteoarthritis with recent admission to the hospital with left lower extremity cellulitis and cholecystitis s/p cholecystectomy patient has been brought to the hospital for evaluation of a nemia hemoglobin of 6.5 I was asked to see the patient because of right lower extremity wound. On today's evaluation that is 10/22/2023,the patient remains to be afebrile, patient is on room air not requiring supplemental oxygen and denies any shortness of breath no chest pain or cough.Patient denies having any nausea or vomiting, no abdominal pain and no diarrhea has been reported Patient had white count 9.4, creatinine 3.09 Objective - Vital Signs Vital signs: Vital Signs Temp 97.4 F L 10/22/23 08:30 Pulse 89 10/22/23 11:05 Resp 17 10/22/23 11:05 BP 101/67 10/22/23 11:05 Pulse Ox 100 10/22/23 11:05 FiO2 Intake & Output 10/21/23 10/22/23 10/22/23 18:59 06:59 18:59 Intake Total 242 280 20 Balance 242 280 20 Weight 79.379 kg Intake: IV 20 40 20 Invasive Line 1 20 20 10 Invasive Line 3 20 10 Oral 222 240 Other: Voiding Method Bedside Commode Bedside Commode Bedside Commode Diaper Diaper Diaper # Voids 1 2 # Bowel Movements 1 - Exam GENERAL DESCRIPTION: An elderly female lying in bed in no distress RESPIRATORY SYSTEM: Unlabored breathing , decreased breath sounds at bases HEART: S1 S2 regular rate and rhythm , ABDOMEN: Soft , no tenderness EXTREMITIES: Right lateral leg wound with some slough tissue no significant redness or drainage - Labs CBC & Chem 7: 10/23/23 14:27 10/23/23 14:27 Labs: Abnormal Lab Results - Last 24 Hours (Table) 10/21/23 10/22/23 10/22/23 Range/Units 23:15 09:46 09:46 RBC 2.90 L (3.80-5.40) m/uL Hgb 8.9 L (11.4-16.0) gm/dL Hct 26.6 L (34.0-46.0) % RDW 21.5 H (11.5-15.5) % Plt Count 71 L (150-450) k/uL Chloride 113 H (98-107) mmol/L Carbon Dioxide 17 L (22-30) mmol/L BUN 114 H* (7-17) mg/dL Creatinine 3.09 H (0.52-1.04) mg/dL Calcium 8.3 L (8.4-10.2) mg/dL Total Bilirubin 4.1 H (0.2-1.3) mg/dL AST 68 H (14-36) U/L Alkaline Phosphatase 169 H (38-126) U/L Total Protein 5.1 L (6.3-8.2) g/dL Albumin 1.8 L (3.5-5.0) g/dL Urine Appearance Cloudy H (Clear) Urine Blood Small H (Negative) Ur Leukocyte Esterase Large H (Negative) Urine WBC 16 H (0-5) /hpf Ur Squamous Epith Cells 13 H (0-4) /hpf Amorphous Sediment Rare H (None) /hpf Urine Bacteria Occasional H (None) /hpf Urine Mucus Rare H (None) /hpf Assessment and Plan (1) Non-pressure chronic ulcer of other part of right lower leg with fat layer exposed Current Visit: Yes Status: Acute Code(s): L97.812 - NON-PRS CHRONIC ULCER OTH PRT R LOW LEG W FAT LAYER EXPOSED SNOMED Code(s): 80775496839283377 (2) Allergy to penicillin Current Visit: No Status: Acute Code(s): Z88.0 - ALLERGY STATUS TO PENICILLIN SNOMED Code(s): 11683704 Plan: 1patient with a right lower extremity wound likely representing a venous stasis ulcer that [facility] and this patient present to the hospital with anemia and GI workup is in progress patient did have mild elevated white count but not running any fever clinic suspicion is low for infected wound. 2local wound care will be switched over to [facility] followed by moist dressing change daily at the bedside multiple question answered Dictation was produced using [employer] dictation software. please excuse any grammatical, word or spelling errors. Time with Patient: Less than 30
--- NOTE | 2023-10-23 17:46 | P.PN ---
Subjective Progress Note Date: 10/23/23 Principal diagnosis: Reason for follow-up is right lower extremity wound,sepsis UTI Patient is a 78-year-old female with a past medical history significant for heart failure with hypertension osteoarthritis with recent admission to the hospital with left lower extremity cellulitis and cholecystitis s/p cholecystectomy patient has been brought to the hospital for evaluation of anemia hemoglobin of 6.5 I was asked to see the patient because of right lower extremity wound. Patient is status post EGD with evidence of mild antral gastritis procedure completed on 10/23/2023. On today's evaluation that is 10/23/2023 patient was noted to be hypothermic this afternoon patient also have low blood pressure complaining of feeling weak patient is currently on 2 L nasal oxygen no vomiting diarrhea no change reported by the nursing staff denies any worsening pain to the right lower extremity. Patient did have a white count of 6.7 hemoglobin was 6.3 creatinine 3.09 Objective - Vital Signs Vital signs: Vital Signs Temp 93.6 F L 10/23/23 11:50 Pulse 82 10/23/23 11:50 Resp 17 10/23/23 11:50 BP 81/48 10/23/23 14:45 Pulse Ox 100 10/23/23 11:50 FiO2 Intake & Output 10/22/23 10/23/23 10/23/23 18:59 06:59 18:59 Intake Total 40 40 240 Output Total 200 Balance -160 40 240 Intake: IV 40 40 240 Invasive Line 1 20 20 20 Invasive Line 3 20 20 20 Oral 0 Output: Urine 200 Other: Voiding Method Bedside Commode Bedside Commode Bedside Commode Diaper Diaper Diaper # Voids 1 1 # Bowel Movements 1 1 - Exam GENERAL DESCRIPTION: An elderly female lying in bed in no distress RESPIRATORY SYSTEM: Unlabored breathing , decreased breath sounds at bases HEART: S1 S2 regular rate and rhythm , ABDOMEN: Soft , no tenderness EXTREMITIES: Right lateral leg wound with some slough tissue no significant redness or drainage - Labs CBC & Chem 7: 10/23/23 14:27 10/23/23 14:27 Labs: Abnormal Lab Results - Last 24 Hours (Table) 10/22/23 10/22/23 10/23/23 Range/Units 09:46 09:46 10:20 Eosinophils # (Manual) 2.63 H (0-0.7) k/uL Chloride 112 H (98-107) mmol/L Carbon Dioxide 14 L (22-30) mmol/L BUN 112 H* (7-17) mg/dL Creatinine 3.19 H (0.52-1.04) mg/dL TIBC 92 L (228-460) UG/DL % Saturation 92.39 H (12.00-45.00) Transferrin 65.4 L (204.0-354.0) mg/dL Ferritin 1626.0 H (10.0-291.0) ng/mL Vitamin B12 >3600.0 H (200.0-944.0) pg/mL Assessment and Plan (1) SIRS (systemic inflammatory response syndrome) Current Visit: Yes Status: Acute Code(s): R65.10 - SIRS OF NON-INFECTIOUS ORIGIN W/O ACUTE ORGAN DYSFUNCTION SNOMED Code(s): 788425988 (2) UTI (urinary tract infection) Current Visit: Yes Status: Acute Code(s): N39.0 - URINARY TRACT INFECTION, SITE NOT SPECIFIED SNOMED Code(s): 42202006 (3) Non-pressure chronic ulcer of other part of right lower leg with fat layer exposed Current Visit: Yes Status: Acute Code(s): L97.812 - NON-PRS CHRONIC ULCER OTH PRT R LOW LEG W FAT LAYER EXPOSED SNOMED Code(s): 88878921942783578 (4) Allergy to penicillin Current Visit: No Status: Acute Code(s): Z88.0 - ALLERGY STATUS TO PENICILLIN SNOMED Code(s): 34265055 Plan: 1patient with a right lower extremity wound likely representing a venous stasis ulcer that has been recently [facility] the [facility] and this patient present to the hospital with anemia and GI workup is in progress patient did h ave mild elevated white count but not running any fever clinic suspicion is low for infected wound. 2local wound care will be switched over to [facility] followed by moist dressing change daily 3patient was noted to have significant change in her clinical condition with hypotension hypothermia we will repeat blood culture check a CRP procalcitonin UA empirically add cefepime while waiting for the culture to finalize at the bedside multiple question answered Dictation was produced using [employer] software. please excuse any grammatical, word or spelling errors. Time with Patient: Greater than 30
[2023-10-23] MEDS: CEFEPIME 1 GM in SODIUM CHLORIDE 0.9% 50 ML IVPB SCH (18:22)
[2023-10-24 08:19] LABS: Anisocytosis Moderate; HCT 24.5 % (34.0-46.0); HGB 8.2 gm/dL (11.4-16.0); MCH 30.7 pg (25.0-35.0); MCHC 33.5 g/dL (31.0-37.0); MCV 91.8 fL (80.0-100.0); Macrocytosis Slight; Mean Platelet Volume 10.7; RBC 2.66 m/uL (3.80-5.40); RDW 20.5 % (11.5-15.5)
[2023-10-24 08:20] LABS: Platelet Count 53 k/uL (150-450)
[2023-10-24 08:46] LABS: Metamyelocytes % 1 %; Neutrophils % (M) 55 %; Nucleated Red Blood Cells 1 /100 WBC (0-0); Total Cells Counted 100
[2023-10-24 08:47] LABS: Eosinophils # (M) 2.15 k/uL (0-0.7); Lymphocytes # (M) 0.81 k/uL (1.0-4.8); Metamyelocytes # (M) 0.07 k/uL (0); Neutrophils # (M) 4.07 k/uL (1.3-7.7); Target Cells Present; WBC 7.4 k/uL (3.8-10.6)
[2023-10-24 08:57] LABS: African American GFR (CKD) 15 (>60 ml/min/1.73 sqM); Anion Gap 10 mmol/L; Calcium 8.8 mg/dL (8.4-10.2); Carbon Dioxide 17 mmol/L (22-30); Chloride 113 mmol/L (98-107); Glucose 83 mg/dL (74-99); Magnesium 1.9 mg/dL (1.6-2.3); Non-African American GFR(CKD) 13 (>60 ml/min/1.73 sqM); Potassium 3.8 mmol/L (3.5-5.1); Sodium 140 mmol/L (137-145)
[2023-10-24 09:07] LABS: Blood Urea Nitrogen 110 mg/dL (7-17)
--- NOTE | 2023-10-24 09:32 | P.PN ---
Subjective Progress Note Date: 10/23/23 Patient pleasant 78-year-old female was sent in because of low hemoglobin of 6.5 at [facility]. Patient does have multiple dark stools. Patient was recently discharged about a week ago from another hospital after she was treated for septic shock and her gallbladder was removed patient is also on metronidazole and vancomycin. Patient is having diarrhea. C. difficile is being obtained. Patient denies any abdominal pain nausea vomiting. Patient recent hemoglobin was around 8. Patient also has acute renal failure with serum creatinine going up to 2.5 last few few months serum creatinine is around 2 before that it was within normal limits patient also has history of heart failure with preserved ejection fraction for which patient is on diuretic. Patient has low blood pressures here apparently may have had a fall is also lightheaded at this time. Patient does have bilateral lower extremity edema is on 3 L of oxygen saturating at 100% which will cut down. Patient denies any or thopnea paroxysmal nocturnal dyspnea at this time I do not have any chest x-ray which will be obtained along with BNP. Patient has chronic atrial fibrillation presently rate controlled and is on Eliquis 2.5 mg and INR is around 2. Patient denies any fatigue. Patient denies any abdominal pain. October 20, 2023 Patient does not have any more episodes of GI bleed anticoagulation is on hold patient blood pressure is in 90s systolic holding off on the diuretic therapy. I will obtain a chest x-ray tomorrow patient will remain n.p.o. for possible upper GI endoscopy tomorrow. Patient serum creatinine remains at 2.86. Nephrology will be consulted. 10/21/2023 Patient is seen in follow-up today with multiple medical consultations following. General surgery following with concerns of possible GI bleed although no bleeding noted and anticoagulation remains on hold. Hemoglobin is stable at this time. Patient was n.p.o. and discussing possible endoscopy on . requesting evaluation from Dr. Baker who has been contacted. Nephrology consulted as well making adjustments to medications as kidney functions remain elevated. Patient is afebrile with no reports of chest pain or shortness of breath. Needs encouragement with meals and not much of an appetite. Patient was reporting to being hungry and per nursing staff was made n.p.o. in the event of possible endoscopy. Will resume diet and discuss further with general surgery regarding intervention. 10/22/2023 Patient is seen in follow-up today with multiple medical consultations following. General surgery following and has contacted GI for further evaluation of possible endoscopic intervention. Patient reporting some dark stools although hemoglobin is stable with no significant bleeding noted. Anticoagulation is on hold and will await EGD report. Patient with nephrology following with continued worsening kidney functions and significant swelling maintained on IV Lasix daily. Patient with significant weakness has not been out of the bed since admission. Would strongly recommend physical therapy daily and up and out of the bed in the chair more often. Elevate lower extremities while at rest 10/23/2023 Patient is seen in follow-up this morning currently n.p.o. as patient is scheduled to undergo EGD with GI Dr. Thorpe today. Patient reports to being slightly anxious although agreeable to proceed. A.m. labs pending and patient also per nursing staff is noted to have low temp and blood pressures have been on the lower side. Anticoagulation is on hold and will discuss with GI and other consultations regarding resuming. Patient to continue on IV Lasix daily and is showing some improvements in overall swelling and edema although continues to have elevated kidney functions. Nephrology is following. Review of systems: Constitutional: Reports of fatigue, denied any fever. Cardio vascular: denied any chest pain, palpitations Gastrointestinal denied any nausea vomiting, not much of an appetite but is eating Pulmonary: Denied any worsening shortness of breath, denies cough Neurologic denied any new focal deficits, reports of weakness All inpatient medications were reviewed and appropriate changes in these medications as dictated in the interval history and assessment and plan. PHYSICAL EXAMINATION: GENERAL: The patient is alert and oriented x2, elderly appearing, well- developed. Ill-appearing obese HEENT: Pupils are round and equally reacting to light. EOMI. No scleral icterus. Does have conjunctival pallor. Normocephalic, atraumatic. No pharyngeal erythema. No thyromegaly. CARDIOVASCULAR: S1 and S2 muffled PULMONARY: Diminished breath sounds bilaterally otherwise chest is clear to auscultation, no wheezing or crackles. ABDOMEN: Soft, obese, nontender, nondistended, normoactive bowel sounds. No palpable organomegaly. MUSCULOSKELETAL: No joint swelling or deformity. EXTREMITIES: No cyanosis, clubbing, bilateral lower extremity edema with some redness 2-3+ pitting edema of bilateral extremities NEUROLOGICAL: Gross neurological examination did not reveal any focal deficits. Diffusely weak SKIN: No rashes. Assessment: -Acute upper GI bleed with dark stools, continue Protonix twice a day, general surgery following and discuss further with GI about EGD and Dr. Dawson following with plans of endoscopic tomorrow 10/23/2023 with plans of upper endoscopy possibly . Yet affect thank you -Chronic atrial fibrillation patient is presently rate controlled patient was resumed on metoprolol if her blood pressure can tolerate, hold off anticoagulation for above-mentioned reasons -Congestive heart failure chronic diastolic dysfunction, may have mild acute exacerbation will avoid IV fluids but for now because of low blood pressures and dizziness we will hold off on Demadex. Patient is on midodrine as well if needed patient will be started back on midodrine for now we will hold midodrine as well because of concerns of worsening heart failure. Will obtain a chest x- ray tomorrow to make sure patient does not have any pulmonary edema by holding the Demadex -Diarrhea: Resolved C. difficile is negative - acute renal failure probably secondary to diuretics which are being held at this time, hypotension may have contributed to that as well. nephrology follow ing and is being given a dose of Lasix IV daily as patient continues to have worsening kidney functions and significant overload - elevated troponins probably secondary to anemia and acute renal failure, cardiology following for recommendation regarding anticoagulation will repeat 2 more troponins patient does not have any chest pain at this time -Hypomagnesemia, but magnesium was replaced. -Hypotension: Probably secondary to diuretics and GI bleed DVT prophylaxis: No pharmacological anticoagulation because of concerns of significant GI bleed, can use SCDs GI prophylaxis Obesity with a BMI of 30.0 Full code Plan: Patient is currently n.p.o. with concerns of possible GI bleed and endoscopic intervention EGD scheduled for today Anticoagulation remains on hold and hemoglobin a.m. labs were initially pending although found to be less than 7 and will transfuse 1 unit of PRBC Patient's blood pressure on the lower side and also patient's temp has been running low, Beatriz hugger applied and will continue monitoring blood pressures. Expect to improve after negative blood Nephrology following with continued worsening kidney functions and oral diuretics currently on hold. Per nephrology patient receiving IV Lasix daily Chest x-ray shows cardiomegaly and mild pulmonary vascular congestion. Await recommendations from nephrology and cardiology regarding diuretics PT/OT therapy to evaluate as patient is significantly weak and has had prolonged hospitalization. Patient came from [facility] with plans on returning. Follow-up on repeat labs and replace electrolytes per protocol Due to multiple complex medical issues, overall prognosis is guarded. The impression and plan of care has been dictated by Kailey Bates, Nurse Practitioner as directed. Dr. Irwin MD I have performed a history and examination and MDM of this patient, discussed the same with the dictator, and agree with the dictator's assessment and plan as written ,documented as a scribe. Based on total visit time, I have performed more than 50% of the visit. Objective - Vital Signs Vital signs: Vital Signs Temp 97.9 F 10/23/23 03:52 Pulse 101 H 10/23/23 03:52 Resp 16 10/23/23 03:52 BP 100/65 10/23/23 03:52 Pulse Ox 96 10/23/23 07:39 FiO2 Intake & Output 10/22/23 10/23/23 10/23/23 18:59 06:59 18:59 Intake Total 40 40 Output Total 200 Balance -160 40 Intake: IV 40 40 Invasive Line 1 20 20 Invasive Line 3 20 20 Oral 0 Output: Urine 200 Other: Voiding Method Bedside Commode Bedside Commode Diaper Diaper # Voids 1 # Bowel Movements 1 1 - Labs CBC & Chem 7: 10/24/23 06:51 10/24/23 06:51 Labs: Abnormal Lab Results - Last 24 Hours (Table) 10/22/23 10/22/23 Range/Units 09:46 09:46 RBC 2.90 L (3.80-5.40) m/uL Hgb 8.9 L (11.4-16.0) gm/dL Hct 26.6 L (34.0-46.0) % RDW 21.5 H (11.5-15.5) % Plt Count 71 L (150-450) k/uL Eosinophils # (Manual) 2.63 H (0-0.7) k/uL Chloride 113 H (98-107) mmol/L Carbon Dioxide 17 L (22-30) mmol/L BUN 114 H* (7-17) mg/dL Creatinine 3.09 H (0.52-1.04) mg/dL Calcium 8.3 L (8.4-10.2) mg/dL TIBC 92 L (228-460) UG/DL % Saturation 92.39 H (12.00-45.00) Transferrin 65.4 L (204.0-354.0) mg/dL Ferritin 1626.0 H (10.0-291.0) ng/mL Total Bilirubin 4.1 H (0.2-1.3) mg/dL AST 68 H (14-36) U/L Alkaline Phosphatase 169 H (38-126) U/L Total Protein 5.1 L (6.3-8.2) g/dL Albumin 1.8 L (3.5-5.0) g/dL Vitamin B12 >3600.0 H (200.0-944.0) pg/mL
--- NOTE | 2023-10-24 10:57 | P.PN ---
Subjective Patient is seen in follow-up for acute kidney injury. Creatinine 3.26 today. Has been voiding. Denies any active bleeding. Received blood transfusions this admission. Hemoglobin 8.2 today. Vital signs are stable. General: No acute distress. HEENT: Head exam is unremarkable. On nasal cannula. LUNGS: No audible rhonchi or wheezes. HEART: Rate and Rhythm are regular. ABDOMEN: Nontender. EXTREMITITES: Lower extremities wrapped. Drainage noted. 1+ edema. Objective - Vital Signs Vital signs: Vital Signs Temp 97.4 F L 10/24/23 07:39 Pulse 81 10/24/23 07:39 Resp 16 10/24/23 07:39 BP 108/61 10/24/23 07:39 Pulse Ox 100 10/24/23 07:39 FiO2 Intake & Output 10/23/23 10/24/23 10/24/23 18:59 06:59 18:59 Intake Total 462 350 Balance 462 350 Intake: IV 240 40 Invasive Line 1 20 20 Invasive Line 3 20 20 Oral 222 0 Blood Product 0 310 Rc As-1 Unit 0 310 [id number] Other: Voiding Method Bedside Commode Bedside Commode Bedside Commode Diaper Diaper Diaper # Voids 1 - Labs CBC & Chem 7: 10/24/23 06:51 10/24/23 06:51 Labs: Abnormal Lab Results - Last 24 Hours (Table) 10/23/23 10/23/23 10/23/23 Range/Units 10:20 14:27 14:27 RBC 2.07 L (3.80-5.40) m/uL Hgb 6.3 L* D (11.4-16.0) gm/dL Hct 19.3 L* (34.0-46.0) % RDW 21.7 H (11.5-15.5) % Plt Count 54 L (150-450) k/uL Lymphocytes # (Manual) (1.0-4.8) k/uL Eosinophils # (Manual) (0-0.7) k/uL Metamyelocytes # (Man) (0) k/uL Nucleated RBCs (0-0) /100 WBC Chloride 112 H 113 H (98-107) mmol/L Carbon Dioxide 14 L 17 L (22-30) mmol/L BUN 112 H* 111 H* (7-17) mg/dL Creatinine 3.19 H 3.09 H (0.52-1.04) mg/dL C-Reactive Protein (<1.0) mg/dL Procalcitonin (0.02-0.09) ng/mL Crossmatch 10/23/23 10/23/23 10/23/23 Range/Units 14:27 14:27 15:34 RBC (3.80-5.40) m/uL Hgb (11.4-16.0) gm/dL Hct (34.0-46.0) % RDW (11.5-15.5) % Plt Count (150-450) k/uL Lymphocytes # (Manual) (1.0-4.8) k/uL Eosinophils # (Manual) (0-0.7) k/uL Metamyelocytes # (Man) (0) k/uL Nucleated RBCs (0-0) /100 WBC Chloride (98-107) mmol/L Carbon Dioxide (22-30) mmol/L BUN (7-17) mg/dL Creatinine (0.52-1.04) mg/dL C-Reactive Protein 1.9 H (<1.0) mg/dL Procalcitonin 0.43 H (0.02-0.09) ng/mL Crossmatch See Detail 10/24/23 10/24/23 Range/Units 06:51 06:51 RBC 2.66 L (3.80-5.40) m/uL Hgb 8.2 L D (11.4-16.0) gm/dL Hct 24.5 L (34.0-46.0) % RDW 20.5 H (11.5-15.5) % Plt Count 53 L (150-450) k/uL Lymphocytes # (Manual) 0.81 L (1.0-4.8) k/uL Eosinophils # (Manual) 2.15 H (0-0.7) k/uL Metamyelocytes # (Man) 0.07 H (0) k/uL Nucleated RBCs 1 H (0-0) /100 WBC Chloride 113 H (98-107) mmol/L Carbon Dioxide 17 L (22-30) mmol/L BUN 110 H* (7-17) mg/dL Creatinine 3.26 H (0.52-1.04) mg/dL C-Reactive Protein (<1.0) mg/dL Procalcitonin (0.02-0.09) ng/mL Crossmatch Assessment and Plan Plan: Assessment: 1. Acute kidney injury secondary to ATN secondary to acute blood loss anemia and hemodynamic instability. Creatinine 3.26 today. Elevated BUN partially due to GI bleed. Creatinine as low as 1.02 dated September 10, 2023. No proteinuria on UA. No hydronephrosis noted on kidney ultrasound. 2. Acute GI bleed status post blood transfusions. Status post IV DDAVP. On Aranesp. Hemoglobin 8.2. Surgery following. EGD showed no active GI bleed. 3. Hypomagnesemia from poor intake and diuretic use. Replaced. Better. 4. Metabolic acidosis secondary to acute kidney injury. On oral bicarb. 5. Acute on chronic diastolic CHF and moderate mitral regurgitation. 6. Volume overload. 7. Liver cirrhosis. Plan: Resume Lasix 40 mg IV twice daily. Status post IV albumin given October 22, 2023. Avoid nephrotoxins. Continue to monitor renal function and urine output. Strict I's and O's.
[2023-10-24] MEDS: FUROSEMIDE 10 MG/ML 4 ML VIAL IV SCH (11:26)
[2023-10-24] MEDS: SODIUM BICARB 8.4% 50 ML SYR (1 MEQ/ML) IV STA (11:26)
[2023-10-24 11:39] LABS: Appearance,Urine Clear (Clear); Bacteria,Urine Rare /hpf; Bilirubin,Urine Negative (Negative); Blood,Urine Small (Negative); Color,Urine Light Yellow; Glucose,Urine (UA) Negative (Negative); Ketones,Urine Negative (Negative); Leukocyte Esterase,Urine Moderate (Negative); Nitrite,Urine Negative (Negative); Protein,Urine Trace (Negative); RBC,Urine 3 /hpf (0-5); Squamous Epithelial Cell,Urine 3 /hpf (0-4); Urobilinogen,Urine <2.0 mg/dL (<2.0); WBC,Urine 11 /hpf (0-5)
--- NOTE | 2023-10-24 13:59 | P.PN ---
Subjective Progress Note Date: 10/24/23 CHIEF COMPLAINT: Anemia HISTORY OF PRESENT ILLNESS: Patient lying in bed comfortably. She denies any abdominal pain. Patient had a bowel movement during the night. No melanotic stools reported. She is status post EGD with GI service which reported no active GI bleed. Mild antral gastritis and duodenitis. Small hiatal hernia. Patient is status post 1 unit of blood yesterday hemoglobin has gone up from 6.3-8.2 PHYSICAL EXAM: VITAL SIGNS: Reviewed. GENERAL: Well-developed in no acute distress. ABDOMEN: Soft. Nondistended. Nontender. ASSESSMENT: 1. Anemia with melanotic stools. EGD with gastritis and duodenitis 2. Liver cirrhosis PLAN: -Continue PPI -Continue to monitor hemoglobin -Continue to monitor for any signs or symptoms of bleeding Physician D[employer] note has been reviewed by physician. Signing provider agrees with the documented findings, assessment, and plan of care. I have personally seen and examined the patient, reviewed the BRAND SALES CONSULTANT /PAs history, exam and MDM and agree with the assessment and plan as written. Based on total visit time, I have performed more than 50% of the visit. As above: Patient doing well. Hemoglobin stable. EGD results noted. Will sign off. Please call if needed. Objective - Vital Signs Vital signs: Vital Signs Temp 95.2 F L 10/24/23 11:12 Pulse 85 10/24/23 13:21 Resp 16 10/24/23 11:16 BP 109/65 10/24/23 11:16 Pulse Ox 99 10/24/23 11:16 FiO2 Intake & Output 10/23/23 10/24/23 10/24/23 18:59 06:59 18:59 Intake Total 462 350 100 Balance 462 350 100 Weight 79.379 kg Intake: IV 240 40 Invasive Line 1 20 20 Invasive Line 3 20 20 Oral 222 0 100 Blood Product 0 310 Rc As-1 Unit 0 310 [id number] Other: Voiding Method Bedside Commode Bedside Commode Bedside Commode Diaper Diaper Bedpan Diaper # Voids 1 - Labs CBC & Chem 7: 10/24/23 06:51 10/24/23 06:51 Labs: Abnormal Lab Results - Last 24 Hours (Table) 10/23/23 10/23/23 10/23/23 Range/Units 14:27 14:27 14:27 RBC 2.07 L (3.80-5.40) m/uL Hgb 6.3 L* D (11.4-16.0) gm/dL Hct 19.3 L* (34.0-46.0) % RDW 21.7 H (11.5-15.5) % Plt Count 54 L (150-450) k/uL Lymphocytes # (Manual) (1.0-4.8) k/uL Eosinophils # (Manual) (0-0.7) k/uL Metamyelocytes # (Man) (0) k/uL Nucleated RBCs (0-0) /100 WBC Chloride 113 H (98-107) mmol/L Carbon Dioxide 17 L (22-30) mmol/L BUN 111 H* (7-17) mg/dL Creatinine 3.09 H (0.52-1.04) mg/dL C-Reactive Protein 1.9 H (<1.0) mg/dL Procalcitonin (0.02-0.09) ng/mL Urine Protein (Negative) Urine Blood (Negative) Ur Leukocyte Esterase (Negative) Urine WBC (0-5) /hpf Urine Bacteria (None) /hpf Crossmatch 10/23/23 10/23/23 10/24/23 Range/Units 14:27 15:34 06:51 RBC 2.66 L (3.80-5.40) m/uL Hgb 8.2 L D (11.4-16.0) gm/dL Hct 24.5 L (34.0-46.0) % RDW 20.5 H (11.5-15.5) % Plt Count 53 L (150-450) k/uL Lymphocytes # (Manual) 0.81 L (1.0-4.8) k/uL Eosinophils # (Manual) 2.15 H (0-0.7) k/uL Metamyelocytes # (Man) 0.07 H (0) k/uL Nucleated RBCs 1 H (0-0) /100 WBC Chloride (98-107) mmol/L Carbon Dioxide (22-30) mmol/L BUN (7-17) mg/dL Creatinine (0.52-1.04) mg/dL C-Reactive Protein (<1.0) mg/dL Procalcitonin 0.43 H (0.02-0.09) ng/mL Urine Protein (Negative) Urine Blood (Negative) Ur Leukocyte Esterase (Negative) Urine WBC (0-5) /hpf Urine Bacteria (None) /hpf Crossmatch See Detail 10/24/23 10/24/23 Range/Units 06:51 11:05 RBC (3.80-5.40) m/uL Hgb (11.4-16.0) gm/dL Hct (34.0-46.0) % RDW (11.5-15.5) % Plt Count (150-450) k/uL Lymphocytes # (Manual) (1.0-4.8) k/uL Eosinophils # (Manual) (0-0.7) k/uL Metamyelocytes # (Man) (0) k/uL Nucleated RBCs (0-0) /100 WBC Chloride 113 H (98-107) mmol/L Carbon Dioxide 17 L (22-30) mmol/L BUN 110 H* (7-17) mg/dL Creatinine 3.26 H (0.52-1.04) mg/dL C-Reactive Protein (<1.0) mg/dL Procalcitonin (0.02-0.09) ng/mL Urine Protein Trace H (Negative) Urine Blood Small H (Negative) Ur Leukocyte Esterase Moderate H (Negative) Urine WBC 11 H (0-5) /hpf Urine Bacteria Rare H (None) /hpf Crossmatch
--- NOTE | 2023-10-24 13:59 | P.PN ---
Subjective Progress Note Date: 10/24/23 Laurence WATERS The patient is an 78-year-old female patient with a past medical history significant for cardiomyopathy and heart failure and atrial fibrillation as well as multiple comorbid conditions was admitted to the hospital with gastrointestinal bleeding required blood transfusion and currently oral antico agulation is on hold. She was seen by the gastrointestinal service for possible EGD down the line October 21, 2023 The patient was seen and evaluated. She is hemodynamically stable which she is asymptomatic. GI service continues to be on the case for possible EGD. Anticoagulation continues to be on hold. She continues to be in atrial fibrillation with controlled heart rate on the current medical regimen including the current dose of beta-breanne 10/21 Patient is seen today in follow-up. She remains in atrial fibrillation with controlled rate in the 60s to 80s, blood pressure soft 98/65, pulse ox 90% on 2 L nasal cannula. Consult with GI has been added regarding cirrhosis of the liver. She is currently not on anticoagulation due to blood in her stools and anemia. Physical examination: Limited to this examination includes irregular heart rate, chronic 2+ lower extremity edema, wounds with wraps in place to the bilateral lower extremities. 10/22 Patient is scheduled for EGD today with GI. Anticoagulation on hold. Apparently patient is still having dark stools. Telemetry is atrial fibrillation running between 80 and 101. Blood pressure 100/65. Hemoglobin is 8.9. Patient has received 2 units of packed RBCs during this hospitalization. Repeat blood work also reveals BUN of 111, creatinine 3.09. Patient is followed by nephrology. Examination includes irregular heart rate, chronic 2+ lower extremity edema, wounds with wraps in place to the bilateral lower extremities. 10/23 Patient is seen today in follow-up. She states that she had some blood last evening but the nurse states she had 1 bowel movement and it was not noted to have blood in it. She underwent EGD yesterday with GI which revealed gastritis. No active bleeding. At this point, we will plan to continue to hold anticoagulation. Blood pressure 109/65, heart rate 85, pulse ox 99% on 2 L nasal cannula. Repeat blood work reveals hemoglobin of 8.2, platelet count 53. Renal function continues to worsen with BUN 110 and creatinine 3.26. Patient is status post transfusion of a total of 3 units packed RBCs. Patient remains in atrial fibrillation Assessment Gastrointestinal bleeding Blood loss anemia Atrial fibrillation with controlled heart rate History of cardiomyopathy History of heart failure Plan Continue holding the oral anticoagulation The patient might benefit from left atrial appendage closure device Continue the current dose of beta-breanne Follow-up with the patient Nurse practitioner note has been reviewed, I agree with documented findings and plan of care. Patient was seen and examined. Objective - Vital Signs Vital signs: Vital Signs Temp 97.4 F L 10/24/23 07:39 Pulse 81 10/24/23 07:39 Resp 16 10/24/23 07:39 BP 108/61 10/24/23 07:39 Pulse Ox 100 10/24/23 07:39 FiO2 Intake & Output 10/23/23 10/24/23 10/24/23 18:59 06:59 18:59 Intake Total 462 350 Balance 462 350 Intake: IV 240 40 Invasive Line 1 20 20 Invasive Line 3 20 20 Oral 222 0 Blood Product 0 310 Rc As-1 Unit 0 310 [id number] Other: Voiding Method Bedside Commode Bedside Commode Diaper Diaper # Voids 1 - Labs CBC & Chem 7: 10/24/23 06:51 10/24/23 06:51 Labs: Abnormal Lab Results - Last 24 Hours (Table) 10/23/23 10/23/23 10/23/23 Range/Units 10:20 14:27 14:27 RBC 2.07 L (3.80-5.40) m/uL Hgb 6.3 L* D (11.4-16.0) gm/dL Hct 19.3 L* (34.0-46.0) % RDW 21.7 H (11.5-15.5) % Plt Count 54 L (150-450) k/uL Chloride 112 H 113 H (98-107) mmol/L Carbon Dioxide 14 L 17 L (22-30) mmol/L BUN 112 H* 111 H* (7-17) mg/dL Creatinine 3.19 H 3.09 H (0.52-1.04) mg/dL C-Reactive Protein (<1.0) mg/dL Procalcitonin (0.02-0.09) ng/mL Crossmatch 10/23/23 10/23/23 10/23/23 Range/Units 14:27 14:27 15:34 RBC (3.80-5.40) m/uL Hgb (11.4-16.0) gm/dL Hct (34.0-46.0) % RDW (11.5-15.5) % Plt Count (150-450) k/uL Chloride (98-107) mmol/L Carbon Dioxide (22-30) mmol/L BUN (7-17) mg/dL Creatinine (0.52-1.04) mg/dL C-Reactive Protein 1.9 H (<1.0) mg/dL Procalcitonin 0.43 H (0.02-0.09) ng/mL Crossmatch See Detail
--- NOTE | 2023-10-24 15:54 | P.PN ---
Subjective Progress Note Date: 10/24/23 Principal diagnosis: Reason for follow-up is right lower extremity wound,sepsis UTI Patient is a 78-year-old female with a past medical history significant for heart failure with hypertension osteoarthritis with recent admission to the hospital with left lower extremity cellulitis and cholecystitis s/p cholecystectomy patient has been brought to the hospital for evaluation of anemia hemoglobin of 6.5 I was asked to see the patient because of right lower extremity wound. Patient is status post EGD with evidence of mild antral gastritis procedure completed on 10/23/2023. On today's evaluation that is 10/24/2023, Patient is afebrile patient is currently on 2 L nasal cannula oxygen and denies having any shortness of breath, the patient denies any chest pain or cough, the patient denies any nausea vomiting did not have any abdominal pain and no diarrhea, denies any worsening pain to the right leg wound. Patient white count is 7.4, creatinine 3.26 culture repeat yesterday currently pending Objective - Vital Signs Vital signs: Vital Signs Temp 95.2 F L 10/24/23 11:12 Pulse 85 10/24/23 11:16 Resp 16 10/24/23 11:16 BP 109/65 10/24/23 11:16 Pulse Ox 99 10/24/23 11:16 FiO2 Intake & Output 10/23/23 10/24/23 10/24/23 18:59 06:59 18:59 Intake Total 462 350 100 Balance 462 350 100 Weight 79.379 kg Intake: IV 240 40 Invasive Line 1 20 20 Invasive Line 3 20 20 Oral 222 0 100 Blood Product 0 310 Rc As-1 Unit 0 310 [id number] Other: Voiding Method Bedside Commode Bedside Commode Bedside Commode Diaper Diaper Diaper # Voids 1 - Exam GENERAL DESCRIPTION: An elderly female lying in bed in no distress RESPIRATORY SYSTEM: Unlabored breathing , decreased breath sounds at bases HEART: S1 S2 regular rate and rhythm , ABDOMEN: Soft , no tenderness EXTREMITIES: Right lateral leg wound with some slough tissue no significant redness or drainage - Labs CBC & Chem 7: 10/24/23 06:51 10/24/23 06:51 Labs: Abnormal Lab Results - Last 24 Hours (Table) 10/23/23 10/23/23 10/23/23 Range/Units 14:27 14:27 14:27 RBC 2.07 L (3.80-5.40) m/uL Hgb 6.3 L* D (11.4-16.0) gm/dL Hct 19.3 L* (34.0-46.0) % RDW 21.7 H (11.5-15.5) % Plt Count 54 L (150-450) k/uL Lymphocytes # (Manual) (1.0-4.8) k/uL Eosinophils # (Manual) (0-0.7) k/uL Metamyelocytes # (Man) (0) k/uL Nucleated RBCs (0-0) /100 WBC Chloride 113 H (98-107) mmol/L Carbon Dioxide 17 L (22-30) mmol/L BUN 111 H* (7-17) mg/dL Creatinine 3.09 H (0.52-1.04) mg/dL C-Reactive Protein 1.9 H (<1.0) mg/dL Procalcitonin (0.02-0.09) ng/mL Urine Protein (Negative) Urine Blood (Negative) Ur Leukocyte Esterase (Negative) Urine WBC (0-5) /hpf Urine Bacteria (None) /hpf Crossmatch 10/23/23 10/23/23 10/24/23 Range/Units 14:27 15:34 06:51 RBC 2.66 L (3.80-5.40) m/uL Hgb 8.2 L D (11.4-16.0) gm/dL Hct 24.5 L (34.0-46.0) % RDW 20.5 H (11.5-15.5) % Plt Count 53 L (150-450) k/uL Lymphocytes # (Manual) 0.81 L (1.0-4.8) k/uL Eosinophils # (Manual) 2.15 H (0-0.7) k/uL Metamyelocytes # (Man) 0.07 H (0) k/uL Nucleated RBCs 1 H (0-0) /100 WBC Chloride (98-107) mmol/L Carbon Dioxide (22-30) mmol/L BUN (7-17) mg/dL Creatinine (0.52-1.04) mg/dL C-Reactive Protein (<1.0) mg/dL Procalcitonin 0.43 H (0.02-0.09) ng/mL Urine Protein (Negative) Urine Blood (Negative) Ur Leukocyte Esterase (Negative) Urine WBC (0-5) /hpf Urine Bacteria (None) /hpf Crossmatch See Detail 10/24/23 10/24/23 Range/Units 06:51 11:05 RBC (3.80-5.40) m/uL Hgb (11.4-16.0) gm/dL Hct (34.0-46.0) % RDW (11.5-15.5) % Plt Count (150-450) k/uL Lymphocytes # (Manual) (1.0-4.8) k/uL Eosinophils # (Manual) (0-0.7) k/uL Metamyelocytes # (Man) (0) k/uL Nucleated RBCs (0-0) /100 WBC Chloride 113 H (98-107) mmol/L Carbon Dioxide 17 L (22-30) mmol/L BUN 110 H* (7-17) mg/dL Creatinine 3.26 H (0.52-1.04) mg/dL C-Reactive Protein (<1.0) mg/dL Procalcitonin (0.02-0.09) ng/mL Urine Protein Trace H (Negative) Urine Blood Small H (Negative) Ur Leukocyte Esterase Moderate H (Negative) Urine WBC 11 H (0-5) /hpf Urine Bacteria Rare H (None) /hpf Crossmatch Assessment and Plan (1) SIRS (systemic inflammatory response syndrome) Current Visit: Yes Status: Acute Code(s): R65.10 - SIRS OF NON-INFECTIOUS ORIGIN W/O ACUTE ORGAN DYSFUNCTION SNOMED Code(s): 732629016 (2) UTI (urinary tract infection) Current Visit: Yes Status: Acute Code(s): N39.0 - URINARY TRACT INFECTION, SITE NOT SPECIFIED SNOMED Code(s): 85127418 (3) Non-pressure chronic ulcer of other part of right lower leg with fat layer exposed Current Visit: Yes Status: Acute Code(s): L97.812 - NON-PRS CHRONIC ULCER OTH PRT R LOW LEG W FAT LAYER EXPOSED SNOMED Code(s): 10099734443933051 (4) Allergy to penicillin Current Visit: No Status: Acute Code(s): Z88.0 - ALLERGY STATUS TO PENIC ILLIN SNOMED Code(s): 99277988 Plan: 1patient with a right lower extremity wound likely representing a venous stasis ulcer that has been recently debrided at the [place] [facility] and this patient present to the hospital with anemia and GI workup is in progress patient did have mild elevated white count but not running any fever clinic suspicion is low for infected wound. 2local wound care will be switched over to [facility] followed by moist dressing change daily 3patient did have some improvement in her blood pressure culture obtained ye day which are currently pending continue with the cefepime and monitor clinical course closely at the bedside multiple question answered Dictation was produced using [employer] software. please excuse any grammatical, word or spelling errors.
--- NOTE | 2023-10-24 16:46 | P.PN ---
Subjective Progress Note Date: 10/24/23 Principal diagnosis: Anemia, liver disease The patient is an 78-year-old female who presented to the hospital with acute GI bleed on 10/19/2023. Patient Regen alf and had a low hemoglobin reported at 6.5 and multiple dark stools. She is on anticoagulation for history of atrial fibrillation, low-dose Eliquis. On arrival hemoglobin was 6.9. She was transfused 2 units of blood. Neurosurgery was initially consulted. Patient apparently had undergone laparoscopic drainage after admission for pneumoperitoneum earlier this year. She then followed with Dr. Leahy who referred patient to gastroenterology for workup for liver disease and possible cirrhosis. Did follow with Dr. Dawson for workup of cirrhosis and was going to be scheduled for outpatient upper endoscopy to reevaluate ulcer. Gastroenterology was consulted for GI bleed. Patient states that she had been having black stools for a while however could not say just how long. It appears to be poor historian. Denies any abdominal pain, nausea or vomiting. Today's labs WBC 9.4 hemoglobin 8.9 platelet count 71,000 sodium 138 potassium 4.1 BUN 114 creatinine 3.09 total bilirubin 4.1 AST 68 ALT 32 alkaline phosphatase 169 10/25/2023 Patient seen and examined today as a follow-up. No reported black stool or blood in her stool. No abdominal pain, nausea or vomiting. Yesterday she underwent upper endoscopy with findings of no active bleed, mild antral gastritis and duodenitis but no evidence of peptic ulcer disease. Small hiatal hernia. Today's repeat hemoglobin 8.2. Objective - Vital Signs Vital signs: Vital Signs Temp 97.4 F L 10/24/23 07:39 Pulse 81 10/24/23 07:39 Resp 16 10/24/23 07:39 BP 108/61 10/24/23 07:39 Pulse Ox 100 10/24/23 07:39 FiO2 Intake & Output 10/23/23 10/24/23 10/24/23 18:59 06:59 18:59 Intake Total 462 350 Balance 462 350 Intake: IV 240 40 Invasive Line 1 20 20 Invasive Line 3 20 20 Oral 222 0 Blood Product 0 310 Rc As-1 Unit 0 310 [id number] Other: Voiding Method Bedside Commode Bedside Commode Diaper Diaper # Voids 1 - Exam General appearance: The patient is alert, oriented, appears in no acute distress. HET: Head is normocephalic and atraumatic. Conjunctiva pink. Sclera anicteric. Neck: Supple without lymphadenopathy. Abdomen: Soft, nontender, nondistended with bowel sounds. No guarding or rigidity. Extremities: Normal skin color and turgor. No pedal edema Skin: No rashes, no jaundice Neurological: No focal deficits. Alert and oriented. - Labs CBC & Chem 7: 10/24/23 06:51 10/24/23 06:51 Labs: Abnormal Lab Results - Last 24 Hours (Table) 10/23/23 10/23/23 10/23/23 Range/Units 10:20 14:27 14:27 RBC 2.07 L (3.80-5.40) m/uL Hgb 6.3 L* D (11.4-16.0) gm/dL Hct 19.3 L* (34.0-46.0) % RDW 21.7 H (11.5-15.5) % Plt Count 54 L (150-450) k/uL Lymphocytes # (Manual) (1.0-4.8) k/uL Eosinophils # (Manual) (0-0.7) k/uL Metamyelocytes # (Man) (0) k/uL Nucleated RBCs (0-0) /100 WBC Chloride 112 H 113 H (98-107) mmol/L Carbon Dioxide 14 L 17 L (22-30) mmol/L BUN 112 H* 111 H* (7-17) mg/dL Creatinine 3.19 H 3.09 H (0.52-1.04) mg/dL C-Reactive Protein (<1.0) mg/dL Procalcitonin (0.02-0.09) ng/mL Crossmatch 10/23/23 10/23/23 10/23/23 Range/Units 14:27 14:27 15:34 RBC (3.80-5.40) m/uL Hgb (11.4-16.0) gm/dL Hct (34.0-46.0) % RDW (11.5-15.5) % Plt Count (150-450) k/uL Lymphocytes # (Manual) (1.0-4.8) k/uL Eosinophils # (Manual) (0-0.7) k/uL Metamyelocytes # (Man) (0) k/uL Nucleated RBCs (0-0) /100 WBC Chloride (98-107) mmol/L Carbon Dioxide (22-30) mmol/L BUN (7-17) mg/dL Creatinine (0.52-1.04) mg/dL C-Reactive Protein 1.9 H (<1.0) mg/dL Procalcitonin 0.43 H (0.02-0.09) ng/mL Crossmatch See Detail 10/24/23 10/24/23 Range/Units 06:51 06:51 RBC 2.66 L (3.80-5.40) m/uL Hgb 8.2 L D (11.4-16.0) gm/dL Hct 24.5 L (34.0-46.0) % RDW 20.5 H (11.5-15.5) % Plt Count 53 L (150-450) k/uL Lymphocytes # (Manual) 0.81 L (1.0-4.8) k/uL Eosinophils # (Manual) 2.15 H (0-0.7) k/uL Metamyelocytes # (Man) 0.07 H (0) k/uL Nucleated RBCs 1 H (0-0) /100 WBC Chloride 113 H (98-107) mmol/L Carbon Dioxide 17 L (22-30) mmol/L BUN 110 H* (7-17) mg/dL Creatinine 3.26 H (0.52-1.04) mg/dL C-Reactive Protein (<1.0) mg/dL Procalcitonin (0.02-0.09) ng/mL Crossmatch Assessment and Plan (1) Melena Narrative/Plan: 78-year-old female presenting to the emergency department from subacute rehab with anemia and black stools. Patient is known to GI services and recent workup for liver disease with suspected cirrhosis of the liver. She was scheduled to undergo outpatient upper endoscopy to evaluate healing of recent perforated ulcer, however presenting with black stools and anemia with a hemoglobin of 6.5 on admission. Patient was on anticoagulation for chronic atrial fibrillation, that is on hold. Will plan on upper endoscopy tomorrow. Transfuse as needed. And continue to hold anticoagulation. Patient underwent upper endoscopy with no evidence of active GI bleed or old blood noted. Current Visit: Yes Status: Acute Code(s): K92.1 - MELENA SNOMED Code(s): 2 381119 (2) Liver disease Current Visit: Yes Status: Acute Code(s): K76.9 - LIVER DISEASE, UNSPECIFIED SNOMED Code(s): 589696650 (3) Atrial fibrillation Current Visit: Yes Status: Acute Code(s): I48.91 - UNSPECIFIED ATRIAL FIBRILLATION SNOMED Code(s): 82723513 (4) Anemia Current Visit: Yes Status: Acute Code(s): D64.9 - ANEMIA, UNSPECIFIED SNOMED Code(s): 467279626 (5) Thrombocytopenia Current Visit: Yes Status: Acute Code(s): D69.6 - THROMBOCYTOPENIA, UNSPECIFIED SNOMED Code(s): 417800341 Plan: 1. Continue symptomatic and supportive care 2. Diet as tolerated 3. Daily CBC, transfuse for hemoglobin less than 7 4. Patient is status post upper endoscopy 5. Patient may resume anticoagulation, we will leave that at the [facility] and cardiology team 6. Rest of medical management per primary medical team 7. No further planned by gastroenterology workup at this time. Follow-up in office for biopsy results Thank you for this consultation, patient is cleared from gastroenterology for discharge. We will sign off at this time. Dr. Mariama Dawson I agree with the dictator's note, documented as a scribe by Renea Lua.
--- NOTE | 2023-10-24 21:14 | P.PN ---
Subjective Progress Note Date: 10/24/23 Patient pleasant 78-year-old female was sent in because of low hemoglobin of 6.5 at [facility]. Patient does have multiple dark stools. Patient was recently discharged about a week ago from another hospital after she was treated for septic shock and her gallbladder was removed patient is also on metronidazole and vancomycin. Patient is having diarrhea. C. difficile is being obtained. Patient denies any abdominal pain nausea vomiting. Patient recent hemoglobin was around 8. Patient also has acute renal failure with serum creatinine going up to 2.5 last few few months serum creatinine is around 2 before that it was within normal limits patient also has history of heart failure with preserved ejection fraction for which patient is on diuretic. Patient has low blood pressures here apparently may have had a fall is also lightheaded at this time. Patient does have bilateral lower extremity edema is on 3 L of oxygen saturating at 100% which will cut down. Patient denies any or thopnea paroxysmal nocturnal dyspnea at this time I do not have any chest x-ray which will be obtained along with BNP. Patient has chronic atrial fibrillation presently rate controlled and is on Eliquis 2.5 mg and INR is around 2. Patient denies any fatigue. Patient denies any abdominal pain. October 20, 2023 Patient does not have any more episodes of GI bleed anticoagulation is on hold patient blood pressure is in 90s systolic holding off on the diuretic therapy. I will obtain a chest x-ray tomorrow patient will remain n.p.o. for possible upper GI endoscopy tomorrow. Patient serum creatinine remains at 2.86. Nephrology will be consulted. 10/21/2023 Patient is seen in follow-up today with multiple medical consultations following. General surgery following with concerns of possible GI bleed although no bleeding noted and anticoagulation remains on hold. Hemoglobin is stable at this time. Patient was n.p.o. and discussing possible endoscopy on . requesting evaluation from Dr. Baker who has been contacted. Nephrology consulted as well making adjustments to medications as kidney functions remain elevated. Patient is afebrile with no reports of chest pain or shortness of breath. Needs encouragement with meals and not much of an appetite. Patient was reporting to being hungry and per nursing staff was made n.p.o. in the event of possible endoscopy. Will resume diet and discuss further with general surgery regarding intervention. 10/22/2023 Patient is seen in follow-up today with multiple medical consultations following. General surgery following and has contacted GI for further evaluation of possible endoscopic intervention. Patient reporting some dark stools although hemoglobin is stable with no significant bleeding noted. Anticoagulation is on hold and will await EGD report. Patient with nephrology following with continued worsening kidney functions and significant swelling maintained on IV Lasix daily. Patient with significant weakness has not been out of the bed since admission. Would strongly recommend physical therapy daily and up and out of the bed in the chair more often. Elevate lower extremities while at rest 10/23/2023 Patient is seen in follow-up this morning currently n.p.o. as patient is scheduled to undergo EGD with GI Dr. Thorpe today. Patient reports to being slightly anxious although agreeable to proceed. A.m. labs pending and patient also per nursing staff is noted to have low temp and blood pressures have been on the lower side. Anticoagulation is on hold and will discuss with GI and other consultations regarding resuming. Patient to continue on IV Lasix daily and is showing some improvements in overall swelling and edema although continues to have elevated kidney functions. Nephrology is following. 10/24/2023 Patient is seen in follow-up this morning with multiple medical consultations following including GI and general surgery. Patient is status post upper EGD with no active bleeding noted and hemoglobin is stable above 8 status post 1 unit of PRBC yesterday. Kidney functions continue to worsen although does continue to make urine and nephrology following. Follow-up on repeat labs inc luding Lasix twice daily. Reporting some headache. Performed showing some crusted old blood from the right ear canal and eardrum appears intact. No ENT services available at this time and will follow-up outpatient. Patient is continued on cefepime with infectious disease following and will discuss regarding further discharge antibiotics if required. Continue local wound care for lower extremity chronic ulcers. Continue with Sky wraps from the toes up to the knees Review of systems: Constitutional: Reports of fatigue, denied any fever. Cardio vascular: denied any chest pain, palpitations Gastrointestinal denied any nausea vomiting, not much of an appetite but is eating Pulmonary: Denied any worsening shortness of breath, denies cough Neurologic denied any new focal deficits, reports of weakness All inpatient medications were reviewed and appropriate changes in these medications as dictated in the interval history and assessment and plan. PHYSICAL EXAMINATION: GENERAL: The patient is alert and oriented x2, elderly appearing, well- developed. Ill-appearing obese HEENT: Pupils are round and equally reacting to light. EOMI. No scleral icterus. Does have conjunctival pallor. Normocephalic, atraumatic. No pharyngeal erythema. No thyromegaly. CARDIOVASCULAR: S1 and S2 muffled PULMONARY: Diminished breath sounds bilaterally otherwise chest is clear to auscultation, no wheezing or crackles. ABDOMEN: Soft, obese, nontender, nondistended, normoactive bowel sounds. No pal pable organomegaly. MUSCULOSKELETAL: No joint swelling or deformity. EXTREMITIES: No cyanosis, clubbing, bilateral lower extremity edema with some redness 2-3+ pitting edema of bilateral extremities NEUROLOGICAL: Gross neurological examination did not reveal any focal deficits. Diffusely weak SKIN: No rashes. Assessment: -Acute upper GI bleed with dark stools, continue Protonix twice a day, general surgery following and discuss further with GI about EGD and Dr. Dawson following. EGD revealed no active bleeding noted and okay to resume anticoagulation once cleared by consultations. Hemoglobin is stable above 8 with no active bleeding noted. -Chronic atrial fibrillation patient is presently rate controlled patient was resumed on metoprolol if her blood pressure can tolerate, hold off a nticoagulation for above-mentioned reasons -Congestive heart failure chronic diastolic dysfunction, may have mild acute exacerbation will avoid IV fluids but for now because of low blood pressures and dizziness we will hold off on Demadex. Patient is on midodrine as well if needed patient will be started back on midodrine for now we will hold midodrine as well because of concerns of worsening heart failure. Continue IV Lasix twice daily -Diarrhea: Resolved C. difficile is negative -Right ear hearing. Patient reports has been ongoing for quite some time. Exam performed with noted dried blood in the ear canal and eardrum is intact. No ENT services available and will have patient follow-up in the outpatient setting - acute renal failure probably secondary to diuretics, hypotension likely contributed to that as well. nephrology following and is being transition to IV Lasix twice daily per nephrology. - elevated troponins probably secondary to anemia and acute renal failure, cardiology following for recommendation regarding anticoagulation, no chest pain at this time -Hypomagnesemia, but magnesium was replaced. -Hypotension: Probably secondary to diuretics and GI bleed DVT prophylaxis: No pharmacological anticoagulation because of concerns of significant GI bleed, can use SCDs GI prophylaxis Obesity with a BMI of 30.0 Full code Plan: Patient is currently n.p.o. with concerns of possible GI bleed and underwent EGD with GI today and no bleeding noted. Okay to resume anticoagulation once cleared by consultations and further discussion with cardiology Anticoagulation remains on hold and hemoglobin is improved at 8.3 that is post 1 unit of PRBC Patient's blood pressure on the lower side and also patient's temp has been running low, Beatriz hugger applied and will continue monitoring blood pressures. Improving Nephrology following with continued worsening kidney functions and oral diuretics currently on hold. Per nephrology patient receiving IV Lasix and being increased to twice daily PT/OT therapy to evaluate as patient is significantly weak and has had prolonged hospitalization. Patient came from [facility] with plans on returning. Follow-up on repeat labs and replace electrolytes per protocol. Monitor hemoglobin Continue local wound care. Infectious disease and patient is maintained on cefepime. Will discuss further with infectious disease if patient will require antibiotics on discharge Patient will require insurance authorization with case management following and has been submitted and pending. Plan to return to [facility]. Due to multiple complex medical issues, overall prognosis is guarded. The impression and plan of care has been dictated by Kailey Bates, Nurse Practitioner as directed. Dr. Irwin MD I have performed a history and examination and MDM of this patient, discussed the same with the dictator, and agree with the dictator's assessment and plan as written ,documented as a scribe. Based on total visit time, I have performed more than 50% of the visit. Objective - Vital Signs Vital signs: Vital Signs Temp 97.4 F L 10/24/23 07:39 Pulse 81 10/24/23 07:39 Resp 16 10/24/23 07:39 BP 108/61 10/24/23 07:39 Pulse Ox 100 10/24/23 07:39 FiO2 Intake & Output 10/23/23 10/24/23 10/24/23 18:59 06:59 18:59 Intake Total 462 350 Balance 462 350 Intake: IV 240 40 Invasive Line 1 20 20 Invasive Line 3 20 20 Oral 222 0 Blood Product 0 310 Rc As-1 Unit 0 310 [id number] Other: Voiding Method Bedside Commode Bedside Commode Diaper Diaper # Voids 1 - Labs CBC & Chem 7: 10/24/23 06:51 10/24/23 06:51 Labs: Abnormal Lab Results - Last 24 Hours (Table) 10/23/23 10/23/23 10/23/23 Range/Units 10:20 14:27 14:27 RBC 2.07 L (3.80-5.40) m/uL Hgb 6.3 L* D (11.4-16.0) gm/dL Hct 19.3 L* (34.0-46.0) % RDW 21.7 H (11.5-15.5) % Plt Count 54 L (150-450) k/uL Lymphocytes # (Manual) (1.0-4.8) k/uL Eosinophils # (Manual) (0-0.7) k/uL Metamyelocytes # (Man) (0) k/uL Nucleated RBCs (0-0) /100 WBC Chloride 112 H 113 H (98-107) mmol/L Carbon Dioxide 14 L 17 L (22-30) mmol/L BUN 112 H* 111 H* (7-17) mg/dL Creatinine 3.19 H 3.09 H (0.52-1.04) mg/dL C-Reactive Protein (<1.0) mg/dL Procalcitonin (0.02-0.09) ng/mL Crossmatch 10/23/23 10/23/23 10/23/23 Range/Units 14:27 14:27 15:34 RBC (3.80-5.40) m/uL Hgb (11.4-16.0) gm/dL Hct (34.0-46.0) % RDW (11.5-15.5) % Plt Count (150-450) k/uL Lymphocytes # (Manual) (1.0-4.8) k/uL Eosinophils # (Manual) (0-0.7) k/uL Metamyelocytes # (Man) (0) k/uL Nucleated RBCs (0-0) /100 WBC Chloride (98-107) mmol/L Carbon Dioxide (22-30) mmol/L BUN (7-17) mg/dL Creatinine (0.52-1.04) mg/dL C-Reactive Protein 1.9 H (<1.0) mg/dL Procalcitonin 0.43 H (0.02-0.09) ng/mL Crossmatch See Detail 10/24/23 10/24/23 Range/Units 06:51 06:51 RBC 2.66 L (3.80-5.40) m/uL Hgb 8.2 L D (11.4-16.0) gm/dL Hct 24.5 L (34.0-46.0) % RDW 20.5 H (11.5-15.5) % Plt Count 53 L (150-450) k/uL Lymphocytes # (Manual) 0.81 L (1.0-4.8) k/uL Eosinophils # (Manual) 2.15 H (0-0.7) k/uL Metamyelocytes # (Man) 0.07 H (0) k/uL Nucleated RBCs 1 H (0-0) /100 WBC Chloride 113 H (98-107) mmol/L Carbon Dioxide 17 L (22-30) mmol/L BUN 110 H* (7-17) mg/dL Creatinine 3.26 H (0.52-1.04) mg/dL C-Reactive Protein (<1.0) mg/dL Procalcitonin (0.02-0.09) ng/mL Crossmatch
[2023-10-25 05:37] VITALS: TEMP 97.4
[2023-10-25 10:28] LABS: Anisocytosis Moderate; HCT 26.2 % (34.0-46.0); HGB 8.4 gm/dL (11.4-16.0); Hypochromasia Slight; MCH 30.5 pg (25.0-35.0); MCHC 31.9 g/dL (31.0-37.0); MCV 95.6 fL (80.0-100.0); Macrocytosis Slight; Mean Platelet Volume 10.6; RBC 2.74 m/uL (3.80-5.40); RDW 20.5 % (11.5-15.5)
--- NOTE | 2023-10-25 10:40 | P.PN ---
Subjective Patient is seen in follow-up for acute kidney injury. Creatinine 3.26 yesterday. Has been voiding. Denies any active bleeding. Received blood tr ansfusions this admission. Hemoglobin 8.2 yesterday. Vital signs are stable. General: No acute distress. HEENT: Head exam is unremarkable. On nasal cannula. LUNGS: No audible rhonchi or wheezes. HEART: Rate and Rhythm are regular. ABDOMEN: Nontender. EXTREMITITES: Lower extremities wrapped. 1+ edema. Objective - Vital Signs Vital signs: Vital Signs Temp 97.4 F L 10/25/23 07:52 Pulse 81 10/25/23 09:30 Resp 16 10/25/23 09:30 BP 101/66 10/25/23 07:52 Pulse Ox 99 10/25/23 07:52 FiO2 Intake & Output 10/24/23 10/25/23 10/25/23 18:59 06:59 18:59 Intake Total 340 Output Total 300 Balance 340 -300 Weight 79.379 kg Intake: Oral 340 Output: Urine 300 Other: Voiding Method Bedside Commode Bedside Commode Bedside Commode Bedpan Bedpan Bedpan Diaper Diaper Diaper # Voids 1 1 # Bowel Movements 1 1 - Labs CBC & Chem 7: 10/24/23 06:51 10/24/23 06:51 Labs: Abnormal Lab Results - Last 24 Hours (Table) 10/24/23 Range/Units 11:05 Urine Protein Trace H (Negative) Urine Blood Small H (Negative) Ur Leukocyte Esterase Moderate H (Negative) Urine WBC 11 H (0-5) /hpf Urine Bacteria Rare H (None) /hpf Microbiology - Last 24 Hours (Table) 10/23/23 17:35 Blood Culture - Preliminary Blood Assessment and Plan Plan: Assessment: 1. Acute kidney injury secondary to ATN secondary to acute blood loss anemia and hemodynamic instability. Creatinine 3.26 yesterday. Elevated BUN partially due to GI bleed. Creatinine as low as 1.02 dated September 10, 2023. No proteinuria on UA. No hydronephrosis noted on kidney ultrasound. 2. Acute GI bleed status post blood transfusions. Status post IV DDAVP. On Aranesp. Hemoglobin 8.2 yesterday. Surgery following. EGD showed no active GI bleed. 3. Hypomagnesemia from poor intake and diuretic use. Replaced. Better. 4. Metabolic acidosis secondary to acute kidney injury. On oral bicarb. 5. Acute on chronic diastolic CHF and moderate mitral regurgitation. 6. Volume overload. 7. Liver cirrhosis. Plan: Maintain IV Lasix. Transition to oral Lasix 40 mg twice daily upon discharge. Add maintenance supplementation 20 mill equivalents once daily. Status post IV albumin given October 22, 2023. Avoid nephrotoxins. Continue to monitor renal function and urine output. Repeat BMP and magnesium level 2 to 3 days postdischarge. Follow-up outpatient in 1 week.
[2023-10-25 10:54] LABS: African American GFR (CKD) 15 (>60 ml/min/1.73 sqM); Anion Gap 11 mmol/L; Calcium 8.8 mg/dL (8.4-10.2); Carbon Dioxide 16 mmol/L (22-30); Chloride 113 mmol/L (98-107); Glucose 105 mg/dL (74-99); Magnesium 1.8 mg/dL (1.6-2.3); Non-African American GFR(CKD) 13 (>60 ml/min/1.73 sqM); Potassium 3.6 mmol/L (3.5-5.1); Sodium 140 mmol/L (137-145)
[2023-10-25 11:11] LABS: Blood Urea Nitrogen 108 mg/dL (7-17)
--- NOTE | 2023-10-25 12:00 | P.PN ---
Subjective Progress Note Date: 10/25/23 Laurence WATERS The patient is an 78-year-old female patient with a past medical history significant for cardiomyopathy and heart failure and atrial fibrillation as well as multiple comorbid conditions was admitted to the hospital with gastrointestinal bleeding required blood transfusion and currently oral antico agulation is on hold. She was seen by the gastrointestinal service for possible EGD down the line October 21, 2023 The patient was seen and evaluated. She is hemodynamically stable which she is asymptomatic. GI service continues to be on the case for possible EGD. Anticoagulation continues to be on hold. She continues to be in atrial fibrillation with controlled heart rate on the current medical regimen including the current dose of beta-breanne 10/21 Patient is seen today in follow-up. She remains in atrial fibrillation with controlled rate in the 60s to 80s, blood pressure soft 98/65, pulse ox 90% on 2 L nasal cannula. Consult with GI has been added regarding cirrhosis of the liver. She is currently not on anticoagulation due to blood in her stools and anemia. Physical examination: Limited to this examination includes irregular heart rate, chronic 2+ lower extremity edema, wounds with wraps in place to the bilateral lower extremities. 10/22 Patient is scheduled for EGD today with GI. Anticoagulation on hold. Apparently patient is still having dark stools. Telemetry is atrial fibrillation running between 80 and 101. Blood pressure 100/65. Hemoglobin is 8.9. Patient has received 2 units of packed RBCs during this hospitalization. Repeat blood work also reveals BUN of 111, creatinine 3.09. Patient is followed by nephrology. Examination includes irregular heart rate, chronic 2+ lower extremity edema, wounds with wraps in place to the bilateral lower extremities. 10/23 Patient is seen today in follow-up. She states that she had some blood last evening but the nurse states she had 1 bowel movement and it was not noted to have blood in it. She underwent EGD yesterday with GI which revealed gastritis. No active bleeding. At this point, we will plan to continue to hold anticoagulation. Blood pressure 109/65, heart rate 85, pulse ox 99% on 2 L nasal cannula. Repeat blood work reveals hemoglobin of 8.2, platelet count 53. Renal function continues to worsen with BUN 110 and creatinine 3.26. Patient is status post transfusion of a total of 3 units packed RBCs. Patient remains in atrial fibrillation 10/24 Patient denies any new complaints. Telemetry is atrial fibrillation running in the 80s. Anticoagulation remains on hold. Blood pressure 113/73, heart rate 82, pulse ox 100% on 2 L nasal cannula. Repeat blood work reveals hemoglobin of 8.4. BUN 108 and creatinine 3.25. Assessment Gastrointestinal bleeding Acute blood loss anemia Permanent atrial fibrillation with controlled heart rate History of cardiomyopathy History of heart failure Plan Continue holding the oral anticoagulation The patient might benefit from left atrial appendage closure device which will be addressed as an outpatient Continue the current dose of beta-breanne Patient is cleared for discharge from cardiology and may follow-up in the office in 1 to 2 weeks. Nurse practitioner note has been reviewed, I agree with documented findings and plan of care. Patient was seen and examined. Objective - Vital Signs Vital signs: Vital Signs Temp 97.4 F L 10/25/23 07:52 Pulse 81 10/25/23 07:52 Resp 16 10/25/23 07:52 BP 101/66 10/25/23 07:52 Pulse Ox 99 10/25/23 07:52 FiO2 Intake & Output 10/24/23 10/25/23 10/25/23 18:59 06:59 18:59 Intake Total 340 Output Total 300 Balance 340 -300 Weight 79.379 kg Intake: Oral 340 Output: Urine 300 Other: Voiding Method Bedside Commode Bedside Commode Bedpan Bedpan Diaper Diaper # Voids 1 # Bowel Movements 1 - Labs CBC & Chem 7: 10/25/23 09:14 10/25/23 09:14 Labs: Abnormal Lab Results - Last 24 Hours (Table) 10/24/23 10/24/23 10/24/23 Range/Units 06:51 06:51 11:05 RBC 2.66 L (3.80-5.40) m/uL Hgb 8.2 L D (11.4-16.0) gm/dL Hct 24.5 L (34.0-46.0) % RDW 20.5 H (11.5-15.5) % Plt Count 53 L (150-450) k/uL Lymphocytes # (Manual) 0.81 L (1.0-4.8) k/uL Eosinophils # (Manual) 2.15 H (0-0.7) k/uL Metamyelocytes # (Man) 0.07 H (0) k/uL Nucleated RBCs 1 H (0-0) /100 WBC Chloride 113 H (98-107) mmol/L Carbon Dioxide 17 L (22-30) mmol/L BUN 110 H* (7-17) mg/dL Creatinine 3.26 H (0.52-1.04) mg/dL Urine Protein Trace H (Negative) Urine Blood Small H (Negative) Ur Leukocyte Esterase Moderate H (Negative) Urine WBC 11 H (0-5) /hpf Urine Bacteria Rare H (None) /hpf Microbiology - Last 24 Hours (Table) 10/23/23 17:35 Blood Culture - Preliminary Blood
[2023-10-25 13:29] LABS: Platelet Count 55 k/uL (150-450)
[2023-10-25 13:35] LABS: Metamyelocytes # (M) 0.08 k/uL (0)
[2023-10-25 13:39] LABS: Crenated RBC Present; Target Cells Present
[2023-10-25 13:52] LABS: WBC 7.6 k/uL (3.8-10.6)
[2023-10-25 13:56] LABS: Basophils # (M) 0.08 k/uL (0-0.2); Lymphocytes # (M) 0.91 k/uL (1.0-4.8); Monocytes # (M) 0.38 k/uL (0-1.0); Neutrophils # (M) 4.41 k/uL (1.3-7.7); Neutrophils % (M) 58 %; Nucleated Red Blood Cells 0 /100 WBC (0-0); Total Cells Counted 200
[2023-10-25 13:58] LABS: Poikilocytosis (M) Present
[2023-10-25] MEDS: POTASSIUM CHLORIDE ER 20 MEQ TAB.ER PO SCH (14:01)
--- NOTE | 2023-10-25 14:22 | P.DS ---
Providers Date of admission: 10/19/23 12:27 Expected date of discharge: 10/25/23 Attending physician: Baltazar Gayle Consults: 10/19/23 12:05 Consult Physician Routine Consulting Provider: Jeffrey Dawson Consult Reason/Comments: Chronic atrial fibrillation on anticoagulation, GI bleed Do you want consulting provider notified?: Yes 10/20/23 15:21 Consult Physician Routine Consulting Provider: Danielle Mcconnell Consult Reason/Comments: Acute renal failure on chronic kidney disease Do you want consulting provider notified?: Yes 10/20/23 15:38 Consult Physician Routine Consulting Provider: Rai Monroy Consult Reason/Comments: (R) LE wounds Do you want consulting provider notified?: Yes Primary care physician: [facility] Course: Final diagnosis -Acute upper GI bleed with dark stools, continue Protonix twice a day, general surgery following and discuss further with GI about EGD and Dr. Dawson following. EGD revealed no active bleeding noted and okay to resume anticoagulation once cleared by consultations. Hemoglobin is stable above 8 with no active bleeding noted. -Chronic atrial fibrillation patient is presently rate controlled patient was resumed on metoprolol if her blood pressure can tolerate, hold off anticoagulation for above-mentioned reasons -Congestive heart failure chronic diastolic dysfunction, may have mild acute exacerbation will avoid IV fluids but for now because of low blood pressures and dizziness we will hold off on Demadex. Patient is on midodrine as well if needed patient will be started back on midodrine for now we will hold midodrine as well because of concerns of worsening heart failure. Continue IV Lasix twice daily -Diarrhea: Resolved C. difficile is negative -Right ear hearing. Patient reports has been ongoing for quite some time. Exam performed with noted dried blood in the ear canal and eardrum is intact. No ENT services available and will have patient follow-up in the outpatient setting - acute renal failure probably secondary to diuretics, hypotension likely contributed to that as well. nephrology following and is being transition to IV Lasix twice daily per nephrology. - elevated troponins probably secondary to anemia and acute renal failure, cardiology following for recommendation regarding anticoagulation, no chest pain at this time -Hypomagnesemia, but magnesium was replaced. -Hypotension: Probably secondary to diuretics and GI bleed DVT prophylaxis: No pharmacological anticoagulation because of concerns of significant GI bleed, can use SCDs GI prophylaxis Obesity with a BMI of 30.0 Full code Discharge disposition Patient is being discharged in a stable condition with guarded prognosis to [facility] on [facility]. Patient will follow-up with Dr. Hood in the outpatient setting upon discharge. Patient is to continue with holding anticoagulation per cardiology and close outpatient follow-up with cardiology, nephrology, GI as scheduled. Total time taken is greater than 35 minutes. Hospital course This is a 78-year-old female who was recently admitted with anemia concerns for dark stools with concerns of possible GI bleed. Patient evaluated by general surgery as well as GI underwent EGD showing no active bleeding and has been cleared to start anticoagulation. Patient also continues with significant low hemoglobins requiring transfusion and cardiology following recommending holding anticoagulation for now until follow-up outpatient. Patient also with continued ongoing worsening kidney functions with renal failure multifactorial as well as chronic kidney with worsening kidney functions although is making urine. Recommend outpatient follow-up with repeat labs and close monitoring. Patient with poor oral intake encouraged increased activity as tolerated and increase diet with supplements between meals. Patient also to follow-up with an ENT outpatient as she was noted to have some decreased hearing and reports has been hard of hearing for quite some time. On exam there was some noted dried blood in the right ear canal and tympanic membrane of the eardrum was intact. No ENT at the time and recommending outpatient follow-up. Patient with extensive comorbidities and prolonged hospitalization with continued ongoing frequent rehospitalization's regarding significant comorbidities patient is extremely high risk for readmission and CODE STATUS needs to be addressed. Patient evaluated by physical therapy and will be returning to [facility] for continued PT/OT therapy. Patient was evaluated by infectious disease recommending to continue local wound care as mentioned below regarding lower extremities. Patient will continue on oral Ceftin twice daily for the next 5 days. Again continue holding anticoagulation for now until follow-up with consultations outpatient. Monitor for any further bleeding. Patient is on Aranesp weekly and will continue for now. Please refer to other consultation notes for further HPI. Currently no reports of chest pain, shortness of breath, or palpitations. Patient is afebrile. No reports of nausea or vomiting and patient is tolerating diet. Patient will be going to [facility] on the [place] today. Guarded prognosis given significant comorbidities and again high risk for readmissions due to this. Physical exam: Gen: This is a 78-year-old female who is awake, alert and oriented x 3, well-developed, elderly appearing, obese HEENT: Head is atraumatic, normocephalic. Pupils equal, round. Sclerae is anicteric. NECK: Supple. No JVD. No lymphadenopathy. No thyromegaly. LUNGS: Diminished breath sounds bilaterally otherwise clear to auscultation. No wheezes or rhonchi. No intercostal retractions. HEART: S1, S2 are muffled ABDOMEN: Soft. Obese bowel sounds are present. No masses. No tenderness. EXTREMITIES: Bilateral lower extremity edema continues with significant swelling although is improving No calf tenderness. NEUROLOGICAL: Patient is awake, alert and oriented x3. Cranial nerves 2 through 12 are grossly intact. Diffusely weak Please refer to medication reconciliation sheet for a list of medications. The impression and plan of care has been dictated by Kailey Bates, Nurse Practitioner as directed. Dr. Irwin MD I have performed a history and examination and MDM of this patient, discussed the same with the dictator, and agree with the dictator's assessment and plan as written ,documented as a scribe. Based on total visit time, I have performed more than 50% of the visit. Patient Condition at Discharge: Fair Plan - Discharge Summary Discharge Rx Participant: Yes New Discharge Prescriptions: New Darbepoetin Luis Alberto [Aranesp] 40 mcg SQ Q7D each Potassium Chloride ER [K-Dur 20] 20 meq PO DAILY tab Furosemide [Lasix] 40 mg PO BID #60 tablet Albuterol Nebulized [Ventolin Nebulized] 2.5 mg INHALATION RT-Q4H PRN ml PRN Reason: Shortness Of Breath cefUROXime axetiL [Ceftin] 500 mg PO BID 7 Days #14 tab Sodium Bicarbonate Tab 650 mg PO BID tab Continue Albuterol Sulfate [Ventolin HFA] 2 puff INHALATION RT-Q4H PRN PRN Reason: Shortness Of Breath Famotidine [Pepcid] 20 mg PO BID Acetaminophen Tab [Tylenol] 650 mg PO Q6HR PRN PRN Reason: Pain Docusate [Colace] 100 mg PO BID Metoprolol Tartrate [Lopressor] 50 mg PO Q8H Discontinued Torsemide [Demadex] 10 mg PO DAILY Torsemide [Demadex] 20 mg PO DAILY Collagenase [Santyl Ointment] 1 applic TOPICAL HS Potassium Chloride ER [K-Dur 10] 10 meq PO DAILY Apixaban [Eliquis] 2.5 mg PO BID Midodrine [ProAmatine] 5 mg PO TID Collagenase [Santyl Ointment] 1 applic TOPICAL DAILY PRN PRN Reason: WOUND CARE Discharge Medication List Albuterol Sulfate [Ventolin HFA] 2 puff INHALATION RT-Q4H PRN 08/03/23 [History] Famotidine [Pepcid] 20 mg PO BID 08/03/23 [History] Acetaminophen Tab [Tylenol] 650 mg PO Q6HR PRN 10/19/23 [History] Docusate [Colace] 100 mg PO BID 10/19/23 [History] Metoprolol Tartrate [Lopressor] 50 mg PO Q8H 10/19/23 [History] Albuterol Nebulized [Ventolin Nebulized] 2.5 mg INHALATION RT-Q4H PRN ml 10/25/23 [Rx] Darbepoetin Luis Alberto [Aranesp] 40 mcg SQ Q7D each 10/25/23 [Rx] Furosemide [Lasix] 40 mg PO BID #60 tablet 10/25/23 [Rx] Potassium Chloride ER [K-Dur 20] 20 meq PO DAILY tab 10/25/23 [Rx] Sodium Bicarbonate Tab 650 mg PO BID tab 10/25/23 [Rx] cefUROXime axetiL [Ceftin] 500 mg PO BID 7 Days #14 tab 10/25/23 [Rx] Follow up Appointment(s)/Referral(s): Pérez Gonzalez MD [STAFF PHYSICIAN] - 1 Week Ammy Dawson MD [STAFF PHYSICIAN] - 2 Weeks Ricki Hood DO [Primary Care Provider] - 1-2 days Neeraj Rivera DO [STAFF PHYSICIAN] - 1 Week Ambulatory/Diagnostic Orders: Complete Blood Count w/diff [LAB.AMB] Time Frame: 3 Days, Location: None Selected Activity/Diet/Wound Care/Special Instructions: Patient is going to [facility] on the [address] Activity as tolerated Continue with Lasix twice daily and outpatient follow-up labs including BMP magnesium and CBC in 2 to 3 days Follow-up nephrology outpatient Follow-up with GI outpatient follow-up with cardiology outpatient Continue holding anticoagulation for now Continue local wound care of the right lower extremity by applying honey gel, dry gauze, rolled gauze and secure with tape Recommend elevating lower extremities while at rest and Sky wrapping from the toes up to the knees Continue oral antibiotics for 5 days Continue regular diet Continue Ensure compact 3 times daily with meals, patient prefers chocolate Discharge Disposition: TRANSFER TO SNF/ECF
--- NOTE | 2023-10-25 15:07 | P.PN ---
Subjective Progress Note Date: 10/25/23 Principal diagnosis: Reason for follow-up is right lower extremity wound,sepsis UTI Patient is a 78-year-old female with a past medical history significant for heart failure with hypertension osteoarthritis with recent admission to the hospital with left lower extremity cellulitis and cholecystitis s/p cholecystectomy patient has been brought to the hospital for evaluation of anemia hemoglobin of 6.5 I was asked to see the patient because of right lower extremity wound. Patient is status post EGD with evidence of mild antral gastritis procedure completed on 10/23/2023. On today's evaluation that is 10/25/2023, patient has been afebrile, patient is breathing comfortably and is currently on 2 L nasal cannula oxygen patient denies having any significant cough no chest pain shortness of breath, patient denies nausea vomiting or diarrhea and no abdominal pain or any worsening pain to the right lower abdominal area. Patient white count is 7.6 creatinine 3.25 cultures currently pending Objective - Vital Signs Vital signs: Vital Signs Temp 97.4 F L 10/25/23 11:40 Pulse 82 10/25/23 11:40 Resp 16 10/25/23 11:40 BP 113/73 10/25/23 11:40 Pulse Ox 100 10/25/23 11:40 FiO2 Intake & Output 10/24/23 10/25/23 10/25/23 18:59 06:59 18:59 Intake Total 340 118 Output Total 300 Balance 340 -300 118 Weight 79.379 kg Intake: Oral 340 118 Output: Urine 300 Other: Voiding Method Bedside Commode Bedside Commode Bedside Commode Bedpan Bedpan Bedpan Diaper Diaper Diaper # Voids 1 1 # Bowel Movements 1 1 - Exam GENERAL DESCRIPTION: An elderly female lying in bed in no distress RESPIRATORY SYSTEM: Unlabored breathing , decreased breath sounds at bases HEART: S1 S2 regular rate and rhythm , ABDOMEN: Soft , no tenderness EXTREMITIES: Right lateral leg wound currently dressed - Labs CBC & Chem 7: 10/25/23 09:14 10/25/23 09:14 Labs: Abnormal Lab Results - Last 24 Hours (Table) 10/25/23 10/25/23 Range/Units 09:14 09:14 RBC 2.74 L (3.80-5.40) m/uL Hgb 8.4 L (11.4-16.0) gm/dL Hct 26.2 L (34.0-46.0) % RDW 20.5 H (11.5-15.5) % Plt Count 55 L (150-450) k/uL Chloride 113 H (98-107) mmol/L Carbon Dioxide 16 L (22-30) mmol/L BUN 108 H* (7-17) mg/dL Creatinine 3.25 H (0.52-1.04) mg/dL Glucose 105 H (74-99) mg/dL Microbiology - Last 24 Hours (Table) 10/23/23 17:35 Blood Culture - Preliminary Blood Assessment and Plan (1) SIRS (systemic inflammatory response syndrome) Current Visit: Yes Status: Acute Code(s): R65.10 - SIRS OF NON-INFECTIOUS ORIGIN W/O ACUTE ORGAN DYSFUNCTION SNOMED Code(s): 950656095 (2) UTI (urinary tract infection) Current Visit: Yes Status: Acute Code(s): N39.0 - URINARY TRACT INFECTION, SITE NOT SPECIFIED SNOMED Code(s): 21803041 (3) Non-pressure chronic ulcer of other part of right lower leg with fat layer exposed Current Visit: Yes Status: Acute Code(s): L97.812 - NON-PRS CHRONIC ULCER OTH PRT R LOW LEG W FAT LAYER EXPOSED SNOMED Code(s): 62847253708467947 (4) Allergy to penicillin Current Visit: No Status: Acute Code(s): Z88.0 - ALLERGY STATUS TO PENICILLIN SNOMED Code(s): 44232006 Plan: 1patient with a right lower extremity wound likely representing a venous stasis ulcer that has been recently debrided at the senior living and this patient present to the hospital with anemia and GI workup is in progress patient did marquez ve mild elevated white count but not running any fever clinic suspicion is low for infected wound. 2local wound care will be switched over to [place] followed by moist dressing change daily 3patient did have normalization of her temperature white count remains normal cultures are pending continue cefepime will consider short course of oral Ceftin if the culture remains to be negative discussed with the admitting team [employer] Dictation was produced using [employer] dictation software. please excuse any grammatical, word or spelling errors. Time with Patient: Less than 30
[2023-10-25 16:10] VITALS: BP 115/78; PULSE 81
[2023-10-25 16:11] VITALS: RESP 18
== END 2023-10-25 17:50 | DRG 377 ==
LOC: EC 09:00 → 3SCARD 12:27
PROVIDERS: ADMIT Internal Medicine; ATTEND Internal Medicine
PROC: 30233N1 Transfusion of Nonautologous Red Blood Cells into Peripheral Vein, Percutaneous Approach (ICD-10-PCS; 2023-10-19)
PROC: 0DB78ZX Excision of Stomach, Pylorus, Via Natural or Artificial Opening Endoscopic, Diagnostic (ICD-10-PCS; principal; 2023-10-23 13:25)
DX: K92.2 Gastrointestinal hemorrhage, unspecified (principal); I50.33 Acute on chronic diastolic (congestive) heart failure; N17.0 Acute kidney failure with tubular necrosis; D62 Acute posthemorrhagic anemia; D68.9 Coagulation defect, unspecified; I13.0 Hypertensive heart and chronic kidney disease with heart failure and stage 1 through stage 4 chronic kidney disease, or unspecified chronic kidney disease; I42.9 Cardiomyopathy, unspecified; I48.21 Permanent atrial fibrillation; I47.19 Other supraventricular tachycardia; E87.20 Acidosis, unspecified; L97.212 Non-pressure chronic ulcer of right calf with fat layer exposed; L97.812 Non-pressure chronic ulcer of other part of right lower leg with fat layer exposed; K74.60 Unspecified cirrhosis of liver; T50.2X5A Adverse effect of carbonic-anhydrase inhibitors, benzothiadiazides and other diuretics, initial encounter; F17.200 Nicotine dependence, unspecified, uncomplicated; I95.2 Hypotension due to drugs; E66.9 Obesity, unspecified; I34.0 Nonrheumatic mitral (valve) insufficiency; E83.42 Hypomagnesemia; D69.6 Thrombocytopenia, unspecified; N18.9 Chronic kidney disease, unspecified; Z68.30 Body mass index [BMI] 30.0-30.9, adult; R32 Unspecified urinary incontinence; I44.7 Left bundle-branch block, unspecified; K44.9 Diaphragmatic hernia without obstruction or gangrene; M19.90 Unspecified osteoarthritis, unspecified site; E56.1 Deficiency of vitamin K; Z79.01 Long term (current) use of anticoagulants; Z79.899 Other long term (current) drug therapy; Z87.11 Personal history of peptic ulcer disease; Z88.0 Allergy status to penicillin; Z88.8 Allergy status to other drugs, medicaments and biological substances
CPT/HCPCS: 36415; 36430; 43239; 71045; 71250; 76770; 80048; 80053; 81001; 82272; 82607; 82728; 82746; 83540; 83550; 83735; 83880; 84145; 84484; 85025; 85027; 85610; 85730; 86140; 86850; 86900; 86901; 86920; 87040; 87077; 87086; 87186; 87324; 88305; 94760; 96365; 96366; 96375; 99291

== ENCOUNTER 2023-10-31 23:41 | Inpatient (IN) | payer MEDICARE ==
--- NOTE | 2023-11-01 00:16 | ED ---
Altered Mental Status HPI - General Chief Complaint: Altered Mental Status Stated Complaint: Altered Mental Status Time Seen by Provider: 10/31/23 23:44 Source: EMS Mode of arrival: EMS Limitations: altered mental status - History of Present Illness Initial Comments: This patient is an 78-year-old woman who is sent here from halfway to have evaluation for altered mental status and hypotension. The patient's is here at the bedside and states that he noticed earlier in the day that she did not seem like her usual self. He states that the last time she was like this her heart rate and blood pressure became low. Patient has been states that he went home to get some rest and was subsequently informed that her blood pressure was indeed low and she was sent here. The patient herself is not able to provide any history as she does seem delirious. MD Complaint: altered mental status Onset/Timin -: days(s) Consistency of Symptoms: getting worse Context: history of similar presentation - Related Data Home Medications Medication Instructions Recorded Confirmed Albuterol Sulfate [Ventolin HFA] 2 puff INHALATION RT-Q4H PRN 08/03/23 11/05/23 Acetaminophen Tab [Tylenol] 650 mg PO Q6HR PRN 10/19/23 11/05/23 Docusate [Colace] 100 mg PO BID 10/19/23 11/05/23 Metoprolol Tartrate [Lopressor] 50 mg PO Q8H 10/19/23 11/05/23 Dakins (1/2 Strength) 1 applic TOPICAL BID 11/01/23 11/05/23 Dakins (1/2 Strength) 1 applic TOPICAL DAILY PRN 11/01/23 11/05/23 Darbepoetin Luis Alberto [Aranesp] 40 mcg SQ WE 11/01/23 11/05/23 Furosemide [Lasix] 40 mg PO DIRECTED 11/01/23 11/05/23 Lactose-Reduced Food [Ensure Plus] 237 ml PO QID 11/01/23 11/05/23 Midodrine [ProAmatine] 5 mg PO TID 11/01/23 11/05/23 Previous Rx's Medication Instructions Recorded Albuterol Nebulized [Ventolin 2.5 mg INHALATION RT-Q4H PRN ml 10/25/23 Nebulized] Potassium Chloride ER [K-Dur 20] 20 meq PO DAILY tab 10/25/23 Sodium Bicarbonate Tab 650 mg PO BID tab 10/25/23 Allergies Allergy/AdvReac Type Severity Reaction Status Date / Time omeprazole [From Prilosec] Allergy Unknown Rash/Hives, Verified 10/19/23 09:55 TONGUE SWELLLING omeprazole magnesium Allergy Unknown Rash/Hives, Verified 10/19/23 09:55 [From Prilosec] TONGUE SWELLLING Penicillins Allergy Unknown Rash/Hives/ Verified 10/19/23 09:55 Itching amlodipine Allergy fide pedal Verified 10/19/23 09:55 edema, loss voice carvedilol Allergy shortness Verified 10/19/23 09:55 of breath lisinopril Allergy Unknown Verified 10/19/23 09:55 Review of Systems ROS Statement: Those systems with pertinent positive or pertinent negative responses have been documented in the HPI. ROS Other: All systems not noted in ROS Statement are negative. 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 History of Any Multi-Drug Resistant Organisms: None Reported Past Surgical History: Cholecystectomy, Heart Catheterization Additional Past Surgical History / Comment(s): EYE SURGERY DUE TO INJURY, EGD, COLONOSCOPY, BONE MARROW BIOPSY, cataracts, muscle biopsy, Past Anesthesia/Blood Transfusion Reactions: No Reported Reaction Past Psychological History: No Psychological Hx Reported Smoking Status: Never smoker Past Alcohol Use History: Occasional Past Drug Use History: None Reported - Past Family History Sister(s) Family Medical History: Cancer Additional Family Medical History / Comment(s): LEUKEMIA- at age 42 Brother(s) Family Medical History: Cancer Additional Family Medical History / Comment(s): with unknown type CA at age 60s General Exam Limitations: altered mental status General appearance: obtunded Head exam: Present: atraumatic, normocephalic ENT exam: Present: mucous membranes dry Neck exam: Present: normal inspection, full ROM. Absent: tenderness, meningismus Respiratory exam: Present: rhonchi. Absent: respiratory distress, wheezes, rales, stridor, accessory muscle use Cardiovascular Exam: Present: bradycardia. Absent: systolic murmur, diastolic murmur, rubs, gallop GI/Abdominal exam: Present: soft, tenderness. Absent: distended, guarding, rebound, rigid, mass, pulsatile mass Extremities exam: Present: normal inspection, normal capillary refill. Absent: pedal edema, calf tenderness Back exam: Present: normal inspection. Absent: CVA tenderness (R), CVA tenderness (L) Neurological exam: Present: altered Skin exam: Present: warm, dry, intact Course Vital Signs 10/31/23 10/31/23 11/01/23 23:43 23:45 00:00 Temperature Pulse Rate 48 L 50 L 48 L Respiratory 19 22 28 H Rate Blood Pressure 84/47 90/50 O2 Sat by Pulse 98 97 97 Oximetry 11/01/23 11/01/23 11/01/23 00:15 00:30 00:45 Temperature Pulse Rate 28 L 48 L 50 L Respiratory 48 H 25 H 17 Rate Blood Pressure 100/63 91/61 84/47 O2 Sat by Pulse 97 97 97 Oximetry 11/01/23 11/01/23 11/01/23 01:00 01:15 01:37 Temperature 87.3 F L Pulse Rate 47 L 49 L Respiratory 29 H 22 Rate Blood Pressure 79/35 78/48 O2 Sat by Pulse 99 99 Oximetry 11/01/23 11/01/23 11/01/23 01:45 01:55 02:00 Temperature 87.4 F L Pulse Rate 46 L 50 L 48 L Respiratory 24 16 16 Rate Blood Pressure 74/33 74/33 74/33 O2 Sat by Pulse 95 96 98 Oximetry 11/01/23 11/01/23 11/01/23 02:15 02:30 02:45 Temperature 84.0 F L Pulse Rate 50 L 49 L 52 L Respiratory 35 H 21 25 H Rate Blood Pressure 62/33 63/34 64/46 O2 Sat by Pulse 95 95 95 Oximetry 11/01/23 11/01/23 11/01/23 03:00 03:15 03:30 Temperature 86.9 F L 88.0 F L Pulse Rate 49 L 48 L 49 L Respiratory 25 H 22 16 Rate Blood Pressure 63/50 87/77 110/66 O2 Sat by Pulse 95 96 96 Oximetry 11/01/23 11/01/23 11/01/23 03:45 04:00 04:15 Temperature 88.0 F L 88.0 F L 88.5 F L Pulse Rate 51 L 49 L 51 L Respiratory 30 H 10 L 17 Rate Blood Pressure 112/70 76/43 76/43 O2 Sat by Pulse 96 96 95 Oximetry 11/01/23 11/01/23 11/01/23 04:30 04:45 05:00 Temperature 88.7 F L 89.1 F L 89.1 F L Pulse Rate 58 L 49 L 57 L Respiratory 22 19 14 Rate Blood Pressure 96/49 74/39 84/42 O2 Sat by Pulse 95 96 97 Oximetry 11/01/23 11/01/23 11/01/23 05:15 05:45 06:00 Temperature 90.3 F L 90.7 F L Pulse Rate 49 L 56 L 54 L Respiratory 19 21 16 Rate Blood Pressure 96/68 110/41 101/48 O2 Sat by Pulse 97 97 97 Oximetry 11/01/23 06:35 Temperature 91.2 F L Pulse Rate 52 L Respiratory 18 Rate Blood Pressure 103/71 O2 Sat by Pulse 96 Oximetry Procedures - Central Line Placement Left Femoral Consent Obtained: verbal consent (Her ) Patient Placed on Monitor/Pulse Ox: Yes MD Prep: mask, gown, gloves Central Line Prep: Chlorhexidine scrub Local Anesthesia Used: Lidocaine 1% Ultrasound Used for Placement: Yes Central Line Lumen Inserted: triple Central Line Position: good blood return, all ports aspirated, flushed, capped, sutured in place with 2-0 silk Dressing Applied: Tegaderm Patient Tolerated Procedure: well Complications: none Medical Decision Making - Medical Decision Making Patient is an 78-year-old woman sent from the halfway for altered mental status and hypotension. On arrival, the patient clinically looks dry, IV is started, and IV fluids started. Patient did have recent episode of CHF report edly with preserved ejection fraction. The patient's stated that she had required intubation for 11 days, and he does not want her to have to go that route again. We discussed CODE STATUS with the patient's states at this point he would like full code. The patient is given empiric antibiotic though no definite source. There are number of white cells in the urine but suspect patient's Hester catheter is colonized. The patient continued to be hypotensive despite fluid bolus and after discussing with patient's they did elect to have central line placed for pressors. I placed the line as per the note. Case discussed with the voice intercept technician group and they did see the patient in the department. The patient had CT of the brain that I interpreted as negative for acute i ntracranial hemorrhage or acute bony injury. The patient had chest x-ray that I interpreted to show mild vascular congestion, no infiltrate, no pneumothorax. Was pt. sent in by a medical professional or institution (, PA, TOMOGRAPHY TECHNOLOGIST, urgent care, hospital, or halfway...) When possible be specific @ -[No] Did you speak to anyone other than the patient for history (EMS, parent, family, police, friend...)? What history was obtained from this source @ -Patient's gave the history Did you review nursing and triage notes (agree or disagree)? Why? @ -[I reviewed and agree with nursing and triage notes] Were old charts reviewed (outside hosp., previous admission, EMS record, old EKG, old radiological studies, urgent care reports/EKG's, halfway records)? Report findings @ -[This old charts were reviewed] Differential Diagnosis (chest pain, altered mental status, abdominal pain women, abdominal pain men, vaginal bleeding, weakness, fever, dyspnea, syncope, headache, dizziness, GI bleed, back pain, seizure, CVA, palpatations, mental health, musculoskeletal)? @ -[Differential Altered Mental Status: Hypoglycemia, DKA, hypercapnia, ETOH, overdose, CO poisoning, trauma, myxedema coma, HTN encephalopathy, infection, encephalitis, psychosis, intercranial hemorrhage, hepatic encephalopathy, meningitis, CVA, this is not meant to be an all-inclusive list EKG interpreted by me (3pts min.). @ -[I interpreted as above] X-rays interpreted by me (1pt min.). @ -I interpreted as above CT interpreted by me (1pt min.). @ -[I interpreted as above U/S interpreted by me (1pt. min.). @ -[None done] What testing was considered but not performed or refused? (CT, X-rays, U/S, la bs)? Why? @ -[None] What meds were considered but not given or refused? Why? @ -[None] Did you discuss the management of the patient with other professionals (professionals i.e. , PA, TOMOGRAPHY TECHNOLOGIST, lab, RT, psych nurse, renal social worker, accountant, teacher, special assets officer, case planner)? Give summary @ -[Case discussed with admitting physician and with the voice intercept technician group and treatment recommendations are incorporated Was smoking cessation discussed for >3mins.? @ -[No] Was critical care preformed (if so, how long)? @ -[Yes, 45 minutes Were there social determinants of health that impacted care today? How? (Homelessness, low income, unemployed, alcoholism, drug addiction, transportation, low edu. Level, literacy, decrease access to med. care, senior living, rehab)? @ -[No] Was there de-escalation of care discussed even if they declined (Discuss DNR or withdrawal of care, Hospice)? DNR status @ -[Yes, see above What co-morbidities impacted this encounter? (DM, HTN, Smoking, COPD, CAD, Cancer, CVA, ARF, Chemo, Hep., AIDS, mental health diagnosis, sleep apnea, morbid obesity)? @ -[Diabetes, congestive heart failure, atrial fibrillation, anemia, thrombocytopenia Was patient admitted / discharged? Hospital course, mention meds given and route, prescriptions, significant lab abnormalities, going to OR and other pertinent info. @ -[Patient is admitted for further supportive treatment and to determine if there is source infection for sepsis. Therapy consults for voice intercept technician, nephrology, cardiology Undiagnosed new problem with uncertain prognosis? @ -[No] Drug Therapy requiring intensive monitoring for toxicity (Heparin, Nitro, Insulin, Cardizem)? @ -[No] Were any procedures done? @ -[Central line placement, see the note Diagnosis/symptom? @ -[ Acute altered mental status SIRS Hypotension Acidosis Acute kidney injury versus chronic renal failure Anemia Thrombocytopenia Acute, or Chronic, or Acute on Chronic? @ -[Acute Uncomplicated (without systemic symptoms) or Complicated (systemic symptoms)? @ -[Complicated by altered mental status Side effects of treatment? @ -[No] Exacerbation, Progression, or Severe Exacerbation? @ -[No] Poses a threat to life or bodily function? How? (Chest pain, [place], [place], pneumonia, PE, COPD, DKA, ARF, appy, cholecystitis, CVA, Diverticulitis, Homicidal, Suicidal, threat to staff... and all critical care pts) @ -[Yes - Lab Data Result diagrams: 11/05/23 05:32 11/05/23 05:32 Lab Results 11/01/23 11/01/23 11/01/23 Range/Units 00:04 00:04 00:04 WBC 8.4 (3.8-10.6) k/uL RBC 2.53 L (3.80-5.40) m/uL Hgb 7.7 L (11.4-16.0) gm/dL Hct 24.4 L (34.0-46.0) % MCV 96.5 (80.0-100.0) fL MCH 30.4 (25.0-35.0) pg MCHC 31.5 (31.0-37.0) g/dL RDW 22.4 H (11.5-15.5) % Plt Count 50 L (150-450) k/uL MPV 12.4 Neutrophils % (Manual) 77 % Lymphocytes % (Manual) 6 % Monocytes % (Manual) 1 % Eosinophils % (Manual) 16 % Neutrophils # (Manual) 6.47 (1.3-7.7) k/uL Lymphocytes # (Manual) 0.50 L (1.0-4.8) k/uL Monocytes # (Manual) 0.08 (0-1.0) k/uL Eosinophils # (Manual) 1.34 H (0-0.7) k/uL Nucleated RBCs 0 (0-0) /100 WBC Manual Slide Review Performed Polychromasia Present Hypochromasia Moderate Poikilocytosis Slight Anisocytosis Moderate Anisocytosis (manual) Present Macrocytosis Moderate Target Cells Present Ovalocytes Present PT 21.1 H (10.0-12.5) sec INR 2.1 H (<1.2) APTT 57.2 H (22.0-30.0) sec Sodium 136 L (137-145) mmol/L Potassium 4.4 (3.5-5.1) mmol/L Chloride 112 H (98-107) mmol/L Carbon Dioxide 13 L (22-30) mmol/L Anion Gap 11 mmol/L BUN 100 H (7-17) mg/dL Creatinine 3.39 H (0.52-1.04) mg/dL Est GFR (CKD-EPI)AfAm 14 (>60 ml/min/1.73 sqM) Est GFR (CKD-EPI)NonAf 12 (>60 ml/min/1.73 sqM) Glucose 133 H (74-99) mg/dL POC Glucose (mg/dL) (70-110) mg/dL POC Glu Maitre D ID Lactic Ac Sepsis Rflx Plasma Lactic Acid Shane (0.7-2.0) mmol/L Calcium 8.7 (8.4-10.2) mg/dL Magnesium 1.8 (1.6-2.3) mg/dL Total Bilirubin 3.0 H (0.2-1.3) mg/dL AST 66 H (14-36) U/L ALT 36 H (4-34) U/L Alkaline Phosphatase 149 H (38-126) U/L Troponin I (0.000-0.034) ng/mL NT-Pro-B Natriuret Pep pg/mL Total Protein 4.9 L (6.3-8.2) g/dL Albumin 2.0 L (3.5-5.0) g/dL Procalcitonin (0.02-0.09) ng/mL Urine Color Urine Appearance (Clear) Urine pH (5.0-8.0) Ur Specific [place] (1.001-1.035) Urine Protein (Negative) Urine Glucose (UA) (Negative) Urine Ketones (Negative) Urine Blood (Negative) Urine Nitrite (Negative) Urine Bilirubin (Negative) Urine Urobilinogen (<2.0) mg/dL Ur Leukocyte Esterase (Negative) Urine RBC (0-5) /hpf Urine WBC (0-5) /hpf Ur Squamous Epith Cells (0-4) /hpf Calcium Oxalate Crystal (None) /hpf Amorphous Sediment (None) /hpf Urine Bacteria (None) /hpf Hyaline Casts (0-2) /lpf Urine Yeast (Budding) (None) /hpf 11/01/23 11/01/23 11/01/23 Range/Units 00:04 00:04 00:04 WBC (3.8-10.6) k/uL RBC (3.80-5.40) m/uL Hgb (11.4-16.0) gm/dL Hct (34.0-46.0) % MCV (80.0-100.0) fL MCH (25.0-35.0) pg MCHC (31.0-37.0) g/dL RDW (11.5-15.5) % Plt Count (150-450) k/uL MPV Neutrophils % (Manual) % Lymphocytes % (Manual) % Monocytes % (Manual) % Eosinophils % (Manual) % Neutrophils # (Manual) (1.3-7.7) k/uL Lymphocytes # (Manual) (1.0-4.8) k/uL Monocytes # (Manual) (0-1.0) k/uL Eosinophils # (Manual) (0-0.7) k/uL Nucleated RBCs (0-0) /100 WBC Manual Slide Review Polychromasia Hypochromasia Poikilocytosis Anisocytosis Anisocytosis (manual) Macrocytosis Target Cells Ovalocytes PT (10.0-12.5) sec INR (<1.2) APTT (22.0-30.0) sec Sodium (137-145) mmol/L Potassium (3.5-5.1) mmol/L Chloride (98-107) mmol/L Carbon Dioxide (22-30) mmol/L Anion Gap mmol/L BUN (7-17) mg/dL Creatinine (0.52-1.04) mg/dL Est GFR (CKD-EPI)AfAm (>60 ml/min/1.73 sqM) Est GFR (CKD-EPI)NonAf (>60 ml/min/1.73 sqM) Glucose (74-99) mg/dL POC Glucose (mg/dL) (70-110) mg/dL POC Glu Maitre D ID Lactic Ac Sepsis Rflx Plasma Lactic Acid Shane (0.7-2.0) mmol/L Calcium (8.4-10.2) mg/dL Magnesium (1.6-2.3) mg/dL Total Bilirubin (0.2-1.3) mg/dL AST (14-36) U/L ALT (4-34) U/L Alkaline Phosphatase (38-126) U/L Troponin I 0.019 (0.000-0.034) ng/mL NT-Pro-B Natriuret Pep 5970 pg/mL Total Protein (6.3-8.2) g/dL Albumin (3.5-5.0) g/dL Procalcitonin 0.16 H (0.02-0.09) ng/mL Urine Color Urine Appearance (Clear) Urine pH (5.0-8.0) Ur Specific [place] (1.001-1.035) Urine Protein (Negative) Urine Glucose (UA) (Negative) Urine Ketones (Negative) Urine Blood (Negative) Urine Nitrite (Negative) Urine Bilirubin (Negative) Urine Urobilinogen (<2.0) mg/dL Ur Leukocyte Esterase (Negative) Urine RBC (0-5) /hpf Urine WBC (0-5) /hpf Ur Squamous Epith Cells (0-4) /hpf Calcium Oxalate Crystal (None) /hpf Amorphous Sediment (None) /hpf Urine Bacteria (None) /hpf Hyaline Casts (0-2) /lpf Urine Yeast (Budding) (None) /hpf 11/01/23 11/01/23 11/01/23 Range/Units 00:38 00:45 01:45 WBC (3.8-10.6) k/uL RBC (3.80-5.40) m/uL Hgb (11.4-16.0) gm/dL Hct (34.0-46.0) % MCV (80.0-100.0) fL MCH (25.0-35.0) pg MCHC (31.0-37.0) g/dL RDW (11.5-15.5) % Plt Count (150-450) k/uL MPV Neutrophils % (Manual) % Lymphocytes % (Manual) % Monocytes % (Manual) % Eosinophils % (Manual) % Neutrophils # (Manual) (1.3-7.7) k/uL Lymphocytes # (Manual) (1.0-4.8) k/uL Monocytes # (Manual) (0-1.0) k/uL Eosinophils # (Manual) (0-0.7) k/uL Nucleated RBCs (0-0) /100 WBC Manual Slide Review Polychromasia Hypochromasia Poikilocytosis Anisocytosis Anisocytosis (manual) Macrocytosis Target Cells Ovalocytes PT (10.0-12.5) sec INR (<1.2) APTT (22.0-30.0) sec Sodium (137-145) mmol/L Potassium (3.5-5.1) mmol/L Chloride (98-107) mmol/L Carbon Dioxide (22-30) mmol/L Anion Gap mmol/L BUN (7-17) mg/dL Creatinine (0.52-1.04) mg/dL Est GFR (CKD-EPI)AfAm (>60 ml/min/1.73 sqM) Est GFR (CKD-EPI)NonAf (>60 ml/min/1.73 sqM) Glucose (74-99) mg/dL POC Glucose (mg/dL) 171 H (70-110) mg/dL POC Glu Maitre D ID Geo Brandt Lactic Ac Sepsis Rflx Plasma Lactic Acid Shane 2.6 H* (0.7-2.0) mmol/L Calcium (8.4-10.2) mg/dL Magnesium (1.6-2.3) mg/dL Total Bilirubin (0.2-1.3) mg/dL AST (14-36) U/L ALT (4-34) U/L Alkaline Phosphatase (38-126) U/L Troponin I (0.000-0.034) ng/mL NT-Pro-B Natriuret Pep pg/mL Total Protein (6.3-8.2) g/dL Albumin (3.5-5.0) g/dL Procalcitonin (0.02-0.09) ng/mL Urine Color Yellow Urine Appearance Turbid H (Clear) Urine pH 6.0 (5.0-8.0) Ur Specific [place] 1.017 (1.001-1.035) Urine Protein 2+ H (Negative) Urine Glucose (UA) Negative (Negative) Urine Ketones Negative (Negative) Urine Blood Moderate H (Negative) Urine Nitrite Negative (Negative) Urine Bilirubin Negative (Negative) Urine Urobilinogen <2.0 (<2.0) mg/dL Ur Leukocyte Esterase Large H (Negative) Urine RBC 11 H (0-5) /hpf Urine WBC 78 H (0-5) /hpf Ur Squamous Epith Cells 16 H (0-4) /hpf Calcium Oxalate Crystal Occasional H (None) /hpf Amorphous Sediment Rare H (None) /hpf Urine Bacteria Many H (None) /hpf Hyaline Casts 8 H (0-2) /lpf Urine Yeast (Budding) Many H (None) /hpf // Range/Units 02:15 WBC (3.8-10.6) k/uL RBC (3.80-5.40) m/uL Hgb (11.4-16.0) gm/dL Hct (34.0-46.0) % MCV (80.0-100.0) fL MCH (25.0-35.0) pg MCHC (31.0-37.0) g/dL RDW (11.5-15.5) % Plt Count (150-450) k/uL MPV Neutrophils % (Manual) % Lymphocytes % (Manual) % Monocytes % (Manual) % Eosinophils % (Manual) % Neutrophils # (Manual) (1.3-7.7) k/uL Lymphocytes # (Manual) (1.0-4.8) k/uL Monocytes # (Manual) (0-1.0) k/uL Eosinophils # (Manual) (0-0.7) k/uL Nucleated RBCs (0-0) /100 WBC Manual Slide Review Polychromasia Hypochromasia Poikilocytosis Anisocytosis Anisocytosis (manual) Macrocytosis Target Cells Ovalocytes PT (10.0-12.5) sec INR (<1.2) APTT (22.0-30.0) sec Sodium (137-145) mmol/L Potassium (3.5-5.1) mmol/L Chloride (98-107) mmol/L Carbon Dioxide (22-30) mmol/L Anion Gap mmol/L BUN (7-17) mg/dL Creatinine (0.52-1.04) mg/dL Est GFR (CKD-EPI)AfAm (>60 ml/min/1.73 sqM) Est GFR (CKD-EPI)NonAf (>60 ml/min/1.73 sqM) Glucose (74-99) mg/dL POC Glucose (mg/dL) (70-110) mg/dL POC Glu Maitre D ID Lactic Ac Sepsis Rflx Y Plasma Lactic Acid Shane (0.7-2.0) mmol/L Calcium (8.4-10.2) mg/dL Magnesium (1.6-2.3) mg/dL Total Bilirubin (0.2-1.3) mg/dL AST (14-36) U/L ALT (4-34) U/L Alkaline Phosphatase (38-126) U/L Troponin I (0.000-0.034) ng/mL NT-Pro-B Natriuret Pep pg/mL Total Protein (6.3-8.2) g/dL Albumin (3.5-5.0) g/dL Procalcitonin (0.02-0.09) ng/mL Urine Color Urine Appearance (Clear) Urine pH (5.0-8.0) Ur Specific [place] (1.001-1.035) Urine Protein (Negative) Urine Glucose (UA) (Negative) Urine Ketones (Negative) Urine Blood (Negative) Urine Nitrite (Negative) Urine Bilirubin (Negative) Urine Urobilinogen (<2.0) mg/dL Ur Leukocyte Esterase (Negative) Urine RBC (0-5) /hpf Urine WBC (0-5) /hpf Ur Squamous Epith Cells (0-4) /hpf Calcium Oxalate Crystal (None) /hpf Amorphous Sediment (None) /hpf Urine Bacteria (None) /hpf Hyaline Casts (0-2) /lpf Urine Yeast (Budding) (None) /hpf Critical Care Time Critical Care Time: Yes (45 minutes) Disposition Clinical Impression: Anemia, SIRS (systemic inflammatory response syndrome), Acute delirium Disposition: ADMITTED IP TO THIS [facility] Condition: Poor
[2023-11-01] MEDS: SODIUM CHLORIDE 0.9% 1,000 ML IV ONE ×4 (00:19→11:39)
[2023-11-01 00:40] LABS: Glucose,Whole Blood 171 mg/dL (70-110)
[2023-11-01 00:42] LABS: INR 2.1 (<1.2); Partial Thromboplastin Time 57.2 sec (22.0-30.0); Prothrombin Time 21.1 sec (10.0-12.5)
[2023-11-01 00:47] LABS: ALT 36 U/L (4-34); AST 66 U/L (14-36); African American GFR (CKD) 14 (>60 ml/min/1.73 sqM); Alkaline Phosphatase 149 U/L (38-126); Anion Gap 11 mmol/L; Blood Urea Nitrogen 100 mg/dL (7-17); Calcium 8.7 mg/dL (8.4-10.2); Carbon Dioxide 13 mmol/L (22-30); Chloride 112 mmol/L (98-107); Glucose 133 mg/dL (74-99); Magnesium 1.8 mg/dL (1.6-2.3); Non-African American GFR(CKD) 12 (>60 ml/min/1.73 sqM); Potassium 4.4 mmol/L (3.5-5.1); Sodium 136 mmol/L (137-145); Total Protein 4.9 g/dL (6.3-8.2)
[2023-11-01 00:59] LABS: Anisocytosis Moderate; HCT 24.4 % (34.0-46.0); HGB 7.7 gm/dL (11.4-16.0); Hypochromasia Moderate; MCH 30.4 pg (25.0-35.0); MCHC 31.5 g/dL (31.0-37.0); MCV 96.5 fL (80.0-100.0); Macrocytosis Moderate; Mean Platelet Volume 12.4; Poikilocytosis Slight; RBC 2.53 m/uL (3.80-5.40); RDW 22.4 % (11.5-15.5); WBC 8.4 k/uL (3.8-10.6)
[2023-11-01 01:16] LABS: Amorphous Sediment,Urine Rare /hpf; Appearance,Urine Turbid (Clear); Bacteria,Urine Many /hpf; Bilirubin,Urine Negative (Negative); Blood,Urine Moderate (Negative); Budding Yeast,Urine Many /hpf; Calcium Oxalate Crystals,Urine Occasional /hpf; Color,Urine Yellow; Glucose,Urine (UA) Negative (Negative); Hyaline Casts,Urine 8 /lpf (0-2); Ketones,Urine Negative (Negative); Leukocyte Esterase,Urine Large (Negative); Nitrite,Urine Negative (Negative); Protein,Urine 2+ (Negative); RBC,Urine 11 /hpf (0-5); Specific Gravity,Urine 1.017 (1.001-1.035); Squamous Epithelial Cell,Urine 16 /hpf (0-4); Urobilinogen,Urine <2.0 mg/dL (<2.0); WBC,Urine 78 /hpf (0-5)
[2023-11-01 01:16] LABS: Platelet Count 50 k/uL (150-450)
[2023-11-01] MEDS: SODIUM CHLORIDE 0.9% 1,000 ML IV STA (02:23)
[2023-11-01] MEDS: NOREPINEPHRINE 4 MG in SODIUM CHLORIDE 0.9% 250 ML IV SCH (02:58)
--- NOTE | 2023-11-01 03:17 | XR ---
EXAM: XR Chest, 1 View CLINICAL HISTORY: ITS.REASON XR Reason: altered mental status TECHNIQUE: Frontal view of the chest. COMPARISON: No relevant prior studies available. IMPRESSION: Cardiomegaly. Mild vascular congestion.
[2023-11-01 03:23] LABS: Anisocytosis (M) Present; Eosinophils # (M) 1.34 k/uL (0-0.7); Monocytes # (M) 0.08 k/uL (0-1.0); Neutrophils # (M) 6.47 k/uL (1.3-7.7); Neutrophils % (M) 77 %; Nucleated Red Blood Cells 0 /100 WBC (0-0); Ovalocytes Present; Polychromasia Present; Target Cells Present; Total Cells Counted 100
--- NOTE | 2023-11-01 03:52 | CT ---
EXAM: CT Head Without Intravenous Contrast CLINICAL HISTORY: ITS.REASON CT Reason: altered mental status TECHNIQUE: Axial computed tomography images of the head/brain without intravenous contrast. CTDI is 49.1 mGy and DLP is 1134 mGy-cm. This CT exam was performed using one or more of the following dose reduction techniques: automated exposure control, adjustment of the mA and/or kV according to patient size, and/or use of iterative reconstruction technique. COMPARISON: No relevant prior studies available. FINDINGS: Brain: No hemorrhage, herniation, or mass effect. Ventricles: No hydrocephalus. Age related cerebral volume loss. Bones/joints: Unremarkable. Soft tissues: Unremarkable. Sinuses: No air fluid levels. Mastoid air cells: Clear. IMPRESSION: No acute hemorrhage, hydrocephalus, or mass effect.
[2023-11-01] MEDS ORDERED: SODIUM CHLORIDE 0.9% 1,000 ML IV SCH (06:00)
[2023-11-01] MEDS: NOREPINEPHRINE 32 MG in SODIUM CHLORIDE 0.9% 218 ML IV SCH (07:40)
--- NOTE | 2023-11-01 07:41 | P.CNPUL ---
History of Present Illness Consult date: 11/01/23 Requesting physician: Chito Woo Reason for consult: other (Hypotension and shock, possible sepsis) Chief complaint: Altered mental status History of present illness: Patient is an 78-year-old white female with past medical history significant for chronic bronchial asthma, heart failure with preserved ejection fraction, atrial fibrillation not currently on anticoagulation, GI bleed, previous cholecystitis status post laparoscopic cholecystectomy, previous gastric perforation, inclusion body myositis, chronic right lower extremity wound, among other things. She is very debilitated at baseline and has had multiple hospitalizations this year. She is currently a retirement resident. Of note, patient was just recently discharged from the hospital approximately 1 week ago. She was thought to have upper GI bleed. Underwent EGD on 10/23/2023 which did not find any active GI bleeding, there was mild antral gastritis and duodenitis but no evidence of peptic ulcer disease. Early this morning, she was sent in from her [facility] for altered mental status. We were asked to evaluate this patient as she has been noted to be profoundly hypotensive refractory at initial attempts of fluid resuscitation of total 2 L normal saline bolus. Currently on norepinephrine infusion at 0.08 mcg/kg/min. She is also noted to be bradycardic and hypothermic. Initial temperature noted to be 84 F on arrival and is up to 90.7 F. External warming blanket on. She is [facility], trauma bay 2. Her eyes are open, but she does not respond to any my questioning. Will withdraw to painful stimuli. Brain CT without contrast did not show any acute hemorrhage, hydrocephalus, or mass effect. She is currently on room air, SpO2 97%. No signs of respiratory distress. Chest x-ray shows mild cardiomegaly with mild pulmonary vascular congestion. No obvious focal infiltrates or evidence of pneumonia. Patient did present with an indwelling urinary catheter. Urinalysis showing pyuria and bacteriuria. CBC: WBC count 8.4, hemoglobin 7.7, hematocrit 24.4, platelets 50,000. PT 21.1. INR 2.1. aPTT 57.2. CMP: Sodium 136, potassium 4.4, chloride 112, serum bicarb 13, BUN 100, creatinine 3.39, glucose 133. Lactic acid level 2.6. LFTs mildly elevated. Troponin 0.019. NT proBNP 5970. Dr. Spencer is going to insert a central line catheter, and the patient will be admitted to the intensive care unit when bed available. 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 History of Any Multi-Drug Resistant Organisms: None Reported Past Surgical History: Cholecystectomy, Heart Catheterization Additional Past Surgical History / Comment(s): EYE SURGERY DUE TO INJURY, EGD, COLONOSCOPY, BONE MARROW BIOPSY, cataracts, muscle biopsy, Past Anesthesia/Blood Transfusion Reactions: No Reported Reaction Past Psychological History: No Psychological Hx Reported Smoking Status: Never smoker Past Alcohol Use History: Occasional Past Drug Use History: None Reported - Past Family History Sister(s) Family Medical History: Cancer Additional Family Medical History / Comment(s): LEUKEMIA- at age 42 Brother(s) Family Medical History: Cancer Additional Family Medical History / Comment(s): with unknown type CA at age 60s Medications and Allergies Home Medications Medication Instructions Recorded Confirmed Type Albuterol Sulfate [Ventolin HFA] 2 puff INHALATION RT-Q4H PRN 08/03/23 11/01/23 History Acetaminophen Tab [Tylenol] 650 mg PO Q6HR PRN 10/19/23 11/01/23 History Docusate [Colace] 100 mg PO BID 10/19/23 11/01/23 History Metoprolol Tartrate [Lopressor] 50 mg PO Q8H 10/19/23 11/01/23 History Albuterol Nebulized [Ventolin 2.5 mg INHALATION RT-Q4H PRN ml 10/25/23 11/01/23 Rx Nebulized] Potassium Chloride ER [K-Dur 20] 20 meq PO DAILY tab 10/25/23 11/01/23 Rx Sodium Bicarbonate Tab 650 mg PO BID tab 10/25/23 11/01/23 Rx Dakins (1/2 Strength) 1 applic TOPICAL BID 11/01/23 11/01/23 History Dakins (1/2 Strength) 1 applic TOPICAL DAILY PRN 11/01/23 11/01/23 History Darbepoetin Luis Alberto [Aranesp] 40 mcg SQ WE 11/01/23 11/01/23 History Furosemide [Lasix] 40 mg PO DIRECTED 11/01/23 11/01/23 History Lactose-Reduced Food [Ensure Plus] 237 ml PO QID 11/01/23 11/01/23 History Midodrine [ProAmatine] 5 mg PO TID 11/01/23 11/01/23 History Allergies Allergy/AdvReac Type Severity Reaction Status Date / Time omeprazole [From Prilosec] Allergy Unknown Rash/Hives, Verified 10/19/23 09:55 TONGUE SWELLLING omeprazole magnesium Allergy Unknown Rash/Hives, Verified 10/19/23 09:55 [From Prilosec] TONGUE SWELLLING Penicillins Allergy Unknown Rash/Hives/ Verified 10/19/23 09:55 Itching amlodipine Allergy fide pedal Verified 10/19/23 09:55 edema, loss voice carvedilol Allergy shortness Verified 10/19/23 09:55 of breath lisinopril Allergy Unknown Verified 10/19/23 09:55 Physical Exam Vitals: Vital Signs Temp Pulse Resp BP Pulse Ox 11/01/23 06:00 90.7 F L 54 L 16 101/48 97 11/01/23 05:45 90.3 F L 56 L 21 110/41 97 11/01/23 05:15 49 L 19 96/68 97 11/01/23 05:00 89.1 F L 57 L 14 84/42 97 11/01/23 04:45 89.1 F L 49 L 19 74/39 96 11/01/23 04:30 88.7 F L 58 L 22 96/49 95 11/01/23 04:15 88.5 F L 51 L 17 76/43 95 11/01/23 04:00 88.0 F L 49 L 10 L 76/43 96 11/01/23 03:45 88.0 F L 51 L 30 H 112/70 96 11/01/23 03:30 88.0 F L 49 L 16 110/66 96 11/01/23 03:15 48 L 22 87/77 96 11/01/23 03:00 86.9 F L 49 L 25 H 63/50 95 11/01/23 02:45 52 L 25 H 64/46 95 11/01/23 02:30 84.0 F L 49 L 21 63/34 95 11/01/23 02:15 50 L 35 H 62/33 95 11/01/23 02:00 87.4 F L 48 L 16 74/33 98 11/01/23 01:55 50 L 16 74/33 96 11/01/23 01:45 46 L 24 74/33 95 11/01/23 01:37 87.3 F L 11/01/23 01:15 49 L 22 78/48 99 11/01/23 01:00 47 L 29 H 79/35 99 11/01/23 00:45 50 L 17 84/47 97 11/01/23 00:30 48 L 25 H 91/61 97 11/01/23 00:15 28 L 48 H 100/63 97 11/01/23 00:00 48 L 28 H 90/50 97 10/31/23 23:45 50 L 22 84/47 97 10/31/23 23:43 48 L 19 98 Intake and Output 10/31/23 10/31/23 11/01/23 14:59 22:59 06:59 Intake Total 55.015 Balance 55.015 Intake: Intake, IV Titration 55.015 Amount Norepinephrine 4 mg In 55.015 Sodium Chloride 0.9% 250 ml @ 0.03 MCG/KG/MIN 10. 369 mls/hr IV .Q24H [facility] Rx#:[id number] Other: Weight 90.718 kg GENERAL EXAM: Disheveled, 78-year-old white female, with open eyes but does not make eye contact or track, no signs of acute distress. HEAD: Normocephalic and atraumatic EYES: Normal reaction of pupils, equal size. NOSE: Clear with pink turbinates. THROAT: No erythema or exudates. NECK: No masses, no JVD. CHEST: No chest wall deformity. LUNGS: Equal air entry with no crackles, wheeze, rhonchi or dullness. On room air. No accessory muscle use. CVS: S1 and S2 normal with no audible murmur, regular rhythm. No extra heart sounds ABDOMEN: Obese abdomen, no hepatosplenomegaly, active bowel sounds, no guarding or rigidity. SPINE: No scoliosis or deformity SKIN: No rashes CENTRAL NERVOUS SYSTEM: No focal deficits, tone is normal in all 4 extremities. EXTREMITIES: Bilateral lower extremity pitting edema 1-2+, right leg is wrapped with Sky bandage. No clubbing, or cyanosis. Peripheral pulses are intact. Results - Laboratory Findings CBC and BMP: 11/01/23 00:04 11/01/23 00:04 PT/INR, D-dimer PT 21.1 sec (10.0-12.5) H 11/01/23 00:04 INR 2.1 (<1.2) H 11/01/23 00:04 Abnormal lab findings: Abnormal Labs 11/01/23 11/01/23 11/01/23 00:04 00:04 00:04 RBC 2.53 L Hgb 7.7 L Hct 24.4 L RDW 22.4 H Plt Count 50 L Lymphocytes # (Manual) 0.50 L Eosinophils # (Manual) 1.34 H PT 21.1 H INR 2.1 H APTT 57.2 H Sodium 136 L Chloride 112 H Carbon Dioxide 13 L BUN 100 H Creatinine 3.39 H Glucose 133 H POC Glucose (mg/dL) Plasma Lactic Acid Shane Total Bilirubin 3.0 H AST 66 H ALT 36 H Alkaline Phosphatase 149 H Total Protein 4.9 L Albumin 2.0 L Urine Appearance Urine Protein Urine Blood Ur Leukocyte Esterase Urine RBC Urine WBC Ur Squamous Epith Cells Calcium Oxalate Crystal Amorphous Sediment Urine Bacteria Hyaline Casts Urine Yeast (Budding) 11/01/23 11/01/23 11/01/23 00:38 00:45 01:45 RBC Hgb Hct RDW Plt Count Lymphocytes # (Manual) Eosinophils # (Manual) PT INR APTT Sodium Chloride Carbon Dioxide BUN Creatinine Glucose POC Glucose (mg/dL) 171 H Plasma Lactic Acid Shane 2.6 H* Total Bilirubin AST ALT Alkaline Phosphatase Total Protein Albumin Urine Appearance Turbid H Urine Protein 2+ H Urine Blood Moderate H Ur Leukocyte Esterase Large H Urine RBC 11 H Urine WBC 78 H Ur Squamous Epith Cells 16 H Calcium Oxalate Crystal Occasional H Amorphous Sediment Rare H Urine Bacteria Many H Hyaline Casts 8 H Urine Yeast (Budding) Many H - Diagnostic Findings Chest x-ray: image reviewed Assessment and Plan Assessment: Acute hypotension and shock, suspect septic shock, possible urosepsis Hypothermia and sinus bradycardia with first degree AV block, external blanket warmer on Non-anion gap metabolic acidosis Acute on chronic kidney disease, likely secondary to hypotension and ATN, and the patient has chronic stage IIIb kidney failure. Altered mental status, suspect component of acute metabolic encephalopathy, possibly secondary to sepsis Chronic anemia, hemoglobin stable at 7.7 g/dL Chronic kidney disease stage IIIb Chronic thrombocytopenia Mild transaminitis Chronic lower right lower extremity wound History of heart failure with preserved ejection fraction History of paroxysmal atrial fibrillation, not currently on any anticoagulation History of chronic bronchial asthma, does not appear active History of GI bleed, recently underwent EGD on 10/23/23, no active bleeding was identified. There was mild antral gastritis and duodenitis but no evidence of peptic ulcer disease. There was a small hiatal hernia. History of cholecystitis status post laparoscopic cholecystectomy 08/06/2023 History of gastric perforation, with diagnostic laparoscopic repair on 06/15/2023 History of inclusion body myositis Obesity with a BMI of 32.3 kg/m Chronic medical debility and retirement resident Plan: Patient's medications, labs, imaging reviewed Continue vasopressor support in the form of norepinephrine. ER physician is going to insert a triple-lumen central line catheter. Follow-up abdominal CT pending, however, abdomen does not appear acute on my examination Consult infectious disease for antibiotic management. Patient has had multiple previous infections with gram resistant organisms. Pancultures are pending Add sodium bicarbonate infusion 3 A in D5W external warming blacket is on. Replace woods catheter. Wound care consult. Patient is going to be admitted to the intensive care unit once bed available Overall prognosis is guarded secondary to multiple above-mentioned complex medical comorbidities I have personally seen and examined the patient, performed the documentation and the assessment and plan as written. Number of minutes spent on the visit:20 On today's evaluation of 11/01/2023, I am seeing the patient in a joint evaluation along with the nurse practitioner. This evaluation was done and 30 minutes. For now, the patient has diminished level of consciousness. She may be potentially septic from a urinary source. The patient also has a large wound in her right lower extremity which is being evaluated by wound services. No evidence of pneumonia and the patient is currently on room air oxygen. The patient is currently on a bicarb infusion which is running at 100 cc an hour. The patient is also on norepinephrine infusion for hemodynamic support running at 0.11 mcg/kg/min. Her cardiac rhythm is sinus. She is mildly coagulopathic which could be essentially nutritional. Woods catheter is in place. Urine cultures and blood cultures still pending for now. Based on previous microbiology, the patient has been infected with Enterococcus in her urine in the past and the patient was also treated for Acinetobacter sepsis. The last positive blood culture was on 09/22/2023. The last urine culture that was positive was on 10/24/2023. Will cover the patient with a combination of cefepime and daptomycin pending further cultures. Will continue to follow. Monitor mental status. Continue bicarb infusion. Continue pressors. Give the patient another bolus of liter of normal saline. She is a retirement resident and her CODE STATUS is full. Will continue to follow. A dose of vitamin K 10 mg will be given also regarding his coagulopathy which is prior related to nutritional vitamin K deficiency. She is not utilizing any form of anticoagulants for now. Time with Patient: Greater than 30
--- NOTE | 2023-11-01 08:30 | CT ---
EXAMINATION TYPE: CT abdomen pelvis wo con DATE OF EXAM: 11/01/2023 COMPARISON: None HISTORY: Pain Examination of the solid and hollow viscera is limited given the lack of contrast. FINDINGS: Basilar pleural effusions and compressive atelectasis noted. LUNG BASES: No evidence for nodule. No evidence for infiltrate. LIVER/GB: Hepatic heterogeneity could reflect underlying lesions. Clinically. The gallbladder is unre markable. No space-occupying hepatic lesion. PANCREAS: No pancreatic mass identified. No inflammatory process seen. SPLEEN: No evidence for splenomegaly. No intrasplenic lesions seen. ADRENALS: No adrenal nodules identified. No evidence for thickening. KIDNEYS: No evidence for renal mass. No nephrolithiasis. No hydronephrosis. BOWEL: Appendix has a normal appearance. No evidence of bowel obstruction. No inflammatory process. Lymph nodes: No evidence for adenopathy greater than 1 cm. Abdominal aorta: Atheromatous changes seen. No evidence for aneurysm. Genital organs: No significant abnormality. Other: Small amount of ascites about the liver edge. There is fluid throughout the subcutaneous tissu es compatible with anasarca. 1. Features of anasarca. 2. Heterogeneity throughout. Correlate with ultrasound. 3. Small amount of ascites as well as basilar pleural effusions and compressive atelectasis. IMPRESSION:
--- NOTE | 2023-11-01 09:15 | XR ---
EXAMINATION TYPE: XR foot complete RT DATE OF EXAM: 11/01/2023 CLINICAL HISTORY: pain TECHNIQUE: Frontal, lateral and oblique images of the left foot are obtained. COMPARISON: None. FINDINGS: There is no acute fracture/dislocation evident. The joint spaces appear within normal cavanaugh its. The overlying soft tissue appears unremarkable. IMPRESSION: There is no acute fracture or dislocation. ICD 10 NO FRACTURE, INITIAL EVALUATION
[2023-11-01] MEDS: DEXTROSE 5% IN WATER 1,000 ML with SODIUM BICARB (1 MEQ/ML) 150 ML IV SCH (09:17)
[2023-11-01] MEDS: FAMOTIDINE 20 MG/2 ML VIAL IV SCH (09:17)
--- NOTE | 2023-11-01 10:23 | P.CONS ---
History of Present Illness - Reason for Consult Consult date: 11/01/23 wound care - History of Present Illness This is an 78-year-old patient with past medical history significant for venous stasis ulcer. Patient was seen approximately 1 month ago at that time the ulceration measured approximately 4 x 4 x 0.2 cm and honey gel was applied at this time ulceration has significantly declined measuring approximately 8 x 4 x 0.2 cm with significant amount of eschar slough and nonviable tissue. Minimal to no granulation noted within the wound bed no tunneling or undermining noted. Review of systems: Unable to obtain due to patient's mental status Physical exam: General Appearance: Alert, cooperative, no distress, appears stated age. Skin: See HPI all other Skin color, texture, tugor normal, no rashes or lesions. Neurologic: Alert oriented x3 Assessment: 1.Nonhealing ulceration with fat layer exposure other part of right lower extremity 2. Nonhealing ulceration right calf with fat layer exposure Plan: 1.Apply Santyl [id number] a nickel in depth, saline moist gauze, dry gauze, rolled gauze and secure with paper tape. Consideration for vascular consult for possible surgical debridement if patient is up to it. Otherwise continue with Santyl Patient has a right medial posterior ulceration if unable to change daily may apply honey gel to the site and change Saturday. Thank you for the consultation any questions please contact the wound care center DNP note has been reviewed and discussed with Dr. Abarca and the impression and plan of care has been directed as dictated. 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 History of Any Multi-Drug Resistant Organisms: None Reported Past Surgical History: Cholecystectomy, Heart Catheterization Additional Past Surgical History / Comment(s): EYE SURGERY DUE TO INJURY, EGD, COLONOSCOPY, BONE MARROW BIOPSY, cataracts, muscle biopsy, Past Anesthesia/Blood Transfusion Reactions: No Reported Reaction Past Psychological History: No Psychological Hx Reported Smoking Status: Never smoker Past Alcohol Use History: Occasional Past Drug Use History: None Reported - Past Family History Sister(s) Family Medical History: Cancer Additional Family Medical History / Comment(s): LEUKEMIA- at age 42 Brother(s) Family Medical History: Cancer Additional Family Medical History / Comment(s): with unknown type CA at age 60s Medications and Allergies Home Medications Medication Instructions Recorded Confirmed Type Albuterol Sulfate [Ventolin HFA] 2 puff INHALATION RT-Q4H PRN 08/03/23 11/01/23 History Acetaminophen Tab [Tylenol] 650 mg PO Q6HR PRN 10/19/23 11/01/23 History Docusate [Colace] 100 mg PO BID 10/19/23 11/01/23 History Metoprolol Tartrate [Lopressor] 50 mg PO Q8H 10/19/23 11/01/23 History Albuterol Nebulized [Ventolin 2.5 mg INHALATION RT-Q4H PRN ml 10/25/23 11/01/23 Rx Nebulized] Potassium Chloride ER [K-Dur 20] 20 meq PO DAILY tab 10/25/23 11/01/23 Rx Sodium Bicarbonate Tab 650 mg PO BID tab 10/25/23 11/01/23 Rx Dakins (1/2 Strength) 1 applic TOPICAL BID 11/01/23 11/01/23 History Dakins (1/2 Strength) 1 applic TOPICAL DAILY PRN 11/01/23 11/01/23 History Darbepoetin Luis Alberto [Aranesp] 40 mcg SQ WE 11/01/23 11/01/23 History Furosemide [Lasix] 40 mg PO DIRECTED 11/01/23 11/01/23 History Lactose-Reduced Food [Ensure Plus] 237 ml PO QID 11/01/23 11/01/23 History Midodrine [ProAmatine] 5 mg PO TID 11/01/23 11/01/23 History Allergies Allergy/AdvReac Type Severity Reaction Status Date / Time omeprazole [From Prilosec] Allergy Unknown Rash/Hives, Verified 10/19/23 09:55 TONGUE SWELLLING omeprazole magnesium Allergy Unknown Rash/Hives, Verified 10/19/23 09:55 [From Prilosec] TONGUE SWELLLING Penicillins Allergy Unknown Rash/Hives/ Verified 10/19/23 09:55 Itching amlodipine Allergy fide pedal Verified 10/19/23 09:55 edema, loss voice carvedilol Allergy shortness Verified 10/19/23 09:55 of breath lisinopril Allergy Unknown Verified 10/19/23 09:55 Physical Exam Vitals: Vital Signs Temp Pulse Resp BP Pulse Ox 11/01/23 07:30 57 L 16 110/62 95 11/01/23 07:20 56 L 23 110/62 96 11/01/23 07:10 56 L 15 108/67 95 11/01/23 07:00 90.0 F L 52 L 21 93/60 95 11/01/23 06:50 58 L 12 93/60 96 11/01/23 06:35 91.2 F L 52 L 18 103/71 96 11/01/23 06:00 90.7 F L 54 L 16 101/48 97 11/01/23 05:45 90.3 F L 56 L 21 110/41 97 11/01/23 05:15 49 L 19 96/68 97 11/01/23 05:00 89.1 F L 57 L 14 84/42 97 11/01/23 04:45 89.1 F L 49 L 19 74/39 96 11/01/23 04:30 88.7 F L 58 L 22 96/49 95 11/01/23 04:15 88.5 F L 51 L 17 76/43 95 11/01/23 04:00 88.0 F L 49 L 10 L 76/43 96 11/01/23 03:45 88.0 F L 51 L 30 H 112/70 96 11/01/23 03:30 88.0 F L 49 L 16 110/66 96 11/01/23 03:15 48 L 22 87/77 96 11/01/23 03:00 86.9 F L 49 L 25 H 63/50 95 11/01/23 02:45 52 L 25 H 64/46 95 11/01/23 02:30 84.0 F L 49 L 21 63/34 95 11/01/23 02:15 50 L 35 H 62/33 95 11/01/23 02:00 87.4 F L 48 L 16 74/33 98 11/01/23 01:55 50 L 16 74/33 96 11/01/23 01:45 46 L 24 74/33 95 11/01/23 01:37 87.3 F L 11/01/23 01:15 49 L 22 78/48 99 06/14/24 01:00 47 L 29 H 79/35 99 11/01/23 00:45 50 L 17 84/47 97 11/01/23 00:30 48 L 25 H 91/61 97 11/01/23 00:15 28 L 48 H 100/63 97 11/01/23 00:00 48 L 28 H 90/50 97 10/31/23 23:45 50 L 22 84/47 97 10/31/23 23:43 48 L 19 98 Intake and Output 10/31/23 11/01/23 11/01/23 22:59 06:59 14:59 Intake Total 55.015 130 Output Total 5 Balance 55.015 125 Intake: IV 130 Sodium Chloride 0.9% 1, 130 000 ml @ 130 mls/hr IV . Q7H42M [facility] Rx#:[id number] Intake, IV Titration 55.015 Amount Norepinephrine 4 mg In 55.015 Sodium Chloride 0.9% 250 ml @ 0.03 MCG/KG/MIN 10. 369 mls/hr IV .Q24H [facility] Rx#:[id number] Output: Urine 5 Other: Weight 90.718 kg Results CBC & Chem 7: 11/01/23 00:04 11/01/23 00:04 Labs: Abnormal Lab Results - Last 24 Hours (Table) 11/01/23 11/01/23 11/01/23 Range/Units 00:04 00:04 00:04 RBC 2.53 L (3.80-5.40) m/uL Hgb 7.7 L (11.4-16.0) gm/dL Hct 24.4 L (34.0-46.0) % RDW 22.4 H (11.5-15.5) % Plt Count 50 L (150-450) k/uL Lymphocytes # (Manual) 0.50 L (1.0-4.8) k/uL Eosinophils # (Manual) 1.34 H (0-0.7) k/uL PT 21.1 H (10.0-12.5) sec INR 2.1 H (<1.2) APTT 57.2 H (22.0-30.0) sec Sodium 136 L (137-145) mmol/L Chloride 112 H (98-107) mmol/L Carbon Dioxide 13 L (22-30) mmol/L BUN 100 H (7-17) mg/dL Creatinine 3.39 H (0.52-1.04) mg/dL Glucose 133 H (74-99) mg/dL POC Glucose (mg/dL) (70-110) mg/dL Plasma Lactic Acid Shane (0.7-2.0) mmol/L Total Bilirubin 3.0 H (0.2-1.3) mg/dL AST 66 H (14-36) U/L ALT 36 H (4-34) U/L Alkaline Phosphatase 149 H (38-126) U/L Total Protein 4.9 L (6.3-8.2) g/dL Albumin 2.0 L (3.5-5.0) g/dL Urine Appearance (Clear) Urine Protein (Negative) Urine Blood (Negative) Ur Leukocyte Esterase (Negative) Urine RBC (0-5) /hpf Urine WBC (0-5) /hpf Ur Squamous Epith Cells (0-4) /hpf Calcium Oxalate Crystal (None) /hpf Amorphous Sediment (None) /hpf Urine Bacteria (None) /hpf Hyaline Casts (0-2) /lpf Urine Yeast (Budding) (None) /hpf 11/01/23 11/01/23 11/01/23 Range/Units 00:38 00:45 01:45 RBC (3.80-5.40) m/uL Hgb (11.4-16.0) gm/dL Hct (34.0-46.0) % RDW (11.5-15.5) % Plt Count (150-450) k/uL Lymphocytes # (Manual) (1.0-4.8) k/uL Eosinophils # (Manual) (0-0.7) k/uL PT (10.0-12.5) sec INR (<1.2) APTT (22.0-30.0) sec Sodium (137-145) mmol/L Chloride (98-107) mmol/L Carbon Dioxide (22-30) mmol/L BUN (7-17) mg/dL Creatinine (0.52-1.04) mg/dL Glucose (74-99) mg/dL POC Glucose (mg/dL) 171 H (70-110) mg/dL Plasma Lactic Acid Shane 2.6 H* (0.7-2.0) mmol/L Total Bilirubin (0.2-1.3) mg/dL AST (14-36) U/L ALT (4-34) U/L Alkaline Phosphatase (38-126) U/L Total Protein (6.3-8.2) g/dL Albumin (3.5-5.0) g/dL Urine Appearance Turbid H (Clear) Urine Protein 2+ H (Negative) Urine Blood Moderate H (Negative) Ur Leukocyte Esterase Large H (Negative) Urine RBC 11 H (0-5) /hpf Urine WBC 78 H (0-5) /hpf Ur Squamous Epith Cells 16 H (0-4) /hpf Calcium Oxalate Crystal Occasional H (None) /hpf Amorphous Sediment Rare H (None) /hpf Urine Bacteria Many H (None) /hpf Hyaline Casts 8 H (0-2) /lpf Urine Yeast (Budding) Many H (None) /hpf 11/01/23 11/01/23 Range/Units 06:31 09:20 RBC (3.80-5.40) m/uL Hgb (11.4-16.0) gm/dL Hct (34.0-46.0) % RDW (11.5-15.5) % Plt Count (150-450) k/uL Lymphocytes # (Manual) (1.0-4.8) k/uL Eosinophils # (Manual) (0-0.7) k/uL PT (10.0-12.5) sec INR (<1.2) APTT (22.0-30.0) sec Sodium (137-145) mmol/L Chloride (98-107) mmol/L Carbon Dioxide (22-30) mmol/L BUN (7-17) mg/dL Creatinine (0.52-1.04) mg/dL Glucose (74-99) mg/dL POC Glucose (mg/dL) (70-110) mg/dL Plasma Lactic Acid Shane 2.7 H* 2.6 H* (0.7-2.0) mmol/L Total Bilirubin (0.2-1.3) mg/dL AST (14-36) U/L ALT (4-34) U/L Alkaline Phosphatase (38-126) U/L Total Protein (6.3-8.2) g/dL Albumin (3.5-5.0) g/dL Urine Appearance (Clear) Urine Protein (Negative) Urine Blood (Negative) Ur Leukocyte Esterase (Negative) Urine RBC (0-5) /hpf Urine WBC (0-5) /hpf Ur Squamous Epith Cells (0-4) /hpf Calcium Oxalate Crystal (None) /hpf Amorphous Sediment (None) /hpf Urine Bacteria (None) /hpf Hyaline Casts (0-2) /lpf Urine Yeast (Budding) (None) /hpf Assessment and Plan (1) Non-pressure chronic ulcer of other part of right lower leg with fat layer exposed Current Visit: No Status: Acute Code(s): L97.812 - NON-PRS CHRONIC ULCER OTH PRT R LOW LEG W FAT LAYER EXPOSED SNOMED Code(s): 63462225213625238 (2) Non-pressure chronic ulcer of right calf with fat layer exposed Current Visit: No Status: Acute Code(s): L97.212 - NON-PRESSURE CHRONIC ULCER OF RIGHT CALF W FAT LAYER EXPOSED SNOMED Code(s): 07535269002068398
[2023-11-01] MEDS: NOREPINEPHRINE 8 MG in SODIUM CHLORIDE 0.9% 250 ML IV SCH (10:30)
[2023-11-01] MEDS: PHYTONADIONE 10 MG in SODIUM CHLORIDE 0.9% 50 ML IVPB STA (11:31)
[2023-11-01] MEDS: CEFEPIME 2 GM in SODIUM CHLORIDE 0.9% 100 ML IVPB ONE (12:37)
[2023-11-01] MEDS: COLLAGENASE 250 UNIT/GM OINTMENT 30 GM TUBE TOPICAL SCH (14:51)
--- NOTE | 2023-11-01 16:46 | P.NPCON ---
History of Present Illness - Reason for Consult acute renal failure - History of Present Illness Patient is a 78-year-old female with history of hypertension, type 2 diabetes who was admitted from the correction due to mental status changes. Patient was noted to be significantly hypotensive in the ER with systolic blood pressure in the 60s. She is currently maintained on pressors and has had aggressive IV fluid resuscitation. Mentation seems to have improved slightly. Urine output is low at 02 5 mL/h. Serum creatinine at 3.39 with CO2 of 13. Patient is currently maintained on bicarb drip. Serum creatinine ranged between 2.3 to 3 mg/dL during her recent admission about 2 weeks ago. Previous creatinine was 1.0 on 2023. Patient was evaluated by nephrology. She was noted to be in ATN secondary to severe anemia and hemodynamic instability. No evidence of obstruction on ultrasound. Lactic acid is elevated at 2.[address] of the abdomen did not reveal any acute findings. Review of Systems As per HPI. 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 History of Any Multi-Drug Resistant Organisms: None Reported Past Surgical History: Cholecystectomy, Heart Catheterization Additional Past Surgical History / Comment(s): EYE SURGERY DUE TO INJURY, EGD, COLONOSCOPY, BONE MARROW BIOPSY, cataracts, muscle biopsy, Past Anesthesia/Blood Transfusion Reactions: No Reported Reaction Past Psychological History: No Psychological Hx Reported Smoking Status: Never smoker Past Alcohol Use History: Occasional Past Drug Use History: None Reported - Past Family History Sister(s) Family Medical History: Cancer Additional Family Medical History / Comment(s): LEUKEMIA- at age 42 Brother(s) Family Medical History: Cancer Additional Family Medical History / Comment(s): with unknown type CA at age 60s Medications and Allergies Home Medications Medication Instructions Recorded Confirmed Type Albuterol Sulfate [Ventolin HFA] 2 puff INHALATION RT-Q4H PRN 08/03/23 11/01/23 History Acetaminophen Tab [Tylenol] 650 mg PO Q6HR PRN 10/19/23 11/01/23 History Docusate [Colace] 100 mg PO BID 10/19/23 11/01/23 History Metoprolol Tartrate [Lopressor] 50 mg PO Q8H 10/19/23 11/01/23 History Albuterol Nebulized [Ventolin 2.5 mg INHALATION RT-Q4H PRN ml 10/25/23 11/01/23 Rx Nebulized] Potassium Chloride ER [K-Dur 20] 20 meq PO DAILY tab 10/25/23 11/01/23 Rx Sodium Bicarbonate Tab 650 mg PO BID tab 10/25/23 11/01/23 Rx Dakins (1/2 Strength) 1 applic TOPICAL BID 11/01/23 11/01/23 History Dakins (1/2 Strength) 1 applic TOPICAL DAILY PRN 11/01/23 11/01/23 History Darbepoetin Luis Alberto [Aranesp] 40 mcg SQ WE 11/01/23 11/01/23 History Furosemide [Lasix] 40 mg PO DIRECTED 11/01/23 11/01/23 History Lactose-Reduced Food [Ensure Plus] 237 ml PO QID 11/01/23 11/01/23 History Midodrine [ProAmatine] 5 mg PO TID 11/01/23 11/01/23 History Allergies Allergy/AdvReac Type Severity Reaction Status Date / Time omeprazole [From Prilosec] Allergy Unknown Rash/Hives, Verified 10/19/23 09:55 TONGUE SWELLLING omeprazole magnesium Allergy Unknown Rash/Hives, Verified 10/19/23 09:55 [From Prilosec] TONGUE SWELLLING Penicillins Allergy Unknown Rash/Hives/ Verified 10/19/23 09:55 Itching amlodipine Allergy fide pedal Verified 10/19/23 09:55 edema, loss voice carvedilol Allergy shortness Verified 10/19/23 09:55 of breath lisinopril Allergy Unknown Verified 10/19/23 09:55 Physical Exam Vitals: Vital Signs Temp Pulse Resp BP Pulse Ox 11/01/23 16:00 73 31 H 117/50 95 11/01/23 15:30 70 27 H 110/45 96 11/01/23 15:20 66 26 H 110/45 96 11/01/23 15:10 65 37 H 116/45 96 11/01/23 15:00 96.3 F L 66 24 124/56 96 06/14/24 14:50 60 22 124/56 96 11/01/23 14:40 64 24 104/45 93 L 11/01/23 14:30 65 22 97/34 93 L 11/01/23 14:20 61 28 H 97/34 95 11/01/23 14:10 66 22 101/41 94 L 11/01/23 14:00 95.4 F L 65 27 H 96/43 94 L 11/01/23 13:50 61 27 H 96/43 94 L 11/01/23 13:40 67 16 102/37 96 11/01/23 13:30 63 15 96/39 94 L 11/01/23 13:20 66 26 H 96/39 94 L 11/01/23 13:10 64 22 98/46 94 L 11/01/23 13:00 66 26 H 97/47 94 L 11/01/23 12:50 63 25 H 97/47 95 11/01/23 12:40 59 L 55 H 100/38 95 11/01/23 12:30 65 24 112/47 95 11/01/23 12:20 65 15 112/47 95 11/01/23 12:10 66 25 H 112/46 95 11/01/23 12:00 93.9 F L 65 22 116/46 94 L 11/01/23 11:50 61 18 116/46 95 11/01/23 11:40 63 17 105/93 95 11/01/23 11:30 64 20 115/66 95 11/01/23 11:20 61 32 H 115/66 96 11/01/23 11:10 62 21 121/54 95 11/01/23 11:00 93.4 F L 64 16 123/84 95 11/01/23 10:50 62 21 123/84 94 L 11/01/23 10:40 61 20 116/49 96 11/01/23 10:30 64 18 107/96 95 11/01/23 10:20 62 18 126/107 94 L 11/01/23 10:10 65 25 H 112/49 96 11/01/23 10:00 92.8 F L 62 21 113/44 95 11/01/23 09:50 62 22 114/39 95 11/01/23 09:40 61 21 107/52 95 11/01/23 09:30 59 L 19 109/50 95 11/01/23 09:20 53 L 21 78/45 96 11/01/23 09:10 53 L 18 79/44 94 L 11/01/23 09:00 91.0 F L 60 26 H 95/43 95 11/01/23 08:50 53 L 21 57/30 95 11/01/23 08:40 58 L 20 107/48 94 L 11/01/23 08:30 60 20 98/63 95 11/01/23 08:20 59 L 15 98/63 95 11/01/23 08:10 46 L 20 108/60 95 11/01/23 08:00 90.5 F L 56 L 22 111/60 95 11/01/23 07:50 53 L 24 111/60 95 11/01/23 07:40 59 L 20 116/66 95 11/01/23 07:30 57 L 16 110/62 95 11/01/23 07:20 56 L 23 110/62 96 11/01/23 07:10 56 L 15 108/67 95 11/01/23 07:00 90.0 F L 52 L 21 93/60 95 11/01/23 06:50 58 L 12 93/60 96 11/01/23 06:35 91.2 F L 52 L 18 103/71 96 11/01/23 06:00 90.7 F L 54 L 16 101/48 97 11/01/23 05:45 90.3 F L 56 L 21 110/41 97 11/01/23 05:15 49 L 19 96/68 97 11/01/23 05:00 89.1 F L 57 L 14 84/42 97 11/01/23 04:45 89.1 F L 49 L 19 74/39 96 11/01/23 04:30 88.7 F L 58 L 22 96/49 95 11/01/23 04:15 88.5 F L 51 L 17 76/43 95 11/01/23 04:00 88.0 F L 49 L 10 L 76/43 96 11/01/23 03:45 88.0 F L 51 L 30 H 112/70 96 11/01/23 03:30 88.0 F L 49 L 16 110/66 96 11/01/23 03:15 48 L 22 87/77 96 11/01/23 03:00 86.9 F L 49 L 25 H 63/50 95 11/01/23 02:45 52 L 25 H 64/46 95 11/01/23 02:30 84.0 F L 49 L 21 63/34 95 11/01/23 02:15 50 L 35 H 62/33 95 11/01/23 02:00 87.4 F L 48 L 16 74/33 98 11/01/23 01:55 50 L 16 74/33 96 11/01/23 01:45 46 L 24 74/33 95 11/01/23 01:37 87.3 F L 11/01/23 01:15 49 L 22 78/48 99 11/01/23 01:00 47 L 29 H 79/35 99 11/01/23 00:45 50 L 17 84/47 97 11/01/23 00:30 48 L 25 H 91/61 97 11/01/23 00:15 28 L 48 H 100/63 97 11/01/23 00:00 48 L 28 H 90/50 97 10/31/23 23:45 50 L 22 84/47 97 10/31/23 23:43 48 L 19 98 Intake and Output 11/01/23 11/01/23 11/01/23 06:59 14:59 22:59 Intake Total 55.015 2193.922 240 Output Total 5 5 Balance 55.015 2188.922 235 Intake: IV 380 40 Sodium Chloride 0.9% 1, 380 40 000 ml @ 130 mls/hr IV . Q7H42M [facility] Rx#:[id number] Intake, IV Titration 55.015 1813.922 200 Amount Cefepime 2 gm In Sodium 100 Chloride 0.9% 100 ml @ 100 mls/hr IVPB ONCE ONE Rx#:[id number] DAPTOmycin 300 mg In 50 Sodium Chloride 0.9% 50 ml @ 100 mls/hr IVPB Q48H [facility] Rx#:[id number] Dextrose 5% in Water 1, 500 200 000 ml @ 100 mls/hr IV . [id number] [facility] with Sodium Bicarb (1 Meq/ml) 150 ml Rx#:[id number] Norepinephrine 4 mg In 55.015 95.051 Sodium Chloride 0.9% 250 ml @ 0.03 MCG/KG/MIN 10. 369 mls/hr IV .Q24H [facility] Rx#:[id number] Norepinephrine 8 mg In 18.871 Sodium Chloride 0.9% 250 ml @ 0.03 MCG/KG/MIN 5. 266 mls/hr IV .Q24H [facility] Rx#:[id number] Phytonadione 10 mg In 50 Sodium Chloride 0.9% 50 ml @ 100 mls/hr IVPB ONCE STA Rx#:[id number] Sodium Chloride 0.9% 1, 1000 000 ml @ 999 mls/hr IV . Q1H1M ONE Rx#:[id number] Output: Urine 5 5 Post Void Residual 0 Other: Voiding Method Indwelling Catheter Weight 90.718 kg 90.718 kg Patient is currently sleeping but arousable. She does respond to her name. She is not communicating much at this time but mentation is slightly better according to nursing staff. Examination of the heart S1 and S2 Examination of the lungs bilateral breath sounds are heard with decreased breath sounds at the bases Abdomen is soft obese, mild tenderness mid abdomen. Examination of lower extremities shows chronic skin changes, trace edema noted. Large right lower extremity ulceration noted, appears dry. Results - Lab Results Most recent lab results Calcium 8.7 mg/dL (8.4-10.2) 11/01/23 00:04 Magnesium 1.8 mg/dL (1.6-2.3) 11/01/23 00:04 11/01/23 00:04 11/01/23 00:04 Assessment and Plan Assessment: 1. Acute kidney injury, ATN, oliguric secondary to hypotension and possible underlying sepsis. Continue with IV hydration and pressors. No evidence of obstruction on CT of the abdomen. UA has been ordered. 2. Recent episode of acute kidney injury during her last hospitalization about 2 weeks ago with serum creatinine ranging from 2.3 to 3 mg/dL. [place] to be mostly ATN associated with hemodynamic instability and anemia. 3. Hypotension and shock most likely septic. Large right lower extremity ulcer noted. Workup in progress. No obvious pneumonia noted. UA is pending. Maintained on IV fluids and pressors along with empiric antibiotics. 4. Metabolic acidosis, anion gap secondary to acute kidney injury and lactic acidosis. Documented anion gap is low due to hypoalbuminemia. 5. Recent hospitalization for GI bleed. Status post EGD which did not show any active bleeding. Hemoglobin was as low as 6.3. Current hemoglobin at 7.7 g/dL. Plan: Continue IV bicarb. Continue with empiric antibiotics. Repeat labs in a.m. Avoid any nephrotoxic agents. Obtain workup for acute GN based on UA findings. Thank you for the consultation. We will continue to follow the patient with you during her hospitalization.
[2023-11-01 17:54] LABS: African American GFR (CKD) 15 (>60 ml/min/1.73 sqM); Anion Gap 8 mmol/L; Blood Urea Nitrogen 92 mg/dL (7-17); Calcium 8.2 mg/dL (8.4-10.2); Carbon Dioxide 14 mmol/L (22-30); Chloride 115 mmol/L (98-107); Glucose 83 mg/dL (74-99); Non-African American GFR(CKD) 13 (>60 ml/min/1.73 sqM); Potassium 4.3 mmol/L (3.5-5.1); Sodium 137 mmol/L (137-145)
--- NOTE | 2023-11-01 20:26 | XR ---
EXAMINATION TYPE: XR chest 1V portable DATE OF EXAM: 11/01/2023 COMPARISON: 11/01/2023 HISTORY: Aspirated TECHNIQUE: Single frontal view of the chest is obtained. FINDINGS: A diffuse interstitial pattern with bilateral consolidation and pleural effusion stable. H eart mildly prominent. Atherosclerotic change aorta. No pneumothorax. Degenerative change of the spin e. IMPRESSION: Diffuse pleural-parenchymal changes are stable correlate for CHF. Underlying pneumonia n ot excluded.
[2023-11-01] MEDS: CEFEPIME 1 GM in SODIUM CHLORIDE 0.9% 50 ML IVPB SCH (20:46)
--- NOTE | 2023-11-01 22:18 | P.CONS ---
History of Present Illness - Reason for Consult Consult date: 11/01/23 Antibiotic management Requesting physician: Ford Werner - Chief Complaint Mental status changes and hypotension x 1 day - History of Present Illness This is a telehealth visit Patient is a 78-year-old female with a past medical history significant for heart failure hypertension osteoarthritis lower extremity cellulitis recently admitted to this facility and treated for possible UTI patient was stabilized and discharged to the local [facility] patient has been brought back to the ER after midnight for evaluation of mental status changes and hypotension apparently the symptoms started the day of presentation to the hospital with the patient noticed to have low blood pressure and the patient was not responding appropriately to the patient on arrival to the ER was hypothermic with a temperature of 87.3 F patient was bradycardic initially with heart rate down to 28 at 1 point subsequent heart rate has improved patient was also hypotensive requiring pressor support currently on a 2 L nasal cannula oxygen patient did have white count of 8.4 BUN and creatinine has been elevated lactic acid was 2.6 liver isms mildly elevated urine has been positive patient did have a chest x-ray mild vascular congestion abdominal pelvis CT features of anasarca heterogenicity throughout correlate with ultrasound small amount of ascites as well as basal pleural effusion and compressive atelectasis patient also have a x-ray of the foot no acute fracture or dislocation this was the right foot patient did have a wound to the right lower extremity for the patient has been evaluated by wound care and has added Santyl did have diffuse swelling to the leg but no purulent drainage reported by the nursing staff most information has been obtained from review the chart after nursing staff and the patient unable to provide any history patient did have penicillin allergy infectious was consulted for further management of antibiotic therapy she did receive a dose of Rocephin in the ER and has been started on daptomycin and cefepime Review of Systems Positive points has been mentioned in HPI complete review could not be obtained because of his underlying mental status Past Medical History Past Medical History: Asthma, Heart Failure, Eye Disorder, Hypertension, Musculoskeletal Disorder, Osteoarthritis (OA) Additional Past Medical History / Comment(s): ENVIRONMENTAL ALLERGIES, BACK STENOSIS, 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 History of Any Multi-Drug Resistant Organisms: None Reported Past Surgical History: Cholecystectomy, Heart Catheterization Additional Past Surgical History / Comment(s): EYE SURGERY DUE TO INJURY, EGD, COLONOSCOPY, BONE MARROW BIOPSY, cataracts, muscle biopsy, Past Anesthesia/Blood Transfusion Reactions: No Reported Reaction Past Psychological History: No Psychological Hx Reported Smoking Status: Never smoker Past Alcohol Use History: Occasional Past Drug Use History: None Reported - Past Family History Sister(s) Family Medical History: Cancer Additional Family Medical History / Comment(s): LEUKEMIA- at age 42 Brother(s) Family Medical History: Cancer Additional Family Medical History / Comment(s): with unknown type CA at age 60s Medications and Allergies Home Medications Medication Instructions Recorded Confirmed Type Albuterol Sulfate [Ventolin HFA] 2 puff INHALATION RT-Q4H PRN 08/03/23 11/05/23 History Acetaminophen Tab [Tylenol] 650 mg PO Q6HR PRN 10/19/23 11/05/23 History Docusate [Colace] 100 mg PO BID 10/19/23 11/05/23 History Metoprolol Tartrate [Lopressor] 50 mg PO Q8H 10/19/23 11/05/23 History Albuterol Nebulized [Ventolin 2.5 mg INHALATION RT-Q4H PRN ml 10/25/23 11/05/23 Rx Nebulized] Potassium Chloride ER [K-Dur 20] 20 meq PO DAILY tab 10/25/23 11/05/23 Rx Sodium Bicarbonate Tab 650 mg PO BID tab 10/25/23 11/05/23 Rx Dakins (1/2 Strength) 1 applic TOPICAL BID 11/01/23 11/05/23 History Dakins (1/2 Strength) 1 applic TOPICAL DAILY PRN 11/01/23 11/05/23 History Darbepoetin Luis Alberto [Aranesp] 40 mcg SQ WE 11/01/23 11/05/23 History Furosemide [Lasix] 40 mg PO DIRECTED 11/01/23 11/05/23 History Lactose-Reduced Food [Ensure Plus] 237 ml PO QID 11/01/23 11/05/23 History Midodrine [ProAmatine] 5 mg PO TID 11/01/23 11/05/23 History Allergies Allergy/AdvReac Type Severity Reaction Status Date / Time omeprazole [From Prilosec] Allergy Unknown Rash/Hives, Verified 10/19/23 09:55 TONGUE SWELLLING omeprazole magnesium Allergy Unknown Rash/Hives, Verified 10/19/23 09:55 [From [facility]] TONGUE SWELLLING Penicillins Allergy Unknown Rash/Hives/ Verified 10/19/23 09:55 Itching amlodipine Allergy fide pedal Verified 10/19/23 09:55 edema, loss voice carvedilol Allergy shortness Verified 10/19/23 09:55 of breath lisinopril Allergy Unknown Verified 10/19/23 09:55 Physical Exam Vitals: Vital Signs Temp Pulse Resp BP Pulse Ox 11/01/23 21:00 72 29 H 117/43 98 11/01/23 20:45 70 16 118/41 98 11/01/23 20:30 73 30 H 108/53 97 11/01/23 20:15 75 34 H 120/59 94 L 11/01/23 20:00 97.2 F L 136/55 94 L 11/01/23 19:45 75 21 111/56 95 11/01/23 19:30 70 35 H 108/55 95 11/01/23 19:15 71 30 H 126/50 96 11/01/23 19:00 71 24 107/51 96 11/01/23 18:30 68 22 123/48 96 11/01/23 18:00 96.8 F L 69 24 100/40 96 11/01/23 17:30 71 26 H 118/39 96 11/01/23 17:00 96.8 F L 72 22 117/47 95 11/01/23 16:30 70 24 111/44 95 11/01/23 16:00 73 31 H 117/50 95 11/01/23 15:30 70 27 H 110/45 96 11/01/23 15:20 66 26 H 110/45 96 11/01/23 15:10 65 37 H 116/45 96 11/01/23 15:00 96.3 F L 66 24 124/56 96 11/01/23 14:50 60 22 124/56 96 11/01/23 14:40 64 24 104/45 93 L 11/01/23 14:30 65 22 97/34 93 L 11/01/23 14:20 61 28 H 97/34 95 11/01/23 14:10 66 22 101/41 94 L 11/01/23 14:00 95.4 F L 65 27 H 96/43 94 L 11/01/23 13:50 61 27 H 96/43 94 L 11/01/23 13:40 67 16 102/37 96 11/01/23 13:30 63 15 96/39 94 L 11/01/23 13:20 66 26 H 96/39 94 L 11/01/23 13:10 64 22 98/46 94 L 11/01/23 13:00 66 26 H 97/47 94 L 11/01/23 12:50 63 25 H 97/47 95 11/01/23 12:40 59 L 55 H 100/38 95 11/01/23 12:30 65 24 112/47 95 11/01/23 12:20 65 15 112/47 95 11/01/23 12:10 66 25 H 112/46 95 11/01/23 12:00 93.9 F L 65 22 116/46 94 L 11/01/23 11:50 61 18 116/46 95 11/01/23 11:40 63 17 105/93 95 11/01/23 11:30 64 20 115/66 95 11/01/23 11:20 61 32 H 115/66 96 11/01/23 11:10 62 21 121/54 95 11/01/23 11:00 93.4 F L 64 16 123/84 95 11/01/23 10:50 62 21 123/84 94 L 11/01/23 10:40 61 20 116/49 96 11/01/23 10:30 64 18 107/96 95 11/01/23 10:20 62 18 126/107 94 L 11/01/23 10:10 65 25 H 112/49 96 11/01/23 10:00 92.8 F L 62 21 113/44 95 11/01/23 09:50 62 22 114/39 95 11/01/23 09:40 61 21 107/52 95 11/01/23 09:30 59 L 19 109/50 95 11/01/23 09:20 53 L 21 78/45 96 11/01/23 09:10 53 L 18 79/44 94 L 11/01/23 09:00 91.0 F L 60 26 H 95/43 95 11/01/23 08:50 53 L 21 57/30 95 11/01/23 08:40 58 L 20 107/48 94 L 11/01/23 08:30 60 20 98/63 95 11/01/23 08:20 59 L 15 98/63 95 11/01/23 08:10 46 L 20 108/60 95 11/01/23 08:00 90.5 F L 56 L 22 111/60 95 11/01/23 07:50 53 L 24 111/60 95 11/01/23 07:40 59 L 20 116/66 95 11/01/23 07:30 57 L 16 110/62 95 11/01/23 07:20 56 L 23 110/62 96 11/01/23 07:10 56 L 15 108/67 95 11/01/23 07:00 90.0 F L 52 L 21 93/60 95 11/01/23 06:50 58 L 12 93/60 96 11/01/23 06:35 91.2 F L 52 L 18 103/71 96 11/01/23 06:00 90.7 F L 54 L 16 101/48 97 11/01/23 05:45 90.3 F L 56 L 21 110/41 97 11/01/23 05:15 49 L 19 96/68 97 11/01/23 05:00 89.1 F L 57 L 14 84/42 97 11/01/23 04:45 89.1 F L 49 L 19 74/39 96 11/01/23 04:30 88.7 F L 58 L 22 96/49 95 11/01/23 04:15 88.5 F L 51 L 17 76/43 95 11/01/23 04:00 88.0 F L 49 L 10 L 76/43 96 11/01/23 03:45 88.0 F L 51 L 30 H 112/70 96 11/01/23 03:30 88.0 F L 49 L 16 110/66 96 11/01/23 03:15 48 L 22 87/77 96 11/01/23 03:00 86.9 F L 49 L 25 H 63/50 95 11/01/23 02:45 52 L 25 H 64/46 95 11/01/23 02:30 84.0 F L 49 L 21 63/34 95 11/01/23 02:15 50 L 35 H 62/33 95 11/01/23 02:00 87.4 F L 48 L 16 74/33 98 11/01/23 01:55 50 L 16 74/33 96 11/01/23 01:45 46 L 24 74/33 95 11/01/23 01:37 87.3 F L 11/01/23 01:15 49 L 22 78/48 99 11/01/23 01:00 47 L 29 H 79/35 99 11/01/23 00:45 50 L 17 84/47 97 11/01/23 00:30 48 L 25 H 91/61 97 11/01/23 00:15 28 L 48 H 100/63 97 11/01/23 00:00 48 L 28 H 90/50 97 10/31/23 23:45 50 L 22 84/47 97 10/31/23 23:43 48 L 19 98 Intake and Output 11/01/23 11/01/23 11/01/23 06:59 14:59 22:59 Intake Total 55.015 2193.922 1019.025 Output Total 5 5 Balance 55.015 2188.922 1014.025 Intake: IV 380 390 .9 @ KVO 40 Cefepime 1 gm In Sodium 50 Chloride 0.9% 50 ml @ 12. 5 mls/hr IVPB Q12HR MEÑO Rx#:[id number] Dextrose 5% in Water 1, 200 000 ml @ 100 mls/hr IV . [id number] MEÑO with Sodium Bicarb (1 Meq/ml) 150 ml Rx#:[id number] Sodium Chloride 0.9% 1, 380 100 000 ml @ 130 mls/hr IV . Q7H42M MEÑO Rx#:[id number] Intake, IV Titration 55.015 1813.922 629.025 Amount Cefepime 2 gm In Sodium 100 Chloride 0.9% 100 ml @ 100 mls/hr IVPB ONCE ONE Rx#:[id number] DAPTOmycin 300 mg In 50 Sodium Chloride 0.9% 50 ml @ 100 mls/hr IVPB Q48H MEÑO Rx#:[id number] Dextrose 5% in Water 1, 500 500 000 ml @ 100 mls/hr IV . [id number] MEÑO with Sodium Bicarb (1 Meq/ml) 150 ml Rx#:[id number] Norepinephrine 4 mg In 55.015 95.051 Sodium Chloride 0.9% 250 ml @ 0.03 MCG/KG/MIN 10. 369 mls/hr IV .Q24H MEÑO Rx#:[id number] Norepinephrine 8 mg In 18.871 129.025 Sodium Chloride 0.9% 250 ml @ 0.03 MCG/KG/MIN 5. 266 mls/hr IV .Q24H MEÑO Rx#:[id number] Phytonadione 10 mg In 50 Sodium Chloride 0.9% 50 ml @ 100 mls/hr IVPB ONCE STA Rx#:[id number] Sodium Chloride 0.9% 1, 1000 000 ml @ 999 mls/hr IV . Q1H1M ONE Rx#:[id number] Output: Urine 5 5 Post Void Residual 0 Other: Voiding Method Indwelling Catheter Indwelling Catheter # Emeses 1 Weight 90.718 kg 90.718 kg Elderly female lying in bed in no distress Respiratory system unlabored breathing decreased breath sound the base Heart S1-S2 regular Abdominal soft,no tenderness Extremities right lateral leg did have a wound with some skin necrosis surrounding swelling no foul-smelling drainage reported Skin no rashes, no masses palpable Patient is lethargic orientation could not be determined Exam compleetd with help of [facility] Results CBC & Chem 7: 11/05/23 05:32 11/05/23 05:32 Labs: Abnormal Lab Results - Last 24 Hours (Table) 11/01/23 11/01/23 11/01/23 Range/Units 00:04 00:04 00:04 RBC 2.53 L (3.80-5.40) m/uL Hgb 7.7 L (11.4-16.0) gm/dL Hct 24.4 L (34.0-46.0) % RDW 22.4 H (11.5-15.5) % Plt Count 50 L (150-450) k/uL Lymphocytes # (Manual) 0.50 L (1.0-4.8) k/uL Eosinophils # (Manual) 1.34 H (0-0.7) k/uL PT 21.1 H (10.0-12.5) sec INR 2.1 H (<1.2) APTT 57.2 H (22.0-30.0) sec Sodium 136 L (137-145) mmol/L Chloride 112 H (98-107) mmol/L Carbon Dioxide 13 L (22-30) mmol/L BUN 100 H (7-17) mg/dL Creatinine 3.39 H (0.52-1.04) mg/dL Glucose 133 H (74-99) mg/dL POC Glucose (mg/dL) (70-110) mg/dL Plasma Lactic Acid Shane (0.7-2.0) mmol/L Calcium (8.4-10.2) mg/dL Total Bilirubin 3.0 H (0.2-1.3) mg/dL AST 66 H (14-36) U/L ALT 36 H (4-34) U/L Alkaline Phosphatase 149 H (38-126) U/L Total Protein 4.9 L (6.3-8.2) g/dL Albumin 2.0 L (3.5-5.0) g/dL Procalcitonin (0.02-0.09) ng/mL Urine Appearance (Clear) Urine Protein (Negative) Urine Blood (Negative) Ur Leukocyte Esterase (Negative) Urine RBC (0-5) /hpf Urine WBC (0-5) /hpf Ur Squamous Epith Cells (0-4) /hpf Calcium Oxalate Crystal (None) /hpf Amorphous Sediment (None) /hpf Urine Bacteria (None) /hpf Hyaline Casts (0-2) /lpf Urine Yeast (Budding) (None) /hpf 11/01/23 11/01/23 11/01/23 Range/Units 00:04 00:38 00:45 RBC (3.80-5.40) m/uL Hgb (11.4-16.0) gm/dL Hct (34.0-46.0) % RDW (11.5-15.5) % Plt Count (150-450) k/uL Lymphocytes # (Manual) (1.0-4.8) k/uL Eosinophils # (Manual) (0-0.7) k/uL PT (10.0-12.5) sec INR (<1.2) APTT (22.0-30.0) sec Sodium (137-145) mmol/L Chloride (98-107) mmol/L Carbon Dioxide (22-30) mmol/L BUN (7-17) mg/dL Creatinine (0.52-1.04) mg/dL Glucose (74-99) mg/dL POC Glucose (mg/dL) 171 H (70-110) mg/dL Plasma Lactic Acid Shane (0.7-2.0) mmol/L Calcium (8.4-10.2) mg/dL Total Bilirubin (0.2-1.3) mg/dL AST (14-36) U/L ALT (4-34) U/L Alkaline Phosphatase (38-126) U/L Total Protein (6.3-8.2) g/dL Albumin (3.5-5.0) g/dL Procalcitonin 0.16 H (0.02-0.09) ng/mL Urine Appearance Turbid H (Clear) Urine Protein 2+ H (Negative) Urine Blood Moderate H (Negative) Ur Leukocyte Esterase Large H (Negative) Urine RBC 11 H (0-5) /hpf Urine WBC 78 H (0-5) /hpf Ur Squamous Epith Cells 16 H (0-4) /hpf Calcium Oxalate Crystal Occasional H (None) /hpf Amorphous Sediment Rare H (None) /hpf Urine Bacteria Many H (None) /hpf Hyaline Casts 8 H (0-2) /lpf Urine Yeast (Budding) Many H (None) /hpf 11/01/23 11/01/23 11/01/23 Range/Units 01:45 06:31 09:20 RBC (3.80-5.40) m/uL Hgb (11.4-16.0) gm/dL Hct (34.0-46.0) % RDW (11.5-15.5) % Plt Count (150-450) k/uL Lymphocytes # (Manual) (1.0-4.8) k/uL Eosinophils # (Manual) (0-0.7) k/uL PT (10.0-12.5) sec INR (<1.2) APTT (22.0-30.0) sec Sodium (137-145) mmol/L Chloride (98-107) mmol/L Carbon Dioxide (22-30) mmol/L BUN (7-17) mg/dL Creatinine (0.52-1.04) mg/dL Glucose (74-99) mg/dL POC Glucose (mg/dL) (70-110) mg/dL Plasma Lactic Acid Shane 2.6 H* 2.7 H* 2.6 H* (0.7-2.0) mmol/L Calcium (8.4-10.2) mg/dL Total Bilirubin (0.2-1.3) mg/dL AST (14-36) U/L ALT (4-34) U/L Alkaline Phosphatase (38-126) U/L Total Protein (6.3-8.2) g/dL Albumin (3.5-5.0) g/dL Procalcitonin (0.02-0.09) ng/mL Urine Appearance (Clear) Urine Protein (Negative) Urine Blood (Negative) Ur Leukocyte Esterase (Negative) Urine RBC (0-5) /hpf Urine WBC (0-5) /hpf Ur Squamous Epith Cells (0-4) /hpf Calcium Oxalate Crystal (None) /hpf Amorphous Sediment (None) /hpf Urine Bacteria (None) /hpf Hyaline Casts (0-2) /lpf Urine Yeast (Budding) (None) /hpf 11/01/23 Range/Units 16:30 RBC (3.80-5.40) m/uL Hgb (11.4-16.0) gm/dL Hct (34.0-46.0) % RDW (11.5-15.5) % Plt Count (150-450) k/uL Lymphocytes # (Manual) (1.0-4.8) k/uL Eosinophils # (Manual) (0-0.7) k/uL PT (10.0-12.5) sec INR (<1.2) APTT (22.0-30.0) sec Sodium (137-145) mmol/L Chloride 115 H (98-107) mmol/L Carbon Dioxide 14 L (22-30) mmol/L BUN 92 H (7-17) mg/dL Creatinine 3.29 H (0.52-1.04) mg/dL Glucose (74-99) mg/dL POC Glucose (mg/dL) (70-110) mg/dL Plasma Lactic Acid Shane (0.7-2.0) mmol/L Calcium 8.2 L (8.4-10.2) mg/dL Total Bilirubin (0.2-1.3) mg/dL AST (14-36) U/L ALT (4-34) U/L Alkaline Phosphatase (38-126) U/L Total Protein (6.3-8.2) g/dL Albumin (3.5-5.0) g/dL Procalcitonin (0.02-0.09) ng/mL Urine Appearance (Clear) Urine Protein (Negative) Urine Blood (Negative) Ur Leukocyte Esterase (Negative) Urine RBC (0-5) /hpf Urine WBC (0-5) /hpf Ur Squamous Epith Cells (0-4) /hpf Calcium Oxalate Crystal (None) /hpf Amorphous Sediment (None) /hpf Urine Bacteria (None) /hpf Hyaline Casts (0-2) /lpf Urine Yeast (Budding) (None) /hpf Assessment and Plan (1) Sepsis Status: Acute Code(s): A41.9 - SEPSIS, UNSPECIFIED ORGANISM SNOMED Code(s): 11875508 Plan: This was a telehealth visit 1patient was in the hospital with sepsis in this patient who did have hypothermia hypotension requiring pressor support with a source of sepsis could be UTI versus right lower extremity wound and cellulitis and the patient chest x-ray did not show any evidence of pneumonia CT abdominal pelvis did show some ascites but did not mention any colitis or abscess 2-patient with a penicillin allergy that will limit the number of antibiotics safe to use 3-renal insufficiency high risk of nephrotoxicity 4-blood culture has been obtained results will follow check inflammatory markers 5-will empirically cover with cefepime and daptomycin pending workup completion and culture finalization We will follow on clinical condition and cultures to further adjust medication if needed Thank you for this consultation we will follow the patient along with you Dictation was produced using [employer] dictation software. please excuse any gr ammatical, word or spelling errors. Time with Patient: Greater than 30
--- NOTE | 2023-11-01 22:48 | P.HPIM ---
History of Present Illness H&P Date: 11/01/23 Chief Complaint: Altered mentation Patient is a 78-year-old female with a past medical history of hypertension, atrial fibrillation not on anticoagulation due to recent GI bleed, hypertension, osteoarthritis, HFpEF, previous history of gastric perforation, inclusion body myositis and chronic right lower extremity wound. Patient also has right ear hearing loss. Patient was recently discharged from the hospital on 10/25/2023 to [facility]. She was admitted to hospital due to acute upper GI bleed with dark stools and is status post EGD showed no active bleeding. Patient was sent to ER due to altered mental status and also hypotensive at the facility. Patient's noticed earlier in the day that she did not seem like her usual self. On admission patient was hypotensive with blood pressure 84/47 pulse is 58 respiration 22 and pulse ox 97% on room air. Patient is able to open her but could not communicate. Eyes and tracks but unable to communi mio. On admission chest x-ray showed cardiomegaly with mild vascular congestion. CT head showed no acute hemorrhage, hydrocephalus or mass effect. EKG showed sinus bradycardia with marked sinus arrhythmia CT of the abdominal pelvis showed features of anasarca. Heterogenicity throughout. Correlate with ultrasound. Small amount of ascites as well as bilateral pleural effusions and compressive atelectasis. Foot x-ray showed there is no acute fracture or dislocation. Patient was hypotensive despite fluid boluses. Patient was also hypothermic and bradycardic. She was transferred to MICU for pressor support. Laboratory data showed WBC 8.4 hemoglobin 7.7 and platelets 50 baseline hemoglobin level around 8.0 INR 2.1 Sodium 136 potassium 4.4 chloride 112, BUN 100 and creatinine 3.39, lactic acid 2.6 Magnesium 1.8 total bili 3.0 AST 66 alk phos 149 troponin 0.019 and proBNP 5970 and Pro-Alvin 0.16 Urinalysis showed turbid with 2+ protein and large leukocyte esterase with elevated RBCs and WBCs. 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 History of Any Multi-Drug Resistant Organisms: None Reported Past Surgical History: Cholecystectomy, Heart Catheterization Additional Past Surgical History / Comment(s): EYE SURGERY DUE TO INJURY, EGD, COLONOSCOPY, BONE MARROW BIOPSY, cataracts, muscle biopsy, Past Anesthesia/Blood Transfusion Reactions: No Reported Reaction Past Psychological History: No Psychological Hx Reported Smoking Status: Never smoker Past Alcohol Use History: Occasional Past Drug Use History: None Reported - Past Family History Sister(s) Family Medical History: Cancer Additional Family Medical History / Comment(s): LEUKEMIA- at age 42 Brother(s) Family Medical History: Cancer Additional Family Medical History / Comment(s): with unknown type CA at age 60s Medications and Allergies Home Medications Medication Instructions Recorded Confirmed Type Albuterol Sulfate [Ventolin HFA] 2 puff INHALATION RT-Q4H PRN 08/03/23 11/01/23 History Acetaminophen Tab [Tylenol] 650 mg PO Q6HR PRN 10/19/23 11/01/23 History Docusate [Colace] 100 mg PO BID 10/19/23 11/01/23 History Metoprolol Tartrate [Lopressor] 50 mg PO Q8H 10/19/23 11/01/23 History Albuterol Nebulized [Ventolin 2.5 mg INHALATION RT-Q4H PRN ml 10/25/23 11/01/23 Rx Nebulized] Potassium Chloride ER [K-Dur 20] 20 meq PO DAILY tab 10/25/23 11/01/23 Rx Sodium Bicarbonate Tab 650 mg PO BID tab 10/25/23 11/01/23 Rx Dakins (1/2 Strength) 1 applic TOPICAL BID 11/01/23 11/01/23 History Dakins (1/2 Strength) 1 applic TOPICAL DAILY PRN 11/01/23 11/01/23 History Darbepoetin Luis Alberto [Aranesp] 40 mcg SQ WE 11/01/23 11/01/23 History Furosemide [Lasix] 40 mg PO DIRECTED 11/01/23 11/01/23 History Lactose-Reduced Food [Ensure Plus] 237 ml PO QID 11/01/23 11/01/23 History Midodrine [ProAmatine] 5 mg PO TID 11/01/23 11/01/23 History Allergies Allergy/AdvReac Type Severity Reaction Status Date / Time [facility] Unknown Rash/Hives, Verified 10/19/23 09:55 TONGUE SWELLLING omeprazole magnesium Allergy Unknown Rash/Hives, Verified 10/19/23 09:55 [From [facility]] TONGUE SWELLLING Penicillins Allergy Unknown Rash/Hives/ Verified 10/19/23 09:55 Itching amlodipine Allergy fide pedal Verified 10/19/23 09:55 edema, loss voice carvedilol Allergy shortness Verified 10/19/23 09:55 of breath lisinopril Allergy Unknown Verified 10/19/23 09:55 Physical Exam Vitals: Vital Signs Temp Pulse Resp BP Pulse Ox 11/01/23 07:30 57 L 16 110/62 95 11/01/23 07:20 56 L 23 110/62 96 11/01/23 07:10 56 L 15 108/67 95 11/01/23 07:00 90.0 F L 52 L 21 93/60 95 11/01/23 06:50 58 L 12 93/60 96 11/01/23 06:35 91.2 F L 52 L 18 103/71 96 11/01/23 06:00 90.7 F L 54 L 16 101/48 97 11/01/23 05:45 90.3 F L 56 L 21 110/41 97 11/01/23 05:15 49 L 19 96/68 97 11/01/23 05:00 89.1 F L 57 L 14 84/42 97 11/01/23 04:45 89.1 F L 49 L 19 74/39 96 11/01/23 04:30 88.7 F L 58 L 22 96/49 95 11/01/23 04:15 88.5 F L 51 L 17 76/43 95 11/01/23 04:00 88.0 F L 49 L 10 L 76/43 96 11/01/23 03:45 88.0 F L 51 L 30 H 112/70 96 11/01/23 03:30 88.0 F L 49 L 16 110/66 96 11/01/23 03:15 48 L 22 87/77 96 11/01/23 03:00 86.9 F L 49 L 25 H 63/50 95 11/01/23 02:45 52 L 25 H 64/46 95 11/01/23 02:30 84.0 F L 49 L 21 63/34 95 11/01/23 02:15 50 L 35 H 62/33 95 11/01/23 02:00 87.4 F L 48 L 16 74/33 98 11/01/23 01:55 50 L 16 74/33 96 11/01/23 01:45 46 L 24 74/33 95 11/01/23 01:37 87.3 F L 11/01/23 01:15 49 L 22 78/48 99 11/01/23 01:00 47 L 29 H 79/35 99 11/01/23 00:45 50 L 17 84/47 97 11/01/23 00:30 48 L 25 H 91/61 97 11/01/23 00:15 28 L 48 H 100/63 97 11/01/23 00:00 48 L 28 H 90/50 97 10/31/23 23:45 50 L 22 84/47 97 10/31/23 23:43 48 L 19 98 Intake and Output 10/31/23 11/01/23 11/01/23 22:59 06:59 14:59 Intake Total 55.015 130 Output Total 5 Balance 55.015 125 Intake: IV 130 Sodium Chloride 0.9% 1, 130 000 ml @ 130 mls/hr IV . Q7H42M MEÑO Rx#:[id number] Intake, IV Titration 55.015 Amount Norepinephrine 4 mg In 55.015 Sodium Chloride 0.9% 250 ml @ 0.03 MCG/KG/MIN 10. 369 mls/hr IV .Q24H MEÑO Rx#:[id number] Output: Urine 5 Other: Weight 90.718 kg PHYSICAL EXAMINATION: Patient is lying in the bed. Patient is able to open her eyes and track but unable to communicate. HEENT: Normocephalic. Neck is supple. Pupils reactive. Nostrils clear. Oral cavity is moist. Neck reveals no JVD, carotid bruits, or thyromegaly. CHEST EXAMINATION: Trachea is central. Symmetrical expansion. Bibasilar diminished sounds otherwise lung ferguson clear to auscultation and percussion. CARDIAC: Normal S1, S2 with no gallops. No murmurs ABDOMEN: Soft. Bowel sounds normal. No organomegaly. No abdominal bruits. Extremities: Bilateral 2+ edema with right lower extremity wound on the lateral side. No purulent discharge noted.. No clubbing or cyanosis Neurologically patient is awake alert and oriented x 0. Able to move her extremities while in bed. No gross focal deficits noted Skin: No rash. Skin lesions as above. Psychiatric: Could not be assessed. Musculoskeletal: No joint swelling or deformity. Results CBC & Chem 7: 11/01/23 00:04 11/01/23 16:30 Labs: Abnormal Lab Results - Last 24 Hours (Table) 11/01/23 11/01/23 11/01/23 Range/Units 00:04 00:04 00:04 RBC 2.53 L (3.80-5.40) m/uL Hgb 7.7 L (11.4-16.0) gm/dL Hct 24.4 L (34.0-46.0) % RDW 22.4 H (11.5-15.5) % Plt Count 50 L (150-450) k/uL Lymphocytes # (Manual) 0.50 L (1.0-4.8) k/uL Eosinophils # (Manual) 1.34 H (0-0.7) k/uL PT 21.1 H (10.0-12.5) sec INR 2.1 H (<1.2) APTT 57.2 H (22.0-30.0) sec Sodium 136 L (137-145) mmol/L Chloride 112 H (98-107) mmol/L Carbon Dioxide 13 L (22-30) mmol/L BUN 100 H (7-17) mg/dL Creatinine 3.39 H (0.52-1.04) mg/dL Glucose 133 H (74-99) mg/dL POC Glucose (mg/dL) (70-110) mg/dL Plasma Lactic Acid Shane (0.7-2.0) mmol/L Total Bilirubin 3.0 H (0.2-1.3) mg/dL AST 66 H (14-36) U/L ALT 36 H (4-34) U/L Alkaline Phosphatase 149 H (38-126) U/L Total Protein 4.9 L (6.3-8.2) g/dL Albumin 2.0 L (3.5-5.0) g/dL Urine Appearance (Clear) Urine Protein (Negative) Urine Blood (Negative) Ur Leukocyte Esterase (Negative) Urine RBC (0-5) /hpf Urine WBC (0-5) /hpf Ur Squamous Epith Cells (0-4) /hpf Calcium Oxalate Crystal (None) /hpf Amorphous Sediment (None) /hpf Urine Bacteria (None) /hpf Hyaline Casts (0-2) /lpf Urine Yeast (Budding) (None) /hpf 11/01/23 11/01/23 11/01/23 Range/Units 00:38 00:45 01:45 RBC (3.80-5.40) m/uL Hgb (11.4-16.0) gm/dL Hct (34.0-46.0) % RDW (11.5-15.5) % Plt Count (150-450) k/uL Lymphocytes # (Manual) (1.0-4.8) k/uL Eosinophils # (Manual) (0-0.7) k/uL PT (10.0-12.5) sec INR (<1.2) APTT (22.0-30.0) sec Sodium (137-145) mmol/L Chloride (98-107) mmol/L Carbon Dioxide (22-30) mmol/L BUN (7-17) mg/dL Creatinine (0.52-1.04) mg/dL Glucose (74-99) mg/dL POC Glucose (mg/dL) 171 H (70-110) mg/dL Plasma Lactic Acid Shane 2.6 H* (0.7-2.0) mmol/L Total Bilirubin (0.2-1.3) mg/dL AST (14-36) U/L ALT (4-34) U/L Alkaline Phosphatase (38-126) U/L Total Protein (6.3-8.2) g/dL Albumin (3.5-5.0) g/dL Urine Appearance Turbid H (Clear) Urine Protein 2+ H (Negative) Urine Blood Moderate H (Negative) Ur Leukocyte Esterase Large H (Negative) Urine RBC 11 H (0-5) /hpf Urine WBC 78 H (0-5) /hpf Ur Squamous Epith Cells 16 H (0-4) /hpf Calcium Oxalate Crystal Occasional H (None) /hpf Amorphous Sediment Rare H (None) /hpf Urine Bacteria Many H (None) /hpf Hyaline Casts 8 H (0-2) /lpf Urine Yeast (Budding) Many H (None) /hpf 11/01/23 11/01/23 Range/Units 06:31 09:20 RBC (3.80-5.40) m/uL Hgb (11.4-16.0) gm/dL Hct (34.0-46.0) % RDW (11.5-15.5) % Plt Count (150-450) k/uL Lymphocytes # (Manual) (1.0-4.8) k/uL Eosinophils # (Manual) (0-0.7) k/uL PT (10.0-12.5) sec INR (<1.2) APTT (22.0-30.0) sec Sodium (137-145) mmol/L Chloride (98-107) mmol/L Carbon Dioxide (22-30) mmol/L BUN (7-17) mg/dL Creatinine (0.52-1.04) mg/dL Glucose (74-99) mg/dL POC Glucose (mg/dL) (70-110) mg/dL Plasma Lactic Acid Shane 2.7 H* 2.6 H* (0.7-2.0) mmol/L Total Bilirubin (0.2-1.3) mg/dL AST (14-36) U/L ALT (4-34) U/L Alkaline Phosphatase (38-126) U/L Total Protein (6.3-8.2) g/dL Albumin (3.5-5.0) g/dL Urine Appearance (Clear) Urine Protein (Negative) Urine Blood (Negative) Ur Leukocyte Esterase (Negative) Urine RBC (0-5) /hpf Urine WBC (0-5) /hpf Ur Squamous Epith Cells (0-4) /hpf Calcium Oxalate Crystal (None) /hpf Amorphous Sediment (None) /hpf Urine Bacteria (None) /hpf Hyaline Casts (0-2) /lpf Urine Yeast (Budding) (None) /hpf Thrombosis Risk Factor Assmnt - DVT/VTE Prophylaxis DVT/VTE Prophylaxis: Mechanical Prophylaxis ordered Assessment and Plan Assessment: Acute hypotension and possible sepsis/septic shock due to UTI Altered mental status with metabolic encephalopathy and infection Acute on chronic renal disease due to ATN secondary to hypotension. Creatinine 3.39 on admission baseline creatinine level around 3. Recent history of GI bleed status post EGD showed no active bleeding. Patient was discharged to [facility] on 10/25/2023 baseline hemoglobin around 8.0 CKD stage IIIb Chronic right lower extremity wound with history of debridement Chronic CHF with preserved ejection fraction Paroxysmal atrial fibrillation not on anticoagulation due to recent GI bleed History of gastric perforation with diagnostic laparoscopic repair on 05/26/2023 History of inclusion body myositis Obesity BMI 32.3 Bronchial asthma not in exacerbation Medical debility and bedridden shelter Chronic thrombocytopenia with platelet count 50 K Coagulopathy with INR 2.1 on admission Transaminitis Right ear hearing loss DVT prophylaxis patient is anticoagulated Plan: Patient is in the MICU. Patient will be continued on IV hydration currently bicarb drip. Continue broad-spectrum antibiotics daptomycin and cefepime. Blood pressure medications Lasix and metoprolol on hold. Continue to monitor H&H and continue with PPI CT of the abdomen pelvis showed small amount of ascites and bilateral pleural effusions. Follow-up urine culture and blood cultures. Continue to monitor renal function and follow-up closely. Pulmonary and nephrology is on board. Prognosis is guarded at this time due to multimedical problems and comorbid conditions Discussed with her at bedside in detail. Time with Patient: Greater than 30
[2023-11-02 04:01] LABS: Anisocytosis Moderate; HCT 23.5 % (34.0-46.0); HGB 7.5 gm/dL (11.4-16.0); Hypochromasia Slight; MCH 30.8 pg (25.0-35.0); MCV 96.2 fL (80.0-100.0); Macrocytosis Moderate; Mean Platelet Volume 12.5; Poikilocytosis Slight; RBC 2.44 m/uL (3.80-5.40); RDW 23.7 % (11.5-15.5)
[2023-11-02 04:11] LABS: ALT 41 U/L (4-34); AST 87 U/L (14-36); African American GFR (CKD) 14 (>60 ml/min/1.73 sqM); Albumin 1.8 g/dL (3.5-5.0); Alkaline Phosphatase 139 U/L (38-126); Anion Gap 10 mmol/L; Blood Urea Nitrogen 93 mg/dL (7-17); Calcium 7.8 mg/dL (8.4-10.2); Carbon Dioxide 14 mmol/L (22-30); Chloride 113 mmol/L (98-107); Glucose 89 mg/dL (74-99); Non-African American GFR(CKD) 12 (>60 ml/min/1.73 sqM); Potassium 4.3 mmol/L (3.5-5.1); Sodium 137 mmol/L (137-145); Total Protein 4.7 g/dL (6.3-8.2)
[2023-11-02 04:23] LABS: Platelet Count 53 k/uL (150-450)
[2023-11-02] MEDS: ONDANSETRON 4 MG/2 ML VIAL IVP PRN (04:55)
[2023-11-02 05:11] LABS: Band Neutrophils % 1 %; Eosinophils # (M) 1.51 k/uL (0-0.7); Lymphocytes # (M) 1.18 k/uL (1.0-4.8); Metamyelocytes # (M) 0.17 k/uL (0); Metamyelocytes % 1 %; Monocytes # (M) 1.51 k/uL (0-1.0); Neutrophils % (M) 75 %; Nucleated Red Blood Cells 11 /100 WBC (0-0); Total Cells Counted 200; WBC 16.8 k/uL (3.8-10.6)
[2023-11-02 05:23] LABS: Crenated RBC Present; Ovalocytes Present; Tear Drop Cells Present
[2023-11-02] MEDS: VASOPRESSIN 60 UNIT in SODIUM CHLORIDE 0.9% 150 ML IV SCH (05:41)
[2023-11-02] MEDS: ALBUTEROL NEBULIZED 2.5 MG/3 ML INHALATION PRN (08:17)
[2023-11-02 10:18] LABS: ABG Base Excess -7.2 mmol/L; ABG HCO3 17 mmol/L (21-25); ABG Oxygen Saturation 96.4 % (94-97); ABG PCO2 29 mmHg (35-45); ABG PH 7.38 (7.35-7.45); ABG PO2 76 mmHg (83-108); ABG TCO2 18 mmol/L (19-24); Allen Test Performed? Yes
[2023-11-02] MEDS: ALBUMIN HUMAN 25% 50 ML in EMPTY BAG 1 BAG IVPB SCH (10:18)
[2023-11-02] MEDS: FUROSEMIDE 10 MG/ML 10 ML VIAL IV SCH (10:37)
[2023-11-02 11:54] LABS: Glucose,Whole Blood 114 mg/dL (70-110)
--- NOTE | 2023-11-02 12:48 | XR ---
EXAM: XR chest 1V portable CLINICAL INDICATION:Female, 78 years old with history of potential aspiration; MERGED WITH [facility] COMPARISON: 11/01/2023. TECHNIQUE: Chest single view. FINDINGS: A diffuse interstitial pattern with bibasilar pleural/parenchymal opacities left greater than right, stable. Heart mildly prominent. Atherosclerotic change aorta. No pneumothorax. Degenerative changes o f the spine without acute pathology evident. IMPRESSION: Unchanged cardiopulmonary status, correlate for CHF/fluid overload. Superimposed infection should be excluded clinically.
--- NOTE | 2023-11-02 15:28 | P.PN ---
Subjective Progress Note Date: 11/02/23 Patient is an 78-year-old white female with past medical history significant for chronic bronchial asthma, heart failure with preserved ejection fraction, atrial fibrillation not currently on anticoagulation, GI bleed, previous cholecystitis status post laparoscopic cholecystectomy, previous gastric perforation, inclusion body myositis, chronic right lower extremity wound, among other things. She is very debilitated at baseline and has had multiple hospitalizations this year. She is currently a halfway resident. Of note, patient was just recently discharged from the hospital approximately 1 week ago. She was thought to have upper GI bleed. Underwent EGD on 10/23/2023 which did not find any active GI bleeding, there was mild antral gastritis and duodenitis but no evidence of peptic ulcer disease. Early this morning, she was sent in from her [facility] for altered mental status. We were asked to evaluate this patient as she has been noted to be profoundly hypotensive refractory at initial attempts of fluid resuscitation of total 2 L normal saline bolus. Currently on norepinephrine infusion at 0.08 mcg/kg/min. She is also noted to be bradycardic and hypothermic. Initial temperature noted to be 84 F on arrival and is up to 90.7 F. External warming blanket on. She is currently in the emergency department, trauma bay 2. Her eyes are open, but she does not respond to any my questioning. Will withdraw to painful stimuli. Brain CT without contrast did not show any acute hemorrhage, hydrocephalus, or mass effect. She is currently on room air, SpO2 97%. No signs of respiratory distress. Chest x-ray shows mild cardiomegaly with mild pulmonary vascular congestion. No obvious focal infiltrates or evidence of pneumonia. Patient did present with an indwelling urinary catheter. Urinalysis showing pyuria and bacteriuria. CBC: WBC count 8.4, hemoglobin 7.7, hematocrit 24.4, platelets 50,000. PT 21.1. INR 2.1. aPTT 57.2. CMP: Sodium 136, potassium 4.4, chloride 112, serum bicarb 13, BUN 100, creatinine 3.39, glucose 133. Lactic acid level 2.6. LFTs mildly elevate d. Troponin 0.019. NT proBNP 5970. Dr. Spencer is going to insert a central line catheter, and the patient will be admitted to the intensive care unit when bed available. On 11/02/2023, the patient is confused and the mental status remains altered. The patient remains in a shock state with profound hypotension, pressor dependence and the patient remains in renal failure. Currently she is on 3 Suboxone by nasal cannula. Urine output is in order of 15 cc throughout the night. The patient remains on a bicarb infusion at rate of 100 cc an hour. Norepinephrine is running at 0.2 mcg/kg/min and the patient was also given vasopressin physiologic dose at 0.04 units/min. The patient has extensive edema in all 4 extremities. The skin is weeping in the lower extremities specially on the right. The white cell count is at 9.5 with a hemoglobin of 7.3 and a platelet count of 107. BUN 39 with a creatinine of 2.25 and a sodium levels at 137 with a potassium level of 3.7. The patient is afebrile at this point in time. The patient remains encephalopathic and extremely lethargic. Labs from today show a white cell count of 16.8 with a hemoglobin 7.5 and a platelet count of 53. Blood gas showed a pH of 7.38 with a pCO2 of 29 and a pO2 of 76. Sodium level is 137, serum bicarb is at 14 with a BUN of 93 and a creatinine of 3.38. Blood cultures have been negative. LFTs are mildly impaired. The patient remains on a combination of IV cefepime and daptomycin. Blood cultures are still pending. Urine culture is positive for group D Enterococcus. Objective - Vital Signs Vital signs: Vital Signs Temp 97.7 F 11/02/23 08:00 Pulse 84 11/02/23 08:25 Resp 26 H 11/02/23 08:15 BP 104/41 11/02/23 08:15 Pulse Ox 95 11/02/23 08:17 FiO2 Intake & Output 11/01/23 11/02/23 11/02/23 18:59 06:59 18:59 Intake Total 2793.922 1884.314 300.854 Output Total 10 0 15 Balance 2783.922 1884.314 285.854 Weight 90.718 kg 97.1 kg Intake: IV 480 1370 240 .9 @ KVO 220 40 Cefepime 1 gm In Sodium 50 Chloride 0.9% 50 ml @ 12. 5 mls/hr IVPB Q12HR [facility] Rx#:[id number] Dextrose 5% in Water 1, 1100 200 000 ml @ 100 mls/hr IV . [id number] [facility] with Sodium Bicarb (1 Meq/ml) 150 ml Rx#:[id number] Sodium Chloride 0.9% 1, 480 000 ml @ 130 mls/hr IV . Q7H42M [facility] Rx#:[id number] Intake, IV Titration 2313.922 514.314 60.854 Amount Cefepime 2 gm In Sodium 100 Chloride 0.9% 100 ml @ 100 mls/hr IVPB ONCE ONE Rx#:[id number] DAPTOmycin 300 mg In 50 Sodium Chloride 0.9% 50 ml @ 100 mls/hr IVPB Q48H [facility] Rx#:[id number] Dextrose 5% in Water 1, 1000 000 ml @ 100 mls/hr IV . [id number] [facility] with Sodium Bicarb (1 Meq/ml) 150 ml Rx#:[id number] Norepinephrine 4 mg In 95.051 Sodium Chloride 0.9% 250 ml @ 0.03 MCG/KG/MIN 10. 369 mls/hr IV .Q24H [facility] Rx#:[id number] Norepinephrine 8 mg In 18.871 513.166 60.854 Sodium Chloride 0.9% 250 ml @ 0.03 MCG/KG/MIN 5. 266 mls/hr IV .Q24H [facility] Rx#:[id number] Phytonadione 10 mg In 50 Sodium Chloride 0.9% 50 ml @ 100 mls/hr IVPB ONCE STA Rx#:[id number] Sodium Chloride 0.9% 1, 1000 000 ml @ 999 mls/hr IV . Q1H1M [facility] Rx#:[id number] Vasopressin 60 unit In 1.148 Sodium Chloride 0.9% 150 ml @ 0.03 UNITS/MIN 4.59 mls/hr IV .Q24H [facility] Rx#: [id number] Output: Urine 10 0 15 Post Void Residual 0 Other: Voiding Method Indwelling Catheter Indwelling Catheter # Emeses 1 - Exam GENERAL EXAM: Disheveled, 78-year-old white female, with open eyes but does not make eye contact or track, no signs of acute distress. The patient remains on 3 L of oxygen by nasal cannula, encephalopathic HEAD: Normocephalic and atraumatic EYES: Normal reaction of pupils, equal size. NOSE: Clear with pink turbinates. THROAT: No erythema or exudates. NECK: No masses, no JVD. CHEST: No chest wall deformity. LUNGS: Equal air entry with no crackles, wheeze, rhonchi or dullness. No accessory muscle use. CVS: S1 and S2 normal with no audible murmur, regular rhythm. No extra heart sounds ABDOMEN: Obese abdomen, no hepatosplenomegaly, active bowel sounds, no guarding or rigidity. SPINE: No scoliosis or deformity SKIN: No rashes CENTRAL NERVOUS SYSTEM: No focal deficits, tone is normal in all 4 extremities. EXTREMITIES: Bilateral lower extremity pitting edema +3,, right leg is wrapped with Sky bandage. No clubbing, or cyanosis. Peripheral pulses are intact. - Labs CBC & Chem 7: 11/02/23 03:11 11/02/23 03:11 Labs: Abnormal Lab Results - Last 24 Hours (Table) 11/01/23 11/01/23 11/01/23 Range/Units 00:04 09:20 16:30 WBC (3.8-10.6) k/uL RBC (3.80-5.40) m/uL Hgb (11.4-16.0) gm/dL Hct (34.0-46.0) % RDW (11.5-15.5) % Plt Count (150-450) k/uL Neutrophils # (Manual) (1.3-7.7) k/uL Monocytes # (Manual) (0-1.0) k/uL Eosinophils # (Manual) (0-0.7) k/uL Metamyelocytes # (Man) (0) k/uL Nucleated RBCs (0-0) /100 WBC Chloride 115 H (98-107) mmol/L Carbon Dioxide 14 L (22-30) mmol/L BUN 92 H (7-17) mg/dL Creatinine 3.29 H (0.52-1.04) mg/dL Plasma Lactic Acid Shane 2.6 H* (0.7-2.0) mmol/L Calcium 8.2 L (8.4-10.2) mg/dL Total Bilirubin (0.2-1.3) mg/dL AST (14-36) U/L ALT (4-34) U/L Alkaline Phosphatase (38-126) U/L Total Protein (6.3-8.2) g/dL Albumin (3.5-5.0) g/dL Procalcitonin 0.16 H (0.02-0.09) ng/mL 11/02/23 11/02/23 Range/Units 03:11 03:11 WBC 16.8 H (3.8-10.6) k/uL RBC 2.44 L (3.80-5.40) m/uL Hgb 7.5 L (11.4-16.0) gm/dL Hct 23.5 L (34.0-46.0) % RDW 23.7 H (11.5-15.5) % Plt Count 53 L (150-450) k/uL Neutrophils # (Manual) 12.70 H (1.3-7.7) k/uL Monocytes # (Manual) 1.51 H (0-1.0) k/uL Eosinophils # (Manual) 1.51 H (0-0.7) k/uL Metamyelocytes # (Man) 0.17 H (0) k/uL Nucleated RBCs 11 H (0-0) /100 WBC Chloride 113 H (98-107) mmol/L Carbon Dioxide 14 L (22-30) mmol/L BUN 93 H (7-17) mg/dL Creatinine 3.38 H (0.52-1.04) mg/dL Plasma Lactic Acid Shane (0.7-2.0) mmol/L Calcium 7.8 L (8.4-10.2) mg/dL Total Bilirubin 4.0 H (0.2-1.3) mg/dL AST 87 H (14-36) U/L ALT 41 H (4-34) U/L Alkaline Phosphatase 139 H (38-126) U/L Total Protein 4.7 L (6.3-8.2) g/dL Albumin 1.8 L (3.5-5.0) g/dL Procalcitonin (0.02-0.09) ng/mL Microbiology - Last 24 Hours (Table) 11/01/23 00:45 Blood Culture - Preliminary Blood 11/01/23 00:30 Blood Culture - Preliminary Blood Assessment and Plan Assessment: Septic shock, currently on high-dose pressors. The patient remains hypotensive. Suspect urine tract infection the patient's urine culture is positive for Enterococcus group. The patient is currently on daptomycin. Patient is also on IV cefepime. The patient is on bicarb infusion and the patient is also on a combination of norepinephrine and vasopressin physiologic dose. Urine output is minimal and the patient is oliguric. Encephalopathy secondary to above Acute hypoxic respiratory failure secondary to above and the patient is currently on 3 L of oxygen nasal cannula Hypothermia and sinus bradycardia with first degree AV block, external blanket warmer on Non-anion gap metabolic acidosis, currently on a bicarb infusion Acute on chronic kidney disease, likely secondary to hypotension and ATN, and the patient has chronic stage IIIb kidney failure. Urine output remains extremely low and the patient remains on pressors Altered mental status, suspect component of acute metabolic encephalopathy, possibly secondary to sepsis Chronic anemia, hemoglobin stable at 7.7 g/dL Chronic kidney disease stage IIIb Chronic thrombocytopenia Mild transaminitis Chronic lower right lower extremity wound History of heart failure with preserved ejection fraction History of paroxysmal atrial fibrillation, not currently on any anticoagulation History of chronic bronchial asthma, does not appear active History of GI bleed, recently underwent EGD on 10/23/23, no active bleeding was identified. There was mild antral gastritis and duodenitis but no evidence of peptic ulcer disease. There was a small hiatal hernia. History of cholecystitis status post laparoscopic cholecystectomy 08/06/2023 History of gastric perforation, with diagnostic laparoscopic repair on 06/15/2023 History of inclusion body myositis Obesity with a BMI of 32.3 kg/m Chronic medical debility and halfway resident Plan: Keep the patient on 3 days of oxygen by nasal cannula titrate oxygen flow to maintain saturation above 90% Monitor mental status Continue with pressors and the patient is on a combination of norepinephrine and vasopressin physiologic dose and the patient has a triple-lumen catheter in place Continue IV cefepime and daptomycin Continue bicarb infusion Hester catheter has been replaced Wound care Consult nephrology Give the patient IV albumin, 25 g, 5% followed by 80 mg of IV Lasix She is a halfway resident and her CODE STATUS is full. Will continue to follow. Condition is critical and will continue to follow make further recommendations based on her progress. Case was discussed at length with the at the bedside. This is a critical care evaluation. This evaluation was done more than 30 minutes. Case were discussed with the various consultants. Time with Patient: Greater than 30
--- NOTE | 2023-11-02 17:09 | P.PN ---
Subjective Progress Note Date: 11/02/23 Principal diagnosis: Reason for follow-up is sepsis Patient is a 78-year-old female with a past medical history significant for heart failure hypertension osteoarthritis lower extremity cellulitis recently admitted to this facility and treated for possible UTI patient was stabilized and discharged to the local retirement patient has been brought back to the ER after midnight for evaluation of mental status changes and hypotension as well as hypothermia requiring admission to the ICU. On today's visit that is 11/02/2023 patient still requiring warming blanket as the temperature goes down when she is taken off of it patient is requiring pressor support patient is currently on 2 L nasal cannula oxygen remains to be lethargic unable provide any history no vomiting or diarrhea has been reported by the nursing staff. Patient white count is 16.8, creatinine is 3.38 urine is growing Enterococcus blood cultures are pending Objective - Vital Signs Vital signs: Vital Signs Temp 97.7 F 11/02/23 08:00 Pulse 81 11/02/23 12:26 Resp 28 H 11/02/23 11:15 BP 106/48 11/02/23 11:15 Pulse Ox 94 L 11/02/23 11:15 FiO2 Intake & Output 11/01/23 11/02/23 11/02/23 18:59 06:59 18:59 Intake Total 2793.922 1884.314 809.624 Output Total 10 0 15 Balance 2783.922 1884.314 794.624 Weight 90.718 kg 97.1 kg 97.1 kg Intake: IV 480 1370 600 .9 @ KVO 220 100 Cefepime 1 gm In Sodium 50 Chloride 0.9% 50 ml @ 12. 5 mls/hr IVPB Q12HR [facility] Rx#:[id number] Dextrose 5% in Water 1, 1100 500 000 ml @ 100 mls/hr IV . [id number] [facility] with Sodium Bicarb (1 Meq/ml) 150 ml Rx#:[id number] Sodium Chloride 0.9% 1, 480 000 ml @ 130 mls/hr IV . Q7H42M [facility] Rx#:[id number] Intake, IV Titration 2313.922 514.314 209.624 Amount Cefepime 2 gm In Sodium 100 Chloride 0.9% 100 ml @ 100 mls/hr IVPB ONCE ONE Rx#:[id number] DAPTOmycin 300 mg In 50 Sodium Chloride 0.9% 50 ml @ 100 mls/hr IVPB Q48H [facility] Rx#:[id number] Dextrose 5% in Water 1, 1000 000 ml @ 100 mls/hr IV . [id number] [facility] with Sodium Bicarb (1 Meq/ml) 150 ml Rx#:[id number] Norepinephrine 4 mg In 95.051 Sodium Chloride 0.9% 250 ml @ 0.03 MCG/KG/MIN 10. 369 mls/hr IV .Q24H [facility] Rx#:[id number] Norepinephrine 8 mg In 18.871 513.166 209.624 Sodium Chloride 0.9% 250 ml @ 0.03 MCG/KG/MIN 5. 266 mls/hr IV .Q24H [facility] Rx#:[id number] Phytonadione 10 mg In 50 Sodium Chloride 0.9% 50 ml @ 100 mls/hr IVPB ONCE STA Rx#:[id number] Sodium Chloride 0.9% 1, 1000 000 ml @ 999 mls/hr IV . Q1H1M [facility] Rx#:[id number] Vasopressin 60 unit In 1.148 Sodium Chloride 0.9% 150 ml @ 0.03 UNITS/MIN 4.59 mls/hr IV .Q24H [facility] Rx#: [id number] Output: Urine 10 0 15 Post Void Residual 0 Other: Voiding Method Indwelling Catheter Indwelling Catheter Indwelling Catheter # Emeses 1 - Exam GENERAL DESCRIPTION: An elderly female lying in bed in no distress RESPIRATORY SYSTEM: Unlabored breathing , decreased breath sounds at bases HEART: S1 S2 regular rate and rhythm , ABDOMEN: Soft , no tenderness EXTREMITIES: Right leg wound is currently dressed did have some drainage of the dressing - Labs CBC & Chem 7: 11/02/23 03:11 11/02/23 03:11 Labs: Abnormal Lab Results - Last 24 Hours (Table) 11/01/23 11/02/23 11/02/23 Range/Units 16:30 03:11 03:11 WBC 16.8 H (3.8-10.6) k/uL RBC 2.44 L (3.80-5.40) m/uL Hgb 7.5 L (11.4-16.0) gm/dL Hct 23.5 L (34.0-46.0) % RDW 23.7 H (11.5-15.5) % Plt Count 53 L (150-450) k/uL Neutrophils # (Manual) 12.70 H (1.3-7.7) k/uL Monocytes # (Manual) 1.51 H (0-1.0) k/uL Eosinophils # (Manual) 1.51 H (0-0.7) k/uL Metamyelocytes # (Man) 0.17 H (0) k/uL Nucleated RBCs 11 H (0-0) /100 WBC ABG pCO2 (35-45) mmHg ABG pO2 (83-108) mmHg ABG HCO3 (21-25) mmol/L ABG Total CO2 (19-24) mmol/L Chloride 115 H 113 H (98-107) mmol/L Carbon Dioxide 14 L 14 L (22-30) mmol/L BUN 92 H 93 H (7-17) mg/dL Creatinine 3.29 H 3.38 H (0.52-1.04) mg/dL POC Glucose (mg/dL) (70-110) mg/dL Calcium 8.2 L 7.8 L (8.4-10.2) mg/dL Total Bilirubin 4.0 H (0.2-1.3) mg/dL AST 87 H (14-36) U/L ALT 41 H (4-34) U/L Alkaline Phosphatase 139 H (38-126) U/L Total Protein 4.7 L (6.3-8.2) g/dL Albumin 1.8 L (3.5-5.0) g/dL 11/01/24 / Range/Units 10:10 11:53 WBC (3.8-10.6) k/uL RBC (3.80-5.40) m/uL Hgb (11.4-16.0) gm/dL Hct (34.0-46.0) % RDW (11.5-15.5) % Plt Count (150-450) k/uL Neutrophils # (Manual) (1.3-7.7) k/uL Monocytes # (Manual) (0-1.0) k/uL Eosinophils # (Manual) (0-0.7) k/uL Metamyelocytes # (Man) (0) k/uL Nucleated RBCs (0-0) /100 WBC ABG pCO2 29 L (35-45) mmHg ABG pO2 76 L (83-108) mmHg ABG HCO3 17 L (21-25) mmol/L ABG Total CO2 18 L (19-24) mmol/L Chloride (98-107) mmol/L Carbon Dioxide (22-30) mmol/L BUN (7-17) mg/dL Creatinine (0.52-1.04) mg/dL POC Glucose (mg/dL) 114 H (70-110) mg/dL Calcium (8.4-10.2) mg/dL Total Bilirubin (0.2-1.3) mg/dL AST (14-36) U/L ALT (4-34) U/L Alkaline Phosphatase (38-126) U/L Total Protein (6.3-8.2) g/dL Albumin (3.5-5.0) g/dL Microbiology - Last 24 Hours (Table) 11/01/23 00:44 Urine Culture - Preliminary Urine,Catheterized Group D Enterococcus 11/01/23 00:45 Blood Culture - Preliminary Blood 11/01/23 00:30 Blood Culture - Preliminary Blood Assessment and Plan (1) Sepsis Current Visit: No Status: Acute Code(s): A41.9 - SEPSIS, UNSPECIFIED ORGANISM SNOMED Code(s): 16065876 (2) UTI (urinary tract infection) Current Visit: No Status: Acute Code(s): N39.0 - URINARY TRACT INFECTION, SITE NOT SPECIFIED SNOMED Code(s): 59179324 Plan: 1patient was in the hospital with sepsis in this patient who did have hypothermia hypotension requiring pressor support with a source of sepsis could be UTI versus right lower extremity wound and cellulitis and the patient chest x-ray did not show any evidence of pneumonia CT abdominal pelvis did show some ascites but did not mention any colitis or abscess 2-patient with a penicillin allergy that will limit the number of antibiotics safe to use 3-renal insufficiency high risk of nephrotoxicity 4-blood culture currently pending urine is growing Enterococcus with sensitivities pending 5-patient to continue with cefepime and daptomycin while waiting for the culture to finalize overall prognosis remains to be guarded Dictation was produced using [employer] dictation software. please excuse any grammatical, word or spelling errors. Time with Patient: Less than 30
--- NOTE | 2023-11-02 19:17 | P.PN ---
Subjective Progress Note Date: 11/02/23 Patient seen in follow-up for HALINA. Patient lethargic. Spoke with bedside, would want HD if needed. Exam: General: NAD, sleeping Heart: +S1 and S2 Lungs: bilateral breath sounds are heard with decreased breath sounds at the bases Abdomen: soft obese, mild tenderness mid abdomen. Lower extremities: chronic skin changes, trace edema noted. Large right lower extremity ulceration noted, appears dry. Objective - Vital Signs Vital signs: Vital Signs Temp 97.7 F 11/02/23 08:00 Pulse 73 11/02/23 09:45 Resp 27 H 11/02/23 09:45 BP 117/51 11/02/23 09:45 Pulse Ox 95 11/02/23 09:45 FiO2 Intake & Output 11/01/23 11/02/23 11/02/23 18:59 06:59 18:59 Intake Total 2793.922 1884.314 300.854 Output Total 10 0 15 Balance 2783.922 1884.314 285.854 Weight 90.718 kg 97.1 kg Intake: IV 480 1370 240 .9 @ KVO 220 40 Cefepime 1 gm In Sodium 50 Chloride 0.9% 50 ml @ 12. 5 mls/hr IVPB Q12HR [facility] Rx#:[id number] Dextrose 5% in Water 1, 1100 200 000 ml @ 100 mls/hr IV . [id number] [facility] with Sodium Bicarb (1 Meq/ml) 150 ml Rx#:[id number] Sodium Chloride 0.9% 1, 480 000 ml @ 130 mls/hr IV . Q7H42M [facility] Rx#:[id number] Intake, IV Titration 2313.922 514.314 60.854 Amount Cefepime 2 gm In Sodium 100 Chloride 0.9% 100 ml @ 100 mls/hr IVPB ONCE ONE Rx#:[id number] DAPTOmycin 300 mg In 50 Sodium Chloride 0.9% 50 ml @ 100 mls/hr IVPB Q48H [facility] Rx#:[id number] Dextrose 5% in Water 1, 1000 000 ml @ 100 mls/hr IV . [id number] [facility] with Sodium Bicarb (1 Meq/ml) 150 ml Rx#:[id number] Norepinephrine 4 mg In 95.051 Sodium Chloride 0.9% 250 ml @ 0.03 MCG/KG/MIN 10. 369 mls/hr IV .Q24H [facility] Rx#:[id number] Norepinephrine 8 mg In 18.871 513.166 60.854 Sodium Chloride 0.9% 250 ml @ 0.03 MCG/KG/MIN 5. 266 mls/hr IV .Q24H [facility] Rx#:[id number] Phytonadione 10 mg In 50 Sodium Chloride 0.9% 50 ml @ 100 mls/hr IVPB ONCE [facility] Rx#:[id number] Sodium Chloride 0.9% 1, 1000 000 ml @ 999 mls/hr IV . Q1H1M [facility] Rx#:[id number] Vasopressin 60 unit In 1.148 Sodium Chloride 0.9% 150 ml @ 0.03 UNITS/MIN 4.59 mls/hr IV .Q24H [facility] Rx#: [id number] Output: Urine 10 0 15 Post Void Residual 0 Other: Voiding Method Indwelling Catheter Indwelling Catheter Indwelling Catheter # Emeses 1 - Labs CBC & Chem 7: 11/02/23 03:11 11/02/23 03:11 Labs: Abnormal Lab Results - Last 24 Hours (Table) 11/01/23 11/01/23 11/02/23 Range/Units 00:04 16:30 03:11 WBC 16.8 H (3.8-10.6) k/uL RBC 2.44 L (3.80-5.40) m/uL Hgb 7.5 L (11.4-16.0) gm/dL Hct 23.5 L (34.0-46.0) % RDW 23.7 H (11.5-15.5) % Plt Count 53 L (150-450) k/uL Neutrophils # (Manual) 12.70 H (1.3-7.7) k/uL Monocytes # (Manual) 1.51 H (0-1.0) k/uL Eosinophils # (Manual) 1.51 H (0-0.7) k/uL Metamyelocytes # (Man) 0.17 H (0) k/uL Nucleated RBCs 11 H (0-0) /100 WBC ABG pCO2 (35-45) mmHg ABG pO2 (83-108) mmHg ABG HCO3 (21-25) mmol/L ABG Total CO2 (19-24) mmol/L Chloride 115 H (98-107) mmol/L Carbon Dioxide 14 L (22-30) mmol/L BUN 92 H (7-17) mg/dL Creatinine 3.29 H (0.52-1.04) mg/dL Calcium 8.2 L (8.4-10.2) mg/dL Total Bilirubin (0.2-1.3) mg/dL AST (14-36) U/L ALT (4-34) U/L Alkaline Phosphatase (38-126) U/L Total Protein (6.3-8.2) g/dL Albumin (3.5-5.0) g/dL Procalcitonin 0.16 H (0.02-0.09) ng/mL 11/02/23 11/02/23 Range/Units 03:11 10:10 WBC (3.8-10.6) k/uL RBC (3.80-5.40) m/uL Hgb (11.4-16.0) gm/dL Hct (34.0-46.0) % RDW (11.5-15.5) % Plt Count (150-450) k/uL Neutrophils # (Manual) (1.3-7.7) k/uL Monocytes # (Manual) (0-1.0) k/uL Eosinophils # (Manual) (0-0.7) k/uL Metamyelocytes # (Man) (0) k/uL Nucleated RBCs (0-0) /100 WBC ABG pCO2 29 L (35-45) mmHg ABG pO2 76 L (83-108) mmHg ABG HCO3 17 L (21-25) mmol/L ABG Total CO2 18 L (19-24) mmol/L Chloride 113 H (98-107) mmol/L Carbon Dioxide 14 L (22-30) mmol/L BUN 93 H (7-17) mg/dL Creatinine 3.38 H (0.52-1.04) mg/dL Calcium 7.8 L (8.4-10.2) mg/dL Total Bilirubin 4.0 H (0.2-1.3) mg/dL AST 87 H (14-36) U/L ALT 41 H (4-34) U/L Alkaline Phosphatase 139 H (38-126) U/L Total Protein 4.7 L (6.3-8.2) g/dL Albumin 1.8 L (3.5-5.0) g/dL Procalcitonin (0.02-0.09) ng/mL Microbiology - Last 24 Hours (Table) 11/01/23 00:44 Urine Culture - Preliminary Urine,Catheterized Group D Enterococcus 11/01/23 00:45 Blood Culture - Preliminary Blood 11/01/23 00:30 Blood Culture - Preliminary Blood Assessment and Plan Assessment: 1. Acute kidney injury, ATN, oliguric secondary to hypotension and possible underlying sepsis. Continue with IV hydration and pressors. No evidence of obstruction on CT of the abdomen. UA many hyaline casts, possible infection, not clean catch. 2. Recent episode of acute kidney injury during her last hospitalization about 2 weeks ago with serum creatinine ranging from 2.3 to 3 mg/dL. Sumpter to be mostly ATN associated with hemodynamic instability and anemia. 3. Hypotension and shock most likely septic. Large right lower extremity ulcer noted. Workup in progress. No obvious pneumonia noted. UA is pending. Maintained on IV fluids and pressors along with empiric antibiotics. 4. Metabolic acidosis, anion gap secondary to acute kidney injury and lactic acidosis. Documented anion gap is low due to hypoalbuminemia. 5. Recent hospitalization for GI bleed. Status post EGD which did not show any active bleeding. Hemoglobin was as low as 6.3. Current hemoglobin at 7.7 g/dL. Plan: Continue IV bicarb. Continue with empiric antibiotics. Repeat labs in a.m. Avoid any nephrotoxic agents. Doubt acute GN. If urine output and renal funciton does not improve may need HD next 24-48 hrs.
[2023-11-03] MEDS ORDERED: DEXTROSE 5% IN WATER 250 ML with AMIODARONE 300 MG IV ONE (03:22)
[2023-11-03 03:26] LABS: Glucose,Whole Blood 122 mg/dL (70-110)
[2023-11-03] MEDS: DEXTROSE 5% IN WATER 100 ML with AMIODARONE 150 MG IV ONE (03:31)
[2023-11-03] MEDS: AMIODARONE 360 MG in DEXTROSE 5% IN WATER 200 ML IV ONE (03:47)
[2023-11-03 04:57] LABS: Anisocytosis Marked; Basophils # (A) 0.1 k/uL (0-0.2); Basophils % (A) 0 %; Eosinophils # (A) 0.3 k/uL (0-0.7); Eosinophils % (A) 2 %; HGB 7.1 gm/dL (11.4-16.0); Hypochromasia Moderate; Lymphocytes # (A) 1.5 k/uL (1.0-4.8); Lymphocytes % (A) 9 %; MCH 30.6 pg (25.0-35.0); MCHC 31.1 g/dL (31.0-37.0); MCV 98.5 fL (80.0-100.0); Macrocytosis Moderate; Mean Platelet Volume 12.2; Monocytes # (A) 1.1 k/uL (0-1.0); Monocytes % (A) 7 %; Neutrophils % (A) 77 %; Poikilocytosis Slight; RBC 2.33 m/uL (3.80-5.40); RDW 24.6 % (11.5-15.5); WBC 16.9 k/uL (3.8-10.6)
[2023-11-03 05:18] LABS: ALT 36 U/L (4-34); AST 84 U/L (14-36); African American GFR (CKD) 13 (>60 ml/min/1.73 sqM); Alkaline Phosphatase 126 U/L (38-126); Anion Gap 14 mmol/L; Blood Urea Nitrogen 91 mg/dL (7-17); Calcium 7.1 mg/dL (8.4-10.2); Carbon Dioxide 13 mmol/L (22-30); Chloride 110 mmol/L (98-107); Glucose 113 mg/dL (74-99); Magnesium 1.4 mg/dL (1.6-2.3); Non-African American GFR(CKD) 11 (>60 ml/min/1.73 sqM); Potassium 4.1 mmol/L (3.5-5.1); Sodium 137 mmol/L (137-145); Total Bilirubin 5.5 mg/dL (0.2-1.3); Total Protein 4.9 g/dL (6.3-8.2)
[2023-11-03] MEDS ORDERED: Magnesium Replacement Protocol 1 EACH MISC MISCELLANE PRN (05:33)
[2023-11-03] MEDS: MAGNESIUM SULFATE-D5W PMX 1 GM in DEXTROSE/WATER 1 100ML.BAG IVPB SCH (05:39)
--- NOTE | 2023-11-03 07:32 | XR ---
EXAMINATION TYPE: XR chest 1V portable DATE OF EXAM: 11/03/2023 5:25 AM CLINICAL INDICATION:Female, 78 years old with history of resp status; [facility] COMPARISON: Chest radiograph from one day prior. TECHNIQUE: XR chest 1V portable Frontal view of the chest. FINDINGS: Lungs/Pleura: Small left pleural effusion. There is no evidence of right pleural effusion, focal cons olidation, or pneumothorax. Pulmonary vascularity: Pulmonary vascular congestion. Heart/mediastinum: Cardiomediastinal silhouette is enlarged and stable. Musculoskeletal: No acute osseous pathology. Other findings: None IMPRESSION: Stable exam with small left pleural effusion and pulmonary vascular congestion.
[2023-11-03 08:59] LABS: Platelet Count 45 k/uL (150-450)
[2023-11-03] MEDS: SODIUM BICARB 8.4% 50 ML SYR (1 MEQ/ML) IV STA (09:38)
[2023-11-03] MEDS: ALBUMIN HUMAN 25% 50 ML in EMPTY BAG 1 BAG IVPB SCH ×2 (09:45→18:15)
[2023-11-03] MEDS: AMIODARONE 450 MG in DEXTROSE 5% IN WATER 250 ML IV SCH (10:31)
[2023-11-03] MEDS: FUROSEMIDE 10 MG/ML 10 ML VIAL IV SCH (11:30)
--- NOTE | 2023-11-03 11:52 | P.PN ---
Subjective Progress Note Date: 11/03/23 Patient is an 78-year-old white female with past medical history significant for chronic bronchial asthma, heart failure with preserved ejection fraction, atrial fibrillation not currently on anticoagulation, GI bleed, previous cholecystitis status post laparoscopic cholecystectomy, previous gastric perforation, inclusion body myositis, chronic right lower extremity wound, among other things. She is very debilitated at baseline and has had multiple hospitalizations this year. She is currently a [facility] resident. Of note, patient was just recently discharged from the hospital approximately 1 week ago. She was thought to have upper GI bleed. Underwent EGD on 10/23/2023 which did not find any active GI bleeding, there was mild antral gastritis and duodenitis but no evidence of peptic ulcer disease. Early this morning, she was sent in from her [facility] for altered mental status. We were asked to evaluate this patient as she has been noted to be profoundly hypotensive refractory at initial attempts of fluid resuscitation of total 2 L normal saline bolus. Currently on norepinephrine infusion at 0.08 mcg/kg/min. She is also noted to be bradycardic and hypothermic. Initial temperature noted to be 84 F on arrival and is up to 90.7 F. External warming blanket on. She is currently in the emergency department, trauma bay 2. Her eyes are open, but she does not respond to any my questioning. Will withdraw to painful stimuli. Brain CT without contrast did not show any acute hemorrhage, hydrocephalus, or mass effect. She is currently on room air, SpO2 97%. No signs of respiratory distress. Chest x-ray shows mild cardiomegaly with mild pulmonary vascular congestion. No obvious focal infiltrates or evidence of pneumonia. Patient did present with an indwelling urinary catheter. Urinalysis showing pyuria and bacteriuria. CBC: WBC count 8.4, hemoglobin 7.7, hematocrit 24.4, platelets 50,000. PT 21.1. INR 2.1. aPTT 57.2. CMP: Sodium 136, potassium 4.4, chloride 112, serum bicarb 13, BUN 100, creatinine 3.39, glucose 133. Lactic acid level 2.6. LFTs mildly elevate d. Troponin 0.019. NT proBNP 5970. Dr. Spencer is going to insert a central line catheter, and the patient will be admitted to the intensive care unit when bed available. On 11/02/2023, the patient is confused and the mental status remains altered. The patient remains in a shock state with profound hypotension, pressor dependence and the patient remains in renal failure. Currently she is on 3 Suboxone by nasal cannula. Urine output is in order of 15 cc throughout the night. The patient remains on a bicarb infusion at rate of 100 cc an hour. Norepinephrine is running at 0.2 mcg/kg/min and the patient was also given vasopressin physiologic dose at 0.04 units/min. The patient has extensive edema in all 4 extremities. The skin is weeping in the lower extremities specially on the right. The white cell count is at 9.5 with a hemoglobin of 7.3 and a platelet count of 107. BUN 39 with a creatinine of 2.25 and a sodium levels at 137 with a potassium level of 3.7. The patient is afebrile at this point in time. The patient remains encephalopathic and extremely lethargic. Labs from today show a white cell count of 16.8 with a hemoglobin 7.5 and a platelet count of 53. Blood gas showed a pH of 7.38 with a pCO2 of 29 and a pO2 of 76. Sodium level is 137, serum bicarb is at 14 with a BUN of 93 and a creatinine of 3.38. Blood cultures have been negative. LFTs are mildly impaired. The patient remains on a combination of IV cefepime and daptomycin. Blood cultures are still pending. Urine culture is positive for group D Enterococcus. On today's evaluation of 11/03/2023, the patient is encephalopathic in a shock state. The patient remains on 3 L of oxygen by nasal cannula. Urine output is absent. The patient remains on a bicarb infusion at rate of 100 cc an hour. S jayant bicarb is at 13. Overnight, the patient had wide-complex tachycardia, probably A-fib with aberrancy and the patient was started on amiodarone drip and the cardiac rhythm is currently sinus. The patient remains on norepinephrine which is running at 0.18 mcg/kg/min and the patient is also on vasopressin physiologic fluids. Urine culture was positive for Enterococcus group D. The patient is on daptomycin and cefepime. The white cell count is 16.9 with a hemoglobin 7.1 and platelet count of 45. Sodium is at 137, bicarb 30, anion gap is at 14 with a BUN of 91 and a creatinine of 3.6. LFTs are mildly elevated and abnormal. Chest x-ray findings are essentially unchanged. The patient has developed some small left-sided pleural effusion. Objective - Vital Signs Vital signs: Vital Signs Temp 96.4 F L 11/03/23 04:00 Pulse 82 11/03/23 07:00 Resp 26 H 11/03/23 07:00 BP 107/52 11/03/23 07:00 Pulse Ox 94 L 11/03/23 07:00 FiO2 Intake & Output 11/02/23 11/03/23 11/03/23 18:59 06:59 18:59 Intake Total 0803.457 3513.746 120 Output Total 15 0 0 Balance 7127.023 4325.746 120 Weight 97.1 kg 99.8 kg Intake: IV 1590 1660 120 .9 @ KVO 240 260 20 Albumin Human 25% 50 ml 100 In Empty Bag 1 bag @ 50 mls/hr IVPB Q1H [facility] Rx#: [id number] Cefepime 1 gm In Sodium 50 Chloride 0.9% 50 ml @ 12. 5 mls/hr IVPB Q12HR [facility] Rx#:[id number] Dextrose 5% in Water 1, 1200 1300 100 000 ml @ 100 mls/hr IV . [id number] [facility] with Sodium Bicarb (1 Meq/ml) 150 ml Rx#:[id number] Magnesium Sulfate-D5w Pmx 100 1 gm In Dextrose/Water 1 100ml.bag @ 100 mls/hr IVPB Q1H [facility] Rx#: [id number] Intake, IV Titration 258.000 558.746 Amount Norepinephrine 8 mg In 258.000 457.868 Sodium Chloride 0.9% 250 ml @ 0.03 MCG/KG/MIN 5. 266 mls/hr IV .Q24H [facility] Rx#:[id number] Vasopressin 60 unit In 100.878 Sodium Chloride 0.9% 150 ml @ 0.03 UNITS/MIN 4.59 mls/hr IV .Q24H [facility] Rx#: [id number] Output: Urine 15 0 0 Other: Voiding Method Indwelling Catheter Indwelling Catheter - Exam GENERAL EXAM: Disheveled, 78-year-old white female, with open eyes but does not make eye contact or track, no signs of acute distress. The patient remains on 3 L of oxygen by nasal cannula, encephalopathic HEAD: Normocephalic and atraumatic EYES: Normal reaction of pupils, equal size. NOSE: Clear with pink turbinates. THROAT: No erythema or exudates. NECK: No masses, no JVD. CHEST: No chest wall deformity. LUNGS: Equal air entry with no crackles, wheeze, rhonchi or dullness. No accessory muscle use. CVS: S1 and S2 normal with no audible murmur, regular rhythm. No extra heart sounds ABDOMEN: Obese abdomen, no hepatosplenomegaly, active bowel sounds, no guarding or rigidity. SPINE: No scoliosis or deformity SKIN: No rashes CENTRAL NERVOUS SYSTEM: No focal deficits, tone is normal in all 4 extremities. EXTREMITIES: Bilateral lower extremity pitting edema +3,, right leg is wrapped with Sky bandage. No clubbing, or cyanosis. Peripheral pulses are intact. - Labs CBC & Chem 7: 11/03/23 04:00 11/03/23 04:00 Labs: Abnormal Lab Results - Last 24 Hours (Table) 11/02/23 11/02/23 11/03/23 Range/Units 10:10 11:53 03:25 WBC (3.8-10.6) k/uL RBC (3.80-5.40) m/uL Hgb (11.4-16.0) gm/dL Hct (34.0-46.0) % RDW (11.5-15.5) % Plt Count (150-450) k/uL ABG pCO2 29 L (35-45) mmHg ABG pO2 76 L (83-108) mmHg ABG HCO3 17 L (21-25) mmol/L ABG Total CO2 18 L (19-24) mmol/L Chloride (98-107) mmol/L Carbon Dioxide (22-30) mmol/L BUN (7-17) mg/dL Creatinine (0.52-1.04) mg/dL Glucose (74-99) mg/dL POC Glucose (mg/dL) 114 H 122 H (70-110) mg/dL Calcium (8.4-10.2) mg/dL Magnesium (1.6-2.3) mg/dL Total Bilirubin (0.2-1.3) mg/dL AST (14-36) U/L ALT (4-34) U/L Total Protein (6.3-8.2) g/dL Albumin (3.5-5.0) g/dL 11/03/23 11/03/23 Range/Units 04:00 04:00 WBC 16.9 H (3.8-10.6) k/uL RBC 2.33 L (3.80-5.40) m/uL Hgb 7.1 L (11.4-16.0) gm/dL Hct 23.0 L (34.0-46.0) % RDW 24.6 H (11.5-15.5) % Plt Count 45 L (150-450) k/uL ABG pCO2 (35-45) mmHg ABG pO2 (83-108) mmHg ABG HCO3 (21-25) mmol/L ABG Total CO2 (19-24) mmol/L Chloride 110 H (98-107) mmol/L Carbon Dioxide 13 L (22-30) mmol/L BUN 91 H (7-17) mg/dL Creatinine 3.62 H (0.52-1.04) mg/dL Glucose 113 H (74-99) mg/dL POC Glucose (mg/dL) (70-110) mg/dL Calcium 7.1 L (8.4-10.2) mg/dL Magnesium 1.4 L (1.6-2.3) mg/dL Total Bilirubin 5.5 H (0.2-1.3) mg/dL AST 84 H (14-36) U/L ALT 36 H (4-34) U/L Total Protein 4.9 L (6.3-8.2) g/dL Albumin 2.0 L (3.5-5.0) g/dL Microbiology - Last 24 Hours (Table) 11/01/23 00:45 Blood Culture - Preliminary Blood 11/01/23 00:30 Blood Culture - Preliminary Blood 11/01/23 00:44 Urine Culture - Preliminary Urine,Catheterized Group D Enterococcus Assessment and Plan Assessment: Septic shock, currently on high-dose pressors. The patient remains hypotensive. Suspect urine tract infection the patient's urine culture is positive for Enterococcus group D. The patient is currently on daptomycin. Patient is also on IV cefepime. The patient is on bicarb infusion and the patient is also on a combination of norepinephrine and vasopressin physiologic dose. Urine output is moderate at this point in time. Nephrology on the case. Anasarca with hypoproteinemia and fluid seeping from the skin especially lower extremities bilaterally Encephalopathy secondary to above Acute hypoxic respiratory failure secondary to above and the patient is currently on 3 L of oxygen nasal cannula Hypothermia, recovered A-fib/RVR, currently on amiodarone drip and the patient's rhythm is sinus Non-anion gap metabolic acidosis, currently on a bicarb infusion Acute on chronic kidney disease, likely secondary to hypotension and ATN, and the patient has chronic stage IIIb kidney failure. Urine output is essentially 0 Altered mental status, suspect component of acute metabolic encephalopathy, poss ibly secondary to sepsis Chronic anemia, hemoglobin stable at 7. g/dL Chronic kidney disease stage IIIb Chronic thrombocytopenia Mild transaminitis Chronic lower right lower extremity wound History of heart failure with preserved ejection fraction History of paroxysmal atrial fibrillation, not currently on any anticoagulation History of chronic bronchial asthma, does not appear active History of GI bleed, recently underwent EGD on 10/23/23, no active bleeding was identified. There was mild antral gastritis and duodenitis but no evidence of peptic ulcer disease. There was a small hiatal hernia. History of cholecystitis status post laparoscopic cholecystectomy 08/06/2023 History of gastric perforation, with diagnostic laparoscopic repair on 06/15/2023 History of inclusion body myositis Obesity with a BMI of 32.3 kg/m Chronic medical debility and [facility] resident Plan: Keep the patient on 3 days of oxygen by nasal cannula titrate oxygen flow to maintain saturation above 90% Monitor mental status Continue with pressors and the patient is on a combination of norepinephrine and vasopressin physiologic dose and the patient has a triple-lumen catheter in place Continue IV cefepime and daptomycin Continue bicarb infusion Given additional dose of bicarbonate 50 mEq each x 2 Hester catheter has been replaced Wound care Consult nephrology Give the patient IV albumin, 25 g, 5% every 8 hours followed by Lasix 80 mg IV every 12 hours. Check ammonia level She is a [facility] resident and her CODE STATUS is full. Will continue to follow. Condition is critical and will continue to follow make further recommendations based on her progress. Case was discussed at length with the at the bedside. This is a critical care evaluation. This evaluation was done more than 30 minutes. Case were discussed with the various consultants. Time with Patient: Greater than 30
--- NOTE | 2023-11-03 12:24 | P.PN ---
Subjective Patient seen in follow-up for HALINA. Discussed with at bedside, OK for HD tomorrow if needed. Per nursing given albumin this morning along with Lasix but no increase in urine output. Exam: General: NAD, sleeping Heart: +S1 and S2 Lungs: bilateral breath sounds are heard with decreased breath sounds at the bases Abdomen: soft obese, mild tenderness mid abdomen. Lower extremities: chronic skin changes, trace edema noted. Large right lower extremity ulceration noted, appears dry. Objective - Vital Signs Vital signs: Vital Signs Temp 96.4 F L 11/03/23 04:00 Pulse 82 11/03/23 07:00 Resp 26 H 11/03/23 07:00 BP 107/52 11/03/23 07:00 Pulse Ox 94 L 11/03/23 07:00 FiO2 Intake & Output 11/02/23 11/03/23 11/03/23 18:59 06:59 18:59 Intake Total 2342.805 4390.746 120 Output Total 15 0 0 Balance 3600.648 6649.746 120 Weight 97.1 kg 99.8 kg Intake: IV 1590 1660 120 .9 @ KVO 240 260 20 Albumin Human 25% 50 ml 100 In Empty Bag 1 bag @ 50 mls/hr IVPB Q1H [facility] Rx#: [id number] Cefepime 1 gm In Sodium 50 Chloride 0.9% 50 ml @ 12. 5 mls/hr IVPB Q12HR [facility] Rx#:[id number] Dextrose 5% in Water 1, 1200 1300 100 000 ml @ 100 mls/hr IV . [id number] [facility] with Sodium Bicarb (1 Meq/ml) 150 ml Rx#:[id number] Magnesium Sulfate-D5w Pmx 100 1 gm In Dextrose/Water 1 100ml.bag @ 100 mls/hr IVPB Q1H [facility] Rx#: [id number] Intake, IV Titration 258.000 558.746 Amount Norepinephrine 8 mg In 258.000 457.868 Sodium Chloride 0.9% 250 ml @ 0.03 MCG/KG/MIN 5. 266 mls/hr IV .Q24H [facility] Rx#:[id number] Vasopressin 60 unit In 100.878 Sodium Chloride 0.9% 150 ml @ 0.03 UNITS/MIN 4.59 mls/hr IV .Q24H [facility] Rx#: [id number] Output: Urine 15 0 0 Other: Voiding Method Indwelling Catheter Indwelling Catheter - Labs CBC & Chem 7: 11/03/23 04:00 11/03/23 04:00 Labs: Abnormal Lab Results - Last 24 Hours (Table) 11/02/23 11/02/23 11/03/23 Range/Units 10:10 11:53 03:25 WBC (3.8-10.6) k/uL RBC (3.80-5.40) m/uL Hgb (11.4-16.0) gm/dL Hct (34.0-46.0) % RDW (11.5-15.5) % Plt Count (150-450) k/uL Neutrophils # (1.3-7.7) k/uL Monocytes # (0-1.0) k/uL ABG pCO2 29 L (35-45) mmHg ABG pO2 76 L (83-108) mmHg ABG HCO3 17 L (21-25) mmol/L ABG Total CO2 18 L (19-24) mmol/L Chloride (98-107) mmol/L Carbon Dioxide (22-30) mmol/L BUN (7-17) mg/dL Creatinine (0.52-1.04) mg/dL Glucose (74-99) mg/dL POC Glucose (mg/dL) 114 H 122 H (70-110) mg/dL Calcium (8.4-10.2) mg/dL Magnesium (1.6-2.3) mg/dL Total Bilirubin (0.2-1.3) mg/dL AST (14-36) U/L ALT (4-34) U/L Total Protein (6.3-8.2) g/dL Albumin (3.5-5.0) g/dL 11/03/23 11/03/23 Range/Units 04:00 04:00 WBC 16.9 H (3.8-10.6) k/uL RBC 2.33 L (3.80-5.40) m/uL Hgb 7.1 L (11.4-16.0) gm/dL Hct 23.0 L (34.0-46.0) % RDW 24.6 H (11.5-15.5) % Plt Count 45 L (150-450) k/uL Neutrophils # 13.0 H (1.3-7.7) k/uL Monocytes # 1.1 H (0-1.0) k/uL ABG pCO2 (35-45) mmHg ABG pO2 (83-108) mmHg ABG HCO3 (21-25) mmol/L ABG Total CO2 (19-24) mmol/L Chloride 110 H (98-107) mmol/L Carbon Dioxide 13 L (22-30) mmol/L BUN 91 H (7-17) mg/dL Creatinine 3.62 H (0.52-1.04) mg/dL Glucose 113 H (74-99) mg/dL POC Glucose (mg/dL) (70-110) mg/dL Calcium 7.1 L (8.4-10.2) mg/dL Magnesium 1.4 L (1.6-2.3) mg/dL Total Bilirubin 5.5 H (0.2-1.3) mg/dL AST 84 H (14-36) U/L ALT 36 H (4-34) U/L Total Protein 4.9 L (6.3-8.2) g/dL Albumin 2.0 L (3.5-5.0) g/dL Microbiology - Last 24 Hours (Table) 11/01/23 00:45 Blood Culture - Preliminary Blood 11/01/23 00:30 Blood Culture - Preliminary Blood 11/01/23 00:44 Urine Culture - Preliminary Urine,Catheterized Group D Enterococcus Assessment and Plan Assessment: 1. Acute kidney injury, ATN, oliguric secondary to hypotension and possible underlying sepsis. Continue with IV hydration and pressors. No evidence of obstruction on CT of the abdomen. UA many hyaline casts, possible infection, not clean catch. 2. Recent episode of acute kidney injury during her last hospitalization about 2 weeks ago with serum creatinine ranging from 2.3 to 3 mg/dL. [place] to be mostly ATN associated with hemodynamic instability and anemia. 3. Hypotension and shock most likely septic. Large right lower extremity ulcer noted. Workup in progress. No obvious pneumonia noted. UA is pending. Maintained on IV fluids and pressors along with empiric antibiotics. 4. Metabolic acidosis, anion gap secondary to acute kidney injury and lactic acidosis. Documented anion gap is low due to hypoalbuminemia. 5. Recent hospitalization for GI bleed. Status post EGD which did not show any active bleeding. Hemoglobin was as low as 6.3. Current hemoglobin at 7.7 g/dL. Plan: Continue IV bicarb. Continue with empiric antibiotics. Repeat labs in a.m. Avoid any nephrotoxic agents. Doubt acute GN. If urine output and renal function does not improve may need HD tomorrow.
--- NOTE | 2023-11-03 14:55 | P.PN ---
Subjective Progress Note Date: 11/03/23 Principal diagnosis: Reason for follow-up is sepsis Patient is a 78-year-old female with a past medical history significant for heart failure hypertension osteoarthritis lower extremity cellulitis recently admitted to this facility and treated for possible UTI patient was stabilized and discharged to the local snf patient has been brought back to the ER after midnight for evaluation of mental status changes and hypotension as well as hypothermia requiring admission to the ICU. On today's visit that is 11/03/2023,the patient did have stabilization of her body temperature currently 96.6 degrees following right, patient is on 2 L nasal cannula supplemental oxygen patient is lethargic cannot provide any history patient requiring about the same amount of pressor as of yesterday did not have any urine output. Patient white count is 16.9 creatinine 3.62 urine growing group D Enterococcus blood cultures so far pending Objective - Vital Signs Vital signs: Vital Signs Temp 96.8 F L 11/03/23 08:00 Pulse 86 11/03/23 11:15 Resp 31 H 11/03/23 11:15 BP 112/72 11/03/23 11:15 Pulse Ox 92 L 11/03/23 11:15 FiO2 Intake & Output 11/02/23 11/03/23 11/03/23 18:59 06:59 18:59 Intake Total 9620.020 5108.746 580 Output Total 15 0 0 Balance 2041.276 7104.746 580 Weight 97.1 kg 99.8 kg Intake: IV 1590 1660 580 .9 @ KVO 240 260 80 Albumin Human 25% 50 ml 100 50 In Empty Bag 1 bag @ 50 mls/hr IVPB Q1H [facility] Rx#: [id number] Cefepime 1 gm In Sodium 50 50 Chloride 0.9% 50 ml @ 12. 5 mls/hr IVPB Q12HR [facility] Rx#:[id number] Dextrose 5% in Water 1, 1200 1300 400 000 ml @ 100 mls/hr IV . [id number] [facility] with Sodium Bicarb (1 Meq/ml) 150 ml Rx#:[id number] Magnesium Sulfate-D5w Pmx 100 1 gm In Dextrose/Water 1 100ml.bag @ 100 mls/hr IVPB Q1H [facility] Rx#: [id number] Intake, IV Titration 258.000 558.746 Amount Norepinephrine 8 mg In 258.000 457.868 Sodium Chloride 0.9% 250 ml @ 0.03 MCG/KG/MIN 5. 266 mls/hr IV .Q24H [facility] Rx#:[id number] Vasopressin 60 unit In 100.878 Sodium Chloride 0.9% 150 ml @ 0.03 UNITS/MIN 4.59 mls/hr IV .Q24H [facility] Rx#: [id number] Output: Urine 15 0 0 Other: Voiding Method Indwelling Catheter Indwelling Catheter - Exam GENERAL DESCRIPTION: An elderly female lying in bed in no distress RESPIRATORY SYSTEM: Unlabored breathing , decreased breath sounds at bases HEART: S1 S2 regular rate and rhythm , ABDOMEN: Soft , no tenderness EXTREMITIES: Right leg wound is currently dressed nursing staff mention overall less black tissue and no surrounding redness - Labs CBC & Chem 7: 11/03/23 04:00 11/03/23 04:00 Labs: Abnormal Lab Results - Last 24 Hours (Table) 11/02/23 11/03/23 11/03/23 Range/Units 11:53 03:25 04:00 WBC 16.9 H (3.8-10.6) k/uL RBC 2.33 L (3.80-5.40) m/uL Hgb 7.1 L (11.4-16.0) gm/dL Hct 23.0 L (34.0-46.0) % RDW 24.6 H (11.5-15.5) % Plt Count 45 L (150-450) k/uL Neutrophils # 13.0 H (1.3-7.7) k/uL Monocytes # 1.1 H (0-1.0) k/uL Chloride (98-107) mmol/L Carbon Dioxide (22-30) mmol/L BUN (7-17) mg/dL Creatinine (0.52-1.04) mg/dL Glucose (74-99) mg/dL POC Glucose (mg/dL) 114 H 122 H (70-110) mg/dL Calcium (8.4-10.2) mg/dL Magnesium (1.6-2.3) mg/dL Total Bilirubin (0.2-1.3) mg/dL AST (14-36) U/L ALT (4-34) U/L Total Protein (6.3-8.2) g/dL Albumin (3.5-5.0) g/dL 11/03/23 Range/Units 04:00 WBC (3.8-10.6) k/uL RBC (3.80-5.40) m/uL Hgb (11.4-16.0) gm/dL Hct (34.0-46.0) % RDW (11.5-15.5) % Plt Count (150-450) k/uL Neutrophils # (1.3-7.7) k/uL Monocytes # (0-1.0) k/uL Chloride 110 H (98-107) mmol/L Carbon Dioxide 13 L (22-30) mmol/L BUN 91 H (7-17) mg/dL Creatinine 3.62 H (0.52-1.04) mg/dL Glucose 113 H (74-99) mg/dL POC Glucose (mg/dL) (70-110) mg/dL Calcium 7.1 L (8.4-10.2) mg/dL Magnesium 1.4 L (1.6-2.3) mg/dL Total Bilirubin 5.5 H (0.2-1.3) mg/dL AST 84 H (14-36) U/L ALT 36 H (4-34) U/L Total Protein 4.9 L (6.3-8.2) g/dL Albumin 2.0 L (3.5-5.0) g/dL Microbiology - Last 24 Hours (Table) 11/01/23 00:45 Blood Culture - Preliminary Blood 11/01/23 00:30 Blood Culture - Preliminary Blood 11/01/23 00:44 Urine Culture - Preliminary Urine,Catheterized Group D Enterococcus Assessment and Plan (1) Sepsis Current Visit: No Status: Acute Code(s): A41.9 - SEPSIS, UNSPECIFIED ORGANISM SNOMED Code(s): 82927508 (2) UTI (urinary tract infection) Current Visit: No Status: Acute Code(s): N39.0 - URINARY TRACT INFECTION, SITE NOT SPECIFIED SNOMED Code(s): 59491802 Plan: 1patient was in the hospital with sepsis in this patient who did have hypoth ermia hypotension requiring pressor support with a source of sepsis could be UTI versus right lower extremity wound and cellulitis and the patient chest x-ray did not show any evidence of pneumonia CT abdominal pelvis did show some ascites but did not mention any colitis or abscess 2-patient with a penicillin allergy that will limit the number of antibiotics safe to use 3-renal insufficiency high risk of nephrotoxicity 4-blood culture currently pending urine is growing Enterococcus with sensitiv ities pending 5-patient to continue with cefepime and daptomycin cultures currently pending possible dialysis care discussed with the Dictation was produced using [employer] dictation software. please excuse any grammatical, word or spelling errors. Time with Patient: Less than 30
[2023-11-03 16:26] LABS: Glucose,Whole Blood 149 mg/dL (70-110)
--- NOTE | 2023-11-03 17:35 | P.CRDCN ---
History of Present Illness Consult date: 11/03/23 History of present illness: HISTORY OF PRESENTING ILLNESS Patient is a 78-year-old female with past medical history of cardiomyopathy with recovered EF with a EF of 50 to 55% based of echo from July 2023. She has history of hypertension, type 2 diabetes, GERD admitted to the hospital because of altered mental status. Previously she was hospitalized for GI bleeding and acute on chronic anemia. On admission she was noticed to have sepsis with hypothermia and hypotension with concerns of UTI. Patient was placed on daptomycin. Patient has been anuric for last 2 days and is being planned for possible hemodialysis to be initiated tomorrow. Last night patient went into wide-complex tachycardia which appears to be supraventricular tachycardia with aberrancy. Differential includes AVNRT versus atrial tachycardia versus atrial fibrillation. Patient has a prior history of paroxysmal atrial fibrillation. Currently patient is in sinus rhythm with first-degree AV block and left bundle branch block which appears to be chronic for her. Patient is very weak, drowsy. She is not wanting to hold a conversation. She appears edematous. She is currently managed on norepinephrine and vasopressin. REVIEW OF SYSTEMS 14 point review of system is negative except what is mentioned above in HPI. PHYSICAL EXAMINATION Vital signs reviewed. Head: Normocephalic. Eyes: Sclerae nonicteric. Neck: elevated jugular venous distention. Lungs: No respiratory effort, diminished breath sounds bilaterally basally Heart: Regular rate and rhythm, S1-S2, systolic murmur audible Abdomen: Abdomen is distended but nontender Extremities: 2-3+ pitting edema bilateral lower and upper extremity. Neuro: Drowsy but arousable with verbal stimuli. Not following commands.. Detailed neuro exam was not performed. ASSESSMENT Wide-complex tachycardia, likely suprapubic tachycardia with evidence he History of left bundle branch block and. AV block Paroxysmal atrial fibrillation Prior history of cardiomyopathy with recovered EF of 50% based of echo from July 2023 Septic shock Suspected UTI and cellulitis of lower extremities Anuric ATN PLAN Obtain a limited echocardiogram to assess LVEF Stop anticoagulation in view of anemia and anticipated dialysis catheter placement IV pressors as needed, titrate down vasopressin before norepinephrine Prognosis overall very guarded. Poor prognosis was discussed with the family. Johann Poole MD, FACC, RPVI Thank you for allowing [facility] to participate in this patient's care. Feel free to reach out in case of any followup questions. 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 History of Any Multi-Drug Resistant Organisms: None Reported Past Surgical History: Cholecystectomy, Heart Catheterization Additional Past Surgical History / Comment(s): EYE SURGERY DUE TO INJURY, EGD, COLONOSCOPY, BONE MARROW BIOPSY, cataracts, muscle biopsy, Past Anesthesia/Blood Transfusion Reactions: No Reported Reaction Past Psychological History: No Psychological Hx Reported Smoking Status: Never smoker Past Alcohol Use History: Occasional Past Drug Use History: None Reported - Past Family History Sister(s) Family Medical History: Cancer Additional Family Medical History / Comment(s): LEUKEMIA- at age 42 Brother(s) Family Medical History: Cancer Additional Family Medical History / Comment(s): with unknown type CA at age 60s Medications and Allergies Home Medications Medication Instructions Recorded Confirmed Type Albuterol Sulfate [Ventolin HFA] 2 puff INHALATION RT-Q4H PRN 08/03/23 11/01/23 History Acetaminophen Tab [Tylenol] 650 mg PO Q6HR PRN 10/19/23 11/01/23 History Docusate [Colace] 100 mg PO BID 10/19/23 11/01/23 History Metoprolol Tartrate [Lopressor] 50 mg PO Q8H 10/19/23 11/01/23 History Albuterol Nebulized [Ventolin 2.5 mg INHALATION RT-Q4H PRN ml 10/25/23 11/01/23 Rx Nebulized] Potassium Chloride ER [K-Dur 20] 20 meq PO DAILY tab 10/25/23 11/01/23 Rx Sodium Bicarbonate Tab 650 mg PO BID tab 10/25/23 11/01/23 Rx Dakins (1/2 Strength) 1 applic TOPICAL BID 11/01/23 11/01/23 History Dakins (1/2 Strength) 1 applic TOPICAL DAILY PRN 11/01/23 11/01/23 History Darbepoetin Luis Alberto [Aranesp] 40 mcg SQ WE 11/01/23 11/01/23 History Furosemide [Lasix] 40 mg PO DIRECTED 11/01/23 11/01/23 History Lactose-Reduced Food [Ensure Plus] 237 ml PO QID 11/01/23 11/01/23 History Midodrine [ProAmatine] 5 mg PO TID 11/01/23 11/01/23 History Allergies Allergy/AdvReac Type Severity Reaction Status Date / Time omeprazole [From Prilosec] Allergy Unknown Rash/Hives, Verified 10/19/23 09:55 TONGUE SWELLLING omeprazole magnesium Allergy Unknown Rash/Hives, Verified 10/19/23 09:55 [From Prilosec] TONGUE SWELLLING Penicillins Allergy Unknown Rash/Hives/ Verified 10/19/23 09:55 Itching amlodipine Allergy fide pedal Verified 10/19/23 09:55 edema, loss voice carvedilol Allergy shortness Verified 10/19/23 09:55 of breath lisinopril Allergy Unknown Verified 10/19/23 09:55 Physical Exam Vitals: Vital Signs Temp Pulse Resp BP Pulse Ox 11/03/23 15:30 86 29 H 123/50 94 L 11/03/23 15:29 86 11/03/23 15:20 92 11/03/23 15:17 94 L 11/03/23 15:15 92 28 H 115/61 94 L 11/03/23 15:00 85 30 H 111/60 94 L 11/03/23 14:45 89 29 H 116/52 94 L 11/03/23 14:30 87 27 H 116/57 94 L 11/03/23 14:15 87 26 H 96/46 94 L 11/03/23 14:00 77 24 114/47 94 L 11/03/23 13:45 80 28 H 100/45 95 11/03/23 13:30 74 19 102/39 95 11/03/23 13:15 73 21 103/54 95 11/03/23 13:00 76 25 H 92/47 97 11/03/23 12:45 71 19 91/44 96 11/03/23 12:30 70 18 102/42 96 11/03/23 12:15 74 23 107/48 94 L 11/03/23 12:00 96.6 F L 73 18 110/55 97 11/03/23 11:45 82 20 113/55 95 11/03/23 11:30 79 22 116/51 94 L 11/03/23 11:15 86 31 H 112/72 92 L 11/03/23 11:00 86 28 H 114/73 94 L 11/03/23 10:45 82 29 H 103/48 94 L 11/03/23 10:30 78 28 H 105/48 94 L 11/03/23 10:15 77 27 H 102/50 95 11/03/23 10:00 81 25 H 109/41 94 L 11/03/23 09:45 80 27 H 105/46 94 L 11/03/23 09:30 79 26 H 109/51 95 11/03/23 09:15 75 19 106/43 95 11/03/23 09:00 80 24 106/46 95 11/03/23 08:45 80 23 103/50 94 L 11/03/23 08:30 82 27 H 103/50 94 L 11/03/23 08:15 134 H 23 97/56 94 L 11/03/23 08:00 96.8 F L 79 25 H 103/51 95 11/03/23 07:45 80 27 H 98/52 94 L 11/03/23 07:30 81 27 H 107/47 94 L 11/03/23 07:15 81 28 H 106/51 94 L 11/03/23 07:00 82 26 H 107/52 94 L 11/03/23 06:45 81 27 H 100/46 94 L 11/03/23 06:30 81 30 H 102/45 94 L 11/03/23 06:15 79 29 H 100/41 94 L 11/03/23 06:00 82 27 H 102/50 95 11/03/23 05:45 75 28 H 95/44 94 L 11/03/23 05:30 84 30 H 103/53 95 11/03/23 05:15 78 27 H 106/55 94 L 11/03/23 05:00 97 31 H 113/62 94 L 11/03/23 04:45 86 25 H 112/56 93 L 11/03/23 04:30 146 H 29 H 112/67 93 L 11/03/23 04:15 149 H 33 H 113/65 93 L 11/03/23 04:00 96.4 F L 149 H 31 H 117/62 92 L 11/03/23 03:45 151 H 32 H 112/63 92 L 11/03/23 03:30 163 H 31 H 105/66 93 L 11/03/23 03:15 161 H 29 H 105/68 92 L 11/03/23 03:00 90 21 116/48 94 L 11/03/23 02:45 96 26 H 120/52 95 11/03/23 02:30 92 24 118/42 94 L 11/03/23 02:15 89 26 H 106/46 95 11/03/23 02:00 77 21 108/46 95 11/03/23 01:45 75 20 100/39 96 11/03/23 01:30 81 18 91/46 97 11/03/23 01:15 78 18 111/46 96 11/03/23 01:00 87 26 H 113/50 95 11/03/23 00:45 89 25 H 114/47 94 L 11/03/23 00:30 86 27 H 115/53 95 11/03/23 00:15 79 19 115/51 97 11/03/23 00:04 88 24 115/51 95 11/03/23 00:00 96.1 F L 88 27 H 120/62 95 11/02/23 23:45 94 31 H 113/46 94 L 11/02/23 23:30 85 27 H 110/53 94 L 11/02/23 23:15 89 27 H 115/46 94 L 11/02/23 23:00 85 22 116/52 95 11/02/23 22:45 90 31 H 112/41 94 L 11/02/23 22:30 89 27 H 116/45 95 11/02/23 22:15 88 29 H 114/44 94 L 11/02/23 22:00 89 31 H 112/45 94 L 11/02/23 21:45 87 25 H 110/50 94 L 11/02/23 21:30 88 31 H 111/46 95 11/02/23 21:15 87 30 H 112/52 94 L 11/02/23 21:00 91 34 H 114/43 96 11/02/23 20:50 89 11/02/23 20:45 92 31 H 112/44 97 11/02/23 20:36 88 11/02/23 20:30 89 31 H 103/45 94 L 11/02/23 20:15 89 30 H 109/43 94 L 11/02/23 20:00 97.3 F L 81 31 H 107/42 93 L 11/02/23 19:45 91 31 H 105/44 94 L 11/02/23 19:30 93 29 H 109/50 93 L 11/02/23 19:15 91 31 H 105/45 93 L 11/02/23 19:00 90 30 H 108/51 93 L 11/02/23 18:45 90 31 H 105/45 93 L 11/02/23 18:30 87 24 100/34 93 L 11/02/23 18:15 87 26 H 98/43 93 L 11/02/23 18:00 85 25 H 103/44 93 L 11/02/23 17:45 83 26 H 102/38 94 L Intake and Output 11/03/23 11/03/23 11/03/23 06:59 14:59 22:59 Intake Total 0754.520 7197.93 120 Output Total 0 35 0 Balance 9861.013 9488.93 120 Intake: IV 1180 990 120 .9 @ KVO 180 140 20 Albumin Human 25% 50 ml 50 In Empty Bag 1 bag @ 50 mls/hr IVPB Q1H [facility] Rx#: [id number] Cefepime 1 gm In Sodium 100 Chloride 0.9% 50 ml @ 12. 5 mls/hr IVPB Q12HR [facility] Rx#:[id number] Dextrose 5% in Water 1, 900 700 100 000 ml @ 100 mls/hr IV . [id number] MEÑO with Sodium Bicarb (1 Meq/ml) 150 ml Rx#:[id number] Magnesium Sulfate-D5w Pmx 100 1 gm In Dextrose/Water 1 100ml.bag @ 100 mls/hr IVPB Q1H [facility] Rx#: [id number] Intake, IV Titration 241.513 245.93 Amount Norepinephrine 8 mg In 241.513 245.93 Sodium Chloride 0.9% 250 ml @ 0.03 MCG/KG/MIN 5. 266 mls/hr IV .Q24H [facility] Rx#:[id number] Output: Urine 0 35 0 Other: Voiding Method Indwelling Catheter Indwelling Catheter Weight 99.8 kg Results 11/03/23 04:00 11/03/23 04:00 Cardiac Enzymes 11/03/23 Range/Units 04:00 AST 84 H (14-36) U/L CBC 11/03/23 Range/Units 04:00 WBC 16.9 H (3.8-10.6) k/uL RBC 2.33 L (3.80-5.40) m/uL Hgb 7.1 L (11.4-16.0) gm/dL Hct 23.0 L (34.0-46.0) % Plt Count 45 L (150-450) k/uL Comprehensive Metabolic Panel 11/03/23 Range/Units 04:00 Sodium 137 (137-145) mmol/L Potassium 4.1 (3.5-5.1) mmol/L Chloride 110 H (98-107) mmol/L Carbon Dioxide 13 L (22-30) mmol/L BUN 91 H (7-17) mg/dL Creatinine 3.62 H (0.52-1.04) mg/dL Glucose 113 H (74-99) mg/dL Calcium 7.1 L (8.4-10.2) mg/dL AST 84 H (14-36) U/L ALT 36 H (4-34) U/L Alkaline Phosphatase 126 (38-126) U/L Total Protein 4.9 L (6.3-8.2) g/dL Albumin 2.0 L (3.5-5.0) g/dL Current Medications Generic Name Dose Route Start Last Admin Trade Name Freq PRN Reason Stop Dose Admin Albuterol Sulfate 2.5 mg 11/01/23 07:32 11/03/23 15:20 Albuterol Nebulized 2.5 Mg/3 Ml INHALATION 2.5 mg RT-Q4H PRN Administration Shortness Of Breath Collagenase 1 applic 11/01/23 10:15 11/03/23 11:31 Collagenase 250 Unit/Gm Ointment 30 Gm Tube TOPICAL 1 applic DAILY MEÑO Administration Protocol Famotidine 20 mg 11/01/23 09:00 11/03/23 09:38 Famotidine 20 Mg/2 Ml Vial IV 20 mg DAILY MEÑO Administration Furosemide 80 mg 11/03/23 09:15 11/03/23 11:30 Furosemide 10 Mg/Ml 10 Ml Vial IV 80 mg BID MEÑO Administration Sodium Bicarbonate 150 ml/ 1,150 mls @ 100 mls/hr 11/01/23 06:30 11/03/23 09:39 Dextrose/Water IV Not Given .[id number] MEÑO Norepinephrine Bitartrate 8 mg 258 mls @ 5.266 mls/hr 11/01/23 09:30 11/03/23 14:02 / Sodium Chloride IV 0.18 mcg/kg/min .Q24H MEÑO 31.597 mls/hr Administration Protocol 0.03 MCG/KG/MIN Daptomycin 300 mg/ Sodium 50 mls @ 100 mls/hr 11/01/23 11:00 11/03/23 14:03 Chloride IVPB 100 mls/hr Q48H MEÑO Administration Protocol Cefepime HCl 1 gm/ Sodium 50 mls @ 12.5 mls/hr 11/01/23 21:00 11/03/23 09:45 Chloride IVPB 12.5 mls/hr Q12HR [facility] Administration Vasopressin 60 unit/ Sodium 153 mls @ 4.59 mls/hr 11/02/23 06:00 11/02/23 22:25 Chloride IV 0.04 units/min .Q24H [facility] 6.12 mls/hr Administration Protocol 0.03 UNITS/MIN Amiodarone HCl 450 mg/ 250 mls @ 16.667 mls/hr 11/03/23 10:00 11/03/23 10:31 Dextrose/Water IV 11/04/23 03:59 0.5 mg/min .Q15H [facility] 16.667 mls/hr Administration Protocol 0.5 MG/MIN Albumin Human 50 ml/ IV 50 mls @ 50 mls/hr 11/03/23 18:00 Solution IVPB 11/03/23 19:59 Q1H ME[facility] Albumin Human 50 ml/ IV 50 mls @ 50 mls/hr 11/04/23 02:00 Solution IVPB 11/04/23 03:59 Q1H [facility] Miscellaneous Information 1 each 11/03/23 05:33 Magnesium Replacement Protocol 1 Each Misc MISCELLANE DAILY PRN Per Protocol Protocol Ondansetron HCl 4 mg 11/02/23 04:49 11/02/23 04:55 Ondansetron 4 Mg/2 Ml Vial IVP 4 mg Q6HR PRN Administration Nausea And Vomiting Intake and Output 11/03/23 11/03/23 11/03/23 06:59 14:59 22:59 Intake Total 1400.076 2340.93 120 Output Total 0 35 0 Balance 9661.910 0139.93 120 Intake: IV 1180 990 120 .9 @ KVO 180 140 20 Albumin Human 25% 50 ml 50 In Empty Bag 1 bag @ 50 mls/hr IVPB Q1H [facility] Rx#: [id number] Cefepime 1 gm In Sodium 100 Chloride 0.9% 50 ml @ 12. 5 mls/hr IVPB Q12HR [facility] Rx#:[id number] Dextrose 5% in Water 1, 900 700 100 000 ml @ 100 mls/hr IV . [id number] MEÑ[facility] with Sodium Bicarb (1 Meq/ml) 150 ml Rx#:[id number] Magnesium Sulfate-D5w Pmx 100 1 gm In Dextrose/Water 1 100ml.bag @ 100 mls/hr IVPB Q1H [facility] Rx#: [id number] Intake, IV Titration 241.513 245.93 Amount Norepinephrine 8 mg In 241.513 245.93 Sodium Chloride 0.9% 250 ml @ 0.03 MCG/KG/MIN 5. 266 mls/hr IV .Q24H [facility] Rx#:[id number] Output: Urine 0 35 0 Other: Voiding Method Indwelling Catheter Indwelling Catheter Weight 99.8 kg 11/03/23 04:00 11/03/23 04:00
[2023-11-03 18:17] LABS: Glucose,Whole Blood 128 mg/dL (70-110)
--- NOTE | 2023-11-03 20:52 | P.PN ---
Subjective Progress Note Date: 11/02/23 Patient is a 78-year-old female with a past medical history of hypertension, atrial fibrillation not on anticoagulation due to recent GI bleed, hypertension, osteoarthritis, HFpEF, previous history of gastric perforation, inclusion body myositis and chronic right lower extremity wound. Patient also has right ear hearing loss. Patient was recently discharged from the hospital on 10/25/2023 to [facility]. She was admitted to hospital due to acute upper GI bleed with dark stools and is status post EGD showed no active bleeding. Patient was sent to ER due to altered mental status and also hypotensive at the facility. Patient's noticed earlier in the day that she did not seem like her usual self. On admission patient was hypotensive with blood pressure 84/47 pulse is 58 respiration 22 and pulse ox 97% on room air. Patient is able to open her but could not communicate. Eyes and tracks but unable to communi mio. On admission chest x-ray showed cardiomegaly with mild vascular congestion. CT head showed no acute hemorrhage, hydrocephalus or mass effect. EKG showed sinus bradycardia with marked sinus arrhythmia CT of the abdominal pelvis showed features of anasarca. Heterogenicity through out. Correlate with ultrasound. Small amount of ascites as well as bilateral pleural effusions and compressive atelectasis. Foot x-ray showed there is no acute fracture or dislocation. Patient was hypotensive despite fluid boluses. Patient was also hypothermic and bradycardic. She was transferred to MICU for pressor support. Laboratory data showed WBC 8.4 hemoglobin 7.7 and platelets 50 baseline hemoglobin level around 8.0 INR 2.1 Sodium 136 potassium 4.4 chloride 112, BUN 100 and creatinine 3.39, lactic acid 2.6 Magnesium 1.8 total bili 3.0 AST 66 alk phos 149 troponin 0.019 and proBNP 5970 and Pro-Alvin 0.16 Urinalysis showed turbid with 2+ protein and large leukocyte esterase with eleva bobo RBCs and WBCs. 11/02/2023 Patient is in the MICU. Mentation remains the same and patient is still confused. Able to open her eyes. Currently on 2 3 L oxygen via nasal cannula. Patient has only minimal urine output. Continued on bicarb drip (per hour. Pressor support with vasopressin and norepinephrine. Patient is being continued on antibiotics daptomycin and cefepime IV. Urine culture showed group D Enterococcus. Chest x-ray showed unchanged cardiopulmonary status, correlate for CHF/fluid overload. Superimposed infection should be excluded clinically. WBC 16.8 hemoglobin 7.5 and platelets 53 sodium 137 potassium 4.3 chloride 103 bicarb is 14 BUN 93 creatinine 3.38 and blood sugar 89 calcium 7.8 total bili 4.0 AST 87 ALT 41 alk phos 139 and albumin 1.8 Current medications reviewed. Objective - Vital Signs Vital signs: Vital Signs Temp 97.3 F L 11/02/23 20:00 Pulse 89 11/02/23 20:50 Resp 30 H 11/02/23 20:15 BP 109/43 11/02/23 20:15 Pulse Ox 94 L 11/02/23 20:15 FiO2 Intake & Output 11/02/23 11/02/23 11/03/23 06:59 18:59 06:59 Intake Total 8603.846 9702.000 240 Output Total 0 15 0 Balance 7080.459 7083.000 240 Weight 97.1 kg 97.1 kg Intake: IV 1370 1590 240 .9 @ KVO 220 240 40 Albumin Human 25% 50 ml 100 In Empty Bag 1 bag @ 50 mls/hr IVPB Q1H [facility] Rx#: [id number] Cefepime 1 gm In Sodium 50 50 Chloride 0.9% 50 ml @ 12. 5 mls/hr IVPB Q12HR [facility] Rx#:[id number] Dextrose 5% in Water 1, 1100 1200 200 000 ml @ 100 mls/hr IV . [id number] MEÑ[facility] with Sodium Bicarb (1 Meq/ml) 150 ml Rx#:[id number] Intake, IV Titration 514.314 258.000 Amount Norepinephrine 8 mg In 513.166 258.000 Sodium Chloride 0.9% 250 ml @ 0.03 MCG/KG/MIN 5. 266 mls/hr IV .Q24H [facility] Rx#:[id number] Vasopressin 60 unit In 1.148 Sodium Chloride 0.9% 150 ml @ 0.03 UNITS/MIN 4.59 mls/hr IV .Q24H [facility] Rx#: [id number] Output: Urine 0 15 0 Other: Voiding Method Indwelling Catheter Indwelling Catheter Indwelling Catheter # Emeses 1 - Exam PHYSICAL EXAMINATION: Patient is lying in the bed. Patient is able to open her eyes and track but unable to communicate. HEENT: Normocephalic. Neck is supple. Pupils reactive. Nostrils clear. Oral cavity is moist. Neck reveals no JVD, carotid bruits, or thyromegaly. CHEST EXAMINATION: Trachea is central. Symmetrical expansion. Bibasilar diminished sounds otherwise lung ferguson clear to auscultation and percussion. CARDIAC: Normal S1, S2 with no gallops. No murmurs ABDOMEN: Soft. Bowel sounds normal. No organomegaly. No abdominal bruits. Extremities: Bilateral 2+ edema with right lower extremity wound on the lateral side. No purulent discharge noted.. No clubbing or cyanosis Neurologically patient is awake alert and oriented x 0. Able to move her extremities while in bed. No gross focal deficits noted Skin: No rash. Skin lesions as above. Psychiatric: Could not be assessed. Musculoskeletal: No joint swelling or deformity. - Labs CBC & Chem 7: 11/03/23 04:00 11/03/23 04:00 Labs: Abnormal Lab Results - Last 24 Hours (Table) 11/02/23 11/02/23 11/02/23 Range/Units 03:11 03:11 10:10 WBC 16.8 H (3.8-10.6) k/uL RBC 2.44 L (3.80-5.40) m/uL Hgb 7.5 L (11.4-16.0) gm/dL Hct 23.5 L (34.0-46.0) % RDW 23.7 H (11.5-15.5) % Plt Count 53 L (150-450) k/uL Neutrophils # (Manual) 12.70 H (1.3-7.7) k/uL Monocytes # (Manual) 1.51 H (0-1.0) k/uL Eosinophils # (Manual) 1.51 H (0-0.7) k/uL Metamyelocytes # (Man) 0.17 H (0) k/uL Nucleated RBCs 11 H (0-0) /100 WBC ABG pCO2 29 L (35-45) mmHg ABG pO2 76 L (83-108) mmHg ABG HCO3 17 L (21-25) mmol/L ABG Total CO2 18 L (19-24) mmol/L Chloride 113 H (98-107) mmol/L Carbon Dioxide 14 L (22-30) mmol/L BUN 93 H (7-17) mg/dL Creatinine 3.38 H (0.52-1.04) mg/dL POC Glucose (mg/dL) (70-110) mg/dL Calcium 7.8 L (8.4-10.2) mg/dL Total Bilirubin 4.0 H (0.2-1.3) mg/dL AST 87 H (14-36) U/L ALT 41 H (4-34) U/L Alkaline Phosphatase 139 H (38-126) U/L Total Protein 4.7 L (6.3-8.2) g/dL Albumin 1.8 L (3.5-5.0) g/dL 11/02/23 Range/Units 11:53 WBC (3.8-10.6) k/uL RBC (3.80-5.40) m/uL Hgb (11.4-16.0) gm/dL Hct (34.0-46.0) % RDW (11.5-15.5) % Plt Count (150-450) k/uL Neutrophils # (Manual) (1.3-7.7) k/uL Monocytes # (Manual) (0-1.0) k/uL Eosinophils # (Manual) (0-0.7) k/uL Metamyelocytes # (Man) (0) k/uL Nucleated RBCs (0-0) /100 WBC ABG pCO2 (35-45) mmHg ABG pO2 (83-108) mmHg ABG HCO3 (21-25) mmol/L ABG Total CO2 (19-24) mmol/L Chloride (98-107) mmol/L Carbon Dioxide (22-30) mmol/L BUN (7-17) mg/dL Creatinine (0.52-1.04) mg/dL POC Glucose (mg/dL) 114 H (70-110) mg/dL Calcium (8.4-10.2) mg/dL Total Bilirubin (0.2-1.3) mg/dL AST (14-36) U/L ALT (4-34) U/L Alkaline Phosphatase (38-126) U/L Total Protein (6.3-8.2) g/dL Albumin (3.5-5.0) g/dL Microbiology - Last 24 Hours (Table) 11/01/23 00:44 Urine Culture - Preliminary Urine,Catheterized Group D Enterococcus 11/01/23 00:45 Blood Culture - Preliminary Blood 11/01/23 00:30 Blood Culture - Preliminary Blood Assessment and Plan Assessment: Acute hypotension and possible sepsis/septic shock due to UTI and right lower extremity wound with cellulitis Group D Enterococcus urinary tract infection Altered mental status with metabolic encephalopathy and infection Acute on chronic renal disease due to ATN secondary to hypotension. Creatinine 3.39 on admission baseline creatinine level around 3. Recent history of GI bleed status post EGD showed no active bleeding. Patient was discharged to [facility] on 10/25/2023 baseline hemoglobin around 8.0 CKD stage IIIb Chronic right lower extremity wound with history of debridement Chronic CHF with preserved ejection fraction Paroxysmal atrial fibrillation not on anticoagulation due to recent GI bleed History of gastric perforation with diagnostic laparoscopic repair on 05/26/2023 History of inclusion body myositis Obesity BMI 32.3 Bronchial asthma not in exacerbation Medical debility and bedridden fpc Chronic thrombocytopenia with platelet count 50 K Coagulopathy with INR 2.1 on admission Transaminitis Right ear hearing loss DVT prophylaxis patient is anticoagulated Plan: Patient is in the MICU. Patient will be continued on IV hydration currently bicarb drip. Continue broad-spectrum antibiotics daptomycin and cefepime. Urine culture showed group D Enterococcus. Blood pressure medications Lasix and metoprolol on hold. Continue to monitor H&H and continue with PPI CT of the abdomen pelvis showed small amount of ascites and bilateral pleural effusions. Patient has very minimal urine output. Continue to monitor renal function and follow-up closely. Pulmonary and nephrology is on board. Prognosis is guarded at this time due to multimedical problems and comorbid conditions Discussed with her at bedside in detail. Patient's would like her to be in full code. Time with Patient: Greater than 30
--- NOTE | 2023-11-03 21:14 | P.PN ---
Subjective Progress Note Date: 11/03/23 Patient is a 78-year-old female with a past medical history of hypertension, atrial fibrillation not on anticoagulation due to recent GI bleed, hypertension, osteoarthritis, HFpEF, previous history of gastric perforation, inclusion body myositis and chronic right lower extremity wound. Patient also has right ear hearing loss. Patient was recently discharged from the hospital on 10/25/2023 to [facility]. She was admitted to hospital due to acute upper GI bleed with dark stools and is status post EGD showed no active bleeding. Patient was sent to ER due to altered mental status and also hypotensive at the facility. Patient's noticed earlier in the day that she did not seem like her usual self. On admission patient was hypotensive with blood pressure 84/47 pulse is 58 respiration 22 and pulse ox 97% on room air. Patient is able to open her but could not communicate. Eyes and tracks but unable to communi mio. On admission chest x-ray showed cardiomegaly with mild vascular congestion. CT head showed no acute hemorrhage, hydrocephalus or mass effect. EKG showed sinus bradycardia with marked sinus arrhythmia CT of the abdominal pelvis showed features of anasarca. Heterogenicity through out. Correlate with ultrasound. Small amount of ascites as well as bilateral pleural effusions and compressive atelectasis. Foot x-ray showed there is no acute fracture or dislocation. Patient was hypotensive despite fluid boluses. Patient was also hypothermic and bradycardic. She was transferred to MICU for pressor support. Laboratory data showed WBC 8.4 hemoglobin 7.7 and platelets 50 baseline hemoglobin level around 8.0 INR 2.1 Sodium 136 potassium 4.4 chloride 112, BUN 100 and creatinine 3.39, lactic acid 2.6 Magnesium 1.8 total bili 3.0 AST 66 alk phos 149 troponin 0.019 and proBNP 5970 and Pro-Alvin 0.16 Urinalysis showed turbid with 2+ protein and large leukocyte esterase with eleva bobo RBCs and WBCs. 11/02/2023 Patient is in the MICU. Mentation remains the same and patient is still confused. Able to open her eyes. Currently on 2 3 L oxygen via nasal cannula. Patient has only minimal urine output. Continued on bicarb drip (per hour. Pressor support with vasopressin and norepinephrine. Patient is being continued on antibiotics daptomycin and cefepime IV. Urine culture showed group D Enterococcus. Chest x-ray showed unchanged cardiopulmonary status, correlate for CHF/fluid overload. Superimposed infection should be excluded clinically. WBC 16.8 hemoglobin 7.5 and platelets 53 sodium 137 potassium 4.3 chloride 103 bicarb is 14 BUN 93 creatinine 3.38 and blood sugar 89 calcium 7.8 total bili 4.0 AST 87 ALT 41 alk phos 139 and albumin 1.8 11/03/2023 Patient is in the MICU. Mental status remains the same. Patient is able to turn her head with upper stimuli. Patient is also hypothermic and is on beta- breanne. Currently requiring 2 L oxygen via nasal cannula. Otherwise patient remains on bicarb drip and is also pressor support. Patient admitted to the near with wide-complex tachycardia likely supra ventricular tachycardia. Patient was started on amiodarone drip. Remains on antibiotics with cefepime and daptomycin. Patient was also started on Lasix 80 mg IV twice daily Patient has very minimal urine output. Nephrology recommending replacement therapy. Pulmonary, cardiology and ID is on board. Laboratory test showed WBC 16.9 hemoglobin 7.1 and platelets 45 sodium 137 potassium 4.1 chloride 110 bicarb is 13 BUN 91 creatinine 3.62 and blood sugar 113 calcium 7.1 magnesium 1.4 AST 84 ALT 1836 and alk phos 126 and albumin 2.0. Current medications reviewed. Objective - Vital Signs Vital signs: Vital Signs Temp 96.4 F L 11/03/23 04:00 Pulse 82 11/03/23 07:00 Resp 26 H 11/03/23 07:00 BP 107/52 11/03/23 07:00 Pulse Ox 94 L 11/03/23 07:00 FiO2 Intake & Output 11/02/23 11/03/23 11/03/23 18:59 06:59 18:59 Intake Total 2245.043 4672.746 120 Output Total 15 0 0 Balance 0677.023 2520.746 120 Weight 97.1 kg 99.8 kg Intake: IV 1590 1660 120 .9 @ KVO 240 260 20 Albumin Human 25% 50 ml 100 In Empty Bag 1 bag @ 50 mls/hr IVPB Q1H [facility] Rx#: [id number] Cefepime 1 gm In Sodium 50 Chloride 0.9% 50 ml @ 12. 5 mls/hr IVPB Q12HR [facility] Rx#:[id number] Dextrose 5% in Water 1, 1200 1300 100 000 ml @ 100 mls/hr IV . [id number] [facility] with Sodium Bicarb (1 Meq/ml) 150 ml Rx#:[id number] Magnesium Sulfate-D5w Pmx 100 1 gm In Dextrose/Water 1 100ml.bag @ 100 mls/hr IVPB Q1H [facility] Rx#: [id number] Intake, IV Titration 258.000 558.746 Amount Norepinephrine 8 mg In 258.000 457.868 Sodium Chloride 0.9% 250 ml @ 0.03 MCG/KG/MIN 5. 266 mls/hr IV .Q24H [facility] Rx#:[id number] Vasopressin 60 unit In 100.878 Sodium Chloride 0.9% 150 ml @ 0.03 UNITS/MIN 4.59 mls/hr IV .Q24H [facility] Rx#: [id number] Output: Urine 15 0 0 Other: Voiding Method Indwelling Catheter Indwelling Catheter - Exam PHYSICAL EXAMINATION: Patient is lying in the bed. Patient is able to open her eyes and track but unable to communicate. HEENT: Normocephalic. Neck is supple. Pupils reactive. Nostrils clear. Oral cavity is moist. Neck reveals no JVD, carotid bruits, or thyromegaly. CHEST EXAMINATION: Trachea is central. Symmetrical expansion. Bibasilar diminished sounds otherwise lung ferguosn clear to auscultation and percussion. CARDIAC: Normal S1, S2 with no gallops. No murmurs ABDOMEN: Soft. Bowel sounds normal. No organomegaly. No abdominal bruits. Extremities: Bilateral 2+ edema with right lower extremity wound on the lateral side. No purulent discharge noted.. No clubbing or cyanosis Neurologically patient is awake alert and oriented x 0. Able to move her extremities while in bed. No gross focal deficits noted Skin: No rash. Skin lesions as above. Psychiatric: Could not be assessed. Musculoskeletal: No joint swelling or deformity. - Labs CBC & Chem 7: 11/03/23 04:00 11/03/23 04:00 Labs: Abnormal Lab Results - Last 24 Hours (Table) 11/02/23 11/03/23 11/03/23 Range/Units 11:53 03:25 04:00 WBC 16.9 H (3.8-10.6) k/uL RBC 2.33 L (3.80-5.40) m/uL Hgb 7.1 L (11.4-16.0) gm/dL Hct 23.0 L (34.0-46.0) % RDW 24.6 H (11.5-15.5) % Plt Count 45 L (150-450) k/uL Neutrophils # 13.0 H (1.3-7.7) k/uL Monocytes # 1.1 H (0-1.0) k/uL Chloride (98-107) mmol/L Carbon Dioxide (22-30) mmol/L BUN (7-17) mg/dL Creatinine (0.52-1.04) mg/dL Glucose (74-99) mg/dL POC Glucose (mg/dL) 114 H 122 H (70-110) mg/dL Calcium (8.4-10.2) mg/dL Magnesium (1.6-2.3) mg/dL Total Bilirubin (0.2-1.3) mg/dL AST (14-36) U/L ALT (4-34) U/L Total Protein (6.3-8.2) g/dL Albumin (3.5-5.0) g/dL / Range/Units 04:00 WBC (3.8-10.6) k/uL RBC (3.80-5.40) m/uL Hgb (11.4-16.0) gm/dL Hct (34.0-46.0) % RDW (11.5-15.5) % Plt Count (150-450) k/uL Neutrophils # (1.3-7.7) k/uL Monocytes # (0-1.0) k/uL Chloride 110 H (98-107) mmol/L Carbon Dioxide 13 L (22-30) mmol/L BUN 91 H (7-17) mg/dL Creatinine 3.62 H (0.52-1.04) mg/dL Glucose 113 H (74-99) mg/dL POC Glucose (mg/dL) (70-110) mg/dL Calcium 7.1 L (8.4-10.2) mg/dL Magnesium 1.4 L (1.6-2.3) mg/dL Total Bilirubin 5.5 H (0.2-1.3) mg/dL AST 84 H (14-36) U/L ALT 36 H (4-34) U/L Total Protein 4.9 L (6.3-8.2) g/dL Albumin 2.0 L (3.5-5.0) g/dL Microbiology - Last 24 Hours (Table) 11/01/23 00:45 Blood Culture - Preliminary Blood 11/01/23 00:30 Blood Culture - Preliminary Blood 11/01/23 00:44 Urine Culture - Preliminary Urine,Catheterized Group D Enterococcus Assessment and Plan Assessment: Acute hypotension and possible sepsis/septic shock due to UTI and right lower extremity wound with cellulitis Group D Enterococcus urinary tract infection Altered mental status with metabolic encephalopathy and infection Acute on chronic renal disease due to ATN secondary to hypotension. Creatinine 3.39 on admission baseline creatinine level around 3. Requiring hemodialysis-to be initiated. Wide-complex tachy arrhythmia. New onset Recent history of GI bleed status post EGD showed no active bleeding. Patient was discharged to [facility] on 10/25/2023 baseline hemoglobin around 8.0 CKD stage IIIb Chronic right lower extremity wound with history of debridement Chronic CHF with preserved ejection fraction Paroxysmal atrial fibrillation not on anticoagulation due to recent GI bleed History of gastric perforation with diagnostic laparoscopic repair on 05/26/2023 History of inclusion body myositis Obesity BMI 32.3 Bronchial asthma not in exacerbation Medical debility and bedridden group home Chronic thrombocytopenia with platelet count 50 K Coagulopathy with INR 2.1 on admission Transaminitis Right ear hearing loss DVT prophylaxis patient is anticoagulated Plan: Patient is in the MICU. Patient will be continued on IV hydration currently bicarb drip. Continue with pressor support. Patient was started on amiodarone drip due to wide-complex tachyarrhythmia. Continue broad-spectrum antibiotics daptomycin and cefepime. Urine culture showed group D Enterococcus. Blood pressure medications Lasix and metoprolol on hold. Continue to monitor H&H and continue with PPI CT of the abdomen pelvis showed small amount of ascites and bilateral pleural effusions. Patient has very minimal urine output. Continue to monitor renal function and follow-up closely. Pulmonary and nephrology is on board. Nephrology is recommending renal replacement therapy. Prognosis is guarded at this time due to multimedical problems and comorbid conditions Discussed with her at bedside in detail. Patient's would like her to be in full code. Time with Patient: Greater than 30
[2023-11-04] MEDS: ALBUMIN HUMAN 25% 50 ML in EMPTY BAG 1 BAG IVPB SCH (01:32)
--- NOTE | 2023-11-04 07:36 | XR ---
EXAMINATION TYPE: XR chest 1V portable DATE OF EXAM: 11/04/2023 COMPARISON: 11/03/2023 INDICATION: Vascular congestion TECHNIQUE: Single frontal view of the chest is obtained. FINDINGS: The heart size is enlarged. The pulmonary vasculature is now a prominent. Retrocardiac infiltrate and/or pleural effusion is present. IMPRESSION: 1. Equivocal consideration for mild congestive heart failure. Findings are stable in comparison
--- NOTE | 2023-11-04 07:45 | P.PN ---
Subjective Progress Note Date: 11/04/23 PROGRESS NOTE The patient is an 78-year-old female with a prior history of cardiomyopathy that recovered by echocardiogram in July, history of hypertension, diabetes who presented with GI bleeding and acute on chronic anemia in the past admitted this time with change in mental status, septic shock and acute renal injury. She had an episode of wide-complex tachycardia, probably supraventricular tachycardia with aberrancy. She was started on IV amiodarone, she is in sinus mechanism with first-degree block at this time and intraventricular conduction delay. She is on vasopressor. She is nonverbal, not following command. She continues to be anuric and has been evaluated to undergo hemodialysis today. Medications: Cefepime, Lasix 80 mg IV every 12 hours, sodium bicarb, norepinephrine PHYSICAL EXAMINATION: Blood pressure 106/59 heart rate 79, nonverbal, not following command LUNGS: Scattered rhonchi HEART: Regular rate and rhythm, S1, S2. No S3. Systolic ejection murmur, 06/25 ABDOMEN: Soft, nontender, no organomegaly EXTREMETIES: +1 edema LAB: BUN 91, creatinine 3.62, hemoglobin 7.1, WBC 16.9, total bilirubin 5.5. The patient had a CT scan of the abdomen that did not show any significant abnormalities with her gallbladder IMPRESSION: 1. Septic shock with urine growing group D Enterococcus 2. Acute renal injury with anuria, probable proceeding with hemodialysis today 3. Worsening liver failure with elevated bilirubin 4. Episode of wide-complex rhythm, back in sinus mechanism 5. Anemia 6. Prior history of cardiomyopathy, improved 7. Change in mental status related to sepsis PLAN: 1. Probable hemodialysis today 2. Continue clinical observation from the cardiac standpoint 3. Depending on her progress further recommendations will be made 4. Prognosis is guarded Objective - Vital Signs Vital signs: Vital Signs Temp 96.6 F L 11/04/23 04:00 Pulse 79 11/04/23 07:00 Resp 23 11/04/23 07:00 BP 106/59 11/04/23 07:00 Pulse Ox 96 11/04/23 07:00 FiO2 Intake & Output 11/03/23 11/04/23 11/04/23 18:59 06:59 18:59 Intake Total 1837.31 2259.357 123.686 Output Total 35 5 0 Balance 1802.31 2254.357 123.686 Weight 96.8 kg Intake: IV 1470 1370 120 .9 @ KVO 220 220 20 Albumin Human 25% 50 ml 50 150 In Empty Bag 1 bag @ 50 mls/hr IVPB Q1H [facility] Rx#: [id number] Cefepime 1 gm In Sodium 100 Chloride 0.9% 50 ml @ 12. 5 mls/hr IVPB Q12HR [facility] Rx#:[id number] Dextrose 5% in Water 1, 1100 1000 100 000 ml @ 100 mls/hr IV . [id number] [facility] with Sodium Bicarb (1 Meq/ml) 150 ml Rx#:[id number] Intake, IV Titration 367.31 889.357 3.686 Amount Albumin Human 25% 50 ml 50 In Empty Bag 1 bag @ 50 mls/hr IVPB Q1H [facility] Rx#: [id number] Amiodarone 450 mg In 250 Dextrose 5% in Water 250 ml @ 0.5 MG/MIN 16.667 mls/hr IV .Q15H [facility] Rx#: [id number] Cefepime 1 gm In Sodium 100 Chloride 0.9% 50 ml @ 12. 5 mls/hr IVPB Q12HR [facility] Rx#:[id number] Norepinephrine 8 mg In 245.93 457.737 3.686 Sodium Chloride 0.9% 250 ml @ 0.03 MCG/KG/MIN 5. 266 mls/hr IV .Q24H [facility] Rx#:[id number] Vasopressin 60 unit In 121.38 31.62 Sodium Chloride 0.9% 150 ml @ 0.03 UNITS/MIN 4.59 mls/hr IV .Q24H [facility] Rx#: [id number] Output: Urine 35 5 0 Other: Voiding Method Indwelling Catheter Indwelling Catheter - Labs CBC & Chem 7: 11/03/23 04:00 11/03/23 04:00 Labs: Abnormal Lab Results - Last 24 Hours (Table) 11/03/23 11/03/23 11/03/23 Range/Units 04:00 16:24 18:15 Plt Count 45 L (150-450) k/uL Neutrophils # 13.0 H (1.3-7.7) k/uL Monocytes # 1.1 H (0-1.0) k/uL POC Glucose (mg/dL) 149 H 128 H (70-110) mg/dL Microbiology - Last 24 Hours (Table) 11/01/23 00:45 Blood Culture - Preliminary Blood 11/01/23 00:30 Blood Culture - Preliminary Blood 11/01/23 00:44 Urine Culture - Final Urine,Catheterized Group D Enterococcus
[2023-11-04 07:56] LABS: Anisocytosis Marked; Hypochromasia Slight; MCH 30.9 pg (25.0-35.0); MCHC 31.9 g/dL (31.0-37.0); MCV 96.7 fL (80.0-100.0); Macrocytosis Moderate; Mean Platelet Volume 11.1; Poikilocytosis Slight; RBC 1.88 m/uL (3.80-5.40); WBC 9.6 k/uL (3.8-10.6)
[2023-11-04 08:00] LABS: ALT 26 U/L (4-34); AST 54 U/L (14-36); African American GFR (CKD) 13 (>60 ml/min/1.73 sqM); Albumin 2.5 g/dL (3.5-5.0); Alkaline Phosphatase 91 U/L (38-126); Anion Gap 11 mmol/L; Blood Urea Nitrogen 87 mg/dL (7-17); Calcium 6.8 mg/dL (8.4-10.2); Carbon Dioxide 22 mmol/L (22-30); Chloride 105 mmol/L (98-107); Glucose 117 mg/dL (74-99); HCT 18.2 % (34.0-46.0); HGB 5.8 gm/dL (11.4-16.0); Magnesium 1.7 mg/dL (1.6-2.3); Non-African American GFR(CKD) 12 (>60 ml/min/1.73 sqM); Platelet Count 32 k/uL (150-450); Potassium 3.8 mmol/L (3.5-5.1); Sodium 138 mmol/L (137-145); Total Bilirubin 5.9 mg/dL (0.2-1.3); Total Protein 4.9 g/dL (6.3-8.2)
[2023-11-04] MEDS: MAGNESIUM SULFATE-D5W PMX 1 GM in DEXTROSE/WATER 1 100ML.BAG IVPB ONE (08:25)
[2023-11-04] MEDS: POTASSIUM CHLORIDE 20 MEQ in WATER FOR INJECTION 1 100ML.BAG IVPB STA (08:25)
--- NOTE | 2023-11-04 09:12 | P.PN ---
Subjective Patient is seen in follow-up for acute kidney injury on chronic kidney disease. Oliguric. On Levophed and vasopressin. Also on bicarb drip. Acidosis improved. Vital signs -on vasopressor support. General: Lethargic. HEENT: On nasal cannula. LUNGS: Scattered rhonchi. HEART: Rate and Rhythm are regular. ABDOMEN: No distention. EXTREMITITES: Lower extremities wrapped. 2+ edema. Objective - Vital Signs Vital signs: Vital Signs Temp 93.9 F L 11/04/23 08:00 Pulse 87 11/04/23 09:00 Resp 21 11/04/23 09:00 BP 103/62 11/04/23 09:00 Pulse Ox 97 11/04/23 09:00 FiO2 Intake & Output 11/03/23 11/04/23 11/04/23 18:59 06:59 18:59 Intake Total 1837.31 2259.357 371.409 Output Total 35 5 0 Balance 1802.31 2254.357 371.409 Weight 96.8 kg Intake: IV 1470 1370 360 .9 @ KVO 220 220 60 Albumin Human 25% 50 ml 50 150 In Empty Bag 1 bag @ 50 mls/hr IVPB Q1H [facility] Rx#: [id number] Cefepime 1 gm In Sodium 100 Chloride 0.9% 50 ml @ 12. 5 mls/hr IVPB Q12HR [facility] Rx#:[id number] Dextrose 5% in Water 1, 1100 1000 300 000 ml @ 100 mls/hr IV . [id number] [facility] with Sodium Bicarb (1 Meq/ml) 150 ml Rx#:[id number] Intake, IV Titration 367.31 889.357 11.409 Amount Albumin Human 25% 50 ml 50 In Empty Bag 1 bag @ 50 mls/hr IVPB Q1H [facility] Rx#: [id number] Amiodarone 450 mg In 250 Dextrose 5% in Water 250 ml @ 0.5 MG/MIN 16.667 mls/hr IV .Q15H [facility] Rx#: [id number] Cefepime 1 gm In Sodium 100 Chloride 0.9% 50 ml @ 12. 5 mls/hr IVPB Q12HR [facility] Rx#:[id number] Norepinephrine 8 mg In 245.93 457.737 11.409 Sodium Chloride 0.9% 250 ml @ 0.03 MCG/KG/MIN 5. 266 mls/hr IV .Q24H [facility] Rx#:[id number] Vasopressin 60 unit In 121.38 31.62 Sodium Chloride 0.9% 150 ml @ 0.03 UNITS/MIN 4.59 mls/hr IV .Q24H [facility] Rx#: [id number] Output: Urine 35 5 0 Other: Voiding Method Indwelling Catheter Indwelling Catheter Indwelling Catheter - Labs CBC & Chem 7: 11/04/23 07:30 11/04/23 07:30 Labs: Abnormal Lab Results - Last 24 Hours (Table) 11/03/23 11/03/23 11/04/23 Range/Units 16:24 18:15 07:30 RBC 1.88 L (3.80-5.40) m/uL Hgb 5.8 L* (11.4-16.0) gm/dL Hct 18.2 L* (34.0-46.0) % RDW 25.0 H (11.5-15.5) % Plt Count 32 L (150-450) k/uL BUN (7-17) mg/dL Creatinine (0.52-1.04) mg/dL Glucose (74-99) mg/dL POC Glucose (mg/dL) 149 H 128 H (70-110) mg/dL Calcium (8.4-10.2) mg/dL Total Bilirubin (0.2-1.3) mg/dL AST (14-36) U/L Total Protein (6.3-8.2) g/dL Albumin (3.5-5.0) g/dL Crossmatch 11/04/23 11/04/23 Range/Units 07:30 08:05 RBC (3.80-5.40) m/uL Hgb (11.4-16.0) gm/dL Hct (34.0-46.0) % RDW (11.5-15.5) % Plt Count (150-450) k/uL BUN 87 H (7-17) mg/dL Creatinine 3.56 H (0.52-1.04) mg/dL Glucose 117 H (74-99) mg/dL POC Glucose (mg/dL) (70-110) mg/dL Calcium 6.8 L (8.4-10.2) mg/dL Total Bilirubin 5.9 H (0.2-1.3) mg/dL AST 54 H (14-36) U/L Total Protein 4.9 L (6.3-8.2) g/dL Albumin 2.5 L (3.5-5.0) g/dL Crossmatch See Detail Microbiology - Last 24 Hours (Table) 11/01/23 00:45 Blood Culture - Preliminary Blood 11/01/23 00:30 Blood Culture - Preliminary Blood 11/01/23 00:44 Urine Culture - Final Urine,Catheterized Group D Enterococcus Assessment and Plan Plan: Assessment: 1. Acute kidney injury secondary to ATN secondary to septic shock. No obstruction noted on CT. Creatinine 3.56 today. Oliguric. 2. Chronic kidney disease stage IIIa with baseline creatinine in the range of 1-1.3 in August 2023. Recently creatinine has been in the range of 2-3. 3. Acute blood loss anemia with hemoglobin 5.8 today. 4. Shock maintained on vasopressors. 5. Metabolic acidosis secondary to acute kidney injury. Improved with bicarb drip. 6. Volume overload. Plan: IV DDAVP x 1 dose today. Scheduled to receive blood transfusions today. Hep-Lock IV fluids. Due to volume overload, oliguria despite IV Lasix, initiate renal replacement therapy. Consult vascular surgery for dialysis catheter placement. Plan for first treatment of hemodialysis today and second treatment tomorrow. Will attempt SLED as patient is on vasopressors. CODE STATUS was also discussed. Currently full code. 20 minutes spent.
[2023-11-04 09:16] LABS: ABG HCO3 22 mmol/L (21-25); ABG Oxygen Saturation 99.6 % (94-97); ABG PCO2 36 mmHg (35-45); ABG PH 7.39 (7.35-7.45); ABG PO2 121 mmHg (83-108); ABG TCO2 23 mmol/L (19-24); Allen Test Performed? Yes
[2023-11-04] MEDS: DESMOPRESSIN ACETATE 22 MCG in SODIUM CHLORIDE 0.9% 50 ML IVPB ONE (09:44)
[2023-11-04 11:39] LABS: Appearance,Urine Turbid (Clear); Bacteria,Urine Occasional /hpf; Bilirubin,Urine Negative (Negative); Blood,Urine Large (Negative); Budding Yeast,Urine Moderate /hpf; Color,Urine Red; Glucose,Urine (UA) Negative (Negative); Ketones,Urine Trace (Negative); Leukocyte Esterase,Urine Large (Negative); Nitrite,Urine Negative (Negative); PH, Urine 5.5 (5.0-8.0); Protein,Urine 2+ (Negative); RBC,Urine >182 /hpf (0-5); Specific Gravity,Urine 1.018 (1.001-1.035); Squamous Epithelial Cell,Urine 1 /hpf (0-4); Urobilinogen,Urine <2.0 mg/dL (<2.0); WBC,Urine >182 /hpf (0-5)
--- NOTE | 2023-11-04 12:33 | P.PN ---
Subjective Progress Note Date: 11/04/23 Principal diagnosis: Septic shock Patient is an 78-year-old white female with past medical history significant for chronic bronchial asthma, heart failure with preserved ejection fraction, atrial fibrillation not currently on anticoagulation, GI bleed, previous cholecystitis status post laparoscopic cholecystectomy, previous gastric perforation, inclusion body myositis, chronic right lower extremity wound, among other things. She is very debilitated at baseline and has had multiple hospitalizations this year. She is currently a long term resident. Of note, patient was just recently discharged from the hospital approximately 1 week ago. She was thought to have upper GI bleed. Underwent EGD on 10/23/2023 which did not find any active GI bleeding, there was mild antral gastritis and duodenitis but no evidence of peptic ulcer disease. Early this morning, she was sent in from her [facility] for altered mental status. We were asked to evaluate this patient as she has been noted to be profoundly hypotensive refractory at initial attempts of fluid resuscitation of total 2 L normal saline bolus. Currently on norepinephrine infusion at 0.08 mcg/kg/min. She is also noted to be bradycardic and hypothermic. Initial temperature noted to be 84 F on arrival and is up to 90.7 F. External warming blanket on. She is currently in the emergency department, trauma bay 2. Her eyes are open, but she does not respond to any my questioning. Will withdraw to painful stimuli. Brain CT without contrast did not show any acute hemorrhage, hydrocephalus, or mass effect. She is currently on room air, SpO2 97%. No signs of respiratory distress. Chest x-ray shows mild cardiomegaly with mild pulmonary vascular congestion. No obvious focal infiltrates or evidence of pneumonia. Patient did present with an indwelling urinary catheter. Urinalysis showing pyuria and bacteriuria. CBC: WBC count 8.4, hemoglobin 7.7, hematocrit 24.4, platelets 50,000. PT 21.1. INR 2.1. aPTT 57.2. CMP: Sodium 136, potassium 4.4, chloride 112, serum bicarb 13, BUN 100, creatinine 3.39, glucose 133. Lactic acid level 2.6. LFTs mildly elevated. Troponin 0.019. NT proBNP 5970. Dr. Spencer is going to insert a central line catheter, and the patient will be admitted to the intensive care unit when bed available. On 11/02/2023, the patient is confused and the mental status remains altered. The patient remains in a shock state with profound hypotension, pressor dependence and the patient remains in renal failure. Currently she is on 3 Suboxone by nasal cannula. Urine output is in order of 15 cc throughout the night. The patient remains on a bicarb infusion at rate of 100 cc an hour. Norepinephrine is running at 0.2 mcg/kg/min and the patient was also given vasopressin physiologic dose at 0.04 units/min. The patient has extensive edema in all 4 extremities. The skin is weeping in the lower extremities specially on the right. The white cell count is at 9.5 with a hemoglobin of 7.3 and a platelet count of 107. BUN 39 with a creatinine of 2.25 and a sodium levels at 137 with a potassium level of 3.7. The patient is afebrile at this point in time. The patient remains encephalopathic and extremely lethargic. Labs from today show a white cell count of 16.8 with a hemoglobin 7.5 and a platelet count of 53. Blood gas showed a pH of 7.38 with a pCO2 of 29 and a pO2 of 76. Sodium level is 137, serum bicarb is at 14 with a BUN of 93 and a creatinine of 3.38. Blood cultures have been negative. LFTs are mildly impaired. The patient remains on a combination of IV cefepime and daptomycin. Blood cultures are still pending. Urine culture is positive for group D Enterococcus. On today's evaluation of 11/03/2023, the patient is encephalopathic in a shock state. The patient remains on 3 L of oxygen by nasal cannula. Urine output is absent. The patient remains on a bicarb infusion at rate of 100 cc an hour. Serum bicarb is at 13. Overnight, the patient had wide-complex tachycardia, probably A-fib with aberrancy and the patient was started on amiodarone drip and the cardiac rhythm is currently sinus. The patient remains on norepinephrine which is running at 0.18 mcg/kg/min and the patient is also on vasopressin physiologic fluids. Urine culture was positive for Enterococcus group D. The patient is on daptomycin and cefepime. The white cell count is 16.9 with a hemoglobin 7.1 and platelet count of 45. Sodium is at 137, bicarb 30, anion gap is at 14 with a BUN of 91 and a creatinine of 3.6. LFTs are mildly elevated and abnormal. Chest x-ray findings are essentially unchanged. The patient has developed some small left-sided pleural effusion. Patient was evaluated today on 11/04/2023, patient remains in the ICU, she is extremely encephalopathic, she is requiring norepinephrine at 0.05 mcg/kg/min, on vasopressin 0.04 units/min she is also on bicarb infusion at 100 cc/h 3 A of bicarb in 1 L D5W hemoglobin is quite low today at 5.8 requiring at least 2 units of packed RBCs. Patient is extremely encephalopathic, and I was concerned about whether the patient will require intubation mechanical ventilation, I updated the on her condition at bedside, and the clearly does not want her to be intubated and mechanically ventilated, he is against intubation and he is against CPR. Hence CODE STATUS was changed to DNR CODE STATUS. In the meantime the patient remains on daptomycin and cefepime, she has a group D Enterococcus infection in the urine, she also has cellulitis, patient has a chronic Hester catheter. Nephrology saw the patient, and considering initiation of hemodialysis. Patient is completely anuric. WBC count today is 9.6 hemoglobin 5.8. ABG on 4 L nasal cannula showed a pO2 of 121 pCO2 36 pH of 7.39. Basic metabolic profile is normal bicarb is 22 BUN is 87 creatinine 3.56. Total bilirubin is up to 5.9. AST is 54 ALT is 26, her ammonia level yesterday was normal. Urinalysis was noted, urine culture is growing group D Enterococcus. Blood cultures so far in the last 72 hours have been negative chest x-ray showing mild congestive heart failure/fluid overload Objective - Vital Signs Vital signs: Vital Signs Temp 34.2 F L 11/04/23 10:54 Pulse 103 H 11/04/23 11:15 Resp 23 11/04/23 11:15 BP 105/74 11/04/23 11:15 Pulse Ox 97 11/04/23 11:15 FiO2 Intake & Output 11/03/23 11/04/23 11/04/23 18:59 06:59 18:59 Intake Total 1837.31 2259.357 903.714 Output Total 35 5 30 Balance 1802.31 2254.357 873.714 Weight 96.8 kg Intake: IV 1470 1370 850 .9 @ KVO 220 220 100 Albumin Human 25% 50 ml 50 150 In Empty Bag 1 bag @ 50 mls/hr IVPB Q1H [facility] Rx#: [id number] Cefepime 1 gm In Sodium 100 50 Chloride 0.9% 50 ml @ 12. 5 mls/hr IVPB Q12HR [facility] Rx#:[id number] Dextrose 5% in Water 1, 1100 1000 500 000 ml @ 100 mls/hr IV . [id number] MEÑO with Sodium Bicarb (1 Meq/ml) 150 ml Rx#:[id number] Magnesium Sulfate-D5w Pmx 100 1 gm In Dextrose/Water 1 100ml.bag @ 100 mls/hr IVPB ONCE ONE Rx#: [id number] Potassium Chloride 20 meq 100 In Water For Injection 1 100ml.bag @ 50 mls/hr IVPB ONCE STA Rx#: [id number] Intake, IV Titration 367.31 889.357 53.714 Amount Albumin Human 25% 50 ml 50 In Empty Bag 1 bag @ 50 mls/hr IVPB Q1H [facility] Rx#: [id number] Amiodarone 450 mg In 250 Dextrose 5% in Water 250 ml @ 0.5 MG/MIN 16.667 mls/hr IV .Q15H [facility] Rx#: [id number] Cefepime 1 gm In Sodium 100 Chloride 0.9% 50 ml @ 12. 5 mls/hr IVPB Q12HR [facility] Rx#:[id number] Norepinephrine 8 mg In 245.93 457.737 53.714 Sodium Chloride 0.9% 250 ml @ 0.03 MCG/KG/MIN 5. 266 mls/hr IV .Q24H [facility] Rx#:[id number] Vasopressin 60 unit In 121.38 31.62 Sodium Chloride 0.9% 150 ml @ 0.03 UNITS/MIN 4.59 mls/hr IV .Q24H [facility] Rx#: [id number] Blood Product 0 Rc As-1 Unit 0 [id number] Output: Urine 35 5 30 Other: Voiding Method Indwelling Catheter Indwelling Catheter Indwelling Catheter - Exam GENERAL EXAM: 78-year-old encephalopathic, not responding to any verbal stimuli. HEAD: Normocephalic and atraumatic EYES: Anicteric sclerae otherwise negative. NOSE: Clear with pink turbinates. THROAT: No erythema or exudates. NECK: No masses, no JVD. CHEST/lungs: Fine crackles at the bases no rhonchi no wheezes symmetrical chest expansion CVS: S1 and S2 normal with no audible murmur, regular rhythm. No extra heart sounds ABDOMEN: Obese abdomen, soft nontender no megaly no rebound SKIN: Patient has a yellowish skin color./Jaundiced CENTRAL NERVOUS SYSTEM patient is encephalopathic, does not follow any instructions and does not respond to any verbal stimuli EXTREMITIES: 3+ bipedal edema - Labs CBC & Chem 7: 11/04/23 07:30 11/04/23 07:30 Labs: Abnormal Lab Results - Last 24 Hours (Table) 11/02/23 11/03/23 11/03/23 Range/Units 03:11 16:24 18:15 RBC (3.80-5.40) m/uL Hgb (11.4-16.0) gm/dL Hct (34.0-46.0) % RDW (11.5-15.5) % Plt Count (150-450) k/uL Pathologist Review See comment A ABG pO2 (83-108) mmHg ABG O2 Saturation (94-97) % BUN (7-17) mg/dL Creatinine (0.52-1.04) mg/dL Glucose (74-99) mg/dL POC Glucose (mg/dL) 149 H 128 H (70-110) mg/dL Calcium (8.4-10.2) mg/dL Total Bilirubin (0.2-1.3) mg/dL AST (14-36) U/L Total Protein (6.3-8.2) g/dL Albumin (3.5-5.0) g/dL Urine Appearance (Clear) Urine Protein (Negative) Urine Ketones (Negative) Urine Blood (Negative) Ur Leukocyte Esterase (Negative) Urine RBC (0-5) /hpf Urine WBC (0-5) /hpf Urine Bacteria (None) /hpf Urine Yeast (Budding) (None) /hpf Crossmatch 11/04/23 11/04/23 11/04/23 Range/Units 07:30 07:30 08:05 RBC 1.88 L (3.80-5.40) m/uL Hgb 5.8 L* (11.4-16.0) gm/dL Hct 18.2 L* (34.0-46.0) % RDW 25.0 H (11.5-15.5) % Plt Count 32 L (150-450) k/uL Pathologist Review ABG pO2 (83-108) mmHg ABG O2 Saturation (94-97) % BUN 87 H (7-17) mg/dL Creatinine 3.56 H (0.52-1.04) mg/dL Glucose 117 H (74-99) mg/dL POC Glucose (mg/dL) (70-110) mg/dL Calcium 6.8 L (8.4-10.2) mg/dL Total Bilirubin 5.9 H (0.2-1.3) mg/dL AST 54 H (14-36) U/L Total Protein 4.9 L (6.3-8.2) g/dL Albumin 2.5 L (3.5-5.0) g/dL Urine Appearance (Clear) Urine Protein (Negative) Urine Ketones (Negative) Urine Blood (Negative) Ur Leukocyte Esterase (Negative) Urine RBC (0-5) /hpf Urine WBC (0-5) /hpf Urine Bacteria (None) /hpf Urine Yeast (Budding) (None) /hpf Crossmatch See Detail 11/04/23 11/04/23 Range/Units 09:14 11:23 RBC (3.80-5.40) m/uL Hgb (11.4-16.0) gm/dL Hct (34.0-46.0) % RDW (11.5-15.5) % Plt Count (150-450) k/uL Pathologist Review ABG pO2 121 H (83-108) mmHg ABG O2 Saturation 99.6 H (94-97) % BUN (7-17) mg/dL Creatinine (0.52-1.04) mg/dL Glucose (74-99) mg/dL POC Glucose (mg/dL) (70-110) mg/dL Calcium (8.4-10.2) mg/dL Total Bilirubin (0.2-1.3) mg/dL AST (14-36) U/L Total Protein (6.3-8.2) g/dL Albumin (3.5-5.0) g/dL Urine Appearance Turbid H (Clear) Urine Protein 2+ H (Negative) Urine Ketones Trace H (Negative) Urine Blood Large H (Negative) Ur Leukocyte Esterase Large H (Negative) Urine RBC >182 H (0-5) /hpf Urine WBC >182 H (0-5) /hpf Urine Bacteria Occasional H (None) /hpf Urine Yeast (Budding) Moderate H (None) /hpf Crossmatch Microbiology - Last 24 Hours (Table) 11/01/23 00:45 Blood Culture - Preliminary Blood 11/01/23 00:30 Blood Culture - Preliminary Blood 11/01/23 00:44 Urine Culture - Final Urine,Catheterized Group D Enterococcus Assessment and Plan Assessment: Impression: Septic shock most likely source is urinary tract infection secondary to Enterococcus group D patient is on daptomycin and she is also on cefepime Encephalopathy/acute metabolic encephalopathy Atrial fibrillation with RVR required amiodarone for rate control. None anion gap metabolic acidosis requiring bicarb drip Acute on chronic kidney injury with anuria may require hemodialysis. That is being addressed by nephrology on the case. History of chronic kidney disease stage IIIb Chronic thrombocytopenia Anasarca with hypoproteinemia and edema History of bronchial asthma History of small hiatal hernia History of laparoscopic cholecystectomy 08/06/2023 History of gastric perforation, requiring repair/June 15 History of inclusion body myositis Medical debility Recommendation: Continue to monitor in the ICU Continue antibiotics/cefepime and daptomycin Continue pressors for hemodynamic support Continue bicarb infusion, could discontinue once the patient is on hemodialysis and that being considered to be started CHASITY. Continue GI prophylaxis Continue DVT prophylaxis I had a long discussion with the at bedside, CODE STATUS changed from full code to DNR CODE STATUS, no intubation and no CPR Overall prognosis is extremely poor and guarded Patient is critically ill Critical care time is over 30 minutes Time with Patient: Greater than 30
--- NOTE | 2023-11-04 12:59 | CA ---
Transthoracic Echo Report Name: Basia Hardy Age: 78 Gender: F : 1945 Exam Date: 11/04/2023 09:47 Exam Location: [place] [facility] Ht (in): 66 Wt (lb): 220 Ordering Physician: Johann Poole MD ([id number]) Attending/Referring Phys: School Fundraising Director Angle Pineda RDCS Procedure CPT: Indications: LVEF and effusion Cardiac Hx: Technical Quality: Fair Contrast 1: Total Dose (mL): Contrast 2: Total Dose (mL): MEASUREMENTS (Male / Female) Normal Values 2D ECHO LV Diastolic Diameter PLAX 3.8 cm 4.2 - 5.9 / 3.9 - 5.3 cm LV Systolic Diameter PLAX 3.0 cm IVS Diastolic Thickness 1.4 cm 0.6 - 1.0 / 0.6 - 0.9 cm LVPW Diastolic Thickness 1.3 cm 0.6 - 1.0 / 0.6 - 0.9 cm LV Relative Wall Thickness 0.7 FINDINGS Left Ventricle Limited study. Moderately reduced global left ventricular systolic function. Left ventricular ejection fraction is estimated at 40-45 %. Right Ventricle Right Atrium Left Atrium Mitral Valve Aortic Valve Tricuspid Valve Pulmonic Valve Pericardium Moderate to large pericardial effusion. Pericardial effusion located anteriorly. Aorta CONCLUSIONS Moderate to large localized posteriorly pericardial effusion Previewed by: Dr. Pérez Gonzalez MD (Electronically Signed) Final Date: 04 November 2023 12:58
--- NOTE | 2023-11-04 13:14 | P.GSCN ---
History of Present Illness Consult date: 11/04/23 History of present illness: Basia is an 78-year-old female admitted to the hospital with history of cardiomyopathy, hypertension, type 2 diabetes, GERD, prior kidney disease and recent GI bleed with acute on chronic anemia she was recently admitted with severe sepsis hypothermia and hypotension with concern of UTI. She has been an uric and given this was recommended to have dialysis. Patient is currently no code however would like to go for potential dialysis. 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 History of Any Multi-Drug Resistant Organisms: None Reported Past Surgical History: Cholecystectomy, Heart Catheterization Additional Past Surgical History / Comment(s): EYE SURGERY DUE TO INJURY, EGD, COLONOSCOPY, BONE MARROW BIOPSY, cataracts, muscle biopsy, Past Anesthesia/Blood Transfusion Reactions: No Reported Reaction Past Psychological History: No Psychological Hx Reported Smoking Status: Never smoker Past Alcohol Use History: Occasional Past Drug Use History: None Reported - Past Family History Sister(s) Family Medical History: Cancer Additional Family Medical History / Comment(s): LEUKEMIA- at age 42 Brother(s) Family Medical History: Cancer Additional Family Medical History / Comment(s): with unknown type CA at age 60s Medications and Allergies Home Medications Medication Instructions Recorded Confirmed Type Albuterol Sulfate [Ventolin HFA] 2 puff INHALATION RT-Q4H PRN 08/03/23 11/01/23 History Acetaminophen Tab [Tylenol] 650 mg PO Q6HR PRN 10/19/23 11/01/23 History Docusate [Colace] 100 mg PO BID 10/19/23 11/01/23 History Metoprolol Tartrate [Lopressor] 50 mg PO Q8H 10/19/23 11/01/23 History Albuterol Nebulized [Ventolin 2.5 mg INHALATION RT-Q4H PRN ml 10/25/23 11/01/23 Rx Nebulized] Potassium Chloride ER [K-Dur 20] 20 meq PO DAILY tab 10/25/23 11/01/23 Rx Sodium Bicarbonate Tab 650 mg PO BID tab 10/25/23 11/01/23 Rx Dakins (1/2 Strength) 1 applic TOPICAL BID 11/01/23 11/01/23 History Dakins (1/2 Strength) 1 applic TOPICAL DAILY PRN 11/01/23 11/01/23 History Darbepoetin Luis Alberto [Aranesp] 40 mcg SQ WE 11/01/23 11/01/23 History Furosemide [Lasix] 40 mg PO DIRECTED 11/01/23 11/01/23 History Lactose-Reduced Food [Ensure Plus] 237 ml PO QID 11/01/23 11/01/23 History Midodrine [ProAmatine] 5 mg PO TID 11/01/23 11/01/23 History Allergies Allergy/AdvReac Type Severity Reaction Status Date / Time omeprazole [From Prilosec] Allergy Unknown Rash/Hives, Verified 10/19/23 09:55 TONGUE SWELLLING omeprazole magnesium Allergy Unknown Rash/Hives, Verified 10/19/23 09:55 [From Prilosec] TONGUE SWELLLING Penicillins Allergy Unknown Rash/Hives/ Verified 10/19/23 09:55 Itching amlodipine Allergy fide pedal Verified 10/19/23 09:55 edema, loss voice carvedilol Allergy shortness Verified 10/19/23 09:55 of breath lisinopril Allergy Unknown Verified 10/19/23 09:55 Surgical - Exam Vital Signs Pulse Resp Pulse Ox 48 L 19 98 10/31/23 23:43 10/31/23 23:43 10/31/23 23:43 General: Anasarca severe head: Normocephalic. Eyes: Sclerae nonicteric. Neck: elevated jugular venous distention. Lungs: No respiratory effort, diminished breath sounds bilaterally Abdomen: Abdomen is distended but nontender Extremities: 2-3+ pitting edema bilateral lower and upper extremity. Neuro: Drowsy but arousable with verbal stimuli. Not following commands. Results SURGEON: Meenakshi Hester DO [employer] OPERATOR: None PREOPERATIVE DIAGNOSIS: HALINA on CKD, and uric POSTOPERATIVE DIAGNOSIS: Same OPERATION: Ultrasound-guided right common femoral vein access, placement of temporary dialysis catheter DESCRIPTION OF PROCEDURE: The groin was prepped and draped in usual sterile fashion. A preprocedure timeout was performed, all parties were in agreement. An ultrasound was utilized and the right common femoral vein was identified. It was patent and compressible, noted to be pulsatile. The skin overlying the vein was anesthetized with 1% lidocaine plain. A multipurpose needle was utilized and the femoral vein was accessed under ultrasound guidance on first attempt with return of dark venous, nonpulsatile blood. The guidewire was passed easily. Serial dilation was performed of the subcutaneous tissues. The catheter was placed and secured with suture. It aspirated and flushed freely. A dressing was applied. The patient tolerated the procedure well. - Labs 11/04/23 07:30 11/04/23 07:30 Abnormal Lab Results - Last 24 Hours (Table) 11/02/23 11/03/23 11/03/23 Range/Units 03:11 16:24 18:15 RBC (3.80-5.40) m/uL Hgb (11.4-16.0) gm/dL Hct (34.0-46.0) % RDW (11.5-15.5) % Plt Count (150-450) k/uL Pathologist Review See comment A ABG pO2 (83-108) mmHg ABG O2 Saturation (94-97) % BUN (7-17) mg/dL Creatinine (0.52-1.04) mg/dL Glucose (74-99) mg/dL POC Glucose (mg/dL) 149 H 128 H (70-110) mg/dL Calcium (8.4-10.2) mg/dL Total Bilirubin (0.2-1.3) mg/dL AST (14-36) U/L Total Protein (6.3-8.2) g/dL Albumin (3.5-5.0) g/dL Urine Appearance (Clear) Urine Protein (Negative) Urine Ketones (Negative) Urine Blood (Negative) Ur Leukocyte Esterase (Negative) Urine RBC (0-5) /hpf Urine WBC (0-5) /hpf Urine Bacteria (None) /hpf Urine Yeast (Budding) (None) /hpf Crossmatch 11/04/23 11/04/23 11/04/23 Range/Units 07:30 07:30 08:05 RBC 1.88 L (3.80-5.40) m/uL Hgb 5.8 L* (11.4-16.0) gm/dL Hct 18.2 L* (34.0-46.0) % RDW 25.0 H (11.5-15.5) % Plt Count 32 L (150-450) k/uL Pathologist Review ABG pO2 (83-108) mmHg ABG O2 Saturation (94-97) % BUN 87 H (7-17) mg/dL Creatinine 3.56 H (0.52-1.04) mg/dL Glucose 117 H (74-99) mg/dL POC Glucose (mg/dL) (70-110) mg/dL Calcium 6.8 L (8.4-10.2) mg/dL Total Bilirubin 5.9 H (0.2-1.3) mg/dL AST 54 H (14-36) U/L Total Protein 4.9 L (6.3-8.2) g/dL Albumin 2.5 L (3.5-5.0) g/dL Urine Appearance (Clear) Urine Protein (Negative) Urine Ketones (Negative) Urine Blood (Negative) Ur Leukocyte Esterase (Negative) Urine RBC (0-5) /hpf Urine WBC (0-5) /hpf Urine Bacteria (None) /hpf Urine Yeast (Budding) (None) /hpf Crossmatch See Detail 11/04/23 11/04/23 Range/Units 09:14 11:23 RBC (3.80-5.40) m/uL Hgb (11.4-16.0) gm/dL Hct (34.0-46.0) % RDW (11.5-15.5) % Plt Count (150-450) k/uL Pathologist Review ABG pO2 121 H (83-108) mmHg ABG O2 Saturation 99.6 H (94-97) % BUN (7-17) mg/dL Creatinine (0.52-1.04) mg/dL Glucose (74-99) mg/dL POC Glucose (mg/dL) (70-110) mg/dL Calcium (8.4-10.2) mg/dL Total Bilirubin (0.2-1.3) mg/dL AST (14-36) U/L Total Protein (6.3-8.2) g/dL Albumin (3.5-5.0) g/dL Urine Appearance Turbid H (Clear) Urine Protein 2+ H (Negative) Urine Ketones Trace H (Negative) Urine Blood Large H (Negative) Ur Leukocyte Esterase Large H (Negative) Urine RBC >182 H (0-5) /hpf Urine WBC >182 H (0-5) /hpf Urine Bacteria Occasional H (None) /hpf Urine Yeast (Budding) Moderate H (None) /hpf Crossmatch Microbiology - Last 24 Hours (Table) 11/01/23 00:45 Blood Culture - Preliminary Blood 11/01/23 00:30 Blood Culture - Preliminary Blood 11/01/23 00:44 Urine Culture - Final Urine,Catheterized Group D Enterococcus Diabetes panel 11/04/23 Range/Units 07:30 Sodium 138 (137-145) mmol/L Potassium 3.8 (3.5-5.1) mmol/L Chloride 105 (98-107) mmol/L Carbon Dioxide 22 (22-30) mmol/L BUN 87 H (7-17) mg/dL Creatinine 3.56 H (0.52-1.04) mg/dL Glucose 117 H (74-99) mg/dL Calcium 6.8 L (8.4-10.2) mg/dL AST 54 H (14-36) U/L ALT 26 (4-34) U/L Alkaline Phosphatase 91 (38-126) U/L Total Protein 4.9 L (6.3-8.2) g/dL Albumin 2.5 L (3.5-5.0) g/dL Calcium panel 11/04/23 Range/Units 07:30 Calcium 6.8 L (8.4-10.2) mg/dL Albumin 2.5 L (3.5-5.0) g/dL Pituitary panel 11/04/23 Range/Units 07:30 Sodium 138 (137-145) mmol/L Potassium 3.8 (3.5-5.1) mmol/L Chloride 105 (98-107) mmol/L Carbon Dioxide 22 (22-30) mmol/L BUN 87 H (7-17) mg/dL Creatinine 3.56 H (0.52-1.04) mg/dL Glucose 117 H (74-99) mg/dL Calcium 6.8 L (8.4-10.2) mg/dL Adrenal panel 11/04/23 Range/Units 07:30 Sodium 138 (137-145) mmol/L Potassium 3.8 (3.5-5.1) mmol/L Chloride 105 (98-107) mmol/L Carbon Dioxide 22 (22-30) mmol/L BUN 87 H (7-17) mg/dL Creatinine 3.56 H (0.52-1.04) mg/dL Glucose 117 H (74-99) mg/dL Calcium 6.8 L (8.4-10.2) mg/dL Total Bilirubin 5.9 H (0.2-1.3) mg/dL AST 54 H (14-36) U/L ALT 26 (4-34) U/L Alkaline Phosphatase 91 (38-126) U/L Total Protein 4.9 L (6.3-8.2) g/dL Albumin 2.5 L (3.5-5.0) g/dL Assessment and Plan Assessment: HALINA on CKD requiring dialysis Plan: Temporary dialysis catheter was placed in the femoral vein. Patient may go for dialysis when able.
--- NOTE | 2023-11-04 14:44 | P.CNNES ---
History of Present Illness Consult date: 11/04/23 Requesting physician: Emilia Gonzalez Reason for Consult: ams History of Present Illness: This is an 78-year-old woman with multiple medical issues such as heart failure, atrial fibrillation on anticoagulation, GI bleed, inclusion body myositis, chronic right lower extremity wound who resides in a intermediate resident who w as sent from her [facility] for altered mental status. This hospital visit it seems that the patient has acute UTI, acute on chronic kidney insufficiency, anemia more than baseline. Per nurse she is having wheezing throughout the body. According to the nurse that she is getting dialysis which is new because of her worsening acute kidney insufficiency. Patient is jaundiced. Some of the Workup during this hospital visit consisted of: Hemoglobin is 5.8. CT of the head is reported as no acute hemorrhage, hydrocephalus or mass effect. Reviewed the CT head and agree with the report. 2D echo is reported as moderate to large localized posterior pericardial effusion. Total bilirubin 5.9 Ammonia 17. 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 History of Any Multi-Drug Resistant Organisms: None Reported Past Surgical History: Cholecystectomy, Heart Catheterization Additional Past Surgical History / Comment(s): EYE SURGERY DUE TO INJURY, EGD, COLONOSCOPY, BONE MARROW BIOPSY, cataracts, muscle biopsy, Past Anesthesia/Blood Transfusion Reactions: No Reported Reaction Past Psychological History: No Psychological Hx Reported Smoking Status: Never smoker Past Alcohol Use History: Occasional Past Drug Use History: None Reported - Past Family History Sister(s) Family Medical History: Cancer Additional Family Medical History / Comment(s): LEUKEMIA- at age 42 Brother(s) Family Medical History: Cancer Additional Family Medical History / Comment(s): with unknown type CA at age 60s Medications and Allergies Home Medications Medication Instructions Recorded Confirmed Type Albuterol Sulfate [Ventolin HFA] 2 puff INHALATION RT-Q4H PRN 08/03/23 11/01/23 History Acetaminophen Tab [Tylenol] 650 mg PO Q6HR PRN 10/19/23 11/01/23 History Docusate [Colace] 100 mg PO BID 10/19/23 11/01/23 History Metoprolol Tartrate [Lopressor] 50 mg PO Q8H 10/19/23 11/01/23 History Albuterol Nebulized [Ventolin 2.5 mg INHALATION RT-Q4H PRN ml 10/25/23 11/01/23 Rx Nebulized] Potassium Chloride ER [K-Dur 20] 20 meq PO DAILY tab 10/25/23 11/01/23 Rx Sodium Bicarbonate Tab 650 mg PO BID tab 10/25/23 11/01/23 Rx Dakins (1/2 Strength) 1 applic TOPICAL BID 11/01/23 11/01/23 History Dakins (1/2 Strength) 1 applic TOPICAL DAILY PRN 11/01/23 11/01/23 History Darbepoetin Luis Alberto [Aranesp] 40 mcg SQ WE 11/01/23 11/01/23 History Furosemide [Lasix] 40 mg PO DIRECTED 11/01/23 11/01/23 History Lactose-Reduced Food [Ensure Plus] 237 ml PO QID 11/01/23 11/01/23 History Midodrine [ProAmatine] 5 mg PO TID 11/01/23 11/01/23 History Allergies Allergy/AdvReac Type Severity Reaction Status Date / Time omeprazole [From Prilosec] Allergy Unknown Rash/Hives, Verified 10/19/23 09:55 TONGUE SWELLLING omeprazole magnesium Allergy Unknown Rash/Hives, Verified 10/19/23 09:55 [From Prilosec] TONGUE SWELLLING Penicillins Allergy Unknown Rash/Hives/ Verified 10/19/23 09:55 Itching amlodipine Allergy fdie pedal Verified 10/19/23 09:55 edema, loss voice carvedilol Allergy shortness Verified 10/19/23 09:55 of breath lisinopril Allergy Unknown Verified 10/19/23 09:55 Physical Examination - Vital Signs Vital Signs: Vital Signs Temp Pulse Resp BP Pulse Ox 11/04/23 14:00 99 23 106/68 97 11/04/23 13:45 105 H 23 98/65 98 11/04/23 13:30 112 H 25 H 123/77 98 11/04/23 13:17 93.7 F L 110 H 22 123/77 98 06/17/24 13:15 96 22 101/56 98 11/04/23 13:00 102 H 22 99/65 98 11/04/23 12:57 93.6 F L 90 24 101/56 98 11/04/23 12:45 89 22 111/70 97 11/04/23 12:30 96 20 106/64 97 11/04/23 12:28 93.6 F L 105 H 20 106/64 97 11/04/23 12:15 85 20 110/57 98 11/04/23 12:00 93.6 F L 111 H 26 H 114/70 97 11/04/23 11:45 88 17 120/52 97 11/04/23 11:30 98 22 112/76 97 11/04/23 11:15 103 H 23 105/74 97 11/04/23 11:00 108 H 24 108/66 97 11/04/23 10:54 93.6 F L 101 H 22 108/66 97 11/04/23 10:45 98 17 108/57 97 11/04/23 10:34 93.4 F L 11/04/23 10:33 93.4 F L 105 H 16 108/57 97 11/04/23 10:30 98 22 115/47 97 11/04/23 10:15 89 23 114/65 97 11/04/23 10:00 89 23 110/62 97 11/04/23 09:45 94 22 118/67 97 11/04/23 09:30 86 23 79/64 97 11/04/23 09:15 101 H 20 113/75 97 11/04/23 09:00 87 21 103/62 97 11/04/23 08:45 90 23 103/46 97 11/04/23 08:31 93 23 103/46 96 11/04/23 08:15 76 18 104/55 97 11/04/23 08:00 93.9 F L 80 21 105/62 96 11/04/23 07:45 80 22 103/55 96 11/04/23 07:30 75 21 104/54 96 11/04/23 07:15 80 27 H 101/65 96 11/04/23 07:00 79 23 106/59 96 11/04/23 06:45 79 21 107/57 96 11/04/23 06:30 79 24 107/55 96 11/04/23 06:15 78 22 108/75 96 11/04/23 06:00 77 24 114/58 96 11/04/23 05:45 78 22 107/64 96 11/04/23 05:30 78 21 116/57 96 11/04/23 05:15 80 23 111/60 96 11/04/23 05:00 81 25 H 110/64 96 11/04/23 04:45 78 25 H 103/62 96 11/04/23 04:30 79 22 109/55 96 11/04/23 04:15 79 25 H 117/54 96 11/04/23 04:00 96.6 F L 76 23 115/62 96 11/04/23 03:45 81 22 111/54 96 11/04/23 03:30 78 23 116/56 95 11/04/23 03:15 75 27 H 109/64 96 11/04/23 03:00 77 25 H 116/63 96 11/04/23 02:45 80 22 114/58 96 11/04/23 02:30 76 21 100/64 96 11/04/23 02:15 79 21 105/65 96 11/04/23 02:00 76 25 H 111/64 96 11/04/23 01:45 84 22 121/51 96 11/04/23 01:30 79 26 H 131/61 96 11/04/23 01:15 89 20 108/48 97 11/04/23 01:00 77 17 90/40 99 11/04/23 00:45 73 18 110/45 97 11/04/23 00:30 80 19 105/48 96 11/04/23 00:29 78 19 105/48 96 11/04/23 00:15 74 23 112/46 96 11/04/23 00:00 97.1 F L 85 10 L 103/46 96 11/03/23 23:45 80 26 H 98/49 97 11/03/23 23:30 85 23 93/45 96 11/03/23 23:15 72 25 H 102/43 97 11/03/23 23:00 73 25 H 104/50 96 11/03/23 22:45 75 14 97/43 96 11/03/23 22:30 80 26 H 107/46 95 11/03/23 22:15 90 17 105/42 96 11/03/23 22:00 84 21 101/46 96 06/16/24 21:45 79 28 H 108/48 95 11/03/23 21:30 78 19 112/54 95 11/03/23 21:15 89 22 104/49 96 11/03/23 21:00 79 26 H 108/60 95 11/03/23 20:45 89 21 107/45 96 11/03/23 20:30 80 26 H 109/44 96 11/03/23 20:15 86 24 110/40 96 11/03/23 20:00 79 17 110/45 96 11/03/23 19:45 80 13 111/50 97 11/03/23 19:30 80 26 H 98/58 96 11/03/23 19:15 97.1 F L 75 25 H 109/47 96 11/03/23 19:00 75 22 111/47 95 11/03/23 18:45 75 26 H 103/43 95 11/03/23 18:30 89 26 H 115/52 95 11/03/23 18:15 90 30 H 110/46 94 L 11/03/23 18:00 81 28 H 110/52 95 11/03/23 17:45 86 29 H 111/64 95 11/03/23 17:30 88 28 H 109/55 95 11/03/23 17:15 80 21 112/54 95 11/03/23 17:00 87 28 H 111/44 95 11/03/23 16:45 87 27 H 109/51 95 11/03/23 16:30 86 24 115/49 95 11/03/23 16:15 87 31 H 113/50 94 L 11/03/23 16:00 97.7 F 92 26 H 116/48 94 L 11/03/23 15:45 84 27 H 109/54 95 11/03/23 15:30 86 29 H 123/50 94 L 11/03/23 15:29 86 11/03/23 15:20 92 11/03/23 15:17 94 L 11/03/23 15:15 92 28 H 115/61 94 L 11/03/23 15:00 85 30 H 111/60 94 L 11/03/23 14:45 89 29 H 116/52 94 L Intake and Output 11/03/23 11/04/23 11/04/23 22:59 06:59 14:59 Intake Total 1839.593 0310.357 1578.263 Output Total 5 0 35 Balance 5288.107 0735.357 1543.263 Intake: IV 206 236 2619 .9 @ KVO 160 140 160 Albumin Human 25% 50 ml 100 50 In Empty Bag 1 bag @ 50 mls/hr IVPB Q1H [facility] Rx#: [id number] Cefepime 1 gm In Sodium 50 Chloride 0.9% 50 ml @ 12. 5 mls/hr IVPB Q12HR [facility] Rx#:[id number] Dextrose 5% in Water 1, 700 700 800 000 ml @ 100 mls/hr IV . [id number] MEÑO with Sodium Bicarb (1 Meq/ml) 150 ml Rx#:[id number] Magnesium Sulfate-D5w Pmx 100 1 gm In Dextrose/Water 1 100ml.bag @ 100 mls/hr IVPB ONCE ONE Rx#: [id number] Potassium Chloride 20 meq 100 In Water For Injection 1 100ml.bag @ 50 mls/hr IVPB ONCE STA Rx#: [id number] Intake, IV Titration 479.380 531.357 58.263 Amount Albumin Human 25% 50 ml 50 In Empty Bag 1 bag @ 50 mls/hr IVPB Q1H [facility] Rx#: [id number] Amiodarone 450 mg In 250 Dextrose 5% in Water 250 ml @ 0.5 MG/MIN 16.667 mls/hr IV .Q15H [facility] Rx#: [id number] Cefepime 1 gm In Sodium 100 Chloride 0.9% 50 ml @ 12. 5 mls/hr IVPB Q12HR [facility] Rx#:[id number] Norepinephrine 8 mg In 258.000 199.737 58.263 Sodium Chloride 0.9% 250 ml @ 0.03 MCG/KG/MIN 5. 266 mls/hr IV .Q24H [facility] Rx#:[id number] Vasopressin 60 unit In 121.38 31.62 Sodium Chloride 0.9% 150 ml @ 0.03 UNITS/MIN 4.59 mls/hr IV .Q24H [facility] Rx#: [id number] Blood Product 310 Rc As-1 Unit 310 [id number] Rc Pheresis As-3 Unit 0 [id number] Output: Urine 5 0 35 Other: Voiding Method Indwelling Catheter Indwelling Catheter Indwelling Catheter Weight 96.8 kg General: The patient is lying in bed and does not appear in acute distress. But appears lethargic. HENT: Appears jaudince. Respiratory: Has coarse to auscultation Neuro: Very limited. Is severely drowsy and opens eyes but not following commands or verbally responsive. No facial weakness at baseline. Motor: Limited. No spontaneous movement. Results - Laboratory Findings CBC and BMP: 11/04/23 07:30 11/04/23 07:30 Abnormal Lab Findings: Abnormal Labs 11/01/23 11/01/23 11/01/23 00:04 00:04 00:04 WBC RBC 2.53 L Hgb 7.7 L Hct 24.4 L RDW 22.4 H Plt Count 50 L Neutrophils # Neutrophils # (Manual) Lymphocytes # (Manual) 0.50 L Monocytes # Monocytes # (Manual) Eosinophils # (Manual) 1.34 H Metamyelocytes # (Man) Nucleated RBCs Pathologist Review PT 21.1 H INR 2.1 H APTT 57.2 H ABG pCO2 ABG pO2 ABG HCO3 ABG Total CO2 ABG O2 Saturation Sodium 136 L Chloride 112 H Carbon Dioxide 13 L BUN 100 H Creatinine 3.39 H Glucose 133 H POC Glucose (mg/dL) Plasma Lactic Acid Shane Calcium Magnesium Total Bilirubin 3.0 H AST 66 H ALT 36 H Alkaline Phosphatase 149 H Total Protein 4.9 L Albumin 2.0 L Procalcitonin Urine Appearance Urine Protein Urine Ketones Urine Blood Ur Leukocyte Esterase Urine RBC Urine WBC Ur Squamous Epith Cells Calcium Oxalate Crystal Amorphous Sediment Urine Bacteria Hyaline Casts Urine Yeast (Budding) Crossmatch 11/01/23 11/01/23 11/01/23 00:04 00:38 00:45 WBC RBC Hgb Hct RDW Plt Count Neutrophils # Neutrophils # (Manual) Lymphocytes # (Manual) Monocytes # Monocytes # (Manual) Eosinophils # (Manual) Metamyelocytes # (Man) Nucleated RBCs Pathologist Review PT INR APTT ABG pCO2 ABG pO2 ABG HCO3 ABG Total CO2 ABG O2 Saturation Sodium Chloride Carbon Dioxide BUN Creatinine Glucose POC Glucose (mg/dL) 171 H Plasma Lactic Acid Shane Calcium Magnesium Total Bilirubin AST ALT Alkaline Phosphatase Total Protein Albumin Procalcitonin 0.16 H Urine Appearance Turbid H Urine Protein 2+ H Urine Ketones Urine Blood Moderate H Ur Leukocyte Esterase Large H Urine RBC 11 H Urine WBC 78 H Ur Squamous Epith Cells 16 H Calcium Oxalate Crystal Occasional H Amorphous Sediment Rare H Urine Bacteria Many H Hyaline Casts 8 H Urine Yeast (Budding) Many H Crossmatch 11/01/23 11/01/23 11/01/23 01:45 06:31 09:20 WBC RBC Hgb Hct RDW Plt Count Neutrophils # Neutrophils # (Manual) Lymphocytes # (Manual) Monocytes # Monocytes # (Manual) Eosinophils # (Manual) Metamyelocytes # (Man) Nucleated RBCs Pathologist Review PT INR APTT ABG pCO2 ABG pO2 ABG HCO3 ABG Total CO2 ABG O2 Saturation Sodium Chloride Carbon Dioxide BUN Creatinine Glucose POC Glucose (mg/dL) Plasma Lactic Acid Shane 2.6 H* 2.7 H* 2.6 H* Calcium Magnesium Total Bilirubin AST ALT Alkaline Phosphatase Total Protein Albumin Procalcitonin Urine Appearance Urine Protein Urine Ketones Urine Blood Ur Leukocyte Esterase Urine RBC Urine WBC Ur Squamous Epith Cells Calcium Oxalate Crystal Amorphous Sediment Urine Bacteria Hyaline Casts Urine Yeast (Budding) Crossmatch 11/01/23 11/02/23 11/02/23 16:30 03:11 03:11 WBC 16.8 H RBC 2.44 L Hgb 7.5 L Hct 23.5 L RDW 23.7 H Plt Count 53 L Neutrophils # Neutrophils # (Manual) 12.70 H Lymphocytes # (Manual) Monocytes # Monocytes # (Manual) 1.51 H Eosinophils # (Manual) 1.51 H Metamyelocytes # (Man) 0.17 H Nucleated RBCs 11 H Pathologist Review See comment A PT INR APTT ABG pCO2 ABG pO2 ABG HCO3 ABG Total CO2 ABG O2 Saturation Sodium Chloride 115 H 113 H Carbon Dioxide 14 L 14 L BUN 92 H 93 H Creatinine 3.29 H 3.38 H Glucose POC Glucose (mg/dL) Plasma Lactic Acid Shane Calcium 8.2 L 7.8 L Magnesium Total Bilirubin 4.0 H AST 87 H ALT 41 H Alkaline Phosphatase 139 H Total Protein 4.7 L Albumin 1.8 L Procalcitonin Urine Appearance Urine Protein Urine Ketones Urine Blood Ur Leukocyte Esterase Urine RBC Urine WBC Ur Squamous Epith Cells Calcium Oxalate Crystal Amorphous Sediment Urine Bacteria Hyaline Casts Urine Yeast (Budding) Crossmatch 11/02/23 11/02/23 11/03/23 10:10 11:53 03:25 WBC RBC Hgb Hct RDW Plt Count Neutrophils # Neutrophils # (Manual) Lymphocytes # (Manual) Monocytes # Monocytes # (Manual) Eosinophils # (Manual) Metamyelocytes # (Man) Nucleated RBCs Pathologist Review PT INR APTT ABG pCO2 29 L ABG pO2 76 L ABG HCO3 17 L ABG Total CO2 18 L ABG O2 Saturation Sodium Chloride Carbon Dioxide BUN Creatinine Glucose POC Glucose (mg/dL) 114 H 122 H Plasma Lactic Acid Shane Calcium Magnesium Total Bilirubin AST ALT Alkaline Phosphatase Total Protein Albumin Procalcitonin Urine Appearance Urine Protein Urine Ketones Urine Blood Ur Leukocyte Esterase Urine RBC Urine WBC Ur Squamous Epith Cells Calcium Oxalate Crystal Amorphous Sediment Urine Bacteria Hyaline Casts Urine Yeast (Budding) Crossmatch 11/03/23 11/03/23 11/03/23 04:00 04:00 16:24 WBC 16.9 H RBC 2.33 L Hgb 7.1 L Hct 23.0 L RDW 24.6 H Plt Count 45 L Neutrophils # 13.0 H Neutrophils # (Manual) Lymphocytes # (Manual) Monocytes # 1.1 H Monocytes # (Manual) Eosinophils # (Manual) Metamyelocytes # (Man) Nucleated RBCs Pathologist Review PT INR APTT ABG pCO2 ABG pO2 ABG HCO3 ABG Total CO2 ABG O2 Saturation Sodium Chloride 110 H Carbon Dioxide 13 L BUN 91 H Creatinine 3.62 H Glucose 113 H POC Glucose (mg/dL) 149 H Plasma Lactic Acid Shane Calcium 7.1 L Magnesium 1.4 L Total Bilirubin 5.5 H AST 84 H ALT 36 H Alkaline Phosphatase Total Protein 4.9 L Albumin 2.0 L Procalcitonin Urine Appearance Urine Protein Urine Ketones Urine Blood Ur Leukocyte Esterase Urine RBC Urine WBC Ur Squamous Epith Cells Calcium Oxalate Crystal Amorphous Sediment Urine Bacteria Hyaline Casts Urine Yeast (Budding) Crossmatch 11/03/23 11/04/23 11/04/23 18:15 07:30 07:30 WBC RBC 1.88 L Hgb 5.8 L* Hct 18.2 L* RDW 25.0 H Plt Count 32 L Neutrophils # Neutrophils # (Manual) Lymphocytes # (Manual) Monocytes # Monocytes # (Manual) Eosinophils # (Manual) Metamyelocytes # (Man) Nucleated RBCs Pathologist Review PT INR APTT ABG pCO2 ABG pO2 ABG HCO3 ABG Total CO2 ABG O2 Saturation Sodium Chloride Carbon Dioxide BUN 87 H Creatinine 3.56 H Glucose 117 H POC Glucose (mg/dL) 128 H Plasma Lactic Acid Shane Calcium 6.8 L Magnesium Total Bilirubin 5.9 H AST 54 H ALT Alkaline Phosphatase Total Protein 4.9 L Albumin 2.5 L Procalcitonin Urine Appearance Urine Protein Urine Ketones Urine Blood Ur Leukocyte Esterase Urine RBC Urine WBC Ur Squamous Epith Cells Calcium Oxalate Crystal Amorphous Sediment Urine Bacteria Hyaline Casts Urine Yeast (Budding) Crossmatch 11/04/23 11/04/23 11/04/23 08:05 09:14 11:23 WBC RBC Hgb Hct RDW Plt Count Neutrophils # Neutrophils # (Manual) Lymphocytes # (Manual) Monocytes # Monocytes # (Manual) Eosinophils # (Manual) Metamyelocytes # (Man) Nucleated RBCs Pathologist Review PT INR APTT ABG pCO2 ABG pO2 121 H ABG HCO3 ABG Total CO2 ABG O2 Saturation 99.6 H Sodium Chloride Carbon Dioxide BUN Creatinine Glucose POC Glucose (mg/dL) Plasma Lactic Acid Shane Calcium Magnesium Total Bilirubin AST ALT Alkaline Phosphatase Total Protein Albumin Procalcitonin Urine Appearance Turbid H Urine Protein 2+ H Urine Ketones Trace H Urine Blood Large H Ur Leukocyte Esterase Large H Urine RBC >182 H Urine WBC >182 H Ur Squamous Epith Cells Calcium Oxalate Crystal Amorphous Sediment Urine Bacteria Occasional H Hyaline Casts Urine Yeast (Budding) Moderate H Crossmatch See Detail Assessment and Plan Assessment: This is an 78-year-old woman who was sent from her [facility] for altered mental status. She was found to be in acute urinary tract infection, she has acute kidney injury on chronic kidney insufficiency and pending to have dialysis, she have worsening of anemia and is getting blood transfusion, she has elevated bilirubin and appears jaundice, and the 2D echo shows moderate to large posterior pericardial effusion Mental status due to toxic metabolic encephalopathy. Has elevated bilirubin and appears jaundice, acute kidney injury, as well as septic encephalopathy from acute UTI. Had CT of the head which is unremarkable. Acute urinary tract infection Transaminitis with elevated bilirubin Significant anemia and is getting dialysis Moderate to large pericardial effusion Plan: I will get a repeat CT of the head The patient continues to be confused by tomorrow I will obtain an EEG but again this seems more toxic metabolic and unlikely seizure. Will to get EEG today since the patient is can get dialysis Will defer the rest of the medical management to primary and other specialist Overall condition is critical and prognosis appears poor Plan discussed with the patient's who is at bedside as well as her nurse Thank you for the consultation. Time with Patient: Greater than 30
[2023-11-04 15:36] LABS: Hepatitis B Surface Antigen Nonreactive (Nonreactive)
[2023-11-04 16:15] LABS: Hepatitis B Surface AB- Quant 3.5 mIU/mL
--- NOTE | 2023-11-04 17:00 | P.PN ---
Subjective Progress Note Date: 11/04/23 Patient is a 78-year-old female with a past medical history of hypertension, atrial fibrillation not on anticoagulation due to recent GI bleed, hypertension, osteoarthritis, HFpEF, previous history of gastric perforation, inclusion body myositis and chronic right lower extremity wound. Patient also has right ear hearing loss. Patient was recently discharged from the hospital on 10/25/2023 to [facility]. She was admitted to hospital due to acute upper GI bleed with dark stools and is status post EGD showed no active bleeding. Patient was sent to ER due to altered mental status and also hypotensive at the facility. Patient's noticed earlier in the day that she did not seem like her usual self. On admission patient was hypotensive with blood pressure 84/47 pulse is 58 respiration 22 and pulse ox 97% on room air. Patient is able to open her but could not communicate. Eyes and tracks but unable to communi mio. On admission chest x-ray showed cardiomegaly with mild vascular congestion. CT head showed no acute hemorrhage, hydrocephalus or mass effect. EKG showed sinus bradycardia with marked sinus arrhythmia CT of the abdominal pelvis showed features of anasarca. Heterogenicity throu ghout. Correlate with ultrasound. Small amount of ascites as well as bilateral pleural effusions and compressive atelectasis. Foot x-ray showed there is no acute fracture or dislocation. Patient was hypotensive despite fluid boluses. Patient was also hypothermic and bradycardic. She was transferred to MICU for pressor support. Laboratory data showed WBC 8.4 hemoglobin 7.7 and platelets 50 baseline hemoglobin level around 8.0 INR 2.1 Sodium 136 potassium 4.4 chloride 112, BUN 100 and creatinine 3.39, lactic acid 2.6 Magnesium 1.8 total bili 3.0 AST 66 alk phos 149 troponin 0.019 and proBNP 5970 and Pro-Alvin 0.16 Urinalysis showed turbid with 2+ protein and large leukocyte esterase with dilia vated RBCs and WBCs. 11/02/2023 Patient is in the MICU. Mentation remains the same and patient is still confused. Able to open her eyes. Currently on 2 3 L oxygen via nasal cannula. Patient has only minimal urine output. Continued on bicarb drip (per hour. Pressor support with vasopressin and norepinephrine. Patient is being continued on antibiotics daptomycin and cefepime IV. Urine culture showed group D Enterococcus. Chest x-ray showed unchanged cardiopulmonary status, correlate for CHF/fluid overload. Superimposed infection should be excluded clinically. WBC 16.8 hemoglobin 7.5 and platelets 53 sodium 137 potassium 4.3 chloride 103 bicarb is 14 BUN 93 creatinine 3.38 and blood sugar 89 calcium 7.8 total bili 4.0 AST 87 ALT 41 alk phos 139 and albumin 1.8 11/03/2023 Patient is in the MICU. Mental status remains the same. Patient is able to turn her head with upper stimuli. Patient is also hypothermic and is on beta- breanne. Currently requiring 2 L oxygen via nasal cannula. Otherwise patient remains on bicarb drip and is also pressor support. Patient admitted to the near with wide-complex tachycardia likely supra ventricular tachycardia. Patient was started on amiodarone drip. Remains on antibiotics with cefepime and daptomycin. Patient was also started on Lasix 80 mg IV twice daily Patient has very minimal urine output. Nephrology recommending replacement the rapy. Pulmonary, cardiology and ID is on board. Laboratory test showed WBC 16.9 hemoglobin 7.1 and platelets 45 sodium 137 potassium 4.1 chloride 110 bicarb is 13 BUN 91 creatinine 3.62 and blood sugar 113 calcium 7.1 magnesium 1.4 AST 84 ALT 1836 and alk phos 126 and albumin 2.0. Current medications reviewed. 11/04/2023 Patient is seen in follow-up today remains in the ICU with multiple medical consultations following. Vascular surgery being consulted for emergent dialysis catheter as would like to proceed with hemodialysis. Current creatinine is 3.56 with a BUN of 87, total bili is noted to be 5.9. Hemoglobin was found to be 5.8 this morning with a platelets of 32 and is being transfused 2 units and recommend follow-up labs. Patient remains on Beatriz hugger and core temp 93. 6. Patient continues with local wound care of the right lower extremity and infectious diseases following with concerns of possible urinary tract infection. Urine finalized with group D Enterococcus and is currently maintained on daptomycin along with cefepime. Patient continues to require pressor support and vasopressin with overall extremely poor and guarded prognosis. Review of systems: Unable to completely assess as patient is lethargic Active Medications Albuterol Sulfate (Albuterol Nebulized 2.5 Mg/3 Ml) 2.5 mg INHALATION RT-Q4H PRN PRN Reason: Shortness Of Breath Last Admin: 11/03/23 15:20 Dose: 2.5 mg Collagenase (Collagenase 250 Unit/Gm Ointment 30 Gm Tube) 1 applic TOPICAL DAILY MEÑO; Protocol Last Admin: 11/04/23 08:12 Dose: 1 applic Famotidine (Famotidine 20 Mg/2 Ml Vial) 20 mg IV DAILY MEÑO Last Admin: 11/04/23 08:12 Dose: 20 mg Furosemide (Furosemide 10 Mg/Ml 10 Ml Vial) 80 mg IV BID MEÑO Last Admin: 11/04/23 08:11 Dose: 80 mg Norepinephrine Bitartrate 8 mg (/ Sodium Chloride) 258 mls @ 5.266 mls/hr IV .Q24H ME[facility]; Protocol Last Titration: 11/04/23 09:33 Dose: 0.07 mcg/kg/min, 12.288 mls/hr Daptomycin 300 mg/ Sodium (Chloride) 50 mls @ 100 mls/hr IVPB Q48H ME[facility]; Protocol Last Admin: 11/03/23 14:03 Dose: 100 mls/hr Cefepime HCl 1 gm/ Sodium (Chloride) 50 mls @ 12.5 mls/hr IVPB Q12HR ME[facility]O Last Admin: 11/04/23 08:11 Dose: 12.5 mls/hr Vasopressin 60 unit/ Sodium (Chloride) 153 mls @ 4.59 mls/hr IV .Q24H [facility]; Protocol Last Admin: 11/04/23 04:07 Dose: 0.03 units/min, 4.59 mls/hr Miscellaneous Information (Magnesium Replacement Protocol 1 Each Misc) 1 each MISCELLANE DAILY PRN; Protocol PRN Reason: Per Protocol Ondansetron HCl (Ondansetron 4 Mg/2 Ml Vial) 4 mg IVP Q6HR PRN PRN Reason: Nausea And Vomiting Last Admin: 11/02/23 04:55 Dose: 4 mg PHYSICAL EXAMINATION: Patient is lying in the bed. Patient is unresponsive and unable to communicate. Extremely ill-appearing, elderly appearing, obese HEENT: Normocephalic. Neck is supple. Pupils reactive. Nostrils clear. Oral cavity is moist. Neck reveals no JVD, carotid bruits, or thyromegaly. CHEST EXAMINATION: Trachea is central. Symmetrical expansion. Bibasilar diminished sounds with significant congestion noted. CARDIAC: Normal S1, S2 with no gallops. No murmurs ABDOMEN: Soft. Bowel sounds normal. No organomegaly. No abdominal bruits. Extremities: Bilateral 2+ edema with right lower extremity wound on the lateral side. No purulent discharge noted.. No clubbing or cyanosis Neurologically patient is awake alert and oriented x 0. Minimally responsive Skin: No rash. Skin lesions as above. Psychiatric: Could not be assessed. Musculoskeletal: No joint swelling or deformity. Assessment: Acute hypotension and sepsis/septic shock due to UTI and right lower extremity wound with cellulitis, present on admission requiring pressor support Group D Enterococcus urinary tract infection, present on admission Altered mental status with metabolic encephalopathy and infection Acute on chronic renal disease due to ATN secondary to hypotension. Creatinine 3.39 on admission baseline creatinine level around 3. Requiring hemodialysis-to be initiated. Status post hemodialysis catheter placement today 11/04/2023 Wide-complex tachy arrhythmia. New onset Recent history of GI bleed status post EGD showed no active bleeding. Patient was discharged to ECF on 10/25/2023 baseline hemoglobin around 8.0 CKD stage IIIb Chronic right lower extremity wound with history of debridement Chronic CHF with preserved ejection fraction Paroxysmal atrial fibrillation not on anticoagulation due to recent GI bleed History of gastric perforation with diagnostic laparoscopic repair on 05/26/2023 History of inclusion body myositis Obesity BMI 32.3 Bronchial asthma not in exacerbation Medical debility and bedridden at the senior living Chronic thrombocytopenia with platelet count 32 K Coagulopathy with INR 2.1 on admission Transaminitis Right ear hearing loss Obesity with a BMI of 34.4 DVT prophylaxis GI prophylaxis No code Plan: Patient is in the MICU. Patient will be continued on IV hydration currently bicarb drip. Continue with pressor support. Patient emergently receiving a hemodialysis catheter with vascular surgery today to initiate dialysis Patient was started on amiodarone drip due to wide-complex tachyarrhythmia. Continue broad-spectrum antibiotics daptomycin and cefepime. Urine culture showed group D Enterococcus. Infectious disease following Blood pressure medications Lasix and metoprolol on hold. Patient remains hypothermic and on the Beatriz hugger Continue to monitor H&H and continue with PPI CT of the abdomen pelvis showed small amount of ascites and bilateral pleural effusions. Patient has very minimal urine output. Continue indwelling Hester catheter for monitoring of output Continue to monitor renal function and follow-up closely. Pulmonary and nephrology is on board. Nephrology is recommending renal replacement therapy. is agreeable and again hemodialysis being initiated today. Patient has received a dialysis catheter with vascular surgery Hemoglobin noted to be 5.8 today and platelets are 32, awaiting to receive 2 units of PRBC Prognosis is extremely poor and guarded at this time due to multiple medical comorbidities. Patient has had multiple hospitalizations over the last few months and continues to show progressive decline on each of these hospitalizations. CODE STATUS was addressed and initially patient's wanted her to remain full code although is agreeable to no code at this time Again overall prognosis is extremely poor The impression and plan of care has been dictated by Kailey Bates, Nurse Practitioner as directed. Dr. Irwin MD I have performed a history and examination and MDM of this patient, discussed the same with the dictator, and agree with the dictator's assessment and plan as written ,documented as a scribe. Based on total visit time, I have performed more than 50% of the visit. Objective - Vital Signs Vital signs: Vital Signs Temp 93.4 F L 11/04/23 10:34 Pulse 105 H 11/04/23 10:33 Resp 16 11/04/23 10:33 BP 108/57 11/04/23 10:33 Pulse Ox 97 11/04/23 10:33 FiO2 Intake & Output 11/03/23 11/04/23 11/04/23 18:59 06:59 18:59 Intake Total 1837.31 2259.357 758.758 Output Total 35 5 0 Balance 1802.31 2254.357 758.758 Weight 96.8 kg Intake: IV 1470 1370 730 .9 @ KVO 220 220 80 Albumin Human 25% 50 ml 50 150 In Empty Bag 1 bag @ 50 mls/hr IVPB Q1H [facility] Rx#: [id number] Cefepime 1 gm In Sodium 100 50 Chloride 0.9% 50 ml @ 12. 5 mls/hr IVPB Q12HR [facility] Rx#:[id number] Dextrose 5% in Water 1, 1100 1000 400 000 ml @ 100 mls/hr IV . [id number] ME[facility] with Sodium Bicarb (1 Meq/ml) 150 ml Rx#:[id number] Magnesium Sulfate-D5w Pmx 100 1 gm In Dextrose/Water 1 100ml.bag @ 100 mls/hr IVPB ONCE ONE Rx#: [id number] Potassium Chloride 20 meq 100 In Water For Injection 1 100ml.bag @ 50 mls/hr IVPB ONCE STA Rx#: [id number] Intake, IV Titration 367.31 889.357 28.758 Amount Albumin Human 25% 50 ml 50 In Empty Bag 1 bag @ 50 mls/hr IVPB Q1H [facility] Rx#: [id number] Amiodarone 450 mg In 250 Dextrose 5% in Water 250 ml @ 0.5 MG/MIN 16.667 mls/hr IV .Q15H [facility] Rx#: [id number] Cefepime 1 gm In Sodium 100 Chloride 0.9% 50 ml @ 12. 5 mls/hr IVPB Q12HR [facility] Rx#:[id number] Norepinephrine 8 mg In 245.93 457.737 28.758 Sodium Chloride 0.9% 250 ml @ 0.03 MCG/KG/MIN 5. 266 mls/hr IV .Q24H [facility] Rx#:[id number] Vasopressin 60 unit In 121.38 31.62 Sodium Chloride 0.9% 150 ml @ 0.03 UNITS/MIN 4.59 mls/hr IV .Q24H [facility] Rx#: [id number] Blood Product 0 Rc As-1 Unit 0 [id number] Output: Urine 35 5 0 Other: Voiding Method Indwelling Catheter Indwelling Catheter Indwelling Catheter - Labs CBC & Chem 7: 11/04/23 07:30 11/04/23 07:30 Labs: Abnormal Lab Results - Last 24 Hours (Table) 11/02/23 11/03/23 11/03/23 Range/Units 03:11 16:24 18:15 RBC (3.80-5.40) m/uL Hgb (11.4-16.0) gm/dL Hct (34.0-46.0) % RDW (11.5-15.5) % Plt Count (150-450) k/uL Pathologist Review See comment A ABG pO2 (83-108) mmHg ABG O2 Saturation (94-97) % BUN (7-17) mg/dL Creatinine (0.52-1.04) mg/dL Glucose (74-99) mg/dL POC Glucose (mg/dL) 149 H 128 H (70-110) mg/dL Calcium (8.4-10.2) mg/dL Total Bilirubin (0.2-1.3) mg/dL AST (14-36) U/L Total Protein (6.3-8.2) g/dL Albumin (3.5-5.0) g/dL Crossmatch 11/04/23 11/04/23 11/04/23 Range/Units 07:30 07:30 08:05 RBC 1.88 L (3.80-5.40) m/uL Hgb 5.8 L* (11.4-16.0) gm/dL Hct 18.2 L* (34.0-46.0) % RDW 25.0 H (11.5-15.5) % Plt Count 32 L (150-450) k/uL Pathologist Review ABG pO2 (83-108) mmHg ABG O2 Saturation (94-97) % BUN 87 H (7-17) mg/dL Creatinine 3.56 H (0.52-1.04) mg/dL Glucose 117 H (74-99) mg/dL POC Glucose (mg/dL) (70-110) mg/dL Calcium 6.8 L (8.4-10.2) mg/dL Total Bilirubin 5.9 H (0.2-1.3) mg/dL AST 54 H (14-36) U/L Total Protein 4.9 L (6.3-8.2) g/dL Albumin 2.5 L (3.5-5.0) g/dL Crossmatch See Detail 11/04/23 Range/Units 09:14 RBC (3.80-5.40) m/uL Hgb (11.4-16.0) gm/dL Hct (34.0-46.0) % RDW (11.5-15.5) % Plt Count (150-450) k/uL Pathologist Review ABG pO2 121 H (83-108) mmHg ABG O2 Saturation 99.6 H (94-97) % BUN (7-17) mg/dL Creatinine (0.52-1.04) mg/dL Glucose (74-99) mg/dL POC Glucose (mg/dL) (70-110) mg/dL Calcium (8.4-10.2) mg/dL Total Bilirubin (0.2-1.3) mg/dL AST (14-36) U/L Total Protein (6.3-8.2) g/dL Albumin (3.5-5.0) g/dL Crossmatch Microbiology - Last 24 Hours (Table) 11/01/23 00:45 Blood Culture - Preliminary Blood 11/01/23 00:30 Blood Culture - Preliminary Blood 11/01/23 00:44 Urine Culture - Final Urine,Catheterized Group D Enterococcus
[2023-11-04 17:57] LABS: Glucose,Whole Blood 98 mg/dL (70-110)
[2023-11-04 18:09] LABS: Anisocytosis Moderate; HCT 27.7 % (34.0-46.0); MCH 31.6 pg (25.0-35.0); MCHC 33.7 g/dL (31.0-37.0); MCV 93.9 fL (80.0-100.0); Macrocytosis Slight; Mean Platelet Volume 11.7; Poikilocytosis Slight; RBC 2.95 m/uL (3.80-5.40); RDW 21.1 % (11.5-15.5); WBC 9.7 k/uL (3.8-10.6)
[2023-11-04 18:12] LABS: HGB 9.3 gm/dL (11.4-16.0)
[2023-11-04 18:13] LABS: Platelet Count 25 k/uL (150-450)
[2023-11-04 22:59] LABS: Glucose,Whole Blood 66 mg/dL (70-110)
[2023-11-04] MEDS: DEXTROSE 50% SYRINGE 50 ML IVP STA (23:11)
[2023-11-04 23:28] LABS: Glucose,Whole Blood 210 mg/dL (70-110)
[2023-11-05 05:56] LABS: Anisocytosis Moderate; HCT 28.7 % (34.0-46.0); HGB 9.4 gm/dL (11.4-16.0); Hypochromasia Slight; MCHC 32.6 g/dL (31.0-37.0); MCV 94.9 fL (80.0-100.0); Macrocytosis Slight; Mean Platelet Volume 10.2; Poikilocytosis Slight; RBC 3.02 m/uL (3.80-5.40); RDW 21.9 % (11.5-15.5); WBC 11.6 k/uL (3.8-10.6)
[2023-11-05 06:01] LABS: Glucose,Whole Blood 56 mg/dL (70-110)
[2023-11-05 06:02] LABS: Platelet Count 25 k/uL (150-450)
[2023-11-05 06:15] LABS: ALT 29 U/L (4-34); AST 55 U/L (14-36); African American GFR (CKD) 18 (>60 ml/min/1.73 sqM); Albumin 2.6 g/dL (3.5-5.0); Alkaline Phosphatase 127 U/L (38-126); Anion Gap 13 mmol/L; Blood Urea Nitrogen 59 mg/dL (7-17); Calcium 7.5 mg/dL (8.4-10.2); Carbon Dioxide 22 mmol/L (22-30); Chloride 101 mmol/L (98-107); Glucose 55 mg/dL (74-99); Non-African American GFR(CKD) 16 (>60 ml/min/1.73 sqM); Potassium 3.6 mmol/L (3.5-5.1); Sodium 136 mmol/L (137-145); Total Bilirubin 8.2 mg/dL (0.2-1.3); Total Protein 5.1 g/dL (6.3-8.2)
[2023-11-05 06:26] LABS: Glucose,Whole Blood 141 mg/dL (70-110)
--- NOTE | 2023-11-05 07:35 | P.PN ---
Subjective Progress Note Date: 11/05/23 PROGRESS NOTE The patient is an 78-year-old female with a prior history of cardiomyopathy that recovered by echocardiogram in July, history of hypertension, diabetes who presented with GI bleeding and acute on chronic anemia in the past admitted this time with change in mental status, septic shock and acute renal injury. She had an episode of wide-complex tachycardia, probably supraventricular tachycardia with aberrancy. She was started on IV amiodarone, she is in sinus mechanism with first-degree block at this time and intraventricular conduction delay. She is on vasopressor. She is nonverbal, not following command. She continues to be anuric and has been evaluated to undergo hemodialysis today. November 04: The patient is unresponsive, in atrial fibrillation with controlled ventricular response. She had removal of 500 cc through dialysis yesterday. Hemodynamically she is unstable on vasopressors. She has no urinary output. Her platelet count is down to 25,000. According to the nursing staff she is DNR with possible evaluation for comfort care. She had an echo that showed an ejection fraction of 40 to 45% with moderate to large loculated posterior pericardial effusion. Medications: Cefepime, Lasix 80 mg IV every 12 hours, sodium bicarb, norepinephrine, IV Pepcid PHYSICAL EXAMINATION: Blood pressure 90/50 heart rate 100, nonverbal, not following command LUNGS: Scattered rhonchi HEART: Irregular rate and rhythm, S1, S2. No S3. Systolic ejection murmur, 2/6 ABDOMEN: Soft, nontender, no organomegaly EXTREMETIES: +1 edema LAB: BUN 59, creatinine 2.78, hemoglobin 9.4, WBC 11.6, platelets 25,000. Total bilirubin 8.2. IMPRESSION: 1. Septic shock with urine growing group D Enterococcus 2. Acute renal injury with anuria, postdialysis yesterday 3. Worsening liver failure with elevated bilirubin 4. Paroxysmal atrial fibrillation, patient not a candidate for anticoagulation in view of the severe thrombocytopenia 5. Anemia with severe thrombocytopenia 6. Cardiomyopathy with loculated pericardial effusion 7. Change in mental status related to sepsis PLAN: 1. Prognosis very poor 2. Await decision regarding comfort care and possible hospice care Objective - Vital Signs Vital signs: Vital Signs Temp 95.5 F L 11/05/23 06:00 Pulse 100 11/05/23 07:00 Resp 16 11/05/23 07:00 BP 90/54 11/05/23 07:00 Pulse Ox 100 11/05/23 07:00 FiO2 Intake & Output 11/04/23 11/05/23 11/05/23 18:59 06:59 18:59 Intake Total 2785.979 463.017 10 Output Total 1035 25 0 Balance 1750.979 438.017 10 Weight 91.5 kg Intake: IV 1580 170 10 .9 @ KVO 230 120 10 Cefepime 1 gm In Sodium 50 50 Chloride 0.9% 50 ml @ 12. 5 mls/hr IVPB Q12HR [facility] Rx#:[id number] Dextrose 5% in Water 1, 1100 000 ml @ 100 mls/hr IV . [id number] [facility] with Sodium Bicarb (1 Meq/ml) 150 ml Rx#:[id number] Magnesium Sulfate-D5w Pmx 100 1 gm In Dextrose/Water 1 100ml.bag @ 100 mls/hr IVPB ONCE ONE Rx#: [id number] Potassium Chloride 20 meq 100 In Water For Injection 1 100ml.bag @ 50 mls/hr IVPB ONCE STA Rx#: [id number] Intake, IV Titration 111.979 293.017 Amount Norepinephrine 8 mg In 111.979 185.075 Sodium Chloride 0.9% 250 ml @ 0.03 MCG/KG/MIN 5. 266 mls/hr IV .Q24H [facility] Rx#:[id number] Vasopressin 60 unit In 107.942 Sodium Chloride 0.9% 150 ml @ 0.03 UNITS/MIN 4.59 mls/hr IV .Q24H [facility] Rx#: [id number] Blood Product 594 Rc As-1 Unit 310 [id number] Rc Pheresis As-3 Unit 284 [id number] Hemodialysis 500 Output: Urine 35 25 0 Hemodialysis 1000 Other: Voiding Method Indwelling Catheter Indwelling Catheter # Bowel Movements 1 - Labs CBC & Chem 7: 11/05/23 05:32 11/05/23 05:32 Labs: Abnormal Lab Results - Last 24 Hours (Table) 11/02/23 11/04/23 11/04/23 Range/Units 03:11 07:30 07:30 WBC (3.8-10.6) k/uL RBC 1.88 L (3.80-5.40) m/uL Hgb 5.8 L* (11.4-16.0) gm/dL Hct 18.2 L* (34.0-46.0) % RDW 25.0 H (11.5-15.5) % Plt Count 32 L (150-450) k/uL Pathologist Review See comment A ABG pO2 (83-108) mmHg ABG O2 Saturation (94-97) % Sodium (137-145) mmol/L BUN 87 H (7-17) mg/dL Creatinine 3.56 H (0.52-1.04) mg/dL Glucose 117 H (74-99) mg/dL POC Glucose (mg/dL) (70-110) mg/dL Calcium 6.8 L (8.4-10.2) mg/dL Total Bilirubin 5.9 H (0.2-1.3) mg/dL AST 54 H (14-36) U/L Alkaline Phosphatase (38-126) U/L Total Protein 4.9 L (6.3-8.2) g/dL Albumin 2.5 L (3.5-5.0) g/dL Urine Appearance (Clear) Urine Protein (Negative) Urine Ketones (Negative) Urine Blood (Negative) Ur Leukocyte Esterase (Negative) Urine RBC (0-5) /hpf Urine WBC (0-5) /hpf Urine Bacteria (None) /hpf Urine Yeast (Budding) (None) /hpf Crossmatch 11/04/23 11/04/23 11/04/23 Range/Units 08:05 09:14 11:23 WBC (3.8-10.6) k/uL RBC (3.80-5.40) m/uL Hgb (11.4-16.0) gm/dL Hct (34.0-46.0) % RDW (11.5-15.5) % Plt Count (150-450) k/uL Pathologist Review ABG pO2 121 H (83-108) mmHg ABG O2 Saturation 99.6 H (94-97) % Sodium (137-145) mmol/L BUN (7-17) mg/dL Creatinine (0.52-1.04) mg/dL Glucose (74-99) mg/dL POC Glucose (mg/dL) (70-110) mg/dL Calcium (8.4-10.2) mg/dL Total Bilirubin (0.2-1.3) mg/dL AST (14-36) U/L Alkaline Phosphatase (38-126) U/L Total Protein (6.3-8.2) g/dL Albumin (3.5-5.0) g/dL Urine Appearance Turbid H (Clear) Urine Protein 2+ H (Negative) Urine Ketones Trace H (Negative) Urine Blood Large H (Negative) Ur Leukocyte Esterase Large H (Negative) Urine RBC >182 H (0-5) /hpf Urine WBC >182 H (0-5) /hpf Urine Bacteria Occasional H (None) /hpf Urine Yeast (Budding) Moderate H (None) /hpf Crossmatch See Detail 11/04/23 11/04/23 11/04/23 Range/Units 17:52 22:57 23:14 WBC (3.8-10.6) k/uL RBC 2.95 L (3.80-5.40) m/uL Hgb 9.3 L D (11.4-16.0) gm/dL Hct 27.7 L (34.0-46.0) % RDW 21.1 H (11.5-15.5) % Plt Count 25 L (150-450) k/uL Pathologist Review ABG pO2 (83-108) mmHg ABG O2 Saturation (94-97) % Sodium (137-145) mmol/L BUN (7-17) mg/dL Creatinine (0.52-1.04) mg/dL Glucose (74-99) mg/dL POC Glucose (mg/dL) 66 L 210 H (70-110) mg/dL Calcium (8.4-10.2) mg/dL Total Bilirubin (0.2-1.3) mg/dL AST (14-36) U/L Alkaline Phosphatase (38-126) U/L Total Protein (6.3-8.2) g/dL Albumin (3.5-5.0) g/dL Urine Appearance (Clear) Urine Protein (Negative) Urine Ketones (Negative) Urine Blood (Negative) Ur Leukocyte Esterase (Negative) Urine RBC (0-5) /hpf Urine WBC (0-5) /hpf Urine Bacteria (None) /hpf Urine Yeast (Budding) (None) /hpf Crossmatch 11/05/23 11/05/23 11/05/23 Range/Units 05:32 05:32 05:58 WBC 11.6 H (3.8-10.6) k/uL RBC 3.02 L (3.80-5.40) m/uL Hgb 9.4 L (11.4-16.0) gm/dL Hct 28.7 L (34.0-46.0) % RDW 21.9 H (11.5-15.5) % Plt Count 25 L (150-450) k/uL Pathologist Review ABG pO2 (83-108) mmHg ABG O2 Saturation (94-97) % Sodium 136 L (137-145) mmol/L BUN 59 H (7-17) mg/dL Creatinine 2.78 H (0.52-1.04) mg/dL Glucose 55 L (74-99) mg/dL POC Glucose (mg/dL) 56 L (70-110) mg/dL Calcium 7.5 L (8.4-10.2) mg/dL Total Bilirubin 8.2 H (0.2-1.3) mg/dL AST 55 H (14-36) U/L Alkaline Phosphatase 127 H (38-126) U/L Total Protein 5.1 L (6.3-8.2) g/dL Albumin 2.6 L (3.5-5.0) g/dL Urine Appearance (Clear) Urine Protein (Negative) Urine Ketones (Negative) Urine Blood (Negative) Ur Leukocyte Esterase (Negative) Urine RBC (0-5) /hpf Urine WBC (0-5) /hpf Urine Bacteria (None) /hpf Urine Yeast (Budding) (None) /hpf Crossmatch 11/05/23 Range/Units 06:25 WBC (3.8-10.6) k/uL RBC (3.80-5.40) m/uL Hgb (11.4-16.0) gm/dL Hct (34.0-46.0) % RDW (11.5-15.5) % Plt Count (150-450) k/uL Pathologist Review ABG pO2 (83-108) mmHg ABG O2 Saturation (94-97) % Sodium (137-145) mmol/L BUN (7-17) mg/dL Creatinine (0.52-1.04) mg/dL Glucose (74-99) mg/dL POC Glucose (mg/dL) 141 H (70-110) mg/dL Calcium (8.4-10.2) mg/dL Total Bilirubin (0.2-1.3) mg/dL AST (14-36) U/L Alkaline Phosphatase (38-126) U/L Total Protein (6.3-8.2) g/dL Albumin (3.5-5.0) g/dL Urine Appearance (Clear) Urine Protein (Negative) Urine Ketones (Negative) Urine Blood (Negative) Ur Leukocyte Esterase (Negative) Urine RBC (0-5) /hpf Urine WBC (0-5) /hpf Urine Bacteria (None) /hpf Urine Yeast (Budding) (None) /hpf Crossmatch Microbiology - Last 24 Hours (Table) 11/01/23 00:45 Blood Culture - Preliminary Blood 11/01/23 00:30 Blood Culture - Preliminary Blood
--- NOTE | 2023-11-05 08:58 | P.PN ---
Subjective Progress Note Date: 11/04/23 Principal diagnosis: Reason for follow-up is sepsis Patient is a 78-year-old female with a past medical history significant for heart failure hypertension osteoarthritis lower extremity cellulitis recently admitted to this facility and treated for possible UTI patient was stabilized and discharged to the local long term patient has been brought back to the ER after midnight for evaluation of mental status changes and hypotension as well as hypothermia requiring admission to the ICU. On today's visit that is 11/04/2023, the patient is hypothermic requiring warm ing blanket patient is requiring pressor support however less than yesterday as reported by the nursing staff patient is currently on 3 L nasal cannula oxygen vascular surgery consulted for dialysis catheter placement and planning for hemodialysis no diarrhea has been reported. Patient white count is 9.7 creatinine 3.56 culture with group D Enterococcus Objective - Vital Signs Vital signs: Vital Signs Temp 93.6 F L 11/04/23 12:28 Pulse 96 11/04/23 12:30 Resp 20 11/04/23 12:30 BP 106/64 11/04/23 12:30 Pulse Ox 97 11/04/23 12:30 FiO2 Intake & Output 11/03/23 11/04/23 11/04/23 18:59 06:59 18:59 Intake Total 1837.31 2259.357 1218.263 Output Total 35 5 30 Balance 1802.31 2254.357 1188.263 Weight 96.8 kg Intake: IV 1470 1370 850 .9 @ KVO 220 220 100 Albumin Human 25% 50 ml 50 150 In Empty Bag 1 bag @ 50 mls/hr IVPB Q1H [facility] Rx#: [id number] Cefepime 1 gm In Sodium 100 50 Chloride 0.9% 50 ml @ 12. 5 mls/hr IVPB Q12HR [facility] Rx#:[id number] Dextrose 5% in Water 1, 1100 1000 500 000 ml @ 100 mls/hr IV . [id number] [facility] with Sodium Bicarb (1 Meq/ml) 150 ml Rx#:[id number] Magnesium Sulfate-D5w Pmx 100 1 gm In Dextrose/Water 1 100ml.bag @ 100 mls/hr IVPB ONCE ONE Rx#: [id number] Potassium Chloride 20 meq 100 In Water For Injection 1 100ml.bag @ 50 mls/hr IVPB ONCE STA Rx#: [id number] Intake, IV Titration 367.31 889.357 58.263 Amount Albumin Human 25% 50 ml 50 In Empty Bag 1 bag @ 50 mls/hr IVPB Q1H [facility] Rx#: [id number] Amiodarone 450 mg In 250 Dextrose 5% in Water 250 ml @ 0.5 MG/MIN 16.667 mls/hr IV .Q15H [facility] Rx#: [id number] Cefepime 1 gm In Sodium 100 Chloride 0.9% 50 ml @ 12. 5 mls/hr IVPB Q12HR [facility] Rx#:[id number] Norepinephrine 8 mg In 245.93 457.737 58.263 Sodium Chloride 0.9% 250 ml @ 0.03 MCG/KG/MIN 5. 266 mls/hr IV .Q24H [facility] Rx#:[id number] Vasopressin 60 unit In 121.38 31.62 Sodium Chloride 0.9% 150 ml @ 0.03 UNITS/MIN 4.59 mls/hr IV .Q24H [facility] Rx#: [id number] Blood Product 310 Rc As-1 Unit 310 [id number] Output: Urine 35 5 30 Other: Voiding Method Indwelling Catheter Indwelling Catheter Indwelling Catheter - Exam GENERAL DESCRIPTION: An elderly female lying in bed in no distress RESPIRATORY SYSTEM: Unlabored breathing , decreased breath sounds at bases HEART: S1 S2 regular rate and rhythm , ABDOMEN: Soft , no tenderness EXTREMITIES: Right leg wound is currently dressed nursing staff mention overall less black tissue and no surrounding redness - Labs CBC & Chem 7: 11/05/23 05:32 11/05/23 05:32 Labs: Abnormal Lab Results - Last 24 Hours (Table) 11/02/23 11/03/23 11/03/23 Range/Units 03:11 16:24 18:15 RBC (3.80-5.40) m/uL Hgb (11.4-16.0) gm/dL Hct (34.0-46.0) % RDW (11.5-15.5) % Plt Count (150-450) k/uL Pathologist Review See comment A ABG pO2 (83-108) mmHg ABG O2 Saturation (94-97) % BUN (7-17) mg/dL Creatinine (0.52-1.04) mg/dL Glucose (74-99) mg/dL POC Glucose (mg/dL) 149 H 128 H (70-110) mg/dL Calcium (8.4-10.2) mg/dL Total Bilirubin (0.2-1.3) mg/dL AST (14-36) U/L Total Protein (6.3-8.2) g/dL Albumin (3.5-5.0) g/dL Urine Appearance (Clear) Urine Protein (Negative) Urine Ketones (Negative) Urine Blood (Negative) Ur Leukocyte Esterase (Negative) Urine RBC (0-5) /hpf Urine WBC (0-5) /hpf Urine Bacteria (None) /hpf Urine Yeast (Budding) (None) /hpf Crossmatch 11/04/23 11/04/23 11/04/23 Range/Units 07:30 07:30 08:05 RBC 1.88 L (3.80-5.40) m/uL Hgb 5.8 L* (11.4-16.0) gm/dL Hct 18.2 L* (34.0-46.0) % RDW 25.0 H (11.5-15.5) % Plt Count 32 L (150-450) k/uL Pathologist Review ABG pO2 (83-108) mmHg ABG O2 Saturation (94-97) % BUN 87 H (7-17) mg/dL Creatinine 3.56 H (0.52-1.04) mg/dL Glucose 117 H (74-99) mg/dL POC Glucose (mg/dL) (70-110) mg/dL Calcium 6.8 L (8.4-10.2) mg/dL Total Bilirubin 5.9 H (0.2-1.3) mg/dL AST 54 H (14-36) U/L Total Protein 4.9 L (6.3-8.2) g/dL Albumin 2.5 L (3.5-5.0) g/dL Urine Appearance (Clear) Urine Protein (Negative) Urine Ketones (Negative) Urine Blood (Negative) Ur Leukocyte Esterase (Negative) Urine RBC (0-5) /hpf Urine WBC (0-5) /hpf Urine Bacteria (None) /hpf Urine Yeast (Budding) (None) /hpf Crossmatch See Detail 11/04/23 11/04/23 Range/Units 09:14 11:23 RBC (3.80-5.40) m/uL Hgb (11.4-16.0) gm/dL Hct (34.0-46.0) % RDW (11.5-15.5) % Plt Count (150-450) k/uL Pathologist Review ABG pO2 121 H (83-108) mmHg ABG O2 Saturation 99.6 H (94-97) % BUN (7-17) mg/dL Creatinine (0.52-1.04) mg/dL Glucose (74-99) mg/dL POC Glucose (mg/dL) (70-110) mg/dL Calcium (8.4-10.2) mg/dL Total Bilirubin (0.2-1.3) mg/dL AST (14-36) U/L Total Protein (6.3-8.2) g/dL Albumin (3.5-5.0) g/dL Urine Appearance Turbid H (Clear) Urine Protein 2+ H (Negative) Urine Ketones Trace H (Negative) Urine Blood Large H (Negative) Ur Leukocyte Esterase Large H (Negative) Urine RBC >182 H (0-5) /hpf Urine WBC >182 H (0-5) /hpf Urine Bacteria Occasional H (None) /hpf Urine Yeast (Budding) Moderate H (None) /hpf Crossmatch Microbiology - Last 24 Hours (Table) 11/01/23 00:45 Blood Culture - Preliminary Blood 11/01/23 00:30 Blood Culture - Preliminary Blood 11/01/23 00:44 Urine Culture - Final Urine,Catheterized Group D Enterococcus Assessment and Plan (1) Sepsis Current Visit: No Status: Acute Code(s): A41.9 - SEPSIS, UNSPECIFIED ORGANISM SNOMED Code(s): 24608564 (2) UTI (urinary tract infection) Current Visit: No Status: Acute Code(s): N39.0 - URINARY TRACT INFECTION, SITE NOT SPECIFIED SNOMED Code(s): 46458301 Plan: 1patient was in the hospital with sepsis in this patient who did have hypothermia hypotension requiring pressor support with a source of sepsis could be UTI versus right lower extremity wound and cellulitis and the patient chest x-ray did not show any evidence of pneumonia CT abdominal pelvis did show some ascites but did not mention any colitis or abscess 2-patient with a penicillin allergy that will limit the number of antibiotics safe to use 3-renal insufficiency high risk of nephrotoxicity currently being getting ready for hemodialysis 4-blood culture currently pending urine is growing Enterococcus with sensitivities pending 5-patient to continue with cefepime and daptomycin and monitor clinical course closely Dictation was produced using [employer]ulse[employer] dictation software. please excuse any grammatical, word or spelling errors. Time with Patient: Less than 30
--- NOTE | 2023-11-05 10:43 | CT ---
EXAMINATION TYPE: CT brain wo con DATE OF EXAM: 11/05/2023 COMPARISON: 11/01/2023 INDICATION: CONFUSION, AMS. BEST POSSIBLE, PT IS INVOLUNTARILY MOVING AND SHAKING HEAD. ATTEMPTED TO USE IMMOBILIZATION TECHNIQUES DLP: 1164.5 mGycm, Automated exposure control for dose reduction was used. CONTRAST: None CT of the brain is performed utilizing 3 mm thick sections through the posterior fossa and 3 mm thick sections through the remaining calvarium. Study is performed within 24 hours of arrival to the hosp [facility]. No abnormal hyperdensity is present to suggest an acute intracranial hemorrhage. No mass lesion is evident. No acute infarcts are evident. Ventricles and sulci are appropriate for the patient age. There is a patent cavum septum lucidum and cavum vergae, normal variants. There is opacification of the left maxillary sinus with small air-fluid level. Correlate for acute le ft maxillary sinusitis. Remaining paranasal sinuses within the field of view are clear. IMPRESSION: 1. No acute intracranial process. Follow-up MRI can be performed as clinically indicated. 2. Clinical correlation recommended for acute left maxillary sinusitis
[2023-11-05 10:56] VITALS: BMI 32.5
--- NOTE | 2023-11-05 10:58 | P.PN ---
Subjective Patient is seen in follow-up for acute kidney injury on chronic kidney disease. Oliguric. On Levophed and vasopressin. Started on hemodialysis November 04, 2023. Has been tolerating dialysis treatments well. Vital signs -on vasopressor support. General: Lethargic. HEENT: On nasal cannula. LUNGS: Scattered rhonchi. HEART: Rate and Rhythm are regular. ABDOMEN: No distention. EXTREMITITES: Lower extremities wrapped. 2+ edema. Objective - Vital Signs Vital signs: Vital Signs Temp 35.4 F L 11/05/23 08:00 Pulse 106 H 11/05/23 09:15 Resp 17 11/05/23 09:15 BP 83/47 11/05/23 09:15 Pulse Ox 99 11/05/23 09:15 FiO2 Intake & Output 11/04/23 11/05/23 11/05/23 18:59 06:59 18:59 Intake Total 2785.979 463.017 20 Output Total 1035 25 15 Balance 1750.979 438.017 5 Weight 91.5 kg Intake: IV 1580 170 20 .9 @ KVO 230 120 20 Cefepime 1 gm In Sodium 50 50 Chloride 0.9% 50 ml @ 12. 5 mls/hr IVPB Q12HR [facility] Rx#:[id number] Dextrose 5% in Water 1, 1100 000 ml @ 100 mls/hr IV . [id number] [facility] with Sodium Bicarb (1 Meq/ml) 150 ml Rx#:[id number] Magnesium Sulfate-D5w Pmx 100 1 gm In Dextrose/Water 1 100ml.bag @ 100 mls/hr IVPB ONCE ONE Rx#: [id number] Potassium Chloride 20 meq 100 In Water For Injection 1 100ml.bag @ 50 mls/hr IVPB ONCE STA Rx#: [id number] Intake, IV Titration 111.979 293.017 Amount Norepinephrine 8 mg In 111.979 185.075 Sodium Chloride 0.9% 250 ml @ 0.03 MCG/KG/MIN 5. 266 mls/hr IV .Q24H [facility] Rx#:[id number] Vasopressin 60 unit In 107.942 Sodium Chloride 0.9% 150 ml @ 0.03 UNITS/MIN 4.59 mls/hr IV .Q24H [facility] Rx#: [id number] Blood Product 594 Rc As-1 Unit 310 [id number] Pheresis As-3 Unit 284 [id number] Hemodialysis 500 Output: Urine 35 25 15 Hemodialysis 1000 Other: Voiding Method Indwelling Catheter Indwelling Catheter Indwelling Catheter # Bowel Movements 1 - Labs CBC & Chem 7: 11/05/23 05:32 11/05/23 05:32 Labs: Abnormal Lab Results - Last 24 Hours (Table) 11/04/23 11/04/23 11/04/23 Range/Units 08:05 11:23 17:52 WBC (3.8-10.6) k/uL RBC 2.95 L (3.80-5.40) m/uL Hgb 9.3 L D (11.4-16.0) gm/dL Hct 27.7 L (34.0-46.0) % RDW 21.1 H (11.5-15.5) % Plt Count 25 L (150-450) k/uL Sodium (137-145) mmol/L BUN (7-17) mg/dL Creatinine (0.52-1.04) mg/dL Glucose (74-99) mg/dL POC Glucose (mg/dL) (70-110) mg/dL Calcium (8.4-10.2) mg/dL Total Bilirubin (0.2-1.3) mg/dL AST (14-36) U/L Alkaline Phosphatase (38-126) U/L Total Protein (6.3-8.2) g/dL Albumin (3.5-5.0) g/dL Urine Appearance Turbid H (Clear) Urine Protein 2+ H (Negative) Urine Ketones Trace H (Negative) Urine Blood Large H (Negative) Ur Leukocyte Esterase Large H (Negative) Urine RBC >182 H (0-5) /hpf Urine WBC >182 H (0-5) /hpf Urine Bacteria Occasional H (None) /hpf Urine Yeast (Budding) Moderate H (None) /hpf Crossmatch See Detail 11/04/23 11/04/23 11/05/23 Range/Units 22:57 23:14 05:32 WBC 11.6 H (3.8-10.6) k/uL RBC 3.02 L (3.80-5.40) m/uL Hgb 9.4 L (11.4-16.0) gm/dL Hct 28.7 L (34.0-46.0) % RDW 21.9 H (11.5-15.5) % Plt Count 25 L (150-450) k/uL Sodium (137-145) mmol/L BUN (7-17) mg/dL Creatinine (0.52-1.04) mg/dL Glucose (74-99) mg/dL POC Glucose (mg/dL) 66 L 210 H (70-110) mg/dL Calcium (8.4-10.2) mg/dL Total Bilirubin (0.2-1.3) mg/dL AST (14-36) U/L Alkaline Phosphatase (38-126) U/L Total Protein (6.3-8.2) g/dL Albumin (3.5-5.0) g/dL Urine Appearance (Clear) Urine Protein (Negative) Urine Ketones (Negative) Urine Blood (Negative) Ur Leukocyte Esterase (Negative) Urine RBC (0-5) /hpf Urine WBC (0-5) /hpf Urine Bacteria (None) /hpf Urine Yeast (Budding) (None) /hpf Crossmatch 11/05/23 11/05/23 11/05/23 Range/Units 05:32 05:58 06:25 WBC (3.8-10.6) k/uL RBC (3.80-5.40) m/uL Hgb (11.4-16.0) gm/dL Hct (34.0-46.0) % RDW (11.5-15.5) % Plt Count (150-450) k/uL Sodium 136 L (137-145) mmol/L BUN 59 H (7-17) mg/dL Creatinine 2.78 H (0.52-1.04) mg/dL Glucose 55 L (74-99) mg/dL POC Glucose (mg/dL) 56 L 141 H (70-110) mg/dL Calcium 7.5 L (8.4-10.2) mg/dL Total Bilirubin 8.2 H (0.2-1.3) mg/dL AST 55 H (14-36) U/L Alkaline Phosphatase 127 H (38-126) U/L Total Protein 5.1 L (6.3-8.2) g/dL Albumin 2.6 L (3.5-5.0) g/dL Urine Appearance (Clear) Urine Protein (Negative) Urine Ketones (Negative) Urine Blood (Negative) Ur Leukocyte Esterase (Negative) Urine RBC (0-5) /hpf Urine WBC (0-5) /hpf Urine Bacteria (None) /hpf Urine Yeast (Budding) (None) /hpf Crossmatch Assessment and Plan Plan: Assessment: 1. Acute kidney injury secondary to ATN secondary to septic shock. No obst ruction noted on CT. Oliguric. Started on hemodialysis November 04, 2023. Has temporary femoral dialysis access. 2. Chronic kidney disease stage IIIa with baseline creatinine in the range of 1-1.3 in August 2023. Recently creatinine has been in the range of 2-3. 3. Acute blood loss anemia status post blood transfusions this admission. Also received IV DDAVP. 4. Shock maintained on vasopressors. Urine culture positive for group D Enterococcus. On antibiotics. 5. Metabolic acidosis secondary to acute kidney injury. Improved with bicarb drip. 6. Volume overload. Plan: Currently seen while undergoing hemodialysis. Plan for another treatment tomorrow. Wean vasopressors. Avoid nephrotoxins. Check phosphorus level. Stop IV Lasix. Prognosis guarded.
--- NOTE | 2023-11-05 11:10 | P.PN ---
Subjective Progress Note Date: 11/05/23 Principal diagnosis: Acute renal failure requiring hemodialysis Patient is seen and examined in the ICU. She is currently undergoing hemodialysis. There is no complications or difficulty with HD treatment at this time. Objective - Vital Signs Vital signs: Vital Signs Temp 35.4 F L 11/05/23 08:00 Pulse 113 H 11/05/23 08:00 Resp 30 H 11/05/23 08:00 BP 116/94 11/05/23 08:00 Pulse Ox 98 11/05/23 08:00 FiO2 Intake & Output 11/04/23 11/05/23 11/05/23 18:59 06:59 18:59 Intake Total 2785.979 463.017 15 Output Total 1035 25 15 Balance 1750.979 438.017 0 Weight 91.5 kg Intake: IV 1580 170 15 .9 @ KVO 230 120 15 Cefepime 1 gm In Sodium 50 50 Chloride 0.9% 50 ml @ 12. 5 mls/hr IVPB Q12HR [facility] Rx#:[id number] Dextrose 5% in Water 1, 1100 000 ml @ 100 mls/hr IV . [id number] [facility] with Sodium Bicarb (1 Meq/ml) 150 ml Rx#:[id number] Magnesium Sulfate-D5w Pmx 100 1 gm In Dextrose/Water 1 100ml.bag @ 100 mls/hr IVPB ONCE ONE Rx#: [id number] Potassium Chloride 20 meq 100 In Water For Injection 1 100ml.bag @ 50 mls/hr IVPB ONCE STA Rx#: [id number] Intake, IV Titration 111.979 293.017 Amount Norepinephrine 8 mg In 111.979 185.075 Sodium Chloride 0.9% 250 ml @ 0.03 MCG/KG/MIN 5. 266 mls/hr IV .Q24H [facility] Rx#:[id number] Vasopressin 60 unit In 107.942 Sodium Chloride 0.9% 150 ml @ 0.03 UNITS/MIN 4.59 mls/hr IV .Q24H [facility] Rx#: [id number] Blood Product 594 Rc As-1 Unit 310 [id number] Rc Pheresis As-3 Unit 284 [id number] Hemodialysis 500 Output: Urine 35 25 15 Hemodialysis 1000 Other: Voiding Method Indwelling Catheter Indwelling Catheter Indwelling Catheter # Bowel Movements 1 - Exam General appearance: The patient is resting with her eyes closed. HET: Head is normocephalic and atraumatic. Neck: Supple. Abdomen: Soft, nondistended. Extremities: Normal skin color and turgor. Right groin with HD catheter in place with dressing, no bleeding noted. - Labs CBC & Chem 7: 11/05/23 05:32 11/05/23 05:32 Labs: Abnormal Lab Results - Last 24 Hours (Table) 11/02/23 11/04/23 11/04/23 Range/Units 03:11 08:05 09:14 WBC (3.8-10.6) k/uL RBC (3.80-5.40) m/uL Hgb (11.4-16.0) gm/dL Hct (34.0-46.0) % RDW (11.5-15.5) % Plt Count (150-450) k/uL Pathologist Review See comment A ABG pO2 121 H (83-108) mmHg ABG O2 Saturation 99.6 H (94-97) % Sodium (137-145) mmol/L BUN (7-17) mg/dL Creatinine (0.52-1.04) mg/dL Glucose (74-99) mg/dL POC Glucose (mg/dL) (70-110) mg/dL Calcium (8.4-10.2) mg/dL Total Bilirubin (0.2-1.3) mg/dL AST (14-36) U/L Alkaline Phosphatase (38-126) U/L Total Protein (6.3-8.2) g/dL Albumin (3.5-5.0) g/dL Urine Appearance (Clear) Urine Protein (Negative) Urine Ketones (Negative) Urine Blood (Negative) Ur Leukocyte Esterase (Negative) Urine RBC (0-5) /hpf Urine WBC (0-5) /hpf Urine Bacteria (None) /hpf Urine Yeast (Budding) (None) /hpf Crossmatch See Detail 11/04/23 11/04/23 11/04/23 Range/Units 11:23 17:52 22:57 WBC (3.8-10.6) k/uL RBC 2.95 L (3.80-5.40) m/uL Hgb 9.3 L D (11.4-16.0) gm/dL Hct 27.7 L (34.0-46.0) % RDW 21.1 H (11.5-15.5) % Plt Count 25 L (150-450) k/uL Pathologist Review ABG pO2 (83-108) mmHg ABG O2 Saturation (94-97) % Sodium (137-145) mmol/L BUN (7-17) mg/dL Creatinine (0.52-1.04) mg/dL Glucose (74-99) mg/dL POC Glucose (mg/dL) 66 L (70-110) mg/dL Calcium (8.4-10.2) mg/dL Total Bilirubin (0.2-1.3) mg/dL AST (14-36) U/L Alkaline Phosphatase (38-126) U/L Total Protein (6.3-8.2) g/dL Albumin (3.5-5.0) g/dL Urine Appearance Turbid H (Clear) Urine Protein 2+ H (Negative) Urine Ketones Trace H (Negative) Urine Blood Large H (Negative) Ur Leukocyte Esterase Large H (Negative) Urine RBC >182 H (0-5) /hpf Urine WBC >182 H (0-5) /hpf Urine Bacteria Occasional H (None) /hpf Urine Yeast (Budding) Moderate H (None) /hpf Crossmatch 11/04/23 11/05/23 11/05/23 Range/Units 23:14 05:32 05:32 WBC 11.6 H (3.8-10.6) k/uL RBC 3.02 L (3.80-5.40) m/uL Hgb 9.4 L (11.4-16.0) gm/dL Hct 28.7 L (34.0-46.0) % RDW 21.9 H (11.5-15.5) % Plt Count 25 L (150-450) k/uL Pathologist Review ABG pO2 (83-108) mmHg ABG O2 Saturation (94-97) % Sodium 136 L (137-145) mmol/L BUN 59 H (7-17) mg/dL Creatinine 2.78 H (0.52-1.04) mg/dL Glucose 55 L (74-99) mg/dL POC Glucose (mg/dL) 210 H (70-110) mg/dL Calcium 7.5 L (8.4-10.2) mg/dL Total Bilirubin 8.2 H (0.2-1.3) mg/dL AST 55 H (14-36) U/L Alkaline Phosphatase 127 H (38-126) U/L Total Protein 5.1 L (6.3-8.2) g/dL Albumin 2.6 L (3.5-5.0) g/dL Urine Appearance (Clear) Urine Protein (Negative) Urine Ketones (Negative) Urine Blood (Negative) Ur Leukocyte Esterase (Negative) Urine RBC (0-5) /hpf Urine WBC (0-5) /hpf Urine Bacteria (None) /hpf Urine Yeast (Budding) (None) /hpf Crossmatch 11/05/23 11/05/23 Range/Units 05:58 06:25 WBC (3.8-10.6) k/uL RBC (3.80-5.40) m/uL Hgb (11.4-16.0) gm/dL Hct (34.0-46.0) % RDW (11.5-15.5) % Plt Count (150-450) k/uL Pathologist Review ABG pO2 (83-108) mmHg ABG O2 Saturation (94-97) % Sodium (137-145) mmol/L BUN (7-17) mg/dL Creatinine (0.52-1.04) mg/dL Glucose (74-99) mg/dL POC Glucose (mg/dL) 56 L 141 H (70-110) mg/dL Calcium (8.4-10.2) mg/dL Total Bilirubin (0.2-1.3) mg/dL AST (14-36) U/L Alkaline Phosphatase (38-126) U/L Total Protein (6.3-8.2) g/dL Albumin (3.5-5.0) g/dL Urine Appearance (Clear) Urine Protein (Negative) Urine Ketones (Negative) Urine Blood (Negative) Ur Leukocyte Esterase (Negative) Urine RBC (0-5) /hpf Urine WBC (0-5) /hpf Urine Bacteria (None) /hpf Urine Yeast (Budding) (None) /hpf Crossmatch Microbiology - Last 24 Hours (Table) 11/01/23 00:45 Blood Culture - Preliminary Blood 11/01/23 00:30 Blood Culture - Preliminary Blood Assessment and Plan Assessment: 1. Acute kidney injury on chronic kidney disease requiring hemodialysis Plan: 1. Continue hemodialysis per recommendations from nephrology 2. Vascular surgery will be on standby if tunneled catheter needs to be placed, please contact us and we will happy to schedule patient for tunneled hemodialysis catheter placement Thank you for this consultation. The impression and plan of care has been dictated as directed. I performed a history and examination of this patient, discussed the same with the dictator. I agree with the dictator's note ,documented as a scribe. Any additional findings or plans will be noted.
--- NOTE | 2023-11-05 11:51 | P.PN ---
Subjective Progress Note Date: 11/05/23 Principal diagnosis: Septic shock Patient is an 78-year-old white female with past medical history significant for chronic bronchial asthma, heart failure with preserved ejection fraction, atrial fibrillation not currently on anticoagulation, GI bleed, previous cholecystitis status post laparoscopic cholecystectomy, previous gastric perforation, inclusion body myositis, chronic right lower extremity wound, among other things. She is very debilitated at baseline and has had multiple hospitalizations this year. She is currently a long-term resident. Of note, patient was just recently discharged from the hospital approximately 1 week ago. She was thought to have upper GI bleed. Underwent EGD on 10/23/2023 which did not find any active GI bleeding, there was mild antral gastritis and duodenitis but no evidence of peptic ulcer disease. Early this morning, she was sent in from her ECF for altered mental status. We were asked to evaluate this patient as she has been noted to be profoundly hypotensive refractory at initial attempts of fluid resuscitation of total 2 L normal saline bolus. Currently on norepinephrine infusion at 0.08 mcg/kg/min. She is also noted to be bradycardic and hypothermic. Initial temperature noted to be 84 F on arrival and is up to 90.7 F. External warming blanket on. She is currently in the emergency department, trauma bay 2. Her eyes are open, but she does not respond to any my questioning. Will withdraw to painful stimuli. Brain CT without contrast did not show any acute hemorrhage, hydrocephalus, or mass effect. She is currently on room air, SpO2 97%. No signs of respiratory distress. Chest x-ray shows mild cardiomegaly with mild pulmonary vascular congestion. No obvious focal infiltrates or evidence of pneumonia. Patient did present with an indwelling urinary catheter. Urinalysis showing pyuria and bacteriuria. CBC: WBC count 8.4, hemoglobin 7.7, hematocrit 24.4, platelets 50,000. PT 21.1. INR 2.1. aPTT 57.2. CMP: Sodium 136, potassium 4.4, chloride 112, serum bicarb 13, BUN 100, creatinine 3.39, glucose 133. Lactic acid level 2.6. LFTs mildly elevated. Troponin 0.019. NT proBNP 5970. Dr. Spencer is going to insert a central line catheter, and the patient will be admitted to the intensive care unit when bed available. On 11/02/2023, the patient is confused and the mental status remains altered. The patient remains in a shock state with profound hypotension, pressor dependence and the patient remains in renal failure. Currently she is on 3 Suboxone by nasal cannula. Urine output is in order of 15 cc throughout the night. The patient remains on a bicarb infusion at rate of 100 cc an hour. Norepinephrine is running at 0.2 mcg/kg/min and the patient was also given vasopressin physiologic dose at 0.04 units/min. The patient has extensive edema in all 4 extremities. The skin is weeping in the lower extremities specially on the right. The white cell count is at 9.5 with a hemoglobin of 7.3 and a platelet count of 107. BUN 39 with a creatinine of 2.25 and a sodium levels at 137 with a potassium level of 3.7. The patient is afebrile at this point in time. The patient remains encephalopathic and extremely lethargic. Labs from today show a white cell count of 16.8 with a hemoglobin 7.5 and a platelet count of 53. Blood gas showed a pH of 7.38 with a pCO2 of 29 and a pO2 of 76. Sodium level is 137, serum bicarb is at 14 with a BUN of 93 and a creatinine of 3.38. Blood cultures have been negative. LFTs are mildly impaired. The patient remains on a combination of IV cefepime and daptomycin. Blood cultures are still pending. Urine culture is positive for group D Enterococcus. On today's evaluation of 11/03/2023, the patient is encephalopathic in a shock state. The patient remains on 3 L of oxygen by nasal cannula. Urine output is absent. The patient remains on a bicarb infusion at rate of 100 cc an hour. Serum bicarb is at 13. Overnight, the patient had wide-complex tachycardia, probably A-fib with aberrancy and the patient was started on amiodarone drip and the cardiac rhythm is currently sinus. The patient remains on norepinephrine which is running at 0.18 mcg/kg/min and the patient is also on vasopressin physiologic fluids. Urine culture was positive for Enterococcus group D. The patient is on daptomycin and cefepime. The white cell count is 16.9 with a hemoglobin 7.1 and platelet count of 45. Sodium is at 137, bicarb 30, anion gap is at 14 with a BUN of 91 and a creatinine of 3.6. LFTs are mildly elevated and abnormal. Chest x-ray findings are essentially unchanged. The patient has developed some small left-sided pleural effusion. Patient was evaluated today on 11/04/2023, patient remains in the ICU, she is extremely encephalopathic, she is requiring norepinephrine at 0.05 mcg/kg/min, on vasopressin 0.04 units/min she is also on bicarb infusion at 100 cc/h 3 A of bicarb in 1 L D5W hemoglobin is quite low today at 5.8 requiring at least 2 units of packed RBCs. Patient is extremely encephalopathic, and I was concerned about whether the patient will require intubation mechanical ventilation, I updated the on her condition at bedside, and the clearly does not want her to be intubated and mechanically ventilated, he is against intubation and he is against CPR. Hence CODE STATUS was changed to DNR CODE STATUS. In the meantime the patient remains on daptomycin and cefepime, she has a group D Enterococcus infection in the urine, she also has cellulitis, patient has a chronic Hester catheter. Nephrology saw the patient, and considering initiation of hemodialysis. Patient is completely anuric. WBC count today is 9.6 hemoglobin 5.8. ABG on 4 L nasal cannula showed a pO2 of 121 pCO2 36 pH of 7.39. Basic metabolic profile is normal bicarb is 22 BUN is 87 creatinine 3.56. Total bilirubin is up to 5.9. AST is 54 ALT is 26, her ammonia level yesterday was normal. Urinalysis was noted, urine culture is growing group D Enterococcus. Blood cultures so far in the last 72 hours have been negative chest x-ray showing mild congestive heart failure/fluid overload Patient was reexamined and evaluated today on 11/05/2023, patient remains quite ill, still hypotensive and requiring pressors she is on vasopressin at 0.03 units/min, she is also on norepinephrine at 0.11 mcg/kg/min. Patient is supposed to have hemodialysis today. She is on 3 L nasal cannula, remains encephalopathic, and her mental status is basically the same. Patient continues to look extremely frail, chronically ill, emaciated, and encephalopathic. Yesterday we changed her CODE STATUS from full code to DNR CODE STATUS. I believe the patient should be considered for hospice, will approach to the regarding comfort care measures as her prognosis seems extremely poor and guarded. WBC count is 11.6 hemoglobin 9.4 basic metabolic profile is normal bicarb is 22 BUN is 59 creatinine 2.78. Patient remains anuric. Has been on hemodialysis since yesterday. Still requiring vasopressor support. Yesterday I consulted neurology, felt that the patient had severe metabolic encephalopathy. Her MRI today showed no intracranial process, questioned left maxillary sinusitis. For her cardiomyopathy patient was seen by cardiology on consultation, felt that the patient had loculated pericardial effusion, and considering her overall condition cardiology is recommending consider hospice care. And I fully agree with that recommendation Objective - Vital Signs Vital signs: Vital Signs Temp 35.4 F L 11/05/23 08:00 Pulse 117 H 11/05/23 11:00 Resp 18 11/05/23 11:00 BP 102/70 11/05/23 11:00 Pulse Ox 97 11/05/23 10:00 FiO2 Intake & Output 11/04/23 11/05/23 11/05/23 18:59 06:59 18:59 Intake Total 2785.979 463.017 30 Output Total 1035 25 20 Balance 1750.979 438.017 10 Weight 91.5 kg 91.5 kg Intake: IV 1580 170 30 .9 @ KVO 230 120 30 Cefepime 1 gm In Sodium 50 50 Chloride 0.9% 50 ml @ 12. 5 mls/hr IVPB Q12HR MEÑO Rx#:[id number] Dextrose 5% in Water 1, 1100 000 ml @ 100 mls/hr IV . [id number] MEÑO with Sodium Bicarb (1 Meq/ml) 150 ml Rx#:[id number] Magnesium Sulfate-D5w Pmx 100 1 gm In Dextrose/Water 1 100ml.bag @ 100 mls/hr IVPB ONCE ONE Rx#: [id number] Potassium Chloride 20 meq 100 In Water For Injection 1 100ml.bag @ 50 mls/hr IVPB ONCE STA Rx#: [id number] Intake, IV Titration 111.979 293.017 Amount Norepinephrine 8 mg In 111.979 185.075 Sodium Chloride 0.9% 250 ml @ 0.03 MCG/KG/MIN 5. 266 mls/hr IV .Q24H ME[facility] Rx#:[id number] Vasopressin 60 unit In 107.942 Sodium Chloride 0.9% 150 ml @ 0.03 UNITS/MIN 4.59 mls/hr IV .Q24H [facility] Rx#: [id number] Blood Product 594 Rc As-1 Unit 310 [id number] Rc Pheresis As-3 Unit 284 [id number] Hemodialysis 500 Output: Urine 35 25 20 Hemodialysis 1000 Other: Voiding Method Indwelling Catheter Indwelling Catheter Indwelling Catheter # Bowel Movements 1 - Exam GENERAL EXAM: 78-year-old encephalopathic, not responding to any verbal stimuli. HEAD: Normocephalic and atraumatic EYES: Anicteric sclerae otherwise negative. NOSE: Clear with pink turbinates. THROAT: No erythema or exudates. NECK: No masses, no JVD. CHEST/lungs: Fine crackles at the bases no rhonchi no wheezes symmetrical chest expansion CVS: S1 and S2 normal with no audible murmur, regular rhythm. No extra heart sounds ABDOMEN: Obese abdomen, soft nontender no megaly no rebound SKIN: Patient has a yellowish skin color./Jaundiced CENTRAL NERVOUS SYSTEM patient is encephalopathic, does not follow any instructions and does not respond to any verbal stimuli EXTREMITIES: 3+ bipedal edema - Labs CBC & Chem 7: 11/05/23 05:32 11/05/23 05:32 Labs: Abnormal Lab Results - Last 24 Hours (Table) 11/04/23 11/04/23 11/04/23 Range/Units 08:05 17:52 22:57 WBC (3.8-10.6) k/uL RBC 2.95 L (3.80-5.40) m/uL Hgb 9.3 L D (11.4-16.0) gm/dL Hct 27.7 L (34.0-46.0) % RDW 21.1 H (11.5-15.5) % Plt Count 25 L (150-450) k/uL Sodium (137-145) mmol/L BUN (7-17) mg/dL Creatinine (0.52-1.04) mg/dL Glucose (74-99) mg/dL POC Glucose (mg/dL) 66 L (70-110) mg/dL Calcium (8.4-10.2) mg/dL Total Bilirubin (0.2-1.3) mg/dL AST (14-36) U/L Alkaline Phosphatase (38-126) U/L Total Protein (6.3-8.2) g/dL Albumin (3.5-5.0) g/dL Crossmatch See Detail 11/04/23 11/05/23 11/05/23 Range/Units 23:14 05:32 05:32 WBC 11.6 H (3.8-10.6) k/uL RBC 3.02 L (3.80-5.40) m/uL Hgb 9.4 L (11.4-16.0) gm/dL Hct 28.7 L (34.0-46.0) % RDW 21.9 H (11.5-15.5) % Plt Count 25 L (150-450) k/uL Sodium 136 L (137-145) mmol/L BUN 59 H (7-17) mg/dL Creatinine 2.78 H (0.52-1.04) mg/dL Glucose 55 L (74-99) mg/dL POC Glucose (mg/dL) 210 H (70-110) mg/dL Calcium 7.5 L (8.4-10.2) mg/dL Total Bilirubin 8.2 H (0.2-1.3) mg/dL AST 55 H (14-36) U/L Alkaline Phosphatase 127 H (38-126) U/L Total Protein 5.1 L (6.3-8.2) g/dL Albumin 2.6 L (3.5-5.0) g/dL Crossmatch 11/05/23 11/05/23 Range/Units 05:58 06:25 WBC (3.8-10.6) k/uL RBC (3.80-5.40) m/uL Hgb (11.4-16.0) gm/dL Hct (34.0-46.0) % RDW (11.5-15.5) % Plt Count (150-450) k/uL Sodium (137-145) mmol/L BUN (7-17) mg/dL Creatinine (0.52-1.04) mg/dL Glucose (74-99) mg/dL POC Glucose (mg/dL) 56 L 141 H (70-110) mg/dL Calcium (8.4-10.2) mg/dL Total Bilirubin (0.2-1.3) mg/dL AST (14-36) U/L Alkaline Phosphatase (38-126) U/L Total Protein (6.3-8.2) g/dL Albumin (3.5-5.0) g/dL Crossmatch Microbiology - Last 24 Hours (Table) 11/04/23 11:23 Urine Culture - Final Urine,Catheterized Assessment and Plan Assessment: Impression: Septic shock most likely source is urinary tract infection secondary to Enterococcus group D patient is receiving daptomycin and cefepime as per infectious disease on the case. Encephalopathy/acute metabolic encephalopathy Atrial fibrillation with RVR required amiodarone for rate control. None anion gap metabolic acidosis requiring bicarb drip, presently on hemod ialysis, off bicarb drip. Acute on chronic kidney injury with anuria, on hemodialysis started on 11/03 History of chronic kidney disease stage IIIb Chronic thrombocytopenia Anasarca with hypoproteinemia and edema History of bronchial asthma History of small hiatal hernia History of laparoscopic cholecystectomy 08/06/2023 History of gastric perforation, requiring repair/June 15 History of inclusion body myositis Medical debility Recommendation: Continue to monitor in the ICU Continue antibiotics/cefepime and daptomycin Continue pressors for hemodynamic support Continue hemodialysis as recommended by nephrology on the case. Continue GI prophylaxis Continue DVT prophylaxis DNR CODE STATUS Will update the on her condition, and will also discussed the option of comfort care/hospice with the today or tomorrow. Overall prognosis is extremely poor Patient is critically ill Critical care time is over 30 minutes Time with Patient: Greater than 30
--- NOTE | 2023-11-05 11:51 | P.PN ---
Subjective Progress Note Date: 11/05/23 I am following up with patient and per ICU nurse, patient breathing is more agonal today. She is getting dialysis currently. And continues to have severe confusion. Objective - Vital Signs Vital signs: Vital Signs Temp 35.4 F L 11/05/23 08:00 Pulse 117 H 11/05/23 11:00 Resp 18 11/05/23 11:00 BP 102/70 11/05/23 11:00 Pulse Ox 97 11/05/23 10:00 FiO2 Intake & Output 11/04/23 11/05/23 11/05/23 18:59 06:59 18:59 Intake Total 2785.979 463.017 30 Output Total 1035 25 20 Balance 1750.979 438.017 10 Weight 91.5 kg 91.5 kg Intake: IV 1580 170 30 .9 @ KVO 230 120 30 Cefepime 1 gm In Sodium 50 50 Chloride 0.9% 50 ml @ 12. 5 mls/hr IVPB Q12HR [facility] Rx#:[id number] Dextrose 5% in Water 1, 1100 000 ml @ 100 mls/hr IV . [id number] ME[facility] with Sodium Bicarb (1 Meq/ml) 150 ml Rx#:[id number] Magnesium Sulfate-D5w Pmx 100 1 gm In Dextrose/Water 1 100ml.bag @ 100 mls/hr IVPB ONCE ONE Rx#: [id number] Potassium Chloride 20 meq 100 In Water For Injection 1 100ml.bag @ 50 mls/hr IVPB ONCE STA Rx#: [id number] Intake, IV Titration 111.979 293.017 Amount Norepinephrine 8 mg In 111.979 185.075 Sodium Chloride 0.9% 250 ml @ 0.03 MCG/KG/MIN 5. 266 mls/hr IV .Q24H [facility] Rx#:[id number] Vasopressin 60 unit In 107.942 Sodium Chloride 0.9% 150 ml @ 0.03 UNITS/MIN 4.59 mls/hr IV .Q24H [facility] Rx#: [id number] Blood Product 594 Rc As-1 Unit 310 [id number] Rc Pheresis As-3 Unit 284 [id number] Hemodialysis 500 Output: Urine 35 25 20 Hemodialysis 1000 Other: Voiding Method Indwelling Catheter Indwelling Catheter Indwelling Catheter # Bowel Movements 1 - Exam General: The patient is lying in bed and does not appear in acute distress. But appears lethargic. Is currently getting dialysis. HENT: Appears jaudince. Respiratory: Has coarse to auscultation Neuro: Very limited. Is severely drowsy and opens eyes but not following commands or verbally responsive. No facial weakness at baseline. Motor: Limited. No spontaneous movement. Some of the Workup during this hospital visit consisted of: Hemoglobin is 5.8. Glucose 55. CT of the head is reported as no acute hemorrhage, hydrocephalus or mass effect. Reviewed the CT head and agree with the report. 2D echo is reported as moderate to large localized posterior pericardial effusion. Total bilirubin 5.9 Ammonia 17. Urine culture is group D Enterococcus Repeat CT head: No acute intracranial process. - Labs CBC & Chem 7: 11/05/23 05:32 11/05/23 05:32 Labs: Abnormal Lab Results - Last 24 Hours (Table) 11/04/23 11/04/23 11/04/23 Range/Units 08:05 17:52 22:57 WBC (3.8-10.6) k/uL RBC 2.95 L (3.80-5.40) m/uL Hgb 9.3 L D (11.4-16.0) gm/dL Hct 27.7 L (34.0-46.0) % RDW 21.1 H (11.5-15.5) % Plt Count 25 L (150-450) k/uL Sodium (137-145) mmol/L BUN (7-17) mg/dL Creatinine (0.52-1.04) mg/dL Glucose (74-99) mg/dL POC Glucose (mg/dL) 66 L (70-110) mg/dL Calcium (8.4-10.2) mg/dL Total Bilirubin (0.2-1.3) mg/dL AST (14-36) U/L Alkaline Phosphatase (38-126) U/L Total Protein (6.3-8.2) g/dL Albumin (3.5-5.0) g/dL Crossmatch See Detail 11/04/23 11/05/23 11/05/23 Range/Units 23:14 05:32 05:32 WBC 11.6 H (3.8-10.6) k/uL RBC 3.02 L (3.80-5.40) m/uL Hgb 9.4 L (11.4-16.0) gm/dL Hct 28.7 L (34.0-46.0) % RDW 21.9 H (11.5-15.5) % Plt Count 25 L (150-450) k/uL Sodium 136 L (137-145) mmol/L BUN 59 H (7-17) mg/dL Creatinine 2.78 H (0.52-1.04) mg/dL Glucose 55 L (74-99) mg/dL POC Glucose (mg/dL) 210 H (70-110) mg/dL Calcium 7.5 L (8.4-10.2) mg/dL Total Bilirubin 8.2 H (0.2-1.3) mg/dL AST 55 H (14-36) U/L Alkaline Phosphatase 127 H (38-126) U/L Total Protein 5.1 L (6.3-8.2) g/dL Albumin 2.6 L (3.5-5.0) g/dL Crossmatch 11/05/23 11/05/23 Range/Units 05:58 06:25 WBC (3.8-10.6) k/uL RBC (3.80-5.40) m/uL Hgb (11.4-16.0) gm/dL Hct (34.0-46.0) % RDW (11.5-15.5) % Plt Count (150-450) k/uL Sodium (137-145) mmol/L BUN (7-17) mg/dL Creatinine (0.52-1.04) mg/dL Glucose (74-99) mg/dL POC Glucose (mg/dL) 56 L 141 H (70-110) mg/dL Calcium (8.4-10.2) mg/dL Total Bilirubin (0.2-1.3) mg/dL AST (14-36) U/L Alkaline Phosphatase (38-126) U/L Total Protein (6.3-8.2) g/dL Albumin (3.5-5.0) g/dL Crossmatch Microbiology - Last 24 Hours (Table) 11/04/23 11:23 Urine Culture - Final Urine,Catheterized Assessment and Plan Assessment: This is an 78-year-old woman who was sent from her ECF for altered mental status. She was found to be in acute urinary tract infection, she has acute kidney injury on chronic kidney insufficiency and pending to have dialysis, she have worsening of anemia and is getting blood transfusion, she has elevated bilirubin and appears jaundice, and the 2D echo shows moderate to large posterior pericardial effusion Mental status due to toxic metabolic encephalopathy. Has elevated bilirubin and appears jaundice, acute kidney injury and currently getting dialysis,, hypoglycemic even as well as septic encephalopathy from acute UTI. Had CT of the head which is unremarkable. Acute urinary tract infection Hypoglycemic events (in mid 50's)) Transaminitis with elevated bilirubin Significant anemia and is getting dialysis Moderate to large pericardial effusion Plan: Currently unable to obtain EEG since getting dialysis but this does not seems like seizure but more toxic-metabolic derangement. Will defer the rest of the medical management to primary and other specialist Overall condition is critical and prognosis appears poor. Per the nurse the ICU attending and estimator printing plate making also feels her prognosis is poor and they will discuss with . Plan discussed with the patient's her nurse Time with Patient: Less than 30
[2023-11-05 12:02] LABS: Glucose,Whole Blood 71 mg/dL (70-110)
[2023-11-05] MEDS: CEFEPIME 1 GM in SODIUM CHLORIDE 0.9% 50 ML IVPB SCH (14:11)
[2023-11-05 16:03] VITALS: TEMP 36.2
[2023-11-05] MEDS: SCOPOLAMINE 1 MG/72 HR PATCH TRANSDERM SCH (17:08)
[2023-11-05 17:14] LABS: Glucose,Whole Blood 47 mg/dL (70-110)
[2023-11-05] MEDS: DEXTROSE 50% SYRINGE 50 ML IVP ONE (17:17)
[2023-11-05 17:26] VITALS: BP 115/67; PULSE 130; RESP 31
[2023-11-05 17:40] LABS: Glucose,Whole Blood 132 mg/dL (70-110)
--- NOTE | 2023-11-05 20:54 | P.DS ---
Providers Date of admission: 11/01/23 06:00 Expected date of discharge: 11/05/23 Attending physician: Zoya Salazar Consults: 11/01/23 07:12 Consult Physician Stat Consulting Provider: Rai Monroy Consult Reason/Comments: Antibiotic management Do you want consulting provider notified?: Yes 11/01/23 07:15 Consult Physician Stat Consulting Provider: Korey Farias Consult Reason/Comments: ICU management Do you want consulting provider notified?: Already Contacted 11/01/23 10:11 Consult Physician Stat Consulting Provider: Danielle Mcconnell Consult Reason/Comments: acute renal failure Do you want consulting provider notified?: Already Contacted 11/03/23 03:22 Consult Physician Stat Consulting Provider: Johann Poole Consult Reason/Comments: Vtach Do you want consulting provider notified?: Yes 11/04/23 10:03 Consult Physician Routine Consulting Provider: Aidan Hood Consult Reason/Comments: AMS Do you want consulting provider notified?: Yes Consult Physician Routine Consulting Provider: Chito Funetes Consult Reason/Comments: Hemodialysis catheter insertion Do you want consulting provider notified?: Yes [facility] care physician[facility] Course: Final diagnosis Acute hypotension and sepsis/septic shock due to UTI and right lower extremity wound with cellulitis, present on admission requiring pressor support Group D Enterococcus urinary tract infection, present on admission Altered mental status with metabolic encephalopathy and infection Acute on chronic renal disease due to ATN secondary to hypotension. Creatinine 3.39 on admission baseline creatinine level around 3. Requiring hemodialysis-to be initiated. Status post hemodialysis catheter placement today 11/04/2023 Wide-complex tachy arrhythmia. New onset Recent history of GI bleed status post EGD showed no active bleeding. Patient was discharged to [facility] on 10/25/2023 baseline hemoglobin around 8.0 CKD stage IIIb Chronic right lower extremity wound with history of debridement Chronic CHF with preserved ejection fraction Paroxysmal atrial fibrillation not on anticoagulation due to recent GI bleed History of gastric perforation with diagnostic laparoscopic repair on 05/26/2023 History of inclusion body myositis Obesity BMI 32.3 Bronchial asthma not in exacerbation Medical debility and bedridden at the skilled nursing Chronic thrombocytopenia with platelet count 32 K Coagulopathy with INR 2.1 on admission Transaminitis Right ear hearing loss Obesity with a BMI of 34.4 DVT prophylaxis GI prophylaxis No code Discharge disposition Patient is being transition to [facility] with comfort measures only. Total time taken is greater than 35 minutes Hospital course Patient is a 78-year-old female with a past medical history of hypertension, atrial fibrillation not on anticoagulation due to recent GI bleed, hypertension, osteoarthritis, HFpEF, previous history of gastric perforation, inclusion body myositis and chronic right lower extremity wound. Patient also has right ear hearing loss. Patient was recently discharged from the hospital on 10/25/2023 to [facility]. She was admitted to hospital due to acute upper GI bleed with dark stools and is status post EGD showed no active bleeding. Patient was sent to ER due to altered mental status and also hypotensive at the facility. Patient's noticed earlier in the day that she did not seem like her usual self. On admission patient was hypotensive with blood pressure 84/47 pulse is 58 respiration 22 and pulse ox 97% on room air. Patient is able to open her but could not communicate. Eyes and tracks but unable to communi mio. On admission chest x-ray showed cardiomegaly with mild vascular congestion. CT head showed no acute hemorrhage, hydrocephalus or mass effect. EKG showed sinus bradycardia with marked sinus arrhythmia CT of the abdominal pelvis showed features of anasarca. Heterogenicity throughout. Correlate with ultrasound. Small amount of ascites as well as bilateral pleural effusions and compressive atelectasis. Foot x-ray showed there is no acute fracture or dislocation. Patient was hypotensive despite fluid boluses. Patient was also hypothermic and bradycardic. She was transferred to MICU for pressor support. Laboratory data showed WBC 8.4 hemoglobin 7.7 and platelets 50 baseline hemoglobin level around 8.0 INR 2.1 Sodium 136 potassium 4.4 chloride 112, BUN 100 and creatinine 3.39, lactic acid 2.6 Magnesium 1.8 total bili 3.0 AST 66 alk phos 149 troponin 0.019 and proBNP 5970 and Pro-Alvin 0.16 Urinalysis showed turbid with 2+ protein and large leukocyte esterase with elevated RBCs and WBCs. 11/02/2023 Patient is in the MICU. Mentation remains the same and patient is still confused. Able to open her eyes. Currently on 2 3 L oxygen via nasal cannula. Patient has only minimal urine output. Continued on bicarb drip (per hour. Pressor support with vasopressin and norepinephrine. Patient is being continued on antibiotics daptomycin and cefepime IV. Urine culture showed group D Enterococcus. Chest x-ray showed unchanged cardiopulmonary status, correlate for CHF/fluid overload. Superimposed infection should be excluded clinically. WBC 16.8 he moglobin 7.5 and platelets 53 sodium 137 potassium 4.3 chloride 103 bicarb is 14 BUN 93 creatinine 3.38 and blood sugar 89 calcium 7.8 total bili 4.0 AST 87 ALT 41 alk phos 139 and albumin 1.8 11/03/2023 Patient is in the MICU. Mental status remains the same. Patient is able to turn her head with upper stimuli. Patient is also hypothermic and is on beta- breanne. Currently requiring 2 L oxygen via nasal cannula. Otherwise patient remains on bicarb drip and is also pressor support. Patient admitted to the near with wide-complex tachycardia likely supra ventricular tachycardia. Patient was started on amiodarone drip. Remains on antibiotics with cefepime and daptomycin. Patient was also started on Lasix 80 mg IV twice daily Patient has very minimal urine output. Nephrology recommending replacement therapy. Pulmonary, cardiology and ID is on board. Laboratory test showed WBC 16.9 hemoglobin 7.1 and platelets 45 sodium 137 potassium 4.1 chloride 110 bicarb is 13 BUN 91 creatinine 3.62 and blood sugar 113 calcium 7.1 magnesium 1.4 AST 84 ALT 1836 and alk phos 126 and albumin 2.0. Current medications reviewed. 11/04/2023 Patient is seen in follow-up today remains in the ICU with multiple medical consultations following. Vascular surgery being consulted for emergent dialysis catheter as would like to proceed with hemodialysis. Current creatinine is 3.56 with a BUN of 87, total bili is noted to be 5.9. Hemoglobin was found to be 5.8 this morning with a platelets of 32 and is being transfused 2 units and recommend follow-up labs. Patient remains on Beatriz hugger and core temp 93.6. Patient continues with local wound care of the right lower extremity and infectious diseases following with concerns of possible urinary tract infection. Urine finalized with group D Enterococcus and is currently maintained on daptomycin along with cefepime. Patient continues to require pressor support and vasopressin with overall extremely poor and guarded prognosis. 11/05/2023 Patient continues to be in the ICU with overall extremely poor prognosis with multiple medical consultations following. Patient is no code and discussing possible comfort care with hospice and has been is agreeable to meet with hospice. Patient meets GIP criteria and will likely switch to comfort care measures only. Please refer to other consultation notes and reel fed printer notes for further HPI. Review of systems: Unable to completely assess as patient is lethargic and mostly obtunded, nonverbal PHYSICAL EXAMINATION: Patient is lying in the bed. Patient is unresponsive and unable to communicate. Mostly obtunded extremely ill-appearing, elderly appearing, obese HEENT: Normocephalic. Neck is supple. Pupils reactive. Nostrils clear. Oral cavity is moist. Neck reveals no JVD, carotid bruits, or thyromegaly. CHEST EXAMINATION: Trachea is central. Symmetrical expansion. Bibasilar diminished sounds with significant congestion noted. CARDIAC: Normal S1, S2 with no gallops. No murmurs ABDOMEN: Soft. Bowel sounds normal. No organomegaly. No abdominal bruits. Extremities: Bilateral 2+ edema with right lower extremity wound on the lateral side. No purulent discharge noted.. No clubbing or cyanosis Neurologically patient is awake alert and oriented x 0. Minimally responsive Skin: No rash. Skin lesions as above. Psychiatric: Could not be assessed. Musculoskeletal: No joint swelling or deformity. Assessment: Acute hypotension and sepsis/septic shock due to UTI and right lower extremity wound with cellulitis, present on admission requiring pressor support Group D Enterococcus urinary tract infection, present on admission Altered mental status with metabolic encephalopathy and infection Acute on chronic renal disease due to ATN secondary to hypotension. Creatinine 3.39 on admission baseline creatinine level around 3. Requiring hemodialysis-to be initiated. Status post hemodialysis catheter placement today 11/04/2023 Wide-complex tachy arrhythmia. New onset Recent history of GI bleed status post EGD showed no active bleeding. Patient was discharged to [facility] on 10/25/2023 baseline hemoglobin around 8.0 CKD stage IIIb Chronic right lower extremity wound with history of debridement Chronic CHF with preserved ejection fraction Paroxysmal atrial fibrillation not on anticoagulation due to recent GI bleed History of gastric perforation with diagnostic laparoscopic repair on 05/26/2023 History of inclusion body myositis Obesity BMI 32.3 Bronchial asthma not in exacerbation Medical debility and bedridden at the skilled nursing Chronic thrombocytopenia with platelet count 32 K Coagulopathy with INR 2.1 on admission Transaminitis Right ear hearing loss Obesity with a BMI of 34.4 DVT prophylaxis GI prophylaxis No code Plan: Patient is in the MICU. Multiple medical consultations following the patient continues to clinically deteriorate. CODE STATUS was addressed and patient is no code and family has met with hospice and meeting criteria for GIP and agreeable to comfort measures only. Patient will be transition to hospice today. Overall extremely poor prognosis The impression and plan of care has been dictated by Kailey Bates, Nurse Practitioner as directed. Dr. Irwin MD I have performed a history and examination and MDM of this patient, discussed the same with the dictator, and agree with the dictator's assessment and plan as written ,documented as a scribe. Based on total visit time, I have performed more than 50% of the visit. Patient Condition at Discharge: Poor Plan - Discharge Summary Discharge Rx Participant: No New Discharge Prescriptions: No Action Albuterol Sulfate [Ventolin HFA] 2 puff INHALATION RT-Q4H PRN PRN Reason: Shortness Of Breath Acetaminophen Tab [Tylenol] 650 mg PO Q6HR PRN PRN Reason: Pain Docusate [Colace] 100 mg PO BID Potassium Chloride ER [K-Dur 20] 20 meq PO DAILY tab Albuterol Nebulized [Ventolin Nebulized] 2.5 mg INHALATION RT-Q4H PRN ml PRN Reason: Shortness Of Breath Furosemide [Lasix] 40 mg PO DIRECTED Dakins (1/2 Strength) 1 applic TOPICAL BID Metoprolol Tartrate [Lopressor] 50 mg PO Q8H Sodium Bicarbonate Tab 650 mg PO BID tab Darbepoetin Luis Alberto [Aranesp] 40 mcg SQ WE Lactose-Reduced Food [Ensure Plus] 237 ml PO QID Midodrine [ProAmatine] 5 mg PO TID Dakins (1/2 Strength) 1 applic TOPICAL DAILY PRN PRN Reason: r leg wounds Discharge Medication List Albuterol Sulfate [Ventolin HFA] 2 puff INHALATION RT-Q4H PRN 08/03/23 [History] Acetaminophen Tab [Tylenol] 650 mg PO Q6HR PRN 10/19/23 [History] Docusate [Colace] 100 mg PO BID 10/19/23 [History] Metoprolol Tartrate [Lopressor] 50 mg PO Q8H 10/19/23 [History] Albuterol Nebulized [Ventolin Nebulized] 2.5 mg INHALATION RT-Q4H PRN ml 10/25/23 [Rx] Potassium Chloride ER [K-Dur 20] 20 meq PO DAILY tab 10/25/23 [Rx] Sodium Bicarbonate Tab 650 mg PO BID tab 10/25/23 [Rx] Dakins (1/2 Strength) 1 applic TOPICAL BID 11/01/23 [History] Dakins (1/2 Strength) 1 applic TOPICAL DAILY PRN 11/01/23 [History] Darbepoetin Luis Alberto [Aranesp] 40 mcg SQ WE 11/01/23 [History] Furosemide [Lasix] 40 mg PO DIRECTED 11/01/23 [History] Lactose-Reduced Food [Ensure Plus] 237 ml PO QID 11/01/23 [History] Midodrine [ProAmatine] 5 mg PO TID 11/01/23 [History] Follow up Appointment(s)/Referral(s): Ricki Hood DO [Primary Care Provider] - [facility], [NON-STAFF] - As Needed Discharge Disposition: HOME WITH HOSPICE
--- NOTE | 2023-11-12 17:45 | P.PN ---
Subjective Progress Note Date: 11/05/23 Principal diagnosis: Reason for follow-up is sepsis Patient is a 78-year-old female with a past medical history significant for heart failure hypertension osteoarthritis lower extremity cellulitis recently admitted to this facility and treated for possible UTI patient was stabilized and discharged to the local shelter patient has been brought back to the ER after midnight for evaluation of mental status changes and hypotension as well as hypothermia requiring admission to the ICU. On today's visit that is 11/05/2023, the patient remains to be hypothermic re quiring warming blanket patient is also requiring pressor support overall requirement of pressor has slightly increased with the patient was getting dialysis as reported by the nursing staff patient is currently on 3 L nasal cannula oxygen remains to be lethargic and cannot provide any history Patient white count is 11.6 creatinine is 2.78 Objective - Vital Signs Vital signs: Vital Signs Temp 94.6 F L 11/05/23 13:09 Pulse 118 H 11/05/23 13:09 Resp 16 11/05/23 13:09 BP 98/55 11/05/23 13:09 Pulse Ox 97 11/05/23 13:00 FiO2 Intake & Output 11/04/23 11/05/23 11/05/23 18:59 06:59 18:59 Intake Total 2785.979 463.017 690 Output Total 1035 25 1125 Balance 1750.979 438.017 -435 Weight 91.5 kg 91.5 kg Intake: IV 1580 170 90 .9 @ KVO 230 120 40 Cefepime 1 gm In Sodium 50 50 Chloride 0.9% 50 ml @ 12. 5 mls/hr IVPB Q12HR [facility] Rx#:[id number] DAPTOmycin 300 mg In 50 Sodium Chloride 0.9% 50 ml @ 100 mls/hr IVPB Q48H [facility] Rx#:[id number] Dextrose 5% in Water 1, 1100 000 ml @ 100 mls/hr IV . [id number] ME[facility] with Sodium Bicarb (1 Meq/ml) 150 ml Rx#:[id number] Magnesium Sulfate-D5w Pmx 100 1 gm In Dextrose/Water 1 100ml.bag @ 100 mls/hr IVPB ONCE ONE Rx#: [id number] Potassium Chloride 20 meq 100 In Water For Injection 1 100ml.bag @ 50 mls/hr IVPB ONCE STA Rx#: [id number] Intake, IV Titration 111.979 293.017 Amount Norepinephrine 8 mg In 111.979 185.075 Sodium Chloride 0.9% 250 ml @ 0.03 MCG/KG/MIN 5. 266 mls/hr IV .Q24H ME[facility] Rx#:[id number] Vasopressin 60 unit In 107.942 Sodium Chloride 0.9% 150 ml @ 0.03 UNITS/MIN 4.59 mls/hr IV .Q24H [facility] Rx#: [id number] Blood Product 594 Rc As-1 Unit 310 [id number] Rc Pheresis As-3 Unit 284 [id number] Hemodialysis 500 600 Output: Urine 35 25 25 Hemodialysis 1000 1100 Other: Voiding Method Indwelling Catheter Indwelling Catheter Indwelling Catheter # Bowel Movements 1 - Exam GENERAL DESCRIPTION: An elderly female lying in bed in no distress RESPIRATORY SYSTEM: Unlabored breathing , decreased breath sounds at bases HEART: S1 S2 regular rate and rhythm , ABDOMEN: Soft , no tenderness EXTREMITIES: Right leg wound is currently dressed nursing staff mention overall less black tissue and no surrounding redness - Labs CBC & Chem 7: 11/05/23 05:32 11/05/23 05:32 Labs: Abnormal Lab Results - Last 24 Hours (Table) 11/04/23 11/04/23 11/04/23 Range/Units 08:05 17:52 22:57 WBC (3.8-10.6) k/uL RBC 2.95 L (3.80-5.40) m/uL Hgb 9.3 L D (11.4-16.0) gm/dL Hct 27.7 L (34.0-46.0) % RDW 21.1 H (11.5-15.5) % Plt Count 25 L (150-450) k/uL Sodium (137-145) mmol/L BUN (7-17) mg/dL Creatinine (0.52-1.04) mg/dL Glucose (74-99) mg/dL POC Glucose (mg/dL) 66 L (70-110) mg/dL Calcium (8.4-10.2) mg/dL Total Bilirubin (0.2-1.3) mg/dL AST (14-36) U/L Alkaline Phosphatase (38-126) U/L Total Protein (6.3-8.2) g/dL Albumin (3.5-5.0) g/dL Crossmatch See Detail 11/04/23 11/05/23 11/05/23 Range/Units 23:14 05:32 05:32 WBC 11.6 H (3.8-10.6) k/uL RBC 3.02 L (3.80-5.40) m/uL Hgb 9.4 L (11.4-16.0) gm/dL Hct 28.7 L (34.0-46.0) % RDW 21.9 H (11.5-15.5) % Plt Count 25 L (150-450) k/uL Sodium 136 L (137-145) mmol/L BUN 59 H (7-17) mg/dL Creatinine 2.78 H (0.52-1.04) mg/dL Glucose 55 L (74-99) mg/dL POC Glucose (mg/dL) 210 H (70-110) mg/dL Calcium 7.5 L (8.4-10.2) mg/dL Total Bilirubin 8.2 H (0.2-1.3) mg/dL AST 55 H (14-36) U/L Alkaline Phosphatase 127 H (38-126) U/L Total Protein 5.1 L (6.3-8.2) g/dL Albumin 2.6 L (3.5-5.0) g/dL Crossmatch 11/05/23 11/05/23 Range/Units 05:58 06:25 WBC (3.8-10.6) k/uL RBC (3.80-5.40) m/uL Hgb (11.4-16.0) gm/dL Hct (34.0-46.0) % RDW (11.5-15.5) % Plt Count (150-450) k/uL Sodium (137-145) mmol/L BUN (7-17) mg/dL Creatinine (0.52-1.04) mg/dL Glucose (74-99) mg/dL POC Glucose (mg/dL) 56 L 141 H (70-110) mg/dL Calcium (8.4-10.2) mg/dL Total Bilirubin (0.2-1.3) mg/dL AST (14-36) U/L Alkaline Phosphatase (38-126) U/L Total Protein (6.3-8.2) g/dL Albumin (3.5-5.0) g/dL Crossmatch Microbiology - Last 24 Hours (Table) 11/04/23 11:23 Urine Culture - Final Urine,Catheterized Assessment and Plan (1) Sepsis Status: Acute Code(s): A41.9 - SEPSIS, UNSPECIFIED ORGANISM SNOMED Code(s): 77937906 (2) UTI (urinary tract infection) Status: Acute Code(s): N39.0 - URINARY TRACT INFECTION, SITE NOT SPECIFIED SNOMED Code(s): 40912355 Plan: 1patient was in the hospital with sepsis in this patient who did have hyp othermia hypotension requiring pressor support with a source of sepsis could be UTI versus right lower extremity wound and cellulitis and the patient chest x- ray did not show any evidence of pneumonia CT abdominal pelvis did show some ascites but did not mention any colitis or abscess 2-patient with a penicillin allergy that will limit the number of antibiotics safe to use 3-renal insufficiency high risk of nephrotoxicity currently being getting ready for hemodialysis 4-blood culture currently pending urine is growing Enterococcus with sensitivities pending 5-patient to continue with cefepime and daptomycin with overall poor prognosis hospice may be a better option discussed with the nursing staff Dictation was produced using [employer] dictation software. please excuse any grammatical, word or spelling errors. Time with Patient: Less than 30
== END 2023-11-05 17:56 | disposition hospice, home (50) | DRG 871 ==
LOC: EC 23:41 → 2SICU 11-01 06:00
PROVIDERS: ADMIT Hospitalist; ATTEND Hospitalist
PROC: 02HV33Z Insertion of Infusion Device into Superior Vena Cava, Percutaneous Approach (ICD-10-PCS; principal; 2023-11-01)
PROC: 3E043XZ Introduction of Vasopressor into Central Vein, Percutaneous Approach (ICD-10-PCS; 2023-11-01)
PROC: 5A1D70Z Performance of Urinary Filtration, Intermittent, Less than 6 Hours Per Day (ICD-10-PCS; 2023-11-04)
DX: A41.81 Sepsis due to Enterococcus (principal); G92.8 Other toxic encephalopathy; G93.41 Metabolic encephalopathy; R65.21 Severe sepsis with septic shock; J96.01 Acute respiratory failure with hypoxia; N17.0 Acute kidney failure with tubular necrosis; N18.6 End stage renal disease; N39.0 Urinary tract infection, site not specified; D62 Acute posthemorrhagic anemia; D68.9 Coagulation defect, unspecified; E87.20 Acidosis, unspecified; I31.39 Other pericardial effusion (noninflammatory); I13.2 Hypertensive heart and chronic kidney disease with heart failure and with stage 5 chronic kidney disease, or end stage renal disease; I42.9 Cardiomyopathy, unspecified; I47.10 Supraventricular tachycardia, unspecified; I50.32 Chronic diastolic (congestive) heart failure; J98.11 Atelectasis; L03.115 Cellulitis of right lower limb; I47.20 Ventricular tachycardia, unspecified; L97.212 Non-pressure chronic ulcer of right calf with fat layer exposed; L97.812 Non-pressure chronic ulcer of other part of right lower leg with fat layer exposed; R64 Cachexia; Z51.5 Encounter for palliative care; Z66 Do not resuscitate; E88.09 Other disorders of plasma-protein metabolism, not elsewhere classified; G72.41 Inclusion body myositis [IBM]; K72.90 Hepatic failure, unspecified without coma; E77.8 Other disorders of glycoprotein metabolism; I83.009 Varicose veins of unspecified lower extremity with ulcer of unspecified site; J45.909 Unspecified asthma, uncomplicated; Z68.34 Body mass index [BMI] 34.0-34.9, adult; D69.6 Thrombocytopenia, unspecified; E11.22 Type 2 diabetes mellitus with diabetic chronic kidney disease; E66.9 Obesity, unspecified; H91.91 Unspecified hearing loss, right ear; I44.0 Atrioventricular block, first degree; I44.7 Left bundle-branch block, unspecified; K21.9 Gastro-esophageal reflux disease without esophagitis; M19.90 Unspecified osteoarthritis, unspecified site; I48.0 Paroxysmal atrial fibrillation; R68.0 Hypothermia, not associated with low environmental temperature; K29.70 Gastritis, unspecified, without bleeding; K29.80 Duodenitis without bleeding; K44.9 Diaphragmatic hernia without obstruction or gangrene; R74.01 Elevation of levels of liver transaminase levels; T36.1X5A Adverse effect of cephalosporins and other beta-lactam antibiotics, initial encounter; Z74.01 Bed confinement status; Z79.01 Long term (current) use of anticoagulants; Z79.899 Other long term (current) drug therapy; Z88.0 Allergy status to penicillin; Z88.8 Allergy status to other drugs, medicaments and biological substances
CPT/HCPCS: 36415; 36600; 70450; 71045; 74176; 80048; 80053; 81001; 82140; 82805; 83605; 83735; 83880; 84145; 84484; 85025; 85027; 85610; 85730; 86706; 86850; 86900; 86901; 86920; 87040; 87086; 87340; 90935; 93005; 93308; 94640; 96361; 96365; 99291

== ENCOUNTER 2023-11-05 17:51 | Inpatient (IN) | payer MEDICAID ==
[2023-11-05] MEDS ORDERED: MORPHINE SULFATE 4 MG/ML SYRINGE IV PRN (17:52)
[2023-11-05] MEDS ORDERED: DRY MOUTH SPRAY 44.3 SPRAY/44.3 ML SPRAY MUCOUS MEM PRN (17:52)
[2023-11-05] MEDS ORDERED: GLYCOPYRROLATE 0.2 MG/ML 2 ML VIAL IVP PRN (17:52)
[2023-11-05] MEDS ORDERED: ACETAMINOPHEN SUPPOSITORY 650 MG SUPP RECTAL PRN (17:52)
[2023-11-05] MEDS ORDERED: ONDANSETRON 4 MG/2 ML VIAL IVP PRN (17:52)
[2023-11-05] MEDS ORDERED: ATROPINE OPHTH SOLN 1% 5ML BTL SUBLINGUAL PRN (17:52)
[2023-11-05] MEDS ORDERED: ARTIFICIAL TEARS-HYPROMELLOSE DROPS 15 ML BTL BOTH EYES PRN (17:52)
[2023-11-05] MEDS ORDERED: LORazepam 2 MG/ML INJ IV PRN (17:52)
[2023-11-05 18:20] VITALS: BP 110/73; PULSE 131; RESP 19; TEMP 98.1
[2023-11-05] MEDS: SCOPOLAMINE 1 MG/72 HR PATCH TRANSDERM SCH (18:35)
[2023-11-05] MEDS: MORPHINE SULFATE (100 MG/2 ML) 100 MG in SODIUM CHLORIDE 0.9% 100 ML IV SCH (18:43)
--- NOTE | 2023-11-05 20:56 | P.HPIM ---
History of Present Illness H&P Date: 11/05/23 Patient is a 78-year-old female with a past medical history of hypertension, atrial fibrillation not on anticoagulation due to recent GI bleed, hypertension, osteoarthritis, HFpEF, previous history of gastric perforation, inclusion body myositis and chronic right lower extremity wound. Patient also has right ear hearing loss. Patient was recently discharged from the hospital on 10/25/2023 to [facility]. She was admitted to hospital due to acute upper GI bleed with dark stools and is status post EGD showed no active bleeding. Patient was sent to ER due to altered mental status and also hypotensive at the facility. Patient's noticed earlier in the day that she did not seem like her usual self. On admission patient was hypotensive with blood pressure 84/47 pulse is 58 respiration 22 and pulse ox 97% on room air. Patient is able to open her but could not communicate. Eyes and tracks but unable to communi mio. On admission chest x-ray showed cardiomegaly with mild vascular congestion. CT head showed no acute hemorrhage, hydrocephalus or mass effect. EKG showed sinus bradycardia with marked sinus arrhythmia CT of the abdominal pelvis showed features of anasarca. Heterogenicity throughout. Correlate with ultrasound. Small amount of ascites as well as bilateral pleural effusions and compressive atelectasis. Foot x-ray showed there is no acute fracture or dislocation. Patient was hypotensive despite fluid boluses. Patient was also hypothermic and bradycardic. She was transferred to MICU for pressor support. Laboratory data showed WBC 8.4 hemoglobin 7.7 and platelets 50 baseline hemoglobin level around 8.0 INR 2.1 Sodium 136 potassium 4.4 chloride 112, BUN 100 and creatinine 3.39, lactic acid 2.6 Magnesium 1.8 total bili 3.0 AST 66 alk phos 149 troponin 0.019 and proBNP 5970 and Pro-Alvin 0.16 Urinalysis showed turbid with 2+ protein and large leukocyte esterase with elevated RBCs and WBCs. 11/02/2023 Patient is in the MICU. Mentation remains the same and patient is still confused. Able to open her eyes. Currently on 2 3 L oxygen via nasal cannula. Patient has only minimal urine output. Continued on bicarb drip (per hour. Pressor support with vasopressin and norepinephrine. Patient is being continued on antibiotics daptomycin and cefepime IV. Urine culture showed group D Enterococcus. Chest x-ray showed unchanged cardiopulmonary status, correlate for CHF/fluid overload. Superimposed infection should be excluded clinically. WBC 16.8 hemoglobin 7.5 and platelets 53 sodium 137 potassium 4.3 chloride 103 bicarb is 14 BUN 93 creatinine 3.38 and blood sugar 89 calcium 7.8 total bili 4.0 AST 87 ALT 41 alk phos 139 and albumin 1.8 11/03/2023 Patient is in the MICU. Mental status remains the same. Patient is able to turn her head with upper stimuli. Patient is also hypothermic and is on beta- breanne. Currently requiring 2 L oxygen via nasal cannula. Otherwise patient remains on bicarb drip and is also pressor support. Patient admitted to the near with wide-complex tachycardia likely supra ventricular tachycardia. Patient was started on amiodarone drip. Remains on antibiotics with cefepime and daptomycin. Patient was also started on Lasix 80 mg IV twice daily Patient has very minimal urine output. Nephrology recommending replacement therapy. Pulmonary, cardiology and ID is on board. Laboratory test showed WBC 16.9 hemoglobin 7.1 and platelets 45 sodium 137 potassium 4.1 chloride 110 bicarb is 13 BUN 91 creatinine 3.62 and blood sugar 113 calcium 7.1 magnesium 1.4 AST 84 ALT 1836 and alk phos 126 and albumin 2.0. Current medications reviewed. 11/04/2023 Patient is seen in follow-up today remains in the ICU with multiple medical consultations following. Vascular surgery being consulted for emergent dialysis catheter as would like to proceed with hemodialysis. Current creatinine is 3.56 with a BUN of 87, total bili is noted to be 5.9. Hemoglobin was found to be 5.8 this morning with a platelets of 32 and is being transfused 2 units and recommend follow-up labs. Patient remains on Beatriz hugger and core temp 93.6. Patient continues with local wound care of the right lower extremity and infectious diseases following with concerns of possible urinary tract infection. Urine finalized with group D Enterococcus and is currently maintained on daptomycin along with cefepime. Patient continues to require pressor support and vasopressin with overall extremely poor and guarded prognosis. 11/05/2023 Patient continues to be in the ICU with overall extremely poor prognosis with multiple medical consultations following. Patient is no code and discussing possible comfort care with hospice and has been is agreeable to meet with hospice. Patient meets GIP criteria and will likely switch to comfort care measures only. Please refer to other consultation notes and jewel bearing driller notes for further HPI. Review of systems: Unable to completely assess as patient is lethargic and mostly obtunded, nonverbal PHYSICAL EXAMINATION: Patient is lying in the bed. Patient is unresponsive and unable to communicate. Mostly obtunded extremely ill-appearing, elderly appearing, obese HEENT: Normocephalic. Neck is supple. Pupils reactive. Nostrils clear. Oral cavity is moist. Neck reveals no JVD, carotid bruits, or thyromegaly. CHEST EXAMINATION: Trachea is central. Symmetrical expansion. Bibasilar diminished sounds with significant congestion noted. CARDIAC: Normal S1, S2 with no gallops. No murmurs ABDOMEN: Soft. Bowel sounds normal. No organomegaly. No abdominal bruits. Extremities: Bilateral 2+ edema with right lower extremity wound on the lateral side. No purulent discharge noted.. No clubbing or cyanosis Neurologically patient is awake alert and oriented x 0. Minimally responsive Skin: No rash. Skin lesions as above. Psychiatric: Could not be assessed. Musculoskeletal: No joint swelling or deformity. Assessment: Acute hypotension and sepsis/septic shock due to UTI and right lower extremity wound with cellulitis, present on admission requiring pressor support Group D Enterococcus urinary tract infection, present on admission Altered mental status with metabolic encephalopathy and infection Acute on chronic renal disease due to ATN secondary to hypotension. Creatinine 3.39 on admission baseline creatinine level around 3. Requiring hemodialysis-to be initiated. Status post hemodialysis catheter placement today 11/04/2023 Wide-complex tachy arrhythmia. New onset Recent history of GI bleed status post EGD showed no active bleeding. Patient was discharged to [facility] on 10/25/2023 baseline hemoglobin around 8.0 CKD stage IIIb Chronic right lower extremity wound with history of debridement Chronic CHF with preserved ejection fraction Paroxysmal atrial fibrillation not on anticoagulation due to recent GI bleed History of gastric perforation with diagnostic laparoscopic repair on 05/26/2023 History of inclusion body myositis Obesity BMI 32.3 Bronchial asthma not in exacerbation [facility] Chronic thrombocytopenia with platelet count 32 K Coagulopathy with INR 2.1 on admission Transaminitis Right ear hearing loss Obesity with a BMI of 34.4 DVT prophylaxis GI prophylaxis No code Plan: Patient is in the MICU. Multiple medical consultations following the patient continues to clinically deteriorate. CODE STATUS was addressed and patient is no code and family has met with hospice and meeting criteria for GIP and agreeable to comfort measures only. Patient will be transition to hospice today. Overall extremely poor prognosis The impression and plan of care has been dictated by Kailey Bates Nurse Pr actitioner as directed. Dr. Irwin MD I have performed a history and examination and MDM of this patient, discussed the same with the dictator, and agree with the dictator's assessment and plan as written ,documented as a scribe. Based on total visit time, I have performed more than 50% of the visit. 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 History of Any Multi-Drug Resistant Organisms: None Reported Past Surgical History: Cholecystectomy, Heart Catheterization Additional Past Surgical History / Comment(s): EYE SURGERY DUE TO INJURY, EGD, COLONOSCOPY, BONE MARROW BIOPSY, cataracts, muscle biopsy, Past Anesthesia/Blood Transfusion Reactions: No Reported Reaction Past Psychological History: No Psychological Hx Reported Smoking Status: Never smoker Past Alcohol Use History: Occasional Additional Past Alcohol Use History / Comment(s): "1 glass of wine per day most days but not all". Past Drug Use History: None Reported - Past Family History Sister(s) Family Medical History: Cancer Additional Family Medical History / Comment(s): LEUKEMIA- at age 42 Brother(s) Family Medical History: Cancer Additional Family Medical History / Comment(s): with unknown type CA at age 60s Medications and Allergies Home Medications Medication Instructions Recorded Confirmed Type Albuterol Sulfate [Ventolin HFA] 2 puff INHALATION RT-Q4H PRN 08/03/23 11/01/23 History Acetaminophen Tab [Tylenol] 650 mg PO Q6HR PRN 10/19/23 11/01/23 History Docusate [Colace] 100 mg PO BID 10/19/23 11/01/23 History Metoprolol Tartrate [Lopressor] 50 mg PO Q8H 10/19/23 11/01/23 History Albuterol Nebulized [Ventolin 2.5 mg INHALATION RT-Q4H PRN ml 10/25/23 11/01/23 Rx Nebulized] Potassium Chloride ER [K-Dur 20] 20 meq PO DAILY tab 10/25/23 11/01/23 Rx Sodium Bicarbonate Tab 650 mg PO BID tab 10/25/23 11/01/23 Rx Dakins (1/2 Strength) 1 applic TOPICAL BID 11/01/23 11/01/23 History Dakins (1/2 Strength) 1 applic TOPICAL DAILY PRN 11/01/23 11/01/23 History Darbepoetin Luis Alberto [Aranesp] 40 mcg SQ WE 11/01/23 11/01/23 History Furosemide [Lasix] 40 mg PO DIRECTED 11/01/23 11/01/23 History Lactose-Reduced Food [Ensure Plus] 237 ml PO QID 11/01/23 11/01/23 History Midodrine [ProAmatine] 5 mg PO TID 11/01/23 11/01/23 History Allergies Allergy/AdvReac Type Severity Reaction Status Date / Time omeprazole [From Prilosec] Allergy Unknown Rash/Hives, Verified 10/19/23 09:55 TONGUE SWELLLING omeprazole magnesium Allergy Unknown Rash/Hives, Verified 10/19/23 09:55 [From Prilosec] TONGUE SWELLLING Penicillins Allergy Unknown Rash/Hives/ Verified 10/19/23 09:55 Itching amlodipine Allergy fide pedal Verified 10/19/23 09:55 edema, loss voice carvedilol Allergy shortness Verified 10/19/23 09:55 of breath lisinopril Allergy Unknown Verified 10/19/23 09:55 Physical Exam Vitals: Vital Signs Temp Pulse Resp BP Pulse Ox 11/05/23 18:18 98.1 F 131 H 19 110/73 97 Intake and Output 11/05/23 11/05/23 11/05/23 06:59 14:59 22:59 Intake Total 2.788 Balance 2.788 Intake: Intake, IV Titration 2.788 Amount Morphine Sulfate (100 mg/ 2.788 2 ml) 100 mg In Sodium Chloride 0.9% 100 ml @ 1 MG/HR 1.02 mls/hr IV . Q24H [facility] Rx#:[id number] Other: Weight 91.5 kg
--- NOTE | 2023-11-06 15:01 | P.DS ---
Providers Date of admission: 11/05/23 17:57 Expected date of discharge: 11/06/23 Attending physician: Baltazar Gayle Primary care physician: Ricki Hood [facility] Course: Preliminary cause of Urinary tract infection sepsis and septic shock Final diagnosis Acute hypotension and sepsis/septic shock due to UTI and right lower extremity wound with cellulitis, present on admission requiring pressor support Group D Enterococcus urinary tract infection, present on admission Altered mental status with metabolic encephalopathy and infection Acute on chronic renal disease due to ATN secondary to hypotension. Creatinine 3.39 on admission baseline creatinine level around 3. Requiring hemodialysis-to be initiated. Status post hemodialysis catheter placement today 11/04/2023 Wide-complex tachy arrhythmia. New onset Recent history of GI bleed status post EGD showed no active bleeding. Patient was discharged to [facility] on 10/25/2023 baseline hemoglobin around 8.0 CKD stage IIIb Chronic right lower extremity wound with history of debridement Chronic CHF with preserved ejection fraction Paroxysmal atrial fibrillation not on anticoagulation due to recent GI bleed History of gastric perforation with diagnostic laparoscopic repair on 05/26/2023 History of inclusion body myositis Obesity BMI 32.3 Bronchial asthma not in exacerbation Medical debility and bedridden at the detention Chronic thrombocytopenia with platelet count 32 K Coagulopathy with INR 2.1 on admission Transaminitis Right ear hearing loss Obesity with a BMI of 34.4 DVT prophylaxis GI prophylaxis No code Discharge disposition Patient has . According to nursing documentation, time of is 8 on 11/05/2023. Patient had been on [facility] hospice comfort measures only. Total time taken is greater than 35 minutes. Hospital course This is a 78-year-old female who was recently admitted with increasing altered mentation with sepsis with septic shock secondary to acute urinary tract infection group D Enterococcus with acute on chronic renal disease with acute tubular necrosis with hypotension requiring pressor support. Patient's kidney functions continue to deteriorate and initiated on hemodialysis and continued to show clinical deterioration. Patient had been on antibiotics with multiple medical consultations following. Patient had also had a chronic right lower extremity wound with history of debridement and wound care had been ongoing at the [facility]. Patient had a recent hospitalization with concerns of GI bleed and underwent EGD showing no active bleeding noted. Patient with chronic CHF as well as chronic thrombocytopenia and platelets less than 30 on admission. Patient with transaminitis and multiple other electrolyte abnormalities. Patient requiring pressor support on hemodialysis and also continues to be hypothermic and urine output has significantly reduced and having no output. Multiple consultations following recommending hospice with comfort measures and initially family wanted to proceed with full code. Further discussion was had regarding overall prognosis with significant comorbidities and continued clinical decline with multiple hospitalizations they were agreeable to no code. Hemodialysis was attempted although patient not tolerating very well continue to show decline and family were agreeable to hospice. Patient family met with [facility] hospice and GIP appropriate and patient was started on comfort measures only. Again time of according to nursing documentation was 2248 on 11/05/2023. Family was present. Please refer to other consultation notes for further HPI. Please refer to medication reconciliation sheet for a list of medications. The impression and plan of care has been dictated by Kailey Bates, Nurse Practitioner as directed. Dr. Irwin MD I have performed a history and examination and MDM of this patient, discussed the same with the dictator, and agree with the dictator's assessment and plan as written ,documented as a scribe. Based on total visit time, I have performed more than 50% of the visit. Patient Condition at Discharge: Poor Plan - Discharge Summary New Discharge Prescriptions: No Action Albuterol Sulfate [Ventolin HFA] 2 puff INHALATION RT-Q4H PRN PRN Reason: Shortness Of Breath Acetaminophen Tab [Tylenol] 650 mg PO Q6HR PRN PRN Reason: Pain Docusate [Colace] 100 mg PO BID Potassium Chloride ER [K-Dur 20] 20 meq PO DAILY tab Albuterol Nebulized [Ventolin Nebulized] 2.5 mg INHALATION RT-Q4H PRN ml PRN Reason: Shortness Of Breath Furosemide [Lasix] 40 mg PO DIRECTED Dakins (1/2 Strength) 1 applic TOPICAL BID Metoprolol Tartrate [Lopressor] 50 mg PO Q8H Sodium Bicarbonate Tab 650 mg PO BID tab Darbepoetin Luis Alberto [Aranesp] 40 mcg SQ WE Lactose-Reduced Food [Ensure Plus] 237 ml PO QID Midodrine [ProAmatine] 5 mg PO TID Dakins (1/2 Strength) 1 applic TOPICAL DAILY PRN PRN Reason: r leg wounds Discharge Medication List Albuterol Sulfate [Ventolin HFA] 2 puff INHALATION RT-Q4H PRN 08/03/23 [History] Acetaminophen Tab [Tylenol] 650 mg PO Q6HR PRN 10/19/23 [History] Docusate [Colace] 100 mg PO BID 10/19/23 [History] Metoprolol Tartrate [Lopressor] 50 mg PO Q8H 10/19/23 [History] Albuterol Nebulized [Ventolin Nebulized] 2.5 mg INHALATION RT-Q4H PRN ml 10/25/23 [Rx] Potassium Chloride ER [K-Dur 20] 20 meq PO DAILY tab 10/25/23 [Rx] Sodium Bicarbonate Tab 650 mg PO BID tab 10/25/23 [Rx] Dakins (1/2 Strength) 1 applic TOPICAL BID 11/01/23 [History] Dakins (1/2 Strength) 1 applic TOPICAL DAILY PRN 11/01/23 [History] Darbepoetin Luis Alberto [Aranesp] 40 mcg SQ WE 11/01/23 [History] Furosemide [Lasix] 40 mg PO DIRECTED 11/01/23 [History] Lactose-Reduced Food [Ensure Plus] 237 ml PO QID 11/01/23 [History] Midodrine [ProAmatine] 5 mg PO TID 11/01/23 [History] Discharge Disposition: - Preliminary Cause of Preliminary Cause of : Urinary tract infection with sepsis and septic shock
== END 2023-11-05 22:48 | disposition expired | DRG 951 ==
LOC: 2SICU 17:57
PROVIDERS: ADMIT Internal Medicine; ATTEND Internal Medicine
DX: Z51.5 Encounter for palliative care (principal); A41.81 Sepsis due to Enterococcus; N17.0 Acute kidney failure with tubular necrosis; R65.21 Severe sepsis with septic shock; G93.41 Metabolic encephalopathy; K92.2 Gastrointestinal hemorrhage, unspecified; R18.8 Other ascites; D68.9 Coagulation defect, unspecified; I13.0 Hypertensive heart and chronic kidney disease with heart failure and stage 1 through stage 4 chronic kidney disease, or unspecified chronic kidney disease; I50.32 Chronic diastolic (congestive) heart failure; L03.115 Cellulitis of right lower limb; I47.10 Supraventricular tachycardia, unspecified; N39.0 Urinary tract infection, site not specified; J98.11 Atelectasis; D69.6 Thrombocytopenia, unspecified; G72.41 Inclusion body myositis [IBM]; S81.801A Unspecified open wound, right lower leg, initial encounter; N18.32 Chronic kidney disease, stage 3b; I48.0 Paroxysmal atrial fibrillation; J45.909 Unspecified asthma, uncomplicated; E66.9 Obesity, unspecified; Z68.34 Body mass index [BMI] 34.0-34.9, adult; Z99.2 Dependence on renal dialysis; Z66 Do not resuscitate; H91.91 Unspecified hearing loss, right ear; M19.90 Unspecified osteoarthritis, unspecified site; R74.01 Elevation of levels of liver transaminase levels; Z79.899 Other long term (current) drug therapy; Z74.01 Bed confinement status; Z88.0 Allergy status to penicillin; Z88.8 Allergy status to other drugs, medicaments and biological substances